=== PATIENT | male | born 1945 | race Caucasian/White ===

== ENCOUNTER → 2017-02-27 | Outpatient (CLI) | payer MEDICARE, OTHER ==
--- NOTE | 2017-02-27 13:35 | MR ---
EXAMINATION TYPE: MR lumbar spine wo con DATE OF EXAM: 02/27/2017 COMPARISON: NONE HISTORY: Sciatica, right side TECHNIQUE: Multiplanar, multisequence images of the lumbar spine were acquired. Multilevel intervertebral disc desiccation is present. Vertebral bodies maintain normal vertebral bod y height and alignment. Bone marrow signal is unremarkable other than T2/T1 hyperintense vertebral pablito dy hemangiomas at L5 and L2 as well as degenerative endplate change and Schmorl's node of the inferio r endplate of L3. Conus medullaris has a normal appearance and terminates at T12-L1. 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 L1-L2: Left eccentric disc bulge is present as well as mild facet arthropathy and ligamentum flavum b uckling. No neural foraminal narrowing or spinal canal stenosis at this level. L2-L3: Annular tear is present within a broad-based and bilobed disc bulge that in combination with f acet arthropathy and ligamentum flavum buckling create mild bilateral neural foraminal narrowing as w ell as mild spinal canal stenosis with buckling of the thecal sac and filum terminale. L3-L4: There is a right lateral disc herniation superimposed on a large broad-based disc bulge. Facet arthropathy and ligamentum flavum buckling contribute to moderate to severe right neural foraminal n arrowing with impression upon the exiting L3 nerve root on the right as well as moderate to severe le ft neural foraminal narrowing also impressing upon the exiting L3 nerve root. There is resultant mode rate spinal canal stenosis with buckling of the thecal sac and filum terminale. L4-L5: Broad-based disc bulge, ligamentum flavum buckling and facet arthropathy creates moderate bila teral neural foraminal narrowing and mild spinal canal stenosis. No discrete herniation. L5-S1: Broad-based disc bulge is seen without neural foraminal narrowing or spinal canal stenosis. Mi ld facet arthropathy. Lumbar segments are intact. No paraspinal masses are identified. Conus medullaris has a normal appe arance. IMPRESSION: 1. Right lateral disc herniation at L3-L4 superimposed on a large broad-based disc bulge creating mod erate to severe bilateral neural foraminal narrowing impressing upon the exiting L3 nerve roots and r esulting in moderate spinal canal stenosis with buckling of the thecal sac and filum terminale. 2. Multilevel degenerative disc disease creating variable degrees of neural foraminal narrowing as de scribed above and mild spinal canal stenosis at L2-L3. Annular tear is also seen at L2-L3. 3. Horseshoe kidneys.
== END | disposition home or self-care (01) ==
LOC: RADMRIMAIN 11:38
PROVIDERS: ATTEND Internal Medicine
DX: M48.06 Spinal stenosis, lumbar region (principal); M99.73 Connective tissue and disc stenosis of intervertebral foramina of lumbar region; M51.16 Intervertebral disc disorders with radiculopathy, lumbar region
CPT/HCPCS: 72148

== ENCOUNTER → 2017-06-28 | Outpatient (CLI) | payer MEDICARE, OTHER ==
[2017-06-28 15:29] LABS: Basophils % (A) 0 %; Eosinophils # (A) 0.2 k/uL (0-0.7); Eosinophils % (A) 2 %; HCT 41.3 % (39.0-53.0); HGB 13.9 gm/dL (13.0-17.5); Lymphocytes # (A) 2.2 k/uL (1.0-4.8); Lymphocytes % (A) 28 %; MCH 30.7 pg (25.0-35.0); MCHC 33.6 g/dL (31.0-37.0); MCV 91.3 fL (80.0-100.0); Mean Platelet Volume 7.8; Monocytes # (A) 0.6 k/uL (0-1.0); Monocytes % (A) 7 %; Neutrophils # (A) 4.7 k/uL (1.3-7.7); Neutrophils % (A) 60 %; Platelet Count 256 k/uL (150-450); RBC 4.52 m/uL (4.30-5.90); RDW 13.6 % (11.5-15.5); WBC 7.9 k/uL (3.8-10.6)
[2017-06-28 15:38] LABS: Appearance,Urine Clear (Clear); Bilirubin,Urine Negative (Negative); Blood,Urine Negative (Negative); Color,Urine Yellow; Glucose,Urine (UA) Negative (Negative); Ketones,Urine Negative (Negative); Leukocyte Esterase,Urine Negative (Negative); Nitrite,Urine Negative (Negative); Partial Thromboplastin Time 22.4 sec (22.0-30.0); Protein,Urine Trace (Negative); Prothrombin Time 9.6 sec (9.0-12.0); Specific Gravity,Urine 1.013 (1.001-1.035); Urobilinogen,Urine <2.0 mg/dL (<2.0)
[2017-06-28 15:42] LABS: Anion Gap 11 mmol/L; Blood Urea Nitrogen 16 mg/dL (9-20); Calcium 10.4 mg/dL (8.4-10.2); Carbon Dioxide 29 mmol/L (22-30); Chloride 102 mmol/L (98-107); Glucose 154 mg/dL (74-99); Potassium 4.9 mmol/L (3.5-5.1); Sodium 142 mmol/L (137-145)
--- NOTE | 2017-06-28 16:12 | XR ---
EXAMINATION TYPE: XR chest 2V DATE OF EXAM: 06/28/2017 COMPARISON: None HISTORY: 71-year-old male presurgical evaluation TECHNIQUE: Frontal and lateral views FINDINGS: The cardiomediastinal silhouette, aorta, and pulmonary vasculature are within normal limits. Some str lisa atelectasis at the peripheral left base. Otherwise, lungs and pleural spaces are clear. IMPRESSION: No acute cardiopulmonary process.
== END | disposition home or self-care (01) ==
LOC: LABPAT 14:54
PROVIDERS: ATTEND Orthopaedic Surgery Orthopaedic Surgery of the Spine
DX: Z01.818 Encounter for other preprocedural examination (principal); G95.9 Disease of spinal cord, unspecified; Z01.812 Encounter for preprocedural laboratory examination
CPT/HCPCS: 36415; 71046; 80048; 81003; 85025; 85610; 85730; 86850; 86900; 86901

== ENCOUNTER 2017-07-07 12:23 | Day surgery (SDC) | payer MEDICARE, OTHER ==
[2017-06-30 09:32] VITALS: BMI 31.3
[~2017-07-07 12:23] MED LIST: BACITRACIN 50,000 UNIT, POLYMYXIN B 500,000 UNIT in SODIUM CHLORIDE 0.9% IRRIGATIO 1,00... IRRIGATION ONE; ceFAZolin IN SWFI 2 GM/20 ML SYRINGE IVP ONE
[2017-07-07] MEDS ORDERED: LIDOCAINE 1% 20 ML VIAL (10MG/ML) FOR IV START INTRADERMA ONE (13:25)
[2017-07-07] MEDS: LACTATED RINGERS 1,000 ML IV SCH (13:25)
[2017-07-07 13:33] LABS: Glucose,Whole Blood 154 mg/dL (75-99)
[2017-07-07 15:33] LABS: Glucose,Whole Blood 130 mg/dL (75-99)
[2017-07-07] MEDS ORDERED: fentaNYL (PF) 50 MCG/ML 2 ML AMP ONE (15:56)
[2017-07-07] MEDS ORDERED: SUCCINYLCHOLINE CHLORIDE 100 MG/5 ML SYR IV ONE (15:56)
[2017-07-07] MEDS ORDERED: MIDAZOLAM 2 MG/2 ML VIAL ONE (15:56)
[2017-07-07] MEDS ORDERED: HYDROmorphone (PF) 1 MG/ML ONE (15:56)
[2017-07-07] MEDS ORDERED: ePHEDrine SULFATE/0.9% NACL/PF 50 MG/5 ML SYRINGE IV ONE (15:56)
[2017-07-07] MEDS ORDERED: KETAMINE 10 MG/ML 20 ML VIAL ONE (15:56)
[2017-07-07] MEDS ORDERED: ONDANSETRON 4 MG/2 ML VIAL ONE (15:56)
[2017-07-07] MEDS ORDERED: ROCURONIUM BROMIDE 10 MG/ML 10 ML VIAL IV ONE (15:56)
[2017-07-07] MEDS ORDERED: NEOSTIGMINE 1 MG/ML 10 ML VIAL ONE (15:56)
[2017-07-07] MEDS ORDERED: PHENYLEPHRINE-0.9% NACL SYG 1 MG/10 ML SYRINGE ONE (15:56)
[2017-07-07] MEDS ORDERED: LIDOCAINE 1% INJ 10MG/ML (20 ML MDV) ONE (15:56)
[2017-07-07] MEDS ORDERED: GLYCOPYRROLATE 0.2 MG/ML 2 ML VIAL ONE (15:56)
[2017-07-07] MEDS ORDERED: PROPOFOL 10 MG/ML 20 ML VIAL IV ONE (15:56)
[2017-07-07] MEDS ORDERED: THROMBIN (BOVINE) 5,000 UNIT VIAL TOPICAL ONE (16:20)
[2017-07-07] MEDS ORDERED: LIDOCAINE 0.5% (PF) 5 MG/ML (50 ML SDV) SQ ONE (16:20)
[2017-07-07] MEDS ORDERED: GELATIN SPONGE,ABSORB (LARGE) 1 EACH SPONGE TOPICAL ONE (16:20)
--- NOTE | 2017-07-07 17:05 | XR ---
PROCEDURE: XR cervical spine 1V DATE AND TIME: 07/07/2017 4:56 PM REFERRING PHYSICIAN: Astrid Rios DO CLINICAL INDICATION: PHH, NEEDLE PLACEMENT TECHNIQUE: Crosstable lateral FINDINGS: Metallic instrument from an anterior approach with tip superimposed over the C3-4 disc inte rspace. C1-C6 are visualized, there is no malalignment or evident acute process. The patient is intub ated. IMPRESSION: Intraoperative crosstable lateral view.
[2017-07-07] MEDS ORDERED: LACTATED RINGERS 1,000 ML IV ONE (17:45)
[2017-07-07] MEDS ORDERED: BENZOCAINE/MENTHOL LOZENG 1 EACH LOZENGE MUCOUS MEM PRN (18:11)
[2017-07-07] MEDS ORDERED: HYDROmorphone 0.5 MG/0.5 ML SYRINGE IVP PRN (18:11)
[2017-07-07] MEDS ORDERED: DIAZEPAM 5 MG TAB PO PRN (18:11)
[2017-07-07] MEDS ORDERED: MAGNESIUM HYDROXIDE 2,400 MG/10 ML CUP PO PRN (18:11)
[2017-07-07] MEDS ORDERED: HYDROcodone/APAP 5-325MG 1 EACH TAB PO PRN (18:12)
[2017-07-07] MEDS ORDERED: ONDANSETRON 4 MG/2 ML VIAL IVP PRN (18:12)
--- NOTE | 2017-07-07 18:25 | P.OP ---
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 Herniated nucleus pulposis C3 4 C4 5 Postoperative Diagnosis: Same Plus presence of autofusion C5 6 Anesthesia: GETA Pathology: none sent Condition: stable Disposition: PACU Description of Procedure: BRIEF OPERATIVE NOTE Preoperative Diagnosis: Cervical myelopathy, cervical myelomalacia, severe cervical stenosis C3 4 C4 5, herniated nucleus pulposis C3 4 C4 5, cervical stenosis C5 6, upper extremity weakness and myeloradiculopathy, gait dysfunction due to myelopathy Postoperative Diagnosis: Same with findings of autofusion at C5 6 Procedure: Anterior cervical decompression with discectomy and fusion at C3 4 and C4 5 Placement of interbody graft C3 4 C4 5 Application of anterior cervical plate at C3 4 5 Exploration of fusion C5 6 with findings of autofusion at C5 6 Surgeon: Dr. Rios Web Services Manager: Niko Coronel is present throughout the entire the case persistence during positioning, dissection, exposure, visualization, and all crucial elements of the case as well as closure. Anesthesia: General anesthesia per Dr. Felix Estimated blood loss: Approximately 50 mL Complications: None apparent Components implanted: K2M [place] anterior cervical plate system with theVikos interbody allograft bone graft and 1 mL of BX bone putty Disposition: To recovery room in good stable condition. OPERATIVE INDICATIONS The patient has had long-standing issues in their neck and upper extremities. His symptoms have severely worsened over the past couple of months to the point where over the past month he has been unable to ambulate and has had severe difficulty with his function and his dexterity at his upper extremities. This is been an acute change for him over the past month. The patient has been through conservative treatment but was having worsening of his symptoms. He was found had numerous changes as a cervical spine but had severe stenosis at C3 4 and C4 5 with large disc herniation and evidence of myelomalacia at his cervical spinal cord behind C3 and 4. He had evidence of some disc protrusion and foraminal stenosis at C5 6. We discussed various treatment options including surgery, and the patient wishes to proceed with surgery We discussed the risk, patient's alternatives and benefits of surgery including but not limited to, risk of bleeding risk of infection, risk of need for further surgery , risk of decreased, loss of motion, muscle function, malunion nonunion, hardware failure, nerve damage, paralysis, heart attack, and . OPERATIVE SUMMARY After discussing all the risks, patient alternatives and benefits at length, the patient elected to proceed with surgical intervention, signed informed consent, and presented for their procedure. The patient was seen and examined in the preoperative holding area and the surgical site was marked. The patient was given antibiotics and brought to the operating room. The patient was positioned on the operating room table in a supine position being careful to pad any bony prominences and pressure points. The patient was sedated and intubated by anesthesia in standard fashion. Once the airway and C- spine were stabilized the patient's arms were padded and tucked at her side, with her shoulders gently taped. The head was placed in a donut pad with the neck in good neutral alignment and position. We were careful to maintain the patient's cervical spine and good neutral alignment and position throughout. The patient was prepped and draped in a normal standard fashion. An appropriate timeout and keystone protocol performed. We were able to proceed with the surgery. The local wound area was infiltrated with local anesthetic. An incision was made transversely approximately 2-1/2 cm over the appropriate levels at C4 5. Dissection was taken down subcutaneously to the level of the platysma which was split in line with its fibers. Dissection was taken with a carotid approach, with the trachea and esophagus medial and the carotid sheath laterally. We dissected down to the anterior surface of the vertebral bodies in 34 C4 5 and C5 6. Intraoperative x-ray was taken which showed a marker at the appropriate level at C3 4. With the appropriate level positively confirmed , we were able to proceed with discectomy at the appropriate levels. At C5 6 there was note of significant bony anterior osteophyte. I explored the area and the osteophyte was indeed bridging and there was no evidence of any motion at C5 6. I evaluated the MRI and imaging closely and correlated with the operative findings which showed evidence of autofusion at C5 6. I was not able to find any motion at C5 6 and then decided to forego the discectomy and fusion at that level. I proceeded with the discectomy and fusion with decompression at C3 4 and C4 5. C3 4 and C4 5 the operative levels were exposed appropriately. The patient had all their twitches back, and there was no evidence of recurrent laryngeal issue. The wound was copiously irrigated and suctioned dry as had been done periodically throughout the case. At the appropriate level/levels, I established an annulotomy with an 11 blade scalpel. A discectomy was performed with a combination of pituitary rongeurs, curettes , a high-speed bur, and Kerrison rongeurs. The posterior longitudinal ligament was taken down as were any posterior osteophytes. At both levels there is found to be very large posterior osteophytes and posterior disc herniation which were removed with the decompression. At C45 there is a very large central hard disc which had herniated and this was removed giving excellent central decompression. I was able to take down the posterior osteophytes as well as the posterior longitudinal ligament and any extruded and herniated fragments. This gave good central and bilateral foraminal decompression. There is no evidence of any dural tear or leak. The endplates were prepared with a high-speed bur. With the endplates in good parallel position, I was able to size for the appropriate size interbody graft. The wound was irrigated and suctioned dry the graft was prepared and malleted into position. It had good alignment and position with the anterior surface flush with the anterior surface of the vertebral bodies. This was done similarly the appropriate levels C3 4 and at C4 5. I felt that the C5 6 level was stable and autofused. With the grafts intact, I was able to measure and contour and appropriate sized plate. The plate was positioned at the midline over the appropriate levels at C3 4 and 5. Screw holes were established with a hand drill and drill guide. Screws were placed in good alignment and position with excellent bony purchase. They were seated under the locking device. The construct was checked and found to be stable. Intraoperative x-ray was taken which showed good alignment and position of the implants at the appropriate levels. There was no evidence of any dural tear or leak. Good hemostasis was maintained. The wound was copiously irrigated and suctioned dry as had been done periodically throughout the case. The platysma was closed with absorbable suture. The subcutaneous tissue was closed. The subcuticular tissue was closed with absorbable suture. The wound was cleaned and dried and dressed appropriately. A soft cervical collar was placed appropriately. The patient was woken up by anesthesia, extubated, transferred back gently to their hospital bed and brought to the recovery room in good stable condition. The patient will be admitted to the hospital for appropriate postoperative care , medical management and monitoring. We will continue to follow them closely about the postoperative course.
[2017-07-07] MEDS: HYDROmorphone 0.5 MG/0.5 ML SYRINGE IVP PRN ×4 (18:41→19:08)
[2017-07-07 18:51] LABS: Glucose,Whole Blood 145 mg/dL (75-99)
--- NOTE | 2017-07-07 19:16 | XR ---
PROCEDURE: XR cervical spine 1V DATE AND TIME: 07/07/2017 6:02 PM REFERRING PHYSICIAN: Astrid Rios DO CLINICAL INDICATION: PHH, hardware placement TECHNIQUE: Crosstable lateral view. COMPARISON: 07/07/2017 crosstable lateral view obtained at 4:53 PM FINDINGS: C1-C6 are visualized. Anterior C3, C4 and C5 fusion hardware has been applied since the prior study, with interbody fusion changes evident. There is no malalignment. No unexpected radiopaque foreign bodies. Patient is intubated. IMPRESSION: Postsurgical crosstable lateral view.
[2017-07-07 20:17] LABS: Glucose,Whole Blood 192 mg/dL (75-99)
[2017-07-07] MEDS: TAMSULOSIN 0.4 MG CAP.ER.24H PO SCH (20:54)
[2017-07-07] MEDS: DULoxetine HCL 60 MG CAPSULE.DR PO SCH (20:54)
[2017-07-07] MEDS: METOPROLOL TARTRATE 50 MG TAB PO SCH (20:57)
[2017-07-07] MEDS ORDERED: LISINOPRIL 20 MG TAB PO SCH (21:00)
[2017-07-07] MEDS ORDERED: ATORVASTATIN 10 MG TAB PO SCH (21:00)
[2017-07-07] MEDS ORDERED: FINASTERIDE 5 MG TAB PO SCH (21:00)
[2017-07-07] MEDS ORDERED: ALLOPURINOL 300 MG TAB PO SCH (21:00)
[2017-07-07] MEDS ORDERED: NON-FORMULARY DRUG (Turmeric Root Extract [Turmeric] 500 MG) PO SCH (21:00)
[2017-07-07 22:08] VITALS: RESP 18
[2017-07-07] MEDS: HYDROmorphone 2 MG/ML 1 ML SYRINGE IVP PRN (22:12)
[2017-07-07] MEDS: INSULIN ASPART 100 UNIT/ML 1 ML 10 ML VIAL SQ SCH (22:12)
[2017-07-07] MEDS: SODIUM CHLORIDE 0.9% 1,000 ML IV SCH (22:35)
[2017-07-08] MEDS: ceFAZolin IN SWFI 2 GM/20 ML SYRINGE IVP SCH ×2 (00:25→08:35)
[2017-07-08] MEDS: LACTATED RINGERS 1,000 ML IV SCH (00:30)
[2017-07-08] MEDS: HYDROcodone/APAP 7.5-325MG 1 EACH TAB PO PRN ×2 (03:22→11:28)
[2017-07-08] MEDS: HYDROmorphone 2 MG/ML 1 ML SYRINGE IVP PRN (05:01)
[2017-07-08] MEDS ORDERED: LEVOTHYROXINE 112 MCG TAB PO SCH (06:30)
[2017-07-08 07:39] LABS: Glucose,Whole Blood 267 mg/dL (75-99)
[2017-07-08] MEDS: DULoxetine HCL 60 MG CAPSULE.DR PO SCH (08:17)
[2017-07-08] MEDS: METOPROLOL TARTRATE 50 MG TAB PO SCH (08:17)
[2017-07-08] MEDS: TAMSULOSIN 0.4 MG CAP.ER.24H PO SCH (08:18)
[2017-07-08] MEDS: INSULIN ASPART 100 UNIT/ML 1 ML 10 ML VIAL SQ SCH ×4 (08:18→12:52)
[2017-07-08] MEDS: SODIUM CHLORIDE 0.9% 1,000 ML IV SCH (08:33)
[2017-07-08 08:36] VITALS: BP 141/69; PULSE 88; TEMP 98.4
--- NOTE | 2017-07-08 08:36 | P.DS ---
Providers Date of admission: 07/07/17 Attending physician: Astrid Rios Primary care physician: [facility] Course: The patient presented on the day of admission as per his operative note. He had severe cervical stenosis at C3 4 and C4 5 with cervical myelopathy and myelomalacia causing a myeloradiculopathy with upper extremity weakness and lower extremity dysfunction was the [place]. He feels his upper extremity had some improvement already with his surgery he feels his right hand is doing much better and his left hand feels somewhat better though he still has weakness particularly at his left upper extremity. He has been out of bed and still feels somewhat unsteady on his feet as he did prior to surgery but he has not had any worsening. He is able to swallow soft foods Physical Exam The incision site is clean dry and intact. There is no erythema no drainage. There is no purulence no evidence of infection. His incision sites clean and dry. There is no skin and swelling. Abdomen soft and nontender. Chest has good excursion with deep inspiration and expiration. The patient has active and passive range of motion intact at the upper and lower extremities. There is no acute worsening in neurologic status. He feels his upper extremity function is improved particularly on the right and had his hands. Hospital Course Postoperative day #1 status post anterior cervical discectomy and fusion C3 4 C4 5 for severe cervical stenosis with disc herniation and cervical myelopathy and myelomalacia. Patient seems to be improving well already but certainly this has a long course of potential healing. The patient has been making good progress postoperatively. His hands are already made some improvement with her function. They have completed the prophylactic antibiotics without any signs or symptoms of infection. The patient has been able to advance their diet, and is tolerating diet adequately. The pain was initially controlled with IV medications and is now controlled appropriately with oral medications. The patient has been able to increase their mobilization. The patient has progressed appropriately. I think they are in good stable condition for discharge today. They will be sent home with appropriate prescriptions. I answered their questions to the best of my ability in a language that they can understand and they are agreeable with the plan. They will follow up as directed in approximately 2 weeks or sooner if he is having any problems. Patient Condition at Discharge: Good Plan - Discharge Summary Discharge Rx Participant: Yes New Discharge Prescriptions: No Action Ascorbic Acid [Vitamin C] 500 mg PO DAILY Tamsulosin HCl [Flomax] 0.4 mg PO BID Cholecalciferol [Vitamin D3] 1,000 unit PO DAILY Metoprolol Tartrate [Lopressor] 50 mg PO BID Lovastatin [Mevacor] 20 mg PO HS Lisinopril [Zestril] 40 mg PO HS Levothyroxine Sodium [Synthroid] 112 mcg PO DAILY Insulin Detemir [Levemir Flextouch] 45 units SQ DAILY Insulin Aspart [NovoLOG Flexpen] 15 units SQ TID-W/MEALS HYDROcodone/APAP 7.5-325MG [[place] 7.5-325] 1 tab PO Q6HR PRN PRN Reason: Pain Finasteride [Proscar] 5 mg PO HS DULoxetine HCL [Cymbalta] 60 mg PO BID Allopurinol [Zyloprim] 300 mg PO HS Turmeric Root Extract [Turmeric] 500 mg PO BID Liraglutide [Victoza 3-Darinel] 1.2 mg SQ DAILY Discharge Medication List Allopurinol [Zyloprim] 300 mg PO HS 05/17/17 [History] Ascorbic Acid [Vitamin C] 500 mg PO DAILY 05/17/17 [History] Cholecalciferol [Vitamin D3] 1,000 unit PO DAILY 05/17/17 [History] DULoxetine HCL [Cymbalta] 60 mg PO BID 05/17/17 [History] Finasteride [Proscar] 5 mg PO HS 05/17/17 [History] HYDROcodone/APAP 7.5-325MG [[place] 7.5-325] 1 tab PO Q6HR PRN 05/17/17 [History] Insulin Aspart [NovoLOG Flexpen] 15 units SQ TID-W/MEALS 05/17/17 [History] Insulin Detemir [Levemir Flextouch] 45 units SQ DAILY 05/17/17 [History] Levothyroxine Sodium [Synthroid] 112 mcg PO DAILY 05/17/17 [History] Lisinopril [Zestril] 40 mg PO HS 05/17/17 [History] Lovastatin [Mevacor] 20 mg PO HS 05/17/17 [History] Metoprolol Tartrate [Lopressor] 50 mg PO BID 05/17/17 [History] Tamsulosin HCl [Flomax] 0.4 mg PO BID 05/17/17 [History] Turmeric Root Extract [Turmeric] 500 mg PO BID 05/17/17 [History] Liraglutide [Victoza 3-Darinel] 1.2 mg SQ DAILY 06/30/17 [History]
[2017-07-08] MEDS ORDERED: INSULIN DETEMIR 100 UNIT/ML 10 ML VIAL SQ SCH (09:00)
[2017-07-08] MEDS ORDERED: Liraglutide [Victoza 3-Pak] 1.2 MG SQ SCH (09:00)
[2017-07-08] MEDS ORDERED: CHOLECALCIFEROL 1,000 UNIT TAB PO SCH (12:00)
[2017-07-08] MEDS ORDERED: ASCORBIC ACID 500 MG TAB PO SCH (12:00)
[2017-07-08 12:06] LABS: Glucose,Whole Blood 151 mg/dL (75-99)
== END 2017-07-08 15:02 | disposition home or self-care (01) ==
LOC: OR 12:23 → 5MS5E 18:56 → OR 07-08 15:02
PROVIDERS: ATTEND Orthopaedic Surgery Orthopaedic Surgery of the Spine
DX: M50.01 Cervical disc disorder with myelopathy, high cervical region (principal); M50.121 Cervical disc disorder at C4-C5 level with radiculopathy; G95.89 Other specified diseases of spinal cord; M25.78 Osteophyte, vertebrae; M48.02 Spinal stenosis, cervical region; E11.40 Type 2 diabetes mellitus with diabetic neuropathy, unspecified; Z79.4 Long term (current) use of insulin; I10 Essential (primary) hypertension; E78.5 Hyperlipidemia, unspecified; E03.9 Hypothyroidism, unspecified; M10.9 Gout, unspecified; G25.81 Restless legs syndrome; Z85.828 Personal history of other malignant neoplasm of skin; Z79.899 Other long term (current) drug therapy; Z87.891 Personal history of nicotine dependence; N40.0 Benign prostatic hyperplasia without lower urinary tract symptoms; Z88.1 Allergy status to other antibiotic agents; Z88.8 Allergy status to other drugs, medicaments and biological substances
CPT/HCPCS: 22551; 22552; 20931; 72020; C1713 ×2; C1762 ×2; S0138; J2250; J1170 ×4; J2710; J2405; J2001 ×2; J3010; J2370; J0330; J2704; J0690 ×2; 86850; 86900; 86901

== ENCOUNTER → 2020-01-15 | Outpatient (CLI) | payer MEDICARE, OTHER ==
--- NOTE | 2020-01-15 14:49 | CT ---
EXAMINATION TYPE: CT sinus wo con DATE OF EXAM: 01/15/2020 COMPARISON: 03/03/2016 HISTORY: Chronic sinusitis. CT DLP: 698.[address] of the paranasal sinuses was performed in the axial and coronal planes. Bone and soft tissue settings are submitted. The paranasal sinuses demonstrate normal aeration and development. There is now near complete opacification of the left maxillary sinus with obstruction of the left ost iomeatal unit. Right maxillary sinus, ethmoid air cells sphenoid sinus and frontal sinuses are all we ll aerated. The nasal septum is midline. No bony destructive changes are seen within the field of view. IMPRESSION: There is now near complete opacification of the left maxillary sinus with obstruction of the left ost iomeatal unit.
== END | disposition home or self-care (01) ==
LOC: RADCTMAIN 14:05
PROVIDERS: ATTEND Otolaryngology
DX: J32.9 Chronic sinusitis, unspecified (principal)
CPT/HCPCS: 70486

== ENCOUNTER 2020-01-21 18:36 | Emergency (ER) | payer MEDICARE, OTHER ==
[2020-01-21] MEDS ORDERED: SODIUM CHLORIDE 0.9% 1,000 ML IV STA (18:54)
--- NOTE | 2020-01-21 18:55 | ED ---
Nausea/Vomiting/Diarrhea HPI - General Chief complaint: Nausea/Vomiting/Diarrhea Stated complaint: diabetic issue, dehydration Time Seen by Provider: 01/21/20 18:47 Source: patient, RN notes reviewed, old records reviewed Mode of arrival: wheelchair Limitations: no limitations - History of Present Illness Initial comments: This is a 74-year-old male DF for evaluation of dizziness, not feeling well history of diabetes high blood pressure and high cholesterol. Multiple medical comorbidities. Patient states his throat the day felt more weak, dehydrated, concern for maybe being overheated secondary to his air-conditioning being broke. No headache chest pain or shortness of breath MD complaint: nausea, other (Myalgias) -: hour(s) Associated Abdominal Pain: No Radiation: none Severity: mild Severity scale (1-10): 3 Quality: cramping Consistency: now resolved Improves with: none Worsens with: none Associated Symptoms: myalgias, weakness - Related Data Home Medications Medication Instructions Recorded Confirmed Ascorbic Acid [Vitamin C] 500 mg PO DAILY 05/17/17 07/07/17 Cholecalciferol [Vitamin D3] 1,000 unit PO DAILY 05/17/17 07/07/17 DULoxetine HCL [Cymbalta] 60 mg PO BID 05/17/17 07/07/17 Finasteride [Proscar] 5 mg PO HS 05/17/17 07/07/17 HYDROcodone/APAP 7.5-325MG [Spencer 1 tab PO Q6HR PRN 05/17/17 07/07/17 7.5-325] Insulin Aspart [NovoLOG Flexpen] 15 units SQ TID-W/MEALS 05/17/17 07/07/17 Insulin Detemir [Levemir Flextouch] 45 units SQ DAILY 05/17/17 07/07/17 Levothyroxine Sodium [Synthroid] 112 mcg PO DAILY 05/17/17 07/07/17 Lovastatin [Mevacor] 20 mg PO HS 05/17/17 07/07/17 Metoprolol Tartrate [Lopressor] 50 mg PO BID 05/17/17 07/07/17 Tamsulosin HCl [Flomax] 0.4 mg PO BID 05/17/17 07/07/17 Turmeric Root Extract [Turmeric] 500 mg PO BID 05/17/17 07/07/17 allopurinoL [Zyloprim] 300 mg PO HS 05/17/17 07/07/17 lisinopriL [Zestril] 40 mg PO HS 05/17/17 07/07/17 Liraglutide [Victoza 3-Darinel] 1.2 mg SQ DAILY 06/30/17 07/07/17 Previous Rx's Medication Instructions Recorded HYDROcodone/APAP 7.5-325MG [Spencer 1 tab PO Q6HR PRN #90 tab 07/08/17 7.5-325] Allergies Allergy/AdvReac Type Severity Reaction Status Date / Time enalaprilat [From Vasotec] Allergy felt weak, Verified 01/21/20 18:47 couldn't talk erythromycin base AdvReac Nausea & Verified 01/21/20 18:47 [From Erythrocin] Vomiting Review of Systems ROS Statement: Those systems with pertinent positive or pertinent negative responses have been documented in the HPI. ROS Other: All systems not noted in ROS Statement are negative. Past Medical History Past Medical History: Cancer, Diabetes Mellitus, Hyperlipidemia, Hypertension, Prostate Disorder, Thyroid Disorder Additional Past Medical History / Comment(s): sciatia, skin cancer, past sinusits, cervical myelopathy History of Any Multi-Drug Resistant Organisms: None Reported Past Surgical History: No Surgical Hx Reported Additional Past Surgical History / Comment(s): sinus sx. cancer removed lt ear. colonoscopy 07-07-17 anterior cervical decompression/discectomy/fusion c3-4, c4-5 Past Psychological History: No Psychological Hx Reported Smoking Status: Never smoker Past Alcohol Use History: None Reported Past Drug Use History: None Reported - Past Family History Father Additional Family Medical History / Comment(s): aoric aneurysm General Exam Limitations: no limitations General appearance: alert, in no apparent distress Head exam: Present: atraumatic, normocephalic, normal inspection Eye exam: Present: normal appearance, PERRL, EOMI. Absent: scleral icterus, conjunctival injection, periorbital swelling ENT exam: Present: normal exam, mucous membranes moist Neck exam: Present: normal inspection. Absent: tenderness, meningismus, lymphadenopathy Respiratory exam: Present: normal lung sounds bilaterally. Absent: respiratory distress, wheezes, rales, rhonchi, stridor Cardiovascular Exam: Present: regular rate, normal rhythm, normal heart sounds. Absent: systolic murmur, diastolic murmur, rubs, gallop, clicks GI/Abdominal exam: Present: soft, normal bowel sounds. Absent: distended, tenderness, guarding, rebound, rigid Extremities exam: Present: normal inspection, full ROM, normal capillary refill. Absent: tenderness, pedal edema, joint swelling, calf tenderness Back exam: Present: normal inspection Neurological exam: Present: alert, oriented X3, CN II-XII intact Psychiatric exam: Present: normal affect, normal mood Skin exam: Present: warm, dry, intact, normal color. Absent: rash Course Vital Signs 01/21/20 01/21/20 01/21/20 18:44 19:33 20:42 Temperature 98.4 F 98.2 F Pulse Rate 61 55 L 66 Respiratory 16 20 16 Rate Blood Pressure 124/70 125/93 143/65 O2 Sat by Pulse 99 98 96 Oximetry - Reevaluation(s) Reevaluation #1: Medical records reviewed Patient is no distress has no complaints here in the ER Spoke with patient and patient's son regarding findings, questions answered Patient feels good for discharge Medical Decision Making - Medical Decision Making 74 male DF for evaluation of not exactly feeling well states he may minute co ndition condition his house no acute cause found here in the ER feeling better with hydration and can be discharged home - Lab Data Result diagrams: 01/21/20 19:20 01/21/20 19:20 Lab Results 01/21/20 01/21/20 01/21/20 Range/Units 18:57 19:20 19:20 WBC 11.8 H (3.8-10.6) k/uL RBC 4.68 (4.30-5.90) m/uL Hgb 13.8 (13.0-17.5) gm/dL Hct 41.9 (39.0-53.0) % MCV 89.4 (80.0-100.0) fL MCH 29.4 (25.0-35.0) pg MCHC 32.9 (31.0-37.0) g/dL RDW 14.1 (11.5-15.5) % Plt Count 216 (150-450) k/uL Neutrophils % 70 % Lymphocytes % 20 % Monocytes % 6 % Eosinophils % 1 % Basophils % 1 % Neutrophils # 8.2 H (1.3-7.7) k/uL Lymphocytes # 2.4 (1.0-4.8) k/uL Monocytes # 0.7 (0-1.0) k/uL Eosinophils # 0.2 (0-0.7) k/uL Basophils # 0.1 (0-0.2) k/uL PT 9.8 (9.0-12.0) sec INR 0.9 (<1.2) APTT 22.9 (22.0-30.0) sec Sodium (137-145) mmol/L Potassium (3.5-5.1) mmol/L Chloride (98-107) mmol/L Carbon Dioxide (22-30) mmol/L Anion Gap mmol/L BUN (9-20) mg/dL Creatinine (0.66-1.25) mg/dL Est GFR (CKD-EPI)AfAm (>60 ml/min/1.73 sqM) Est GFR (CKD-EPI)NonAf (>60 ml/min/1.73 sqM) Glucose (74-99) mg/dL POC Glucose (mg/dL) 134 H (75-99) mg/dL POC Glu Tobacco Packer ID Niya, Vannessa Calcium (8.4-10.2) mg/dL Phosphorus (2.5-4.5) mg/dL Magnesium (1.6-2.3) mg/dL Total Bilirubin (0.2-1.3) mg/dL AST (17-59) U/L ALT (4-49) U/L Alkaline Phosphatase (38-126) U/L Troponin I (0.000-0.034) ng/mL Total Protein (6.3-8.2) g/dL Albumin (3.5-5.0) g/dL Urine Color Urine Appearance (Clear) Urine pH (5.0-8.0) Ur Specific [place] (1.001-1.035) Urine Protein (Negative) Urine Glucose (UA) (Negative) Urine Ketones (Negative) Urine Blood (Negative) Urine Nitrite (Negative) Urine Bilirubin (Negative) Urine Urobilinogen (<2.0) mg/dL Ur Leukocyte Esterase (Negative) Urine RBC (0-5) /hpf Urine WBC (0-5) /hpf Ur Squamous Epith Cells (0-4) /hpf Amorphous Sediment (None) /hpf Urine Bacteria (None) /hpf Hyaline Casts (0-2) /lpf Urine Mucus (None) /hpf Urine Sperm (None) /hpf 01/21/20 01/21/20 01/21/20 Range/Units 19:20 19:20 19:46 WBC (3.8-10.6) k/uL RBC (4.30-5.90) m/uL Hgb (13.0-17.5) gm/dL Hct (39.0-53.0) % MCV (80.0-100.0) fL MCH (25.0-35.0) pg MCHC (31.0-37.0) g/dL RDW (11.5-15.5) % Plt Count (150-450) k/uL Neutrophils % % Lymphocytes % % Monocytes % % Eosinophils % % Basophils % % Neutrophils # (1.3-7.7) k/uL Lymphocytes # (1.0-4.8) k/uL Monocytes # (0-1.0) k/uL Eosinophils # (0-0.7) k/uL Basophils # (0-0.2) k/uL PT (9.0-12.0) sec INR (<1.2) APTT (22.0-30.0) sec Sodium 135 L (137-145) mmol/L Potassium 4.1 (3.5-5.1) mmol/L Chloride 103 (98-107) mmol/L Carbon Dioxide 23 (22-30) mmol/L Anion Gap 9 mmol/L BUN 32 H (9-20) mg/dL Creatinine 1.12 (0.66-1.25) mg/dL Est GFR (CKD-EPI)AfAm 76 (>60 ml/min/1.73 sqM) Est GFR (CKD-EPI)NonAf 66 (>60 ml/min/1.73 sqM) Glucose 120 H (74-99) mg/dL POC Glucose (mg/dL) (75-99) mg/dL POC Glu Tobacco Packer ID Calcium 9.8 (8.4-10.2) mg/dL Phosphorus 2.4 L (2.5-4.5) mg/dL Magnesium 2.0 (1.6-2.3) mg/dL Total Bilirubin 0.7 (0.2-1.3) mg/dL AST 29 (17-59) U/L ALT 24 (4-49) U/L Alkaline Phosphatase 72 (38-126) U/L Troponin I <0.012 (0.000-0.034) ng/mL Total Protein 7.0 (6.3-8.2) g/dL Albumin 4.2 (3.5-5.0) g/dL Urine Color Yellow Urine Appearance Cloudy (Clear) Urine pH 7.0 (5.0-8.0) Ur Specific [place] 1.015 (1.001-1.035) Urine Protein 1+ H (Negative) Urine Glucose (UA) Negative (Negative) Urine Ketones Trace H (Negative) Urine Blood Negative (Negative) Urine Nitrite Negative (Negative) Urine Bilirubin Negative (Negative) Urine Urobilinogen <2.0 (<2.0) mg/dL Ur Leukocyte Esterase Small H (Negative) Urine RBC 5 (0-5) /hpf Urine WBC 10 H (0-5) /hpf Ur Squamous Epith Cells 2 (0-4) /hpf Amorphous Sediment Rare H (None) /hpf Urine Bacteria Many H (None) /hpf Hyaline Casts 3 H (0-2) /lpf Urine Mucus Rare H (None) /hpf Urine Sperm Many H (None) /hpf - EKG Data -: EKG Interpreted by Me (EKG is sinus bradycardia 55. 158 QRS 78 QTc 407) Disposition Clinical Impression: Dehydration, Weakness Disposition: HOME SELF-CARE Condition: Good Instructions (If sedation given, give patient instructions): Acute Nausea and Vomiting (ED), Weakness (ED) Is patient prescribed a controlled substance at d/c from ED?: No Referrals: Ishan Valladares MD [Primary Care Provider] - 1-2 days
[2020-01-21 19:02] LABS: Glucose,Whole Blood 134 mg/dL (75-99)
[2020-01-21 19:28] LABS: Basophils # (A) 0.1 k/uL (0-0.2); Basophils % (A) 1 %; Eosinophils # (A) 0.2 k/uL (0-0.7); Eosinophils % (A) 1 %; HCT 41.9 % (39.0-53.0); HGB 13.8 gm/dL (13.0-17.5); Lymphocytes # (A) 2.4 k/uL (1.0-4.8); Lymphocytes % (A) 20 %; MCH 29.4 pg (25.0-35.0); MCHC 32.9 g/dL (31.0-37.0); MCV 89.4 fL (80.0-100.0); Mean Platelet Volume 8.5; Monocytes # (A) 0.7 k/uL (0-1.0); Monocytes % (A) 6 %; Neutrophils # (A) 8.2 k/uL (1.3-7.7); Neutrophils % (A) 70 %; Platelet Count 216 k/uL (150-450); RBC 4.68 m/uL (4.30-5.90); RDW 14.1 % (11.5-15.5); WBC 11.8 k/uL (3.8-10.6)
[2020-01-21 19:40] LABS: Albumin 4.2 g/dL (3.5-5.0); Calcium 9.8 mg/dL (8.4-10.2); Phosphorus 2.4 mg/dL (2.5-4.5); Potassium 4.1 mmol/L (3.5-5.1); Total Bilirubin 0.7 mg/dL (0.2-1.3)
[2020-01-21 19:44] LABS: INR 0.9 (<1.2); Partial Thromboplastin Time 22.9 sec (22.0-30.0); Prothrombin Time 9.8 sec (9.0-12.0)
[2020-01-21 20:12] LABS: Amorphous Sediment,Urine Rare /hpf; Appearance,Urine Cloudy (Clear); Bacteria,Urine Many /hpf; Bilirubin,Urine Negative (Negative); Blood,Urine Negative (Negative); Color,Urine Yellow; Glucose,Urine (UA) Negative (Negative); Hyaline Casts,Urine 3 /lpf (0-2); Ketones,Urine Trace (Negative); Leukocyte Esterase,Urine Small (Negative); Mucus,Urine Rare /hpf; Nitrite,Urine Negative (Negative); Protein,Urine 1+ (Negative); RBC,Urine 5 /hpf (0-5); Specific Gravity,Urine 1.015 (1.001-1.035); Sperm,Urine Many /hpf; Squamous Epithelial Cell,Urine 2 /hpf (0-4); Urobilinogen,Urine <2.0 mg/dL (<2.0); WBC,Urine 10 /hpf (0-5)
[2020-01-21 20:44] VITALS: BP 143/65; PULSE 66; RESP 16; TEMP 98.2
== END 2020-01-21 20:48 | disposition home or self-care (01) ==
LOC: EC 18:36
DX: E86.0 Dehydration (principal); R53.1 Weakness; I10 Essential (primary) hypertension; E11.9 Type 2 diabetes mellitus without complications; E07.9 Disorder of thyroid, unspecified; E78.5 Hyperlipidemia, unspecified; N42.9 Disorder of prostate, unspecified; Z79.4 Long term (current) use of insulin; Z79.890 Hormone replacement therapy; Z79.899 Other long term (current) drug therapy; Z79.84 Long term (current) use of oral hypoglycemic drugs; Z88.1 Allergy status to other antibiotic agents; Z88.8 Allergy status to other drugs, medicaments and biological substances; Z85.828 Personal history of other malignant neoplasm of skin
CPT/HCPCS: 36415; 80053; 81001; 83735; 84100; 84484; 85025; 85610; 85730; 93005; 96360; 99284

== ENCOUNTER → 2020-03-11 | Outpatient (CLI) | payer MEDICARE, OTHER ==
--- NOTE | 2020-03-11 12:03 | FL ---
EXAMINATION TYPE: FL barium swallow w video DATE OF EXAM: 03/11/2020 MODIFIED SWALLOW / DEGLUTITION STUDY CLINICAL HISTORY: Dysphagia. History of neck surgery 2018. TECHNIQUE: Deglutition study is performed utilizing thin liquid barium, honey and nectar thick liqui d barium, barium thick pudding, and barium coated cracker. Total of 128 seconds fluoroscopic time. Th ere were 0 by images saved to PACS. COMPARISON: None. FINDINGS: The oral and pharyngeal phases show satisfactory initiation and propagation with all modali ties tested. Satisfactory mastication is seen with solid modalities tested. There is no evidence of penetration or aspiration with any modality tested. There is anterior fusion plate C3-C5 level with a rtificial disc material. Prominent posterior cricopharyngeal bar noted at roughly C6 level. Mild resi duals just above this noted. Moderate residuals with more viscous modalities filling the vallecula. IMPRESSION: No penetration or aspiration observed. Please refer to speech therapist notes for furth er details if necessary.
== END | disposition home or self-care (01) ==
LOC: RADFLMAIN 11:23
PROVIDERS: ATTEND Otolaryngology
DX: R13.10 Dysphagia, unspecified (principal)
CPT/HCPCS: 74230

== ENCOUNTER → 2021-02-13 | Outpatient (CLI) | payer MEDICARE, OTHER ==
--- NOTE | 2021-02-14 07:16 | CT ---
EXAMINATION TYPE: CT sinus wo con DATE OF EXAM: 02/13/2021 COMPARISON: Prior sinus CT January 15, 2020 HISTORY: Chronic sinusitis. CT DLP: 674 mGycm. Automated Exposure Control for Dose Reduction was Utilized. TECHNIQUE: CT scan of the sinuses is performed without contrast, axial images are obtained, coronal r eformatted images are also reviewed. FINDINGS: Persistent near complete opacification of the left maxillary sinus. Mild mucosal thickening involving the ethmoid sinuses bilaterally greatest anteriorly is redemonstrated. Remainder paranasa l sinuses remain clear without suspicious opacification or air-fluid levels. Rounded 10 mm density ri ght frontal sinus consistent with a benign osteoma is redemonstrated. The ostiomeatal complex remains patent bilaterally on coronal image 32. Visualized portion of mastoid air cells show no abnormal opacification. The globes are intact bilate rally. Patchy right sided cerumen. Visualized portion of brain parenchyma redemonstrates mild diffus e age-related cerebral atrophy and chronic small vessel ischemic change. IMPRESSION: Persistent or recurrent left acute maxillary sinus disease. No significant change from pr ior.
== END | disposition home or self-care (01) ==
LOC: RADCTMAIN 18:25
PROVIDERS: ATTEND Otolaryngology
DX: J32.0 Chronic maxillary sinusitis (principal)
CPT/HCPCS: 70486

== ENCOUNTER 2021-02-17 04:02 | Inpatient (IN) | payer MEDICARE, OTHER ==
[2021-02-17] MEDS ORDERED: SODIUM CHLORIDE 0.9% 1,000 ML IV STA (04:19)
--- NOTE | 2021-02-17 04:19 | ED ---
Weakness HPI - General Chief complaint: Weakness Stated complaint: Weakness Time Seen by Provider: 02/17/21 04:19 Source: patient, EMS, RN notes reviewed, old records reviewed Mode of arrival: EMS Limitations: no limitations - History of Present Illness MD Complaint: generalized weakness, lack of energy -: days(s) Location: generalized Severity: moderate Severity scale (1-10): 4 Quality: tingling, aching Consistency: intermittent Improves with: none Worsens with: none Context: recent illness, history of similar Associated Symptoms: loss of appetite, nausea/vomiting, myalgias - Related Data Home Medications Medication Instructions Recorded Confirmed Cholecalciferol [Vitamin D3 (25 2,000 unit PO DAILY 05/17/17 02/17/21 Mcg = 1000 Iu)] Finasteride [Proscar] 5 mg PO DAILY 05/17/17 02/17/21 Insulin Detemir [Levemir Flextouch 40 units SQ BID 05/17/17 02/17/21 Pen] Levothyroxine Sodium [Synthroid] 112 mcg PO DAILY 05/17/17 02/17/21 Lovastatin [Mevacor] 20 mg PO HS 05/17/17 02/17/21 Metoprolol Tartrate [Lopressor] 50 mg PO BID 05/17/17 02/17/21 allopurinoL [Zyloprim] 300 mg PO HS 05/17/17 02/17/21 lisinopriL [Zestril] 40 mg PO DAILY 05/17/17 02/17/21 Hydrochlorothiazide 12.5 mg PO Q48H 02/17/21 02/17/21 [hydroCHLOROthiazide] Pramipexole [Mirapex] 1 mg PO BID 02/17/21 02/17/21 Sertraline [Zoloft] 50 mg PO DAILY 02/17/21 02/17/21 Thiamine [Vitamin B-1] 100 mg PO DAILY 02/17/21 02/17/21 Previous Rx's Medication Instructions Recorded Acyclovir [Zovirax] 800 mg PO 5XD 5 Days #5 tab 02/20/21 Gabapentin [Neurontin] 300 mg PO DAILY #2 cap 02/20/21 Gabapentin [Neurontin] 300 mg PO DAILY #2 cap 02/20/21 HYDROcodone/APAP 7.5-325MG [[place] 1 each PO Q6HR PRN 2 Days #8 tab 02/20/21 7.5-325] HYDROcodone/APAP 7.5-325MG [[place] 1 tab PO Q6HR PRN 2 Days #8 tab 02/20/21 7.5-325] amLODIPine [Norvasc] 5 mg PO HS #30 tab 02/20/21 Allergies Allergy/AdvReac Type Severity Reaction Status Date / Time enalaprilat [From Vasotec] Allergy felt weak, Verified 02/17/21 09:01 couldn't talk erythromycin base AdvReac Nausea & Verified 02/17/21 09:01 [From Erythrocin] Vomiting Review of Systems ROS Statement: Those systems with pertinent positive or pertinent negative responses have been documented in the HPI. ROS Other: All systems not noted in ROS Statement are negative. Past Medical History Past Medical History: Cancer, Diabetes Mellitus, Hyperlipidemia, Hypertension, Prostate Disorder, Thyroid Disorder Additional Past Medical History / Comment(s): sciatia, skin cancer, past sinusits, cervical myelopathy History of Any Multi-Drug Resistant Organisms: None Reported Past Surgical History: No Surgical Hx Reported Additional Past Surgical History / Comment(s): sinus sx. cancer removed lt ear. colonoscopy 07-07-17 anterior cervical decompression/discectomy/fusion c3-4, c4-5 Past Psychological History: No Psychological Hx Reported Smoking Status: Never smoker Past Alcohol Use History: None Reported Past Drug Use History: None Reported - Past Family History Father Additional Family Medical History / Comment(s): aoric aneurysm General Exam Limitations: no limitations General appearance: alert, in no apparent distress Head exam: Present: atraumatic, normocephalic, normal inspection Eye exam: Present: normal appearance, PERRL, EOMI. Absent: scleral icterus, conjunctival injection, periorbital swelling ENT exam: Present: normal exam, mucous membranes moist Neck exam: Present: normal inspection. Absent: tenderness, meningismus, lymphadenopathy Respiratory exam: Present: normal lung sounds bilaterally. Absent: respiratory distress, wheezes, rales, rhonchi, stridor Cardiovascular Exam: Present: regular rate, normal rhythm, normal heart sounds. Absent: systolic murmur, diastolic murmur, rubs, gallop, clicks GI/Abdominal exam: Present: soft, normal bowel sounds. Absent: distended, tenderness, guarding, rebound, rigid Extremities exam: Present: normal inspection, full ROM, normal capillary refill. Absent: tenderness, pedal edema, joint swelling, calf tenderness Back exam: Present: normal inspection Neurological exam: Present: alert, oriented X3, CN II-XII intact Psychiatric exam: Present: normal affect, normal mood Skin exam: Present: warm, dry, intact, normal color. Absent: rash Course Vital Signs 02/17/21 02/17/21 02/17/21 04:03 05:21 06:51 Temperature 98.5 F 98.0 F Pulse Rate 68 72 62 Respiratory 16 18 18 Rate Blood Pressure 193/90 170/80 160/68 O2 Sat by Pulse 93 L 95 94 L Oximetry - Reevaluation(s) Reevaluation #1: 02/18/21 Medical record is reviewed Patient symptoms are improved here in the emergency department Patient is informed results and questions answered Patient is in no acute distress EKG Findings - EKG Comments: EKG Findings:: EKG shows sinus rhythm 66 NV 164 QRS 74 QTc 450 Medical Decision Making - Lab Data Result diagrams: 02/20/21 07:32 02/20/21 07:32 Lab Results 02/17/21 02/17/21 02/17/21 Range/Units 04:28 04:28 04:28 WBC 14.3 H (3.8-10.6) k/uL RBC 4.30 (4.30-5.90) m/uL Hgb 13.1 (13.0-17.5) gm/dL Hct 38.7 L (39.0-53.0) % MCV 90.0 (80.0-100.0) fL MCH 30.4 (25.0-35.0) pg MCHC 33.8 (31.0-37.0) g/dL RDW 14.2 (11.5-15.5) % Plt Count 214 (150-450) k/uL MPV 9.5 Immature Gran % (Auto) % Absolute Nucleated RBC (0.00-0.00) X 10*3/uL Neutrophils % 79 % Lymphocytes % 12 % Monocytes % 7 % Eosinophils % 1 % Basophils % 0 % Immature Gran # (0.00-0.04) X 10*3/uL Neutrophils # 11.3 H (1.3-7.7) k/uL Lymphocytes # 1.7 (1.0-4.8) k/uL Monocytes # 0.9 (0-1.0) k/uL Eosinophils # 0.1 (0-0.7) k/uL Basophils # 0.0 (0-0.2) k/uL NRBC/100 WBC Diff (0.0-0.0) /100 WBCS PT 9.9 (9.0-12.0) sec INR 0.9 (<1.2) APTT 19.3 L (22.0-30.0) sec Sodium (137-145) mmol/L Potassium (3.5-5.1) mmol/L Chloride (98-107) mmol/L Carbon Dioxide (22-30) mmol/L Anion Gap mmol/L BUN (9-20) mg/dL Creatinine (0.66-1.25) mg/dL Est GFR (CKD-EPI)AfAm (>60 ml/min/1.73 sqM) Est GFR (CKD-EPI)NonAf (>60 ml/min/1.73 sqM) BUN/Creatinine Ratio (12.00-20.00) Ratio Glucose (74-99) mg/dL POC Glucose (mg/dL) (75-99) mg/dL POC Glu [employer] ID Estimated [address] Glu mg/dL Hemoglobin A1c (4.0-6.0) % Lactic Ac Sepsis Rflx Plasma Lactic Acid Michel (0.7-2.0) mmol/L Calcium (8.4-10.2) mg/dL Phosphorus (2.5-4.5) mg/dL Magnesium (1.6-2.3) mg/dL Total Bilirubin (0.2-1.3) mg/dL AST (17-59) U/L ALT (4-49) U/L Alkaline Phosphatase (38-126) U/L Creatine Kinase (55-170) U/L Troponin I (0.000-0.034) ng/mL Total Protein (6.3-8.2) g/dL Albumin (3.5-5.0) g/dL Globulin (1.6-3.3) g/dL Albumin/Globulin Ratio (1.60-3.17) g/dL TSH (0.350-5.500) uIU/mL Free T4 (0.80-1.80) ng/dL Urine Color Light Yellow Urine Appearance Clear (Clear) Urine pH 7.5 (5.0-8.0) Ur Specific [place] 1.010 (1.001-1.035) Urine Protein 2+ H (Negative) Urine Glucose (UA) 1+ H (Negative) Urine Ketones Negative (Negative) Urine Blood Small H (Negative) Urine Nitrite Negative (Negative) Urine Bilirubin Negative (Negative) Urine Urobilinogen <2.0 (<2.0) mg/dL Ur Leukocyte Esterase Negative (Negative) Urine RBC 13 H (0-5) /hpf Urine WBC 1 (0-5) /hpf Hyaline Casts 3 H (0-2) /lpf Coronavirus (PCR) (Not Detectd) 02/17/21 02/17/21 02/17/21 Range/Units 04:28 04:28 04:28 WBC (3.8-10.6) k/uL RBC (4.30-5.90) m/uL Hgb (13.0-17.5) gm/dL Hct (39.0-53.0) % MCV (80.0-100.0) fL MCH (25.0-35.0) pg MCHC (31.0-37.0) g/dL RDW (11.5-15.5) % Plt Count (150-450) k/uL MPV Immature Gran % (Auto) % Absolute Nucleated RBC (0.00-0.00) X 10*3/uL Neutrophils % % Lymphocytes % % Monocytes % % Eosinophils % % Basophils % % Immature Gran # (0.00-0.04) X 10*3/uL Neutrophils # (1.3-7.7) k/uL Lymphocytes # (1.0-4.8) k/uL Monocytes # (0-1.0) k/uL Eosinophils # (0-0.7) k/uL Basophils # (0-0.2) k/uL NRBC/100 WBC Diff (0.0-0.0) /100 WBCS PT (9.0-12.0) sec INR (<1.2) APTT (22.0-30.0) sec Sodium 133 L (137-145) mmol/L Potassium 5.0 (3.5-5.1) mmol/L Chloride 103 (98-107) mmol/L Carbon Dioxide 21 L (22-30) mmol/L Anion Gap 9 mmol/L BUN 30 H (9-20) mg/dL Creatinine 0.98 (0.66-1.25) mg/dL Est GFR (CKD-EPI)AfAm 89 (>60 ml/min/1.73 sqM) Est GFR (CKD-EPI)NonAf 77 (>60 ml/min/1.73 sqM) BUN/Creatinine Ratio (12.00-20.00) Ratio Glucose 203 H (74-99) mg/dL POC Glucose (mg/dL) (75-99) mg/dL POC Glu [employer] ID Estimated [address] Glu mg/dL Hemoglobin A1c (4.0-6.0) % Lactic Ac Sepsis Rflx Plasma Lactic Acid Michel 2.3 H* (0.7-2.0) mmol/L Calcium 9.0 (8.4-10.2) mg/dL Phosphorus 2.9 (2.5-4.5) mg/dL Magnesium 1.7 (1.6-2.3) mg/dL Total Bilirubin 0.6 (0.2-1.3) mg/dL AST 53 (17-59) U/L ALT 33 (4-49) U/L Alkaline Phosphatase 73 (38-126) U/L Creatine Kinase 177 H (55-170) U/L Troponin I 0.021 (0.000-0.034) ng/mL Total Protein 6.7 (6.3-8.2) g/dL Albumin 3.7 (3.5-5.0) g/dL Globulin (1.6-3.3) g/dL Albumin/Globulin Ratio (1.60-3.17) g/dL TSH (0.350-5.500) uIU/mL Free T4 (0.80-1.80) ng/dL Urine Color Urine Appearance (Clear) Urine pH (5.0-8.0) Ur Specific [place] (1.001-1.035) Urine Protein (Negative) Urine Glucose (UA) (Negative) Urine Ketones (Negative) Urine Blood (Negative) Urine Nitrite (Negative) Urine Bilirubin (Negative) Urine Urobilinogen (<2.0) mg/dL Ur Leukocyte Esterase (Negative) Urine RBC (0-5) /hpf Urine WBC (0-5) /hpf Hyaline Casts (0-2) /lpf Coronavirus (PCR) (Not Detectd) 02/17/21 02/17/21 02/17/21 Range/Units 05:46 07:46 08:27 WBC (3.8-10.6) k/uL RBC (4.30-5.90) m/uL Hgb (13.0-17.5) gm/dL Hct (39.0-53.0) % MCV (80.0-100.0) fL MCH (25.0-35.0) pg MCHC (31.0-37.0) g/dL RDW (11.5-15.5) % Plt Count (150-450) k/uL MPV Immature Gran % (Auto) % Absolute Nucleated RBC (0.00-0.00) X 10*3/uL Neutrophils % % Lymphocytes % % Monocytes % % Eosinophils % % Basophils % % Immature Gran # (0.00-0.04) X 10*3/uL Neutrophils # (1.3-7.7) k/uL Lymphocytes # (1.0-4.8) k/uL Monocytes # (0-1.0) k/uL Eosinophils # (0-0.7) k/uL Basophils # (0-0.2) k/uL NRBC/100 WBC Diff (0.0-0.0) /100 WBCS PT (9.0-12.0) sec INR (<1.2) APTT (22.0-30.0) sec Sodium (137-145) mmol/L Potassium (3.5-5.1) mmol/L Chloride (98-107) mmol/L Carbon Dioxide (22-30) mmol/L Anion Gap mmol/L BUN (9-20) mg/dL Creatinine (0.66-1.25) mg/dL Est GFR (CKD-EPI)AfAm (>60 ml/min/1.73 sqM) Est GFR (CKD-EPI)NonAf (>60 ml/min/1.73 sqM) BUN/Creatinine Ratio (12.00-20.00) Ratio Glucose (74-99) mg/dL POC Glucose (mg/dL) 234 H (75-99) mg/dL POC Glu [employer] ID Emma Crenshaw [address] Glu mg/dL Hemoglobin A1c (4.0-6.0) % Lactic Ac Sepsis Rflx Y Plasma Lactic Acid Michel 0.9 (0.7-2.0) mmol/L Calcium (8.4-10.2) mg/dL Phosphorus (2.5-4.5) mg/dL Magnesium (1.6-2.3) mg/dL Total Bilirubin (0.2-1.3) mg/dL AST (17-59) U/L ALT (4-49) U/L Alkaline Phosphatase (38-126) U/L Creatine Kinase (55-170) U/L Troponin I (0.000-0.034) ng/mL Total Protein (6.3-8.2) g/dL Albumin (3.5-5.0) g/dL Globulin (1.6-3.3) g/dL Albumin/Globulin Ratio (1.60-3.17) g/dL TSH (0.350-5.500) uIU/mL Free T4 (0.80-1.80) ng/dL Urine Color Urine Appearance (Clear) Urine pH (5.0-8.0) Ur Specific [place] (1.001-1.035) Urine Protein (Negative) Urine Glucose (UA) (Negative) Urine Ketones (Negative) Urine Blood (Negative) Urine Nitrite (Negative) Urine Bilirubin (Negative) Urine Urobilinogen (<2.0) mg/dL Ur Leukocyte Esterase (Negative) Urine RBC (0-5) /hpf Urine WBC (0-5) /hpf Hyaline Casts (0-2) /lpf Coronavirus (PCR) (Not Detectd) 02/17/21 02/17/21 02/17/21 Range/Units 12:15 14:27 14:49 WBC (3.8-10.6) k/uL RBC (4.30-5.90) m/uL Hgb (13.0-17.5) gm/dL Hct (39.0-53.0) % MCV (80.0-100.0) fL MCH (25.0-35.0) pg MCHC (31.0-37.0) g/dL RDW (11.5-15.5) % Plt Count (150-450) k/uL MPV Immature Gran % (Auto) % Absolute Nucleated RBC (0.00-0.00) X 10*3/uL Neutrophils % % Lymphocytes % % Monocytes % % Eosinophils % % Basophils % % Immature Gran # (0.00-0.04) X 10*3/uL Neutrophils # (1.3-7.7) k/uL Lymphocytes # (1.0-4.8) k/uL Monocytes # (0-1.0) k/uL Eosinophils # (0-0.7) k/uL Basophils # (0-0.2) k/uL NRBC/100 WBC Diff (0.0-0.0) /100 WBCS PT (9.0-12.0) sec INR (<1.2) APTT (22.0-30.0) sec Sodium (137-145) mmol/L Potassium (3.5-5.1) mmol/L Chloride (98-107) mmol/L Carbon Dioxide (22-30) mmol/L Anion Gap mmol/L BUN (9-20) mg/dL Creatinine (0.66-1.25) mg/dL Est GFR (CKD-EPI)AfAm (>60 ml/min/1.73 sqM) Est GFR (CKD-EPI)NonAf (>60 ml/min/1.73 sqM) BUN/Creatinine Ratio (12.00-20.00) Ratio Glucose (74-99) mg/dL POC Glucose (mg/dL) 436 H 417 H (75-99) mg/dL POC Glu [employer] ID Emma Crenshaw [address]ine [address] Glu mg/dL 217 Hemoglobin A1c 9.2 H (4.0-6.0) % Lactic Ac Sepsis Rflx Plasma Lactic Acid Michel (0.7-2.0) mmol/L Calcium (8.4-10.2) mg/dL Phosphorus (2.5-4.5) mg/dL Magnesium (1.6-2.3) mg/dL Total Bilirubin (0.2-1.3) mg/dL AST (17-59) U/L ALT (4-49) U/L Alkaline Phosphatase (38-126) U/L Creatine Kinase (55-170) U/L Troponin I (0.000-0.034) ng/mL Total Protein (6.3-8.2) g/dL Albumin (3.5-5.0) g/dL Globulin (1.6-3.3) g/dL Albumin/Globulin Ratio (1.60-3.17) g/dL TSH (0.350-5.500) uIU/mL Free T4 (0.80-1.80) ng/dL Urine Color Urine Appearance (Clear) Urine pH (5.0-8.0) Ur Specific [place] (1.001-1.035) Urine Protein (Negative) Urine Glucose (UA) (Negative) Urine Ketones (Negative) Urine Blood (Negative) Urine Nitrite (Negative) Urine Bilirubin (Negative) Urine Urobilinogen (<2.0) mg/dL Ur Leukocyte Esterase (Negative) Urine RBC (0-5) /hpf Urine WBC (0-5) /hpf Hyaline Casts (0-2) /lpf Coronavirus (PCR) (Not Detectd) 02/17/21 02/17/21 02/17/21 Range/Units 14:49 14:49 15:17 WBC (3.8-10.6) k/uL RBC (4.30-5.90) m/uL Hgb (13.0-17.5) gm/dL Hct (39.0-53.0) % MCV (80.0-100.0) fL MCH (25.0-35.0) pg MCHC (31.0-37.0) g/dL RDW (11.5-15.5) % Plt Count (150-450) k/uL MPV Immature Gran % (Auto) % Absolute Nucleated RBC (0.00-0.00) X 10*3/uL Neutrophils % % Lymphocytes % % Monocytes % % Eosinophils % % Basophils % % Immature Gran # (0.00-0.04) X 10*3/uL Neutrophils # (1.3-7.7) k/uL Lymphocytes # (1.0-4.8) k/uL Monocytes # (0-1.0) k/uL Eosinophils # (0-0.7) k/uL Basophils # (0-0.2) k/uL NRBC/100 WBC Diff (0.0-0.0) /100 WBCS PT (9.0-12.0) sec INR (<1.2) APTT (22.0-30.0) sec Sodium (137-145) mmol/L Potassium (3.5-5.1) mmol/L Chloride (98-107) mmol/L Carbon Dioxide (22-30) mmol/L Anion Gap mmol/L BUN (9-20) mg/dL Creatinine (0.66-1.25) mg/dL Est GFR (CKD-EPI)AfAm (>60 ml/min/1.73 sqM) Est GFR (CKD-EPI)NonAf (>60 ml/min/1.73 sqM) BUN/Creatinine Ratio (12.00-20.00) Ratio Glucose (74-99) mg/dL POC Glucose (mg/dL) (75-99) mg/dL POC Glu [employer] ID [address] Glu mg/dL Hemoglobin A1c (4.0-6.0) % Lactic Ac Sepsis Rflx Plasma Lactic Acid Michel (0.7-2.0) mmol/L Calcium (8.4-10.2) mg/dL Phosphorus (2.5-4.5) mg/dL Magnesium (1.6-2.3) mg/dL Total Bilirubin (0.2-1.3) mg/dL AST (17-59) U/L ALT (4-49) U/L Alkaline Phosphatase (38-126) U/L Creatine Kinase (55-170) U/L Troponin I 0.020 (0.000-0.034) ng/mL Total Protein (6.3-8.2) g/dL Albumin (3.5-5.0) g/dL Globulin (1.6-3.3) g/dL Albumin/Globulin Ratio (1.60-3.17) g/dL TSH 12.710 H (0.350-5.500) uIU/mL Free T4 1.00 (0.80-1.80) ng/dL Urine Color Urine Appearance (Clear) Urine pH (5.0-8.0) Ur Specific [place] (1.001-1.035) Urine Protein (Negative) Urine Glucose (UA) (Negative) Urine Ketones (Negative) Urine Blood (Negative) Urine Nitrite (Negative) Urine Bilirubin (Negative) Urine Urobilinogen (<2.0) mg/dL Ur Leukocyte Esterase (Negative) Urine RBC (0-5) /hpf Urine WBC (0-5) /hpf Hyaline Casts (0-2) /lpf Coronavirus (PCR) (Not Detectd) 02/17/21 02/17/21 02/17/21 Range/Units 15:45 17:25 20:58 WBC (3.8-10.6) k/uL RBC (4.30-5.90) m/uL Hgb (13.0-17.5) gm/dL Hct (39.0-53.0) % MCV (80.0-100.0) fL MCH (25.0-35.0) pg MCHC (31.0-37.0) g/dL RDW (11.5-15.5) % Plt Count (150-450) k/uL MPV Immature Gran % (Auto) % Absolute Nucleated RBC (0.00-0.00) X 10*3/uL Neutrophils % % Lymphocytes % % Monocytes % % Eosinophils % % Basophils % % Immature Gran # (0.00-0.04) X 10*3/uL Neutrophils # (1.3-7.7) k/uL Lymphocytes # (1.0-4.8) k/uL Monocytes # (0-1.0) k/uL Eosinophils # (0-0.7) k/uL Basophils # (0-0.2) k/uL NRBC/100 WBC Diff (0.0-0.0) /100 WBCS PT (9.0-12.0) sec INR (<1.2) APTT (22.0-30.0) sec Sodium (137-145) mmol/L Potassium (3.5-5.1) mmol/L Chloride (98-107) mmol/L Carbon Dioxide (22-30) mmol/L Anion Gap mmol/L BUN (9-20) mg/dL Creatinine (0.66-1.25) mg/dL Est GFR (CKD-EPI)AfAm (>60 ml/min/1.73 sqM) Est GFR (CKD-EPI)NonAf (>60 ml/min/1.73 sqM) BUN/Creatinine Ratio (12.00-20.00) Ratio Glucose (74-99) mg/dL POC Glucose (mg/dL) 354 H 403 H (75-99) mg/dL POC Glu [employer] Meera Nava Robert [address] Glu mg/dL Hemoglobin A1c (4.0-6.0) % Lactic Ac Sepsis Rflx Plasma Lactic Acid Michel (0.7-2.0) mmol/L Calcium (8.4-10.2) mg/dL Phosphorus (2.5-4.5) mg/dL Magnesium (1.6-2.3) mg/dL Total Bilirubin (0.2-1.3) mg/dL AST (17-59) U/L ALT (4-49) U/L Alkaline Phosphatase (38-126) U/L Creatine Kinase (55-170) U/L Troponin I (0.000-0.034) ng/mL Total Protein (6.3-8.2) g/dL Albumin (3.5-5.0) g/dL Globulin (1.6-3.3) g/dL Albumin/Globulin Ratio (1.60-3.17) g/dL TSH (0.350-5.500) uIU/mL Free T4 (0.80-1.80) ng/dL Urine Color Urine Appearance (Clear) Urine pH (5.0-8.0) Ur Specific [place] (1.001-1.035) Urine Protein (Negative) Urine Glucose (UA) (Negative) Urine Ketones (Negative) Urine Blood (Negative) Urine Nitrite (Negative) Urine Bilirubin (Negative) Urine Urobilinogen (<2.0) mg/dL Ur Leukocyte Esterase (Negative) Urine RBC (0-5) /hpf Urine WBC (0-5) /hpf Hyaline Casts (0-2) /lpf Coronavirus (PCR) Not Detected (Not Detectd) 02/18/21 02/18/21 02/18/21 Range/Units 00:42 04:56 04:56 WBC 14.91 H (3.8-10.6) k/uL RBC 3.77 L (4.30-5.90) m/uL Hgb 11.1 L (13.0-17.5) gm/dL Hct 33.2 L (39.0-53.0) % MCV 88.1 (80.0-100.0) fL MCH 29.4 (25.0-35.0) pg MCHC 33.4 (31.0-37.0) g/dL RDW 13.8 (11.5-15.5) % Plt Count 169 (150-450) k/uL MPV 12.2 Immature Gran % (Auto) 0.5 % Absolute Nucleated RBC 0 (0.00-0.00) X 10*3/uL Neutrophils % 78.0 % Lymphocytes % 13.1 % Monocytes % 8.1 % Eosinophils % 0.2 % Basophils % 0.1 % Immature Gran # 0.08 H (0.00-0.04) X 10*3/uL Neutrophils # 11.61 H (1.3-7.7) k/uL Lymphocytes # 1.96 (1.0-4.8) k/uL Monocytes # 1.21 H (0-1.0) k/uL Eosinophils # 0.03 L (0-0.7) k/uL Basophils # 0.02 (0-0.2) k/uL NRBC/100 WBC Diff 0 (0.0-0.0) /100 WBCS PT (9.0-12.0) sec INR (<1.2) APTT (22.0-30.0) sec Sodium 139 (137-145) mmol/L Potassium 3.9 (3.5-5.1) mmol/L Chloride 107 (98-107) mmol/L Carbon Dioxide 27.2 (22-30) mmol/L Anion Gap 4.80 mmol/L BUN 29.0 H (9-20) mg/dL Creatinine 1.2 (0.66-1.25) mg/dL Est GFR (CKD-EPI)AfAm 69.1 (>60 ml/min/1.73 sqM) Est GFR (CKD-EPI)NonAf 59.6 L (>60 ml/min/1.73 sqM) BUN/Creatinine Ratio 24.17 H (12.00-20.00) Ratio Glucose 188 H (74-99) mg/dL POC Glucose (mg/dL) 341 H (75-99) mg/dL POC Glu [employer] ID Sonny Freddy [address] Glu mg/dL Hemoglobin A1c (4.0-6.0) % Lactic Ac Sepsis Rflx Plasma Lactic Acid Michel (0.7-2.0) mmol/L Calcium 8.8 (8.4-10.2) mg/dL Phosphorus 3.1 (2.5-4.5) mg/dL Magnesium 1.8 (1.6-2.3) mg/dL Total Bilirubin 0.7 (0.2-1.3) mg/dL AST 36 H (17-59) U/L ALT 34 (4-49) U/L Alkaline Phosphatase 64 (38-126) U/L Creatine Kinase (55-170) U/L Troponin I (0.000-0.034) ng/mL Total Protein 5.6 L (6.3-8.2) g/dL Albumin 3.40 L (3.5-5.0) g/dL Globulin 2.2 (1.6-3.3) g/dL Albumin/Globulin Ratio 1.55 L (1.60-3.17) g/dL TSH (0.350-5.500) uIU/mL Free T4 (0.80-1.80) ng/dL Urine Color Urine Appearance (Clear) Urine pH (5.0-8.0) Ur Specific [place] (1.001-1.035) Urine Protein (Negative) Urine Glucose (UA) (Negative) Urine Ketones (Negative) Urine Blood (Negative) Urine Nitrite (Negative) Urine Bilirubin (Negative) Urine Urobilinogen (<2.0) mg/dL Ur Leukocyte Esterase (Negative) Urine RBC (0-5) /hpf Urine WBC (0-5) /hpf Hyaline Casts (0-2) /lpf Coronavirus (PCR) (Not Detectd) 02/18/21 02/18/21 Range/Units 06:51 12:12 WBC (3.8-10.6) k/uL RBC (4.30-5.90) m/uL Hgb (13.0-17.5) gm/dL Hct (39.0-53.0) % MCV (80.0-100.0) fL MCH (25.0-35.0) pg MCHC (31.0-37.0) g/dL RDW (11.5-15.5) % Plt Count (150-450) k/uL MPV Immature Gran % (Auto) % Absolute Nucleated RBC (0.00-0.00) X 10*3/uL Neutrophils % % Lymphocytes % % Monocytes % % Eosinophils % % Basophils % % Immature Gran # (0.00-0.04) X 10*3/uL Neutrophils # (1.3-7.7) k/uL Lymphocytes # (1.0-4.8) k/uL Monocytes # (0-1.0) k/uL Eosinophils # (0-0.7) k/uL Basophils # (0-0.2) k/uL NRBC/100 WBC Diff (0.0-0.0) /100 WBCS PT (9.0-12.0) sec INR (<1.2) APTT (22.0-30.0) sec Sodium (137-145) mmol/L Potassium (3.5-5.1) mmol/L Chloride (98-107) mmol/L Carbon Dioxide (22-30) mmol/L Anion Gap mmol/L BUN (9-20) mg/dL Creatinine (0.66-1.25) mg/dL Est GFR (CKD-EPI)AfAm (>60 ml/min/1.73 sqM) Est GFR (CKD-EPI)NonAf (>60 ml/min/1.73 sqM) BUN/Creatinine Ratio (12.00-20.00) Ratio Glucose (74-99) mg/dL POC Glucose (mg/dL) 185 H 192 H (75-99) mg/dL POC Glu [employer] ID Rhody, Emma Rhody, Emma Estimated Ave Glu mg/dL Hemoglobin A1c (4.0-6.0) % Lactic Ac Sepsis Rflx Plasma Lactic Acid Michel (0.7-2.0) mmol/L Calcium (8.4-10.2) mg/dL Phosphorus (2.5-4.5) mg/dL Magnesium (1.6-2.3) mg/dL Total Bilirubin (0.2-1.3) mg/dL AST (17-59) U/L ALT (4-49) U/L Alkaline Phosphatase (38-126) U/L Creatine Kinase (55-170) U/L Troponin I (0.000-0.034) ng/mL Total Protein (6.3-8.2) g/dL Albumin (3.5-5.0) g/dL Globulin (1.6-3.3) g/dL Albumin/Globulin Ratio (1.60-3.17) g/dL TSH (0.350-5.500) uIU/mL Free T4 (0.80-1.80) ng/dL Urine Color Urine Appearance (Clear) Urine pH (5.0-8.0) Ur Specific [place] (1.001-1.035) Urine Protein (Negative) Urine Glucose (UA) (Negative) Urine Ketones (Negative) Urine Blood (Negative) Urine Nitrite (Negative) Urine Bilirubin (Negative) Urine Urobilinogen (<2.0) mg/dL Ur Leukocyte Esterase (Negative) Urine RBC (0-5) /hpf Urine WBC (0-5) /hpf Hyaline Casts (0-2) /lpf Coronavirus (PCR) (Not Detectd) Disposition Clinical Impression: Dehydration, Weakness, Tremor Disposition: ADMITTED IP TO THIS HOSP Condition: Fair Is patient prescribed a controlled substance at d/c from ED?: No
[2021-02-17 04:51] LABS: Basophils % (A) 0 %; Eosinophils # (A) 0.1 k/uL (0-0.7); Eosinophils % (A) 1 %; HCT 38.7 % (39.0-53.0); HGB 13.1 gm/dL (13.0-17.5); Lymphocytes # (A) 1.7 k/uL (1.0-4.8); Lymphocytes % (A) 12 %; MCH 30.4 pg (25.0-35.0); MCHC 33.8 g/dL (31.0-37.0); Mean Platelet Volume 9.5; Monocytes # (A) 0.9 k/uL (0-1.0); Monocytes % (A) 7 %; Neutrophils # (A) 11.3 k/uL (1.3-7.7); Neutrophils % (A) 79 %; Platelet Count 214 k/uL (150-450); RDW 14.2 % (11.5-15.5); WBC 14.3 k/uL (3.8-10.6)
[2021-02-17 04:57] LABS: Appearance,Urine Clear (Clear); Bilirubin,Urine Negative (Negative); Blood,Urine Small (Negative); Color,Urine Light Yellow; Glucose,Urine (UA) 1+ (Negative); Hyaline Casts,Urine 3 /lpf (0-2); Ketones,Urine Negative (Negative); Leukocyte Esterase,Urine Negative (Negative); Nitrite,Urine Negative (Negative); PH, Urine 7.5 (5.0-8.0); Protein,Urine 2+ (Negative); RBC,Urine 13 /hpf (0-5); Urobilinogen,Urine <2.0 mg/dL (<2.0); WBC,Urine 1 /hpf (0-5)
[2021-02-17 05:19] LABS: INR 0.9 (<1.2); Prothrombin Time 9.9 sec (9.0-12.0)
[2021-02-17 05:21] LABS: Partial Thromboplastin Time 19.3 sec (22.0-30.0)
[2021-02-17 05:22] LABS: Total Bilirubin 0.6 mg/dL (0.2-1.3)
[2021-02-17 05:40] LABS: Albumin 3.7 g/dL (3.5-5.0); Magnesium 1.7 mg/dL (1.6-2.3); Phosphorus 2.9 mg/dL (2.5-4.5); Total Protein 6.7 g/dL (6.3-8.2)
[2021-02-17] MEDS ORDERED: MORPHINE SULFATE 4 MG/ML SYRINGE IVP STA (05:46)
[2021-02-17] MEDS ORDERED: LORazepam 2 MG/ML INJ IV STA (05:46)
[2021-02-17] MEDS ORDERED: NALOXONE 0.4 MG/ML 1 ML VIAL IV PRN (05:59)
[2021-02-17] MEDS ORDERED: ONDANSETRON 4 MG/2 ML VIAL IVP PRN (05:59)
[2021-02-17] MEDS ORDERED: LORazepam 2 MG/ML INJ IV PRN (05:59)
--- NOTE | 2021-02-17 06:09 | XR ---
EXAMINATION TYPE: XR chest 1V DATE OF EXAM: 02/17/2021 COMPARISON: 06/28/2017 HISTORY: Headache TECHNIQUE: FINDINGS: Heart and mediastinum are normal. Lungs are clear of infiltrate. There is no heart failure. There are no hilar masses. Bony thorax is intact IMPRESSION: No active cardiopulmonary disease. No change.
--- NOTE | 2021-02-17 06:30 | CT ---
EXAMINATION TYPE: CT brain wo con DATE OF EXAM: 02/17/2021 COMPARISON: 05/17/2017 HISTORY: Weakness CT DLP: 1216.40 mGycm Automated exposure control for dose reduction was used. There is cerebral cortical atrophy. There is no mass effect nor midline shift. There is no sign of in tracranial hemorrhage. Calvarium is intact. Skull base is intact. There is opacification left maxilla ry sinus with mild wall thickening. IMPRESSION: Mild atrophy. No acute intracranial abnormality. Left maxillary sinusitis increased compared to old e xam.
[2021-02-17] MEDS ORDERED: DEXAMETHASONE SOD PHOSPHATE 10 MG/ML 1 ML VIAL IV STA (06:38)
[2021-02-17] MEDS: SODIUM CHLORIDE 0.9% 1,000 ML IV SCH ×2 (06:43→14:20)
[2021-02-17 07:47] LABS: Glucose,Whole Blood 234 mg/dL (75-99)
[2021-02-17] MEDS: MORPHINE SULFATE 4 MG/ML SYRINGE IV PRN (11:09)
[2021-02-17 12:16] LABS: Glucose,Whole Blood 436 mg/dL (75-99)
[2021-02-17] MEDS: GABAPENTIN 300 MG CAP PO SCH (12:23)
[2021-02-17] MEDS: SERTRALINE 50 MG TAB PO SCH (12:23)
[2021-02-17] MEDS: METOPROLOL TARTRATE 50 MG TAB PO SCH ×2 (12:23→23:23)
[2021-02-17] MEDS: lisinopriL 20 MG TAB PO SCH (12:23)
[2021-02-17] MEDS: THIAMINE 100 MG TAB PO SCH (12:23)
[2021-02-17] MEDS: LEVOTHYROXINE 112 MCG TAB PO SCH (12:25)
[2021-02-17] MEDS: PRAMIPEXOLE 1 MG TAB PO SCH ×2 (12:25→23:23)
[2021-02-17] MEDS: FINASTERIDE 5 MG TAB PO SCH (12:25)
[2021-02-17] MEDS: INSULIN ASPART (NovoLOG) 100 UNIT/ML VIAL SQ SCH ×4 (13:06→23:24)
[2021-02-17 14:29] LABS: Glucose,Whole Blood 417 mg/dL (75-99)
--- NOTE | 2021-02-17 16:05 | P.HPIM ---
<Neil Way - Last Filed: 02/17/21 15:35> History of Present Illness H&P Date: 02/17/21 History of Presenting Illness: Patient is a very pleasant 75-year-old male with a past medical history of hypertension, hyperlipidemia, insulin-dependent diabetes mellitus, hypothyroidism, gout, depression, BPH, and neuropathy with restless leg syndrome. Patient presenting to the emergency department with a chief complaint of tremors/shakiness and weakness. Patient reports that upon getting out of bed this morning and walking to the bathroom he felt very weak and could not stop shaking. Patient reports his arms and legs were trembling/shaking so much and there was nothing he could do to make them stop. Patient denies falls or having any injuries. Just reports feeling weak and shaky and states that his restless legs are acting up again because he was late taking his medication. He was seen and fully evaluated in the emergency department and was found to have lactic acidosis with a lactic acid of 2.3, hyponatremia with sodium of 133, prerenal azotemia with BUN of 30, elevated CK 177, and hyperglycemia with glucose of 203. Patient admitted under our services for dehydration and lactic acidosis. Upon physical examination patient resting in bed. He denies having any recent infections or illnesses or being exposed to any known ill contact. Patient denies having any headache, lightheadedness, dizziness, changes in his vision or hearing, chest pain or palpitations, shortness of breath, abdominal pain, nausea, vomiting, changes in appetite, changes in or difficulties with bowel function, or experiencing any numbness/tingling in his extremities. Pt has chronic lower extremity edema in which he reports is at baseline. Review of systems: Pertinent positives and negatives as discussed in HPI, a complete review of systems was performed and all other systems are negative. Physical exam: Vital signs reviewed and stable. General: Nontoxic, no distress and appears stated age. Derm: Skin warm and dry, normal coloration for ethnicity. Head: Atraumatic, normocephalic and symmetric. Eyes: EOMs intact, no lid lag, and anicteric sclera Mouth: no lip lesions, mucus membranes moist Cardiovascular: regular rate and rhythm with normal S1S2, no murmur, positive posterior tibial pulses bilaterally, and cap refill < 2 seconds. Lungs: Respirations even, regular, and unlabored on room air. Lungs CTA bilaterally, no rhonchi, no rales, no wheezing, and no accessory muscle usage. Abdominal: Obese abdomen soft, nontender to palpation, no guarding, no appreciable organomegaly Ext: ROM intact. No gross muscle atrophy, 2+ BLE pitting edema, no contractures Neuro: Speech clear, face symmetrical and CN II-XII grossly intact with no noted focal neuro deficits Psych: Alert and oriented to person, place, time, and situation. Appropriate and pleasant affect. Assessment and Plan of Care: Lactic acidosis likelly resulting from dehydration Leukocytosis with Weakness and tremors Hyponatremia Prerenal azotemia -Concerns for medication effects or misuse vs infectious process vs dehydration -Covid 19 PCR -Rehydration with IV fluids. -Telemetry monitoring -Fall precautions -PT/OT consultation -Continue close monitoring with repeat a.m. labs. -Obtain TSH with reflex free T4 -Check hemoglobin A1c with a.m. labs Insulin-dependent diabetes mellitus with hyperglycemia -Continue patient's home Levemir 40 units twice daily in place patient on glycemic protocol with NovoLog sliding scale. -Hemoglobin A1c with a.m. labs Hypothyroidism -Continue daily medication regimen with Synthroid 112 g daily. Hypertension -Hold hydrochlorothiazide and continue daily medication regimen with metoprolol and amlodipine. Hyperlipidemia -Continue daily medication regimen with atorvastatin 10 mg nightly. -Heart healthy and carb consistent diet. CODE STATUS: Full code DVT prophylaxis: Heparin Discussed with: Patient and RN Anticipated discharge date: Clinical course to determine Anticipated discharge place: Home A total of 45 minutes was spent on the care of this complex patient more than 5 0% of the time was spent in counseling and care coordination. Past Medical History Past Medical History: Cancer, Diabetes Mellitus, Hyperlipidemia, Hypertension, Prostate Disorder, Thyroid Disorder Additional Past Medical History / Comment(s): sciatia, skin cancer, past sinusits, cervical myelopathy History of Any Multi-Drug Resistant Organisms: None Reported Past Surgical History: No Surgical Hx Reported Additional Past Surgical History / Comment(s): sinus sx. cancer removed lt ear. colonoscopy 07-07-17 anterior cervical decompression/discectomy/fusion c3-4, c4-5 Past Anesthesia/Blood Transfusion Reactions: No Reported Reaction Smoking Status: Never smoker - Past Family History Father Additional Family Medical History / Comment(s): aoric aneurysm Medications and Allergies Home Medications Medication Instructions Recorded Confirmed Type Cholecalciferol [Vitamin D3] 2,000 unit PO DAILY 05/17/17 02/17/21 History Finasteride [Proscar] 5 mg PO DAILY 05/17/17 02/17/21 History HYDROcodone/APAP 7.5-325MG [[place] 1 tab PO Q6HR PRN 05/17/17 02/17/21 History 7.5-325] Insulin Detemir [Levemir Flextouch] 40 units SQ BID 05/17/17 02/17/21 History Levothyroxine Sodium [Synthroid] 112 mcg PO DAILY 05/17/17 02/17/21 History Lovastatin [Mevacor] 20 mg PO HS 05/17/17 02/17/21 History Metoprolol Tartrate [Lopressor] 50 mg PO BID 05/17/17 02/17/21 History allopurinoL [Zyloprim] 300 mg PO HS 05/17/17 02/17/21 History lisinopriL [Zestril] 40 mg PO DAILY 05/17/17 02/17/21 History Gabapentin [Neurontin] 300 mg PO DAILY 02/17/21 02/17/21 History Hydrochlorothiazide 12.5 mg PO Q48H 02/17/21 02/17/21 History [hydroCHLOROthiazide] Pramipexole [Mirapex] 1 mg PO BID 02/17/21 02/17/21 History Sertraline [Zoloft] 50 mg PO DAILY 02/17/21 02/17/21 History Thiamine [Vitamin B-1] 100 mg PO DAILY 02/17/21 02/17/21 History amLODIPine [Norvasc] 2.5 mg PO HS 02/17/21 02/17/21 History traZODone HCL [Desyrel] 100 mg PO HS 02/17/21 02/17/21 History Allergies Allergy/AdvReac Type Severity Reaction Status Date / Time enalaprilat [From Vasotec] Allergy felt weak, Verified 02/17/21 09:01 couldn't talk erythromycin base AdvReac Nausea & Verified 02/17/21 09:01 [From Erythrocin] Vomiting Physical Exam Vitals: Vital Signs Temp Pulse Pulse Resp BP BP Pulse Ox 02/17/21 07:40 98.2 F 66 20 191/81 95 02/17/21 06:51 98.0 F 62 18 160/68 94 L 09/06/21 05:21 72 18 170/80 95 02/17/21 04:03 98.5 F 68 16 193/90 93 L Intake and Output 02/16/21 02/17/21 02/17/21 22:59 06:59 14:59 Other: Weight 108.862 kg 108.862 kg Results CBC & Chem 7: 02/17/21 04:28 02/17/21 04:28 Labs: Abnormal Lab Results - Last 24 Hours (Table) 02/17/21 02/17/21 02/17/21 Range/Units 04:28 04:28 04:28 WBC 14.3 H (3.8-10.6) k/uL Hct 38.7 L (39.0-53.0) % Neutrophils # 11.3 H (1.3-7.7) k/uL APTT 19.3 L (22.0-30.0) sec Sodium (137-145) mmol/L Carbon Dioxide (22-30) mmol/L BUN (9-20) mg/dL Glucose (74-99) mg/dL POC Glucose (mg/dL) (75-99) mg/dL Plasma Lactic Acid Michel (0.7-2.0) mmol/L Creatine Kinase (55-170) U/L Urine Protein 2+ H (Negative) Urine Glucose (UA) 1+ H (Negative) Urine Blood Small H (Negative) Urine RBC 13 H (0-5) /hpf Hyaline Casts 3 H (0-2) /lpf 02/17/21 02/17/21 02/17/21 Range/Units 04:28 04:28 07:46 WBC (3.8-10.6) k/uL Hct (39.0-53.0) % Neutrophils # (1.3-7.7) k/uL APTT (22.0-30.0) sec Sodium 133 L (137-145) mmol/L Carbon Dioxide 21 L (22-30) mmol/L BUN 30 H (9-20) mg/dL Glucose 203 H (74-99) mg/dL POC Glucose (mg/dL) 234 H (75-99) mg/dL Plasma Lactic Acid Michel 2.3 H* (0.7-2.0) mmol/L Creatine Kinase 177 H (55-170) U/L Urine Protein (Negative) Urine Glucose (UA) (Negative) Urine Blood (Negative) Urine RBC (0-5) /hpf Hyaline Casts (0-2) /lpf Thrombosis Risk Factor Assmnt - Choose All That Apply Each Factor Represents 1 point: Medical pt on bed rest, Obesity (BMI >25), Swollen legs (current) Each Risk Factor Represents 2 Points: Age 61-74 years Other congenital or acquired thrombophilia - If yes, enter type in comment: No Thrombosis Risk Factor Assessment Total Risk Factor Score: 5 Thrombosis Risk Factor Assessment Level: High Risk <Vanessa Zimmer - Last Filed: 02/17/21 18:25> History of Present Illness Patient seen and examined independently. Patient was also seen by Neil Way NP and case was discussed. I am in agreement with subjective, physical exam, assessment and plan as written above and amended below. No chest pain, Feeling very hot and weak. Check COVID, treat hyperglycemia, General: non toxic, no distress, appears at stated age Derm: dry flaking skin in lower abdomen, dressing in place over bilateral lower extremities warm, dry Head: atraumatic, normocephalic, symmetric Eyes: EOMI, no lid lag, anicteric sclera Mouth: no lip lesion, mucus membranes moist Cardiovascular: S1S2 reg, no murmur, positive posterior tibial pulse bilateral, Lungs: CTA bilateral, no rhonchi, no rales , no accessory muscle use Abdominal: soft, nontender to palpation, no guarding, no appreciable organomegaly Ext: no gross muscle atrophy, no edema, no contractures Neuro: CN II-XI grossly intact, no focal neuro deficits Psych: Alert, oriented, appropriate affect Physical Exam Osteopathic Statement: *. No significant issues noted on an osteopathic s tructural exam other than those noted in the History and Physical/Consult. Vitals: Vital Signs Temp Pulse Pulse Resp BP BP Pulse Ox 02/17/21 15:11 98.5 F 66 18 154/72 95 02/17/21 14:00 18 02/17/21 12:21 69 188/82 96 02/17/21 07:40 98.2 F 66 18 191/81 94 L 02/17/21 06:51 98.0 F 62 18 160/68 94 L 02/17/21 05:21 72 18 170/80 95 02/17/21 04:03 98.5 F 68 16 193/90 93 L Intake and Output 02/17/21 02/17/21 02/17/21 06:59 14:59 22:59 Intake Total 290 Output Total 335 Balance -45 Intake: IV 290 Sodium Chloride 0.9% 1, 130 000 ml @ 130 mls/hr IV . Q7H42M [facility] Rx#:[id number] Sodium Chloride 0.9% 1, 160 000 ml @ 50 mls/hr IV . Q20H [facility] Rx#:[id number] Output: Urine 335 Other: Voiding Method Urinal # Voids 2 Weight 108.862 kg 108.862 kg Results CBC & Chem 7: 02/17/21 04:28 02/17/21 04:28 Labs: Abnormal Lab Results - Last 24 Hours (Table) 02/17/21 02/17/21 02/17/21 Range/Units 04:28 04:28 04:28 WBC 14.3 H (3.8-10.6) k/uL Hct 38.7 L (39.0-53.0) % Neutrophils # 11.3 H (1.3-7.7) k/uL APTT 19.3 L (22.0-30.0) sec Sodium (137-145) mmol/L Carbon Dioxide (22-30) mmol/L BUN (9-20) mg/dL Glucose (74-99) mg/dL POC Glucose (mg/dL) (75-99) mg/dL Plasma Lactic Acid Michel (0.7-2.0) mmol/L Creatine Kinase (55-170) U/L Urine Protein 2+ H (Negative) Urine Glucose (UA) 1+ H (Negative) Urine Blood Small H (Negative) Urine RBC 13 H (0-5) /hpf Hyaline Casts 3 H (0-2) /lpf 02/17/21 02/17/21 02/17/21 Range/Units 04:28 04:28 07:46 WBC (3.8-10.6) k/uL Hct (39.0-53.0) % Neutrophils # (1.3-7.7) k/uL APTT (22.0-30.0) sec Sodium 133 L (137-145) mmol/L Carbon Dioxide 21 L (22-30) mmol/L BUN 30 H (9-20) mg/dL Glucose 203 H (74-99) mg/dL POC Glucose (mg/dL) 234 H (75-99) mg/dL Plasma Lactic Acid Michel 2.3 H* (0.7-2.0) mmol/L Creatine Kinase 177 H (55-170) U/L Urine Protein (Negative) Urine Glucose (UA) (Negative) Urine Blood (Negative) Urine RBC (0-5) /hpf Hyaline Casts (0-2) /lpf 02/17/21 02/17/21 02/17/21 Range/Units 12:15 14:27 17:25 WBC (3.8-10.6) k/uL Hct (39.0-53.0) % Neutrophils # (1.3-7.7) k/uL APTT (22.0-30.0) sec Sodium (137-145) mmol/L Carbon Dioxide (22-30) mmol/L BUN (9-20) mg/dL Glucose (74-99) mg/dL POC Glucose (mg/dL) 436 H 417 H 354 H (75-99) mg/dL Plasma Lactic Acid Michel (0.7-2.0) mmol/L Creatine Kinase (55-170) U/L Urine Protein (Negative) Urine Glucose (UA) (Negative) Urine Blood (Negative) Urine RBC (0-5) /hpf Hyaline Casts (0-2) /lpf
[2021-02-17 17:28] LABS: Glucose,Whole Blood 354 mg/dL (75-99)
[2021-02-17 20:59] LABS: Glucose,Whole Blood 403 mg/dL (75-99)
[2021-02-17] MEDS ORDERED: INSULIN DETEMIR (LEVEMIR) 100 UNIT/ML SYR SQ SCH (21:00)
[2021-02-17] MEDS: HEPARIN SODIUM,PORCINE/PF 5,000 UNIT/0.5 ML SYRINGE SQ SCH (23:23)
[2021-02-17] MEDS: ATORVASTATIN 10 MG TAB PO SCH (23:23)
[2021-02-17] MEDS: allopurinoL 300 MG TAB PO SCH (23:23)
[2021-02-17] MEDS: amLODIPine 2.5 MG TAB PO SCH (23:23)
[2021-02-17] MEDS: INSULIN DETEMIR (LEVEMIR) 100 UNIT/ML SYR SQ SCH (23:24)
[2021-02-18 00:44] LABS: Glucose,Whole Blood 341 mg/dL (75-99)
[2021-02-18] MEDS: MORPHINE SULFATE 4 MG/ML SYRINGE IV PRN (04:43)
[2021-02-18] MEDS: LEVOTHYROXINE 112 MCG TAB PO SCH (05:46)
[2021-02-18 06:52] LABS: Glucose,Whole Blood 185 mg/dL (75-99)
[2021-02-18] MEDS: INSULIN DETEMIR (LEVEMIR) 100 UNIT/ML SYR SQ SCH ×2 (08:00→22:24)
[2021-02-18] MEDS: GABAPENTIN 300 MG CAP PO SCH (08:01)
[2021-02-18] MEDS: lisinopriL 20 MG TAB PO SCH (08:01)
[2021-02-18] MEDS: THIAMINE 100 MG TAB PO SCH (08:01)
[2021-02-18] MEDS: INSULIN ASPART (NovoLOG) 100 UNIT/ML VIAL SQ SCH ×4 (08:01→22:23)
[2021-02-18] MEDS: PRAMIPEXOLE 1 MG TAB PO SCH ×2 (08:01→22:23)
[2021-02-18] MEDS: CHOLECALCIFEROL 25 MCG (1000 IU) TABLET PO SCH (08:01)
[2021-02-18] MEDS: HEPARIN SODIUM,PORCINE/PF 5,000 UNIT/0.5 ML SYRINGE SQ SCH ×2 (08:01→22:23)
[2021-02-18] MEDS: SERTRALINE 50 MG TAB PO SCH (08:02)
[2021-02-18] MEDS: FINASTERIDE 5 MG TAB PO SCH (08:02)
[2021-02-18] MEDS: HYDROcodone/APAP 7.5-325MG 1 EACH TAB PO PRN (08:02)
[2021-02-18] MEDS: METOPROLOL TARTRATE 50 MG TAB PO SCH ×2 (08:02→22:23)
[2021-02-18 09:18] LABS: Basophils # (A) 0.02 X 10*3/uL (0.00-0.10); Basophils % (A) 0.1 %; Eosinophils # (A) 0.03 X 10*3/uL (0.04-0.35); Eosinophils % (A) 0.2 %; HCT 33.2 % (39.6-50.0); HGB 11.1 g/dL (13.0-17.0); Lymphocytes # (A) 1.96 X 10*3/uL (0.90-5.00); Lymphocytes % (A) 13.1 %; MCH 29.4 pg (27.0-32.0); MCHC 33.4 g/dL (32.0-37.0); MCV 88.1 fL (80.0-97.0); Mean Platelet Volume 12.2 fL (9.5-12.2); Monocytes # (A) 1.21 X 10*3/uL (0.20-1.00); Monocytes % (A) 8.1 %; Neutrophils # (A) 11.61 X 10*3/uL (1.80-7.70); Platelet Count 169 X 10*3/uL (140-440); RBC 3.77 X 10*6/uL (4.40-5.60); RDW 13.8 % (11.5-14.5); WBC 14.91 X 10*3/uL (4.50-10.00)
[2021-02-18 12:13] LABS: Glucose,Whole Blood 192 mg/dL (75-99)
[2021-02-18 13:27] LABS: African American GFR (CKD) 69.1 (60.0-200.0); Albumin 3.4 g/dL (3.80-4.90); Albumin/Globulin Ratio 1.55 (1.60-3.17); Anion Gap 4.8 mmol/L (4.00-12.00); BUN/Creat Ratio 24.17 Ratio (12.00-20.00); Calcium 8.8 mg/dL (8.7-10.3); Carbon Dioxide 27.2 mmol/L (21.6-31.8); Globulin 2.2 g/dL (1.6-3.3); Magnesium 1.8 mg/dL (1.5-2.4); Non-African American GFR(CKD) 59.6 (60.0-200.0); Phosphorus 3.1 mg/dL (2.4-5.1); Potassium 3.9 mmol/L (3.5-5.5); Total Bilirubin 0.7 mg/dL (0.2-1.2); Total Protein 5.6 g/dL (6.2-8.2)
[2021-02-18] MEDS ORDERED: ALPRAZolam 0.5 MG TAB PO STA (14:03)
--- NOTE | 2021-02-18 14:29 | P.PN ---
Subjective Progress Note Date: 02/18/21 History of Presenting Illness: Patient is a very pleasant 75-year-old male with a past medical history of hypertension, hyperlipidemia, insulin-dependent diabetes mellitus, hypothyroidism, gout, depression, BPH, and neuropathy with restless leg syndrome. Patient presenting to the emergency department with a chief complaint of tremors/shakiness and weakness. Patient reports that upon getting out of bed this morning and walking to the bathroom he felt very weak and could not stop shaking. Patient reports his arms and legs were trembling/shaking so much and there was nothing he could do to make them stop. Patient denies falls or having any injuries. Just reports feeling weak and shaky and states that his restless legs are acting up again because he was late taking his medication. He was seen and fully evaluated in the emergency department and was found to have lactic acidosis with a lactic acid of 2.3, hyponatremia with sodium of 133, prerenal az otemia with BUN of 30, elevated CK 177, and hyperglycemia with glucose of 203. Chest x-ray negative for acute cardiopulmonary process. EKG showing normal at 66 bpm with no noted T-wave or ST abnormalities. Troponin are 0.[address] brain showing mild atrophy and left maxillary sinusitis, negative for acute intercranial process. Urinalysis negative for infection. Patient admitted under our services for dehydration, leukocytosis and lactic acidosis. Physical exam: 02/18/21: Patient was seen and fully evaluated at the bedside this morning. He continues to have leukocytosis with WBC count 14.91 to left shift. Patient also had noted a 2 g drop in hemoglobin from 13.1 down to 11.1 likely secondary to dilution as patient denies having any noted bleeding, bruising, dark-colored stools, or blood in stool or urine. Continues to have BUN elevation 29.0 and decrease in albumin of 3.40. Order placed for fecal occult secondary to pt's persistent reports of weakness. PT/OT and to evaluate patient patient required moderate assistance. Attempting to make arrangements for possible SNF placement upon discharge. Vital signs reveal mild bradycardic rate with heart rate maintaining from 50s to 60s, and mild hypertension with blood pressure 170 systolic. Patient anxious regarding having weakness and tremors. He denies having any chest pain, palpitations, shortness of breath, abdominal pain, nausea, vomiting, or experiencing any numbness/tingling/weakness in his ex tremities. Patient continues to have intermittent episodes of tremors. Vital signs reviewed and stable. General: Nontoxic, no distress and appears stated age. Derm: Skin warm and dry, normal coloration for ethnicity. Head: Atraumatic, normocephalic and symmetric. Eyes: EOMs intact, no lid lag, and anicteric sclera Mouth: no lip lesions, mucus membranes moist Cardiovascular: regular rate and rhythm with normal S1S2, no murmur, positive posterior tibial pulses bilaterally, and cap refill < 2 seconds. Lungs: Respirations even, regular, and unlabored on room air. Lungs CTA bilaterally, no rhonchi, no rales, no wheezing, and no accessory muscle usage. Abdominal: Obese abdomen soft, nontender to palpation, no guarding, no appreciable organomegaly Ext: ROM intact. No gross muscle atrophy, 2+ BLE pitting edema, no contractures Generalized lower extremity weakness equally. Neuro: Speech clear, face symmetrical and CN II-XII grossly intact with no noted focal neuro deficits Psych: Alert and oriented to person, place, time, and situation. Appropriate and pleasant affect. Assessment and Plan of Care: Leukocytosis with bilateral lower extremity weakness and tremors Prerenal azotemia -Concerns for medication effects/misuse vs infectious process vs dehydration -Covid 19 PCR negative, chest x-ray negative. Urinalysis negative -CT head showing mild atrophy, left maxillary sinusitis, negative for acute intercranial process. -Rehydration with IV fluids. -Telemetry monitoring -Fall precautions -PT/OT consultation, recommending SNF placement -Continue close monitoring with repeat a.m. labs. -TSH with reflex free T4 results pending -Hemoglobin A1c results pending Normocytic normochromic anemia -Hemoglobin 11.1, hemoglobin had 2 g drop from 13.1 yesterday, likely diuresis. -BUN also elevated 29.0 and BUN to creatinine ratio is 24.17. -Albumin low at 3.40 -We will obtain a fecal occult and continue to monitor CBC closely to rule out possible upper GI bleed. -GI prophylaxis with Protonix 40 mg IVP daily Lactic acidosis likelly resulting from dehydration, resolved Hyponatremia, resolved Insulin-dependent diabetes mellitus with hyperglycemia -Continue patient's home Levemir 40 units twice daily in place patient on glycemic protocol with NovoLog sliding scale. -Hemoglobin A1c with a.m. labs Hypothyroidism -Continue daily medication regimen with Synthroid 112 g daily. -Awaiting TSH with reflex free T4 results . Hypertension -Hold hydrochlorothiazide and continue daily medication regimen with metoprolol and amlodipine. Hyperlipidemia -Continue daily medication regimen with atorvastatin 10 mg nightly. -Heart healthy and carb consistent diet. CODE STATUS: Full code DVT prophylaxis: Heparin Discussed with: Patient, RN and attempted to call patient's with no answer, left voicemail at 1:55 PM Anticipated discharge date: Clinical course to determine Anticipated discharge place: Home A total of 45 minutes was spent on the care of this complex patient more than 50% of the time was spent in counseling and care coordination. Objective - Vital Signs Vital signs: Vital Signs Temp 98.3 F 02/18/21 00:40 Pulse 55 L 02/18/21 00:40 Resp 18 02/18/21 00:40 BP 179/79 02/18/21 00:40 Pulse Ox 94 L 02/18/21 00:40 Intake & Output 02/17/21 02/18/21 02/18/21 18:59 06:59 18:59 Intake Total 290 Output Total 335 201 Balance -45 -201 Weight 108.862 kg Intake: IV 290 Sodium Chloride 0.9% 1, 130 000 ml @ 130 mls/hr IV . Q7H42M [facility] Rx#:[id number] Sodium Chloride 0.9% 1, 160 000 ml @ 50 mls/hr IV . Q20H [facility] Rx#:[id number] Output: Urine 335 201 Other: Voiding Method Urinal Urinal # Voids 2 0 - Labs CBC & Chem 7: 02/18/21 04:56 02/18/21 04:56 Labs: Abnormal Lab Results - Last 24 Hours (Table) 02/17/21 02/17/21 02/17/21 Range/Units 12:15 14:27 17:25 POC Glucose (mg/dL) 436 H 417 H 354 H (75-99) mg/dL 02/17/21 02/18/21 02/18/21 Range/Units 20:58 00:42 06:51 POC Glucose (mg/dL) 403 H 341 H 185 H (75-99) mg/dL
[2021-02-18 15:21] LABS: Hemoglobin A1C 9.2 % (4.0-6.0)
[2021-02-18] MEDS: SODIUM CHLORIDE 0.9% 1,000 ML IV SCH (15:47)
[2021-02-18] MEDS: PANTOPRAZOLE 40 MG/10 ML VIAL IVP SCH (15:47)
[2021-02-18 17:24] LABS: Glucose,Whole Blood 180 mg/dL (75-99)
[2021-02-18 21:00] LABS: Glucose,Whole Blood 255 mg/dL (75-99)
[2021-02-18] MEDS: allopurinoL 300 MG TAB PO SCH (22:23)
[2021-02-18] MEDS: ATORVASTATIN 10 MG TAB PO SCH (22:23)
[2021-02-18] MEDS: amLODIPine 2.5 MG TAB PO SCH (22:23)
[2021-02-19] MEDS ORDERED: amLODIPine 5 MG TAB PO STA (02:56)
--- NOTE | 2021-02-19 02:58 | P.PN ---
Progress Note - Text Progress Note Date: 02/19/21 poorly controlled hypertension amlodipine dose adjusted from 2.5 to 5 mg QHS one time dose of norvasc 2.5 mg will be given now
[2021-02-19] MEDS: HYDROcodone/APAP 7.5-325MG 1 EACH TAB PO PRN ×4 (03:36→21:59)
[2021-02-19] MEDS: LEVOTHYROXINE 112 MCG TAB PO SCH (06:28)
[2021-02-19 07:36] LABS: Glucose,Whole Blood 90 mg/dL (75-99)
[2021-02-19] MEDS: HEPARIN SODIUM,PORCINE/PF 5,000 UNIT/0.5 ML SYRINGE SQ SCH ×2 (07:53→21:05)
[2021-02-19] MEDS: PANTOPRAZOLE 40 MG/10 ML VIAL IVP SCH (07:53)
[2021-02-19] MEDS: CHOLECALCIFEROL 25 MCG (1000 IU) TABLET PO SCH (07:54)
[2021-02-19] MEDS: GABAPENTIN 300 MG CAP PO SCH (07:54)
[2021-02-19] MEDS: lisinopriL 20 MG TAB PO SCH (07:55)
[2021-02-19] MEDS: METOPROLOL TARTRATE 50 MG TAB PO SCH ×2 (07:55→21:05)
[2021-02-19] MEDS: PRAMIPEXOLE 1 MG TAB PO SCH ×2 (07:55→21:05)
[2021-02-19] MEDS: THIAMINE 100 MG TAB PO SCH (07:55)
[2021-02-19] MEDS: INSULIN ASPART (NovoLOG) 100 UNIT/ML VIAL SQ SCH ×4 (07:56→21:05)
[2021-02-19] MEDS: INSULIN DETEMIR (LEVEMIR) 100 UNIT/ML SYR SQ SCH ×2 (07:56→21:08)
[2021-02-19] MEDS: FINASTERIDE 5 MG TAB PO SCH (07:56)
[2021-02-19] MEDS: SERTRALINE 50 MG TAB PO SCH (07:57)
[2021-02-19] MEDS: MORPHINE SULFATE 4 MG/ML SYRINGE IV PRN (08:15)
[2021-02-19 11:27] LABS: HCT 36.9 % (39.6-50.0); HGB 12.1 g/dL (13.0-17.0); MCH 29.4 pg (27.0-32.0); MCHC 32.8 g/dL (32.0-37.0); MCV 89.6 fL (80.0-97.0); Mean Platelet Volume 12.3 fL (9.5-12.2); Platelet Count 179 X 10*3/uL (140-440); RBC 4.12 X 10*6/uL (4.40-5.60); RDW 13.9 % (11.5-14.5); WBC 12.64 X 10*3/uL (4.50-10.00)
[2021-02-19 11:50] LABS: Glucose,Whole Blood 277 mg/dL (75-99)
[2021-02-19 12:52] LABS: African American GFR (CKD) 69.1 (60.0-200.0); Anion Gap 10.2 mmol/L (4.00-12.00); BUN/Creat Ratio 23.33 Ratio (12.00-20.00); Carbon Dioxide 22.8 mmol/L (21.6-31.8); Magnesium 1.9 mg/dL (1.5-2.4); Non-African American GFR(CKD) 59.6 (60.0-200.0); Potassium 3.7 mmol/L (3.5-5.5)
--- NOTE | 2021-02-19 14:37 | P.PN ---
Subjective Progress Note Date: 02/19/21 History of Presenting Illness: Patient is a very pleasant 75-year-old male with a past medical history of hypertension, hyperlipidemia, insulin-dependent diabetes mellitus, hypothyroidism, gout, depression, BPH, and neuropathy with restless leg syndrome. Patient presenting to the emergency department with a chief complaint of tremors/shakiness and weakness. Patient reports that upon getting out of bed this morning and walking to the bathroom he felt very weak and could not stop shaking. Patient reports his arms and legs were trembling/shaking so much and there was nothing he could do to make them stop. Patient denies falls or having any injuries. Just reports feeling weak and shaky and states that his restless legs are acting up again because he was late taking his medication. He was seen and fully evaluated in the emergency department and was found to have lactic acidosis with a lactic acid of 2.3, hyponatremia with sodium of 133, prerenal azotemia with BUN of 30, elevated CK 177, and hyperglycemia with glucose of 203. Patient admitted under our services for dehydration and lactic acidosis. Upon physical examination patient resting in bed. He denies having any recent infections or illnesses or being exposed to any known ill contact. Patient denies having any headache, lightheadedness, dizziness, changes in his vision or hearing, chest pain or palpitations, shortness of breath, abdominal pain, nausea, vomiting, changes in appetite, changes in or difficulties with bowel function, or experiencing any numbness/tingling in his extremities. Pt has chronic lower extremity edema in which he reports is at baseline. Subjective: Feels okay, no chest pain no abdominal pain no nausea no vomiting. Physically weak. Objective - Vital Signs Vital signs: Vital Signs Temp 98.6 F 02/19/21 07:00 Pulse 55 L 02/19/21 07:00 Resp 18 02/19/21 07:00 BP 176/76 02/19/21 07:00 Pulse Ox 97 02/19/21 07:00 Intake & Output 02/18/21 02/19/21 02/19/21 18:59 06:59 18:59 Intake Total 400 Output Total 340 Balance 60 Intake: IV 400 Sodium Chloride 0.9% 1, 400 000 ml @ 50 mls/hr IV . Q20H [facility] Rx#:[id number] Output: Urine 340 Other: Voiding Method Urinal # Voids 3 - Exam General: Nontoxic, no distress and appears stated age. Derm: Skin warm and dry, normal coloration for ethnicity. Head: Atraumatic, normocephalic and symmetric. Eyes: EOMs intact, no lid lag, and anicteric sclera Mouth: no lip lesions, mucus membranes moist Cardiovascular: regular rate and rhythm with normal S1S2, no murmur Lungs: Decreased breath sounds, no wheezing Abdominal: Obese abdomen soft, nontender to palpation, no guarding, no appreciable organomegaly Ext: ROM intact. No gross muscle atrophy, 1+ BLE pitting edema, no contractures Neuro: Speech clear, face symmetrical and CN II-XII grossly intact with no noted focal neuro deficits Psych: Alert and oriented to person, place, time, and situation. Appropriate and pleasant affect. - Labs CBC & Chem 7: 02/19/21 07:31 02/19/21 07:31 Labs: Abnormal Lab Results - Last 24 Hours (Table) 02/17/21 02/17/21 02/18/21 Range/Units 14:49 14:49 17:23 WBC (4.50-10.00) X 10*3/uL RBC (4.40-5.60) X 10*6/uL Hgb (13.0-17.0) g/dL Hct (39.6-50.0) % MPV (9.5-12.2) fL BUN (9.0-27.0) mg/dL Est GFR (CKD-EPI)NonAf (60.0-200.0) BUN/Creatinine Ratio (12.00-20.00) Ratio POC Glucose (mg/dL) 180 H (75-99) mg/dL Hemoglobin A1c 9.2 H (4.0-6.0) % TSH 12.710 H (0.350-5.500) uIU/mL 02/18/21 02/19/21 02/19/21 Range/Units 20:58 07:31 07:31 WBC 12.64 H (4.50-10.00) X 10*3/uL RBC 4.12 L (4.40-5.60) X 10*6/uL Hgb 12.1 L (13.0-17.0) g/dL Hct 36.9 L (39.6-50.0) % MPV 12.3 H (9.5-12.2) fL BUN 28.0 H (9.0-27.0) mg/dL Est GFR (CKD-EPI)NonAf 59.6 L (60.0-200.0) BUN/Creatinine Ratio 23.33 H (12.00-20.00) Ratio POC Glucose (mg/dL) 255 H (75-99) mg/dL Hemoglobin A1c (4.0-6.0) % TSH (0.350-5.500) uIU/mL 02/19/21 Range/Units 11:49 WBC (4.50-10.00) X 10*3/uL RBC (4.40-5.60) X 10*6/uL Hgb (13.0-17.0) g/dL Hct (39.6-50.0) % MPV (9.5-12.2) fL BUN (9.0-27.0) mg/dL Est GFR (CKD-EPI)NonAf (60.0-200.0) BUN/Creatinine Ratio (12.00-20.00) Ratio POC Glucose (mg/dL) 277 H (75-99) mg/dL Hemoglobin A1c (4.0-6.0) % TSH (0.350-5.500) uIU/mL Assessment and Plan Assessment: Leukocytosis with bilateral lower extremity weakness and tremors Prerenal azotemia -Concerns for medication effects/misuse vs infectious process vs dehydration -Covid 19 PCR negative, chest x-ray negative. Urinalysis negative -CT head showing mild atrophy, left maxillary sinusitis, negative for acute intercranial process. Continue IV fluids -Telemetry monitoring -Fall precautions -PT/OT consultation, recommending SNF placement -TSH with reflex free T4 results pending Normocytic normochromic anemia Stable hemoglobin 12.1 Monitor H&H Lactic acidosis likely resulting from dehydration, resolved Hyponatremia, resolved Insulin-dependent diabetes mellitus with hyperglycemia -Continue patient's home Levemir 40 units twice daily in place patient on glycemic protocol with NovoLog sliding scale. Hypothyroidism -Continue daily medication regimen with Synthroid 112 g daily. . TSH 1.7 Hypertension -Hold hydrochlorothiazide and continue daily medication regimen with metoprolol and amlodipine. Hyperlipidemia Continue statin CODE STATUS: Full code DVT prophylaxis: Heparin Discussed with: Patient, RN and case management Anticipated discharge date: Pending rehab
[2021-02-19 14:39] VITALS: BMI 35.4
[2021-02-19] MEDS: ACYCLOVIR 800 MG TAB PO SCH ×3 (16:40→23:43)
[2021-02-19 16:58] LABS: Glucose,Whole Blood 162 mg/dL (75-99)
[2021-02-19 20:30] LABS: Glucose,Whole Blood 244 mg/dL (75-99)
[2021-02-19] MEDS ORDERED: amLODIPine 5 MG TAB PO SCH (21:00)
[2021-02-19] MEDS: ATORVASTATIN 10 MG TAB PO SCH (21:05)
[2021-02-19] MEDS: allopurinoL 300 MG TAB PO SCH (21:05)
[2021-02-20] MEDS: MORPHINE SULFATE 4 MG/ML SYRINGE IV PRN ×2 (00:54→07:25)
[2021-02-20] MEDS: HYDROcodone/APAP 7.5-325MG 1 EACH TAB PO PRN (04:08)
[2021-02-20] MEDS: ACYCLOVIR 800 MG TAB PO SCH ×2 (05:31→13:29)
[2021-02-20] MEDS: LEVOTHYROXINE 112 MCG TAB PO SCH (05:31)
[2021-02-20] MEDS: SODIUM CHLORIDE 0.9% 1,000 ML IV SCH (05:32)
[2021-02-20 07:18] LABS: Glucose,Whole Blood 87 mg/dL (75-99)
[2021-02-20] MEDS: CHOLECALCIFEROL 25 MCG (1000 IU) TABLET PO SCH (07:29)
[2021-02-20] MEDS: INSULIN DETEMIR (LEVEMIR) 100 UNIT/ML SYR SQ SCH (07:29)
[2021-02-20] MEDS: FINASTERIDE 5 MG TAB PO SCH (07:29)
[2021-02-20] MEDS: PRAMIPEXOLE 1 MG TAB PO SCH (07:29)
[2021-02-20] MEDS: HEPARIN SODIUM,PORCINE/PF 5,000 UNIT/0.5 ML SYRINGE SQ SCH (07:29)
[2021-02-20] MEDS: lisinopriL 20 MG TAB PO SCH (07:30)
[2021-02-20] MEDS: THIAMINE 100 MG TAB PO SCH (07:30)
[2021-02-20] MEDS ORDERED: PANTOPRAZOLE 40 MG TABLET PO SCH (07:30)
[2021-02-20] MEDS: METOPROLOL TARTRATE 50 MG TAB PO SCH (07:30)
[2021-02-20] MEDS: GABAPENTIN 300 MG CAP PO SCH (07:31)
[2021-02-20] MEDS: INSULIN ASPART (NovoLOG) 100 UNIT/ML VIAL SQ SCH ×2 (07:39→13:29)
[2021-02-20] MEDS: SERTRALINE 50 MG TAB PO SCH (08:11)
[2021-02-20 09:43] VITALS: BP 162/81; PULSE 49; RESP 17; TEMP 98.1
[2021-02-20 11:47] LABS: Basophils # (A) 0.04 X 10*3/uL (0.00-0.10); Basophils % (A) 0.4 %; Eosinophils # (A) 0.24 X 10*3/uL (0.04-0.35); Eosinophils % (A) 2.4 %; HCT 35.3 % (39.6-50.0); HGB 11.6 g/dL (13.0-17.0); Lymphocytes # (A) 2.11 X 10*3/uL (0.90-5.00); MCH 29.4 pg (27.0-32.0); MCHC 32.9 g/dL (32.0-37.0); MCV 89.6 fL (80.0-97.0); Mean Platelet Volume 12.1 fL (9.5-12.2); Monocytes # (A) 0.84 X 10*3/uL (0.20-1.00); Monocytes % (A) 8.3 %; Neutrophils # (A) 6.76 X 10*3/uL (1.80-7.70); Neutrophils % (A) 67.2 %; Platelet Count 167 X 10*3/uL (140-440); RBC 3.94 X 10*6/uL (4.40-5.60); WBC 10.06 X 10*3/uL (4.50-10.00)
[2021-02-20 12:11] LABS: African American GFR (CKD) 69.1 (60.0-200.0); Albumin 3.5 g/dL (3.80-4.90); Albumin/Globulin Ratio 1.52 (1.60-3.17); Anion Gap 7.2 mmol/L (4.00-12.00); BUN/Creat Ratio 22.5 Ratio (12.00-20.00); Calcium 8.6 mg/dL (8.7-10.3); Carbon Dioxide 25.8 mmol/L (21.6-31.8); Globulin 2.3 g/dL (1.6-3.3); Non-African American GFR(CKD) 59.6 (60.0-200.0); Total Bilirubin 0.7 mg/dL (0.2-1.2); Total Protein 5.8 g/dL (6.2-8.2)
--- NOTE | 2021-02-20 12:17 | P.DS ---
Providers Date of admission: 02/18/21 15:46 Attending physician: Ion Low MD Primary care physician: Emely Davis MD Hospital Course: History of Presenting Illness: Patient is a very pleasant 75-year-old male with a past medical history of hypertension, hyperlipidemia, insulin-dependent diabetes mellitus, hypothyroidism, gout, depression, BPH, and neuropathy with restless leg syndrome. Patient presenting to the emergency department with a chief complaint of tremors/shakiness and weakness. Patient reports that upon getting out of bed this morning and walking to the bathroom he felt very weak and could not stop shaking. Patient reports his arms and legs were trembling/shaking so much and there was nothing he could do to make them stop. Patient denies falls or having any injuries. Just reports feeling weak and shaky and states that his restless legs are acting up again because he was late taking his medication. He was seen and fully evaluated in the emergency department and was found to have lactic acidosis with a lactic acid of 2.3, hyponatremia with sodium of 133, prerenal azotemia with BUN of 30, elevated CK 177, and hyperglycemia with glucose of 203. Patient admitted under our services for dehydration and lactic acidosis. Upon physical examination patient resting in bed. He denies having any recent infections or illnesses or being exposed to any known ill contact. Patient denies having any headache, lightheadedness, dizziness, changes in his vision or hearing, chest pain or palpitations, shortness of breath, abdominal pain, nausea, vomiting, changes in appetite, changes in or difficulties with bowel function, or experiencing any numbness/tingling in his extremities. Pt has chronic lower extremity edema in which he reports is at baseline. Hospital course and treatment: Patient was admitted to the hospital with tremors and shakiness. He was found to have leukocytosis of unspecified significance which resolved with IV fluid resuscitation. Head CT was negative for acute findings. Lactic Acidosis from Volume Depletion Resolved. He was also found to have hyponatremia which resolved. He had skin lesions on his back likely consistent with shingles and was started on acyclovir. Patient was evaluated by PT OT, rehab was recommended. Patient will be discharged to rehab. Diagnoses upon discharge: Leukocytosis with bilateral lower extremity weakness and tremors Prerenal azotemia Normocytic normochromic anemia Lactic acidosis likely resulting from dehydration, resolved Hyponatremia, resolved Insulin-dependent diabetes mellitus with hyperglycemia Hypothyroidism Hypertension Hyperlipidemia Skin shingles on the back Patient Condition at Discharge: Fair Plan - Discharge Summary New Discharge Prescriptions: New Acyclovir [Zovirax] 800 mg PO 5XD 5 Days #5 tab Gabapentin [Neurontin] 300 mg PO DAILY #2 cap amLODIPine [Norvasc] 5 mg PO HS #30 tab Continue Cholecalciferol [Vitamin D3 (25 Mcg = 1000 Iu)] 2,000 unit PO DAILY Metoprolol Tartrate [Lopressor] 50 mg PO BID Lovastatin [Mevacor] 20 mg PO HS lisinopriL [Zestril] 40 mg PO DAILY Levothyroxine Sodium [Synthroid] 112 mcg PO DAILY Insulin Detemir [Levemir Flextouch Pen] 40 units SQ BID Finasteride [Proscar] 5 mg PO DAILY allopurinoL [Zyloprim] 300 mg PO HS Hydrochlorothiazide [hydroCHLOROthiazide] 12.5 mg PO Q48H Pramipexole [Mirapex] 1 mg PO BID HYDROcodone/APAP 7.5-325MG [[place] 7.5-325] 1 tab PO Q6HR PRN 2 Days #8 tab PRN Reason: Pain Gabapentin [Neurontin] 300 mg PO DAILY Sertraline [Zoloft] 50 mg PO DAILY Thiamine [Vitamin B-1] 100 mg PO DAILY Discontinued amLODIPine [Norvasc] 2.5 mg PO HS traZODone HCL [Desyrel] 100 mg PO HS Discharge Medication List Cholecalciferol [Vitamin D3 (25 Mcg = 1000 Iu)] 2,000 unit PO DAILY 05/17/17 [History] Finasteride [Proscar] 5 mg PO DAILY 05/17/17 [History] Insulin Detemir [Levemir Flextouch Pen] 40 units SQ BID 05/17/17 [History] Levothyroxine Sodium [Synthroid] 112 mcg PO DAILY 05/17/17 [History] Lovastatin [Mevacor] 20 mg PO HS 05/17/17 [History] Metoprolol Tartrate [Lopressor] 50 mg PO BID 05/17/17 [History] allopurinoL [Zyloprim] 300 mg PO HS 05/17/17 [History] lisinopriL [Zestril] 40 mg PO DAILY 05/17/17 [History] Gabapentin [Neurontin] 300 mg PO DAILY 02/17/21 [History] Hydrochlorothiazide [hydroCHLOROthiazide] 12.5 mg PO Q48H 02/17/21 [History] Pramipexole [Mirapex] 1 mg PO BID 02/17/21 [History] Sertraline [Zoloft] 50 mg PO DAILY 02/17/21 [History] Thiamine [Vitamin B-1] 100 mg PO DAILY 02/17/21 [History] Acyclovir [Zovirax] 800 mg PO 5XD 5 Days #5 tab 02/20/21 [Rx] Gabapentin [Neurontin] 300 mg PO DAILY #2 cap 02/20/21 [Rx] HYDROcodone/APAP 7.5-325MG [[place] 7.5-325] 1 tab PO Q6HR PRN 2 Days #8 tab 02/20/21 [Rx] amLODIPine [Norvasc] 5 mg PO HS #30 tab 02/20/21 [Rx] Follow up Appointment(s)/Referral(s): Emely Davis MD [Primary Care Provider] - 1-2 days Discharge Disposition: TRANSFER TO SNF/ECF
[2021-02-20 12:20] LABS: Glucose,Whole Blood 139 mg/dL (75-99)
== END 2021-02-20 13:50 | DRG 641 ==
LOC: EC 04:02 → 6NMEDSUR 05:59 → OBSVTOIN 02-18 15:46
PROVIDERS: ADMIT Internal Medicine; ATTEND Internal Medicine
DX: E87.1 Hypo-osmolality and hyponatremia (principal); E11.40 Type 2 diabetes mellitus with diabetic neuropathy, unspecified; E87.2 Acidosis; B02.9 Zoster without complications; D64.9 Anemia, unspecified; D72.829 Elevated white blood cell count, unspecified; E03.9 Hypothyroidism, unspecified; E11.65 Type 2 diabetes mellitus with hyperglycemia; Z79.4 Long term (current) use of insulin; Z20.822 Contact with and (suspected) exposure to COVID-19; E86.0 Dehydration; I10 Essential (primary) hypertension; E78.5 Hyperlipidemia, unspecified; M10.9 Gout, unspecified; G25.81 Restless legs syndrome; N40.0 Benign prostatic hyperplasia without lower urinary tract symptoms; F32.9 Major depressive disorder, single episode, unspecified; J32.0 Chronic maxillary sinusitis; E66.9 Obesity, unspecified; Z68.35 Body mass index [BMI] 35.0-35.9, adult; Z79.890 Hormone replacement therapy; Z79.899 Other long term (current) drug therapy; Z85.828 Personal history of other malignant neoplasm of skin; Z98.1 Arthrodesis status; Z98.890 Other specified postprocedural states; Z71.3 Dietary counseling and surveillance; Z88.1 Allergy status to other antibiotic agents; Z88.8 Allergy status to other drugs, medicaments and biological substances; Z82.49 Family history of ischemic heart disease and other diseases of the circulatory system
CPT/HCPCS: 36415; 70450; 71045; 80048; 80053; 81001; 82550; 83036; 83605; 83735; 84100; 84439; 84443; 84484; 85025; 85027; 85610; 85730; 87635; 93005; 94760; 96360; 96361; 99285

== ENCOUNTER 2021-04-16 09:11 | Emergency (ER) | payer MEDICARE, OTHER ==
[2021-04-16] MEDS ORDERED: SODIUM CHLORIDE 0.9% 1,000 ML IV STA (09:14)
[2021-04-16 09:21] VITALS: RESP 18; TEMP 97.9
[2021-04-16 10:14] LABS: Albumin 3.4 g/dL (3.5-5.0); Basophils % (A) 0 %; Eosinophils # (A) 0.1 k/uL (0-0.7); Eosinophils % (A) 1 %; HCT 37.1 % (39.0-53.0); HGB 12.8 gm/dL (13.0-17.5); Lymphocytes % (A) 10 %; MCH 30.4 pg (25.0-35.0); MCHC 34.4 g/dL (31.0-37.0); MCV 88.5 fL (80.0-100.0); Mean Platelet Volume 9.6; Monocytes # (A) 0.6 k/uL (0-1.0); Monocytes % (A) 6 %; Neutrophils # (A) 7.6 k/uL (1.3-7.7); Neutrophils % (A) 81 %; Platelet Count 182 k/uL (150-450); RDW 15.5 % (11.5-15.5); Total Protein 6.4 g/dL (6.3-8.2); WBC 9.4 k/uL (3.8-10.6)
--- NOTE | 2021-04-16 10:23 | XR ---
EXAMINATION TYPE: XR chest 2V DATE OF EXAM: 04/16/2021 COMPARISON: 02/17/2021 HISTORY: 75-year-old male nausea, vomiting, muscle aches TECHNIQUE: AP and lateral views FINDINGS: Heart upper limits of normal in size. Aorta within normal limits. Mild interstitial density appears t o have increased from prior. Some mild patchy density at the left base may represent atelectasis. Dis h in the mid to lower thoracic spine. No pleural effusion. IMPRESSION: Increased interstitial density. Atypical pneumonias, bronchitis, or interstitial pneumonitis not excl uded.
[2021-04-16 10:24] LABS: Potassium 4.4 mmol/L (3.5-5.1)
[2021-04-16] MEDS ORDERED: ONDANSETRON 4 MG/2 ML VIAL IVP STA (10:31)
--- NOTE | 2021-04-16 10:31 | ED ---
Nausea/Vomiting/Diarrhea HPI - General Chief complaint: Nausea/Vomiting/Diarrhea Stated complaint: Nausea Time Seen by Provider: 04/16/21 09:13 Source: patient, EMS, RN notes reviewed Mode of arrival: EMS Limitations: no limitations - History of Present Illness Initial comments: Patient is a 75-year-old male brought emergency department via EMS for a 2 day history of nausea vomiting general muscle aches. He notes that he is having some abdominal discomfort. He notes it is more upset stomach feeling them pain. He notes that he is vaccinated for Covid but has not cut his posterior. He notes that he is more concerned for dehydration as she has no appetite has been drinking very much. Patient was otherwise a well-appearing 75-year-old male. He denied any other issues or complaints. He denied chest pain shortness of breath headache vomiting diarrhea constipation fever fatigue chills. - Related Data Home Medications Medication Instructions Recorded Confirmed Cholecalciferol [Vitamin D3 (25 2,000 unit PO DAILY 05/17/17 02/17/21 Mcg = 1000 Iu)] Finasteride [Proscar] 5 mg PO DAILY 05/17/17 02/17/21 Insulin Detemir [Levemir Flextouch 40 units SQ BID 05/17/17 02/17/21 Pen] Levothyroxine Sodium [Synthroid] 112 mcg PO DAILY 05/17/17 02/17/21 Lovastatin [Mevacor] 20 mg PO HS 05/17/17 02/17/21 Metoprolol Tartrate [Lopressor] 50 mg PO BID 05/17/17 02/17/21 allopurinoL [Zyloprim] 300 mg PO HS 05/17/17 02/17/21 lisinopriL [Zestril] 40 mg PO DAILY 05/17/17 02/17/21 Hydrochlorothiazide 12.5 mg PO Q48H 02/17/21 02/17/21 [hydroCHLOROthiazide] Pramipexole [Mirapex] 1 mg PO BID 02/17/21 02/17/21 Sertraline [Zoloft] 50 mg PO DAILY 02/17/21 02/17/21 Thiamine [Vitamin B-1] 100 mg PO DAILY 02/17/21 02/17/21 Previous Rx's Medication Instructions Recorded Acyclovir [Zovirax] 800 mg PO 5XD 5 Days #5 tab 02/20/21 Gabapentin [Neurontin] 300 mg PO DAILY #2 cap 02/20/21 Gabapentin [Neurontin] 300 mg PO DAILY #2 cap 02/20/21 HYDROcodone/APAP 7.5-325MG [[place] 1 each PO Q6HR PRN 2 Days #8 tab 02/20/21 7.5-325] HYDROcodone/APAP 7.5-325MG [[place] 1 tab PO Q6HR PRN 2 Days #8 tab 02/20/21 7.5-325] amLODIPine [Norvasc] 5 mg PO HS #30 tab 02/20/21 Allergies Allergy/AdvReac Type Severity Reaction Status Date / Time enalaprilat [From Vasotec] Allergy felt weak, Verified 04/16/21 09:26 couldn't talk erythromycin base AdvReac Nausea & Verified 04/16/21 09:26 [From Erythrocin] Vomiting Review of Systems ROS Statement: Those systems with pertinent positive or pertinent negative responses have been documented in the HPI. ROS Other: All systems not noted in ROS Statement are negative. Past Medical History Past Medical History: Cancer, Diabetes Mellitus, Hyperlipidemia, Hypertension, Prostate Disorder, Thyroid Disorder Additional Past Medical History / Comment(s): sciatia, skin cancer, past sinusits, cervical myelopathy History of Any Multi-Drug Resistant Organisms: None Reported Past Surgical History: No Surgical Hx Reported Additional Past Surgical History / Comment(s): sinus sx. cancer removed lt ear. colonoscopy 07-07-17 anterior cervical decompression/discectomy/fusion c3-4, c4-5 Past Anesthesia/Blood Transfusion Reactions: No Reported Reaction Past Psychological History: No Psychological Hx Reported Smoking Status: Never smoker Past Alcohol Use History: None Reported Past Drug Use History: None Reported - Past Family History Father Additional Family Medical History / Comment(s): aoric aneurysm General Exam Limitations: no limitations General appearance: alert, in no apparent distress, obese Head exam: Present: atraumatic, normocephalic, normal inspection Eye exam: Present: normal appearance, PERRL, EOMI. Absent: scleral icterus, conjunctival injection, periorbital swelling ENT exam: Present: normal exam, mucous membranes moist Neck exam: Present: normal inspection Respiratory exam: Present: normal lung sounds bilaterally. Absent: respiratory distress, wheezes, rales, rhonchi, stridor Cardiovascular Exam: Present: regular rate, normal rhythm, normal heart sounds. Absent: systolic murmur, diastolic murmur, rubs, gallop, clicks GI/Abdominal exam: Present: soft, normal bowel sounds. Absent: distended, tende rness, guarding, rebound, rigid Extremities exam: Present: normal inspection, full ROM, normal capillary refill. Absent: tenderness, pedal edema, joint swelling, calf tenderness Neurological exam: Present: alert, oriented X3 Psychiatric exam: Present: normal affect, normal mood Skin exam: Present: warm, dry, intact, normal color. Absent: rash Course Vital Signs 04/16/21 09:17 Temperature 97.9 F Pulse Rate 60 Respiratory 18 Rate Blood Pressure 194/79 O2 Sat by Pulse 96 Oximetry Medical Decision Making - Medical Decision Making 75-year-old male with abdominal upset, nausea and muscle fatigue aches 2 days. Labs, chest x-ray, 1 L normal saline ordered. Labs unremarkable, similar to baseline. Chest x-ray shows possible atypical pneumonia, bronchitis or pneumonitis. Patient's vital signs are otherwise stable. He was informed that he most likely has a viral GI bug. Patient is agreeable with discharge home with conservative management. Case discussed with Dr. Olmstead, patient can discharge home. - Lab Data Result diagrams: 04/16/21 09:31 04/16/21 09:31 Lab Results 04/16/21 04/16/21 04/16/21 Range/Units 09:31 09:31 09:31 WBC 9.4 (3.8-10.6) k/uL RBC 4.20 L (4.30-5.90) m/uL Hgb 12.8 L (13.0-17.5) gm/dL Hct 37.1 L (39.0-53.0) % MCV 88.5 (80.0-100.0) fL MCH 30.4 (25.0-35.0) pg MCHC 34.4 (31.0-37.0) g/dL RDW 15.5 (11.5-15.5) % Plt Count 182 (150-450) k/uL MPV 9.6 Neutrophils % 81 % Lymphocytes % 10 % Monocytes % 6 % Eosinophils % 1 % Basophils % 0 % Neutrophils # 7.6 (1.3-7.7) k/uL Lymphocytes # 1.0 (1.0-4.8) k/uL Monocytes # 0.6 (0-1.0) k/uL Eosinophils # 0.1 (0-0.7) k/uL Basophils # 0.0 (0-0.2) k/uL Sodium 134 L (137-145) mmol/L Potassium 4.4 (3.5-5.1) mmol/L Chloride 106 (98-107) mmol/L Carbon Dioxide 21 L (22-30) mmol/L Anion Gap 7 mmol/L BUN 24 H (9-20) mg/dL Creatinine 1.13 (0.66-1.25) mg/dL Est GFR (CKD-EPI)AfAm 75 (>60 ml/min/1.73 sqM) Est GFR (CKD-EPI)NonAf 64 (>60 ml/min/1.73 sqM) Glucose 148 H (74-99) mg/dL Calcium 9.0 (8.4-10.2) mg/dL Total Bilirubin 1.0 (0.2-1.3) mg/dL AST 45 (17-59) U/L ALT 21 (4-49) U/L Alkaline Phosphatase 50 (38-126) U/L Total Protein 6.4 (6.3-8.2) g/dL Albumin 3.4 L (3.5-5.0) g/dL Coronavirus (PCR) Not Detected (Not Detectd) - Radiology Data Radiology results: report reviewed, image reviewed Chest x-ray: Increased interstitial density. Atypical pneumonias bronchitis or interstitial pneumonitis not excluded. Disposition Clinical Impression: Dehydration, Gastroenteritis Disposition: HOME SELF-CARE Condition: Stable Instructions (If sedation given, give patient instructions): Acute Nausea and Vomiting (ED) Additional Instructions: Please return to the Emergency Department if symptoms worsen or any other concerns. Follow-up with primary care 1-2 days. Take Zofran as prescribed. Increase daily oral fluids. Is patient prescribed a controlled substance at d/c from ED?: No Referrals: Emely Davis MD [Primary Care Provider] - 1-2 days Time of Disposition: 10:31
[2021-04-16] MEDS ORDERED: ONDANSETRON 4 MG ODT STARTER PACK 2 TAB BTL PO STA (11:13)
[2021-04-16 11:19] VITALS: BP 161/72; PULSE 75
== END 2021-04-16 11:19 | disposition home or self-care (01) ==
LOC: EC 09:11
DX: E86.0 Dehydration (principal); K52.9 Noninfective gastroenteritis and colitis, unspecified; E11.9 Type 2 diabetes mellitus without complications; I10 Essential (primary) hypertension; E78.5 Hyperlipidemia, unspecified; E66.9 Obesity, unspecified; Z79.4 Long term (current) use of insulin; Z79.899 Other long term (current) drug therapy; Z88.1 Allergy status to other antibiotic agents; Z85.828 Personal history of other malignant neoplasm of skin; Z79.890 Hormone replacement therapy; Z68.32 Body mass index [BMI] 32.0-32.9, adult
CPT/HCPCS: 36415; 80053; 85025; 87635; 71046; 99284; 96374; 96361; J2405; S0119

== ENCOUNTER 2021-04-19 13:03 | Inpatient (IN) | payer MEDICARE, OTHER ==
--- NOTE | 2021-04-19 13:40 | ED ---
General Adult HPI - General Source: patient, RN notes reviewed, old records reviewed Mode of arrival: wheelchair Limitations: no limitations <Juan Manuel Alba - Last Filed: 04/19/21 14:42> <Vikas Wood - Last Filed: 04/19/21 15:51> - General Chief complaint: Recheck/Abnormal Lab/Rx Stated complaint: HBP Time Seen by Provider: 04/19/21 13:10 - History of Present Illness Initial comments: This is a 75-year-old male who presents emergency Department because his blood pressure was elevated home and occupation therapy wanted him to come the scene. Patient states he's a little bit lightheaded but other than that he feels Fine. Patient States He Is Getting over a Bout of Gastroenteritis and Today's Had No Vomiting or Diarrhea. Patient Denies Any Chest Pain or Palpitations. Patient Denies Shortness of Breath or Difficulty Breathing. Patient Denies Any Headache Patient Denies Numbness or Weakness. Patient Denies Any Swelling to the Legs or Calf Tenderness. Patient Denies Any Recent Fever Chills or Cough. (Juan Manuel Alba) - Related Data Home Medications Medication Instructions Recorded Confirmed Cholecalciferol [Vitamin D3 (25 1,000 unit PO HS 05/17/17 04/19/21 Mcg = 1000 Iu)] Finasteride [Proscar] 5 mg PO DAILY 05/17/17 04/19/21 Insulin Detemir [Levemir Flextouch 80 units SQ DAILY 05/17/17 04/19/21 Pen] Levothyroxine Sodium [Synthroid] 112 mcg PO DAILY 05/17/17 04/19/21 Lovastatin [Mevacor] 20 mg PO HS 05/17/17 04/19/21 Metoprolol Tartrate [Lopressor] 50 mg PO BID 05/17/17 04/19/21 allopurinoL [Zyloprim] 300 mg PO HS 05/17/17 04/19/21 lisinopriL [Zestril] 40 mg PO DAILY 05/17/17 04/19/21 Hydrochlorothiazide 12.5 mg PO DAILY 02/17/21 04/19/21 [hydroCHLOROthiazide] Pramipexole [Mirapex] 1 mg PO BID 02/17/21 04/19/21 Sertraline [Zoloft] 100 mg PO HS 02/17/21 04/19/21 Gabapentin [Neurontin] 300 mg PO TID PRN 04/19/21 04/19/21 Ondansetron Odt [Zofran Odt] 4 mg PO Q12HR PRN 04/19/21 04/19/21 Vitamin B Complex 1 cap PO DAILY 04/19/21 04/19/21 amLODIPine [Norvasc] 2.5 mg PO DAILY 04/19/21 04/19/21 traZODone HCL [Desyrel] 100 - 200 mg PO HS PRN 04/19/21 04/19/21 Previous Rx's Medication Instructions Recorded HYDROcodone/APAP 7.5-325MG [[place] 1 tab PO Q6HR PRN 2 Days #8 tab 02/20/21 7.5-325] Allergies Allergy/AdvReac Type Severity Reaction Status Date / Time enalaprilat [From Vasotec] Allergy felt weak, Verified 04/19/21 13:39 couldn't talk erythromycin base AdvReac Nausea & Verified 04/19/21 13:39 [From Erythrocin] Vomiting Review of Systems ROS Other: All systems not noted in ROS Statement are negative. <Juan Manuel Alba - Last Filed: 04/19/21 14:42> ROS Other: All systems not noted in ROS Statement are negative. <Vikas Wood - Last Filed: 04/19/21 15:51> ROS Statement: Those systems with pertinent positive or pertinent negative responses have been documented in the HPI. Past Medical History Past Medical History: Cancer, Diabetes Mellitus, Hyperlipidemia, Hypertension, Prostate Disorder, Thyroid Disorder Additional Past Medical History / Comment(s): sciatia, skin cancer, past sinu sits, cervical myelopathy History of Any Multi-Drug Resistant Organisms: None Reported Past Surgical History: No Surgical Hx Reported Additional Past Surgical History / Comment(s): sinus sx. cancer removed lt ear. colonoscopy 07-07-17 anterior cervical decompression/discectomy/fusion c3-4, c4-5 Past Anesthesia/Blood Transfusion Reactions: No Reported Reaction Past Psychological History: No Psychological Hx Reported Smoking Status: Never smoker Past Alcohol Use History: None Reported Past Drug Use History: None Reported - Past Family History Father Additional Family Medical History / Comment(s): aoric aneurysm <Juan Manuel Alba - Last Filed: 04/19/21 14:42> General Exam Limitations: no limitations <Alba,Juan Manuel - Last Filed: 04/19/21 14:42> - General Exam Comments Initial Comments: GENERAL: Patient is well-developed and well-nourished. Patient is nontoxic and well- hydrated and is in no acute distress. ENT: Neck is soft and supple. No significant lymphadenopathy is noted. Oropharynx is clear. Moist mucous membranes. Neck has full range of motion without eliciting any pain. EYES: The sclera were anicteric and conjunctiva were pink and moist. Extraocular movements were intact and pupils were equal round and reactive to light. Eyelids were unremarkable. PULMONARY: Unlabored respirations. Good breath sounds bilaterally. No audible rales rhonchi or wheezing was noted. CARDIOVASCULAR: Bradycardic at 50 ABDOMEN: Soft and nontender with normal bowel sounds. No palpable organomegaly was noted. There is no palpable pulsatile mass. SKIN: Skin is clear with no lesions or rashes and otherwise unremarkable. NEUROLOGIC: Patient is alert and oriented x3. Cranial nerves II through XII are grossly intact. Motor and sensory are also intact. Normal speech, volume and content. Symmetrical smile. MUSCULOSKELETAL: Normal extremities with adequate strength and full range of motion. No lower extremity swelling or edema. No calf tenderness. LYMPHATICS: No significant lymphadenopathy is noted PSYCHIATRIC: Normal psychiatric evaluation. (Juan Manuel Alba) Course <Vikas Wood - Last Filed: 04/19/21 15:51> Vital Signs 04/19/21 04/19/21 04/19/21 13:07 14:17 14:57 Temperature 98.5 F Pulse Rate 55 L 45 L Pulse Rate [ 48 L Field Control Inspector ] Respiratory 18 18 18 Rate Blood Pressure 174/80 164/72 Blood Pressure 178/85 [Right Arm Sitting] Blood Pressure 167/77 [Right Arm Supine] Blood Pressure 184/85 [Standing] O2 Sat by Pulse 97 94 L 96 Oximetry 04/19/21 15:39 Temperature Pulse Rate Pulse Rate [ 54 L Field Control Inspector ] Respiratory Rate Blood Pressure Blood Pressure [Right Arm Sitting] Blood Pressure [Right Arm Supine] Blood Pressure 167/72 [Standing] O2 Sat by Pulse Oximetry - Reevaluation(s) Reevaluation #1: 04/19/21 15:35 Patient was endorsed to me by Dr. Alba (secondary to shift change) with the patient's labs still pending. Dr. Alba felt that the patient should be admitted to the hospital for symptomatic bradycardia. Patient's labs were reviewed myself and are fairly unremarkable. Patient remains in sinus bradycardia on the potline monitor. Patient denies development of any new symptoms while in the ED. Patient is aware of his test results, and he agrees with hospital admission at this time. 04/19/21 15:47 Case, test results and ED management were discussed with Dr. Zimmer. She accepts hospital admission. She has no further recommendations at this time. (Vikas Wood) Medical Decision Making <Juan Manuel Alba - Last Filed: 04/19/21 14:42> - Lab Data Result diagrams: 04/19/21 14:51 04/19/21 14:51 <Vikas Wood - Last Filed: 04/19/21 15:51> - Medical Decision Making EKG shows bradycardia at 43 bpm MD interval 170 QRS is 84 Q-T intervals 46 QTC is 410. Patient's EKG shows no ST segment elevation or depression. Dr. Wood will be taking over the care of this patient at 3 PM (Juan Manuel Alba) Patient's EKG shows sinus bradycardia. Patient's labs are fairly unremarkable. Patient will be admitted for sinus bradycardia, hypertension and lightheadedness. Dr. Zimmer has accepted hospital admission. (Vikas Wood) - Lab Data Lab Results 04/19/21 04/19/21 04/19/21 Range/Units 14:51 14:51 14:51 WBC 8.9 (3.8-10.6) k/uL RBC 4.34 (4.30-5.90) m/uL Hgb 12.8 L (13.0-17.5) gm/dL Hct 39.3 (39.0-53.0) % MCV 90.7 (80.0-100.0) fL MCH 29.5 (25.0-35.0) pg MCHC 32.5 (31.0-37.0) g/dL RDW 14.6 (11.5-15.5) % Plt Count 182 (150-450) k/uL MPV 8.9 Neutrophils % 71 % Lymphocytes % 18 % Monocytes % 6 % Eosinophils % 3 % Basophils % 0 % Neutrophils # 6.3 (1.3-7.7) k/uL Lymphocytes # 1.6 (1.0-4.8) k/uL Monocytes # 0.6 (0-1.0) k/uL Eosinophils # 0.2 (0-0.7) k/uL Basophils # 0.0 (0-0.2) k/uL Sodium 136 L (137-145) mmol/L Potassium 4.1 (3.5-5.1) mmol/L Chloride 105 (98-107) mmol/L Carbon Dioxide 25 (22-30) mmol/L Anion Gap 6 mmol/L BUN 22 H (9-20) mg/dL Creatinine 1.16 (0.66-1.25) mg/dL Est GFR (CKD-EPI)AfAm 72 (>60 ml/min/1.73 sqM) Est GFR (CKD-EPI)NonAf 63 (>60 ml/min/1.73 sqM) Glucose 117 H (74-99) mg/dL Calcium 9.0 (8.4-10.2) mg/dL Magnesium 2.0 (1.6-2.3) mg/dL Total Bilirubin 0.6 (0.2-1.3) mg/dL AST 36 (17-59) U/L ALT 30 (4-49) U/L Alkaline Phosphatase 61 (38-126) U/L Troponin I <0.012 (0.000-0.034) ng/mL Total Protein 6.4 (6.3-8.2) g/dL Albumin 3.5 (3.5-5.0) g/dL Disposition <Juan Manuel Alba - Last Filed: 04/19/21 14:42> Is patient prescribed a controlled substance at d/c from ED?: No Time of Disposition: 15:50 <Vikas Wood - Last Filed: 04/19/21 15:51> Clinical Impression: Lightheaded, Bradycardia, Hypertension Disposition: ADMITTED IP TO THIS HOSP Condition: Stable Referrals: Emely Davis MD [Primary Care Provider] - 1-2 days
[2021-04-19] MEDS ORDERED: hydrALAZINE HCL 20 MG/ML 1 ML VIAL IVP STA (14:40)
[2021-04-19 15:03] LABS: Basophils % (A) 0 %; Eosinophils # (A) 0.2 k/uL (0-0.7); Eosinophils % (A) 3 %; HCT 39.3 % (39.0-53.0); HGB 12.8 gm/dL (13.0-17.5); Lymphocytes # (A) 1.6 k/uL (1.0-4.8); Lymphocytes % (A) 18 %; MCH 29.5 pg (25.0-35.0); MCHC 32.5 g/dL (31.0-37.0); MCV 90.7 fL (80.0-100.0); Mean Platelet Volume 8.9; Monocytes # (A) 0.6 k/uL (0-1.0); Monocytes % (A) 6 %; Neutrophils # (A) 6.3 k/uL (1.3-7.7); Neutrophils % (A) 71 %; Platelet Count 182 k/uL (150-450); RBC 4.34 m/uL (4.30-5.90); RDW 14.6 % (11.5-15.5); WBC 8.9 k/uL (3.8-10.6)
[2021-04-19 15:14] LABS: Albumin 3.5 g/dL (3.5-5.0); Potassium 4.1 mmol/L (3.5-5.1); Total Bilirubin 0.6 mg/dL (0.2-1.3); Total Protein 6.4 g/dL (6.3-8.2)
[2021-04-19] MEDS ORDERED: GABAPENTIN 300 MG CAP PO PRN (15:52)
[2021-04-19] MEDS ORDERED: ONDANSETRON ODT 4 MG TAB PO PRN (16:56)
[2021-04-19] MEDS ORDERED: traZODone HCL 100 MG TAB PO PRN (16:56)
[2021-04-19] MEDS: HYDROcodone/APAP 7.5-325MG 1 EACH TAB PO PRN ×2 (17:26→23:00)
--- NOTE | 2021-04-19 17:30 | P.HPIM ---
<Neil Way - Last Filed: 04/19/21 17:22> History of Present Illness H&P Date: 04/19/21 History of Presenting Illness: Patient is a very pleasant 75-year-old male with a past medical history of hypertension, hyperlipidemia, insulin-dependent diabetes mellitus, hypothyroidism, BPH, restless leg syndrome, and neuropathy. He presented to the emergency department with a chief complaint of dizziness/lightheadedness. He states he was at home working with physical/occupational therapy when he became lightheaded/dizzy and they recommended him coming to the emergency department for evaluation. In the emergency department, patient was found to have bradycardia with heart rate in 40s. An EKG was completed revealing sinus bradycardia at 43 bpm with no noted T-wave or ST abnormalities. Labs completed. CBC and BMP unremarkable. Troponin normal findings at less than 0.012. Patient was admitted under our services with consultation to cardiology. Upon physical examination and patient resting in bed reports feeling very shaky and lightheaded. Patient reports feeling as though he is dehydrated and states that his stomach is still upset. He reports that he recently had a short course of gastroenteritis in which he had been experiencing nausea, vomiting, and diarrhea which only stopped yesterday. Patient denies having any fevers, chills, diaphoresis, chest pain, palpitations, shortness of breath, dyspnea with exertion, abdominal pain or discomfort, or experiencing any numbness/tingling/weakness in his extremities. Patient states in addition to his dizziness/lightheadedness, nausea, and upset feeling in his stomach He also has chronic pain in bilateral shoulders and legs. Review of systems: Pertinent positives and negatives as discussed in HPI, a complete review of systems was performed and all other systems are negative. Physical exam: Vital signs reviewed and stable. General: Nontoxic, no distress and appears stated age. Derm: Skin warm and dry, normal coloration for ethnicity. Head: Atraumatic, normocephalic and symmetric. Eyes: EOMs intact, no lid lag, and anicteric sclera Mouth: no lip lesions, mucus membranes moist Cardiovascular: Bradycardic rate and rhythm with normal S1S2, no murmur, positive posterior tibial pulses bilaterally, and cap refill < 2 seconds. No lower extremity edema. Lungs: Respirations even, regular, and unlabored on room air. Lungs CTA bilaterally, no rhonchi, no rales, no wheezing, and no accessory muscle usage. Abdominal: soft, nontender to palpation, no guarding, no appreciable organomegaly Ext: ROM intact. No gross muscle atrophy, no edema, no contractures Neuro: Speech clear, face symmetrical and CN II-XII grossly intact with no noted focal neuro deficits Psych: Alert and oriented to person, place, time, and situation. Appropriate and pleasant affect. Assessment and Plan of Care: Symptomatic bradycardia Dizziness/lightheadedness Dehydration -EKG was completed revealing sinus bradycardia at 43 bpm with no noted T-wave or ST abnormalities. -Troponin normal findings at less than 0.012. -Telemetry monitoring -Orthostatic vitals -Fall precautions -Trend troponins -Consult to cardiology -Hold beta zurdo, metoprolol at this time -Echocardiogram -TSH Hypertension -Monitor vital signs. Hold beta zurdo metoprolol secondary to bradycardia. Continue daily medication regimen with amlodipine, hydrochlorothiazide, and lisinopril. Hyperlipidemia -Continue daily medication management with lovastatin. -Heart healthy diet Insulin-dependent diabetes mellitus Continue daily medication regimen with Levemir [address] patient on glycemic protocol with NovoLog sliding scale. Heart healthy carb consistent diet. Hypothyroidism Continue daily medication regimen with levothyroxine. BPH Continue daily medication regimen with finasteride Restless leg syndrome Neuropathy Continue daily medication regimen with Mirapex and Neurontin The patient is admitted with an anticipated less than than 2 midnight stay for evaluation of symptomatic bradycardia Surrogate decision-maker: Patient's CODE STATUS: Full code DVT prophylaxis: Heparin Discussed with: Patient Anticipated discharge date: 1-[address]: Home, back home with home care A total of 50 minutes was spent on the care of this complex patient more than 50% of the time was spent in counseling and care coordination. Past Medical History Past Medical History: Cancer, Diabetes Mellitus, Hyperlipidemia, Hypertension, Prostate Disorder, Thyroid Disorder Additional Past Medical History / Comment(s): sciatia, skin cancer, past sinusits, cervical myelopathy History of Any Multi-Drug Resistant Organisms: None Reported Past Surgical History: No Surgical Hx Reported Additional Past Surgical History / Comment(s): sinus sx. cancer removed lt ear. colonoscopy 07-07-17 anterior cervical decompression/discectomy/fusion c3-4, c4-5 Past Anesthesia/Blood Transfusion Reactions: No Reported Reaction Past Psychological History: No Psychological Hx Reported Smoking Status: Never smoker Past Alcohol Use History: None Reported Past Drug Use History: None Reported - Past Family History Father Additional Family Medical History / Comment(s): aoric aneurysm Medications and Allergies Home Medications Medication Instructions Recorded Confirmed Type Cholecalciferol [Vitamin D3 (25 1,000 unit PO HS 05/17/17 04/19/21 History Mcg = 1000 Iu)] Finasteride [Proscar] 5 mg PO DAILY 05/17/17 04/19/21 History Insulin Detemir [Levemir Flextouch 80 units SQ DAILY 05/17/17 04/19/21 History Pen] Levothyroxine Sodium [Synthroid] 112 mcg PO DAILY 05/17/17 04/19/21 History Lovastatin [Mevacor] 20 mg PO HS 05/17/17 04/19/21 History Metoprolol Tartrate [Lopressor] 50 mg PO BID 05/17/17 04/19/21 History allopurinoL [Zyloprim] 300 mg PO HS 05/17/17 04/19/21 History lisinopriL [Zestril] 40 mg PO DAILY 05/17/17 04/19/21 History Hydrochlorothiazide 12.5 mg PO DAILY 02/17/21 04/19/21 History [hydroCHLOROthiazide] Pramipexole [Mirapex] 1 mg PO BID 02/17/21 04/19/21 History Sertraline [Zoloft] 100 mg PO HS 02/17/21 04/19/21 History HYDROcodone/APAP 7.5-325MG [[place] 1 tab PO Q6HR PRN 2 Days #8 tab 02/20/21 04/19/21 Rx 7.5-325] Gabapentin [Neurontin] 300 mg PO TID PRN 04/19/21 04/19/21 History Ondansetron Odt [Zofran Odt] 4 mg PO Q12HR PRN 04/19/21 04/19/21 History Vitamin B Complex 1 cap PO DAILY 04/19/21 04/19/21 History amLODIPine [Norvasc] 2.5 mg PO DAILY 04/19/21 04/19/21 History traZODone HCL [Desyrel] 100 - 200 mg PO HS PRN 04/19/21 04/19/21 History Allergies Allergy/AdvReac Type Severity Reaction Status Date / Time enalaprilat [From Vasotec] Allergy felt weak, Verified 04/19/21 13:39 couldn't talk erythromycin base AdvReac Nausea & Verified 04/19/21 13:39 [From Erythrocin] Vomiting Physical Exam Vitals: Vital Signs Temp Pulse Pulse Resp BP BP BP 04/19/21 15:39 54 L 04/19/21 14:57 48 L 18 178/85 167/77 04/19/21 14:17 45 L 18 164/72 04/19/21 13:07 98.5 F 55 L 18 174/80 BP Pulse Ox 04/19/21 15:39 167/72 04/19/21 14:57 184/85 96 04/19/21 14:17 94 L 04/19/21 13:07 97 Intake and Output 04/19/21 04/19/21 04/19/21 06:59 14:59 22:59 Other: Weight 102.512 kg Results CBC & Chem 7: 04/19/21 14:51 04/19/21 14:51 Labs: Abnormal Lab Results - Last 24 Hours (Table) 04/19/21 04/19/21 Range/Units 14:51 14:51 Hgb 12.8 L (13.0-17.5) gm/dL Sodium 136 L (137-145) mmol/L BUN 22 H (9-20) mg/dL Glucose 117 H (74-99) mg/dL <Vanessa Zimmer - Last Filed: 04/19/21 18:49> History of Present Illness Patient seen and examined independently. Patient was also seen by Neil Way NP and case was discussed. I am in agreement with subjective, physical exam, assessment and plan as written above and amended below. He complains of upset stomach and nausea that is coming on. He feels worse when he came in. He thinks he is dehydrated as he is feeling shaky. General: Ill appearing, no distress, appears at stated age Derm: warm, dry Head: atraumatic, normocephalic, symmetric Eyes: EOMI, no lid lag, anicteric sclera Mouth: no lip lesion, mucus membranes moist Cardiovascular: S1S2 reg, no murmur, positive posterior tibial pulse bilateral, Lungs: Decreased bs bilateral, no rhonchi, no rales , no accessory muscle use Abdominal: soft, nontender to palpation, no guarding, no appreciable organomegaly Ext: no gross muscle atrophy, no edema, no contractures Neuro: CN II-XI grossly intact, no focal neuro deficits Psych: Alert, oriented, appropriate affect Physical Exam Osteopathic Statement: *. No significant issues noted on an osteopathic structural exam other than those noted in the History and Physical/Consult. Vitals: Vital Signs Temp Pulse Pulse Pulse Resp BP BP 04/19/21 18:00 97.9 F 55 L 18 185/77 04/19/21 17:29 56 L 18 165/84 04/19/21 15:39 54 L 04/19/21 14:57 48 L 18 178/85 04/19/21 14:17 45 L 18 164/72 04/19/21 13:07 98.5 F 55 L 18 174/80 BP BP Pulse Ox 04/19/21 18:00 98 04/19/21 17:29 98 04/19/21 15:39 167/72 04/19/21 14:57 167/77 184/85 96 04/19/21 14:17 94 L 04/19/21 13:07 97 Intake and Output 04/19/21 04/19/21 04/19/21 06:59 14:59 22:59 Other: Weight 102.512 kg Results CBC & Chem 7: 04/19/21 14:51 04/19/21 14:51 Labs: Abnormal Lab Results - Last 24 Hours (Table) 04/19/21 04/19/21 04/19/21 Range/Units 14:51 14:51 17:03 Hgb 12.8 L (13.0-17.5) gm/dL Sodium 136 L (137-145) mmol/L BUN 22 H (9-20) mg/dL Glucose 117 H (74-99) mg/dL POC Glucose (mg/dL) (75-99) mg/dL TSH 48.900 H (0.465-4.680) mIU/L Free T4 0.75 L (0.78-2.19) ng/dL 04/19/21 Range/Units 18:19 Hgb (13.0-17.5) gm/dL Sodium (137-145) mmol/L BUN (9-20) mg/dL Glucose (74-99) mg/dL POC Glucose (mg/dL) 111 H (75-99) mg/dL TSH (0.465-4.680) mIU/L Free T4 (0.78-2.19) ng/dL
[2021-04-19] MEDS ORDERED: ONDANSETRON 4 MG/2 ML VIAL IVP PRN (17:43)
[2021-04-19 18:21] LABS: Glucose,Whole Blood 111 mg/dL (75-99)
[2021-04-19] MEDS: INSULIN ASPART (NovoLOG) 100 UNIT/ML VIAL SQ SCH ×2 (18:24→20:44)
[2021-04-19 18:47] LABS: T4, Free (Free Thyroxine) 0.75 ng/dL (0.78-2.19)
[2021-04-19 20:04] LABS: Glucose,Whole Blood 133 mg/dL (75-99)
[2021-04-19] MEDS: PANTOPRAZOLE 40 MG/10 ML VIAL IVP SCH (20:15)
[2021-04-19] MEDS: allopurinoL 300 MG TAB PO SCH (20:44)
[2021-04-19] MEDS: GABAPENTIN 300 MG CAP PO SCH (20:44)
[2021-04-19] MEDS: ATORVASTATIN 10 MG TAB PO SCH (20:44)
[2021-04-19] MEDS: SODIUM CHLORIDE 0.9% 1,000 ML IV SCH (20:44)
[2021-04-19] MEDS: SERTRALINE 100 MG TAB PO SCH (20:44)
[2021-04-19] MEDS: PRAMIPEXOLE 1 MG TAB PO SCH (20:44)
[2021-04-19] MEDS: HEPARIN SODIUM,PORCINE/PF 5,000 UNIT/0.5 ML SYRINGE SQ SCH (20:45)
[2021-04-20] MEDS ORDERED: hydrALAZINE HCL 25 MG TAB PO STA (02:28)
[2021-04-20 07:02] LABS: Glucose,Whole Blood 132 mg/dL (75-99)
[2021-04-20] MEDS: FINASTERIDE 5 MG TAB PO SCH (07:15)
[2021-04-20] MEDS: HYDROcodone/APAP 7.5-325MG 1 EACH TAB PO PRN ×3 (07:16→22:00)
[2021-04-20] MEDS: PRAMIPEXOLE 1 MG TAB PO SCH ×2 (07:16→18:03)
[2021-04-20] MEDS: lisinopriL 20 MG TAB PO SCH (07:16)
[2021-04-20] MEDS: GABAPENTIN 300 MG CAP PO SCH ×2 (07:16→20:28)
[2021-04-20] MEDS: PANTOPRAZOLE 40 MG/10 ML VIAL IVP SCH ×2 (07:21→20:29)
[2021-04-20] MEDS: INSULIN ASPART (NovoLOG) 100 UNIT/ML VIAL SQ SCH ×4 (07:21→20:29)
[2021-04-20] MEDS ORDERED: LEVOTHYROXINE 112 MCG TAB PO SCH (07:30)
[2021-04-20] MEDS ORDERED: amLODIPine 2.5 MG TAB PO STA (08:40)
[2021-04-20] MEDS ORDERED: amLODIPine 5 MG TAB PO STA (08:40)
[2021-04-20] MEDS ORDERED: hydroCHLOROthiazide 12.5 MG CAP PO SCH (09:00)
[2021-04-20] MEDS ORDERED: amLODIPine 2.5 MG TAB PO SCH (09:00)
[2021-04-20] MEDS: INSULIN DETEMIR (LEVEMIR) 100 UNIT/ML SYR SQ SCH ×2 (09:16→20:29)
[2021-04-20] MEDS: HEPARIN SODIUM,PORCINE/PF 5,000 UNIT/0.5 ML SYRINGE SQ SCH ×2 (09:16→15:45)
[2021-04-20 12:00] LABS: Glucose,Whole Blood 160 mg/dL (75-99)
[2021-04-20 12:10] LABS: ALT 24 U/L (4-49); AST 33 U/L (17-59); African American GFR (CKD) 78 (>60 ml/min/1.73 sqM); Albumin 2.9 g/dL (3.5-5.0); Albumin/Globulin Ratio 1.1; Alkaline Phosphatase 47 U/L (38-126); Anion Gap 6 mmol/L; Blood Urea Nitrogen 18 mg/dL (9-20); Calcium 8.4 mg/dL (8.4-10.2); Carbon Dioxide 23 mmol/L (22-30); Chloride 105 mmol/L (98-107); Globulin 2.7 g/dL; Glucose 161 mg/dL (74-99); Non-African American GFR(CKD) 68 (>60 ml/min/1.73 sqM); Potassium 4.1 mmol/L (3.5-5.1); Sodium 134 mmol/L (137-145); Total Bilirubin 0.7 mg/dL (0.2-1.3); Total Protein 5.6 g/dL (6.3-8.2)
[2021-04-20 12:32] LABS: Basophils % (A) 0 %; Eosinophils # (A) 0.2 k/uL (0-0.7); Eosinophils % (A) 2 %; HCT 34.9 % (39.0-53.0); HGB 12.4 gm/dL (13.0-17.5); Lymphocytes # (A) 1.5 k/uL (1.0-4.8); Lymphocytes % (A) 16 %; MCH 31.9 pg (25.0-35.0); MCHC 35.4 g/dL (31.0-37.0); MCV 90.1 fL (80.0-100.0); Mean Platelet Volume 8.9; Monocytes % (A) 11 %; Neutrophils # (A) 6.6 k/uL (1.3-7.7); Neutrophils % (A) 70 %; Platelet Count 203 k/uL (150-450); RBC 3.88 m/uL (4.30-5.90); RDW 15.2 % (11.5-15.5); WBC 9.5 k/uL (3.8-10.6)
--- NOTE | 2021-04-20 13:47 | P.PN ---
<Neil Way - Last Filed: 04/20/21 13:34> Subjective Progress Note Date: 04/20/21 Hospital course: Patient is a very pleasant 75-year-old male with a past medical history of hyp ertension, hyperlipidemia, insulin-dependent diabetes mellitus, hypothyroidism, BPH, restless leg syndrome, and neuropathy. He presented to the emergency department with a chief complaint of dizziness/lightheadedness. He states he was at home working with physical/occupational therapy when he became lightheaded/dizzy and they recommended him coming to the emergency department for evaluation. In the emergency department, patient was found to have bradycardia with heart rate in 40s, and moderate hypertension. An EKG was completed revealing sinus bradycardia at 43 bpm with no noted T-wave or ST abnormalities. Labs completed. CBC and BMP unremarkable. Troponin normal findings at less than 0.012 2 draws. Patient was admitted under our services for continued medical management. Patient currently continues to report intermittent dizziness/lightheadedness along with abdominal fullness and persistent nausea. He denies any episodes of vomiting and reports 2 episodes of diarrhea since arrival to hospital. Orders placed for C. diff, stool culture, and KUB. At this time we will continue gentle hydration with 0.9% normal saline at 75 mL's per hour, Protonix for GI prophylaxis, and Zofran as needed for nausea and vomiting. Metoprolol to be discontinued secondary to bradycardia, No rvasc increased To 10 mg daily for hypertensive urgency with blood pressures greater than 200 systolic. Morning labs remained unremarkable. Patient denies any further complaints including chest pain, palpitations, shortness of breath, abdominal pain, or experiencing any numbness/tingling/weakness in his extremities. Physical exam: Vital signs reviewed and stable. General: Nontoxic, no distress and appears stated age. Derm: Skin warm and dry, normal coloration for ethnicity. Head: Atraumatic, normocephalic and symmetric. Eyes: EOMs intact, no lid lag, and anicteric sclera Mouth: no lip lesions, mucus membranes moist Cardiovascular: Bradycardic rate and rhythm with normal S1S2, no murmur, positive posterior tibial pulses bilaterally, and cap refill < 2 seconds. No lower extremity edema. Lungs: Respirations even, regular, and unlabored on room air. Lungs CTA bilaterally, no rhonchi, no rales, no wheezing, and no accessory muscle usage. Abdominal: Bowel sounds present in all 4 quadrants, abdomen soft, nontender to palpation, no guarding, no appreciable organomegaly Ext: ROM intact. No gross muscle atrophy, no edema, no contractures Neuro: Speech clear, face symmetrical and CN II-XII grossly intact with no noted focal neuro deficits Psych: Alert and oriented to person, place, time, and situation. Appropriate and pleasant affect. Assessment and Plan of Care: Dizziness/lightheadedness Dehydration Diarrhea Abdominal fullness -Continue gentle hydration with 0.9% normal saline at 75 mL's per hour. -Protonix for GI prophylaxis -Antiemetic with Zofran as needed for nausea and vomiting -KUB -Orthostatic vitals -Fall precautions Hypertensive urgency Asymptomatic bradycardia -EKG was completed revealing sinus bradycardia at 43 bpm with no noted T-wave or ST abnormalities. Patient hypertensive with blood pressures greater than 200 systolic. -Troponins normal findings at less than 0.012 x2 draws. -Telemetry monitoring -Discontinue metoprolol and increase Norvasc to 10 mg daily. -Echocardiogram -TSH -Continued close monitoring of vital signs Hyperlipidemia -Continue daily medication management with lovastatin. -Heart healthy diet Insulin-dependent diabetes mellitus Continue daily medication regimen with Levemir [address] patient on glycemic protocol with NovoLog sliding scale. Heart healthy carb consistent diet. Hypothyroidism Continue daily medication regimen with levothyroxine. BPH Continue daily medication regimen with finasteride Restless leg syndrome Neuropathy Continue daily medication regimen with Mirapex and Neurontin Surrogate decision-maker: Patient's CODE STATUS: Full code DVT prophylaxis: Heparin Discussed with: Patient and RN Anticipated discharge date: possibly tomorrow, pending clinical course and further results Anticipated discharge place: Home, back home with home care A total of 45 minutes was spent on the care of this complex patient more than 50% of the time was spent in counseling and care coordination. Objective - Vital Signs Vital signs: Vital Signs Temp 97.8 F 04/20/21 07:47 Pulse 60 04/20/21 08:25 Resp 18 04/20/21 07:47 BP 217/88 04/20/21 08:25 Pulse Ox 95 04/20/21 07:47 Intake & Output 04/19/21 04/20/21 04/20/21 19:59 06:59 18:59 Weight Other: Voiding Method # Voids - Labs CBC & Chem 7: 04/20/21 11:45 04/20/21 11:45 Labs: Abnormal Lab Results - Last 24 Hours (Table) 04/19/21 04/19/21 04/19/21 Range/Units 14:51 14:51 17:03 Hgb 12.8 L (13.0-17.5) gm/dL Sodium 136 L (137-145) mmol/L BUN 22 H (9-20) mg/dL Glucose 117 H (74-99) mg/dL POC Glucose (mg/dL) (75-99) mg/dL TSH 48.900 H (0.465-4.680) mIU/L Free T4 0.75 L (0.78-2.19) ng/dL 04/19/21 04/19/21 04/20/21 Range/Units 18:19 20:02 07:00 Hgb (13.0-17.5) gm/dL Sodium (137-145) mmol/L BUN (9-20) mg/dL Glucose (74-99) mg/dL POC Glucose (mg/dL) 111 H 133 H 132 H (75-99) mg/dL TSH (0.465-4.680) mIU/L Free T4 (0.78-2.19) ng/dL <Vanessa Zimmer - Last Filed: 04/20/21 21:43> Subjective Neil Way NP rendered care for this patient independently, reviewed the findings and plan as documented in the note above. I did not physically speak with or examine the patient on this date. Increase Norvasc to 10 mg daily, and additional 7.5 mg today Overt hypothyroidism. increase to 150 mcg dialy Objective - Vital Signs Vital signs: Vital Signs Temp 98.1 F 04/20/21 19:13 Pulse 52 L 04/20/21 21:01 Resp 18 04/20/21 19:50 BP 185/84 04/20/21 21:01 Pulse Ox 96 04/20/21 19:13 Intake & Output 04/20/21 04/20/21 04/21/21 06:59 18:59 06:59 Intake Total 118 300 Balance 118 300 Intake: Oral 118 300 Other: Voiding Method Toilet Toilet # Voids 2 1 # Bowel Movements 2 - Labs CBC & Chem 7: 04/20/21 11:45 04/20/21 11:45 Labs: Abnormal Lab Results - Last 24 Hours (Table) 04/20/21 04/20/21 04/20/21 Range/Units 07:00 11:45 11:45 RBC 3.88 L (4.30-5.90) m/uL Hgb 12.4 L (13.0-17.5) gm/dL Hct 34.9 L (39.0-53.0) % Sodium 134 L (137-145) mmol/L Glucose 161 H (74-99) mg/dL POC Glucose (mg/dL) 132 H (75-99) mg/dL Total Protein 5.6 L (6.3-8.2) g/dL Albumin 2.9 L (3.5-5.0) g/dL 04/20/21 04/20/21 04/20/21 Range/Units 11:58 17:11 20:15 RBC (4.30-5.90) m/uL Hgb (13.0-17.5) gm/dL Hct (39.0-53.0) % Sodium (137-145) mmol/L Glucose (74-99) mg/dL POC Glucose (mg/dL) 160 H 139 H 157 H (75-99) mg/dL Total Protein (6.3-8.2) g/dL Albumin (3.5-5.0) g/dL
--- NOTE | 2021-04-20 15:54 | XR ---
EXAMINATION TYPE: XR KUB DATE OF EXAM: 04/20/2021 COMPARISON: NONE HISTORY: Nausea. TECHNIQUE: 2 views supine FINDINGS: There is no sign of intestinal obstruction or pneumoperitoneum. Fecal pattern is normal. Th ere is contrast in the kidneys. Lung bases appear clear. There is no evidence of a mass. IMPRESSION: Nonacute abdomen.
--- NOTE | 2021-04-20 16:10 | CT ---
EXAMINATION TYPE: CT angio abdomen pelvis DATE OF EXAM: 04/20/2021 COMPARISON: None HISTORY: Dark red blood in stool. CT DLP: 2661.1 mGycm Automated exposure control for dose reduction was used. CONTRAST: Performed without and with IV Contrast, patient injected with 100 mL of Isovue 370. Images obtained from the diaphragm to the floor the pelvis without and with IV contrast. There are 3-D post processed images. Lung bases are clear. There is no pleural effusion. Liver spleen stomach pancreas gallbladder appear intact. The bile ducts are nondilated. There is fusion of the lower poles of both kidneys. There is n o hydronephrosis. Bladder distends smoothly. There are multiple small prostate calcifications. There is no inguinal hernia. There is no evidence of a bladder mass. There is no mesenteric edema. There is no ascites or free air. There is no sign of a bowel obstructio n. Appendix appears normal. Abdominal aorta is intact. There is arterial flow in the celiac artery and superior mesenteric artery . There is arterial flow in the inferior mesenteric artery. There is arterial flow in both renal brianna saige. There is arterial flow in the iliac and femoral arteries. There is no evidence of hemodynamic s tenosis. There is mild atheromatous changes. There is some mild retroperitoneal fat stranding in the posterior abdomen along the left and right psoas muscle. I see no evidence of contrast extravasation in the bowel. The lumbar vertebra have normal alignment. There is degenerative disc space narrowing at L3-4 and L4- 5 with spurring. There is no compression fracture. Bony pelvis is intact. The hip joints are intact. IMPRESSION: No evidence of active bleeding. There are some mild sigmoid diverticula without diverticulitis. Horseshoe kidney noted. Mild retroper itoneal fat stranding of uncertain significance. No evidence of hemodynamic stenosis. Mild atheroscle rotic vascular disease.
[2021-04-20 17:13] LABS: Glucose,Whole Blood 139 mg/dL (75-99)
[2021-04-20 20:16] LABS: Glucose,Whole Blood 157 mg/dL (75-99)
[2021-04-20] MEDS: ATORVASTATIN 10 MG TAB PO SCH (20:28)
[2021-04-20] MEDS: allopurinoL 300 MG TAB PO SCH (20:28)
[2021-04-20] MEDS: SERTRALINE 100 MG TAB PO SCH (20:29)
[2021-04-20] MEDS: SODIUM CHLORIDE 0.9% 1,000 ML IV SCH ×2 (20:37→22:01)
[2021-04-21] MEDS: HEPARIN SODIUM,PORCINE/PF 5,000 UNIT/0.5 ML SYRINGE SQ SCH ×4 (00:44→23:20)
[2021-04-21] MEDS ORDERED: hydrALAZINE HCL 25 MG TAB PO STA (02:28)
[2021-04-21 07:19] LABS: Glucose,Whole Blood 65 mg/dL (75-99)
[2021-04-21 07:35] LABS: Glucose,Whole Blood 80 mg/dL (75-99)
[2021-04-21] MEDS: PRAMIPEXOLE 1 MG TAB PO SCH ×2 (08:22→20:34)
[2021-04-21] MEDS: PANTOPRAZOLE 40 MG/10 ML VIAL IVP SCH (08:22)
[2021-04-21] MEDS: LEVOTHYROXINE 75 MCG TAB PO SCH (08:22)
[2021-04-21] MEDS: lisinopriL 20 MG TAB PO SCH (08:23)
[2021-04-21] MEDS: amLODIPine 10 MG TAB PO SCH (08:23)
[2021-04-21] MEDS: GABAPENTIN 300 MG CAP PO SCH ×2 (08:23→20:35)
[2021-04-21] MEDS: INSULIN DETEMIR (LEVEMIR) 100 UNIT/ML SYR SQ SCH ×2 (08:24→20:35)
[2021-04-21] MEDS: FINASTERIDE 5 MG TAB PO SCH (08:24)
[2021-04-21] MEDS: INSULIN ASPART (NovoLOG) 100 UNIT/ML VIAL SQ SCH ×4 (08:26→20:35)
[2021-04-21] MEDS: HYDROcodone/APAP 7.5-325MG 1 EACH TAB PO PRN ×3 (08:34→23:20)
[2021-04-21] MEDS ORDERED: hydrALAZINE HCL 10 MG TAB PO SCH (09:45)
[2021-04-21 09:54] LABS: HCT 38.6 % (39.0-53.0); HGB 12.3 gm/dL (13.0-17.5); MCH 29.4 pg (25.0-35.0); MCHC 31.9 g/dL (31.0-37.0); MCV 92.2 fL (80.0-100.0); Mean Platelet Volume 8.6; Platelet Count 189 k/uL (150-450); RBC 4.18 m/uL (4.30-5.90); RDW 14.6 % (11.5-15.5); WBC 7.8 k/uL (3.8-10.6)
[2021-04-21] MEDS ORDERED: NALOXONE 0.4 MG/ML 1 ML VIAL IV PRN (10:41)
[2021-04-21] MEDS ORDERED: MECLIZINE 25 MG TAB PO PRN (11:10)
--- NOTE | 2021-04-21 11:36 | P.PN ---
<Neil Way - Last Filed: 04/21/21 10:33> Subjective Progress Note Date: 04/21/21 Hospital course: Patient is a very pleasant 75-year-old male with a past medical history of hyp ertension, hyperlipidemia, insulin-dependent diabetes mellitus, hypothyroidism, BPH, restless leg syndrome, and neuropathy. He presented to the emergency department with a chief complaint of dizziness/lightheadedness. He states he was at home working with physical/occupational therapy when he became lightheaded/dizzy and they recommended him coming to the emergency department for evaluation. In the emergency department, patient was found to have bradycardia with heart rate in 40s, and moderate hypertension. An EKG was completed revealing sinus bradycardia at 43 bpm with no noted T-wave or ST abnormalities. Labs completed. CBC and BMP unremarkable. Troponin normal findings at less than 0.012 2 draws. Patient was admitted under our services for continued medical management. Physical exam: Patient seen and fully evaluated at bedside this morning. He reports resolution of abdominal fullness/discomfort, nausea, and diarrhea. CT abdomen and pelvis and KUB were negative for acute process. Patient reports continued dizziness upon rising. He remains bradycardic in 50s. Blood pressure continues to be significantly elevated with hypertensive urgency with systolic BP greater than 200. Additional medication changes were made. Awaiting echocardiogram to be completed. Cardiology consulted. Physical therapy consulted. Patient also started on meclizine. Patient denies having any headache, changes in vision or hearing, tinnitus, chest pain, palpitations, shortness of breath, dyspnea with exertion, abdominal pain, nausea, vomiting, or experiencing any numbness/tingling/weakness in his extremities. RN reported a single episode of diarrhea yesterday in which she reported patient had bright red blood, this was an isolated episode likely secondary to irritation resulting from recurrent episodes of diarrhea as patient reported and history of hemorrhoids, hemoglobin stable at 12.4 yesterday morning and 12.3 this morning. We will continue to monitor with repeat a.m. labs. Vital signs reviewed and stable. General: Nontoxic, no distress and appears stated age. Derm: Skin warm and dry, normal coloration for ethnicity. Head: Atraumatic, normocephalic and symmetric. Eyes: EOMs intact, no lid lag, and anicteric sclera Mouth: no lip lesions, mucus membranes moist Cardiovascular: Bradycardic rate and rhythm with normal S1S2, no murmur, positive posterior tibial pulses bilaterally, and cap refill < 2 seconds. No lower extremity edema. Lungs: Respirations even, regular, and unlabored on room air. Lungs CTA bilaterally, no rhonchi, no rales, no wheezing, and no accessory muscle usage. Abdominal: Bowel sounds present in all 4 quadrants, abdomen soft, nontender to palpation, no guarding, no appreciable organomegaly Ext: ROM intact. No gross muscle atrophy, no edema, no contractures Neuro: Speech clear, face symmetrical and CN II-XII grossly intact with no noted focal neuro deficits Psych: Alert and oriented to person, place, time, and situation. Appropriate and pleasant affect. Assessment and Plan of Care: Hypertensive urgency -BPs continue to be 200 systolic. Hydralazine 25 mg TID started at this time in addition to previous increase of Norvasc to 10 mg daily and continuation of lisinopril 40 mg daily. -Troponins normal findings at less than 0.012 x2 draws. -Telemetry monitoring -Discontinue metoprolol and increase Norvasc to 10 mg daily. -Echocardiogram -Cardiology consulted. Bradycardia, likely multifactorial due to use of beta blockers and significant hypothyroidism with TSH of 48.900 Significant Hypothyroidism -EKG was completed revealing sinus bradycardia at 43 bpm with no noted T-wave or ST abnormalities. -Troponins normal findings at less than 0.012 x2 draws. -Telemetry monitoring -Echocardiogram -TSH elevated at 48.900, f4ree T4 0.75. Synthroid increased to 150 mg daily. Will need close outpatient follow up with repeat TSH levels. -Continued close monitoring of vital signs -Metoprolol was discontinued. -Cardiology consulted. Dizziness/lightheadedness, likely multifactorial -Treatment of significant hypothyroidism by increasing Synthroid. Treatment of bradycardia as mentioned above. Treatment of hypertensive urgency as above Meclizine 25 mg 4 times daily as needed for dizziness/lightheadedness. Dehydration Diarrhea, resolved Abdominal fullness -Patient received hydration with IV fluids, tolerating diet, IV fluids now discontinued at this time. -Protonix for GI prophylaxis -Antiemetic with Zofran as needed for nausea and vomiting -KUB Negative for acute intra-abdominal process. -Orthostatic vitals -Fall precautions -CTA abdomen and pelvis revealing mild sigmoid diverticulosis without diverticulits, Horseshoe kidney and mild retroperitoneal fat stranding in the posterior abdomen along the left and right psoas muscle. Hyperlipidemia -Continue daily medication management with lovastatin. -Heart healthy diet Insulin-dependent diabetes mellitus Continue daily medication regimen with Levemir [address] patient on glycemic protocol with NovoLog sliding scale. Heart healthy carb consistent diet. BPH Continue daily medication regimen with finasteride Restless leg syndrome Neuropathy Continue daily medication regimen with Mirapex and Neurontin Surrogate decision-maker: Patient's CODE STATUS: Full code DVT prophylaxis: Heparin Discussed with: Patient and RN Anticipated discharge date: Likely tomorrow morning Anticipated discharge place: Home, back home with home care A total of 45 minutes was spent on the care of this complex patient more than 50% of the time was spent in counseling and care coordination. Objective - Vital Signs Vital signs: Vital Signs Temp 97.6 F 04/21/21 08:13 Pulse 62 04/21/21 08:13 Resp 17 04/21/21 08:13 BP 175/78 04/21/21 08:13 Pulse Ox 95 04/21/21 08:13 Intake & Output 04/20/21 04/21/21 04/21/21 18:59 06:59 18:59 Intake Total 118 550 118 Balance 118 550 118 Intake: Oral 118 550 118 Other: Voiding Method Toilet Toilet # Voids 2 3 # Bowel Movements 2 - Labs CBC & Chem 7: 04/21/21 09:08 04/20/21 11:45 Labs: Abnormal Lab Results - Last 24 Hours (Table) 04/20/21 04/20/21 04/20/21 Range/Units 11:45 11:45 11:58 RBC 3.88 L (4.30-5.90) m/uL Hgb 12.4 L (13.0-17.5) gm/dL Hct 34.9 L (39.0-53.0) % Sodium 134 L (137-145) mmol/L Glucose 161 H (74-99) mg/dL POC Glucose (mg/dL) 160 H (75-99) mg/dL Total Protein 5.6 L (6.3-8.2) g/dL Albumin 2.9 L (3.5-5.0) g/dL 04/20/21 04/20/21 04/21/21 Range/Units 17:11 20:15 07:18 RBC (4.30-5.90) m/uL Hgb (13.0-17.5) gm/dL Hct (39.0-53.0) % Sodium (137-145) mmol/L Glucose (74-99) mg/dL POC Glucose (mg/dL) 139 H 157 H 65 L (75-99) mg/dL Total Protein (6.3-8.2) g/dL Albumin (3.5-5.0) g/dL <Evangelist Banks - Last Filed: 04/21/21 14:14> Objective - Vital Signs Vital signs: Vital Signs Temp 97.6 F 04/21/21 08:13 Pulse 62 04/21/21 08:13 Resp 17 04/21/21 08:13 BP 175/78 04/21/21 08:13 Pulse Ox 95 04/21/21 08:13 Intake & Output 04/20/21 04/21/21 04/21/21 18:59 06:59 18:59 Intake Total 118 550 118 Balance 118 550 118 Intake: Oral 118 550 118 Other: Voiding Method Toilet Toilet # Voids 2 3 1 # Bowel Movements 2 - Labs CBC & Chem 7: 04/21/21 09:08 04/20/21 11:45 Labs: Abnormal Lab Results - Last 24 Hours (Table) 04/20/21 04/20/21 04/21/21 Range/Units 17:11 20:15 07:18 RBC (4.30-5.90) m/uL Hgb (13.0-17.5) gm/dL Hct (39.0-53.0) % POC Glucose (mg/dL) 139 H 157 H 65 L (75-99) mg/dL 04/21/21 04/21/21 Range/Units 09:08 12:11 RBC 4.18 L (4.30-5.90) m/uL Hgb 12.3 L (13.0-17.5) gm/dL Hct 38.6 L (39.0-53.0) % POC Glucose (mg/dL) 142 H (75-99) mg/dL Microbiology - Last 24 Hours (Table) 04/20/21 16:34 Stool Culture - Preliminary Stool 04/20/21 15:32 Urine Culture - Preliminary Urine,Catheterized Assessment and Plan Plan: Patient seen and examined independently. Patient was also seen by Neil Way NP and case was discussed. I am in agreement with subjective, physical exam, assessment and plan as written above and amended below. General: [non toxic], [no distress], [appears at stated age] Derm: [warm], [dry] Head: [atraumatic], [normocephalic], [symmetric] Eyes: [EOMI], [no lid lag], [anicteric sclera] Mouth: [no lip lesion], [mucus membranes moist] Cardiovascular: [S1S2 reg], [no murmur], [positive posterior tibial pulse bilateral], Lungs: [CTA bilateral], [no rhonchi, no rales] , [no accessory muscle use] Abdominal: [soft], [ nontender to palpation], [no guarding], [no appreciable organomegaly] Ext: [no gross muscle atrophy], [no edema], [no contractures] Neuro: [ CN II-XI grossly intact], [no focal neuro deficits] Psych: [Alert], [oriented], [appropriate affect]
[2021-04-21] MEDS: hydroCHLOROthiazide 25 MG TAB PO SCH (12:06)
[2021-04-21 12:12] LABS: Glucose,Whole Blood 142 mg/dL (75-99)
[2021-04-21] MEDS: SODIUM CHLORIDE 0.9% 1,000 ML IV SCH (12:55)
--- NOTE | 2021-04-21 14:42 | CONS ---
CONSULTATION Mr. Carter is a 75-year-old male who presented through the emergency room with findings of high blood pressure and lightheadedness. He has a longstanding history of hypertension. In the emergency room he was noted to be bradycardic with a rate in the 40s and hypertensive. Cardiology consultation was requested. According to him, he is reasonably active physically, has no symptoms of chest discomfort and no change in his breathing. He had recent gastritis with diarrhea. He denies any clear PND or orthopnea, had a prior history of cellulitis. He has no prior documented history of coronary artery disease or documented history of malignant arrhythmia. He had no significant bradycardia after admission. His beta zurdo has been on hold, but he continues to be hypertensive. He has a history of hypertension and hyperlipidemia. He is diabetic. He is a nonsmoker. MEDICATIONS: His medications include insulin, Desyrel, Zestril 40 mg daily, Mirapex, metoprolol tartrate 50 mg twice a day, lovastatin 20 mg daily, levothyroxine 0.112 mg daily, hydrochlorothiazide 12.5 mg daily, gabapentin, Proscar, Norvasc 2.5 mg daily, allopurinol, and vitamin D. His blood pressure remains elevated since his admission, but he has no significant orthostatic changes. His heart rate is running in the 50s to 70s. REVIEW OF SYSTEMS: RESPIRATORY SYSTEM: He has no wheezing or cough, no significant dyspnea on exertion. GI SYSTEM: He had the evidence of gastritis, but that has resolved. SYSTEM: No dysuria or hematuria. NERVOUS SYSTEM: No history of stroke or seizure. PHYSICAL EXAMINATION: He is a 75-year-old male, alert, oriented, in no apparent distress. Blood pressure running in the 180s over 90s with a heart rate in the 60s to 70s. HEAD: Normocephalic. EYES: Sclerae anicteric. NECK: Good carotid upstroke. No bruit. No jugular venous distention. LUNGS: Clear to auscultation. HEART: Regular rate and rhythm. S1, S2. No S3. With systolic murmur at the base, ejection type. No diastolic murmur. No rub. ABDOMEN: Soft, nontender. Positive bowel sounds. No organomegaly. EXTREMITIES: No edema. Evidence of mild erythema bilaterally. LAB DATA: On presentation his TSH was 48.9 with free T4 of 0.75. His troponin is less than 0.012. BUN and creatinine are 22 and 1.16. Hemoglobin of 12.8. IMPRESSION: 1. Hypertension; remains elevated. Patient off the beta zurdo. 2. Bradycardia, most likely worsened by the hypothyroidism. His dose of Synthroid has been adjusted. 3. History of hyperlipidemia. 4. Diabetes mellitus. 5. Prior history of cellulitis. 6. History of recent gastritis. RECOMMENDATIONS: From the cardiac standpoint, I will restart the hydrochlorothiazide. I will increase the dose of hydralazine. Will continue holding his beta zurdo. His dose of amlodipine has been increased. An echocardiogram with Doppler will be obtained. His activity will be increased and, depending on his response to the higher dose of Synthroid, further adjustment of his antihypertensive regimen will be done. Thank you for this consult. Will follow with you. FATMATA / DOMINIC: [id number] /
[2021-04-21] MEDS ORDERED: hydrALAZINE HCL 25 MG TAB PO SCH (16:00)
[2021-04-21] MEDS: hydrALAZINE HCL 50 MG TAB PO SCH ×2 (16:46→20:35)
[2021-04-21] MEDS: PANTOPRAZOLE 40 MG TABLET PO SCH (16:47)
[2021-04-21 17:21] LABS: Glucose,Whole Blood 188 mg/dL (75-99)
[2021-04-21 20:11] LABS: Glucose,Whole Blood 192 mg/dL (75-99)
[2021-04-21] MEDS: ATORVASTATIN 10 MG TAB PO SCH (20:34)
[2021-04-21] MEDS: SERTRALINE 100 MG TAB PO SCH (20:34)
[2021-04-21] MEDS: allopurinoL 300 MG TAB PO SCH (20:35)
[2021-04-22] MEDS ORDERED: LABETALOL 200 MG TAB PO STA (01:42)
[2021-04-22] MEDS ORDERED: hydrALAZINE HCL 25 MG TAB PO STA (01:43)
[2021-04-22 06:25] LABS: HCT 41.8 % (39.0-53.0); HGB 13.7 gm/dL (13.0-17.5); MCH 30.3 pg (25.0-35.0); MCHC 32.9 g/dL (31.0-37.0); MCV 92.3 fL (80.0-100.0); Mean Platelet Volume 9.7; Platelet Count 189 k/uL (150-450); RBC 4.53 m/uL (4.30-5.90); RDW 14.9 % (11.5-15.5)
[2021-04-22 06:42] LABS: African American GFR (CKD) 82 (>60 ml/min/1.73 sqM); Anion Gap 7 mmol/L; Blood Urea Nitrogen 14 mg/dL (9-20); Calcium 9.2 mg/dL (8.4-10.2); Carbon Dioxide 21 mmol/L (22-30); Chloride 110 mmol/L (98-107); Glucose 67 mg/dL (74-99); Non-African American GFR(CKD) 71 (>60 ml/min/1.73 sqM); Sodium 138 mmol/L (137-145)
[2021-04-22 06:49] LABS: Potassium 5.7 mmol/L (3.5-5.1)
[2021-04-22 06:54] LABS: Glucose,Whole Blood 84 mg/dL (75-99)
[2021-04-22] MEDS: GABAPENTIN 300 MG CAP PO SCH ×2 (07:45→19:35)
[2021-04-22] MEDS: LEVOTHYROXINE 75 MCG TAB PO SCH (07:45)
[2021-04-22] MEDS: hydrALAZINE HCL 50 MG TAB PO SCH ×3 (07:45→19:35)
[2021-04-22] MEDS: PANTOPRAZOLE 40 MG TABLET PO SCH ×2 (07:46→16:39)
[2021-04-22] MEDS: amLODIPine 10 MG TAB PO SCH (07:46)
[2021-04-22] MEDS: PRAMIPEXOLE 1 MG TAB PO SCH ×2 (07:46→19:35)
[2021-04-22] MEDS: FINASTERIDE 5 MG TAB PO SCH (07:46)
[2021-04-22] MEDS: HEPARIN SODIUM,PORCINE/PF 5,000 UNIT/0.5 ML SYRINGE SQ SCH ×2 (07:46→16:38)
[2021-04-22] MEDS: INSULIN DETEMIR (LEVEMIR) 100 UNIT/ML SYR SQ SCH ×2 (07:46→19:34)
[2021-04-22] MEDS: lisinopriL 20 MG TAB PO SCH (07:46)
[2021-04-22] MEDS: HYDROcodone/APAP 7.5-325MG 1 EACH TAB PO PRN ×2 (07:47→16:39)
[2021-04-22] MEDS ORDERED: hydrALAZINE HCL 25 MG TAB PO SCH (09:00)
[2021-04-22] MEDS ORDERED: ISOSORBIDE MONONITRATE ER 30 MG TAB.ER.24H PO SCH (09:00)
[2021-04-22] MEDS: INSULIN ASPART (NovoLOG) 100 UNIT/ML VIAL SQ SCH ×4 (09:07→19:34)
--- NOTE | 2021-04-22 10:30 | ECHOF ---
Referral Reason:Symptomatic bradycardia MEASUREMENTS -------- HEIGHT: 170.2 cm WEIGHT: 103.0 kg BP: RVIDd: 2.3 cm (< 3.3) IVSd: 1.2 cm (0.6 - 1.1) LVIDd: 5.0 cm (3.9 - 5.3) LVPWd: 1.6 cm (0.6 - 1.1) IVSs: 1.7 cm LVIDs: 1.8 cm LVPWs: 1.7 cm LAESV Index (A-L): 20.24 ml/m Ao Diam: 3.4 cm (2.0 - 3.7) AV Cusp: 2.2 cm (1.5 - 2.6) LA Diam: 3.2 cm (2.7 - 3.8) MV EXCURSION: 11.106 mm (> 18.000) MV EF SLOPE: 69 mm/s (70 - 150) EPSS: 0.6 cm MV E Pako: 0.94 m/s MV DecT: 226 ms MV A Pako: 1.12 m/s MV E/A Ratio: 0.84 RAP: 5.00 mmHg RVSP: 35.07 mmHg FINDINGS -------- Sinus rhythm. This was a technically adequate study. The left ventricular size is normal. There is moderate concentric left ventricular hypertrophy. O verall left ventricular systolic function is normal with, an EF between 55 - 60 %. Normal LAP Grad e 1 Diastolic Dysfunction. The right ventricle is normal in size. Normal LA size by volume 22+/-6 ml/m2. The right atrial size is normal. The aortic valve is trileaflet, and appears structurally normal. No aortic stenosis or regurgitation. The mitral valve is normal. Mild mitral regurgitation is present. The tricuspid valve appears structurally normal. Mild tricuspid regurgitation present. Right vent ricular systolic pressure is normal at < 35 mmHg. There is no pulmonic regurgitation present. The aortic root size is normal. IVC Not well visulized. There is no pericardial effusion. CONCLUSIONS -------- 1. There is moderate concentric left ventricular hypertrophy. 2. Overall left ventricular systolic function is normal with, an EF between 55 - 60 %. 3. Normal LAP Grade 1 Diastolic Dysfunction. 4. Normal LA size by volume 22+/-6 ml/m2. 5. The aortic valve is trileaflet, and appears structurally normal. No aortic stenosis or regurgitati on. 6. Mild mitral regurgitation is present. 7. Mild tricuspid regurgitation present. 8. There is no pericardial effusion. WOODYARD CRANE OPERATOR: Delma Dickerson RDCS
--- NOTE | 2021-04-22 11:35 | P.PN ---
Subjective This is a 75-year-old male with a past medical history of type 2 diabetes, hyperlipidemia, hypertension. He does not follow with a designated broker. Patient presents emergency department with findings of high blood pressure and lightheadedness. Cardiology was consulted for bradycardia, patient with HR in 40s in the emergency department and hypertension. Patient seen and examined at bedside this morning, his dizziness/lightheadedness has improved. He continues to be hypertensive, blood pressure 186/91, heart rate 69, afebrile, oxygen saturation is 99% on room air. Telemetry reviewed patient in sinus mechanism heart rate 6080s, occasional overnight heart rates in the high 40s-50s. No signs of significant bradycardia or pauses. Echocardiogram revealed an EF of 5560 percent, mild mitral rotation, mild tricuspid regurgitation. Labs reviewed, CBC unremarkable, sodium 130, potassium 5.7, BUN 14, serum creatinine 1.05, magnesium 2.0 He's currently maintained on amlodipine 10 mg daily, atorvastatin 10 mg nightly, hydralazine 50 mg 3 times a day, hydrochlorothiazide 25 mg daily, lisinopril 40 mg daily. Patient also given 100mg of PO hydralazine overnight/early AM. PHYSICAL EXAM GENERAL: Well-appearing, well-nourished and in no acute distress. NECK: Supple without JVD or thyromegaly. LUNGS: Breath sounds clear to auscultation bilaterally. Respiration equal and unlabored. No wheezes, rales or rhonchi. HEART: Regular rate and rhythm without murmurs, rubs or gallops. S1 and S2 heard. EXTREMITIES: Normal range of motion, no edema. No clubbing or cyanosis. Peripheral pulses intact. ASSESSMENT: Hypertension, remains elevated Bradycardia, most likely worsened by the hypothyroidism, his dose of synthroid has been adjusted. Beta zurdo is held. History of hyperlipidemia Type 2 Diabetes Prior History of cellulitis History of recent gastritis PLAN: -Patient given total of 100mg of PO hydralazine overnight/early AM. His hydr ochlorothyazide has been increased to 25mg daily, Amlodipine increased to 10mg daily, and hydralzaine increased to 50mg TID and also on lisinopril 40mg daily. Patient's blood pressure remained elevated at 186/91, hydralazine was increased to 75mg TID and Imdur 30mg started. Patient's blood pressure improved SBP 150s- 160s, rechecked this afternoon with BP 104/67 prior to bein given the increase dose of hydralazine or Imdur. Will hold off on increasing hydralazine and adding a nitrate at this time. If patient is stable/blood pressure improving/stable, ok to discharge from cardiology perspective, and patient can follow up outpatient with Dr. Wheeler in the office for further BP management as an outpatient. Objective - Vital Signs Vital signs: Vital Signs Temp 97.8 F 04/22/21 07:00 Pulse 79 04/22/21 10:43 Resp 18 04/22/21 07:00 BP 177/75 04/22/21 10:43 Pulse Ox 99 04/22/21 07:00 Intake & Output 04/21/21 04/22/21 04/22/21 18:59 06:59 18:59 Intake Total 340 450 Balance 340 450 Intake: Oral 340 450 Other: Voiding Method Toilet # Voids 1 3 - Labs CBC & Chem 7: 04/22/21 05:52 04/22/21 05:52 Labs: Abnormal Lab Results - Last 24 Hours (Table) 04/21/21 04/21/21 04/21/21 Range/Units 12:11 17:20 20:09 Potassium (3.5-5.1) mmol/L Chloride (98-107) mmol/L Carbon Dioxide (22-30) mmol/L Glucose (74-99) mg/dL POC Glucose (mg/dL) 142 H 188 H 192 H (75-99) mg/dL 04/22/21 Range/Units 05:52 Potassium 5.7 H (3.5-5.1) mmol/L Chloride 110 H (98-107) mmol/L Carbon Dioxide 21 L (22-30) mmol/L Glucose 67 L (74-99) mg/dL POC Glucose (mg/dL) (75-99) mg/dL Microbiology - Last 24 Hours (Table) 04/20/21 16:34 Stool Culture - Preliminary Stool 04/20/21 15:32 Urine Culture - Preliminary Urine,Catheterized
[2021-04-22 12:01] LABS: Glucose,Whole Blood 154 mg/dL (75-99)
[2021-04-22] MEDS: hydroCHLOROthiazide 25 MG TAB PO SCH (13:04)
--- NOTE | 2021-04-22 13:09 | P.PN ---
Subjective Progress Note Date: 04/22/21 Principal diagnosis: Dizziness Still feeling dizzy and wobbly when he stands up and walks. No pain or sob. Objective - Vital Signs Vital signs: Vital Signs Temp 97.8 F 04/22/21 07:00 Pulse 79 04/22/21 10:43 Resp 18 04/22/21 07:00 BP 177/75 04/22/21 10:43 Pulse Ox 99 04/22/21 07:00 Intake & Output 04/21/21 04/22/21 04/22/21 18:59 06:59 18:59 Intake Total 340 450 Balance 340 450 Intake: Oral 340 450 Other: Voiding Method Toilet # Voids 1 3 - Exam Constitutional: No acute distress, conversant, pleasant Eyes:Anicteric sclerae, moist conjunctiva, no lid-lag, PERRLA, ENMT: Oropharynx clear, no erythema, exudates Neck: Supple, FROM, no masses, or JVD, No carotid bruits, No thyromegaly Lungs: Clear to auscultation, Clear to percussion, Normal respiratory effort, no accessory muscle use Cardiovascular: Heart regular in rate and rhythm, No murmurs, gallops, or rubs, No peripheral edema Abdominal: Soft, Nontender, no guarding, rebound or rigidity, Normoactive bowel sounds, No hepatomegaly, No splenomegaly, No palpable mass Skin: Normal temperature, tone, texture, turgor, no induration, No subcutaneous nodules, No rash, lesions, No ulcers Extremities: No digital cyanosis, No clubbing, Pedal pulses intact and symmetrical, Radial pulses intact and symmetrical, No calf tenderness Psychiatric: Alert and oriented to person, place and time, appropriate affect, intact judgement Neuro: Muscles Strength 5/5 in all 4 extremities, Sensation to light touch grossly present throughout, Cranial nerves II-XII grossly intact, no focal sensory deficits - Labs CBC & Chem 7: 04/22/21 05:52 04/22/21 05:52 Labs: Abnormal Lab Results - Last 24 Hours (Table) 04/21/21 04/21/21 04/22/21 Range/Units 17:20 20:09 05:52 Potassium 5.7 H (3.5-5.1) mmol/L Chloride 110 H (98-107) mmol/L Carbon Dioxide 21 L (22-30) mmol/L Glucose 67 L (74-99) mg/dL POC Glucose (mg/dL) 188 H 192 H (75-99) mg/dL 04/22/21 Range/Units 11:59 Potassium (3.5-5.1) mmol/L Chloride (98-107) mmol/L Carbon Dioxide (22-30) mmol/L Glucose (74-99) mg/dL POC Glucose (mg/dL) 154 H (75-99) mg/dL Microbiology - Last 24 Hours (Table) 04/20/21 15:32 Urine Culture - Preliminary Urine,Catheterized Gram Neg Bacilli 04/20/21 16:34 Stool Culture - Preliminary Stool Assessment and Plan Plan: Hypertensive urgency -BPs continue to be 200 systolic. Hydralazine titrated up to 75 mg TID by cardio, new med, Norvasc 10 mg daily and lisinopril 40 mg daily. -Cardiology consulted. Sinus bradycardia, likely multifactorial due to use of beta blockers and significant hypothyroidism with TSH of 48.900 -Echocardiogram showed mild concentric LVH and grade 1 diastolic dysfunction -TSH elevated at 48.900, f4ree T4 0.75. Synthroid increased to 150 mg daily. Will need close outpatient follow up with repeat TSH levels. -Metoprolol was discontinued. -Cardiology consulted. Dizziness/lightheadedness, likely multifactorial -Treatment of above Hyperlipidemia -Continue daily medication management with lovastatin. -Heart healthy diet Insulin-dependent diabetes mellitus Continue daily medication regimen with Levemir [address] patient on glycemic protocol with NovoLog sliding scale. Heart healthy carb consistent diet. BPH Continue daily medication regimen with finasteride Restless leg syndrome Neuropathy Continue daily medication regimen with Mirapex and Neurontin General weakness -PT Anticipated discharge date: Likely tomorrow morning Anticipated discharge place: await PT
[2021-04-22 16:53] LABS: Glucose,Whole Blood 223 mg/dL (75-99)
[2021-04-22 19:19] LABS: Glucose,Whole Blood 193 mg/dL (75-99)
[2021-04-22] MEDS: allopurinoL 300 MG TAB PO SCH (19:35)
[2021-04-22] MEDS: ATORVASTATIN 10 MG TAB PO SCH (19:35)
[2021-04-22] MEDS: SERTRALINE 100 MG TAB PO SCH (19:35)
[2021-04-23] MEDS: HEPARIN SODIUM,PORCINE/PF 5,000 UNIT/0.5 ML SYRINGE SQ SCH ×2 (00:42→09:21)
[2021-04-23 07:00] LABS: Glucose,Whole Blood 92 mg/dL (75-99)
[2021-04-23] MEDS ORDERED: hydrALAZINE HCL 25 MG TAB PO SCH (09:00)
[2021-04-23] MEDS: INSULIN DETEMIR (LEVEMIR) 100 UNIT/ML SYR SQ SCH (09:17)
[2021-04-23] MEDS: INSULIN ASPART (NovoLOG) 100 UNIT/ML VIAL SQ SCH ×2 (09:19→12:31)
[2021-04-23] MEDS: amLODIPine 10 MG TAB PO SCH (09:19)
[2021-04-23] MEDS: LEVOTHYROXINE 75 MCG TAB PO SCH (09:20)
[2021-04-23] MEDS: GABAPENTIN 300 MG CAP PO SCH (09:20)
[2021-04-23] MEDS: PANTOPRAZOLE 40 MG TABLET PO SCH (09:20)
[2021-04-23] MEDS: lisinopriL 20 MG TAB PO SCH (09:20)
[2021-04-23] MEDS: PRAMIPEXOLE 1 MG TAB PO SCH (09:21)
[2021-04-23] MEDS: FINASTERIDE 5 MG TAB PO SCH (09:22)
[2021-04-23] MEDS: hydroCHLOROthiazide 25 MG TAB PO SCH (09:22)
[2021-04-23] MEDS: HYDROcodone/APAP 7.5-325MG 1 EACH TAB PO PRN (09:28)
[2021-04-23 10:07] LABS: Basophils # (A) 0.05 X 10*3/uL (0.00-0.10); Basophils % (A) 0.6 %; Eosinophils # (A) 0.19 X 10*3/uL (0.04-0.35); Eosinophils % (A) 2.3 %; HCT 36.6 % (39.6-50.0); HGB 11.9 g/dL (13.0-17.0); Lymphocytes # (A) 1.47 X 10*3/uL (0.90-5.00); Lymphocytes % (A) 17.6 %; MCH 29.1 pg (27.0-32.0); MCHC 32.5 g/dL (32.0-37.0); MCV 89.5 fL (80.0-97.0); Mean Platelet Volume 11.8 fL (9.5-12.2); Monocytes # (A) 0.82 X 10*3/uL (0.20-1.00); Monocytes % (A) 9.8 %; Neutrophils # (A) 5.78 X 10*3/uL (1.80-7.70); Neutrophils % (A) 69.1 %; Platelet Count 193 X 10*3/uL (140-440); RBC 4.09 X 10*6/uL (4.40-5.60); RDW 15.2 % (11.5-14.5); WBC 8.36 X 10*3/uL (4.50-10.00)
--- NOTE | 2021-04-23 11:02 | P.PN ---
Subjective This is a 75-year-old male with a past medical history of type 2 diabetes, hyperlipidemia, hypertension. 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 Patient presents emergency department with findings of high blood pressure and lightheadedness. Cardiology was consulted for bradycardia, patient with HR in 40s in the emergency department and hypertension. Patient seen and examined at bedside this morning, he denies any chest pain, shortness of breath, lightheadedness, dizziness. His blood pressures have improved. blood pressure 165/83, heart rate 60, afebrile, oxygen saturation is 99% on room air. Telemetry reviewed patient in sinus mechanism heart rate 49-60s. No signs of significant bradycardia or pauses. Echocardiogram revealed an EF of 5560 percent, mild mitral rotation, mild tricuspid regurgitation. Labs reviewed, WBC 8.3, hemoglobin 11.9, platelets 193. He's currently maintained on amlodipine 10 mg daily, atorvastatin 10 mg nightly, hydralazine 75 mg 3 times a day, hydrochlorothiazide 25 mg daily, lisinopril 40 mg daily. PHYSICAL EXAM GENERAL: Well-appearing, well-nourished and in no acute distress. NECK: Supple without JVD or thyromegaly. LUNGS: Breath sounds clear to auscultation bilaterally. Respiration equal and unlabored. No wheezes, rales or rhonchi. HEART: Regular rate and rhythm without murmurs, rubs or gallops. S1 and S2 heard. EXTREMITIES: Normal range of motion, no edema. No clubbing or cyanosis. Pe ripheral pulses intact. ASSESSMENT: Hypertension, improved Bradycardia, most likely worsened by the hypothyroidism, his dose of synthroid has been adjusted. Beta zurdo is held. History of hyperlipidemia Type 2 Diabetes Prior History of cellulitis History of recent gastritis PLAN: -Patient's blood pressures have improved with the current medical regimen. From cardiology perspective patient stable for discharged home. Patient can follow up outpatient with Dr. Wheeler in the office for further BP management as an outpatient. Objective - Vital Signs Vital signs: Vital Signs Temp 97.7 F 04/23/21 07:00 Pulse 75 04/23/21 07:00 Resp 20 04/23/21 07:00 BP 165/83 04/23/21 07:00 Pulse Ox 97 04/23/21 07:00 Intake & Output 04/22/21 04/23/21 04/23/21 18:59 06:59 18:59 Intake Total 118 275 Balance 118 275 Intake: Oral 118 275 Other: Voiding Method Toilet # Voids 7 4 - Labs CBC & Chem 7: 04/23/21 06:24 04/22/21 05:52 Labs: Abnormal Lab Results - Last 24 Hours (Table) 04/22/21 04/22/21 04/22/21 Range/Units 11:59 16:50 19:18 RBC (4.40-5.60) X 10*6/uL Hgb (13.0-17.0) g/dL Hct (39.6-50.0) % RDW (11.5-14.5) % Immature Gran # (0.00-0.04) X 10*3/uL POC Glucose (mg/dL) 154 H 223 H 193 H (75-99) mg/dL 04/23/21 Range/Units 06:24 RBC 4.09 L (4.40-5.60) X 10*6/uL Hgb 11.9 L (13.0-17.0) g/dL Hct 36.6 L (39.6-50.0) % RDW 15.2 H (11.5-14.5) % Immature Gran # 0.05 H (0.00-0.04) X 10*3/uL POC Glucose (mg/dL) (75-99) mg/dL Microbiology - Last 24 Hours (Table) 04/20/21 15:32 Urine Culture - Preliminary Urine,Catheterized Gram Neg Bacilli
[2021-04-23 11:54] LABS: Glucose,Whole Blood 279 mg/dL (75-99)
[2021-04-23 12:49] LABS: African American GFR (CKD) 64.5 (60.0-200.0); Anion Gap 10.7 mmol/L (4.00-12.00); BUN/Creat Ratio 11.42 Ratio (12.00-20.00); Blood Urea Nitrogen 14.5 mg/dL (9.0-27.0); Calcium 8.9 mg/dL (8.7-10.3); Carbon Dioxide 22.3 mmol/L (21.6-31.8); Magnesium 1.9 mg/dL (1.5-2.4); Non-African American GFR(CKD) 55.7 (60.0-200.0); Phosphorus 2.9 mg/dL (2.4-5.1); Potassium 3.8 mmol/L (3.5-5.5)
--- NOTE | 2021-04-23 13:19 | P.DS ---
Providers Date of admission: 04/21/21 10:12 Expected date of discharge: 04/23/21 Attending physician: Vanessa Zimmer DO Consults: 04/21/21 10:29 Consult Physician Routine Consulting Provider: Janusz Ramon Consult Reason/Comments: bradycardia, hypertensive urgency Do you want consulting provider notified?: Yes Primary care physician: Emely Davis MD Hospital Course: 75-year-old male with a past medical history of hypertension, hyperlipidemia, insulin-dependent diabetes mellitus, hypothyroidism, BPH, restless leg syndrome, and neuropathy presented to the emergency department with a chief complaint of dizziness/lightheadedness. He states he was at home working with physical/occupational therapy when he became lightheaded/dizzy and they recommended him coming to the emergency department for evaluation. Prior to admission he was experiencing nausea, vomiting, and diarrhea. No fevers, chills, diaphoresis, chest pain, palpitations, shortness of breath, dyspnea with exertion, abdominal pain or discomfort, or experiencing any numbness/tingling/weakness in his extremities. Patient states in addition to his dizziness/lightheadedness, nausea, and upset feeling in his stomach He also has chronic pain in bilateral shoulders and legs. In the emergency department, patient was found to have bradycardia with heart rate in 40s. An EKG showed sinus bradycardia at 43 bpm with no noted T-wave or ST abnormalities. Labs completed. CBC and BMP unremarkable. Troponin normal findings at less than 0.012. Patient was admitted, with consultation to cardiology. He was found to have hypertensive urgency with BPs in the 200 systolic. He was started on hydralazine which was later titrated up to 75 mg tid. He was on norvasc and that was titrated up to 10 mg daily. Lisinopril and HCTZ were continued. Due to sinus bradycrdia metoprolol was held. TSH was very high at 49 with T4 0.75. Synthroid was increased to 150mcg daily. The dizziness was likely due to bradycardia and HTN. Echocardiogram was done and came back with moderate concentric LVH and grade 1 diastolic dysfunction. Due to abdominal symptoms he was hydrated and had CTA abdomen and pelvis revealing mild sigmoid diverticulosis without diverticulits, Horseshoe kidney and mild retroperitoneal fat stranding in the posterior abdomen along the left and right psoas muscle. He is currently doing very well. Ambulating without difficulties, will be discharged in a stable condition. Follow-up TSH should be done within the next 1-2 months in order to follow-up on the thyroid function. Time for discharge 35 minutes Patient Condition at Discharge: Stable Plan - Discharge Summary Discharge Rx Participant: No New Discharge Prescriptions: New hydroCHLOROthiazide [Hydrodiuril] 25 mg PO DAILY 30 Days #30 tab Atorvastatin [Lipitor] 10 mg PO HS 30 Days #30 tab Levothyroxine Sodium [Synthroid] 150 mcg PO DAILY@0730 30 Days #30 tab hydrALAZINE HCL [Apresoline] 75 mg PO TID 30 Days #90 tab Continue Cholecalciferol [Vitamin D3 (25 Mcg = 1000 Iu)] 1,000 unit PO HS Lovastatin [Mevacor] 20 mg PO HS lisinopriL [Zestril] 40 mg PO DAILY Insulin Detemir [Levemir Flextouch Pen] 40 units SQ BID Finasteride [Proscar] 5 mg PO DAILY allopurinoL [Zyloprim] 300 mg PO HS Pramipexole [Mirapex] 1 mg PO BID HYDROcodone/APAP 7.5-325MG [[place] 7.5-325] 1 tab PO Q6HR PRN 2 Days #8 tab PRN Reason: Pain Ondansetron Odt [Zofran ODT] 4 mg PO Q12HR PRN PRN Reason: Nausea Gabapentin [Neurontin] 300 mg PO TID PRN PRN Reason: NERVE PAIN Sertraline [Zoloft] 100 mg PO HS traZODone HCL [Desyrel] 100 - 200 mg PO HS PRN PRN Reason: SLEEP Vitamin B Complex 1 cap PO DAILY Discontinued Metoprolol Tartrate [Lopressor] 50 mg PO BID Levothyroxine Sodium [Synthroid] 112 mcg PO DAILY Hydrochlorothiazide [hydroCHLOROthiazide] 12.5 mg PO DAILY amLODIPine [Norvasc] 2.5 mg PO DAILY Discharge Medication List Cholecalciferol [Vitamin D3 (25 Mcg = 1000 Iu)] 1,000 unit PO HS 05/17/17 [History] Finasteride [Proscar] 5 mg PO DAILY 05/17/17 [History] Insulin Detemir [Levemir Flextouch Pen] 40 units SQ BID 05/17/17 [History] Lovastatin [Mevacor] 20 mg PO HS 05/17/17 [History] allopurinoL [Zyloprim] 300 mg PO HS 05/17/17 [History] lisinopriL [Zestril] 40 mg PO DAILY 05/17/17 [History] Pramipexole [Mirapex] 1 mg PO BID 02/17/21 [History] Sertraline [Zoloft] 100 mg PO HS 02/17/21 [History] HYDROcodone/APAP 7.5-325MG [[place] 7.5-325] 1 tab PO Q6HR PRN 2 Days #8 tab 02/20/21 [Rx] Gabapentin [Neurontin] 300 mg PO TID PRN 04/19/21 [History] Ondansetron Odt [Zofran ODT] 4 mg PO Q12HR PRN 04/19/21 [History] Vitamin B Complex 1 cap PO DAILY 04/19/21 [History] traZODone HCL [Desyrel] 100 - 200 mg PO HS PRN 04/19/21 [History] Atorvastatin [Lipitor] 10 mg PO HS 30 Days #30 tab 04/23/21 [Rx] Levothyroxine Sodium [Synthroid] 150 mcg PO DAILY@0730 30 Days #30 tab 04/23/21 [Rx] hydrALAZINE HCL [Apresoline] 75 mg PO TID 30 Days #90 tab 04/23/21 [Rx] hydroCHLOROthiazide [Hydrodiuril] 25 mg PO DAILY 30 Days #30 tab 04/23/21 [Rx] Follow up Appointment(s)/Referral(s): [facility], [NON-STAFF] - 1 Week Ry Wheeler MD [STAFF PHYSICIAN] - 05/07/21 3:45 pm Emely Davis MD [Primary Care Provider] - 1-2 days Activity/Diet/Wound Care/Special Instructions: Patient will resume home care services through [facility] upon discharge.
[2021-04-23 15:18] VITALS: PULSE 58
[2021-04-23 16:54] VITALS: BP 138/76; RESP 18; TEMP 98
== END 2021-04-23 16:37 | disposition home or self-care (01) | DRG 305 ==
LOC: EC 13:03 → 6NMEDSUR 15:51 → OBSVTOIN 04-21 10:12
PROVIDERS: ADMIT Internal Medicine; ATTEND Internal Medicine
DX: I16.0 Hypertensive urgency (principal); I10 Essential (primary) hypertension; R00.1 Bradycardia, unspecified; E03.9 Hypothyroidism, unspecified; R53.1 Weakness; Z20.822 Contact with and (suspected) exposure to COVID-19; E78.5 Hyperlipidemia, unspecified; I08.1 Rheumatic disorders of both mitral and tricuspid valves; E11.42 Type 2 diabetes mellitus with diabetic polyneuropathy; T44.7X5A Adverse effect of beta-adrenoreceptor antagonists, initial encounter; K52.9 Noninfective gastroenteritis and colitis, unspecified; G89.29 Other chronic pain; N40.0 Benign prostatic hyperplasia without lower urinary tract symptoms; K57.30 Diverticulosis of large intestine without perforation or abscess without bleeding; K29.70 Gastritis, unspecified, without bleeding; E86.0 Dehydration; G25.81 Restless legs syndrome; Z88.1 Allergy status to other antibiotic agents; Z79.4 Long term (current) use of insulin; Z79.890 Hormone replacement therapy; Z79.899 Other long term (current) drug therapy; Z85.828 Personal history of other malignant neoplasm of skin; Z88.8 Allergy status to other drugs, medicaments and biological substances; X58.XXXA Exposure to other specified factors, initial encounter; Z87.19 Personal history of other diseases of the digestive system
CPT/HCPCS: 36415; 74018; 74174; 80048; 80053; 83735; 84100; 84439; 84443; 84484; 85025; 85027; 87045; 87046; 87077; 87086; 87186; 87324; 87635; 93005; 93306; 96374; 99285

== ENCOUNTER 2021-07-10 06:08 | Day surgery (SDC) | payer MEDICARE, OTHER ==
[2021-07-09 12:56] VITALS: BMI 33.4
[~2021-07-10 06:08] MED LIST changes: +ALPRAZolam 0.25 MG TAB PO PRN; +ALPRAZolam 0.5 MG TAB PO PRN; +ASPIRIN 325 MG TAB PO STA; +ATORVASTATIN 80 MG TAB PO STA; -BACITRACIN 50,000 UNIT, POLYMYXIN B 500,000 UNIT in SODIUM CHLORIDE 0.9% IRRIGATIO 1,00... IRRIGATION ONE; +NITROGLYCERIN SL TABS 0.4 MG TAB SUBLINGUAL PRN; +SODIUM CHLORIDE 0.9% 1,000 ML in EMPTY BAG 1 BAG IV SCH; -ceFAZolin IN SWFI 2 GM/20 ML SYRINGE IVP ONE
[2021-07-10 06:41] LABS: Glucose,Whole Blood 215 mg/dL (75-99)
[2021-07-10] MEDS ORDERED: INSULIN ASPART (NovoLOG) 100 UNIT/ML VIAL SQ ONE (06:43)
[2021-07-10 06:54] LABS: Basophils % (A) 0 %; Eosinophils # (A) 0.1 k/uL (0-0.7); Eosinophils % (A) 2 %; HCT 38.9 % (39.0-53.0); HGB 12.8 gm/dL (13.0-17.5); Lymphocytes # (A) 1.4 k/uL (1.0-4.8); Lymphocytes % (A) 18 %; MCH 30.4 pg (25.0-35.0); MCV 92.2 fL (80.0-100.0); Mean Platelet Volume 8.2; Monocytes # (A) 0.7 k/uL (0-1.0); Monocytes % (A) 8 %; Neutrophils # (A) 5.4 k/uL (1.3-7.7); Neutrophils % (A) 69 %; Platelet Count 226 k/uL (150-450); RBC 4.22 m/uL (4.30-5.90); RDW 15.1 % (11.5-15.5); WBC 7.8 k/uL (3.8-10.6)
[2021-07-10 07:01] VITALS: TEMP 97.2
[2021-07-10 07:07] LABS: Calcium 10.1 mg/dL (8.4-10.2)
[2021-07-10] MEDS ORDERED: VERAPAMIL 2.5 MG/ML 2 ML AMP ONE (07:15)
[2021-07-10] MEDS ORDERED: LIDOCAINE 1% INJ 10MG/ML (20 ML MDV) ONE (07:15)
[2021-07-10] MEDS ORDERED: HEPARIN SODIUM 1,000 UN/ML (10ML VL) ONE (07:15)
[2021-07-10] MEDS ORDERED: fentaNYL (PF) 50 MCG/ML 2 ML AMP ONE (07:16)
[2021-07-10] MEDS ORDERED: fentaNYL (PF) 50 MCG/ML 2 ML AMP IV ONE (07:35)
[2021-07-10] MEDS ORDERED: LIDOCAINE 1% INJ 10MG/ML (20 ML MDV) SQ ONE (07:38)
[2021-07-10] MEDS ORDERED: VERAPAMIL SYRINGE (5 MG/10 ML) INTRAARTER ONE (07:39)
[2021-07-10] MEDS ORDERED: MIDAZOLAM 2 MG/2 ML VIAL IV ONE (07:39)
[2021-07-10] MEDS ORDERED: HEPARIN SODIUM 1,000 UN/ML (10ML VL) IV ONE (07:45)
[2021-07-10] MEDS ORDERED: RX INFO: IV CONTRAST WAS GIVEN 1 EACH MISC MISCELLANE PRN (08:03)
[2021-07-10] MEDS ORDERED: HYDROcodone/APAP 7.5-325MG 1 EACH TAB PO PRN (08:04)
[2021-07-10] MEDS ORDERED: GABAPENTIN 300 MG CAP PO PRN (08:04)
--- NOTE | 2021-07-10 08:13 | P.CARDCATH ---
Date of Procedure: 07/10/21 Description of Procedure: CARDIAC CATHETERIZATION REPORT CLINICAL HISTORY: [The patient is a 75-year-old male with a history of hypertension, hyperlipidemia and diabetes mellitus who recently had a myocardial perfusion imaging that showed evidence of stress-induced ischemia. In view of the findings and recommendations were made regarding cardiac catheterization, the risks and the complications were discussed with the patient was informed standing and agreement.] PROCEDURE: The patient was brought to the cardiac catheterization lab in a fasting, semi-sedated state after receiving Versed and Benadryl. The patient was prepped and draped in the conventional fashion. Using Xylocaine anesthesia, in the Seldinger technique, a 6 [place] sheath was introduced in the right radial artery. Selective right and left coronary angiography performed using 5 [place], 3.5 bend right and left Rina catheter. Multiple views of the coronary artery, including hemiaxial views were obtained. Following that, a 6 [place] tight pigtail catheter was introduced in the left ventricle and pressure of the left ventricle was obtained. At the end of the procedure the catheter and sheath were removed. Hemostasis was obtained with [deployment of a TR band]. The patient received 5000 unit intravenous heparin and intra-arterial verapamil There were no immediate complications. The patient was returned to the room in stable condition. SELECTIVE CORONARY ARTERIOGRAPHY: Fluoroscopy there was calcification involving the RCA LEFT MAIN CORONARY ARTERY: [This is a large size vessel, bifurcating to LAD and left circumflex, left main has no evidence of high-grade stenosis.] LEFT ANTERIOR DESCENDING CORONARY ARTERY: [This is a large size vessel, giving rise to a large diagonal branch, the takeoff of the diagonal branch there is a 30-40% plaque in the LAD, rest of the vessel has no evidence of high-grade s tenosis] LEFT CIRCUMFLEX CORONARY ARTERY: This is a nondominant vessel, the obtuse marginal branch, has mild intimal disease in proximal segment of 20-30% RIGHT CORONARY ARTERY: This is a large dominant vessel, bifurcating into PDA and PLV, the RCA has a 30-40% plaque proximally with mild disease in the midsegment with no evidence of high-grade stenosis LEFT VENTRICULOGRAM: Not performed HEMODYNAMICS: There was no gradient across the aortic valve, LVEDP 10-14 mmHg CONCLUSION: 1. Calcified RCA. 2. Mild to moderate triple-vessel coronary artery disease RECOMMENDATIONS: In view of the activity I have recommended to continue aggressive coronary risks modifications and depending on his progress further recommendations will be made. The findings were discussed with the patient and his family, they are in full understanding and agreement. Duration of sedation 18 minutes.
[2021-07-10] MEDS ORDERED: SODIUM CHLORIDE 0.9% 1,000 ML IV SCH (08:15)
[2021-07-10 09:52] VITALS: BP 142/62; PULSE 54; RESP 16
[2021-07-10] MEDS ORDERED: INSULIN DETEMIR (LEVEMIR) 100 UNIT/ML SYR SQ SCH (11:00)
[2021-07-10] MEDS ORDERED: PRAMIPEXOLE 1 MG TAB PO STA (12:12)
[2021-07-10] MEDS ORDERED: PRAMIPEXOLE 1 MG TAB PO SCH (16:00)
[2021-07-10] MEDS ORDERED: hydrALAZINE HCL 50 MG TAB PO SCH (21:00)
[2021-07-10] MEDS ORDERED: ATORVASTATIN 10 MG TAB PO SCH (21:00)
[2021-07-10] MEDS ORDERED: SERTRALINE 50 MG TAB PO SCH (21:00)
[2021-07-10] MEDS ORDERED: traZODone HCL 100 MG TAB PO SCH (21:00)
[2021-07-11] MEDS ORDERED: LEVOTHYROXINE 75 MCG TAB PO SCH (07:30)
[2021-07-11] MEDS ORDERED: FINASTERIDE 5 MG TAB PO SCH (09:00)
[2021-07-11] MEDS ORDERED: ASPIRIN 81 MG PO SCH (09:00)
[2021-07-11] MEDS ORDERED: amLODIPine 10 MG TAB PO SCH (09:00)
== END 2021-07-10 12:47 | disposition home or self-care (01) ==
LOC: CATHCVL 06:08
PROVIDERS: ATTEND Internal Medicine Interventional Cardiology
DX: I25.10 Atherosclerotic heart disease of native coronary artery without angina pectoris (principal); Z20.822 Contact with and (suspected) exposure to COVID-19
CPT/HCPCS: 93458; 80048; 85025; 87635; C1894; C1769; J2250; J2001; J3010; J1644

== ENCOUNTER 2021-12-07 14:28 | Emergency (ER) | payer MEDICARE, OTHER ==
[2021-12-07 14:47] VITALS: BP 176/74; PULSE 67; RESP 18; TEMP 98.1
[2021-12-07 15:42] LABS: Glucose,Whole Blood 220 mg/dL (70-110)
[2021-12-07] MEDS ORDERED: SODIUM CHLORIDE 0.9% 1,000 ML IV STA (16:19)
[2021-12-07] MEDS ORDERED: CARBAMIDE PEROXIDE 6.5% DROPS 15 ML BTL RIGHT EAR STA (16:20)
--- NOTE | 2021-12-07 16:37 | ED ---
General Adult HPI - General Chief complaint: Fall Stated complaint: Fall 12/07/Dizziness/Headache Time Seen by Provider: 12/07/21 15:22 Source: patient, RN notes reviewed Mode of arrival: ambulatory Limitations: no limitations - History of Present Illness Initial comments: 76-year-old male presents to the emergency department for evaluation of dizziness and left arm pain status post fall yesterday morning. Patient states his left leg gave out on him while he was ambulating and he fell onto his left side. Reports his fall occurred on carpeted surface and EMS was required to assist him to standing. States he did not hit his head and denies loss of c onsciousness. Does complain of left upper arm pain and lateral neck pain. States he slept poorly last night due to his concern of feeling dizzy. Also reports mild headache today. Additionally, patient states he was bit by a tick several weeks ago. His son states it was not a deer tick and denies any associated rash. Denies fever, chills, chest pain, difficulty breathing, abdominal pain, nausea, vomiting, diarrhea, dysuria, back pain, or lower extremity injury. - Related Data Home Medications Medication Instructions Recorded Confirmed Cholecalciferol [Vitamin D3 (25 25 mcg PO HS 05/17/17 07/10/21 Mcg = 1000 Iu)] Finasteride [Proscar] 5 mg PO DAILY 05/17/17 07/10/21 Insulin Detemir [Levemir Flextouch 40 units SQ BID 05/17/17 07/10/21 Pen] allopurinoL [Zyloprim] 300 mg PO HS 05/17/17 07/10/21 Pramipexole [Mirapex] 1 mg PO TID 02/17/21 07/10/21 Sertraline [Zoloft] 50 mg PO HS 02/17/21 07/10/21 Gabapentin [Neurontin] 300 mg PO TID PRN 04/19/21 07/10/21 Vitamin B Complex 1 cap PO DAILY 04/19/21 07/10/21 traZODone HCL [Desyrel] 100 mg PO HS 04/19/21 07/10/21 Aspirin 81 mg PO DAILY 07/09/21 07/10/21 Levothyroxine Sodium [Synthroid] 75 mcg PO DAILY@0730 07/09/21 07/10/21 amLODIPine [Norvasc] 10 mg PO DAILY 07/09/21 07/10/21 hydrALAZINE HCL [Apresoline] 100 mg PO BID 07/09/21 07/10/21 Previous Rx's Medication Instructions Recorded HYDROcodone/APAP 7.5-325MG [[place] 1 tab PO Q6HR PRN 2 Days #8 tab 02/20/21 7.5-325] Atorvastatin [Lipitor] 10 mg PO HS 30 Days #30 tab 04/23/21 hydroCHLOROthiazide [Hydrodiuril] 25 mg PO DAILY 30 Days #30 tab 04/23/21 Allergies Allergy/AdvReac Type Severity Reaction Status Date / Time enalaprilat [From Vasotec] Allergy felt weak, Verified 12/07/21 14:47 couldn't talk erythromycin base AdvReac Nausea & Verified 12/07/21 14:47 [From Erythrocin] Vomiting Review of Systems ROS Statement: Those systems with pertinent positive or pertinent negative responses have been documented in the HPI. ROS Other: All systems not noted in ROS Statement are negative. Past Medical History Past Medical History: Cancer, Diabetes Mellitus, Hyperlipidemia, Hypertension, Osteoarthritis (OA), Prostate Disorder, Thyroid Disorder Additional Past Medical History / Comment(s): skin cancer, neuropathy , restless legs History of Any Multi-Drug Resistant Organisms: None Reported Past Surgical History: Orthopedic Surgery Additional Past Surgical History / Comment(s): sinus sx. cancer removed lt ear. colonoscopy 07-07-17 anterior cervical decompression/discectomy/fusion c3-4, c4-5 Past Anesthesia/Blood Transfusion Reactions: No Reported Reaction Past Psychological History: Anxiety, Depression Smoking Status: Former smoker - Past Family History Father Additional Family Medical History / Comment(s): aortic aneurysm Mother Family Medical History: Cancer Additional Family Medical History / Comment(s): pancreas cancer General Exam Limitations: no limitations General appearance: alert, in no apparent distress (Developed, well-nourished male in no acute distress. Initial temperature 98.1, pulse 67, respirations 18, blood pressure 176/74, pulse ox 98% on room air.) Head exam: Present: atraumatic, normocephalic, normal inspection Expanded Head exam: Absent: laceration, abrasion, contusion, hematoma Eye exam: Present: normal appearance, PERRL, EOMI. Absent: scleral icterus, conjunctival injection, periorbital swelling, periorbital tenderness ENT exam: Present: normal oropharynx, TM's normal bilaterally Expanded Ear exam: Present: normal external inspection TM/Canal exam: Cerumen Impaction: Right TM Neck exam: Present: full ROM, other (small contusion oriented left anterolateral position of neck. ). Absent: normal inspection (.5cm diameter scab distal cervical spine, midline- healing site of tick removal), tenderness, meningismus Respiratory exam: Present: normal lung sounds bilaterally. Absent: respiratory distress, wheezes, rales, rhonchi, stridor, chest wall tenderness Cardiovascular Exam: Present: regular rate, normal rhythm, normal heart sounds. Absent: systolic murmur, diastolic murmur, rubs, gallop, clicks GI/Abdominal exam: Present: soft, normal bowel sounds. Absent: distended, tenderness, guarding, rebound, rigid Right Knee exam: Present: abrasion (small abrasion to right knee; cleansed and dressed prior to arrival) Lower Leg exam: Present: swelling (dependent edema baseline; wearing ETHAN hose) Neurovascular tendon exam: Present: no vascular compromise Left Lower Leg exam: Present: swelling (dependent edema baseline; wearing ETHAN hose) Neurovascular tendon exam: Present: no vascular compromise Back exam: Present: normal inspection, full ROM. Absent: paraspinal tenderness, vertebral tenderness Neurological exam: Present: alert, oriented X3 Expanded Patient oriented to: Present: person, place, time Speech: Present: fluid speech Cranial nerves: EOM's Intact: Normal, Tongue Deviation: Normal Cerebellar function: Finger to Nose: Normal, Romberg: Normal Motor strength exam: RUE: 5, LUE: 5, RLE: 4, LLE: 4 Eye Response: (4) open spontaneously Motor Response: (6) obeys commands Verbal Response: (5) oriented Romney Total: 15 Psychiatric exam: Present: normal affect, normal mood Skin exam: Present: warm, dry, normal color. Absent: rash Course Vital Signs 12/07/21 14:42 Temperature 98.1 F Pulse Rate 67 Respiratory 18 Rate Blood Pressure 176/74 O2 Sat by Pulse 98 Oximetry - Reevaluation(s) Reevaluation #1: 12/07/21 18:45 Upon reassessment, patient is resting comfortably. States he is pain-free. He did have an episode of dizziness when repositioned upright for Xray, but not when laying supine for CT. Patient has not received his IV fluids therefore these were attached and will infuse, then will reassess. 12/07/21 19:30 Orthostatic measurements: Flat 177/84, 62. Sitting 186/85, 70. Standing 184/89, 75 12/07/21 20:00 Patient assisted to bathroom via wheelchair. Able to transfer to commode without difficulty. States dizziness has resolved and expresses readiness for discharge. Procedures - Ear Wax Removal Right Ear Ear Canal Irrigated by: other (DIRECTOR OPERATING ROOM) Ear Canal(s) Curetted: plastic scoops Results: Re-examined: cerumen removed completely TM Visible: TM(s) intact, normal appearance Ear Canal: atraumatic Patient Tolerated Procedure: well Complications: no problems Medical Decision Making - Medical Decision Making This is a 76-year-old male with a past medical history of diabetes, hypertension, flank syndrome, and mobility limitations who presents to the emergency department for evaluation of dizziness and muscle aches status post fall yesterday. Upon exam, patient is well-appearing and in no acute distress. He is able to articulate himself and events of his fall clearly. Patient denies any injury to his head. Dizziness is worsened with position change. Patient is neurologically intact with no focal deficits. CT and x-rays were obtained and are unremarkable. EKG shows normal sinus rhythm with no ectopy. Laboratory studies are baseline for patient. Patient was given a liter of IV fluids with significant improvement. Cerumen impaction in the right ear was removed with a curette; tympanic membrane nonerythematous and nonbulging. Given patient's overall improvement, baseline laboratory studies, and has expressed desire to go home, patient will be discharged to follow up with his PCP on an outpatient basis. He lives at home with his son. Strict return parameters were discussed in detail. Patient verbalizes understanding and agrees with this plan. Attending: Serge. - Lab Data Result diagrams: 12/07/21 16:36 12/07/21 16:36 Lab Results 12/07/21 12/07/21 12/07/21 Range/Units 15:39 16:36 16:36 WBC 7.8 (3.8-10.6) k/uL RBC 3.36 L (4.30-5.90) m/uL Hgb 10.6 L (13.0-17.5) gm/dL Hct 31.4 L (39.0-53.0) % MCV 93.3 (80.0-100.0) fL MCH 31.7 (25.0-35.0) pg MCHC 33.9 (31.0-37.0) g/dL RDW 14.4 (11.5-15.5) % Plt Count 191 (150-450) k/uL MPV 8.9 Neutrophils % 71 % Lymphocytes % 16 % Monocytes % 8 % Eosinophils % 2 % Basophils % 1 % Neutrophils # 5.6 (1.3-7.7) k/uL Lymphocytes # 1.3 (1.0-4.8) k/uL Monocytes # 0.6 (0-1.0) k/uL Eosinophils # 0.2 (0-0.7) k/uL Basophils # 0.1 (0-0.2) k/uL PT 9.6 (9.0-12.0) sec INR 0.9 (<1.2) Sodium (137-145) mmol/L Potassium (3.5-5.1) mmol/L Chloride (98-107) mmol/L Carbon Dioxide (22-30) mmol/L Anion Gap mmol/L BUN (9-20) mg/dL Creatinine (0.66-1.25) mg/dL Est GFR (CKD-EPI)AfAm (>60 ml/min/1.73 sqM) Est GFR (CKD-EPI)NonAf (>60 ml/min/1.73 sqM) Glucose (74-99) mg/dL POC Glucose (mg/dL) 220 H (70-110) mg/dL POC Glu [employer] Custodian ID [facility] Calcium (8.4-10.2) mg/dL Total Bilirubin (0.2-1.3) mg/dL AST (17-59) U/L ALT (4-49) U/L Alkaline Phosphatase (38-126) U/L Troponin I (0.000-0.034) ng/mL Total Protein (6.3-8.2) g/dL Albumin (3.5-5.0) g/dL Urine Color Urine Appearance (Clear) Urine pH (5.0-8.0) Ur Specific [place] (1.001-1.035) Urine Protein (Negative) Urine Glucose (UA) (Negative) Urine Ketones (Negative) Urine Blood (Negative) Urine Nitrite (Negative) Urine Bilirubin (Negative) Urine Urobilinogen (<2.0) mg/dL Ur Leukocyte Esterase (Negative) Urine RBC (0-5) /hpf Urine WBC (0-5) /hpf Ur Squamous Epith Cells (0-4) /hpf Urine Mucus (None) /hpf 12/07/21 12/07/21 12/07/21 Range/Units 16:36 16:36 16:36 WBC (3.8-10.6) k/uL RBC (4.30-5.90) m/uL Hgb (13.0-17.5) gm/dL Hct (39.0-53.0) % MCV (80.0-100.0) fL MCH (25.0-35.0) pg MCHC (31.0-37.0) g/dL RDW (11.5-15.5) % Plt Count (150-450) k/uL MPV Neutrophils % % Lymphocytes % % Monocytes % % Eosinophils % % Basophils % % Neutrophils # (1.3-7.7) k/uL Lymphocytes # (1.0-4.8) k/uL Monocytes # (0-1.0) k/uL Eosinophils # (0-0.7) k/uL Basophils # (0-0.2) k/uL PT (9.0-12.0) sec INR (<1.2) Sodium 135 L (137-145) mmol/L Potassium 5.1 (3.5-5.1) mmol/L Chloride 104 (98-107) mmol/L Carbon Dioxide 25 (22-30) mmol/L Anion Gap 6 mmol/L BUN 40 H (9-20) mg/dL Creatinine 1.47 H (0.66-1.25) mg/dL Est GFR (CKD-EPI)AfAm 54 (>60 ml/min/1.73 sqM) Est GFR (CKD-EPI)NonAf 46 (>60 ml/min/1.73 sqM) Glucose 215 H (74-99) mg/dL POC Glucose (mg/dL) (70-110) mg/dL POC Glu Bank Vault Custodian ID Calcium 8.9 (8.4-10.2) mg/dL Total Bilirubin 0.5 (0.2-1.3) mg/dL AST 39 (17-59) U/L ALT 24 (4-49) U/L Alkaline Phosphatase 50 (38-126) U/L Troponin I <0.012 (0.000-0.034) ng/mL Total Protein 6.4 (6.3-8.2) g/dL Albumin 3.9 (3.5-5.0) g/dL Urine Color Yellow Urine Appearance Clear (Clear) Urine pH 6.5 (5.0-8.0) Ur Specific [place] 1.012 (1.001-1.035) Urine Protein 2+ H (Negative) Urine Glucose (UA) Trace H (Negative) Urine Ketones Negative (Negative) Urine Blood Trace H (Negative) Urine Nitrite Negative (Negative) Urine Bilirubin Negative (Negative) Urine Urobilinogen <2.0 (<2.0) mg/dL Ur Leukocyte Esterase Negative (Negative) Urine RBC 11 H (0-5) /hpf Urine WBC 1 (0-5) /hpf Ur Squamous Epith Cells <1 (0-4) /hpf Urine Mucus Rare H (None) /hpf - EKG Data EKG shows normal: sinus rhythm Rate: normal EKG Comments: EKG obtained at 15:29 shows sinus rhythm with borderline left axis deviation. Ventricular rate 67, ME interval 180, QRS duration 106, QT/QTc 402/418. Interpretation borderline ECG. - Radiology Data Radiology results: report reviewed, image reviewed Two-view chest x-ray was obtained. Report was reviewed in its entirety. Impression per Dr. Yee is no active cardiopulmonary disease. No change. X-ray of the left humerus was obtained. Report was reviewed in its entirety. Impression per Dr. Yee is negative left humerus exam. No change. CT of the brain and C-spine without contrast was obtained. Report was reviewed in its entirety. Impression per Dr. Yee is mild cerebral atrophy. No acute intracranial abnormality. Spinal fusion surgery. No complicating process seen. No cervical spine. Thickening of the soft palate increased compared to old exam. Disposition Clinical Impression: Fall, Dizziness, Left arm pain Disposition: HOME SELF-CARE Condition: Stable Instructions (If sedation given, give patient instructions): Fall Prevention for Older Adults (ED), Dizziness (ED) Additional Instructions: Make your position changes slowly. Drink plenty of water. Continue to use your May apply heat or ice to sore arm. Take your home medications tonight when you arrive home. Follow-up with your PCP for a recheck Wednesday or Wednesday. Return to the emergency department with any new, worsening, or concerning symp toms. Is patient prescribed a controlled substance at d/c from ED?: No Referrals: Emely Davis MD [Primary Care Provider] - 1-2 days Time of Disposition: 20:44
[2021-12-07 16:50] LABS: Basophils # (A) 0.1 k/uL (0-0.2); Basophils % (A) 1 %; Eosinophils # (A) 0.2 k/uL (0-0.7); Eosinophils % (A) 2 %; HCT 31.4 % (39.0-53.0); HGB 10.6 gm/dL (13.0-17.5); Lymphocytes # (A) 1.3 k/uL (1.0-4.8); Lymphocytes % (A) 16 %; MCH 31.7 pg (25.0-35.0); MCHC 33.9 g/dL (31.0-37.0); MCV 93.3 fL (80.0-100.0); Mean Platelet Volume 8.9; Monocytes # (A) 0.6 k/uL (0-1.0); Monocytes % (A) 8 %; Neutrophils # (A) 5.6 k/uL (1.3-7.7); Neutrophils % (A) 71 %; Platelet Count 191 k/uL (150-450); RBC 3.36 m/uL (4.30-5.90); RDW 14.4 % (11.5-15.5); WBC 7.8 k/uL (3.8-10.6)
[2021-12-07 16:57] LABS: Albumin 3.9 g/dL (3.5-5.0); Calcium 8.9 mg/dL (8.4-10.2); Total Bilirubin 0.5 mg/dL (0.2-1.3); Total Protein 6.4 g/dL (6.3-8.2)
[2021-12-07 16:58] LABS: Potassium 5.1 mmol/L (3.5-5.1)
[2021-12-07 17:02] LABS: INR 0.9 (<1.2); Prothrombin Time 9.6 sec (9.0-12.0)
--- NOTE | 2021-12-07 17:55 | CT ---
EXAMINATION TYPE: CT brain shorty gonzalez con DATE OF EXAM: 12/07/2021 COMPARISON: 05/17/2017 HISTORY: dizziness, fall CT DLP: 1603.5 mGycm Automated exposure control for dose reduction was used. Images of the brain and cervical spine obtained with no contrast. There is mild cerebral cortical atrophy. There is no mass effect or midline shift. No sign of intracr anial hemorrhage. Calvarium is intact. No evidence of cerebral edema. The cervical vertebra have normal alignment. There is old anterior fusion surgery from C3 to C5. Ther e is C6-7 and C7-T1 disc space narrowing. Facet joints are intact. No fracture seen. Prevertebral sof t tissues are intact. There is thickening of the posterior soft palate and narrowing of the nasophary ngeal airway. IMPRESSION: Mild cerebral atrophy. No acute intracranial abnormality. Spinal fusion surgery. No complicating proc ess seen. No cervical spine fracture. Thickening of the soft palate increased compared to old exam.
--- NOTE | 2021-12-07 17:56 | XR ---
EXAMINATION TYPE: XR humerus LT DATE OF EXAM: 12/07/2021 COMPARISON: 05/17/2017 HISTORY: Arm pain TECHNIQUE: FINDINGS: Elbow joint and shoulder joint appear intact. I see no fracture nor dislocation. Scapula ap pears intact. IMPRESSION: Negative left humerus exam. No change.
--- NOTE | 2021-12-07 17:57 | XR ---
EXAMINATION TYPE: XR chest 2V DATE OF EXAM: 12/07/2021 COMPARISON: NONE HISTORY: Pain TECHNIQUE: 2 view FINDINGS: Heart and mediastinum are normal. Lungs are clear. Diaphragm is fairly normal. There are no hilar masses. Costophrenic angles are clear. There are chest leads. Bony thorax is intact. No pleura l effusion or pneumothorax. IMPRESSION: No active cardiopulmonary disease. No change.
[2021-12-07 18:01] LABS: Appearance,Urine Clear (Clear); Bilirubin,Urine Negative (Negative); Blood,Urine Trace (Negative); Color,Urine Yellow; Glucose,Urine (UA) Trace (Negative); Ketones,Urine Negative (Negative); Leukocyte Esterase,Urine Negative (Negative); Mucus,Urine Rare /hpf; Nitrite,Urine Negative (Negative); PH, Urine 6.5 (5.0-8.0); Protein,Urine 2+ (Negative); RBC,Urine 11 /hpf (0-5); Specific Gravity,Urine 1.012 (1.001-1.035); Squamous Epithelial Cell,Urine <1 /hpf (0-4); Urobilinogen,Urine <2.0 mg/dL (<2.0); WBC,Urine 1 /hpf (0-5)
== END 2021-12-07 21:45 | disposition home or self-care (01) ==
LOC: EC 14:28
DX: M79.602 Pain in left arm (principal); R42 Dizziness and giddiness; E78.5 Hyperlipidemia, unspecified; I10 Essential (primary) hypertension; E11.9 Type 2 diabetes mellitus without complications; Z87.891 Personal history of nicotine dependence; Z88.1 Allergy status to other antibiotic agents; Z88.8 Allergy status to other drugs, medicaments and biological substances
CPT/HCPCS: 36415; 70450; 71046; 72125; 80053; 81001; 84484; 85025; 85610; 93005; 96360; 99284

== ENCOUNTER 2022-02-02 16:08 | Inpatient (IN) | payer MEDICARE, OTHER ==
[2022-02-02 16:49] LABS: Basophils % (A) 0 %; Eosinophils # (A) 0.2 k/uL (0-0.7); Eosinophils % (A) 2 %; HCT 25.7 % (39.0-53.0); Lymphocytes # (A) 0.7 k/uL (1.0-4.8); Lymphocytes % (A) 8 %; MCH 30.3 pg (25.0-35.0); MCHC 32.4 g/dL (31.0-37.0); MCV 93.6 fL (80.0-100.0); Mean Platelet Volume 9.4; Monocytes # (A) 0.4 k/uL (0-1.0); Monocytes % (A) 5 %; Neutrophils # (A) 6.8 k/uL (1.3-7.7); Neutrophils % (A) 83 %; Platelet Count 201 k/uL (150-450); RBC 2.74 m/uL (4.30-5.90); WBC 8.2 k/uL (3.8-10.6)
[2022-02-02 16:50] LABS: HGB 8.3 gm/dL (13.0-17.5)
[2022-02-02 16:52] LABS: Albumin 3.5 g/dL (3.5-5.0); Calcium 8.8 mg/dL (8.4-10.2); Potassium 5.1 mmol/L (3.5-5.1); Total Bilirubin 0.4 mg/dL (0.2-1.3); Total Protein 6.1 g/dL (6.3-8.2)
[2022-02-02 17:00] LABS: INR 0.9 (<1.2); Partial Thromboplastin Time 26.4 sec (22.0-30.0); Prothrombin Time 9.7 sec (9.0-12.0)
--- NOTE | 2022-02-02 17:03 | XR ---
EXAMINATION TYPE: XR chest 2V DATE OF EXAM: 02/02/2022 4:59 PM COMPARISON: Chest radiographs from 12/07/2021. TECHNIQUE: XR chest 2V Frontal and lateral views of the chest. CLINICAL INDICATION:Male, 76 years old with history of difficulty breathing; FINDINGS: Lungs/Pleura: Multifocal airspace opacities most pronounced in the right lower lobe. No evidence of p neumothorax or pleural effusion. Pulmonary vascularity: Unremarkable. Heart/mediastinum: Cardiomediastinal silhouette is unremarkable. Musculoskeletal: No acute osseous pathology. IMPRESSION: Multifocal airspace opacities concerning for pneumonia.
[2022-02-02] MEDS ORDERED: PNEUMONIA PROTOCOL UTILIZED 1 EACH MISC PO PRN (22:19)
[2022-02-02] MEDS ORDERED: IPRATROPIUM-ALBUTEROL 3 ML NEB INHALATION PRN (22:19)
[2022-02-02 22:22] LABS: Glucose,Whole Blood 122 mg/dL (70-110)
[2022-02-02] MEDS ORDERED: LEVOFLOXACIN 500MG-D5W PMX 500 MG in DEXTROSE/WATER 1 100ML.BAG IVPB STA (22:25)
[2022-02-02] MEDS ORDERED: SODIUM CHLORIDE 0.9% 1,000 ML IV SCH (22:30)
--- NOTE | 2022-02-02 22:30 | ED ---
SOB HPI - General Chief Complaint: Shortness of Breath Stated Complaint: CHF,SOB,Legs swollen Time Seen by Provider: 02/02/22 21:37 Source: patient, RN notes reviewed, old records reviewed Mode of arrival: wheelchair Limitations: no limitations - History of Present Illness Initial Comments: This is a 76-year-old male to the ER for evaluation today. Patient presents today for evaluation regards to weakness fatigue shortness of breath and lower extremity edema. Patient denying any fever no chest pain. She does admit to worsening shortness of breath especially with exertion. No travel history no sick contacts. Patient also missed of feeling increasing weakness MD Complaint: shortness of breath -: days(s) Severity: moderate Severity scale (1-10): 7 Quality: aching Consistency: constant, intermittent Worsens With: nothing Known History Of: congestive heart failure Context: recent URI, recent illness Associated Symptoms: chest pain Treatments Prior to Arrival: none - Related Data Home Medications Medication Instructions Recorded Confirmed Cholecalciferol [Vitamin D3 (25 25 mcg PO HS 05/17/17 07/10/21 Mcg = 1000 Iu)] Finasteride [Proscar] 5 mg PO DAILY 05/17/17 07/10/21 Insulin Detemir [Levemir Flextouch 40 units SQ BID 05/17/17 07/10/21 Pen] allopurinoL [Zyloprim] 300 mg PO HS 05/17/17 07/10/21 Pramipexole [Mirapex] 1 mg PO TID 02/17/21 07/10/21 Sertraline [Zoloft] 50 mg PO HS 02/17/21 07/10/21 Gabapentin [Neurontin] 300 mg PO TID PRN 04/19/21 07/10/21 Vitamin B Complex 1 cap PO DAILY 04/19/21 07/10/21 traZODone HCL [Desyrel] 100 mg PO HS 04/19/21 07/10/21 Aspirin 81 mg PO DAILY 07/09/21 07/10/21 Levothyroxine Sodium [Synthroid] 75 mcg PO DAILY@0730 07/09/21 07/10/21 amLODIPine [Norvasc] 10 mg PO DAILY 07/09/21 07/10/21 hydrALAZINE HCL [Apresoline] 100 mg PO BID 07/09/21 07/10/21 Previous Rx's Medication Instructions Recorded HYDROcodone/APAP 7.5-325MG [[place] 1 tab PO Q6HR PRN 2 Days #8 tab 02/20/21 7.5-325] Atorvastatin [Lipitor] 10 mg PO HS 30 Days #30 tab 04/23/21 hydroCHLOROthiazide [Hydrodiuril] 25 mg PO DAILY 30 Days #30 tab 04/23/21 Allergies Allergy/AdvReac Type Severity Reaction Status Date / Time enalaprilat [From Vasotec] Allergy felt weak, Verified 02/02/22 16:14 couldn't talk erythromycin base AdvReac Nausea & Verified 02/02/22 16:14 [From Erythrocin] Vomiting Review of Systems ROS Statement: Those systems with pertinent positive or pertinent negative responses have been documented in the HPI. ROS Other: All systems not noted in ROS Statement are negative. Past Medical History Past Medical History: Cancer, Diabetes Mellitus, Hyperlipidemia, Hypertension, Osteoarthritis (OA), Prostate Disorder, Thyroid Disorder Additional Past Medical History / Comment(s): skin cancer, neuropathy , restless legs History of Any Multi-Drug Resistant Organisms: None Reported Past Surgical History: Orthopedic Surgery Additional Past Surgical History / Comment(s): sinus sx. cancer removed lt ear. colonoscopy 07-07-17 anterior cervical decompression/discectomy/fusion c3-4, c4-5 Past Anesthesia/Blood Transfusion Reactions: No Reported Reaction Past Psychological History: Anxiety, Depression Smoking Status: Former smoker - Past Family History Father Additional Family Medical History / Comment(s): aortic aneurysm Mother Family Medical History: Cancer Additional Family Medical History / Comment(s): pancreas cancer General Exam General appearance: alert, in no apparent distress Head exam: Present: atraumatic, normocephalic, normal inspection Eye exam: Present: normal appearance, PERRL, EOMI. Absent: scleral icterus, conjunctival injection, periorbital swelling ENT exam: Present: normal exam, mucous membranes moist Neck exam: Present: normal inspection. Absent: tenderness, meningismus, lymphadenopathy Respiratory exam: Present: decreased breath sounds. Absent: respiratory distress, wheezes, rales, rhonchi, stridor Cardiovascular Exam: Present: regular rate, normal rhythm, normal heart sounds. Absent: systolic murmur, diastolic murmur, rubs, gallop, clicks GI/Abdominal exam: Present: soft, normal bowel sounds. Absent: distended, tenderness, guarding, rebound, rigid Extremities exam: Present: normal inspection, full ROM, normal capillary refill. Absent: tenderness, pedal edema, joint swelling, calf tenderness Back exam: Present: normal inspection Neurological exam: Present: alert, oriented X3, CN II-XII intact Psychiatric exam: Present: normal affect, normal mood Skin exam: Present: warm, dry, intact, normal color. Absent: rash Course Vital Signs 02/02/22 16:09 Temperature 98.5 F Pulse Rate 70 Respiratory 18 Rate Blood Pressure 133/59 O2 Sat by Pulse 95 Oximetry - Reevaluation(s) Reevaluation #1: 02/02/22 22:29 Medical record is reviewed Reevaluation #2: 02/02/22 22:29 Patient family at bedside informed of results Reevaluation #3: 02/02/22 22:29 Patient has no improvement here in the emergency department still feeling short of breath - Consultations Consultation #1: Spoke with sound physicians who agree for admission Medical Decision Making - Medical Decision Making 76 male the ER with multiple reasons for shortness of breath anemia blood loss CHF, as well as underlying pneumonia. - Lab Data Result diagrams: 02/02/22 16:34 02/02/22 16:34 Lab Results 02/02/22 02/02/22 02/02/22 Range/Units 16:34 16:34 16:34 WBC 8.2 (3.8-10.6) k/uL RBC 2.74 L (4.30-5.90) m/uL Hgb 8.3 L D (13.0-17.5) gm/dL Hct 25.7 L (39.0-53.0) % MCV 93.6 (80.0-100.0) fL MCH 30.3 (25.0-35.0) pg MCHC 32.4 (31.0-37.0) g/dL RDW 15.0 (11.5-15.5) % Plt Count 201 (150-450) k/uL MPV 9.4 Neutrophils % 83 % Lymphocytes % 8 % Monocytes % 5 % Eosinophils % 2 % Basophils % 0 % Neutrophils # 6.8 (1.3-7.7) k/uL Lymphocytes # 0.7 L (1.0-4.8) k/uL Monocytes # 0.4 (0-1.0) k/uL Eosinophils # 0.2 (0-0.7) k/uL Basophils # 0.0 (0-0.2) k/uL PT 9.7 (9.0-12.0) sec INR 0.9 (<1.2) APTT 26.4 (22.0-30.0) sec Sodium 136 L (137-145) mmol/L Potassium 5.1 (3.5-5.1) mmol/L Chloride 103 (98-107) mmol/L Carbon Dioxide 22 (22-30) mmol/L Anion Gap 11 mmol/L BUN 40 H (9-20) mg/dL Creatinine 1.89 H (0.66-1.25) mg/dL Est GFR (CKD-EPI)AfAm 40 (>60 ml/min/1.73 sqM) Est GFR (CKD-EPI)NonAf 34 (>60 ml/min/1.73 sqM) Glucose 130 H (74-99) mg/dL POC Glucose (mg/dL) (70-110) mg/dL POC Glu Mold Repairer ID Calcium 8.8 (8.4-10.2) mg/dL Total Bilirubin 0.4 (0.2-1.3) mg/dL AST 24 (17-59) U/L ALT 22 (4-49) U/L Alkaline Phosphatase 64 (38-126) U/L Troponin I (0.000-0.034) ng/mL NT-Pro-B Natriuret Pep pg/mL Total Protein 6.1 L (6.3-8.2) g/dL Albumin 3.5 (3.5-5.0) g/dL 02/02/22 02/02/22 02/02/22 Range/Units 16:34 16:34 22:20 WBC (3.8-10.6) k/uL RBC (4.30-5.90) m/uL Hgb (13.0-17.5) gm/dL Hct (39.0-53.0) % MCV (80.0-100.0) fL MCH (25.0-35.0) pg MCHC (31.0-37.0) g/dL RDW (11.5-15.5) % Plt Count (150-450) k/uL MPV Neutrophils % % Lymphocytes % % Monocytes % % Eosinophils % % Basophils % % Neutrophils # (1.3-7.7) k/uL Lymphocytes # (1.0-4.8) k/uL Monocytes # (0-1.0) k/uL Eosinophils # (0-0.7) k/uL Basophils # (0-0.2) k/uL PT (9.0-12.0) sec INR (<1.2) APTT (22.0-30.0) sec Sodium (137-145) mmol/L Potassium (3.5-5.1) mmol/L Chloride (98-107) mmol/L Carbon Dioxide (22-30) mmol/L Anion Gap mmol/L BUN (9-20) mg/dL Creatinine (0.66-1.25) mg/dL Est GFR (CKD-EPI)AfAm (>60 ml/min/1.73 sqM) Est GFR (CKD-EPI)NonAf (>60 ml/min/1.73 sqM) Glucose (74-99) mg/dL POC Glucose (mg/dL) 122 H (70-110) mg/dL POC Glu Mold Repairer ID Carmel Carmnoa Calcium (8.4-10.2) mg/dL Total Bilirubin (0.2-1.3) mg/dL AST (17-59) U/L ALT (4-49) U/L Alkaline Phosphatase (38-126) U/L Troponin I <0.012 (0.000-0.034) ng/mL NT-Pro-B Natriuret Pep 450 pg/mL Total Protein (6.3-8.2) g/dL Albumin (3.5-5.0) g/dL - Radiology Data Radiology results: report reviewed (Chest x-ray showing CHF versus underlying pneumonia), image reviewed Disposition Clinical Impression: Weakness, Congestive heart failure, Anemia, Pneumonia Disposition: ADMITTED IP TO THIS HOSP Condition: Good Is patient prescribed a controlled substance at d/c from ED?: No Referrals: Suresh Ellis, PAC [Primary Care Provider] - 1-2 days
[2022-02-03] MEDS: HYDROcodone/APAP 10-325MG 1 EACH TAB PO PRN ×2 (02:17→12:52)
[2022-02-03] MEDS ORDERED: PRAMIPEXOLE 1 MG TAB PO STA (05:30)
[2022-02-03] MEDS ORDERED: GABAPENTIN 300 MG CAP PO PRN (05:47)
[2022-02-03] MEDS ORDERED: NALOXONE 0.4 MG/ML 1 ML VIAL IV PRN (05:48)
[2022-02-03] MEDS ORDERED: MELATONIN 3 MG TABLET PO PRN (05:48)
[2022-02-03] MEDS ORDERED: ALPRAZolam 0.25 MG TAB PO PRN (05:48)
[2022-02-03] MEDS ORDERED: ACETAMINOPHEN TAB 325 MG TAB PO PRN (05:48)
[2022-02-03] MEDS: LEVOTHYROXINE 100 MCG TAB PO SCH (05:55)
--- NOTE | 2022-02-03 06:03 | P.HPIM ---
History of Present Illness H&P Date: 02/02/22 Chief Complaint: shortness of breath on exertion 76 year old male with RLS, CHF, DM patient comes in for evaluation of progressive exertional shortness of breath, with minimal exertion at this point, with positive orthopnea, he noted gaining 30 lb over 2 weeks. he tries to actively drink a lot of water day and night in order to stay well hydrated. he is known to have CHF , but recalls a normal left heart cath november 2021. he is not sure why he was diagnosed with CHF . he denies any alcohol consumption , illicit drugs or smoking. however, strong family history of CHF his dad of CHF. he denies any coughing , fever, or chest pain , no nausea or vomiting ,or diarr hea , no abd pain , or GI bleeding . however he does report a sore on his bottom that usually bleeds. he denies any recent travel , or history of blood clots. he reports that his breathing is ok if he is resting doing nothing, but since he gained all this weight , and swollen up, he is unable to do much without getting easily winded. in the ED he was found to have acute anemia , BOZENA on possible CKD. otherwise vital signs stable CXR showed possible scattered opacities concerning for pneumonia , however ,he again, denies any cough or fever, Review of Systems Pertinent positives as noted in HPI. All other systems were reviewed and are negative Past Medical History Past Medical History: Cancer, Diabetes Mellitus, Hyperlipidemia, Hypertension, Osteoarthritis (OA), Prostate Disorder, Thyroid Disorder Additional Past Medical History / Comment(s): skin cancer, neuropathy , restless legs History of Any Multi-Drug Resistant Organisms: None Reported Past Surgical History: Orthopedic Surgery Additional Past Surgical History / Comment(s): sinus sx. cancer removed lt ear. colonoscopy 07-07-17 anterior cervical decompression/discectomy/fusion c3-4, c4-5 Past Anesthesia/Blood Transfusion Reactions: No Reported Reaction Past Psychological History: Anxiety, Depression Smoking Status: Former smoker - Past Family History Father Additional Family Medical History / Comment(s): aortic aneurysm Mother Family Medical History: Cancer Additional Family Medical History / Comment(s): pancreas cancer Medications and Allergies Home Medications Medication Instructions Recorded Confirmed Type Finasteride [Proscar] 5 mg PO DAILY 05/17/17 02/02/22 History Insulin Detemir [Levemir Flextouch 40 units SQ HS 05/17/17 02/02/22 History Pen] allopurinoL [Zyloprim] 300 mg PO HS 05/17/17 02/02/22 History Pramipexole [Mirapex] 1 mg PO TID 02/17/21 02/02/22 History Sertraline [Zoloft] 50 mg PO BID 02/17/21 02/02/22 History Gabapentin [Neurontin] 300 mg PO TID PRN 04/19/21 02/02/22 History Vitamin B Complex 1 cap PO DAILY 04/19/21 02/02/22 History traZODone HCL [Desyrel] 100 mg PO HS 04/19/21 02/02/22 History hydroCHLOROthiazide [Hydrodiuril] 25 mg PO DAILY 30 Days #30 tab 04/23/21 02/02/22 Rx Aspirin 81 mg PO DAILY 07/09/21 02/02/22 History Amoxic-Pot Clav 875-125Mg 1 tab PO BID 02/02/22 02/02/22 History [Augmentin 875-125] Cholecalciferol [Vitamin D3 (25 25 mcg PO DAILY 02/02/22 02/02/22 History Mcg = 1000 Iu)] HYDROcodone/APAP 10-325MG [[place] 1 tab PO Q6HR PRN 02/02/22 02/02/22 History 10-325] Levothyroxine Sodium [Synthroid] 100 mcg PO DAILY 02/02/22 02/02/22 History amLODIPine [Norvasc] 5 mg PO BID 02/02/22 02/02/22 History carvediloL [Coreg] 6.25 mg PO BID 02/02/22 02/02/22 History hydrALAZINE HCL [Apresoline] 100 mg PO BID 02/02/22 02/02/22 History lisinopriL 40 mg PO DAILY 02/02/22 02/02/22 History Allergies Allergy/AdvReac Type Severity Reaction Status Date / Time enalaprilat [From Vasotec] Allergy felt weak, Verified 02/02/22 16:14 couldn't talk erythromycin base AdvReac Nausea & Verified 02/02/22 16:14 [From Erythrocin] Vomiting Physical Exam Vitals: Vital Signs Temp Pulse Resp BP Pulse Ox 08/22/22 16:09 98.5 F 70 18 133/59 95 Intake and Output 02/02/22 02/02/22 02/03/22 14:59 22:59 06:59 Other: Weight 123.377 kg ExamConstitutional: No acute distress, conversant, pleasant, anasarca Eyes: Anicteric sclerae, moist conjunctiva, Pupils equal round reactive to light ENMT: NC/AT Oropharynx clear, no erythema, or exudates Neck: Supple, no masses, or JVD No carotid bruits No thyromegaly Lungs: Clear to auscultation Clear to percussion Normal respiratory effort, no accessory muscle use Cardiovascular: Heart regular in rate and rhythm, No murmurs, gallops, or rubs +3 bilateral peripheral edema Abdominal: Soft, edematous panus and flanks Nontender, no guarding, rebound or rigidity Abdomen moving with respiration Normoactive bowel sounds No hepatomegaly, No splenomegaly No palpable mass No abdominal wall hernia noted Skin: Normal temperature, tone, texture, turgor No induration No subcutaneous nodules No rash, lesions No ulcers Extremities: No digital cyanosis No clubbing Pedal pulses intact and symmetrical Radial pulses intact and symmetrical No calf tenderness Psychiatric: Alert and oriented to person, place and time Appropriate affect fair judgement Neuro Muscles Strength 4/5 in all 4 extremities Sensation to light touch grossly present throughout Cranial nerves II-XII grossly intact No focal sensory deficits Lymphatics: no palpable cervical or supraclavicular , or inguinal lymph nodes Results CBC & Chem 7: 02/02/22 16:34 02/02/22 16:34 Labs: Abnormal Lab Results - Last 24 Hours (Table) 02/02/22 02/02/22 02/02/22 Range/Units 16:34 16:34 22:20 RBC 2.74 L (4.30-5.90) m/uL Hgb 8.3 L D (13.0-17.5) gm/dL Hct 25.7 L (39.0-53.0) % Lymphocytes # 0.7 L (1.0-4.8) k/uL Sodium 136 L (137-145) mmol/L BUN 40 H (9-20) mg/dL Creatinine 1.89 H (0.66-1.25) mg/dL Glucose 130 H (74-99) mg/dL POC Glucose (mg/dL) 122 H (70-110) mg/dL Total Protein 6.1 L (6.3-8.2) g/dL Assessment and Plan Assessment: acute on chronic diastolic CHF exacerbation IV lasix bid 40 mg fluid restriction DC IVF fluids resume cardiac meds statin, coreg , norvasc, hydralazin hold aspirin for possible GI bleed manager cardiac cath monitor vital signs check echo fall precautions rule out pneumonia follow up cultures check urine legionella ag s/p levaquin and rocephine in the ED, will hold antibiotics for now CXR showing patchy opacities patient denies coughing, fever, blood work did not show leukocytosis BOZENA on possible CKD (elevated cr since beginning of the year) avoid nephrotoxic meds monitor renal function and urine output IV diuresis due to chf exacerbation with anasarca and fluid retention RLS resume mirapex DM , insulin sliding scale continue levemir acute anemia rule out GI bleeding FOBT PPI hold blood thinners and ASA DVT PPX mechanical full code
--- NOTE | 2022-02-03 06:39 | XR ---
EXAMINATION TYPE: XR chest 2V DATE OF EXAM: 02/03/2022 COMPARISON: Chest x-ray from yesterday and older studies. HISTORY: Pneumonia. TECHNIQUE: Frontal and lateral views of the chest are obtained. FINDINGS: Increased markings bilaterally redemonstrated. There is no pleural effusion or pneumothora x seen bilaterally. The cardiac silhouette size is mildly enlarged. The osseous structures are int act. IMPRESSION: Areas of acute infiltrate bilateral lower lungs and peripheral right mid lung thought pr esent on background chronic changes. No significant change from one day earlier.
[2022-02-03 07:24] LABS: Glucose,Whole Blood 102 mg/dL (70-110)
[2022-02-03] MEDS: INSULIN ASPART (NovoLOG) 100 UNIT/ML VIAL SQ SCH ×4 (07:28→21:04)
[2022-02-03] MEDS: amLODIPine 5 MG TAB PO SCH ×2 (08:17→21:05)
[2022-02-03] MEDS: FINASTERIDE 5 MG TAB PO SCH (08:17)
[2022-02-03] MEDS: hydrALAZINE HCL 50 MG TAB PO SCH ×2 (08:17→21:05)
[2022-02-03] MEDS: FUROSEMIDE 10 MG/ML 4 ML VIAL IV SCH ×2 (08:17→21:05)
[2022-02-03] MEDS: carvediloL 6.25 MG TAB PO SCH ×2 (08:17→21:05)
[2022-02-03] MEDS: SERTRALINE 50 MG TAB PO SCH ×2 (08:17→21:05)
[2022-02-03] MEDS: PANTOPRAZOLE 40 MG TABLET PO SCH ×2 (08:17→17:51)
[2022-02-03] MEDS ORDERED: ASPIRIN 81 MG PO SCH (09:00)
[2022-02-03 10:25] LABS: Basophils # (A) 0.02 X 10*3/uL (0.00-0.10); Basophils % (A) 0.2 %; Eosinophils # (A) 0.18 X 10*3/uL (0.04-0.35); Eosinophils % (A) 2.2 %; HGB 7.7 g/dL (13.0-17.0); Immature Grans, Automated 0.6 %; Lymphocytes # (A) 0.86 X 10*3/uL (0.90-5.00); Lymphocytes % (A) 10.7 %; MCH 29.7 pg (27.0-32.0); MCHC 32.1 g/dL (32.0-37.0); MCV 92.7 fL (80.0-97.0); Mean Platelet Volume 11.7 fL (9.5-12.2); Monocytes # (A) 0.77 X 10*3/uL (0.20-1.00); Monocytes % (A) 9.6 %; NRBC Per 100 WBC 0 /100 WBCS (0.0-0.0); Neutrophils # (A) 6.17 X 10*3/uL (1.80-7.70); Neutrophils % (A) 76.7 %; Platelet Count 190 X 10*3/uL (140-440); RBC 2.59 X 10*6/uL (4.40-5.60); RDW 14.8 % (11.5-14.5); WBC 8.05 X 10*3/uL (4.50-10.00)
--- NOTE | 2022-02-03 10:35 | CA ---
Transthoracic Echo Report Name: Peyman Carter Age: 76 Gender: M : 1945 Exam Date: 02/03/2022 08:25 Exam Location: [facility] Echo Ht (in): 69 Wt (lb): 272 Ordering Physician: Juan Manuel Reich DO Attending/Referring Phys: [id number], Rachana Supervisor [employer] Sita Wilde, JERSON Procedure CPT: Indications: chf Cardiac Hx: Technical Quality: Fair Contrast 1: Total Dose (mL): Contrast 2: Total Dose (mL): MEASUREMENTS (Male / Female) Normal Values 2D ECHO LV Diastolic Diameter PLAX 5.5 cm 4.2 - 5.9 / 3.9 - 5.3 cm LV Systolic Diameter PLAX 2.6 cm IVS Diastolic Thickness 1.4 cm 0.6 - 1.0 / 0.6 - 0.9 cm LVPW Diastolic Thickness 1.5 cm 0.6 - 1.0 / 0.6 - 0.9 cm LV Relative Wall Thickness 0.5 RV Internal Dim ED PLAX 3.3 cm LA Systolic Diameter LX 4.7 cm 3.0 - 4.0 / 2.7 - 3.8 cm LA Volume 74.6 cm??? 18 - 58 / 22 - 52 cm??? M-MODE Aortic Root Diameter MM 3.6 cm MV E Point Septal Separation 0.3 cm AV Cusp Separation MM 2.2 cm DOPPLER AV Peak Velocity 165.5 cm/s AV Peak Gradient 11.0 mmHg MV Area PHT 2.8 cm??? Mitral E Point Velocity 126.4 cm/s Mitral A Point Velocity 113.2 cm/s Mitral E to A Ratio 1.1 MV Deceleration Time 267.8 ms MV E' Velocity 9.3 cm/s Mitral E to MV E' Ratio 13.6 FINDINGS Left Ventricle Left ventricular ejection fraction is estimated at 55-60 %. Left ventricular cavity size normal. Moderate concentric left ventricular hypertrophy. Right Ventricle Mild right ventricular dilatation. No TR unable to estimate the right ventricular systolic pressure. Right Atrium Normal right atrial size. Left Atrium Mildly increased left atrial diameter. Moderately increased left atrial volume. Mildly increased left atrial area. No evidence for an atrial septal defect. Mitral Valve Mitral annular calcification. No mitral stenosis, or prolapse. Mild mitral regurgitation Aortic Valve Trileaflet aortic valve. No aortic valve stenosis or regurgitation. Tricuspid Valve Structurally normal tricuspid valve. Mild tricuspid regurgitation Pulmonic Valve Not well visualized Pericardium Normal pericardium. No pericardial effusion. Aorta Normal size aortic root and proximal ascending aorta. CONCLUSIONS 1. Normal left ventricle size and systolic function 2. Mild mitral and tricuspid regurgitation 3. Technically difficult study Previewed by: Dr. Ry Wheeler MD (Electronically Signed) Final Date: 03 February 2022 10:34
[2022-02-03 11:00] LABS: % Iron Saturation 12.94 (15.00-50.00); Albumin 3.6 g/dL (3.8-4.9); Albumin/Globulin Ratio 1.64 (1.60-3.17); Anion Gap 9.8 mmol/L (10.00-18.00); BUN/Creat Ratio 20.67 Ratio (12.00-20.00); Blood Urea Nitrogen 37.2 mg/dL (9.0-27.0); Calcium 8.8 mg/dL (8.7-10.3); Carbon Dioxide 23.2 mmol/L (20.0-27.5); Globulin 2.2 g/dL (1.6-3.3); Non-African American GFR(CKD) 36.3 (60.0-200.0); Potassium 4.9 mmol/L (3.5-5.5); Total Bilirubin 0.2 mg/dL (0.30-1.20); Total Protein 5.8 g/dL (6.2-8.2)
--- NOTE | 2022-02-03 11:47 | P.CONS ---
History of Present Illness - Reason for Consult Consult date: 02/03/22 GI bleed Requesting physician: Juan Manuel Reich - Chief Complaint Shortness of breath, lower extremity swelling and weakness - History of Present Illness This is a very pleasant 76-year-old white male who presented to the emergency department sent in from his PCP for concerns of increased swelling, shortness of breath and weakness. Patient has a past medical history including skin cancer, diabetes mellitus, hyperlipidemia, hypertension, thyroid disorder, prostate disorder as well as congestive heart failure. Patient states he's had increased swelling, dyspnea with exertion, and approximately 30 pound weight gain over the last 1 month's duration. He recently went to see his PCP who told him to come into the emergency department yesterday. Patient was admitted with acute kidney injury on possible chronic kidney disease, acute on chronic CHF exacerbation, possible pneumonia, and anemia. Patient denies any history of GI bleed, no recent signs or symptoms of GI bleed. States that he has some sores near the rectum that will occasionally bleed but this is not a regular basis. He denies any anticoagulation, he is on low-dose baby aspirin. Denies any blood in his stool or black stool. Denies abdominal pain, history of peptic ulcer disease, or acid reflux. On admission patient was noted to be anemic and gastroenterology was consulted for possible GI bleed. He is unsure of his last colonoscopy, states it's been several years and he believes he would be due. States that his last colonoscopy he remembers that he had one small polyp home with polypectomy, unsure where he had it done or who did the colonoscopy. Admitting hemoglobin 8.3. Today's labs: WBC 8.0 hemoglobin 7.7 platelet count 190,000 and are 0.9 sodium 145 potassium 4.9 BUN 37 creatinine 1.8 iron 38 TIBC 290 saturation 12.9 ferritin 145 Review of Systems REVIEW OF SYSTEMS: CARDIOPULMONARY: No chest pain, shortness of breath and shortness of breath with exertion. Increase wound to abdomen and lower extremities. Patient reports 30 pound weight gain over last one month duration. Gastrointestinal: No abdominal pain. No nausea or vomiting. No hematemesis, coffee-ground emesis. No rectal bleeding, or melena. GENITOURINARY: No dysuria or hematuria. MUSCULOSKELETAL: Reports normal range of motion., Joint pain. SKIN: No rashes. No jaundice. ENDOCRINE: No chills, fevers. He pound weight gain over last 1 month duration.. No polydipsia or polyuria. PSYCHIATRIC: Unremarkable. NEUROLOGY: No change in mental status. Denies dizziness, headache. ENT: Vision unremarkable. CONSTITUTIONAL: No recent weight loss. No fever, chills, night sweats. Weakness, fatigue. Past Medical History Past Medical History: Cancer, Diabetes Mellitus, Hyperlipidemia, Hypertension, Osteoarthritis (OA), Prostate Disorder, Thyroid Disorder Additional Past Medical History / Comment(s): skin cancer, neuropathy , restless legs History of Any Multi-Drug Resistant Organisms: None Reported Past Surgical History: Orthopedic Surgery Additional Past Surgical History / Comment(s): sinus sx. cancer removed lt ear. colonoscopy 07-07-17 anterior cervical decompression/discectomy/fusion c3-4, c4-5 Past Anesthesia/Blood Transfusion Reactions: No Reported Reaction Past Psychological History: Anxiety, Depression Smoking Status: Former smoker - Past Family History Father Additional Family Medical History / Comment(s): aortic aneurysm Mother Family Medical History: Cancer Additional Family Medical History / Comment(s): pancreas cancer Medications and Allergies Home Medications Medication Instructions Recorded Confirmed Type Finasteride [Proscar] 5 mg PO DAILY 05/17/17 02/02/22 History Insulin Detemir [Levemir Flextouch 40 units SQ HS 05/17/17 02/02/22 History Pen] allopurinoL [Zyloprim] 300 mg PO HS 05/17/17 02/02/22 History Pramipexole [Mirapex] 1 mg PO TID 02/17/21 02/02/22 History Sertraline [Zoloft] 50 mg PO BID 02/17/21 02/02/22 History Gabapentin [Neurontin] 300 mg PO TID PRN 04/19/21 02/02/22 History Vitamin B Complex 1 cap PO DAILY 04/19/21 02/02/22 History traZODone HCL [Desyrel] 100 mg PO HS 04/19/21 02/02/22 History hydroCHLOROthiazide [Hydrodiuril] 25 mg PO DAILY 30 Days #30 tab 04/23/21 02/02/22 Rx Aspirin 81 mg PO DAILY 07/09/21 02/02/22 History Amoxic-Pot Clav 875-125Mg 1 tab PO BID 02/02/22 02/02/22 History [Augmentin 875-125] Cholecalciferol [Vitamin D3 (25 25 mcg PO DAILY 02/02/22 02/02/22 History Mcg = 1000 Iu)] HYDROcodone/APAP 10-325MG [[place] 1 tab PO Q6HR PRN 02/02/22 02/02/22 History 10-325] Levothyroxine Sodium [Synthroid] 100 mcg PO DAILY 02/02/22 02/02/22 History amLODIPine [Norvasc] 5 mg PO BID 02/02/22 02/02/22 History carvediloL [Coreg] 6.25 mg PO BID 02/02/22 02/02/22 History hydrALAZINE HCL [Apresoline] 100 mg PO BID 02/02/22 02/02/22 History lisinopriL 40 mg PO DAILY 02/02/22 02/02/22 History Allergies Allergy/AdvReac Type Severity Reaction Status Date / Time enalaprilat [From Vasotec] Allergy felt weak, Verified 02/02/22 16:14 couldn't talk erythromycin base AdvReac Nausea & Verified 02/02/22 16:14 [From Erythrocin] Vomiting Physical Exam Vitals: Vital Signs Temp Pulse Pulse Resp BP BP Pulse Ox 02/03/22 02:21 98.0 F 74 19 135/65 93 L 02/03/22 00:51 76 02/03/22 00:41 97.9 F 76 18 175/72 93 L 02/02/22 23:22 72 16 155/80 95 02/02/22 16:09 98.5 F 70 18 133/59 95 Intake and Output 02/02/22 02/03/22 02/03/22 22:59 06:59 14:59 Intake Total 500 Balance 500 Intake: Oral 500 Other: Voiding Method Bedside Commode Urinal # Voids 4 # Bowel Movements 0 Weight 123.377 kg 123.377 kg General appearance: The patient is alert, oriented, appears in no acute distress. HET: Head is normocephalic and atraumatic. Conjunctiva pink. Sclera anicteric. Neck: Supple without lymphadenopathy. Trachea midline. Heart: S1 S2. Regular rate and rhythm. Lungs: Clear to auscultation. Abdomen: Soft, nontender, anasarca, nondistended with bowel sounds. No guarding or rigidity. Skin: No rashes. No jaundice. Extremities: Normal skin color and turgor. +2 pitting edema lower extremities bilateral. Neurological: No focal deficits. Alert and oriented x3. Results CBC & Chem 7: 02/03/22 07:14 02/03/22 07:28 Labs: Abnormal Lab Results - Last 24 Hours (Table) 02/02/22 02/02/22 02/02/22 Range/Units 16:34 16:34 22:20 RBC 2.74 L (4.30-5.90) m/uL Hgb 8.3 L D (13.0-17.5) gm/dL Hct 25.7 L (39.0-53.0) % Lymphocytes # 0.7 L (1.0-4.8) k/uL Sodium 136 L (137-145) mmol/L BUN 40 H (9-20) mg/dL Creatinine 1.89 H (0.66-1.25) mg/dL Glucose 130 H (74-99) mg/dL POC Glucose (mg/dL) 122 H (70-110) mg/dL Total Protein 6.1 L (6.3-8.2) g/dL Comments: Echocardiogram EF 55-60%. Mild mitral and tricuspid regurgitation. Technically difficult study. Chest x-ray reports areas of acute infiltrate bilateral lower lungs and peripheral right midlung present on background, chronic changes. No significant change from day earlier. Assessment and Plan (1) Normocytic normochromic anemia Narrative/Plan: 76-year-old male with multiple comorbidities presented to the emergency department directed by his PCP for increased swelling, shortness of breath and weight gain of 30 pounds over last 1 month duration. Patient was known to be anemic on presentation to the emergency department gastroenterology was consulted for possible GI bleed. Patient denies any signs or symptoms of GI bleed. Denies any black stool, blood in his stool states he does have some sores near his rectum and Bleed occasionally bite down on a regular basis. Denies previous history of GI bleed not on any anticoagulation denies abdominal pain or peptic ulcer disease. Last colonoscopy many years ago significant for colon polyp with polypectomy. Unclear at this time of etiology of chronic anemia, his iron studies are consistent with an iron deficiency anemia, possible etiology includes anemia of chronic disease in light of patient has no overt signs or symptoms of GI bleed. at this time we'll hold off on endoscopic evaluation well patient being treated for pneumonia and acute exacerbation of congestive heart failure. We'll continue to monitor CBC, transfuse as needed. Patient is due for colonoscopy this certainly can be done in outpatient setting. Current Visit: Yes Status: Acute Code(s): D64.9 - ANEMIA, UNSPECIFIED SNOMED Code(s): 69568137 (2) Edema Current Visit: Yes Status: Acute Code(s): R60.9 - EDEMA, UNSPECIFIED SNOMED Code(s): 288066820 (3) Diabetes mellitus Current Visit: Yes Status: Acute Code(s): E11.9 - TYPE 2 DIABETES MELLITUS WITHOUT COMPLICATIONS SNOMED Code(s): 38998776 (4) Congestive heart failure Current Visit: Yes Status: Acute Code(s): I50.9 - HEART FAILURE, UNSPECIFIED SNOMED Code(s): 46929960 (5) Weakness Current Visit: Yes Status: Acute Code(s): R53.1 - WEAKNESS SNOMED Code(s): 27594581 Plan: 1. Continue symptomatic and supportive care 2. Continue with medical management 3. Daily CBC, transfuse for hemoglobin less than 7 4. Iron studies were ordered 5. No plans at this time for endoscopic evaluation, we'll continue to monitor on a daily basis. This can certainly be done as an outpatient as patient does not have any for signs of GI blood loss. 6. Protonix 40 mg daily for GI prophylaxis 7. IV iron 2 doses Thank you for this consultation, we will continue to follow. Dr. Keagan Clemons I agree with the dictator's note, documented as a scribe by Adilene Tang.
[2022-02-03 12:08] LABS: Glucose,Whole Blood 141 mg/dL (70-110)
[2022-02-03] MEDS: PRAMIPEXOLE 1 MG TAB PO SCH ×3 (12:20→21:05)
--- NOTE | 2022-02-03 14:00 | P.PN ---
Subjective Progress Note Date: 02/03/22 Principal diagnosis: sob Patient feeling about the same compared to when he came in. He is still having shortness of breath especially with ambulation. He had some pleuritic chest pain today with deep breathing. No fevers or chills. No nausea or vomiting. Objective - Vital Signs Vital signs: Vital Signs Temp 98.3 F 02/03/22 08:00 Pulse 77 02/03/22 08:00 Resp 16 02/03/22 08:00 BP 171/68 02/03/22 08:00 Pulse Ox 95 02/03/22 11:37 FiO2 Intake & Output 02/02/22 02/03/22 02/03/22 18:59 06:59 18:59 Intake Total 500 Balance 500 Weight 123.377 kg 123.377 kg Intake: Oral 500 Other: Voiding Method Bedside Commode Urinal # Voids 4 # Bowel Movements 0 - Exam Constitutional: No acute distress, conversant, pleasant Eyes:Anicteric sclerae, moist conjunctiva, no lid-lag, PERRLA, ENMT: Oropharynx clear, no erythema, exudates Neck: Supple, FROM, no masses, or JVD, No carotid bruits, No thyromegaly Lungs: Clear to auscultation, Clear to percussion, Normal respiratory effort, no accessory muscle use Cardiovascular: Heart regular in rate and rhythm, No murmurs, gallops, or rubs, 1+ peripheral edema Abdominal: Soft, Nontender, no guarding, rebound or rigidity, Normoactive bowel sounds, No hepatomegaly, No splenomegaly, No palpable mass Skin: Normal temperature, tone, texture, turgor, no induration, No subcutaneous nodules, No rash, lesions, No ulcers Extremities: No digital cyanosis, No clubbing, Pedal pulses intact and symmetrical, Radial pulses intact and symmetrical, No calf tenderness Psychiatric: Alert and oriented to person, place and time, appropriate affect, intact judgement Neuro: Muscles Strength 5/5 in all 4 extremities, Sensation to light touch grossly present throughout, Cranial nerves II-XII grossly intact, no focal sensory deficits - Labs CBC & Chem 7: 02/03/22 07:14 02/03/22 07:28 Labs: Abnormal Lab Results - Last 24 Hours (Table) 02/02/22 02/02/22 02/02/22 Range/Units 16:34 16:34 22:20 RBC 2.74 L (4.30-5.90) m/uL Hgb 8.3 L D (13.0-17.5) gm/dL Hct 25.7 L (39.0-53.0) % RDW (11.5-14.5) % Immature Gran # (0.00-0.04) X 10*3/uL Lymphocytes # 0.7 L (1.0-4.8) k/uL Sodium 136 L (137-145) mmol/L Chloride (96-109) mmol/L Anion Gap (10.00-18.00) mmol/L BUN 40 H (9-20) mg/dL Creatinine 1.89 H (0.66-1.25) mg/dL Est GFR (CKD-EPI)AfAm (60.0-200.0) Est GFR (CKD-EPI)NonAf (60.0-200.0) BUN/Creatinine Ratio (12.00-20.00) Ratio Glucose 130 H (74-99) mg/dL POC Glucose (mg/dL) 122 H (70-110) mg/dL Iron (65-175) ug/dL % Saturation (15.00-50.00) Total Bilirubin (0.30-1.20) mg/dL Total Protein 6.1 L (6.3-8.2) g/dL Albumin (3.8-4.9) g/dL 02/03/22 02/03/22 02/03/22 Range/Units 07:14 07:28 12:06 RBC 2.59 L (4.30-5.90) m/uL Hgb 7.7 L (13.0-17.5) gm/dL Hct 24.0 L (39.0-53.0) % RDW 14.8 H (11.5-14.5) % Immature Gran # 0.05 H (0.00-0.04) X 10*3/uL Lymphocytes # 0.86 L (1.0-4.8) k/uL Sodium (137-145) mmol/L Chloride 112 H (96-109) mmol/L Anion Gap 9.80 L (10.00-18.00) mmol/L BUN 37.2 H (9-20) mg/dL Creatinine 1.8 H (0.66-1.25) mg/dL Est GFR (CKD-EPI)AfAm 42.0 L (60.0-200.0) Est GFR (CKD-EPI)NonAf 36.3 L (60.0-200.0) BUN/Creatinine Ratio 20.67 H (12.00-20.00) Ratio Glucose (74-99) mg/dL POC Glucose (mg/dL) 141 H (70-110) mg/dL Iron 38 L (65-175) ug/dL % Saturation 12.94 L (15.00-50.00) Total Bilirubin 0.20 L (0.30-1.20) mg/dL Total Protein 5.8 L (6.3-8.2) g/dL Albumin 3.6 L (3.8-4.9) g/dL Assessment and Plan Plan: Acute on chronic diastolic CHF exacerbation IV lasix bid 40 mg fluid restriction resume cardiac meds statin, coreg , norvasc, hydralazin nurse monitoring monitor vital signs Echo showing moderate concentric LVH with normal EF fall precautions rule out pneumonia follow up cultures check urine legionella ag, check procal s/p levaquin and rocephine in the ED, will hold antibiotics for now CXR showing patchy opacities patient denies coughing, fever, blood work did not show leukocytosis BOZENA on possible CKD, likely due to cardiorenal syndrome (elevated cr since beginning of the year) avoid nephrotoxic meds monitor renal function and urine output IV diuresis due to chf exacerbation with anasarca and fluid retention RLS resume mirapex DM 2 , insulin sliding scale continue levemir acute anemia, likely due to iron deficiency, rule out GI bleeding FOBT PPI hold blood thinners and ASA GI consulted no need for inpateint scopes can be outpatient, will need colonoscopy IV iron, then oral. DVT PPX mechanical full code
[2022-02-03] MEDS: SODIUM FERRIC GLUCONAT-SUCROSE 125 MG in SODIUM CHLORIDE 0.9% 100 ML IVPB SCH (14:51)
[2022-02-03] MEDS: NYSTATIN 100,000 UNIT/GM POWD 15 GM TOPICAL SCH ×2 (14:51→21:06)
[2022-02-03 16:53] LABS: Glucose,Whole Blood 163 mg/dL (70-110)
[2022-02-03 20:53] LABS: Glucose,Whole Blood 132 mg/dL (70-110)
[2022-02-03] MEDS: ONDANSETRON 4 MG/2 ML VIAL IVP PRN (21:05)
[2022-02-03] MEDS: traZODone HCL 100 MG TAB PO SCH (21:05)
[2022-02-03] MEDS: INSULIN DETEMIR (LEVEMIR) 100 UNIT/ML SYR SQ SCH (21:06)
[2022-02-03] MEDS ORDERED: LEVOFLOXACIN 500MG-D5W PMX 500 MG in DEXTROSE/WATER 1 100ML.BAG IVPB SCH (23:00)
[2022-02-03] MEDS: LEVOFLOXACIN 250MG-D5W PMX 250 MG in DEXTROSE/WATER 1 50ML.BAG IVPB SCH (23:43)
[2022-02-04] MEDS: HYDROcodone/APAP 10-325MG 1 EACH TAB PO PRN ×3 (04:43→22:24)
[2022-02-04] MEDS: LEVOTHYROXINE 100 MCG TAB PO SCH (04:44)
[2022-02-04 07:34] LABS: Glucose,Whole Blood 104 mg/dL (70-110)
[2022-02-04] MEDS: INSULIN ASPART (NovoLOG) 100 UNIT/ML VIAL SQ SCH ×4 (07:38→22:22)
[2022-02-04] MEDS: PRAMIPEXOLE 1 MG TAB PO SCH ×3 (08:43→22:22)
[2022-02-04] MEDS: hydrALAZINE HCL 50 MG TAB PO SCH ×2 (08:43→22:22)
[2022-02-04] MEDS: SERTRALINE 50 MG TAB PO SCH ×2 (08:44→22:21)
[2022-02-04] MEDS: carvediloL 6.25 MG TAB PO SCH ×2 (08:44→22:22)
[2022-02-04] MEDS: PANTOPRAZOLE 40 MG TABLET PO SCH ×2 (08:44→16:56)
[2022-02-04] MEDS: FINASTERIDE 5 MG TAB PO SCH (08:44)
[2022-02-04] MEDS: amLODIPine 5 MG TAB PO SCH ×2 (08:44→22:22)
[2022-02-04] MEDS: SODIUM FERRIC GLUCONAT-SUCROSE 125 MG in SODIUM CHLORIDE 0.9% 100 ML IVPB SCH (09:18)
[2022-02-04] MEDS: NYSTATIN 100,000 UNIT/GM POWD 15 GM TOPICAL SCH ×2 (09:18→22:23)
[2022-02-04] MEDS: FUROSEMIDE 10 MG/ML 4 ML VIAL IV SCH (10:38)
[2022-02-04 11:40] LABS: Glucose,Whole Blood 160 mg/dL (70-110)
[2022-02-04 12:34] LABS: HCT 26.1 % (39.0-53.0); HGB 8.6 gm/dL (13.0-17.5); MCH 31.1 pg (25.0-35.0); MCHC 32.8 g/dL (31.0-37.0); MCV 94.7 fL (80.0-100.0); Mean Platelet Volume 8.9; Platelet Count 214 k/uL (150-450); RBC 2.76 m/uL (4.30-5.90)
[2022-02-04 12:49] LABS: African American GFR (CKD) 37 (>60 ml/min/1.73 sqM); Anion Gap 12 mmol/L; Blood Urea Nitrogen 35 mg/dL (9-20); Calcium 9.2 mg/dL (8.4-10.2); Carbon Dioxide 26 mmol/L (22-30); Chloride 101 mmol/L (98-107); Glucose 128 mg/dL (74-99); Non-African American GFR(CKD) 32 (>60 ml/min/1.73 sqM); Potassium 4.3 mmol/L (3.5-5.1); Sodium 139 mmol/L (137-145)
--- NOTE | 2022-02-04 14:06 | P.PN ---
Subjective Progress Note Date: 02/04/22 Principal diagnosis: sob He is still feeling the same. [place] a little better when he tried to move. Still with sob and leg swelling. No fevers or chills. No cough. Objective - Vital Signs Vital signs: Vital Signs Temp 98.0 F 02/04/22 08:00 Pulse 64 02/04/22 08:00 Resp 16 02/04/22 08:00 BP 160/56 02/04/22 08:00 Pulse Ox 97 02/04/22 08:00 FiO2 Intake & Output 02/03/22 02/04/22 02/04/22 18:59 06:59 18:59 Intake Total 600 300 Balance 600 300 Intake: Intake, IV Titration 100 Amount Sodium Ferric Gluconat- 100 Sucrose 125 mg In Sodium Chloride 0.9% 100 ml @ 100 mls/hr IVPB DAILY [facility] Rx#:[id number] Oral 500 300 Other: Voiding Method Bedside Commode # Voids 5 20 # Bowel Movements 2 0 - Exam Constitutional: No acute distress, conversant, pleasant Eyes:Anicteric sclerae, moist conjunctiva, no lid-lag, PERRLA, ENMT: Oropharynx clear, no erythema, exudates Neck: Supple, FROM, no masses, or JVD, No carotid bruits, No thyromegaly Lungs: Clear to auscultation, Clear to percussion, Normal respiratory effort, no accessory muscle use Cardiovascular: Heart regular in rate and rhythm, No murmurs, gallops, or rubs, 1+ peripheral edema Abdominal: Soft, Nontender, no guarding, rebound or rigidity, Normoactive bowel sounds, No hepatomegaly, No splenomegaly, No palpable mass Skin: Normal temperature, tone, texture, turgor, no induration, No subcutaneous nodules, No rash, lesions, No ulcers Extremities: No digital cyanosis, No clubbing, Pedal pulses intact and symmetrical, Radial pulses intact and symmetrical, No calf tenderness Psychiatric: Alert and oriented to person, place and time, appropriate affect, intact judgement Neuro: Muscles Strength 5/5 in all 4 extremities, Sensation to light touch grossly present throughout, Cranial nerves II-XII grossly intact, no focal sensory deficits - Labs CBC & Chem 7: 02/04/22 11:31 02/04/22 11:31 Labs: Abnormal Lab Results - Last 24 Hours (Table) 02/03/22 02/03/22 02/04/22 Range/Units 16:51 20:52 11:31 RBC 2.76 L (4.30-5.90) m/uL Hgb 8.6 L (13.0-17.5) gm/dL Hct 26.1 L (39.0-53.0) % BUN (9-20) mg/dL Creatinine (0.66-1.25) mg/dL Glucose (74-99) mg/dL POC Glucose (mg/dL) 163 H 132 H (70-110) mg/dL 02/04/22 02/04/22 Range/Units 11:31 11:38 RBC (4.30-5.90) m/uL Hgb (13.0-17.5) gm/dL Hct (39.0-53.0) % BUN 35 H (9-20) mg/dL Creatinine 2.01 H (0.66-1.25) mg/dL Glucose 128 H (74-99) mg/dL POC Glucose (mg/dL) 160 H (70-110) mg/dL Microbiology - Last 24 Hours (Table) 02/02/22 22:50 Blood Culture - Preliminary Blood No Growth after 24 hours 02/02/22 22:50 Blood Culture - Preliminary Blood No Growth after 24 hours Assessment and Plan Plan: Sob likely sec to acute on chronic diastolic CHF exacerbation and anemia Pneumonia ruled out. 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 RLS resume mirapex DM 2 , insulin sliding scale continue levemir DVT PPX mechanical full code
--- NOTE | 2022-02-04 14:36 | P.PN ---
Subjective Progress Note Date: 02/04/22 Principal diagnosis: Anemia This is a very pleasant 76-year-old white male who presented to the emergency department sent in from his PCP for concerns of increased swelling, shortness of breath and weakness. Patient has a past medical history including skin cancer, diabetes mellitus, hyperlipidemia, hypertension, thyroid disorder, prostate disorder as well as congestive heart failure. Patient states he's had increased swelling, dyspnea with exertion, and approximately 30 pound weight gain over the last 1 month's duration. He recently went to see his PCP who told him to come into the emergency department yesterday. Patient was admitted with acute kidney injury on possible chronic kidney disease, acute on chronic CHF exacerbation, possible pneumonia, and anemia. Patient denies any history of GI bleed, no recent signs or symptoms of GI bleed. States that he has some sores near the rectum that will occasionally bleed but this is not a regular basis. He denies any anticoagulation, he is on low-dose baby aspirin. Denies any blood in his stool or black stool. Denies abdominal pain, history of peptic ulcer disease, or acid reflux. On admission patient was noted to be anemic and gastroenterology was consulted for possible GI bleed. He is unsure of his last colonoscopy, states it's been several years and he believes he would be due. States that his last colonoscopy he remembers that he had one small polyp home with polypectomy, unsure where he had it done or who did the colonoscopy. Admitting hemoglobin 8.3. 02/04/2022: Patient seen and examined today as a follow-up for anemia. Patient continues to deny any overt signs of GI blood loss. Denies any blood in his stool or black stool. Denies abdominal pain, nausea or vomiting. States he is still set having shortness of breath and discomfort in his legs due to swelling. He also had a poor night sleep due to restless leg syndrome. Hemoglobin actually improved and is at 8.6. He is receiving IV iron 2. No acute changes through the night. He remains on 2 L nasal cannula, oxygen saturation 97% Objective - Vital Signs Vital signs: Vital Signs Temp 97.4 F L 02/04/22 02:00 Pulse 89 02/04/22 02:00 Resp 16 02/04/22 02:00 BP 155/61 02/04/22 02:00 Pulse Ox 96 02/04/22 02:00 FiO2 Intake & Output 02/03/22 02/04/22 02/04/22 18:59 06:59 18:59 Intake Total 600 300 Balance 600 300 Intake: Intake, IV Titration 100 Amount Sodium Ferric Gluconat- 100 Sucrose 125 mg In Sodium Chloride 0.9% 100 ml @ 100 mls/hr IVPB DAILY [facility] Rx#:[id number] Oral 500 300 Other: Voiding Method Bedside Commode # Voids 5 20 # Bowel Movements 2 0 - Exam General appearance: The patient is alert, oriented, appears in no acute distress. HET: Head is normocephalic and atraumatic. Conjunctiva pink. Sclera anicteric. Neck: Supple without lymphadenopathy. Abdomen: Soft, obese, nontender, nondistended with bowel sounds. No guarding or rigidity. Extremities: Normal skin color and turgor. Bilateral lower extremity edema. Skin: No rashes, no jaundice Neurological: No focal deficits. Alert and oriented -3. - Labs CBC & Chem 7: 02/04/22 11:31 02/04/22 11:31 Labs: Abnormal Lab Results - Last 24 Hours (Table) 02/03/22 02/03/22 02/03/22 Range/Units 07:14 07:28 12:06 RBC 2.59 L (4.40-5.60) X 10*6/uL Hgb 7.7 L (13.0-17.0) g/dL Hct 24.0 L (39.6-50.0) % RDW 14.8 H (11.5-14.5) % Immature Gran # 0.05 H (0.00-0.04) X 10*3/uL Lymphocytes # 0.86 L (0.90-5.00) X 10*3/uL Chloride 112 H (96-109) mmol/L Anion Gap 9.80 L (10.00-18.00) mmol/L BUN 37.2 H (9.0-27.0) mg/dL Creatinine 1.8 H (0.6-1.5) mg/dL Est GFR (CKD-EPI)AfAm 42.0 L (60.0-200.0) Est GFR (CKD-EPI)NonAf 36.3 L (60.0-200.0) BUN/Creatinine Ratio 20.67 H (12.00-20.00) Ratio POC Glucose (mg/dL) 141 H (70-110) mg/dL Iron 38 L (65-175) ug/dL % Saturation 12.94 L (15.00-50.00) Total Bilirubin 0.20 L (0.30-1.20) mg/dL Total Protein 5.8 L (6.2-8.2) g/dL Albumin 3.6 L (3.8-4.9) g/dL 02/03/22 02/03/22 Range/Units 16:51 20:52 RBC (4.40-5.60) X 10*6/uL Hgb (13.0-17.0) g/dL Hct (39.6-50.0) % RDW (11.5-14.5) % Immature Gran # (0.00-0.04) X 10*3/uL Lymphocytes # (0.90-5.00) X 10*3/uL Chloride (96-109) mmol/L Anion Gap (10.00-18.00) mmol/L BUN (9.0-27.0) mg/dL Creatinine (0.6-1.5) mg/dL Est GFR (CKD-EPI)AfAm (60.0-200.0) Est GFR (CKD-EPI)NonAf (60.0-200.0) BUN/Creatinine Ratio (12.00-20.00) Ratio POC Glucose (mg/dL) 163 H 132 H (70-110) mg/dL Iron (65-175) ug/dL % Saturation (15.00-50.00) Total Bilirubin (0.30-1.20) mg/dL Total Protein (6.2-8.2) g/dL Albumin (3.8-4.9) g/dL Microbiology - Last 24 Hours (Table) 02/02/22 22:50 Blood Culture - Preliminary Blood No Growth after 24 hours 02/02/22 22:50 Blood Culture - Preliminary Blood No Growth after 24 hours Assessment and Plan (1) Normocytic normochromic anemia Narrative/Plan: 76-year-old male with multiple comorbidities presented to the emergency department directed by his PCP for increased swelling, shortness of breath and weight gain of 30 pounds over last 1 month duration. Patient was known to be anemic on presentation to the emergency department gastroenterology was consulted for possible GI bleed. Patient denies any signs or symptoms of GI bleed. Denies any black stool, blood in his stool states he does have some sores near his rectum and Bleed occasionally bite down on a regular basis. Denies previous history of GI bleed not on any anticoagulation denies abdominal pain or peptic ulcer disease. Last colonoscopy many years ago significant for colon polyp with polypectomy. Unclear at this time of etiology of chronic anemia, his iron studies are consistent with an iron deficiency anemia, possible etiology includes anemia of chronic disease in light of patient has no overt signs or symptoms of GI bleed. at this time we'll hold off on endoscopic evaluation well patient being treated for pneumonia and acute exacerbation of congestive heart failure. We'll continue to monitor CBC, transfuse as needed. Patient is due for colonoscopy this certainly can be done in outpatient setting. Continue with IV iron 2 doses. Hemoglobin improving. Continues with no signs or symptoms of GI blood loss. Again likely dealing with anemia of chronic disease however I will continue to recommend outpatient EGD/colonoscopy. Current Visit: Yes Status: Acute Code(s): D64.9 - ANEMIA, UNSPECIFIED SNOMED Code(s): 73429276 (2) Edema Current Visit: Yes Status: Acute Code(s): R60.9 - EDEMA, UNSPECIFIED SNOMED Code(s): 928864093 (3) Diabetes mellitus Current Visit: Yes Status: Acute Code(s): E11.9 - TYPE 2 DIABETES MELLITUS WITHOUT COMPLICATIONS SNOMED Code(s): 88445804 (4) Congestive heart failure Current Visit: Yes Status: Acute Code(s): I50.9 - HEART FAILURE, UNSPECIFIED SNOMED Code(s): 19373719 (5) Weakness Current Visit: Yes Status: Acute Code(s): R53.1 - WEAKNESS SNOMED Code(s): 57207407 Plan: 1. Continue symptomatic and supportive care 2. Continue with medical management 3. Daily CBC, transfuse for hemoglobin less than 7 4. Iron studies were ordered 5. No plans at this time for endoscopic evaluation, we'll continue to monitor on a daily basis. This can certainly be done as an outpatient as patient does not have any for signs of GI blood loss. 6. Protonix 40 mg daily for GI prophylaxis 7. IV iron 2 doses Thank you for this consultation, we will continue to follow. Dr. Keagan Clemons I agree with the dictator's note, documented as a scribe by Adilene Tang.
[2022-02-04 14:43] VITALS: BMI 40.1
[2022-02-04 16:44] LABS: Glucose,Whole Blood 137 mg/dL (70-110)
[2022-02-04 20:30] LABS: Glucose,Whole Blood 194 mg/dL (70-110)
[2022-02-04] MEDS: traZODone HCL 100 MG TAB PO SCH (22:21)
[2022-02-04] MEDS: INSULIN DETEMIR (LEVEMIR) 100 UNIT/ML SYR SQ SCH (22:23)
[2022-02-04] MEDS: LEVOFLOXACIN 250MG-D5W PMX 250 MG in DEXTROSE/WATER 1 50ML.BAG IVPB SCH (22:24)
[2022-02-05] MEDS: LEVOTHYROXINE 100 MCG TAB PO SCH (05:48)
[2022-02-05 07:13] LABS: Glucose,Whole Blood 96 mg/dL (70-110)
[2022-02-05] MEDS: INSULIN ASPART (NovoLOG) 100 UNIT/ML VIAL SQ SCH ×4 (07:26→21:01)
[2022-02-05] MEDS: carvediloL 6.25 MG TAB PO SCH ×2 (08:57→21:07)
[2022-02-05] MEDS: SERTRALINE 50 MG TAB PO SCH ×2 (08:58→21:07)
[2022-02-05] MEDS: PRAMIPEXOLE 1 MG TAB PO SCH ×2 (08:58→21:08)
[2022-02-05] MEDS: PANTOPRAZOLE 40 MG TABLET PO SCH ×2 (08:58→17:06)
[2022-02-05] MEDS: FINASTERIDE 5 MG TAB PO SCH (08:58)
[2022-02-05] MEDS: amLODIPine 5 MG TAB PO SCH ×2 (08:58→21:08)
[2022-02-05] MEDS: hydrALAZINE HCL 50 MG TAB PO SCH ×2 (08:58→21:07)
[2022-02-05] MEDS: NYSTATIN 100,000 UNIT/GM POWD 15 GM TOPICAL SCH ×2 (08:59→21:08)
[2022-02-05] MEDS ORDERED: FUROSEMIDE 10 MG/ML 4 ML VIAL IV SCH (09:00)
[2022-02-05 10:44] LABS: Basophils # (A) 0.02 X 10*3/uL (0.00-0.10); Basophils % (A) 0.3 %; Eosinophils # (A) 0.22 X 10*3/uL (0.04-0.35); Eosinophils % (A) 2.8 %; HCT 22.4 % (39.6-50.0); HGB 7.3 g/dL (13.0-17.0); Immature Grans, Automated 0.6 %; Lymphocytes # (A) 1.07 X 10*3/uL (0.90-5.00); Lymphocytes % (A) 13.6 %; MCH 29.9 pg (27.0-32.0); MCHC 32.6 g/dL (32.0-37.0); MCV 91.8 fL (80.0-97.0); Mean Platelet Volume 11.7 fL (9.5-12.2); Monocytes # (A) 0.93 X 10*3/uL (0.20-1.00); Monocytes % (A) 11.8 %; NRBC Per 100 WBC 0 /100 WBCS (0.0-0.0); Neutrophils # (A) 5.59 X 10*3/uL (1.80-7.70); Neutrophils % (A) 70.9 %; Platelet Count 184 X 10*3/uL (140-440); RBC 2.44 X 10*6/uL (4.40-5.60); RDW 14.6 % (11.5-14.5); WBC 7.88 X 10*3/uL (4.50-10.00)
--- NOTE | 2022-02-05 11:12 | P.NPCON ---
History of Present Illness - Reason for Consult acute renal failure - History of Present Illness Patient is a 76-year-old male with past medical history of type 2 diabetes, hyperlipidemia, hypertension. Patient is admitted to the hospital with complaints of progressive shortness of breath increased weight gain and lower extremity edema. Patient has been diuresed. He states his volume status is much improved. Serum creatinine was 1.89 mg/dL on admission and it is at 2.0 today. Previous creatinine at 1.47 on 12/07/2021 and 1.3 on 04/23/2021 No history of use of NSAIDs on a regular basis No hypotension noted Patient has been voiding Review of Systems As per HPI other systems negative Past Medical History Past Medical History: Cancer, Diabetes Mellitus, Hyperlipidemia, Hypertension, Osteoarthritis (OA), Prostate Disorder, Thyroid Disorder Additional Past Medical History / Comment(s): skin cancer, neuropathy , restless legs History of Any Multi-Drug Resistant Organisms: None Reported Past Surgical History: Orthopedic Surgery Additional Past Surgical History / Comment(s): sinus sx. cancer removed lt ear. colonoscopy 07-07-17 anterior cervical decompression/discectomy/fusion c3-4, c4-5 Past Anesthesia/Blood Transfusion Reactions: No Reported Reaction Past Psychological History: Anxiety, Depression Smoking Status: Former smoker - Past Family History Father Additional Family Medical History / Comment(s): aortic aneurysm Mother Family Medical History: Cancer Additional Family Medical History / Comment(s): pancreas cancer Medications and Allergies Home Medications Medication Instructions Recorded Confirmed Type Finasteride [Proscar] 5 mg PO DAILY 05/17/17 02/02/22 History Insulin Detemir [Levemir Flextouch 40 units SQ HS 05/17/17 02/02/22 History Pen] allopurinoL [Zyloprim] 300 mg PO HS 05/17/17 02/02/22 History Pramipexole [Mirapex] 1 mg PO TID 02/17/21 02/02/22 History Sertraline [Zoloft] 50 mg PO BID 02/17/21 02/02/22 History Gabapentin [Neurontin] 300 mg PO TID PRN 04/19/21 02/02/22 History Vitamin B Complex 1 cap PO DAILY 04/19/21 02/02/22 History traZODone HCL [Desyrel] 100 mg PO HS 04/19/21 02/02/22 History hydroCHLOROthiazide [Hydrodiuril] 25 mg PO DAILY 30 Days #30 tab 04/23/21 02/02/22 Rx Aspirin 81 mg PO DAILY 07/09/21 02/02/22 History Amoxic-Pot Clav 875-125Mg 1 tab PO BID 02/02/22 02/02/22 History [Augmentin 875-125] Cholecalciferol [Vitamin D3 (25 25 mcg PO DAILY 02/02/22 02/02/22 History Mcg = 1000 Iu)] HYDROcodone/APAP 10-325MG [[place] 1 tab PO Q6HR PRN 02/02/22 02/02/22 History 10-325] Levothyroxine Sodium [Synthroid] 100 mcg PO DAILY 02/02/22 02/02/22 History amLODIPine [Norvasc] 5 mg PO BID 02/02/22 02/02/22 History carvediloL [Coreg] 6.25 mg PO BID 02/02/22 02/02/22 History hydrALAZINE HCL [Apresoline] 100 mg PO BID 02/02/22 02/02/22 History lisinopriL 40 mg PO DAILY 02/02/22 02/02/22 History Allergies Allergy/AdvReac Type Severity Reaction Status Date / Time enalaprilat [From Vasotec] Allergy felt weak, Verified 02/02/22 16:14 couldn't talk erythromycin base AdvReac Nausea & Verified 02/02/22 16:14 [From Erythrocin] Vomiting Physical Exam Vitals: Vital Signs Temp Pulse Resp BP Pulse Ox 02/05/22 07:26 98.9 F 75 18 169/72 90 L 02/05/22 01:40 97.9 F 68 16 161/71 92 L 02/04/22 19:16 98.3 F 75 17 175/63 93 L 02/04/22 14:00 98.2 F 70 16 158/71 93 L Intake and Output 02/04/22 02/05/22 02/05/22 22:59 06:59 14:59 Intake Total 2160 Balance 2160 Intake: Oral 2160 Other: Voiding Method Bedside Commode # Voids 3 3 Agent is awake, comfortable, not in any acute distress Examination of the heart S1 and S2 Examination of the lungs bilateral breath sounds are heard Abdomen is soft nontender Examination of the lower extremities shows edema 2+ bilaterally currently improved from admission per patient [employer] exam grossly intact Results - Lab Results Most recent lab results Calcium 9.2 mg/dL (8.4-10.2) 02/04/22 11:31 02/05/22 07:05 02/04/22 11:31 Assessment and Plan Assessment: 1. Acute kidney injury, cardiorenal, rule out urine retention. Currently nonoliguric. Check urine analysis. Check ultrasound of the kidneys 2. Volume overload currently improved since admission 3. Anemia with evidence of iron deficiency with iron saturation at 12% 4. CK D NKF stage IIIB with previous creatinine 1.4 mg/dL in November 2020 etiology likely nephrosclerosis. Previous UA showed evidence of 2+ protein on 12/07/2021 Plan: IV iron supplementation Agree with switching to by mouth Lasix Avoid hypotension Add SGLT to inhibitors once renal function stabilizes
[2022-02-05 11:14] LABS: African American GFR (CKD) 39.4 (60.0-200.0); Anion Gap 10.5 mmol/L (10.00-18.00); BUN/Creat Ratio 18.32 Ratio (12.00-20.00); Blood Urea Nitrogen 34.8 mg/dL (9.0-27.0); Carbon Dioxide 25.5 mmol/L (20.0-27.5); Magnesium 1.9 mg/dL (1.5-2.4); Potassium 4.1 mmol/L (3.5-5.5)
--- NOTE | 2022-02-05 11:14 | P.CRDCN ---
History of Present Illness Consult date: 02/05/22 History of present illness: HISTORY OF PRESENT ILLNESS: This is a 76-year-old male with a past medical history significant for nonobstructive coronary artery disease, hypertension, and neuropathy. Patient follows in the office with Dr. Wheeler. We have been asked to see the patient in consultation for CHF. Patient examined at the bedside. Patient states he presented to the hospital with a chief complaint of shortness of breath and increased lower extremity edema. Patient reports he has been taking hydrochlorothiazide at home and has been compliant with his medications. He reports a weight gain of 31 pounds over a two-week period. Patient was started on IV Lasix. Patient was found to have acute kidney injury with a creatinine of 2.01 today. He was also found to have anemia. Patient's hemoglobin is 7.3 today. Patient denies any blood in his stools or dark tarry stools. * Chest xray multifocal airspace opacities concerning for pneumonia * Laboratory data: WBC 7.88. Hemoglobin 7.3. Platelet count 184. Sodium 139. Potassium 4.3. BUN 35. Creatinine 2.01. ProBNP 450. * Current home cardiac medications include Norvasc 5 mg twice a day, carvedilol 6.25 mg twice a day, hydralazine 100 mg twice a day, hydrochlorothiazide 25 mg daily, aspirin 81 mg daily, lisinopril 40 mg daily * Echocardiogram obtained revealed ejection fraction 55-60%, mild MR, mild TR * Cardiac catheterization history: June 2021 revealing 40% mid LAD, 30% proximal OM1, 40% proximal RCA, right dominant system. REVIEW OF SYSTEMS: At the time of my exam: CONSTITUTIONAL: Denies fever or chills. HEENT: Denies blurred vision, vision changes, or eye pain. Denies hemoptysis CARDIOVASCULAR: Denies chest pain. Denies orthopnea. Denies PND. Denies palpitations RESPIRATORY: Denies shortness of breath. GASTROINTESTINAL: Denies abdominal pain. Denies nausea or vomiting. HEMATOLOGIC: Denies bleeding disorders. GENITOURINARY: Denies any blood in urine. SKIN: Denies pruitis. Denies rash. PHYSICAL EXAM: VITAL SIGNS: Reviewed. GENERAL: Well-developed in no acute distress. HEENT: Head is normocephalic. Pupils are equal, round. Sclerae anicteric. Mucous membranes of the mouth are moist. Neck supple. No JVD or thyromegaly LUNGS: Respirations even and unlabored. Lungs essentially clear to auscultation bilaterally. HEART: Regular rate and rhythm. S1 and S2 heard. Systolic murmur noted. ABDOMEN: Soft. Nondistended. Nontender. EXTREMITIES: Normal range of motion. No clubbing or cyanosis. Peripheral pulses intact. 1-2+ pitting bilateral lower extremity edema with ETHNA hose noted bilaterally NEUROLOGIC: Awake and alert. Oriented x 3. ASSESSMENT: Shortness of breath, multifactorial, secondary to acute anemia, acute heart failure with preserved EF, and acute kidney injury Acute anemia Acute kidney injury Acute heart failure with preserved ejection fraction Nonobstructive coronary artery disease Hypertension Neuropathy PLAN: 2D echo obtained and reviewed Continue lasix for lower extremity edema. Norvasc may be contributing to LE edema. Will continue for now and continue to re-assess. GI on consult for anemia Continue additional cardiac medications Continue to monitor blood pressure Further recommendations pending patient course Nurse practitioner note has been reviewed by physician. Signing provider agrees with the documented findings, assessment, and plan of care. Past Medical History Past Medical History: Cancer, Diabetes Mellitus, Hyperlipidemia, Hypertension, Osteoarthritis (OA), Prostate Disorder, Thyroid Disorder Additional Past Medical History / Comment(s): skin cancer, neuropathy , restless legs History of Any Multi-Drug Resistant Organisms: None Reported Past Surgical History: Orthopedic Surgery Additional Past Surgical History / Comment(s): sinus sx. cancer removed lt ear. colonoscopy 07-07-17 anterior cervical decompression/discectomy/fusion c3-4, c4-5 Past Anesthesia/Blood Transfusion Reactions: No Reported Reaction Past Psychological History: Anxiety, Depression Smoking Status: Former smoker - Past Family History Father Additional Family Medical History / Comment(s): aortic aneurysm Mother Family Medical History: Cancer Additional Family Medical History / Comment(s): pancreas cancer Medications and Allergies Home Medications Medication Instructions Recorded Confirmed Type Finasteride [Proscar] 5 mg PO DAILY 05/17/17 02/02/22 History Insulin Detemir [Levemir Flextouch 40 units SQ HS 05/17/17 02/02/22 History Pen] allopurinoL [Zyloprim] 300 mg PO HS 05/17/17 02/02/22 History Pramipexole [Mirapex] 1 mg PO TID 02/17/21 02/02/22 History Sertraline [Zoloft] 50 mg PO BID 02/17/21 02/02/22 History Gabapentin [Neurontin] 300 mg PO TID PRN 04/19/21 02/02/22 History Vitamin B Complex 1 cap PO DAILY 04/19/21 02/02/22 History traZODone HCL [Desyrel] 100 mg PO HS 04/19/21 02/02/22 History hydroCHLOROthiazide [Hydrodiuril] 25 mg PO DAILY 30 Days #30 tab 04/23/21 02/02/22 Rx Aspirin 81 mg PO DAILY 07/09/21 02/02/22 History Amoxic-Pot Clav 875-125Mg 1 tab PO BID 02/02/22 02/02/22 History [Augmentin 875-125] Cholecalciferol [Vitamin D3 (25 25 mcg PO DAILY 02/02/22 02/02/22 History Mcg = 1000 Iu)] HYDROcodone/APAP 10-325MG [[place] 1 tab PO Q6HR PRN 02/02/22 02/02/22 History 10-325] Levothyroxine Sodium [Synthroid] 100 mcg PO DAILY 02/02/22 02/02/22 History amLODIPine [Norvasc] 5 mg PO BID 02/02/22 02/02/22 History carvediloL [Coreg] 6.25 mg PO BID 02/02/22 02/02/22 History hydrALAZINE HCL [Apresoline] 100 mg PO BID 02/02/22 02/02/22 History lisinopriL 40 mg PO DAILY 02/02/22 02/02/22 History Allergies Allergy/AdvReac Type Severity Reaction Status Date / Time enalaprilat [From Vasotec] Allergy felt weak, Verified 02/02/22 16:14 couldn't talk erythromycin base AdvReac Nausea & Verified 02/02/22 16:14 [From Erythrocin] Vomiting Physical Exam Vitals: Vital Signs Temp Pulse Resp BP Pulse Ox 02/05/22 07:26 98.9 F 75 18 169/72 90 L 02/05/22 01:40 97.9 F 68 16 161/71 92 L 02/04/22 19:16 98.3 F 75 17 175/63 93 L 02/04/22 14:00 98.2 F 70 16 158/71 93 L Intake and Output 02/04/22 02/05/22 02/05/22 22:59 06:59 14:59 Intake Total 2160 Balance 2160 Intake: Oral 2160 Other: Voiding Method Bedside Commode # Voids 3 3 Results 02/05/22 07:05 02/04/22 11:31 CBC 02/04/22 02/05/22 Range/Units 11:31 07:05 WBC 7.0 7.88 (3.8-10.6) k/uL RBC 2.76 L 2.44 L (4.30-5.90) m/uL Hgb 8.6 L 7.3 L (13.0-17.5) gm/dL Hct 26.1 L 22.4 L (39.0-53.0) % Plt Count 214 184 (150-450) k/uL Comprehensive Metabolic Panel 02/04/22 Range/Units 11:31 Sodium 139 (137-145) mmol/L Potassium 4.3 (3.5-5.1) mmol/L Chloride 101 (98-107) mmol/L Carbon Dioxide 26 (22-30) mmol/L BUN 35 H (9-20) mg/dL Creatinine 2.01 H (0.66-1.25) mg/dL Glucose 128 H (74-99) mg/dL Calcium 9.2 (8.4-10.2) mg/dL Current Medications Generic Name Dose Route Start Last Admin Trade Name Freq PRN Reason Stop Dose Admin Acetaminophen 650 mg 02/03/22 05:48 Acetaminophen Tab 325 Mg Tab PO Q6HR PRN Mild Pain or Fever > 100.5 Hydrocodone Bitart/Acetaminophen 1 each 02/03/22 02:13 02/04/22 22:24 Hydrocodone/Apap 10-325mg 1 Each Tab PO 1 each Q6HR PRN Administration Pain Albuterol/Ipratropium 3 ml 02/02/22 22:19 02/03/22 19:30 Ipratropium-Albuterol 3 Ml Neb INHALATION 3 ml RT-Q4H PRN Administration shortness of breath Alprazolam 0.25 mg 02/03/22 05:48 Alprazolam 0.25 Mg Tab PO Q6HR PRN Anxiety Amlodipine Besylate 5 mg 02/03/22 09:00 02/05/22 08:58 Amlodipine 5 Mg Tab PO 5 mg BID FRANKO Administration Carvedilol 6.25 mg 02/03/22 09:00 02/05/22 08:57 Carvedilol 6.25 Mg Tab PO 6.25 mg BID FRANKO Administration Finasteride 5 mg 02/03/22 09:00 02/05/22 08:58 Finasteride 5 Mg Tab PO 5 mg DAILY FRANKO Administration Furosemide 40 mg 02/06/22 09:00 Furosemide 40 Mg Tab PO DAILY FRANKO Gabapentin 300 mg 02/03/22 05:47 Gabapentin 300 Mg Cap PO TID PRN Pain Hydralazine HCl 100 mg 02/03/22 09:00 02/05/22 08:58 Hydralazine Hcl 50 Mg Tab PO 100 mg BID FRANKO Administration Levofloxacin/Dextrose 250 mg/ 50 mls @ 50 mls/hr 02/03/22 23:00 02/04/22 22:24 IV Solution IVPB 50 mls/hr Q24H FRANKO Administration Insulin Aspart 0 unit 02/03/22 07:30 02/05/22 07:26 Insulin Aspart (Novolog) 100 Unit/Ml Vial SQ Not Given ACHS [facility] Protocol Insulin Detemir 40 unit 02/03/22 21:00 02/04/22 22:23 Insulin Detemir (Levemir) 100 Unit/Ml Syr SQ 40 unit HS [facility] Administration Levothyroxine Sodium 100 mcg 02/03/22 06:30 02/05/22 05:48 Levothyroxine 100 Mcg Tab PO 100 mcg DAILY@0630 FRANKO Administration Melatonin 3 mg 02/03/22 05:48 Melatonin 3 Mg Tablet PO HS PRN Insomnia Miscellaneous Information 1 each 02/02/22 22:19 Pneumonia Protocol Utilized 1 Each Misc PO ONCE PRN Per Protocol Naloxone HCl 0.2 mg 02/03/22 05:48 Naloxone 0.4 Mg/Ml 1 Ml Vial IV Q2M PRN Opioid Reversal Nystatin 1 applic 02/03/22 09:00 02/05/22 08:59 Nystatin 100,000 Unit/Gm Powd 15 Gm TOPICAL 1 applic BID FRANKO Administration Protocol Ondansetron HCl 4 mg 02/03/22 05:48 02/03/22 21:05 Ondansetron 4 Mg/2 Ml Vial IVP 4 mg Q8HR PRN Administration Nausea And Vomiting Pantoprazole Sodium 40 mg 02/03/22 07:30 02/05/22 08:58 Pantoprazole 40 Mg Tablet PO 40 mg AC-BID FRANKO Administration Pramipexole Dihydrochloride 1 mg 02/04/22 16:00 02/05/22 08:58 Pramipexole 1 Mg Tab PO 1 mg DAILY FRANKO Administration Pramipexole Dihydrochloride 2 mg 02/04/22 21:00 02/04/22 22:22 Pramipexole 1 Mg Tab PO 2 mg HS FRANKO Administration Sertraline HCl 50 mg 02/03/22 09:00 02/05/22 08:58 Sertraline 50 Mg Tab PO 50 mg BID FRANKO Administration Trazodone HCl 100 mg 02/03/22 21:00 02/04/22 22:21 Trazodone Hcl 100 Mg Tab PO 100 mg HS FRANKO Administration Intake and Output 02/04/22 02/05/22 02/05/22 22:59 06:59 14:59 Intake Total 2160 Balance 2160 Intake: Oral 2160 Other: Voiding Method Bedside Commode # Voids 3 3 02/05/22 07:05 02/04/22 11:31
[2022-02-05 11:26] LABS: Glucose,Whole Blood 125 mg/dL (70-110)
--- NOTE | 2022-02-05 13:13 | P.PN ---
Subjective Progress Note Date: 02/05/22 Principal diagnosis: Anemia This is a very pleasant 76-year-old white male who presented to the emergency department sent in from his PCP for concerns of increased swelling, shortness of breath and weakness. Patient has a past medical history including skin cancer, diabetes mellitus, hyperlipidemia, hypertension, thyroid disorder, prostate disorder as well as congestive heart failure. Patient states he's had increased swelling, dyspnea with exertion, and approximately 30 pound weight gain over the last 1 month's duration. He recently went to see his PCP who told him to come into the emergency department yesterday. Patient was admitted with acute kidney injury on possible chronic kidney disease, acute on chronic CHF exacerbation, possible pneumonia, and anemia. Patient denies any history of GI bleed, no recent signs or symptoms of GI bleed. States that he has some sores near the rectum that will occasionally bleed but this is not a regular basis. He denies any anticoagulation, he is on low-dose baby aspirin. Denies any blood in his stool or black stool. Denies abdominal pain, history of peptic ulcer disease, or acid reflux. On admission patient was noted to be anemic and gastroenterology was consulted for possible GI bleed. He is unsure of his last colonoscopy, states it's been several years and he believes he would be due. States that his last colonoscopy he remembers that he had one small polyp home with polypectomy, unsure where he had it done or who did the colonoscopy. Admitting hemoglobin 8.3. 02/04/2022: Patient seen and examined today as a follow-up for anemia. Patient continues to deny any overt signs of GI blood loss. Denies any blood in his stool or black stool. Denies abdominal pain, nausea or vomiting. States he is still set having shortness of breath and discomfort in his legs due to swelling. He also had a poor night sleep due to restless leg syndrome. Hemoglobin actually improved and is at 8.6. He is receiving IV iron 2. No acute changes through the night. He remains on 2 L nasal cannula, oxygen saturation 97% 02/05/2022: Patient seen and reexamined as a follow-up for anemia. He continues to deny any blood in his stool. Denies abdominal pain, nausea or vomiting. He states overall he is doing better. No plans for endoscopic evaluation. Hemoglobin 7.3. He is status post iron infusion. Objective - Vital Signs Vital signs: Vital Signs Temp 98.9 F 02/05/22 07:26 Pulse 75 02/05/22 07:26 Resp 18 02/05/22 07:26 BP 169/72 02/05/22 07:26 Pulse Ox 90 L 02/05/22 07:26 FiO2 Intake & Output 02/04/22 02/05/22 02/05/22 18:59 06:59 18:59 Intake Total 2160 Balance 2160 Weight 123.377 kg Intake: Oral 2160 Other: Voiding Method Bedside Commode # Voids 9 3 - Exam General appearance: The patient is alert, oriented, appears in no acute distress. HET: Head is normocephalic and atraumatic. Conjunctiva pink. Sclera anicteric. Neck: Supple without lymphadenopathy. Abdomen: Soft, obese, nontender, nondistended with bowel sounds. No guarding or rigidity. Extremities: Normal skin color and turgor. Bilateral lower extremity edema. Skin: No rashes, no jaundice Neurological: No focal deficits. Alert and oriented -3. - Labs CBC & Chem 7: 02/05/22 07:05 02/05/22 07:05 Labs: Abnormal Lab Results - Last 24 Hours (Table) 02/04/22 02/04/22 02/04/22 Range/Units 11:31 11:31 11:38 RBC 2.76 L (4.30-5.90) m/uL Hgb 8.6 L (13.0-17.5) gm/dL Hct 26.1 L (39.0-53.0) % BUN 35 H (9-20) mg/dL Creatinine 2.01 H (0.66-1.25) mg/dL Glucose 128 H (74-99) mg/dL POC Glucose (mg/dL) 160 H (70-110) mg/dL 02/04/22 02/04/22 Range/Units 16:43 20:29 RBC (4.30-5.90) m/uL Hgb (13.0-17.5) gm/dL Hct (39.0-53.0) % BUN (9-20) mg/dL Creatinine (0.66-1.25) mg/dL Glucose (74-99) mg/dL POC Glucose (mg/dL) 137 H 194 H (70-110) mg/dL Microbiology - Last 24 Hours (Table) 02/02/22 22:50 Blood Culture - Preliminary Blood No Growth after 48 hours 02/02/22 22:50 Blood Culture - Preliminary Blood No Growth after 48 hours Assessment and Plan (1) Normocytic normochromic anemia Narrative/Plan: 76-year-old male with multiple comorbidities presented to the emergency department directed by his PCP for increased swelling, shortness of breath and weight gain of 30 pounds over last 1 month duration. Patient was known to be anemic on presentation to the emergency department gastroenterology was consulted for possible GI bleed. Patient denies any signs or symptoms of GI ble ed. Denies any black stool, blood in his stool states he does have some sores near his rectum and Bleed occasionally bite down on a regular basis. Denies previous history of GI bleed not on any anticoagulation denies abdominal pain or peptic ulcer disease. Last colonoscopy many years ago significant for colon polyp with polypectomy. Unclear at this time of etiology of chronic anemia, his iron studies are consistent with an iron deficiency anemia, possible etiology includes anemia of chronic disease in light of patient has no overt signs or symptoms of GI bleed. at this time we'll hold off on endoscopic evaluation well patient being treated for pneumonia and acute exacerbation of congestive heart failure. We'll continue to monitor CBC, transfuse as needed. Patient is due for colonoscopy this certainly can be done in outpatient setting. Continue with IV iron 2 doses. Hemoglobin improving. Continues with no signs or symptoms of GI blood loss. Again likely dealing with anemia of chronic disease however I will continue to recommend outpatient EGD/colonoscopy. Current Visit: Yes Status: Acute Code(s): D64.9 - ANEMIA, UNSPECIFIED SNOMED Code(s): 29222599 (2) Edema Current Visit: Yes Status: Acute Code(s): R60.9 - EDEMA, UNSPECIFIED SNOMED Code(s): 603773658 (3) Diabetes mellitus Current Visit: Yes Status: Acute Code(s): E11.9 - TYPE 2 DIABETES MELLITUS WITHOUT COMPLICATIONS SNOMED Code(s): 23962659 (4) Congestive heart failure Current Visit: Yes Status: Acute Code(s): I50.9 - HEART FAILURE, UNSPECIFIED SNOMED Code(s): 24029303 (5) Weakness Current Visit: Yes Status: Acute Code(s): R53.1 - WEAKNESS SNOMED Code(s): 62441894 Plan: 1. Continue symptomatic and supportive care 2. Continue with medical management 3. Daily CBC, transfuse for hemoglobin less than 7 4. Iron studies were ordered 5. No plans at this time for endoscopic evaluation, we'll continue to monitor on a daily basis. This can certainly be done as an outpatient as patient does not have any for signs of GI blood loss. 6. Protonix 40 mg daily for GI prophylaxis 7. IV iron 2 doses Thank you for this consultation, we will sign off at this time. Dr. Keagan Clemons I agree with the dictator's note, documented as a scribe by Adilene FERRARA.
--- NOTE | 2022-02-05 14:57 | P.PN ---
Subjective Progress Note Date: 02/05/22 Principal diagnosis: sob He is feeling better today. His breathing and leg swelling are both improved. He still feeling weak all over and that's preventing him from ambulating much. No fevers or chills. No cough. Objective - Vital Signs Vital signs: Vital Signs Temp 98.9 F 02/05/22 07:26 Pulse 75 02/05/22 07:26 Resp 18 02/05/22 07:26 BP 169/72 02/05/22 07:26 Pulse Ox 90 L 02/05/22 07:26 FiO2 Intake & Output 02/04/22 02/05/22 02/05/22 18:59 06:59 18:59 Intake Total 2160 Balance 2160 Weight 123.377 kg Intake: Oral 2160 Other: Voiding Method Bedside Commode # Voids 9 3 - Exam Constitutional: No acute distress, conversant, pleasant Eyes:Anicteric sclerae, moist conjunctiva, no lid-lag, PERRLA, ENMT: Oropharynx clear, no erythema, exudates Neck: Supple, FROM, no masses, or JVD, No carotid bruits, No thyromegaly Lungs: Clear to auscultation, Clear to percussion, Normal respiratory effort, no accessory muscle use Cardiovascular: Heart regular in rate and rhythm, No murmurs, gallops, or rubs, 1+ peripheral edema Abdominal: Soft, Nontender, no guarding, rebound or rigidity, Normoactive bowel sounds, No hepatomegaly, No splenomegaly, No palpable mass Skin: Normal temperature, tone, texture, turgor, no induration, No subcutaneous nodules, No rash, lesions, No ulcers Extremities: No digital cyanosis, No clubbing, Pedal pulses intact and symmetrical, Radial pulses intact and symmetrical, No calf tenderness Psychiatric: Alert and oriented to person, place and time, appropriate affect, intact judgement Neuro: Muscles Strength 5/5 in all 4 extremities, Sensation to light touch gr ossly present throughout, Cranial nerves II-XII grossly intact, no focal sensory deficits - Labs CBC & Chem 7: 02/05/22 07:05 02/05/22 07:05 Labs: Abnormal Lab Results - Last 24 Hours (Table) 02/04/22 02/04/22 02/05/22 Range/Units 16:43 20:29 07:05 RBC 2.44 L (4.40-5.60) X 10*6/uL Hgb 7.3 L (13.0-17.0) g/dL Hct 22.4 L (39.6-50.0) % RDW 14.6 H (11.5-14.5) % Immature Gran # 0.05 H (0.00-0.04) X 10*3/uL BUN (9.0-27.0) mg/dL Creatinine (0.6-1.5) mg/dL Est GFR (CKD-EPI)AfAm (60.0-200.0) Est GFR (CKD-EPI)NonAf (60.0-200.0) POC Glucose (mg/dL) 137 H 194 H (70-110) mg/dL 02/05/22 02/05/22 Range/Units 07:05 11:25 RBC (4.40-5.60) X 10*6/uL Hgb (13.0-17.0) g/dL Hct (39.6-50.0) % RDW (11.5-14.5) % Immature Gran # (0.00-0.04) X 10*3/uL BUN 34.8 H (9.0-27.0) mg/dL Creatinine 1.9 H (0.6-1.5) mg/dL Est GFR (CKD-EPI)AfAm 39.4 L (60.0-200.0) Est GFR (CKD-EPI)NonAf 34.0 L (60.0-200.0) POC Glucose (mg/dL) 125 H (70-110) mg/dL Microbiology - Last 24 Hours (Table) 02/02/22 22:50 Blood Culture - Preliminary Blood No Growth after 48 hours 02/02/22 22:50 Blood Culture - Preliminary Blood No Growth after 48 hours Assessment and Plan Plan: Sob likely sec to acute on chronic diastolic CHF exacerbation and anemia Pneumonia ruled out. Negative procal and negative legionella, no fevers, had one dose of levaquin and rocephine in the ED IV lasix--switch to oral today. fluid restriction resume cardiac meds statin, coreg , norvasc, hydralazine 911 telecommunicator monitor vital signs Echo showing moderate concentric LVH with normal EF Cardio following BOZENA on possible CKD, likely due to cardiorenal syndrome (elevated cr since beginning of the year) Scale down on diuresis as cr is worse today monitor renal function and urine output Consult nephrology acute anemia, likely due to iron deficiency, rule out GI bleeding FOBT PPI hold blood thinners and ASA GI consulted no need for inpateint scopes can be outpatient, will need colonoscopy IV iron, then oral. RLS resume mirapex DM 2 , Add SGLT2 inhibitor upon discharge. insulin sliding scale continue levemir DVT PPX mechanical full code
[2022-02-05 16:45] LABS: Glucose,Whole Blood 210 mg/dL (70-110)
[2022-02-05] MEDS: ONDANSETRON 4 MG/2 ML VIAL IVP PRN (19:33)
[2022-02-05 20:54] LABS: Glucose,Whole Blood 138 mg/dL (70-110)
[2022-02-05] MEDS ORDERED: LEVOFLOXACIN 250 MG TAB PO SCH (21:00)
[2022-02-05] MEDS: INSULIN DETEMIR (LEVEMIR) 100 UNIT/ML SYR SQ SCH (21:06)
[2022-02-05] MEDS: traZODone HCL 100 MG TAB PO SCH (21:07)
[2022-02-06] MEDS: LEVOTHYROXINE 100 MCG TAB PO SCH (05:46)
[2022-02-06 06:50] LABS: Glucose,Whole Blood 114 mg/dL (70-110)
[2022-02-06] MEDS ORDERED: FUROSEMIDE 40 MG TAB PO SCH (09:00)
[2022-02-06] MEDS: INSULIN ASPART (NovoLOG) 100 UNIT/ML VIAL SQ SCH ×3 (09:05→16:41)
[2022-02-06] MEDS: PANTOPRAZOLE 40 MG TABLET PO SCH (09:06)
[2022-02-06] MEDS: SERTRALINE 50 MG TAB PO SCH (09:13)
[2022-02-06] MEDS: FINASTERIDE 5 MG TAB PO SCH (09:13)
[2022-02-06] MEDS: amLODIPine 5 MG TAB PO SCH (09:13)
[2022-02-06] MEDS: hydrALAZINE HCL 50 MG TAB PO SCH (09:13)
[2022-02-06] MEDS: carvediloL 6.25 MG TAB PO SCH (09:13)
[2022-02-06] MEDS: NYSTATIN 100,000 UNIT/GM POWD 15 GM TOPICAL SCH (09:14)
[2022-02-06] MEDS: PRAMIPEXOLE 1 MG TAB PO SCH (09:14)
[2022-02-06 09:26] LABS: African American GFR (CKD) 43 (>60 ml/min/1.73 sqM); Anion Gap 10 mmol/L; Blood Urea Nitrogen 32 mg/dL (9-20); Calcium 8.5 mg/dL (8.4-10.2); Carbon Dioxide 26 mmol/L (22-30); Chloride 102 mmol/L (98-107); Glucose 119 mg/dL (74-99); Non-African American GFR(CKD) 37 (>60 ml/min/1.73 sqM); Potassium 3.7 mmol/L (3.5-5.1); Sodium 138 mmol/L (137-145)
--- NOTE | 2022-02-06 09:47 | P.PN ---
Subjective Progress Note Date: 02/06/22 HISTORY OF PRESENT ILLNESS: This is a 76-year-old male with a past medical history significant for nonobstructive coronary artery disease, hypertension, and neuropathy. Patient follows in the office with Dr. Wheeler. We have been asked to see the patient in consultation for CHF. Patient examined at the bedside. Patient states he presented to the hospital with a chief complaint of shortness of breath and increased lower extremity edema. Patient reports he has been taking hydroc hlorothiazide at home and has been compliant with his medications. He reports a weight gain of 31 pounds over a two-week period. Patient was started on IV Lasix. Patient was found to have acute kidney injury with a creatinine of 2.01 today. He was also found to have anemia. Patient's hemoglobin is 7.3 today. Patient denies any blood in his stools or dark tarry stools. * Chest xray multifocal airspace opacities concerning for pneumonia * Laboratory data: WBC 7.88. Hemoglobin 7.3. Platelet count 184. Sodium 139. Potassium 4.3. BUN 35. Creatinine 2.01. ProBNP 450. * Current home cardiac medications include Norvasc 5 mg twice a day, carvedilol 6.25 mg twice a day, hydralazine 100 mg twice a day, hydrochlorothiazide 25 mg daily, aspirin 81 mg daily, lisinopril 40 mg daily * Echocardiogram obtained revealed ejection fraction 55-60%, mild MR, mild TR * Cardiac catheterization history: June 2021 revealing 40% mid LAD, 30% proximal OM1, 40% proximal RCA, right dominant system. 02/06/2022 Patient examined this morning at the bedside. Patient denies chest pain or pressure. He denies shortness of breath. Patient states he has been up and bleeding without difficulty. Vital signs are stable. PHYSICAL EXAM: VITAL SIGNS: Reviewed. GENERAL: Well-developed in no acute distress. HEENT: Head is normocephalic. Pupils are equal, round. Sclerae anicteric. Mucous membranes of the mouth are moist. Neck supple. No JVD or thyromegaly LUNGS: Respirations even and unlabored. Lungs with a few crackles at the bases. HEART: Regular rate and rhythm. S1 and S2 heard. Systolic murmur noted. ABDOMEN: Soft. Nondistended. Nontender. EXTREMITIES: Normal range of motion. No clubbing or cyanosis. Peripheral pulses intact. 1+ pitting bilateral lower extremity edema with ETHAN hose noted bilaterally NEUROLOGIC: Awake and alert. Oriented x 3. ASSESSMENT: Shortness of breath, multifactorial, secondary to acute anemia, acute heart failure with preserved EF, and acute kidney injury Acute anemia Acute kidney injury Acute heart failure with preserved ejection fraction Nonobstructive coronary artery disease Hypertension Neuropathy PLAN: Continue current cardiac medications Patient is currently stable from a cardiac stand point with no further inpatient recommendations from a cardiology perspective We will sign off. Please reconsult if needed. Nurse practitioner note has been reviewed by physician. Signing provider agrees with the documented findings, assessment, and plan of care. Objective - Vital Signs Vital signs: Vital Signs Temp 98.2 F 02/06/22 02:42 Pulse 63 02/06/22 02:42 Resp 17 02/06/22 02:42 BP 128/56 02/06/22 02:42 Pulse Ox 92 L 02/06/22 07:57 FiO2 Intake & Output 02/05/22 02/06/22 02/06/22 18:59 06:59 18:59 Intake Total 480 Balance 480 Intake: Oral 480 Other: Voiding Method Bedside Commode # Voids 15 6 - Labs CBC & Chem 7: 02/05/22 07:05 02/06/22 08:56 Labs: Abnormal Lab Results - Last 24 Hours (Table) 02/05/22 02/05/22 02/05/22 Range/Units 07:05 07:05 11:25 RBC 2.44 L (4.40-5.60) X 10*6/uL Hgb 7.3 L (13.0-17.0) g/dL Hct 22.4 L (39.6-50.0) % RDW 14.6 H (11.5-14.5) % Immature Gran # 0.05 H (0.00-0.04) X 10*3/uL BUN 34.8 H (9.0-27.0) mg/dL Creatinine 1.9 H (0.6-1.5) mg/dL Est GFR (CKD-EPI)AfAm 39.4 L (60.0-200.0) Est GFR (CKD-EPI)NonAf 34.0 L (60.0-200.0) Glucose (74-99) mg/dL POC Glucose (mg/dL) 125 H (70-110) mg/dL 02/05/22 02/05/22 02/06/22 Range/Units 16:34 20:52 06:49 RBC (4.40-5.60) X 10*6/uL Hgb (13.0-17.0) g/dL Hct (39.6-50.0) % RDW (11.5-14.5) % Immature Gran # (0.00-0.04) X 10*3/uL BUN (9.0-27.0) mg/dL Creatinine (0.6-1.5) mg/dL Est GFR (CKD-EPI)AfAm (60.0-200.0) Est GFR (CKD-EPI)NonAf (60.0-200.0) Glucose (74-99) mg/dL POC Glucose (mg/dL) 210 H 138 H 114 H (70-110) mg/dL 02/06/22 Range/Units 08:56 RBC (4.40-5.60) X 10*6/uL Hgb (13.0-17.0) g/dL Hct (39.6-50.0) % RDW (11.5-14.5) % Immature Gran # (0.00-0.04) X 10*3/uL BUN 32 H (9.0-27.0) mg/dL Creatinine 1.76 H (0.6-1.5) mg/dL Est GFR (CKD-EPI)AfAm (60.0-200.0) Est GFR (CKD-EPI)NonAf (60.0-200.0) Glucose 119 H (74-99) mg/dL POC Glucose (mg/dL) (70-110) mg/dL Microbiology - Last 24 Hours (Table) 02/02/22 22:50 Blood Culture - Preliminary Blood No Growth after 72 hours 02/02/22 22:50 Blood Culture - Preliminary Blood No Growth after 72 hours
[2022-02-06 09:59] VITALS: BP 163/54; PULSE 65; RESP 16; TEMP 98.5
--- NOTE | 2022-02-06 11:20 | P.PN ---
Subjective Patient is seen for follow-up for acute kidney injury. He has underlying history of type 2 diabetes and hyperlipidemia and hypertension. Patient was admitted to the hospital with volume overload. He has been diuresed. Serum creatinine had increased to 2.0 from 1.8 on initial admission. Diuretics have been decreased and the creatinine is down to 1.7 today No significant complaints today. Patient wants to go home Objective - Vital Signs Vital signs: Vital Signs Temp 98.5 F 02/06/22 08:00 Pulse 65 02/06/22 08:00 Resp 16 02/06/22 08:00 BP 163/54 02/06/22 08:00 Pulse Ox 95 02/06/22 08:00 FiO2 Intake & Output 02/05/22 02/06/22 02/06/22 18:59 06:59 18:59 Intake Total 480 Balance 480 Intake: Oral 480 Other: Voiding Method Bedside Commode # Voids 15 6 - Exam Awake, comfortable, not in any acute distress Examination of the heart S1 and S2 Examination lungs bilateral breath sounds are heard Abdomen is soft nontender Examination lower extremities shows much decreased edema [employer] exam grossly intact - Labs CBC & Chem 7: 02/05/22 07:05 02/06/22 08:56 Labs: Abnormal Lab Results - Last 24 Hours (Table) 02/05/22 02/05/22 02/05/22 Range/Units 11:25 16:34 20:52 BUN (9-20) mg/dL Creatinine (0.66-1.25) mg/dL Glucose (74-99) mg/dL POC Glucose (mg/dL) 125 H 210 H 138 H (70-110) mg/dL 02/06/22 02/06/22 Range/Units 06:49 08:56 BUN 32 H (9-20) mg/dL Creatinine 1.76 H (0.66-1.25) mg/dL Glucose 119 H (74-99) mg/dL POC Glucose (mg/dL) 114 H (70-110) mg/dL Microbiology - Last 24 Hours (Table) 02/02/22 22:50 Blood Culture - Preliminary Blood No Growth after 72 hours 02/02/22 22:50 Blood Culture - Preliminary Blood No Growth after 72 hours Assessment and Plan Assessment: 1. Acute kidney injury, cardiorenal, no urine retention. Currently nonoliguric. Check urine analysis. Check ultrasound of the kidneys 2. Volume overload currently improved since admission 3. Anemia with evidence of iron deficiency with iron saturation at 12% 4. CK D NKF stage IIIB with previous creatinine 1.4 mg/dL in November 2020 etiology likely nephrosclerosis. Previous UA showed evidence of 2+ protein on 12/07/2021 Plan: IV iron supplementation Agree with switching to by mouth Lasix Avoid hypotension Add SGLT to inhibitors once renal function stabilizes
[2022-02-06 12:07] LABS: Glucose,Whole Blood 149 mg/dL (70-110)
--- NOTE | 2022-02-06 13:03 | P.DS ---
Providers Date of admission: 02/02/22 22:20 Expected date of discharge: 02/06/22 Attending physician: Juve Alston MD Consults: 02/04/22 14:05 Consult Physician Routine Consulting Provider: Kimi Lucero Consult Reason/Comments: renal failure Do you want consulting provider notified?: Yes Primary care physician: [facility] Course: 76 year old male with RLS, CHF, DM 2 presenting to the ER due to progressive exertional shortness of breath, with minimal exertion at this point, with positive orthopnea, he noted gaining 30 lb over 2 weeks. He tries to actively drink a lot of water day and night in order to stay well hydrated. he is known to have CHF , but recalls a normal left heart cath november 2021. No coughing , fever, or chest pain , no nausea or vomiting ,or diarrhea , no abd pain , or GI bleeding . however he does report a sore on his bottom that usually bleeds. In the ED he was found to have acute anemia , BOZENA on possible CKD. Otherwise vital signs stable. CXR showed possible scattered opacities concerning for pneumonia , however ,he again, denies any cough or fever. Patient was admitted. Trocar system was checked and came back negative. He was not treated with antibiotics. He was started on Lasix IV, cardiology was consulted, echocardiogram was done and that showed concentric LVH with normal ejection fraction. Renal function improved with diuresis as well. Bilateral lower extremities edema improved. He was feeling better as well. He was also seen by nephrology in regards to his acute kidney injury on chronic kidney disease. Lisinopril was held initially but on discharge it was resumed at a lower dose. Nephrology recommended starting him on his SGLT 2 inhibitors. Upon discharge I decreased the Lantus dose from 40 units daily to 30 day. I started him on canagliflozin. Currently he is weak but he is able to handle himself at home. Home care was arranged. He will be discharged in a stable condition. He was instructed to follow-up with cardiology as well as nephrology in the offices. Time for discharge 35 min Patient Condition at Discharge: Good Plan - Discharge Summary Discharge Rx Participant: Yes New Discharge Prescriptions: New Canagliflozin [Invokana] 100 mg PO DAILY 30 Days #30 tab Furosemide [Lasix] 40 mg PO DAILY 30 Days #30 tab Insulin Detemir (Levemir) [Levemir] 30 unit SQ HS 30 Days #10 each Continue Finasteride [Proscar] 5 mg PO DAILY allopurinoL [Zyloprim] 300 mg PO HS Pramipexole [Mirapex] 1 mg PO TID Gabapentin [Neurontin] 300 mg PO TID PRN PRN Reason: Pain Aspirin 81 mg PO DAILY amLODIPine [Norvasc] 5 mg PO BID Sertraline [Zoloft] 50 mg PO BID traZODone HCL [Desyrel] 100 mg PO HS Vitamin B Complex 1 cap PO DAILY Levothyroxine Sodium [Synthroid] 100 mcg PO DAILY Cholecalciferol [Vitamin D3 (25 Mcg = 1000 Iu)] 25 mcg PO DAILY hydrALAZINE HCL [Apresoline] 100 mg PO BID HYDROcodone/APAP 10-325MG [Mayflower 10-325] 1 tab PO Q6HR PRN PRN Reason: Pain carvediloL [Coreg] 6.25 mg PO BID Discontinued Insulin Detemir [Levemir Flextouch Pen] 40 units SQ HS hydroCHLOROthiazide [Hydrodiuril] 25 mg PO DAILY 30 Days #30 tab lisinopriL 40 mg PO DAILY Amoxic-Pot Clav 875-125Mg [Augmentin 875-125] 1 tab PO BID Discharge Medication List Finasteride [Proscar] 5 mg PO DAILY 05/17/17 [History] allopurinoL [Zyloprim] 300 mg PO HS 05/17/17 [History] Pramipexole [Mirapex] 1 mg PO TID 02/17/21 [History] Sertraline [Zoloft] 50 mg PO BID 02/17/21 [History] Gabapentin [Neurontin] 300 mg PO TID PRN 04/19/21 [History] Vitamin B Complex 1 cap PO DAILY 04/19/21 [History] traZODone HCL [Desyrel] 100 mg PO HS 04/19/21 [History] Aspirin 81 mg PO DAILY 07/09/21 [History] Cholecalciferol [Vitamin D3 (25 Mcg = 1000 Iu)] 25 mcg PO DAILY 02/02/22 [History] HYDROcodone/APAP 10-325MG [Mayflower 10-325] 1 tab PO Q6HR PRN 02/02/22 [History] Levothyroxine Sodium [Synthroid] 100 mcg PO DAILY 02/02/22 [History] amLODIPine [Norvasc] 5 mg PO BID 02/02/22 [History] carvediloL [Coreg] 6.25 mg PO BID 02/02/22 [History] hydrALAZINE HCL [Apresoline] 100 mg PO BID 02/02/22 [History] Canagliflozin [Invokana] 100 mg PO DAILY 30 Days #30 tab 02/06/22 [Rx] Furosemide [Lasix] 40 mg PO DAILY 30 Days #30 tab 02/06/22 [Rx] Insulin Detemir (Levemir) [Levemir] 30 unit SQ HS 30 Days #10 each 02/06/22 [Rx] Follow up Appointment(s)/Referral(s): Kimi Lucero MD [STAFF PHYSICIAN] - 1 Week [facility], [NON-STAFF] - 1-2 Days ([facility] will call you to schedule your home care visits. ) Ena Clemons MD [STAFF PHYSICIAN] - 2 Weeks (Call to set up EGD/Colonoscopy for anemia) Suresh Ellis PAC [Primary Care Provider] - 1-2 days [facility] [NON-STAFF] - As Needed (Please contact the [place] [facility] to see if they have a shower chair. )
--- NOTE | 2022-02-06 13:36 | US ---
EXAMINATION TYPE: US kidneys/renal and bladder DATE OF EXAM: 02/06/2022 COMPARISON: CT 2020 CLINICAL HISTORY: ximena. Exam done portable EXAM MEASUREMENTS: Right Kidney: 9.5 x 4.5 x 4.6 cm Left Kidney: 10.2 x 5.5 x 4.4 cm Difficult and limited study due to patient body habitus and position of kidneys due to horseshoe ki dneys Right Kidney: No hydronephrosis or masses seen Left Kidney: No hydronephrosis or masses seen Bladder: mildly irregular posterior wall Bilateral Jets seen: no There is very limited evaluation of the right portion of the kidney. 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
== END 2022-02-06 17:18 | disposition home health service (06) | DRG 291 ==
LOC: EC 16:08 → 4SSUR 22:20
PROVIDERS: ADMIT Internal Medicine; ATTEND Internal Medicine
DX: I13.0 Hypertensive heart and chronic kidney disease with heart failure and stage 1 through stage 4 chronic kidney disease, or unspecified chronic kidney disease (principal); I50.33 Acute on chronic diastolic (congestive) heart failure; N17.9 Acute kidney failure, unspecified; D63.1 Anemia in chronic kidney disease; E11.22 Type 2 diabetes mellitus with diabetic chronic kidney disease; E11.40 Type 2 diabetes mellitus with diabetic neuropathy, unspecified; N18.32 Chronic kidney disease, stage 3b; Z79.4 Long term (current) use of insulin; G25.81 Restless legs syndrome; E78.5 Hyperlipidemia, unspecified; F32.A Depression, unspecified; F41.9 Anxiety disorder, unspecified; I25.10 Atherosclerotic heart disease of native coronary artery without angina pectoris; E07.9 Disorder of thyroid, unspecified; N42.9 Disorder of prostate, unspecified; M19.90 Unspecified osteoarthritis, unspecified site; Z79.82 Long term (current) use of aspirin; Z79.890 Hormone replacement therapy; Z79.899 Other long term (current) drug therapy; Z87.891 Personal history of nicotine dependence; Z86.010 Personal history of colon polyps; Z88.1 Allergy status to other antibiotic agents; Z88.8 Allergy status to other drugs, medicaments and biological substances
CPT/HCPCS: 36415; 71046; 76770; 80048; 80053; 82607; 82728; 82746; 83540; 83550; 83735; 83880; 84145; 84484; 85025; 85027; 85610; 85730; 87040; 87449; 93005; 93306; 94640; 94760; 96365; 99285

== ENCOUNTER 2022-03-31 06:05 | Day surgery (SDC) | payer MEDICARE, OTHER ==
[2022-03-30 11:35] VITALS: BMI 35.2
[2022-03-31] MEDS: LACTATED RINGERS 1,000 ML IV SCH ×2 (06:41→07:02)
[2022-03-31 06:45] VITALS: TEMP 96.6
[2022-03-31 06:49] LABS: Glucose,Whole Blood 144 mg/dL (70-110)
[2022-03-31] MEDS ORDERED: PROPOFOL 10 MG/ML 20 ML VIAL IV ONE (07:03)
[2022-03-31] MEDS ORDERED: LIDOCAINE 2% INJ 20 MG/ML (2 ML VIAL) ONE (07:03)
--- NOTE | 2022-03-31 07:35 | P.PCN ---
Date of Procedure: 03/31/22 Procedure(s) Performed: Brief history: Patient is a pleasant 76-year-old white scheduled for an elective upper endoscopy as well as colonoscopy as a part of evaluation of iron deficiency anemia. Patient states that he was recently noted to have a hemoglobin of 8.5 g/dL. He denies any GI symptoms. No rectal bleeding or melena. Procedure performed: Esophagogastroduodenoscopy with biopsy Colonoscopy with snare polypectomy Preoperative diagnosis: Iron deficiency anemia Anesthesia: MAC Procedure: After informed consent was obtained from the patient was brought into the endoscopy unit and IV sedation was administered by anesthesia under continuous monitoring. Initially upper endoscopy was done. The Olympus GF 160 video endoscope was inserted inserted into the mouth and esophagus intubated without any difficulty and was gradually advanced into the stomach and duodenum and carefully examined. The bulb and second part of the duodenum appeared normal. The scope was then withdrawn into the stomach adequately insufflated with air and upon careful examination the antrum and body, cardia and fundus appeared normal. The scope was then withdrawn into the esophagus. The GE junction was located at 40 cm to the incisors. It appeared regular with no erythema erosions or ulcerations. Rest of the esophagus appeared normal. Patient tolerated the procedure well. At this time the patient continued to remain sedation. Initial digital rectal examination was normal. Olympus CF 160 video colonoscope was then inserted into the rectum and gradually advanced to the cecum without any difficulty. Careful examination was performed as the scope was gradually being withdrawn. The prep was excellent. The cecum, ascending colon, appeared normal. In the hepatic flexure there was a 1 cm polyp removed by snare polypectomy. In the transverse colon there was a 5 mm and 1 cm polyp removed by snare polypectomy. In the sigmoid colon there was a 3 cm pancreatic polyp removed by snare polypectomy. Rest of the transverse colon, descending colon, sigmoid colon and rectum appeared normal. Retroflexion was performed in the rectum and no lesions were noted. Patient tolerated the procedure well. Impression: 1. Upper endoscopy revealed mild gastritis in the antrum as well as fundus of the stomach status post biopsies 2. Colonoscopy revealed: a) 1 cm hepatic flexure polyp status post polypectomy b) 5 mm 2 and 1 cm transverse colon polyp status post polypectomy c) 3 cm pedunculated sigmoid colon polyp status post polypectomy Recommendations: Findings of this examination were discussed with the patient as well as a family. He was advised to follow with the biopsy results. He was advised to follow with the biopsy results. If the biopsy results adenoma he can have a repeat colonoscopy in 3 years.
[2022-03-31 07:41] VITALS: RESP 16
[2022-03-31 07:54] VITALS: BP 125/68; PULSE 67
== END 2022-03-31 08:27 | disposition home or self-care (01) ==
LOC: ORWHC2ENDO 06:05
PROVIDERS: ATTEND Internal Medicine Gastroenterology
DX: K29.50 Unspecified chronic gastritis without bleeding (principal); D12.3 Benign neoplasm of transverse colon; D12.5 Benign neoplasm of sigmoid colon; D50.9 Iron deficiency anemia, unspecified; E11.40 Type 2 diabetes mellitus with diabetic neuropathy, unspecified; E78.5 Hyperlipidemia, unspecified; I10 Essential (primary) hypertension; E03.9 Hypothyroidism, unspecified; M19.90 Unspecified osteoarthritis, unspecified site; N40.0 Benign prostatic hyperplasia without lower urinary tract symptoms; G25.81 Restless legs syndrome; F41.9 Anxiety disorder, unspecified; F32.A Depression, unspecified; Z88.1 Allergy status to other antibiotic agents; Z87.19 Personal history of other diseases of the digestive system; Z88.0 Allergy status to penicillin; Z98.1 Arthrodesis status; Z79.899 Other long term (current) drug therapy; Z98.890 Other specified postprocedural states
CPT/HCPCS: 88305; 45385; 43239; J2704; J2001

== ENCOUNTER 2022-04-26 22:07 | Emergency (ER) | payer MEDICARE, OTHER ==
[2022-04-26 22:21] VITALS: TEMP 98.5
[2022-04-26] MEDS ORDERED: SODIUM CHLORIDE 0.9% 500 ML 500 ML IV STA (22:44)
[2022-04-26] MEDS ORDERED: HYDROmorphone 0.5 MG/0.5 ML SYRINGE IVP STA (22:44)
[2022-04-26 23:05] LABS: Basophils % (A) 0 %; Eosinophils # (A) 0.1 k/uL (0-0.7); Eosinophils % (A) 1 %; HCT 30.8 % (39.0-53.0); HGB 10.3 gm/dL (13.0-17.5); Lymphocytes # (A) 1.2 k/uL (1.0-4.8); Lymphocytes % (A) 13 %; MCH 29.4 pg (25.0-35.0); MCHC 33.3 g/dL (31.0-37.0); MCV 88.3 fL (80.0-100.0); Mean Platelet Volume 9.8; Monocytes # (A) 0.5 k/uL (0-1.0); Monocytes % (A) 6 %; Neutrophils # (A) 6.9 k/uL (1.3-7.7); Neutrophils % (A) 78 %; Platelet Count 178 k/uL (150-450); RBC 3.49 m/uL (4.30-5.90); RDW 15.3 % (11.5-15.5); WBC 8.9 k/uL (3.8-10.6)
[2022-04-26 23:15] LABS: Albumin 3.8 g/dL (3.5-5.0); Calcium 9.4 mg/dL (8.4-10.2); INR 0.9 (<1.2); Partial Thromboplastin Time 24.1 sec (22.0-30.0); Prothrombin Time 10.1 sec (9.0-12.0); Total Bilirubin 0.5 mg/dL (0.2-1.3); Total Protein 6.5 g/dL (6.3-8.2)
--- NOTE | 2022-04-26 23:17 | ED ---
General Adult HPI - General Chief complaint: Abdominal Pain Stated complaint: Nausea, Vomiting, Diarrhea Time Seen by Provider: 04/26/22 22:38 Source: patient, RN notes reviewed, old records reviewed Mode of arrival: EMS Limitations: no limitations - History of Present Illness Initial comments: 76-year-old male presenting for evaluation of abdominal pain, nausea. Symptoms have been present for the past 24-48 hours. Patient has had nausea without sig nificant vomiting. He's had a very poor appetite. He had left lower quadrant abdominal pain. He states that he had a bowel movement yesterday. No diarrhea. No fever. He did have an episode of lightheadedness and dizziness. No chest pain. No focal numbness or weakness. Chronic venous stasis in the lower extremities. - Related Data Home Medications Medication Instructions Recorded Confirmed Finasteride [Proscar] 5 mg PO DAILY 05/17/17 03/31/22 allopurinoL [Zyloprim] 300 mg PO HS 05/17/17 03/31/22 Pramipexole [Mirapex] 1 mg PO TID 02/17/21 03/31/22 Sertraline [Zoloft] 50 mg PO BID 02/17/21 03/31/22 Vitamin B Complex 1 cap PO DAILY 04/19/21 03/31/22 Aspirin 81 mg PO DAILY 07/09/21 03/31/22 Cholecalciferol [Vitamin D3 (25 25 mcg PO DAILY 02/02/22 03/31/22 Mcg = 1000 Iu)] HYDROcodone/APAP 10-325MG [[place] 1 tab PO Q6HR PRN 02/02/22 03/31/22 10-325] Levothyroxine Sodium [Synthroid] 100 mcg PO DAILY 02/02/22 03/31/22 amLODIPine [Norvasc] 5 mg PO BID 02/02/22 03/31/22 carvediloL [Coreg] 6.25 mg PO BID 02/02/22 03/31/22 hydrALAZINE HCL [Apresoline] 100 mg PO BID 02/02/22 03/31/22 Insulin Detemir (Levemir) [Levemir] 40 unit SQ HS 03/30/22 03/31/22 Pregabalin [Lyrica] 75 mg PO BID 03/30/22 03/31/22 Previous Rx's Medication Instructions Recorded Canagliflozin [Invokana] 100 mg PO DAILY 30 Days #30 tab 02/06/22 Furosemide [Lasix] 40 mg PO DAILY 30 Days #30 tab 02/06/22 Allergies Allergy/AdvReac Type Severity Reaction Status Date / Time enalaprilat [From Vasotec] Allergy felt weak, Verified 03/31/22 06:30 couldn't talk erythromycin base AdvReac Nausea & Verified 03/31/22 06:30 [From Erythrocin] Vomiting Review of Systems ROS Statement: Those systems with pertinent positive or pertinent negative responses have been documented in the HPI. ROS Other: All systems not noted in ROS Statement are negative. Past Medical History Past Medical History: Cancer, Diabetes Mellitus, Hyperlipidemia, Hypertension, Osteoarthritis (OA), Prostate Disorder, Thyroid Disorder Additional Past Medical History / Comment(s): skin cancer, neuropathy , restless legs History of Any Multi-Drug Resistant Organisms: None Reported Past Surgical History: Orthopedic Surgery Additional Past Surgical History / Comment(s): sinus sx. cancer removed lt ear. colonoscopy , 07-07-17 anterior cervical decompression/discectomy/fusion c3-4, c4-5 Past Anesthesia/Blood Transfusion Reactions: No Reported Reaction Past Psychological History: Anxiety, Depression Smoking Status: Former smoker - Past Family History Father Additional Family Medical History / Comment(s): aortic aneurysm Mother Family Medical History: Cancer Additional Family Medical History / Comment(s): pancreas cancer General Exam Limitations: no limitations General appearance: alert, in no apparent distress Head exam: Present: atraumatic, normocephalic Eye exam: Present: normal appearance, PERRL Neck exam: Present: normal inspection. Absent: tenderness, meningismus Respiratory exam: Present: normal lung sounds bilaterally. Absent: respiratory distress, wheezes Cardiovascular Exam: Present: regular rate, normal rhythm GI/Abdominal exam: Present: soft, distended, tenderness Extremities exam: Present: pedal edema (Erythema) Neurological exam: Present: alert, oriented X3, CN II-XII intact. Absent: motor sensory deficit Psychiatric exam: Present: normal affect, normal mood Skin exam: Present: warm, dry, intact. Absent: cyanosis, diaphoretic Course Vital Signs 04/26/22 04/26/22 22:10 22:31 Temperature 98.5 F 98.5 F Pulse Rate 72 71 Respiratory 16 16 Rate Blood Pressure 166/64 161/66 O2 Sat by Pulse 96 96 Oximetry EKG Findings - EKG Comments: EKG Findings:: EKG: Sinus rhythm rate of 71, MA interval 169, QRS duration 89, QTC [address] segment changes. - EKG Results: EKG: interpreted by [facility] Medical Decision Making - Medical Decision Making 76-year-old male with chief complaint of nausea and left lower quadrant abdominal pain. Pain is quite minimal at the time my evaluation. Patient mildly hypertensive but otherwise stable vitals. No fever. No cough no chest pain. Laboratory testing reveals normal white blood cell count, improved anemia with hemoglobin of 10. Chronic kidney disease which is stable, normal lactic acid. CT performed which shows chronic changes without acute process. Did reevaluate the patient, no vomiting, pain improved. Did offer observation for symptomatic treatment. Patient declines prefers discharge at this time. Strict return parameters were discussed. - Lab Data Result diagrams: 04/26/22 22:52 04/26/22 22:52 Lab Results 04/26/22 04/26/22 04/26/22 Range/Units 22:52 22:52 22:52 WBC 8.9 (3.8-10.6) k/uL RBC 3.49 L (4.30-5.90) m/uL Hgb 10.3 L (13.0-17.5) gm/dL Hct 30.8 L (39.0-53.0) % MCV 88.3 (80.0-100.0) fL MCH 29.4 (25.0-35.0) pg MCHC 33.3 (31.0-37.0) g/dL RDW 15.3 (11.5-15.5) % Plt Count 178 (150-450) k/uL MPV 9.8 Neutrophils % 78 % Lymphocytes % 13 % Monocytes % 6 % Eosinophils % 1 % Basophils % 0 % Neutrophils # 6.9 (1.3-7.7) k/uL Lymphocytes # 1.2 (1.0-4.8) k/uL Monocytes # 0.5 (0-1.0) k/uL Eosinophils # 0.1 (0-0.7) k/uL Basophils # 0.0 (0-0.2) k/uL PT 10.1 (9.0-12.0) sec INR 0.9 (<1.2) APTT 24.1 (22.0-30.0) sec Sodium 140 (137-145) mmol/L Potassium 4.0 (3.5-5.1) mmol/L Chloride 109 H (98-107) mmol/L Carbon Dioxide 24 (22-30) mmol/L Anion Gap 7 mmol/L BUN 25 H (9-20) mg/dL Creatinine 1.54 H (0.66-1.25) mg/dL Est GFR (CKD-EPI)AfAm 51 (>60 ml/min/1.73 sqM) Est GFR (CKD-EPI)NonAf 44 (>60 ml/min/1.73 sqM) Glucose 156 H (74-99) mg/dL Plasma Lactic Acid Michel (0.7-2.0) mmol/L Calcium 9.4 (8.4-10.2) mg/dL Total Bilirubin 0.5 (0.2-1.3) mg/dL AST 33 (17-59) U/L ALT 22 (4-49) U/L Alkaline Phosphatase 70 (38-126) U/L Total Protein 6.5 (6.3-8.2) g/dL Albumin 3.8 (3.5-5.0) g/dL Amylase 117 H (30-110) U/L Lipase 221 (23-300) U/L 04/26/22 Range/Units 22:52 WBC (3.8-10.6) k/uL RBC (4.30-5.90) m/uL Hgb (13.0-17.5) gm/dL Hct (39.0-53.0) % MCV (80.0-100.0) fL MCH (25.0-35.0) pg MCHC (31.0-37.0) g/dL RDW (11.5-15.5) % Plt Count (150-450) k/uL MPV Neutrophils % % Lymphocytes % % Monocytes % % Eosinophils % % Basophils % % Neutrophils # (1.3-7.7) k/uL Lymphocytes # (1.0-4.8) k/uL Monocytes # (0-1.0) k/uL Eosinophils # (0-0.7) k/uL Basophils # (0-0.2) k/uL PT (9.0-12.0) sec INR (<1.2) APTT (22.0-30.0) sec Sodium (137-145) mmol/L Potassium (3.5-5.1) mmol/L Chloride (98-107) mmol/L Carbon Dioxide (22-30) mmol/L Anion Gap mmol/L BUN (9-20) mg/dL Creatinine (0.66-1.25) mg/dL Est GFR (CKD-EPI)AfAm (>60 ml/min/1.73 sqM) Est GFR (CKD-EPI)NonAf (>60 ml/min/1.73 sqM) Glucose (74-99) mg/dL Plasma Lactic Acid Michel 1.3 (0.7-2.0) mmol/L Calcium (8.4-10.2) mg/dL Total Bilirubin (0.2-1.3) mg/dL AST (17-59) U/L ALT (4-49) U/L Alkaline Phosphatase (38-126) U/L Total Protein (6.3-8.2) g/dL Albumin (3.5-5.0) g/dL Amylase (30-110) U/L Lipase (23-300) U/L Disposition Clinical Impression: Abdominal pain, Nausea & vomiting Disposition: HOME SELF-CARE Condition: Fair Instructions (If sedation given, give patient instructions): Abdominal Pain (ED), Acute Nausea and Vomiting (ED) Is patient prescribed a controlled substance at d/c from ED?: No Referrals: None,Stated [Primary Care Provider] - 1-2 days Time of Disposition: 23:47
--- NOTE | 2022-04-26 23:34 | CT ---
EXAMINATION TYPE: CT abdomen pelvis wo con DATE OF EXAM: 04/26/2022 COMPARISON: 04/20/2021 HISTORY: LLQ pain CT DLP: 1203.4 mGycm Automated exposure control for dose reduction was used. Images obtained from the diaphragm to the floor the pelvis with no contrast. There are small calcified granuloma left lower lobe. Lung bases are clear of consolidation. There is minimal subsegmental atelectasis left lung base. Heart size is fairly normal. No pericardial effusion . Liver spleen and stomach pancreas appear intact. The gallbladder is intact. The bile ducts are not di lated. There is increased density in the posterior gallbladder that could be gallstones. There is no adrenal mass. 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 Th ere is a 2 mm calculus in the lower pole of the left kidney. There is a 6 mm calculus lower pole left kidney. No retroperitoneal adenopathy. No hydronephrosis. Bladder distends smoothly. No inguinal her adiel. No free fluid in the pelvis. No pelvic mass. Appendix is posterior and appears normal. There is no mesenteric edema. No ascites or free air. No sign of a bowel obstruction. The lumbar vertebrae have normal alignment. There is degenerative disc space narrowing at L3-4 and L4 -5 with spurring. No compression fracture. The posterior elements are intact. The hip joints are inta ct. Sacroiliac joints are intact. . IMPRESSION: Nonobstructing left renal calculi. Small gallstones. No dilated ducts. No significant change compared to old exam.
[2022-04-26] MEDS ORDERED: ONDANSETRON 4 MG ODT STARTER PACK 2 TAB BTL PO STA (23:51)
[2022-04-27 00:15] VITALS: BP 152/71; PULSE 74; RESP 15
== END 2022-04-27 00:15 | disposition home or self-care (01) ==
LOC: EC 22:07
DX: R10.32 Left lower quadrant pain (principal); R11.2 Nausea with vomiting, unspecified; E11.9 Type 2 diabetes mellitus without complications; I10 Essential (primary) hypertension; E78.5 Hyperlipidemia, unspecified; M19.90 Unspecified osteoarthritis, unspecified site; E07.9 Disorder of thyroid, unspecified; F41.9 Anxiety disorder, unspecified; F32.A Depression, unspecified; Z88.8 Allergy status to other drugs, medicaments and biological substances; Z88.1 Allergy status to other antibiotic agents; Z79.82 Long term (current) use of aspirin; Z79.4 Long term (current) use of insulin; Z79.84 Long term (current) use of oral hypoglycemic drugs; Z79.890 Hormone replacement therapy; Z79.899 Other long term (current) drug therapy
CPT/HCPCS: 36415; 93005; 80053; 82150; 83605; 83690; 85025; 85610; 85730; 87040; 74176; 99284; 96374; J1170

== ENCOUNTER 2023-02-13 09:30 | Inpatient (IN) | payer MEDICARE, OTHER ==
[2023-02-13] MEDS ORDERED: SODIUM CHLORIDE 0.9% 500 ML 500 ML IV STA (10:29)
--- NOTE | 2023-02-13 10:33 | ED ---
General Adult HPI - General Chief complaint: Fall Stated complaint: Fall Time Seen by Provider: 02/13/23 10:15 Source: patient, RN notes reviewed, old records reviewed Mode of arrival: EMS Limitations: no limitations - History of Present Illness Initial comments: This is a 77-year-old male presents emergency department stating he fell twice today once from a standing position once he slid out of his wheelchair. Patient states he did hurt his left upper leg and right hip. Patient states he fell because he was weak not because he tripped he just felt weak in both legs and was unable to keep standing. Patient denies hitting his head or neck. Patient denies any upper extremity pain denies any chest back or abdomen pain. Patient denies any recent fever chills or cough per patient denies any chest pain difficult breathing shortest breath per patient denies abdominal pain patient denies nausea vomiting diarrhea. - Related Data Home Medications Medication Instructions Recorded Confirmed Finasteride [Proscar] 5 mg PO DAILY 05/17/17 03/31/22 allopurinoL [Zyloprim] 300 mg PO HS 05/17/17 03/31/22 Pramipexole [Mirapex] 1 mg PO TID 02/17/21 03/31/22 Sertraline [Zoloft] 50 mg PO BID 02/17/21 03/31/22 Vitamin B Complex 1 cap PO DAILY 04/19/21 03/31/22 Aspirin 81 mg PO DAILY 07/09/21 03/31/22 Cholecalciferol [Vitamin D3 (25 25 mcg PO DAILY 02/02/22 03/31/22 Mcg = 1000 Iu)] HYDROcodone/APAP 10-325MG [[place] 1 tab PO Q6HR PRN 02/02/22 03/31/22 10-325] Levothyroxine Sodium [Synthroid] 100 mcg PO DAILY 02/02/22 03/31/22 amLODIPine [Norvasc] 5 mg PO BID 02/02/22 03/31/22 carvediloL [Coreg] 6.25 mg PO BID 02/02/22 03/31/22 hydrALAZINE HCL [Apresoline] 100 mg PO BID 02/02/22 03/31/22 Insulin Detemir (Levemir) [Levemir] 40 unit SQ HS 10/17/22 10/18/22 Pregabalin [Lyrica] 75 mg PO BID 03/30/22 03/31/22 Previous Rx's Medication Instructions Recorded Canagliflozin [Invokana] 100 mg PO DAILY 30 Days #30 tab 02/06/22 Furosemide [Lasix] 40 mg PO DAILY 30 Days #30 tab 02/06/22 Ondansetron Odt [Zofran Odt] 4 mg PO Q8HR PRN #10 tab 04/26/22 Allergies Allergy/AdvReac Type Severity Reaction Status Date / Time enalaprilat [From Vasotec] Allergy felt weak, Verified 02/13/23 09:38 couldn't talk erythromycin base AdvReac Nausea & Verified 02/13/23 09:38 [From Erythrocin] Vomiting Review of Systems ROS Statement: Those systems with pertinent positive or pertinent negative responses have been documented in the HPI. ROS Other: All systems not noted in ROS Statement are negative. Past Medical History Past Medical History: Cancer, Diabetes Mellitus, Hyperlipidemia, Hypertension, Osteoarthritis (OA), Prostate Disorder, Thyroid Disorder Additional Past Medical History / Comment(s): skin cancer, neuropathy , restless legs History of Any Multi-Drug Resistant Organisms: None Reported Past Surgical History: Orthopedic Surgery Additional Past Surgical History / Comment(s): sinus sx. cancer removed lt ear. colonoscopy , 07-07-17 anterior cervical decompression/discectomy/fusion c3-4, c4-5 Past Anesthesia/Blood Transfusion Reactions: No Reported Reaction Past Psychological History: Anxiety, Depression Smoking Status: Former smoker Past Alcohol Use History: None Reported Past Drug Use History: None Reported - Past Family History Father Additional Family Medical History / Comment(s): aortic aneurysm Mother Family Medical History: Cancer Additional Family Medical History / Comment(s): pancreas cancer General Exam - General Exam Comments Initial Comments: GENERAL: Patient is well-developed and well-nourished. Patient is nontoxic and well- hydrated and is in mild distress. ENT: Neck is soft and supple. No significant lymphadenopathy is noted. Oropharynx is clear. Moist mucous membranes. Neck has full range of motion without eliciting any pain. EYES: The sclera were anicteric and conjunctiva were pink and moist. Extraocular movements were intact and pupils were equal round and reactive to light. Eyelids were unremarkable. PULMONARY: Unlabored respirations. Good breath sounds bilaterally. No audible rales rhonchi or wheezing was noted. CARDIOVASCULAR: There is a regular rate and rhythm without any murmurs gallops or rubs. ABDOMEN: Soft and nontender with normal bowel sounds. SKIN: Skin is clear with no lesions or rashes and otherwise unremarkable. NEUROLOGIC: Patient is alert and oriented x3. Cranial nerves II through XII are grossly intact. Motor and sensory are also intact. Normal speech, volume and content. Symmetrical smile. MUSCULOSKELETAL: Normal extremities with adequate strength and full range of motion. Patient has some pain with external rotation of the right hip. Patient also has pain on the left lateral upper thigh LYMPHATICS: No significant lymphadenopathy is noted PSYCHIATRIC: Normal psychiatric evaluation. Limitations: no limitations Course Vital Signs 02/13/23 02/13/23 02/13/23 09:34 11:00 12:30 Temperature 98.1 F Pulse Rate 71 70 70 Respiratory 16 18 17 Rate Blood Pressure 174/72 169/66 130/67 O2 Sat by Pulse 96 97 Oximetry Medical Decision Making - Medical Decision Making EKG was interpreted by me. EKG shows a sinus rhythm at 70 bpm AK interval 203 QRS is 104 QT interval 386 QTC is 407 per patient's EKG shows no ST segment elevation or depression. Was pt. sent in by a medical professional or institution (, PA, BORDER MEASURER, urgent care, hospital, or penitentiary...) When possible be specific @ -No Did you speak to anyone other than the patient for history (EMS, parent, family, police, friend...)? What history was obtained from this source @ -No Did you review nursing and triage notes (agree or disagree)? Why? @ -I reviewed and agree with nursing and triage notes Were old charts reviewed (outside hosp., previous admission, EMS record, old EKG, old radiological studies, urgent care reports/EKG's, penitentiary records)? Report findings @ -I reviewed prior lab work in prior charts and this patient Differential Diagnosis (chest pain, altered mental status, abdominal pain women, abdominal pain men, vaginal bleeding, weakness, fever, dyspnea, syncope, headache, dizziness, GI bleed, back pain, seizure, CVA, palpatations, mental health, musculoskeletal)? @ -Differential Weakness: Hypoglycemia, shock, sepsis, hyponatremia, anemia, infection, MA, ETOH, adverse medicine reaction, overdose, stroke, this is not meant to be an all-inclusive list. EKG interpreted by me (3pts min.). @ -As above X-rays interpreted by me (1pt min.). @ -Chest x-ray shows no acute abnormality. X-ray of the pelvis shows no acute abnormality. X-ray of bilateral hip shows no acute abnormality. CT interpreted by me (1pt min.). @ -None done U/S interpreted by me (1pt. min.). @ -None done What testing was considered but not performed or refused? (CT, X-rays, U/S, labs)? Why? @ -None What meds were considered but not given or refused? Why? @ -None Did you discuss the management of the patient with other professionals (professionals i.e. , PA, BORDER MEASURER, lab, RT, psych nurse, social worker psychiatric, admiralty lawyer, teacher, fourth officer, rn case manager)? Give summary @ -I spoke with the [facility]ist agreed to admit the patient Was smoking cessation discussed for >3mins.? @ -No Was critical care preformed (if so, how long)? @ -No Were there social determinants of health that impacted care today? How? (Homelessness, low income, unemployed, alcoholism, drug addiction, transportation, low edu. Level, literacy, decrease access to med. care, alf, rehab)? @ -No Was there de-escalation of care discussed even if they declined (Discuss DNR or withdrawal of care, Hospice)? DNR status @ -No What co-morbidities impacted this encounter? (DM, HTN, Smoking, COPD, CAD, Cancer, CVA, ARF, Chemo, Hep., AIDS, mental health diagnosis, sleep apnea, morbid obesity)? @ -None Was patient admitted / discharged? Hospital course, mention meds given and route, prescriptions, significant lab abnormalities, going to OR and other pertinent info. @ -Patient's hemoglobin was 8.5 which was lower than the last in April which was 10.4. Patient still was too weak to get up and ambulate and so I spoke with [facility] agreed to admit the patient to the patient and I repeat hemoglobins every 6 hours. Undiagnosed new problem with uncertain prognosis? @ -No Drug Therapy requiring intensive monitoring for toxicity (Heparin, Nitro, Insulin, Cardizem)? @ -No Were any procedures done? @ -No Diagnosis/symptom? @ -Generalized weakness Acute, or Chronic, or Acute on Chronic? @ -Acute Uncomplicated (without systemic symptoms) or Complicated (systemic symptoms)? @ -Complicated Side effects of treatment? @ -No Exacerbation, Progression, or Severe Exacerbation? @ -No Poses a threat to life or bodily function? How? (Chest pain, [place], MA, pneumonia, PE, COPD, DKA, ARF, appy, cholecystitis, CVA, Diverticulitis, Homicidal, Suicidal, threat to staff... and all critical care pts) @ -No Diagnosis/symptom? @ -Anemia Acute, or Chronic, or Acute on Chronic? @ -Acute Uncomplicated (without systemic symptoms) or Complicated (systemic symptoms)? @ -Complicated Side effects of treatment? @ -none Exacerbation, Progression, or Severe Exacerbation] @ -no Poses a threat to life or bodily function? @ -Yes this can lead to poor perfusion and hypoxia and they can lead to - Lab Data Result diagrams: 02/13/23 10:42 02/13/23 10:42 Lab Results 02/13/23 02/13/23 02/13/23 Range/Units 10:42 10:42 10:42 WBC 9.7 (3.8-10.6) k/uL RBC 2.75 L (4.30-5.90) m/uL Hgb 8.5 L (13.0-17.5) gm/dL Hct 26.0 L (39.0-53.0) % MCV 94.8 (80.0-100.0) fL MCH 31.0 (25.0-35.0) pg MCHC 32.7 (31.0-37.0) g/dL RDW 16.2 H (11.5-15.5) % Plt Count 160 (150-450) k/uL MPV 10.2 Neutrophils % 79 % Lymphocytes % 10 % Monocytes % 6 % Eosinophils % 3 % Basophils % 0 % Neutrophils # 7.6 (1.3-7.7) k/uL Lymphocytes # 1.0 (1.0-4.8) k/uL Monocytes # 0.6 (0-1.0) k/uL Eosinophils # 0.3 (0-0.7) k/uL Basophils # 0.0 (0-0.2) k/uL Hypochromasia Slight Anisocytosis Slight PT 9.4 (9.0-12.0) sec INR 0.9 (<1.2) APTT 26.5 (22.0-30.0) sec Sodium 138 (137-145) mmol/L Potassium 5.6 H (3.5-5.1) mmol/L Chloride 112 H (98-107) mmol/L Carbon Dioxide 17 L (22-30) mmol/L Anion Gap 9 mmol/L BUN 56 H (9-20) mg/dL Creatinine 2.47 H (0.66-1.25) mg/dL Est GFR (CKD-EPI)AfAm 28 (>60 ml/min/1.73 sqM) Est GFR (CKD-EPI)NonAf 25 (>60 ml/min/1.73 sqM) Glucose 208 H (74-99) mg/dL Plasma Lactic Acid Michel (0.7-2.0) mmol/L Calcium 8.7 (8.4-10.2) mg/dL Magnesium 2.1 (1.6-2.3) mg/dL Total Bilirubin 0.3 (0.2-1.3) mg/dL AST 20 (17-59) U/L ALT 18 (4-49) U/L Alkaline Phosphatase 76 (38-126) U/L Troponin I (0.000-0.034) ng/mL Total Protein 5.8 L (6.3-8.2) g/dL Albumin 3.1 L (3.5-5.0) g/dL Urine Color Urine Appearance (Clear) Urine pH (5.0-8.0) Ur Specific [place] (1.001-1.035) Urine Protein (Negative) Urine Glucose (UA) (Negative) Urine Ketones (Negative) Urine Blood (Negative) Urine Nitrite (Negative) Urine Bilirubin (Negative) Urine Urobilinogen (<2.0) mg/dL Ur Leukocyte Esterase (Negative) Urine RBC (0-5) /hpf Urine WBC (0-5) /hpf Urine Mucus (None) /hpf 02/13/23 02/13/23 02/13/23 Range/Units 10:42 11:14 11:34 WBC (3.8-10.6) k/uL RBC (4.30-5.90) m/uL Hgb (13.0-17.5) gm/dL Hct (39.0-53.0) % MCV (80.0-100.0) fL MCH (25.0-35.0) pg MCHC (31.0-37.0) g/dL RDW (11.5-15.5) % Plt Count (150-450) k/uL MPV Neutrophils % % Lymphocytes % % Monocytes % % Eosinophils % % Basophils % % Neutrophils # (1.3-7.7) k/uL Lymphocytes # (1.0-4.8) k/uL Monocytes # (0-1.0) k/uL Eosinophils # (0-0.7) k/uL Basophils # (0-0.2) k/uL Hypochromasia Anisocytosis PT (9.0-12.0) sec INR (<1.2) APTT (22.0-30.0) sec Sodium (137-145) mmol/L Potassium (3.5-5.1) mmol/L Chloride (98-107) mmol/L Carbon Dioxide (22-30) mmol/L Anion Gap mmol/L BUN (9-20) mg/dL Creatinine (0.66-1.25) mg/dL Est GFR (CKD-EPI)AfAm (>60 ml/min/1.73 sqM) Est GFR (CKD-EPI)NonAf (>60 ml/min/1.73 sqM) Glucose (74-99) mg/dL Plasma Lactic Acid Michel 0.9 (0.7-2.0) mmol/L Calcium (8.4-10.2) mg/dL Magnesium (1.6-2.3) mg/dL Total Bilirubin (0.2-1.3) mg/dL AST (17-59) U/L ALT (4-49) U/L Alkaline Phosphatase (38-126) U/L Troponin I <0.012 (0.000-0.034) ng/mL Total Protein (6.3-8.2) g/dL Albumin (3.5-5.0) g/dL Urine Color Colorless Urine Appearance Clear (Clear) Urine pH 5.5 (5.0-8.0) Ur Specific [place] 1.010 (1.001-1.035) Urine Protein 2+ H (Negative) Urine Glucose (UA) 1+ H (Negative) Urine Ketones Negative (Negative) Urine Blood Negative (Negative) Urine Nitrite Negative (Negative) Urine Bilirubin Negative (Negative) Urine Urobilinogen <2.0 (<2.0) mg/dL Ur Leukocyte Esterase Negative (Negative) Urine RBC 3 (0-5) /hpf Urine WBC 1 (0-5) /hpf Urine Mucus Rare H (None) /hpf Disposition Clinical Impression: Generalized weakness, Renal insufficiency, Anemia Disposition: ADMITTED IP TO THIS HOSP Referrals: None,Stated [REFERRING] - 1-2 days Time of Disposition: 13:51
--- NOTE | 2023-02-13 11:06 | XR ---
EXAMINATION TYPE: XR chest 2V DATE OF EXAM: 02/13/2023 10:57 AM COMPARISON: Chest radiographs from 02/03/2022 TECHNIQUE: XR chest 2V Frontal and lateral views of the chest. CLINICAL INDICATION:Male, 77 years old with history of Weakness; FINDINGS: Lungs/Pleura: There is no evidence of pleural effusion, focal consolidation, or pneumothorax. Chronic prominent reticular lung markings bilaterally. Pulmonary vascularity: Unremarkable. Heart/mediastinum: Cardiomediastinal silhouette is enlarged and stable. Atherosclerotic calcificatio ns are seen in the aorta. Musculoskeletal: No acute osseous pathology. Findings compatible with DISH. IMPRESSION: Chronic changes without acute pulmonary process. No significant change from prior.
--- NOTE | 2023-02-13 11:07 | XR ---
EXAMINATION TYPE: XR Hip Bilateral and AP pelvis DATE OF EXAM: 02/13/2023 10:57 AM INDICATION: Patient age:Male; 77 years old; Reason for study: Trauma; [facility]. COMPARISON: CT abdomen pelvis 04/26/2022 TECHNIQUE: Both hips were examined in the frontal and lateral projections and a AP pelvis. FINDINGS: No evidence of any acute osseous pathology, joint dislocation, or soft tissue swelling. Mil d medial joint space narrowing with acetabular sclerosis involving both hips. Degenerative changes of the visualized lumbar spine. Multiple pelvic phleboliths. IMPRESSION: 1. No acute osseous pathology. 2. Mild osteoarthritic changes of both hips.
[2023-02-13 11:26] LABS: Anisocytosis Slight; Basophils % (A) 0 %; Eosinophils # (A) 0.3 k/uL (0-0.7); Eosinophils % (A) 3 %; HGB 8.5 gm/dL (13.0-17.5); Hypochromasia Slight; Lymphocytes % (A) 10 %; MCHC 32.7 g/dL (31.0-37.0); MCV 94.8 fL (80.0-100.0); Mean Platelet Volume 10.2; Monocytes # (A) 0.6 k/uL (0-1.0); Monocytes % (A) 6 %; Neutrophils # (A) 7.6 k/uL (1.3-7.7); Neutrophils % (A) 79 %; Platelet Count 160 k/uL (150-450); RBC 2.75 m/uL (4.30-5.90); RDW 16.2 % (11.5-15.5); WBC 9.7 k/uL (3.8-10.6)
[2023-02-13 11:30] LABS: Appearance,Urine Clear (Clear); Bilirubin,Urine Negative (Negative); Blood,Urine Negative (Negative); Color,Urine Colorless; Glucose,Urine (UA) 1+ (Negative); Ketones,Urine Negative (Negative); Leukocyte Esterase,Urine Negative (Negative); Mucus,Urine Rare /hpf; Nitrite,Urine Negative (Negative); PH, Urine 5.5 (5.0-8.0); Protein,Urine 2+ (Negative); RBC,Urine 3 /hpf (0-5); Urobilinogen,Urine <2.0 mg/dL (<2.0); WBC,Urine 1 /hpf (0-5)
[2023-02-13 11:36] LABS: INR 0.9 (<1.2); Partial Thromboplastin Time 26.5 sec (22.0-30.0); Prothrombin Time 9.4 sec (9.0-12.0)
[2023-02-13 11:42] LABS: ALT 18 U/L (4-49); AST 20 U/L (17-59); African American GFR (CKD) 28 (>60 ml/min/1.73 sqM); Albumin 3.1 g/dL (3.5-5.0); Alkaline Phosphatase 76 U/L (38-126); Anion Gap 9 mmol/L; Blood Urea Nitrogen 56 mg/dL (9-20); Calcium 8.7 mg/dL (8.4-10.2); Carbon Dioxide 17 mmol/L (22-30); Chloride 112 mmol/L (98-107); Glucose 208 mg/dL (74-99); Magnesium 2.1 mg/dL (1.6-2.3); Non-African American GFR(CKD) 25 (>60 ml/min/1.73 sqM); Potassium 5.6 mmol/L (3.5-5.1); Sodium 138 mmol/L (137-145); Total Bilirubin 0.3 mg/dL (0.2-1.3); Total Protein 5.8 g/dL (6.3-8.2)
[2023-02-13] MEDS ORDERED: SODIUM CHLORIDE 0.9% 1,000 ML IV ONE (13:51)
[2023-02-13] MEDS ORDERED: HYDROmorphone 0.5 MG/0.5 ML SYRINGE IVP STA (13:53)
[2023-02-13 15:11] LABS: Anisocytosis Slight; Basophils % (A) 0 %; Eosinophils # (A) 0.3 k/uL (0-0.7); Eosinophils % (A) 3 %; HCT 25.4 % (39.0-53.0); HGB 8.5 gm/dL (13.0-17.5); Hypochromasia Slight; Lymphocytes % (A) 10 %; MCH 31.5 pg (25.0-35.0); MCHC 33.3 g/dL (31.0-37.0); MCV 94.8 fL (80.0-100.0); Mean Platelet Volume 10.9; Monocytes # (A) 0.8 k/uL (0-1.0); Monocytes % (A) 8 %; Neutrophils # (A) 7.5 k/uL (1.3-7.7); Neutrophils % (A) 77 %; Platelet Count 142 k/uL (150-450); RBC 2.68 m/uL (4.30-5.90); RDW 16.6 % (11.5-15.5); WBC 9.7 k/uL (3.8-10.6)
[2023-02-13] MEDS ORDERED: DEXTROSE 50% SYRINGE 50 ML IVP PRN ×2 (15:29)
[2023-02-13 17:02] LABS: Glucose,Whole Blood 162 mg/dL (70-110)
[2023-02-13] MEDS: carvediloL 12.5 MG TAB PO SCH (18:26)
[2023-02-13] MEDS: HYDROcodone/APAP 10-325MG 1 EACH TAB PO PRN (18:26)
[2023-02-13] MEDS: INSULIN ASPART (NovoLOG) 100 UNIT/ML VIAL SQ SCH ×2 (18:27→20:31)
[2023-02-13 20:02] LABS: Glucose,Whole Blood 270 mg/dL (70-110)
[2023-02-13] MEDS: amLODIPine 5 MG TAB PO SCH (20:30)
[2023-02-13] MEDS: PREGABALIN 75 MG CAP PO SCH (20:30)
[2023-02-13] MEDS: SERTRALINE 50 MG TAB PO SCH (20:30)
[2023-02-13] MEDS: hydrALAZINE HCL 50 MG TAB PO SCH (20:30)
[2023-02-13] MEDS: TAMSULOSIN 0.4 MG CAP.ER.24H PO SCH (20:31)
[2023-02-13] MEDS: allopurinoL 300 MG TAB PO SCH (20:31)
[2023-02-13] MEDS: NYSTATIN 100,000 UNIT/GM POWD 15 GM TOPICAL SCH (20:51)
[2023-02-13] MEDS: PRAMIPEXOLE 1 MG TAB PO SCH (20:52)
[2023-02-13 20:59] LABS: African American GFR (CKD) 31 (>60 ml/min/1.73 sqM); Blood Urea Nitrogen 53 mg/dL (9-20); Calcium 8.9 mg/dL (8.4-10.2); Carbon Dioxide 19 mmol/L (22-30); Glucose 255 mg/dL (74-99); Non-African American GFR(CKD) 27 (>60 ml/min/1.73 sqM)
[2023-02-13 21:00] LABS: Anion Gap 7 mmol/L; Chloride 112 mmol/L (98-107); Potassium 5.5 mmol/L (3.5-5.1); Sodium 138 mmol/L (137-145)
[2023-02-13 21:19] LABS: Anisocytosis Slight; Basophils % (A) 0 %; Eosinophils # (A) 0.2 k/uL (0-0.7); Eosinophils % (A) 2 %; HCT 26.7 % (39.0-53.0); HGB 8.7 gm/dL (13.0-17.5); Hypochromasia Slight; Lymphocytes # (A) 0.8 k/uL (1.0-4.8); Lymphocytes % (A) 9 %; MCH 30.9 pg (25.0-35.0); MCHC 32.6 g/dL (31.0-37.0); MCV 94.7 fL (80.0-100.0); Mean Platelet Volume 10.8; Monocytes # (A) 0.6 k/uL (0-1.0); Monocytes % (A) 7 %; Neutrophils # (A) 7.1 k/uL (1.3-7.7); Neutrophils % (A) 81 %; Platelet Count 152 k/uL (150-450); RBC 2.82 m/uL (4.30-5.90); RDW 16.1 % (11.5-15.5); WBC 8.8 k/uL (3.8-10.6)
[2023-02-14] MEDS: HEPARIN SODIUM,PORCINE 5,000 UNIT/ML 1 ML VIAL SQ SCH ×4 (00:03→23:49)
[2023-02-14] MEDS ORDERED: INSULIN REGULAR 100 UNIT/ML VIAL (IV) IV ONE (01:54)
[2023-02-14] MEDS ORDERED: DEXTROSE 50% SYRINGE 50 ML IVP STA (01:55)
--- NOTE | 2023-02-14 01:58 | P.HPIM ---
History of Present Illness H&P Date: 02/13/23 Chief Complaint: Fall Patient is a 77-year-old male with a known history of hypertension, hyperlipidemia, chronic kidney disease stage III, osteoarthritis, BPH, hypothyroidism, anxiety/depression prior history of smoking presents to ER with complaints of fall x2. once from a standing position once he slid out of his wheelchair. Patient states he did hurt his left upper leg and right hip. Patient states that he felt very weak and his legs gave away and unable to keep standing. Denies any hitting his head. No complaints of nausea vomiting or diarrhea. Denies any dysuria or hematuria. Patient is complaining of left upper extremity and back pain and leg pain. Denies any recent illnesses. No fever no chest pain no cough or sputum production. No chest pain or shortness of breath. EKG showed sinus rhythm. Chest x-ray showed chronic changes without acute pulmonary process. No significant change from prior. Hip pelvis x-ray showed no acute osseous pathology. Mild osteoarthritic changes both hips. Laboratory pressure WBC 9.7 hemoglobin 8.5 and platelets 160 RDW 16.2 Sodium 138 potassium 5.6 chloride 112 bicarb is 17 BUN 56 and creatinine 2.47 and blood sugar is 208 lactic acid nine 0.9 troponin x1-11 years and not elevated. Magnesium 2.1 Urinalysis showed 2+ protein and 1+ glucose leukocyte esterase negative. Albumin 3.1. Review of Systems Constitutional: Patient denies any fever or chills . Complains of generalized w eakness. Abdomen: Patient denied any nausea or vomiting or abd. pain Cardiovascular: Patient denies any chest pain or short of breath no palpitations. Respiratory: patient denied any cough . no sputum production. No shortness of breath Neurologic: Patient denied any numbness or tingling headache. Musculoskeletal: Patient denies any complaints of joint swelling or deformity. Left sided pelvis pain and shoulder pain. Skin: Negative Psychiatric: Negative Endocrine: No heat or cold intolerance. No recent weight gain. Genitourinary: No dysuria or hematuria. All other 14 point ROS negative except the above Past Medical History Past Medical History: Cancer, Diabetes Mellitus, Hyperlipidemia, Hypertension, Osteoarthritis (OA), Prostate Disorder, Renal Disease, Thyroid Disorder Additional Past Medical History / Comment(s): Falls at home 02/13/23. skin cancer, neuropathy , restless legs History of Any Multi-Drug Resistant Organisms: None Reported Past Surgical History: Orthopedic Surgery Additional Past Surgical History / Comment(s): sinus sx. cancer removed lt ear. colonoscopy , 07-07-17 anterior cervical decompression/discectomy/fusion c3-4, c4-5 Past Anesthesia/Blood Transfusion Reactions: No Reported Reaction Past Psychological History: Anxiety, Depression Additional Psychological History / Comment(s): pt lives with in single level home marely has a ramp or 3 steps thru back door, pt has a wheeled walker, glucometer, shower chair and a w/c if needed. Smoking Status: Former smoker Past Alcohol Use History: None Reported Additional Past Alcohol Use History / Comment(s): stated smoking at age 14 and quit smoking -age 39 SMOKED 1 PPD Past Drug Use History: None Reported Additional Drug Use History / Comment(s): RARE USE-INSRUCTED TO HOLD 24 HOURS PRIOR TO PROCEDURE - Past Family History Father Additional Family Medical History / Comment(s): aortic aneurysm Mother Family Medical History: Cancer Additional Family Medical History / Comment(s): pancreas cancer Medications and Allergies Home Medications Medication Instructions Recorded Confirmed Type Finasteride [Proscar] 5 mg PO DAILY 05/17/17 02/13/23 History allopurinoL [Zyloprim] 300 mg PO HS 05/17/17 02/13/23 History Pramipexole [Mirapex] 1 mg PO TID 02/17/21 02/13/23 History Sertraline [Zoloft] 50 mg PO BID 02/17/21 02/13/23 History Aspirin 81 mg PO DAILY 07/09/21 02/13/23 History Cholecalciferol [Vitamin D3 (25 25 mcg PO DAILY 02/02/22 02/13/23 History Mcg = 1000 Iu)] HYDROcodone/APAP 10-325MG [[place] 1 tab PO TID PRN 02/02/22 02/13/23 History 10-325] amLODIPine [Norvasc] 5 mg PO BID 02/02/22 02/13/23 History hydrALAZINE HCL [Apresoline] 100 mg PO BID 02/02/22 02/13/23 History Famotidine [Pepcid] 20 mg PO DAILY 02/13/23 02/13/23 History Ferrous Sulfate [Feosol] 325 mg PO DAILY 02/13/23 02/13/23 History Levothyroxine Sodium [Synthroid] 175 mcg PO DAILY 02/13/23 02/13/23 History Pregabalin [Lyrica] 150 mg PO BID 02/13/23 02/13/23 History Spironolactone [Aldactone] 12.5 mg PO DAILY 02/13/23 02/13/23 History Tamsulosin HCl [Flomax] 0.4 mg PO HS 02/13/23 02/13/23 History carvediloL [Coreg] 12.5 mg PO BID 02/13/23 02/13/23 History Allergies Allergy/AdvReac Type Severity Reaction Status Date / Time enalaprilat [From Vasotec] Allergy felt weak, Verified 02/13/23 14:13 couldn't talk erythromycin base AdvReac Nausea & Verified 02/13/23 14:13 [From Erythrocin] Vomiting Physical Exam Vitals: Vital Signs Temp Pulse Pulse Resp BP BP Pulse Ox 02/13/23 15:20 97.7 F 61 18 172/74 98 02/13/23 14:55 62 18 148/70 96 02/13/23 13:59 73 18 181/82 100 02/13/23 12:30 70 17 130/67 02/13/23 11:00 70 18 169/66 97 02/13/23 09:34 98.1 F 71 16 174/72 96 Intake and Output 02/13/23 02/13/23 02/13/23 06:59 14:59 22:59 Output Total 400 Balance -400 Output: Urine 400 Other: Voiding Method Diaper External Catheter Weight 108.862 kg PHYSICAL EXAMINATION: Patient is lying in the bed comfortably, no acute distress, awake alert and or iented.. HEENT: Normocephalic. Neck is supple. Pupils reactive. Nostrils clear. Oral cavity is moist. Neck reveals no JVD, carotid bruits, or thyromegaly. CHEST EXAMINATION: Trachea is central. Symmetrical expansion. Lung jackson clear to auscultation and percussion. CARDIAC: Normal S1, S2 with no gallops. No murmurs ABDOMEN: Soft. Bowel sounds present. Nontender. No organomegaly. No abdominal bruits. Extremities: Bilateral lower extremity trace edema. No clubbing or cyanosis Neurologically awake, alert, oriented x3 with well-coordinated movements. No focal deficits noted Skin: No rash or skin lesions. Psychiatric: Coperative. Nonsuicidal, Musculoskeletal: No joint swelling or deformity. Normal range of motion. Results CBC & Chem 7: 02/14/23 05:34 02/14/23 05:34 Labs: Abnormal Lab Results - Last 24 Hours (Table) 02/13/23 02/13/23 02/13/23 Range/Units 10:42 10:42 11:14 RBC 2.75 L (4.30-5.90) m/uL Hgb 8.5 L (13.0-17.5) gm/dL Hct 26.0 L (39.0-53.0) % RDW 16.2 H (11.5-15.5) % Plt Count (150-450) k/uL Potassium 5.6 H (3.5-5.1) mmol/L Chloride 112 H (98-107) mmol/L Carbon Dioxide 17 L (22-30) mmol/L BUN 56 H (9-20) mg/dL Creatinine 2.47 H (0.66-1.25) mg/dL Glucose 208 H (74-99) mg/dL POC Glucose (mg/dL) (70-110) mg/dL Total Protein 5.8 L (6.3-8.2) g/dL Albumin 3.1 L (3.5-5.0) g/dL Urine Protein 2+ H (Negative) Urine Glucose (UA) 1+ H (Negative) Urine Mucus Rare H (None) /hpf 02/13/23 02/13/23 Range/Units 14:38 17:01 RBC 2.68 L (4.30-5.90) m/uL Hgb 8.5 L (13.0-17.5) gm/dL Hct 25.4 L (39.0-53.0) % RDW 16.6 H (11.5-15.5) % Plt Count 142 L (150-450) k/uL Potassium (3.5-5.1) mmol/L Chloride (98-107) mmol/L Carbon Dioxide (22-30) mmol/L BUN (9-20) mg/dL Creatinine (0.66-1.25) mg/dL Glucose (74-99) mg/dL POC Glucose (mg/dL) 162 H (70-110) mg/dL Total Protein (6.3-8.2) g/dL Albumin (3.5-5.0) g/dL Urine Protein (Negative) Urine Glucose (UA) (Negative) Urine Mucus (None) /hpf Thrombosis Risk Factor Assmnt - DVT/VTE Prophylaxis DVT/VTE Prophylaxis: Pharmacologic Prophylaxis ordered - Choose All That Apply Any of the Below Risk Factors Present?: Yes Each Factor Represents 1 point: Obesity (BMI >25), Swollen legs (current) Each Risk Factor Represents 3 Points: Age 75 years or older Thrombosis Risk Factor Assessment Total Risk Factor Score: 5 Thrombosis Risk Factor Assessment Level: High Risk Assessment and Plan Assessment: Status post fall x2. Patient fell while going to the bathroom and also slipped while sitting on the chair, landed on his left pelvic and shoulder region. Acute on chronic kidney disease status 3B Metabolic acidosis Anemia of chronic disease with history of iron deficiency Hyperkalemia secondary to acute kidney injury and also placement on Aldactone Chronic HFpEF Hypertension Hyperlipidemia Diabetes type 2 [id number] Hypothyroidism GERD/depression Prior history of smoking DVT prophylaxis with heparin subcu Plan: Patient was continued on IV hydration due to acute kidney injury. Patient will be given D50/insulin IV and sodium bicarb for hyperkalemia and follow-up repeat BMP. Continue with home medications and follow-up renal function. Nephrology was consulted. Current pain management. Follow-up closely. Time with Patient: Greater than 30
[2023-02-14] MEDS: HYDROcodone/APAP 10-325MG 1 EACH TAB PO PRN ×3 (03:09→16:58)
[2023-02-14] MEDS: LEVOTHYROXINE 88 MCG TAB PO SCH (05:34)
[2023-02-14 07:21] LABS: Glucose,Whole Blood 114 mg/dL (70-110)
[2023-02-14] MEDS: INSULIN ASPART (NovoLOG) 100 UNIT/ML VIAL SQ SCH ×4 (07:31→20:48)
[2023-02-14] MEDS: carvediloL 12.5 MG TAB PO SCH ×2 (08:15→16:58)
[2023-02-14] MEDS: FAMOTIDINE 20 MG TAB PO SCH (08:15)
[2023-02-14] MEDS: hydrALAZINE HCL 50 MG TAB PO SCH ×2 (08:15→20:47)
[2023-02-14] MEDS: SERTRALINE 50 MG TAB PO SCH ×2 (08:15→20:47)
[2023-02-14] MEDS: ASPIRIN 81 MG PO SCH (08:15)
[2023-02-14] MEDS: FINASTERIDE 5 MG TAB PO SCH (08:15)
[2023-02-14] MEDS: PREGABALIN 75 MG CAP PO SCH ×2 (08:15→20:48)
[2023-02-14] MEDS: amLODIPine 5 MG TAB PO SCH ×2 (08:15→20:47)
[2023-02-14] MEDS: PRAMIPEXOLE 1 MG TAB PO SCH ×3 (08:17→20:47)
[2023-02-14] MEDS: NYSTATIN 100,000 UNIT/GM POWD 15 GM TOPICAL SCH ×2 (08:17→20:48)
[2023-02-14 09:04] LABS: Basophils # (A) 0.04 X 10*3/uL (0.00-0.10); Basophils % (A) 0.5 %; Eosinophils # (A) 0.22 X 10*3/uL (0.04-0.35); HGB 7.8 d/dL (13.0-17.0); Lymphocytes # (A) 1.06 X 10*3/uL (0.90-5.00); Lymphocytes % (A) 14.3 %; MCH 29.9 pg (27.0-32.0); MCHC 31.2 d/dL (32.0-37.0); MCV 95.8 FL (80.0-97.0); Mean Platelet Volume 12.7 FL (9.5-12.2); Monocytes # (A) 0.94 X 10*3/uL (0.20-1.00); Monocytes % (A) 12.7 %; NRBC Per 100 WBC 0 X 10*3/uL (0.00-0.01); Neutrophils # (A) 5.13 X 10*3/uL (1.80-7.70); Platelet Count 165 X 10*3/uL (140-440); RBC 2.61 X 10*6/uL (4.40-5.60); RDW 16.4 % (11.5-14.5); WBC 7.43 X 10*3/uL (4.50-10.00)
[2023-02-14 09:40] LABS: BUN/Creat Ratio 22.41 Ratio (12.00-20.00); Blood Urea Nitrogen 49.3 mg/dL (9.0-27.0); Calcium 8.7 mg/dL (8.7-10.3); Chloride 113 mmol/L (96-109); Glucose 125 mg/dL (70-110); Potassium 5.6 mmol/L (3.5-5.5); Sodium 140 mmol/L (135-145)
[2023-02-14] MEDS ORDERED: FUROSEMIDE 10 MG/ML 4 ML VIAL IV STA (11:40)
[2023-02-14] MEDS ORDERED: SODIUM ZIRCONIUM CYCLOSILICATE 10 GM PACKET PO ONE (11:40)
[2023-02-14] MEDS ORDERED: SODIUM BICARB 8.4% 50 ML SYR (1 MEQ/ML) IV STA (11:41)
--- NOTE | 2023-02-14 11:43 | P.NPCON ---
History of Present Illness - Reason for Consult acute renal failure, chronic renal failure - History of Present Illness Reason for consultation: Acute kidney injury on chronic kidney disease History of present illness: Patient is a 77-year-old male seen in renal consultation for acute kidney injury on chronic kidney disease. Patient has chronic kidney disease stage IIIB with baseline creatinine near 2. Creatinine was 2.3-1 admission and is 2.2 today. Patient came to the hospital due to generalized weakness and fall. Patient states he initially fell at his house and called EMS who helped him up. Patient states he then slid also chair at all EMS again and was subsequently brought to the hospital. Patient denies losing any consciousness. Patient states she simply felt weak and his legs gave out. Patient states he's off diabetes meds now but was diabetic for several years. Denies use of nonsteroidals. Denies vomiting or diarrhea. Denies history of cardiac disease. Potassium level is slightly on the higher side. Patient was on spironolactone outpatient. Patient does have edema in the lower extremity. Orthostatic vitals noted. Standing blood pressure not low. Vital signs are stable. General: No acute distress. HEENT: Head exam is unremarkable. LUNGS: No audible rhonchi or wheezes. HEART: Rate and Rhythm are regular. ABDOMEN: Nontender. EXTREMITITES: 1+ edema. Erythema noted. Past Medical History Past Medical History: Cancer, Diabetes Mellitus, Hyperlipidemia, Hypertension, Osteoarthritis (OA), Prostate Disorder, Renal Disease, Thyroid Disorder Additional Past Medical History / Comment(s): Falls at home 02/13/23. skin cancer, neuropathy , restless legs History of Any Multi-Drug Resistant Organisms: None Reported Past Surgical History: Orthopedic Surgery Additional Past Surgical History / Comment(s): sinus sx. cancer removed lt ear. colonoscopy , 07-07-17 anterior cervical decompression/discectomy/fusion c3-4, c4-5 Past Anesthesia/Blood Transfusion Reactions: No Reported Reaction Past Psychological History: Anxiety, Depression Additional Psychological History / Comment(s): pt lives with in single level home marely has a ramp or 3 steps thru back door, pt has a wheeled walker, glucometer, shower chair and a w/c if needed. Smoking Status: Former smoker Past Alcohol Use History: None Reported Additional Past Alcohol Use History / Comment(s): stated smoking at age 14 and quit smoking -age 39 SMOKED 1 PPD Past Drug Use History: None Reported Additional Drug Use History / Comment(s): RARE USE-INSRUCTED TO HOLD 24 HOURS PRIOR TO PROCEDURE - Past Family History Father Additional Family Medical History / Comment(s): aortic aneurysm Mother Family Medical History: Cancer Additional Family Medical History / Comment(s): pancreas cancer Medications and Allergies Home Medications Medication Instructions Recorded Confirmed Type Finasteride [Proscar] 5 mg PO DAILY 05/17/17 02/13/23 History allopurinoL [Zyloprim] 300 mg PO HS 05/17/17 02/13/23 History Pramipexole [Mirapex] 1 mg PO TID 02/17/21 02/13/23 History Sertraline [Zoloft] 50 mg PO BID 02/17/21 02/13/23 History Aspirin 81 mg PO DAILY 07/09/21 02/13/23 History Cholecalciferol [Vitamin D3 (25 25 mcg PO DAILY 02/02/22 02/13/23 History Mcg = 1000 Iu)] HYDROcodone/APAP 10-325MG [[place] 1 tab PO TID PRN 02/02/22 02/13/23 History 10-325] amLODIPine [Norvasc] 5 mg PO BID 02/02/22 02/13/23 History hydrALAZINE HCL [Apresoline] 100 mg PO BID 02/02/22 02/13/23 History Famotidine [Pepcid] 20 mg PO DAILY 02/13/23 02/13/23 History Ferrous Sulfate [Feosol] 325 mg PO DAILY 02/13/23 02/13/23 History Levothyroxine Sodium [Synthroid] 175 mcg PO DAILY 02/13/23 02/13/23 History Pregabalin [Lyrica] 150 mg PO BID 02/13/23 02/13/23 History Spironolactone [Aldactone] 12.5 mg PO DAILY 02/13/23 02/13/23 History Tamsulosin HCl [Flomax] 0.4 mg PO HS 02/13/23 02/13/23 History carvediloL [Coreg] 12.5 mg PO BID 02/13/23 02/13/23 History Allergies Allergy/AdvReac Type Severity Reaction Status Date / Time enalaprilat [From Vasotec] Allergy felt weak, Verified 02/13/23 14:13 couldn't talk erythromycin base AdvReac Nausea & Verified 02/13/23 14:13 [From Erythrocin] Vomiting Physical Exam Vitals: Vital Signs Temp Pulse Pulse Resp BP BP BP 02/14/23 11:00 129/58 164/56 02/14/23 10:59 98.1 F 60 18 02/14/23 07:18 97.7 F 60 18 02/14/23 00:58 98.1 F 61 16 02/13/23 20:00 18 02/13/23 19:03 97.5 F L 69 18 02/13/23 15:20 97.7 F 61 18 02/13/23 14:55 62 18 148/70 02/13/23 13:59 73 18 181/82 02/13/23 12:30 70 17 130/67 BP Pulse Ox 02/14/23 11:00 147/66 02/14/23 10:59 97 02/14/23 07:18 159/70 96 02/14/23 00:58 159/67 96 02/13/23 20:00 02/13/23 19:03 163/64 96 02/13/23 15:20 172/74 98 02/13/23 14:55 96 02/13/23 13:59 100 02/13/23 12:30 Intake and Output 02/13/23 02/14/23 02/14/23 22:59 06:59 14:59 Output Total 1300 700 Balance -1300 -700 Output: Urine 1300 700 Other: Voiding Method Diaper Diaper External Catheter External Catheter Results - Lab Results Most recent lab results Calcium 8.7 mg/dL (8.7-10.3) 02/14/23 05:34 Magnesium 2.1 mg/dL (1.6-2.3) 02/13/23 10:42 02/14/23 05:34 02/14/23 05:34 Assessment and Plan Plan: Assessment: 1. Mild acute kidney injury mostly prerenal. Creatinine 2.3-1 admission and is stable at 2.2 today. 2. Chronic kidney disease stage III. Baseline creatinine near 2 secondary to diabetic kidney disease. Serologies have been negative in the past. 3. Edema. 4. Status post fall. 5. Hyperkalemia secondary to acute kidney injury, acidosis and Aldactone. 6. Anemia of chronic kidney disease. Rule out iron deficiency. 7. Metabolic acidosis secondary to chronic kidney disease. Plan: Lasix 40 mg IV once today. Encouraged oral intake. Check iron studies. Avoid nephrotoxins. Continue to monitor renal function and urine output. Lokelma 10 g once today. 2 g sodium bicarb IV push now. Add oral bicarb. Hold aldactone. Thank you for the consultation. I will continue to follow this patient with you during his hospital stay.
[2023-02-14 11:46] LABS: Glucose,Whole Blood 161 mg/dL (70-110)
[2023-02-14] MEDS: SODIUM BICARBONATE TAB 650 MG TAB PO SCH ×2 (12:15→20:47)
[2023-02-14 17:07] LABS: Glucose,Whole Blood 206 mg/dL (70-110)
[2023-02-14 17:20] VITALS: BMI 35.4
[2023-02-14 19:11] LABS: % Iron Saturation 16.27 (15.00-50.00)
[2023-02-14 20:20] LABS: Glucose,Whole Blood 223 mg/dL (70-110)
[2023-02-14] MEDS: TAMSULOSIN 0.4 MG CAP.ER.24H PO SCH (20:47)
[2023-02-14] MEDS: allopurinoL 300 MG TAB PO SCH (20:47)
--- NOTE | 2023-02-14 23:37 | P.PN ---
Subjective Progress Note Date: 02/14/23 Patient is a 77-year-old male with a known history of hypertension, hyperlipidemia, chronic kidney disease stage III, osteoarthritis, BPH, hypothyroidism, anxiety/depression prior history of smoking presents to ER with complaints of fall x2. once from a standing position once he slid out of his wheelchair. Patient states he did hurt his left upper leg and right hip. Patient states that he felt very weak and his legs gave away and unable to keep standing. Denies any hitting his head. No complaints of nausea vomiting or diarrhea. Denies any dysuria or hematuria. Patient is complaining of left up per extremity and back pain and leg pain. Denies any recent illnesses. No fever no chest pain no cough or sputum production. No chest pain or shortness of breath. EKG showed sinus rhythm. Chest x-ray showed chronic changes without acute pulmonary process. No significant change from prior. Hip pelvis x-ray showed no acute osseous pathology. Mild osteoarthritic changes both hips. Laboratory pressure WBC 9.7 hemoglobin 8.5 and platelets 160 RDW 16.2 Sodium 138 potassium 5.6 chloride 112 bicarb is 17 BUN 56 and creatinine 2.47 and blood sugar is 208 lactic acid nine 0.9 troponin x1-11 years and not elevated. Magnesium 2.1 Urinalysis showed 2+ protein and 1+ glucose leukocyte esterase negative. Albumin 3.1. 02/14/2023 Patient is currently sitting in the chair. Awake alert and oriented x3. Still complains of left sided pelvic pain and requesting pain medications. No complaints of chest pain or shortness of breath. Patient was given IV hydration. Renal function did come back to baseline around 2.2. Otherwise hemoglobin is 7.8. Potassium level is still elevated at 5.6. Patient was seen by nephrology. Was given a dose of sodium bicarbonate and Lokelma. No complaints of nausea or vomiting. Tolerating oral diet. No cough or sputum production. Current medications reviewed. Objective - Vital Signs Vital signs: Vital Signs Temp 97.3 F L 02/14/23 19:11 Pulse 57 L 02/14/23 19:11 Resp 17 02/14/23 19:11 BP 116/56 02/14/23 19:11 Pulse Ox 94 L 02/14/23 19:11 FiO2 Intake & Output 02/14/23 02/14/23 02/15/23 06:59 18:59 06:59 Output Total 1300 1900 Balance -1300 -1900 Weight 108.862 kg Output: Urine 1300 1900 Other: Voiding Method Diaper Diaper External Catheter External Catheter - Exam PHYSICAL EXAMINATION: Patient is lying in the bed comfortably, no acute distress, awake alert and oriented.. HEENT: Normocephalic. Neck is supple. Pupils reactive. Nostrils clear. Oral cavity is moist. Neck reveals no JVD, carotid bruits, or thyromegaly. CHEST EXAMINATION: Trachea is central. Symmetrical expansion. Lung jackson clear to auscultation and percussion. CARDIAC: Normal S1, S2 with no gallops. No murmurs ABDOMEN: Soft. Bowel sounds present. Nontender. No organomegaly. No abdominal bruits. Extremities: Bilateral lower extremity trace edema. No clubbing or cyanosis Neurologically awake, alert, oriented x3 with well-coordinated movements. No focal deficits noted Skin: No rash or skin lesions. Psychiatric: Coperative. Nonsuicidal, Musculoskeletal: No joint swelling or deformity. Normal range of motion. - Labs CBC & Chem 7: 02/14/23 05:34 02/14/23 05:34 Labs: Abnormal Lab Results - Last 24 Hours (Table) 02/13/23 02/13/23 02/13/23 Range/Units 19:59 20:23 20:23 RBC 2.82 L (4.30-5.90) m/uL Hgb 8.7 L (13.0-17.5) gm/dL Hct 26.7 L (39.0-53.0) % MCHC (32.0-37.0) d/dL RDW 16.1 H (11.5-15.5) % MPV (9.5-12.2) FL Lymphocytes # 0.8 L (1.0-4.8) k/uL Potassium 5.5 H (3.5-5.1) mmol/L Chloride 112 H (98-107) mmol/L Carbon Dioxide 19 L (22-30) mmol/L BUN 53 H (9-20) mg/dL Creatinine 2.32 H (0.66-1.25) mg/dL Est GFR (CKD-EPI) (>=60) BUN/Creatinine Ratio (12.00-20.00) Ratio Glucose 255 H (74-99) mg/dL POC Glucose (mg/dL) 270 H (70-110) mg/dL Hemoglobin A1c (<=6.0) % Iron (65-175) UG/DL Transferrin (204.0-354.0) mg/dL Ferritin (22.0-322.0) ng/mL 02/14/23 02/14/23 02/14/23 Range/Units 05:34 05:34 05:34 RBC 2.61 L (4.30-5.90) m/uL Hgb 7.8 L (13.0-17.5) gm/dL Hct 25.0 L (39.0-53.0) % MCHC 31.2 L (32.0-37.0) d/dL RDW 16.4 H (11.5-15.5) % MPV 12.7 H (9.5-12.2) FL Lymphocytes # (1.0-4.8) k/uL Potassium 5.6 H (3.5-5.1) mmol/L Chloride 113 H (98-107) mmol/L Carbon Dioxide 19.0 L (22-30) mmol/L BUN 49.3 H (9-20) mg/dL Creatinine 2.2 H (0.66-1.25) mg/dL Est GFR (CKD-EPI) 30 L (>=60) BUN/Creatinine Ratio 22.41 H (12.00-20.00) Ratio Glucose 125 H (74-99) mg/dL POC Glucose (mg/dL) (70-110) mg/dL Hemoglobin A1c 7.0 H (<=6.0) % Iron (65-175) UG/DL Transferrin (204.0-354.0) mg/dL Ferritin (22.0-322.0) ng/mL 02/14/23 02/14/23 02/14/23 Range/Units 05:34 07:20 11:45 RBC (4.30-5.90) m/uL Hgb (13.0-17.5) gm/dL Hct (39.0-53.0) % MCHC (32.0-37.0) d/dL RDW (11.5-15.5) % MPV (9.5-12.2) FL Lymphocytes # (1.0-4.8) k/uL Potassium (3.5-5.1) mmol/L Chloride (98-107) mmol/L Carbon Dioxide (22-30) mmol/L BUN (9-20) mg/dL Creatinine (0.66-1.25) mg/dL Est GFR (CKD-EPI) (>=60) BUN/Creatinine Ratio (12.00-20.00) Ratio Glucose (74-99) mg/dL POC Glucose (mg/dL) 114 H 161 H (70-110) mg/dL Hemoglobin A1c (<=6.0) % Iron 41 L (65-175) UG/DL Transferrin 180.0 L (204.0-354.0) mg/dL Ferritin 370.0 H (22.0-322.0) ng/mL 02/14/23 Range/Units 17:06 RBC (4.30-5.90) m/uL Hgb (13.0-17.5) gm/dL Hct (39.0-53.0) % MCHC (32.0-37.0) d/dL RDW (11.5-15.5) % MPV (9.5-12.2) FL Lymphocytes # (1.0-4.8) k/uL Potassium (3.5-5.1) mmol/L Chloride (98-107) mmol/L Carbon Dioxide (22-30) mmol/L BUN (9-20) mg/dL Creatinine (0.66-1.25) mg/dL Est GFR (CKD-EPI) (>=60) BUN/Creatinine Ratio (12.00-20.00) Ratio Glucose (74-99) mg/dL POC Glucose (mg/dL) 206 H (70-110) mg/dL Hemoglobin A1c (<=6.0) % Iron (65-175) UG/DL Transferrin (204.0-354.0) mg/dL Ferritin (22.0-322.0) ng/mL Assessment and Plan Assessment: Status post fall x2. Patient fell while going to the bathroom and also slipped while sitting on the chair, landed on his left pelvic and shoulder region. Acute on chronic kidney disease status 3B Metabolic acidosis Anemia of chronic disease with history of iron deficiency Hyperkalemia secondary to acute kidney injury and also placement on Aldactone Chronic HFpEF Hypertension Hyperlipidemia Diabetes type 2 [id number] Hypothyroidism GERD/depression Prior history of smoking DVT prophylaxis with heparin subcu Plan: Patient was continued on IV hydration due to acute kidney injury. Patient will be given D50/insulin IV and sodium bicarb for hyperkalemia and Potassium level is still elevated at 5.6. Patient was seen by nephrology. Was given a dose of sodium bicarbonate and Lokelma. Continue with home medications and follow-up renal function. Nephrology was consulted. continued pain management. Follow-up closely. Time with Patient: Greater than 30
[2023-02-15] MEDS: HYDROcodone/APAP 10-325MG 1 EACH TAB PO PRN ×3 (03:59→21:11)
[2023-02-15] MEDS: LEVOTHYROXINE 88 MCG TAB PO SCH (05:47)
[2023-02-15 07:46] LABS: Glucose,Whole Blood 136 mg/dL (70-110)
[2023-02-15] MEDS: INSULIN ASPART (NovoLOG) 100 UNIT/ML VIAL SQ SCH ×4 (07:59→21:11)
[2023-02-15] MEDS: PREGABALIN 75 MG CAP PO SCH ×2 (08:08→20:14)
[2023-02-15] MEDS: SODIUM BICARBONATE TAB 650 MG TAB PO SCH ×2 (08:08→20:14)
[2023-02-15] MEDS: PRAMIPEXOLE 1 MG TAB PO SCH ×3 (08:08→21:10)
[2023-02-15] MEDS: hydrALAZINE HCL 50 MG TAB PO SCH ×3 (08:08→21:11)
[2023-02-15] MEDS: ASPIRIN 81 MG PO SCH (08:08)
[2023-02-15] MEDS: amLODIPine 5 MG TAB PO SCH ×2 (08:08→20:14)
[2023-02-15] MEDS: SERTRALINE 50 MG TAB PO SCH ×2 (08:08→20:14)
[2023-02-15] MEDS: carvediloL 12.5 MG TAB PO SCH ×2 (08:08→17:21)
[2023-02-15] MEDS: HEPARIN SODIUM,PORCINE 5,000 UNIT/ML 1 ML VIAL SQ SCH ×3 (08:08→23:26)
[2023-02-15] MEDS: FINASTERIDE 5 MG TAB PO SCH (08:08)
[2023-02-15] MEDS: FAMOTIDINE 20 MG TAB PO SCH (08:08)
[2023-02-15] MEDS: NYSTATIN 100,000 UNIT/GM POWD 15 GM TOPICAL SCH ×2 (08:09→20:14)
[2023-02-15 09:44] LABS: African American GFR (CKD) 29 (>60 ml/min/1.73 sqM); Anion Gap 9 mmol/L; Blood Urea Nitrogen 49 mg/dL (9-20); Calcium 8.6 mg/dL (8.4-10.2); Carbon Dioxide 19 mmol/L (22-30); Chloride 109 mmol/L (98-107); Glucose 120 mg/dL (74-99); Magnesium 1.8 mg/dL (1.6-2.3); Non-African American GFR(CKD) 25 (>60 ml/min/1.73 sqM); Sodium 137 mmol/L (137-145)
--- NOTE | 2023-02-15 11:18 | P.PN ---
Subjective Patient is seen in follow-up for acute kidney injury on chronic kidney disease. Renal function slightly worse from diuresis. Edema improved from IV Lasix. No active complaints. Vital signs are stable. General: No acute distress. HEENT: Head exam is unremarkable. LUNGS: No audible rhonchi or wheezes. HEART: Rate and Rhythm are regular. ABDOMEN: Nontender. EXTREMITITES: Trace edema. Objective - Vital Signs Vital signs: Vital Signs Temp 98.5 F 02/15/23 07:42 Pulse 69 02/15/23 07:42 Resp 17 02/15/23 07:42 BP 153/61 02/15/23 09:29 Pulse Ox 94 L 02/15/23 07:42 FiO2 Intake & Output 02/14/23 02/15/23 02/15/23 18:59 06:59 18:59 Output Total 1900 2350 Balance -1900 -2350 Weight 108.862 kg Output: Urine 1900 2350 Other: Voiding Method Diaper Diaper Diaper External Catheter External Catheter External Catheter - Labs CBC & Chem 7: 02/14/23 05:34 02/15/23 07:19 Labs: Abnormal Lab Results - Last 24 Hours (Table) 02/14/23 02/14/23 02/14/23 Range/Units 05:34 11:45 17:06 Chloride (98-107) mmol/L Carbon Dioxide (22-30) mmol/L BUN (9-20) mg/dL Creatinine (0.66-1.25) mg/dL Glucose (74-99) mg/dL POC Glucose (mg/dL) 161 H 206 H (70-110) mg/dL Iron 41 L (65-175) UG/DL Transferrin 180.0 L (204.0-354.0) mg/dL Ferritin 370.0 H (22.0-322.0) ng/mL 02/14/23 02/15/23 02/15/23 Range/Units 20:18 07:19 07:44 Chloride 109 H (98-107) mmol/L Carbon Dioxide 19 L (22-30) mmol/L BUN 49 H (9-20) mg/dL Creatinine 2.44 H (0.66-1.25) mg/dL Glucose 120 H (74-99) mg/dL POC Glucose (mg/dL) 223 H 136 H (70-110) mg/dL Iron (65-175) UG/DL Transferrin (204.0-354.0) mg/dL Ferritin (22.0-322.0) ng/mL Assessment and Plan Plan: Assessment: 1. Mild acute kidney injury mostly prerenal. Creatinine 2.47 admission and is 2.44 today. 2. Chronic kidney disease stage III. Baseline creatinine near 2 secondary to diabetic kidney disease. Serologies have been negative in the past. 3. Edema. Improved with diuresis. 4. Status post fall. 5. Hyperkalemia secondary to acute kidney injury, acidosis and Aldactone. Better. 6. Anemia of chronic kidney disease. Iron deficiency noted. 7. Metabolic acidosis secondary to chronic kidney disease. On oral bicarb. Plan: Added oral Lasix 20 mg once daily. Encouraged oral intake. Add IV iron. Avoid nephrotoxins. Continue to monitor renal function and urine output. Increase hydralazine frequency to 3 times a day. Hold for systolic blood pressure less than 125.
[2023-02-15 12:00] LABS: Glucose,Whole Blood 163 mg/dL (70-110)
[2023-02-15] MEDS: SODIUM FERRIC GLUCONAT-SUCROSE 125 MG in SODIUM CHLORIDE 0.9% 100 ML IVPB SCH (12:09)
[2023-02-15 17:41] LABS: Glucose,Whole Blood 205 mg/dL (70-110)
[2023-02-15] MEDS: allopurinoL 300 MG TAB PO SCH (20:14)
[2023-02-15] MEDS: TAMSULOSIN 0.4 MG CAP.ER.24H PO SCH (20:14)
[2023-02-15 20:34] LABS: Glucose,Whole Blood 234 mg/dL (70-110)
--- NOTE | 2023-02-16 00:02 | P.PN ---
Subjective Progress Note Date: 02/15/23 Patient is a 77-year-old male with a known history of hypertension, hyperlipidemia, chronic kidney disease stage III, osteoarthritis, BPH, hypothyroidism, anxiety/depression prior history of smoking presents to ER with complaints of fall x2. once from a standing position once he slid out of his wheelchair. Patient states he did hurt his left upper leg and right hip. Patient states that he felt very weak and his legs gave away and unable to keep standing. Denies any hitting his head. No complaints of nausea vomiting or diarrhea. Denies any dysuria or hematuria. Patient is complaining of left up per extremity and back pain and leg pain. Denies any recent illnesses. No fever no chest pain no cough or sputum production. No chest pain or shortness of breath. EKG showed sinus rhythm. Chest x-ray showed chronic changes without acute pulmonary process. No significant change from prior. Hip pelvis x-ray showed no acute osseous pathology. Mild osteoarthritic changes both hips. Laboratory pressure WBC 9.7 hemoglobin 8.5 and platelets 160 RDW 16.2 Sodium 138 potassium 5.6 chloride 112 bicarb is 17 BUN 56 and creatinine 2.47 and blood sugar is 208 lactic acid nine 0.9 troponin x1-11 years and not elevated. Magnesium 2.1 Urinalysis showed 2+ protein and 1+ glucose leukocyte esterase negative. Albumin 3.1. 02/14/2023 Patient is currently sitting in the chair. Awake alert and oriented x3. Still complains of left sided pelvic pain and requesting pain medications. No complaints of chest pain or shortness of breath. Patient was given IV hydration. Renal function did come back to baseline around 2.2. Otherwise hemoglobin is 7.8. Potassium level is still elevated at 5.6. Patient was seen by nephrology. Was given a dose of sodium bicarbonate and Lokelma. No complaints of nausea or vomiting. Tolerating oral diet. No cough or sputum production. 02/15/2023 Patient is currently lying in the bed. Awake alert and oriented x3. Still having left-sided pain from fall. Patient is requiring assistance with walking. PT OT to be seen tomorrow. Patient was started on Lasix 20 mg daily. Other laboratory data showed BUN 49 creatinine 2.44 and bicarb is 19. Magnesium 1.8. Nephrology is on board. Current medications reviewed. Objective - Vital Signs Vital signs: Vital Signs Temp 98.3 F 02/15/23 11:51 Pulse 60 02/15/23 11:51 Resp 18 02/15/23 11:51 BP 145/68 02/15/23 11:51 Pulse Ox 95 02/15/23 11:51 FiO2 Intake & Output 02/14/23 02/15/23 02/15/23 18:59 06:59 18:59 Intake Total 100 Output Total 190 2350 Balance -1899 -2349 100 Weight 108.862 kg Intake: Intake, IV Titration 100 Amount Sodium Ferric Gluconat- 100 Sucrose 125 mg In Sodium Chloride 0.9% 100 ml @ 100 mls/hr IVPB DAILY [facility] Rx#:[id number] Output: Urine 18990 Other: Voiding Method Diaper Diaper Diaper External Catheter External Catheter External Catheter - Exam PHYSICAL EXAMINATION: Patient is lying in the bed comfortably, no acute distress, awake alert and oriented.. HEENT: Normocephalic. Neck is supple. Pupils reactive. Nostrils clear. Oral cavity is moist. Neck reveals no JVD, carotid bruits, or thyromegaly. CHEST EXAMINATION: Trachea is central. Symmetrical expansion. Lung jackson clear to auscultation and percussion. CARDIAC: Normal S1, S2 with no gallops. No murmurs ABDOMEN: Soft. Bowel sounds present. Nontender. No organomegaly. No abdominal bruits. Extremities: Bilateral lower extremity trace edema. No clubbing or cyanosis Neurologically awake, alert, oriented x3 with well-coordinated movements. No focal deficits noted Skin: No rash or skin lesions. Psychiatric: Coperative. Nonsuicidal, Musculoskeletal: No joint swelling or deformity. Normal range of motion. - Labs CBC & Chem 7: 02/21/23 07:17 02/21/23 07:17 Labs: Abnormal Lab Results - Last 24 Hours (Table) 02/14/23 02/14/23 02/15/23 Range/Units 05:34 20:18 07:19 Chloride 109 H (98-107) mmol/L Carbon Dioxide 19 L (22-30) mmol/L BUN 49 H (9-20) mg/dL Creatinine 2.44 H (0.66-1.25) mg/dL Glucose 120 H (74-99) mg/dL POC Glucose (mg/dL) 223 H (70-110) mg/dL Iron 41 L (65-175) UG/DL Transferrin 180.0 L (204.0-354.0) mg/dL Ferritin 370.0 H (22.0-322.0) ng/mL 02/15/23 02/15/23 02/15/23 Range/Units 07:44 11:59 17:39 Chloride (98-107) mmol/L Carbon Dioxide (22-30) mmol/L BUN (9-20) mg/dL Creatinine (0.66-1.25) mg/dL Glucose (74-99) mg/dL POC Glucose (mg/dL) 136 H 163 H 205 H (70-110) mg/dL Iron (65-175) UG/DL Transferrin (204.0-354.0) mg/dL Ferritin (22.0-322.0) ng/mL Assessment and Plan Assessment: Status post fall x2. Patient fell while going to the bathroom and also slipped while sitting on the chair, landed on his left pelvic and shoulder region. Acute on chronic kidney disease status 3B Metabolic acidosis Anemia of chronic disease with history of iron deficiency Hyperkalemia secondary to acute kidney injury and also placement on Aldactone Chronic HFpEF Hypertension Hyperlipidemia Diabetes type 2 oww-serizxr-brftsmvvd Hypothyroidism GERD/depression Prior history of smoking DVT prophylaxis with heparin subcu Plan: Patient was given a dose of sodium bicarbonate and Lokelma.Potassium levels normalized. Patient was also started on Lasix 20 mg daily. Increase water intake. Continue with home medications and follow-up renal function. Nephrology is on boars. continued pain management. PT OT consult and assess for rehab. Follow-up closely. Time with Patient: Greater than 30
[2023-02-16] MEDS: HYDROcodone/APAP 10-325MG 1 EACH TAB PO PRN ×4 (04:08→23:15)
[2023-02-16] MEDS: LEVOTHYROXINE 88 MCG TAB PO SCH (06:14)
[2023-02-16 07:20] LABS: Glucose,Whole Blood 104 mg/dL (70-110)
[2023-02-16] MEDS: INSULIN ASPART (NovoLOG) 100 UNIT/ML VIAL SQ SCH ×4 (07:34→20:49)
[2023-02-16 08:50] LABS: BUN/Creat Ratio 19.71 Ratio (12.00-20.00); Blood Urea Nitrogen 47.3 mg/dL (9.0-27.0); Calcium 8.8 mg/dL (8.7-10.3); Carbon Dioxide 21.8 mmol/L (21.6-31.8); Chloride 107 mmol/L (96-109); Glucose 95 mg/dL (70-110); Potassium 4.8 mmol/L (3.5-5.5); Sodium 140 mmol/L (135-145)
[2023-02-16] MEDS: FINASTERIDE 5 MG TAB PO SCH (09:03)
[2023-02-16] MEDS: SERTRALINE 50 MG TAB PO SCH ×2 (09:03→20:40)
[2023-02-16] MEDS: PREGABALIN 75 MG CAP PO SCH ×2 (09:03→20:41)
[2023-02-16] MEDS: FUROSEMIDE 20 MG TAB PO SCH (09:03)
[2023-02-16] MEDS: carvediloL 12.5 MG TAB PO SCH ×2 (09:03→16:59)
[2023-02-16] MEDS: amLODIPine 5 MG TAB PO SCH ×2 (09:04→20:40)
[2023-02-16] MEDS: ASPIRIN 81 MG PO SCH (09:04)
[2023-02-16] MEDS: HEPARIN SODIUM,PORCINE 5,000 UNIT/ML 1 ML VIAL SQ SCH ×3 (09:04→23:15)
[2023-02-16] MEDS: SODIUM BICARBONATE TAB 650 MG TAB PO SCH ×2 (09:04→20:40)
[2023-02-16] MEDS: SODIUM FERRIC GLUCONAT-SUCROSE 125 MG in SODIUM CHLORIDE 0.9% 100 ML IVPB SCH (09:04)
[2023-02-16] MEDS: FAMOTIDINE 20 MG TAB PO SCH (09:04)
[2023-02-16] MEDS: hydrALAZINE HCL 50 MG TAB PO SCH ×3 (09:04→20:40)
[2023-02-16] MEDS: PRAMIPEXOLE 1 MG TAB PO SCH ×3 (09:06→20:40)
[2023-02-16] MEDS: NYSTATIN 100,000 UNIT/GM POWD 15 GM TOPICAL SCH ×2 (09:06→20:41)
--- NOTE | 2023-02-16 10:09 | P.PN ---
Subjective Patient is seen in follow-up for acute kidney injury on chronic kidney disease. Renal function stable. Working with PT. Edema improved. No active complaints. Vital signs are stable. General: No acute distress. HEENT: Head exam is unremarkable. LUNGS: No audible rhonchi or wheezes. HEART: Rate and Rhythm are regular. ABDOMEN: Nontender. EXTREMITITES: Trace edema. Objective - Vital Signs Vital signs: Vital Signs Temp 97.6 F 02/16/23 02:10 Pulse 61 02/16/23 02:10 Resp 19 02/16/23 02:10 BP 149/62 02/16/23 02:10 Pulse Ox 93 L 02/16/23 02:10 FiO2 Intake & Output 02/15/23 02/16/23 02/16/23 18:59 06:59 18:59 Intake Total 100 1000 Output Total 1700 Balance 100 -700 Intake: Intake, IV Titration 100 Amount Sodium Ferric Gluconat- 100 Sucrose 125 mg In Sodium Chloride 0.9% 100 ml @ 100 mls/hr IVPB DAILY [facility] Rx#:[id number] Oral 1000 Output: Urine 1700 Other: Voiding Method Diaper Diaper External Catheter External Catheter - Labs CBC & Chem 7: 02/14/23 05:34 02/16/23 06:11 Labs: Abnormal Lab Results - Last 24 Hours (Table) 02/15/23 02/15/23 02/15/23 Range/Units 11:59 17:39 20:31 BUN (9.0-27.0) mg/dL Creatinine (0.6-1.5) mg/dL Est GFR (CKD-EPI) (>=60) POC Glucose (mg/dL) 163 H 205 H 234 H (70-110) mg/dL 02/16/23 Range/Units 06:11 BUN 47.3 H (9.0-27.0) mg/dL Creatinine 2.4 H (0.6-1.5) mg/dL Est GFR (CKD-EPI) 27 L (>=60) POC Glucose (mg/dL) (70-110) mg/dL Assessment and Plan Plan: Assessment: 1. Mild acute kidney injury mostly prerenal. Creatinine 2.47 admission and is stable at 2.4 today. 2. Chronic kidney disease stage III. Baseline creatinine near 2 secondary to diabetic kidney disease. Serologies have been negative in the past. 3. Edema. Improved with diuresis. 4. Status post fall. 5. Hyperkalemia secondary to acute kidney injury, acidosis and Aldactone. Better. 6. Anemia of chronic kidney disease. Iron deficiency noted. 7. Metabolic acidosis secondary to chronic kidney disease. On oral bicarb. Better. Plan: Maintain oral Lasix 20 mg once daily. Encouraged oral intake. Maintain IV iron. Avoid nephrotoxins. Continue to monitor renal function and urine output.
[2023-02-16 11:01] LABS: Basophils # (A) 0.04 X 10*3/uL (0.00-0.10); Basophils % (A) 0.6 %; Eosinophils # (A) 0.33 X 10*3/uL (0.04-0.35); Eosinophils % (A) 4.8 %; HCT 25.5 % (39.6-50.0); HGB 8.1 d/dL (13.0-17.0); Lymphocytes # (A) 1.08 X 10*3/uL (0.90-5.00); Lymphocytes % (A) 15.8 %; MCH 30.1 pg (27.0-32.0); MCHC 31.8 d/dL (32.0-37.0); MCV 94.8 FL (80.0-97.0); Mean Platelet Volume 13.6 FL (9.5-12.2); Monocytes # (A) 0.95 X 10*3/uL (0.20-1.00); Monocytes % (A) 13.9 %; NRBC Per 100 WBC 0 X 10*3/uL (0.00-0.01); Neutrophils # (A) 4.38 X 10*3/uL (1.80-7.70); Neutrophils % (A) 64.3 %; Platelet Count 169 X 10*3/uL (140-440); RBC 2.69 X 10*6/uL (4.40-5.60); RDW 16.1 % (11.5-14.5); WBC 6.82 X 10*3/uL (4.50-10.00)
[2023-02-16 12:20] LABS: Glucose,Whole Blood 172 mg/dL (70-110)
[2023-02-16 17:16] LABS: Glucose,Whole Blood 245 mg/dL (70-110)
[2023-02-16 20:36] LABS: Glucose,Whole Blood 177 mg/dL (70-110)
[2023-02-16] MEDS: allopurinoL 300 MG TAB PO SCH (20:40)
[2023-02-16] MEDS: TAMSULOSIN 0.4 MG CAP.ER.24H PO SCH (20:41)
--- NOTE | 2023-02-16 21:19 | PN ---
PROGRESS NOTE DATE OF SERVICE: 02/16/2023 SUBJECTIVE: This is a 77-year-old gentleman, who was admitted with fall and shoulder pain and significant weakness. Also, the patient has renal failure. Also, the patient has significant cellulitis of the left bhatia. The patient is closely monitored. Infectious Disease evaluation has been sought. Cultures have been obtained. Empiric antibiotics initiated. PAST MEDICAL HISTORY: Reviewed. REVIEW OF SYSTEMS: Fourteen-point review is negative except as mentioned earlier. CURRENT MEDICATIONS: Reviewed include cefazolin. Rest of the medications and rest of the chart are also reviewed. PHYSICAL EXAMINATION: VITAL SIGNS: Pulse 62, blood pressure 160/65, respirations 17. HEENT: Conjunctivae are normal. CARDIOVASCULAR: S1 and S2. RESPIRATORY: Breath sounds diminished at the bases. ABDOMEN: Soft and nontender. LEGS: No edema. No swelling. Otherwise, left bhatia infection. Some glistening skin and excoriation also present. NERVOUS SYSTEM: Diffusely weak. LABORATORY DATA: Creatinine 2.4. Hemoglobin 8.1. ASSESSMENT: 1. Status post fall and gait dysfunction. 2. Left bhatia cellulitis with failure of outpatient treatment. 3. Zpxeh-wt-ewmvnfu kidney disease, stage 3. 4. Metabolic acidosis. 5. Hyperkalemia. 6. History of heart failure with preserved ejection fraction. 7. Hypertension. 8. Hyperlipidemia. 9. Multiple medical issues. RECOMMENDATIONS: Recommend to continue current medications. Continue symptomatic treatment. Otherwise, repeat labs. Closely monitor. Guarded prognosis. Further recommendations to follow. MMODL / IJN: [id number] /
--- NOTE | 2023-02-16 22:28 | P.CONS ---
History of Present Illness - Reason for Consult Consult date: 02/16/23 Bilateral lower extremity wound Requesting physician: Danyelle Regan - Chief Complaint Weakness and fall x few days - History of Present Illness Patient is a 77-year-old male with a past medical history Significant for hypertension hyperlipidemia renal insufficiency diabetes mellitus skin cancer presenting to the hospital 3 days ago after apparently patient did fell twice once from standing position once he was slid out of his chair patient complaining of feeling weak and no energy patient also have developed a laceration to the left anterior leg area from 1 of those falls patient did have mild leg pain 1-2 out of 10 no radiation did have associated swelling redness but no foul-smelling drainage from his left lower extremity wound on presentation to the hospital the patient was afebrile and no fever have been ordered subsequently patient did have a normal white count clinical has been elevated urine has been negative patient did have a chest x-ray that was reported negative for acute cardiopulmonary disease infectious he was consulted today for management of his left lower extremity wound and need for local treatment as well as antibiotics Review of Systems Positive point and negatives has been mentioned in the HPI, complete review of systems was performed and all other systems are negative Past Medical History Past Medical History: Cancer, Diabetes Mellitus, Hyperlipidemia, Hypertension, Osteoarthritis (OA), Prostate Disorder, Renal Disease, Thyroid Disorder Additional Past Medical History / Comment(s): Falls at home 02/13/23. skin cancer, neuropathy , restless legs History of Any Multi-Drug Resistant Organisms: None Reported Past Surgical History: Orthopedic Surgery Additional Past Surgical History / Comment(s): sinus sx. cancer removed lt ear. colonoscopy , 07-07-17 anterior cervical decompression/discectomy/fusion c3-4, c4-5 Past Anesthesia/Blood Transfusion Reactions: No Reported Reaction Past Psychological History: Anxiety, Depression Additional Psychological History / Comment(s): pt lives with in single level home marely has a ramp or 3 steps thru back door, pt has a wheeled walker, glucometer, shower chair and a w/c if needed. Smoking Status: Former smoker Past Alcohol Use History: None Reported Additional Past Alcohol Use History / Comment(s): stated smoking at age 14 and quit smoking -age 39 SMOKED 1 PPD Past Drug Use History: None Reported Additional Drug Use History / Comment(s): RARE USE-INSRUCTED TO HOLD 24 HOURS PRIOR TO PROCEDURE - Past Family History Father Additional Family Medical History / Comment(s): aortic aneurysm Mother Family Medical History: Cancer Additional Family Medical History / Comment(s): pancreas cancer Medications and Allergies Home Medications Medication Instructions Recorded Confirmed Type Finasteride [Proscar] 5 mg PO DAILY 05/17/17 02/13/23 History allopurinoL [Zyloprim] 300 mg PO HS 05/17/17 02/13/23 History Pramipexole [Mirapex] 1 mg PO TID 02/17/21 02/13/23 History Sertraline [Zoloft] 50 mg PO BID 02/17/21 02/13/23 History Aspirin 81 mg PO DAILY 07/09/21 02/13/23 History Cholecalciferol [Vitamin D3 (25 25 mcg PO DAILY 02/02/22 02/13/23 History Mcg = 1000 Iu)] amLODIPine [Norvasc] 5 mg PO BID 02/02/22 02/13/23 History hydrALAZINE HCL [Apresoline] 100 mg PO BID 02/02/22 02/13/23 History Famotidine [Pepcid] 20 mg PO DAILY 02/13/23 02/13/23 History Ferrous Sulfate [Iron (65 MG 325 mg PO DAILY 02/13/23 02/13/23 History Elemental)] Levothyroxine Sodium [Synthroid] 175 mcg PO DAILY 02/13/23 02/13/23 History Tamsulosin HCl [Flomax] 0.4 mg PO HS 02/13/23 02/13/23 History carvediloL [Coreg] 12.5 mg PO BID 02/13/23 02/13/23 History DAPTOmycin [Cubicin] 350 mg IVPB Q48H 14 Days #7 each 02/22/23 Rx Darbepoetin Amrit [Aranesp] 40 mcg SQ Q7D each 02/22/23 Rx HYDROcodone/APAP 10-325MG [[place] 1 tab PO TID PRN #6 tab 02/22/23 Rx 10-325] Heparin Sodium,Porcine (1 ml) 5,000 unit SQ Q8HR each 02/22/23 Rx [Heparin Sodium] INSULIN ASPART (NovoLOG) [NovoLOG 0 unit SQ ACHS each 02/22/23 Rx (formulary)] Nystatin 100,000 Unit/gm Powd 1 applic TOPICAL BID each 02/22/23 Rx [Mycostatin Powder] Pregabalin [Lyrica] 150 mg PO BID #6 cap 02/22/23 Rx Sodium Bicarbonate Tab 650 mg PO BID tab 02/22/23 Rx Allergies Allergy/AdvReac Type Severity Reaction Status Date / Time enalaprilat [From Vasotec] Allergy felt weak, Verified 02/13/23 14:13 couldn't talk erythromycin base AdvReac Nausea & Verified 02/13/23 14:13 [From Erythrocin] Vomiting Physical Exam Vitals: Vital Signs Temp Pulse Resp BP BP Pulse Ox 02/16/23 07:18 97.9 F 61 17 141/56 94 L 02/16/23 02:10 97.6 F 61 19 149/62 93 L 02/15/23 20:10 17 02/15/23 19:11 97.6 F 60 17 143/62 94 L Intake and Output 02/15/23 02/16/23 02/16/23 22:59 06:59 14:59 Intake Total 100 1000 Output Total 1700 Balance 100 -700 Intake: Intake, IV Titration 100 Amount Sodium Ferric Gluconat- 100 Sucrose 125 mg In Sodium Chloride 0.9% 100 ml @ 100 mls/hr IVPB DAILY [facility] Rx#:[id number] Oral 1000 Output: Urine 1700 Other: Voiding Method Diaper Diaper External Catheter External Catheter GENERAL DESCRIPTION: Elderly male lying in bed, no distress. No tachypnea or accessory muscle of respiration use. HEENT: Shows Pallor , no scleral icterus. Oral mucous membrane is dry. No pharyngeal erythema or thrush NECK: Trachea central, no thyromegaly. LUNGS: Unlabored breathing. Decreased breath sound at the bases HEART: S1, S2, regular rate and rhythm. No loud murmur ABDOMEN: Soft, no tenderness , EXTREMITIES: Diffuse swelling to bilateral lower extremity with superficial/ulceration to the left leg no slough tissue or redness SKIN: No rash, no masses palpable. NEUROLOGICAL: The patient is awake, alert, oriented x3, mood and affect normal. Results CBC & Chem 7: 02/22/23 05:52 02/22/23 05:52 Labs: Abnormal Lab Results - Last 24 Hours (Table) 02/15/23 02/15/23 02/16/23 Range/Units 17:39 20:31 06:11 RBC (4.40-5.60) X 10*6/uL Hgb (13.0-17.0) d/dL Hct (39.6-50.0) % MCHC (32.0-37.0) d/dL RDW (11.5-14.5) % MPV (9.5-12.2) FL BUN 47.3 H (9.0-27.0) mg/dL Creatinine 2.4 H (0.6-1.5) mg/dL Est GFR (CKD-EPI) 27 L (>=60) POC Glucose (mg/dL) 205 H 234 H (70-110) mg/dL 02/16/23 02/16/23 Range/Units 06:11 12:18 RBC 2.69 L (4.40-5.60) X 10*6/uL Hgb 8.1 L (13.0-17.0) d/dL Hct 25.5 L (39.6-50.0) % MCHC 31.8 L (32.0-37.0) d/dL RDW 16.1 H (11.5-14.5) % MPV 13.6 H (9.5-12.2) FL BUN (9.0-27.0) mg/dL Creatinine (0.6-1.5) mg/dL Est GFR (CKD-EPI) (>=60) POC Glucose (mg/dL) 172 H (70-110) mg/dL Assessment and Plan (1) Leg wound, left Status: Acute Code(s): S81.802A - UNSPECIFIED OPEN WOUND, LEFT LOWER LEG, INITIAL ENCOUNTER SNOMED Code(s): 480666031 Plan: 1patient with a left lower extremity wound with some swelling associated but no significant redness or foul-smelling drainage clinic suspicion for secondary bacterial infection we will recommend local wound care only 2-we will apply Aquacel silver dressing followed by Diallo wrap to both lower extremity to keep the swelling down and dressing to be changed to 48-hour No need for systemic antibiotic therapy We will follow on clinical condition and cultures to further adjust medication if needed Thank you for this consultation we will follow the patient along with you Dictation was produced using [employer] dictation software. please excuse any grammatical, word or spelling errors. Time with Patient: Greater than 30
[2023-02-17] MEDS: LEVOTHYROXINE 88 MCG TAB PO SCH (05:53)
[2023-02-17 06:50] LABS: Anisocytosis Slight; Basophils % (A) 0 %; Eosinophils # (A) 0.4 k/uL (0-0.7); Eosinophils % (A) 5 %; HCT 25.9 % (39.0-53.0); HGB 8.4 gm/dL (13.0-17.5); Lymphocytes # (A) 1.2 k/uL (1.0-4.8); Lymphocytes % (A) 16 %; MCH 30.5 pg (25.0-35.0); MCHC 32.6 g/dL (31.0-37.0); MCV 93.5 fL (80.0-100.0); Mean Platelet Volume 10.9; Monocytes # (A) 0.7 k/uL (0-1.0); Monocytes % (A) 10 %; Neutrophils # (A) 5.1 k/uL (1.3-7.7); Neutrophils % (A) 67 %; Platelet Count 159 k/uL (150-450); RBC 2.77 m/uL (4.30-5.90); RDW 16.1 % (11.5-15.5); WBC 7.6 k/uL (3.8-10.6)
[2023-02-17 07:49] LABS: Glucose,Whole Blood 154 mg/dL (70-110)
[2023-02-17] MEDS: PRAMIPEXOLE 1 MG TAB PO SCH ×3 (08:27→20:07)
[2023-02-17] MEDS: hydrALAZINE HCL 50 MG TAB PO SCH ×3 (08:27→20:07)
[2023-02-17] MEDS: FUROSEMIDE 20 MG TAB PO SCH (08:27)
[2023-02-17] MEDS: PREGABALIN 75 MG CAP PO SCH ×2 (08:27→20:06)
[2023-02-17] MEDS: INSULIN ASPART (NovoLOG) 100 UNIT/ML VIAL SQ SCH ×4 (08:27→20:18)
[2023-02-17] MEDS: ASPIRIN 81 MG PO SCH (08:28)
[2023-02-17] MEDS: SERTRALINE 50 MG TAB PO SCH ×2 (08:28→20:07)
[2023-02-17] MEDS: amLODIPine 5 MG TAB PO SCH ×2 (08:28→20:06)
[2023-02-17] MEDS: SODIUM BICARBONATE TAB 650 MG TAB PO SCH ×2 (08:28→20:07)
[2023-02-17] MEDS: HEPARIN SODIUM,PORCINE 5,000 UNIT/ML 1 ML VIAL SQ SCH ×2 (08:28→19:10)
[2023-02-17] MEDS: FINASTERIDE 5 MG TAB PO SCH (08:28)
[2023-02-17] MEDS: FAMOTIDINE 20 MG TAB PO SCH (08:28)
[2023-02-17] MEDS: carvediloL 12.5 MG TAB PO SCH ×2 (08:28→19:10)
[2023-02-17] MEDS: HYDROcodone/APAP 10-325MG 1 EACH TAB PO PRN ×2 (08:29→20:19)
[2023-02-17] MEDS: NYSTATIN 100,000 UNIT/GM POWD 15 GM TOPICAL SCH ×2 (08:29→20:06)
[2023-02-17] MEDS: SODIUM FERRIC GLUCONAT-SUCROSE 125 MG in SODIUM CHLORIDE 0.9% 100 ML IVPB SCH (09:06)
[2023-02-17 11:37] LABS: BUN/Creat Ratio 16.38 Ratio (12.00-20.00); Blood Urea Nitrogen 47.5 mg/dL (9.0-27.0); Carbon Dioxide 22.3 mmol/L (21.6-31.8); Chloride 105 mmol/L (96-109); Glucose 147 mg/dL (70-110); Potassium 5.2 mmol/L (3.5-5.5); Sodium 138 mmol/L (135-145)
--- NOTE | 2023-02-17 12:15 | P.PN ---
Subjective Patient is seen in follow-up for acute kidney injury on chronic kidney disease. Renal function worse. Creatinine 2.9. Working with PT. Edema improved. Nonoliguric. Vital signs are stable. General: No acute distress. HEENT: Head exam is unremarkable. LUNGS: No audible rhonchi or wheezes. HEART: Rate and Rhythm are regular. ABDOMEN: Nontender. EXTREMITITES: Trace edema. Objective - Vital Signs Vital signs: Vital Signs Temp 98.7 F 02/17/23 07:43 Pulse 60 02/17/23 07:43 Resp 18 02/17/23 07:43 BP 159/66 02/17/23 07:43 Pulse Ox 94 L 02/17/23 07:43 FiO2 Intake & Output 02/16/23 02/17/23 02/17/23 18:59 06:59 18:59 Output Total 900 2175 Balance -900 -2175 Output: Urine 900 2175 Other: Voiding Method Diaper Diaper Diaper External Catheter External Catheter External Catheter - Labs CBC & Chem 7: 02/17/23 06:17 02/17/23 06:17 Labs: Abnormal Lab Results - Last 24 Hours (Table) 02/16/23 02/16/23 02/16/23 Range/Units 12:18 17:15 20:34 RBC (4.30-5.90) m/uL Hgb (13.0-17.5) gm/dL Hct (39.0-53.0) % RDW (11.5-15.5) % BUN (9.0-27.0) mg/dL Creatinine (0.6-1.5) mg/dL Est GFR (CKD-EPI) (>=60) Glucose (70-110) mg/dL POC Glucose (mg/dL) 172 H 245 H 177 H (70-110) mg/dL 02/17/23 02/17/23 02/17/23 Range/Units 06:17 06:17 07:47 RBC 2.77 L (4.30-5.90) m/uL Hgb 8.4 L (13.0-17.5) gm/dL Hct 25.9 L (39.0-53.0) % RDW 16.1 H (11.5-15.5) % BUN 47.5 H (9.0-27.0) mg/dL Creatinine 2.9 H (0.6-1.5) mg/dL Est GFR (CKD-EPI) 22 L (>=60) Glucose 147 H (70-110) mg/dL POC Glucose (mg/dL) 154 H (70-110) mg/dL Assessment and Plan Plan: Assessment: 1. Mild acute kidney injury mostly prerenal. Creatinine 2.47 admission and is up to 2.9 today. Worsening with diuresis. 2. Chronic kidney disease stage III. Baseline creatinine near 2 secondary to diabetic kidney disease. Serologies have been negative in the past. 3. Edema. Improved with diuresis. 4. Status post fall. 5. Hyperkalemia secondary to acute kidney injury, acidosis and Aldactone. Better. 6. Anemia of chronic kidney disease. Iron deficiency noted. 7. Metabolic acidosis secondary to chronic kidney disease. On oral bicarb. Better. Plan: Stop Lasix. Encouraged oral intake. Maintain IV iron. Avoid nephrotoxins. Continue to monitor renal function and urine output. Renal diet. Blood sugar control.
[2023-02-17 12:23] LABS: Glucose,Whole Blood 147 mg/dL (70-110)
--- NOTE | 2023-02-17 12:23 | P.PN ---
Subjective Progress Note Date: 02/17/23 Principal diagnosis: Left lower extremity wound Patient is a 77-year-old male with a past medical history Significant for hypertension hyperlipidemia renal insufficiency diabetes mellitus skin cancer presenting to the hospital for recurrent falls patient also have a lac eration to the left lower extremity prompted this infection this consultation. On today's evaluation that is 02/17/2023, the patient denies having any fever or any chills, the patient is breathing comfortably no chest shortness of cough no abdominal pain or pain to the left lower extremity Patient did have a white count of 7.6 and creatinine is 2.9 Objective - Vital Signs Vital signs: Vital Signs Temp 98.7 F 02/17/23 07:43 Pulse 60 02/17/23 07:43 Resp 18 02/17/23 07:43 BP 159/66 02/17/23 07:43 Pulse Ox 94 L 02/17/23 07:43 FiO2 Intake & Output 02/16/23 02/17/23 02/17/23 18:59 06:59 18:59 Output Total 900 2175 Balance -900 -2175 Output: Urine 900 2175 Other: Voiding Method Diaper Diaper Diaper External Catheter External Catheter External Catheter - Exam GENERAL DESCRIPTION: An elderly male lying in bed in no distress RESPIRATORY SYSTEM: Unlabored breathing , decreased breath sounds at bases HEART: S1 S2 regular rate and rhythm , ABDOMEN: Soft , no tenderness EXTREMITIES: Bilaterally lower extremities are currently wrapped in Diallo wrap - Labs CBC & Chem 7: 02/17/23 06:17 02/17/23 06:17 Labs: Abnormal Lab Results - Last 24 Hours (Table) 02/16/23 02/16/23 02/17/23 Range/Units 17:15 20:34 06:17 RBC 2.77 L (4.30-5.90) m/uL Hgb 8.4 L (13.0-17.5) gm/dL Hct 25.9 L (39.0-53.0) % RDW 16.1 H (11.5-15.5) % BUN (9.0-27.0) mg/dL Creatinine (0.6-1.5) mg/dL Est GFR (CKD-EPI) (>=60) Glucose (70-110) mg/dL POC Glucose (mg/dL) 245 H 177 H (70-110) mg/dL 02/17/23 02/17/23 Range/Units 06:17 07:47 RBC (4.30-5.90) m/uL Hgb (13.0-17.5) gm/dL Hct (39.0-53.0) % RDW (11.5-15.5) % BUN 47.5 H (9.0-27.0) mg/dL Creatinine 2.9 H (0.6-1.5) mg/dL Est GFR (CKD-EPI) 22 L (>=60) Glucose 147 H (70-110) mg/dL POC Glucose (mg/dL) 154 H (70-110) mg/dL Assessment and Plan (1) Leg wound, left Current Visit: Yes Status: Acute Code(s): S81.802A - UNSPECIFIED OPEN WOUND, LEFT LOWER LEG, INITIAL ENCOUNTER SNOMED Code(s): 966227453 Plan: 1patient with a left lower extremity wound with some swelling associated but no significant redness or foul-smelling drainage clinic suspicion for secondary bacterial infection we will recommend local wound care only 2-continue local wound care with Aquacel silver dressing followed by Diallo wrap to both lower extremity to keep the swelling down and dressing to be changed to 48- hour Will monitor closely off antibiotics Dictation was produced using [employer] dictation software. please excuse any grammatical, word or spelling errors. Time with Patient: Less than 30
--- NOTE | 2023-02-17 18:04 | PN ---
PROGRESS NOTE DATE OF SERVICE: 02/17/2023 HISTORY OF PRESENT ILLNESS: This is a 77-year-old gentleman, who was admitted with fall and gait dysfunction. He had a left bhatia ulcer. The patient is on antibiotics. No chest pain. No palpitation. OBJECTIVE: VITAL SIGNS: Pulse 57, blood pressure 140/69, respirations 18. CHEST: Clear to auscultation. CARDIOVASCULAR: S1 and S2. ABDOMEN: Soft. LEGS: Infection present. LABORATORY DATA: Creatinine 2.9. Rest of the labs are noted. ASSESSMENT: 1. Status post fall and gait dysfunction. 2. Left bhatia cellulitis with failure of outpatient treatment. 3. Xhhsd-vb-[id number] kidney disease, stage 3. 4. Metabolic acidosis. 5. Hyperkalemia. 6. History of heart failure with preserved ejection fraction. 7. Hypertension. 8. Multiple medical issues. RECOMMENDATIONS: Recommend to continue current medications. Continue symptomatic treatment. Continue with antibiotics. Continue with PT and OT evaluation. Possible ECF rehab. Guarded prognosis. Further recommendations to follow. MMODL / IJN: [id number] /
[2023-02-17 20:06] LABS: Glucose,Whole Blood 244 mg/dL (70-110)
[2023-02-17] MEDS: allopurinoL 300 MG TAB PO SCH (20:06)
[2023-02-17] MEDS: TAMSULOSIN 0.4 MG CAP.ER.24H PO SCH (20:07)
[2023-02-18] MEDS: HEPARIN SODIUM,PORCINE 5,000 UNIT/ML 1 ML VIAL SQ SCH ×3 (00:37→17:03)
[2023-02-18] MEDS: HYDROcodone/APAP 10-325MG 1 EACH TAB PO PRN ×3 (05:39→22:10)
[2023-02-18] MEDS: LEVOTHYROXINE 88 MCG TAB PO SCH (05:49)
[2023-02-18 07:18] LABS: Glucose,Whole Blood 141 mg/dL (70-110)
[2023-02-18] MEDS: INSULIN ASPART (NovoLOG) 100 UNIT/ML VIAL SQ SCH ×4 (07:45→22:10)
[2023-02-18] MEDS: PRAMIPEXOLE 1 MG TAB PO SCH ×3 (08:38→20:24)
[2023-02-18] MEDS: PREGABALIN 75 MG CAP PO SCH ×2 (08:38→20:24)
[2023-02-18] MEDS: hydrALAZINE HCL 50 MG TAB PO SCH ×3 (08:38→20:24)
[2023-02-18] MEDS: SODIUM BICARBONATE TAB 650 MG TAB PO SCH ×2 (08:38→20:24)
[2023-02-18] MEDS: carvediloL 12.5 MG TAB PO SCH ×2 (08:38→17:02)
[2023-02-18] MEDS: amLODIPine 5 MG TAB PO SCH ×2 (08:38→20:24)
[2023-02-18] MEDS: ASPIRIN 81 MG PO SCH (08:38)
[2023-02-18] MEDS: FINASTERIDE 5 MG TAB PO SCH (08:39)
[2023-02-18] MEDS: SERTRALINE 50 MG TAB PO SCH ×2 (08:39→20:24)
[2023-02-18] MEDS: FAMOTIDINE 20 MG TAB PO SCH (08:39)
[2023-02-18] MEDS: NYSTATIN 100,000 UNIT/GM POWD 15 GM TOPICAL SCH ×2 (08:39→20:25)
[2023-02-18] MEDS: SODIUM FERRIC GLUCONAT-SUCROSE 125 MG in SODIUM CHLORIDE 0.9% 100 ML IVPB SCH (11:27)
--- NOTE | 2023-02-18 11:30 | P.PN ---
Subjective Patient is seen in follow-up for acute kidney injury on chronic kidney disease. Renal function worse with creatinine 2.9 yesterday. Lasix discontinued. Working with PT. Edema improved. Nonoliguric. Vital signs are stable. General: No acute distress. HEENT: Head exam is unremarkable. LUNGS: No audible rhonchi or wheezes. HEART: Rate and Rhythm are regular. ABDOMEN: Nontender. EXTREMITITES: Trace edema. Objective - Vital Signs Vital signs: Vital Signs Temp 98.7 F 02/18/23 08:00 Pulse 63 02/18/23 08:00 Resp 16 02/18/23 08:00 BP 150/67 02/18/23 08:00 Pulse Ox 95 02/18/23 08:08 FiO2 21 02/18/23 08:08 Intake & Output 02/17/23 02/18/23 02/18/23 18:59 06:59 18:59 Output Total 1450 2375 Balance -1450 -2375 Output: Urine 1450 2375 Other: Voiding Method Diaper Diaper Diaper External Catheter External Catheter External Catheter - Labs CBC & Chem 7: 02/17/23 06:17 02/17/23 06:17 Labs: Abnormal Lab Results - Last 24 Hours (Table) 02/17/23 02/17/23 02/17/23 Range/Units 06:17 12:22 20:04 BUN 47.5 H (9.0-27.0) mg/dL Creatinine 2.9 H (0.6-1.5) mg/dL Est GFR (CKD-EPI) 22 L (>=60) Glucose 147 H (70-110) mg/dL POC Glucose (mg/dL) 147 H 244 H (70-110) mg/dL 02/18/23 Range/Units 07:16 BUN (9.0-27.0) mg/dL Creatinine (0.6-1.5) mg/dL Est GFR (CKD-EPI) (>=60) Glucose (70-110) mg/dL POC Glucose (mg/dL) 141 H (70-110) mg/dL Assessment and Plan Plan: Assessment: 1. Mild acute kidney injury mostly prerenal. Creatinine 2.47 admission and up to 2.9 yesterday. Worsening with diuresis - Lasix stopped 02/17/2023. 2. Chronic kidney disease stage IIIb with baseline creatinine near 2 secondary to diabetic kidney disease. Serologies have been negative in the past. 3. Edema. Improved with diuresis. 4. Status post fall. 5. Hyperkalemia secondary to acute kidney injury, acidosis and Aldactone. Better. 6. Anemia of chronic kidney disease. Iron deficiency noted. 7. Metabolic acidosis secondary to chronic kidney disease. On oral bicarb. Better. Plan: Continue to hold diuretics. Encouraged oral intake. Maintain IV iron. Avoid nephrotoxins. Continue to monitor renal function and urine output. Renal diet. Blood sugar control. Morning labs pending.
[2023-02-18 11:31] LABS: Basophils # (A) 0.04 X 10*3/uL (0.00-0.10); Basophils % (A) 0.4 %; Eosinophils % (A) 2.8 %; HCT 26.4 % (39.6-50.0); HGB 8.6 d/dL (13.0-17.0); Lymphocytes # (A) 0.82 X 10*3/uL (0.90-5.00); Lymphocytes % (A) 7.6 %; MCH 30.5 pg (27.0-32.0); MCHC 32.6 d/dL (32.0-37.0); MCV 93.6 FL (80.0-97.0); Mean Platelet Volume 13.2 FL (9.5-12.2); Monocytes % (A) 12.1 %; NRBC Per 100 WBC 0 X 10*3/uL (0.00-0.01); Neutrophils # (A) 8.19 X 10*3/uL (1.80-7.70); Neutrophils % (A) 76.1 %; Platelet Count 169 X 10*3/uL (140-440); RBC 2.82 X 10*6/uL (4.40-5.60); RDW 15.6 % (11.5-14.5); WBC 10.76 X 10*3/uL (4.50-10.00)
[2023-02-18 11:49] LABS: Glucose,Whole Blood 260 mg/dL (70-110)
--- NOTE | 2023-02-18 15:15 | CDI ---
Documentation Clarification Form Date: 02/18/2023 02:44:36 PM From: Elzbieta Stanford RN, CCDS Admit Date: 02/16/2023 09:21:00 AM Patient Name: Peyman Carter Visit Number: [id number] Discharge Date: ATTENTION: The Clinical Documentation Specialists (CDI) and [facility] Coding Staff appreciate your assistance in clarifying documentation. Please respond to the clarification below the line at the bottom and electronically sign. The CDI & [facility] Coding staff will review the response and follow-up if needed. Please note: Queries are made part of the Legal Health Record. If you have any questions, please contact the author of this message via ITS. Dr. Nellie Patiño Bilateral: left buttock pressure ulcer stage I, buttock, stage II left buttock is documented by Nursing Wound Care assessment starting on 02/13/2023. Based on this information and the findings below, is there an additional diagnosis that is clinically appropriate for this patient? History/Risk Factors: Cancer, Diabetes Mellitus, Hyperlipidemia, Hypertension, Osteoarthritis (OA), Prostate Disorder, Thyroid Disorder Clinical Indicators: 77-year-old male present with fall x2. Patient states that he felt very weak, and his legs gave away and unable to keep standing. He is incontinent. Voiding method: Diaper/Brief External catheter Location: Left buttock. Groin Dermatitis from incontinence issues. Wound description: Red Erythema Small open/raised area left buttock. Treatment: Cream applied to bilateral buttocks. Turn and Positioning Mycostatin Powder Topical BID Is there an additional diagnosis that is clinically appropriate for this patient? [ ] Pressure Ulcer left Buttock Stage I, Pressure ulcer Left buttock stage II present on admission [ ] Other condition, please specify [ x ] Unable to determine Clinical Definitions: Stage 1 Pressure Ulcer: intact skin, non-blanching redness of local area Stage 2 Pressure Ulcer: Partial thickness, loss of dermis, pink wound bed Stage 3 Pressure Ulcer: Full thickness tissue loss Stage 4 Pressure Ulcer: Full thickness tissue loss with exposed bone, tendon, or muscle. Unstageable pressure ulcer: Full thickness tissue loss in which the base of the ulcer is covered by slough (yellow, schmid, coburn, green or brown) and/or eschar (schmid, brown or black) in the wound bed. (Template Last Revised: August 2020) MTDD
--- NOTE | 2023-02-18 15:19 | P.PN ---
Subjective Progress Note Date: 02/18/23 This is a 77-year-old male who was recently admitted with falls and gait dysfunction with generalized weakness being closely monitored. Patient does have a pre-existing left bhatia ulcer maintained on antibiotics with infectious disease following. Patient continue local wound care and will likely transition to oral antibiotics. Patient is afebrile with no reported chest pain or shortness of breath. Patient is reporting some chronic pain and adjustments to medications are being made. Patient required 3 night hospitalization according to Medicare guidelines before patient was able to be transferred to [facility] for continued strength and mobility. Patient has been accepted at [facility] and will discuss discharge planning in 24 hours. Review of systems: Constitutional: No reports of fatigue, fever, or chills Cardiovascular: No reports of chest pain or palpitations Respiratory: No reports of shortness of breath or cough GI: No reports of nausea, no reports of vomiting, no diarrhea : No reports of dysuria or retention Neurovascular: reports of generalized weakness, and chronic back pain All medications have been reviewed PHYSICAL EXAMINATION: GENERAL: The patient is alert and oriented x4, Well developed, well nourished. Obese HEENT: Pupils are round and equally reacting to light. EOMI. no scleral icterus. No conjunctival pallor. Normocephalic, atraumatic. No pharyngeal erythema. No thyromegaly. CARDIOVASCULAR: S1 and S2 muffled PULMONARY: diminished breath sounds bilaterally with no wheezing or rhonchi noted. ABDOMEN: soft. Nontender on exam. obese. non-distended, normoactive bowel sounds. No palpable organomegaly. MUSCULOSKELETAL: No joint swelling or deformity. EXTREMITIES: No cyanosis, clubbing, or pedal edema. Bilateral lower extremity with Diallo wraps noted and swelling improved. NEUROLOGICAL: Gross neurological examination did not reveal any focal deficits. Diffuse weakness SKIN: No rashes. Assessment: Status post fall and gait dysfunction Left bhatia cellulitis with failure of outpatient treatment Acute on chronic kidney disease, stage III Anemia of chronic kidney disease, Iron deficiency anemia Metabolic acidosis Hyperkalemia History of heart failure with preserved EF, not an exacerbation Hypertension history Obesity with a BMI of 35.4 GI prophylaxis DVT prophylaxis Full code Plan: Patient was evaluated by PT/OT therapy recommending rehab and patient is agreeable. Patient has been accepted at [facility] and awaiting 3 night hospitalization according to Medicare guidelines and patient will be able to go in 24 hours Continue local wound care and Diallo wraps to lower extremities and elevating while at rest. Infectious disease following an patient is maintained on cefazolin and we'll transition to oral Keflex on discharge. Patient has received IV iron supplements for iron deficiency anemia Nephrology following as well for worsening kidney functions and diuretics are on hold, a.m. labs remain on hold for BMP and will follow-up to monitor kidney functions Will discuss further with consultations about discharge planning in the next 24 hours. Due to multiple complex medical issues, prognosis is guarded. The impression and plan of care has been dictated by Danyelle Regan, nurse practitioner as directed. Dr. Pete MD I have performed a history and examination and MDM of this patient, discussed the same with the dictator, and agree with the dictator's assessment and plan as written ,documented as a scribe. Based on total visit time, I have performed more than 50% of the visit. Any additional findings or plans will be noted. Objective - Vital Signs Vital signs: Vital Signs Temp 98.2 F 02/18/23 12:34 Pulse 56 L 02/18/23 12:34 Resp 20 02/18/23 12:34 BP 120/67 02/18/23 12:34 Pulse Ox 96 02/18/23 12:34 FiO2 21 02/18/23 08:08 Intake & Output 02/17/23 02/18/23 02/18/23 18:59 06:59 18:59 Output Total 1450 2375 Balance -1450 -2375 Output: Urine 1450 2375 Other: Voiding Method Diaper Diaper Diaper External Catheter External Catheter External Catheter - Labs CBC & Chem 7: 02/18/23 06:37 02/17/23 06:17 Labs: Abnormal Lab Results - Last 24 Hours (Table) 02/17/23 02/18/23 02/18/23 Range/Units 20:04 06:37 07:16 WBC 10.76 H (4.50-10.00) X 10*3/uL RBC 2.82 L (4.40-5.60) X 10*6/uL Hgb 8.6 L (13.0-17.0) d/dL Hct 26.4 L (39.6-50.0) % RDW 15.6 H (11.5-14.5) % MPV 13.2 H (9.5-12.2) FL Neutrophils # 8.19 H (1.80-7.70) X 10*3/uL Lymphocytes # 0.82 L (0.90-5.00) X 10*3/uL Monocytes # 1.30 H (0.20-1.00) X 10*3/uL POC Glucose (mg/dL) 244 H 141 H (70-110) mg/dL 02/18/23 Range/Units 11:48 WBC (4.50-10.00) X 10*3/uL RBC (4.40-5.60) X 10*6/uL Hgb (13.0-17.0) d/dL Hct (39.6-50.0) % RDW (11.5-14.5) % MPV (9.5-12.2) FL Neutrophils # (1.80-7.70) X 10*3/uL Lymphocytes # (0.90-5.00) X 10*3/uL Monocytes # (0.20-1.00) X 10*3/uL POC Glucose (mg/dL) 260 H (70-110) mg/dL
[2023-02-18 16:53] LABS: Glucose,Whole Blood 235 mg/dL (70-110)
[2023-02-18 17:47] LABS: Hepatitis B Surface Antigen Nonreactive; Hepatitis C IgG Antibody Nonreactive
[2023-02-18 18:00] LABS: BUN/Creat Ratio 18.11 Ratio (12.00-20.00); Blood Urea Nitrogen 48.9 mg/dL (9.0-27.0); Calcium 8.9 mg/dL (8.7-10.3); Carbon Dioxide 19.7 mmol/L (21.6-31.8); Chloride 104 mmol/L (96-109); Glucose 109 mg/dL (70-110); Potassium 4.8 mmol/L (3.5-5.5); Sodium 139 mmol/L (135-145)
[2023-02-18] MEDS: TAMSULOSIN 0.4 MG CAP.ER.24H PO SCH (20:24)
[2023-02-18] MEDS: allopurinoL 300 MG TAB PO SCH (20:24)
[2023-02-18 20:43] LABS: Glucose,Whole Blood 279 mg/dL (70-110)
[2023-02-19] MEDS: HEPARIN SODIUM,PORCINE 5,000 UNIT/ML 1 ML VIAL SQ SCH ×4 (00:25→23:58)
[2023-02-19] MEDS: HYDROcodone/APAP 10-325MG 1 EACH TAB PO PRN ×2 (06:41→19:48)
[2023-02-19 07:01] LABS: Glucose,Whole Blood 132 mg/dL (70-110)
[2023-02-19] MEDS: INSULIN ASPART (NovoLOG) 100 UNIT/ML VIAL SQ SCH ×4 (07:43→21:29)
[2023-02-19] MEDS: PREGABALIN 75 MG CAP PO SCH ×2 (08:28→21:29)
[2023-02-19] MEDS: LEVOTHYROXINE 88 MCG TAB PO SCH (08:29)
[2023-02-19] MEDS: FAMOTIDINE 20 MG TAB PO SCH (08:30)
[2023-02-19] MEDS: SERTRALINE 50 MG TAB PO SCH ×2 (08:30→21:29)
[2023-02-19] MEDS: ASPIRIN 81 MG PO SCH (08:30)
[2023-02-19] MEDS: hydrALAZINE HCL 50 MG TAB PO SCH ×3 (08:31→21:28)
[2023-02-19] MEDS: amLODIPine 5 MG TAB PO SCH ×2 (08:32→21:29)
[2023-02-19] MEDS: SODIUM BICARBONATE TAB 650 MG TAB PO SCH ×2 (08:32→21:29)
[2023-02-19] MEDS: carvediloL 12.5 MG TAB PO SCH ×2 (08:32→16:46)
[2023-02-19] MEDS: FINASTERIDE 5 MG TAB PO SCH (08:32)
[2023-02-19] MEDS: NYSTATIN 100,000 UNIT/GM POWD 15 GM TOPICAL SCH ×2 (08:42→21:29)
[2023-02-19] MEDS: PRAMIPEXOLE 1 MG TAB PO SCH ×3 (10:36→21:56)
[2023-02-19 11:04] LABS: BUN/Creat Ratio 18.89 Ratio (12.00-20.00); Blood Urea Nitrogen 52.9 mg/dL (9.0-27.0); Calcium 9.1 mg/dL (8.7-10.3); Carbon Dioxide 19.9 mmol/L (21.6-31.8); Chloride 104 mmol/L (96-109); Glucose 123 mg/dL (70-110); Magnesium 2.2 mg/dL (1.5-2.4); Potassium 4.6 mmol/L (3.5-5.5); Sodium 137 mmol/L (135-145)
[2023-02-19] MEDS ORDERED: DARBEPOETIN ALFA 40 MCG/0.4 ML SYRINGE SQ SCH (11:15)
--- NOTE | 2023-02-19 11:16 | P.PN ---
Subjective Patient is seen in follow-up for acute kidney injury on chronic kidney disease. Renal function stable. Diuretics held. Working with PT. Edema improved. Nonoliguric. Vital signs are stable. General: No acute distress. HEENT: Head exam is unremarkable. LUNGS: No audible rhonchi or wheezes. HEART: Rate and Rhythm are regular. ABDOMEN: Nontender. EXTREMITITES: Trace edema. Objective - Vital Signs Vital signs: Vital Signs Temp 98.0 F 02/19/23 07:56 Pulse 64 02/19/23 07:56 Resp 17 02/19/23 07:56 BP 134/54 02/19/23 07:56 Pulse Ox 96 02/19/23 07:56 FiO2 21 02/18/23 08:08 Intake & Output 02/18/23 02/19/23 02/19/23 18:59 06:59 18:59 Output Total 1000 1000 Balance -1000 -1000 Weight 108.862 kg Output: Urine 1000 1000 Other: Voiding Method Diaper Diaper Diaper External Catheter External Catheter External Catheter - Labs CBC & Chem 7: 02/18/23 06:37 02/19/23 06:51 Labs: Abnormal Lab Results - Last 24 Hours (Table) 02/18/23 02/18/23 02/18/23 Range/Units 06:37 06:37 11:48 WBC 10.76 H (4.50-10.00) X 10*3/uL RBC 2.82 L (4.40-5.60) X 10*6/uL Hgb 8.6 L (13.0-17.0) d/dL Hct 26.4 L (39.6-50.0) % RDW 15.6 H (11.5-14.5) % MPV 13.2 H (9.5-12.2) FL Neutrophils # 8.19 H (1.80-7.70) X 10*3/uL Lymphocytes # 0.82 L (0.90-5.00) X 10*3/uL Monocytes # 1.30 H (0.20-1.00) X 10*3/uL Carbon Dioxide 19.7 L (21.6-31.8) mmol/L Anion Gap 15.30 H (4.00-12.00) mmol/L BUN 48.9 H (9.0-27.0) mg/dL Creatinine 2.7 H (0.6-1.5) mg/dL Est GFR (CKD-EPI) 24 L (>=60) Glucose (70-110) mg/dL POC Glucose (mg/dL) 260 H (70-110) mg/dL 02/18/23 02/18/23 02/19/23 Range/Units 16:50 20:41 06:51 WBC (4.50-10.00) X 10*3/uL RBC (4.40-5.60) X 10*6/uL Hgb (13.0-17.0) d/dL Hct (39.6-50.0) % RDW (11.5-14.5) % MPV (9.5-12.2) FL Neutrophils # (1.80-7.70) X 10*3/uL Lymphocytes # (0.90-5.00) X 10*3/uL Monocytes # (0.20-1.00) X 10*3/uL Carbon Dioxide 19.9 L (21.6-31.8) mmol/L Anion Gap 13.10 H (4.00-12.00) mmol/L BUN 52.9 H (9.0-27.0) mg/dL Creatinine 2.8 H (0.6-1.5) mg/dL Est GFR (CKD-EPI) 23 L (>=60) Glucose 123 H (70-110) mg/dL POC Glucose (mg/dL) 235 H 279 H (70-110) mg/dL 02/19/23 Range/Units 07:00 WBC (4.50-10.00) X 10*3/uL RBC (4.40-5.60) X 10*6/uL Hgb (13.0-17.0) d/dL Hct (39.6-50.0) % RDW (11.5-14.5) % MPV (9.5-12.2) FL Neutrophils # (1.80-7.70) X 10*3/uL Lymphocytes # (0.90-5.00) X 10*3/uL Monocytes # (0.20-1.00) X 10*3/uL Carbon Dioxide (21.6-31.8) mmol/L Anion Gap (4.00-12.00) mmol/L BUN (9.0-27.0) mg/dL Creatinine (0.6-1.5) mg/dL Est GFR (CKD-EPI) (>=60) Glucose (70-110) mg/dL POC Glucose (mg/dL) 132 H (70-110) mg/dL Assessment and Plan Plan: Assessment: 1. Mild acute kidney injury mostly prerenal. Creatinine 2.47 admission and up to 2.9 dated 02/17/2023 - 2.8 today. Renal function worsened with diuresis - Lasix stopped 02/17/2023. Remains nonoliguric. 2. Chronic kidney disease stage IIIb with baseline creatinine near 2 secondary to diabetic kidney disease. Serologies have been negative in the past. 3. Edema. Improved with diuresis. 4. Status post fall. 5. Hyperkalemia secondary to acute kidney injury, acidosis and Aldactone. Better. 6. Anemia of chronic kidney disease. Iron deficiency noted. Status post IV iron and completed 02/18/2023. 7. Metabolic acidosis secondary to chronic kidney disease. On oral bicarb. Plan: Continue to hold diuretics. Encouraged oral intake. Avoid nephrotoxins. Continue to monitor renal function and urine output. Renal diet. Blood sugar control. Add Aranesp
[2023-02-19 11:29] LABS: Glucose,Whole Blood 224 mg/dL (70-110)
--- NOTE | 2023-02-19 13:03 | US ---
EXAMINATION TYPE: US venous doppler duplex UE RT DATE OF EXAM: 02/19/2023 COMPARISON: NONE CLINICAL INDICATION: Male, 77 years old with history of right arm pain and swelling at the right AC s ite; Right arm pain, edema, redness right antecubital fossa. Recent IV right arm SIDE PERFORMED: right Right Arm: technical limitations, patient scanned sitting upright in reclining chair. No evidence of DVT as visualized. Superficial thrombus right cephalic vein IMPRESSION: 1. No evidence of DVT as visualized. 2. Superficial thrombus right cephalic vein
[2023-02-19 17:02] LABS: Glucose,Whole Blood 252 mg/dL (70-110)
[2023-02-19 20:27] LABS: Glucose,Whole Blood 268 mg/dL (70-110)
[2023-02-19] MEDS: allopurinoL 300 MG TAB PO SCH (21:28)
[2023-02-19] MEDS: TAMSULOSIN 0.4 MG CAP.ER.24H PO SCH (21:28)
[2023-02-20] MEDS: HYDROcodone/APAP 10-325MG 1 EACH TAB PO PRN ×3 (01:12→20:13)
--- NOTE | 2023-02-20 05:28 | P.PN ---
Subjective Progress Note Date: 02/19/23 This is a 77-year-old male who was recently admitted with falls and gait dysfunction with generalized weakness being closely monitored. Patient does have a pre-existing left bhatia ulcer maintained on antibiotics with infectious disease following. Patient continue local wound care and will likely transition to oral antibiotics. Patient is afebrile with no reported chest pain or shortness of breath. Patient is reporting some chronic pain and adjustments to medications are being made. Patient required 3 night hospitalization according to Medicare guidelines before patient was able to be transferred to [facility] for continued strength and mobility. Patient has been accepted at [facility] and will discuss discharge planning in 24 hours. 02/19/2023 Patient is seen and evaluated today reporting some pain in the right upper extremity were previous IV site was. There is some redness with swelling noted will obtain Doppler to rule out SVT or DVT. Patient is maintained on Keflex with infectious disease following and will continue. We'll also obtain a blood culture. Patient with continued weakness was scheduled to go to [facility] today although will await Doppler and improvement on the site. Recommend warm compresses 3 times a day to the area. Area has been marked to monitor for any worsening redness or swelling. Patient is afebrile with no reported chest pain or shortness of breath noted. Patient is tolerating diet with no reported nausea or vomiting. Review of systems: Constitutional: No reports of fatigue, fever, or chills Cardiovascular: No reports of chest pain or palpitations Respiratory: No reports of shortness of breath or cough GI: No reports of nausea, no reports of vomiting, no diarrhea : No reports of dysuria or retention Neurovascular: reports of generalized weakness, and chronic back pain All medications have been reviewed PHYSICAL EXAMINATION: GENERAL: The patient is alert and oriented x4, Well developed, well nourished. Obese HEENT: Pupils are round and equally reacting to light. EOMI. no scleral icterus. No conjunctival pallor. Normocephalic, atraumatic. No pharyngeal erythema. No thyromegaly. CARDIOVASCULAR: S1 and S2 muffled PULMONARY: diminished breath sounds bilaterally with no wheezing or rhonchi noted. ABDOMEN: soft. Nontender on exam. obese. non-distended, normoactive bowel sounds. No palpable organomegaly. MUSCULOSKELETAL: No joint swelling or deformity. EXTREMITIES: No cyanosis, clubbing, or pedal edema. Bilateral lower extremity with Diallo wraps noted and swelling improved. Right antecubital area with surrounding redness and swelling from previous IV noted NEUROLOGICAL: Gross neurological examination did not reveal any focal deficits. Diffuse weakness SKIN: No rashes. Assessment: Status post fall and gait dysfunction Left bhatia cellulitis with failure of outpatient treatment Superficial thrombus of the right cephalic vein from previous IV site Acute on chronic kidney disease, stage III Anemia of chronic kidney disease, Iron deficiency anemia Metabolic acidosis Hyperkalemia History of heart failure with preserved EF, not an exacerbation Hypertension history Obesity with a BMI of 35.4 GI prophylaxis DVT prophylaxis Full code Plan: Patient was evaluated by PT/OT therapy recommending rehab and patient is ag reeable. Patient has been accepted at [facility] and awaiting 3 night hospitalization according to Medicare guidelines Continue local wound care and Diallo wraps to lower extremities and elevating while at rest. Infectious disease following an patient is maintained on cefazolin and we'll transition to oral Keflex on discharge. Patient had a previous IV site on the right antecubital site and now noted to have some increased erythema and swelling noted in the area has been marked and Doppler was obtained showing a superficial thrombus in the right cephalic vein. Will continue with warm compresses 3 times a day and continue on Keflex. Repeat blood culture was obtained. Patient has received IV iron supplements for iron deficiency anemia Nephrology following as well for worsening kidney functions and diuretics are on hold, a.m. labs remain on hold for BMP and will follow-up to monitor kidney functions Patient scheduled to go to [facility] and will plan for discharge planning early Wednesday. Due to multiple complex medical issues, prognosis is guarded. The impression and plan of care has been dictated by Danyelle Regan, nurse practitioner as directed. Dr. Pete MD I have performed a history and examination and MDM of this patient, discussed the same with the dictator, and agree with the dictator's assessment and plan as written ,documented as a scribe. Based on total visit time, I have performed more than 50% of the visit. Any additional findings or plans will be noted. Objective - Vital Signs Vital signs: Vital Signs Temp 98.0 F 02/19/23 07:56 Pulse 64 02/19/23 07:56 Resp 17 02/19/23 07:56 BP 134/54 02/19/23 07:56 Pulse Ox 96 02/19/23 07:56 FiO2 21 02/18/23 08:08 Intake & Output 02/18/23 02/19/23 02/19/23 18:59 06:59 18:59 Output Total 1000 1000 Balance -1000 -1000 Weight 108.862 kg Output: Urine 1000 1000 Other: Voiding Method Diaper Diaper Diaper External Catheter External Catheter External Catheter - Labs CBC & Chem 7: 02/18/23 06:37 02/19/23 06:51 Labs: Abnormal Lab Results - Last 24 Hours (Table) 02/18/23 02/18/23 02/18/23 Range/Units 06:37 06:37 11:48 WBC 10.76 H (4.50-10.00) X 10*3/uL RBC 2.82 L (4.40-5.60) X 10*6/uL Hgb 8.6 L (13.0-17.0) d/dL Hct 26.4 L (39.6-50.0) % RDW 15.6 H (11.5-14.5) % MPV 13.2 H (9.5-12.2) FL Neutrophils # 8.19 H (1.80-7.70) X 10*3/uL Lymphocytes # 0.82 L (0.90-5.00) X 10*3/uL Monocytes # 1.30 H (0.20-1.00) X 10*3/uL Carbon Dioxide 19.7 L (21.6-31.8) mmol/L Anion Gap 15.30 H (4.00-12.00) mmol/L BUN 48.9 H (9.0-27.0) mg/dL Creatinine 2.7 H (0.6-1.5) mg/dL Est GFR (CKD-EPI) 24 L (>=60) Glucose (70-110) mg/dL POC Glucose (mg/dL) 260 H (70-110) mg/dL 02/18/23 02/18/23 02/19/23 Range/Units 16:50 20:41 06:51 WBC (4.50-10.00) X 10*3/uL RBC (4.40-5.60) X 10*6/uL Hgb (13.0-17.0) d/dL Hct (39.6-50.0) % RDW (11.5-14.5) % MPV (9.5-12.2) FL Neutrophils # (1.80-7.70) X 10*3/uL Lymphocytes # (0.90-5.00) X 10*3/uL Monocytes # (0.20-1.00) X 10*3/uL Carbon Dioxide 19.9 L (21.6-31.8) mmol/L Anion Gap 13.10 H (4.00-12.00) mmol/L BUN 52.9 H (9.0-27.0) mg/dL Creatinine 2.8 H (0.6-1.5) mg/dL Est GFR (CKD-EPI) 23 L (>=60) Glucose 123 H (70-110) mg/dL POC Glucose (mg/dL) 235 H 279 H (70-110) mg/dL 02/19/23 Range/Units 07:00 WBC (4.50-10.00) X 10*3/uL RBC (4.40-5.60) X 10*6/uL Hgb (13.0-17.0) d/dL Hct (39.6-50.0) % RDW (11.5-14.5) % MPV (9.5-12.2) FL Neutrophils # (1.80-7.70) X 10*3/uL Lymphocytes # (0.90-5.00) X 10*3/uL Monocytes # (0.20-1.00) X 10*3/uL Carbon Dioxide (21.6-31.8) mmol/L Anion Gap (4.00-12.00) mmol/L BUN (9.0-27.0) mg/dL Creatinine (0.6-1.5) mg/dL Est GFR (CKD-EPI) (>=60) Glucose (70-110) mg/dL POC Glucose (mg/dL) 132 H (70-110) mg/dL
[2023-02-20] MEDS: LEVOTHYROXINE 88 MCG TAB PO SCH (06:05)
[2023-02-20 08:08] LABS: African American GFR (CKD) 25 (>60 ml/min/1.73 sqM); Anion Gap 9 mmol/L; Blood Urea Nitrogen 62 mg/dL (9-20); Calcium 8.5 mg/dL (8.4-10.2); Carbon Dioxide 20 mmol/L (22-30); Chloride 105 mmol/L (98-107); Glucose 110 mg/dL (74-99); Non-African American GFR(CKD) 22 (>60 ml/min/1.73 sqM); Potassium 4.7 mmol/L (3.5-5.1); Sodium 134 mmol/L (137-145)
[2023-02-20 08:18] LABS: Glucose,Whole Blood 135 mg/dL (70-110)
[2023-02-20 08:28] LABS: Basophils % (A) 0 %; Eosinophils # (A) 0.4 k/uL (0-0.7); Eosinophils % (A) 4 %; HCT 24.2 % (39.0-53.0); HGB 7.9 gm/dL (13.0-17.5); Lymphocytes # (A) 1.2 k/uL (1.0-4.8); Lymphocytes % (A) 14 %; MCH 31.1 pg (25.0-35.0); MCHC 32.7 g/dL (31.0-37.0); MCV 95.1 fL (80.0-100.0); Mean Platelet Volume 11.5; Monocytes % (A) 11 %; Neutrophils # (A) 6.4 k/uL (1.3-7.7); Neutrophils % (A) 70 %; Platelet Count 154 k/uL (150-450); RBC 2.55 m/uL (4.30-5.90); RDW 15.7 % (11.5-15.5); WBC 9.2 k/uL (3.8-10.6)
[2023-02-20] MEDS: INSULIN ASPART (NovoLOG) 100 UNIT/ML VIAL SQ SCH ×4 (08:44→22:05)
[2023-02-20] MEDS: FINASTERIDE 5 MG TAB PO SCH (08:47)
[2023-02-20] MEDS: SERTRALINE 50 MG TAB PO SCH ×2 (08:47→20:15)
[2023-02-20] MEDS: carvediloL 12.5 MG TAB PO SCH ×2 (08:47→17:39)
[2023-02-20] MEDS: hydrALAZINE HCL 50 MG TAB PO SCH ×3 (08:47→21:57)
[2023-02-20] MEDS: HEPARIN SODIUM,PORCINE 5,000 UNIT/ML 1 ML VIAL SQ SCH ×2 (08:47→15:21)
[2023-02-20] MEDS: FAMOTIDINE 20 MG TAB PO SCH (08:48)
[2023-02-20] MEDS: PRAMIPEXOLE 1 MG TAB PO SCH ×3 (08:48→21:58)
[2023-02-20] MEDS: SODIUM BICARBONATE TAB 650 MG TAB PO SCH ×2 (08:48→20:16)
[2023-02-20] MEDS: amLODIPine 5 MG TAB PO SCH ×2 (08:48→20:16)
[2023-02-20] MEDS: NYSTATIN 100,000 UNIT/GM POWD 15 GM TOPICAL SCH ×2 (08:48→21:58)
[2023-02-20] MEDS: PREGABALIN 75 MG CAP PO SCH ×2 (08:48→21:57)
[2023-02-20] MEDS: ASPIRIN 81 MG PO SCH (08:48)
--- NOTE | 2023-02-20 10:40 | P.PN ---
Subjective Progress Note Date: 02/18/23 Principal diagnosis: Left lower extremity wound Patient is a 77-year-old male with a past medical history Significant for hypertension hyperlipidemia renal insufficiency diabetes mellitus skin cancer presenting to the hospital for recurrent falls patient also have a lac eration to the left lower extremity prompted this infection this consultation. On today's evaluation that is 02/18/2023, the patient is afebrile, the patient is breathing comfortably, the pt denies chest shortness of cough no abdominal pain or pain to the left lower extremity Patient did have a white count of 10.76 and creatinine is 2.7 Objective - Vital Signs Vital signs: Vital Signs Temp 98.2 F 02/18/23 12:34 Pulse 56 L 02/18/23 12:34 Resp 20 02/18/23 12:34 BP 120/67 02/18/23 12:34 Pulse Ox 96 02/18/23 12:34 FiO2 21 02/18/23 08:08 Intake & Output 02/17/23 02/18/23 02/18/23 18:59 06:59 18:59 Output Total 1450 2375 Balance -1450 -2375 Output: Urine 1450 2375 Other: Voiding Method Diaper Diaper Diaper External Catheter External Catheter External Catheter - Exam GENERAL DESCRIPTION: An elderly male lying in bed in no distress RESPIRATORY SYSTEM: Unlabored breathing , decreased breath sounds at bases HEART: S1 S2 regular rate and rhythm , ABDOMEN: Soft , no tenderness EXTREMITIES: Bilaterally lower extremities are currently wrapped in Diallo wrap - Labs CBC & Chem 7: 02/20/23 07:03 02/20/23 07:03 Labs: Abnormal Lab Results - Last 24 Hours (Table) 02/17/23 02/18/23 02/18/23 Range/Units 20:04 06:37 07:16 WBC 10.76 H (4.50-10.00) X 10*3/uL RBC 2.82 L (4.40-5.60) X 10*6/uL Hgb 8.6 L (13.0-17.0) d/dL Hct 26.4 L (39.6-50.0) % RDW 15.6 H (11.5-14.5) % MPV 13.2 H (9.5-12.2) FL Neutrophils # 8.19 H (1.80-7.70) X 10*3/uL Lymphocytes # 0.82 L (0.90-5.00) X 10*3/uL Monocytes # 1.30 H (0.20-1.00) X 10*3/uL POC Glucose (mg/dL) 244 H 141 H (70-110) mg/dL 02/18/23 Range/Units 11:48 WBC (4.50-10.00) X 10*3/uL RBC (4.40-5.60) X 10*6/uL Hgb (13.0-17.0) d/dL Hct (39.6-50.0) % RDW (11.5-14.5) % MPV (9.5-12.2) FL Neutrophils # (1.80-7.70) X 10*3/uL Lymphocytes # (0.90-5.00) X 10*3/uL Monocytes # (0.20-1.00) X 10*3/uL POC Glucose (mg/dL) 260 H (70-110) mg/dL Assessment and Plan (1) Leg wound, left Current Visit: Yes Status: Acute Code(s): S81.802A - UNSPECIFIED OPEN WOUND, LEFT LOWER LEG, INITIAL ENCOUNTER SNOMED Code(s): 772383659 Plan: 1patient with a left lower extremity wound with some swelling associated but no significant redness or foul-smelling drainage clinic suspicion for secondary bacterial infection we will recommend local wound care only 2-continue local wound care with Aquacel silver dressing followed by Dilalo wrap to both lower extremity to keep the swelling down and dressing to be changed to 48- hour no need for antibiotics at this point Dictation was produced using [employer] dictation software. please excuse any grammatical, word or spelling errors.
--- NOTE | 2023-02-20 10:43 | P.PN ---
Subjective Progress Note Date: 02/19/23 Principal diagnosis: Left lower extremity wound Patient is a 77-year-old male with a past medical history Significant for hypertension hyperlipidemia renal insufficiency diabetes mellitus skin cancer presenting to the hospital for recurrent falls patient also have a lac eration to the left lower extremity prompted this infection this consultation. On today's evaluation that is 02/19/2023, the patient denies having any fever or any chills, the patient is breathing comfortably, the patient denies having any chest pain shortness of breath or cough, patient has developed painful swelling to the right antecubital fossa at the site of the previous IV which has been discontinued. Patient did have a white count of 10.76 and creatinine is 2.7 as of yesterday Objective - Vital Signs Vital signs: Vital Signs Temp 97.9 F 02/19/23 12:45 Pulse 59 L 02/19/23 12:45 Resp 18 02/19/23 12:45 BP 144/64 02/19/23 12:45 Pulse Ox 97 02/19/23 12:45 FiO2 21 02/18/23 08:08 Intake & Output 02/18/23 02/19/23 02/19/23 18:59 06:59 18:59 Output Total 1000 1000 Balance -1000 -1000 Weight 108.862 kg Output: Urine 1000 1000 Other: Voiding Method Diaper Diaper Diaper External Catheter External Catheter External Catheter - Exam GENERAL DESCRIPTION: An elderly male lying in bed in no distress RESPIRATORY SYSTEM: Unlabored breathing , decreased breath sounds at bases HEART: S1 S2 regular rate and rhythm , ABDOMEN: Soft , no tenderness EXTREMITIES: Right antecubital fossa area did have a area of swelling redness and tenderness no drainage - Labs CBC & Chem 7: 02/20/23 07:03 02/20/23 07:03 Labs: Abnormal Lab Results - Last 24 Hours (Table) 02/18/23 02/18/23 02/18/23 Range/Units 06:37 16:50 20:41 Carbon Dioxide 19.7 L (21.6-31.8) mmol/L Anion Gap 15.30 H (4.00-12.00) mmol/L BUN 48.9 H (9.0-27.0) mg/dL Creatinine 2.7 H (0.6-1.5) mg/dL Est GFR (CKD-EPI) 24 L (>=60) Glucose (70-110) mg/dL POC Glucose (mg/dL) 235 H 279 H (70-110) mg/dL 02/19/23 02/19/23 02/19/23 Range/Units 06:51 07:00 11:26 Carbon Dioxide 19.9 L (21.6-31.8) mmol/L Anion Gap 13.10 H (4.00-12.00) mmol/L BUN 52.9 H (9.0-27.0) mg/dL Creatinine 2.8 H (0.6-1.5) mg/dL Est GFR (CKD-EPI) 23 L (>=60) Glucose 123 H (70-110) mg/dL POC Glucose (mg/dL) 132 H 224 H (70-110) mg/dL Assessment and Plan (1) Leg wound, left Current Visit: Yes Status: Acute Code(s): S81.802A - UNSPECIFIED OPEN WOUND, LEFT LOWER LEG, INITIAL ENCOUNTER SNOMED Code(s): 847544662 Plan: 1patient with a left lower extremity wound with some swelling associated but no significant redness or foul-smelling drainage clinic suspicion for secondary bacterial infection we will recommend local wound care only 2-continue local wound care with Aquacel silver dressing followed by Diallo wrap to both lower extremity to keep the swelling down and dressing to be changed to 48- hour 3patient has developed inflammation at the right antecubital fossa site of previous IV which has been discontinued blood cultures will be obtained check an ultrasound patient has been empirically started on cefazolin to continue, discussed with the admitting team Dictation was produced using [employer] dictation software. please excuse any grammatical, word or spelling errors. Time with Patient: Less than 30
[2023-02-20 12:50] LABS: Glucose,Whole Blood 205 mg/dL (70-110)
[2023-02-20 13:07] LABS: RBC Morphology Normal
--- NOTE | 2023-02-20 13:23 | P.PN ---
Subjective Progress Note Date: 02/20/23 Follow-up for acute kidney injury. Renal output of 2 L in the last 24 hours Objective - Vital Signs Vital signs: Vital Signs Temp 98.1 F 02/20/23 08:02 Pulse 63 02/20/23 08:02 Resp 18 02/20/23 08:02 BP 138/62 02/20/23 08:02 Pulse Ox 96 02/20/23 08:02 FiO2 21 02/18/23 08:08 Intake & Output 02/19/23 02/20/23 02/20/23 18:59 06:59 18:59 Output Total 1200 1300 Balance -1200 -1300 Output: Urine 1200 1300 Other: Voiding Method Diaper Diaper Diaper External Catheter External Catheter External Catheter - Exam No acute distress S1-S2 heard Lungs clear Edema - Labs CBC & Chem 7: 02/20/23 07:03 02/20/23 07:03 Labs: Abnormal Lab Results - Last 24 Hours (Table) 02/19/23 02/19/23 02/20/23 Range/Units 17:01 20:25 07:03 RBC 2.55 L (4.30-5.90) m/uL Hgb 7.9 L (13.0-17.5) gm/dL Hct 24.2 L (39.0-53.0) % RDW 15.7 H (11.5-15.5) % Sodium (137-145) mmol/L Carbon Dioxide (22-30) mmol/L BUN (9-20) mg/dL Creatinine (0.66-1.25) mg/dL Glucose (74-99) mg/dL POC Glucose (mg/dL) 252 H 268 H (70-110) mg/dL 02/20/23 02/20/23 02/20/23 Range/Units 07:03 08:07 12:49 RBC (4.30-5.90) m/uL Hgb (13.0-17.5) gm/dL Hct (39.0-53.0) % RDW (11.5-15.5) % Sodium 134 L (137-145) mmol/L Carbon Dioxide 20 L (22-30) mmol/L BUN 62 H (9-20) mg/dL Creatinine 2.76 H (0.66-1.25) mg/dL Glucose 110 H (74-99) mg/dL POC Glucose (mg/dL) 135 H 205 H (70-110) mg/dL Assessment and Plan Assessment: #1 acute kidney injury secondary to CRS. -Baseline creatinine 2.2 MG per DL. -Peak creatinine of 2.9 MG per DL. #2 chronic kidney disease stage IIIB secondary to diabetic kidney disease #3 volume overload with edema #4 hyponatremia suspect hypovolemic/hyperglycemia #5 anemia with chronic kidney disease Plan: #1 renal function stable, continue to monitor off diuretics. #2 avoid nephrotoxic agents and hypotensive episodes #3 daily labs
[2023-02-20 17:16] LABS: Glucose,Whole Blood 188 mg/dL (70-110)
--- NOTE | 2023-02-20 18:09 | P.PN ---
Subjective Progress Note Date: 02/20/23 Principal diagnosis: Left lower extremity wound Patient is a 77-year-old male with a past medical history Significant for hypertension hyperlipidemia renal insufficiency diabetes mellitus skin cancer presenting to the hospital for recurrent falls patient also have a lac eration to the left lower extremity prompted this infection this consultation. On today's evaluation that is 02/20/2023, the patient remains to be afebrile, the patient is breathing comfortably, the patient denies chest pain shortness of breath or cough, no nausea no vomiting no abdominal pain and no diarrhea has been reported. Patient is complaining of pain into the right upper arm area and also some discomfort in the left lower extremity wound Patient did have a white count of 9.2 and creatinine is 2.76, blood cultures pending Objective - Vital Signs Vital signs: Vital Signs Temp 98.5 F 02/20/23 13:58 Pulse 56 L 02/20/23 13:58 Resp 18 02/20/23 13:58 BP 125/54 02/20/23 13:58 Pulse Ox 95 02/20/23 13:58 FiO2 21 02/18/23 08:08 Intake & Output 02/19/23 02/20/23 02/20/23 18:59 06:59 18:59 Output Total 1200 1300 Balance -1200 -1300 Output: Urine 1200 1300 Other: Voiding Method Diaper Diaper Diaper External Catheter External Catheter External Catheter - Exam GENERAL DESCRIPTION: An elderly male lying in bed in no distress RESPIRATORY SYSTEM: Unlabored breathing , decreased breath sounds at bases HEART: S1 S2 regular rate and rhythm , ABDOMEN: Soft , no tenderness EXTREMITIES: Right antecubital fossa area did have a area of swelling redness however slightly less than yesterday, left lower extremity wound looks clean with no surrounding redness or any foul-smelling drainage - Labs CBC & Chem 7: 02/20/23 07:03 02/20/23 07:03 Labs: Abnormal Lab Results - Last 24 Hours (Table) 02/19/23 02/20/23 02/20/23 Range/Units 20:25 07:03 07:03 RBC 2.55 L (4.30-5.90) m/uL Hgb 7.9 L (13.0-17.5) gm/dL Hct 24.2 L (39.0-53.0) % RDW 15.7 H (11.5-15.5) % Sodium 134 L (137-145) mmol/L Carbon Dioxide 20 L (22-30) mmol/L BUN 62 H (9-20) mg/dL Creatinine 2.76 H (0.66-1.25) mg/dL Glucose 110 H (74-99) mg/dL POC Glucose (mg/dL) 268 H (70-110) mg/dL 02/20/23 02/20/23 02/20/23 Range/Units 08:07 12:49 17:15 RBC (4.30-5.90) m/uL Hgb (13.0-17.5) gm/dL Hct (39.0-53.0) % RDW (11.5-15.5) % Sodium (137-145) mmol/L Carbon Dioxide (22-30) mmol/L BUN (9-20) mg/dL Creatinine (0.66-1.25) mg/dL Glucose (74-99) mg/dL POC Glucose (mg/dL) 135 H 205 H 188 H (70-110) mg/dL Assessment and Plan (1) Leg wound, left Current Visit: Yes Status: Acute Code(s): S81.802A - UNSPECIFIED OPEN WOUND, LEFT LOWER LEG, INITIAL ENCOUNTER SNOMED Code(s): 692163417 Plan: 1patient with a left lower extremity wound with some swelling associated but no significant redness or foul-smelling drainage clinic suspicion for secondary bacterial infection we will recommend local wound care only 2-continue local wound care with Aquacel silver dressing followed by Diallo wrap to both lower extremity to keep the swelling down and dressing to be changed to 48- hour 3patient has developed inflammation at the right antecubital fossa site of previous IV which has been discontinued blood cultures has been obtained, and currently pending, patient did have ultrasound that was suggestive of SVT of the right cephalic vein no DVT 4- patient to continue with cefazolin and monitor clinical course closely Family the bedside and multiple questions concerned were answered Dictation was produced using [employer] software. please excuse any grammatical, word or spelling errors. Time with Patient: Less than 30
--- NOTE | 2023-02-20 20:03 | PN ---
PROGRESS NOTE DATE OF SERVICE: 02/20/2023 SUBJECTIVE: This is a 77-year-old gentleman, who was admitted with fall and gait dysfunction, also had left bhatia cellulitis. No chest pain. No palpitation. OBJECTIVE: VITAL SIGNS: Pulse is 63, blood pressure 130/64, respirations 18. CHEST: Clear to auscultation. CARDIOVASCULAR: S1, S2. ABDOMEN: Soft. LEGS: Left bhatia cellulitis. LABORATORY DATA: Creatinine is 2.76, hemoglobin noted. ASSESSMENT: 1. Status post fall and gait dysfunction. 2. Left bhatia cellulitis. 3. Superficial thrombus of the right cephalic vein from the previous IV site. 4. Acute on chronic kidney disease, stage III. 5. Multiple medical issues. RECOMMENDATIONS: Recommend to continue current management and symptomatic treatment. Continue the antibiotics. Repeat labs. Prognosis guarded. Further recommendations to follow. MMODL / IJN: [id number] /
[2023-02-20] MEDS: TAMSULOSIN 0.4 MG CAP.ER.24H PO SCH (20:15)
[2023-02-20 21:08] LABS: Glucose,Whole Blood 221 mg/dL (70-110)
[2023-02-20] MEDS: allopurinoL 300 MG TAB PO SCH (21:57)
[2023-02-21] MEDS: HEPARIN SODIUM,PORCINE 5,000 UNIT/ML 1 ML VIAL SQ SCH ×3 (00:53→17:04)
[2023-02-21] MEDS: HYDROcodone/APAP 10-325MG 1 EACH TAB PO PRN ×2 (03:21→18:58)
[2023-02-21] MEDS: LEVOTHYROXINE 88 MCG TAB PO SCH (06:37)
[2023-02-21 07:47] LABS: Glucose,Whole Blood 128 mg/dL (70-110)
[2023-02-21] MEDS: INSULIN ASPART (NovoLOG) 100 UNIT/ML VIAL SQ SCH ×4 (08:33→20:48)
[2023-02-21] MEDS: hydrALAZINE HCL 50 MG TAB PO SCH ×3 (08:37→20:48)
[2023-02-21] MEDS: FINASTERIDE 5 MG TAB PO SCH (08:37)
[2023-02-21] MEDS: carvediloL 12.5 MG TAB PO SCH ×2 (08:37→17:05)
[2023-02-21] MEDS: FAMOTIDINE 20 MG TAB PO SCH (08:37)
[2023-02-21] MEDS: SERTRALINE 50 MG TAB PO SCH ×2 (08:37→20:48)
[2023-02-21] MEDS: ASPIRIN 81 MG PO SCH (08:37)
[2023-02-21] MEDS: amLODIPine 5 MG TAB PO SCH ×2 (08:37→20:48)
[2023-02-21] MEDS: PREGABALIN 75 MG CAP PO SCH ×2 (08:37→20:47)
[2023-02-21] MEDS: SODIUM BICARBONATE TAB 650 MG TAB PO SCH ×2 (08:37→20:48)
[2023-02-21] MEDS: NYSTATIN 100,000 UNIT/GM POWD 15 GM TOPICAL SCH ×2 (08:38→20:48)
[2023-02-21] MEDS: PRAMIPEXOLE 1 MG TAB PO SCH ×3 (08:41→20:48)
[2023-02-21 09:02] LABS: African American GFR (CKD) 24 (>60 ml/min/1.73 sqM); Anion Gap 9 mmol/L; Blood Urea Nitrogen 67 mg/dL (9-20); Calcium 8.5 mg/dL (8.4-10.2); Carbon Dioxide 20 mmol/L (22-30); Chloride 105 mmol/L (98-107); Glucose 92 mg/dL (74-99); Non-African American GFR(CKD) 21 (>60 ml/min/1.73 sqM); Potassium 5.1 mmol/L (3.5-5.1); Sodium 134 mmol/L (137-145)
[2023-02-21 09:21] LABS: HCT 23.8 % (39.0-53.0); HGB 7.7 gm/dL (13.0-17.5); MCH 30.7 pg (25.0-35.0); MCHC 32.3 g/dL (31.0-37.0); MCV 95.2 fL (80.0-100.0); Mean Platelet Volume 11.8; Platelet Count 153 k/uL (150-450); RDW 15.5 % (11.5-15.5); WBC 9.3 k/uL (3.8-10.6)
[2023-02-21 10:44] LABS: Eosinophils # (M) 0.47 k/uL (0-0.7); Monocytes # (M) 0.93 k/uL (0-1.0); Neutrophils # (M) 6.51 k/uL (1.3-7.7); Neutrophils % (M) 70 %; Nucleated Red Blood Cells 0 /100 WBC (0-0); Total Cells Counted 100
[2023-02-21 10:45] LABS: Large Platelets Present; RBC Morphology Normal
[2023-02-21 12:37] LABS: Glucose,Whole Blood 177 mg/dL (70-110)
--- NOTE | 2023-02-21 14:08 | P.PN ---
Subjective Progress Note Date: 02/21/23 Follow-up for acute kidney injury. Renal output of 2.5 L in the last 24 hours Objective - Vital Signs Vital signs: Vital Signs Temp 98.2 F 02/21/23 07:47 Pulse 55 L 02/21/23 07:47 Resp 17 02/21/23 08:00 BP 146/70 02/21/23 07:47 Pulse Ox 94 L 02/21/23 07:47 FiO2 21 02/18/23 08:08 Intake & Output 02/20/23 02/21/23 02/21/23 18:59 06:59 18:59 Intake Total 1450 540 Output Total 1200 1300 Balance 250 -760 Intake: Oral 1450 540 Output: Urine 1200 1300 Other: Voiding Method Diaper Diaper Diaper External Catheter External Catheter External Catheter - Exam No acute distress S1-S2 heard Lungs clear No Edema - Labs CBC & Chem 7: 02/21/23 07:17 02/21/23 07:17 Labs: Abnormal Lab Results - Last 24 Hours (Table) 02/20/23 02/20/23 02/21/23 Range/Units 17:15 21:06 07:17 RBC 2.50 L (4.30-5.90) m/uL Hgb 7.7 L (13.0-17.5) gm/dL Hct 23.8 L (39.0-53.0) % Sodium (137-145) mmol/L Carbon Dioxide (22-30) mmol/L BUN (9-20) mg/dL Creatinine (0.66-1.25) mg/dL POC Glucose (mg/dL) 188 H 221 H (70-110) mg/dL 02/21/23 02/21/23 02/21/23 Range/Units 07:17 07:46 12:36 RBC (4.30-5.90) m/uL Hgb (13.0-17.5) gm/dL Hct (39.0-53.0) % Sodium 134 L (137-145) mmol/L Carbon Dioxide 20 L (22-30) mmol/L BUN 67 H (9-20) mg/dL Creatinine 2.84 H (0.66-1.25) mg/dL POC Glucose (mg/dL) 128 H 177 H (70-110) mg/dL Microbiology - Last 24 Hours (Table) 02/19/23 15:27 Blood Culture - Preliminary Blood Assessment and Plan Assessment: #1 acute kidney injury secondary to CRS. -Baseline creatinine 2.2 MG per DL. -Peak creatinine of 2.9 MG per DL. #2 chronic kidney disease stage IIIB secondary to diabetic kidney disease #3 volume overload with edema #4 hyponatremia suspect hypovolemic/hyperglycemia #5 anemia with chronic kidney disease Plan: #1 renal function stable, continue to monitor off diuretics. #2 avoid nephrotoxic agents and hypotensive episodes #3 daily labs
[2023-02-21] MEDS ORDERED: DAPTOmycin 350 MG in SODIUM CHLORIDE 0.9% 50 ML IVPB SCH (17:00)
[2023-02-21 17:08] LABS: Glucose,Whole Blood 229 mg/dL (70-110)
--- NOTE | 2023-02-21 18:23 | P.PN ---
Subjective Progress Note Date: 02/21/23 Principal diagnosis: Left lower extremity wound Patient is a 77-year-old male with a past medical history Significant for hypertension hyperlipidemia renal insufficiency diabetes mellitus skin cancer presenting to the hospital for recurrent falls patient also have a lac eration to the left lower extremity prompted this infection this consultation. On today's evaluation that is 02/21/2023, the patient continues to be afebrile, the patient is breathing comfortably and denies any shortness of breath no chest pain or cough, the patient denies having any nausea and vomiting no abdominal pain and no diarrhea, Patient still have significant erythema to the right antecubital fossa with no wound or drainage Patient did have a white count of 9.3 and creatinine is 2.84, blood cultures pending Objective - Vital Signs Vital signs: Vital Signs Temp 98.0 F 02/21/23 15:10 Pulse 56 L 02/21/23 15:10 Resp 18 02/21/23 15:10 BP 125/44 02/21/23 15:10 Pulse Ox 94 L 02/21/23 15:10 FiO2 21 02/18/23 08:08 Intake & Output 02/20/23 02/21/23 02/21/23 18:59 06:59 18:59 Intake Total 1450 540 Output Total 1200 1300 Balance 250 -760 Intake: Oral 1450 540 Output: Urine 1200 1300 Other: Voiding Method Diaper Diaper Diaper External Catheter External Catheter External Catheter - Exam GENERAL DESCRIPTION: An elderly male lying in bed in no distress RESPIRATORY SYSTEM: Unlabored breathing , decreased breath sounds at bases HEART: S1 S2 regular rate and rhythm , ABDOMEN: Soft , no tenderness EXTREMITIES: Right antecubital fossa area still has significant erythema and no significant improvement - Labs CBC & Chem 7: 02/21/23 07:17 02/21/23 07:17 Labs: Abnormal Lab Results - Last 24 Hours (Table) 02/20/23 02/20/23 02/21/23 Range/Units 17:15 21:06 07:17 RBC 2.50 L (4.30-5.90) m/uL Hgb 7.7 L (13.0-17.5) gm/dL Hct 23.8 L (39.0-53.0) % Sodium (137-145) mmol/L Carbon Dioxide (22-30) mmol/L BUN (9-20) mg/dL Creatinine (0.66-1.25) mg/dL POC Glucose (mg/dL) 188 H 221 H (70-110) mg/dL 02/21/23 02/21/23 02/21/23 Range/Units 07:17 07:46 12:36 RBC (4.30-5.90) m/uL Hgb (13.0-17.5) gm/dL Hct (39.0-53.0) % Sodium 134 L (137-145) mmol/L Carbon Dioxide 20 L (22-30) mmol/L BUN 67 H (9-20) mg/dL Creatinine 2.84 H (0.66-1.25) mg/dL POC Glucose (mg/dL) 128 H 177 H (70-110) mg/dL Microbiology - Last 24 Hours (Table) 02/19/23 15:27 Blood Culture - Preliminary Blood Assessment and Plan (1) Leg wound, left Current Visit: Yes Status: Acute Code(s): S81.802A - UNSPECIFIED OPEN WOUND, LEFT LOWER LEG, INITIAL ENCOUNTER SNOMED Code(s): 240141409 Plan: 1patient with a left lower extremity wound with some swelling associated but no significant redness or foul-smelling drainage clinic suspicion for secondary bacterial infection we will recommend local wound care only 2-continue local wound care with Aquacel silver dressing followed by Diallo wrap to both lower extremity to keep the swelling down and dressing to be changed to 48- hour 3patient has developed inflammation at the right antecubital fossa site of pr evious IV which has been discontinued blood cultures has been obtained, and currently pending, patient did have ultrasound that was suggestive of SVT of the right cephalic vein no DVT 4- patient did have a significant erythema to the right antecubital fossa did not have improvement with the cefazolin and we will discontinue cefazolin and start the patient on daptomycin and see clinical response Dictation was produced using [employer] dictation software. please excuse any grammatical, word or spelling errors. Time with Patient: Less than 30
[2023-02-21 20:06] LABS: Glucose,Whole Blood 205 mg/dL (70-110)
[2023-02-21] MEDS: TAMSULOSIN 0.4 MG CAP.ER.24H PO SCH (20:47)
[2023-02-21] MEDS: allopurinoL 300 MG TAB PO SCH (20:48)
[2023-02-22] MEDS: HEPARIN SODIUM,PORCINE 5,000 UNIT/ML 1 ML VIAL SQ SCH ×3 (00:13→16:11)
--- NOTE | 2023-02-22 03:58 | PN ---
PROGRESS NOTE DATE OF SERVICE: 02/21/2023 SUBJECTIVE: This is a 77-year-old gentleman, sent after gait dysfunction, also significant infection of the bhatia, which is improving. No chest pain. No palpitation. OBJECTIVE: VITAL SIGNS: Pulse 55, blood pressure 140/70, respirations 18. CHEST: Clear to auscultation. CARDIOVASCULAR: S1, S2. ABDOMEN: Soft. LEGS: Left bhatia infection present. LABORATORY DATA: Reviewed. ASSESSMENT: 1. Status post fall and gait dysfunction. 2. Left bhatia cellulitis. 3. Superficial thrombus of the right cephalic vein from previous IV site. 4. Acute on chronic kidney disease, stage 3. 5. Multiple medical issues. RECOMMENDATIONS AND DISCUSSION: Recommend to continue current management and continue symptomatic treatment. Monitor renal functions closely. Continue the antibiotics. Prognosis guarded. Possible ECF rehab. Further recommendations to follow. FATMATA / DOMINIC: [id number] /
[2023-02-22] MEDS: LEVOTHYROXINE 88 MCG TAB PO SCH (05:46)
[2023-02-22 07:06] LABS: Glucose,Whole Blood 158 mg/dL (70-110)
[2023-02-22] MEDS: PRAMIPEXOLE 1 MG TAB PO SCH ×2 (08:14→16:11)
[2023-02-22] MEDS: carvediloL 12.5 MG TAB PO SCH (08:14)
[2023-02-22] MEDS: INSULIN ASPART (NovoLOG) 100 UNIT/ML VIAL SQ SCH ×2 (08:14→13:04)
[2023-02-22] MEDS: FINASTERIDE 5 MG TAB PO SCH (08:14)
[2023-02-22] MEDS: ASPIRIN 81 MG PO SCH (08:14)
[2023-02-22] MEDS: amLODIPine 5 MG TAB PO SCH (08:14)
[2023-02-22] MEDS: FAMOTIDINE 20 MG TAB PO SCH (08:14)
[2023-02-22] MEDS: hydrALAZINE HCL 50 MG TAB PO SCH ×2 (08:14→15:22)
[2023-02-22] MEDS: PREGABALIN 75 MG CAP PO SCH (08:14)
[2023-02-22] MEDS: NYSTATIN 100,000 UNIT/GM POWD 15 GM TOPICAL SCH (08:15)
[2023-02-22] MEDS: SODIUM BICARBONATE TAB 650 MG TAB PO SCH (08:15)
[2023-02-22] MEDS: SERTRALINE 50 MG TAB PO SCH (08:16)
[2023-02-22 08:42] LABS: Basophils # (A) 0.04 X 10*3/uL (0.00-0.10); Basophils % (A) 0.4 %; Eosinophils # (A) 0.39 X 10*3/uL (0.04-0.35); Eosinophils % (A) 4.2 %; HCT 23.8 % (39.6-50.0); HGB 7.7 d/dL (13.0-17.0); Lymphocytes # (A) 0.94 X 10*3/uL (0.90-5.00); Lymphocytes % (A) 10.1 %; MCH 30.4 pg (27.0-32.0); MCHC 32.4 d/dL (32.0-37.0); MCV 94.1 FL (80.0-97.0); Monocytes # (A) 1.17 X 10*3/uL (0.20-1.00); Monocytes % (A) 12.5 %; NRBC Per 100 WBC 0 X 10*3/uL (0.00-0.01); Neutrophils # (A) 6.68 X 10*3/uL (1.80-7.70); Neutrophils % (A) 71.4 %; Platelet Count 149 X 10*3/uL (140-440); RBC 2.53 X 10*6/uL (4.40-5.60); RDW 15.2 % (11.5-14.5); WBC 9.35 X 10*3/uL (4.50-10.00)
[2023-02-22] MEDS: HYDROcodone/APAP 10-325MG 1 EACH TAB PO PRN ×2 (08:59→16:11)
[2023-02-22 11:10] LABS: BUN/Creat Ratio 21.33 Ratio (12.00-20.00); Calcium 8.7 mg/dL (8.7-10.3); Carbon Dioxide 20.3 mmol/L (21.6-31.8); Chloride 104 mmol/L (96-109); Glucose 132 mg/dL (70-110); Potassium 5.1 mmol/L (3.5-5.5); Sodium 136 mmol/L (135-145)
[2023-02-22 11:51] LABS: Glucose,Whole Blood 285 mg/dL (70-110)
[2023-02-22 12:50] VITALS: BP 115/54; PULSE 54; RESP 16; TEMP 97.9
--- NOTE | 2023-02-22 14:37 | P.DS ---
Providers Date of admission: 02/16/23 09:21 Expected date of discharge: 02/22/23 Attending physician: Khanh Freeman Consults: 02/14/23 01:55 Consult Physician Routine Consulting Provider: David Blanco Consult Reason/Comments: BOZENA Do you want consulting provider notified?: Yes, Notify in am 02/16/23 11:54 Consult Physician Routine Consulting Provider: Nellie Patiño Consult Reason/Comments: b/l lower ext wounds, left leg wound Do you want consulting provider notified?: Yes Primary care physician: Anthony Montano Hospital Course: Final diagnosis Status post fall and gait dysfunction Left bhatia cellulitis with failure of outpatient treatment Superficial thrombus of the right cephalic vein from previous IV site Acute on chronic kidney disease, stage III Anemia of chronic kidney disease, Iron deficiency anemia Metabolic acidosis Hyperkalemia History of heart failure with preserved EF, not an exacerbation Hypertension history Obesity with a BMI of 35.4 GI prophylaxis DVT prophylaxis Full code Discharge disposition Patient is being discharged in a stable condition with guarded prognosis to [facility]. Patient will follow-up with Dr. Montano in the outpatient setting upon discharge. Patient is to continue with IV daptomycin every 48 hours for 7 doses for a total of 14 days and close outpatient follow-up with nephrology and infectious disease as scheduled. Total time taken is greater than 35 minutes. Hospital course This is a 77-year-old male who was recently admitted with falls and gait dysfunction and generalized weakness being closely monitored. Multiple medical consultations following including infectious disease and patient was maintained on antibiotics initially for lower extremity concerns for cellulitis as well as patient developed a right antecubital fossa superficial thrombophlebitis from recent IV site. Patient is continued on IV daptomycin every 48 hours and will continue to receive 7 doses for a period of 14 days. Patient continue with local wound care of the lower extremities and also outpatient follow-up with nephrology on discharge. Please refer to other consultation notes for further HPI. Patient is a diabetic on recommend continuing monitoring Accu-Cheks before meals and at bedtime. Patient to continue with renal diet as well with low potassium and low sodium diet as well as diabetic diet. Patient continue with sliding scale. Currently no reports of chest pain, shortness of breath, or palpitations. Patient is afebrile. No reports of nausea or vomiting and patient is tolerating diet. Patient will be going to [facility] today. Physical exam: Gen: This is a 77-year-old male who is awake, alert and oriented 3, well- developed, well-nourished, obese HEENT: Head is atraumatic, normocephalic. Pupils equal, round. Sclerae is anicteric. NECK: Supple. No JVD. No lymphadenopathy. No thyromegaly. LUNGS: Clear to auscultation. No wheezes or rhonchi. No intercostal retractions. HEART: Regular rate and rhythm. No murmur. ABDOMEN: Soft. Obese Bowel sounds are present. No masses. No tenderness. EXTREMITIES: No pedal edema. No calf tenderness. Swelling significantly improved NEUROLOGICAL: Patient is awake, alert and oriented x3. Cranial nerves 2 through 12 are grossly intact. Diffusely weak Please refer to medication reconciliation sheet for a list of medications. The impression and plan of care has been dictated by Danyelle Regan, Nurse Practitioner as directed. Dr. Reynaldo MD I have performed a history and examination and MDM of this patient, discussed the same with the dictator, and agree with the dictator's assessment and plan as written ,documented as a scribe. Based on total visit time, I have performed more than 50% of the visit. Patient Condition at Discharge: Fair Plan - Discharge Summary Discharge Rx Participant: Yes New Discharge Prescriptions: New DAPTOmycin [Cubicin] 350 mg IVPB Q48H 14 Days #7 each Heparin Sodium,Porcine (1 ml) [Heparin Sodium] 5,000 unit SQ Q8HR each INSULIN ASPART (NovoLOG) [NovoLOG (formulary)] 0 unit SQ ACHS each Sodium Bicarbonate Tab 650 mg PO BID tab Darbepoetin Amrit [Aranesp] 40 mcg SQ Q7D each Nystatin 100,000 Unit/gm Powd [Mycostatin Powder] 1 applic TOPICAL BID each Continue Finasteride [Proscar] 5 mg PO DAILY allopurinoL [Zyloprim] 300 mg PO HS Pramipexole [Mirapex] 1 mg PO TID Aspirin 81 mg PO DAILY amLODIPine [Norvasc] 5 mg PO BID Ferrous Sulfate [Iron (65 MG Elemental)] 325 mg PO DAILY HYDROcodone/APAP 10-325MG [Arley 10-325] 1 tab PO TID PRN #6 tab PRN Reason: Pain Sertraline [Zoloft] 50 mg PO BID Cholecalciferol [Vitamin D3 (25 Mcg = 1000 Iu)] 25 mcg PO DAILY hydrALAZINE HCL [Apresoline] 100 mg PO BID Tamsulosin HCl [Flomax] 0.4 mg PO HS carvediloL [Coreg] 12.5 mg PO BID Famotidine [Pepcid] 20 mg PO DAILY Levothyroxine Sodium [Synthroid] 175 mcg PO DAILY Pregabalin [Lyrica] 150 mg PO BID #6 cap Discontinued Spironolactone [Aldactone] 12.5 mg PO DAILY Discharge Medication List Finasteride [Proscar] 5 mg PO DAILY 05/17/17 [History] allopurinoL [Zyloprim] 300 mg PO HS 05/17/17 [History] Pramipexole [Mirapex] 1 mg PO TID 02/17/21 [History] Sertraline [Zoloft] 50 mg PO BID 02/17/21 [History] Aspirin 81 mg PO DAILY 07/09/21 [History] Cholecalciferol [Vitamin D3 (25 Mcg = 1000 Iu)] 25 mcg PO DAILY 02/02/22 [History] amLODIPine [Norvasc] 5 mg PO BID 02/02/22 [History] hydrALAZINE HCL [Apresoline] 100 mg PO BID 02/02/22 [History] Famotidine [Pepcid] 20 mg PO DAILY 02/13/23 [History] Ferrous Sulfate [Iron (65 MG Elemental)] 325 mg PO DAILY 02/13/23 [History] Levothyroxine Sodium [Synthroid] 175 mcg PO DAILY 02/13/23 [History] Tamsulosin HCl [Flomax] 0.4 mg PO HS 02/13/23 [History] carvediloL [Coreg] 12.5 mg PO BID 02/13/23 [History] DAPTOmycin [Cubicin] 350 mg IVPB Q48H 14 Days #7 each 02/22/23 [Rx] Darbepoetin Amrit [Aranesp] 40 mcg SQ Q7D each 02/22/23 [Rx] HYDROcodone/APAP 10-325MG [Arley 10-325] 1 tab PO TID PRN #6 tab 02/22/23 [Rx] Heparin Sodium,Porcine (1 ml) [Heparin Sodium] 5,000 unit SQ Q8HR each 02/22/23 [Rx] INSULIN ASPART (NovoLOG) [NovoLOG (formulary)] 0 unit SQ ACHS each 02/22/23 [Rx] Nystatin 100,000 Unit/gm Powd [Mycostatin Powder] 1 applic TOPICAL BID each 02/22/23 [Rx] Pregabalin [Lyrica] 150 mg PO BID #6 cap 02/22/23 [Rx] Sodium Bicarbonate Tab 650 mg PO BID tab 02/22/23 [Rx] Follow up Appointment(s)/Referral(s): None,Stated [REFERRING] - 1-2 days Kimi Lucero MD [STAFF PHYSICIAN] - 1 Week Patient Instructions/Handouts: Potassium Content of Foods List (DC), Chronic Kidney Disease Diet (DC) Discharge Disposition: TRANSFER TO SNF/ECF
--- NOTE | 2023-02-22 19:40 | P.PN ---
Subjective Patient is seen for f/u for BOZENA on CKD. Cr staying at 2.8-3.0 mg/dL No significant complaints. Maintained on Aranesp for anemia. No active bleeding noted. Objective - Vital Signs Vital signs: Vital Signs Temp 97.9 F 02/22/23 12:28 Pulse 54 L 02/22/23 12:28 Resp 16 02/22/23 12:28 BP 115/54 02/22/23 12:28 Pulse Ox 96 02/22/23 12:28 FiO2 21 02/18/23 08:08 Intake & Output 02/22/23 02/22/23 02/23/23 06:59 18:59 06:59 Intake Total 400 Output Total 1400 1150 Balance -1000 -1150 Intake: Oral 400 Output: Urine 1400 1150 Other: Voiding Method Diaper Diaper External Catheter # Bowel Movements 1 - Exam Awake, comfortable. No acute distress. Lungs are clear CVS S1 and S2 Abdomen is soft, nontender Extremities show no edema. - Labs CBC & Chem 7: 02/22/23 05:52 02/22/23 05:52 Labs: Abnormal Lab Results - Last 24 Hours (Table) 02/21/23 02/22/23 02/22/23 Range/Units 20:03 05:52 05:52 RBC 2.53 L (4.40-5.60) X 10*6/uL Hgb 7.7 L (13.0-17.0) d/dL Hct 23.8 L (39.6-50.0) % RDW 15.2 H (11.5-14.5) % MPV 13.0 H (9.5-12.2) FL Monocytes # 1.17 H (0.20-1.00) X 10*3/uL Eosinophils # 0.39 H (0.04-0.35) X 10*3/uL Carbon Dioxide 20.3 L (21.6-31.8) mmol/L BUN 64.0 H (9.0-27.0) mg/dL Creatinine 3.0 H (0.6-1.5) mg/dL Est GFR (CKD-EPI) 21 L (>=60) BUN/Creatinine Ratio 21.33 H (12.00-20.00) Ratio Glucose 132 H (70-110) mg/dL POC Glucose (mg/dL) 205 H (70-110) mg/dL 02/22/23 02/22/23 Range/Units 07:04 11:49 RBC (4.40-5.60) X 10*6/uL Hgb (13.0-17.0) d/dL Hct (39.6-50.0) % RDW (11.5-14.5) % MPV (9.5-12.2) FL Monocytes # (0.20-1.00) X 10*3/uL Eosinophils # (0.04-0.35) X 10*3/uL Carbon Dioxide (21.6-31.8) mmol/L BUN (9.0-27.0) mg/dL Creatinine (0.6-1.5) mg/dL Est GFR (CKD-EPI) (>=60) BUN/Creatinine Ratio (12.00-20.00) Ratio Glucose (70-110) mg/dL POC Glucose (mg/dL) 158 H 285 H (70-110) mg/dL Microbiology - Last 24 Hours (Table) 02/19/23 15:27 Blood Culture - Preliminary Blood Assessment and Plan Assessment: #1 acute kidney injury secondary to CRS. -Baseline creatinine 2.2 MG per DL. -Peak creatinine of 2.9 MG per DL. #2 chronic kidney disease stage IIIB secondary to diabetic kidney disease #3 volume overload with edema #4 hyponatremia suspect hypovolemic/hyperglycemia #5 anemia with chronic kidney disease Plan: F/u as out patient for CKD Continue with Aranesp
[2023-02-23] MEDS ORDERED: DAPTOmycin 350 MG in SODIUM CHLORIDE 0.9% 50 ML IVPB SCH (17:00)
--- NOTE | 2023-02-25 10:57 | CDI ---
Documentation Clarification Form Date: 02/18/2023 02:44:00 PM From: Elzbieta Stanford RN, CCDS Admit Date: 02/16/2023 09:21:00 AM Patient Name: Peyman Carter Visit Number: [id number] Discharge Date: 02/22/2023 04:43:00 PM ATTENTION: The Clinical Documentation Specialists (CDI) and [facility] Coding Staff appreciate your assistance in clarifying documentation. Please respond to the clarification below the line at the bottom and electronically sign. The CDI & [facility] Coding staff will review the response and follow-up if needed. Please note: Queries are made part of the Legal Health Record. If you have any questions, please contact the author of this message via ITS. Dr. Khanh Freeman Bilateral: left buttock pressure ulcer stage I, buttock, stage II left buttock is documented by Nursing Wound Care assessment starting on 02/13/2023. Based on this information and the findings below, is there an additional diagnosis that is clinically appropriate for this patient? History/Risk Factors: Cancer, Diabetes Mellitus, Hyperlipidemia, Hypertension, Osteoarthritis (OA), Prostate Disorder, Thyroid Disorder Clinical Indicators: 77-year-old male present with fall x2. Patient states that he felt very weak, and his legs gave away and unable to keep standing. He is incontinent. Voiding method: Diaper/Brief External catheter Location: Left buttock. Groin Dermatitis from incontinence issues. Wound description: Red Erythema Small open/raised area left buttock. Treatment: Cream applied to bilateral buttocks. Turn and Positioning Mycostatin Powder Topical BID Is there an additional diagnosis that is clinically appropriate for this patient? [ x] Pressure Ulcer left Buttock Stage I, Pressure ulcer Left buttock stage II present on admission [ ] Other condition, please specify [ ] Unable to determine Clinical Definitions: Stage 1 Pressure Ulcer: intact skin, non-blanching redness of local area Stage 2 Pressure Ulcer: Partial thickness, loss of dermis, pink wound bed Stage 3 Pressure Ulcer: Full thickness tissue loss Stage 4 Pressure Ulcer: Full thickness tissue loss with exposed bone, tendon, or muscle. Unstageable pressure ulcer: Full thickness tissue loss in which the base of the ulcer is covered by slough (yellow, schmid, coburn, green or brown) and/or eschar (schmid, brown or black) in the wound bed. (Template Last Revised: August 2020) MTDD
--- NOTE | 2023-02-28 12:06 | P.PN ---
Subjective Progress Note Date: 02/22/23 Principal diagnosis: Left lower extremity wound Patient is a 77-year-old male with a past medical history Significant for hypertension hyperlipidemia renal insufficiency diabetes mellitus skin cancer presenting to the hospital for recurrent falls patient also have a lac eration to the left lower extremity prompted this infection this consultation. On today's evaluation that is 02/22/2023, the patient remains to be afebrile, the patient is breathing comfortably , the patient denies chest pain or cough , the patient denies nausea or vomiting , patient denies abdominal pain and no diarrhea has been reported,, the patient erythema to the right antecubital fossa has decreased in intensity and is no drainage Patient did have a white count of 9.35 and creatinine is 3.0, blood cultures so far negative Objective - Vital Signs Vital signs: Vital Signs Temp 98.4 F 02/22/23 07:06 Pulse 60 02/22/23 07:06 Resp 18 02/22/23 07:06 BP 143/61 02/22/23 07:06 Pulse Ox 94 L 02/22/23 07:06 FiO2 21 02/18/23 08:08 Intake & Output 02/21/23 02/22/23 02/22/23 18:59 06:59 18:59 Intake Total 200 400 Output Total 1700 1400 550 Balance -1500 -1000 -550 Intake: Oral 200 400 Output: Urine 1700 1400 550 Other: Voiding Method Diaper Diaper Diaper External Catheter External Catheter - Exam GENERAL DESCRIPTION: An elderly male lying in bed in no distress RESPIRATORY SYSTEM: Unlabored breathing , decreased breath sounds at bases HEART: S1 S2 regular rate and rhythm , ABDOMEN: Soft , no tenderness EXTREMITIES: Right antecubital fossa area still has significant erythema and no significant improvement - Labs CBC & Chem 7: 02/22/23 05:52 02/22/23 05:52 Labs: Abnormal Lab Results - Last 24 Hours (Table) 02/21/23 02/21/23 02/21/23 Range/Units 12:36 17:06 20:03 RBC (4.40-5.60) X 10*6/uL Hgb (13.0-17.0) d/dL Hct (39.6-50.0) % RDW (11.5-14.5) % MPV (9.5-12.2) FL Monocytes # (0.20-1.00) X 10*3/uL Eosinophils # (0.04-0.35) X 10*3/uL Carbon Dioxide (21.6-31.8) mmol/L BUN (9.0-27.0) mg/dL Creatinine (0.6-1.5) mg/dL Est GFR (CKD-EPI) (>=60) BUN/Creatinine Ratio (12.00-20.00) Ratio Glucose (70-110) mg/dL POC Glucose (mg/dL) 177 H 229 H 205 H (70-110) mg/dL 02/22/23 02/22/23 02/22/23 Range/Units 05:52 05:52 07:04 RBC 2.53 L (4.40-5.60) X 10*6/uL Hgb 7.7 L (13.0-17.0) d/dL Hct 23.8 L (39.6-50.0) % RDW 15.2 H (11.5-14.5) % MPV 13.0 H (9.5-12.2) FL Monocytes # 1.17 H (0.20-1.00) X 10*3/uL Eosinophils # 0.39 H (0.04-0.35) X 10*3/uL Carbon Dioxide 20.3 L (21.6-31.8) mmol/L BUN 64.0 H (9.0-27.0) mg/dL Creatinine 3.0 H (0.6-1.5) mg/dL Est GFR (CKD-EPI) 21 L (>=60) BUN/Creatinine Ratio 21.33 H (12.00-20.00) Ratio Glucose 132 H (70-110) mg/dL POC Glucose (mg/dL) 158 H (70-110) mg/dL 02/22/23 Range/Units 11:49 RBC (4.40-5.60) X 10*6/uL Hgb (13.0-17.0) d/dL Hct (39.6-50.0) % RDW (11.5-14.5) % MPV (9.5-12.2) FL Monocytes # (0.20-1.00) X 10*3/uL Eosinophils # (0.04-0.35) X 10*3/uL Carbon Dioxide (21.6-31.8) mmol/L BUN (9.0-27.0) mg/dL Creatinine (0.6-1.5) mg/dL Est GFR (CKD-EPI) (>=60) BUN/Creatinine Ratio (12.00-20.00) Ratio Glucose (70-110) mg/dL POC Glucose (mg/dL) 285 H (70-110) mg/dL Microbiology - Last 24 Hours (Table) 02/19/23 15:27 Blood Culture - Preliminary Blood Assessment and Plan (1) Leg wound, left Status: Acute Code(s): S81.802A - UNSPECIFIED OPEN WOUND, LEFT LOWER LEG, INITIAL ENCOUNTER SNOMED Code(s): 022202463 Plan: 1patient with a left lower extremity wound with some swelling associated but no significant redness or foul-smelling drainage clinic suspicion for secondary bacterial infection we will recommend local wound care only 2-continue local wound care with Aquacel silver dressing followed by Diallo wrap to both lower extremity to keep the swelling down and dressing to be changed to 48- hour 3patient has developed inflammation at the right antecubital fossa site of previous IV which has been discontinued blood cultures has been obtained, and currently pending, patient did have ultrasound that was suggestive of SVT of the right cephalic vein no DVT 4- patient erythema to the right antecubital fossa has improved with addition of daptomycin, which will be continued for 10 days on discharge and close outpatient follow-up discussed with AMMONIA STILL OPERATOR for admitting team working on discharge Dictation was produced using [email or web address] dictation software. please excuse any grammatical, word or spelling errors.
== END 2023-02-22 16:43 | DRG 683 ==
LOC: EC 09:30 → 5NMEDONC 13:52 → OBSVTOIN 02-16 09:21 → 5NMEDONC 02-18 21:01
PROVIDERS: ADMIT Hospitalist; ATTEND Hospitalist
DX: N17.9 Acute kidney failure, unspecified (principal); E87.1 Hypo-osmolality and hyponatremia; I13.0 Hypertensive heart and chronic kidney disease with heart failure and stage 1 through stage 4 chronic kidney disease, or unspecified chronic kidney disease; L97.829 Non-pressure chronic ulcer of other part of left lower leg with unspecified severity; I50.32 Chronic diastolic (congestive) heart failure; I82.611 Acute embolism and thrombosis of superficial veins of right upper extremity; L03.116 Cellulitis of left lower limb; L89.322 Pressure ulcer of left buttock, stage 2; E11.22 Type 2 diabetes mellitus with diabetic chronic kidney disease; E11.65 Type 2 diabetes mellitus with hyperglycemia; N18.32 Chronic kidney disease, stage 3b; Z79.4 Long term (current) use of insulin; L89.321 Pressure ulcer of left buttock, stage 1; S81.812A Laceration without foreign body, left lower leg, initial encounter; D63.1 Anemia in chronic kidney disease; G25.81 Restless legs syndrome; F32.A Depression, unspecified; E03.9 Hypothyroidism, unspecified; D50.9 Iron deficiency anemia, unspecified; E66.9 Obesity, unspecified; Z68.35 Body mass index [BMI] 35.0-35.9, adult; N40.0 Benign prostatic hyperplasia without lower urinary tract symptoms; R29.6 Repeated falls; W01.0XXA Fall on same level from slipping, tripping and stumbling without subsequent striking against object, initial encounter; M19.90 Unspecified osteoarthritis, unspecified site; K21.9 Gastro-esophageal reflux disease without esophagitis; G89.29 Other chronic pain; F41.9 Anxiety disorder, unspecified; E87.5 Hyperkalemia; E78.5 Hyperlipidemia, unspecified; Y92.009 Unspecified place in unspecified non-institutional (private) residence as the place of occurrence of the external cause; Z79.82 Long term (current) use of aspirin; Z79.84 Long term (current) use of oral hypoglycemic drugs; Z79.890 Hormone replacement therapy; Z79.899 Other long term (current) drug therapy; Z80.0 Family history of malignant neoplasm of digestive organs; Z85.828 Personal history of other malignant neoplasm of skin; Z86.72 Personal history of thrombophlebitis; Z88.8 Allergy status to other drugs, medicaments and biological substances; Z87.891 Personal history of nicotine dependence
CPT/HCPCS: 36410; 36415; 71046; 73521; 76937; 80048; 80053; 81001; 82728; 83036; 83540; 83550; 83605; 83735; 84484; 85025; 85610; 85730; 86701; 86704; 86803; 87040; 87340; 93005; 94760; 96361; 96374; 99285

== ENCOUNTER 2023-03-07 20:30 | Inpatient (IN) | payer MEDICARE, OTHER ==
[2023-03-07] MEDS ORDERED: SODIUM CHLORIDE 0.9% 500 ML 500 ML IV STA (20:33)
--- NOTE | 2023-03-07 21:00 | ED ---
Weakness HPI - General Chief complaint: Shortness of Breath Stated complaint: Declining Time Seen by Provider: 03/07/23 20:33 Source: EMS, RN notes reviewed, old records reviewed Mode of arrival: EMS Limitations: altered mental status, physical limitation - History of Present Illness Initial comments: This is a 77-year-old male presents today for evaluation of severe shortness of breath weakness altered mental status and not feeling well. Patient comes from extended-care facility with supplemental O2 and severe shortness of breath with hypoxia. Patient himself is Tylenol able to provide history history obtained from chart patient's transfer records as well as EMS MD Complaint: generalized weakness (Severe shortness of breath and work of breathing) -: unknown Location: generalized Severity: severe Severity scale (1-10): 10 Quality: constant Consistency: constant Improves with: none Worsens with: none Context: recent illness, history of similar Associated Symptoms: shortness of breath - Related Data Home Medications Medication Instructions Recorded Confirmed Finasteride [Proscar] 5 mg PO DAILY@0800 05/17/17 03/08/23 allopurinoL [Zyloprim] 300 mg PO HS 05/17/17 03/08/23 Pramipexole [Mirapex] 1 mg PO Q8HR@0600,1400,2200 02/17/21 03/08/23 Sertraline [Zoloft] 50 mg PO BID@0800,2100 02/17/21 03/08/23 Aspirin 81 mg PO DAILY@1200 07/09/21 03/08/23 Cholecalciferol [Vitamin D3 (25 25 mcg PO DAILY@1200 02/02/22 03/08/23 Mcg = 1000 Iu)] amLODIPine [Norvasc] 5 mg PO BID@0800,1700 02/02/22 03/08/23 hydrALAZINE HCL [Apresoline] 100 mg PO BID@0800,1700 02/02/22 03/08/23 Famotidine [Pepcid] 20 mg PO DAILY@0600 02/13/23 03/08/23 Ferrous Sulfate [Iron (65 MG 325 mg PO DAILY@1200 02/13/23 03/08/23 Elemental)] Levothyroxine Sodium [Synthroid] 175 mcg PO DAILY@0600 02/13/23 03/08/23 Tamsulosin HCl [Flomax] 0.4 mg PO HS 02/13/23 03/08/23 carvediloL [Coreg] 12.5 mg PO BID@0800,1700 02/13/23 03/08/23 Acetaminophen [Tylenol] 650 mg PO Q4H PRN 03/08/23 03/08/23 Darbepoetin Amrit [Aranesp] 40 mcg SQ FR@1200 03/08/23 03/08/23 Heparin Sodium,Porcine (1 ml) 5,000 unit SQ Q8HR@0600,1400,2200 03/08/23 03/08/23 [Heparin Sodium] INSULIN ASPART (NovoLOG) [NovoLOG See Protocol SQ ACHS 03/08/23 03/08/23 (formulary)] Ipratropium-Albuterol Nebulize 3 ml INHALATION RT-Q6H PRN 03/08/23 03/08/23 [Duoneb 0.5 mg-3 mg/3 ml Soln] Magnesium Hydroxide [Milk of 7,200 mg PO Q2D PRN 03/08/23 03/08/23 Magnesia Concentrate] Na Phos,M-B/Na Phos,Di-Ba [Fleet 133 ml RECTAL DAILY PRN 03/08/23 03/08/23 Adult] Nystatin 100,000 Unit/gm Powd 1 applic TOPICAL BID 03/08/23 03/08/23 [Mycostatin Powder] Pregabalin [Lyrica] 150 mg PO Q12HR@0800,2100 03/08/23 03/08/23 SILVER sulfADIAZINE Cream 1 applic TOPICAL DAILY 03/08/23 03/08/23 [Silvadene 1% Cream] Sennosides [Senokot] 8.6 mg PO DAILY@0800 03/08/23 03/08/23 Sodium Bicarbonate Tab 650 mg PO BID@0800,1700 03/08/23 03/08/23 bisacodyL [Dulcolax] 10 mg RECTAL DAILY PRN 03/08/23 03/08/23 Previous Rx's Medication Instructions Recorded DAPTOmycin [Cubicin] 350 mg IVPB Q48H 14 Days #7 each 02/22/23 HYDROcodone/APAP 10-325MG [[place] 1 tab PO TID PRN #6 tab 02/22/23 10-325] Allergies Allergy/AdvReac Type Severity Reaction Status Date / Time enalaprilat [From Vasotec] AdvReac felt weak, Verified 03/08/23 08:05 couldn't talk erythromycin base AdvReac Nausea & Verified 03/08/23 08:05 [From Erythrocin] Vomiting Review of Systems ROS Statement: Those systems with pertinent positive or pertinent negative responses have been documented in the HPI. ROS Other: All systems not noted in ROS Statement are negative. Past Medical History Past Medical History: Cancer, Diabetes Mellitus, Hyperlipidemia, Hypertension, Osteoarthritis (OA), Prostate Disorder, Renal Disease, Thyroid Disorder Additional Past Medical History / Comment(s): Falls at home 02/13/23. skin cancer, neuropathy , restless legs History of Any Multi-Drug Resistant Organisms: None Reported Past Surgical History: Orthopedic Surgery Additional Past Surgical History / Comment(s): sinus sx. cancer removed lt ear. colonoscopy , 07-07-17 anterior cervical decompression/discectomy/fusion c3-4, c4-5 Past Anesthesia/Blood Transfusion Reactions: No Reported Reaction Past Psychological History: Anxiety, Depression Smoking Status: Former smoker Past Alcohol Use History: None Reported Past Drug Use History: None Reported - Past Family History Father Additional Family Medical History / Comment(s): aortic aneurysm Mother Family Medical History: Cancer Additional Family Medical History / Comment(s): pancreas cancer General Exam Limitations: physical limitation General appearance: alert, anxious, in distress, cachectic Head exam: Present: atraumatic, normocephalic, normal inspection Eye exam: Present: normal appearance, PERRL, EOMI. Absent: scleral icterus, conjunctival injection, periorbital swelling ENT exam: Present: normal exam, mucous membranes moist Neck exam: Present: normal inspection. Absent: tenderness, meningismus, lymphadenopathy Respiratory exam: Present: respiratory distress, wheezes, accessory muscle use, decreased breath sounds, prolonged expiratory. Absent: rales, rhonchi, stridor Cardiovascular Exam: Present: regular rate, normal rhythm, normal heart sounds. Absent: systolic murmur, diastolic murmur, rubs, gallop, clicks GI/Abdominal exam: Present: soft, normal bowel sounds. Absent: distended, tenderness, guarding, rebound, rigid Extremities exam: Present: normal inspection, full ROM, normal capillary refill. Absent: tenderness, pedal edema, joint swelling, calf tenderness Back exam: Present: normal inspection Neurological exam: Present: alert, oriented X3, CN II-XII intact Psychiatric exam: Present: normal affect, normal mood Skin exam: Present: warm, dry, intact, normal color. Absent: rash Course Vital Signs 03/07/23 03/07/23 03/07/23 20:36 22:06 22:47 Temperature 98.1 F Pulse Rate 66 66 Pulse Rate [ Pulse Oximetery ] Respiratory 22 Rate Blood Pressure 139/59 O2 Sat by Pulse 90 L Oximetry Fraction of 60 Inspired Oxygen (FIO2) 03/07/23 03/08/23 03/08/23 23:04 00:19 00:27 Temperature 101.0 F H Pulse Rate 68 70 Pulse Rate [ 78 Pulse Oximetery ] Respiratory 28 H Rate Blood Pressure O2 Sat by Pulse 97 Oximetry Fraction of 60 50 Inspired Oxygen (FIO2) 03/08/23 03/08/23 03/08/23 00:35 01:43 03:52 Temperature Pulse Rate 77 64 Pulse Rate [ Pulse Oximetery ] Respiratory 25 H Rate Blood Pressure 131/62 O2 Sat by Pulse 93 L Oximetry Fraction of 60 Inspired Oxygen (FIO2) 03/08/23 03/08/23 03/08/23 05:00 05:30 06:00 Temperature Pulse Rate 66 66 71 Pulse Rate [ Pulse Oximetery ] Respiratory 20 22 22 Rate Blood Pressure 130/58 132/57 137/58 O2 Sat by Pulse 96 95 95 Oximetry Fraction of Inspired Oxygen (FIO2) 03/08/23 03/08/23 03/08/23 06:30 07:00 07:30 Temperature Pulse Rate 69 67 77 Pulse Rate [ Pulse Oximetery ] Respiratory 20 20 20 Rate Blood Pressure 142/60 143/70 136/58 O2 Sat by Pulse 93 L 95 95 Oximetry Fraction of Inspired Oxygen (FIO2) 03/08/23 03/08/23 03/08/23 08:00 08:30 08:35 Temperature Pulse Rate 73 73 76 Pulse Rate [ Pulse Oximetery ] Respiratory 20 22 Rate Blood Pressure 151/94 147/70 O2 Sat by Pulse 95 94 L Oximetry Fraction of 60 Inspired Oxygen (FIO2) 03/08/23 03/08/23 03/08/23 08:46 08:48 09:00 Temperature Pulse Rate 74 76 71 Pulse Rate [ Pulse Oximetery ] Respiratory 18 20 Rate Blood Pressure 134/57 134/57 O2 Sat by Pulse 97 95 Oximetry Fraction of Inspired Oxygen (FIO2) 03/08/23 03/08/23 03/08/23 09:30 10:00 10:30 Temperature Pulse Rate 77 77 81 Pulse Rate [ Pulse Oximetery ] Respiratory 22 20 20 Rate Blood Pressure 141/58 O2 Sat by Pulse 94 L 91 L 93 L Oximetry Fraction of Inspired Oxygen (FIO2) 03/08/23 03/08/23 03/08/23 11:00 12:06 12:17 Temperature Pulse Rate 81 82 88 Pulse Rate [ Pulse Oximetery ] Respiratory 20 Rate Blood Pressure 148/86 O2 Sat by Pulse 92 L Oximetry Fraction of 60 Inspired Oxygen (FIO2) 03/08/23 03/08/23 12:39 14:32 Temperature 102.2 F H 101.6 F H Pulse Rate 87 81 Pulse Rate [ Pulse Oximetery ] Respiratory 36 H 28 H Rate Blood Pressure 152/62 146/80 O2 Sat by Pulse 95 96 Oximetry Fraction of Inspired Oxygen (FIO2) - Reevaluation(s) Reevaluation #1: 03/07/23 23:46 Medical records reviewed Reevaluation #2: 03/07/23 23:46 Patient's symptoms improving after being placed on BiPAP Reevaluation #3: 03/07/23 23:46 Patient informed of results and questions answered Reevaluation #4: 03/07/23 23:47 Was pt. sent in by a medical professional or institution (Dr. PA, FURNITURE SERVICER, urgent care, hospital, or jail...) When possible be specific @ -no Did you speak to anyone other than the patient for history (EMS, parent, family, police, friend...)? What history was obtained from this source @ -no Did you review nursing and triage notes (agree or disagree)? Why? @ -agree Are old charts reviewed (outside hosp., previous admission, EMS record, old EKG, old radiological studies, urgent care reports/EKG's, jail records)? Report findings @ -yes Differential Diagnosis (chest pain, altered mental status, abdominal pain women, abdominal pain men, vaginal bleeding, weakness, fever, dyspnea, syncope, headache, dizziness, GI bleed, back pain, seizure, CVA, palpatations, mental hea lth, musculoskeletal)? @ -prior EKG interpreted by me (3pts min.). @ -yes X-rays interpreted by me (1pt min.). @ -yes CT interpreted by me (1pt min.). @ -no U/S interpreted by me (1pt. min.). @ -no What testing was considered but not performed or refused? (CT, X-rays, U/S, labs)? Why? @ -none What meds were considered but not given or refused? Why? @ -none Did you discuss the management of the patient with other professionals (professionals i.e. , PA, FURNITURE SERVICER, lab, RT, psych nurse, social and human services assistant, electrician radio, teacher, chief accounting officer, case management manager)? Give summary @ -no Was smoking cessation discussed for >3mins.? @ -no Was critical care preformed (if so, how long)? @ -yes31 Were there social determinants of health that impacted care today? How? (Homelessness, low income, unemployed, alcoholism, drug addiction, transportation, low edu. Level, literacy, decrease access to med. care, correction, rehab)? @ -none Was there de-escalation of care discussed even if they declined (Discuss DNR or withdrawal of care, Hospice)? DNR status @ -no What co-morbidities impacted this encounter? (DM, HTN, Smoking, COPD, CAD, Cancer, CVA, ARF, Chemo, Hep., AIDS, mental health diagnosis, sleep apnea, mor bid obesity)? @ -none Was patient admitted / discharged? Hospital course, mention meds given and ro lb, prescriptions, significant lab abnormalities, going to OR and other pertinent info. @ - 77 male to the emergency department for evaluation. Patient presents today for evaluation of shortness of breath. Cough congestion weakness. Respiratory failure with hypoxia pneumonia and CHF. Admitted Undiagnosed new problem with uncertain prognosis? @ -no Drug Therapy requiring intensive monitoring for toxicity (Heparin, Nitro, Insulin, Cardizem)? @ -no Were any procedures done? @ -no Diagnosis/symptom? @ -Respiratory failure with hypoxia, pneumonia, CHF Acute, or Chronic, or Acute on Chronic? @ -Acute Uncomplicated (without systemic symptoms) or Complicated (systemic symptoms)? @ -Complicated Side effects of treatment? @ -no Exacerbation, Progression, or Severe Exacerbation? @ -exacerbation Poses a threat to life or bodily function? How? (Chest pain, [place], [place], pneumonia, PE, COPD, DKA, ARF, appy, cholecystitis, CVA, Diverticulitis, Homicidal, Suicidal, threat to staff... and all critical care pts) @ -yes with respiratory infection hypoxia Reevaluation #5: 03/07/23 23:47 Differential Dyspnea: Coronary syndrome, arrhythmia, tamponade, asthma, COPD, pulmonary embolism, pneumonia, pneumothorax, pulmonary effusion, anaphylaxis, diabetic ketoacidosis, flailed chest, pulmonary contusion, diaphragmatic rupture, anemia, neuromuscular, this is not meant to be an all-inclusive list. - Consultations Consultation #1: Spoke with [facility] who agrees to admit this patient EKG Findings - EKG Comments: EKG Findings:: EKG is sinus 66 W[place] 175 QRS 90 QTC 438 - EKG Results: EKG: interpreted by [facility] Medical Decision Making - Medical Decision Making 77 male to the emergency department for evaluation. Patient presents today for evaluation of shortness of breath. Cough congestion weakness. Respiratory failure with hypoxia pneumonia and CHF. - Lab Data Result diagrams: 03/15/23 05:45 03/15/23 21:00 Lab Results 03/07/23 03/07/23 03/07/23 Range/Units 20:46 20:46 20:46 WBC 15.1 H (3.8-10.6) k/uL RBC 2.60 L (4.30-5.90) m/uL Hgb 8.0 L (13.0-17.5) gm/dL Hct 25.1 L (39.0-53.0) % MCV 96.5 (80.0-100.0) fL MCH 31.0 (25.0-35.0) pg MCHC 32.1 (31.0-37.0) g/dL RDW 15.4 (11.5-15.5) % Plt Count 194 (150-450) k/uL MPV 10.7 Neutrophils % 88 % Lymphocytes % 4 % Monocytes % 6 % Eosinophils % 1 % Basophils % 0 % Neutrophils # 13.3 H (1.3-7.7) k/uL Lymphocytes # 0.6 L (1.0-4.8) k/uL Monocytes # 0.9 (0-1.0) k/uL Eosinophils # 0.2 (0-0.7) k/uL Basophils # 0.0 (0-0.2) k/uL Hypochromasia Slight PT 10.3 (9.0-12.0) sec INR 1.0 (<1.2) APTT 30.0 (22.0-30.0) sec Sodium 138 (137-145) mmol/L Potassium 4.5 (3.5-5.1) mmol/L Chloride 105 (98-107) mmol/L Carbon Dioxide 20 L (22-30) mmol/L Anion Gap 13 mmol/L BUN 66 H (9-20) mg/dL Creatinine 2.91 H (0.66-1.25) mg/dL Est GFR (CKD-EPI)AfAm 23 (>60 ml/min/1.73 sqM) Est GFR (CKD-EPI)NonAf 20 (>60 ml/min/1.73 sqM) Glucose 160 H (74-99) mg/dL Plasma Lactic Acid Michel (0.7-2.0) mmol/L Calcium 8.8 (8.4-10.2) mg/dL Phosphorus 4.9 H (2.5-4.5) mg/dL Magnesium 2.2 (1.6-2.3) mg/dL Total Bilirubin 0.7 (0.2-1.3) mg/dL AST 25 (17-59) U/L ALT 17 (4-49) U/L Alkaline Phosphatase 95 (38-126) U/L Troponin I (0.000-0.034) ng/mL NT-Pro-B Natriuret Pep pg/mL Total Protein 6.3 (6.3-8.2) g/dL Albumin 3.3 L (3.5-5.0) g/dL TSH 0.090 L (0.465-4.680) mIU/L 03/07/23 03/07/23 03/07/23 Range/Units 20:46 20:46 21:03 WBC (3.8-10.6) k/uL RBC (4.30-5.90) m/uL Hgb (13.0-17.5) gm/dL Hct (39.0-53.0) % MCV (80.0-100.0) fL MCH (25.0-35.0) pg MCHC (31.0-37.0) g/dL RDW (11.5-15.5) % Plt Count (150-450) k/uL MPV Neutrophils % % Lymphocytes % % Monocytes % % Eosinophils % % Basophils % % Neutrophils # (1.3-7.7) k/uL Lymphocytes # (1.0-4.8) k/uL Monocytes # (0-1.0) k/uL Eosinophils # (0-0.7) k/uL Basophils # (0-0.2) k/uL Hypochromasia PT (9.0-12.0) sec INR (<1.2) APTT (22.0-30.0) sec Sodium (137-145) mmol/L Potassium (3.5-5.1) mmol/L Chloride (98-107) mmol/L Carbon Dioxide (22-30) mmol/L Anion Gap mmol/L BUN (9-20) mg/dL Creatinine (0.66-1.25) mg/dL Est GFR (CKD-EPI)AfAm (>60 ml/min/1.73 sqM) Est GFR (CKD-EPI)NonAf (>60 ml/min/1.73 sqM) Glucose (74-99) mg/dL Plasma Lactic Acid Michel 1.1 (0.7-2.0) mmol/L Calcium (8.4-10.2) mg/dL Phosphorus (2.5-4.5) mg/dL Magnesium (1.6-2.3) mg/dL Total Bilirubin (0.2-1.3) mg/dL AST (17-59) U/L ALT (4-49) U/L Alkaline Phosphatase (38-126) U/L Troponin I 0.149 H* (0.000-0.034) ng/mL NT-Pro-B Natriuret Pep 4460 pg/mL Total Protein (6.3-8.2) g/dL Albumin (3.5-5.0) g/dL TSH (0.465-4.680) mIU/L - EKG Data -: EKG Interpreted by Me - Radiology Data Radiology results: report reviewed (Chest x-ray positive for CHF and multifocal), image reviewed Critical Care Time Critical Care Time: Yes Total Critical Care Time: 31 Disposition Clinical Impression: Systolic congestive heart failure, Acute respiratory distress syndrome in adult, Acute exacerbation of chronic obstructive pulmonary disease, Congestive heart failure, Weakness, Renal insufficiency, Acute respiratory failure, Hypoxia, Acute pulmonary edema Disposition: ADMITTED IP TO THIS HOSP Condition: Serious Is patient prescribed a controlled substance at d/c from ED?: No Time of Disposition: 23:50
[2023-03-07 21:07] LABS: Basophils % (A) 0 %; Eosinophils # (A) 0.2 k/uL (0-0.7); Eosinophils % (A) 1 %; HCT 25.1 % (39.0-53.0); Hypochromasia Slight; Lymphocytes # (A) 0.6 k/uL (1.0-4.8); Lymphocytes % (A) 4 %; MCHC 32.1 g/dL (31.0-37.0); MCV 96.5 fL (80.0-100.0); Mean Platelet Volume 10.7; Monocytes # (A) 0.9 k/uL (0-1.0); Monocytes % (A) 6 %; Neutrophils # (A) 13.3 k/uL (1.3-7.7); Neutrophils % (A) 88 %; Platelet Count 194 k/uL (150-450); RDW 15.4 % (11.5-15.5); WBC 15.1 k/uL (3.8-10.6)
[2023-03-07 21:15] LABS: Prothrombin Time 10.3 sec (9.0-12.0)
[2023-03-07 21:21] LABS: ALT 17 U/L (4-49); AST 25 U/L (17-59); African American GFR (CKD) 23 (>60 ml/min/1.73 sqM); Albumin 3.3 g/dL (3.5-5.0); Alkaline Phosphatase 95 U/L (38-126); Anion Gap 13 mmol/L; Blood Urea Nitrogen 66 mg/dL (9-20); Calcium 8.8 mg/dL (8.4-10.2); Carbon Dioxide 20 mmol/L (22-30); Chloride 105 mmol/L (98-107); Glucose 160 mg/dL (74-99); Magnesium 2.2 mg/dL (1.6-2.3); Non-African American GFR(CKD) 20 (>60 ml/min/1.73 sqM); Phosphorus 4.9 mg/dL (2.5-4.5); Potassium 4.5 mmol/L (3.5-5.1); Sodium 138 mmol/L (137-145); Total Bilirubin 0.7 mg/dL (0.2-1.3); Total Protein 6.3 g/dL (6.3-8.2)
--- NOTE | 2023-03-07 21:35 | XR ---
EXAMINATION TYPE: XR chest 1V portable DATE OF EXAM: 03/07/2023 9:32 PM CLINICAL INDICATION:Male, 77 years old with history of cough; [facility] COMPARISON: 02/13/2023 TECHNIQUE: XR chest 1V portable Frontal view of the chest. FINDINGS: Lungs/Pleura: Multifocal airspace opacities. No evidence of pneumothorax or pleural effusion. Pulmonary vascularity: Unremarkable. Heart/mediastinum: Cardiomediastinal silhouette is unremarkable. Musculoskeletal: No acute osseous pathology. Other findings: None IMPRESSION: Multifocal airspace opacities concerning for pneumonia.
[2023-03-07] MEDS ORDERED: IPRATROPIUM-ALBUTEROL 3 ML NEB INHALATION STA ×2 (21:52→23:36)
[2023-03-07] MEDS ORDERED: FUROSEMIDE 10 MG/ML 10 ML VIAL IV STA (21:53)
[2023-03-07] MEDS ORDERED: ONDANSETRON 4 MG/2 ML VIAL IVP PRN (23:36)
[2023-03-07] MEDS ORDERED: AZITHROMYCIN 500 MG in SODIUM CHLORIDE 0.9% 250 ML IVPB STA (23:36)
[2023-03-07] MEDS ORDERED: PNEUMONIA PROTOCOL UTILIZED 1 EACH MISC PO PRN (23:36)
[2023-03-07] MEDS ORDERED: NALOXONE 0.4 MG/ML 1 ML VIAL IV PRN (23:36)
[2023-03-07] MEDS ORDERED: DEXTROSE 50% SYRINGE 50 ML IVP PRN ×2 (23:40)
[2023-03-07] MEDS ORDERED: ACETAMINOPHEN TAB 325 MG TAB PO PRN (23:41)
[2023-03-08 01:15] LABS: Glucose,Whole Blood 141 mg/dL (70-110)
[2023-03-08] MEDS: INSULIN ASPART (NovoLOG) 100 UNIT/ML VIAL SQ SCH ×7 (01:21→23:49)
[2023-03-08] MEDS ORDERED: LORazepam 2 MG/ML INJ IV STA (03:03)
[2023-03-08 03:34] LABS: Appearance,Urine Clear (Clear); Bilirubin,Urine Negative (Negative); Blood,Urine Negative (Negative); Color,Urine Colorless; Glucose,Urine (UA) Negative (Negative); Hyaline Casts,Urine 1 /lpf (0-2); Ketones,Urine Negative (Negative); Leukocyte Esterase,Urine Negative (Negative); Nitrite,Urine Negative (Negative); PH, Urine 5.5 (5.0-8.0); Protein,Urine 1+ (Negative); RBC,Urine 1 /hpf (0-5); Squamous Epithelial Cell,Urine <1 /hpf (0-4); Urobilinogen,Urine <2.0 mg/dL (<2.0); WBC,Urine <1 /hpf (0-5)
[2023-03-08 03:54] LABS: Glucose,Whole Blood 142 mg/dL (70-110)
--- NOTE | 2023-03-08 04:51 | P.CNPUL ---
History of Present Illness Consult date: 03/08/23 Requesting physician: Juan Manuel Reich Reason for consult: pneumonia Chief complaint: Shortness of breath and nonproductive cough History of present illness: I am seeing this patient in new consultation today 03/08/2023 in the emergency room after he presented late last night from his rehab facility with complaints of shortness of breath and nonproductive cough. Patient is a 77-year-old white male with past medical history significant for hypertension, hyperlipidemia, diabetes mellitus type 2, chronic kidney disease, obesity, hypothyroidism, and prior back surgeries. Denies any history of pulmonary disease including COPD or asthma. Ex-smoker of over 30 years ago. Patient did have a recent hospital admission from February 13 through February 22 for falls and lower extremity cellulitis. He was discharged to [facility], and was receiving IV Daptomycin through a right upper extremity PICC. Patient did return to the emergency room late last night via EMS for complaints of progressively worsening shortness of breath and nonproductive cough that started since his recent hospital discharge. He denies any fevers, chills, myalgias, chest pain. He does admit lower extremity swelling. His lower extremities are erythemic, but states that they're improved since initiating his IV antibiotics. Patient is currently sitting up in bed, on BiPAP with settings 12/6 and FiO2 of 60%. He appears fairly comfortable, and not in any acute respiratory distress. Respiratory rate is in the mid 20s and he is achieving tidal volumes around 600- 700. Chest x-ray on admission shows multifocal airspace opacities concerning for pneumonia. Patient has been started on empiric antibiotics. Currently afebrile. CBC shows leukocytosis with a WBC count of 15.1, hemoglobin 8, hematocrit 25.1, platelets 194. BMP from admission shows a sodium 138, potassium 4.5, chloride 105, serum bicarb 20, BUN 66, creatinine 2.91, glucose 160. Lactic acid level was 1.1. Troponins are 0.149 and 0.155 respectively. NT proBNP 4460. Patient was given a one-time dose of Lasix 80 mg in the ER. He appears hemodynamically stable at this time. Patient will be monitored on the cardiac stepdown unit. Review of Systems REVIEW OF SYSTEMS: CONSTITUTIONAL: Denies any recent significant weight loss or weight gain, but does not weigh himself EYES: Denies change in vision. EARS, NOSE, MOUTH, THROAT: Denies headaches, denies sore throat. CARDIOVASCULAR: Denies chest pain, palpitations or syncopal episodes. admits lower extremity swelling RESPIRATORY: Admits shortness of breath at rest and persistent nonproductive cough GASTROINTESTINAL: Denies change in appetite, abdominal pain, nausea and vomiting, or diarrhea GENITOURINARY: Denies hematuria, denies infections. MUSKULOSKELETAL: Denies pain, denies swelling. INTEGUMENTARY: admits lower extremity redness, not particularly painful or warm NEUROLOGICAL: Denies recent memory loss, no recent seizure activity. PSYCHIATRIC: Denies anxiety, denies depression. HEMATOLOGIC/LYMPHATIC: Admits chronic anemia, denies enlarged lymph node Past Medical History Past Medical History: Cancer, Diabetes Mellitus, Hyperlipidemia, Hypertension, Osteoarthritis (OA), Prostate Disorder, Renal Disease, Thyroid Disorder Additional Past Medical History / Comment(s): Falls at home 02/13/23. skin cancer, neuropathy , restless legs History of Any Multi-Drug Resistant Organisms: None Reported Past Surgical History: Orthopedic Surgery Additional Past Surgical History / Comment(s): sinus sx. cancer removed lt ear. colonoscopy , 07-07-17 anterior cervical decompression/discectomy/fusion c3-4, c4-5 Past Anesthesia/Blood Transfusion Reactions: No Reported Reaction Past Psychological History: Anxiety, Depression Smoking Status: Former smoker Past Alcohol Use History: None Reported Past Drug Use History: None Reported - Past Family History Father Additional Family Medical History / Comment(s): aortic aneurysm Mother Family Medical History: Cancer Additional Family Medical History / Comment(s): pancreas cancer Medications and Allergies Home Medications Medication Instructions Recorded Confirmed Type Finasteride [Proscar] 5 mg PO DAILY 05/17/17 02/13/23 History allopurinoL [Zyloprim] 300 mg PO HS 05/17/17 02/13/23 History Pramipexole [Mirapex] 1 mg PO TID 02/17/21 02/13/23 History Sertraline [Zoloft] 50 mg PO BID 02/17/21 02/13/23 History Aspirin 81 mg PO DAILY 07/09/21 02/13/23 History Cholecalciferol [Vitamin D3 (25 25 mcg PO DAILY 02/02/22 02/13/23 History Mcg = 1000 Iu)] amLODIPine [Norvasc] 5 mg PO BID 02/02/22 02/13/23 History hydrALAZINE HCL [Apresoline] 100 mg PO BID 02/02/22 02/13/23 History Famotidine [Pepcid] 20 mg PO DAILY 02/13/23 02/13/23 History Ferrous Sulfate [Iron (65 MG 325 mg PO DAILY 02/13/23 02/13/23 History Elemental)] Levothyroxine Sodium [Synthroid] 175 mcg PO DAILY 02/13/23 02/13/23 History Tamsulosin HCl [Flomax] 0.4 mg PO HS 02/13/23 02/13/23 History carvediloL [Coreg] 12.5 mg PO BID 02/13/23 02/13/23 History DAPTOmycin [Cubicin] 350 mg IVPB Q48H 14 Days #7 each 02/22/23 Rx Darbepoetin Amrit [Aranesp] 40 mcg SQ Q7D each 02/22/23 Rx HYDROcodone/APAP 10-325MG [[place] 1 tab PO TID PRN #6 tab 02/22/23 Rx 10-325] Heparin Sodium,Porcine (1 ml) 5,000 unit SQ Q8HR each 02/22/23 Rx [Heparin Sodium] INSULIN ASPART (NovoLOG) [NovoLOG 0 unit SQ ACHS each 02/22/23 Rx (formulary)] Nystatin 100,000 Unit/gm Powd 1 applic TOPICAL BID each 02/22/23 Rx [Mycostatin Powder] Pregabalin [Lyrica] 150 mg PO BID #6 cap 02/22/23 Rx Sodium Bicarbonate Tab 650 mg PO BID tab 02/22/23 Rx Allergies Allergy/AdvReac Type Severity Reaction Status Date / Time enalaprilat [From Vasotec] Allergy felt weak, Verified 03/07/23 20:44 couldn't talk erythromycin base AdvReac Nausea & Verified 03/07/23 20:44 [From Erythrocin] Vomiting Physical Exam Vitals: Vital Signs Temp Pulse Resp BP Pulse Ox FiO2 03/08/23 03:52 60 03/08/23 01:43 64 25 H 131/62 93 L 03/08/23 00:35 77 03/08/23 00:27 70 50 03/07/23 23:04 68 03/07/23 22:47 66 03/07/23 22:06 60 03/07/23 20:36 98.1 F 66 22 139/59 90 L Intake and Output 03/07/23 03/07/23 03/08/23 14:59 22:59 06:59 Other: Weight 122.47 kg GENERAL EXAM: Alert, 77-year-old obese white male, fairly comfortable in no apparent distress. HEAD: Normocephalic and atraumatic EYES: Normal reaction of pupils, equal size. NOSE: Clear with pink turbinates. THROAT: No erythema or exudates. NECK: No masses, no JVD. CHEST: No chest wall deformity. LUNGS: Equal air entry with bilateral inspiratory crackles. On BiPAP. No conversational dyspnea or accessory muscle use.. CVS: S1 and S2 normal with no audible murmur, regular rhythm. No extra heart sounds ABDOMEN: Obese abdomen, large abdominal hernia, no hepatosplenomegaly, active bowel sounds, no guarding or rigidity. SPINE: No scoliosis or deformity SKIN: Bilateral lower extremities are mildly erythemic, not particularly warm, non-painful CENTRAL NERVOUS SYSTEM: No focal deficits, tone is normal in all 4 extremities. EXTREMITIES: There is 3+ bilateral lower extremity pitting edema, with mild erythema. No clubbing, or cyanosis. Peripheral pulses are intact. Results - Laboratory Findings CBC and BMP: 03/07/23 20:46 03/07/23 20:46 PT/INR, D-dimer PT 10.3 sec (9.0-12.0) 03/07/23 20:46 INR 1.0 (<1.2) 03/07/23 20:46 Abnormal lab findings: Abnormal Labs 03/07/23 03/07/23 03/07/23 20:46 20:46 20:46 WBC 15.1 H RBC 2.60 L Hgb 8.0 L Hct 25.1 L Neutrophils # 13.3 H Lymphocytes # 0.6 L Carbon Dioxide 20 L BUN 66 H Creatinine 2.91 H Glucose 160 H POC Glucose (mg/dL) Phosphorus 4.9 H Troponin I 0.149 H* Albumin 3.3 L TSH 0.090 L Urine Protein 03/08/23 03/08/23 03/08/23 01:08 01:13 01:15 WBC RBC Hgb Hct Neutrophils # Lymphocytes # Carbon Dioxide BUN Creatinine Glucose POC Glucose (mg/dL) 141 H Phosphorus Troponin I 0.155 H* Albumin TSH Urine Protein 1+ H 03/08/23 03:43 WBC RBC Hgb Hct Neutrophils # Lymphocytes # Carbon Dioxide BUN Creatinine Glucose POC Glucose (mg/dL) 142 H Phosphorus Troponin I Albumin TSH Urine Protein - Diagnostic Findings Chest x-ray: image reviewed Assessment and Plan Assessment: Acute hypoxemic respiratory failure, on BiPAP, secondary to suspected healthcare associated pneumonia. Chest x-ray on arrival shows multi-focal airspace opacities concerning for pneumonia versus asymmetric pulmonary edema. Leukocytosis, secondary to above Bilateral lower extremity edema and recent treatment for cellulitis Elevated troponins, rule out Non-STEMI Anemia of chronic disease Chronic kidney disease stage III Diabetes mellitus type 2 Benign essential hypertension Hyperlipidemia Hypothyroidism Benign prostatic hyperplasia Obesity, with a BMI of 39.9 kg/m Plan: Patient medications, labs, chest x-ray reviewed Continue BiPAP with current settings Continue empiric antibiotics Check procalcitonin Continue Lasix for lower extremity edema repeat chest x-ray in the AM Cardiology has been consulted for elevated troponins We will continue to follow, and further recommendations are forthcoming I have personally seen and examined the patient, performed the documentation and the assessment and plan as written. Number of minutes spent on the visit:20 Time with Patient: Greater than 30
[2023-03-08 05:36] LABS: HCT 23.4 % (39.0-53.0); HGB 7.5 gm/dL (13.0-17.5); Hypochromasia Moderate; MCH 31.2 pg (25.0-35.0); MCV 97.4 fL (80.0-100.0); Mean Platelet Volume 12.7; Platelet Count 197 k/uL (150-450); RDW 15.2 % (11.5-15.5)
[2023-03-08 05:59] LABS: Monocytes # (M) 1.12 k/uL (0-1.0); Neutrophils # (M) 12.18 k/uL (1.3-7.7); Neutrophils % (M) 87 %; Nucleated Red Blood Cells 0 /100 WBC (0-0); Total Cells Counted 100
--- NOTE | 2023-03-08 07:54 | XR ---
EXAMINATION TYPE: XR chest 1V portable DATE OF EXAM: 03/08/2023 6:29 AM CLINICAL INDICATION:Male, 77 years old with history of pneumonia; [facility] COMPARISON: Chest radiographs from 03/07/2023 TECHNIQUE: XR chest 1V portable Frontal view of the chest. FINDINGS: Lungs/Pleura: Similar multifocal airspace opacities. No evidence of pneumothorax or pleural effusion. Pulmonary vascularity: Unremarkable. Heart/mediastinum: Cardiomediastinal silhouette is unremarkable. Musculoskeletal: No acute osseous pathology. IMPRESSION: Similar multifocal airspace opacities given the degree of inspiration.
[2023-03-08] MEDS: ALBUTEROL NEBULIZED 2.5 MG/3 ML INHALATION SCH ×4 (08:33→20:30)
[2023-03-08 08:36] LABS: Glucose,Whole Blood 150 mg/dL (70-110)
[2023-03-08 08:38] LABS: ALT 16 U/L (4-49); AST 25 U/L (17-59); African American GFR (CKD) 24 (>60 ml/min/1.73 sqM); Alkaline Phosphatase 75 U/L (38-126); Anion Gap 13 mmol/L; Blood Urea Nitrogen 67 mg/dL (9-20); Calcium 8.8 mg/dL (8.4-10.2); Carbon Dioxide 19 mmol/L (22-30); Chloride 108 mmol/L (98-107); Glucose 134 mg/dL (74-99); Magnesium 2.1 mg/dL (1.6-2.3); Non-African American GFR(CKD) 21 (>60 ml/min/1.73 sqM); Phosphorus 5.8 mg/dL (2.5-4.5); Potassium 4.6 mmol/L (3.5-5.1); Sodium 140 mmol/L (137-145); Total Bilirubin 0.6 mg/dL (0.2-1.3); Total Protein 5.8 g/dL (6.3-8.2)
[2023-03-08] MEDS: FUROSEMIDE 10 MG/ML 4 ML VIAL IV SCH ×2 (08:47→20:50)
[2023-03-08] MEDS ORDERED: FUROSEMIDE 10 MG/ML 2 ML VIAL IV SCH (09:00)
[2023-03-08] MEDS ORDERED: bisacodyL 10 MG SUPP RECTAL PRN (09:03)
[2023-03-08] MEDS ORDERED: NA PHOS,M-B/NA PHOS,DI-BA 133 ML ENEMA RECTAL PRN (09:12)
--- NOTE | 2023-03-08 09:25 | P.HPIM ---
History of Present Illness this is a pleasant 77 years old male with past medical history of Diabetes Mellitus, Hyperlipidemia, Hypertension, Osteoarthritis, cervical spine decompression and fusion surgery. PCP is Dr. Blount patient was sent from our with for shortness of breathwith hypoxia and saturating 81. 82% on 4 L oxygen via nasal cannula. Right upper extremity PICC line patient last time he was discharged on daptomycin every 48 hours 14 days.pat ient finished treatment and his lower extremity cellulitis is improving patient currently on BiPAP, with oxygen saturation 97%. Afebrile. Labs showed leukocytosis of 14,000, hemoglobin 7.5 creatinine is elevated at 2.8 which is at baseline of 2.2-3.0 Troponin is elevated at 0.15, 0.13.proBNP 4460. TSH is low at 0.09 Urine analysis is not suspicious for infection. chest x-ray: confluent bilateral Multifocal airspace opacities patient is a started on ceftriaxone, Zithromax IV Lasix Review of Systems Review of systems CONSTITUTIONAL: No fever, no malaise, no fatigue. HEENT: No recent visual problems or hearing problems. Denied any sore throat. CARDIOVASCULAR: No orthopnea, PND, no palpitations, no syncope. PULMONARY: No shortness of breath, no cough, no hemoptysis. GASTROINTESTINAL: No diarrhea, no nausea, no vomiting, no abdominal pain. N ormoactive bowel sounds. NEUROLOGICAL: No headaches, no weakness, no numbness. HEMATOLOGICAL: Denies any bleeding or petechiae. GENITOURINARY: Denies any burning micturition, frequency, or urgency. MUSCULOSKELETAL/RHEUMATOLOGICAL: Denies any joint pain, swelling, or any muscle pain. ENDOCRINE: Denies any polyuria or polydipsia. Past Medical History Past Medical History: Cancer, Diabetes Mellitus, Hyperlipidemia, Hypertension, Osteoarthritis (OA), Prostate Disorder, Renal Disease, Thyroid Disorder Additional Past Medical History / Comment(s): Falls at home 02/13/23. skin cancer, neuropathy , restless legs History of Any Multi-Drug Resistant Organisms: None Reported Past Surgical History: Orthopedic Surgery Additional Past Surgical History / Comment(s): sinus sx. cancer removed lt ear. colonoscopy , 07-07-17 anterior cervical decompression/discectomy/fusion c3-4, c4-5 Past Anesthesia/Blood Transfusion Reactions: No Reported Reaction Past Psychological History: Anxiety, Depression Smoking Status: Former smoker Past Alcohol Use History: None Reported Past Drug Use History: None Reported - Past Family History Father Additional Family Medical History / Comment(s): aortic aneurysm Mother Family Medical History: Cancer Additional Family Medical History / Comment(s): pancreas cancer Medications and Allergies Home Medications Medication Instructions Recorded Confirmed Type Finasteride [Proscar] 5 mg PO DAILY@0800 05/17/17 03/08/23 History allopurinoL [Zyloprim] 300 mg PO HS 05/17/17 03/08/23 History Pramipexole [Mirapex] 1 mg PO Q8HR@0600,1400,2200 02/17/21 03/08/23 History Sertraline [Zoloft] 50 mg PO BID@0800,2100 02/17/21 03/08/23 History Aspirin 81 mg PO DAILY@1200 07/09/21 03/08/23 History Cholecalciferol [Vitamin D3 (25 25 mcg PO DAILY@1200 02/02/22 03/08/23 History Mcg = 1000 Iu)] amLODIPine [Norvasc] 5 mg PO BID@0800,1700 02/02/22 03/08/23 History hydrALAZINE HCL [Apresoline] 100 mg PO BID@0800,1700 02/02/22 03/08/23 History Famotidine [Pepcid] 20 mg PO DAILY@0600 02/13/23 03/08/23 History Ferrous Sulfate [Iron (65 MG 325 mg PO DAILY@1200 02/13/23 03/08/23 History Elemental)] Levothyroxine Sodium [Synthroid] 175 mcg PO DAILY@0600 02/13/23 03/08/23 History Tamsulosin HCl [Flomax] 0.4 mg PO HS 02/13/23 03/08/23 History carvediloL [Coreg] 12.5 mg PO BID@0800,1700 02/13/23 03/08/23 History DAPTOmycin [Cubicin] 350 mg IVPB Q48H 14 Days #7 each 02/22/23 03/08/23 Rx HYDROcodone/APAP 10-325MG [[place] 1 tab PO TID PRN #6 tab 02/22/23 03/08/23 Rx 10-325] Acetaminophen [Tylenol] 650 mg PO Q4H PRN 03/08/23 03/08/23 History Darbepoetin Amrit [Aranesp] 40 mcg SQ FR@1200 03/08/23 03/08/23 History Heparin Sodium,Porcine (1 ml) 5,000 unit SQ Q8HR@0600,1400,2200 03/08/23 History [Heparin Sodium] INSULIN ASPART (NovoLOG) [NovoLOG See Protocol SQ ACHS 03/08/23 03/08/23 History (formulary)] Ipratropium-Albuterol Nebulize 3 ml INHALATION RT-Q6H PRN 03/08/23 03/08/23 History [Duoneb 0.5 mg-3 mg/3 ml Soln] Magnesium Hydroxide [Milk of 7,200 mg PO Q2D PRN 03/08/23 03/08/23 History Magnesia Concentrate] Na Phos,M-B/Na Phos,Di-Ba [Fleet 133 ml RECTAL DAILY PRN 03/08/23 03/08/23 History Adult] Nystatin 100,000 Unit/gm Powd 1 applic TOPICAL BID 03/08/23 03/08/23 History [Mycostatin Powder] Pregabalin [Lyrica] 150 mg PO Q12HR@0800,2100 03/08/23 03/08/23 History SILVER sulfADIAZINE Cream 1 applic TOPICAL DAILY 03/08/23 03/08/23 History [Silvadene 1% Cream] Sennosides [Senokot] 8.6 mg PO DAILY@0800 03/08/23 03/08/23 History Sodium Bicarbonate Tab 650 mg PO BID@0800,1700 03/08/23 03/08/23 History bisacodyL [Dulcolax] 10 mg RECTAL DAILY PRN 03/08/23 03/08/23 History Allergies Allergy/AdvReac Type Severity Reaction Status Date / Time enalaprilat [From Vasotec] AdvReac felt weak, Verified 03/08/23 08:05 couldn't talk erythromycin base AdvReac Nausea & Verified 03/08/23 08:05 [From Erythrocin] Vomiting Physical Exam Vitals: Vital Signs Temp Pulse Resp BP Pulse Ox FiO2 03/08/23 08:48 76 18 134/57 97 03/08/23 08:46 74 03/08/23 08:35 76 60 03/08/23 03:52 60 03/08/23 01:43 64 25 H 131/62 93 L 03/08/23 00:35 77 03/08/23 00:27 70 50 03/07/23 23:04 68 03/07/23 22:47 66 03/07/23 22:06 60 03/07/23 20:36 98.1 F 66 22 139/59 90 L Intake and Output 03/07/23 03/08/23 03/08/23 22:59 06:59 14:59 Other: Weight 122.47 kg -GENERAL: The patient is alert and oriented x3, not in any acute distress. obese HEENT: Pupils are round and equally reacting to light. EOMI. No scleral icterus. No conjunctival pallor. Normocephalic, atraumatic. No pharyngeal erythema. No thyromegaly. CARDIOVASCULAR: S1 and S2 present. No murmurs, rubs, or gallops. -PULMONARY: Chest is clear to auscultation, no wheezing . degrees Estephanie on both sides with crepitation. Patient is currently on BiPAP ABDOMEN: Soft, nontender, nondistended, normoactive bowel sounds. No palpable organomegaly. MUSCULOSKELETAL: No joint swelling or deformity. -EXTREMITIES: No cyanosis, clubbing,, bilateral pitting leg edema. there is a small wound in the left lower extremity. Bilateral discoloration and erythema of both lower extremity most likely secondary to status dermatitis NEUROLOGICAL: Gross neurological examination did not reveal any focal deficits. SKIN: No rashes. no petechiae. Results CBC & Chem 7: 03/08/23 04:42 03/08/23 01:15 Labs: Abnormal Lab Results - Last 24 Hours (Table) 03/07/23 03/07/23 03/07/23 Range/Units 20:46 20:46 20:46 WBC 15.1 H (3.8-10.6) k/uL RBC 2.60 L (4.30-5.90) m/uL Hgb 8.0 L (13.0-17.5) gm/dL Hct 25.1 L (39.0-53.0) % Neutrophils # 13.3 H (1.3-7.7) k/uL Neutrophils # (Manual) (1.3-7.7) k/uL Lymphocytes # 0.6 L (1.0-4.8) k/uL Lymphocytes # (Manual) (1.0-4.8) k/uL Monocytes # (Manual) (0-1.0) k/uL Chloride (98-107) mmol/L Carbon Dioxide 20 L (22-30) mmol/L BUN 66 H (9-20) mg/dL Creatinine 2.91 H (0.66-1.25) mg/dL Glucose 160 H (74-99) mg/dL POC Glucose (mg/dL) (70-110) mg/dL Phosphorus 4.9 H (2.5-4.5) mg/dL Troponin I 0.149 H* (0.000-0.034) ng/mL Total Protein (6.3-8.2) g/dL Albumin 3.3 L (3.5-5.0) g/dL TSH 0.090 L (0.465-4.680) mIU/L Urine Protein (Negative) 03/08/23 03/08/23 03/08/23 Range/Units 01:08 01:13 01:15 WBC (3.8-10.6) k/uL RBC (4.30-5.90) m/uL Hgb (13.0-17.5) gm/dL Hct (39.0-53.0) % Neutrophils # (1.3-7.7) k/uL Neutrophils # (Manual) (1.3-7.7) k/uL Lymphocytes # (1.0-4.8) k/uL Lymphocytes # (Manual) (1.0-4.8) k/uL Monocytes # (Manual) (0-1.0) k/uL Chloride (98-107) mmol/L Carbon Dioxide (22-30) mmol/L BUN (9-20) mg/dL Creatinine (0.66-1.25) mg/dL Glucose (74-99) mg/dL POC Glucose (mg/dL) 141 H (70-110) mg/dL Phosphorus (2.5-4.5) mg/dL Troponin I 0.155 H* (0.000-0.034) ng/mL Total Protein (6.3-8.2) g/dL Albumin (3.5-5.0) g/dL TSH (0.465-4.680) mIU/L Urine Protein 1+ H (Negative) 03/08/23 03/08/23 03/08/23 Range/Units 01:15 03:43 04:42 WBC 14.0 H (3.8-10.6) k/uL RBC 2.40 L (4.30-5.90) m/uL Hgb 7.5 L (13.0-17.5) gm/dL Hct 23.4 L (39.0-53.0) % Neutrophils # (1.3-7.7) k/uL Neutrophils # (Manual) 12.18 H (1.3-7.7) k/uL Lymphocytes # (1.0-4.8) k/uL Lymphocytes # (Manual) 0.70 L (1.0-4.8) k/uL Monocytes # (Manual) 1.12 H (0-1.0) k/uL Chloride 108 H (98-107) mmol/L Carbon Dioxide 19 L (22-30) mmol/L BUN 67 H (9-20) mg/dL Creatinine 2.81 H (0.66-1.25) mg/dL Glucose 134 H (74-99) mg/dL POC Glucose (mg/dL) 142 H (70-110) mg/dL Phosphorus 5.8 H (2.5-4.5) mg/dL Troponin I (0.000-0.034) ng/mL Total Protein 5.8 L (6.3-8.2) g/dL Albumin 3.0 L (3.5-5.0) g/dL TSH (0.465-4.680) mIU/L Urine Protein (Negative) 03/08/23 03/08/23 Range/Units 04:42 08:33 WBC (3.8-10.6) k/uL RBC (4.30-5.90) m/uL Hgb (13.0-17.5) gm/dL Hct (39.0-53.0) % Neutrophils # (1.3-7.7) k/uL Neutrophils # (Manual) (1.3-7.7) k/uL Lymphocytes # (1.0-4.8) k/uL Lymphocytes # (Manual) (1.0-4.8) k/uL Monocytes # (Manual) (0-1.0) k/uL Chloride (98-107) mmol/L Carbon Dioxide (22-30) mmol/L BUN (9-20) mg/dL Creatinine (0.66-1.25) mg/dL Glucose (74-99) mg/dL POC Glucose (mg/dL) 150 H (70-110) mg/dL Phosphorus (2.5-4.5) mg/dL Troponin I 0.139 H* (0.000-0.034) ng/mL Total Protein (6.3-8.2) g/dL Albumin (3.5-5.0) g/dL TSH (0.465-4.680) mIU/L Urine Protein (Negative) Assessment and Plan Assessment: bilateral airspace opacities suspicious for bilateral pneumonia, Versus pulmonary edema bilateral leg edema with stasis dermatitis multifactorial also due to heart failure normochromic, normocytic anemia chronic kidney disease stage III Diabetes mellitus Hypertension Hyperlipidemia History of osteoarthritis Hypothyroidism with very low TSH upper extremity tremor on mirapex restless leg syndrom Plan: continue with antibiotic ceftriaxone and Zithromax continue with IV Lasix Culture results Oxygen as needed Bronchodilator and pulmonary consult cardiology consult check Pro-calcitonin patient on levothyroxine at 175 g. In view of low TSH hold levothyroxine today and to start 150 g tomorrow and recheck thyroid function test in 1-2 months Labs and medication were reviewed.. Continue same treatment. Continue with symptomatic treatment. Resume home medication. Monitor lytes and vitals. DVT and GI prophylaxis. Further recommendations depends on the clinical course of the patient DVT prophylaxis: Subcutaneous heparin GI Prophylaxis: Pepcid Prognosis is guarded
[2023-03-08 09:26] LABS: ABG PCO2 32 mmHg (35-45); ABG PH 7.44 (7.35-7.45); ABG PO2 79 mmHg (83-108); Allen Test Performed? Yes
[2023-03-08 09:27] LABS: ABG HCO3 22 mmol/L (21-25); ABG TCO2 23 mmol/L (19-24)
--- NOTE | 2023-03-08 11:59 | P.CRDCN ---
History of Present Illness Consult date: 03/08/23 History of present illness: History of present illness: This is a 77 year old male patient of Dr. Wheeler with past medical history of mild to moderate triple-vessel coronary artery disease on cardiac catheterization, hypertension, hyperlipidemia, chronic kidney disease stage III, hypothyroidism, diabetes mellitus type 2, family history of premature coronary artery disease. We have been asked to evaluate the patient for elevated troponins. Patient states that he came in the hospital due to shortness of breath and he feels a little bit better today at the time of this evaluation. He denies having any chest pain. Patient also has reported cough. Patient is seen today in the emergency center waiting for a bed on the cardiac stepdown unit. He is currently on BiPAP. Patient had a recent hospitalization for falls and cellulitis of lower extremities was discharged to [facility] and on IV antibiotics. Patient was sent in from the [facility] for further evaluation of shortness of breath. EKG sinus rhythm with no acute ST changes. Chest x-ray: #1 multifocal airspace opacities concerning for pneumonia. #2 Similar multifocal airspace opacities WBC 14, hemoglobin 7.5, platelet count 197. Sodium 140, potassium 4.6, chloride 108, CO2 19, BUN 67 creatinine 2.81. Troponin 0.149, 0.155 and 0.139. Liver function tests are normal. Urinalysis on plus protein otherwise no infection. Covid 19 not detected. Home cardiac medications: Amlodipine 5 mg twice daily, aspirin 81 mg daily, Coreg 12.5 mg twice daily, finasteride 5 mg daily, hydralazine 100 mg twice daily, levothyroxine 175 g daily. Echocardiogram 01/2022 revealed normal left ventricular size and systolic function. Mild mitral and tricuspid regurgitation. Cardiac catheterization in June 2021 revealed 40% stenosis of the mid LAD, 30% of the proximal OM1, 40% of the proximal RCA, right dominant. Lexiscan stress test June 2021 revealed normal EF, anterior apical ischemia. Review Of Systems: At the time of my evaluation: Constitutional: No fever, no chills. No weakness, fatigue or lethargy. EENT: No headache. No dizziness. Lungs: + shortness of breath, cough, no sputum production. No wheezing. Cardiovascular: No chest pain, + chronic lower extremity edema. No palpitations. No paroxysmal nocturnal dyspnea. No orthopnea. No lightheadedness or dizziness. No syncopal episodes. Abdominal: No abdominal pain. No nausea, vomiting. No diarrhea. No constipation. No bloody or tarry stools. Genitourinary: No dysuria.. No urinary retention. Musculoskeletal: No myalgias. No muscle weakness, no frequent falls. No back pain. No neck pain. Integumentary: No wounds. No rash. No unusual bruising. Neurologic: No aphasia. No facial droop. No change in mentation. No head injury. No headache. Physical examination: Gen: This is a 77-year-old male. He is resting in the care structure with BiPAP, he is lying flat. VS: reviewed blood pressure 148/86, heart rate in the 70s and 80s, pulse ox 92%, afebrile HEENT: Head is atraumatic, normocephalic. Pupils equal, round. Sclerae is anicteric. NECK: Supple. No JVD. LUNGS: Clear to auscultation. No wheezes or rhonchi. No intercostal retractions. HEART: Regular rate and rhythm. No murmur. ABDOMEN: Soft No tenderness. EXTREMITIES: + bilateral pedal edema. No calf tenderness. NEUROLOGICAL: Patient is awake, alert and oriented x3. Assessment: Flat troponins, acute coronary syndrome ruled out, elevated troponin secondary to demand mismatch and poor clearance by kidneys Acute hypoxic respiratory failure on BiPAP Pneumonia Chronic heart failure with preserved ejection fraction Acute kidney injury Lower extremity cellulitis Triple-vessel coronary artery disease, nonobstructive Hypertension Hyperlipidemia Diabetes mellitus type 2 Chronic kidney disease stage III Hypothyroidism Plan: Resume patient's home cardiac medications Patient is not on a statin presently because he is on daptomycin Patient is on Lasix 40 mg IV every 12 hours Monitor I&O, daily weights and electrolytes and renal function Obtain 2-D echocardiogram and Doppler study to assess cardiac structure and function Further recommendations to follow based upon clinical course Thank you kindly for this consultation. Nurse practitioner note has been reviewed, I agree with documented findings and plan of care. Patient was seen and examined. Past Medical History Past Medical History: Cancer, Diabetes Mellitus, Hyperlipidemia, Hypertension, Osteoarthritis (OA), Prostate Disorder, Renal Disease, Thyroid Disorder Additional Past Medical History / Comment(s): Falls at home 02/13/23. skin cancer, neuropathy , restless legs History of Any Multi-Drug Resistant Organisms: None Reported Past Surgical History: Orthopedic Surgery Additional Past Surgical History / Comment(s): sinus sx. cancer removed lt ear. colonoscopy , 07-07-17 anterior cervical decompression/discectomy/fusion c3-4, c4-5 Past Anesthesia/Blood Transfusion Reactions: No Reported Reaction Past Psychological History: Anxiety, Depression Smoking Status: Former smoker Past Alcohol Use History: None Reported Past Drug Use History: None Reported - Past Family History Father Additional Family Medical History / Comment(s): aortic aneurysm Mother Family Medical History: Cancer Additional Family Medical History / Comment(s): pancreas cancer Medications and Allergies Home Medications Medication Instructions Recorded Confirmed Type Finasteride [Proscar] 5 mg PO DAILY@0800 05/17/17 03/08/23 History allopurinoL [Zyloprim] 300 mg PO HS 05/17/17 03/08/23 History Pramipexole [Mirapex] 1 mg PO Q8HR@0600,1400,2200 02/17/21 03/08/23 History Sertraline [Zoloft] 50 mg PO BID@0800,2100 02/17/21 03/08/23 History Aspirin 81 mg PO DAILY@1200 07/09/21 03/08/23 History Cholecalciferol [Vitamin D3 (25 25 mcg PO DAILY@1200 02/02/22 03/08/23 History Mcg = 1000 Iu)] amLODIPine [Norvasc] 5 mg PO BID@0800,1700 02/02/22 03/08/23 History hydrALAZINE HCL [Apresoline] 100 mg PO BID@0800,1700 02/02/22 03/08/23 History Famotidine [Pepcid] 20 mg PO DAILY@0600 02/13/23 03/08/23 History Ferrous Sulfate [Iron (65 MG 325 mg PO DAILY@1200 02/13/23 03/08/23 History Elemental)] Levothyroxine Sodium [Synthroid] 175 mcg PO DAILY@0600 02/13/23 03/08/23 History Tamsulosin HCl [Flomax] 0.4 mg PO HS 02/13/23 03/08/23 History carvediloL [Coreg] 12.5 mg PO BID@0800,1700 02/13/23 03/08/23 History DAPTOmycin [Cubicin] 350 mg IVPB Q48H 14 Days #7 each 02/22/23 03/08/23 Rx HYDROcodone/APAP 10-325MG [[place] 1 tab PO TID PRN #6 tab 02/22/23 03/08/23 Rx 10-325] Acetaminophen [Tylenol] 650 mg PO Q4H PRN 03/08/23 03/08/23 History Darbepoetin Amrit [Aranesp] 40 mcg SQ FR@1200 03/08/23 03/08/23 History Heparin Sodium,Porcine (1 ml) 5,000 unit SQ Q8HR@0600,1400,2200 03/08/23 03/08/23 History [Heparin Sodium] INSULIN ASPART (NovoLOG) [NovoLOG See Protocol SQ ACHS 03/08/23 03/08/23 History (formulary)] Ipratropium-Albuterol Nebulize 3 ml INHALATION RT-Q6H PRN 03/08/23 03/08/23 History [Duoneb 0.5 mg-3 mg/3 ml Soln] Magnesium Hydroxide [Milk of 7,200 mg PO Q2D PRN 03/08/23 03/08/23 History Magnesia Concentrate] Na Phos,M-B/Na Phos,Di-Ba [Fleet 133 ml RECTAL DAILY PRN 03/08/23 03/08/23 History Adult] Nystatin 100,000 Unit/gm Powd 1 applic TOPICAL BID 03/08/23 03/08/23 History [Mycostatin Powder] Pregabalin [Lyrica] 150 mg PO Q12HR@0800,2100 03/08/23 03/08/23 History SILVER sulfADIAZINE Cream 1 applic TOPICAL DAILY 03/08/23 03/08/23 History [Silvadene 1% Cream] Sennosides [Senokot] 8.6 mg PO DAILY@0800 03/08/23 03/08/23 History Sodium Bicarbonate Tab 650 mg PO BID@0800,1700 03/08/23 03/08/23 History bisacodyL [Dulcolax] 10 mg RECTAL DAILY PRN 03/08/23 03/08/23 History Allergies Allergy/AdvReac Type Severity Reaction Status Date / Time enalaprilat [From Vasotec] AdvReac felt weak, Verified 03/08/23 08:05 couldn't talk erythromycin base AdvReac Nausea & Verified 03/08/23 08:05 [From Erythrocin] Vomiting Physical Exam Vitals: Vital Signs Temp Pulse Resp BP Pulse Ox FiO2 03/08/23 08:48 76 18 134/57 97 03/08/23 08:46 74 03/08/23 08:35 76 60 03/08/23 03:52 60 03/08/23 01:43 64 25 H 131/62 93 L 03/08/23 00:35 77 03/08/23 00:27 70 50 03/07/23 23:04 68 03/07/23 22:47 66 03/07/23 22:06 60 03/07/23 20:36 98.1 F 66 22 139/59 90 L Intake and Output 03/07/23 03/08/23 03/08/23 22:59 06:59 14:59 Other: Weight 122.47 kg Results 03/08/23 04:42 03/08/23 01:15 Cardiac Enzymes 03/07/23 03/07/23 03/08/23 Range/Units 20:46 20:46 01:08 AST 25 (17-59) U/L Troponin I 0.149 H* 0.155 H* (0.000-0.034) ng/mL 03/08/23 03/08/23 Range/Units 01:15 04:42 AST 25 (17-59) U/L Troponin I 0.139 H* (0.000-0.034) ng/mL Coagulation 03/07/23 Range/Units 20:46 PT 10.3 (9.0-12.0) sec APTT 30.0 (22.0-30.0) sec CBC 03/07/23 03/08/23 Range/Units 20:46 04:42 WBC 15.1 H 14.0 H (3.8-10.6) k/uL RBC 2.60 L 2.40 L (4.30-5.90) m/uL Hgb 8.0 L 7.5 L (13.0-17.5) gm/dL Hct 25.1 L 23.4 L (39.0-53.0) % Plt Count 194 197 (150-450) k/uL Comprehensive Metabolic Panel 09/24/23 09/25/23 Range/Units 20:46 01:15 Sodium 138 140 (137-145) mmol/L Potassium 4.5 4.6 (3.5-5.1) mmol/L Chloride 105 108 H (98-107) mmol/L Carbon Dioxide 20 L 19 L (22-30) mmol/L BUN 66 H 67 H (9-20) mg/dL Creatinine 2.91 H 2.81 H (0.66-1.25) mg/dL Glucose 160 H 134 H (74-99) mg/dL Calcium 8.8 8.8 (8.4-10.2) mg/dL AST 25 25 (17-59) U/L ALT 17 16 (4-49) U/L Alkaline Phosphatase 95 75 (38-126) U/L Total Protein 6.3 5.8 L (6.3-8.2) g/dL Albumin 3.3 L 3.0 L (3.5-5.0) g/dL Current Medications Generic Name Dose Route Start Last Admin Trade Name Freq PRN Reason Stop Dose Admin Acetaminophen 650 mg 03/08/23 09:03 Acetaminophen Tab 325 Mg Tab PO Q4H PRN Fever and/ or Pain Hydrocodone Bitart/Acetaminophen 1 each 03/08/23 09:03 Hydrocodone/Apap 10-325mg 1 Each Tab PO TID PRN Pain Albuterol Sulfate 2.5 mg 03/08/23 08:00 03/08/23 08:33 Albuterol Nebulized 2.5 Mg/3 Ml INHALATION 2.5 mg RT-QID [facility] Administration Albuterol/Ipratropium 3 ml 03/08/23 09:03 Ipratropium-Albuterol 3 Ml Neb INHALATION RT-Q6H PRN Shortness Of Breath Allopurinol 300 mg 03/08/23 21:00 Allopurinol 300 Mg Tab PO HS [facility] Amlodipine Besylate 5 mg 03/08/23 17:00 Amlodipine 5 Mg Tab PO BID@0800,1700 [facility] Azithromycin 500 mg 03/08/23 13:00 Azithromycin 500 Mg Tab PO 03/09/23 09:01 DAILY [facility] Protocol Bisacodyl 10 mg 03/08/23 09:03 Bisacodyl 10 Mg Supp RECTAL DAILY PRN Constipation Carvedilol 12.5 mg 03/08/23 17:00 Carvedilol 12.5 Mg Tab PO BID@0800,1700 [facility] Dextrose/Water 25 ml 03/07/23 23:40 Dextrose 50% Syringe 50 Ml IVP PER PROTOCOL PRN Hypoglycemia Protocol Dextrose/Water 50 ml 03/07/23 23:40 Dextrose 50% Syringe 50 Ml IVP PER PROTOCOL PRN Hypoglycemia Protocol Famotidine 20 mg 03/09/23 06:00 Famotidine 20 Mg Tab PO DAILY@0600 [facility] Ferrous Sulfate 325 mg 03/08/23 12:00 Ferrous Sulfate 325 Mg Tab PO DAILY@1200 [facility] Finasteride 5 mg 03/09/23 08:00 Finasteride 5 Mg Tab PO DAILY@0800 [facility] Furosemide 40 mg 03/08/23 06:37 03/08/23 08:47 Furosemide 10 Mg/Ml 4 Ml Vial IV 40 mg Q12HR [facility] Administration Heparin Sodium (Porcine) 5,000 unit 03/08/23 14:00 Heparin Sodium,Porcine 5,000 Unit/Ml 1 Ml Vial SQ Q8HR@0600,1400,2200 [facility] Hydralazine HCl 100 mg 03/08/23 17:00 Hydralazine Hcl 50 Mg Tab PO BID@0800,1700 [facility] Hydromorphone HCl 1 mg 03/07/23 23:36 Hydromorphone 1 Mg/Ml 1 Ml Syringe IVP Q3HR PRN Severe Pain (Scale 7 to 10) Ceftriaxone Sodium 2 gm/ 50 mls @ 100 mls/hr 03/09/23 01:00 Sodium Chloride IVPB 03/12/23 01:29 Q24H [facility] Protocol Insulin Aspart 0 unit 03/07/23 23:45 03/08/23 08:39 Insulin Aspart (Novolog) 100 Unit/Ml Vial SQ Not Given Q4H [facility] Protocol Levothyroxine Sodium 150 mcg 03/09/23 06:00 Levothyroxine 75 Mcg Tab PO DAILY@0600 [facility] Miscellaneous Information 1 each 03/07/23 23:36 Pneumonia Protocol Utilized 1 Each Misc PO ONCE PRN Per Protocol Naloxone HCl 0.2 mg 03/07/23 23:36 Naloxone 0.4 Mg/Ml 1 Ml Vial IV Q2M PRN Opioid Reversal Ondansetron HCl 4 mg 03/07/23 23:36 Ondansetron 4 Mg/2 Ml Vial IVP Q8HR PRN Nausea And Vomiting Pramipexole Dihydrochloride 1 mg 03/08/23 14:00 Pramipexole 1 Mg Tab PO Q8HR@0600,1400,2200 [facility] Senna 8.6 mg 03/09/23 08:00 Sennosides 8.6 Mg Tab PO DAILY@0800 [facility] Sertraline HCl 50 mg 03/08/23 21:00 Sertraline 50 Mg Tab PO BID@0800,2100 [facility] Sodium Bicarbonate 650 mg 03/08/23 17:00 Sodium Bicarbonate Tab 650 Mg Tab PO BID@0800,1700 [facility] Sodium Biphosphate/Sodium Phosphate 133 ml 03/08/23 09:12 Na Phos,M-B/Na Phos,Di-Ba 133 Ml Enema RECTAL DAILY PRN Constipation Tamsulosin HCl 0.4 mg 03/08/23 21:00 Tamsulosin 0.4 Mg Cap.Er.24h PO [facility] Intake and Output 03/07/23 03/08/23 03/08/23 22:59 06:59 14:59 Other: Weight 122.47 kg 03/08/23 04:42 03/08/23 01:15
[2023-03-08 12:47] LABS: Glucose,Whole Blood 150 mg/dL (70-110)
[2023-03-08] MEDS: ACETAMINOPHEN TAB 325 MG TAB PO PRN ×2 (12:55→23:49)
[2023-03-08] MEDS: FERROUS SULFATE 325 MG TAB PO SCH (12:56)
[2023-03-08] MEDS: ASPIRIN 81 MG PO SCH (12:57)
[2023-03-08] MEDS: AZITHROMYCIN 500 MG TAB PO SCH (14:29)
[2023-03-08] MEDS: PRAMIPEXOLE 1 MG TAB PO SCH ×2 (14:30→20:50)
[2023-03-08] MEDS: HEPARIN SODIUM,PORCINE 5,000 UNIT/ML 1 ML VIAL SQ SCH ×2 (14:36→20:51)
[2023-03-08 16:38] LABS: Glucose,Whole Blood 148 mg/dL (70-110)
[2023-03-08] MEDS: amLODIPine 5 MG TAB PO SCH (17:44)
[2023-03-08] MEDS: SODIUM BICARBONATE TAB 650 MG TAB PO SCH (17:44)
[2023-03-08] MEDS: hydrALAZINE HCL 50 MG TAB PO SCH (17:44)
[2023-03-08] MEDS: carvediloL 12.5 MG TAB PO SCH (17:44)
[2023-03-08] MEDS: HYDROcodone/APAP 10-325MG 1 EACH TAB PO PRN (18:59)
[2023-03-08 20:11] LABS: Glucose,Whole Blood 150 mg/dL (70-110)
[2023-03-08] MEDS: SERTRALINE 50 MG TAB PO SCH (20:50)
[2023-03-08] MEDS: TAMSULOSIN 0.4 MG CAP.ER.24H PO SCH (20:50)
[2023-03-08] MEDS: allopurinoL 300 MG TAB PO SCH (20:50)
[2023-03-08 23:44] LABS: Glucose,Whole Blood 151 mg/dL (70-110)
[2023-03-09] MEDS ORDERED: METOPROLOL TARTRATE 25 MG TAB PO STA (01:29)
[2023-03-09] MEDS ORDERED: HEPARIN SODIUM 1,000 UN/ML (10ML VL) IV ONE (02:49)
[2023-03-09] MEDS ORDERED: HEPARIN SODIUM 1,000 UN/ML (10ML VL) IV PRN (02:49)
[2023-03-09] MEDS ORDERED: HEPARIN SOD,PORK IN 0.45% NACL 25,000 UNIT in 0.45% NACL 1 250ML.BAG IV SCH (03:00)
[2023-03-09] MEDS: HYDROmorphone 1 MG/ML 1 ML SYRINGE IVP PRN ×2 (03:12→20:38)
[2023-03-09 03:47] LABS: Basophils % (A) 0 %; Eosinophils # (A) 0.1 k/uL (0-0.7); Eosinophils % (A) 1 %; HCT 22.2 % (39.0-53.0); Hypochromasia Slight; Lymphocytes # (A) 0.6 k/uL (1.0-4.8); Lymphocytes % (A) 3 %; MCH 30.4 pg (25.0-35.0); MCHC 31.5 g/dL (31.0-37.0); MCV 96.6 fL (80.0-100.0); Mean Platelet Volume 11.1; Monocytes # (A) 0.8 k/uL (0-1.0); Monocytes % (A) 5 %; Neutrophils # (A) 15.6 k/uL (1.3-7.7); Neutrophils % (A) 91 %; Platelet Count 172 k/uL (150-450); RDW 14.7 % (11.5-15.5); WBC 17.2 k/uL (3.8-10.6)
[2023-03-09 03:57] LABS: INR 1.2 (<1.2); Partial Thromboplastin Time 94.3 sec (22.0-30.0); Prothrombin Time 11.9 sec (9.0-12.0)
[2023-03-09 04:05] LABS: Glucose,Whole Blood 145 mg/dL (70-110)
[2023-03-09] MEDS: INSULIN ASPART (NovoLOG) 100 UNIT/ML VIAL SQ SCH ×4 (04:05→18:16)
[2023-03-09] MEDS ORDERED: LEVOTHYROXINE 88 MCG TAB PO SCH (06:00)
[2023-03-09] MEDS: LEVOTHYROXINE 75 MCG TAB PO SCH (06:31)
[2023-03-09] MEDS: PRAMIPEXOLE 1 MG TAB PO SCH ×3 (06:31→20:42)
[2023-03-09] MEDS: FAMOTIDINE 20 MG TAB PO SCH (06:31)
[2023-03-09] MEDS: ALBUTEROL NEBULIZED 2.5 MG/3 ML INHALATION SCH ×4 (07:53→20:21)
[2023-03-09 08:01] LABS: Glucose,Whole Blood 152 mg/dL (70-110)
[2023-03-09] MEDS: amLODIPine 5 MG TAB PO SCH ×2 (08:49→16:40)
[2023-03-09] MEDS: carvediloL 12.5 MG TAB PO SCH ×2 (08:49→16:40)
[2023-03-09] MEDS: FINASTERIDE 5 MG TAB PO SCH (08:49)
[2023-03-09] MEDS: SENNOSIDES 8.6 MG TAB PO SCH (08:49)
[2023-03-09] MEDS: AZITHROMYCIN 500 MG TAB PO SCH (08:49)
[2023-03-09] MEDS: hydrALAZINE HCL 50 MG TAB PO SCH ×2 (08:49→16:40)
[2023-03-09] MEDS: SERTRALINE 50 MG TAB PO SCH ×2 (08:49→20:40)
[2023-03-09] MEDS: SODIUM BICARBONATE TAB 650 MG TAB PO SCH ×2 (08:49→16:48)
[2023-03-09] MEDS: FUROSEMIDE 10 MG/ML 4 ML VIAL IV SCH (08:53)
[2023-03-09 09:16] LABS: Basophils % (A) 0 %; Eosinophils # (A) 0.2 k/uL (0-0.7); Eosinophils % (A) 1 %; HCT 22.3 % (39.0-53.0); HGB 7.2 gm/dL (13.0-17.5); Hypochromasia Moderate; Lymphocytes # (A) 0.4 k/uL (1.0-4.8); Lymphocytes % (A) 2 %; MCH 31.6 pg (25.0-35.0); MCHC 32.4 g/dL (31.0-37.0); MCV 97.6 fL (80.0-100.0); Mean Platelet Volume 11.2; Monocytes # (A) 0.8 k/uL (0-1.0); Monocytes % (A) 4 %; Neutrophils # (A) 16.6 k/uL (1.3-7.7); Neutrophils % (A) 91 %; Platelet Count 164 k/uL (150-450); RBC 2.28 m/uL (4.30-5.90); Reticulocyte % 2.5 % (0.5-2.0); WBC 18.3 k/uL (3.8-10.6)
[2023-03-09 09:31] LABS: African American GFR (CKD) 25 (>60 ml/min/1.73 sqM); Anion Gap 10 mmol/L; Blood Urea Nitrogen 70 mg/dL (9-20); Calcium 8.4 mg/dL (8.4-10.2); Carbon Dioxide 21 mmol/L (22-30); Chloride 108 mmol/L (98-107); Glucose 139 mg/dL (74-99); Non-African American GFR(CKD) 22 (>60 ml/min/1.73 sqM); Potassium 4.3 mmol/L (3.5-5.1); Sodium 139 mmol/L (137-145)
[2023-03-09 11:58] LABS: Glucose,Whole Blood 161 mg/dL (70-110)
[2023-03-09] MEDS: ASPIRIN 81 MG PO SCH (12:19)
[2023-03-09] MEDS: ACETAMINOPHEN TAB 325 MG TAB PO PRN (12:19)
[2023-03-09] MEDS: FERROUS SULFATE 325 MG TAB PO SCH (12:19)
--- NOTE | 2023-03-09 13:02 | P.PN ---
Subjective this is a pleasant 77 years old male with past medical history of Diabetes Mellitus, Hyperlipidemia, Hypertension, Osteoarthritis, cervical spine de compression and fusion surgery. PCP is Dr. Blount patient was sent from our with for shortness of breathwith hypoxia and saturating 81. 82% on 4 L oxygen via nasal cannula. Right upper extremity PICC line patient last time he was discharged on daptomycin every 48 hours 14 days.patient finished treatment and his lower extremity cellulitis is improving patient currently on BiPAP, with oxygen saturation 97%. Afebrile. Labs showed leukocytosis of 14,000, hemoglobin 7.5 creatinine is elevated at 2.8 which is at baseline of 2.2-3.0 Troponin is elevated at 0.15, 0.13.proBNP 4460. TSH is low at 0.09 Urine analysis is not suspicious for infection. chest x-ray: confluent bilateral Multifocal airspace opacities patient is a started on ceftriaxone, Zithromax IV Lasix 03/09/2023 Patient is kind of BiPAP dependent. He is fully awake and oriented. He is still on FiO2 of 80%. Also his coughing and sometimes with phlegm but no chest pain. His blood eating well because of his BiPAP. His sugar is monitored closely. No much like edema and he has coarse precipitation on both sides of the lung Patient favors coming down 100.2. Patient tachypneic 40 Breaths Per Minute Compared to 33 Yesterday. Leukocytosis around the Same 18.3, Creatinine Is Slightly Lower at 2.7, Hemoglobin Is Stable 7.2. Patient Remains on Ceftriaxone, Zithromax, IV Lasix Lower 40 Mg Once Daily. Heparin Drip Was Discontinued by Cardiology Team and Place Him on Subcutaneous Heparin. Priorcalcitonin is mildly elevated at 0.53 Review of systems CONSTITUTIONAL: No fever, no malaise, no fatigue. HEENT: No recent visual problems or hearing problems. Denied any sore throat. GASTROINTESTINAL: No diarrhea, no nausea, no vomiting, no abdominal pain. Normoactive bowel sounds. NEUROLOGICAL: No headaches, no weakness, no numbness. HEMATOLOGICAL: Denies any bleeding or petechiae. GENITOURINARY: Denies any burning micturition, frequency, or urgency. MUSCULOSKELETAL/RHEUMATOLOGICAL: Denies any joint pain, swelling, or any muscle pain. ENDOCRINE: Denies any polyuria or polydipsia. Active Medications Generic Name Dose Route Start Last Admin Trade Name [place] PRN Reason Stop Dose Admin Acetaminophen 650 mg 03/08/23 09:03 03/09/23 12:19 Acetaminophen Tab 325 Mg Tab PO 650 mg Q4H PRN Administration Fever and/ or Pain Hydrocodone Bitart/Acetaminophen 1 each 03/08/23 09:03 03/08/23 18:59 Hydrocodone/Apap 10-325mg 1 Each Tab PO 1 each TID PRN Administration Pain Albuterol Sulfate 2.5 mg 03/08/23 08:00 03/09/23 11:03 Albuterol Nebulized 2.5 Mg/3 Ml INHALATION 2.5 mg RT-QID [facility] Administration Albuterol/Ipratropium 3 ml 03/08/23 09:03 Ipratropium-Albuterol 3 Ml Neb INHALATION RT-Q6H PRN Shortness Of Breath Allopurinol 300 mg 03/08/23 21:00 03/08/23 20:50 Allopurinol 300 Mg Tab PO 300 mg HS [facility] Administration Amlodipine Besylate 5 mg 03/08/23 17:00 03/09/23 08:49 Amlodipine 5 Mg Tab PO 5 mg BID@0800,1700 [facility] Administration Aspirin 81 mg 03/08/23 12:00 03/09/23 12:19 Aspirin 81 Mg PO 81 mg DAILY@1200 [facility] Administration Azithromycin 500 mg 03/08/23 13:00 03/09/23 08:49 Azithromycin 500 Mg Tab PO 03/11/23 09:01 500 mg DAILY [facility] Administration Protocol Bisacodyl 10 mg 03/08/23 09:03 Bisacodyl 10 Mg Supp RECTAL DAILY PRN Constipation Carvedilol 12.5 mg 03/08/23 17:00 03/09/23 08:49 Carvedilol 12.5 Mg Tab PO 12.5 mg BID@0800,1700 [facility] Administration Dextrose/Water 25 ml 03/07/23 23:40 Dextrose 50% Syringe 50 Ml IVP PER PROTOCOL PRN Hypoglycemia Protocol Dextrose/Water 50 ml 03/07/23 23:40 Dextrose 50% Syringe 50 Ml IVP PER PROTOCOL PRN Hypoglycemia Protocol Famotidine 20 mg 03/09/23 06:00 03/09/23 06:31 Famotidine 20 Mg Tab PO 20 mg DAILY@0600 [facility] Administration Ferrous Sulfate 325 mg 03/08/23 12:00 03/09/23 12:19 Ferrous Sulfate 325 Mg Tab PO 325 mg DAILY@1200 [facility] Administration Finasteride 5 mg 03/09/23 08:00 03/09/23 08:49 Finasteride 5 Mg Tab PO 5 mg DAILY@0800 [facility] Administration Furosemide 40 mg 03/10/23 09:00 Furosemide 10 Mg/Ml 4 Ml Vial IV DAILY [facility] Heparin Sodium (Porcine) 5,000 unit 03/09/23 21:00 Heparin Sodium,Porcine 5,000 Unit/Ml 1 Ml Vial SQ Q12HR [facility] Hydralazine HCl 100 mg 03/08/23 17:00 03/09/23 08:49 Hydralazine Hcl 50 Mg Tab PO 100 mg BID@0800,1700 [facility] Administration Hydromorphone HCl 1 mg 03/07/23 23:36 03/09/23 03:12 Hydromorphone 1 Mg/Ml 1 Ml Syringe IVP 1 mg Q3HR PRN Administration Severe Pain (Scale 7 to 10) Ceftriaxone Sodium 2 gm/ 50 mls @ 100 mls/hr 03/09/23 01:00 03/08/23 23:50 Sodium Chloride IVPB 03/12/23 01:29 100 mls/hr Q24H [facility] Administration Protocol Insulin Aspart 0 unit 03/09/23 12:00 03/09/23 12:20 Insulin Aspart (Novolog) 100 Unit/Ml Vial SQ 1 unit Q6HR [facility] Administration Protocol Levothyroxine Sodium 150 mcg 03/09/23 06:00 03/09/23 06:31 Levothyroxine 75 Mcg Tab PO 150 mcg DAILY@0600 [facility] Administration Miscellaneous Information 1 each 03/07/23 23:36 Pneumonia Protocol Utilized 1 Each Misc PO ONCE PRN Per Protocol Naloxone HCl 0.2 mg 03/07/23 23:36 Naloxone 0.4 Mg/Ml 1 Ml Vial IV Q2M PRN Opioid Reversal Ondansetron HCl 4 mg 03/07/23 23:36 Ondansetron 4 Mg/2 Ml Vial IVP Q8HR PRN Nausea And Vomiting Pramipexole Dihydrochloride 1 mg 03/08/23 14:00 03/09/23 06:31 Pramipexole 1 Mg Tab PO 1 mg Q8HR@0600,1400,2200 [facility] Administration Senna 8.6 mg 03/09/23 08:00 03/09/23 08:49 Sennosides 8.6 Mg Tab PO 8.6 mg DAILY@0800 [facility] Administration Sertraline HCl 50 mg 03/08/23 21:00 03/09/23 08:49 Sertraline 50 Mg Tab PO 50 mg BID@0800,2100 [facility] Administration Sodium Bicarbonate 650 mg 03/08/23 17:00 03/09/23 08:49 Sodium Bicarbonate Tab 650 Mg Tab PO 650 mg BID@0800,1700 [facility] Administration Sodium Biphosphate/Sodium Phosphate 133 ml 03/08/23 09:12 Na Phos,M-B/Na Phos,Di-Ba 133 Ml Enema RECTAL DAILY PRN Constipation Tamsulosin HCl 0.4 mg 03/08/23 21:00 03/08/23 20:50 Tamsulosin 0.4 Mg Cap.Er.24h PO 0.4 mg HS [facility] Administration Protocol stone and elevated 0.53 Objective - Vital Signs Vital signs: Vital Signs Temp 99.5 F 03/09/23 08:00 Pulse 88 03/09/23 08:03 Resp 30 H 03/09/23 08:00 BP 134/63 03/09/23 08:00 Pulse Ox 91 L 03/09/23 04:00 FiO2 80 03/09/23 07:55 Intake & Output 03/08/23 03/09/23 03/09/23 18:59 06:59 18:59 Intake Total 9.373 Output Total 750 1050 700 Balance -750 -1040.627 -700 Weight 117 kg Intake: Intake, IV Titration 9.373 Amount Heparin Sod,Pork in 0.45% 9.373 NaCl 25,000 unit In 0.45 % NaCl 1 250ml.bag @ 8.2 UNITS/KG/HR 10.043 mls/hr IV .Q24H [facility] Rx#: [id number] Output: Urine 750 1050 700 Other: Voiding Method External Catheter - Exam -GENERAL: The patient is alert and oriented x3, in mild respiratory distress, on BiPAP machine HEENT: Pupils are round and equally reacting to light. EOMI. No scleral icterus. No conjunctival pallor. Normocephalic, atraumatic. No pharyngeal erythema. No thyromegaly. CARDIOVASCULAR: S1 and S2 present. No murmurs, rubs, or gallops. -PULMONARY: Chest is clear to auscultation, no wheezing , decreased air entry in both sides with scattered crackles ABDOMEN: Soft, nontender, nondistended, normoactive bowel sounds. No palpable organomegaly. MUSCULOSKELETAL: No joint swelling or deformity. EXTREMITIES: No cyanosis, clubbing, or pedal edema. NEUROLOGICAL: Gross neurological examination did not reveal any focal deficits. SKIN: No rashes. no petechiae. - Labs CBC & Chem 7: 03/09/23 08:48 03/09/23 08:48 Labs: Abnormal Lab Results - Last 24 Hours (Table) 03/08/23 03/08/23 03/08/23 Range/Units 01:15 12:36 16:33 WBC (3.8-10.6) k/uL RBC (4.30-5.90) m/uL Hgb (13.0-17.5) gm/dL Hct (39.0-53.0) % Neutrophils # (1.3-7.7) k/uL Lymphocytes # (1.0-4.8) k/uL Retic Count (0.5-2.0) % INR (<1.2) APTT (22.0-30.0) sec Chloride (98-107) mmol/L Carbon Dioxide (22-30) mmol/L BUN (9-20) mg/dL Creatinine (0.66-1.25) mg/dL Glucose (74-99) mg/dL POC Glucose (mg/dL) 150 H 148 H (70-110) mg/dL Procalcitonin 0.54 H (0.02-0.09) ng/mL 03/08/23 03/08/23 03/09/23 Range/Units 20:07 23:40 03:22 WBC 17.2 H (3.8-10.6) k/uL RBC 2.30 L (4.30-5.90) m/uL Hgb 7.0 L (13.0-17.5) gm/dL Hct 22.2 L (39.0-53.0) % Neutrophils # 15.6 H (1.3-7.7) k/uL Lymphocytes # 0.6 L (1.0-4.8) k/uL Retic Count (0.5-2.0) % INR (<1.2) APTT (22.0-30.0) sec Chloride (98-107) mmol/L Carbon Dioxide (22-30) mmol/L BUN (9-20) mg/dL Creatinine (0.66-1.25) mg/dL Glucose (74-99) mg/dL POC Glucose (mg/dL) 150 H 151 H (70-110) mg/dL Procalcitonin (0.02-0.09) ng/mL 03/09/23 03/09/23 03/09/23 Range/Units 03:22 04:03 08:00 WBC (3.8-10.6) k/uL RBC (4.30-5.90) m/uL Hgb (13.0-17.5) gm/dL Hct (39.0-53.0) % Neutrophils # (1.3-7.7) k/uL Lymphocytes # (1.0-4.8) k/uL Retic Count (0.5-2.0) % INR 1.2 H (<1.2) APTT 94.3 H (22.0-30.0) sec Chloride (98-107) mmol/L Carbon Dioxide (22-30) mmol/L BUN (9-20) mg/dL Creatinine (0.66-1.25) mg/dL Glucose (74-99) mg/dL POC Glucose (mg/dL) 145 H 152 H (70-110) mg/dL Procalcitonin (0.02-0.09) ng/mL 03/09/23 03/09/23 03/09/23 Range/Units 08:48 08:48 08:48 WBC 18.3 H (3.8-10.6) k/uL RBC 2.28 L (4.30-5.90) m/uL Hgb 7.2 L (13.0-17.5) gm/dL Hct 22.3 L (39.0-53.0) % Neutrophils # 16.6 H (1.3-7.7) k/uL Lymphocytes # 0.4 L (1.0-4.8) k/uL Retic Count 2.5 H (0.5-2.0) % INR (<1.2) APTT 35.5 H (22.0-30.0) sec Chloride 108 H (98-107) mmol/L Carbon Dioxide 21 L (22-30) mmol/L BUN 70 H (9-20) mg/dL Creatinine 2.76 H (0.66-1.25) mg/dL Glucose 139 H (74-99) mg/dL POC Glucose (mg/dL) (70-110) mg/dL Procalcitonin (0.02-0.09) ng/mL Assessment and Plan Assessment: bilateral airspace opacities suspicious for bilateral pneumonia, Versus pulmonary edema bilateral leg edema with stasis dermatitis multifactorial also due to heart fa ilure normochromic, normocytic anemia chronic kidney disease stage III Diabetes mellitus Hypertension Hyperlipidemia History of osteoarthritis Hypothyroidism with very low TSH upper extremity tremor on mirapex restless leg syndrom Plan: continue with antibiotic ceftriaxone and Zithromax continue with IV Lasix Follow-up Culture results Bronchodilator and pulmonary consult cardiology consult check Pro-calcitonin patient on levothyroxine at 175 g. In view of low TSH hold levothyroxine today and to start 150 g tomorrow and recheck thyroid function test in 1-2 months Labs and medication were reviewed.. Continue same treatment. Continue with symptomatic treatment. Resume home medication. Monitor lytes and vitals. DVT and GI prophylaxis. Further recommendations depends on the clinical course of the patient DVT prophylaxis: Subcutaneous heparin GI Prophylaxis: Pepcid Prognosis is guarded
--- NOTE | 2023-03-09 14:22 | P.PN ---
Subjective Progress Note Date: 03/09/23 Principal diagnosis: Hypoxemic respiratory failure. I am seeing this patient in new consultation today 03/08/2023 in the emergency room after he presented late last night from his rehab facility with complaints of shortness of breath and nonproductive cough. Patient is a 77-year-old white male with past medical history significant for hypertension, hyperlipidemia, diabetes mellitus type 2, chronic kidney disease, obesity, hypothyroidism, and prior back surgeries. Denies any history of pulmonary disease including COPD or asthma. Ex-smoker of over 30 years ago. Patient did have a recent hospital admission from February 13 through February 22 for falls and lower ext remity cellulitis. He was discharged to [facility], and was receiving IV Daptomycin through a right upper extremity PICC. Patient did return to the emergency room late last night via EMS for complaints of progressively worsening shortness of breath and nonproductive cough that started since his recent hospital discharge. He denies any fevers, chills, myalgias, chest pain. He does admit lower extremity swelling. His lower extremities are erythemic, but states that they're improved since initiating his IV antibiotics. Patient is currently sitting up in bed, on BiPAP with settings 12/6 and FiO2 of 60%. He appears fairly comfortable, and not in any acute respiratory distress. Respiratory rate is in the mid 20s and he is achieving tidal volumes around 600- 700. Chest x-ray on admission shows multifocal airspace opacities concerning for pneumonia. Patient has been started on empiric antibiotics. Currently afebrile. CBC shows leukocytosis with a WBC count of 15.1, hemoglobin 8, h ematocrit 25.1, platelets 194. BMP from admission shows a sodium 138, potassium 4.5, chloride 105, serum bicarb 20, BUN 66, creatinine 2.91, glucose 160. Lactic acid level was 1.1. Troponins are 0.149 and 0.155 respectively. NT proBNP 4460. Patient was given a one-time dose of Lasix 80 mg in the ER. He appears hemodynamically stable at this time. Patient will be monitored on the cardiac stepdown unit. Progress note dated 03/09/2023. 77-year-old male, who was seen in the emergency department yesterday. The patient was admitted with a diagnosis of hypoxemic respiratory failure. The adam gabriel has a history of hypertension, hyperlipidemia, type 2 diabetes, chronic kidney disease, obesity, and hypothyroidism. The patient N-terminal proBNP was 4460. The patient was placed on BiPAP, and continues on BiPAP. The settings include 12/6, and 80%. He's not receiving any IV fluids the patient will have a follow-up chest x-ray in the morning. The patient's BMP was elevated as was his pro-calcitonin level. The patient remains on Zithromax and Rocephin. White count is 18.3, hemoglobin 7.2, hematocrit 22.3, with a normal platelet count. Sodium 139, potassium 4.3, chlorides 108, CO2 21, BUN 70, and creatinine 2.76. Objective - Vital Signs Vital signs: Vital Signs Temp 100.2 F H 03/09/23 12:00 Pulse 74 03/09/23 12:00 Resp 40 H 03/09/23 12:00 BP 151/58 03/09/23 12:00 Pulse Ox 91 L 03/09/23 04:00 FiO2 70 03/09/23 11:04 Intake & Output 03/08/23 03/09/23 03/09/23 18:59 06:59 18:59 Intake Total 9.373 360 Output Total 750 1050 700 Balance -750 -1040.627 -340 Weight 117 kg Intake: Intake, IV Titration 9.373 Amount Heparin Sod,Pork in 0.45% 9.373 NaCl 25,000 unit In 0.45 % NaCl 1 250ml.bag @ 8.2 UNITS/KG/HR 10.043 mls/hr IV .Q24H [facility] Rx#: [id number] Oral 360 Output: Urine 750 1050 700 Other: Voiding Method External Catheter - Exam Oriented 3. BiPAP mask in place. Mild to moderate respiratory difficulty. HEENT examination is grossly unremarkable. Neck supple. Full range of motion. No adenopathy thyromegaly or neck vein distention. Cardiovascular examination reveals regular rhythm rate. S1-S2 normal. No S3 or S4. No discernible murmur noted. Heart rate 74 bpm. Heart sounds are distant. Lungs reveal scattered rhonchi and crackles. Breath sounds equal. Saturations are 96%. Breath sounds are equal bilaterally. No distinct wheezes noted. Abdomen soft bowel sounds are heard. No masses or tenderness. Extremities are intact. No cyanosis clubbing or edema. Skin is without rash or lesion. Neurologic examination is brief but nonfocal. - Labs CBC & Chem 7: 03/09/23 08:48 03/09/23 08:48 Labs: Abnormal Lab Results - Last 24 Hours (Table) 03/08/23 03/08/23 03/08/23 Range/Units 16:33 20:07 23:40 WBC (3.8-10.6) k/uL RBC (4.30-5.90) m/uL Hgb (13.0-17.5) gm/dL Hct (39.0-53.0) % Neutrophils # (1.3-7.7) k/uL Lymphocytes # (1.0-4.8) k/uL Retic Count (0.5-2.0) % INR (<1.2) APTT (22.0-30.0) sec Chloride (98-107) mmol/L Carbon Dioxide (22-30) mmol/L BUN (9-20) mg/dL Creatinine (0.66-1.25) mg/dL Glucose (74-99) mg/dL POC Glucose (mg/dL) 148 H 150 H 151 H (70-110) mg/dL 03/09/23 03/09/23 03/09/23 Range/Units 03:22 03:22 04:03 WBC 17.2 H (3.8-10.6) k/uL RBC 2.30 L (4.30-5.90) m/uL Hgb 7.0 L (13.0-17.5) gm/dL Hct 22.2 L (39.0-53.0) % Neutrophils # 15.6 H (1.3-7.7) k/uL Lymphocytes # 0.6 L (1.0-4.8) k/uL Retic Count (0.5-2.0) % INR 1.2 H (<1.2) APTT 94.3 H (22.0-30.0) sec Chloride (98-107) mmol/L Carbon Dioxide (22-30) mmol/L BUN (9-20) mg/dL Creatinine (0.66-1.25) mg/dL Glucose (74-99) mg/dL POC Glucose (mg/dL) 145 H (70-110) mg/dL 03/09/23 03/09/23 03/09/23 Range/Units 08:00 08:48 08:48 WBC 18.3 H (3.8-10.6) k/uL RBC 2.28 L (4.30-5.90) m/uL Hgb 7.2 L (13.0-17.5) gm/dL Hct 22.3 L (39.0-53.0) % Neutrophils # 16.6 H (1.3-7.7) k/uL Lymphocytes # 0.4 L (1.0-4.8) k/uL Retic Count 2.5 H (0.5-2.0) % INR (<1.2) APTT (22.0-30.0) sec Chloride 108 H (98-107) mmol/L Carbon Dioxide 21 L (22-30) mmol/L BUN 70 H (9-20) mg/dL Creatinine 2.76 H (0.66-1.25) mg/dL Glucose 139 H (74-99) mg/dL POC Glucose (mg/dL) 152 H (70-110) mg/dL 03/09/23 03/09/23 Range/Units 08:48 11:57 WBC (3.8-10.6) k/uL RBC (4.30-5.90) m/uL Hgb (13.0-17.5) gm/dL Hct (39.0-53.0) % Neutrophils # (1.3-7.7) k/uL Lymphocytes # (1.0-4.8) k/uL Retic Count (0.5-2.0) % INR (<1.2) APTT 35.5 H (22.0-30.0) sec Chloride (98-107) mmol/L Carbon Dioxide (22-30) mmol/L BUN (9-20) mg/dL Creatinine (0.66-1.25) mg/dL Glucose (74-99) mg/dL POC Glucose (mg/dL) 161 H (70-110) mg/dL Assessment and Plan Assessment: Acute hypoxemic respiratory failure, secondary to possible healthcare associated pneumonia. Rule out acute pulmonary edema. Bilateral lower extremity edema, and cellulitis. Elevated troponins, rule out non-ST segment elevation myocardial infarction. Anemia of chronic disease. Stage III chronic kidney disease. Type 2 diabetes mellitus. Benign essential hypertension. Dyslipidemia. Hypothyroidism. Benign prostatic hypertrophy. Obesity. Plan: Plan dated 03/09/2023. Currently, the patient's on BiPAP, with settings of 12/6, and 80%. Remains on Zithromax and Rocephin for possible pneumonia. Both the patient's BNP, and pro- calcitonin level were elevated. The patient is not receiving any IV fluids. Chest x-rays were ordered for the morning. Labs, x-rays, and medications are all reviewed. Prognosis is guarded. We will continue to follow the patient, and make recommendations along the way. Time with Patient: Less than 30
--- NOTE | 2023-03-09 15:10 | P.PN ---
Subjective Progress Note Date: 03/09/23 History of present illness: This is a 77 year old male patient of Dr. Wheeler with past medical history of mild to moderate triple-vessel coronary artery disease on cardiac catheterization, hypertension, hyperlipidemia, chronic kidney disease stage III, hypothyroidism, diabetes mellitus type 2, family history of premature coronary artery disease. We have been asked to evaluate the patient for elevated t roponins. Patient states that he came in the hospital due to shortness of breath and he feels a little bit better today at the time of this evaluation. He denies having any chest pain. Patient also has reported cough. Patient is seen today in the emergency center waiting for a bed on the cardiac stepdown unit. He is currently on BiPAP. Patient had a recent hospitalization for falls and cellulitis of lower extremities was discharged to [facility] and on IV antibiotics. Patient was sent in from the care home for further evaluation of shortness of breath. EKG sinus rhythm with no acute ST changes. Chest x-ray: #1 multifocal airspace opacities concerning for pneumonia. #2 Similar multifocal airspace opacities WBC 14, hemoglobin 7.5, platelet count 197. Sodium 140, potassium 4.6, chloride 108, CO2 19, BUN 67 creatinine 2.81. Troponin 0.149, 0.155 and 0.139. Liver function tests are normal. Urinalysis on plus protein otherwise no infection. Covid 19 not detected. Home cardiac medications: Amlodipine 5 mg twice daily, aspirin 81 mg daily, Coreg 12.5 mg twice daily, finasteride 5 mg daily, hydralazine 100 mg twice daily, levothyroxine 175 g daily. Echocardiogram 01/2022 revealed normal left ventricular size and systolic function. Mild mitral and tricuspid regurgitation. Cardiac catheterization in June 2021 revealed 40% stenosis of the mid LAD, 30% of the proximal OM1, 40% of the proximal RCA, right dominant. Lexiscan stress test June 2021 revealed normal EF, anterior apical ischemia. 03/09 Patient is seen today on the cardiac stepdown unit. He has been on IV Lasix 40 mg every 12 hours. Negative fluid balance of 0. Heparin has been discontinued. Levothyroxine has been decreased to 150 g by attending. Repeat blood work reveals WBC 18.3, hemoglobin 7.2. INR 1.2. BUN 70 creatinine 2.76. TSH 0.09. Physical examination: Gen: This is a 77-year-old male. He is resting in the care structure with BiPAP, he is lying flat. VS: reviewed blood pressure 148/86, heart rate in the 70s and 80s, pulse ox 92%, afebrile HEENT: Head is atraumatic, normocephalic. Pupils equal, round. Sclerae is anicteric. NECK: Supple. No JVD. LUNGS: Clear to auscultation. No wheezes or rhonchi. No intercostal retractions. HEART: Regular rate and rhythm. No murmur. ABDOMEN: Soft No tenderness. EXTREMITIES: + bilateral pedal edema. No calf tenderness. NEUROLOGICAL: Patient is awake, alert and oriented x3. Assessment: Flat troponins, acute coronary syndrome ruled out, elevated troponin secondary to demand mismatch and poor clearance by kidneys Acute hypoxic respiratory failure requiring BiPAP Pneumonia Chronic heart failure with preserved ejection fraction Acute kidney injury Lower extremity cellulitis Triple-vessel coronary artery disease, nonobstructive Hypertension Hyperlipidemia Diabetes mellitus type 2 Chronic kidney disease stage III Hypothyroidism Lower lower extremity wound/cellulitis Plan: Start patient on statin Decrease frequency of IV Lasix 40 mg to daily Monitor I&O, daily weights and electrolytes and renal function Continue current cardiac medications Further recommendations to follow based upon clinical course Nurse practitioner note has been reviewed, I agree with documented findings and plan of care. Patient was seen and examined. Objective - Vital Signs Vital signs: Vital Signs Temp 99.5 F 03/09/23 08:00 Pulse 88 03/09/23 08:03 Resp 30 H 03/09/23 08:00 BP 134/63 03/09/23 08:00 Pulse Ox 91 L 03/09/23 04:00 FiO2 80 03/09/23 07:55 Intake & Output 03/08/23 03/09/23 03/09/23 18:59 06:59 18:59 Intake Total 9.373 Output Total 750 1050 700 Balance -750 -1040.627 -700 Weight 117 kg Intake: Intake, IV Titration 9.373 Amount Heparin Sod,Pork in 0.45% 9.373 NaCl 25,000 unit In 0.45 % NaCl 1 250ml.bag @ 8.2 UNITS/KG/HR 10.043 mls/hr IV .Q24H [facility] Rx#: [id number] Output: Urine 750 1050 700 Other: Voiding Method External Catheter - Labs CBC & Chem 7: 03/09/23 08:48 03/09/23 08:48 Labs: Abnormal Lab Results - Last 24 Hours (Table) 03/08/23 03/08/23 03/08/23 Range/Units 01:15 12:36 16:33 WBC (3.8-10.6) k/uL RBC (4.30-5.90) m/uL Hgb (13.0-17.5) gm/dL Hct (39.0-53.0) % Neutrophils # (1.3-7.7) k/uL Lymphocytes # (1.0-4.8) k/uL Retic Count (0.5-2.0) % INR (<1.2) APTT (22.0-30.0) sec Chloride (98-107) mmol/L Carbon Dioxide (22-30) mmol/L BUN (9-20) mg/dL Creatinine (0.66-1.25) mg/dL Glucose (74-99) mg/dL POC Glucose (mg/dL) 150 H 148 H (70-110) mg/dL Procalcitonin 0.54 H (0.02-0.09) ng/mL 03/08/23 03/08/23 03/09/23 Range/Units 20:07 23:40 03:22 WBC 17.2 H (3.8-10.6) k/uL RBC 2.30 L (4.30-5.90) m/uL Hgb 7.0 L (13.0-17.5) gm/dL Hct 22.2 L (39.0-53.0) % Neutrophils # 15.6 H (1.3-7.7) k/uL Lymphocytes # 0.6 L (1.0-4.8) k/uL Retic Count (0.5-2.0) % INR (<1.2) APTT (22.0-30.0) sec Chloride (98-107) mmol/L Carbon Dioxide (22-30) mmol/L BUN (9-20) mg/dL Creatinine (0.66-1.25) mg/dL Glucose (74-99) mg/dL POC Glucose (mg/dL) 150 H 151 H (70-110) mg/dL Procalcitonin (0.02-0.09) ng/mL 03/09/23 03/09/23 03/09/23 Range/Units 03:22 04:03 08:00 WBC (3.8-10.6) k/uL RBC (4.30-5.90) m/uL Hgb (13.0-17.5) gm/dL Hct (39.0-53.0) % Neutrophils # (1.3-7.7) k/uL Lymphocytes # (1.0-4.8) k/uL Retic Count (0.5-2.0) % INR 1.2 H (<1.2) APTT 94.3 H (22.0-30.0) sec Chloride (98-107) mmol/L Carbon Dioxide (22-30) mmol/L BUN (9-20) mg/dL Creatinine (0.66-1.25) mg/dL Glucose (74-99) mg/dL POC Glucose (mg/dL) 145 H 152 H (70-110) mg/dL Procalcitonin (0.02-0.09) ng/mL 03/09/23 03/09/23 03/09/23 Range/Units 08:48 08:48 08:48 WBC 18.3 H (3.8-10.6) k/uL RBC 2.28 L (4.30-5.90) m/uL Hgb 7.2 L (13.0-17.5) gm/dL Hct 22.3 L (39.0-53.0) % Neutrophils # 16.6 H (1.3-7.7) k/uL Lymphocytes # 0.4 L (1.0-4.8) k/uL Retic Count 2.5 H (0.5-2.0) % INR (<1.2) APTT 35.5 H (22.0-30.0) sec Chloride 108 H (98-107) mmol/L Carbon Dioxide 21 L (22-30) mmol/L BUN 70 H (9-20) mg/dL Creatinine 2.76 H (0.66-1.25) mg/dL Glucose 139 H (74-99) mg/dL POC Glucose (mg/dL) (70-110) mg/dL Procalcitonin (0.02-0.09) ng/mL
[2023-03-09] MEDS: HYDROcodone/APAP 10-325MG 1 EACH TAB PO PRN (16:40)
[2023-03-09 18:02] LABS: Glucose,Whole Blood 158 mg/dL (70-110)
[2023-03-09] MEDS: HEPARIN SODIUM,PORCINE 5,000 UNIT/ML 1 ML VIAL SQ SCH (20:40)
[2023-03-09] MEDS: TAMSULOSIN 0.4 MG CAP.ER.24H PO SCH (20:40)
[2023-03-09] MEDS: allopurinoL 300 MG TAB PO SCH (20:41)
[2023-03-09 21:23] LABS: % Iron Saturation 4.84 (15.00-50.00); Iron 9 UG/DL (65-175); Total Iron Binding Capacity 186 UG/DL (228-460)
[2023-03-10 00:01] LABS: Glucose,Whole Blood 145 mg/dL (70-110)
[2023-03-10] MEDS: HYDROmorphone 1 MG/ML 1 ML SYRINGE IVP PRN ×2 (03:01→21:54)
[2023-03-10] MEDS: INSULIN ASPART (NovoLOG) 100 UNIT/ML VIAL SQ SCH ×4 (05:58→18:03)
[2023-03-10 05:59] LABS: Glucose,Whole Blood 150 mg/dL (70-110)
[2023-03-10] MEDS: FAMOTIDINE 20 MG TAB PO SCH (06:01)
[2023-03-10] MEDS: LEVOTHYROXINE 75 MCG TAB PO SCH (06:01)
[2023-03-10] MEDS: PRAMIPEXOLE 1 MG TAB PO SCH (06:02)
[2023-03-10] MEDS: ALBUTEROL NEBULIZED 2.5 MG/3 ML INHALATION SCH ×4 (08:41→20:56)
[2023-03-10] MEDS ORDERED: FUROSEMIDE 10 MG/ML 4 ML VIAL IV SCH (09:00)
[2023-03-10] MEDS: FINASTERIDE 5 MG TAB PO SCH (09:44)
[2023-03-10] MEDS: hydrALAZINE HCL 50 MG TAB PO SCH ×2 (09:44→19:46)
[2023-03-10] MEDS: SENNOSIDES 8.6 MG TAB PO SCH (09:44)
[2023-03-10] MEDS: ATORVASTATIN 40 MG TAB PO SCH (09:45)
[2023-03-10] MEDS: FERROUS SULFATE 325 MG TAB PO SCH (09:45)
[2023-03-10] MEDS: ASPIRIN 81 MG PO SCH (09:45)
[2023-03-10] MEDS: SODIUM BICARBONATE TAB 650 MG TAB PO SCH (09:45)
[2023-03-10] MEDS: amLODIPine 5 MG TAB PO SCH (09:46)
[2023-03-10] MEDS: SERTRALINE 50 MG TAB PO SCH (09:46)
[2023-03-10] MEDS: AZITHROMYCIN 500 MG TAB PO SCH (09:46)
[2023-03-10] MEDS: carvediloL 12.5 MG TAB PO SCH (09:46)
[2023-03-10] MEDS: HEPARIN SODIUM,PORCINE 5,000 UNIT/ML 1 ML VIAL SQ SCH (09:46)
[2023-03-10] MEDS ORDERED: PROMETHAZINE SUPPOSITORY 12.5 MG SUPP RECTAL PRN (11:18)
--- NOTE | 2023-03-10 11:33 | P.PN ---
Subjective this is a pleasant 77 years old male with past medical history of Diabetes Mellitus, Hyperlipidemia, Hypertension, Osteoarthritis, cervical spine de compression and fusion surgery. PCP is Dr. Blount patient was sent from our with for shortness of breathwith hypoxia and saturating 81. 82% on 4 L oxygen via nasal cannula. Right upper extremity PICC line patient last time he was discharged on daptomycin every 48 hours 14 days.patient finished treatment and his lower extremity cellulitis is improving patient currently on BiPAP, with oxygen saturation 97%. Afebrile. Labs showed leukocytosis of 14,000, hemoglobin 7.5 creatinine is elevated at 2.8 which is at baseline of 2.2-3.0 Troponin is elevated at 0.15, 0.13.proBNP 4460. TSH is low at 0.09 Urine analysis is not suspicious for infection. chest x-ray: confluent bilateral Multifocal airspace opacities patient is a started on ceftriaxone, Zithromax IV Lasix 03/09/2023 Patient is kind of BiPAP dependent. He is fully awake and oriented. He is still on FiO2 of 80%. Also his coughing and sometimes with phlegm but no chest pain. His blood eating well because of his BiPAP. His sugar is monitored closely. No much like edema and he has coarse precipitation on both sides of the lung Patient favors coming down 100.2. Patient tachypneic 40 Breaths Per Minute Compared to 33 Yesterday. Leukocytosis around the Same 18.3, Creatinine Is Slightly Lower at 2.7, Hemoglobin Is Stable 7.2. Patient Remains on Ceftriaxone, Zithromax, IV Lasix Lower 40 Mg Once Daily. Heparin Drip Was Discontinued by Cardiology Team and Place Him on Subcutaneous Heparin. Priorcalcitonin is mildly elevated at 0.53 03/10/2023 pt is alert and awake , still BiBAP dependant most of the day and that he desat urates quickly pt denies and chest pain ,no abd pain, he feels thirsty Once he was taking of BiPAP he got desaturate and he cannot take his oral medication therefore was switched off his medication into intravenous doses. We'll keep with the patient closely I talked to the nurse to take her PICC line off from her right arm as it is been there for almost 2 weeks Active Medications Generic Name Dose Route Start Last Admin Trade Name Freq PRN Reason Stop Dose Admin Hydrocodone Bitart/Acetaminophen 1 each 03/08/23 09:03 03/09/23 16:40 Hydrocodone/Apap 10-325mg 1 Each Tab PO 1 each TID PRN Administration Pain Albuterol Sulfate 2.5 mg 03/08/23 08:00 03/10/23 08:41 Albuterol Nebulized 2.5 Mg/3 Ml INHALATION 2.5 mg RT-QID FRANKO Administration Albuterol/Ipratropium 3 ml 03/08/23 09:03 Ipratropium-Albuterol 3 Ml Neb INHALATION RT-Q6H PRN Shortness Of Breath Aspirin 81 mg 03/08/23 12:00 03/10/23 09:45 Aspirin 81 Mg PO 81 mg DAILY@1200 FRANKO Administration Aspirin 300 mg 03/11/23 09:00 Aspirin 300 Mg Supp RECTAL DAILY FRANKO Atorvastatin Calcium 40 mg 03/10/23 09:00 03/10/23 09:45 Atorvastatin 40 Mg Tab PO 40 mg DAILY FRANKO Administration Bisacodyl 10 mg 03/08/23 09:03 Bisacodyl 10 Mg Supp RECTAL DAILY PRN Constipation Bisacodyl 10 mg 03/11/23 09:00 Bisacodyl 10 Mg Supp RECTAL DAILY [facility] Dextrose/Water 25 ml 03/07/23 23:40 Dextrose 50% Syringe 50 Ml IVP PER PROTOCOL PRN Hypoglycemia Protocol Dextrose/Water 50 ml 03/07/23 23:40 Dextrose 50% Syringe 50 Ml IVP PER PROTOCOL PRN Hypoglycemia Protocol Famotidine 20 mg 03/10/23 21:00 Famotidine 20 Mg/2 Ml Vial IV 04/09/23 21:01 Q12HR [facility] Furosemide 40 mg 03/11/23 09:00 Furosemide 10 Mg/Ml 4 Ml Vial IV DAILY [facility] Hydralazine HCl 100 mg 03/08/23 17:00 03/10/23 09:44 Hydralazine Hcl 50 Mg Tab PO 100 mg BID@0800,1700 FRANKO Administration Hydralazine HCl 10 mg 03/10/23 11:23 Hydralazine Hcl 20 Mg/Ml 1 Ml Vial IVP Q8HR PRN Blood Pressure - High Hydromorphone HCl 1 mg 03/07/23 23:36 03/10/23 03:01 Hydromorphone 1 Mg/Ml 1 Ml Syringe IVP 1 mg Q3HR PRN Administration Severe Pain (Scale 7 to 10) Ceftriaxone Sodium 2 gm/ 50 mls @ 100 mls/hr 03/09/23 01:00 03/10/23 00:09 Sodium Chloride IVPB 03/12/23 01:29 100 mls/hr Q24H [facility] Administration Protocol Azithromycin 500 mg/ Sodium 250 mls @ 250 mls/hr 03/10/23 12:00 Chloride IVPB 03/12/23 12:59 DAILY@1200 [facility] Protocol Insulin Aspart 0 unit 03/09/23 12:00 03/10/23 05:58 Insulin Aspart (Novolog) 100 Unit/Ml Vial SQ Not Given Q6HR [facility] Protocol Levothyroxine Sodium 100 mcg 03/10/23 11:30 Levothyroxine Ivp 100 Mcg/5 Ml Vial IV DAILY [facility] Metoprolol Tartrate 2.5 mg 03/10/23 16:00 Metoprolol Tartrate 5 Mg/5 Ml Vial IVP Q8HR [facility] Miscellaneous Information 1 each 03/07/23 23:36 Pneumonia Protocol Utilized 1 Each Misc PO ONCE PRN Per Protocol Naloxone HCl 0.2 mg 03/07/23 23:36 Naloxone 0.4 Mg/Ml 1 Ml Vial IV Q2M PRN Opioid Reversal Promethazine HCl 12.5 mg 03/10/23 11:18 Promethazine Suppository 12.5 Mg Supp RECTAL QID PRN Nausea And Vomiting Sodium Biphosphate/Sodium Phosphate 133 ml 03/08/23 09:12 Na Phos,M-B/Na Phos,Di-Ba 133 Ml Enema RECTAL DAILY PRN Constipation Objective - Vital Signs Vital signs: Vital Signs Temp 97.6 F 03/10/23 04:10 Pulse 71 03/10/23 04:10 Resp 28 H 03/10/23 04:10 BP 140/59 03/10/23 04:10 Pulse Ox 91 L 03/10/23 04:10 FiO2 80 03/10/23 04:10 Intake & Output 03/09/23 03/10/23 03/10/23 18:59 06:59 18:59 Intake Total 660 270 Output Total 700 1500 Balance -40 -1230 Weight 117 kg Intake: Oral 660 270 Output: Urine 700 1500 Other: Voiding Method External Catheter External Catheter - Exam -GENERAL: The patient is alert and oriented x3, in mild respiratory distress, on BiPAP machine HEENT: Pupils are round and equally reacting to light. EOMI. No scleral icterus. No conjunctival pallor. Normocephalic, atraumatic. No pharyngeal erythema. No thyromegaly. CARDIOVASCULAR: S1 and S2 present. No murmurs, rubs, or gallops. -PULMONARY: Chest is clear to auscultation, no wheezing , decreased air entry in both sides with scattered crackles ABDOMEN: Soft, nontender, nondistended, normoactive bowel sounds. No palpable organomegaly. MUSCULOSKELETAL: No joint swelling or deformity. EXTREMITIES: No cyanosis, clubbing, or pedal edema. NEUROLOGICAL: Gross neurological examination did not reveal any focal deficits. SKIN: No rashes. no petechiae. - Labs CBC & Chem 7: 03/09/23 08:48 03/09/23 08:48 Labs: Abnormal Lab Results - Last 24 Hours (Table) 03/09/23 03/09/23 03/09/23 Range/Units 08:48 08:48 08:48 WBC 18.3 H (3.8-10.6) k/uL RBC 2.28 L (4.30-5.90) m/uL Hgb 7.2 L (13.0-17.5) gm/dL Hct 22.3 L (39.0-53.0) % Neutrophils # 16.6 H (1.3-7.7) k/uL Lymphocytes # 0.4 L (1.0-4.8) k/uL Retic Count 2.5 H (0.5-2.0) % APTT 35.5 H (22.0-30.0) sec Chloride 108 H (98-107) mmol/L Carbon Dioxide 21 L (22-30) mmol/L BUN 70 H (9-20) mg/dL Creatinine 2.76 H (0.66-1.25) mg/dL Glucose 139 H (74-99) mg/dL POC Glucose (mg/dL) (70-110) mg/dL Iron 9 L (65-175) UG/DL TIBC 186 L (228-460) UG/DL % Saturation 4.84 L (15.00-50.00) Transferrin 133.0 L (204.0-354.0) mg/dL Ferritin 1017.0 H (22.0-322.0) ng/mL 03/09/23 03/09/2323 Range/Units 11:57 18:01 23:59 WBC (3.8-10.6) k/uL RBC (4.30-5.90) m/uL Hgb (13.0-17.5) gm/dL Hct (39.0-53.0) % Neutrophils # (1.3-7.7) k/uL Lymphocytes # (1.0-4.8) k/uL Retic Count (0.5-2.0) % APTT (22.0-30.0) sec Chloride (98-107) mmol/L Carbon Dioxide (22-30) mmol/L BUN (9-20) mg/dL Creatinine (0.66-1.25) mg/dL Glucose (74-99) mg/dL POC Glucose (mg/dL) 161 H 158 H 145 H (70-110) mg/dL Iron (65-175) UG/DL TIBC (228-460) UG/DL % Saturation (15.00-50.00) Transferrin (204.0-354.0) mg/dL Ferritin (22.0-322.0) ng/mL 03/10/23 Range/Units 05:57 WBC (3.8-10.6) k/uL RBC (4.30-5.90) m/uL Hgb (13.0-17.5) gm/dL Hct (39.0-53.0) % Neutrophils # (1.3-7.7) k/uL Lymphocytes # (1.0-4.8) k/uL Retic Count (0.5-2.0) % APTT (22.0-30.0) sec Chloride (98-107) mmol/L Carbon Dioxide (22-30) mmol/L BUN (9-20) mg/dL Creatinine (0.66-1.25) mg/dL Glucose (74-99) mg/dL POC Glucose (mg/dL) 150 H (70-110) mg/dL Iron (65-175) UG/DL TIBC (228-460) UG/DL % Saturation (15.00-50.00) Transferrin (204.0-354.0) mg/dL Ferritin (22.0-322.0) ng/mL Assessment and Plan Assessment: bilateral airspace opacities suspicious for bilateral pneumonia, Versus pulmonary edema bilateral leg edema with stasis dermatitis multifactorial also due to heart failure normochromic, normocytic anemia chronic kidney disease stage III Diabetes mellitus Hypertension Hyperlipidemia History of osteoarthritis Hypothyroidism with very low TSH upper extremity tremor on mirapex restless leg syndrom Plan: continue with antibiotic ceftriaxone and Zithromax continue with IV Lasix Change his oral medication to IV Follow-up Culture results Bronchodilator and pulmonary consult cardiology consult patient on levothyroxine at 175 g. In view of low TSH hold levothyroxine today and to start 150 g tomorrow and recheck thyroid function test in 1-2 months Labs and medication were reviewed.. Continue same treatment. Continue with symptomatic treatment. Resume home medication. Monitor lytes and vitals. DVT and GI prophylaxis. Further recommendations depends on the clinical course of the patient DVT prophylaxis: Subcutaneous heparin GI Prophylaxis: Pepcid Prognosis is guarded
--- NOTE | 2023-03-10 11:54 | P.CONS ---
History of Present Illness - Reason for Consult Consult date: 03/10/23 wound care - History of Present Illness This is a 77-year-old patient being seen by the wound care center on [address]. Patient is currently sitting up in bed with a CPAP machine in place unable to answer questions due to respiratory distress. Patient has a stage II pressure ulcer to the coccyx with multiple small open areas and excoriation noted. Patient also has a nonhealing ulceration Limited to skin breakdown to the left anterior lower extremity. Patient is unsure how long the ulcerations have been there. His past medical history significant for skin cancer, diabetes, hyperlipidemia, hypertension, BPH, renal disease, neuropathy, restless legs patient is a former smoker. Review Of Systems: Constitutional: No fever, no chills, no night sweats. No weight change. No weakness, fatigue or lethargy. No daytime sleepiness. Integumentary:reports wounds, no lesions. No rash or pruritus. No unusual bruising. No change in hair or nails. Physical exam: General Appearance: Alert, cooperative, no distress, appears stated age. Skin: See HPI all other Skin color, texture, tugor normal, no rashes or lesions. Neurologic: Alert oriented x3 Assessment: 1. Stage II pressure ulcer coccyx 2. Nonhealing ulceration Limited to skin breakdown left lower extremity 3. Diabetes with skin ulceration Plan: 1. Coccyx: Apply triad daily may apply a sacral border foam if needed May reapply triad as needed. Continue to turn patient every 2 hours. Utilize air- filled cushion when sitting. Review the surface algorithm for the appropriate surface. Left lower extremity ulceration apply triad and Diallo wrap. Change daily. Thank you for the consultation any questions contact the wound care center DNP note has been reviewed and discussed with Dr. Campos and the impression and plan of care has been directed as dictated. Past Medical History Past Medical History: Cancer, Diabetes Mellitus, Hyperlipidemia, Hypertension, Osteoarthritis (OA), Prostate Disorder, Renal Disease, Thyroid Disorder Additional Past Medical History / Comment(s): Falls at home 02/13/23. skin cancer, neuropathy , restless legs History of Any Multi-Drug Resistant Organisms: None Reported Past Surgical History: Orthopedic Surgery Additional Past Surgical History / Comment(s): sinus sx. cancer removed lt ear. colonoscopy , 07-07-17 anterior cervical decompression/discectomy/fusion c3-4, c4-5 Past Anesthesia/Blood Transfusion Reactions: No Reported Reaction Past Psychological History: Anxiety, Depression Smoking Status: Former smoker Past Alcohol Use History: None Reported Past Drug Use History: None Reported - Past Family History Father Additional Family Medical History / Comment(s): aortic aneurysm Mother Family Medical History: Cancer Additional Family Medical History / Comment(s): pancreas cancer Medications and Allergies Home Medications Medication Instructions Recorded Confirmed Type Finasteride [Proscar] 5 mg PO DAILY@0800 05/17/17 03/08/23 History allopurinoL [Zyloprim] 300 mg PO HS 05/17/17 03/08/23 History Pramipexole [Mirapex] 1 mg PO Q8HR@0600,1400,2200 02/17/21 03/08/23 History Sertraline [Zoloft] 50 mg PO BID@0800,2100 02/17/21 03/08/23 History Aspirin 81 mg PO DAILY@1200 07/09/21 03/08/23 History Cholecalciferol [Vitamin D3 (25 25 mcg PO DAILY@1200 02/02/22 03/08/23 History Mcg = 1000 Iu)] amLODIPine [Norvasc] 5 mg PO BID@0800,1700 02/02/22 03/08/23 History hydrALAZINE HCL [Apresoline] 100 mg PO BID@0800,1700 02/02/22 03/08/23 History Famotidine [Pepcid] 20 mg PO DAILY@0600 02/13/23 03/08/23 History Ferrous Sulfate [Iron (65 MG 325 mg PO DAILY@1200 02/13/23 03/08/23 History Elemental)] Levothyroxine Sodium [Synthroid] 175 mcg PO DAILY@0600 02/13/23 03/08/23 History Tamsulosin HCl [Flomax] 0.4 mg PO HS 02/13/23 03/08/23 History carvediloL [Coreg] 12.5 mg PO BID@0800,1700 02/13/23 03/08/23 History DAPTOmycin [Cubicin] 350 mg IVPB Q48H 14 Days #7 each 02/22/23 03/08/23 Rx HYDROcodone/APAP 10-325MG [[place] 1 tab PO TID PRN #6 tab 02/22/23 03/08/23 Rx 10-325] Acetaminophen [Tylenol] 650 mg PO Q4H PRN 03/08/23 03/08/23 History Darbepoetin Amrit [Aranesp] 40 mcg SQ FR@1200 03/08/23 03/08/23 History Heparin Sodium,Porcine (1 ml) 5,000 unit SQ Q8HR@0600,1400,2200 03/08/23 03/08/23 History [Heparin Sodium] INSULIN ASPART (NovoLOG) [NovoLOG See Protocol SQ ACHS 03/08/23 03/08/23 History (formulary)] Ipratropium-Albuterol Nebulize 3 ml INHALATION RT-Q6H PRN 03/08/23 03/08/23 History [Duoneb 0.5 mg-3 mg/3 ml Soln] Magnesium Hydroxide [Milk of 7,200 mg PO Q2D PRN 03/08/23 03/08/23 History Magnesia Concentrate] Na Phos,M-B/Na Phos,Di-Ba [Fleet 133 ml RECTAL DAILY PRN 03/08/23 03/08/23 History Adult] Nystatin 100,000 Unit/gm Powd 1 applic TOPICAL BID 03/08/23 03/08/23 History [Mycostatin Powder] Pregabalin [Lyrica] 150 mg PO Q12HR@0800,2100 03/08/23 03/08/23 History SILVER sulfADIAZINE Cream 1 applic TOPICAL DAILY 03/08/23 03/08/23 History [Silvadene 1% Cream] Sennosides [Senokot] 8.6 mg PO DAILY@0800 03/08/23 03/08/23 History Sodium Bicarbonate Tab 650 mg PO BID@0800,1700 03/08/23 03/08/23 History bisacodyL [Dulcolax] 10 mg RECTAL DAILY PRN 03/08/23 03/08/23 History Allergies Allergy/AdvReac Type Severity Reaction Status Date / Time enalaprilat [From Vasotec] AdvReac felt weak, Verified 03/08/23 08:05 couldn't talk erythromycin base AdvReac Nausea & Verified 03/08/23 08:05 [From Erythrocin] Vomiting Physical Exam Vitals: Vital Signs Temp Pulse Pulse Pulse Resp BP Pulse Ox 03/10/23 09:40 99.7 F H 74 28 H 143/58 94 L 03/10/23 08:56 72 03/10/23 08:44 75 03/10/23 08:41 03/10/23 04:10 97.6 F 71 28 H 140/59 91 L 03/10/23 03:17 03/10/23 02:00 67 28 H 03/10/23 00:04 98.7 F 67 28 H 147/58 94 L 03/09/23 23:40 03/09/23 21:02 03/09/23 20:33 67 03/09/23 20:30 99.7 F H 67 32 H 142/61 99 03/09/23 20:22 69 03/09/23 20:00 67 32 H 03/09/23 16:00 99.6 F 68 28 H 139/56 03/09/23 15:44 80 03/09/23 14:00 74 40 H 03/09/23 12:00 100.2 F H 74 40 H 151/58 FiO2 03/10/23 09:40 94 03/10/23 08:56 03/10/23 08:44 03/10/23 08:41 80 03/10/23 04:10 80 03/10/23 03:17 80 03/10/23 02:00 03/10/23 00:04 80 03/09/23 23:40 80 03/09/23 21:02 80 03/09/23 20:33 03/09/23 20:30 60 03/09/23 20:22 60 03/09/23 20:00 03/09/23 16:00 03/09/23 15:44 60 03/09/23 14:00 03/09/23 12:00 Intake and Output 03/09/23 03/10/23 03/10/23 22:59 06:59 14:59 Intake Total 570 Output Total 600 900 Balance - Intake: Oral 570 Output: Urine 600 900 Other: Voiding Method External Catheter External Catheter External Catheter Weight 117 kg Results CBC & Chem 7: 03/09/23 08:48 03/09/23 08:48 Labs: Abnormal Lab Results - Last 24 Hours (Table) 03/09/23 03/09/23 03/09/23 Range/Units 08:48 11:57 18:01 POC Glucose (mg/dL) 161 H 158 H (70-110) mg/dL Iron 9 L (65-175) UG/DL TIBC 186 L (228-460) UG/DL % Saturation 4.84 L (15.00-50.00) Transferrin 133.0 L (204.0-354.0) mg/dL Ferritin 1017.0 H (22.0-322.0) ng/mL 03/09/23 03/10/23 Range/Units 23:59 05:57 POC Glucose (mg/dL) 145 H 150 H (70-110) mg/dL Iron (65-175) UG/DL TIBC (228-460) UG/DL % Saturation (15.00-50.00) Transferrin (204.0-354.0) mg/dL Ferritin (22.0-322.0) ng/mL Assessment and Plan (1) Stage II pressure ulcer of sacral region Current Visit: Yes Status: Acute Code(s): L89.152 - PRESSURE ULCER OF SACRAL REGION, STAGE 2 SNOMED Code(s): 68288806984030 (2) Non-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
[2023-03-10] MEDS ORDERED: AZITHROMYCIN 500 MG in SODIUM CHLORIDE 0.9% 250 ML IVPB SCH (12:00)
[2023-03-10 12:07] LABS: Glucose,Whole Blood 160 mg/dL (70-110)
[2023-03-10] MEDS: HYDROPHILIC CREAM 180 GM TUBE TOPICAL SCH (14:07)
--- NOTE | 2023-03-10 15:33 | P.PN ---
Subjective Progress Note Date: 03/10/23 Principal diagnosis: Hypoxemic respiratory failure. I am seeing this patient in new consultation today 03/08/2023 in the emergency room after he presented late last night from his rehab facility with complaints of shortness of breath and nonproductive cough. Patient is a 77-year-old white male with past medical history significant for hypertension, hyperlipidemia, diabetes mellitus type 2, chronic kidney disease, obesity, hypothyroidism, and prior back surgeries. Denies any history of pulmonary disease including COPD or asthma. Ex-smoker of over 30 years ago. Patient did have a recent hospital admission from February 13 through February 22 for falls and lower ext remity cellulitis. He was discharged to [facility], and was receiving IV Daptomycin through a right upper extremity PICC. Patient did return to the emergency room late last night via EMS for complaints of progressively worsening shortness of breath and nonproductive cough that started since his recent hospital discharge. He denies any fevers, chills, myalgias, chest pain. He does admit lower extremity swelling. His lower extremities are erythemic, but states that they're improved since initiating his IV antibiotics. Patient is currently sitting up in bed, on BiPAP with settings 12/6 and FiO2 of 60%. He appears fairly comfortable, and not in any acute respiratory distress. Respiratory rate is in the mid 20s and he is achieving tidal volumes around 600- 700. Chest x-ray on admission shows multifocal airspace opacities concerning for pneumonia. Patient has been started on empiric antibiotics. Currently afebrile. CBC shows leukocytosis with a WBC count of 15.1, hemoglobin 8, h ematocrit 25.1, platelets 194. BMP from admission shows a sodium 138, potassium 4.5, chloride 105, serum bicarb 20, BUN 66, creatinine 2.91, glucose 160. Lactic acid level was 1.1. Troponins are 0.149 and 0.155 respectively. NT proBNP 4460. Patient was given a one-time dose of Lasix 80 mg in the ER. He appears hemodynamically stable at this time. Patient will be monitored on the cardiac stepdown unit. Progress note dated 03/09/2023. 77-year-old male, who was seen in the emergency department yesterday. The patient was admitted with a diagnosis of hypoxemic respiratory failure. The adam gabriel has a history of hypertension, hyperlipidemia, type 2 diabetes, chronic kidney disease, obesity, and hypothyroidism. The patient N-terminal proBNP was 4460. The patient was placed on BiPAP, and continues on BiPAP. The settings include 12/6, and 80%. He's not receiving any IV fluids the patient will have a follow-up chest x-ray in the morning. The patient's BMP was elevated as was his pro-calcitonin level. The patient remains on Zithromax and Rocephin. White count is 18.3, hemoglobin 7.2, hematocrit 22.3, with a normal platelet count. Sodium 139, potassium 4.3, chlorides 108, CO2 21, BUN 70, and creatinine 2.76. Progress note dated 03/10/2023. This is a 77-year-old male, seen in consultation 2 days ago. He was diagnosed with hypoxemic respiratory failure, secondary to fluid overload. The patient N- terminal proBNP was 4460. The patient has a history of hypertension, hype rlipidemia, type 2 diabetes, chronic kidney disease, recently, and hypothyroidism. The patient remains on BiPAP, with settings of 12/6 and 80%. Clinically he feels much better. A chest x-ray was ordered for tomorrow. The patient continues on azithromycin and Rocephin as well. No new labs today other than a glucose of 160. Objective - Vital Signs Vital signs: Vital Signs Temp 99.7 F H 03/10/23 09:40 Pulse 67 03/10/23 12:40 Resp 28 H 03/10/23 09:40 BP 143/58 03/10/23 09:40 Pulse Ox 94 L 03/10/23 09:40 FiO2 70 03/10/23 12:25 Intake & Output 03/09/23 03/10/23 03/10/23 18:59 06:59 18:59 Intake Total 660 270 Output Total 700 1500 Balance -40 -1230 Weight 117 kg Intake: Oral 660 270 Output: Urine 700 1500 Other: Voiding Method External Catheter External Catheter External Catheter - Exam Oriented 3. BiPAP mask in place. Improve respiratory status. No conversational dyspnea HEENT examination is grossly unremarkable. Neck supple. Full range of motion. No adenopathy thyromegaly or neck vein distention. Cardiovascular examination reveals regular rhythm rate. S1-S2 normal. No S3 or S4. No discernible murmur noted. Heart rate 67 bpm. Heart sounds are distant. Lungs reveal scattered rhonchi and crackles. Breath sounds equal. Saturations are 96%. Breath sounds are equal bilaterally. No distinct wheezes noted. Abdomen soft bowel sounds are heard. No masses or tenderness. Extremities are intact. No cyanosis clubbing or edema. Skin is without rash or lesion. Neurologic examination is brief but nonfocal. - Labs CBC & Chem 7: 03/09/23 08:48 03/09/23 08:48 Labs: Abnormal Lab Results - Last 24 Hours (Table) 03/09/23 03/09/23 03/09/23 Range/Units 08:48 18:01 23:59 POC Glucose (mg/dL) 158 H 145 H (70-110) mg/dL Iron 9 L (65-175) UG/DL TIBC 186 L (228-460) UG/DL % Saturation 4.84 L (15.00-50.00) Transferrin 133.0 L (204.0-354.0) mg/dL Ferritin 1017.0 H (22.0-322.0) ng/mL 03/10/23 03/10/23 Range/Units 05:57 12:06 POC Glucose (mg/dL) 150 H 160 H (70-110) mg/dL Iron (65-175) UG/DL TIBC (228-460) UG/DL % Saturation (15.00-50.00) Transferrin (204.0-354.0) mg/dL Ferritin (22.0-322.0) ng/mL Assessment and Plan Assessment: Acute hypoxemic respiratory failure, secondary to possible healthcare associated pneumonia, versus acute pulmonary edema. Bilateral lower extremity edema, and cellulitis. Elevated troponins, rule out non-ST segment elevation myocardial infarction. Anemia of chronic disease. Stage III chronic kidney disease. Type 2 diabetes mellitus. Benign essential hypertension. Dyslipidemia. Hypothyroidism. Benign prostatic hypertrophy. Obesity. Plan: Plan dated 03/09/2023. Currently, the patient's on BiPAP, with settings of 12/6, and 80%. Remains on Zithromax and Rocephin for possible pneumonia. Both the patient's BNP, and pro- calcitonin level were elevated. The patient is not receiving any IV fluids. Chest x-rays were ordered for the morning. Labs, x-rays, and medications are all reviewed. Prognosis is guarded. We will continue to follow the patient, and make recommendations along the way. Plan dated 03/10/2023. The patient clinically looks much improved. He appears much less short of breath. He continues on BiPAP. In addition, the patient continues on antibiotics for possible pneumonia. The patient's BMP was elevated as was the pro-calcitonin level. The patient is not receiving any IV fluids. The chest x- ray from today is reviewed. Labs, x-rays, and medications are reviewed. Prognosis is guarded. We will continue to follow the patient, and make recomm endations along the way. Time with Patient: Less than 30
[2023-03-10 17:51] LABS: Glucose,Whole Blood 144 mg/dL (70-110)
[2023-03-10] MEDS: METOPROLOL TARTRATE 5 MG/5 ML VIAL IVP SCH (18:02)
--- NOTE | 2023-03-10 18:27 | CDI ---
Documentation Clarification Form Date: 03/10/2023 05:59:28 PM From: Elzbieta Stanford RN, CCDS Admit Date: 03/07/2023 11:36:00 PM Patient Name: Peyman Carter Visit Number: [id number] Discharge Date: ATTENTION: The Clinical Documentation Specialists (CDI) and [facility] Coding Staff appreciate your assistance in clarifying documentation. Please respond to the clarification below the line at the bottom and electronically sign. The CDI & [facility] Coding staff will review the response and follow-up if needed. Please note: Queries are made part of the Legal Health Record. If you have any questions, please contact the author of this message via ITS. Dr. Corrales E Sheet The patients principal diagnosis the diagnosis that was chiefly responsible for the admission - has not been clearly identified and clarification is requested. The patient presented with shortness of breath, weakness altered mental status and not feeling well. Patient comes from extended-care facility with supplemental O2 and severe shortness of breath with hypoxia. History/Risk factors: Cancer, Diabetes Mellitus, Hyperlipidemia, Hypertension, Osteoarthritis, Prostate Disorder, Renal Disease, Thyroid Disorder Clinical Indicators:77-year-old male with respiratory distress, wheezes, accessory muscle use, decreased breath sounds, prolonged expiratory per ED assessment. 03/07 VS: 139/59 66 22 98.1 90% 8/L NC 03/07 Lab findings: WBC 15.1 HGB 8.0 HCT 25.1 BUN 66 CR 2.91 GFR 20, Lactic acid 1.1, Phosphorus 4.9 Troponin 0.149, BNP 4460 CXT: Multifocal airspace opacities concerning for pneumonia. 03/08 Pulmonary consult: Acute hypoxemic respiratory failure, on BiPAP secondary to suspected healthcare associated pneumonia. 03/08 Cardiology consult: Flat troponins, acute coronary syndrome ruled out, elevated troponin secondary to demand mismatch and poor clearance by kidneys. Acute hypoxic respiratory failure on BiPAP. Pneumonia. Chronic heart failure with preserved ejection fraction (Patient is on Lasix 40 MG IV Daily) Acute kidney injury Treatment: Cardiac/Telemetry monitoring Lasix 40 MG IV Daily 03/10-03/11 Lasix 20 MG IV Q12 03/08 In your professional opinion, can you please clarify which diagnosis, after study, was the reason chiefly responsible for the admission? [ ] Bilateral Pneumonia [ ] Acute on chronic heart failure with preserved ejection fraction [ ] Acute hypoxemic respiratory failure [ ] Other, please specify [ ] Unable to determine (Template Last Revised: August 2020) Acute hypoxic respiratory failure MTDD
[2023-03-10] MEDS ORDERED: FAMOTIDINE 20 MG/2 ML VIAL IV SCH (21:00)
[2023-03-11 00:03] LABS: Glucose,Whole Blood 180 mg/dL (70-110)
[2023-03-11] MEDS: METOPROLOL TARTRATE 5 MG/5 ML VIAL IVP SCH ×4 (00:25→23:57)
[2023-03-11] MEDS: INSULIN ASPART (NovoLOG) 100 UNIT/ML VIAL SQ SCH ×5 (00:26→23:58)
[2023-03-11] MEDS: HYDROmorphone 1 MG/ML 1 ML SYRINGE IVP PRN ×5 (01:07→21:05)
[2023-03-11 05:55] LABS: Glucose,Whole Blood 178 mg/dL (70-110)
[2023-03-11] MEDS: ALBUTEROL NEBULIZED 2.5 MG/3 ML INHALATION SCH ×4 (07:46→20:18)
--- NOTE | 2023-03-11 08:11 | XR ---
EXAMINATION TYPE: XR chest 1V portable DATE OF EXAM: 03/11/2023 Comparison: 03/08/2023 Clinical History: 77-year-old male pneumonia Findings: Heart mildly enlarged. Diffuse bilateral airspace disease persists. There may be minimal improvement in the interval. Impression: Mild cardiomegaly with continued diffuse bilateral airspace disease. The consolidation may be minimal ly improved in the interval.
[2023-03-11] MEDS ORDERED: FUROSEMIDE 40 MG TAB PO SCH (09:00)
[2023-03-11] MEDS: LEVOTHYROXINE IVP 100 MCG/5 ML VIAL IV SCH (09:05)
[2023-03-11] MEDS: FUROSEMIDE 10 MG/ML 4 ML VIAL IV SCH (09:05)
[2023-03-11] MEDS: hydrALAZINE HCL 50 MG TAB PO SCH ×2 (09:05→16:39)
[2023-03-11] MEDS: ATORVASTATIN 40 MG TAB PO SCH (09:06)
[2023-03-11] MEDS: AZITHROMYCIN 500 MG in SODIUM CHLORIDE 0.9% 250 ML IVPB SCH (09:06)
[2023-03-11] MEDS: FAMOTIDINE 20 MG/2 ML VIAL IV SCH (09:06)
[2023-03-11] MEDS: HYDROPHILIC CREAM 180 GM TUBE TOPICAL SCH (09:06)
[2023-03-11] MEDS: ASPIRIN 300 MG SUPP RECTAL SCH (09:08)
[2023-03-11] MEDS: bisacodyL 10 MG SUPP RECTAL SCH (09:08)
[2023-03-11 11:59] LABS: Glucose,Whole Blood 158 mg/dL (70-110)
--- NOTE | 2023-03-11 13:44 | P.PN ---
Subjective Progress Note Date: 03/11/23 Principal diagnosis: Hypoxemic respiratory failure. I am seeing this patient in new consultation today 03/08/2023 in the emergency room after he presented late last night from his rehab facility with complaints of shortness of breath and nonproductive cough. Patient is a 77-year-old white male with past medical history significant for hypertension, hyperlipidemia, diabetes mellitus type 2, chronic kidney disease, obesity, hypothyroidism, and prior back surgeries. Denies any history of pulmonary disease including COPD or asthma. Ex-smoker of over 30 years ago. Patient did have a recent hospital admission from February 13 through February 22 for falls and lower ext remity cellulitis. He was discharged to [facility], and was receiving IV Daptomycin through a right upper extremity PICC. Patient did return to the emergency room late last night via EMS for complaints of progressively worsening shortness of breath and nonproductive cough that started since his recent hospital discharge. He denies any fevers, chills, myalgias, chest pain. He does admit lower extremity swelling. His lower extremities are erythemic, but states that they're improved since initiating his IV antibiotics. Patient is currently sitting up in bed, on BiPAP with settings 12/6 and FiO2 of 60%. He appears fairly comfortable, and not in any acute respiratory distress. Respiratory rate is in the mid 20s and he is achieving tidal volumes around 600- 700. Chest x-ray on admission shows multifocal airspace opacities concerning for pneumonia. Patient has been started on empiric antibiotics. Currently afebrile. CBC shows leukocytosis with a WBC count of 15.1, hemoglobin 8, h ematocrit 25.1, platelets 194. BMP from admission shows a sodium 138, potassium 4.5, chloride 105, serum bicarb 20, BUN 66, creatinine 2.91, glucose 160. Lactic acid level was 1.1. Troponins are 0.149 and 0.155 respectively. NT proBNP 4460. Patient was given a one-time dose of Lasix 80 mg in the ER. He appears hemodynamically stable at this time. Patient will be monitored on the cardiac stepdown unit. Progress note dated 03/09/2023. 77-year-old male, who was seen in the emergency department yesterday. The patient was admitted with a diagnosis of hypoxemic respiratory failure. The adam gabriel has a history of hypertension, hyperlipidemia, type 2 diabetes, chronic kidney disease, obesity, and hypothyroidism. The patient N-terminal proBNP was 4460. The patient was placed on BiPAP, and continues on BiPAP. The settings include 12/6, and 80%. He's not receiving any IV fluids the patient will have a follow-up chest x-ray in the morning. The patient's BMP was elevated as was his pro-calcitonin level. The patient remains on Zithromax and Rocephin. White count is 18.3, hemoglobin 7.2, hematocrit 22.3, with a normal platelet count. Sodium 139, potassium 4.3, chlorides 108, CO2 21, BUN 70, and creatinine 2.76. Progress note dated 03/10/2023. This is a 77-year-old male, seen in consultation 2 days ago. He was diagnosed with hypoxemic respiratory failure, secondary to fluid overload. The patient N- terminal proBNP was 4460. The patient has a history of hypertension, hype rlipidemia, type 2 diabetes, chronic kidney disease, recently, and hypothyroidism. The patient remains on BiPAP, with settings of 12/6 and 80%. Clinically he feels much better. A chest x-ray was ordered for tomorrow. The patient continues on azithromycin and Rocephin as well. No new labs today other than a glucose of 160. Progress note dated 03/11/2023. 77-year-old male seen in consultation a few days ago. He came in with hypoxemic respiratory failure secondary to fluid overload. He had an elevated N-terminal proBNP. The patient is seen again in room 372. He remains on BiPAP, with s ettings of 12/6, at 70%. The patient's chest x-ray, dated March 11, is improved. Clinically, the patient feels much improved. Labs are reviewed. Glucose 158. Objective - Vital Signs Vital signs: Vital Signs Temp 98.3 F 03/11/23 12:00 Pulse 70 03/11/23 12:00 Resp 24 03/11/23 12:00 BP 131/91 03/11/23 12:00 Pulse Ox 88 L 03/11/23 12:00 FiO2 70 03/11/23 12:00 Intake & Output 03/10/23 03/11/23 03/11/23 18:59 06:59 18:59 Intake Total 100 250 Output Total 900 400 Balance -800 -400 250 Weight 109.5 kg 109.5 kg Intake: Intake, IV Titration 250 Amount Azithromycin 500 mg In 250 Sodium Chloride 0.9% 250 ml @ 250 mls/hr IVPB DAILY [facility] Rx#:[id number] Oral 100 Output: Urine 900 400 Other: Voiding Method External Catheter External Catheter - Exam Oriented 3. BiPAP mask in place. Improve respiratory status. No conversational dyspnea HEENT examination is grossly unremarkable. Neck supple. Full range of motion. No adenopathy thyromegaly or neck vein distention. Cardiovascular examination reveals regular rhythm rate. S1-S2 normal. No S3 or S4. No discernible murmur noted. Heart rate 72 bpm. Heart sounds are distant. Lungs reveal scattered rhonchi and crackles. Breath sounds equal. Saturations are 92 %. Breath sounds are equal bilaterally. No distinct wheezes noted. Abdomen soft bowel sounds are heard. No masses or tenderness. Extremities are intact. No cyanosis clubbing or edema. Skin is without rash or lesion. Neurologic examination is brief but nonfocal. - Labs CBC & Chem 7: 03/09/23 08:48 03/09/23 08:48 Labs: Abnormal Lab Results - Last 24 Hours (Table) 03/10/23 03/11/23 03/11/23 Range/Units 17:49 00:02 05:53 POC Glucose (mg/dL) 144 H 180 H 178 H (70-110) mg/dL 03/11/23 Range/Units 11:46 POC Glucose (mg/dL) 158 H (70-110) mg/dL Assessment and Plan Assessment: Acute hypoxemic respiratory failure, secondary to possible healthcare associated pneumonia, versus acute pulmonary edema. Bilateral lower extremity edema, and cellulitis. Elevated troponins, rule out non-ST segment elevation myocardial infarction. Anemia of chronic disease. Stage III chronic kidney disease. Type 2 diabetes mellitus. Benign essential hypertension. Dyslipidemia. Hypothyroidism. Benign prostatic hypertrophy. Obesity. Plan: Plan dated 03/09/2023. Currently, the patient's on BiPAP, with settings of 12/6, and 80%. Remains on Zithromax and Rocephin for possible pneumonia. Both the patient's BNP, and pro- calcitonin level were elevated. The patient is not receiving any IV fluids. Chest x-rays were ordered for the morning. Labs, x-rays, and medications are all reviewed. Prognosis is guarded. We will continue to follow the patient, and make recommendations along the way. Plan dated 03/10/2023. The patient clinically looks much improved. He appears much less short of breath. He continues on BiPAP. In addition, the patient continues on antibiotics for possible pneumonia. The patient's BMP was elevated as was the pro-calcitonin level. The patient is not receiving any IV fluids. The chest x- ray from today is reviewed. Labs, x-rays, and medications are reviewed. Prognosis is guarded. We will continue to follow the patient, and make recommendations along the way. Plan dated 03/11/2023. Clinically, the patient appears to be doing better. Also, radiographically, the patient is better. He feels much less short of breath. The patient's labs, x- rays, and medications are reviewed. We will continue to follow the patient make recommendations along the way. Initially, the BNP, and the pro-calcitonin level were elevated. The patient's prognosis remains guarded. We will continue to see the patient, and make recommendations where appropriate. Time with Patient: Less than 30
--- NOTE | 2023-03-11 13:57 | P.PN ---
Subjective this is a pleasant 77 years old male with past medical history of Diabetes Mellitus, Hyperlipidemia, Hypertension, Osteoarthritis, cervical spine de compression and fusion surgery. PCP is Dr. Blount patient was sent from our with for shortness of breathwith hypoxia and saturating 81. 82% on 4 L oxygen via nasal cannula. Right upper extremity PICC line patient last time he was discharged on daptomycin every 48 hours 14 days.patient finished treatment and his lower extremity cellulitis is improving patient currently on BiPAP, with oxygen saturation 97%. Afebrile. Labs showed leukocytosis of 14,000, hemoglobin 7.5 creatinine is elevated at 2.8 which is at baseline of 2.2-3.0 Troponin is elevated at 0.15, 0.13.proBNP 4460. TSH is low at 0.09 Urine analysis is not suspicious for infection. chest x-ray: confluent bilateral Multifocal airspace opacities patient is a started on ceftriaxone, Zithromax IV Lasix 03/09/2023 Patient is kind of BiPAP dependent. He is fully awake and oriented. He is still on FiO2 of 80%. Also his coughing and sometimes with phlegm but no chest pain. His blood eating well because of his BiPAP. His sugar is monitored closely. No much like edema and he has coarse precipitation on both sides of the lung Patient favors coming down 100.2. Patient tachypneic 40 Breaths Per Minute Compared to 33 Yesterday. Leukocytosis around the Same 18.3, Creatinine Is Slightly Lower at 2.7, Hemoglobin Is Stable 7.2. Patient Remains on Ceftriaxone, Zithromax, IV Lasix Lower 40 Mg Once Daily. Heparin Drip Was Discontinued by Cardiology Team and Place Him on Subcutaneous Heparin. Priorcalcitonin is mildly elevated at 0.53 03/10/2023 pt is alert and awake , still BiBAP dependant most of the day and that he desat urates quickly pt denies and chest pain ,no abd pain, he feels thirsty Once he was taking of BiPAP he got desaturate and he cannot take his oral medication therefore was switched off his medication into intravenous doses. We'll keep with the patient closely I talked to the nurse to take her PICC line off from her right arm as it is been there for almost 2 weeks 03/11/2023 Patient is still BiPAP dependent. He is awake alert, he has occasional cough. No chest pain. Patient thinks his breathing is a little worse ALTHOUGH clinically looks the same over the last 2 days. His getting his enteral medications rectally He had low-grade fever today of 100.2. Leukocytosis of 18,000 However chest x-ray showing improvement which is obvious when I reviewed the images myself. Patient remains on Rocephin and Zithromax, IV Lasix 40 mg daily. Objective - Vital Signs Vital signs: Vital Signs Temp 99.0 F 03/11/23 03:40 Pulse 76 03/11/23 08:05 Resp 34 H 03/11/23 03:40 BP 150/63 03/11/23 03:40 Pulse Ox 88 L 03/11/23 03:40 FiO2 70 03/11/23 07:46 Intake & Output 03/10/23 03/11/23 03/11/23 18:59 06:59 18:59 Intake Total 100 Output Total 900 400 Balance -800 -400 Weight 109.5 kg Intake: Oral 100 Output: Urine 900 400 Other: Voiding Method External Catheter External Catheter - Exam -GENERAL: The patient is alert and oriented x3, in mild respiratory distress, on BiPAP machine HEENT: Pupils are round and equally reacting to light. EOMI. No scleral icterus. No conjunctival pallor. Normocephalic, atraumatic. No pharyngeal erythema. No thyromegaly. CARDIOVASCULAR: S1 and S2 present. No murmurs, rubs, or gallops. -PULMONARY: Chest is clear to auscultation, no wheezing , decreased air entry in both sides with scattered crackles ABDOMEN: Soft, nontender, nondistended, normoactive bowel sounds. No palpable organomegaly. MUSCULOSKELETAL: No joint swelling or deformity. EXTREMITIES: No cyanosis, clubbing, or pedal edema. NEUROLOGICAL: Gross neurological examination did not reveal any focal deficits. SKIN: No rashes. no petechiae. - Labs CBC & Chem 7: 03/09/23 08:48 03/09/23 08:48 Labs: Abnormal Lab Results - Last 24 Hours (Table) 03/10/23 03/10/23 03/11/23 Range/Units 12:06 17:49 00:02 POC Glucose (mg/dL) 160 H 144 H 180 H (70-110) mg/dL 03/11/23 Range/Units 05:53 POC Glucose (mg/dL) 178 H (70-110) mg/dL Assessment and Plan Assessment: bilateral airspace opacities suspicious for bilateral pneumonia, Versus pulmonary edema bilateral leg edema with stasis dermatitis multifactorial also due to heart failure normochromic, normocytic anemia chronic kidney disease stage III Diabetes mellitus Hypertension Hyperlipidemia History of osteoarthritis Hypothyroidism with very low TSH upper extremity tremor on mirapex restless leg syndrom Plan: continue with antibiotic ceftriaxone and Zithromax continue with IV Lasix Change his oral medication to IV Follow-up Culture results Bronchodilator and pulmonary consult cardiology consult patient on levothyroxine at 175 g. In view of low TSH hold levothyroxine today and to start 150 g tomorrow and recheck thyroid function test in 1-2 months Labs and medication were reviewed.. Continue same treatment. Continue with symptomatic treatment. Resume home medication. Monitor lytes and vitals. DVT and GI prophylaxis. Further recommendations depends on the clinical course of the patient DVT prophylaxis: Subcutaneous heparin GI Prophylaxis: Pepcid Prognosis is guarded
[2023-03-11 17:05] LABS: Glucose,Whole Blood 152 mg/dL (70-110)
[2023-03-11 23:56] LABS: Glucose,Whole Blood 168 mg/dL (70-110)
[2023-03-12] MEDS: HYDROmorphone 1 MG/ML 1 ML SYRINGE IVP PRN ×3 (01:33→21:07)
[2023-03-12 06:07] LABS: Glucose,Whole Blood 168 mg/dL (70-110)
[2023-03-12] MEDS: INSULIN ASPART (NovoLOG) 100 UNIT/ML VIAL SQ SCH ×3 (06:09→17:08)
[2023-03-12] MEDS: ALBUTEROL NEBULIZED 2.5 MG/3 ML INHALATION SCH ×4 (07:58→21:32)
--- NOTE | 2023-03-12 09:09 | XR ---
EXAMINATION TYPE: XR chest 1V portable DATE OF EXAM: 03/12/2023 Comparison: 03/11/2023 Clinical History: 77-year-old male shortness of breath, dyspnea Findings: Heart borderline to mildly enlarged. Diffuse bilateral airspace opacities are present. No pleural eff usion. Impression: Ongoing diffuse bilateral airspace disease.
[2023-03-12] MEDS ORDERED: MORPHINE SULFATE 4 MG/ML SYRINGE IVP PRN (09:12)
[2023-03-12] MEDS: LEVOTHYROXINE IVP 100 MCG/5 ML VIAL IV SCH (09:23)
[2023-03-12] MEDS: AZITHROMYCIN 500 MG in SODIUM CHLORIDE 0.9% 250 ML IVPB SCH (09:26)
[2023-03-12] MEDS: FAMOTIDINE 20 MG/2 ML VIAL IV SCH (09:28)
[2023-03-12] MEDS: METOPROLOL TARTRATE 5 MG/5 ML VIAL IVP SCH ×2 (09:28→17:08)
[2023-03-12] MEDS: FUROSEMIDE 10 MG/ML 4 ML VIAL IV SCH (09:28)
[2023-03-12] MEDS: MORPHINE SULFATE 4 MG/ML SYRINGE IVP PRN ×2 (09:29→15:31)
[2023-03-12 09:59] LABS: Basophils % (A) 0 %; Eosinophils # (A) 0.2 k/uL (0-0.7); Eosinophils % (A) 1 %; HCT 24.1 % (39.0-53.0); HGB 7.4 gm/dL (13.0-17.5); Hypochromasia Marked; Lymphocytes # (A) 0.6 k/uL (1.0-4.8); Lymphocytes % (A) 4 %; MCH 30.2 pg (25.0-35.0); MCHC 30.6 g/dL (31.0-37.0); MCV 98.9 fL (80.0-100.0); Macrocytosis Slight; Mean Platelet Volume 12.8; Monocytes # (A) 0.6 k/uL (0-1.0); Monocytes % (A) 3 %; Neutrophils # (A) 14.9 k/uL (1.3-7.7); Neutrophils % (A) 91 %; Platelet Count 165 k/uL (150-450); RBC 2.43 m/uL (4.30-5.90); RDW 15.2 % (11.5-15.5); WBC 16.3 k/uL (3.8-10.6)
[2023-03-12] MEDS ORDERED: FUROSEMIDE 10 MG/ML 4 ML VIAL IV STA (10:14)
[2023-03-12 10:20] LABS: African American GFR (CKD) 21 (>60 ml/min/1.73 sqM); Anion Gap 15 mmol/L; Blood Urea Nitrogen 93 mg/dL (9-20); Calcium 9.2 mg/dL (8.4-10.2); Carbon Dioxide 25 mmol/L (22-30); Chloride 113 mmol/L (98-107); Glucose 143 mg/dL (74-99); Non-African American GFR(CKD) 18 (>60 ml/min/1.73 sqM); Potassium 3.4 mmol/L (3.5-5.1); Sodium 153 mmol/L (137-145)
[2023-03-12] MEDS: methylPREDNISolone SOD SUCCI 125 MG/2 ML VIAL IV SCH ×2 (10:25→17:20)
[2023-03-12 10:26] LABS: Target Cells Present
[2023-03-12] MEDS ORDERED: HEPARIN SODIUM 1,000 UN/ML (10ML VL) IV ONE (11:17)
[2023-03-12] MEDS ORDERED: HEPARIN SODIUM 1,000 UN/ML (10ML VL) IV PRN (11:17)
[2023-03-12] MEDS: ATORVASTATIN 40 MG TAB PO SCH (11:25)
[2023-03-12] MEDS: hydrALAZINE HCL 50 MG TAB PO SCH ×2 (11:25→16:32)
[2023-03-12] MEDS: HEPARIN SOD,PORK IN 0.45% NACL 25,000 UNIT in 0.45% NACL 1 250ML.BAG IV SCH (11:44)
[2023-03-12] MEDS: bisacodyL 10 MG SUPP RECTAL SCH (11:52)
[2023-03-12] MEDS: HYDROPHILIC CREAM 180 GM TUBE TOPICAL SCH (11:52)
[2023-03-12] MEDS: DEXTROSE 5%-0.45% NACL 1,000 ML IV SCH (11:53)
[2023-03-12] MEDS ORDERED: methylPREDNISolone SOD SUCCI 125 MG/2 ML VIAL IV SCH (12:00)
[2023-03-12 12:22] LABS: Glucose,Whole Blood 177 mg/dL (70-110)
--- NOTE | 2023-03-12 13:21 | P.PN ---
Subjective Progress Note Date: 03/12/23 Principal diagnosis: Hypoxemic respiratory failure. I am seeing this patient in new consultation today 03/08/2023 in the emergency room after he presented late last night from his rehab facility with complaints of shortness of breath and nonproductive cough. Patient is a 77-year-old white male with past medical history significant for hypertension, hyperlipidemia, diabetes mellitus type 2, chronic kidney disease, obesity, hypothyroidism, and prior back surgeries. Denies any history of pulmonary disease including COPD or asthma. Ex-smoker of over 30 years ago. Patient did have a recent hospital admission from February 13 through February 22 for falls and lower ext remity cellulitis. He was discharged to [facility], and was receiving IV Daptomycin through a right upper extremity PICC. Patient did return to the emergency room late last night via EMS for complaints of progressively worsening shortness of breath and nonproductive cough that started since his recent hospital discharge. He denies any fevers, chills, myalgias, chest pain. He does admit lower extremity swelling. His lower extremities are erythemic, but states that they're improved since initiating his IV antibiotics. Patient is currently sitting up in bed, on BiPAP with settings 12/6 and FiO2 of 60%. He appears fairly comfortable, and not in any acute respiratory distress. Respiratory rate is in the mid 20s and he is achieving tidal volumes around 600- 700. Chest x-ray on admission shows multifocal airspace opacities concerning for pneumonia. Patient has been started on empiric antibiotics. Currently afebrile. CBC shows leukocytosis with a WBC count of 15.1, hemoglobin 8, h ematocrit 25.1, platelets 194. BMP from admission shows a sodium 138, potassium 4.5, chloride 105, serum bicarb 20, BUN 66, creatinine 2.91, glucose 160. Lactic acid level was 1.1. Troponins are 0.149 and 0.155 respectively. NT proBNP 4460. Patient was given a one-time dose of Lasix 80 mg in the ER. He appears hemodynamically stable at this time. Patient will be monitored on the cardiac stepdown unit. Progress note dated 03/09/2023. 77-year-old male, who was seen in the emergency department yesterday. The patient was admitted with a diagnosis of hypoxemic respiratory failure. The adam gabriel has a history of hypertension, hyperlipidemia, type 2 diabetes, chronic kidney disease, obesity, and hypothyroidism. The patient N-terminal proBNP was 4460. The patient was placed on BiPAP, and continues on BiPAP. The settings include 12/6, and 80%. He's not receiving any IV fluids the patient will have a follow-up chest x-ray in the morning. The patient's BMP was elevated as was his pro-calcitonin level. The patient remains on Zithromax and Rocephin. White count is 18.3, hemoglobin 7.2, hematocrit 22.3, with a normal platelet count. Sodium 139, potassium 4.3, chlorides 108, CO2 21, BUN 70, and creatinine 2.76. Progress note dated 03/10/2023. This is a 77-year-old male, seen in consultation 2 days ago. He was diagnosed with hypoxemic respiratory failure, secondary to fluid overload. The patient N- terminal proBNP was 4460. The patient has a history of hypertension, hype rlipidemia, type 2 diabetes, chronic kidney disease, recently, and hypothyroidism. The patient remains on BiPAP, with settings of 12/6 and 80%. Clinically he feels much better. A chest x-ray was ordered for tomorrow. The patient continues on azithromycin and Rocephin as well. No new labs today other than a glucose of 160. Progress note dated 03/11/2023. 77-year-old male seen in consultation a few days ago. He came in with hypoxemic respiratory failure secondary to fluid overload. He had an elevated N-terminal proBNP. The patient is seen again in room 372. He remains on BiPAP, with s ettings of 12/6, at 70%. The patient's chest x-ray, dated March 11, is improved. Clinically, the patient feels much improved. Labs are reviewed. Glucose 158. Progress note dated 03/12/2023. 77-year-old male who was seen again in room 372. Yesterday, the patient was doing better, but today, he apparently feels much more short of breath. Currently, he is on BiPAP, with settings of 12/6, and 90%. Yesterday he was down to 60-70%. He will get Solu-Medrol 60 mg every 6 hours, and Lasix 40 mg IV push. In addition, we had some budesonide, and formoterol breathing treatments, twice a day. White count 16.3, hemoglobin 7.4, hematocrit 24.1, and platelet count was normal. Sodium 153, potassium 3.4, chlorides 113, CO2 25, BUN 93, and creatinine 3.16. Today's chest x-ray shows diffuse bilateral airspace disease, which may be on the basis of fluid overload, and/or pneumonia. Objective - Vital Signs Vital signs: Vital Signs Temp 98.0 F 03/12/23 07:57 Pulse 80 03/12/23 08:13 Resp 28 H 03/12/23 07:57 BP 169/72 03/12/23 07:57 Pulse Ox 93 L 03/12/23 07:57 FiO2 90 03/12/23 12:26 Intake & Output 03/11/23 03/12/23 03/12/23 18:59 06:59 18:59 Intake Total 250 Output Total 1100 501 Balance -850 -501 Weight 109.5 kg 109.5 kg 109.5 kg Intake: Intake, IV Titration 250 Amount Azithromycin 500 mg In 250 Sodium Chloride 0.9% 250 ml @ 250 mls/hr IVPB DAILY [facility] Rx#:[id number] Output: Urine 1100 500 Urine/Stool Mix 1 Other: Voiding Method External Catheter # Bowel Movements 1 - Exam Oriented 3. BiPAP mask in place. Improve respiratory status. No conversational dyspnea HEENT examination is grossly unremarkable. Neck supple. Full range of motion. No adenopathy thyromegaly or neck vein distention. Cardiovascular examination reveals regular rhythm rate. S1-S2 normal. No S3 or S4. No discernible murmur noted. Heart rate 80 bpm. Heart sounds are distant. Lungs reveal scattered rhonchi and crackles. Breath sounds equal. Saturations are 90 %. Breath sounds are equal bilaterally. No distinct wheezes noted. Abdomen soft bowel sounds are heard. No masses or tenderness. Extremities are intact. No cyanosis clubbing or edema. Skin is without rash or lesion. Neurologic examination is brief but nonfocal. - Labs CBC & Chem 7: 03/12/23 07:41 03/12/23 07:41 Labs: Abnormal Lab Results - Last 24 Hours (Table) 03/11/23 03/11/23 03/12/23 Range/Units 17:03 23:55 06:05 WBC (3.8-10.6) k/uL RBC (4.30-5.90) m/uL Hgb (13.0-17.5) gm/dL Hct (39.0-53.0) % MCHC (31.0-37.0) g/dL Neutrophils # (1.3-7.7) k/uL Lymphocytes # (1.0-4.8) k/uL D-Dimer (<0.60) mg/L FEU Sodium (137-145) mmol/L Potassium (3.5-5.1) mmol/L Chloride (98-107) mmol/L BUN (9-20) mg/dL Creatinine (0.66-1.25) mg/dL Glucose (74-99) mg/dL POC Glucose (mg/dL) 152 H 168 H 168 H (70-110) mg/dL 03/12/23 03/12/23 03/12/23 Range/Units 07:41 07:41 09:49 WBC 16.3 H (3.8-10.6) k/uL RBC 2.43 L (4.30-5.90) m/uL Hgb 7.4 L (13.0-17.5) gm/dL Hct 24.1 L (39.0-53.0) % MCHC 30.6 L (31.0-37.0) g/dL Neutrophils # 14.9 H (1.3-7.7) k/uL Lymphocytes # 0.6 L (1.0-4.8) k/uL D-Dimer >34.00 H (<0.60) mg/L FEU Sodium 153 H (137-145) mmol/L Potassium 3.4 L (3.5-5.1) mmol/L Chloride 113 H (98-107) mmol/L BUN 93 H (9-20) mg/dL Creatinine 3.16 H (0.66-1.25) mg/dL Glucose 143 H (74-99) mg/dL POC Glucose (mg/dL) (70-110) mg/dL 03/12/23 Range/Units 12:08 WBC (3.8-10.6) k/uL RBC (4.30-5.90) m/uL Hgb (13.0-17.5) gm/dL Hct (39.0-53.0) % MCHC (31.0-37.0) g/dL Neutrophils # (1.3-7.7) k/uL Lymphocytes # (1.0-4.8) k/uL D-Dimer (<0.60) mg/L FEU Sodium (137-145) mmol/L Potassium (3.5-5.1) mmol/L Chloride (98-107) mmol/L BUN (9-20) mg/dL Creatinine (0.66-1.25) mg/dL Glucose (74-99) mg/dL POC Glucose (mg/dL) 177 H (70-110) mg/dL Assessment and Plan Assessment: Acute hypoxemic respiratory failure, secondary to possible healthcare associated pneumonia, versus acute pulmonary edema. Bilateral lower extremity edema, and cellulitis. Elevated troponins, rule out non-ST segment elevation myocardial infarction. Anemia of chronic disease. Stage III chronic kidney disease. Type 2 diabetes mellitus. Benign essential hypertension. Dyslipidemia. Hypothyroidism. Benign prostatic hypertrophy. Obesity. Plan: Plan dated 03/09/2023. Currently, the patient's on BiPAP, with settings of 12/6, and 80%. Remains on Zithromax and Rocephin for possible pneumonia. Both the patient's BNP, and pro- calcitonin level were elevated. The patient is not receiving any IV fluids. Chest x-rays were ordered for the morning. Labs, x-rays, and medications are all reviewed. Prognosis is guarded. We will continue to follow the patient, and make recommendations along the way. Plan dated 03/10/2023. The patient clinically looks much improved. He appears much less short of breath. He continues on BiPAP. In addition, the patient continues on antibiotics for possible pneumonia. The patient's BMP was elevated as was the pro-calcitonin level. The patient is not receiving any IV fluids. The chest x- ray from today is reviewed. Labs, x-rays, and medications are reviewed. Prognosis is guarded. We will continue to follow the patient, and make recommendations along the way. Plan dated 03/11/2023. Clinically, the patient appears to be doing better. Also, radiographically, the patient is better. He feels much less short of breath. The patient's labs, x- rays, and medications are reviewed. We will continue to follow the patient make recommendations along the way. Initially, the BNP, and the pro-calcitonin level were elevated. The patient's prognosis remains guarded. We will continue to see the patient, and make recommendations where appropriate. Plan dated 03/12/2023. The patient is seen today in room 372. The patient's currently on BiPAP, with settings of 12/6, and 90%. The patient will get a dose of Lasix, 40 mg IV push. In addition, we place him on Solu-Medrol, 60 mg IV, every 6 hours. So, we had budesonide, and formoterol, twice a day. Labs, x-rays, and medications are reviewed. Because of the elevated d-dimer, and his renal dysfunction, CT angiogram could not be done. Instead, we'll start the patient on IV heparin, and do some Dopplers of the lower extremities. Additional recommendations and suggestions are forthcoming. Prognosis is guarded. Time with Patient: Less than 30
[2023-03-12 13:30] LABS: Basophils % (A) 0 %; Eosinophils # (A) 0.1 k/uL (0-0.7); Eosinophils % (A) 1 %; HCT 24.9 % (39.0-53.0); HGB 7.6 gm/dL (13.0-17.5); Hypochromasia Marked; Lymphocytes # (A) 0.4 k/uL (1.0-4.8); Lymphocytes % (A) 2 %; MCH 29.8 pg (25.0-35.0); MCHC 30.5 g/dL (31.0-37.0); MCV 97.7 fL (80.0-100.0); Monocytes # (A) 0.5 k/uL (0-1.0); Monocytes % (A) 3 %; Neutrophils # (A) 17.9 k/uL (1.3-7.7); Neutrophils % (A) 95 %; Platelet Count 180 k/uL (150-450); RBC 2.55 m/uL (4.30-5.90); RDW 15.2 % (11.5-15.5)
[2023-03-12 13:51] LABS: Target Cells Present
--- NOTE | 2023-03-12 13:52 | US ---
EXAMINATION TYPE: US venous doppler duplex LE BI DATE OF EXAM: 03/12/2023 1:22 PM COMPARISON: 02/19/2023 CLINICAL INDICATION: Male, 77 years old with history of elevated d-dimer; Elevated D-Dimer SIDE PERFORMED: Bilateral TECHNIQUE: The lower extremity deep venous system is examined utilizing real time linear array sonog delilah with graded compression, doppler sonography and color-flow sonography. VESSELS IMAGED: Common Femoral Vein Deep Femoral Vein Greater Saphenous Vein * Femoral Vein Popliteal Vein Small Saphenous Vein * Proximal Calf Veins (* superficial vessels) *Technical limitations, large amount of soft tissue edema and patient's limited mobility Right Leg: no evidence of DVT as visualized Left Leg: no evidence of DVT as visualized IMPRESSION: Grayscale, color doppler, spectral doppler imaging performed of the deep veins of the lo wer extremities. There is normal flow, compressibility, vascular waveforms. There is a large amount of subcutaneous\soft tissue edema.
[2023-03-12] MEDS ORDERED: LORazepam 2 MG/ML INJ IV PRN ×2 (14:13→15:19)
[2023-03-12 14:44] LABS: INR 1.2 (<1.2); Prothrombin Time 12.7 sec (9.0-12.0)
--- NOTE | 2023-03-12 15:29 | P.PN ---
Subjective Progress Note Date: 03/12/23 77 years old male with past medical history of Diabetes Mellitus, Hyperlipidemia, Hypertension, Osteoarthritis, cervical spine decompression and fusion surgery. PCP is Dr. Blount patient was sent from our with for shortness of breathwith hypoxia and saturating 81. 82% on 4 L oxygen via nasal cannula. Right upper extremity PICC line patient last time he was discharged on daptomycin every 48 hours 14 days.patient finished treatment and his lower extremity cellulitis is improving patient currently on BiPAP, with oxygen saturation 97%. Afebrile. Labs showed leukocytosis of 14,000, hemoglobin 7.5 creatinine is elevated at 2.8 which is at baseline of 2.2-3.0 Troponin is elevated at 0.15, 0.13.proBNP 4460. TSH is low at 0.09 Urine analysis is not suspicious for infection. chest x-ray: confluent bilateral Multifocal airspace opacities patient is a started on ceftriaxone, Zithromax IV Lasix Objective - Vital Signs Vital signs: Vital Signs Temp 98.0 F 03/12/23 07:57 Pulse 80 03/12/23 08:13 Resp 28 H 03/12/23 07:57 BP 169/72 03/12/23 07:57 Pulse Ox 93 L 03/12/23 07:57 FiO2 90 03/12/23 07:58 Intake & Output 03/11/23 03/12/23 03/12/23 18:59 06:59 18:59 Intake Total 250 Output Total 1100 501 Balance -850 -501 Weight 109.5 kg 109.5 kg Intake: Intake, IV Titration 250 Amount Azithromycin 500 mg In 250 Sodium Chloride 0.9% 250 ml @ 250 mls/hr IVPB DAILY [facility] Rx#:[id number] Output: Urine 1100 500 Urine/Stool Mix 1 Other: Voiding Method External Catheter # Bowel Movements 1 - Exam -GENERAL: The patient is alert and oriented x3, in mild respiratory distress, on BiPAP machine HEENT: Pupils are round and equally reacting to light. EOMI. No scleral icterus. No conjunctival pallor. Normocephalic, atraumatic. No pharyngeal erythema. No thyromegaly. CARDIOVASCULAR: S1 and S2 present. No murmurs, rubs, or gallops. -PULMONARY: Chest is clear to auscultation, no wheezing , decreased air entry in both sides with scattered crackles ABDOMEN: Soft, nontender, nondistended, normoactive bowel sounds. No palpable organomegaly. MUSCULOSKELETAL: No joint swelling or deformity. EXTREMITIES: No cyanosis, clubbing, or pedal edema. NEUROLOGICAL: Gross neurological examination did not reveal any focal deficits. SKIN: No rashes. no petechiae. - Labs CBC & Chem 7: 03/12/23 12:53 03/12/23 07:41 Labs: Abnormal Lab Results - Last 24 Hours (Table) 03/11/23 03/11/23 03/11/23 Range/Units 11:46 17:03 23:55 WBC (3.8-10.6) k/uL RBC (4.30-5.90) m/uL Hgb (13.0-17.5) gm/dL Hct (39.0-53.0) % MCHC (31.0-37.0) g/dL Sodium (137-145) mmol/L Potassium (3.5-5.1) mmol/L Chloride (98-107) mmol/L BUN (9-20) mg/dL Creatinine (0.66-1.25) mg/dL Glucose (74-99) mg/dL POC Glucose (mg/dL) 158 H 152 H 168 H (70-110) mg/dL 03/12/23 03/12/23 03/12/23 Range/Units 06:05 07:41 07:41 WBC 16.3 H (3.8-10.6) k/uL RBC 2.43 L (4.30-5.90) m/uL Hgb 7.4 L (13.0-17.5) gm/dL Hct 24.1 L (39.0-53.0) % MCHC 30.6 L (31.0-37.0) g/dL Sodium 153 H (137-145) mmol/L Potassium 3.4 L (3.5-5.1) mmol/L Chloride 113 H (98-107) mmol/L BUN 93 H (9-20) mg/dL Creatinine 3.16 H (0.66-1.25) mg/dL Glucose 143 H (74-99) mg/dL POC Glucose (mg/dL) 168 H (70-110) mg/dL Assessment and Plan Assessment: bilateral airspace opacities suspicious for bilateral pneumonia, Versus pulmonary edema bilateral leg edema with stasis dermatitis multifactorial also due to heart failure normochromic, normocytic anemia chronic kidney disease stage III Diabetes mellitus Hypertension Hyperlipidemia History of osteoarthritis Hypothyroidism with very low TSH upper extremity tremor on mirapex restless leg syndrom Plan: continue with antibiotic ceftriaxone and Zithromax continue with IV Lasix Change his oral medication to IV Follow-up Culture results Bronchodilator and pulmonary consult cardiology consult patient on levothyroxine at 175 g. In view of low TSH hold levothyroxine today and to start 150 g tomorrow and recheck thyroid function test in 1-2 months Labs and medication were reviewed.. Continue same treatment. Continue with symptomatic treatment. Resume home medication. Monitor lytes and vitals. DVT and GI prophylaxis. Further recommendations depends on the clinical course of the patient DVT prophylaxis: Subcutaneous heparin GI Prophylaxis: Pepcid Prognosis is guarded
[2023-03-12 15:51] LABS: Glucose,Whole Blood 213 mg/dL (70-110)
[2023-03-12] MEDS: ASPIRIN 300 MG SUPP RECTAL SCH (16:31)
[2023-03-12 17:09] LABS: Glucose,Whole Blood 217 mg/dL (70-110)
[2023-03-12] MEDS: LORazepam 2 MG/ML INJ IV PRN (18:34)
[2023-03-12] MEDS: FORMOTEROL FUMARATE 20 MCG/2 ML NEBU INHALATION SCH (21:31)
[2023-03-12] MEDS: BUDESONIDE 1 MG/2 ML NEBU INHALATION SCH (21:31)
[2023-03-13] MEDS: DEXTROSE 5%-0.45% NACL 1,000 ML IV SCH ×2 (00:22→13:59)
[2023-03-13] MEDS: methylPREDNISolone SOD SUCCI 125 MG/2 ML VIAL IV SCH ×5 (00:22→23:49)
[2023-03-13 00:27] LABS: Glucose,Whole Blood 221 mg/dL (70-110)
[2023-03-13] MEDS: METOPROLOL TARTRATE 5 MG/5 ML VIAL IVP SCH ×4 (00:29→23:49)
[2023-03-13] MEDS: HYDROmorphone 1 MG/ML 1 ML SYRINGE IVP PRN ×5 (00:33→18:47)
[2023-03-13] MEDS: INSULIN ASPART (NovoLOG) 100 UNIT/ML VIAL SQ SCH ×5 (00:33→23:50)
[2023-03-13] MEDS: MORPHINE SULFATE 4 MG/ML SYRINGE IVP PRN ×2 (02:20→20:48)
[2023-03-13] MEDS: HEPARIN SOD,PORK IN 0.45% NACL 25,000 UNIT in 0.45% NACL 1 250ML.BAG IV SCH ×2 (02:20→14:09)
[2023-03-13 06:05] LABS: Glucose,Whole Blood 248 mg/dL (70-110)
[2023-03-13 06:55] LABS: ABG HCO3 23 mmol/L (21-25); ABG Oxygen Saturation 97.9 % (94-97); ABG PCO2 41 mmHg (35-45); ABG PH 7.36 (7.35-7.45); ABG PO2 103 mmHg (83-108); ABG TCO2 25 mmol/L (19-24); Allen Test Performed? Yes
[2023-03-13 07:14] LABS: Basophils % (A) 0 %; Eosinophils # (A) 0.1 k/uL (0-0.7); Eosinophils % (A) 0 %; HCT 22.5 % (39.0-53.0); Hypochromasia Marked; Lymphocytes # (A) 0.5 k/uL (1.0-4.8); Lymphocytes % (A) 3 %; MCH 30.6 pg (25.0-35.0); MCHC 31.2 g/dL (31.0-37.0); MCV 98.4 fL (80.0-100.0); Macrocytosis Slight; Mean Platelet Volume 12.3; Monocytes # (A) 0.5 k/uL (0-1.0); Monocytes % (A) 3 %; Neutrophils # (A) 15.7 k/uL (1.3-7.7); Neutrophils % (A) 93 %; Platelet Count 182 k/uL (150-450); RBC 2.28 m/uL (4.30-5.90); RDW 15.5 % (11.5-15.5); WBC 16.8 k/uL (3.8-10.6)
[2023-03-13] MEDS: BUDESONIDE 1 MG/2 ML NEBU INHALATION SCH ×2 (08:24→21:45)
[2023-03-13] MEDS: IPRATROPIUM-ALBUTEROL 3 ML NEB INHALATION PRN ×3 (08:24→21:45)
[2023-03-13] MEDS: FORMOTEROL FUMARATE 20 MCG/2 ML NEBU INHALATION SCH ×2 (08:24→21:45)
[2023-03-13] MEDS: ALBUTEROL NEBULIZED 2.5 MG/3 ML INHALATION SCH ×2 (08:25→11:18)
[2023-03-13] MEDS: LEVOTHYROXINE IVP 100 MCG/5 ML VIAL IV SCH (08:58)
[2023-03-13] MEDS: hydrALAZINE HCL 50 MG TAB PO SCH ×2 (08:58→16:35)
[2023-03-13] MEDS: ATORVASTATIN 40 MG TAB PO SCH (08:58)
[2023-03-13] MEDS: FAMOTIDINE 20 MG/2 ML VIAL IV SCH (09:07)
[2023-03-13] MEDS: FUROSEMIDE 10 MG/ML 4 ML VIAL IV SCH ×2 (09:11→19:38)
[2023-03-13] MEDS: AZITHROMYCIN 500 MG in SODIUM CHLORIDE 0.9% 250 ML IVPB SCH (09:17)
[2023-03-13] MEDS: HYDROPHILIC CREAM 180 GM TUBE TOPICAL SCH (09:21)
[2023-03-13 10:48] LABS: Glucose,Whole Blood 278 mg/dL (70-110)
--- NOTE | 2023-03-13 11:16 | XR ---
EXAMINATION TYPE: XR chest 1V portable DATE OF EXAM: 03/13/2023 COMPARISON: 03/12/2023 HISTORY: Shortness of breath TECHNIQUE: Single frontal view of the chest is obtained. FINDINGS: There are diffuse fluffy small airspace opacity throughout both lungs consistent with diffuse pneumon ia or edema. It is essentially unchanged compared to the prior study. The osseous structures are intact. The cardiac silhouette is normal for the technique. IMPRESSION: Marked acute cardiopulmonary disease as described above with no significant interval victor manuel nge.
[2023-03-13 12:03] LABS: Glucose,Whole Blood 306 mg/dL (70-110)
[2023-03-13] MEDS: ASPIRIN 300 MG SUPP RECTAL SCH (12:40)
[2023-03-13 12:50] LABS: African American GFR (CKD) 21 (>60 ml/min/1.73 sqM); Anion Gap 15 mmol/L; Calcium 9.1 mg/dL (8.4-10.2); Carbon Dioxide 23 mmol/L (22-30); Chloride 116 mmol/L (98-107); Glucose 240 mg/dL (74-99); Non-African American GFR(CKD) 18 (>60 ml/min/1.73 sqM); Potassium 3.1 mmol/L (3.5-5.1); Sodium 154 mmol/L (137-145)
--- NOTE | 2023-03-13 13:11 | P.PN ---
Subjective Progress Note Date: 03/13/23 The patient is a 77-year-old male who is currently admitted to the hospital with pneumonia and acute hypoxic respiratory failure. Cardiology was consulted for heart failure with preserved ejection fraction and history of coronary artery disease. He follows in the office with Dr. Wheeler. At the time of my examination an A-team was notified for the patient being unresponsive. The patient had a bradycardic episode down into the 30s, followed by A. fib with RVR. Telemetry strips were reviewed with no evidence of heart block. Sinus bradycardia at 37 bpm followed by A. fib with heart rates in the 140s. GENERAL: Ill-appearing, well-nourished and in mild respiratory distress. NECK: Supple without JVD or thyromegaly. LUNGS: Breath sounds are coarse to auscultation bilaterally. Respiration equal and unlabored. Rhonchi throughout. HEART: Irregular rate and rhythm without murmurs, rubs or gallops. S1 and S2 heard. Notably tachycardic EXTREMITIES: Normal range of motion, +1 edema. Hyperpigmentation and discoloration due to venous insufficiency. No clubbing or cyanosis. Peripheral pulses intact and strong. TELEMETRY: A. fib with heart rates in the 120s IMPRESSION: Vagaly mediated A. fib with RVR Paroxysmal atrial fibrillation Acute hypoxic respiratory failure. Pneumonia Chronic heart failure with preserved ejection fraction Chronic kidney disease Coronary artery disease Lower extremity cellulitis PLAN: Continue IV anticoagulation and metoprolol IV push until parental access is achieved Aggressive pulmonary hygiene Further recommendations to be based on clinical course I am dictating on behalf of Dr Herbie Melchor's history/physical and assessment/plan. Objective - Vital Signs Vital signs: Vital Signs Temp 97.2 F L 03/13/23 12:00 Pulse 118 H 03/13/23 12:00 Resp 36 H 03/13/23 12:00 BP 135/73 03/13/23 12:00 Pulse Ox 93 L 03/13/23 12:00 FiO2 100 03/13/23 11:18 Intake & Output 03/12/23 03/13/23 03/13/23 18:59 06:59 18:59 Intake Total 281.626 Output Total 9123 941 5492 Balance -1200 -618.374 -1100 Weight 109.5 kg 105.5 kg Intake: IV 10 Invasive Line 3 10 Intake, IV Titration 271.626 Amount Heparin Sod,Pork in 0.45% 271.626 NaCl 25,000 unit In 0.45 % NaCl 1 250ml.bag @ 18 UNITS/KG/HR 19.71 mls/hr IV .[id number] [facility] Rx#: [id number] Output: Urine 5048 [id number] [id number] Other: Voiding Method External Catheter External Catheter External Catheter - Labs CBC & Chem 7: 03/13/23 06:33 03/12/23 07:41 Labs: Abnormal Lab Results - Last 24 Hours (Table) 03/12/23 03/12/23 03/12/23 Range/Units 12:53 12:53 12:53 WBC 19.0 H (3.8-10.6) k/uL RBC 2.55 L (4.30-5.90) m/uL Hgb 7.6 L (13.0-17.5) gm/dL Hct 24.9 L (39.0-53.0) % MCHC 30.5 L (31.0-37.0) g/dL Neutrophils # 17.9 H (1.3-7.7) k/uL Lymphocytes # 0.4 L (1.0-4.8) k/uL PT 12.7 H (9.0-12.0) sec INR 1.2 H (<1.2) APTT >200.0 H* (22.0-30.0) sec ABG Total CO2 (19-24) mmol/L ABG O2 Saturation (94-97) % POC Glucose (mg/dL) (70-110) mg/dL TSH 0.123 L (0.465-4.680) mIU/L 03/12/23 03/12/23 03/12/23 Range/Units 15:49 17:01 18:34 WBC (3.8-10.6) k/uL RBC (4.30-5.90) m/uL Hgb (13.0-17.5) gm/dL Hct (39.0-53.0) % MCHC (31.0-37.0) g/dL Neutrophils # (1.3-7.7) k/uL Lymphocytes # (1.0-4.8) k/uL PT (9.0-12.0) sec INR (<1.2) APTT 118.2 H* (22.0-30.0) sec ABG Total CO2 (19-24) mmol/L ABG O2 Saturation (94-97) % POC Glucose (mg/dL) 213 H 217 H (70-110) mg/dL TSH (0.465-4.680) mIU/L 03/13/23 03/13/23 03/13/23 Range/Units 00:25 06:02 06:33 WBC 16.8 H (3.8-10.6) k/uL RBC 2.28 L (4.30-5.90) m/uL Hgb 7.0 L (13.0-17.5) gm/dL Hct 22.5 L (39.0-53.0) % MCHC (31.0-37.0) g/dL Neutrophils # 15.7 H (1.3-7.7) k/uL Lymphocytes # 0.5 L (1.0-4.8) k/uL PT (9.0-12.0) sec INR (<1.2) APTT (22.0-30.0) sec ABG Total CO2 (19-24) mmol/L ABG O2 Saturation (94-97) % POC Glucose (mg/dL) 221 H 248 H (70-110) mg/dL TSH (0.465-4.680) mIU/L 03/13/23 03/13/23 03/13/23 Range/Units 06:33 06:53 10:44 WBC (3.8-10.6) k/uL RBC (4.30-5.90) m/uL Hgb (13.0-17.5) gm/dL Hct (39.0-53.0) % MCHC (31.0-37.0) g/dL Neutrophils # (1.3-7.7) k/uL Lymphocytes # (1.0-4.8) k/uL PT (9.0-12.0) sec INR (<1.2) APTT 51.7 H (22.0-30.0) sec ABG Total CO2 25 H (19-24) mmol/L ABG O2 Saturation 97.9 H (94-97) % POC Glucose (mg/dL) 278 H (70-110) mg/dL TSH (0.465-4.680) mIU/L 03/13/23 Range/Units 12:01 WBC (3.8-10.6) k/uL RBC (4.30-5.90) m/uL Hgb (13.0-17.5) gm/dL Hct (39.0-53.0) % MCHC (31.0-37.0) g/dL Neutrophils # (1.3-7.7) k/uL Lymphocytes # (1.0-4.8) k/uL PT (9.0-12.0) sec INR (<1.2) APTT (22.0-30.0) sec ABG Total CO2 (19-24) mmol/L ABG O2 Saturation (94-97) % POC Glucose (mg/dL) 306 H (70-110) mg/dL TSH (0.465-4.680) mIU/L
[2023-03-13 13:12] LABS: Blood Urea Nitrogen 104 mg/dL (9-20)
--- NOTE | 2023-03-13 13:47 | P.PN ---
Subjective Progress Note Date: 03/13/23 Principal diagnosis: Hypoxemic respiratory failure. I am seeing this patient in new consultation today 03/08/2023 in the emergency room after he presented late last night from his rehab facility with complaints of shortness of breath and nonproductive cough. Patient is a 77-year-old white male with past medical history significant for hypertension, hyperlipidemia, diabetes mellitus type 2, chronic kidney disease, obesity, hypothyroidism, and prior back surgeries. Denies any history of pulmonary disease including COPD or asthma. Ex-smoker of over 30 years ago. Patient did have a recent hospital admission from February 13 through February 22 for falls and lower ext remity cellulitis. He was discharged to [facility], and was receiving IV Daptomycin through a right upper extremity PICC. Patient did return to the emergency room late last night via EMS for complaints of progressively worsening shortness of breath and nonproductive cough that started since his recent hospital discharge. He denies any fevers, chills, myalgias, chest pain. He does admit lower extremity swelling. His lower extremities are erythemic, but states that they're improved since initiating his IV antibiotics. Patient is currently sitting up in bed, on BiPAP with settings 12/6 and FiO2 of 60%. He appears fairly comfortable, and not in any acute respiratory distress. Respiratory rate is in the mid 20s and he is achieving tidal volumes around 600- 700. Chest x-ray on admission shows multifocal airspace opacities concerning for pneumonia. Patient has been started on empiric antibiotics. Currently afebrile. CBC shows leukocytosis with a WBC count of 15.1, hemoglobin 8, h ematocrit 25.1, platelets 194. BMP from admission shows a sodium 138, potassium 4.5, chloride 105, serum bicarb 20, BUN 66, creatinine 2.91, glucose 160. Lactic acid level was 1.1. Troponins are 0.149 and 0.155 respectively. NT proBNP 4460. Patient was given a one-time dose of Lasix 80 mg in the ER. He appears hemodynamically stable at this time. Patient will be monitored on the cardiac stepdown unit. Progress note dated 03/09/2023. 77-year-old male, who was seen in the emergency department yesterday. The patient was admitted with a diagnosis of hypoxemic respiratory failure. The adam gabriel has a history of hypertension, hyperlipidemia, type 2 diabetes, chronic kidney disease, obesity, and hypothyroidism. The patient N-terminal proBNP was 4460. The patient was placed on BiPAP, and continues on BiPAP. The settings include 12/6, and 80%. He's not receiving any IV fluids the patient will have a follow-up chest x-ray in the morning. The patient's BMP was elevated as was his pro-calcitonin level. The patient remains on Zithromax and Rocephin. White count is 18.3, hemoglobin 7.2, hematocrit 22.3, with a normal platelet count. Sodium 139, potassium 4.3, chlorides 108, CO2 21, BUN 70, and creatinine 2.76. Progress note dated 03/10/2023. This is a 77-year-old male, seen in consultation 2 days ago. He was diagnosed with hypoxemic respiratory failure, secondary to fluid overload. The patient N- terminal proBNP was 4460. The patient has a history of hypertension, hype rlipidemia, type 2 diabetes, chronic kidney disease, recently, and hypothyroidism. The patient remains on BiPAP, with settings of 12/6 and 80%. Clinically he feels much better. A chest x-ray was ordered for tomorrow. The patient continues on azithromycin and Rocephin as well. No new labs today other than a glucose of 160. Progress note dated 03/11/2023. 77-year-old male seen in consultation a few days ago. He came in with hypoxemic respiratory failure secondary to fluid overload. He had an elevated N-terminal proBNP. The patient is seen again in room 372. He remains on BiPAP, with s ettings of 12/6, at 70%. The patient's chest x-ray, dated March 11, is improved. Clinically, the patient feels much improved. Labs are reviewed. Glucose 158. Progress note dated 03/12/2023. 77-year-old male who was seen again in room 372. Yesterday, the patient was doing better, but today, he apparently feels much more short of breath. Currently, he is on BiPAP, with settings of 12/6, and 90%. Yesterday he was down to 60-70%. He will get Solu-Medrol 60 mg every 6 hours, and Lasix 40 mg IV push. In addition, we had some budesonide, and formoterol breathing treatments, twice a day. White count 16.3, hemoglobin 7.4, hematocrit 24.1, and platelet count was normal. Sodium 153, potassium 3.4, chlorides 113, CO2 25, BUN 93, and creatinine 3.16. Today's chest x-ray shows diffuse bilateral airspace disease, which may be on the basis of fluid overload, and/or pneumonia. Progress note dated 03/13/2023. 77-year-old male, seen today in room 372. Overnight, the patient had worsening respiratory status, and, a blood gas was done. The PaO2 was 103, the pCO2 was 41, and the pH was 7.36. This was on BiPAP, 100%, with an IPAP of 16, EPAP of 8. The patient continues on D5.45 is 75 mL an hour. Heparin was started empirically, for possible pulmonary embolism. A rapid response was called on the patient this morning. He apparently had received some narcotic, and was very sleepy and lethargic. Currently labs are good a white count 16.8, hemoglobin 7, hematocrit 22.5, and a platelet count of 182,000. Sodium was 154, potassium 3.1, chlorides 116, CO2 23, BUN 104, and creatinine 3.15. Glucose was 240. Calcium 9.1. Chest x-ray shows diffuse bilateral infiltrates, which could relate interstitial edema, or diffuse pneumonia, or acute respiratory distress syndrome. Bilateral lower extremity venous Dopplers were negative. Objective - Vital Signs Vital signs: Vital Signs Temp 97.2 F L 03/13/23 12:00 Pulse 118 H 03/13/23 12:00 Resp 36 H 03/13/23 12:00 BP 135/73 03/13/23 12:00 Pulse Ox 93 L 03/13/23 12:00 FiO2 100 03/13/23 11:18 Intake & Output 03/12/23 03/13/23 03/13/23 18:59 06:59 18:59 Intake Total 281.626 Output Total 3009 883 7581 Balance -1200 -618.374 -1100 Weight 109.5 kg 105.5 kg Intake: IV 10 Invasive Line 3 10 Intake, IV Titration 271.626 Amount Heparin Sod,Pork in 0.45% 271.626 NaCl 25,000 unit In 0.45 % NaCl 1 250ml.bag @ 18 UNITS/KG/HR 19.71 mls/hr IV .[id number] [facility] Rx#: [id number] Output: Urine [id number] Other: Voiding Method External Catheter External Catheter External Catheter - Exam BiPAP mask in place. Lethargic, but does arouse. HEENT examination is grossly unremarkable. Neck supple. Full range of motion. No adenopathy thyromegaly or neck vein distention. Cardiovascular examination reveals regular rhythm rate. S1-S2 normal. No S3 or S4. No discernible murmur noted. Heart rate 122 bpm. Heart sounds are distant. Lungs reveal scattered rhonchi and crackles. Breath sounds equal. Saturations are 93 %. Breath sounds are equal bilaterally. No distinct wheezes noted. Abdomen soft bowel sounds are heard. No masses or tenderness. Extremities are intact. No cyanosis clubbing or edema. Skin is without rash or lesion. Neurologic examination is brief but nonfocal. - Labs CBC & Chem 7: 03/13/23 06:33 03/13/23 06:33 Labs: Abnormal Lab Results - Last 24 Hours (Table) 03/12/23 03/12/23 03/12/23 Range/Units 12:53 12:53 12:53 WBC (3.8-10.6) k/uL RBC (4.30-5.90) m/uL Hgb (13.0-17.5) gm/dL Hct (39.0-53.0) % Neutrophils # 17.9 H (1.3-7.7) k/uL Lymphocytes # 0.4 L (1.0-4.8) k/uL PT 12.7 H (9.0-12.0) sec INR 1.2 H (<1.2) APTT >200.0 H* (22.0-30.0) sec ABG Total CO2 (19-24) mmol/L ABG O2 Saturation (94-97) % Sodium (137-145) mmol/L Potassium (3.5-5.1) mmol/L Chloride (98-107) mmol/L BUN (9-20) mg/dL Creatinine (0.66-1.25) mg/dL Glucose (74-99) mg/dL POC Glucose (mg/dL) (70-110) mg/dL TSH 0.123 L (0.465-4.680) mIU/L 03/12/23 03/12/23 03/12/23 Range/Units 15:49 17:01 18:34 WBC (3.8-10.6) k/uL RBC (4.30-5.90) m/uL Hgb (13.0-17.5) gm/dL Hct (39.0-53.0) % Neutrophils # (1.3-7.7) k/uL Lymphocytes # (1.0-4.8) k/uL PT (9.0-12.0) sec INR (<1.2) APTT 118.2 H* (22.0-30.0) sec ABG Total CO2 (19-24) mmol/L ABG O2 Saturation (94-97) % Sodium (137-145) mmol/L Potassium (3.5-5.1) mmol/L Chloride (98-107) mmol/L BUN (9-20) mg/dL Creatinine (0.66-1.25) mg/dL Glucose (74-99) mg/dL POC Glucose (mg/dL) 213 H 217 H (70-110) mg/dL TSH (0.465-4.680) mIU/L 03/13/23 03/13/23 03/13/23 Range/Units 00:25 06:02 06:33 WBC 16.8 H (3.8-10.6) k/uL RBC 2.28 L (4.30-5.90) m/uL Hgb 7.0 L (13.0-17.5) gm/dL Hct 22.5 L (39.0-53.0) % Neutrophils # 15.7 H (1.3-7.7) k/uL Lymphocytes # 0.5 L (1.0-4.8) k/uL PT (9.0-12.0) sec INR (<1.2) APTT (22.0-30.0) sec ABG Total CO2 (19-24) mmol/L ABG O2 Saturation (94-97) % Sodium (137-145) mmol/L Potassium (3.5-5.1) mmol/L Chloride (98-107) mmol/L BUN (9-20) mg/dL Creatinine (0.66-1.25) mg/dL Glucose (74-99) mg/dL POC Glucose (mg/dL) 221 H 248 H (70-110) mg/dL TSH (0.465-4.680) mIU/L 03/13/23 03/13/23 03/13/23 Range/Units 06:33 06:33 06:53 WBC (3.8-10.6) k/uL RBC (4.30-5.90) m/uL Hgb (13.0-17.5) gm/dL Hct (39.0-53.0) % Neutrophils # (1.3-7.7) k/uL Lymphocytes # (1.0-4.8) k/uL PT (9.0-12.0) sec INR (<1.2) APTT 51.7 H (22.0-30.0) sec ABG Total CO2 25 H (19-24) mmol/L ABG O2 Saturation 97.9 H (94-97) % Sodium 154 H (137-145) mmol/L Potassium 3.1 L (3.5-5.1) mmol/L Chloride 116 H (98-107) mmol/L BUN 104 H* (9-20) mg/dL Creatinine 3.15 H (0.66-1.25) mg/dL Glucose 240 H (74-99) mg/dL POC Glucose (mg/dL) (70-110) mg/dL TSH (0.465-4.680) mIU/L 03/13/23 03/13/23 Range/Units 10:44 12:01 WBC (3.8-10.6) k/uL RBC (4.30-5.90) m/uL Hgb (13.0-17.5) gm/dL Hct (39.0-53.0) % Neutrophils # (1.3-7.7) k/uL Lymphocytes # (1.0-4.8) k/uL PT (9.0-12.0) sec INR (<1.2) APTT (22.0-30.0) sec ABG Total CO2 (19-24) mmol/L ABG O2 Saturation (94-97) % Sodium (137-145) mmol/L Potassium (3.5-5.1) mmol/L Chloride (98-107) mmol/L BUN (9-20) mg/dL Creatinine (0.66-1.25) mg/dL Glucose (74-99) mg/dL POC Glucose (mg/dL) 278 H 306 H (70-110) mg/dL TSH (0.465-4.680) mIU/L Assessment and Plan Assessment: Acute hypoxemic respiratory failure, secondary to possible healthcare associated pneumonia, versus acute pulmonary edema, versus acute respiratory distress syndrome. Bilateral lower extremity edema, and cellulitis. Elevated troponins, rule out non-ST segment elevation myocardial infarction. Anemia of chronic disease. Stage III chronic kidney disease. Type 2 diabetes mellitus. Benign essential hypertension. Dyslipidemia. Hypothyroidism. Benign prostatic hypertrophy. Obesity. Plan: Plan dated 03/09/2023. Currently, the patient's on BiPAP, with settings of 12/6, and 80%. Remains on Z ithromax and Rocephin for possible pneumonia. Both the patient's BNP, and pro- calcitonin level were elevated. The patient is not receiving any IV fluids. Chest x-rays were ordered for the morning. Labs, x-rays, and medications are all reviewed. Prognosis is guarded. We will continue to follow the patient, and make recommendations along the way. Plan dated 03/10/2023. The patient clinically looks much improved. He appears much less short of breath. He continues on BiPAP. In addition, the patient continues on antibiotics for possible pneumonia. The patient's BMP was elevated as was the pro-calcitonin level. The patient is not receiving any IV fluids. The chest x- ray from today is reviewed. Labs, x-rays, and medications are reviewed. Prognosis is guarded. We will continue to follow the patient, and make recommendations along the way. Plan dated 03/11/2023. Clinically, the patient appears to be doing better. Also, radiographically, the patient is better. He feels much less short of breath. The patient's labs, x- rays, and medications are reviewed. We will continue to follow the patient make recommendations along the way. Initially, the BNP, and the pro-calcitonin level were elevated. The patient's prognosis remains guarded. We will continue to see the patient, and make recommendations where appropriate. Plan dated 03/12/2023. The patient is seen today in room 372. The patient's currently on BiPAP, with settings of 12/6, and 90%. The patient will get a dose of Lasix, 40 mg IV push. In addition, we place him on Solu-Medrol, 60 mg IV, every 6 hours. So, we had budesonide, and formoterol, twice a day. Labs, x-rays, and medications are reviewed. Because of the elevated d-dimer, and his renal dysfunction, CT angiogram could not be done. Instead, we'll start the patient on IV heparin, and do some Dopplers of the lower extremities. Additional recommendations and suggestions are forthcoming. Prognosis is guarded. Plan dated 03/13/2023. The patient was seen in room 372. Actually, a rapid response was called on this patient. A blood gas was done, and is reasonably stable. The patient has become quite hypernatremic, and his fluids will need to be adjusted accordingly. We'll also make sure that Lasix is discontinued. His chest x-rays reviewed. Dopplers of the lower extremities were negative. He was placed on IV heparin and apparently. Additional recommendations and suggestions are forthcoming. Prognosis is guarded. He may end up in the intensive care unit, and may even end up on the mechanical ventilator. Time with Patient: Less than 30
[2023-03-13] MEDS ORDERED: DEXTROSE 5% IN WATER 1,000 ML IV ONE ×2 (13:48→16:22)
[2023-03-13] MEDS ORDERED: POTASSIUM CHLORIDE 20 MEQ in WATER FOR INJECTION 1 100ML.BAG IVPB STA (13:51)
--- NOTE | 2023-03-13 16:24 | P.NPCON ---
History of Present Illness - Reason for Consult Consult date: 03/13/23 acute renal failure - Chief Complaint Shortness of breath - History of Present Illness Admitted to the hospital with the above complaints. Recently discharged from the hospital, history of chronic kidney disease stage IV with a baseline creatinine around 2.0-2.5 MG per DL. On admission serum creatinine was 2.9 MG per DL, 3.16 MG per DL today. 4 volume overload he was treated with Lasix, which was stopped yesterday. Urine output of 2.1 L. No documented hypotensive episodes. Currently on BiPAP. Chest x-ray concerning for pneumonia. Review of Systems Constitutional: Reports as per HPI Past Medical History Past Medical History: Cancer, Diabetes Mellitus, Hyperlipidemia, Hypertension, Osteoarthritis (OA), Prostate Disorder, Renal Disease, Thyroid Disorder Additional Past Medical History / Comment(s): Falls at home 02/13/23. skin cancer, neuropathy , restless legs History of Any Multi-Drug Resistant Organisms: None Reported Past Surgical History: Orthopedic Surgery Additional Past Surgical History / Comment(s): sinus sx. cancer removed lt ear. colonoscopy , 07-07-17 anterior cervical decompression/discectomy/fusion c3-4, c4-5 Past Anesthesia/Blood Transfusion Reactions: No Reported Reaction Past Psychological History: Anxiety, Depression Smoking Status: Former smoker Past Alcohol Use History: None Reported Past Drug Use History: None Reported - Past Family History Father Additional Family Medical History / Comment(s): aortic aneurysm Mother Family Medical History: Cancer Additional Family Medical History / Comment(s): pancreas cancer Medications and Allergies Home Medications Medication Instructions Recorded Confirmed Type Finasteride [Proscar] 5 mg PO DAILY@0800 05/17/17 03/08/23 History allopurinoL [Zyloprim] 300 mg PO HS 05/17/17 03/08/23 History Pramipexole [Mirapex] 1 mg PO Q8HR@0600,1400,2200 02/17/21 03/08/23 History Sertraline [Zoloft] 50 mg PO BID@0800,2100 02/17/21 03/08/23 History Aspirin 81 mg PO DAILY@1200 07/09/21 03/08/23 History Cholecalciferol [Vitamin D3 (25 25 mcg PO DAILY@1200 02/02/22 03/08/23 History Mcg = 1000 Iu)] amLODIPine [Norvasc] 5 mg PO BID@0800,1700 02/02/22 03/08/23 History hydrALAZINE HCL [Apresoline] 100 mg PO BID@0800,1700 02/02/22 03/08/23 History Famotidine [Pepcid] 20 mg PO DAILY@0600 02/13/23 03/08/23 History Ferrous Sulfate [Iron (65 MG 325 mg PO DAILY@1200 02/13/23 03/08/23 History Elemental)] Levothyroxine Sodium [Synthroid] 175 mcg PO DAILY@0600 02/13/23 03/08/23 History Tamsulosin HCl [Flomax] 0.4 mg PO HS 02/13/23 03/08/23 History carvediloL [Coreg] 12.5 mg PO BID@0800,1700 02/13/23 03/08/23 History DAPTOmycin [Cubicin] 350 mg IVPB Q48H 14 Days #7 each 02/22/23 03/08/23 Rx HYDROcodone/APAP 10-325MG [[place] 1 tab PO TID PRN #6 tab 02/22/23 03/08/23 Rx 10-325] Acetaminophen [Tylenol] 650 mg PO Q4H PRN 03/08/23 03/08/23 History Darbepoetin Amrit [Aranesp] 40 mcg SQ FR@1200 03/08/23 03/08/23 History Heparin Sodium,Porcine (1 ml) 5,000 unit SQ Q8HR@0600,1400,2200 03/08/23 03/08/23 History [Heparin Sodium] INSULIN ASPART (NovoLOG) [NovoLOG See Protocol SQ ACHS 03/08/23 03/08/23 History (formulary)] Ipratropium-Albuterol Nebulize 3 ml INHALATION RT-Q6H PRN 03/08/23 03/08/23 History [Duoneb 0.5 mg-3 mg/3 ml Soln] Magnesium Hydroxide [Milk of 7,200 mg PO Q2D PRN 03/08/23 03/08/23 History Magnesia Concentrate] Na Phos,M-B/Na Phos,Di-Ba [Fleet 133 ml RECTAL DAILY PRN 03/08/23 03/08/23 History Adult] Nystatin 100,000 Unit/gm Powd 1 applic TOPICAL BID 03/08/23 03/08/23 History [Mycostatin Powder] Pregabalin [Lyrica] 150 mg PO Q12HR@0800,2100 03/08/23 03/08/23 History SILVER sulfADIAZINE Cream 1 applic TOPICAL DAILY 03/08/23 03/08/23 History [Silvadene 1% Cream] Sennosides [Senokot] 8.6 mg PO DAILY@0800 03/08/23 03/08/23 History Sodium Bicarbonate Tab 650 mg PO BID@0800,1700 03/08/23 03/08/23 History bisacodyL [Dulcolax] 10 mg RECTAL DAILY PRN 03/08/23 03/08/23 History Allergies Allergy/AdvReac Type Severity Reaction Status Date / Time enalaprilat [From Vasotec] AdvReac felt weak, Verified 03/08/23 08:05 couldn't talk erythromycin base AdvReac Nausea & Verified 03/08/23 08:05 [From Erythrocin] Vomiting Physical Exam Vitals: Vital Signs Temp Pulse Pulse Pulse Resp BP Pulse Ox 03/13/23 15:33 104 H 03/13/23 15:20 92 03/13/23 12:00 97.2 F L 118 H 36 H 135/73 93 L 03/13/23 11:30 122 H 03/13/23 11:18 133 H 03/13/23 10:51 03/13/23 09:00 97.9 F 77 24 174/72 95 03/13/23 08:45 88 03/13/23 08:35 88 03/13/23 08:25 84 03/13/23 06:48 21 100 03/13/23 06:18 03/13/23 06:00 29 H 87 L 03/13/23 04:50 03/13/23 03:44 97.9 F 78 26 H 146/61 90 L 03/13/23 00:46 03/13/23 00:00 98.9 F 83 27 H 180/76 94 L 03/12/23 21:55 92 03/12/23 21:33 120 H 03/12/23 20:00 99.2 F 118 H 34 H 156/79 93 L 03/12/23 17:10 92 03/12/23 17:00 80 FiO2 03/13/23 15:33 03/13/23 15:20 100 03/13/23 12:00 03/13/23 11:30 03/13/23 11:18 100 03/13/23 10:51 80 03/13/23 09:00 100 03/13/23 08:45 03/13/23 08:35 03/13/23 08:25 100 03/13/23 06:48 100 03/13/23 06:18 100 03/13/23 06:00 90 03/13/23 04:50 90 03/13/23 03:44 90 03/13/23 00:46 90 03/13/23 00:00 90 03/12/23 21:55 03/12/23 21:33 90 03/12/23 20:00 90 03/12/23 17:10 03/12/23 17:00 90 Intake and Output 03/13/23 03/13/23 03/13/23 06:59 14:59 22:59 Intake Total 271.626 218.453 Output Total 900 1100 Balance -628.374 -121.547 Intake: Intake, IV Titration 271.626 218.453 Amount Heparin Sod,Pork in 0.45% 271.626 218.453 NaCl 25,000 unit In 0.45 % NaCl 1 250ml.bag @ 18 UNITS/KG/HR 19.71 mls/hr IV .[id number] [facility] Rx#: [id number] Output: Urine 900 1100 Other: Voiding Method External Catheter External Catheter External Catheter Weight 105.5 kg 105.5 kg No acute distress S1-S2 heard Decreased breath sounds Abdomen distended Edema Results - Lab Results Most recent lab results ABG pH 7.36 (7.35-7.45) 03/13/23 06:53 ABG pCO2 41 mmHg (35-45) 03/13/23 06:53 ABG pO2 103 mmHg (83-108) 03/13/23 06:53 ABG HCO3 23 mmol/L (21-25) 03/13/23 06:53 ABG O2 Saturation 97.9 % (94-97) H 03/13/23 06:53 Calcium 9.1 mg/dL (8.4-10.2) 03/13/23 06:33 Phosphorus 5.8 mg/dL (2.5-4.5) H 03/08/23 01:15 Magnesium 2.1 mg/dL (1.6-2.3) 03/08/23 01:15 03/13/23 06:33 03/13/23 06:33 Assessment and Plan Assessment: #1 acute kidney injury multifactorial ATN. -Baseline creatinine 2.0-2.5 MG per DL. -Admission creatinine of 2.8 MG per DL. #2 CK D stage IV suspect nephrosclerosis. #3 hypoxic respiratory failure on oxygen #4 volume overload with edema #5 hyponatremia secondary to decreased oral intake. #6 anemia multifactorial Plan: #1 agree with D5 water at 80 ML's an hour. #2 also add Lasix 40 mg IV twice a day. #3 labs in the morning. #4 avoid nephrotoxic agents and hypotensive episodes.
[2023-03-13] MEDS: bisacodyL 10 MG SUPP RECTAL SCH (16:46)
[2023-03-13 17:47] LABS: Glucose,Whole Blood 257 mg/dL (70-110)
--- NOTE | 2023-03-13 20:32 | P.PN ---
Subjective Progress Note Date: 03/13/23 77 years old male with past medical history of Diabetes Mellitus, Hyperlipidemia, Hypertension, Osteoarthritis, cervical spine decompression and fusion surgery. PCP is Dr. Blount patient was sent from our with for shortness of breathwith hypoxia and saturating 81. 82% on 4 L oxygen via nasal cannula. Right upper extremity PICC line patient last time he was discharged on daptomycin every 48 hours 14 days.patient finished treatment and his lower extremity cellulitis is improving patient currently on BiPAP, with oxygen saturation 97%. Afebrile. Labs showed leukocytosis of 14,000, hemoglobin 7.5 creatinine is elevated at 2.8 which is at baseline of 2.2-3.0 Troponin is elevated at 0.15, 0.13.proBNP 4460. TSH is low at 0.09 Urine analysis is not suspicious for infection. chest x-ray: confluent bilateral Multifocal airspace opacities patient is a started on ceftriaxone, Zithromax IV Lasix 03/13/2023 Patient is seen and evaluated in room at bedside; remains on BiPAP; patient went into respiratory distress during the night; stat ABGs were completed which revealed a pO2 of 103 and pCO2 of 41 - Patient is currently on BiPAP with FiO2 of 100% -- Vital signs are reviewed and remained stable Blood work reveals a WBC of 16.8, hemoglobin of 7, hematocrit 22.5 and platelet count of 182, sodium 154 cultures and 2.1, BUN/creatinine of 104/3.15 and blood glucose of 240 --Chest x-ray reveals diffuse bilateral infiltrates possibly diffuse pneumonia versus interstitial edema or acute respiratory distress syndrome - Patient remains on IV heparin for possible PE; V/Q scan cannot be completed due to unstable respiratory status -- Patient has been placed on IV fluids in form of D5 water for hypernatremia; we will monitor sodium levels closely Prognosis remains guarded Objective - Vital Signs Vital signs: Vital Signs Temp 97.9 F 03/13/23 09:00 Pulse 77 03/13/23 09:00 Resp 24 03/13/23 09:00 BP 174/72 03/13/23 09:00 Pulse Ox 95 03/13/23 09:00 FiO2 80 03/13/23 10:51 Intake & Output 03/12/23 03/13/23 03/13/23 18:59 06:59 18:59 Intake Total 281.626 Output Total 1200 900 500 Balance -1200 -618.374 -500 Weight 109.5 kg 105.5 kg Intake: IV 10 Invasive Line 3 10 Intake, IV Titration 271.626 Amount Heparin Sod,Pork in 0.45% 271.626 NaCl 25,000 unit In 0.45 % NaCl 1 250ml.bag @ 18 UNITS/KG/HR 19.71 mls/hr IV .[id number] [facility] Rx#: [id number] Output: Urine 1200 900 500 Other: Voiding Method External Catheter External Catheter External Catheter - Exam -GENERAL: The patient is alert and oriented x3, in mild respiratory distress, on BiPAP machine HEENT: Pupils are round and equally reacting to light. EOMI. No scleral icterus. No conjunctival pallor. Normocephalic, atraumatic. No pharyngeal erythema. No thyromegaly. CARDIOVASCULAR: S1 and S2 present. No murmurs, rubs, or gallops. -PULMONARY: Chest is clear to auscultation, no wheezing , decreased air entry in both sides with scattered crackles ABDOMEN: Soft, nontender, nondistended, normoactive bowel sounds. No palpable organomegaly. MUSCULOSKELETAL: No joint swelling or deformity. EXTREMITIES: No cyanosis, clubbing, or pedal edema. NEUROLOGICAL: Gross neurological examination did not reveal any focal deficits. SKIN: No rashes. no petechiae. - Labs CBC & Chem 7: 03/13/23 06:33 03/13/23 06:33 Labs: Abnormal Lab Results - Last 24 Hours (Table) 03/12/23 03/12/23 03/12/23 Range/Units 09:49 12:08 12:53 WBC 19.0 H (3.8-10.6) k/uL RBC 2.55 L (4.30-5.90) m/uL Hgb 7.6 L (13.0-17.5) gm/dL Hct 24.9 L (39.0-53.0) % MCHC 30.5 L (31.0-37.0) g/dL Neutrophils # 17.9 H (1.3-7.7) k/uL Lymphocytes # 0.4 L (1.0-4.8) k/uL PT (9.0-12.0) sec INR (<1.2) APTT (22.0-30.0) sec D-Dimer >34.00 H (<0.60) mg/L FEU ABG Total CO2 (19-24) mmol/L ABG O2 Saturation (94-97) % POC Glucose (mg/dL) 177 H (70-110) mg/dL TSH (0.465-4.680) mIU/L 03/12/23 03/12/23 03/12/23 Range/Units 12:53 12:53 15:49 WBC (3.8-10.6) k/uL RBC (4.30-5.90) m/uL Hgb (13.0-17.5) gm/dL Hct (39.0-53.0) % MCHC (31.0-37.0) g/dL Neutrophils # (1.3-7.7) k/uL Lymphocytes # (1.0-4.8) k/uL PT 12.7 H (9.0-12.0) sec INR 1.2 H (<1.2) APTT >200.0 H* (22.0-30.0) sec D-Dimer (<0.60) mg/L FEU ABG Total CO2 (19-24) mmol/L ABG O2 Saturation (94-97) % POC Glucose (mg/dL) 213 H (70-110) mg/dL TSH 0.123 L (0.465-4.680) mIU/L 03/12/23 03/12/23 03/13/23 Range/Units 17:01 18:34 00:25 WBC (3.8-10.6) k/uL RBC (4.30-5.90) m/uL Hgb (13.0-17.5) gm/dL Hct (39.0-53.0) % MCHC (31.0-37.0) g/dL Neutrophils # (1.3-7.7) k/uL Lymphocytes # (1.0-4.8) k/uL PT (9.0-12.0) sec INR (<1.2) APTT 118.2 H* (22.0-30.0) sec D-Dimer (<0.60) mg/L FEU ABG Total CO2 (19-24) mmol/L ABG O2 Saturation (94-97) % POC Glucose (mg/dL) 217 H 221 H (70-110) mg/dL TSH (0.465-4.680) mIU/L 03/13/23 03/13/23 03/13/23 Range/Units 06:02 06:33 06:33 WBC 16.8 H (3.8-10.6) k/uL RBC 2.28 L (4.30-5.90) m/uL Hgb 7.0 L (13.0-17.5) gm/dL Hct 22.5 L (39.0-53.0) % MCHC (31.0-37.0) g/dL Neutrophils # 15.7 H (1.3-7.7) k/uL Lymphocytes # 0.5 L (1.0-4.8) k/uL PT (9.0-12.0) sec INR (<1.2) APTT 51.7 H (22.0-30.0) sec D-Dimer (<0.60) mg/L FEU ABG Total CO2 (19-24) mmol/L ABG O2 Saturation (94-97) % POC Glucose (mg/dL) 248 H (70-110) mg/dL TSH (0.465-4.680) mIU/L 03/13/23 03/13/23 Range/Units 06:53 10:44 WBC (3.8-10.6) k/uL RBC (4.30-5.90) m/uL Hgb (13.0-17.5) gm/dL Hct (39.0-53.0) % MCHC (31.0-37.0) g/dL Neutrophils # (1.3-7.7) k/uL Lymphocytes # (1.0-4.8) k/uL PT (9.0-12.0) sec INR (<1.2) APTT (22.0-30.0) sec D-Dimer (<0.60) mg/L FEU ABG Total CO2 25 H (19-24) mmol/L ABG O2 Saturation 97.9 H (94-97) % POC Glucose (mg/dL) 278 H (70-110) mg/dL TSH (0.465-4.680) mIU/L Assessment and Plan Assessment: bilateral airspace opacities suspicious for bilateral pneumonia, Versus pulmonary edema bilateral leg edema with stasis dermatitis multifactorial also due to heart failure normochromic, normocytic anemia chronic kidney disease stage III Diabetes mellitus Hypertension Hyperlipidemia History of osteoarthritis Hypothyroidism with very low TSH upper extremity tremor on mirapex restless leg syndrom Plan: continue with antibiotic ceftriaxone and Zithromax continue with IV Lasix Change his oral medication to IV Follow-up Culture results Bronchodilator and pulmonary consult cardiology consult patient on levothyroxine at 175 g. In view of low TSH hold levothyroxine today and to start 150 g tomorrow and recheck thyroid function test in 1-2 months Labs and medication were reviewed.. Continue same treatment. Continue with symptomatic treatment. Resume home medication. Monitor lytes and vitals. DVT and GI prophylaxis. Further recommendations depends on the clinical course of the patient DVT prophylaxis: Subcutaneous heparin GI Prophylaxis: Pepcid Prognosis is guarded
[2023-03-13] MEDS ORDERED: HALOPERIDOL LACTATE 5 MG/ML 1 ML VIAL IM STA (21:10)
[2023-03-13 23:44] LABS: Glucose,Whole Blood 262 mg/dL (70-110)
[2023-03-14] MEDS: HYDROmorphone 1 MG/ML 1 ML SYRINGE IVP PRN (01:36)
[2023-03-14] MEDS: HEPARIN SOD,PORK IN 0.45% NACL 25,000 UNIT in 0.45% NACL 1 250ML.BAG IV SCH ×2 (01:40→13:21)
[2023-03-14 02:09] LABS: Glucose,Whole Blood 293 mg/dL (70-110)
[2023-03-14 03:08] LABS: Glucose,Whole Blood 297 mg/dL (70-110)
[2023-03-14] MEDS: LORazepam 2 MG/ML INJ IV PRN ×4 (03:42→23:11)
[2023-03-14] MEDS: INSULIN ASPART (NovoLOG) 100 UNIT/ML VIAL SQ SCH ×5 (03:53→23:47)
[2023-03-14 03:58] LABS: African American GFR (CKD) 23 (>60 ml/min/1.73 sqM); Anion Gap 15 mmol/L; Calcium 9.4 mg/dL (8.4-10.2); Carbon Dioxide 23 mmol/L (22-30); Chloride 117 mmol/L (98-107); Glucose 285 mg/dL (74-99); Non-African American GFR(CKD) 20 (>60 ml/min/1.73 sqM); Potassium 3.2 mmol/L (3.5-5.1); Sodium 155 mmol/L (137-145)
[2023-03-14 04:00] LABS: Blood Urea Nitrogen 107 mg/dL (9-20)
[2023-03-14 04:56] LABS: Basophils % (A) 0 %; Eosinophils # (A) 0.1 k/uL (0-0.7); Eosinophils % (A) 0 %; HCT 24.5 % (39.0-53.0); HGB 7.4 gm/dL (13.0-17.5); Hypochromasia Marked; Lymphocytes # (A) 0.4 k/uL (1.0-4.8); Lymphocytes % (A) 2 %; MCH 29.7 pg (25.0-35.0); MCHC 30.1 g/dL (31.0-37.0); MCV 98.6 fL (80.0-100.0); Macrocytosis Slight; Mean Platelet Volume 13.2; Monocytes # (A) 0.6 k/uL (0-1.0); Monocytes % (A) 3 %; Neutrophils # (A) 21.2 k/uL (1.3-7.7); Neutrophils % (A) 95 %; Platelet Count 209 k/uL (150-450); RBC 2.48 m/uL (4.30-5.90); RDW 15.8 % (11.5-15.5); WBC 22.4 k/uL (3.8-10.6)
[2023-03-14] MEDS: POTASSIUM CHLORIDE 10 MEQ in WATER FOR INJECTION 1 100ML.BAG IVPB SCH ×12 (05:07→23:23)
[2023-03-14 06:08] LABS: Glucose,Whole Blood 276 mg/dL (70-110)
[2023-03-14] MEDS: methylPREDNISolone SOD SUCCI 125 MG/2 ML VIAL IV SCH ×4 (06:12→23:10)
[2023-03-14 06:59] LABS: Large Platelets Present; Poikilocytosis (M) Present
[2023-03-14] MEDS: FAMOTIDINE 20 MG/2 ML VIAL IV SCH (08:28)
[2023-03-14] MEDS: FUROSEMIDE 10 MG/ML 4 ML VIAL IV SCH ×2 (08:28→21:51)
[2023-03-14] MEDS: METOPROLOL TARTRATE 5 MG/5 ML VIAL IVP SCH (08:28)
[2023-03-14] MEDS: bisacodyL 10 MG SUPP RECTAL SCH (08:29)
--- NOTE | 2023-03-14 08:35 | XR ---
EXAMINATION TYPE: XR chest 1V portable DATE OF EXAM: 03/14/2023 COMPARISON: 03/13/2023 HISTORY: BiPAP TECHNIQUE: Single frontal view of the chest is obtained. FINDINGS: The diffuse fluffy infiltrates are unchanged compared to previous. There is no large pleural effusion or pneumothorax. Cardiac silhouette is mildly prominent. The osseous structures are intact. IMPRESSION: Marked acute cardiopulmonary disease with no significant interval change.
[2023-03-14] MEDS: FORMOTEROL FUMARATE 20 MCG/2 ML NEBU INHALATION SCH ×2 (08:36→20:49)
[2023-03-14] MEDS: BUDESONIDE 1 MG/2 ML NEBU INHALATION SCH ×2 (08:36→20:49)
[2023-03-14] MEDS: IPRATROPIUM-ALBUTEROL 3 ML NEB INHALATION PRN ×3 (08:36→20:49)
[2023-03-14] MEDS: LEVOTHYROXINE IVP 100 MCG/5 ML VIAL IV SCH (08:41)
[2023-03-14] MEDS: PIPERACILLIN-TAZOBACTAM 3.375 GM in SODIUM CHLORIDE 0.9% 100 ML IVPB SCH ×3 (09:28→23:10)
[2023-03-14] MEDS: DEXMEDETOMIDINE/0.9% NACL(PMX) 400 MCG in EMPTY BAG 1 BAG IV SCH ×3 (09:34→16:39)
[2023-03-14] MEDS: HYDROPHILIC CREAM 180 GM TUBE TOPICAL SCH (09:39)
[2023-03-14] MEDS: ASPIRIN 300 MG SUPP RECTAL SCH (09:51)
[2023-03-14 10:16] LABS: African American GFR (CKD) 25 (>60 ml/min/1.73 sqM); Anion Gap 12 mmol/L; Calcium 9.2 mg/dL (8.4-10.2); Carbon Dioxide 26 mmol/L (22-30); Chloride 119 mmol/L (98-107); Glucose 221 mg/dL (74-99); Non-African American GFR(CKD) 22 (>60 ml/min/1.73 sqM); Potassium 2.8 mmol/L (3.5-5.1); Sodium 157 mmol/L (137-145)
[2023-03-14 10:19] LABS: Blood Urea Nitrogen 109 mg/dL (9-20)
[2023-03-14] MEDS ORDERED: POTASSIUM CHLORIDE 20 MEQ in WATER FOR INJECTION 1 100ML.BAG IVPB SCH (11:45)
[2023-03-14] MEDS: hydrALAZINE HCL 50 MG TAB PO SCH ×2 (11:46→16:15)
[2023-03-14] MEDS: ATORVASTATIN 40 MG TAB PO SCH (11:46)
[2023-03-14] MEDS ORDERED: Potassium Replacement Protocol 1 EACH MISC MISCELLANE PRN ×2 (11:49→18:31)
--- NOTE | 2023-03-14 12:14 | P.PN ---
Subjective Progress Note Date: 03/14/23 Principal diagnosis: Hypoxemic respiratory failure. I am seeing this patient in new consultation today 03/08/2023 in the emergency room after he presented late last night from his rehab facility with complaints of shortness of breath and nonproductive cough. Patient is a 77-year-old white male with past medical history significant for hypertension, hyperlipidemia, diabetes mellitus type 2, chronic kidney disease, obesity, hypothyroidism, and prior back surgeries. Denies any history of pulmonary disease including COPD or asthma. Ex-smoker of over 30 years ago. Patient did have a recent hospital admission from February 13 through February 22 for falls and lower ext remity cellulitis. He was discharged to [facility], and was receiving IV Daptomycin through a right upper extremity PICC. Patient did return to the emergency room late last night via EMS for complaints of progressively worsening shortness of breath and nonproductive cough that started since his recent hospital discharge. He denies any fevers, chills, myalgias, chest pain. He does admit lower extremity swelling. His lower extremities are erythemic, but states that they're improved since initiating his IV antibiotics. Patient is currently sitting up in bed, on BiPAP with settings 12/6 and FiO2 of 60%. He appears fairly comfortable, and not in any acute respiratory distress. Respiratory rate is in the mid 20s and he is achieving tidal volumes around 600- 700. Chest x-ray on admission shows multifocal airspace opacities concerning for pneumonia. Patient has been started on empiric antibiotics. Currently afebrile. CBC shows leukocytosis with a WBC count of 15.1, hemoglobin 8, h ematocrit 25.1, platelets 194. BMP from admission shows a sodium 138, potassium 4.5, chloride 105, serum bicarb 20, BUN 66, creatinine 2.91, glucose 160. Lactic acid level was 1.1. Troponins are 0.149 and 0.155 respectively. NT proBNP 4460. Patient was given a one-time dose of Lasix 80 mg in the ER. He appears hemodynamically stable at this time. Patient will be monitored on the cardiac stepdown unit. Progress note dated 03/09/2023. 77-year-old male, who was seen in the emergency department yesterday. The patient was admitted with a diagnosis of hypoxemic respiratory failure. The adam gabriel has a history of hypertension, hyperlipidemia, type 2 diabetes, chronic kidney disease, obesity, and hypothyroidism. The patient N-terminal proBNP was 4460. The patient was placed on BiPAP, and continues on BiPAP. The settings include 12/6, and 80%. He's not receiving any IV fluids the patient will have a follow-up chest x-ray in the morning. The patient's BMP was elevated as was his pro-calcitonin level. The patient remains on Zithromax and Rocephin. White count is 18.3, hemoglobin 7.2, hematocrit 22.3, with a normal platelet count. Sodium 139, potassium 4.3, chlorides 108, CO2 21, BUN 70, and creatinine 2.76. Progress note dated 03/10/2023. This is a 77-year-old male, seen in consultation 2 days ago. He was diagnosed with hypoxemic respiratory failure, secondary to fluid overload. The patient N- terminal proBNP was 4460. The patient has a history of hypertension, hype rlipidemia, type 2 diabetes, chronic kidney disease, recently, and hypothyroidism. The patient remains on BiPAP, with settings of 12/6 and 80%. Clinically he feels much better. A chest x-ray was ordered for tomorrow. The patient continues on azithromycin and Rocephin as well. No new labs today other than a glucose of 160. Progress note dated 03/11/2023. 77-year-old male seen in consultation a few days ago. He came in with hypoxemic respiratory failure secondary to fluid overload. He had an elevated N-terminal proBNP. The patient is seen again in room 372. He remains on BiPAP, with s ettings of 12/6, at 70%. The patient's chest x-ray, dated March 11, is improved. Clinically, the patient feels much improved. Labs are reviewed. Glucose 158. Progress note dated 03/12/2023. 77-year-old male who was seen again in room 372. Yesterday, the patient was doing better, but today, he apparently feels much more short of breath. Currently, he is on BiPAP, with settings of 12/6, and 90%. Yesterday he was down to 60-70%. He will get Solu-Medrol 60 mg every 6 hours, and Lasix 40 mg IV push. In addition, we had some budesonide, and formoterol breathing treatments, twice a day. White count 16.3, hemoglobin 7.4, hematocrit 24.1, and platelet count was normal. Sodium 153, potassium 3.4, chlorides 113, CO2 25, BUN 93, and creatinine 3.16. Today's chest x-ray shows diffuse bilateral airspace disease, which may be on the basis of fluid overload, and/or pneumonia. Progress note dated 03/13/2023. 77-year-old male, seen today in room 372. Overnight, the patient had worsening respiratory status, and, a blood gas was done. The PaO2 was 103, the pCO2 was 41, and the pH was 7.36. This was on BiPAP, 100%, with an IPAP of 16, EPAP of 8. The patient continues on D5.45 is 75 mL an hour. Heparin was started empirically, for possible pulmonary embolism. A rapid response was called on the patient this morning. He apparently had received some narcotic, and was very sleepy and lethargic. Currently labs are good a white count 16.8, hemoglobin 7, hematocrit 22.5, and a platelet count of 182,000. Sodium was 154, potassium 3.1, chlorides 116, CO2 23, BUN 104, and creatinine 3.15. Glucose was 240. Calcium 9.1. Chest x-ray shows diffuse bilateral infiltrates, which could relate interstitial edema, or diffuse pneumonia, or acute respiratory distress syndrome. Bilateral lower extremity venous Dopplers were negative. Progress note dated 03/14/2023. 77-year-old male who was seen on the floor yesterday. Today, he is seen in the intensive care unit. The patient had an episode of worsening respiratory status. The patient was placed on BiPAP, with settings of 16/8, and 80%. The patient is receiving IV heparin empirically. The patient was brought down for agitation, and placed on Precedex. The patient is currently on Zosyn. A pro- calcitonin level is being rechecked. White count is 22.4, hemoglobin 7.4, hematocrit 24.5, with a normal platelet count. Sodium 157, potassium 2.8, chlorides 119, CO2 26, BUN 109, and creatinine 2.73. Chest x-ray continues to show bilateral airspace disease, which may be on the basis of fluid, pneumonia, or acute respiratory distress syndrome. Objective - Vital Signs Vital signs: Vital Signs Temp 98.4 F 03/14/23 08:00 Pulse 59 L 03/14/23 11:00 Resp 17 03/14/23 11:00 BP 164/68 03/14/23 11:00 Pulse Ox 97 03/14/23 11:00 FiO2 80 03/14/23 11:21 Intake & Output 03/13/23 03/14/23 03/14/23 18:59 06:59 18:59 Intake Total 1584.053 249.604 120 Output Total 1100 600 700 Balance 484.053 -350.396 -580 Weight 105.5 kg 110.5 kg Intake: IV 249.6 10 120 Heparin Sod,Pork in 0.45% 249.6 NaCl 25,000 unit In 0.45 % NaCl 1 250ml.bag @ 18 UNITS/KG/HR 19.71 mls/hr IV .[id number] [facility] Rx#: [id number] Invasive Line 3 10 NS TKO 20 Piperacillin-Tazobactam 3 100 .375 gm In Sodium Chloride 0.9% 100 ml @ 25 mls/hr IVPB Q8HR [facility] Rx# :[id number] Intake, IV Titration 1334.453 239.604 Amount Azithromycin 500 mg In 250 Sodium Chloride 0.9% 250 ml @ 250 mls/hr IVPB DAILY [facility] Rx#:[id number] Dextrose 5% in Water 1, 166 000 ml @ 83 mls/hr IV . Q12H3M [facility] Rx#:[id number] Dextrose 5%-0.45% NaCl 1, 600 000 ml @ 75 mls/hr IV . [id number] [facility] Rx#:[id number] Heparin Sod,Pork in 0.45% 218.453 239.604 NaCl 25,000 unit In 0.45 % NaCl 1 250ml.bag @ 18 UNITS/KG/HR 19.71 mls/hr IV .[id number] [facility] Rx#: [id number] Potassium Chloride 20 meq 100 In Water For Injection 1 100ml.bag @ 50 mls/hr IVPB ONCE [facility] Rx#: [id number] Output: Urine 1100 600 700 Other: Voiding Method External Catheter External Catheter # Voids 1 1 - Exam BiPAP mask in place. Lethargic, but does arouse. HEENT examination is grossly unremarkable. Neck supple. Full range of motion. No adenopathy thyromegaly or neck vein distention. Cardiovascular examination reveals regular rhythm rate. S1-S2 normal. No S3 or S4. No discernible murmur noted. Heart rate 76 bpm. Heart sounds are distant. Lungs reveal scattered rhonchi and crackles. Breath sounds equal. Saturations are 97 %. Breath sounds are equal bilaterally. No distinct wheezes noted. Abdomen soft bowel sounds are heard. No masses or tenderness. Extremities are intact. No cyanosis clubbing or edema. Skin is without rash or lesion. Neurologic examination is brief but nonfocal. - Labs CBC & Chem 7: 03/14/23 03:33 03/14/23 09:28 Labs: Abnormal Lab Results - Last 24 Hours (Table) 03/12/23 03/13/23 03/13/23 Range/Units 18:34 06:33 17:45 WBC (3.8-10.6) k/uL RBC (4.30-5.90) m/uL Hgb (13.0-17.5) gm/dL Hct (39.0-53.0) % MCHC (31.0-37.0) g/dL RDW (11.5-15.5) % Neutrophils # (1.3-7.7) k/uL Lymphocytes # (1.0-4.8) k/uL APTT 118.2 H* (22.0-30.0) sec Sodium 154 H (137-145) mmol/L Potassium 3.1 L (3.5-5.1) mmol/L Chloride 116 H (98-107) mmol/L BUN 104 H* (9-20) mg/dL Creatinine 3.15 H (0.66-1.25) mg/dL Glucose 240 H (74-99) mg/dL POC Glucose (mg/dL) 257 H (70-110) mg/dL 03/13/23 03/14/23 03/14/23 Range/Units 23:43 02:08 03:07 WBC (3.8-10.6) k/uL RBC (4.30-5.90) m/uL Hgb (13.0-17.5) gm/dL Hct (39.0-53.0) % MCHC (31.0-37.0) g/dL RDW (11.5-15.5) % Neutrophils # (1.3-7.7) k/uL Lymphocytes # (1.0-4.8) k/uL APTT (22.0-30.0) sec Sodium (137-145) mmol/L Potassium (3.5-5.1) mmol/L Chloride (98-107) mmol/L BUN (9-20) mg/dL Creatinine (0.66-1.25) mg/dL Glucose (74-99) mg/dL POC Glucose (mg/dL) 262 H 293 H 297 H (70-110) mg/dL 03/14/23 03/14/23 03/14/23 Range/Units 03:33 03:33 03:33 WBC 22.4 H (3.8-10.6) k/uL RBC 2.48 L (4.30-5.90) m/uL Hgb 7.4 L (13.0-17.5) gm/dL Hct 24.5 L (39.0-53.0) % MCHC 30.1 L (31.0-37.0) g/dL RDW 15.8 H (11.5-15.5) % Neutrophils # 21.2 H (1.3-7.7) k/uL Lymphocytes # 0.4 L (1.0-4.8) k/uL APTT 57.2 H (22.0-30.0) sec Sodium 155 H (137-145) mmol/L Potassium 3.2 L (3.5-5.1) mmol/L Chloride 117 H (98-107) mmol/L BUN 107 H* (9-20) mg/dL Creatinine 2.92 H (0.66-1.25) mg/dL Glucose 285 H (74-99) mg/dL POC Glucose (mg/dL) (70-110) mg/dL 03/14/23 03/14/23 Range/Units 06:06 09:28 WBC (3.8-10.6) k/uL RBC (4.30-5.90) m/uL Hgb (13.0-17.5) gm/dL Hct (39.0-53.0) % MCHC (31.0-37.0) g/dL RDW (11.5-15.5) % Neutrophils # (1.3-7.7) k/uL Lymphocytes # (1.0-4.8) k/uL APTT (22.0-30.0) sec Sodium 157 H (137-145) mmol/L Potassium 2.8 L (3.5-5.1) mmol/L Chloride 119 H (98-107) mmol/L BUN 109 H* (9-20) mg/dL Creatinine 2.73 H (0.66-1.25) mg/dL Glucose 221 H (74-99) mg/dL POC Glucose (mg/dL) 276 H (70-110) mg/dL Assessment and Plan Assessment: Acute hypoxemic respiratory failure, secondary to possible healthcare associated pneumonia, versus acute pulmonary edema, versus acute respiratory distress syndrome. Bilateral lower extremity edema, and cellulitis. Elevated troponins, rule out non-ST segment elevation myocardial infarction. Anemia of chronic disease. Stage III chronic kidney disease. Type 2 diabetes mellitus. Benign essential hypertension. Dyslipidemia. Hypothyroidism. Benign prostatic hypertrophy. Obesity. Plan: Plan dated 03/09/2023. Currently, the patient's on BiPAP, with settings of 12/6, and 80%. Remains on Zithromax and Rocephin for possible pneumonia. Both the patient's BNP, and pro- calcitonin level were elevated. The patient is not receiving any IV fluids. Chest x-rays were ordered for the morning. Labs, x-rays, and medications are all reviewed. Prognosis is guarded. We will continue to follow the patient, and make recommendations along the way. Plan dated 03/10/2023. The patient clinically looks much improved. He appears much less short of b reath. He continues on BiPAP. In addition, the patient continues on antibiotics for possible pneumonia. The patient's BMP was elevated as was the pro-calcitonin level. The patient is not receiving any IV fluids. The chest x- ray from today is reviewed. Labs, x-rays, and medications are reviewed. Prognosis is guarded. We will continue to follow the patient, and make recommendations along the way. Plan dated 03/11/2023. Clinically, the patient appears to be doing better. Also, radiographically, the patient is better. He feels much less short of breath. The patient's labs, x- rays, and medications are reviewed. We will continue to follow the patient make recommendations along the way. Initially, the BNP, and the pro-calcitonin level were elevated. The patient's prognosis remains guarded. We will continue to see the patient, and make recommendations where appropriate. Plan dated 03/12/2023. The patient is seen today in room 372. The patient's currently on BiPAP, with settings of 12/6, and 90%. The patient will get a dose of Lasix, 40 mg IV push. In addition, we place him on Solu-Medrol, 60 mg IV, every 6 hours. So, we had budesonide, and formoterol, twice a day. Labs, x-rays, and medications are reviewed. Because of the elevated d-dimer, and his renal dysfunction, CT angiogram could not be done. Instead, we'll start the patient on IV heparin, and do some Dopplers of the lower extremities. Additional recommendations and suggestions are forthcoming. Prognosis is guarded. Plan dated 03/13/2023. The patient was seen in room 372. Actually, a rapid response was called on this patient. A blood gas was done, and is reasonably stable. The patient has bec ome quite hypernatremic, and his fluids will need to be adjusted accordingly. We'll also make sure that Lasix is discontinued. His chest x-rays reviewed. Dopplers of the lower extremities were negative. He was placed on IV heparin and apparently. Additional recommendations and suggestions are forthcoming. Prognosis is guarded. He may end up in the intensive care unit, and may even end up on the mechanical ventilator. Plan dated 03/14/2023. The patient is seen in room 258. The patient was brought down to the intensive care unit for worsening respiratory status, and agitation. The patient was placed on dexmedetomidine. In addition, he was seen by nephrology. Labs, x- rays, and medications are all reviewed. The patient's currently on IV heparin empirically. The patient's also receiving Zosyn. We will recheck a pro- calcitonin level. Additional recommendations and suggestions are forthcoming. The patient is becoming more and more hypernatremic, and should be given D5W, without any saline and it. In addition, Lasix should be held. Prognosis is guarded. We'll continue to follow make recommendations along the way. Time with Patient: Greater than 30
[2023-03-14 12:15] LABS: Amorphous Sediment,Urine Few /hpf; Appearance,Urine Cloudy (Clear); Bacteria,Urine Rare /hpf; Bilirubin,Urine Negative (Negative); Blood,Urine Large (Negative); Color,Urine Colorless; Glucose,Urine (UA) Trace (Negative); Hyaline Casts,Urine 6 /lpf (0-2); Ketones,Urine Negative (Negative); Leukocyte Esterase,Urine Negative (Negative); Mucus,Urine Rare /hpf; Nitrite,Urine Negative (Negative); Protein,Urine 1+ (Negative); RBC,Urine 3 /hpf (0-5); Specific Gravity,Urine 1.009 (1.001-1.035); Squamous Epithelial Cell,Urine 1 /hpf (0-4); Urobilinogen,Urine <2.0 mg/dL (<2.0); WBC,Urine 4 /hpf (0-5)
[2023-03-14 12:15] LABS: Glucose,Whole Blood 258 mg/dL (70-110)
[2023-03-14] MEDS ORDERED: DILTIAZEM 125 MG in SODIUM CHLORIDE 0.9% 100 ML IV SCH (12:45)
--- NOTE | 2023-03-14 13:49 | P.PN ---
Subjective Progress Note Date: 03/14/23 This is Leonel Martinez NP, I'm dictating on behalf of Dr. Melchor's H&P and A&P. Patient was interviewed and examined. Patient is a 77-year-old male who is currently admitted to hospital with pneumonia and acute hypoxic respiratory failure. Cardiology was consulted for heart failure with preserved ejection fraction and history of coronary artery disease, he normally follows in the office with Dr. Wheeler. Patient had an episode yesterday where he was found to be unresponsive as well as bradycardic with his heart rate down into the 30s, with subsequent A. fib with RVR. Patient had no evidence of heart block. Subsequent to that, the patient was transferred to the intensive care unit for further evaluation and treatment. This morning the patient is demonstrating normal sinus rhythm on telemetry. He is currently on BiPAP, but generally feeling okay. After rounds are contacted by nursing staff to let us know that the patient had gone back into A. fib with RVR. We recommended a Cardizem drip starting at 5, and increasing to 10 if necessary to keep his heart rates under 100. We will reevaluate the patient tomorrow. GENERAL: Ill-appearing, well-nourished and in no acute distress. NECK: Supple without JVD or thyromegaly. LUNGS: Breath sounds clear to auscultation bilaterally. Respiration equal and unlabored. No wheezes, rales or rhonchi. HEART: Regular rate and rhythm without murmurs, rubs or gallops. S1 and S2 heard. EXTREMITIES: Normal range of motion, no edema. No clubbing or cyanosis. Peripheral pulses intact and strong. VITALS: Temp 98.4, pulse 61, respirations 15, blood pressure 139/72, O2 saturation 94% on BiPAP TELEMETRY: Normal sinus rhythm LABS: White count 22.4, hemoglobin 7.4, platelets 209, sodium 157, potassium 2.8, chloride 119, B1 109, creatinine 2.73, magnesium 2.5 IMPRESSION: 1. Vaguely mediated A. fib with RVR 2. Paroxysmal atrial fibrillation 3. Acute hypoxic respiratory failure 4. Pneumonia 5. Chronic heart failure with preserved ejection fraction 6. Chronic kidney disease 7. Coronary artery disease 8. Lower extremity cellulitis PLAN: Discontinue metoprolol. This was done as the patient was in normal sinus rhythm. After receiving the call from the floor the patient to come back into atrial fibrillation with rapid response, start diltiazem IV 5 mg per hour, increased to 10 if heart rates remain above 100. We'll reevaluate the patient in the morning. Further recreations based on patient's clinical course. Objective - Vital Signs Vital signs: Vital Signs Temp 96.6 F L 03/14/23 12:00 Pulse 102 H 03/14/23 13:00 Resp 22 03/14/23 13:00 BP 109/73 03/14/23 13:00 Pulse Ox 98 03/14/23 13:00 FiO2 80 03/14/23 11:21 Intake & Output 03/13/23 03/14/23 03/14/23 18:59 06:59 18:59 Intake Total 1584.053 249.604 448.159 Output Total 8067 640 7018 Balance 484.053 -350.396 -751.841 Weight 105.5 kg 110.5 kg Intake: IV 249.6 10 120 Heparin Sod,Pork in 0.45% 249.6 NaCl 25,000 unit In 0.45 % NaCl 1 250ml.bag @ 18 UNITS/KG/HR 19.71 mls/hr IV .[id number] [facility] Rx#: [id number] Invasive Line 3 10 NS TKO 20 Piperacillin-Tazobactam 3 100 .375 gm In Sodium Chloride 0.9% 100 ml @ 25 mls/hr IVPB Q8HR [facility] Rx# :[id number] Intake, IV Titration 1334.453 239.604 328.159 Amount Azithromycin 500 mg In 250 Sodium Chloride 0.9% 250 ml @ 250 mls/hr IVPB DAILY [facility] Rx#:[id number] Dexmedetomidine/0.9% NaCl 85.087 (Pmx) 400 mcg In Empty Bag 1 bag @ 0.2 MCG/KG/HR 5.525 mls/hr IV .[id number] [facility] Rx#:[id number] Dextrose 5% in Water 1, 166 000 ml @ 83 mls/hr IV . Q12H3M [facility] Rx#:[id number] Dextrose 5%-0.45% NaCl 1, 600 000 ml @ 75 mls/hr IV . [id number] [facility] Rx#:[id number] Heparin Sod,Pork in 0.45% 218.453 239.604 243.072 NaCl 25,000 unit In 0.45 % NaCl 1 250ml.bag @ 18 UNITS/KG/HR 19.71 mls/hr IV .[id number] [facility] Rx#: [id number] Potassium Chloride 20 meq 100 In Water For Injection 1 100ml.bag @ 50 mls/hr IVPB [facility] Rx#: [id number] Output: Urine 3499 859 5223 Other: Voiding Method External Catheter External Catheter # Voids 1 1 - Labs CBC & Chem 7: 03/14/23 03:33 03/14/23 09:28 Labs: Abnormal Lab Results - Last 24 Hours (Table) 03/12/23 03/13/23 03/13/23 Range/Units 18:34 17:45 23:43 WBC (3.8-10.6) k/uL RBC (4.30-5.90) m/uL Hgb (13.0-17.5) gm/dL Hct (39.0-53.0) % MCHC (31.0-37.0) g/dL RDW (11.5-15.5) % Neutrophils # (1.3-7.7) k/uL Lymphocytes # (1.0-4.8) k/uL APTT 118.2 H* (22.0-30.0) sec Sodium (137-145) mmol/L Potassium (3.5-5.1) mmol/L Chloride (98-107) mmol/L BUN (9-20) mg/dL Creatinine (0.66-1.25) mg/dL Glucose (74-99) mg/dL POC Glucose (mg/dL) 257 H 262 H (70-110) mg/dL Magnesium (1.6-2.3) mg/dL Urine Protein (Negative) Urine Glucose (UA) (Negative) Urine Blood (Negative) Amorphous Sediment (None) /hpf Urine Bacteria (None) /hpf Hyaline Casts (0-2) /lpf Urine Mucus (None) /hpf 03/14/23 03/14/23 03/14/23 Range/Units 02:08 03:07 03:33 WBC 22.4 H (3.8-10.6) k/uL RBC 2.48 L (4.30-5.90) m/uL Hgb 7.4 L (13.0-17.5) gm/dL Hct 24.5 L (39.0-53.0) % MCHC 30.1 L (31.0-37.0) g/dL RDW 15.8 H (11.5-15.5) % Neutrophils # 21.2 H (1.3-7.7) k/uL Lymphocytes # 0.4 L (1.0-4.8) k/uL APTT (22.0-30.0) sec Sodium (137-145) mmol/L Potassium (3.5-5.1) mmol/L Chloride (98-107) mmol/L BUN (9-20) mg/dL Creatinine (0.66-1.25) mg/dL Glucose (74-99) mg/dL POC Glucose (mg/dL) 293 H 297 H (70-110) mg/dL Magnesium (1.6-2.3) mg/dL Urine Protein (Negative) Urine Glucose (UA) (Negative) Urine Blood (Negative) Amorphous Sediment (None) /hpf Urine Bacteria (None) /hpf Hyaline Casts (0-2) /lpf Urine Mucus (None) /hpf 03/14/23 03/14/23 03/14/23 Range/Units 03:33 03:33 06:06 WBC (3.8-10.6) k/uL RBC (4.30-5.90) m/uL Hgb (13.0-17.5) gm/dL Hct (39.0-53.0) % MCHC (31.0-37.0) g/dL RDW (11.5-15.5) % Neutrophils # (1.3-7.7) k/uL Lymphocytes # (1.0-4.8) k/uL APTT 57.2 H (22.0-30.0) sec Sodium 155 H (137-145) mmol/L Potassium 3.2 L (3.5-5.1) mmol/L Chloride 117 H (98-107) mmol/L BUN 107 H* (9-20) mg/dL Creatinine 2.92 H (0.66-1.25) mg/dL Glucose 285 H (74-99) mg/dL POC Glucose (mg/dL) 276 H (70-110) mg/dL Magnesium (1.6-2.3) mg/dL Urine Protein (Negative) Urine Glucose (UA) (Negative) Urine Blood (Negative) Amorphous Sediment (None) /hpf Urine Bacteria (None) /hpf Hyaline Casts (0-2) /lpf Urine Mucus (None) /hpf 03/14/23 03/14/23 03/14/23 Range/Units 09:28 09:28 11:38 WBC (3.8-10.6) k/uL RBC (4.30-5.90) m/uL Hgb (13.0-17.5) gm/dL Hct (39.0-53.0) % MCHC (31.0-37.0) g/dL RDW (11.5-15.5) % Neutrophils # (1.3-7.7) k/uL Lymphocytes # (1.0-4.8) k/uL APTT (22.0-30.0) sec Sodium 157 H (137-145) mmol/L Potassium 2.8 L (3.5-5.1) mmol/L Chloride 119 H (98-107) mmol/L BUN 109 H* (9-20) mg/dL Creatinine 2.73 H (0.66-1.25) mg/dL Glucose 221 H (74-99) mg/dL POC Glucose (mg/dL) (70-110) mg/dL Magnesium 2.5 H (1.6-2.3) mg/dL Urine Protein 1+ H (Negative) Urine Glucose (UA) Trace H (Negative) Urine Blood Large H (Negative) Amorphous Sediment Few H (None) /hpf Urine Bacteria Rare H (None) /hpf Hyaline Casts 6 H (0-2) /lpf Urine Mucus Rare H (None) /hpf 03/14/23 Range/Units 12:14 WBC (3.8-10.6) k/uL RBC (4.30-5.90) m/uL Hgb (13.0-17.5) gm/dL Hct (39.0-53.0) % MCHC (31.0-37.0) g/dL RDW (11.5-15.5) % Neutrophils # (1.3-7.7) k/uL Lymphocytes # (1.0-4.8) k/uL APTT (22.0-30.0) sec Sodium (137-145) mmol/L Potassium (3.5-5.1) mmol/L Chloride (98-107) mmol/L BUN (9-20) mg/dL Creatinine (0.66-1.25) mg/dL Glucose (74-99) mg/dL POC Glucose (mg/dL) 258 H (70-110) mg/dL Magnesium (1.6-2.3) mg/dL Urine Protein (Negative) Urine Glucose (UA) (Negative) Urine Blood (Negative) Amorphous Sediment (None) /hpf Urine Bacteria (None) /hpf Hyaline Casts (0-2) /lpf Urine Mucus (None) /hpf
--- NOTE | 2023-03-14 14:34 | P.PN ---
Subjective Progress Note Date: 03/14/23 Follow-up for acute kidney injury, transferred to ICU for hypoxia. Currently on BiPAP. Urine output of 1.7 L in the last 24 hours. Objective - Vital Signs Vital signs: Vital Signs Temp 96.6 F L 03/14/23 12:00 Pulse 61 03/14/23 14:00 Resp 16 03/14/23 14:00 BP 131/70 03/14/23 14:00 Pulse Ox 94 L 03/14/23 14:00 FiO2 80 03/14/23 11:21 Intake & Output 03/13/23 03/14/23 03/14/23 18:59 06:59 18:59 Intake Total 1584.053 249.604 448.159 Output Total 9468 686 6887 Balance 484.053 -350.396 -851.841 Weight 105.5 kg 110.5 kg Intake: IV 249.6 10 120 Heparin Sod,Pork in 0.45% 249.6 NaCl 25,000 unit In 0.45 % NaCl 1 250ml.bag @ 18 UNITS/KG/HR 19.71 mls/hr IV .[id number] [facility] Rx#: [id number] Invasive Line 3 10 NS TKO 20 Piperacillin-Tazobactam 3 100 .375 gm In Sodium Chloride 0.9% 100 ml @ 25 mls/hr IVPB Q8HR [facility] Rx# :[id number] Intake, IV Titration 1334.453 239.604 328.159 Amount Azithromycin 500 mg In 250 Sodium Chloride 0.9% 250 ml @ 250 mls/hr IVPB DAILY [facility] Rx#:[id number] Dexmedetomidine/0.9% NaCl 85.087 (Pmx) 400 mcg In Empty Bag 1 bag @ 0.2 MCG/KG/HR 5.525 mls/hr IV .Q18H6M [facility] Rx#:[id number] Dextrose 5% in Water 1, 166 000 ml @ 83 mls/hr IV . Q12H3M [facility] Rx#:[id number] Dextrose 5%-0.45% NaCl 1, 600 000 ml @ 75 mls/hr IV . [id number] [facility] Rx#:[id number] Heparin Sod,Pork in 0.45% 218.453 239.604 243.072 NaCl 25,000 unit In 0.45 % NaCl 1 250ml.bag @ 18 UNITS/KG/HR 19.71 mls/hr IV .[id number] [facility] Rx#: [id number] Potassium Chloride 20 meq 100 In Water For Injection 1 100ml.bag @ 50 mls/hr IVPB ONCE [facility] Rx#: [id number] Output: Urine 1356 187 0102 Other: Voiding Method External Catheter External Catheter # Voids 1 1 - Exam No acute distress S1-S2 heard Decreased breath sounds Abdomen soft No edema - Labs CBC & Chem 7: 03/14/23 03:33 03/14/23 09:28 Labs: Abnormal Lab Results - Last 24 Hours (Table) 03/12/23 03/13/23 03/13/23 Range/Units 18:34 17:45 23:43 WBC (3.8-10.6) k/uL RBC (4.30-5.90) m/uL Hgb (13.0-17.5) gm/dL Hct (39.0-53.0) % MCHC (31.0-37.0) g/dL RDW (11.5-15.5) % Neutrophils # (1.3-7.7) k/uL Lymphocytes # (1.0-4.8) k/uL APTT 118.2 H* (22.0-30.0) sec Sodium (137-145) mmol/L Potassium (3.5-5.1) mmol/L Chloride (98-107) mmol/L BUN (9-20) mg/dL Creatinine (0.66-1.25) mg/dL Glucose (74-99) mg/dL POC Glucose (mg/dL) 257 H 262 H (70-110) mg/dL Magnesium (1.6-2.3) mg/dL Urine Protein (Negative) Urine Glucose (UA) (Negative) Urine Blood (Negative) Amorphous Sediment (None) /hpf Urine Bacteria (None) /hpf Hyaline Casts (0-2) /lpf Urine Mucus (None) /hpf 03/14/23 03/14/23 03/14/23 Range/Units 02:08 03:07 03:33 WBC 22.4 H (3.8-10.6) k/uL RBC 2.48 L (4.30-5.90) m/uL Hgb 7.4 L (13.0-17.5) gm/dL Hct 24.5 L (39.0-53.0) % MCHC 30.1 L (31.0-37.0) g/dL RDW 15.8 H (11.5-15.5) % Neutrophils # 21.2 H (1.3-7.7) k/uL Lymphocytes # 0.4 L (1.0-4.8) k/uL APTT (22.0-30.0) sec Sodium (137-145) mmol/L Potassium (3.5-5.1) mmol/L Chloride (98-107) mmol/L BUN (9-20) mg/dL Creatinine (0.66-1.25) mg/dL Glucose (74-99) mg/dL POC Glucose (mg/dL) 293 H 297 H (70-110) mg/dL Magnesium (1.6-2.3) mg/dL Urine Protein (Negative) Urine Glucose (UA) (Negative) Urine Blood (Negative) Amorphous Sediment (None) /hpf Urine Bacteria (None) /hpf Hyaline Casts (0-2) /lpf Urine Mucus (None) /hpf 03/14/23 03/14/23 03/14/23 Range/Units 03:33 03:33 06:06 WBC (3.8-10.6) k/uL RBC (4.30-5.90) m/uL Hgb (13.0-17.5) gm/dL Hct (39.0-53.0) % MCHC (31.0-37.0) g/dL RDW (11.5-15.5) % Neutrophils # (1.3-7.7) k/uL Lymphocytes # (1.0-4.8) k/uL APTT 57.2 H (22.0-30.0) sec Sodium 155 H (137-145) mmol/L Potassium 3.2 L (3.5-5.1) mmol/L Chloride 117 H (98-107) mmol/L BUN 107 H* (9-20) mg/dL Creatinine 2.92 H (0.66-1.25) mg/dL Glucose 285 H (74-99) mg/dL POC Glucose (mg/dL) 276 H (70-110) mg/dL Magnesium (1.6-2.3) mg/dL Urine Protein (Negative) Urine Glucose (UA) (Negative) Urine Blood (Negative) Amorphous Sediment (None) /hpf Urine Bacteria (None) /hpf Hyaline Casts (0-2) /lpf Urine Mucus (None) /hpf 03/14/23 03/14/23 03/14/23 Range/Units 09:28 09:28 11:38 WBC (3.8-10.6) k/uL RBC (4.30-5.90) m/uL Hgb (13.0-17.5) gm/dL Hct (39.0-53.0) % MCHC (31.0-37.0) g/dL RDW (11.5-15.5) % Neutrophils # (1.3-7.7) k/uL Lymphocytes # (1.0-4.8) k/uL APTT (22.0-30.0) sec Sodium 157 H (137-145) mmol/L Potassium 2.8 L (3.5-5.1) mmol/L Chloride 119 H (98-107) mmol/L BUN 109 H* (9-20) mg/dL Creatinine 2.73 H (0.66-1.25) mg/dL Glucose 221 H (74-99) mg/dL POC Glucose (mg/dL) (70-110) mg/dL Magnesium 2.5 H (1.6-2.3) mg/dL Urine Protein 1+ H (Negative) Urine Glucose (UA) Trace H (Negative) Urine Blood Large H (Negative) Amorphous Sediment Few H (None) /hpf Urine Bacteria Rare H (None) /hpf Hyaline Casts 6 H (0-2) /lpf Urine Mucus Rare H (None) /hpf 03/14/23 Range/Units 12:14 WBC (3.8-10.6) k/uL RBC (4.30-5.90) m/uL Hgb (13.0-17.5) gm/dL Hct (39.0-53.0) % MCHC (31.0-37.0) g/dL RDW (11.5-15.5) % Neutrophils # (1.3-7.7) k/uL Lymphocytes # (1.0-4.8) k/uL APTT (22.0-30.0) sec Sodium (137-145) mmol/L Potassium (3.5-5.1) mmol/L Chloride (98-107) mmol/L BUN (9-20) mg/dL Creatinine (0.66-1.25) mg/dL Glucose (74-99) mg/dL POC Glucose (mg/dL) 258 H (70-110) mg/dL Magnesium (1.6-2.3) mg/dL Urine Protein (Negative) Urine Glucose (UA) (Negative) Urine Blood (Negative) Amorphous Sediment (None) /hpf Urine Bacteria (None) /hpf Hyaline Casts (0-2) /lpf Urine Mucus (None) /hpf Assessment and Plan Assessment: #1 acute kidney injury multifactorial ATN. -Baseline creatinine 2.0-2.5 MG per DL. -Admission creatinine of 2.8 MG per DL. #2 CK D stage IV suspect nephrosclerosis. #3 hypoxic respiratory failure on oxygen #4 volume overload with edema #5 hyponatremia secondary to decreased oral intake. #6 anemia multifactorial Plan: #1 continue with Lasix 40 mg IV twice a day. #2 D5 water stopped by ICU. Monitor sodium.. #3 labs in the morning. #4 avoid nephrotoxic agents and hypotensive episodes. #5 ICU care
[2023-03-14 17:37] LABS: Glucose,Whole Blood 278 mg/dL (70-110)
--- NOTE | 2023-03-14 17:55 | P.PN ---
Subjective Progress Note Date: 03/14/23 77 years old male with past medical history of Diabetes Mellitus, Hyperlipidemia, Hypertension, Osteoarthritis, cervical spine decompression and fusion surgery. PCP is Dr. Blount patient was sent from our with for shortness of breathwith hypoxia and saturating 81. 82% on 4 L oxygen via nasal cannula. Right upper extremity PICC line patient last time he was discharged on daptomycin every 48 hours 14 days.patient finished treatment and his lower extremity cellulitis is improving patient currently on BiPAP, with oxygen saturation 97%. Afebrile. Labs showed leukocytosis of 14,000, hemoglobin 7.5 creatinine is elevated at 2.8 which is at baseline of 2.2-3.0 Troponin is elevated at 0.15, 0.13.proBNP 4460. TSH is low at 0.09 Urine analysis is not suspicious for infection. chest x-ray: confluent bilateral Multifocal airspace opacities patient is a started on ceftriaxone, Zithromax IV Lasix 03/13/2023 Patient is seen and evaluated in room at bedside; remains on BiPAP; patient went into respiratory distress during the night; stat ABGs were completed which revealed a pO2 of 103 and pCO2 of 41 - Patient is currently on BiPAP with FiO2 of 100% -- Vital signs are reviewed and remained stable Blood work reveals a WBC of 16.8, hemoglobin of 7, hematocrit 22.5 and platelet count of 182, sodium 154 cultures and 2.1, BUN/creatinine of 104/3.15 and blood glucose of 240 --Chest x-ray reveals diffuse bilateral infiltrates possibly diffuse pneumonia versus interstitial edema or acute respiratory distress syndrome - Patient remains on IV heparin for possible PE; V/Q scan cannot be completed due to unstable respiratory status -- Patient has been placed on IV fluids in form of D5 water for hypernatremia; we will monitor sodium levels closely Prognosis remains guarded 03/14/2023 Patient is seen and evaluated in room at bedside; transferred to ICU; patient had been agitated and restless and noncompliant with BiPAP resulting in worsening respiratory status -- Patient has been placed on Precedex and remains on BiPAP with settings of 16/8 and 80% Vital signs are reviewed with temperature of 98.4, pulse 59, respirations 17 and blood pressure of 164/68 White count is 22.4, hemoglobin 7.4, hematocrit 24.5, with a normal platelet count. Sodium 157, potassium 2.8, chlorides 119, CO2 26, BUN 109, and creatinine 2.73. Chest x-ray continues to show bilateral airspace disease, which may be on the basis of fluid, pneumonia, or acute respiratory distress syndrome. The patient's currently on IV heparin empirically. The patient's also receiving Zosyn. Heparin can be discontinued once PE is ruled out Objective - Vital Signs Vital signs: Vital Signs Temp 98.4 F 03/14/23 08:00 Pulse 62 03/14/23 08:36 Resp 15 03/14/23 08:00 BP 139/72 03/14/23 08:00 Pulse Ox 94 L 03/14/23 08:00 FiO2 60 03/14/23 07:55 Intake & Output 03/13/23 03/14/23 03/14/23 18:59 06:59 18:59 Intake Total 1584.053 249.604 Output Total 1100 600 Balance 484.053 -350.396 Weight 105.5 kg 110.5 kg Intake: IV 249.6 10 Heparin Sod,Pork in 0.45% 249.6 NaCl 25,000 unit In 0.45 % NaCl 1 250ml.bag @ 18 UNITS/KG/HR 19.71 mls/hr IV .[id number] [facility] Rx#: [id number] Invasive Line 3 10 Intake, IV Titration 1334.453 239.604 Amount Azithromycin 500 mg In 250 Sodium Chloride 0.9% 250 ml @ 250 mls/hr IVPB DAILY [facility] Rx#:[id number] Dextrose 5% in Water 1, 166 000 ml @ 83 mls/hr IV . Q12H3M [facility] Rx#:[id number] Dextrose 5%-0.45% NaCl 1, 600 000 ml @ 75 mls/hr IV . [id number] [facility] Rx#:[id number] Heparin Sod,Pork in 0.45% 218.453 239.604 NaCl 25,000 unit In 0.45 % NaCl 1 250ml.bag @ 18 UNITS/KG/HR 19.71 mls/hr IV .[id number] [facility] Rx#: [id number] Potassium Chloride 20 meq 100 In Water For Injection 1 100ml.bag @ 50 mls/hr IVPB ONCE [facility] Rx#: [id number] Output: Urine 1100 600 Other: Voiding Method External Catheter External Catheter # Voids 1 - Exam -GENERAL: The patient is alert and oriented x3, in mild respiratory distress, on BiPAP machine HEENT: Pupils are round and equally reacting to light. EOMI. No scleral icterus. No conjunctival pallor. Normocephalic, atraumatic. No pharyngeal erythema. No thyromegaly. CARDIOVASCULAR: S1 and S2 present. No murmurs, rubs, or gallops. -PULMONARY: Chest is clear to auscultation, no wheezing , decreased air entry in both sides with scattered crackles ABDOMEN: Soft, nontender, nondistended, normoactive bowel sounds. No palpable organomegaly. MUSCULOSKELETAL: No joint swelling or deformity. EXTREMITIES: No cyanosis, clubbing, or pedal edema. NEUROLOGICAL: Gross neurological examination did not reveal any focal deficits. SKIN: No rashes. no petechiae. - Labs CBC & Chem 7: 03/14/23 03:33 03/14/23 09:28 Labs: Abnormal Lab Results - Last 24 Hours (Table) 03/12/23 03/13/23 03/13/23 Range/Units 18:34 06:33 10:44 WBC (3.8-10.6) k/uL RBC (4.30-5.90) m/uL Hgb (13.0-17.5) gm/dL Hct (39.0-53.0) % MCHC (31.0-37.0) g/dL RDW (11.5-15.5) % Neutrophils # (1.3-7.7) k/uL Lymphocytes # (1.0-4.8) k/uL APTT 118.2 H* (22.0-30.0) sec Sodium 154 H (137-145) mmol/L Potassium 3.1 L (3.5-5.1) mmol/L Chloride 116 H (98-107) mmol/L BUN 104 H* (9-20) mg/dL Creatinine 3.15 H (0.66-1.25) mg/dL Glucose 240 H (74-99) mg/dL POC Glucose (mg/dL) 278 H (70-110) mg/dL 03/13/23 03/13/23 03/13/23 Range/Units 12:01 17:45 23:43 WBC (3.8-10.6) k/uL RBC (4.30-5.90) m/uL Hgb (13.0-17.5) gm/dL Hct (39.0-53.0) % MCHC (31.0-37.0) g/dL RDW (11.5-15.5) % Neutrophils # (1.3-7.7) k/uL Lymphocytes # (1.0-4.8) k/uL APTT (22.0-30.0) sec Sodium (137-145) mmol/L Potassium (3.5-5.1) mmol/L Chloride (98-107) mmol/L BUN (9-20) mg/dL Creatinine (0.66-1.25) mg/dL Glucose (74-99) mg/dL POC Glucose (mg/dL) 306 H 257 H 262 H (70-110) mg/dL 03/14/23 03/14/23 03/14/23 Range/Units 02:08 03:07 03:33 WBC 22.4 H (3.8-10.6) k/uL RBC 2.48 L (4.30-5.90) m/uL Hgb 7.4 L (13.0-17.5) gm/dL Hct 24.5 L (39.0-53.0) % MCHC 30.1 L (31.0-37.0) g/dL RDW 15.8 H (11.5-15.5) % Neutrophils # 21.2 H (1.3-7.7) k/uL Lymphocytes # 0.4 L (1.0-4.8) k/uL APTT (22.0-30.0) sec Sodium (137-145) mmol/L Potassium (3.5-5.1) mmol/L Chloride (98-107) mmol/L BUN (9-20) mg/dL Creatinine (0.66-1.25) mg/dL Glucose (74-99) mg/dL POC Glucose (mg/dL) 293 H 297 H (70-110) mg/dL 03/14/23 03/14/23 03/14/23 Range/Units 03:33 03:33 06:06 WBC (3.8-10.6) k/uL RBC (4.30-5.90) m/uL Hgb (13.0-17.5) gm/dL Hct (39.0-53.0) % MCHC (31.0-37.0) g/dL RDW (11.5-15.5) % Neutrophils # (1.3-7.7) k/uL Lymphocytes # (1.0-4.8) k/uL APTT 57.2 H (22.0-30.0) sec Sodium 155 H (137-145) mmol/L Potassium 3.2 L (3.5-5.1) mmol/L Chloride 117 H (98-107) mmol/L BUN 107 H* (9-20) mg/dL Creatinine 2.92 H (0.66-1.25) mg/dL Glucose 285 H (74-99) mg/dL POC Glucose (mg/dL) 276 H (70-110) mg/dL Assessment and Plan Assessment: bilateral airspace opacities suspicious for bilateral pneumonia, Versus pulmonary edema bilateral leg edema with stasis dermatitis multifactorial also due to heart failure normochromic, normocytic anemia chronic kidney disease stage III Diabetes mellitus Hypertension Hyperlipidemia History of osteoarthritis Hypothyroidism with very low TSH upper extremity tremor on mirapex restless leg syndrom Plan: continue with antibiotic ceftriaxone and Zithromax continue with IV Lasix Change his oral medication to IV Follow-up Culture results Bronchodilator and pulmonary consult cardiology consult patient on levothyroxine at 175 g. In view of low TSH hold levothyroxine today and to start 150 g tomorrow and recheck thyroid function test in 1-2 months Labs and medication were reviewed.. Continue same treatment. Continue with symptomatic treatment. Resume home medication. Monitor lytes and vitals. DVT and GI prophylaxis. Further recommendations depends on the clinical course of the patient DVT prophylaxis: Subcutaneous heparin GI Prophylaxis: Pepcid Prognosis is guarded
[2023-03-14 23:46] LABS: Glucose,Whole Blood 276 mg/dL (70-110)
[2023-03-15] MEDS ORDERED: IPRATROPIUM-ALBUTEROL 3 ML NEB INHALATION PRN ×2 (01:02→07:50)
[2023-03-15] MEDS ORDERED: FUROSEMIDE 10 MG/ML 10 ML VIAL IV STA (01:41)
[2023-03-15 02:11] LABS: ABG Base Excess 0.5 mmol/L; ABG HCO3 26 mmol/L (21-25); ABG Oxygen Saturation 99.5 % (94-97); ABG PCO2 44 mmHg (35-45); ABG PH 7.37 (7.35-7.45); ABG PO2 364 mmHg (83-108); ABG TCO2 27 mmol/L (19-24); Allen Test Performed? Yes
[2023-03-15] MEDS: HEPARIN SOD,PORK IN 0.45% NACL 25,000 UNIT in 0.45% NACL 1 250ML.BAG IV SCH (02:26)
--- NOTE | 2023-03-15 02:48 | P.PCN ---
Date of Procedure: 03/15/23 Preoperative Diagnosis: Acute hypoxemic respiratory failure requiring intubation Postoperative Diagnosis: Acute hypoxemic respiratory failure requiring intubation Procedure(s) Performed: Insertion of a right wrist radial arterial line Indications for Procedure: Continuous blood pressure monitoring and frequent blood draws Description of Procedure: Informed consent was obtained, and a procedural timeout was performed . The patient was placed in supine position. The right radial region was prepared in a sterile fashion, and a sterile drape was applied. The right radial artery was palpated, easily cannulated, and a guidewire was placed. A Cook catheter was inserted over the guidewire, and the guidewire was removed. There was good arterial blood flow, good arterial waveform, and no complications. The line was secured with using a 3-0 silk suture.
--- NOTE | 2023-03-15 04:24 | XR ---
EXAM: XR Chest, 1 View CLINICAL HISTORY: ITS.REASON XR Reason: Tube placement TECHNIQUE: Frontal view of the chest. COMPARISON: 03/14/2023 IMPRESSION: Feeding tube side port is near the GE junction. Recommend advancing 5 cm. ET tube terminates 7 cm from the sierra Worsened bilateral lung opacities.
[2023-03-15 06:13] LABS: Anisocytosis Slight; Basophils % (A) 0 %; Eosinophils % (A) 0 %; HCT 22.6 % (39.0-53.0); HGB 7.2 gm/dL (13.0-17.5); Hypochromasia Marked; Lymphocytes # (A) 0.4 k/uL (1.0-4.8); Lymphocytes % (A) 2 %; MCH 30.7 pg (25.0-35.0); MCHC 31.6 g/dL (31.0-37.0); MCV 97.1 fL (80.0-100.0); Mean Platelet Volume 13.4; Monocytes # (A) 0.5 k/uL (0-1.0); Monocytes % (A) 3 %; Neutrophils # (A) 17.9 k/uL (1.3-7.7); Neutrophils % (A) 95 %; Platelet Count 179 k/uL (150-450); RBC 2.33 m/uL (4.30-5.90); RDW 16.2 % (11.5-15.5); WBC 18.9 k/uL (3.8-10.6)
[2023-03-15 06:14] LABS: ABG Base Excess -0.2 mmol/L; ABG HCO3 25 mmol/L (21-25); ABG Oxygen Saturation 98.5 % (94-97); ABG PCO2 43 mmHg (35-45); ABG PH 7.38 (7.35-7.45); ABG PO2 140 mmHg (83-108); ABG TCO2 26 mmol/L (19-24); Allen Test Performed? Yes
[2023-03-15 06:29] LABS: African American GFR (CKD) 24 (>60 ml/min/1.73 sqM); Anion Gap 13 mmol/L; Blood Urea Nitrogen 97 mg/dL (9-20); Calcium 8.8 mg/dL (8.4-10.2); Carbon Dioxide 24 mmol/L (22-30); Chloride 119 mmol/L (98-107); Glucose 317 mg/dL (74-99); Non-African American GFR(CKD) 21 (>60 ml/min/1.73 sqM); Potassium 2.9 mmol/L (3.5-5.1); Sodium 156 mmol/L (137-145)
[2023-03-15 06:47] LABS: Glucose,Whole Blood 350 mg/dL (70-110)
--- NOTE | 2023-03-15 07:19 | P.PN ---
Subjective Progress Note Date: 03/15/23 Principal diagnosis: Paroxysmal atrial fibrillation This is a 77-year-old gentleman with coronary artery disease and congestive heart failure as well as chronic kidney disease and multiple comorbid conditions was admitted to the hospital with change in mental status and he was diagnosed with pneumonia. We consulted to see the patient because of bradycardia and also because of atrial fibrillation. Last night the patient went into respiratory failure and he was intubated. 03/15/2023 The patient was seen and evaluated this morning. He is currently intubated and he is on mechanical ventilation. Hemodynamically he is a stable as a matter of fact he is hypertensive. He is bradycardic with heart rate in the 40s and he is in sinus bradycardia. At the same time work from this morning showed hypokalemia and he continues to be in renal failure with creatinine of 2.8. He is on heparin IV for oral anticoagulation with a chest x-ray showed bilateral infiltrate definitely concerning for pneumonia. Assessment Change in mental status Pneumonia Paroxysmal atrial fibrillation. Currently the patient is in sinus rhythm Sinus bradycardia Severe electrolytes abnormalities Acute on chronic renal failure Multiple comorbid conditions Plan Correct electrolytes abnormalities Consider adding amlodipine to the current medical regimen for lowering the pressure and to trigger tachycardia Consider placing temporary pacemaker if we need to Obtain an echocardiogram was Doppler Continue heparin IV Follow-up with the patient Objective - Vital Signs Vital signs: Vital Signs Temp 98.9 F 03/15/23 04:00 Pulse 48 L 03/15/23 06:00 Resp 28 H 03/15/23 06:00 BP 122/54 03/15/23 03:00 Pulse Ox 97 03/15/23 06:00 FiO2 60 03/15/23 06:00 Intake & Output 03/14/23 03/15/23 03/15/23 18:59 06:59 18:59 Intake Total 2706.864 9304.498 Output Total 2440 1500 Balance -1250.218 -499.502 Weight 105.3 kg Intake: IV 720 460 NS TKO 20 60 Piperacillin-Tazobactam 3 300 100 .375 gm In Sodium Chloride 0.9% 100 ml @ 25 mls/hr IVPB Q8HR [facility] Rx# :[id number] Potassium Chloride 10 meq 400 300 In Water For Injection 1 100ml.bag @ 100 mls/hr IVPB Q1HR [facility] Rx#: [id number] Intake, IV Titration 469.782 540.498 Amount Dexmedetomidine/0.9% NaCl 226.710 57.280 (Pmx) 400 mcg In Empty Bag 1 bag @ 0.2 MCG/KG/HR 5.525 mls/hr IV .Q18H6M [facility] Rx#:[id number] Diltiazem 125 mg In 32.333 Sodium Chloride 0.9% 100 ml @ Per Protocol IV .Q0M [facility] Rx#:[id number] Heparin Sod,Pork in 0.45% 243.072 342.929 NaCl 25,000 unit In 0.45 % NaCl 1 250ml.bag @ 18 UNITS/KG/HR 19.71 mls/hr IV .[id number] [facility] Rx#: [id number] propofoL 1,000 mg In 107.956 Empty Bag 1 bag @ 15 MCG/ KG/MIN 9.945 mls/hr IV . Q10H4M [facility] Rx#:[id number] Output: Urine 2440 1500 Other: Voiding Method Indwelling Catheter Indwelling Catheter # Voids 1 ABP, PAP, CO, CI - Last Documented Arterial Blood Pressure 163/50 - Labs CBC & Chem 7: 03/15/23 05:45 03/15/23 05:45 Labs: Abnormal Lab Results - Last 24 Hours (Table) 03/14/23 03/14/23 03/14/23 Range/Units 09:28 09:28 09:28 WBC (3.8-10.6) k/uL RBC (4.30-5.90) m/uL Hgb (13.0-17.5) gm/dL Hct (39.0-53.0) % RDW (11.5-15.5) % APTT (22.0-30.0) sec ABG pO2 (83-108) mmHg ABG HCO3 (21-25) mmol/L ABG Total CO2 (19-24) mmol/L ABG O2 Saturation (94-97) % Sodium 157 H (137-145) mmol/L Potassium 2.8 L (3.5-5.1) mmol/L Chloride 119 H (98-107) mmol/L BUN 109 H* (9-20) mg/dL Creatinine 2.73 H (0.66-1.25) mg/dL Glucose 221 H (74-99) mg/dL POC Glucose (mg/dL) (70-110) mg/dL Magnesium 2.5 H (1.6-2.3) mg/dL Procalcitonin 2.84 H (0.02-0.09) ng/mL Urine Protein (Negative) Urine Glucose (UA) (Negative) Urine Blood (Negative) Amorphous Sediment (None) /hpf Urine Bacteria (None) /hpf Hyaline Casts (0-2) /lpf Urine Mucus (None) /hpf 03/14/23 03/14/23 03/14/23 Range/Units 11:38 12:14 17:30 WBC (3.8-10.6) k/uL RBC (4.30-5.90) m/uL Hgb (13.0-17.5) gm/dL Hct (39.0-53.0) % RDW (11.5-15.5) % APTT (22.0-30.0) sec ABG pO2 (83-108) mmHg ABG HCO3 (21-25) mmol/L ABG Total CO2 (19-24) mmol/L ABG O2 Saturation (94-97) % Sodium (137-145) mmol/L Potassium 3.0 L (3.5-5.1) mmol/L Chloride (98-107) mmol/L BUN (9-20) mg/dL Creatinine (0.66-1.25) mg/dL Glucose (74-99) mg/dL POC Glucose (mg/dL) 258 H (70-110) mg/dL Magnesium (1.6-2.3) mg/dL Procalcitonin (0.02-0.09) ng/mL Urine Protein 1+ H (Negative) Urine Glucose (UA) Trace H (Negative) Urine Blood Large H (Negative) Amorphous Sediment Few H (None) /hpf Urine Bacteria Rare H (None) /hpf Hyaline Casts 6 H (0-2) /lpf Urine Mucus Rare H (None) /hpf 03/14/23 03/14/23 03/15/23 Range/Units 17:36 23:44 02:10 WBC (3.8-10.6) k/uL RBC (4.30-5.90) m/uL Hgb (13.0-17.5) gm/dL Hct (39.0-53.0) % RDW (11.5-15.5) % APTT (22.0-30.0) sec ABG pO2 364 H (83-108) mmHg ABG HCO3 26 H (21-25) mmol/L ABG Total CO2 27 H (19-24) mmol/L ABG O2 Saturation 99.5 H (94-97) % Sodium (137-145) mmol/L Potassium (3.5-5.1) mmol/L Chloride (98-107) mmol/L BUN (9-20) mg/dL Creatinine (0.66-1.25) mg/dL Glucose (74-99) mg/dL POC Glucose (mg/dL) 278 H 276 H (70-110) mg/dL Magnesium (1.6-2.3) mg/dL Procalcitonin (0.02-0.09) ng/mL Urine Protein (Negative) Urine Glucose (UA) (Negative) Urine Blood (Negative) Amorphous Sediment (None) /hpf Urine Bacteria (None) /hpf Hyaline Casts (0-2) /lpf Urine Mucus (None) /hpf 03/15/23 03/15/23 03/15/23 Range/Units 05:45 05:45 05:45 WBC 18.9 H (3.8-10.6) k/uL RBC 2.33 L (4.30-5.90) m/uL Hgb 7.2 L (13.0-17.5) gm/dL Hct 22.6 L (39.0-53.0) % RDW 16.2 H (11.5-15.5) % APTT 135.2 H* (22.0-30.0) sec ABG pO2 (83-108) mmHg ABG HCO3 (21-25) mmol/L ABG Total CO2 (19-24) mmol/L ABG O2 Saturation (94-97) % Sodium 156 H (137-145) mmol/L Potassium 2.9 L (3.5-5.1) mmol/L Chloride 119 H (98-107) mmol/L BUN 97 H (9-20) mg/dL Creatinine 2.86 H (0.66-1.25) mg/dL Glucose 317 H (74-99) mg/dL POC Glucose (mg/dL) (70-110) mg/dL Magnesium (1.6-2.3) mg/dL Procalcitonin (0.02-0.09) ng/mL Urine Protein (Negative) Urine Glucose (UA) (Negative) Urine Blood (Negative) Amorphous Sediment (None) /hpf Urine Bacteria (None) /hpf Hyaline Casts (0-2) /lpf Urine Mucus (None) /hpf 03/15/23 03/15/23 Range/Units 06:20 06:46 WBC (3.8-10.6) k/uL RBC (4.30-5.90) m/uL Hgb (13.0-17.5) gm/dL Hct (39.0-53.0) % RDW (11.5-15.5) % APTT (22.0-30.0) sec ABG pO2 140 H (83-108) mmHg ABG HCO3 (21-25) mmol/L ABG Total CO2 26 H (19-24) mmol/L ABG O2 Saturation 98.5 H (94-97) % Sodium (137-145) mmol/L Potassium (3.5-5.1) mmol/L Chloride (98-107) mmol/L BUN (9-20) mg/dL Creatinine (0.66-1.25) mg/dL Glucose (74-99) mg/dL POC Glucose (mg/dL) 350 H (70-110) mg/dL Magnesium (1.6-2.3) mg/dL Procalcitonin (0.02-0.09) ng/mL Urine Protein (Negative) Urine Glucose (UA) (Negative) Urine Blood (Negative) Amorphous Sediment (None) /hpf Urine Bacteria (None) /hpf Hyaline Casts (0-2) /lpf Urine Mucus (None) /hpf
--- NOTE | 2023-03-15 07:19 | XR ---
EXAMINATION TYPE: XR chest 1V portable DATE OF EXAM: 03/15/2023 5:35 AM CLINICAL INDICATION:Male, 77 years old with history of Tube placement; [facility] COMPARISON: Chest radiographs from 03/14/2023 TECHNIQUE: XR chest 1V portable Frontal view of the chest. FINDINGS: Lungs/Pleura: Multifocal airspace opacities with improved aeration of the left lung.. No evidence of pneumothorax or pleural effusion. Pulmonary vascularity: Unremarkable. Heart/mediastinum: Cardiomediastinal silhouette is unremarkable. Musculoskeletal: No acute osseous pathology. Other findings: None Lines/Tubes: Endotracheal tube with distal tip 3.1 cm above the sierra. Nasogastric tube with side-port projecting over the distal esophagus. IMPRESSION: 1. Gastric tube with the distal esophagus advance 6.0 cm for optimal placement. 2. Persistent multifocal airspace opacities. Improved aeration of the left lung.
[2023-03-15] MEDS: INSULIN ASPART (NovoLOG) 100 UNIT/ML VIAL SQ SCH ×3 (07:28→16:59)
[2023-03-15] MEDS: methylPREDNISolone SOD SUCCI 125 MG/2 ML VIAL IV SCH ×3 (07:28→17:28)
[2023-03-15] MEDS: FORMOTEROL FUMARATE 20 MCG/2 ML NEBU INHALATION SCH ×2 (07:50→19:54)
[2023-03-15] MEDS: BUDESONIDE 1 MG/2 ML NEBU INHALATION SCH ×2 (07:50→19:54)
[2023-03-15] MEDS: IPRATROPIUM-ALBUTEROL 3 ML NEB INHALATION SCH ×4 (07:54→19:54)
[2023-03-15] MEDS: POTASSIUM CHLORIDE 10 MEQ in WATER FOR INJECTION 1 100ML.BAG IVPB SCH ×3 (08:13→11:27)
[2023-03-15] MEDS: CHLORHEXIDINE GLUCONATE 15 ML CUP MUCOUS MEM SCH ×2 (08:13→20:35)
[2023-03-15] MEDS: FAMOTIDINE 20 MG/2 ML VIAL IV SCH (08:13)
[2023-03-15] MEDS: LEVOTHYROXINE IVP 100 MCG/5 ML VIAL IV SCH (08:13)
[2023-03-15] MEDS: amLODIPine 2.5 MG TAB PO SCH (08:13)
[2023-03-15] MEDS: hydrALAZINE HCL 50 MG TAB PO SCH ×2 (08:13→16:31)
[2023-03-15] MEDS: HYDROPHILIC CREAM 180 GM TUBE TOPICAL SCH (08:14)
[2023-03-15] MEDS: PIPERACILLIN-TAZOBACTAM 3.375 GM in SODIUM CHLORIDE 0.9% 100 ML IVPB SCH ×2 (08:14→15:27)
[2023-03-15] MEDS: HYDROmorphone 1 MG/ML 1 ML SYRINGE IVP PRN ×2 (09:03→13:15)
--- NOTE | 2023-03-15 09:28 | P.PN ---
Subjective Progress Note Date: 03/15/23 On today's evaluation of 03/23/2023, I'm seeing the patient in the intensive care unit. At this point in time, the patient is intubated on a mechanical ventilator. Overnight, the patient became acutely hypoxic and more short of breath and he developed diffuse but the pulmonary infiltrates consistent with pneumonia and based on that the patient was intubated and placed on a mechanical ventilator. Note that this patient is 77 years of age. He has diabetes mellitus type 2, chronic kidney disease, hypothyroidism, COPD, hyperlipidemia and hypertension. He was also recently treated for cellulitis of lower extremity, discharged to [facility] for IV antibiotics through a PICC line in his right upper extremity and he received and completed the course of daptomycin. Discharged home to be readmitted for shortness of breath to our hospital on 03/08/2023. Note that the patient was being supported with BiPAP as various pressures. His proBNP level was elevated. His echocardiograms was recent showed a preserved LV function without any significant abnormalities. He was given bronchodilators. He was given IV Solu-Medrol. He was given IV Lasix. Another dose of Lasix was given to him by the nurse practitioner at 2:30 AM this morning. He has a Meneses catheter in place. Urine output is in order of 100 mL an hour. At this point in time, the patient remains on mechanical ventilator. He was quite a successful the mechanical ventilator and he was having frequent episodes of desaturation. He is on propofol running at 55 mcg/kg/m. I switched this patient's blood pressure control mode of mechanical ventilation and currently is on a pressure control of 12, rate of 26, PEEP of 12 with a FiO2 of 60%. His current pulse ox is 95%. He is on IV heparin and this was I believe initiated due to concerns of pulmonary embolism, on an empiric basis. The echoes at 18.9, hemoglobin is at 7.2, platelet count of 179, most recent blood gas showed a pH of 7.38 with a pCO2 of 43 and pO2 of 140. BUN is at 97 with a creatinine of 2.8, sodium level is at 156 and a potassium level is at 2.9. IV fluids are at KVO, 0.9. Objective - Vital Signs Vital signs: Vital Signs Temp 98.9 F 03/15/23 04:00 Pulse 52 L 03/15/23 08:15 Resp 23 03/15/23 07:00 BP 122/54 03/15/23 03:00 Pulse Ox 97 03/15/23 07:00 FiO2 60 03/15/23 07:47 Intake & Output 03/14/23 03/15/23 03/15/23 18:59 06:59 18:59 Intake Total 3334.846 4214.498 112.044 Output Total 2440 1500 35 Balance -1250.218 -499.502 77.044 Weight 105.3 kg Intake: IV 720 460 20 NS TKO 20 60 20 Piperacillin-Tazobactam 3 300 100 .375 gm In Sodium Chloride 0.9% 100 ml @ 25 mls/hr IVPB Q8HR [facility] Rx# :[id number] Potassium Chloride 10 meq 400 300 In Water For Injection 1 100ml.bag @ 100 mls/hr IVPB Q1HR [facility] Rx#: [id number] Intake, IV Titration 469.782 540.498 92.044 Amount Dexmedetomidine/0.9% NaCl 226.710 57.280 (Pmx) 400 mcg In Empty Bag 1 bag @ 0.2 MCG/KG/HR 5.525 mls/hr IV .Q18H6M [facility] Rx#:[id number] Diltiazem 125 mg In 32.333 Sodium Chloride 0.9% 100 ml @ Per Protocol IV .Q0M [facility] Rx#:[id number] Heparin Sod,Pork in 0.45% 243.072 342.929 0 NaCl 25,000 unit In 0.45 % NaCl 1 250ml.bag @ 18 UNITS/KG/HR 19.71 mls/hr IV .[id number] [facility] Rx#: [id number] propofoL 1,000 mg In 107.956 92.044 Empty Bag 1 bag @ 15 MCG/ KG/MIN 9.945 mls/hr IV . Q10H4M [facility] Rx#:[id number] Output: Urine 2440 1500 35 Other: Voiding Method Indwelling Catheter Indwelling Catheter # Voids 1 ABP, PAP, CO, CI - Last Documented Arterial Blood Pressure 164/51 - Exam Patient is currently intubated on a mechanical ventilator. Orogastric and o rotracheal tube are both in place. The patient is sedated with propofol. HEENT examination is grossly unremarkable. Neck supple. Full range of motion. No adenopathy thyromegaly or neck vein dis tention. Cardiovascular examination reveals regular rhythm rate. S1-S2 normal. No S3 or S4. No discernible murmur noted. Lungs reveal scattered rhonchi and crackles. Breath sounds equal. Breath sounds are equal bilaterally. No distinct wheezes noted. Abdomen soft bowel sounds are heard. No masses or tenderness. Extremities are intact. No cyanosis clubbing or edema. Skin is without rash or lesion. Neurologic examination is brief but nonfocal. - Labs CBC & Chem 7: 03/15/23 05:45 03/15/23 05:45 Labs: Abnormal Lab Results - Last 24 Hours (Table) 03/14/23 03/14/23 03/14/23 Range/Units 09:28 09:28 09:28 WBC (3.8-10.6) k/uL RBC (4.30-5.90) m/uL Hgb (13.0-17.5) gm/dL Hct (39.0-53.0) % RDW (11.5-15.5) % APTT (22.0-30.0) sec ABG pO2 (83-108) mmHg ABG HCO3 (21-25) mmol/L ABG Total CO2 (19-24) mmol/L ABG O2 Saturation (94-97) % Sodium 157 H (137-145) mmol/L Potassium 2.8 L (3.5-5.1) mmol/L Chloride 119 H (98-107) mmol/L BUN 109 H* (9-20) mg/dL Creatinine 2.73 H (0.66-1.25) mg/dL Glucose 221 H (74-99) mg/dL POC Glucose (mg/dL) (70-110) mg/dL Magnesium 2.5 H (1.6-2.3) mg/dL Procalcitonin 2.84 H (0.02-0.09) ng/mL Urine Protein (Negative) Urine Glucose (UA) (Negative) Urine Blood (Negative) Amorphous Sediment (None) /hpf Urine Bacteria (None) /hpf Hyaline Casts (0-2) /lpf Urine Mucus (None) /hpf 03/14/23 03/14/23 03/14/23 Range/Units 11:38 12:14 17:30 WBC (3.8-10.6) k/uL RBC (4.30-5.90) m/uL Hgb (13.0-17.5) gm/dL Hct (39.0-53.0) % RDW (11.5-15.5) % APTT (22.0-30.0) sec ABG pO2 (83-108) mmHg ABG HCO3 (21-25) mmol/L ABG Total CO2 (19-24) mmol/L ABG O2 Saturation (94-97) % Sodium (137-145) mmol/L Potassium 3.0 L (3.5-5.1) mmol/L Chloride (98-107) mmol/L BUN (9-20) mg/dL Creatinine (0.66-1.25) mg/dL Glucose (74-99) mg/dL POC Glucose (mg/dL) 258 H (70-110) mg/dL Magnesium (1.6-2.3) mg/dL Procalcitonin (0.02-0.09) ng/mL Urine Protein 1+ H (Negative) Urine Glucose (UA) Trace H (Negative) Urine Blood Large H (Negative) Amorphous Sediment Few H (None) /hpf Urine Bacteria Rare H (None) /hpf Hyaline Casts 6 H (0-2) /lpf Urine Mucus Rare H (None) /hpf 03/14/23 03/14/23 03/15/23 Range/Units 17:36 23:44 02:10 WBC (3.8-10.6) k/uL RBC (4.30-5.90) m/uL Hgb (13.0-17.5) gm/dL Hct (39.0-53.0) % RDW (11.5-15.5) % APTT (22.0-30.0) sec ABG pO2 364 H (83-108) mmHg ABG HCO3 26 H (21-25) mmol/L ABG Total CO2 27 H (19-24) mmol/L ABG O2 Saturation 99.5 H (94-97) % Sodium (137-145) mmol/L Potassium (3.5-5.1) mmol/L Chloride (98-107) mmol/L BUN (9-20) mg/dL Creatinine (0.66-1.25) mg/dL Glucose (74-99) mg/dL POC Glucose (mg/dL) 278 H 276 H (70-110) mg/dL Magnesium (1.6-2.3) mg/dL Procalcitonin (0.02-0.09) ng/mL Urine Protein (Negative) Urine Glucose (UA) (Negative) Urine Blood (Negative) Amorphous Sediment (None) /hpf Urine Bacteria (None) /hpf Hyaline Casts (0-2) /lpf Urine Mucus (None) /hpf 03/15/23 03/15/23 03/15/23 Range/Units 05:45 05:45 05:45 WBC 18.9 H (3.8-10.6) k/uL RBC 2.33 L (4.30-5.90) m/uL Hgb 7.2 L (13.0-17.5) gm/dL Hct 22.6 L (39.0-53.0) % RDW 16.2 H (11.5-15.5) % APTT 135.2 H* (22.0-30.0) sec ABG pO2 (83-108) mmHg ABG HCO3 (21-25) mmol/L ABG Total CO2 (19-24) mmol/L ABG O2 Saturation (94-97) % Sodium 156 H (137-145) mmol/L Potassium 2.9 L (3.5-5.1) mmol/L Chloride 119 H (98-107) mmol/L BUN 97 H (9-20) mg/dL Creatinine 2.86 H (0.66-1.25) mg/dL Glucose 317 H (74-99) mg/dL POC Glucose (mg/dL) (70-110) mg/dL Magnesium (1.6-2.3) mg/dL Procalcitonin (0.02-0.09) ng/mL Urine Protein (Negative) Urine Glucose (UA) (Negative) Urine Blood (Negative) Amorphous Sediment (None) /hpf Urine Bacteria (None) /hpf Hyaline Casts (0-2) /lpf Urine Mucus (None) /hpf 03/15/23 03/15/23 Range/Units 06:20 06:46 WBC (3.8-10.6) k/uL RBC (4.30-5.90) m/uL Hgb (13.0-17.5) gm/dL Hct (39.0-53.0) % RDW (11.5-15.5) % APTT (22.0-30.0) sec ABG pO2 140 H (83-108) mmHg ABG HCO3 (21-25) mmol/L ABG Total CO2 26 H (19-24) mmol/L ABG O2 Saturation 98.5 H (94-97) % Sodium (137-145) mmol/L Potassium (3.5-5.1) mmol/L Chloride (98-107) mmol/L BUN (9-20) mg/dL Creatinine (0.66-1.25) mg/dL Glucose (74-99) mg/dL POC Glucose (mg/dL) 350 H (70-110) mg/dL Magnesium (1.6-2.3) mg/dL Procalcitonin (0.02-0.09) ng/mL Urine Protein (Negative) Urine Glucose (UA) (Negative) Urine Blood (Negative) Amorphous Sediment (None) /hpf Urine Bacteria (None) /hpf Hyaline Casts (0-2) /lpf Urine Mucus (None) /hpf Assessment and Plan Plan: Acute hypoxemic respiratory failure, secondary to possible healthcare associated pneumonia, versus acute pulmonary edema, versus acute respiratory distress syndrome. Patient has developed diffuse bilateral pulmonary infiltrates. This could be cardiogenic versus noncardiac pulmonary edema. Patient failed BiPAP therapy and the patient is currently intubated on a mechanical ventilator. Astrid abdi this morning, he continued to have episodes of oxygen saturation and based on that, switch this patient had a pressure control mode of mechanical ventilation. Occupation accordingly has improved. Acute on chronic kidney disease, the acute component slightly improved Acute hypernatremia and his sodium level is currently at 156 Acute leukocytosis Bilateral lower extremity edema, and cellulitis, treated and recovered Elevated troponins, rule out non-ST segment elevation myocardial infarction. Anemia of chronic disease. Stage III chronic kidney disease. Type 2 diabetes mellitus. Benign essential hypertension. Dyslipidemia. Hypothyroidism. Benign prostatic hypertrophy. Obesity Plan Necessary ventilator changes were done and the patient will be kept on a pressure control mode of mechanical ventilation. The patient will need a bronchoscopy and a bronchial lavage regarding diffuse but support infiltrates, consider pneumonia Continue IV Zosyn IV Lasix to be started at 40 mg every 12 hours Start the patient on D5 water at the rate of 100 mL an hour No need for pressors at this point in time Initiate enteral feeding for nutritional support Echocardiogram was ordered for today and will completed Monitor the white cell count Monitor renal function Monitor urine output Condition is critically ill continue to follow and make further recommendations based on his progress. There is a critical care evaluation that was done in more than 30 minutes. Time with Patient: Greater than 30
[2023-03-15] MEDS ORDERED: DEXTROSE 5% IN WATER 1,000 ML IV ONE (09:29)
[2023-03-15] MEDS ORDERED: POTASSIUM BICARBONATE/CIT AC 20 MEQ TABLET.EFF PO ONE ×2 (10:15→17:24)
[2023-03-15] MEDS: FUROSEMIDE 10 MG/ML 4 ML VIAL IV SCH ×2 (10:24→20:35)
--- NOTE | 2023-03-15 10:24 | P.PN ---
Subjective Patient is seen in follow-up for acute kidney injury on chronic kidney disease. Renal function fairly stable. Intubated. Started on D5 W and IV Lasix this morning. Potassium being replaced. Not on vasopressors. Vital signs are stable. General: Resting in bed. HEENT: Intubated. LUNGS: Scattered rhonchi. HEART: Rate and Rhythm are regular. ABDOMEN: No distention. EXTREMITITES: 1+ edema. Objective - Vital Signs Vital signs: Vital Signs Temp 98.9 F 03/15/23 04:00 Pulse 52 L 03/15/23 08:15 Resp 23 03/15/23 07:00 BP 122/54 03/15/23 03:00 Pulse Ox 97 03/15/23 07:00 FiO2 60 03/15/23 07:47 Intake & Output 03/14/23 03/15/23 03/15/23 18:59 06:59 18:59 Intake Total 4859.512 7623.498 135.112 Output Total 2440 1500 35 Balance -1250.218 -499.502 100.112 Weight 105.3 kg Intake: IV 720 460 20 NS TKO 20 60 20 Piperacillin-Tazobactam 3 300 100 .375 gm In Sodium Chloride 0.9% 100 ml @ 25 mls/hr IVPB Q8HR [facility] Rx# :[id number] Potassium Chloride 10 meq 400 300 In Water For Injection 1 100ml.bag @ 100 mls/hr IVPB Q1HR [facility] Rx#: [id number] Intake, IV Titration 469.782 540.498 115.112 Amount Dexmedetomidine/0.9% NaCl 226.710 57.280 (Pmx) 400 mcg In Empty Bag 1 bag @ 0.2 MCG/KG/HR 5.525 mls/hr IV .Q18H6M [facility] Rx#:[id number] Diltiazem 125 mg In 32.333 Sodium Chloride 0.9% 100 ml @ Per Protocol IV .Q0M [facility] Rx#:[id number] Heparin Sod,Pork in 0.45% 243.072 342.929 23.068 NaCl 25,000 unit In 0.45 % NaCl 1 250ml.bag @ 18 UNITS/KG/HR 19.71 mls/hr IV .[id number] [facility] Rx#: [id number] propofoL 1,000 mg In 107.956 92.044 Empty Bag 1 bag @ 15 MCG/ KG/MIN 9.945 mls/hr IV . Q10H4M [facility] Rx#:[id number] Output: Urine 2440 1500 35 Other: Voiding Method Indwelling Catheter Indwelling Catheter # Voids 1 ABP, PAP, CO, CI - Last Documented Arterial Blood Pressure 164/51 - Labs CBC & Chem 7: 03/15/23 05:45 03/15/23 05:45 Labs: Abnormal Lab Results - Last 24 Hours (Table) 03/14/23 03/14/23 03/14/23 Range/Units 09:28 09:28 09:28 WBC (3.8-10.6) k/uL RBC (4.30-5.90) m/uL Hgb (13.0-17.5) gm/dL Hct (39.0-53.0) % RDW (11.5-15.5) % Neutrophils # (1.3-7.7) k/uL Lymphocytes # (1.0-4.8) k/uL APTT (22.0-30.0) sec ABG pO2 (83-108) mmHg ABG HCO3 (21-25) mmol/L ABG Total CO2 (19-24) mmol/L ABG O2 Saturation (94-97) % Sodium 157 H (137-145) mmol/L Potassium 2.8 L (3.5-5.1) mmol/L Chloride 119 H (98-107) mmol/L BUN 109 H* (9-20) mg/dL Creatinine 2.73 H (0.66-1.25) mg/dL Glucose 221 H (74-99) mg/dL POC Glucose (mg/dL) (70-110) mg/dL Magnesium 2.5 H (1.6-2.3) mg/dL Procalcitonin 2.84 H (0.02-0.09) ng/mL Urine Protein (Negative) Urine Glucose (UA) (Negative) Urine Blood (Negative) Amorphous Sediment (None) /hpf Urine Bacteria (None) /hpf Hyaline Casts (0-2) /lpf Urine Mucus (None) /hpf Ur Random Potassium (25.0-125.0) mmol/L 03/14/23 03/14/23 03/14/23 Range/Units 11:38 11:38 12:14 WBC (3.8-10.6) k/uL RBC (4.30-5.90) m/uL Hgb (13.0-17.5) gm/dL Hct (39.0-53.0) % RDW (11.5-15.5) % Neutrophils # (1.3-7.7) k/uL Lymphocytes # (1.0-4.8) k/uL APTT (22.0-30.0) sec ABG pO2 (83-108) mmHg ABG HCO3 (21-25) mmol/L ABG Total CO2 (19-24) mmol/L ABG O2 Saturation (94-97) % Sodium (137-145) mmol/L Potassium (3.5-5.1) mmol/L Chloride (98-107) mmol/L BUN (9-20) mg/dL Creatinine (0.66-1.25) mg/dL Glucose (74-99) mg/dL POC Glucose (mg/dL) 258 H (70-110) mg/dL Magnesium (1.6-2.3) mg/dL Procalcitonin (0.02-0.09) ng/mL Urine Protein 1+ H (Negative) Urine Glucose (UA) Trace H (Negative) Urine Blood Large H (Negative) Amorphous Sediment Few H (None) /hpf Urine Bacteria Rare H (None) /hpf Hyaline Casts 6 H (0-2) /lpf Urine Mucus Rare H (None) /hpf Ur Random Potassium 22.3 L (25.0-125.0) mmol/L 03/14/23 03/14/23 03/14/23 Range/Units 17:30 17:36 23:44 WBC (3.8-10.6) k/uL RBC (4.30-5.90) m/uL Hgb (13.0-17.5) gm/dL Hct (39.0-53.0) % RDW (11.5-15.5) % Neutrophils # (1.3-7.7) k/uL Lymphocytes # (1.0-4.8) k/uL APTT (22.0-30.0) sec ABG pO2 (83-108) mmHg ABG HCO3 (21-25) mmol/L ABG Total CO2 (19-24) mmol/L ABG O2 Saturation (94-97) % Sodium (137-145) mmol/L Potassium 3.0 L (3.5-5.1) mmol/L Chloride (98-107) mmol/L BUN (9-20) mg/dL Creatinine (0.66-1.25) mg/dL Glucose (74-99) mg/dL POC Glucose (mg/dL) 278 H 276 H (70-110) mg/dL Magnesium (1.6-2.3) mg/dL Procalcitonin (0.02-0.09) ng/mL Urine Protein (Negative) Urine Glucose (UA) (Negative) Urine Blood (Negative) Amorphous Sediment (None) /hpf Urine Bacteria (None) /hpf Hyaline Casts (0-2) /lpf Urine Mucus (None) /hpf Ur Random Potassium (25.0-125.0) mmol/L 03/15/23 03/15/23 03/15/23 Range/Units 02:10 05:45 05:45 WBC 18.9 H (3.8-10.6) k/uL RBC 2.33 L (4.30-5.90) m/uL Hgb 7.2 L (13.0-17.5) gm/dL Hct 22.6 L (39.0-53.0) % RDW 16.2 H (11.5-15.5) % Neutrophils # 17.9 H (1.3-7.7) k/uL Lymphocytes # 0.4 L (1.0-4.8) k/uL APTT 135.2 H* (22.0-30.0) sec ABG pO2 364 H (83-108) mmHg ABG HCO3 26 H (21-25) mmol/L ABG Total CO2 27 H (19-24) mmol/L ABG O2 Saturation 99.5 H (94-97) % Sodium (137-145) mmol/L Potassium (3.5-5.1) mmol/L Chloride (98-107) mmol/L BUN (9-20) mg/dL Creatinine (0.66-1.25) mg/dL Glucose (74-99) mg/dL POC Glucose (mg/dL) (70-110) mg/dL Magnesium (1.6-2.3) mg/dL Procalcitonin (0.02-0.09) ng/mL Urine Protein (Negative) Urine Glucose (UA) (Negative) Urine Blood (Negative) Amorphous Sediment (None) /hpf Urine Bacteria (None) /hpf Hyaline Casts (0-2) /lpf Urine Mucus (None) /hpf Ur Random Potassium (25.0-125.0) mmol/L 03/15/23 03/15/23 03/15/23 Range/Units 05:45 06:20 06:46 WBC (3.8-10.6) k/uL RBC (4.30-5.90) m/uL Hgb (13.0-17.5) gm/dL Hct (39.0-53.0) % RDW (11.5-15.5) % Neutrophils # (1.3-7.7) k/uL Lymphocytes # (1.0-4.8) k/uL APTT (22.0-30.0) sec ABG pO2 140 H (83-108) mmHg ABG HCO3 (21-25) mmol/L ABG Total CO2 26 H (19-24) mmol/L ABG O2 Saturation 98.5 H (94-97) % Sodium 156 H (137-145) mmol/L Potassium 2.9 L (3.5-5.1) mmol/L Chloride 119 H (98-107) mmol/L BUN 97 H (9-20) mg/dL Creatinine 2.86 H (0.66-1.25) mg/dL Glucose 317 H (74-99) mg/dL POC Glucose (mg/dL) 350 H (70-110) mg/dL Magnesium (1.6-2.3) mg/dL Procalcitonin (0.02-0.09) ng/mL Urine Protein (Negative) Urine Glucose (UA) (Negative) Urine Blood (Negative) Amorphous Sediment (None) /hpf Urine Bacteria (None) /hpf Hyaline Casts (0-2) /lpf Urine Mucus (None) /hpf Ur Random Potassium (25.0-125.0) mmol/L Assessment and Plan Plan: Assessment: 1. Acute kidney injury secondary to ATN Secondary to hemodynamic instability and infection. Creatinine stable at 2.86 today. Nonoliguric. 2. Chronic kidney disease stage IV with baseline creatinine 2-2.5. 3. Hypernatremia from free water diuresis and lack of oral water intake. 4. Hypokalemia from diuresis. 5. Acute hypoxic respiratory failure secondary to pneumonia and volume overload. 6. Pneumonia on antibiotics. Plan: D5W at 100 mL an hour started this morning. Maintain IV Lasix. Potassium being replaced. Recheck BMP this evening. Avoid nephrotoxins. D/c fleet enema. Wean FiO2. Continue to monitor renal function and urine output.
[2023-03-15 12:04] LABS: Glucose,Whole Blood 418 mg/dL (70-110)
[2023-03-15] MEDS: POTASSIUM BICARBONATE/CIT AC 20 MEQ TABLET.EFF NG-TUBE SCH ×2 (13:01→14:15)
--- NOTE | 2023-03-15 13:27 | P.PN ---
Subjective Progress Note Date: 03/15/23 77 years old male with past medical history of Diabetes Mellitus, Hyperlipidemia, Hypertension, Osteoarthritis, cervical spine decompression and fusion surgery. PCP is Dr. Blount patient was sent from our with for shortness of breathwith hypoxia and saturating 81. 82% on 4 L oxygen via nasal cannula. Right upper extremity PICC line patient last time he was discharged on daptomycin every 48 hours 14 da ys.patient finished treatment and his lower extremity cellulitis is improving patient currently on BiPAP, with oxygen saturation 97%. Afebrile. Labs showed leukocytosis of 14,000, hemoglobin 7.5 creatinine is elevated at 2.8 which is at baseline of 2.2-3.0 Troponin is elevated at 0.15, 0.13.proBNP 4460. TSH is low at 0.09 Urine analysis is not suspicious for infection. chest x-ray: confluent bilateral Multifocal airspace opacities patient is a started on ceftriaxone, Zithromax IV Lasix 03/13/2023 Patient is seen and evaluated in room at bedside; remains on BiPAP; patient went into respiratory distress during the night; stat ABGs were completed which revealed a pO2 of 103 and pCO2 of 41 - Patient is currently on BiPAP with FiO2 of 100% -- Vital signs are reviewed and remained stable Blood work reveals a WBC of 16.8, hemoglobin of 7, hematocrit 22.5 and platelet count of 182, sodium 154 cultures and 2.1, BUN/creatinine of 104/3.15 and blood glucose of 240 --Chest x-ray reveals diffuse bilateral infiltrates possibly diffuse pneumonia versus interstitial edema or acute respiratory distress syndrome - Patient remains on IV heparin for possible PE; V/Q scan cannot be completed due to unstable respiratory status -- Patient has been placed on IV fluids in form of D5 water for hypernatremia; we will monitor sodium levels closely Prognosis remains guarded 03/14/2023 Patient is seen and evaluated in room at bedside; transferred to ICU; patient had been agitated and restless and noncompliant with BiPAP resulting in worsening respiratory status -- Patient has been placed on Precedex and remains on BiPAP with settings of 16/8 and 80% Vital signs are reviewed with temperature of 98.4, pulse 59, respirations 17 and blood pressure of 164/68 White count is 22.4, hemoglobin 7.4, hematocrit 24.5, with a normal platelet count. Sodium 157, potassium 2.8, chlorides 119, CO2 26, BUN 109, and creatinine 2.73. Chest x-ray continues to show bilateral airspace disease, which may be on the basis of fluid, pneumonia, or acute respiratory distress syndrome. The patient's currently on IV heparin empirically. The patient's also receiving Zosyn. Heparin can be discontinued once PE is ruled out 03/15. Patient seen and examined. Labs done this morning showed WBC 18.9, hemoglobin 7.2, platelet count 179, sodium 156, potassium 2.9, BUN 97, creatinine 2.86. Patient was intubated overnight, currently on mechanical ventilation. Currently on propofol. REVIEW OF SYSTEMS: Cannot be obtained as patient is intubated PHYSICAL EXAMINATION: GENERAL: The patient is intubated HEENT: Pupils are round and equally reacting to light. EOMI. No scleral icterus. No conjunctival pallor. Normocephalic, atraumatic. No pharyngeal erythema. No thyromegaly. CARDIOVASCULAR: S1 and S2 present. No murmurs, rubs, or gallops. PULMONARY: Coarse Breath sounds bilaterally no wheeze ABDOMEN: Soft, nontender, nondistended, normoactive bowel sounds. No palpable organomegaly. MUSCULOSKELETAL: No joint swelling or deformity. EXTREMITIES: No cyanosis, clubbing, or pedal edema. NEUROLOGICAL: Gross neurological examination did not reveal any focal deficits. SKIN: No rashes. Assessment and plan Bacterial pneumonia Acute hypoxic respiratory failure Pulmonary edema ARDS Elevated troponin normochromic, normocytic anemia chronic kidney disease stage III Diabetes mellitus Hypertension Hyperlipidemia History of osteoarthritis Hypothyroidism with very low TSH upper extremity tremor on mirapex restless leg syndrom Plan: Monitor vital signs Monitor CBC Continue vent management per ICU Strict I's and O's, daily weights continue IV fluids in the form of D5 W continue IV Zosyn Monitor blood sugar levels, added Levemir 5 units twice a day and sliding scale insulin Cardiology following Nephrology following Critical care following Labs and medication were reviewed.. Continue same treatment. Continue with symptomatic treatment. Resume home medication. Monitor labs and vitals. DVT and GI prophylaxis. Further recommendations as per clinical course of the patient Dictation was produced using [employer] dictation software. please excuse any grammatical, word or spelling errors. Objective - Vital Signs Vital signs: Vital Signs Temp 98.9 F 03/15/23 04:00 Pulse 52 L 03/15/23 08:15 Resp 23 03/15/23 07:00 BP 122/54 03/15/23 03:00 Pulse Ox 97 03/15/23 07:00 FiO2 60 03/15/23 07:47 Intake & Output 03/14/23 03/15/23 03/15/23 18:59 06:59 18:59 Intake Total 3970.299 9345.498 112.044 Output Total 2440 1500 35 Balance -1250.218 -499.502 77.044 Weight 105.3 kg Intake: IV 720 460 20 NS TKO 20 60 20 Piperacillin-Tazobactam 3 300 100 .375 gm In Sodium Chloride 0.9% 100 ml @ 25 mls/hr IVPB Q8HR [facility] Rx# :[id number] Potassium Chloride 10 meq 400 300 In Water For Injection 1 100ml.bag @ 100 mls/hr IVPB Q1HR [facility] Rx#: [id number] Intake, IV Titration 469.782 540.498 92.044 Amount Dexmedetomidine/0.9% NaCl 226.710 57.280 (Pmx) 400 mcg In Empty Bag 1 bag @ 0.2 MCG/KG/HR 5.525 mls/hr IV .Q18H6M [facility] Rx#:[id number] Diltiazem 125 mg In 32.333 Sodium Chloride 0.9% 100 ml @ Per Protocol IV .Q0M [facility] Rx#:[id number] Heparin Sod,Pork in 0.45% 243.072 342.929 0 NaCl 25,000 unit In 0.45 % NaCl 1 250ml.bag @ 18 UNITS/KG/HR 19.71 mls/hr IV .[id number] [facility] Rx#: [id number] propofoL 1,000 mg In 107.956 92.044 Empty Bag 1 bag @ 15 MCG/ KG/MIN 9.945 mls/hr IV . Q10H4M [facility] Rx#:[id number] Output: Urine 2440 1500 35 Other: Voiding Method Indwelling Catheter Indwelling Catheter # Voids 1 ABP, PAP, CO, CI - Last Documented Arterial Blood Pressure 164/51 - Labs CBC & Chem 7: 03/15/23 05:45 03/15/23 12:00 Labs: Abnormal Lab Results - Last 24 Hours (Table) 10/07/0603/14/23 03/14/23 Range/Units 09:28 09:28 09:28 WBC (3.8-10.6) k/uL RBC (4.30-5.90) m/uL Hgb (13.0-17.5) gm/dL Hct (39.0-53.0) % RDW (11.5-15.5) % Neutrophils # (1.3-7.7) k/uL Lymphocytes # (1.0-4.8) k/uL APTT (22.0-30.0) sec ABG pO2 (83-108) mmHg ABG HCO3 (21-25) mmol/L ABG Total CO2 (19-24) mmol/L ABG O2 Saturation (94-97) % Sodium 157 H (137-145) mmol/L Potassium 2.8 L (3.5-5.1) mmol/L Chloride 119 H (98-107) mmol/L BUN 109 H* (9-20) mg/dL Creatinine 2.73 H (0.66-1.25) mg/dL Glucose 221 H (74-99) mg/dL POC Glucose (mg/dL) (70-110) mg/dL Magnesium 2.5 H (1.6-2.3) mg/dL Procalcitonin 2.84 H (0.02-0.09) ng/mL Urine Protein (Negative) Urine Glucose (UA) (Negative) Urine Blood (Negative) Amorphous Sediment (None) /hpf Urine Bacteria (None) /hpf Hyaline Casts (0-2) /lpf Urine Mucus (None) /hpf Ur Random Potassium (25.0-125.0) mmol/L 03/14/23 03/14/23 03/14/23 Range/Units 11:38 11:38 12:14 WBC (3.8-10.6) k/uL RBC (4.30-5.90) m/uL Hgb (13.0-17.5) gm/dL Hct (39.0-53.0) % RDW (11.5-15.5) % Neutrophils # (1.3-7.7) k/uL Lymphocytes # (1.0-4.8) k/uL APTT (22.0-30.0) sec ABG pO2 (83-108) mmHg ABG HCO3 (21-25) mmol/L ABG Total CO2 (19-24) mmol/L ABG O2 Saturation (94-97) % Sodium (137-145) mmol/L Potassium (3.5-5.1) mmol/L Chloride (98-107) mmol/L BUN (9-20) mg/dL Creatinine (0.66-1.25) mg/dL Glucose (74-99) mg/dL POC Glucose (mg/dL) 258 H (70-110) mg/dL Magnesium (1.6-2.3) mg/dL Procalcitonin (0.02-0.09) ng/mL Urine Protein 1+ H (Negative) Urine Glucose (UA) Trace H (Negative) Urine Blood Large H (Negative) Amorphous Sediment Few H (None) /hpf Urine Bacteria Rare H (None) /hpf Hyaline Casts 6 H (0-2) /lpf Urine Mucus Rare H (None) /hpf Ur Random Potassium 22.3 L (25.0-125.0) mmol/L 03/14/23 03/14/23 03/14/23 Range/Units 17:30 17:36 23:44 WBC (3.8-10.6) k/uL RBC (4.30-5.90) m/uL Hgb (13.0-17.5) gm/dL Hct (39.0-53.0) % RDW (11.5-15.5) % Neutrophils # (1.3-7.7) k/uL Lymphocytes # (1.0-4.8) k/uL APTT (22.0-30.0) sec ABG pO2 (83-108) mmHg ABG HCO3 (21-25) mmol/L ABG Total CO2 (19-24) mmol/L ABG O2 Saturation (94-97) % Sodium (137-145) mmol/L Potassium 3.0 L (3.5-5.1) mmol/L Chloride (98-107) mmol/L BUN (9-20) mg/dL Creatinine (0.66-1.25) mg/dL Glucose (74-99) mg/dL POC Glucose (mg/dL) 278 H 276 H (70-110) mg/dL Magnesium (1.6-2.3) mg/dL Procalcitonin (0.02-0.09) ng/mL Urine Protein (Negative) Urine Glucose (UA) (Negative) Urine Blood (Negative) Amorphous Sediment (None) /hpf Urine Bacteria (None) /hpf Hyaline Casts (0-2) /lpf Urine Mucus (None) /hpf Ur Random Potassium (25.0-125.0) mmol/L 03/15/23 03/15/23 03/15/23 Range/Units 02:10 05:45 05:45 WBC 18.9 H (3.8-10.6) k/uL RBC 2.33 L (4.30-5.90) m/uL Hgb 7.2 L (13.0-17.5) gm/dL Hct 22.6 L (39.0-53.0) % RDW 16.2 H (11.5-15.5) % Neutrophils # 17.9 H (1.3-7.7) k/uL Lymphocytes # 0.4 L (1.0-4.8) k/uL APTT 135.2 H* (22.0-30.0) sec ABG pO2 364 H (83-108) mmHg ABG HCO3 26 H (21-25) mmol/L ABG Total CO2 27 H (19-24) mmol/L ABG O2 Saturation 99.5 H (94-97) % Sodium (137-145) mmol/L Potassium (3.5-5.1) mmol/L Chloride (98-107) mmol/L BUN (9-20) mg/dL Creatinine (0.66-1.25) mg/dL Glucose (74-99) mg/dL POC Glucose (mg/dL) (70-110) mg/dL Magnesium (1.6-2.3) mg/dL Procalcitonin (0.02-0.09) ng/mL Urine Protein (Negative) Urine Glucose (UA) (Negative) Urine Blood (Negative) Amorphous Sediment (None) /hpf Urine Bacteria (None) /hpf Hyaline Casts (0-2) /lpf Urine Mucus (None) /hpf Ur Random Potassium (25.0-125.0) mmol/L 03/15/23 03/15/23 03/15/23 Range/Units 05:45 06:20 06:46 WBC (3.8-10.6) k/uL RBC (4.30-5.90) m/uL Hgb (13.0-17.5) gm/dL Hct (39.0-53.0) % RDW (11.5-15.5) % Neutrophils # (1.3-7.7) k/uL Lymphocytes # (1.0-4.8) k/uL APTT (22.0-30.0) sec ABG pO2 140 H (83-108) mmHg ABG HCO3 (21-25) mmol/L ABG Total CO2 26 H (19-24) mmol/L ABG O2 Saturation 98.5 H (94-97) % Sodium 156 H (137-145) mmol/L Potassium 2.9 L (3.5-5.1) mmol/L Chloride 119 H (98-107) mmol/L BUN 97 H (9-20) mg/dL Creatinine 2.86 H (0.66-1.25) mg/dL Glucose 317 H (74-99) mg/dL POC Glucose (mg/dL) 350 H (70-110) mg/dL Magnesium (1.6-2.3) mg/dL Procalcitonin (0.02-0.09) ng/mL Urine Protein (Negative) Urine Glucose (UA) (Negative) Urine Blood (Negative) Amorphous Sediment (None) /hpf Urine Bacteria (None) /hpf Hyaline Casts (0-2) /lpf Urine Mucus (None) /hpf Ur Random Potassium (25.0-125.0) mmol/L
[2023-03-15] MEDS ORDERED: CISATRACURIUM 2 MG/ML 5 ML VIAL IV ONE ×2 (15:42→16:02)
--- NOTE | 2023-03-15 16:08 | P.PCN ---
Date of Procedure: 03/15/23 Operative Findings: Preoperative Diagnosis: Bilateral pneumonia/airspace disease/consolidation Postoperative Diagnosis: Same Procedure(s) Performed: Flexible bronchoscopy, bronchial ALVEOLAR lavage of the right middle lobe, Anesthesia: MAC Surgeon: Doc Wallace Estimated Blood Loss (ml): 0 Pathology: other Condition: critical Disposition: ICU Operative Findings: This procedure was done in the intensive care unit. The patient was already intubated on a mechanical ventilator. The patient was placed on 100% FiO2 and the flexible bronchoscope was completed. Indication for the procedure is diffuse bilateral pulmonary infiltrates. Consider bilateral pneumonia versus cardiogenic pulmonary edema This procedure was done in the intensive care unit. A adapter was attached and orotracheal tube and following that a flexible bronchoscope was easily passed through the orotracheal tube and was advanced into the lower trachea. The tip of the orotracheal tube was seen about 2 cm above the sierra. Airway inspection was completed. The visualized airways included the distal trachea, bilateral mainstem bronchi, right upper lobe bronchus, bronchus intermedius, right middle lobe bronchus, right lower lobe bronchus, left mainstem bronchus, left upper lobe bronchus and left lobe bronchus. The various 10 segments on the right were inspected, the various 8 segments on the left were also inspected. The bronchoscope was wedged into the right middle lobe and the bronchial alveolar lavage was done. A total of 60 mL of saline was infused in approximately 30 mL was suctioned back without any major difficulties. Noted the rest or secretions were scant and there was no significant endobronchial abnormalities. No tumors. No lesions. The bronchoalveolar lavage was nonbloody. Therapeutic airway suctioning was done. qqqqThe rest or secretions were all suctioned out without any major difficulties. The flexible bronchoscope was removed and the patient was kept on a mechanical ventilator on sedatives. complications, no oxygen desaturation. the bronchial lavage will be sent for microbial cultures and analysis.
[2023-03-15 16:51] LABS: Glucose,Whole Blood 426 mg/dL (70-110)
[2023-03-15 17:14] LABS: African American GFR (CKD) 24 (>60 ml/min/1.73 sqM); Anion Gap 11 mmol/L; Blood Urea Nitrogen 100 mg/dL (9-20); Calcium 8.4 mg/dL (8.4-10.2); Carbon Dioxide 27 mmol/L (22-30); Chloride 117 mmol/L (98-107); Glucose 415 mg/dL (74-99); Non-African American GFR(CKD) 21 (>60 ml/min/1.73 sqM); Potassium 3.5 mmol/L (3.5-5.1); Sodium 155 mmol/L (137-145)
--- NOTE | 2023-03-15 18:00 | CA ---
Transthoracic Echo Report Name: Peyman Carter Age: 77 Gender: M : 1945 Exam Date: 03/15/2023 08:38 Exam Location: [facility] Ht (in): 69 Wt (lb): 232 Ordering Physician: Herbie Melchor MD ([id number]) Attending/Referring Phys: Rheumatology Specialist Sita Wilde RDCS Procedure CPT: Indications: DO order Cardiac Hx: Technical Quality: Contrast 1: Total Dose (mL): Contrast 2: Total Dose (mL): MEASUREMENTS (Male / Female) Normal Values 2D ECHO LV Diastolic Diameter PLAX 5.5 cm 4.2 - 5.9 / 3.9 - 5.3 cm LV Systolic Diameter PLAX 3.4 cm IVS Diastolic Thickness 1.2 cm 0.6 - 1.0 / 0.6 - 0.9 cm LVPW Diastolic Thickness 1.3 cm 0.6 - 1.0 / 0.6 - 0.9 cm LV Relative Wall Thickness 0.5 RV Internal Dim ED PLAX 3.1 cm LA Systolic Diameter LX 3.7 cm 3.0 - 4.0 / 2.7 - 3.8 cm LV Diastolic Volume MOD 4C 139.4 cm??? LV Systolic Volume MOD 4C 64.9 cm??? LV Ejection Fraction MOD 4C 53.4 % LV Cardiac Index MOD 4C 2169.5 cm???/min???m??? LV Diastolic Length 4C 10.4 cm LV Systolic Length 4C 8.4 cm LV Diastolic Volume MOD 2C 121.3 cm??? LV Systolic Volume MOD 2C 63.1 cm??? LV Ejection Fraction MOD 2C 48.0 % LV Cardiac Index MOD 2C 1694.4 cm???/min???m??? LV Diastolic Length 2C 9.1 cm LV Systolic Length 2C 7.8 cm LA Volume 53.6 cm??? 18 - 58 / 22 - 52 cm??? LA Volume Index 23.3 cm???/m??? 16 - 28 cm???/m??? M-MODE Aortic Root Diameter MM 3.4 cm MV E Point Septal Separation 0.3 cm AV Cusp Separation MM 2.0 cm DOPPLER MV Area PHT 2.2 cm??? Mitral E Point Velocity 119.8 cm/s Mitral A Point Velocity 110.2 cm/s Mitral E to A Ratio 1.1 MV Deceleration Time 348.5 ms MV E' Velocity 6.8 cm/s Mitral E to MV E' Ratio 17.6 TR Peak Velocity 320.3 cm/s TR Peak Gradient 41.0 mmHg Right Ventricular Systolic Press 55.5 mmHg FINDINGS Left Ventricle Left ventricular ejection fraction is estimated at 60-65 %. Left ventricular cavity size normal. Mildly increased septal wall thickness. Right Ventricle Normal right ventricular size. Severe pulmonary hypertension. Right ventricular systolic pressure estimated at 56 mm hg. Right Atrium Normal right atrial size. Left Atrium Normal left atrial size. Mitral Valve Structurally normal mitral valve. No evidence for mitral valve prolapse. Aortic Valve Aortic valve not well visualized. No aortic valve stenosis or regurgitation. Tricuspid Valve Tricuspid valve not well visualized. Mild tricuspid regurgitation. Pulmonic Valve Structurally normal pulmonic valve. No pulmonic regurgitation. Pericardium No pericardial effusion. Aorta Normal size aortic root and proximal ascending aorta. CONCLUSIONS Previewed by: Dr. Eduard Clemons MD (Electronically Signed) Final Date: 15 March 2023 17:59
[2023-03-15] MEDS: DEXTROSE 5% IN WATER 1,000 ML IV SCH (18:18)
[2023-03-15] MEDS ORDERED: INSULIN DETEMIR (LEVEMIR) 100 UNIT/ML SYR SQ SCH (21:00)
[2023-03-15 21:25] LABS: African American GFR (CKD) 24 (>60 ml/min/1.73 sqM); Anion Gap 10 mmol/L; Calcium 8.2 mg/dL (8.4-10.2); Carbon Dioxide 26 mmol/L (22-30); Chloride 115 mmol/L (98-107); Glucose 433 mg/dL (74-99); Non-African American GFR(CKD) 21 (>60 ml/min/1.73 sqM); Potassium 4.1 mmol/L (3.5-5.1); Sodium 151 mmol/L (137-145)
[2023-03-15 21:26] LABS: Blood Urea Nitrogen 102 mg/dL (9-20)
[2023-03-15 23:09] LABS: Glucose,Whole Blood 493 mg/dL (70-110)
[2023-03-15] MEDS ORDERED: DEXTROSE 50% SYRINGE 50 ML IVP PRN ×2 (23:28)
[2023-03-15 23:54] LABS: Glucose,Whole Blood 484 mg/dL (70-110)
[2023-03-15] MEDS: INSULIN REGULAR 100 UNIT in SODIUM CHLORIDE 0.9% 100 ML IV SCH (23:54)
[2023-03-16] MEDS: methylPREDNISolone SOD SUCCI 125 MG/2 ML VIAL IV SCH ×2 (00:02→06:07)
[2023-03-16] MEDS: PIPERACILLIN-TAZOBACTAM 3.375 GM in SODIUM CHLORIDE 0.9% 100 ML IVPB SCH ×4 (00:03→23:24)
[2023-03-16] MEDS: IPRATROPIUM-ALBUTEROL 3 ML NEB INHALATION SCH ×6 (00:07→20:31)
[2023-03-16] MEDS: bisacodyL 10 MG SUPP RECTAL PRN (00:21)
[2023-03-16 01:02] LABS: Glucose,Whole Blood 497 mg/dL (70-110)
[2023-03-16 01:23] LABS: Appearance,BF Clumped (Clear); RBC, Body Fluid 3150 /UL (0-2000)
[2023-03-16 02:08] LABS: Glucose,Whole Blood 490 mg/dL (70-110)
[2023-03-16] MEDS: DEXTROSE 5% IN WATER 1,000 ML IV SCH ×2 (02:09→12:13)
[2023-03-16 02:59] LABS: Glucose,Whole Blood 482 mg/dL (70-110)
[2023-03-16 04:13] LABS: Glucose,Whole Blood 468 mg/dL (70-110)
[2023-03-16 04:27] LABS: Anion Gap 14 mmol/L; Carbon Dioxide 23 mmol/L (22-30); Chloride 111 mmol/L (98-107); Glucose 443 mg/dL (74-99); Potassium 3.7 mmol/L (3.5-5.1); Sodium 148 mmol/L (137-145)
[2023-03-16 04:28] LABS: ALT 18 U/L (4-49); AST 11 U/L (17-59); African American GFR (CKD) 22 (>60 ml/min/1.73 sqM); Albumin 2.3 g/dL (3.5-5.0); Alkaline Phosphatase 142 U/L (38-126); Calcium 8.1 mg/dL (8.4-10.2); Non-African American GFR(CKD) 19 (>60 ml/min/1.73 sqM); Total Bilirubin 0.4 mg/dL (0.2-1.3); Total Protein 4.9 g/dL (6.3-8.2)
[2023-03-16 04:31] LABS: Blood Urea Nitrogen 105 mg/dL (9-20)
[2023-03-16 05:04] LABS: Anisocytosis Slight; Basophils % (A) 0 %; Eosinophils % (A) 0 %; HCT 22.4 % (39.0-53.0); Hypochromasia Marked; Lymphocytes # (A) 0.5 k/uL (1.0-4.8); Lymphocytes % (A) 3 %; MCH 30.3 pg (25.0-35.0); MCHC 30.2 g/dL (31.0-37.0); MCV 100.4 fL (80.0-100.0); Macrocytosis Slight; Mean Platelet Volume 13.9; Monocytes # (A) 0.3 k/uL (0-1.0); Monocytes % (A) 2 %; Neutrophils # (A) 14.1 k/uL (1.3-7.7); Neutrophils % (A) 94 %; Platelet Count 144 k/uL (150-450); RBC 2.23 m/uL (4.30-5.90); RDW 16.6 % (11.5-15.5)
[2023-03-16 05:09] LABS: HGB 6.8 gm/dL (13.0-17.5)
[2023-03-16 05:21] LABS: Glucose,Whole Blood 448 mg/dL (70-110)
[2023-03-16 05:44] LABS: ABG Base Excess -1.2 mmol/L; ABG HCO3 25 mmol/L (21-25); ABG Oxygen Saturation 99.2 % (94-97); ABG PCO2 51 mmHg (35-45); ABG PO2 207 mmHg (83-108); ABG TCO2 27 mmol/L (19-24); Allen Test Performed? Yes
[2023-03-16] MEDS: INSULIN REGULAR 100 UNIT in SODIUM CHLORIDE 0.9% 100 ML IV SCH ×4 (05:51→15:11)
[2023-03-16] MEDS ORDERED: POTASSIUM BICARBONATE/CIT AC 20 MEQ TABLET.EFF PO ONE (05:56)
[2023-03-16 06:18] LABS: Glucose,Whole Blood 428 mg/dL (70-110)
[2023-03-16] MEDS ORDERED: INSULIN DETEMIR (LEVEMIR) 100 UNIT/ML SYR SQ SCH (07:00)
[2023-03-16 07:06] LABS: Glucose,Whole Blood 400 mg/dL (70-110)
--- NOTE | 2023-03-16 07:20 | P.PN ---
Subjective Progress Note Date: 03/16/23 Principal diagnosis: Paroxysmal atrial fibrillation This is a 77-year-old gentleman with coronary artery disease and congestive heart failure as well as chronic kidney disease and multiple comorbid conditions was admitted to the hospital with change in mental status and he was diagnosed with pneumonia. We consulted to see the patient because of bradycardia and also because of atrial fibrillation. Last night the patient went into respiratory failure and he was intubated. 03/15/2023 The patient was seen and evaluated this morning. He is currently intubated and he is on mechanical ventilation. Hemodynamically he is a stable as a matter of fact he is hypertensive. He is bradycardic with heart rate in the 40s and he is in sinus bradycardia. At the same time work from this morning showed hypokalemia and he continues to be in renal failure with creatinine of 2.8. He is on heparin IV for oral anticoagulation with a chest x-ray showed bilateral infiltrate definitely concerning for pneumonia. March 162022 The patient was seen and evaluated this morning. He continues to be intubated on mechanical ventilation. Hemodynamically he is a stable beside bradycardia with heart rate in the 50s. His hemoglobin drop to below 7 and currently is in process of receiving blood. For that reason heparin was stopped. He is on Lasix per nephrology service. Creatinine is 3 this morning. Examination is remarkable for regular rhythm with diminished breathing sounds b ilaterally and bilateral lower extremity Assessment Change in mental status Pneumonia Paroxysmal atrial fibrillation. Currently the patient is in sinus rhythm Sinus bradycardia Severe electrolytes abnormalities Acute on chronic renal failure Multiple comorbid conditions Anemia Plan Agree about stop the heparin at this point Continue monitor the hemoglobin Hold any oral anticoagulation Monitor the kidney function and electrolytes Follow-up with the patient Objective - Vital Signs Vital signs: Vital Signs Temp 97.4 F L 03/16/23 04:00 Pulse 52 L 03/16/23 07:00 Resp 19 03/16/23 07:00 BP 111/52 03/16/23 07:00 Pulse Ox 98 03/16/23 07:00 FiO2 50 03/16/23 05:48 Intake & Output 03/15/23 03/16/23 03/16/23 18:59 06:59 18:59 Intake Total 2806.333 2361.957 146.52 Output Total 1075 195 20 Balance 5654.101 1312.957 126.52 Weight 105.3 kg 112.4 kg Intake: IV 1620 1650 100 Dextrose 5% in Water 1, 700 100 000 ml @ 100 mls/hr IV . Q10H [facility] Rx#:[id number] Dextrose 5% in Water 1, 1100 750 000 ml @ 150 mls/hr IV . Q6H40M [facility] Rx#:[id number] NS TKO 120 100 Piperacillin-Tazobactam 3 200 100 .375 gm In Sodium Chloride 0.9% 100 ml @ 25 mls/hr IVPB Q8HR [facility] Rx# :[id number] Potassium Chloride 10 meq 200 In Water For Injection 1 100ml.bag @ 100 mls/hr IVPB Q1HR [facility] Rx#: [id number] Intake, IV Titration 436.333 468.957 23.52 Amount Heparin Sod,Pork in 0.45% 23.068 NaCl 25,000 unit In 0.45 % NaCl 1 250ml.bag @ 18 UNITS/KG/HR 19.71 mls/hr IV .P10G72A [facility] Rx#: [id number] Insulin Regular 100 unit 94.533 23.52 In Sodium Chloride 0.9% 100 ml @ Titrate IV .Q0M [facility] Rx#:[id number] propofoL 1,000 mg In 413.265 374.424 Empty Bag 1 bag @ 15 MCG/ KG/MIN 9.945 mls/hr IV . Q10H4M [facility] Rx#:[id number] Tube Feeding 80 183 23 Other 670 60 Output: Urine 1075 195 20 Other: Voiding Method Indwelling Catheter Indwelling Catheter ABP, PAP, CO, CI - Last Documented Arterial Blood Pressure 147/44 - Labs CBC & Chem 7: 03/16/23 04:05 03/16/23 04:05 Labs: Abnormal Lab Results - Last 24 Hours (Table) 03/12/23 03/14/23 03/15/23 Range/Units 12:53 11:38 05:45 WBC (3.8-10.6) k/uL RBC (4.30-5.90) m/uL Hgb (13.0-17.5) gm/dL Hct (39.0-53.0) % MCV (80.0-100.0) fL MCHC (31.0-37.0) g/dL RDW (11.5-15.5) % Plt Count (150-450) k/uL Neutrophils # 17.9 H (1.3-7.7) k/uL Lymphocytes # 0.4 L (1.0-4.8) k/uL ABG pH (7.35-7.45) ABG pCO2 (35-45) mmHg ABG pO2 (83-108) mmHg ABG Total CO2 (19-24) mmol/L ABG O2 Saturation (94-97) % Sodium (137-145) mmol/L Chloride (98-107) mmol/L BUN (9-20) mg/dL Creatinine (0.66-1.25) mg/dL Glucose (74-99) mg/dL POC Glucose (mg/dL) (70-110) mg/dL Calcium (8.4-10.2) mg/dL AST (17-59) U/L Alkaline Phosphatase (38-126) U/L Total Protein (6.3-8.2) g/dL Albumin (3.5-5.0) g/dL Total T4 3.9 L (4.5 - 10.9) ug/dL Ur Random Potassium 22.3 L (25.0-125.0) mmol/L Fluid Appearance (Clear) Crossmatch 03/15/23 03/15/23 03/15/23 Range/Units 12:02 16:00 16:50 WBC (3.8-10.6) k/uL RBC (4.30-5.90) m/uL Hgb (13.0-17.5) gm/dL Hct (39.0-53.0) % MCV (80.0-100.0) fL MCHC (31.0-37.0) g/dL RDW (11.5-15.5) % Plt Count (150-450) k/uL Neutrophils # (1.3-7.7) k/uL Lymphocytes # (1.0-4.8) k/uL ABG pH (7.35-7.45) ABG pCO2 (35-45) mmHg ABG pO2 (83-108) mmHg ABG Total CO2 (19-24) mmol/L ABG O2 Saturation (94-97) % Sodium (137-145) mmol/L Chloride (98-107) mmol/L BUN (9-20) mg/dL Creatinine (0.66-1.25) mg/dL Glucose (74-99) mg/dL POC Glucose (mg/dL) 418 H 426 H (70-110) mg/dL Calcium (8.4-10.2) mg/dL AST (17-59) U/L Alkaline Phosphatase (38-126) U/L Total Protein (6.3-8.2) g/dL Albumin (3.5-5.0) g/dL Total T4 (4.5 - 10.9) ug/dL Ur Random Potassium (25.0-125.0) mmol/L Fluid Appearance Clumped A (Clear) Crossmatch 03/15/23 03/15/23 03/15/23 Range/Units 16:51 21:00 23:08 WBC (3.8-10.6) k/uL RBC (4.30-5.90) m/uL Hgb (13.0-17.5) gm/dL Hct (39.0-53.0) % MCV (80.0-100.0) fL MCHC (31.0-37.0) g/dL RDW (11.5-15.5) % Plt Count (150-450) k/uL Neutrophils # (1.3-7.7) k/uL Lymphocytes # (1.0-4.8) k/uL ABG pH (7.35-7.45) ABG pCO2 (35-45) mmHg ABG pO2 (83-108) mmHg ABG Total CO2 (19-24) mmol/L ABG O2 Saturation (94-97) % Sodium 155 H 151 H (137-145) mmol/L Chloride 117 H 115 H (98-107) mmol/L BUN 100 H 102 H* (9-20) mg/dL Creatinine 2.81 H 2.87 H (0.66-1.25) mg/dL Glucose 415 H 433 H (74-99) mg/dL POC Glucose (mg/dL) 493 H (70-110) mg/dL Calcium 8.2 L (8.4-10.2) mg/dL AST (17-59) U/L Alkaline Phosphatase (38-126) U/L Total Protein (6.3-8.2) g/dL Albumin (3.5-5.0) g/dL Total T4 (4.5 - 10.9) ug/dL Ur Random Potassium (25.0-125.0) mmol/L Fluid Appearance (Clear) Crossmatch 03/15/23 03/16/23 03/16/23 Range/Units 23:52 01:00 02:06 WBC (3.8-10.6) k/uL RBC (4.30-5.90) m/uL Hgb (13.0-17.5) gm/dL Hct (39.0-53.0) % MCV (80.0-100.0) fL MCHC (31.0-37.0) g/dL RDW (11.5-15.5) % Plt Count (150-450) k/uL Neutrophils # (1.3-7.7) k/uL Lymphocytes # (1.0-4.8) k/uL ABG pH (7.35-7.45) ABG pCO2 (35-45) mmHg ABG pO2 (83-108) mmHg ABG Total CO2 (19-24) mmol/L ABG O2 Saturation (94-97) % Sodium (137-145) mmol/L Chloride (98-107) mmol/L BUN (9-20) mg/dL Creatinine (0.66-1.25) mg/dL Glucose (74-99) mg/dL POC Glucose (mg/dL) 484 H 497 H 490 H (70-110) mg/dL Calcium (8.4-10.2) mg/dL AST (17-59) U/L Alkaline Phosphatase (38-126) U/L Total Protein (6.3-8.2) g/dL Albumin (3.5-5.0) g/dL Total T4 (4.5 - 10.9) ug/dL Ur Random Potassium (25.0-125.0) mmol/L Fluid Appearance (Clear) Crossmatch 03/16/23 03/16/23 03/16/23 Range/Units 02:58 04:05 04:05 WBC 15.0 H (3.8-10.6) k/uL RBC 2.23 L (4.30-5.90) m/uL Hgb 6.8 L* (13.0-17.5) gm/dL Hct 22.4 L (39.0-53.0) % MCV 100.4 H (80.0-100.0) fL MCHC 30.2 L (31.0-37.0) g/dL RDW 16.6 H (11.5-15.5) % Plt Count 144 L (150-450) k/uL Neutrophils # 14.1 H (1.3-7.7) k/uL Lymphocytes # 0.5 L (1.0-4.8) k/uL ABG pH (7.35-7.45) ABG pCO2 (35-45) mmHg ABG pO2 (83-108) mmHg ABG Total CO2 (19-24) mmol/L ABG O2 Saturation (94-97) % Sodium 148 H (137-145) mmol/L Chloride 111 H (98-107) mmol/L BUN 105 H* (9-20) mg/dL Creatinine 3.00 H (0.66-1.25) mg/dL Glucose 443 H (74-99) mg/dL POC Glucose (mg/dL) 482 H (70-110) mg/dL Calcium 8.1 L (8.4-10.2) mg/dL AST 11 L (17-59) U/L Alkaline Phosphatase 142 H (38-126) U/L Total Protein 4.9 L (6.3-8.2) g/dL Albumin 2.3 L (3.5-5.0) g/dL Total T4 (4.5 - 10.9) ug/dL Ur Random Potassium (25.0-125.0) mmol/L Fluid Appearance (Clear) Crossmatch 03/16/23 03/16/23 03/16/23 Range/Units 04:12 05:17 05:18 WBC (3.8-10.6) k/uL RBC (4.30-5.90) m/uL Hgb (13.0-17.5) gm/dL Hct (39.0-53.0) % MCV (80.0-100.0) fL MCHC (31.0-37.0) g/dL RDW (11.5-15.5) % Plt Count (150-450) k/uL Neutrophils # (1.3-7.7) k/uL Lymphocytes # (1.0-4.8) k/uL ABG pH (7.35-7.45) ABG pCO2 (35-45) mmHg ABG pO2 (83-108) mmHg ABG Total CO2 (19-24) mmol/L ABG O2 Saturation (94-97) % Sodium (137-145) mmol/L Chloride (98-107) mmol/L BUN (9-20) mg/dL Creatinine (0.66-1.25) mg/dL Glucose (74-99) mg/dL POC Glucose (mg/dL) 468 H 448 H (70-110) mg/dL Calcium (8.4-10.2) mg/dL AST (17-59) U/L Alkaline Phosphatase (38-126) U/L Total Protein (6.3-8.2) g/dL Albumin (3.5-5.0) g/dL Total T4 (4.5 - 10.9) ug/dL Ur Random Potassium (25.0-125.0) mmol/L Fluid Appearance (Clear) Crossmatch See Detail 03/16/23 03/16/23 03/16/23 Range/Units 05:40 06:16 07:04 WBC (3.8-10.6) k/uL RBC (4.30-5.90) m/uL Hgb (13.0-17.5) gm/dL Hct (39.0-53.0) % MCV (80.0-100.0) fL MCHC (31.0-37.0) g/dL RDW (11.5-15.5) % Plt Count (150-450) k/uL Neutrophils # (1.3-7.7) k/uL Lymphocytes # (1.0-4.8) k/uL ABG pH 7.30 L (7.35-7.45) ABG pCO2 51 H (35-45) mmHg ABG pO2 207 H (83-108) mmHg ABG Total CO2 27 H (19-24) mmol/L ABG O2 Saturation 99.2 H (94-97) % Sodium (137-145) mmol/L Chloride (98-107) mmol/L BUN (9-20) mg/dL Creatinine (0.66-1.25) mg/dL Glucose (74-99) mg/dL POC Glucose (mg/dL) 428 H 400 H (70-110) mg/dL Calcium (8.4-10.2) mg/dL AST (17-59) U/L Alkaline Phosphatase (38-126) U/L Total Protein (6.3-8.2) g/dL Albumin (3.5-5.0) g/dL Total T4 (4.5 - 10.9) ug/dL Ur Random Potassium (25.0-125.0) mmol/L Fluid Appearance (Clear) Crossmatch Microbiology - Last 24 Hours (Table) 03/15/23 01:20 Gram Stain - Preliminary Sputum
--- NOTE | 2023-03-16 08:19 | P.CONS ---
History of Present Illness - Reason for Consult Consult date: 03/15/23 Pneumonia, sepsis Requesting physician: Octavio Alex - Chief Complaint Increasing shortness of breath x 2 days - History of Present Illness Patient is a 77-year-old male with a past medical his significant for diabetes mellitus hypertension hyperlipidemia prostate disorder presenting to the hospital 8 days ago on 03/07/2023 for evaluation of increasing shortness of breath weakness and mental status changes patient on presentation to the hospital did have a fever of 101 degrees Fahrenheit and the patient was febrile for the next 2 days subsequently fever has resolved patient did have a elevated vital of 15,000 which went up to 22,000 as of yesterday no cultures has been done during this hospital stay patient did have a chest x-ray cardiomegaly with diffuse bilateral airspace disease consolidation may be minimally improved in the interval patient care transferred to the ICU yesterday as the patient become agitated and restless and noncompliant with the BiPAP with worsening respiratory status and subsequently patient got intubated overnight chest x-ray head shows bilateral airspace disease patient was started on Zosyn infectious disease was consulted this morning for sepsis and pneumonia patient is currently hemodynamically stable not requiring any pressor support most information has been obtained from review the chart talking nursing staff the patient debated on the vent and unable to provide any history Review of Systems Positive points has been mentioned in HPI complete review could not be obtained because the patient is intubated on the vent Past Medical History Past Medical History: Cancer, Diabetes Mellitus, Hyperlipidemia, Hypertension, Osteoarthritis (OA), Prostate Disorder, Renal Disease, Thyroid Disorder Additional Past Medical History / Comment(s): Falls at home 02/13/23. skin cancer, neuropathy , restless legs History of Any Multi-Drug Resistant Organisms: None Reported Past Surgical History: Orthopedic Surgery Additional Past Surgical History / Comment(s): sinus sx. cancer removed lt ear. colonoscopy , 07-07-17 anterior cervical decompression/discectomy/fusion c3-4, c4-5 Past Anesthesia/Blood Transfusion Reactions: No Reported Reaction Past Psychological History: Anxiety, Depression Smoking Status: Former smoker Past Alcohol Use History: None Reported Past Drug Use History: None Reported - Past Family History Father Additional Family Medical History / Comment(s): aortic aneurysm Mother Family Medical History: Cancer Additional Family Medical History / Comment(s): pancreas cancer Medications and Allergies Home Medications Medication Instructions Recorded Confirmed Type Finasteride [Proscar] 5 mg PO DAILY@0800 05/17/17 03/08/23 History allopurinoL [Zyloprim] 300 mg PO HS 05/17/17 03/08/23 History Pramipexole [Mirapex] 1 mg PO Q8HR@0600,1400,2200 02/17/21 03/08/23 History Sertraline [Zoloft] 50 mg PO BID@0800,2100 02/17/21 03/08/23 History Aspirin 81 mg PO DAILY@1200 07/09/21 03/08/23 History Cholecalciferol [Vitamin D3 (25 25 mcg PO DAILY@1200 02/02/22 03/08/23 History Mcg = 1000 Iu)] amLODIPine [Norvasc] 5 mg PO BID@0800,1700 02/02/22 03/08/23 History hydrALAZINE HCL [Apresoline] 100 mg PO BID@0800,1700 02/02/22 03/08/23 History Famotidine [Pepcid] 20 mg PO DAILY@0600 02/13/23 03/08/23 History Ferrous Sulfate [Iron (65 MG 325 mg PO DAILY@1200 02/13/23 03/08/23 History Elemental)] Levothyroxine Sodium [Synthroid] 175 mcg PO DAILY@0600 02/13/23 03/08/23 History Tamsulosin HCl [Flomax] 0.4 mg PO HS 02/13/23 03/08/23 History carvediloL [Coreg] 12.5 mg PO BID@0800,1700 02/13/23 03/08/23 History DAPTOmycin [Cubicin] 350 mg IVPB Q48H 14 Days #7 each 02/22/23 03/08/23 Rx HYDROcodone/APAP 10-325MG [[place] 1 tab PO TID PRN #6 tab 02/22/23 03/08/23 Rx 10-325] Acetaminophen [Tylenol] 650 mg PO Q4H PRN 03/08/23 03/08/23 History Darbepoetin Amrit [Aranesp] 40 mcg SQ FR@1200 03/08/23 03/08/23 History Heparin Sodium,Porcine (1 ml) 5,000 unit SQ Q8HR@0600,1400,2200 03/08/23 03/08/23 History [Heparin Sodium] INSULIN ASPART (NovoLOG) [NovoLOG See Protocol SQ ACHS 03/08/23 03/08/23 History (formulary)] Ipratropium-Albuterol Nebulize 3 ml INHALATION RT-Q6H PRN 03/08/23 03/08/23 Hist ory [Duoneb 0.5 mg-3 mg/3 ml Soln] Magnesium Hydroxide [Milk of 7,200 mg PO Q2D PRN 03/08/23 03/08/23 History Magnesia Concentrate] Na Phos,M-B/Na Phos,Di-Ba [Fleet 133 ml RECTAL DAILY PRN 03/08/23 03/08/23 History Adult] Nystatin 100,000 Unit/gm Powd 1 applic TOPICAL BID 03/08/23 03/08/23 History [Mycostatin Powder] Pregabalin [Lyrica] 150 mg PO Q12HR@0800,2100 03/08/23 03/08/23 History SILVER sulfADIAZINE Cream 1 applic TOPICAL DAILY 03/08/23 03/08/23 History [Silvadene 1% Cream] Sennosides [Senokot] 8.6 mg PO DAILY@0800 03/08/23 03/08/23 History Sodium Bicarbonate Tab 650 mg PO BID@0800,1700 03/08/23 03/08/23 History bisacodyL [Dulcolax] 10 mg RECTAL DAILY PRN 03/08/23 03/08/23 History Allergies Allergy/AdvReac Type Severity Reaction Status Date / Time enalaprilat [From Vasotec] AdvReac felt weak, Verified 03/08/23 08:05 couldn't talk erythromycin base AdvReac Nausea & Verified 03/08/23 08:05 [From Erythrocin] Vomiting Physical Exam Vitals: Vital Signs Temp Pulse Resp BP Pulse Ox FiO2 03/15/23 10:57 47 L 03/15/23 10:51 60 03/15/23 10:30 44 L 10 L 123/57 97 03/15/23 10:00 46 L 12 130/109 97 03/15/23 09:30 58 L 16 130/109 95 03/15/23 09:00 63 28 H 126/81 92 L 03/15/23 08:30 58 L 18 126/81 96 03/15/23 08:15 52 L 03/15/23 08:06 50 L 03/15/23 08:05 50 L 03/15/23 08:00 96.9 F L 49 L 22 130/58 95 60 03/15/23 07:53 50 L 03/15/23 07:47 60 03/15/23 07:00 46 L 23 97 03/15/23 06:00 48 L 28 H 97 60 03/15/23 05:00 46 L 18 97 03/15/23 04:00 98.9 F 45 L 30 H 97 60 03/15/23 03:00 45 L 13 122/54 97 03/15/23 02:13 60 03/15/23 02:00 42 L 19 100/75 98 03/15/23 01:10 100 03/15/23 01:05 1.0 03/15/23 01:00 70 49 H 161/70 94 L 100 03/15/23 00:00 48 L 25 H 136/77 94 L 60 03/14/23 23:19 52 L 27 H 136/77 92 L 03/14/23 23:00 50 L 26 H 137/62 94 L 03/14/23 22:00 52 L 24 138/65 93 L 03/14/23 21:17 51 L 03/14/23 21:00 53 L 25 H 146/67 96 03/14/23 20:59 51 L 03/14/23 20:49 48 L 60 03/14/23 20:00 98.9 F 50 L 21 141/64 95 60 03/14/23 19:00 51 L 19 147/64 95 03/14/23 18:00 52 L 19 143/67 96 03/14/23 17:00 56 L 15 140/64 96 03/14/23 16:00 96.9 F L 60 14 149/65 96 03/14/23 15:27 70 03/14/23 15:16 68 03/14/23 15:15 60 03/14/23 15:00 60 13 144/61 95 03/14/23 14:00 61 16 131/70 94 L 03/14/23 13:00 102 H 22 109/73 98 03/14/23 12:00 96.6 F L 140 H 20 153/74 99 03/14/23 11:21 80 Intake and Output 03/14/23 03/15/23 03/15/23 22:59 06:59 14:59 Intake Total 926.124 615.997 775.112 Output Total 1290 1150 510 Balance -363.876 -534.003 265.112 Intake: IV 700 160 540 Dextrose 5% in Water 1, 200 000 ml @ 100 mls/hr IV . Q10H [facility] Rx#:[id number] NS TKO 60 40 Piperacillin-Tazobactam 3 200 100 100 .375 gm In Sodium Chloride 0.9% 100 ml @ 25 mls/hr IVPB Q8HR [facility] Rx# :[id number] Potassium Chloride 10 meq 500 200 In Water For Injection 1 100ml.bag @ 100 mls/hr IVPB Q1HR [facility] Rx#: [id number] Intake, IV Titration 226.124 455.997 115.112 Amount Dexmedetomidine/0.9% NaCl 193.791 5.112 (Pmx) 400 mcg In Empty Bag 1 bag @ 0.2 MCG/KG/HR 5.525 mls/hr IV .Q18H6M [facility] Rx#:[id number] Diltiazem 125 mg In 32.333 Sodium Chloride 0.9% 100 ml @ Per Protocol IV .Q0M [facility] Rx#:[id number] Heparin Sod,Pork in 0.45% 342.929 23.068 NaCl 25,000 unit In 0.45 % NaCl 1 250ml.bag @ 18 UNITS/KG/HR 19.71 mls/hr IV .G05H80L [facility] Rx#: [id number] propofoL 1,000 mg In 107.956 92.044 Empty Bag 1 bag @ 15 MCG/ KG/MIN 9.945 mls/hr IV . Q10H4M [facility] Rx#:[id number] Oral 120 Output: Urine 1290 1150 510 Other: Voiding Method Indwelling Catheter Indwelling Catheter Weight 105.3 kg ABP, PAP, CO, CI - Last 8 Hours Arterial Blood Pressure 155/48 Arterial Blood Pressure 157/48 Arterial Blood Pressure 162/49 Arterial Blood Pressure 167/49 Arterial Blood Pressure 170/53 Arterial Blood Pressure 159/49 Arterial Blood Pressure 164/51 Arterial Blood Pressure 163/50 Arterial Blood Pressure 161/49 Arterial Blood Pressure 160/50 GENERAL DESCRIPTION: Elderly male intubated on the [facility]: Shows Pallor , no scleral icterus. Oral mucous membrane is dry. NECK: Trachea central, no thyromegaly. LUNGS: Unlabored breathing. Decreased breath sounds at the base HEART: S1, S2, regular rate and rhythm. No loud murmur ABDOMEN: Soft, no tenderness , guarding or rigidity, no organomegaly EXTREMITIES: No edema of feet. SKIN: No rash, no masses palpable. NEUROLOGICAL: The patient is sedated on the vent Results CBC & Chem 7: 03/19/23 05:00 03/19/23 05:00 Labs: Abnormal Lab Results - Last 24 Hours (Table) 03/12/23 03/14/23 03/14/23 Range/Units 12:53 09:28 09:28 WBC (3.8-10.6) k/uL RBC (4.30-5.90) m/uL Hgb (13.0-17.5) gm/dL Hct (39.0-53.0) % RDW (11.5-15.5) % Neutrophils # (1.3-7.7) k/uL Lymphocytes # (1.0-4.8) k/uL APTT (22.0-30.0) sec ABG pO2 (83-108) mmHg ABG HCO3 (21-25) mmol/L ABG Total CO2 (19-24) mmol/L ABG O2 Saturation (94-97) % Sodium (137-145) mmol/L Potassium (3.5-5.1) mmol/L Chloride (98-107) mmol/L BUN (9-20) mg/dL Creatinine (0.66-1.25) mg/dL Glucose (74-99) mg/dL POC Glucose (mg/dL) (70-110) mg/dL Magnesium 2.5 H (1.6-2.3) mg/dL Procalcitonin 2.84 H (0.02-0.09) ng/mL Total T4 3.9 L (4.5 - 10.9) ug/dL Urine Protein (Negative) Urine Glucose (UA) (Negative) Urine Blood (Negative) Amorphous Sediment (None) /hpf Urine Bacteria (None) /hpf Hyaline Casts (0-2) /lpf Urine Mucus (None) /hpf Ur Random Potassium (25.0-125.0) mmol/L 10/01/23 10/01/23 10/01/23 Range/Units 11:38 11:38 12:14 WBC (3.8-10.6) k/uL RBC (4.30-5.90) m/uL Hgb (13.0-17.5) gm/dL Hct (39.0-53.0) % RDW (11.5-15.5) % Neutrophils # (1.3-7.7) k/uL Lymphocytes # (1.0-4.8) k/uL APTT (22.0-30.0) sec ABG pO2 (83-108) mmHg ABG HCO3 (21-25) mmol/L ABG Total CO2 (19-24) mmol/L ABG O2 Saturation (94-97) % Sodium (137-145) mmol/L Potassium (3.5-5.1) mmol/L Chloride (98-107) mmol/L BUN (9-20) mg/dL Creatinine (0.66-1.25) mg/dL Glucose (74-99) mg/dL POC Glucose (mg/dL) 258 H (70-110) mg/dL Magnesium (1.6-2.3) mg/dL Procalcitonin (0.02-0.09) ng/mL Total T4 (4.5 - 10.9) ug/dL Urine Protein 1+ H (Negative) Urine Glucose (UA) Trace H (Negative) Urine Blood Large H (Negative) Amorphous Sediment Few H (None) /hpf Urine Bacteria Rare H (None) /hpf Hyaline Casts 6 H (0-2) /lpf Urine Mucus Rare H (None) /hpf Ur Random Potassium 22.3 L (25.0-125.0) mmol/L 03/14/23 03/14/23 03/14/23 Range/Units 17:30 17:36 23:44 WBC (3.8-10.6) k/uL RBC (4.30-5.90) m/uL Hgb (13.0-17.5) gm/dL Hct (39.0-53.0) % RDW (11.5-15.5) % Neutrophils # (1.3-7.7) k/uL Lymphocytes # (1.0-4.8) k/uL APTT (22.0-30.0) sec ABG pO2 (83-108) mmHg ABG HCO3 (21-25) mmol/L ABG Total CO2 (19-24) mmol/L ABG O2 Saturation (94-97) % Sodium (137-145) mmol/L Potassium 3.0 L (3.5-5.1) mmol/L Chloride (98-107) mmol/L BUN (9-20) mg/dL Creatinine (0.66-1.25) mg/dL Glucose (74-99) mg/dL POC Glucose (mg/dL) 278 H 276 H (70-110) mg/dL Magnesium (1.6-2.3) mg/dL Procalcitonin (0.02-0.09) ng/mL Total T4 (4.5 - 10.9) ug/dL Urine Protein (Negative) Urine Glucose (UA) (Negative) Urine Blood (Negative) Amorphous Sediment (None) /hpf Urine Bacteria (None) /hpf Hyaline Casts (0-2) /lpf Urine Mucus (None) /hpf Ur Random Potassium (25.0-125.0) mmol/L 03/15/23 03/15/23 03/15/23 Range/Units 02:10 05:45 05:45 WBC 18.9 H (3.8-10.6) k/uL RBC 2.33 L (4.30-5.90) m/uL Hgb 7.2 L (13.0-17.5) gm/dL Hct 22.6 L (39.0-53.0) % RDW 16.2 H (11.5-15.5) % Neutrophils # 17.9 H (1.3-7.7) k/uL Lymphocytes # 0.4 L (1.0-4.8) k/uL APTT 135.2 H* (22.0-30.0) sec ABG pO2 364 H (83-108) mmHg ABG HCO3 26 H (21-25) mmol/L ABG Total CO2 27 H (19-24) mmol/L ABG O2 Saturation 99.5 H (94-97) % Sodium (137-145) mmol/L Potassium (3.5-5.1) mmol/L Chloride (98-107) mmol/L BUN (9-20) mg/dL Creatinine (0.66-1.25) mg/dL Glucose (74-99) mg/dL POC Glucose (mg/dL) (70-110) mg/dL Magnesium (1.6-2.3) mg/dL Procalcitonin (0.02-0.09) ng/mL Total T4 (4.5 - 10.9) ug/dL Urine Protein (Negative) Urine Glucose (UA) (Negative) Urine Blood (Negative) Amorphous Sediment (None) /hpf Urine Bacteria (None) /hpf Hyaline Casts (0-2) /lpf Urine Mucus (None) /hpf Ur Random Potassium (25.0-125.0) mmol/L 03/15/23 03/15/23 03/15/23 Range/Units 05:45 06:20 06:46 WBC (3.8-10.6) k/uL RBC (4.30-5.90) m/uL Hgb (13.0-17.5) gm/dL Hct (39.0-53.0) % RDW (11.5-15.5) % Neutrophils # (1.3-7.7) k/uL Lymphocytes # (1.0-4.8) k/uL APTT (22.0-30.0) sec ABG pO2 140 H (83-108) mmHg ABG HCO3 (21-25) mmol/L ABG Total CO2 26 H (19-24) mmol/L ABG O2 Saturation 98.5 H (94-97) % Sodium 156 H (137-145) mmol/L Potassium 2.9 L (3.5-5.1) mmol/L Chloride 119 H (98-107) mmol/L BUN 97 H (9-20) mg/dL Creatinine 2.86 H (0.66-1.25) mg/dL Glucose 317 H (74-99) mg/dL POC Glucose (mg/dL) 350 H (70-110) mg/dL Magnesium (1.6-2.3) mg/dL Procalcitonin (0.02-0.09) ng/mL Total T4 (4.5 - 10.9) ug/dL Urine Protein (Negative) Urine Glucose (UA) (Negative) Urine Blood (Negative) Amorphous Sediment (None) /hpf Urine Bacteria (None) /hpf Hyaline Casts (0-2) /lpf Urine Mucus (None) /hpf Ur Random Potassium (25.0-125.0) mmol/L Assessment and Plan (1) Pneumonia Current Visit: No Status: Acute Code(s): J18.9 - PNEUMONIA, UNSPECIFIED ORGANISM SNOMED Code(s): 423789201 Plan: 1patient with acute respiratory failure which is multifactorial in this patient has been in the hospital for almost 8 to 9 days with initial presentation of sepsis possible pneumonia however no cultures were done during this hospital stay patient did not get intubated because of worsening respiratory status and culture has been obtained and possible plan for bronchoscopy this afternoon, we will need to cover for the gram-negative to be the likely pathogen 2-we will check a CRP and a procalcitonin level and follow-up on the sputum culture check a blood culture as well 3-Zosyn 3.375 g every 8 hours while waiting for the culture to finalize We will follow on clinical condition and cultures to further adjust medication if needed Thank you for this consultation we will follow the patient along with you Dictation was produced using [employer] dictation software. please excuse any grammatical, word or spelling errors. Time with Patient: Greater than 30
--- NOTE | 2023-03-16 08:21 | XR ---
EXAMINATION TYPE: XR chest 1V portable DATE OF EXAM: 03/16/2023 Comparison: 03/15/2023 Clinical History: 77 year-old male tube placement Findings: ET tube tip not well seen but probably in the vicinity of the aortic arch level. NG tube courses belo w the diaphragm. Heart borderline enlarged. Diffuse bilateral interstitial and airspace opacity shows slight interval improvement. No pleural effusion. Impression: Ongoing diffuse interstitial and bilateral airspace opacities but showing slight interval improvement .
[2023-03-16 08:23] LABS: Glucose,Whole Blood 348 mg/dL (70-110)
[2023-03-16] MEDS ORDERED: FUROSEMIDE 10 MG/ML 10 ML VIAL IV STA (08:29)
[2023-03-16 08:49] LABS: Nucleated Cells, Body Fluid 300 /UL
[2023-03-16] MEDS: FORMOTEROL FUMARATE 20 MCG/2 ML NEBU INHALATION SCH ×2 (09:05→20:30)
[2023-03-16] MEDS: BUDESONIDE 1 MG/2 ML NEBU INHALATION SCH ×2 (09:05→20:30)
--- NOTE | 2023-03-16 09:15 | P.PN ---
Subjective Patient is seen in follow-up for acute kidney injury on chronic kidney disease. Urine output 120 mL an hour. Intubated. Receiving D5W as well as IV Lasix. Sodium level 148 with blood glucose over 400. Potassium replaced. Not on vasopressors. Hemoglobin 6.8 today. Vital signs are stable. General: Resting in bed. HEENT: Intubated. LUNGS: Scattered rhonchi. HEART: Rate and Rhythm are regular. ABDOMEN: No distention. EXTREMITITES: Trace edema. Objective - Vital Signs Vital signs: Vital Signs Temp 97.6 F 03/16/23 08:00 Pulse 51 L 03/16/23 08:30 Resp 26 H 03/16/23 08:30 BP 150/45 03/16/23 07:50 Pulse Ox 98 03/16/23 08:30 FiO2 50 03/16/23 08:00 Intake & Output 03/15/23 03/16/23 03/16/23 18:59 06:59 18:59 Intake Total 2806.333 2361.957 293.69 Output Total 1075 195 20 Balance 9125.707 0191.957 273.69 Weight 105.3 kg 112.4 kg Intake: IV 1620 1650 100 Dextrose 5% in Water 1, 700 100 000 ml @ 100 mls/hr IV . Q10H [facility] Rx#:[id number] Dextrose 5% in Water 1, 1100 750 000 ml @ 150 mls/hr IV . Q6H40M [facility] Rx#:[id number] NS TKO 120 100 Piperacillin-Tazobactam 3 200 100 .375 gm In Sodium Chloride 0.9% 100 ml @ 25 mls/hr IVPB Q8HR [facility] Rx# :[id number] Potassium Chloride 10 meq 200 In Water For Injection 1 100ml.bag @ 100 mls/hr IVPB Q1HR [facility] Rx#: [id number] Intake, IV Titration 436.333 468.957 170.69 Amount Heparin Sod,Pork in 0.45% 23.068 NaCl 25,000 unit In 0.45 % NaCl 1 250ml.bag @ 18 UNITS/KG/HR 19.71 mls/hr IV .[id number] [facility] Rx#: [id number] Insulin Regular 100 unit 94.533 70.69 In Sodium Chloride 0.9% 100 ml @ Titrate IV .Q0M [facility] Rx#:[id number] propofoL 1,000 mg In 413.265 374.424 100 Empty Bag 1 bag @ 15 MCG/ KG/MIN 9.945 mls/hr IV . Q10H4M [facility] Rx#:[id number] Tube Feeding 80 183 23 Blood Product 0 Rc As-1 Unit 0 [id number] Other 670 60 Output: Urine 1075 195 20 Other: Voiding Method Indwelling Catheter Indwelling Catheter ABP, PAP, CO, CI - Last Documented Arterial Blood Pressure 153/47 - Labs CBC & Chem 7: 03/16/23 04:05 03/16/23 04:05 Labs: Abnormal Lab Results - Last 24 Hours (Table) 03/12/23 03/14/23 03/15/23 Range/Units 12:53 11:38 05:45 WBC (3.8-10.6) k/uL RBC (4.30-5.90) m/uL Hgb (13.0-17.5) gm/dL Hct (39.0-53.0) % MCV (80.0-100.0) fL MCHC (31.0-37.0) g/dL RDW (11.5-15.5) % Plt Count (150-450) k/uL Neutrophils # 17.9 H (1.3-7.7) k/uL Lymphocytes # 0.4 L (1.0-4.8) k/uL ABG pH (7.35-7.45) ABG pCO2 (35-45) mmHg ABG pO2 (83-108) mmHg ABG Total CO2 (19-24) mmol/L ABG O2 Saturation (94-97) % Sodium (137-145) mmol/L Chloride (98-107) mmol/L BUN (9-20) mg/dL Creatinine (0.66-1.25) mg/dL Glucose (74-99) mg/dL POC Glucose (mg/dL) (70-110) mg/dL Calcium (8.4-10.2) mg/dL AST (17-59) U/L Alkaline Phosphatase (38-126) U/L Total Protein (6.3-8.2) g/dL Albumin (3.5-5.0) g/dL Total T4 3.9 L (4.5 - 10.9) ug/dL Ur Random Potassium 22.3 L (25.0-125.0) mmol/L Fluid Appearance (Clear) Fluid RBC (0-2000) /uL Crossmatch 03/15/23 03/15/23 03/15/23 Range/Units 12:02 16:00 16:50 WBC (3.8-10.6) k/uL RBC (4.30-5.90) m/uL Hgb (13.0-17.5) gm/dL Hct (39.0-53.0) % MCV (80.0-100.0) fL MCHC (31.0-37.0) g/dL RDW (11.5-15.5) % Plt Count (150-450) k/uL Neutrophils # (1.3-7.7) k/uL Lymphocytes # (1.0-4.8) k/uL ABG pH (7.35-7.45) ABG pCO2 (35-45) mmHg ABG pO2 (83-108) mmHg ABG Total CO2 (19-24) mmol/L ABG O2 Saturation (94-97) % Sodium (137-145) mmol/L Chloride (98-107) mmol/L BUN (9-20) mg/dL Creatinine (0.66-1.25) mg/dL Glucose (74-99) mg/dL POC Glucose (mg/dL) 418 H 426 H (70-110) mg/dL Calcium (8.4-10.2) mg/dL AST (17-59) U/L Alkaline Phosphatase (38-126) U/L Total Protein (6.3-8.2) g/dL Albumin (3.5-5.0) g/dL Total T4 (4.5 - 10.9) ug/dL Ur Random Potassium (25.0-125.0) mmol/L Fluid Appearance Clumped A (Clear) Fluid RBC 3150 H (0-2000) /uL Crossmatch 03/15/23 03/15/23 03/15/23 Range/Units 16:51 21:00 23:08 WBC (3.8-10.6) k/uL RBC (4.30-5.90) m/uL Hgb (13.0-17.5) gm/dL Hct (39.0-53.0) % MCV (80.0-100.0) fL MCHC (31.0-37.0) g/dL RDW (11.5-15.5) % Plt Count (150-450) k/uL Neutrophils # (1.3-7.7) k/uL Lymphocytes # (1.0-4.8) k/uL ABG pH (7.35-7.45) ABG pCO2 (35-45) mmHg ABG pO2 (83-108) mmHg ABG Total CO2 (19-24) mmol/L ABG O2 Saturation (94-97) % Sodium 155 H 151 H (137-145) mmol/L Chloride 117 H 115 H (98-107) mmol/L BUN 100 H 102 H* (9-20) mg/dL Creatinine 2.81 H 2.87 H (0.66-1.25) mg/dL Glucose 415 H 433 H (74-99) mg/dL POC Glucose (mg/dL) 493 H (70-110) mg/dL Calcium 8.2 L (8.4-10.2) mg/dL AST (17-59) U/L Alkaline Phosphatase (38-126) U/L Total Protein (6.3-8.2) g/dL Albumin (3.5-5.0) g/dL Total T4 (4.5 - 10.9) ug/dL Ur Random Potassium (25.0-125.0) mmol/L Fluid Appearance (Clear) Fluid RBC (0-2000) /uL Crossmatch 03/15/23 03/16/23 03/16/23 Range/Units 23:52 01:00 02:06 WBC (3.8-10.6) k/uL RBC (4.30-5.90) m/uL Hgb (13.0-17.5) gm/dL Hct (39.0-53.0) % MCV (80.0-100.0) fL MCHC (31.0-37.0) g/dL RDW (11.5-15.5) % Plt Count (150-450) k/uL Neutrophils # (1.3-7.7) k/uL Lymphocytes # (1.0-4.8) k/uL ABG pH (7.35-7.45) ABG pCO2 (35-45) mmHg ABG pO2 (83-108) mmHg ABG Total CO2 (19-24) mmol/L ABG O2 Saturation (94-97) % Sodium (137-145) mmol/L Chloride (98-107) mmol/L BUN (9-20) mg/dL Creatinine (0.66-1.25) mg/dL Glucose (74-99) mg/dL POC Glucose (mg/dL) 484 H 497 H 490 H (70-110) mg/dL Calcium (8.4-10.2) mg/dL AST (17-59) U/L Alkaline Phosphatase (38-126) U/L Total Protein (6.3-8.2) g/dL Albumin (3.5-5.0) g/dL Total T4 (4.5 - 10.9) ug/dL Ur Random Potassium (25.0-125.0) mmol/L Fluid Appearance (Clear) Fluid RBC (0-2000) /uL Crossmatch 03/16/23 03/16/23 03/16/23 Range/Units 02:58 04:05 04:05 WBC 15.0 H (3.8-10.6) k/uL RBC 2.23 L (4.30-5.90) m/uL Hgb 6.8 L* (13.0-17.5) gm/dL Hct 22.4 L (39.0-53.0) % MCV 100.4 H (80.0-100.0) fL MCHC 30.2 L (31.0-37.0) g/dL RDW 16.6 H (11.5-15.5) % Plt Count 144 L (150-450) k/uL Neutrophils # 14.1 H (1.3-7.7) k/uL Lymphocytes # 0.5 L (1.0-4.8) k/uL ABG pH (7.35-7.45) ABG pCO2 (35-45) mmHg ABG pO2 (83-108) mmHg ABG Total CO2 (19-24) mmol/L ABG O2 Saturation (94-97) % Sodium 148 H (137-145) mmol/L Chloride 111 H (98-107) mmol/L BUN 105 H* (9-20) mg/dL Creatinine 3.00 H (0.66-1.25) mg/dL Glucose 443 H (74-99) mg/dL POC Glucose (mg/dL) 482 H (70-110) mg/dL Calcium 8.1 L (8.4-10.2) mg/dL AST 11 L (17-59) U/L Alkaline Phosphatase 142 H (38-126) U/L Total Protein 4.9 L (6.3-8.2) g/dL Albumin 2.3 L (3.5-5.0) g/dL Total T4 (4.5 - 10.9) ug/dL Ur Random Potassium (25.0-125.0) mmol/L Fluid Appearance (Clear) Fluid RBC (0-2000) /uL Crossmatch 03/16/23 03/16/23 03/16/23 Range/Units 04:12 05:17 05:18 WBC (3.8-10.6) k/uL RBC (4.30-5.90) m/uL Hgb (13.0-17.5) gm/dL Hct (39.0-53.0) % MCV (80.0-100.0) fL MCHC (31.0-37.0) g/dL RDW (11.5-15.5) % Plt Count (150-450) k/uL Neutrophils # (1.3-7.7) k/uL Lymphocytes # (1.0-4.8) k/uL ABG pH (7.35-7.45) ABG pCO2 (35-45) mmHg ABG pO2 (83-108) mmHg ABG Total CO2 (19-24) mmol/L ABG O2 Saturation (94-97) % Sodium (137-145) mmol/L Chloride (98-107) mmol/L BUN (9-20) mg/dL Creatinine (0.66-1.25) mg/dL Glucose (74-99) mg/dL POC Glucose (mg/dL) 468 H 448 H (70-110) mg/dL Calcium (8.4-10.2) mg/dL AST (17-59) U/L Alkaline Phosphatase (38-126) U/L Total Protein (6.3-8.2) g/dL Albumin (3.5-5.0) g/dL Total T4 (4.5 - 10.9) ug/dL Ur Random Potassium (25.0-125.0) mmol/L Fluid Appearance (Clear) Fluid RBC (0-2000) /uL Crossmatch See Detail 03/16/23 03/16/23 03/16/23 Range/Units 05:40 06:16 07:04 WBC (3.8-10.6) k/uL RBC (4.30-5.90) m/uL Hgb (13.0-17.5) gm/dL Hct (39.0-53.0) % MCV (80.0-100.0) fL MCHC (31.0-37.0) g/dL RDW (11.5-15.5) % Plt Count (150-450) k/uL Neutrophils # (1.3-7.7) k/uL Lymphocytes # (1.0-4.8) k/uL ABG pH 7.30 L (7.35-7.45) ABG pCO2 51 H (35-45) mmHg ABG pO2 207 H (83-108) mmHg ABG Total CO2 27 H (19-24) mmol/L ABG O2 Saturation 99.2 H (94-97) % Sodium (137-145) mmol/L Chloride (98-107) mmol/L BUN (9-20) mg/dL Creatinine (0.66-1.25) mg/dL Glucose (74-99) mg/dL POC Glucose (mg/dL) 428 H 400 H (70-110) mg/dL Calcium (8.4-10.2) mg/dL AST (17-59) U/L Alkaline Phosphatase (38-126) U/L Total Protein (6.3-8.2) g/dL Albumin (3.5-5.0) g/dL Total T4 (4.5 - 10.9) ug/dL Ur Random Potassium (25.0-125.0) mmol/L Fluid Appearance (Clear) Fluid RBC (0-2000) /uL Crossmatch 03/16/23 Range/Units 08:21 WBC (3.8-10.6) k/uL RBC (4.30-5.90) m/uL Hgb (13.0-17.5) gm/dL Hct (39.0-53.0) % MCV (80.0-100.0) fL MCHC (31.0-37.0) g/dL RDW (11.5-15.5) % Plt Count (150-450) k/uL Neutrophils # (1.3-7.7) k/uL Lymphocytes # (1.0-4.8) k/uL ABG pH (7.35-7.45) ABG pCO2 (35-45) mmHg ABG pO2 (83-108) mmHg ABG Total CO2 (19-24) mmol/L ABG O2 Saturation (94-97) % Sodium (137-145) mmol/L Chloride (98-107) mmol/L BUN (9-20) mg/dL Creatinine (0.66-1.25) mg/dL Glucose (74-99) mg/dL POC Glucose (mg/dL) 348 H (70-110) mg/dL Calcium (8.4-10.2) mg/dL AST (17-59) U/L Alkaline Phosphatase (38-126) U/L Total Protein (6.3-8.2) g/dL Albumin (3.5-5.0) g/dL Total T4 (4.5 - 10.9) ug/dL Ur Random Potassium (25.0-125.0) mmol/L Fluid Appearance (Clear) Fluid RBC (0-2000) /uL Crossmatch Microbiology - Last 24 Hours (Table) 03/15/23 01:20 Gram Stain - Preliminary Sputum Assessment and Plan Plan: Assessment: 1. Acute kidney injury secondary to ATN secondary to hemodynamic instability and infection. Creatinine 3.0 today. Urine output 10-20 mL an hour. 2. Chronic kidney disease stage IV with baseline creatinine 2-2.5. 3. Hypernatremia from free water diuresis and lack of oral water intake. 4. Hypokalemia from diuresis. Being replaced. 5. Acute hypoxic respiratory failure secondary to pneumonia and volume overload. Status post bronchoscopy 03/15/2023. 6. Pneumonia on antibiotics. 7. Acute blood loss anemia. Hemoglobin 6.8 today. Heparin drip stopped. Plan: Increase rate of D5W 150 mL an hour. Lasix 80 mg IV once after blood transfusion. IV DDAVP 1 dose today. Potassium being replaced. Recheck BMP this evening. Avoid nephrotoxins. Wean FiO2. Continue to monitor renal function and urine output. Blood glucose control. Check renal ultrasound. If no improvement in renal function and urine output, will initiate renal replacement therapy tomorrow.
[2023-03-16] MEDS ORDERED: DESMOPRESSIN ACETATE 32 MCG in SODIUM CHLORIDE 0.9% 50 ML IVPB ONE (09:30)
--- NOTE | 2023-03-16 09:34 | P.PN ---
Subjective Progress Note Date: 03/16/23 On today's evaluation of 03/23/2023, I'm seeing the patient in the intensive care unit. At this point in time, the patient is intubated on a mechanical ventilator. Overnight, the patient became acutely hypoxic and more short of breath and he developed diffuse but the pulmonary infiltrates consistent with pneumonia and based on that the patient was intubated and placed on a mechanical ventilator. Note that this patient is 77 years of age. He has diabetes mellitus type 2, chronic kidney disease, hypothyroidism, COPD, hyperlipidemia and hypertension. He was also recently treated for cellulitis of lower extremity, [facility] through a PICC line in his right upper extremity and he received and completed the course of daptomycin. Discharged home to be readmitted for shortness of breath to our hospital on 03/08/2023. Note that the patient was being supported with BiPAP as various pressures. His proBNP level was elevated. His echocardiograms was recent showed a preserved LV function without any significant abnormalities. He was given bronchodilators. He was given IV Solu-Medrol. He was given IV Lasix. Another dose of Lasix was given to him by the nurse practitioner at 2:30 AM this morning. He has a Meneses catheter in place. Urine output is in order of 100 mL an hour. At this point in time, the patient remains on mechanical ventilator. He was quite a successful the mechanical ventilator and he was having frequent episodes of desaturation. He is on propofol running at 55 mcg/kg/m. I switched this patient's blood pressure control mode of mechanical ventilation and currently is on a pressure control of 12, rate of 26, PEEP of 12 with a FiO2 of 60%. His current pulse ox is 95%. He is on IV heparin and this was I believe initiated due to concerns of pulmonary embolism, on an empiric basis. The echoes at 18.9, hemoglobin is at 7.2, platelet count of 179, most recent blood gas showed a pH of 7.38 with a pCO2 of 43 and pO2 of 140. BUN is at 97 with a creatinine of 2.8, sodium level is at 156 and a potassium level is at 2.9. IV fluids are at KVO, 0.9. On today's evaluation of 03/16/2023, the patient is being seen for a follow-up. Remains intubated on mechanical ventilator. He was quite asynchronous with a mechanical ventilator yesterday. Based on that, I put the patient on pressure control mode of mechanical ventilation. This morning he is on a pressure control of 12, PEEP of 12, FiO2 of 50% with a rate of 26. He is on sedative medication the patient is currently on propofol running at 55 mcg/kg/m. He is quite sentences with a mechanical ventilator. A bronchoscopy was done and a bronchial lavage of the right middle lobe was done. The results are still pending for now. Meanwhile, a follow-up chest x-ray from today shows marked improvement and there is interval improvement of the diffuse bilateral pulmonary infiltrates along with some residual interstitial changes present. Nevertheless, the x-rays improved. In same time, Dr. patient is also improved and the patient has a pH of 7.3 with a pCO2 of 51 and pO2 of 207. The patient is afebrile. The patient is hemodynamically stable at this point and he is on no pressors. He remains on bronchodilators. He remains on steroids. He remains on a an empiric antibiotic coverage with IV Zosyn. Also, there is a drop in the hemoglobin down to 6.8 and the patient was given units of packed RBC. No signs of any bleeding. We have not witnessed any melanotic stools or hematemesis on this patient. He remains on enteral feeding for nutritional support and he is receiving vital high-protein at the rate of 23 mL an hour. The patient's sodium level is also improving. His free water deficit is being replaced. He is on D5 water running at 150 mL an hour. Sodium level is down to 148. The patient is also on insulin drip running at 34.8 units an hour. Most recent blood sugar is still elevated at 340. BUN is at 105, creatinine is at 3.0, serum bicarbs at 23, white cell count of 15.0. Objective - Vital Signs Vital signs: Vital Signs Temp 97.6 F 03/16/23 08:00 Pulse 48 L 03/16/23 09:16 Resp 26 H 03/16/23 08:30 BP 150/45 03/16/23 07:50 Pulse Ox 98 03/16/23 08:30 FiO2 50 03/16/23 09:11 Intake & Output 03/15/23 03/16/23 03/16/23 18:59 06:59 18:59 Intake Total 2806.333 2361.957 293.69 Output Total 1075 195 20 Balance 6024.418 8624.957 273.69 Weight 105.3 kg 112.4 kg Intake: IV 1620 1650 100 Dextrose 5% in Water 1, 700 100 000 ml @ 100 mls/hr IV . Q10H [facility] Rx#:[id number] Dextrose 5% in Water 1, 1100 750 000 ml @ 150 mls/hr IV . Q6H40M [facility] Rx#:[id number] NS TKO 120 100 Piperacillin-Tazobactam 3 200 100 .375 gm In Sodium Chloride 0.9% 100 ml @ 25 mls/hr IVPB Q8HR [facility] Rx# :[id number] Potassium Chloride 10 meq 200 In Water For Injection 1 100ml.bag @ 100 mls/hr IVPB Q1HR [facility] Rx#: [id number] Intake, IV Titration 436.333 468.957 170.69 Amount Heparin Sod,Pork in 0.45% 23.068 NaCl 25,000 unit In 0.45 % NaCl 1 250ml.bag @ 18 UNITS/KG/HR 19.71 mls/hr IV .[id number] [facility] Rx#: [id number] Insulin Regular 100 unit 94.533 70.69 In Sodium Chloride 0.9% 100 ml @ Titrate IV .Q0M [facility] Rx#:[id number] propofoL 1,000 mg In 413.265 374.424 100 Empty Bag 1 bag @ 15 MCG/ KG/MIN 9.945 mls/hr IV . Q10H4M [facility] Rx#:[id number] Tube Feeding 80 183 23 Blood Product 0 Rc As-1 Unit 0 [id number] Other 670 60 Output: Urine 1075 195 20 Other: Voiding Method Indwelling Catheter Indwelling Catheter ABP, PAP, CO, CI - Last Documented Arterial Blood Pressure 153/47 - Exam Patient is currently intubated on a mechanical ventilator. Orogastric and orotracheal tube are both in place. The patient is sedated with propofol. HEENT examination is grossly unremarkable. Neck supple. Full range of motion. No adenopathy thyromegaly or neck vein distention. Cardiovascular examination reveals regular rhythm rate. S1-S2 normal. No S3 or S4. No discernible murmur noted. Lungs reveal scattered rhonchi and crackles. Breath sounds equal. Breath sounds are equal bilaterally. No distinct wheezes noted. Abdomen soft bowel sounds are heard. No masses or tenderness. Extremities are intact. No cyanosis clubbing or edema. Skin is without rash or lesion. Neurologic examination is brief but nonfocal. - Labs CBC & Chem 7: 03/16/23 04:05 03/16/23 04:05 Labs: Abnormal Lab Results - Last 24 Hours (Table) 03/12/23 03/15/23 03/15/23 Range/Units 12:53 05:45 12:02 WBC (3.8-10.6) k/uL RBC (4.30-5.90) m/uL Hgb (13.0-17.5) gm/dL Hct (39.0-53.0) % MCV (80.0-100.0) fL MCHC (31.0-37.0) g/dL RDW (11.5-15.5) % Plt Count (150-450) k/uL Neutrophils # (1.3-7.7) k/uL Lymphocytes # (1.0-4.8) k/uL ABG pH (7.35-7.45) ABG pCO2 (35-45) mmHg ABG pO2 (83-108) mmHg ABG Total CO2 (19-24) mmol/L ABG O2 Saturation (94-97) % Sodium (137-145) mmol/L Chloride (98-107) mmol/L BUN (9-20) mg/dL Creatinine (0.66-1.25) mg/dL Glucose (74-99) mg/dL POC Glucose (mg/dL) 418 H (70-110) mg/dL Hemoglobin A1c 6.6 H (<=6.0) % Calcium (8.4-10.2) mg/dL AST (17-59) U/L Alkaline Phosphatase (38-126) U/L Total Protein (6.3-8.2) g/dL Albumin (3.5-5.0) g/dL Total T4 3.9 L (4.5 - 10.9) ug/dL Fluid Appearance (Clear) Fluid RBC (0-2000) /uL Crossmatch 03/15/23 03/15/23 03/15/23 Range/Units 16:00 16:50 16:51 WBC (3.8-10.6) k/uL RBC (4.30-5.90) m/uL Hgb (13.0-17.5) gm/dL Hct (39.0-53.0) % MCV (80.0-100.0) fL MCHC (31.0-37.0) g/dL RDW (11.5-15.5) % Plt Count (150-450) k/uL Neutrophils # (1.3-7.7) k/uL Lymphocytes # (1.0-4.8) k/uL ABG pH (7.35-7.45) ABG pCO2 (35-45) mmHg ABG pO2 (83-108) mmHg ABG Total CO2 (19-24) mmol/L ABG O2 Saturation (94-97) % Sodium 155 H (137-145) mmol/L Chloride 117 H (98-107) mmol/L BUN 100 H (9-20) mg/dL Creatinine 2.81 H (0.66-1.25) mg/dL Glucose 415 H (74-99) mg/dL POC Glucose (mg/dL) 426 H (70-110) mg/dL Hemoglobin A1c (<=6.0) % Calcium (8.4-10.2) mg/dL AST (17-59) U/L Alkaline Phosphatase (38-126) U/L Total Protein (6.3-8.2) g/dL Albumin (3.5-5.0) g/dL Total T4 (4.5 - 10.9) ug/dL Fluid Appearance Clumped A (Clear) Fluid RBC 3150 H (0-2000) /uL Crossmatch 03/15/23 03/15/23 03/15/23 Range/Units 21:00 23:08 23:52 WBC (3.8-10.6) k/uL RBC (4.30-5.90) m/uL Hgb (13.0-17.5) gm/dL Hct (39.0-53.0) % MCV (80.0-100.0) fL MCHC (31.0-37.0) g/dL RDW (11.5-15.5) % Plt Count (150-450) k/uL Neutrophils # (1.3-7.7) k/uL Lymphocytes # (1.0-4.8) k/uL ABG pH (7.35-7.45) ABG pCO2 (35-45) mmHg ABG pO2 (83-108) mmHg ABG Total CO2 (19-24) mmol/L ABG O2 Saturation (94-97) % Sodium 151 H (137-145) mmol/L Chloride 115 H (98-107) mmol/L BUN 102 H* (9-20) mg/dL Creatinine 2.87 H (0.66-1.25) mg/dL Glucose 433 H (74-99) mg/dL POC Glucose (mg/dL) 493 H 484 H (70-110) mg/dL Hemoglobin A1c (<=6.0) % Calcium 8.2 L (8.4-10.2) mg/dL AST (17-59) U/L Alkaline Phosphatase (38-126) U/L Total Protein (6.3-8.2) g/dL Albumin (3.5-5.0) g/dL Total T4 (4.5 - 10.9) ug/dL Fluid Appearance (Clear) Fluid RBC (0-2000) /uL Crossmatch 03/16/23 03/16/23 03/16/23 Range/Units 01:00 02:06 02:58 WBC (3.8-10.6) k/uL RBC (4.30-5.90) m/uL Hgb (13.0-17.5) gm/dL Hct (39.0-53.0) % MCV (80.0-100.0) fL MCHC (31.0-37.0) g/dL RDW (11.5-15.5) % Plt Count (150-450) k/uL Neutrophils # (1.3-7.7) k/uL Lymphocytes # (1.0-4.8) k/uL ABG pH (7.35-7.45) ABG pCO2 (35-45) mmHg ABG pO2 (83-108) mmHg ABG Total CO2 (19-24) mmol/L ABG O2 Saturation (94-97) % Sodium (137-145) mmol/L Chloride (98-107) mmol/L BUN (9-20) mg/dL Creatinine (0.66-1.25) mg/dL Glucose (74-99) mg/dL POC Glucose (mg/dL) 497 H 490 H 482 H (70-110) mg/dL Hemoglobin A1c (<=6.0) % Calcium (8.4-10.2) mg/dL AST (17-59) U/L Alkaline Phosphatase (38-126) U/L Total Protein (6.3-8.2) g/dL Albumin (3.5-5.0) g/dL Total T4 (4.5 - 10.9) ug/dL Fluid Appearance (Clear) Fluid RBC (0-2000) /uL Crossmatch 03/16/23 03/16/23 03/16/23 Range/Units 04:05 04:05 04:12 WBC 15.0 H (3.8-10.6) k/uL RBC 2.23 L (4.30-5.90) m/uL Hgb 6.8 L* (13.0-17.5) gm/dL Hct 22.4 L (39.0-53.0) % MCV 100.4 H (80.0-100.0) fL MCHC 30.2 L (31.0-37.0) g/dL RDW 16.6 H (11.5-15.5) % Plt Count 144 L (150-450) k/uL Neutrophils # 14.1 H (1.3-7.7) k/uL Lymphocytes # 0.5 L (1.0-4.8) k/uL ABG pH (7.35-7.45) ABG pCO2 (35-45) mmHg ABG pO2 (83-108) mmHg ABG Total CO2 (19-24) mmol/L ABG O2 Saturation (94-97) % Sodium 148 H (137-145) mmol/L Chloride 111 H (98-107) mmol/L BUN 105 H* (9-20) mg/dL Creatinine 3.00 H (0.66-1.25) mg/dL Glucose 443 H (74-99) mg/dL POC Glucose (mg/dL) 468 H (70-110) mg/dL Hemoglobin A1c (<=6.0) % Calcium 8.1 L (8.4-10.2) mg/dL AST 11 L (17-59) U/L Alkaline Phosphatase 142 H (38-126) U/L Total Protein 4.9 L (6.3-8.2) g/dL Albumin 2.3 L (3.5-5.0) g/dL Total T4 (4.5 - 10.9) ug/dL Fluid Appearance (Clear) Fluid RBC (0-2000) /uL Crossmatch 03/16/23 03/16/23 03/16/23 Range/Units 05:17 05:18 05:40 WBC (3.8-10.6) k/uL RBC (4.30-5.90) m/uL Hgb (13.0-17.5) gm/dL Hct (39.0-53.0) % MCV (80.0-100.0) fL MCHC (31.0-37.0) g/dL RDW (11.5-15.5) % Plt Count (150-450) k/uL Neutrophils # (1.3-7.7) k/uL Lymphocytes # (1.0-4.8) k/uL ABG pH 7.30 L (7.35-7.45) ABG pCO2 51 H (35-45) mmHg ABG pO2 207 H (83-108) mmHg ABG Total CO2 27 H (19-24) mmol/L ABG O2 Saturation 99.2 H (94-97) % Sodium (137-145) mmol/L Chloride (98-107) mmol/L BUN (9-20) mg/dL Creatinine (0.66-1.25) mg/dL Glucose (74-99) mg/dL POC Glucose (mg/dL) 448 H (70-110) mg/dL Hemoglobin A1c (<=6.0) % Calcium (8.4-10.2) mg/dL AST (17-59) U/L Alkaline Phosphatase (38-126) U/L Total Protein (6.3-8.2) g/dL Albumin (3.5-5.0) g/dL Total T4 (4.5 - 10.9) ug/dL Fluid Appearance (Clear) Fluid RBC (0-2000) /uL Crossmatch See Detail 03/16/23 03/16/23 03/16/23 Range/Units 06:16 07:04 08:21 WBC (3.8-10.6) k/uL RBC (4.30-5.90) m/uL Hgb (13.0-17.5) gm/dL Hct (39.0-53.0) % MCV (80.0-100.0) fL MCHC (31.0-37.0) g/dL RDW (11.5-15.5) % Plt Count (150-450) k/uL Neutrophils # (1.3-7.7) k/uL Lymphocytes # (1.0-4.8) k/uL ABG pH (7.35-7.45) ABG pCO2 (35-45) mmHg ABG pO2 (83-108) mmHg ABG Total CO2 (19-24) mmol/L ABG O2 Saturation (94-97) % Sodium (137-145) mmol/L Chloride (98-107) mmol/L BUN (9-20) mg/dL Creatinine (0.66-1.25) mg/dL Glucose (74-99) mg/dL POC Glucose (mg/dL) 428 H 400 H 348 H (70-110) mg/dL Hemoglobin A1c (<=6.0) % Calcium (8.4-10.2) mg/dL AST (17-59) U/L Alkaline Phosphatase (38-126) U/L Total Protein (6.3-8.2) g/dL Albumin (3.5-5.0) g/dL Total T4 (4.5 - 10.9) ug/dL Fluid Appearance (Clear) Fluid RBC (0-2000) /uL Crossmatch Microbiology - Last 24 Hours (Table) 03/15/23 01:20 Gram Stain - Preliminary Sputum Assessment and Plan Plan: Acute hypoxemic respiratory failure, secondary to possible healthcare associated pneumonia, versus acute pulmonary edema, versus acute respiratory distress syndrome. Patient has developed diffuse bilateral pulmonary infiltrates. This could be cardiogenic versus noncardiac pulmonary edema. Patient failed BiPAP therapy and the patient is currently intubated on a mechanical ventilator. Earlier this morning, he continued to have episodes of oxygen saturation and based on that, switch this patient had a pressure control mode of mechanical ventilation. On today's evaluation of 04/12/2023, the patient remains on broad- spectrum antibiotics. The chest x-ray findings are improved. Oxygen is also improved, please refer to the chest x-ray in the blood gas. Acute on chronic kidney disease, urine output is in order of 10-20 mL an hour. Creatinine is stable at 3.0. Acute hypernatremia and his sodium level is currently at 148 Acute leukocytosis my improving and the white cell count of 15 Bilateral lower extremity edema, and cellulitis, treated and recovered Elevated troponins, rule out non-ST segment elevation myocardial infarction. Anemia of chronic disease. There is a interval drop in hemoglobin down to 6.8. The patient is chronically anemic and the patient is receiving a unit of packed RBC. Stage III chronic kidney disease. Type 2 diabetes mellitus. Benign essential hypertension. Dyslipidemia. Hypothyroidism. Benign prostatic hypertrophy. Obesity Sinus bradycardia Plan Necessary ventilator changes were done yesterday and the patient will stay on pressure control mode of mechanical ventilation. With optic PEEP down to 8 and if the oxygenation stayed stable, will drop FiO2 down to 40% Continue IV Zosyn The patient's oxygenation the chest x-ray findings are improving Drop in the D5 water at the rate of 75 mL an hour, as the patient is having significant hyperglycemia and his insulin requirements are quite high Hold all form of diuretics at this point in time Discontinue the Solu-Medrol Titrate the insulin drip based on his blood sugar needs. I think the blood sugars are quite elevated and the patient is receiving D5 water and systemic steroids and it should improve Transfuse 1 units of packed RBC No need for pressors at this point in time Continue enteral feeding for nutritional support Echocardiogram was ordered for today and will completed and the findings of essentially showing a preserved LV function with severe pulmonary hypertension with a EF around 65% and the pulmonary artery pressure of around 56 mmHg, no significant valvular abnormalities Monitor the white cell count, improving Monitor renal function, stable Monitor urine output Condition is critically ill continue to follow and make further recommendations based on his progress. There is a critical care evaluation that was done in more than 30 minutes. Time with Patient: Greater than 30
[2023-03-16 10:39] LABS: Glucose,Whole Blood 294 mg/dL (70-110)
[2023-03-16] MEDS: CHLORHEXIDINE GLUCONATE 15 ML CUP MUCOUS MEM SCH ×2 (10:52→19:59)
[2023-03-16] MEDS: hydrALAZINE HCL 50 MG TAB PO SCH ×2 (10:53→16:56)
[2023-03-16] MEDS: FAMOTIDINE 20 MG/2 ML VIAL IV SCH (10:54)
[2023-03-16] MEDS: LEVOTHYROXINE IVP 100 MCG/5 ML VIAL IV SCH (10:56)
[2023-03-16] MEDS: amLODIPine 2.5 MG TAB PO SCH (10:57)
[2023-03-16] MEDS: HYDROPHILIC CREAM 180 GM TUBE TOPICAL SCH (10:59)
[2023-03-16 11:36] LABS: Glucose,Whole Blood 227 mg/dL (70-110)
--- NOTE | 2023-03-16 12:48 | P.PN ---
Subjective Progress Note Date: 03/16/23 77 years old male with past medical history of Diabetes Mellitus, Hyperlipidemia, Hypertension, Osteoarthritis, cervical spine decompression and fusion surgery. PCP is Dr. Blount patient was sent from our with for shortness of breathwith hypoxia and saturating 81. 82% on 4 L oxygen via nasal cannula. Right upper extremity PICC line patient last time he was discharged on daptomycin every 48 hours 14 da ys.patient finished treatment and his lower extremity cellulitis is improving patient currently on BiPAP, with oxygen saturation 97%. Afebrile. Labs showed leukocytosis of 14,000, hemoglobin 7.5 creatinine is elevated at 2.8 which is at baseline of 2.2-3.0 Troponin is elevated at 0.15, 0.13.proBNP 4460. TSH is low at 0.09 Urine analysis is not suspicious for infection. chest x-ray: confluent bilateral Multifocal airspace opacities patient is a started on ceftriaxone, Zithromax IV Lasix 03/13/2023 Patient is seen and evaluated in room at bedside; remains on BiPAP; patient went into respiratory distress during the night; stat ABGs were completed which revealed a pO2 of 103 and pCO2 of 41 - Patient is currently on BiPAP with FiO2 of 100% -- Vital signs are reviewed and remained stable Blood work reveals a WBC of 16.8, hemoglobin of 7, hematocrit 22.5 and platelet count of 182, sodium 154 cultures and 2.1, BUN/creatinine of 104/3.15 and blood glucose of 240 --Chest x-ray reveals diffuse bilateral infiltrates possibly diffuse pneumonia versus interstitial edema or acute respiratory distress syndrome - Patient remains on IV heparin for possible PE; V/Q scan cannot be completed due to unstable respiratory status -- Patient has been placed on IV fluids in form of D5 water for hypernatremia; we will monitor sodium levels closely Prognosis remains guarded 03/14/2023 Patient is seen and evaluated in room at bedside; transferred to ICU; patient had been agitated and restless and noncompliant with BiPAP resulting in worsening respiratory status -- Patient has been placed on Precedex and remains on BiPAP with settings of 16/8 and 80% Vital signs are reviewed with temperature of 98.4, pulse 59, respirations 17 and blood pressure of 164/68 White count is 22.4, hemoglobin 7.4, hematocrit 24.5, with a normal platelet count. Sodium 157, potassium 2.8, chlorides 119, CO2 26, BUN 109, and creatinine 2.73. Chest x-ray continues to show bilateral airspace disease, which may be on the basis of fluid, pneumonia, or acute respiratory distress syndrome. The patient's currently on IV heparin empirically. The patient's also receiving Zosyn. Heparin can be discontinued once PE is ruled out 03/15. Patient seen and examined. Labs done this morning showed WBC 18.9, hemoglobin 7.2, platelet count 179, sodium 156, potassium 2.9, BUN 97, creatinine 2.86. Patient was intubated overnight, currently on mechanical ventilation. Currently on propofol. 03/16. Patient seen and examined. Patient continues to be intubated. Hemoglobi n this morning is 6.8. Patient getting 1 unit of packed red blood cell. Blood sugars were elevated, currently on insulin drip REVIEW OF SYSTEMS: Cannot be obtained as patient is intubated PHYSICAL EXAMINATION: GENERAL: The patient is intubated HEENT: Pupils are round and equally reacting to light. EOMI. No scleral icterus. No conjunctival pallor. Normocephalic, atraumatic. No pharyngeal erythema. No thyromegaly. CARDIOVASCULAR: S1 and S2 present. No murmurs, rubs, or gallops. PULMONARY: Coarse Breath sounds bilaterally no wheeze ABDOMEN: Soft, nontender, nondistended, normoactive bowel sounds. No palpable organomegaly. MUSCULOSKELETAL: No joint swelling or deformity. EXTREMITIES: No cyanosis, clubbing, or pedal edema. NEUROLOGICAL: Gross neurological examination did not reveal any focal deficits. SKIN: No rashes. Assessment and plan Bacterial pneumonia Acute hypoxic respiratory failure Pulmonary edema ARDS Elevated troponin normochromic, normocytic anemia chronic kidney disease stage III Diabetes mellitus Hypertension Hyperlipidemia History of osteoarthritis Hypothyroidism with very low TSH upper extremity tremor on mirapex restless leg syndrom Plan: Monitor vital signs Monitor CBC Continue vent management per ICU Strict I's and O's, daily weights continue IV fluids in the form of D5 W continue IV Zosyn Monitor blood sugar levels, continue insulin drip Anticoagulation on hold secondary to drop in hemoglobin Cardiology following Nephrology following Critical care following Labs and medication were reviewed.. Continue same treatment. Continue with symptomatic treatment. Resume home medication. Monitor labs and vitals. DVT and GI prophylaxis. Further recommendations as per clinical course of the patient Dictation was produced using [employer] dictation software. please excuse any grammatical, word or spelling errors. Objective - Vital Signs Vital signs: Vital Signs Temp 97.5 F L 03/16/23 12:00 Pulse 54 L 03/16/23 12:36 Resp 27 H 03/16/23 12:00 BP 167/51 03/16/23 10:24 Pulse Ox 98 03/16/23 12:00 FiO2 50 03/16/23 12:00 Intake & Output 03/15/23 03/16/23 03/16/23 18:59 06:59 18:59 Intake Total 2806.333 2361.957 1598.574 Output Total 1075 195 140 Balance 7782.464 7729.957 1458.574 Weight 105.3 kg 112.4 kg Intake: IV 1620 1650 725 Desmopressin Acetate 32 50 mcg In Sodium Chloride 0. 9% 50 ml @ 200 mls/hr IVPB ONCE ONE Rx#: [id number] Dextrose 5% in Water 1, 1100 750 000 ml @ 150 mls/hr IV . Q6H40M ONE Rx#:[id number] Dextrose 5% in Water 1, 700 575 000 ml @ 75 mls/hr IV . [id number] [facility] Rx#:[id number] NS TKO 120 100 Piperacillin-Tazobactam 3 200 100 100 .375 gm In Sodium Chloride 0.9% 100 ml @ 25 mls/hr IVPB Q8HR [facility] Rx# :[id number] Potassium Chloride 10 meq 200 In Water For Injection 1 100ml.bag @ 100 mls/hr IVPB Q1HR [facility] Rx#: [id number] Intake, IV Titration 436.333 468.957 285.574 Amount Heparin Sod,Pork in 0.45% 23.068 NaCl 25,000 unit In 0.45 % NaCl 1 250ml.bag @ 18 UNITS/KG/HR 19.71 mls/hr IV .[id number] [facility] Rx#: [id number] Insulin Regular 100 unit 94.533 185.574 In Sodium Chloride 0.9% 100 ml @ Titrate IV .Q0M [facility] Rx#:[id number] propofoL 1,000 mg In 413.265 374.424 100 Empty Bag 1 bag @ 15 MCG/ KG/MIN 9.945 mls/hr IV . Q10H4M [facility] Rx#:[id number] Tube Feeding 80 183 138 Blood Product 310 Rc As-1 Unit 310 [id number] Other 670 60 140 Rc As-1 Unit 50 [id number] Output: Urine 1075 195 140 Other: Voiding Method Indwelling Catheter Indwelling Catheter ABP, PAP, CO, CI - Last Documented Arterial Blood Pressure 160/46 - Labs CBC & Chem 7: 03/16/23 04:05 03/16/23 04:05 Labs: Abnormal Lab Results - Last 24 Hours (Table) 03/15/23 03/15/23 03/15/23 Range/Units 05:45 16:00 16:50 WBC (3.8-10.6) k/uL RBC (4.30-5.90) m/uL Hgb (13.0-17.5) gm/dL Hct (39.0-53.0) % MCV (80.0-100.0) fL MCHC (31.0-37.0) g/dL RDW (11.5-15.5) % Plt Count (150-450) k/uL Neutrophils # (1.3-7.7) k/uL Lymphocytes # (1.0-4.8) k/uL ABG pH (7.35-7.45) ABG pCO2 (35-45) mmHg ABG pO2 (83-108) mmHg ABG Total CO2 (19-24) mmol/L ABG O2 Saturation (94-97) % Sodium (137-145) mmol/L Chloride (98-107) mmol/L BUN (9-20) mg/dL Creatinine (0.66-1.25) mg/dL Glucose (74-99) mg/dL POC Glucose (mg/dL) 426 H (70-110) mg/dL Hemoglobin A1c 6.6 H (<=6.0) % Calcium (8.4-10.2) mg/dL AST (17-59) U/L Alkaline Phosphatase (38-126) U/L Total Protein (6.3-8.2) g/dL Albumin (3.5-5.0) g/dL Fluid Appearance Clumped A (Clear) Fluid RBC 3150 H (0-2000) /uL Crossmatch 03/15/23 03/15/23 03/15/23 Range/Units 16:51 21:00 23:08 WBC (3.8-10.6) k/uL RBC (4.30-5.90) m/uL Hgb (13.0-17.5) gm/dL Hct (39.0-53.0) % MCV (80.0-100.0) fL MCHC (31.0-37.0) g/dL RDW (11.5-15.5) % Plt Count (150-450) k/uL Neutrophils # (1.3-7.7) k/uL Lymphocytes # (1.0-4.8) k/uL ABG pH (7.35-7.45) ABG pCO2 (35-45) mmHg ABG pO2 (83-108) mmHg ABG Total CO2 (19-24) mmol/L ABG O2 Saturation (94-97) % Sodium 155 H 151 H (137-145) mmol/L Chloride 117 H 115 H (98-107) mmol/L BUN 100 H 102 H* (9-20) mg/dL Creatinine 2.81 H 2.87 H (0.66-1.25) mg/dL Glucose 415 H 433 H (74-99) mg/dL POC Glucose (mg/dL) 493 H (70-110) mg/dL Hemoglobin A1c (<=6.0) % Calcium 8.2 L (8.4-10.2) mg/dL AST (17-59) U/L Alkaline Phosphatase (38-126) U/L Total Protein (6.3-8.2) g/dL Albumin (3.5-5.0) g/dL Fluid Appearance (Clear) Fluid RBC (0-2000) /uL Crossmatch 03/15/23 03/16/23 03/16/23 Range/Units 23:52 01:00 02:06 WBC (3.8-10.6) k/uL RBC (4.30-5.90) m/uL Hgb (13.0-17.5) gm/dL Hct (39.0-53.0) % MCV (80.0-100.0) fL MCHC (31.0-37.0) g/dL RDW (11.5-15.5) % Plt Count (150-450) k/uL Neutrophils # (1.3-7.7) k/uL Lymphocytes # (1.0-4.8) k/uL ABG pH (7.35-7.45) ABG pCO2 (35-45) mmHg ABG pO2 (83-108) mmHg ABG Total CO2 (19-24) mmol/L ABG O2 Saturation (94-97) % Sodium (137-145) mmol/L Chloride (98-107) mmol/L BUN (9-20) mg/dL Creatinine (0.66-1.25) mg/dL Glucose (74-99) mg/dL POC Glucose (mg/dL) 484 H 497 H 490 H (70-110) mg/dL Hemoglobin A1c (<=6.0) % Calcium (8.4-10.2) mg/dL AST (17-59) U/L Alkaline Phosphatase (38-126) U/L Total Protein (6.3-8.2) g/dL Albumin (3.5-5.0) g/dL Fluid Appearance (Clear) Fluid RBC (0-2000) /uL Crossmatch 03/16/23 03/16/23 03/16/23 Range/Units 02:58 04:05 04:05 WBC 15.0 H (3.8-10.6) k/uL RBC 2.23 L (4.30-5.90) m/uL Hgb 6.8 L* (13.0-17.5) gm/dL Hct 22.4 L (39.0-53.0) % MCV 100.4 H (80.0-100.0) fL MCHC 30.2 L (31.0-37.0) g/dL RDW 16.6 H (11.5-15.5) % Plt Count 144 L (150-450) k/uL Neutrophils # 14.1 H (1.3-7.7) k/uL Lymphocytes # 0.5 L (1.0-4.8) k/uL ABG pH (7.35-7.45) ABG pCO2 (35-45) mmHg ABG pO2 (83-108) mmHg ABG Total CO2 (19-24) mmol/L ABG O2 Saturation (94-97) % Sodium 148 H (137-145) mmol/L Chloride 111 H (98-107) mmol/L BUN 105 H* (9-20) mg/dL Creatinine 3.00 H (0.66-1.25) mg/dL Glucose 443 H (74-99) mg/dL POC Glucose (mg/dL) 482 H (70-110) mg/dL Hemoglobin A1c (<=6.0) % Calcium 8.1 L (8.4-10.2) mg/dL AST 11 L (17-59) U/L Alkaline Phosphatase 142 H (38-126) U/L Total Protein 4.9 L (6.3-8.2) g/dL Albumin 2.3 L (3.5-5.0) g/dL Fluid Appearance (Clear) Fluid RBC (0-2000) /uL Crossmatch 03/16/23 03/16/23 03/16/23 Range/Units 04:12 05:17 05:18 WBC (3.8-10.6) k/uL RBC (4.30-5.90) m/uL Hgb (13.0-17.5) gm/dL Hct (39.0-53.0) % MCV (80.0-100.0) fL MCHC (31.0-37.0) g/dL RDW (11.5-15.5) % Plt Count (150-450) k/uL Neutrophils # (1.3-7.7) k/uL Lymphocytes # (1.0-4.8) k/uL ABG pH (7.35-7.45) ABG pCO2 (35-45) mmHg ABG pO2 (83-108) mmHg ABG Total CO2 (19-24) mmol/L ABG O2 Saturation (94-97) % Sodium (137-145) mmol/L Chloride (98-107) mmol/L BUN (9-20) mg/dL Creatinine (0.66-1.25) mg/dL Glucose (74-99) mg/dL POC Glucose (mg/dL) 468 H 448 H (70-110) mg/dL Hemoglobin A1c (<=6.0) % Calcium (8.4-10.2) mg/dL AST (17-59) U/L Alkaline Phosphatase (38-126) U/L Total Protein (6.3-8.2) g/dL Albumin (3.5-5.0) g/dL Fluid Appearance (Clear) Fluid RBC (0-2000) /uL Crossmatch See Detail 03/16/23 03/16/23 03/16/23 Range/Units 05:40 06:16 07:04 WBC (3.8-10.6) k/uL RBC (4.30-5.90) m/uL Hgb (13.0-17.5) gm/dL Hct (39.0-53.0) % MCV (80.0-100.0) fL MCHC (31.0-37.0) g/dL RDW (11.5-15.5) % Plt Count (150-450) k/uL Neutrophils # (1.3-7.7) k/uL Lymphocytes # (1.0-4.8) k/uL ABG pH 7.30 L (7.35-7.45) ABG pCO2 51 H (35-45) mmHg ABG pO2 207 H (83-108) mmHg ABG Total CO2 27 H (19-24) mmol/L ABG O2 Saturation 99.2 H (94-97) % Sodium (137-145) mmol/L Chloride (98-107) mmol/L BUN (9-20) mg/dL Creatinine (0.66-1.25) mg/dL Glucose (74-99) mg/dL POC Glucose (mg/dL) 428 H 400 H (70-110) mg/dL Hemoglobin A1c (<=6.0) % Calcium (8.4-10.2) mg/dL AST (17-59) U/L Alkaline Phosphatase (38-126) U/L Total Protein (6.3-8.2) g/dL Albumin (3.5-5.0) g/dL Fluid Appearance (Clear) Fluid RBC (0-2000) /uL Crossmatch 03/16/23 03/16/23 03/16/23 Range/Units 08:21 10:31 11:34 WBC (3.8-10.6) k/uL RBC (4.30-5.90) m/uL Hgb (13.0-17.5) gm/dL Hct (39.0-53.0) % MCV (80.0-100.0) fL MCHC (31.0-37.0) g/dL RDW (11.5-15.5) % Plt Count (150-450) k/uL Neutrophils # (1.3-7.7) k/uL Lymphocytes # (1.0-4.8) k/uL ABG pH (7.35-7.45) ABG pCO2 (35-45) mmHg ABG pO2 (83-108) mmHg ABG Total CO2 (19-24) mmol/L ABG O2 Saturation (94-97) % Sodium (137-145) mmol/L Chloride (98-107) mmol/L BUN (9-20) mg/dL Creatinine (0.66-1.25) mg/dL Glucose (74-99) mg/dL POC Glucose (mg/dL) 348 H 294 H 227 H (70-110) mg/dL Hemoglobin A1c (<=6.0) % Calcium (8.4-10.2) mg/dL AST (17-59) U/L Alkaline Phosphatase (38-126) U/L Total Protein (6.3-8.2) g/dL Albumin (3.5-5.0) g/dL Fluid Appearance (Clear) Fluid RBC (0-2000) /uL Crossmatch Microbiology - Last 24 Hours (Table) 03/15/23 16:00 Gram Stain - Preliminary Bronchial Washings - Random Bronchial Washings Culture - Preliminary 03/15/23 01:20 Gram Stain - Preliminary Sputum
[2023-03-16 13:27] LABS: Glucose,Whole Blood 198 mg/dL (70-110)
[2023-03-16 14:15] LABS: Glucose,Whole Blood 167 mg/dL (70-110)
[2023-03-16 15:10] LABS: Glucose,Whole Blood 143 mg/dL (70-110)
--- NOTE | 2023-03-16 15:37 | P.PN ---
Subjective Progress Note Date: 03/16/23 Principal diagnosis: Sepsis/pneumonia Patient is a 77-year-old male with a past medical his significant for diabetes mellitus hypertension hyperlipidemia prostate disorder presenting to the hospital on 03/07/2023 for evaluation of increasing shortness of breath weakness and mental status changes, subsequently did have worsening of his respiratory status requiring transfer the ICU ended up getting intubated, the patient is status post bronchoscopy completed on 03/15/2023 On today's evaluation that is03/16/2023, the patient remains to be afebrile, the patient is currently on 40% FiO2, the patient is hemodynamically stable not requiring any pressor support and no significant purulent secretions through the ET or diarrhea reported by the nursing staff Patient white count is down to 15,000, creatinine is 3.0 ,BAL pending Objective - Vital Signs Vital signs: Vital Signs Temp 97.5 F L 03/16/23 12:00 Pulse 49 L 03/16/23 14:00 Resp 26 H 03/16/23 14:00 BP 167/51 03/16/23 10:24 Pulse Ox 95 03/16/23 14:00 FiO2 40 03/16/23 12:37 Intake & Output 03/15/23 03/16/23 03/16/23 18:59 06:59 18:59 Intake Total 2806.333 2361.957 1794.574 Output Total 1075 195 180 Balance 4368.477 1642.957 1614.574 Weight 105.3 kg 112.4 kg Intake: IV 1620 1650 875 Desmopressin Acetate 32 50 mcg In Sodium Chloride 0. 9% 50 ml @ 200 mls/hr IVPB ONCE ONE Rx#: [id number] Dextrose 5% in Water 1, 1100 750 000 ml @ 150 mls/hr IV . Q6H40M ONE Rx#:[id number] Dextrose 5% in Water 1, 700 725 000 ml @ 75 mls/hr IV . [id number] [facility] Rx#:[id number] NS TKO 120 100 Piperacillin-Tazobactam 3 200 100 100 .375 gm In Sodium Chloride 0.9% 100 ml @ 25 mls/hr IVPB Q8HR [facility] Rx# :[id number] Potassium Chloride 10 meq 200 In Water For Injection 1 100ml.bag @ 100 mls/hr IVPB Q1HR [facility] Rx#: [id number] Intake, IV Titration 436.333 468.957 285.574 Amount Heparin Sod,Pork in 0.45% 23.068 NaCl 25,000 unit In 0.45 % NaCl 1 250ml.bag @ 18 UNITS/KG/HR 19.71 mls/hr IV .[id number] [facility] Rx#: [id number] Insulin Regular 100 unit 94.533 185.574 In Sodium Chloride 0.9% 100 ml @ Titrate IV .Q0M [facility] Rx#:[id number] propofoL 1,000 mg In 413.265 374.424 100 Empty Bag 1 bag @ 15 MCG/ KG/MIN 9.945 mls/hr IV . Q10H4M [facility] Rx#:[id number] Tube Feeding 80 183 184 Blood Product 310 Rc As-1 Unit 310 [id number] Other 670 60 140 Rc As-1 Unit 50 [id number] Output: Urine 1075 195 180 Other: Voiding Method Indwelling Catheter Indwelling Catheter ABP, PAP, CO, CI - Last Documented Arterial Blood Pressure 151/44 - Exam GENERAL DESCRIPTION: An elderly male intubated on the vent in no distress RESPIRATORY SYSTEM: Unlabored breathing , decreased breath sounds at bases HEART: S1 S2 regular rate and rhythm , ABDOMEN: Soft , no tenderness EXTREMITIES: No edema feet - Labs CBC & Chem 7: 03/16/23 04:05 03/16/23 04:05 Labs: Abnormal Lab Results - Last 24 Hours (Table) 03/15/23 03/15/23 03/15/23 Range/Units 05:45 16:00 16:50 WBC (3.8-10.6) k/uL RBC (4.30-5.90) m/uL Hgb (13.0-17.5) gm/dL Hct (39.0-53.0) % MCV (80.0-100.0) fL MCHC (31.0-37.0) g/dL RDW (11.5-15.5) % Plt Count (150-450) k/uL Neutrophils # (1.3-7.7) k/uL Lymphocytes # (1.0-4.8) k/uL ABG pH (7.35-7.45) ABG pCO2 (35-45) mmHg ABG pO2 (83-108) mmHg ABG Total CO2 (19-24) mmol/L ABG O2 Saturation (94-97) % Sodium (137-145) mmol/L Chloride (98-107) mmol/L BUN (9-20) mg/dL Creatinine (0.66-1.25) mg/dL Glucose (74-99) mg/dL POC Glucose (mg/dL) 426 H (70-110) mg/dL Hemoglobin A1c 6.6 H (<=6.0) % Calcium (8.4-10.2) mg/dL AST (17-59) U/L Alkaline Phosphatase (38-126) U/L Total Protein (6.3-8.2) g/dL Albumin (3.5-5.0) g/dL Fluid Appearance Clumped A (Clear) Fluid RBC 3150 H (0-2000) /uL Crossmatch 03/15/23 03/15/23 03/15/23 Range/Units 16:51 21:00 23:08 WBC (3.8-10.6) k/uL RBC (4.30-5.90) m/uL Hgb (13.0-17.5) gm/dL Hct (39.0-53.0) % MCV (80.0-100.0) fL MCHC (31.0-37.0) g/dL RDW (11.5-15.5) % Plt Count (150-450) k/uL Neutrophils # (1.3-7.7) k/uL Lymphocytes # (1.0-4.8) k/uL ABG pH (7.35-7.45) ABG pCO2 (35-45) mmHg ABG pO2 (83-108) mmHg ABG Total CO2 (19-24) mmol/L ABG O2 Saturation (94-97) % Sodium 155 H 151 H (137-145) mmol/L Chloride 117 H 115 H (98-107) mmol/L BUN 100 H 102 H* (9-20) mg/dL Creatinine 2.81 H 2.87 H (0.66-1.25) mg/dL Glucose 415 H 433 H (74-99) mg/dL POC Glucose (mg/dL) 493 H (70-110) mg/dL Hemoglobin A1c (<=6.0) % Calcium 8.2 L (8.4-10.2) mg/dL AST (17-59) U/L Alkaline Phosphatase (38-126) U/L Total Protein (6.3-8.2) g/dL Albumin (3.5-5.0) g/dL Fluid Appearance (Clear) Fluid RBC (0-2000) /uL Crossmatch 03/15/23 03/16/23 03/16/23 Range/Units 23:52 01:00 02:06 WBC (3.8-10.6) k/uL RBC (4.30-5.90) m/uL Hgb (13.0-17.5) gm/dL Hct (39.0-53.0) % MCV (80.0-100.0) fL MCHC (31.0-37.0) g/dL RDW (11.5-15.5) % Plt Count (150-450) k/uL Neutrophils # (1.3-7.7) k/uL Lymphocytes # (1.0-4.8) k/uL ABG pH (7.35-7.45) ABG pCO2 (35-45) mmHg ABG pO2 (83-108) mmHg ABG Total CO2 (19-24) mmol/L ABG O2 Saturation (94-97) % Sodium (137-145) mmol/L Chloride (98-107) mmol/L BUN (9-20) mg/dL Creatinine (0.66-1.25) mg/dL Glucose (74-99) mg/dL POC Glucose (mg/dL) 484 H 497 H 490 H (70-110) mg/dL Hemoglobin A1c (<=6.0) % Calcium (8.4-10.2) mg/dL AST (17-59) U/L Alkaline Phosphatase (38-126) U/L Total Protein (6.3-8.2) g/dL Albumin (3.5-5.0) g/dL Fluid Appearance (Clear) Fluid RBC (0-2000) /uL Crossmatch 03/16/23 03/16/23 03/16/23 Range/Units 02:58 04:05 04:05 WBC 15.0 H (3.8-10.6) k/uL RBC 2.23 L (4.30-5.90) m/uL Hgb 6.8 L* (13.0-17.5) gm/dL Hct 22.4 L (39.0-53.0) % MCV 100.4 H (80.0-100.0) fL MCHC 30.2 L (31.0-37.0) g/dL RDW 16.6 H (11.5-15.5) % Plt Count 144 L (150-450) k/uL Neutrophils # 14.1 H (1.3-7.7) k/uL Lymphocytes # 0.5 L (1.0-4.8) k/uL ABG pH (7.35-7.45) ABG pCO2 (35-45) mmHg ABG pO2 (83-108) mmHg ABG Total CO2 (19-24) mmol/L ABG O2 Saturation (94-97) % Sodium 148 H (137-145) mmol/L Chloride 111 H (98-107) mmol/L BUN 105 H* (9-20) mg/dL Creatinine 3.00 H (0.66-1.25) mg/dL Glucose 443 H (74-99) mg/dL POC Glucose (mg/dL) 482 H (70-110) mg/dL Hemoglobin A1c (<=6.0) % Calcium 8.1 L (8.4-10.2) mg/dL AST 11 L (17-59) U/L Alkaline Phosphatase 142 H (38-126) U/L Total Protein 4.9 L (6.3-8.2) g/dL Albumin 2.3 L (3.5-5.0) g/dL Fluid Appearance (Clear) Fluid RBC (0-2000) /uL Crossmatch 03/16/23 03/16/23 03/16/23 Range/Units 04:12 05:17 05:18 WBC (3.8-10.6) k/uL RBC (4.30-5.90) m/uL Hgb (13.0-17.5) gm/dL Hct (39.0-53.0) % MCV (80.0-100.0) fL MCHC (31.0-37.0) g/dL RDW (11.5-15.5) % Plt Count (150-450) k/uL Neutrophils # (1.3-7.7) k/uL Lymphocytes # (1.0-4.8) k/uL ABG pH (7.35-7.45) ABG pCO2 (35-45) mmHg ABG pO2 (83-108) mmHg ABG Total CO2 (19-24) mmol/L ABG O2 Saturation (94-97) % Sodium (137-145) mmol/L Chloride (98-107) mmol/L BUN (9-20) mg/dL Creatinine (0.66-1.25) mg/dL Glucose (74-99) mg/dL POC Glucose (mg/dL) 468 H 448 H (70-110) mg/dL Hemoglobin A1c (<=6.0) % Calcium (8.4-10.2) mg/dL AST (17-59) U/L Alkaline Phosphatase (38-126) U/L Total Protein (6.3-8.2) g/dL Albumin (3.5-5.0) g/dL Fluid Appearance (Clear) Fluid RBC (0-2000) /uL Crossmatch See Detail 03/16/23 03/16/23 03/16/23 Range/Units 05:40 06:16 07:04 WBC (3.8-10.6) k/uL RBC (4.30-5.90) m/uL Hgb (13.0-17.5) gm/dL Hct (39.0-53.0) % MCV (80.0-100.0) fL MCHC (31.0-37.0) g/dL RDW (11.5-15.5) % Plt Count (150-450) k/uL Neutrophils # (1.3-7.7) k/uL Lymphocytes # (1.0-4.8) k/uL ABG pH 7.30 L (7.35-7.45) ABG pCO2 51 H (35-45) mmHg ABG pO2 207 H (83-108) mmHg ABG Total CO2 27 H (19-24) mmol/L ABG O2 Saturation 99.2 H (94-97) % Sodium (137-145) mmol/L Chloride (98-107) mmol/L BUN (9-20) mg/dL Creatinine (0.66-1.25) mg/dL Glucose (74-99) mg/dL POC Glucose (mg/dL) 428 H 400 H (70-110) mg/dL Hemoglobin A1c (<=6.0) % Calcium (8.4-10.2) mg/dL AST (17-59) U/L Alkaline Phosphatase (38-126) U/L Total Protein (6.3-8.2) g/dL Albumin (3.5-5.0) g/dL Fluid Appearance (Clear) Fluid RBC (0-2000) /uL Crossmatch 03/16/23 03/16/23 03/16/23 Range/Units 08:21 10:31 11:34 WBC (3.8-10.6) k/uL RBC (4.30-5.90) m/uL Hgb (13.0-17.5) gm/dL Hct (39.0-53.0) % MCV (80.0-100.0) fL MCHC (31.0-37.0) g/dL RDW (11.5-15.5) % Plt Count (150-450) k/uL Neutrophils # (1.3-7.7) k/uL Lymphocytes # (1.0-4.8) k/uL ABG pH (7.35-7.45) ABG pCO2 (35-45) mmHg ABG pO2 (83-108) mmHg ABG Total CO2 (19-24) mmol/L ABG O2 Saturation (94-97) % Sodium (137-145) mmol/L Chloride (98-107) mmol/L BUN (9-20) mg/dL Creatinine (0.66-1.25) mg/dL Glucose (74-99) mg/dL POC Glucose (mg/dL) 348 H 294 H 227 H (70-110) mg/dL Hemoglobin A1c (<=6.0) % Calcium (8.4-10.2) mg/dL AST (17-59) U/L Alkaline Phosphatase (38-126) U/L Total Protein (6.3-8.2) g/dL Albumin (3.5-5.0) g/dL Fluid Appearance (Clear) Fluid RBC (0-2000) /uL Crossmatch 03/16/23 03/16/23 Range/Units 13:25 14:14 WBC (3.8-10.6) k/uL RBC (4.30-5.90) m/uL Hgb (13.0-17.5) gm/dL Hct (39.0-53.0) % MCV (80.0-100.0) fL MCHC (31.0-37.0) g/dL RDW (11.5-15.5) % Plt Count (150-450) k/uL Neutrophils # (1.3-7.7) k/uL Lymphocytes # (1.0-4.8) k/uL ABG pH (7.35-7.45) ABG pCO2 (35-45) mmHg ABG pO2 (83-108) mmHg ABG Total CO2 (19-24) mmol/L ABG O2 Saturation (94-97) % Sodium (137-145) mmol/L Chloride (98-107) mmol/L BUN (9-20) mg/dL Creatinine (0.66-1.25) mg/dL Glucose (74-99) mg/dL POC Glucose (mg/dL) 198 H 167 H (70-110) mg/dL Hemoglobin A1c (<=6.0) % Calcium (8.4-10.2) mg/dL AST (17-59) U/L Alkaline Phosphatase (38-126) U/L Total Protein (6.3-8.2) g/dL Albumin (3.5-5.0) g/dL Fluid Appearance (Clear) Fluid RBC (0-2000) /uL Crossmatch Microbiology - Last 24 Hours (Table) 03/15/23 16:00 Gram Stain - Preliminary Bronchial Washings - Random Bronchial Washings Culture - Preliminary 03/15/23 01:20 Gram Stain - Preliminary Sputum Assessment and Plan (1) Pneumonia Current Visit: No Status: Acute Code(s): J18.9 - PNEUMONIA, UNSPECIFIED ORGANISM SNOMED Code(s): 319915590 Plan: 1patient with acute respiratory failure which is multifactorial in this patient has been in the hospital for almost 8 to 9 days with initial presentation of sepsis possible pneumonia however no cultures were done during this hospital stay patient did not get intubated because of worsening respiratory status and culture has been obtained and possible plan for bronchoscopy on 03/15/2023, we will need to cover for the gram-negative to be the likely pathogen 2-cultures are currently pending, patient did have a procalcitonin 2.84 3-patient to continue with Zosyn 3.375 g every 8 hours while waiting for the culture to finalize Dictation was produced using [employer] dictation software. please excuse any grammatical, word or spelling errors. Time with Patient: Less than 30
--- NOTE | 2023-03-16 15:50 | US ---
EXAMINATION TYPE: US kidneys/renal and bladder DATE OF EXAM: 03/16/2023 COMPARISON: 02/06/22 CLINICAL INDICATION: Male, 77 years old with history of BOZENA. EXAM MEASUREMENTS: Right Kidney: obscured by overlying bowel and shadowing from gallbladder Left Kidney: 8.7x4.9x5.5 cm Right Kidney: Obscured by overlying bowel gas Left Kidney: wnl Bladder: Unable to adequately assess due to catheter Bilateral Jets seen: No Cost Recovery Technician notes: Right kidney not visualized due to bowel, body habitus, and shadowing from the gallbladder. Incidenta l imaging performed of the GB showing sludge and echogenic shadowing areas. CBD markedly dilated exhi biting the "shotgun sign" Left kidney difficult to visualize due to bowel, body habitus, and vented patient. Also, inability to change positions. 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 IMPRESSION: 1. Inadequate imaging of the right kidney due to above mentioned exam limitations. 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 2. No evidence hydronephrosis on the left. 3. Extensive sludge and calculi within the gallbladder. The bile duct is dilated up to 1.2 cm. Correl ate with alkaline phosphatase and bili levels to exclude obstruction. 4. Bladder could not be assessed due to indwelling Meneses catheter.
[2023-03-16 17:05] LABS: Glucose,Whole Blood 126 mg/dL (70-110)
[2023-03-16] MEDS: HYDROmorphone 1 MG/ML 1 ML SYRINGE IVP PRN ×2 (17:42→23:51)
[2023-03-16 18:22] LABS: Glucose,Whole Blood 110 mg/dL (70-110)
[2023-03-16 18:52] LABS: African American GFR (CKD) 23 (>60 ml/min/1.73 sqM); Anion Gap 11 mmol/L; Carbon Dioxide 24 mmol/L (22-30); Chloride 111 mmol/L (98-107); Glucose 100 mg/dL (74-99); Non-African American GFR(CKD) 20 (>60 ml/min/1.73 sqM); Potassium 3.7 mmol/L (3.5-5.1); Sodium 146 mmol/L (137-145)
[2023-03-16 19:08] LABS: Glucose,Whole Blood 92 mg/dL (70-110)
[2023-03-16 19:20] LABS: Blood Urea Nitrogen 107 mg/dL (9-20)
[2023-03-16 19:55] LABS: Glucose,Whole Blood 99 mg/dL (70-110)
[2023-03-16] MEDS ORDERED: POTASSIUM BICARBONATE/CIT AC 20 MEQ TABLET.EFF NG-TUBE SCH (20:00)
[2023-03-16 20:56] LABS: Glucose,Whole Blood 117 mg/dL (70-110)
[2023-03-16 22:13] LABS: Glucose,Whole Blood 154 mg/dL (70-110)
[2023-03-16 23:08] LABS: Glucose,Whole Blood 207 mg/dL (70-110)
[2023-03-16 23:41] LABS: Glucose,Whole Blood 219 mg/dL (70-110)
[2023-03-16 23:58] LABS: Glucose,Whole Blood 217 mg/dL (70-110)
[2023-03-17] MEDS: IPRATROPIUM-ALBUTEROL 3 ML NEB INHALATION SCH ×7 (00:06→23:49)
[2023-03-17 01:03] LABS: Glucose,Whole Blood 205 mg/dL (70-110)
[2023-03-17] MEDS: INSULIN REGULAR 100 UNIT in SODIUM CHLORIDE 0.9% 100 ML IV SCH ×3 (01:11→12:41)
[2023-03-17] MEDS: DEXTROSE 5% IN WATER 1,000 ML IV SCH (01:22)
[2023-03-17 02:14] LABS: Glucose,Whole Blood 178 mg/dL (70-110)
[2023-03-17 02:45] LABS: Glucose,Whole Blood 170 mg/dL (70-110)
[2023-03-17 03:27] LABS: Glucose,Whole Blood 156 mg/dL (70-110)
[2023-03-17 04:26] LABS: Glucose,Whole Blood 144 mg/dL (70-110)
[2023-03-17 05:22] LABS: Glucose,Whole Blood 137 mg/dL (70-110)
[2023-03-17 05:22] LABS: ABG HCO3 25 mmol/L (21-25); ABG PCO2 43 mmHg (35-45); ABG PH 7.38 (7.35-7.45); ABG PO2 69 mmHg (83-108); ABG TCO2 27 mmol/L (19-24)
[2023-03-17 05:48] LABS: ALT 15 U/L (4-49); AST 13 U/L (17-59); African American GFR (CKD) 20 (>60 ml/min/1.73 sqM); Albumin 2.3 g/dL (3.5-5.0); Alkaline Phosphatase 108 U/L (38-126); Anion Gap 11 mmol/L; Calcium 7.7 mg/dL (8.4-10.2); Carbon Dioxide 23 mmol/L (22-30); Chloride 109 mmol/L (98-107); Glucose 120 mg/dL (74-99); Non-African American GFR(CKD) 18 (>60 ml/min/1.73 sqM); Potassium 4.2 mmol/L (3.5-5.1); Sodium 143 mmol/L (137-145); Total Bilirubin 0.4 mg/dL (0.2-1.3); Total Protein 4.6 g/dL (6.3-8.2)
[2023-03-17 05:51] LABS: Anisocytosis Slight; HCT 22.9 % (39.0-53.0); Hypochromasia Moderate; MCH 30.7 pg (25.0-35.0); MCHC 32.9 g/dL (31.0-37.0); MCV 93.2 fL (80.0-100.0); Platelet Count 138 k/uL (150-450); RBC 2.45 m/uL (4.30-5.90); RDW 17.3 % (11.5-15.5); WBC 17.7 k/uL (3.8-10.6)
[2023-03-17 05:57] LABS: HGB 7.5 gm/dL (13.0-17.5)
[2023-03-17 06:26] LABS: Glucose,Whole Blood 153 mg/dL (70-110)
[2023-03-17 06:35] LABS: Blood Urea Nitrogen 111 mg/dL (9-20)
--- NOTE | 2023-03-17 07:12 | XR ---
EXAMINATION TYPE: XR chest 1V portable DATE OF EXAM: 03/17/2023 4:37 AM COMPARISON: Chest radiographs from TECHNIQUE: XR chest 1V portable Portable AP radiograph of the chest. CLINICAL INDICATION:Male, 77 years old with history of Tube placement; FINDINGS: Lungs/Pleura: No pleural effusion or pneumothorax. Bibasilar patchy airspace opacities redemonstrated . Pulmonary vascularity: Unremarkable. Heart/mediastinum: Cardiomediastinal silhouette is stable. Atherosclerotic calcifications are seen i n the aorta. Musculoskeletal: No acute osseous pathology. Other findings: None Lines/Tubes: Endotracheal tube and enteric tube are in stable position. IMPRESSION: 1. Similar multifocal bibasilar patchy airspace opacities concerning for pneumonia. 2. Stable support tubes.
[2023-03-17 07:15] LABS: Glucose,Whole Blood 186 mg/dL (70-110)
--- NOTE | 2023-03-17 07:19 | P.PN ---
Subjective Progress Note Date: 03/17/23 Principal diagnosis: Paroxysmal atrial fibrillation This is a 77-year-old gentleman with coronary artery disease and congestive heart failure as well as chronic kidney disease and multiple comorbid conditions was admitted to the hospital with change in mental status and he was diagnosed with pneumonia. We consulted to see the patient because of bradycardia and also because of atrial fibrillation. Last night the patient went into respiratory failure and he was intubated. 03/15/2023 The patient was seen and evaluated this morning. He is currently intubated and he is on mechanical ventilation. Hemodynamically he is a stable as a matter of fact he is hypertensive. He is bradycardic with heart rate in the 40s and he is in sinus bradycardia. At the same time work from this morning showed hypokalemia and he continues to be in renal failure with creatinine of 2.8. He is on heparin IV for oral anticoagulation with a chest x-ray showed bilateral infiltrate definitely concerning for pneumonia. March 162022 The patient was seen and evaluated this morning. He continues to be intubated on mechanical ventilation. Hemodynamically he is a stable beside bradycardia with heart rate in the 50s. His hemoglobin drop to below 7 and currently is in process of receiving blood. For that reason heparin was stopped. He is on Lasix per nephrology service. Creatinine is 3 this morning. Examination is remarkable for regular rhythm with diminished breathing sounds b ilaterally and bilateral lower extremity 03/17/2023 The patient was seen and evaluated this morning. He continues to be intubated and on mechanical ventilation. Hemodynamically he is stable and currently he is not on any vasopressors. As a matter of fact the bradycardia has improved. He is bradycardic only intermittently. He is not on any AV ayan blockers at this point. Hemoglobin has been stable at 7.1 this morning. He receives 1 unit of packed RBC yesterday. He is not bleeding. He is not on any anticoagulation at this point which I would agree on to rule out any gastrointestinal bleeding etiology. The kidney function is worse today. He was on Lasix and that has a systolic. Examination is remarkable for diminished breathing sounds bilaterally and mild bilateral lower extremity edema Assessment Change in mental status Pneumonia Paroxysmal atrial fibrillation. Currently the patient is in sinus rhythm Sinus bradycardia Severe electrolytes abnormalities Acute on chronic renal failure Multiple comorbid conditions Anemia Plan Continue the current medical regimen Avoid any AV ayan zurdo agents at this point Avoid oral anticoagulation to rule out gastrointestinal bleeding etiology Follow-up with the patient Objective - Vital Signs Vital signs: Vital Signs Temp 98.7 F 03/17/23 04:00 Pulse 60 03/17/23 06:00 Resp 30 H 03/17/23 06:00 BP 129/52 03/17/23 04:00 Pulse Ox 91 L 03/17/23 06:00 FiO2 40 03/17/23 06:00 Intake & Output 03/16/23 03/17/23 03/17/23 18:59 06:59 18:59 Intake Total 2491.544 1860.377 Output Total 275 360 Balance 2216.544 1500.377 Weight 116.9 kg Intake: IV 1175 1110 Desmopressin Acetate 32 50 mcg In Sodium Chloride 0. 9% 50 ml @ 200 mls/hr IVPB ONCE ONE Rx#: [id number] Dextrose 5% in Water 1, 1025 900 000 ml @ 75 mls/hr IV . [id number] FRANKO Rx#:[id number] NS TKO 110 Piperacillin-Tazobactam 3 100 100 .375 gm In Sodium Chloride 0.9% 100 ml @ 25 mls/hr IVPB Q8HR FRANKO Rx# :[id number] Intake, IV Titration 560.544 384.377 Amount Insulin Regular 100 unit 360.544 84.377 In Sodium Chloride 0.9% 100 ml @ Titrate IV .Q0M FRANKO Rx#:[id number] propofoL 1,000 mg In 200 300 Empty Bag 1 bag @ 15 MCG/ KG/MIN 9.945 mls/hr IV . Q10H4M FRANKO Rx#:[id number] Tube Feeding 276 276 Blood Product 310 Rc As-1 Unit 310 [id number] Other 170 90 Rc As-1 Unit 50 [id number] Output: Urine 275 360 Other: Voiding Method Indwelling Catheter Indwelling Catheter ABP, PAP, CO, CI - Last Documented Arterial Blood Pressure 146/48 - Labs CBC & Chem 7: 03/17/23 05:21 03/17/23 05:21 Labs: Abnormal Lab Results - Last 24 Hours (Table) 03/15/23 03/15/23 03/16/23 Range/Units 05:45 16:00 05:17 WBC (3.8-10.6) k/uL RBC (4.30-5.90) m/uL Hgb (13.0-17.5) gm/dL Hct (39.0-53.0) % RDW (11.5-15.5) % Plt Count (150-450) k/uL ABG pO2 (83-108) mmHg ABG Total CO2 (19-24) mmol/L Sodium (137-145) mmol/L Chloride (98-107) mmol/L BUN (9-20) mg/dL Creatinine (0.66-1.25) mg/dL Glucose (74-99) mg/dL POC Glucose (mg/dL) (70-110) mg/dL Hemoglobin A1c 6.6 H (<=6.0) % Calcium (8.4-10.2) mg/dL AST (17-59) U/L Total Protein (6.3-8.2) g/dL Albumin (3.5-5.0) g/dL Fluid RBC 3150 H (0-2000) /uL Crossmatch See Detail 03/16/23 03/16/23 03/16/23 Range/Units 08:21 10:31 11:34 WBC (3.8-10.6) k/uL RBC (4.30-5.90) m/uL Hgb (13.0-17.5) gm/dL Hct (39.0-53.0) % RDW (11.5-15.5) % Plt Count (150-450) k/uL ABG pO2 (83-108) mmHg ABG Total CO2 (19-24) mmol/L Sodium (137-145) mmol/L Chloride (98-107) mmol/L BUN (9-20) mg/dL Creatinine (0.66-1.25) mg/dL Glucose (74-99) mg/dL POC Glucose (mg/dL) 348 H 294 H 227 H (70-110) mg/dL Hemoglobin A1c (<=6.0) % Calcium (8.4-10.2) mg/dL AST (17-59) U/L Total Protein (6.3-8.2) g/dL Albumin (3.5-5.0) g/dL Fluid RBC (0-2000) /uL Crossmatch 03/16/23 03/16/23 03/16/23 Range/Units 13:25 14:14 15:08 WBC (3.8-10.6) k/uL RBC (4.30-5.90) m/uL Hgb (13.0-17.5) gm/dL Hct (39.0-53.0) % RDW (11.5-15.5) % Plt Count (150-450) k/uL ABG pO2 (83-108) mmHg ABG Total CO2 (19-24) mmol/L Sodium (137-145) mmol/L Chloride (98-107) mmol/L BUN (9-20) mg/dL Creatinine (0.66-1.25) mg/dL Glucose (74-99) mg/dL POC Glucose (mg/dL) 198 H 167 H 143 H (70-110) mg/dL Hemoglobin A1c (<=6.0) % Calcium (8.4-10.2) mg/dL AST (17-59) U/L Total Protein (6.3-8.2) g/dL Albumin (3.5-5.0) g/dL Fluid RBC (0-2000) /uL Crossmatch 03/16/23 03/16/23 03/16/23 Range/Units 17:04 18:17 20:55 WBC (3.8-10.6) k/uL RBC (4.30-5.90) m/uL Hgb (13.0-17.5) gm/dL Hct (39.0-53.0) % RDW (11.5-15.5) % Plt Count (150-450) k/uL ABG pO2 (83-108) mmHg ABG Total CO2 (19-24) mmol/L Sodium 146 H (137-145) mmol/L Chloride 111 H (98-107) mmol/L BUN 107 H* (9-20) mg/dL Creatinine 2.96 H (0.66-1.25) mg/dL Glucose 100 H (74-99) mg/dL POC Glucose (mg/dL) 126 H 117 H (70-110) mg/dL Hemoglobin A1c (<=6.0) % Calcium 8.0 L (8.4-10.2) mg/dL AST (17-59) U/L Total Protein (6.3-8.2) g/dL Albumin (3.5-5.0) g/dL Fluid RBC (0-2000) /uL Crossmatch 03/16/23 03/16/23 03/16/23 Range/Units 22:11 23:07 23:40 WBC (3.8-10.6) k/uL RBC (4.30-5.90) m/uL Hgb (13.0-17.5) gm/dL Hct (39.0-53.0) % RDW (11.5-15.5) % Plt Count (150-450) k/uL ABG pO2 (83-108) mmHg ABG Total CO2 (19-24) mmol/L Sodium (137-145) mmol/L Chloride (98-107) mmol/L BUN (9-20) mg/dL Creatinine (0.66-1.25) mg/dL Glucose (74-99) mg/dL POC Glucose (mg/dL) 154 H 207 H 219 H (70-110) mg/dL Hemoglobin A1c (<=6.0) % Calcium (8.4-10.2) mg/dL AST (17-59) U/L Total Protein (6.3-8.2) g/dL Albumin (3.5-5.0) g/dL Fluid RBC (0-2000) /uL Crossmatch 03/16/23 03/17/23 03/17/23 Range/Units 23:57 01:01 02:13 WBC (3.8-10.6) k/uL RBC (4.30-5.90) m/uL Hgb (13.0-17.5) gm/dL Hct (39.0-53.0) % RDW (11.5-15.5) % Plt Count (150-450) k/uL ABG pO2 (83-108) mmHg ABG Total CO2 (19-24) mmol/L Sodium (137-145) mmol/L Chloride (98-107) mmol/L BUN (9-20) mg/dL Creatinine (0.66-1.25) mg/dL Glucose (74-99) mg/dL POC Glucose (mg/dL) 217 H 205 H 178 H (70-110) mg/dL Hemoglobin A1c (<=6.0) % Calcium (8.4-10.2) mg/dL AST (17-59) U/L Total Protein (6.3-8.2) g/dL Albumin (3.5-5.0) g/dL Fluid RBC (0-2000) /uL Crossmatch 03/17/23 03/17/23 03/17/23 Range/Units 02:43 03:25 04:13 WBC (3.8-10.6) k/uL RBC (4.30-5.90) m/uL Hgb (13.0-17.5) gm/dL Hct (39.0-53.0) % RDW (11.5-15.5) % Plt Count (150-450) k/uL ABG pO2 69 L (83-108) mmHg ABG Total CO2 27 H (19-24) mmol/L Sodium (137-145) mmol/L Chloride (98-107) mmol/L BUN (9-20) mg/dL Creatinine (0.66-1.25) mg/dL Glucose (74-99) mg/dL POC Glucose (mg/dL) 170 H 156 H (70-110) mg/dL Hemoglobin A1c (<=6.0) % Calcium (8.4-10.2) mg/dL AST (17-59) U/L Total Protein (6.3-8.2) g/dL Albumin (3.5-5.0) g/dL Fluid RBC (0-2000) /uL Crossmatch 03/17/23 03/17/23 03/17/23 Range/Units 04:24 05:19 05:21 WBC 17.7 H (3.8-10.6) k/uL RBC 2.45 L (4.30-5.90) m/uL Hgb 7.5 L (13.0-17.5) gm/dL Hct 22.9 L (39.0-53.0) % RDW 17.3 H (11.5-15.5) % Plt Count 138 L (150-450) k/uL ABG pO2 (83-108) mmHg ABG Total CO2 (19-24) mmol/L Sodium (137-145) mmol/L Chloride (98-107) mmol/L BUN (9-20) mg/dL Creatinine (0.66-1.25) mg/dL Glucose (74-99) mg/dL POC Glucose (mg/dL) 144 H 137 H (70-110) mg/dL Hemoglobin A1c (<=6.0) % Calcium (8.4-10.2) mg/dL AST (17-59) U/L Total Protein (6.3-8.2) g/dL Albumin (3.5-5.0) g/dL Fluid RBC (0-2000) /uL Crossmatch 03/17/23 03/17/23 03/17/23 Range/Units 05:21 06:24 07:14 WBC (3.8-10.6) k/uL RBC (4.30-5.90) m/uL Hgb (13.0-17.5) gm/dL Hct (39.0-53.0) % RDW (11.5-15.5) % Plt Count (150-450) k/uL ABG pO2 (83-108) mmHg ABG Total CO2 (19-24) mmol/L Sodium (137-145) mmol/L Chloride 109 H (98-107) mmol/L BUN 111 H* (9-20) mg/dL Creatinine 3.26 H (0.66-1.25) mg/dL Glucose 120 H (74-99) mg/dL POC Glucose (mg/dL) 153 H 186 H (70-110) mg/dL Hemoglobin A1c (<=6.0) % Calcium 7.7 L (8.4-10.2) mg/dL AST 13 L (17-59) U/L Total Protein 4.6 L (6.3-8.2) g/dL Albumin 2.3 L (3.5-5.0) g/dL Fluid RBC (0-2000) /uL Crossmatch Microbiology - Last 24 Hours (Table) 03/15/23 16:00 Acid Fast Bacilli Smear - Preliminary Bronchial Washings - Random 03/15/23 16:00 Gram Stain - Preliminary Bronchial Washings - Random Bronchial Washings Culture - Preliminary
[2023-03-17 08:18] LABS: Glucose,Whole Blood 222 mg/dL (70-110)
[2023-03-17] MEDS: FORMOTEROL FUMARATE 20 MCG/2 ML NEBU INHALATION SCH ×2 (08:38→20:16)
[2023-03-17] MEDS: BUDESONIDE 1 MG/2 ML NEBU INHALATION SCH ×2 (08:38→20:16)
[2023-03-17] MEDS: hydrALAZINE HCL 50 MG TAB PO SCH ×2 (08:53→16:47)
[2023-03-17] MEDS: LEVOTHYROXINE IVP 100 MCG/5 ML VIAL IV SCH (08:53)
[2023-03-17] MEDS: CHLORHEXIDINE GLUCONATE 15 ML CUP MUCOUS MEM SCH ×2 (08:53→20:39)
[2023-03-17] MEDS: PIPERACILLIN-TAZOBACTAM 3.375 GM in SODIUM CHLORIDE 0.9% 100 ML IVPB SCH ×2 (08:53→15:58)
[2023-03-17] MEDS: amLODIPine 2.5 MG TAB PO SCH (08:53)
[2023-03-17] MEDS: FAMOTIDINE 20 MG/2 ML VIAL IV SCH (08:54)
[2023-03-17] MEDS: HYDROPHILIC CREAM 180 GM TUBE TOPICAL SCH (08:54)
[2023-03-17 09:12] LABS: Glucose,Whole Blood 212 mg/dL (70-110)
--- NOTE | 2023-03-17 09:48 | P.PN ---
Subjective Progress Note Date: 03/17/23 On today's evaluation of 03/23/2023, I'm seeing the patient in the intensive care unit. At this point in time, the patient is intubated on a mechanical ventilator. Overnight, the patient became acutely hypoxic and more short of breath and he developed diffuse but the pulmonary infiltrates consistent with pneumonia and based on that the patient was intubated and placed on a mechanical ventilator. Note that this patient is 77 years of age. He has diabetes mellitus type 2, chronic kidney disease, hypothyroidism, COPD, hyperlipidemia and hypertension. He was also recently treated for cellulitis of lower extremity, discharged to [facility] for IV antibiotics through a PICC line in his right upper extremity and he received and completed the course of daptomycin. Discharged home to be readmitted for shortness of breath to our hospital on 03/08/2023. Note that the patient was being supported with BiPAP as various pressures. His proBNP level was elevated. His echocardiograms was recent showed a preserved LV function without any significant abnormalities. He was given bronchodilators. He was given IV Solu-Medrol. He was given IV Lasix. Another dose of Lasix was given to him by the nurse practitioner at 2:30 AM this morning. He has a Meneses catheter in place. Urine output is in order of 100 mL an hour. At this point in time, the patient remains on mechanical ventilator. He was quite a successful the mechanical ventilator and he was having frequent episodes of desaturation. He is on propofol running at 55 mcg/kg/m. I switched this patient's blood pressure control mode of mechanical ventilation and currently is on a pressure control of 12, rate of 26, PEEP of 12 with a FiO2 of 60%. His current pulse ox is 95%. He is on IV heparin and this was I believe initiated due to concerns of pulmonary embolism, on an empiric basis. The echoes at 18.9, hemoglobin is at 7.2, platelet count of 179, most recent blood gas showed a pH of 7.38 with a pCO2 of 43 and pO2 of 140. BUN is at 97 with a creatinine of 2.8, sodium level is at 156 and a potassium level is at 2.9. IV fluids are at KVO, 0.9. On today's evaluation of 03/16/2023, the patient is being seen for a follow-up. Remains intubated on mechanical ventilator. He was quite asynchronous with a mechanical ventilator yesterday. Based on that, I put the patient on pressure control mode of mechanical ventilation. This morning he is on a pressure control of 12, PEEP of 12, FiO2 of 50% with a rate of 26. He is on sedative medication the patient is currently on propofol running at 55 mcg/kg/m. He is quite sentences with a mechanical ventilator. A bronchoscopy was done and a bronchial lavage of the right middle lobe was done. The results are still pending for now. Meanwhile, a follow-up chest x-ray from today shows marked improvement and there is interval improvement of the diffuse bilateral pulmonary infiltrates along with some residual interstitial changes present. Nevertheless, the x-rays improved. In same time, Dr. patient is also improved and the patient has a pH of 7.3 with a pCO2 of 51 and pO2 of 207. The patient is afebrile. The patient is hemodynamically stable at this point and he is on no pressors. He remains on bronchodilators. He remains on steroids. He remains on a an empiric antibiotic coverage with IV Zosyn. Also, there is a drop in the hemoglobin down to 6.8 and the patient was given units of packed RBC. No signs of any bleeding. We have not witnessed any melanotic stools or hematemesis on this patient. He remains on enteral feeding for nutritional support and he is receiving vital high-protein at the rate of 23 mL an hour. The patient's sodium level is also improving. His free water deficit is being replaced. He is on D5 water running at 150 mL an hour. Sodium level is down to 148. The patient is also on insulin drip running at 34.8 units an hour. Most recent blood sugar is still elevated at 340. BUN is at 105, creatinine is at 3.0, serum bicarbs at 23, white cell count of 15.0. On today's evaluation of 03/17/2023, the patient remains intubated on a mechanical ventilator. He remains on propofol which is running at 55 mcg/kg/m. He remains on pressure control mode of mechanical ventilation with a pressure control 12, FiO2 at 40%, PEEP of 8 and the rate of 26. His chest x-ray still showing lower lobe bilateral palmar consolidation and infiltrates. Bronchoscopy and the bronchial lavage has yielded no microbial growth and the patient remains on IV Zosyn. No significant oral tracheal secretions. He is afebrile. He is hemodynamically stable. At the same time, the patient's free water deficit from corrected. Sodium level is down to 143. Continues to have chronic kidney disease with a creatinine of 3.26 and a BUN of 111. His blood sugars under better control the patient remains on IV insulin drip which is running at 7 units an hour. His current cardiac rhythm is sinus. No significant tachycardia. He is receiving enteral feeding for nutritional support and the patient is currently on vital high-protein at the rate of 20 mL an hour. Fluid balance is impossible the patient was receiving D5 water to supplement is free w ater deficit. Echocardiogram was showing moderate degree of pulmonary hypertension, preserved LV function,. Objective - Vital Signs Vital signs: Vital Signs Temp 99.3 F 03/17/23 08:00 Pulse 68 03/17/23 09:01 Resp 27 H 03/17/23 09:00 BP 130/57 03/17/23 09:00 Pulse Ox 90 L 03/17/23 09:00 FiO2 40 03/17/23 08:45 Intake & Output 03/16/23 03/17/23 03/17/23 18:59 06:59 18:59 Intake Total 2491.544 1960.377 118.987 Output Total 275 360 35 Balance 2216.544 1600.377 83.987 Weight 116.9 kg Intake: IV 1175 1110 85 Desmopressin Acetate 32 50 mcg In Sodium Chloride 0. 9% 50 ml @ 200 mls/hr IVPB ONCE ONE Rx#: [id number] Dextrose 5% in Water 1, 1025 900 75 000 ml @ 75 mls/hr IV . [id number] [facility] Rx#:[id number] NS TKO 110 10 Piperacillin-Tazobactam 3 100 100 .375 gm In Sodium Chloride 0.9% 100 ml @ 25 mls/hr IVPB Q8HR [facility] Rx# :[id number] Intake, IV Titration 560.544 484.377 10.987 Amount Insulin Regular 100 unit 360.544 84.377 10.987 In Sodium Chloride 0.9% 100 ml @ Titrate IV .Q0M [facility] Rx#:[id number] propofoL 1,000 mg In 200 400 Empty Bag 1 bag @ 15 MCG/ KG/MIN 9.945 mls/hr IV . Q10H4M [facility] Rx#:[id number] Tube Feeding 276 276 23 Blood Product 310 Rc As-1 Unit 310 [id number] Other 170 90 Rc As-1 Unit 50 [id number] Output: Urine 275 360 35 Other: Voiding Method Indwelling Catheter Indwelling Catheter ABP, PAP, CO, CI - Last Documented Arterial Blood Pressure 161/53 - Exam Patient is currently intubated on a mechanical ventilator. Orogastric and orotracheal tube are both in place. The patient is sedated with propofol. HEENT examination is grossly unremarkable. Neck supple. Full range of motion. No adenopathy thyromegaly or neck vein distention. Cardiovascular examination reveals regular rhythm rate. S1-S2 normal. No S3 or S4. No discernible murmur noted. Lungs reveal scattered rhonchi and crackles. Breath sounds equal. Breath sounds are equal bilaterally. No distinct wheezes noted. Abdomen soft bowel sounds are heard. No masses or tenderness. Extremities are intact. No cyanosis clubbing or edema. Skin is without rash or lesion. Neurologic examination is brief but nonfocal. - Labs CBC & Chem 7: 03/17/23 05:21 03/17/23 05:21 Labs: Abnormal Lab Results - Last 24 Hours (Table) 03/16/23 03/16/23 03/16/23 Range/Units 05:17 10:31 11:34 WBC (3.8-10.6) k/uL RBC (4.30-5.90) m/uL Hgb (13.0-17.5) gm/dL Hct (39.0-53.0) % RDW (11.5-15.5) % Plt Count (150-450) k/uL ABG pO2 (83-108) mmHg ABG Total CO2 (19-24) mmol/L Sodium (137-145) mmol/L Chloride (98-107) mmol/L BUN (9-20) mg/dL Creatinine (0.66-1.25) mg/dL Glucose (74-99) mg/dL POC Glucose (mg/dL) 294 H 227 H (70-110) mg/dL Calcium (8.4-10.2) mg/dL AST (17-59) U/L Total Protein (6.3-8.2) g/dL Albumin (3.5-5.0) g/dL Crossmatch See Detail 03/16/23 03/16/23 03/16/23 Range/Units 13:25 14:14 15:08 WBC (3.8-10.6) k/uL RBC (4.30-5.90) m/uL Hgb (13.0-17.5) gm/dL Hct (39.0-53.0) % RDW (11.5-15.5) % Plt Count (150-450) k/uL ABG pO2 (83-108) mmHg ABG Total CO2 (19-24) mmol/L Sodium (137-145) mmol/L Chloride (98-107) mmol/L BUN (9-20) mg/dL Creatinine (0.66-1.25) mg/dL Glucose (74-99) mg/dL POC Glucose (mg/dL) 198 H 167 H 143 H (70-110) mg/dL Calcium (8.4-10.2) mg/dL AST (17-59) U/L Total Protein (6.3-8.2) g/dL Albumin (3.5-5.0) g/dL Crossmatch 03/16/23 03/16/23 03/16/23 Range/Units 17:04 18:17 20:55 WBC (3.8-10.6) k/uL RBC (4.30-5.90) m/uL Hgb (13.0-17.5) gm/dL Hct (39.0-53.0) % RDW (11.5-15.5) % Plt Count (150-450) k/uL ABG pO2 (83-108) mmHg ABG Total CO2 (19-24) mmol/L Sodium 146 H (137-145) mmol/L Chloride 111 H (98-107) mmol/L BUN 107 H* (9-20) mg/dL Creatinine 2.96 H (0.66-1.25) mg/dL Glucose 100 H (74-99) mg/dL POC Glucose (mg/dL) 126 H 117 H (70-110) mg/dL Calcium 8.0 L (8.4-10.2) mg/dL AST (17-59) U/L Total Protein (6.3-8.2) g/dL Albumin (3.5-5.0) g/dL Crossmatch 03/16/23 03/16/23 03/16/23 Range/Units 22:11 23:07 23:40 WBC (3.8-10.6) k/uL RBC (4.30-5.90) m/uL Hgb (13.0-17.5) gm/dL Hct (39.0-53.0) % RDW (11.5-15.5) % Plt Count (150-450) k/uL ABG pO2 (83-108) mmHg ABG Total CO2 (19-24) mmol/L Sodium (137-145) mmol/L Chloride (98-107) mmol/L BUN (9-20) mg/dL Creatinine (0.66-1.25) mg/dL Glucose (74-99) mg/dL POC Glucose (mg/dL) 154 H 207 H 219 H (70-110) mg/dL Calcium (8.4-10.2) mg/dL AST (17-59) U/L Total Protein (6.3-8.2) g/dL Albumin (3.5-5.0) g/dL Crossmatch 03/16/23 03/17/23 03/17/23 Range/Units 23:57 01:01 02:13 WBC (3.8-10.6) k/uL RBC (4.30-5.90) m/uL Hgb (13.0-17.5) gm/dL Hct (39.0-53.0) % RDW (11.5-15.5) % Plt Count (150-450) k/uL ABG pO2 (83-108) mmHg ABG Total CO2 (19-24) mmol/L Sodium (137-145) mmol/L Chloride (98-107) mmol/L BUN (9-20) mg/dL Creatinine (0.66-1.25) mg/dL Glucose (74-99) mg/dL POC Glucose (mg/dL) 217 H 205 H 178 H (70-110) mg/dL Calcium (8.4-10.2) mg/dL AST (17-59) U/L Total Protein (6.3-8.2) g/dL Albumin (3.5-5.0) g/dL Crossmatch 03/17/23 03/17/23 03/17/23 Range/Units 02:43 03:25 04:13 WBC (3.8-10.6) k/uL RBC (4.30-5.90) m/uL Hgb (13.0-17.5) gm/dL Hct (39.0-53.0) % RDW (11.5-15.5) % Plt Count (150-450) k/uL ABG pO2 69 L (83-108) mmHg ABG Total CO2 27 H (19-24) mmol/L Sodium (137-145) mmol/L Chloride (98-107) mmol/L BUN (9-20) mg/dL Creatinine (0.66-1.25) mg/dL Glucose (74-99) mg/dL POC Glucose (mg/dL) 170 H 156 H (70-110) mg/dL Calcium (8.4-10.2) mg/dL AST (17-59) U/L Total Protein (6.3-8.2) g/dL Albumin (3.5-5.0) g/dL Crossmatch 03/17/23 03/17/23 03/17/23 Range/Units 04:24 05:19 05:21 WBC 17.7 H (3.8-10.6) k/uL RBC 2.45 L (4.30-5.90) m/uL Hgb 7.5 L (13.0-17.5) gm/dL Hct 22.9 L (39.0-53.0) % RDW 17.3 H (11.5-15.5) % Plt Count 138 L (150-450) k/uL ABG pO2 (83-108) mmHg ABG Total CO2 (19-24) mmol/L Sodium (137-145) mmol/L Chloride (98-107) mmol/L BUN (9-20) mg/dL Creatinine (0.66-1.25) mg/dL Glucose (74-99) mg/dL POC Glucose (mg/dL) 144 H 137 H (70-110) mg/dL Calcium (8.4-10.2) mg/dL AST (17-59) U/L Total Protein (6.3-8.2) g/dL Albumin (3.5-5.0) g/dL Crossmatch 03/17/23 03/17/23 03/17/23 Range/Units 05:21 06:24 07:14 WBC (3.8-10.6) k/uL RBC (4.30-5.90) m/uL Hgb (13.0-17.5) gm/dL Hct (39.0-53.0) % RDW (11.5-15.5) % Plt Count (150-450) k/uL ABG pO2 (83-108) mmHg ABG Total CO2 (19-24) mmol/L Sodium (137-145) mmol/L Chloride 109 H (98-107) mmol/L BUN 111 H* (9-20) mg/dL Creatinine 3.26 H (0.66-1.25) mg/dL Glucose 120 H (74-99) mg/dL POC Glucose (mg/dL) 153 H 186 H (70-110) mg/dL Calcium 7.7 L (8.4-10.2) mg/dL AST 13 L (17-59) U/L Total Protein 4.6 L (6.3-8.2) g/dL Albumin 2.3 L (3.5-5.0) g/dL Crossmatch 03/17/23 03/17/23 Range/Units 08:17 09:11 WBC (3.8-10.6) k/uL RBC (4.30-5.90) m/uL Hgb (13.0-17.5) gm/dL Hct (39.0-53.0) % RDW (11.5-15.5) % Plt Count (150-450) k/uL ABG pO2 (83-108) mmHg ABG Total CO2 (19-24) mmol/L Sodium (137-145) mmol/L Chloride (98-107) mmol/L BUN (9-20) mg/dL Creatinine (0.66-1.25) mg/dL Glucose (74-99) mg/dL POC Glucose (mg/dL) 222 H 212 H (70-110) mg/dL Calcium (8.4-10.2) mg/dL AST (17-59) U/L Total Protein (6.3-8.2) g/dL Albumin (3.5-5.0) g/dL Crossmatch Microbiology - Last 24 Hours (Table) 03/15/23 16:00 Acid Fast Bacilli Smear - Preliminary Bronchial Washings - Random 03/15/23 16:00 Gram Stain - Preliminary Bronchial Washings - Random Bronchial Washings Culture - Preliminary Assessment and Plan Plan: Acute hypoxemic respiratory failure, secondary to possible healthcare associated pneumonia, versus acute pulmonary edema, versus acute respiratory distress syndrome. Patient has developed diffuse bilateral pulmonary infiltrates. This could be cardiogenic versus noncardiac pulmonary edema. Patient failed BiPAP therapy and the patient is currently intubated on a mechanical ventilator. The patient is post bronchoscopy and the bronchial lavage regarding the bilateral pulmonary infiltrates. The cultures are negative and the patient remains on IV Zosyn. He remains on pressure control mode of mechanical ventilation. Not ready for further weaning. Oxygen patient is still borderline on 8 of PEEP and FiO2 of 40%. LV function is preserved with a recent echocardiogram Acute on chronic kidney disease, urine output is in order of 10-20 mL an hour. Creatinine is stable at 3.6 Acute hypernatremia and his sodium level is currently at 143 Acute leukocytosis my improving and the white cell count of 17 Bilateral lower extremity edema, and cellulitis, treated and recovered Elevated troponins, rule out non-ST segment elevation myocardial infarction. Anemia of chronic disease. There is a interval drop in hemoglobin down to 6.8. The patient is chronically anemic and the patient is receiving a unit of packed RBC. Hemoglobin today is at 7.5 Stage III chronic kidney disease. Type 2 diabetes mellitus. The patient is currently on insulin drip running at 7 units an hour Benign essential hypertension. Dyslipidemia. Hypothyroidism. Benign prostatic hypertrophy. Obesity Sinus bradycardia Plan No ventilator changes for today Chest x-ray is still showing bilateral lower lobe consolidations Continue IV Zosyn Discontinue the D5 water Continue the insulin drip Hold all form of diuretics at this point in time Repeat pro-calcitonin level No need for pressors at this point in time Continue enteral feeding for nutritional support Echocardiogram was ordered for today and will completed and the findings of essentially showing a preserved LV function with severe pulmonary hypertension with a EF around 65% and the pulmonary artery pressure of around 56 mmHg, no significant valvular abnormalities Monitor the white cell count, improving Monitor renal function, stable Monitor urine output Condition is critically ill continue to follow and make further recommendations based on his progress. There is a critical care evaluation that was done in more than 30 minutes. Not ready for further weaning at this point in time. We'll continue to follow. Time with Patient: Greater than 30
[2023-03-17 10:09] LABS: Glucose,Whole Blood 218 mg/dL (70-110)
--- NOTE | 2023-03-17 10:35 | P.PN ---
Subjective Patient is seen in follow-up for acute kidney injury on chronic kidney disease. Urine output 20-30 mL an hour. Intubated. D5W stopped this morning. Sodium level 143. Hemoglobin improved post blood transfusion. Intubated. Vital signs are stable. General: Resting in bed. HEENT: Intubated. LUNGS: Scattered rhonchi. HEART: Rate and Rhythm are regular. ABDOMEN: No distention. EXTREMITITES: Trace edema. Objective - Vital Signs Vital signs: Vital Signs Temp 99.3 F 03/17/23 08:00 Pulse 68 03/17/23 09:01 Resp 27 H 03/17/23 09:00 BP 130/57 03/17/23 09:00 Pulse Ox 90 L 03/17/23 09:00 FiO2 40 03/17/23 08:45 Intake & Output 03/16/23 03/17/23 03/17/23 18:59 06:59 18:59 Intake Total 2491.544 1960.377 118.987 Output Total 275 360 35 Balance 2216.544 1600.377 83.987 Weight 116.9 kg Intake: IV 1175 1110 85 Desmopressin Acetate 32 50 mcg In Sodium Chloride 0. 9% 50 ml @ 200 mls/hr IVPB ONCE ONE Rx#: [id number] Dextrose 5% in Water 1, 1025 900 75 000 ml @ 75 mls/hr IV . [id number] [facility] Rx#:[id number] NS TKO 110 10 Piperacillin-Tazobactam 3 100 100 .375 gm In Sodium Chloride 0.9% 100 ml @ 25 mls/hr IVPB Q8HR [facility] Rx# :[id number] Intake, IV Titration 560.544 484.377 10.987 Amount Insulin Regular 100 unit 360.544 84.377 10.987 In Sodium Chloride 0.9% 100 ml @ Titrate IV .Q0M [facility] Rx#:[id number] propofoL 1,000 mg In 200 400 Empty Bag 1 bag @ 15 MCG/ KG/MIN 9.945 mls/hr IV . Q10H4M [facility] Rx#:[id number] Tube Feeding 276 276 23 Blood Product 310 Rc As-1 Unit 310 [id number] Other 170 90 Rc As-1 Unit 50 [id number] Output: Urine 275 360 35 Other: Voiding Method Indwelling Catheter Indwelling Catheter ABP, PAP, CO, CI - Last Documented Arterial Blood Pressure 161/53 - Labs CBC & Chem 7: 03/17/23 05:21 03/17/23 05:21 Labs: Abnormal Lab Results - Last 24 Hours (Table) 03/16/23 03/16/23 03/16/23 Range/Units 10:31 11:34 13:25 WBC (3.8-10.6) k/uL RBC (4.30-5.90) m/uL Hgb (13.0-17.5) gm/dL Hct (39.0-53.0) % RDW (11.5-15.5) % Plt Count (150-450) k/uL ABG pO2 (83-108) mmHg ABG Total CO2 (19-24) mmol/L Sodium (137-145) mmol/L Chloride (98-107) mmol/L BUN (9-20) mg/dL Creatinine (0.66-1.25) mg/dL Glucose (74-99) mg/dL POC Glucose (mg/dL) 294 H 227 H 198 H (70-110) mg/dL Calcium (8.4-10.2) mg/dL AST (17-59) U/L Total Protein (6.3-8.2) g/dL Albumin (3.5-5.0) g/dL 03/16/23 03/16/23 03/16/23 Range/Units 14:14 15:08 17:04 WBC (3.8-10.6) k/uL RBC (4.30-5.90) m/uL Hgb (13.0-17.5) gm/dL Hct (39.0-53.0) % RDW (11.5-15.5) % Plt Count (150-450) k/uL ABG pO2 (83-108) mmHg ABG Total CO2 (19-24) mmol/L Sodium (137-145) mmol/L Chloride (98-107) mmol/L BUN (9-20) mg/dL Creatinine (0.66-1.25) mg/dL Glucose (74-99) mg/dL POC Glucose (mg/dL) 167 H 143 H 126 H (70-110) mg/dL Calcium (8.4-10.2) mg/dL AST (17-59) U/L Total Protein (6.3-8.2) g/dL Albumin (3.5-5.0) g/dL 03/16/23 03/16/23 03/16/23 Range/Units 18:17 20:55 22:11 WBC (3.8-10.6) k/uL RBC (4.30-5.90) m/uL Hgb (13.0-17.5) gm/dL Hct (39.0-53.0) % RDW (11.5-15.5) % Plt Count (150-450) k/uL ABG pO2 (83-108) mmHg ABG Total CO2 (19-24) mmol/L Sodium 146 H (137-145) mmol/L Chloride 111 H (98-107) mmol/L BUN 107 H* (9-20) mg/dL Creatinine 2.96 H (0.66-1.25) mg/dL Glucose 100 H (74-99) mg/dL POC Glucose (mg/dL) 117 H 154 H (70-110) mg/dL Calcium 8.0 L (8.4-10.2) mg/dL AST (17-59) U/L Total Protein (6.3-8.2) g/dL Albumin (3.5-5.0) g/dL 03/16/23 03/16/23 03/16/23 Range/Units 23:07 23:40 23:57 WBC (3.8-10.6) k/uL RBC (4.30-5.90) m/uL Hgb (13.0-17.5) gm/dL Hct (39.0-53.0) % RDW (11.5-15.5) % Plt Count (150-450) k/uL ABG pO2 (83-108) mmHg ABG Total CO2 (19-24) mmol/L Sodium (137-145) mmol/L Chloride (98-107) mmol/L BUN (9-20) mg/dL Creatinine (0.66-1.25) mg/dL Glucose (74-99) mg/dL POC Glucose (mg/dL) 207 H 219 H 217 H (70-110) mg/dL Calcium (8.4-10.2) mg/dL AST (17-59) U/L Total Protein (6.3-8.2) g/dL Albumin (3.5-5.0) g/dL 03/17/23 03/17/23 03/17/23 Range/Units 01:01 02:13 02:43 WBC (3.8-10.6) k/uL RBC (4.30-5.90) m/uL Hgb (13.0-17.5) gm/dL Hct (39.0-53.0) % RDW (11.5-15.5) % Plt Count (150-450) k/uL ABG pO2 (83-108) mmHg ABG Total CO2 (19-24) mmol/L Sodium (137-145) mmol/L Chloride (98-107) mmol/L BUN (9-20) mg/dL Creatinine (0.66-1.25) mg/dL Glucose (74-99) mg/dL POC Glucose (mg/dL) 205 H 178 H 170 H (70-110) mg/dL Calcium (8.4-10.2) mg/dL AST (17-59) U/L Total Protein (6.3-8.2) g/dL Albumin (3.5-5.0) g/dL 03/17/23 03/17/23 03/17/23 Range/Units 03:25 04:13 04:24 WBC (3.8-10.6) k/uL RBC (4.30-5.90) m/uL Hgb (13.0-17.5) gm/dL Hct (39.0-53.0) % RDW (11.5-15.5) % Plt Count (150-450) k/uL ABG pO2 69 L (83-108) mmHg ABG Total CO2 27 H (19-24) mmol/L Sodium (137-145) mmol/L Chloride (98-107) mmol/L BUN (9-20) mg/dL Creatinine (0.66-1.25) mg/dL Glucose (74-99) mg/dL POC Glucose (mg/dL) 156 H 144 H (70-110) mg/dL Calcium (8.4-10.2) mg/dL AST (17-59) U/L Total Protein (6.3-8.2) g/dL Albumin (3.5-5.0) g/dL 03/17/23 03/17/23 03/17/23 Range/Units 05:19 05:21 05:21 WBC 17.7 H (3.8-10.6) k/uL RBC 2.45 L (4.30-5.90) m/uL Hgb 7.5 L (13.0-17.5) gm/dL Hct 22.9 L (39.0-53.0) % RDW 17.3 H (11.5-15.5) % Plt Count 138 L (150-450) k/uL ABG pO2 (83-108) mmHg ABG Total CO2 (19-24) mmol/L Sodium (137-145) mmol/L Chloride 109 H (98-107) mmol/L BUN 111 H* (9-20) mg/dL Creatinine 3.26 H (0.66-1.25) mg/dL Glucose 120 H (74-99) mg/dL POC Glucose (mg/dL) 137 H (70-110) mg/dL Calcium 7.7 L (8.4-10.2) mg/dL AST 13 L (17-59) U/L Total Protein 4.6 L (6.3-8.2) g/dL Albumin 2.3 L (3.5-5.0) g/dL 03/17/23 03/17/23 03/17/23 Range/Units 06:24 07:14 08:17 WBC (3.8-10.6) k/uL RBC (4.30-5.90) m/uL Hgb (13.0-17.5) gm/dL Hct (39.0-53.0) % RDW (11.5-15.5) % Plt Count (150-450) k/uL ABG pO2 (83-108) mmHg ABG Total CO2 (19-24) mmol/L Sodium (137-145) mmol/L Chloride (98-107) mmol/L BUN (9-20) mg/dL Creatinine (0.66-1.25) mg/dL Glucose (74-99) mg/dL POC Glucose (mg/dL) 153 H 186 H 222 H (70-110) mg/dL Calcium (8.4-10.2) mg/dL AST (17-59) U/L Total Protein (6.3-8.2) g/dL Albumin (3.5-5.0) g/dL 03/17/23 03/17/23 Range/Units 09:11 10:07 WBC (3.8-10.6) k/uL RBC (4.30-5.90) m/uL Hgb (13.0-17.5) gm/dL Hct (39.0-53.0) % RDW (11.5-15.5) % Plt Count (150-450) k/uL ABG pO2 (83-108) mmHg ABG Total CO2 (19-24) mmol/L Sodium (137-145) mmol/L Chloride (98-107) mmol/L BUN (9-20) mg/dL Creatinine (0.66-1.25) mg/dL Glucose (74-99) mg/dL POC Glucose (mg/dL) 212 H 218 H (70-110) mg/dL Calcium (8.4-10.2) mg/dL AST (17-59) U/L Total Protein (6.3-8.2) g/dL Albumin (3.5-5.0) g/dL Microbiology - Last 24 Hours (Table) 03/15/23 16:00 Acid Fast Bacilli Smear - Preliminary Bronchial Washings - Random 03/15/23 16:00 Gram Stain - Preliminary Bronchial Washings - Random Bronchial Washings Culture - Preliminary Assessment and Plan Plan: Assessment: 1. Acute kidney injury secondary to ATN secondary to hemodynamic instability and infection. Creatinine 3.26 today. Urine output 20-30 mL an hour. No hydronephrosis noted on kidney ultrasound. Right kidney wasn't properly visualized. Left kidney is atrophic. 2. Chronic kidney disease stage IV with baseline creatinine 2-2.5. 3. Hypernatremia from free water diuresis and lack of oral water intake. 4. Hypokalemia from diuresis. Replaced. Better. 5. Acute hypoxic respiratory failure secondary to pneumonia and volume overload. Status post bronchoscopy 03/15/2023. 6. Pneumonia on antibiotics. 7. Acute blood loss anemia. Status post blood transfusion this admission. Also received IV DDAVP. Heparin drip stopped. Plan: Change IV fluids to half-normal saline at 75 mL an hour. Maintain tube feeds. Repeat IV Lasix if urine output drops to less than 10-15 mL an hour for more than 3 hours. Add Aranesp. Avoid nephrotoxins. Wean FiO2. Continue to monitor renal function and urine output. Blood glucose control. Continue to assess daily for need for renal replacement therapy.
[2023-03-17] MEDS: SODIUM CHLORIDE 0.45% 1,000 ML IV SCH ×2 (10:45→23:32)
[2023-03-17 11:07] LABS: Glucose,Whole Blood 196 mg/dL (70-110)
[2023-03-17 12:08] LABS: Glucose,Whole Blood 165 mg/dL (70-110)
[2023-03-17] MEDS: bisacodyL 10 MG SUPP RECTAL PRN (12:10)
[2023-03-17] MEDS: DARBEPOETIN ALFA 40 MCG/0.4 ML SYRINGE SQ SCH (12:37)
[2023-03-17 13:02] LABS: Glucose,Whole Blood 143 mg/dL (70-110)
[2023-03-17 14:14] LABS: Glucose,Whole Blood 141 mg/dL (70-110)
[2023-03-17 15:08] LABS: Glucose,Whole Blood 133 mg/dL (70-110)
[2023-03-17 16:03] LABS: Glucose,Whole Blood 129 mg/dL (70-110)
--- NOTE | 2023-03-17 16:51 | P.PN ---
Subjective Progress Note Date: 03/17/23 Principal diagnosis: Sepsis/pneumonia Patient is a 77-year-old male with a past medical his significant for diabetes mellitus hypertension hyperlipidemia prostate disorder presenting to the hospital on 03/07/2023 for evaluation of increasing shortness of breath weakness and mental status changes, subsequently did have worsening of his respiratory status requiring transfer the ICU ended up getting intubated, the patient is status post bronchoscopy completed on 03/15/2023 On today's evaluation that is03/17/2023, the patient continues to be afebrile, the patient is hemodynamically stable and the patient FiO2 is stable at 40%, no significant purulent secretions through the ET or diarrhea reported by the nursing staff Patient white cou slightly up to 17.7 today, creatinine is 3.26 Objective - Vital Signs Vital signs: Vital Signs Temp 99.3 F 03/17/23 08:00 Pulse 65 03/17/23 11:00 Resp 29 H 03/17/23 11:00 BP 131/54 03/17/23 11:00 Pulse Ox 91 L 03/17/23 11:00 FiO2 40 03/17/23 08:45 Intake & Output 03/16/23 03/17/23 03/17/23 18:59 06:59 18:59 Intake Total 2491.544 1960.377 612.979 Output Total 275 360 150 Balance 2216.544 1600.377 462.979 Weight 116.9 kg Intake: IV 1175 1110 415 Desmopressin Acetate 32 50 mcg In Sodium Chloride 0. 9% 50 ml @ 200 mls/hr IVPB ONCE ONE Rx#: [id number] Dextrose 5% in Water 1, 1025 900 225 000 ml @ 75 mls/hr IV . [id number] [facility] Rx#:[id number] NS TKO 110 90 Piperacillin-Tazobactam 3 100 100 100 .375 gm In Sodium Chloride 0.9% 100 ml @ 25 mls/hr IVPB Q8HR [facility] Rx# :[id number] Intake, IV Titration 560.544 484.377 174.979 Amount Insulin Regular 100 unit 360.544 84.377 24.979 In Sodium Chloride 0.9% 100 ml @ Titrate IV .Q0M [facility] Rx#:[id number] Sodium Chloride 0.45% 1, 150 000 ml @ 75 mls/hr IV . [id number] [facility] Rx#:[id number] propofoL 1,000 mg In 200 400 Empty Bag 1 bag @ 15 MCG/ KG/MIN 9.945 mls/hr IV . Q10H4M [facility] Rx#:[id number] Tube Feeding 276 276 23 Blood Product 310 Rc As-1 Unit 310 [id number] Other 170 90 Rc As-1 Unit 50 [id number] Output: Urine 275 360 150 Other: Voiding Method Indwelling Catheter Indwelling Catheter ABP, PAP, CO, CI - Last Documented Arterial Blood Pressure 157/49 - Exam GENERAL DESCRIPTION: An elderly male intubated on the vent in no distress RESPIRATORY SYSTEM: Unlabored breathing , decreased breath sounds at bases HEART: S1 S2 regular rate and rhythm , ABDOMEN: Soft , no tenderness EXTREMITIES: No edema feet - Labs CBC & Chem 7: 03/17/23 05:21 03/17/23 05:21 Labs: Abnormal Lab Results - Last 24 Hours (Table) 03/16/23 03/16/23 03/16/23 Range/Units 13:25 14:14 15:08 WBC (3.8-10.6) k/uL RBC (4.30-5.90) m/uL Hgb (13.0-17.5) gm/dL Hct (39.0-53.0) % RDW (11.5-15.5) % Plt Count (150-450) k/uL ABG pO2 (83-108) mmHg ABG Total CO2 (19-24) mmol/L Sodium (137-145) mmol/L Chloride (98-107) mmol/L BUN (9-20) mg/dL Creatinine (0.66-1.25) mg/dL Glucose (74-99) mg/dL POC Glucose (mg/dL) 198 H 167 H 143 H (70-110) mg/dL Calcium (8.4-10.2) mg/dL Phosphorus (2.5-4.5) mg/dL AST (17-59) U/L Total Protein (6.3-8.2) g/dL Albumin (3.5-5.0) g/dL 03/16/23 03/16/23 03/16/23 Range/Units 17:04 18:17 20:55 WBC (3.8-10.6) k/uL RBC (4.30-5.90) m/uL Hgb (13.0-17.5) gm/dL Hct (39.0-53.0) % RDW (11.5-15.5) % Plt Count (150-450) k/uL ABG pO2 (83-108) mmHg ABG Total CO2 (19-24) mmol/L Sodium 146 H (137-145) mmol/L Chloride 111 H (98-107) mmol/L BUN 107 H* (9-20) mg/dL Creatinine 2.96 H (0.66-1.25) mg/dL Glucose 100 H (74-99) mg/dL POC Glucose (mg/dL) 126 H 117 H (70-110) mg/dL Calcium 8.0 L (8.4-10.2) mg/dL Phosphorus (2.5-4.5) mg/dL AST (17-59) U/L Total Protein (6.3-8.2) g/dL Albumin (3.5-5.0) g/dL 03/16/23 03/16/23 03/16/23 Range/Units 22:11 23:07 23:40 WBC (3.8-10.6) k/uL RBC (4.30-5.90) m/uL Hgb (13.0-17.5) gm/dL Hct (39.0-53.0) % RDW (11.5-15.5) % Plt Count (150-450) k/uL ABG pO2 (83-108) mmHg ABG Total CO2 (19-24) mmol/L Sodium (137-145) mmol/L Chloride (98-107) mmol/L BUN (9-20) mg/dL Creatinine (0.66-1.25) mg/dL Glucose (74-99) mg/dL POC Glucose (mg/dL) 154 H 207 H 219 H (70-110) mg/dL Calcium (8.4-10.2) mg/dL Phosphorus (2.5-4.5) mg/dL AST (17-59) U/L Total Protein (6.3-8.2) g/dL Albumin (3.5-5.0) g/dL 03/16/23 03/17/23 03/17/23 Range/Units 23:57 01:01 02:13 WBC (3.8-10.6) k/uL RBC (4.30-5.90) m/uL Hgb (13.0-17.5) gm/dL Hct (39.0-53.0) % RDW (11.5-15.5) % Plt Count (150-450) k/uL ABG pO2 (83-108) mmHg ABG Total CO2 (19-24) mmol/L Sodium (137-145) mmol/L Chloride (98-107) mmol/L BUN (9-20) mg/dL Creatinine (0.66-1.25) mg/dL Glucose (74-99) mg/dL POC Glucose (mg/dL) 217 H 205 H 178 H (70-110) mg/dL Calcium (8.4-10.2) mg/dL Phosphorus (2.5-4.5) mg/dL AST (17-59) U/L Total Protein (6.3-8.2) g/dL Albumin (3.5-5.0) g/dL 03/17/23 03/17/23 03/17/23 Range/Units 02:43 03:25 04:13 WBC (3.8-10.6) k/uL RBC (4.30-5.90) m/uL Hgb (13.0-17.5) gm/dL Hct (39.0-53.0) % RDW (11.5-15.5) % Plt Count (150-450) k/uL ABG pO2 69 L (83-108) mmHg ABG Total CO2 27 H (19-24) mmol/L Sodium (137-145) mmol/L Chloride (98-107) mmol/L BUN (9-20) mg/dL Creatinine (0.66-1.25) mg/dL Glucose (74-99) mg/dL POC Glucose (mg/dL) 170 H 156 H (70-110) mg/dL Calcium (8.4-10.2) mg/dL Phosphorus (2.5-4.5) mg/dL AST (17-59) U/L Total Protein (6.3-8.2) g/dL Albumin (3.5-5.0) g/dL 1003/17/23 03/17/23 Range/Units 04:24 05:19 05:21 WBC 17.7 H (3.8-10.6) k/uL RBC 2.45 L (4.30-5.90) m/uL Hgb 7.5 L (13.0-17.5) gm/dL Hct 22.9 L (39.0-53.0) % RDW 17.3 H (11.5-15.5) % Plt Count 138 L (150-450) k/uL ABG pO2 (83-108) mmHg ABG Total CO2 (19-24) mmol/L Sodium (137-145) mmol/L Chloride (98-107) mmol/L BUN (9-20) mg/dL Creatinine (0.66-1.25) mg/dL Glucose (74-99) mg/dL POC Glucose (mg/dL) 144 H 137 H (70-110) mg/dL Calcium (8.4-10.2) mg/dL Phosphorus (2.5-4.5) mg/dL AST (17-59) U/L Total Protein (6.3-8.2) g/dL Albumin (3.5-5.0) g/dL 03/17/23 03/17/23 03/17/23 Range/Units 05:21 06:24 07:14 WBC (3.8-10.6) k/uL RBC (4.30-5.90) m/uL Hgb (13.0-17.5) gm/dL Hct (39.0-53.0) % RDW (11.5-15.5) % Plt Count (150-450) k/uL ABG pO2 (83-108) mmHg ABG Total CO2 (19-24) mmol/L Sodium (137-145) mmol/L Chloride 109 H (98-107) mmol/L BUN 111 H* (9-20) mg/dL Creatinine 3.26 H (0.66-1.25) mg/dL Glucose 120 H (74-99) mg/dL POC Glucose (mg/dL) 153 H 186 H (70-110) mg/dL Calcium 7.7 L (8.4-10.2) mg/dL Phosphorus (2.5-4.5) mg/dL AST 13 L (17-59) U/L Total Protein 4.6 L (6.3-8.2) g/dL Albumin 2.3 L (3.5-5.0) g/dL 03/17/23 03/17/23 03/17/23 Range/Units 08:17 09:11 10:00 WBC (3.8-10.6) k/uL RBC (4.30-5.90) m/uL Hgb (13.0-17.5) gm/dL Hct (39.0-53.0) % RDW (11.5-15.5) % Plt Count (150-450) k/uL ABG pO2 (83-108) mmHg ABG Total CO2 (19-24) mmol/L Sodium (137-145) mmol/L Chloride (98-107) mmol/L BUN (9-20) mg/dL Creatinine (0.66-1.25) mg/dL Glucose (74-99) mg/dL POC Glucose (mg/dL) 222 H 212 H (70-110) mg/dL Calcium (8.4-10.2) mg/dL Phosphorus 4.8 H (2.5-4.5) mg/dL AST (17-59) U/L Total Protein (6.3-8.2) g/dL Albumin (3.5-5.0) g/dL 03/17/23 03/17/23 Range/Units 10:07 11:06 WBC (3.8-10.6) k/uL RBC (4.30-5.90) m/uL Hgb (13.0-17.5) gm/dL Hct (39.0-53.0) % RDW (11.5-15.5) % Plt Count (150-450) k/uL ABG pO2 (83-108) mmHg ABG Total CO2 (19-24) mmol/L Sodium (137-145) mmol/L Chloride (98-107) mmol/L BUN (9-20) mg/dL Creatinine (0.66-1.25) mg/dL Glucose (74-99) mg/dL POC Glucose (mg/dL) 218 H 196 H (70-110) mg/dL Calcium (8.4-10.2) mg/dL Phosphorus (2.5-4.5) mg/dL AST (17-59) U/L Total Protein (6.3-8.2) g/dL Albumin (3.5-5.0) g/dL Microbiology - Last 24 Hours (Table) 03/15/23 16:00 Acid Fast Bacilli Smear - Preliminary Bronchial Washings - Random 03/15/23 16:00 Gram Stain - Preliminary Bronchial Washings - Random Bronchial Washings Culture - Preliminary Assessment and Plan (1) Pneumonia Current Visit: No Status: Acute Code(s): J18.9 - PNEUMONIA, UNSPECIFIED ORGANISM SNOMED Code(s): 725340875 Plan: 1patient with acute respiratory failure which is multifactorial in this patient has been in the hospital for almost 8 to 9 days with initial presentation of se psis possible pneumonia however no cultures were done during this hospital stay patient did not get intubated because of worsening respiratory status and culture has been obtained and possible plan for bronchoscopy on 03/15/2023, we will need to cover for the gram-negative to be the likely pathogen 2-cultures are currently pending, patient did have a procalcitonin 2.84 3-patient is afebrile, white count is slightly up will be monitored closed, patient to continue with Zosyn 3.375 g every 8 hours while waiting for the culture to finalize and adjust antibiotics if needed Dictation was produced using [employer] dictation software. please excuse any grammatical, word or spelling errors. Time with Patient: Less than 30
[2023-03-17 16:55] LABS: Glucose,Whole Blood 166 mg/dL (70-110)
[2023-03-17] MEDS: HYDROmorphone 1 MG/ML 1 ML SYRINGE IVP PRN ×2 (17:51→22:21)
[2023-03-17 17:56] LABS: Glucose,Whole Blood 211 mg/dL (70-110)
[2023-03-17 18:58] LABS: Glucose,Whole Blood 223 mg/dL (70-110)
[2023-03-17 20:16] LABS: Glucose,Whole Blood 270 mg/dL (70-110)
[2023-03-17 21:19] LABS: Glucose,Whole Blood 271 mg/dL (70-110)
[2023-03-17 21:53] LABS: ABG Base Excess -3.6 mmol/L; ABG HCO3 22 mmol/L (21-25); ABG Oxygen Saturation 91.6 % (94-97); ABG PCO2 36 mmHg (35-45); ABG PH 7.39 (7.35-7.45); ABG TCO2 23 mmol/L (19-24)
[2023-03-17 21:56] LABS: ABG PO2 58 mmHg (83-108)
[2023-03-17 22:11] LABS: Glucose,Whole Blood 268 mg/dL (70-110)
[2023-03-17 23:23] LABS: Glucose,Whole Blood 249 mg/dL (70-110)
[2023-03-18 00:14] LABS: Glucose,Whole Blood 236 mg/dL (70-110)
[2023-03-18] MEDS: PIPERACILLIN-TAZOBACTAM 3.375 GM in SODIUM CHLORIDE 0.9% 100 ML IVPB SCH ×3 (00:37→20:22)
[2023-03-18 01:10] LABS: Glucose,Whole Blood 221 mg/dL (70-110)
[2023-03-18 01:56] LABS: Glucose,Whole Blood 193 mg/dL (70-110)
[2023-03-18 03:00] LABS: Glucose,Whole Blood 179 mg/dL (70-110)
[2023-03-18 04:03] LABS: Glucose,Whole Blood 170 mg/dL (70-110)
[2023-03-18] MEDS: IPRATROPIUM-ALBUTEROL 3 ML NEB INHALATION SCH ×6 (04:33→23:13)
[2023-03-18 05:13] LABS: Glucose,Whole Blood 150 mg/dL (70-110)
[2023-03-18 06:04] LABS: ABG HCO3 22 mmol/L (21-25); ABG Oxygen Saturation 98.2 % (94-97); ABG PCO2 41 mmHg (35-45); ABG PH 7.34 (7.35-7.45); ABG PO2 112 mmHg (83-108); ABG TCO2 23 mmol/L (19-24)
[2023-03-18 06:04] LABS: ALT 13 U/L (4-49); AST 15 U/L (17-59); African American GFR (CKD) 19 (>60 ml/min/1.73 sqM); Albumin 2.2 g/dL (3.5-5.0); Alkaline Phosphatase 106 U/L (38-126); Anion Gap 12 mmol/L; Calcium 7.2 mg/dL (8.4-10.2); Carbon Dioxide 20 mmol/L (22-30); Chloride 107 mmol/L (98-107); Glucose 129 mg/dL (74-99); Non-African American GFR(CKD) 16 (>60 ml/min/1.73 sqM); Sodium 139 mmol/L (137-145); Total Bilirubin 0.4 mg/dL (0.2-1.3); Total Protein 4.5 g/dL (6.3-8.2)
[2023-03-18 06:08] LABS: Anisocytosis Slight; Basophils # (A) 0.1 k/uL (0-0.2); Basophils % (A) 0 %; Eosinophils # (A) 0.3 k/uL (0-0.7); Eosinophils % (A) 2 %; HCT 21.3 % (39.0-53.0); HGB 7.5 gm/dL (13.0-17.5); Hypochromasia Moderate; Lymphocytes # (A) 0.6 k/uL (1.0-4.8); Lymphocytes % (A) 4 %; MCH 32.9 pg (25.0-35.0); MCHC 35.3 g/dL (31.0-37.0); Mean Platelet Volume 15.3; Monocytes # (A) 0.2 k/uL (0-1.0); Monocytes % (A) 1 %; Neutrophils # (A) 15.6 k/uL (1.3-7.7); Neutrophils % (A) 93 %; Platelet Count 112 k/uL (150-450); RBC 2.29 m/uL (4.30-5.90); RDW 17.2 % (11.5-15.5); WBC 16.8 k/uL (3.8-10.6)
[2023-03-18 06:16] LABS: Glucose,Whole Blood 141 mg/dL (70-110)
[2023-03-18 06:16] LABS: Blood Urea Nitrogen 119 mg/dL (9-20)
[2023-03-18] MEDS ORDERED: SODIUM BICARB 8.4% 50 ML SYR (1 MEQ/ML) IV STA (06:48)
[2023-03-18 06:51] LABS: Anisocytosis (M) Present; Hypochromasia (M) Present; Polychromasia Present
--- NOTE | 2023-03-18 07:09 | P.PN ---
Subjective Progress Note Date: 03/18/23 Principal diagnosis: Paroxysmal atrial fibrillation This is a 77-year-old gentleman with coronary artery disease and congestive heart failure as well as chronic kidney disease and multiple comorbid conditions was admitted to the hospital with change in mental status and he was diagnosed with pneumonia. We consulted to see the patient because of bradycardia and also because of atrial fibrillation. Last night the patient went into respiratory failure and he was intubated. 03/15/2023 The patient was seen and evaluated this morning. He is currently intubated and he is on mechanical ventilation. Hemodynamically he is a stable as a matter of fact he is hypertensive. He is bradycardic with heart rate in the 40s and he is in sinus bradycardia. At the same time work from this morning showed hypokalemia and he continues to be in renal failure with creatinine of 2.8. He is on heparin IV for oral anticoagulation with a chest x-ray showed bilateral infiltrate definitely concerning for pneumonia. March 162022 The patient was seen and evaluated this morning. He continues to be intubated on mechanical ventilation. Hemodynamically he is a stable beside bradycardia with heart rate in the 50s. His hemoglobin drop to below 7 and currently is in process of receiving blood. For that reason heparin was stopped. He is on Lasix per nephrology service. Creatinine is 3 this morning. Examination is remarkable for regular rhythm with diminished breathing sounds b ilaterally and bilateral lower extremity 03/17/2023 The patient was seen and evaluated this morning. He continues to be intubated and on mechanical ventilation. Hemodynamically he is stable and currently he is not on any vasopressors. As a matter of fact the bradycardia has improved. He is bradycardic only intermittently. He is not on any AV ayan blockers at this point. Hemoglobin has been stable at 7.1 this morning. He receives 1 unit of packed RBC yesterday. He is not bleeding. He is not on any anticoagulation at this point which I would agree on to rule out any gastrointestinal bleeding etiology. The kidney function is worse today. He was on Lasix and that has a systolic. Examination is remarkable for diminished breathing sounds bilaterally and mild bilateral lower extremity edema March 182022 The patient was seen and evaluated this morning. He continues to be sedated and intubated on mechanical ventilation. Hemodynamically he continues to be stable and not on any vasopressors. He has been maintaining normal sinus mechanism was sinus bradycardia. Currently he is not on any beta zurdo agents. Hemoglobin this morning is 7.5. Currently he is not on any oral anticoagulation. No issues with the bleeding. We would continue holding any anticoagulation at this point the hemoglobin is more stable and to rule out any gastrointestinal bleeding related issues. Assessment Change in mental status Pneumonia Paroxysmal atrial fibrillation. Currently the patient is in sinus rhythm Sinus bradycardia Severe electrolytes abnormalities Acute on chronic renal failure Multiple comorbid conditions Anemia Plan Continue the current medical regimen Avoid any AV ayan zurdo agents at this point Avoid oral anticoagulation to rule out gastrointestinal bleeding etiology Follow-up with the patient Objective - Vital Signs Vital signs: Vital Signs Temp 98.5 F 03/18/23 04:00 Pulse 65 03/18/23 06:00 Resp 26 H 03/18/23 06:00 BP 137/55 03/18/23 06:00 Pulse Ox 98 03/18/23 06:00 FiO2 50 03/18/23 06:00 Intake & Output 03/17/23 03/18/23 03/18/23 18:59 06:59 18:59 Intake Total 2085.280 1717.372 Output Total 515 630 Balance 4442.099 2746.372 Weight 116.9 kg 114.5 kg Intake: IV 655 970 Dextrose 5% in Water 1, 225 000 ml @ 75 mls/hr IV . [id number] [facility] Rx#:[id number] NS TKO 230 120 Piperacillin-Tazobactam 3 200 100 .375 gm In Sodium Chloride 0.9% 100 ml @ 25 mls/hr IVPB Q8HR [facility] Rx# :[id number] Sodium Chloride 0.45% 1, 750 000 ml @ 75 mls/hr IV . [id number] [facility] Rx#:[id number] Intake, IV Titration 967.280 404.372 Amount Insulin Regular 100 unit 82.195 26.909 In Sodium Chloride 0.9% 100 ml @ Titrate IV .Q0M [facility] Rx#:[id number] Sodium Chloride 0.45% 1, 600 000 ml @ 75 mls/hr IV . [id number] [facility] Rx#:[id number] propofoL 1,000 mg In 285.085 377.463 Empty Bag 1 bag @ 15 MCG/ KG/MIN 9.945 mls/hr IV . Q10H4M [facility] Rx#:[id number] Tube Feeding 253 253 Other 210 90 Output: Urine 515 630 Other: Voiding Method Indwelling Catheter Indwelling Catheter ABP, PAP, CO, CI - Last Documented Arterial Blood Pressure 152/47 - Labs CBC & Chem 7: 03/18/23 05:18 03/18/23 05:18 Labs: Abnormal Lab Results - Last 24 Hours (Table) 03/16/23 03/17/23 03/17/23 Range/Units 05:17 07:14 08:17 WBC (3.8-10.6) k/uL RBC (4.30-5.90) m/uL Hgb (13.0-17.5) gm/dL Hct (39.0-53.0) % RDW (11.5-15.5) % Plt Count (150-450) k/uL Neutrophils # (1.3-7.7) k/uL Lymphocytes # (1.0-4.8) k/uL ABG pH (7.35-7.45) ABG pO2 (83-108) mmHg ABG O2 Saturation (94-97) % Carbon Dioxide (22-30) mmol/L BUN (9-20) mg/dL Creatinine (0.66-1.25) mg/dL Glucose (74-99) mg/dL POC Glucose (mg/dL) 186 H 222 H (70-110) mg/dL Calcium (8.4-10.2) mg/dL Phosphorus (2.5-4.5) mg/dL AST (17-59) U/L Total Protein (6.3-8.2) g/dL Albumin (3.5-5.0) g/dL Procalcitonin (0.02-0.09) ng/mL Crossmatch See Detail 03/17/23 03/17/23 03/17/23 Range/Units 09:11 10:00 10:00 WBC (3.8-10.6) k/uL RBC (4.30-5.90) m/uL Hgb (13.0-17.5) gm/dL Hct (39.0-53.0) % RDW (11.5-15.5) % Plt Count (150-450) k/uL Neutrophils # (1.3-7.7) k/uL Lymphocytes # (1.0-4.8) k/uL ABG pH (7.35-7.45) ABG pO2 (83-108) mmHg ABG O2 Saturation (94-97) % Carbon Dioxide (22-30) mmol/L BUN (9-20) mg/dL Creatinine (0.66-1.25) mg/dL Glucose (74-99) mg/dL POC Glucose (mg/dL) 212 H (70-110) mg/dL Calcium (8.4-10.2) mg/dL Phosphorus 4.8 H (2.5-4.5) mg/dL AST (17-59) U/L Total Protein (6.3-8.2) g/dL Albumin (3.5-5.0) g/dL Procalcitonin 1.05 H (0.02-0.09) ng/mL Crossmatch 03/17/23 03/17/23 03/17/23 Range/Units 10:07 11:06 12:06 WBC (3.8-10.6) k/uL RBC (4.30-5.90) m/uL Hgb (13.0-17.5) gm/dL Hct (39.0-53.0) % RDW (11.5-15.5) % Plt Count (150-450) k/uL Neutrophils # (1.3-7.7) k/uL Lymphocytes # (1.0-4.8) k/uL ABG pH (7.35-7.45) ABG pO2 (83-108) mmHg ABG O2 Saturation (94-97) % Carbon Dioxide (22-30) mmol/L BUN (9-20) mg/dL Creatinine (0.66-1.25) mg/dL Glucose (74-99) mg/dL POC Glucose (mg/dL) 218 H 196 H 165 H (70-110) mg/dL Calcium (8.4-10.2) mg/dL Phosphorus (2.5-4.5) mg/dL AST (17-59) U/L Total Protein (6.3-8.2) g/dL Albumin (3.5-5.0) g/dL Procalcitonin (0.02-0.09) ng/mL Crossmatch 03/17/23 03/17/23 03/17/23 Range/Units 13:00 14:12 15:07 WBC (3.8-10.6) k/uL RBC (4.30-5.90) m/uL Hgb (13.0-17.5) gm/dL Hct (39.0-53.0) % RDW (11.5-15.5) % Plt Count (150-450) k/uL Neutrophils # (1.3-7.7) k/uL Lymphocytes # (1.0-4.8) k/uL ABG pH (7.35-7.45) ABG pO2 (83-108) mmHg ABG O2 Saturation (94-97) % Carbon Dioxide (22-30) mmol/L BUN (9-20) mg/dL Creatinine (0.66-1.25) mg/dL Glucose (74-99) mg/dL POC Glucose (mg/dL) 143 H 141 H 133 H (70-110) mg/dL Calcium (8.4-10.2) mg/dL Phosphorus (2.5-4.5) mg/dL AST (17-59) U/L Total Protein (6.3-8.2) g/dL Albumin (3.5-5.0) g/dL Procalcitonin (0.02-0.09) ng/mL Crossmatch 03/17/23 03/17/23 03/17/23 Range/Units 16:01 16:54 17:56 WBC (3.8-10.6) k/uL RBC (4.30-5.90) m/uL Hgb (13.0-17.5) gm/dL Hct (39.0-53.0) % RDW (11.5-15.5) % Plt Count (150-450) k/uL Neutrophils # (1.3-7.7) k/uL Lymphocytes # (1.0-4.8) k/uL ABG pH (7.35-7.45) ABG pO2 (83-108) mmHg ABG O2 Saturation (94-97) % Carbon Dioxide (22-30) mmol/L BUN (9-20) mg/dL Creatinine (0.66-1.25) mg/dL Glucose (74-99) mg/dL POC Glucose (mg/dL) 129 H 166 H 211 H (70-110) mg/dL Calcium (8.4-10.2) mg/dL Phosphorus (2.5-4.5) mg/dL AST (17-59) U/L Total Protein (6.3-8.2) g/dL Albumin (3.5-5.0) g/dL Procalcitonin (0.02-0.09) ng/mL Crossmatch 03/17/23 03/17/23 03/17/23 Range/Units 18:55 20:16 21:18 WBC (3.8-10.6) k/uL RBC (4.30-5.90) m/uL Hgb (13.0-17.5) gm/dL Hct (39.0-53.0) % RDW (11.5-15.5) % Plt Count (150-450) k/uL Neutrophils # (1.3-7.7) k/uL Lymphocytes # (1.0-4.8) k/uL ABG pH (7.35-7.45) ABG pO2 (83-108) mmHg ABG O2 Saturation (94-97) % Carbon Dioxide (22-30) mmol/L BUN (9-20) mg/dL Creatinine (0.66-1.25) mg/dL Glucose (74-99) mg/dL POC Glucose (mg/dL) 223 H 270 H 271 H (70-110) mg/dL Calcium (8.4-10.2) mg/dL Phosphorus (2.5-4.5) mg/dL AST (17-59) U/L Total Protein (6.3-8.2) g/dL Albumin (3.5-5.0) g/dL Procalcitonin (0.02-0.09) ng/mL Crossmatch 03/17/23 03/17/23 03/17/23 Range/Units 21:50 22:10 23:21 WBC (3.8-10.6) k/uL RBC (4.30-5.90) m/uL Hgb (13.0-17.5) gm/dL Hct (39.0-53.0) % RDW (11.5-15.5) % Plt Count (150-450) k/uL Neutrophils # (1.3-7.7) k/uL Lymphocytes # (1.0-4.8) k/uL ABG pH (7.35-7.45) ABG pO2 58 L* (83-108) mmHg ABG O2 Saturation 91.6 L (94-97) % Carbon Dioxide (22-30) mmol/L BUN (9-20) mg/dL Creatinine (0.66-1.25) mg/dL Glucose (74-99) mg/dL POC Glucose (mg/dL) 268 H 249 H (70-110) mg/dL Calcium (8.4-10.2) mg/dL Phosphorus (2.5-4.5) mg/dL AST (17-59) U/L Total Protein (6.3-8.2) g/dL Albumin (3.5-5.0) g/dL Procalcitonin (0.02-0.09) ng/mL Crossmatch 03/18/23 03/18/23 03/18/23 Range/Units 00:13 01:09 01:55 WBC (3.8-10.6) k/uL RBC (4.30-5.90) m/uL Hgb (13.0-17.5) gm/dL Hct (39.0-53.0) % RDW (11.5-15.5) % Plt Count (150-450) k/uL Neutrophils # (1.3-7.7) k/uL Lymphocytes # (1.0-4.8) k/uL ABG pH (7.35-7.45) ABG pO2 (83-108) mmHg ABG O2 Saturation (94-97) % Carbon Dioxide (22-30) mmol/L BUN (9-20) mg/dL Creatinine (0.66-1.25) mg/dL Glucose (74-99) mg/dL POC Glucose (mg/dL) 236 H 221 H 193 H (70-110) mg/dL Calcium (8.4-10.2) mg/dL Phosphorus (2.5-4.5) mg/dL AST (17-59) U/L Total Protein (6.3-8.2) g/dL Albumin (3.5-5.0) g/dL Procalcitonin (0.02-0.09) ng/mL Crossmatch 03/18/23 03/18/23 03/18/23 Range/Units 02:59 04:01 05:12 WBC (3.8-10.6) k/uL RBC (4.30-5.90) m/uL Hgb (13.0-17.5) gm/dL Hct (39.0-53.0) % RDW (11.5-15.5) % Plt Count (150-450) k/uL Neutrophils # (1.3-7.7) k/uL Lymphocytes # (1.0-4.8) k/uL ABG pH (7.35-7.45) ABG pO2 (83-108) mmHg ABG O2 Saturation (94-97) % Carbon Dioxide (22-30) mmol/L BUN (9-20) mg/dL Creatinine (0.66-1.25) mg/dL Glucose (74-99) mg/dL POC Glucose (mg/dL) 179 H 170 H 150 H (70-110) mg/dL Calcium (8.4-10.2) mg/dL Phosphorus (2.5-4.5) mg/dL AST (17-59) U/L Total Protein (6.3-8.2) g/dL Albumin (3.5-5.0) g/dL Procalcitonin (0.02-0.09) ng/mL Crossmatch 03/18/23 03/18/23 03/18/23 Range/Units 05:18 05:18 06:02 WBC 16.8 H (3.8-10.6) k/uL RBC 2.29 L (4.30-5.90) m/uL Hgb 7.5 L (13.0-17.5) gm/dL Hct 21.3 L (39.0-53.0) % RDW 17.2 H (11.5-15.5) % Plt Count 112 L (150-450) k/uL Neutrophils # 15.6 H (1.3-7.7) k/uL Lymphocytes # 0.6 L (1.0-4.8) k/uL ABG pH 7.34 L (7.35-7.45) ABG pO2 112 H (83-108) mmHg ABG O2 Saturation 98.2 H (94-97) % Carbon Dioxide 20 L (22-30) mmol/L BUN 119 H* (9-20) mg/dL Creatinine 3.50 H (0.66-1.25) mg/dL Glucose 129 H (74-99) mg/dL POC Glucose (mg/dL) (70-110) mg/dL Calcium 7.2 L (8.4-10.2) mg/dL Phosphorus (2.5-4.5) mg/dL AST 15 L (17-59) U/L Total Protein 4.5 L (6.3-8.2) g/dL Albumin 2.2 L (3.5-5.0) g/dL Procalcitonin (0.02-0.09) ng/mL Crossmatch 03/18/23 Range/Units 06:14 WBC (3.8-10.6) k/uL RBC (4.30-5.90) m/uL Hgb (13.0-17.5) gm/dL Hct (39.0-53.0) % RDW (11.5-15.5) % Plt Count (150-450) k/uL Neutrophils # (1.3-7.7) k/uL Lymphocytes # (1.0-4.8) k/uL ABG pH (7.35-7.45) ABG pO2 (83-108) mmHg ABG O2 Saturation (94-97) % Carbon Dioxide (22-30) mmol/L BUN (9-20) mg/dL Creatinine (0.66-1.25) mg/dL Glucose (74-99) mg/dL POC Glucose (mg/dL) 141 H (70-110) mg/dL Calcium (8.4-10.2) mg/dL Phosphorus (2.5-4.5) mg/dL AST (17-59) U/L Total Protein (6.3-8.2) g/dL Albumin (3.5-5.0) g/dL Procalcitonin (0.02-0.09) ng/mL Crossmatch Microbiology - Last 24 Hours (Table) 03/16/23 04:05 Blood Culture - Preliminary Blood 03/15/23 16:00 Gram Stain - Final Bronchial Washings - Random Bronchial Washings Culture - Final 03/15/23 01:20 Gram Stain - Final Sputum Sputum Culture - Final
[2023-03-18 07:16] LABS: Glucose,Whole Blood 130 mg/dL (70-110)
[2023-03-18] MEDS: HYDROmorphone 1 MG/ML 1 ML SYRINGE IVP PRN ×5 (07:50→22:28)
[2023-03-18 08:01] LABS: Glucose,Whole Blood 151 mg/dL (70-110)
[2023-03-18] MEDS: BUDESONIDE 1 MG/2 ML NEBU INHALATION SCH ×2 (08:01→19:15)
[2023-03-18] MEDS: FORMOTEROL FUMARATE 20 MCG/2 ML NEBU INHALATION SCH ×2 (08:01→19:15)
[2023-03-18] MEDS: SODIUM CHLORIDE 0.9% 1,000 ML IV SCH (08:11)
[2023-03-18] MEDS: hydrALAZINE HCL 50 MG TAB PO SCH ×2 (08:11→18:07)
--- NOTE | 2023-03-18 08:32 | XR ---
EXAMINATION TYPE: XR chest 1V portable DATE OF EXAM: 03/18/2023 Comparison: 03/17/2023 Clinical History: 77-year-old male Tube placement Findings: ET tube tip 3.3 cm from the sierra. NG tube courses below the diaphragm. Heart were aligned in size. Bilateral airspace opacities persist, greatest in the lower lungs. No significant change from recent prior. Impression: Similar bilateral airspace disease with a lower lung predominance.
--- NOTE | 2023-03-18 09:01 | P.PN ---
Subjective Progress Note Date: 03/18/23 On today's evaluation of 03/23/2023, I'm seeing the patient in the intensive care unit. At this point in time, the patient is intubated on a mechanical ventilator. Overnight, the patient became acutely hypoxic and more short of breath and he developed diffuse but the pulmonary infiltrates consistent with pneumonia and based on that the patient was intubated and placed on a mechanical ventilator. Note that this patient is 77 years of age. He has diabetes mellitus type 2, chronic kidney disease, hypothyroidism, COPD, hyperlipidemia and hypertension. He was also recently treated for cellulitis of lower extremity, discharged to [facility] for IV antibiotics through a PICC line in his right upper extremity and he received and completed the course of daptomycin. Discharged home to be readmitted for shortness of breath to our hospital on 03/08/2023. Note that the patient was being supported with BiPAP as various pressures. His proBNP level was elevated. His echocardiograms was recent showed a preserved LV function without any significant abnormalities. He was given bronchodilators. He was given IV Solu-Medrol. He was given IV Lasix. Another dose of Lasix was given to him by the nurse practitioner at 2:30 AM this morning. He has a Meneses catheter in place. Urine output is in order of 100 mL an hour. At this point in time, the patient remains on mechanical ventilator. He was quite a successful the mechanical ventilator and he was having frequent episodes of desaturation. He is on propofol running at 55 mcg/kg/m. I switched this patient's blood pressure control mode of mechanical ventilation and currently is on a pressure control of 12, rate of 26, PEEP of 12 with a FiO2 of 60%. His current pulse ox is 95%. He is on IV heparin and this was I believe initiated due to concerns of pulmonary embolism, on an empiric basis. The echoes at 18.9, hemoglobin is at 7.2, platelet count of 179, most recent blood gas showed a pH of 7.38 with a pCO2 of 43 and pO2 of 140. BUN is at 97 with a creatinine of 2.8, sodium level is at 156 and a potassium level is at 2.9. IV fluids are at KVO, 0.9. On today's evaluation of 03/16/2023, the patient is being seen for a follow-up. Remains intubated on mechanical ventilator. He was quite asynchronous with a mechanical ventilator yesterday. Based on that, I put the patient on pressure control mode of mechanical ventilation. This morning he is on a pressure control of 12, PEEP of 12, FiO2 of 50% with a rate of 26. He is on sedative medication the patient is currently on propofol running at 55 mcg/kg/m. He is quite sentences with a mechanical ventilator. A bronchoscopy was done and a bronchial lavage of the right middle lobe was done. The results are still pending for now. Meanwhile, a follow-up chest x-ray from today shows marked improvement and there is interval improvement of the diffuse bilateral pulmonary infiltrates along with some residual interstitial changes present. Nevertheless, the x-rays improved. In same time, Dr. patient is also improved and the patient has a pH of 7.3 with a pCO2 of 51 and pO2 of 207. The patient is afebrile. The patient is hemodynamically stable at this point and he is on no pressors. He remains on bronchodilators. He remains on steroids. He remains on a an empiric antibiotic coverage with IV Zosyn. Also, there is a drop in the hemoglobin down to 6.8 and the patient was given units of packed RBC. No signs of any bleeding. We have not witnessed any melanotic stools or hematemesis on this patient. He remains on enteral feeding for nutritional support and he is receiving vital high-protein at the rate of 23 mL an hour. The patient's sodium level is also improving. His free water deficit is being replaced. He is on D5 water running at 150 mL an hour. Sodium level is down to 148. The patient is also on insulin drip running at 34.8 units an hour. Most recent blood sugar is still elevated at 340. BUN is at 105, creatinine is at 3.0, serum bicarbs at 23, white cell count of 15.0. On today's evaluation of 03/17/2023, the patient remains intubated on a mechanical ventilator. He remains on propofol which is running at 55 mcg/kg/m. He remains on pressure control mode of mechanical ventilation with a pressure control 12, FiO2 at 40%, PEEP of 8 and the rate of 26. His chest x-ray still showing lower lobe bilateral palmar consolidation and infiltrates. Bronchoscopy and the bronchial lavage has yielded no microbial growth and the patient remains on IV Zosyn. No significant oral tracheal secretions. He is afebrile. He is hemodynamically stable. At the same time, the patient's free water deficit from corrected. Sodium level is down to 143. Continues to have chronic kidney disease with a creatinine of 3.26 and a BUN of 111. His blood sugars under better control the patient remains on IV insulin drip which is running at 7 units an hour. His current cardiac rhythm is sinus. No significant tachycardia. He is receiving enteral feeding for nutritional support and the patient is currently on vital high-protein at the rate of 20 mL an hour. Fluid balance is impossible the patient was receiving D5 water to supplement is free w ater deficit. Echocardiogram was showing moderate degree of pulmonary hypertension, preserved LV function,. 03/18/2023, the patient remains intubated on mechanical ventilator. Oxygenation remains borderline. Overnight, the patient desaturated and the pO2 was down to 58 based on the follow-up blood gas. Based on that, I increase the PEEP up to 12 and A similar FiO2 of 50%. He currently is on a pressure control mode at the rate of 26 and a pressure control of 12 cm of water. His current pulse ox is 97%. Chest x-ray still showing stable lower lobe pulmonary infiltrates/consolidations. Blood gas shows a pH of 7.34 with a pCO2 of 41 and pO2 of 112. As mentioned earlier, the exact nature of his pulmonary infiltrates are not clear. The patient had a bronchoscopy and bronchial lavage and the cultures are negative. The patient remains on IV Zosyn. Echocardiogram showed preserved LV function. Previous attempts to diurese this patient has failed and the patient became hypernatremic. The water deficit has been corrected and the patient's sodium level is down to 139. Echocardiogram showed a preserved LV function with an EF of around 60-65%. He does have severe pulmonary hyperte nsion with a PA pressure of 56. Rest of the valvular structures are all within normal limits. At the same time, the patient's echoes at 16.8, hemoglobin was at 7.5, platelet count is being gradually downtrending 212. BUN is 119 with a creatinine of 3.5. The patient suffers from chronic kidney disease and there is an acute kidney injury on top of his chronic kidney failure. Sodium is at 1 39, potassium is at 4. Repeat pro-calcitonin shows downtrending from 2.8 down to 1.05. No active cellulitis in lower extremities. Ultrasound abdomen showed some biliary sludge and the common bile duct was measuring around 1.2 cm. Kidneys were not adequately visualized. Overall fluid balance over the past 24 hours is +2.7 L. The patient is still receiving enteral feeding for nutritional support and the patient is currently on vital high-protein at the rate of 23 mL an hour. His IV fluids are currently at 0.9 at the rate of 75 mL an hour. Objective - Vital Signs Vital signs: Vital Signs Temp 98.5 F 03/18/23 04:00 Pulse 66 03/18/23 08:25 Resp 26 H 03/18/23 07:00 BP 137/55 03/18/23 07:00 Pulse Ox 98 03/18/23 07:00 FiO2 50 03/18/23 08:02 Intake & Output 03/17/23 03/18/23 03/18/23 18:59 06:59 18:59 Intake Total 2085.280 1825.372 159.878 Output Total 515 670 85 Balance 0097.104 0775.372 74.878 Weight 116.9 kg 114.5 kg Intake: IV 655 1055 85 Dextrose 5% in Water 1, 225 000 ml @ 75 mls/hr IV . [id number] FRANKO Rx#:[id number] NS TKO 230 130 10 Piperacillin-Tazobactam 3 200 100 .375 gm In Sodium Chloride 0.9% 100 ml @ 25 mls/hr IVPB Q8HR FRANKO Rx# :[id number] Sodium Chloride 0.45% 1, 825 75 000 ml @ 75 mls/hr IV . [id number] FRANKO Rx#:[id number] Intake, IV Titration 967.280 404.372 28.878 Amount Insulin Regular 100 unit 82.195 26.909 28.878 In Sodium Chloride 0.9% 100 ml @ Titrate IV .Q0M FRANKO Rx#:[id number] Sodium Chloride 0.45% 1, 600 000 ml @ 75 mls/hr IV . [id number] [facility]ANKO Rx#:[id number] propofoL 1,000 mg In 285.085 377.463 Empty Bag 1 bag @ 15 MCG/ KG/MIN 9.945 mls/hr IV . [id number] FRANKO Rx#:[id number] Tube Feeding 253 276 46 Other 210 90 Output: Urine 515 670 85 Other: Voiding Method Indwelling Catheter Indwelling Catheter ABP, PAP, CO, CI - Last Documented Arterial Blood Pressure 153/48 - Exam Patient is currently intubated on a mechanical ventilator. Orogastric and orotracheal tube are both in place. The patient is sedated with propofol. HEENT examination is grossly unremarkable. Neck supple. Full range of motion. No adenopathy thyromegaly or neck vein distention. Cardiovascular examination reveals regular rhythm rate. S1-S2 normal. No S3 or S4. No discernible murmur noted. Lungs reveal scattered rhonchi and crackles. Breath sounds equal. Breath sounds are equal bilaterally. No distinct wheezes noted. Abdomen soft bowel sounds are heard. No masses or tenderness. Extremities are intact. No cyanosis clubbing or edema. Skin is without rash or lesion. Neurologic examination is brief but nonfocal. - Labs CBC & Chem 7: 03/18/23 05:18 03/18/23 05:18 Labs: Abnormal Lab Results - Last 24 Hours (Table) 03/16/23 03/17/23 03/17/23 Range/Units 05:17 09:11 10:00 WBC (3.8-10.6) k/uL RBC (4.30-5.90) m/uL Hgb (13.0-17.5) gm/dL Hct (39.0-53.0) % RDW (11.5-15.5) % Plt Count (150-450) k/uL Neutrophils # (1.3-7.7) k/uL Lymphocytes # (1.0-4.8) k/uL ABG pH (7.35-7.45) ABG pO2 (83-108) mmHg ABG O2 Saturation (94-97) % Carbon Dioxide (22-30) mmol/L BUN (9-20) mg/dL Creatinine (0.66-1.25) mg/dL Glucose (74-99) mg/dL POC Glucose (mg/dL) 212 H (70-110) mg/dL Calcium (8.4-10.2) mg/dL Phosphorus (2.5-4.5) mg/dL AST (17-59) U/L Total Protein (6.3-8.2) g/dL Albumin (3.5-5.0) g/dL Procalcitonin 1.05 H (0.02-0.09) ng/mL Crossmatch See Detail 03/17/23 03/17/23 03/17/23 Range/Units 10:00 10:07 11:06 WBC (3.8-10.6) k/uL RBC (4.30-5.90) m/uL Hgb (13.0-17.5) gm/dL Hct (39.0-53.0) % RDW (11.5-15.5) % Plt Count (150-450) k/uL Neutrophils # (1.3-7.7) k/uL Lymphocytes # (1.0-4.8) k/uL ABG pH (7.35-7.45) ABG pO2 (83-108) mmHg ABG O2 Saturation (94-97) % Carbon Dioxide (22-30) mmol/L BUN (9-20) mg/dL Creatinine (0.66-1.25) mg/dL Glucose (74-99) mg/dL POC Glucose (mg/dL) 218 H 196 H (70-110) mg/dL Calcium (8.4-10.2) mg/dL Phosphorus 4.8 H (2.5-4.5) mg/dL AST (17-59) U/L Total Protein (6.3-8.2) g/dL Albumin (3.5-5.0) g/dL Procalcitonin (0.02-0.09) ng/mL Crossmatch 03/17/23 03/17/23 03/17/23 Range/Units 12:06 13:00 14:12 WBC (3.8-10.6) k/uL RBC (4.30-5.90) m/uL Hgb (13.0-17.5) gm/dL Hct (39.0-53.0) % RDW (11.5-15.5) % Plt Count (150-450) k/uL Neutrophils # (1.3-7.7) k/uL Lymphocytes # (1.0-4.8) k/uL ABG pH (7.35-7.45) ABG pO2 (83-108) mmHg ABG O2 Saturation (94-97) % Carbon Dioxide (22-30) mmol/L BUN (9-20) mg/dL Creatinine (0.66-1.25) mg/dL Glucose (74-99) mg/dL POC Glucose (mg/dL) 165 H 143 H 141 H (70-110) mg/dL Calcium (8.4-10.2) mg/dL Phosphorus (2.5-4.5) mg/dL AST (17-59) U/L Total Protein (6.3-8.2) g/dL Albumin (3.5-5.0) g/dL Procalcitonin (0.02-0.09) ng/mL Crossmatch 03/17/23 03/17/23 03/17/23 Range/Units 15:07 16:01 16:54 WBC (3.8-10.6) k/uL RBC (4.30-5.90) m/uL Hgb (13.0-17.5) gm/dL Hct (39.0-53.0) % RDW (11.5-15.5) % Plt Count (150-450) k/uL Neutrophils # (1.3-7.7) k/uL Lymphocytes # (1.0-4.8) k/uL ABG pH (7.35-7.45) ABG pO2 (83-108) mmHg ABG O2 Saturation (94-97) % Carbon Dioxide (22-30) mmol/L BUN (9-20) mg/dL Creatinine (0.66-1.25) mg/dL Glucose (74-99) mg/dL POC Glucose (mg/dL) 133 H 129 H 166 H (70-110) mg/dL Calcium (8.4-10.2) mg/dL Phosphorus (2.5-4.5) mg/dL AST (17-59) U/L Total Protein (6.3-8.2) g/dL Albumin (3.5-5.0) g/dL Procalcitonin (0.02-0.09) ng/mL Crossmatch 03/17/23 03/17/23 03/17/23 Range/Units 17:56 18:55 20:16 WBC (3.8-10.6) k/uL RBC (4.30-5.90) m/uL Hgb (13.0-17.5) gm/dL Hct (39.0-53.0) % RDW (11.5-15.5) % Plt Count (150-450) k/uL Neutrophils # (1.3-7.7) k/uL Lymphocytes # (1.0-4.8) k/uL ABG pH (7.35-7.45) ABG pO2 (83-108) mmHg ABG O2 Saturation (94-97) % Carbon Dioxide (22-30) mmol/L BUN (9-20) mg/dL Creatinine (0.66-1.25) mg/dL Glucose (74-99) mg/dL POC Glucose (mg/dL) 211 H 223 H 270 H (70-110) mg/dL Calcium (8.4-10.2) mg/dL Phosphorus (2.5-4.5) mg/dL AST (17-59) U/L Total Protein (6.3-8.2) g/dL Albumin (3.5-5.0) g/dL Procalcitonin (0.02-0.09) ng/mL Crossmatch 03/17/23 03/17/23 03/17/23 Range/Units 21:18 21:50 22:10 WBC (3.8-10.6) k/uL RBC (4.30-5.90) m/uL Hgb (13.0-17.5) gm/dL Hct (39.0-53.0) % RDW (11.5-15.5) % Plt Count (150-450) k/uL Neutrophils # (1.3-7.7) k/uL Lymphocytes # (1.0-4.8) k/uL ABG pH (7.35-7.45) ABG pO2 58 L* (83-108) mmHg ABG O2 Saturation 91.6 L (94-97) % Carbon Dioxide (22-30) mmol/L BUN (9-20) mg/dL Creatinine (0.66-1.25) mg/dL Glucose (74-99) mg/dL POC Glucose (mg/dL) 271 H 268 H (70-110) mg/dL Calcium (8.4-10.2) mg/dL Phosphorus (2.5-4.5) mg/dL AST (17-59) U/L Total Protein (6.3-8.2) g/dL Albumin (3.5-5.0) g/dL Procalcitonin (0.02-0.09) ng/mL Crossmatch 03/17/23 03/18/23 03/18/23 Range/Units 23:21 00:13 01:09 WBC (3.8-10.6) k/uL RBC (4.30-5.90) m/uL Hgb (13.0-17.5) gm/dL Hct (39.0-53.0) % RDW (11.5-15.5) % Plt Count (150-450) k/uL Neutrophils # (1.3-7.7) k/uL Lymphocytes # (1.0-4.8) k/uL ABG pH (7.35-7.45) ABG pO2 (83-108) mmHg ABG O2 Saturation (94-97) % Carbon Dioxide (22-30) mmol/L BUN (9-20) mg/dL Creatinine (0.66-1.25) mg/dL Glucose (74-99) mg/dL POC Glucose (mg/dL) 249 H 236 H 221 H (70-110) mg/dL Calcium (8.4-10.2) mg/dL Phosphorus (2.5-4.5) mg/dL AST (17-59) U/L Total Protein (6.3-8.2) g/dL Albumin (3.5-5.0) g/dL Procalcitonin (0.02-0.09) ng/mL Crossmatch 03/18/23 03/18/23 03/18/23 Range/Units 01:55 02:59 04:01 WBC (3.8-10.6) k/uL RBC (4.30-5.90) m/uL Hgb (13.0-17.5) gm/dL Hct (39.0-53.0) % RDW (11.5-15.5) % Plt Count (150-450) k/uL Neutrophils # (1.3-7.7) k/uL Lymphocytes # (1.0-4.8) k/uL ABG pH (7.35-7.45) ABG pO2 (83-108) mmHg ABG O2 Saturation (94-97) % Carbon Dioxide (22-30) mmol/L BUN (9-20) mg/dL Creatinine (0.66-1.25) mg/dL Glucose (74-99) mg/dL POC Glucose (mg/dL) 193 H 179 H 170 H (70-110) mg/dL Calcium (8.4-10.2) mg/dL Phosphorus (2.5-4.5) mg/dL AST (17-59) U/L Total Protein (6.3-8.2) g/dL Albumin (3.5-5.0) g/dL Procalcitonin (0.02-0.09) ng/mL Crossmatch 03/18/23 03/18/23 03/18/23 Range/Units 05:12 05:18 05:18 WBC 16.8 H (3.8-10.6) k/uL RBC 2.29 L (4.30-5.90) m/uL Hgb 7.5 L (13.0-17.5) gm/dL Hct 21.3 L (39.0-53.0) % RDW 17.2 H (11.5-15.5) % Plt Count 112 L (150-450) k/uL Neutrophils # 15.6 H (1.3-7.7) k/uL Lymphocytes # 0.6 L (1.0-4.8) k/uL ABG pH (7.35-7.45) ABG pO2 (83-108) mmHg ABG O2 Saturation (94-97) % Carbon Dioxide 20 L (22-30) mmol/L BUN 119 H* (9-20) mg/dL Creatinine 3.50 H (0.66-1.25) mg/dL Glucose 129 H (74-99) mg/dL POC Glucose (mg/dL) 150 H (70-110) mg/dL Calcium 7.2 L (8.4-10.2) mg/dL Phosphorus (2.5-4.5) mg/dL AST 15 L (17-59) U/L Total Protein 4.5 L (6.3-8.2) g/dL Albumin 2.2 L (3.5-5.0) g/dL Procalcitonin (0.02-0.09) ng/mL Crossmatch 03/18/23 03/18/23 03/18/23 Range/Units 06:02 06:14 07:14 WBC (3.8-10.6) k/uL RBC (4.30-5.90) m/uL Hgb (13.0-17.5) gm/dL Hct (39.0-53.0) % RDW (11.5-15.5) % Plt Count (150-450) k/uL Neutrophils # (1.3-7.7) k/uL Lymphocytes # (1.0-4.8) k/uL ABG pH 7.34 L (7.35-7.45) ABG pO2 112 H (83-108) mmHg ABG O2 Saturation 98.2 H (94-97) % Carbon Dioxide (22-30) mmol/L BUN (9-20) mg/dL Creatinine (0.66-1.25) mg/dL Glucose (74-99) mg/dL POC Glucose (mg/dL) 141 H 130 H (70-110) mg/dL Calcium (8.4-10.2) mg/dL Phosphorus (2.5-4.5) mg/dL AST (17-59) U/L Total Protein (6.3-8.2) g/dL Albumin (3.5-5.0) g/dL Procalcitonin (0.02-0.09) ng/mL Crossmatch 03/18/23 Range/Units 07:59 WBC (3.8-10.6) k/uL RBC (4.30-5.90) m/uL Hgb (13.0-17.5) gm/dL Hct (39.0-53.0) % RDW (11.5-15.5) % Plt Count (150-450) k/uL Neutrophils # (1.3-7.7) k/uL Lymphocytes # (1.0-4.8) k/uL ABG pH (7.35-7.45) ABG pO2 (83-108) mmHg ABG O2 Saturation (94-97) % Carbon Dioxide (22-30) mmol/L BUN (9-20) mg/dL Creatinine (0.66-1.25) mg/dL Glucose (74-99) mg/dL POC Glucose (mg/dL) 151 H (70-110) mg/dL Calcium (8.4-10.2) mg/dL Phosphorus (2.5-4.5) mg/dL AST (17-59) U/L Total Protein (6.3-8.2) g/dL Albumin (3.5-5.0) g/dL Procalcitonin (0.02-0.09) ng/mL Crossmatch Microbiology - Last 24 Hours (Table) 03/16/23 04:05 Blood Culture - Preliminary Blood 03/15/23 16:00 Gram Stain - Final Bronchial Washings - Random Bronchial Washings Culture - Final 03/15/23 01:20 Gram Stain - Final Sputum Sputum Culture - Final Assessment and Plan Plan: Acute hypoxemic respiratory failure, secondary to possible healthcare associated pneumonia, versus acute pulmonary edema, versus acute respiratory distress syndrome. Patient has developed diffuse bilateral pulmonary infiltrates. This could be cardiogenic versus noncardiac pulmonary edema. Patient failed BiPAP therapy and the patient is currently intubated on a mechanical ventilator. The patient is post bronchoscopy and the bronchial lavage regarding the bilateral pulmonary infiltrates. The cultures are negative and the patient remains on IV Zosyn. He remains on pressure control mode of mechanical ventilation. Not ready for further weaning. Oxygen patient is still borderline on 12 of PEEP and FiO2 of 50%. LV function is preserved with a recent echocardiogram and he has severe pulmonary hypertension. Chest x-ray from 03/18/2023 shows stable lower lobe consolidation. Acute on chronic kidney disease, urine output is in order of 40 mL an hour. Creatinine is stable at 3.5 Acute hypernatremia and his sodium level is currently at 139 Acute leukocytosis my improving and the white cell count of 16 Bilateral lower extremity edema, and cellulitis, treated and recovered Elevated troponins, rule out non-ST segment elevation myocardial infarction. Anemia of chronic disease. There is a interval drop in hemoglobin down to 6.8. The patient is chronically anemic and the patient is receiving a unit of packed RBC. Hemoglobin today is at 7.5 Stage III chronic kidney disease. Type 2 diabetes mellitus. The patient is currently on insulin drip is on hold Benign essential hypertension. Dyslipidemia. Hypothyroidism. Benign prostatic hypertrophy. Obesity Sinus bradycardia Plan The PEEP down to 10 Obtain a CAT scan of the brain obtain a CAT scan of the chest noncontrast Chest x-ray is still showing bilateral lower lobe consolidations Continue IV Zosyn IV fluids to KVO Stop the insulin drip and put the patient's eye scale insulin coverage keep diuretics on hold Repeat pro-calcitonin level is showing improvement No need for pressors at this point in time Continue enteral feeding for nutritional support Echocardiogram was ordered for today and will completed and the findings of essentially showing a preserved LV function with severe pulmonary hypertension with a EF around 65% and the pulmonary artery pressure of around 56 mmHg, no significant valvular abnormalities Monitor the white cell count Monitor renal function, stable Monitor urine output Condition is critically ill continue to follow and make further recommendations based on his progress. There is a critical care evaluation that was done in more than 30 minutes. Not ready for further weaning at this point in time. We'll continue to follow.
[2023-03-18] MEDS: CHLORHEXIDINE GLUCONATE 15 ML CUP MUCOUS MEM SCH ×2 (09:44→20:23)
[2023-03-18] MEDS: amLODIPine 2.5 MG TAB PO SCH (09:44)
[2023-03-18] MEDS: FAMOTIDINE 20 MG/2 ML VIAL IV SCH (09:45)
[2023-03-18] MEDS: LEVOTHYROXINE IVP 100 MCG/5 ML VIAL IV SCH (09:47)
--- NOTE | 2023-03-18 11:36 | P.PN ---
Subjective Patient is seen in follow-up for acute kidney injury on chronic kidney disease. Urine output 40-50 mL an hour. Intubated. Currently off IV fluids. Receiving tube feeds. Vital signs are stable. General: Resting in bed. HEENT: Intubated. LUNGS: Scattered rhonchi. HEART: Rate and Rhythm are regular. ABDOMEN: No distention. EXTREMITITES: Trace edema. Objective - Vital Signs Vital signs: Vital Signs Temp 98.1 F 03/18/23 08:00 Pulse 69 03/18/23 11:00 Resp 27 H 03/18/23 11:00 BP 143/53 03/18/23 11:00 Pulse Ox 96 03/18/23 11:00 FiO2 50 03/18/23 10:45 Intake & Output 03/17/23 03/18/23 03/18/23 18:59 06:59 18:59 Intake Total 2085.280 1825.372 698.878 Output Total 515 670 215 Balance 2926.672 6477.372 483.878 Weight 116.9 kg 114.5 kg Intake: IV 655 1055 245 Dextrose 5% in Water 1, 225 000 ml @ 75 mls/hr IV . [id number] [facility] Rx#:[id number] NS TKO 230 130 70 Piperacillin-Tazobactam 3 200 100 100 .375 gm In Sodium Chloride 0.9% 100 ml @ 25 mls/hr IVPB Q8HR [facility] Rx# :[id number] Sodium Chloride 0.45% 1, 825 75 000 ml @ 75 mls/hr IV . [id number] [facility] Rx#:[id number] Intake, IV Titration 967.280 404.372 128.878 Amount Insulin Regular 100 unit 82.195 26.909 28.878 In Sodium Chloride 0.9% 100 ml @ Titrate IV .Q0M [facility] Rx#:[id number] Sodium Chloride 0.45% 1, 600 000 ml @ 75 mls/hr IV . [id number] [facility] Rx#:[id number] propofoL 1,000 mg In 285.085 377.463 100 Empty Bag 1 bag @ 15 MCG/ KG/MIN 9.945 mls/hr IV . Q10H4M [facility] Rx#:[id number] Tube Feeding 253 276 325 Other 210 90 Output: Urine 515 670 215 Other: Voiding Method Indwelling Catheter Indwelling Catheter Indwelling Catheter ABP, PAP, CO, CI - Last Documented Arterial Blood Pressure 166/45 - Labs CBC & Chem 7: 03/18/23 05:18 03/18/23 05:18 Labs: Abnormal Lab Results - Last 24 Hours (Table) 03/16/23 03/17/23 03/17/23 Range/Units 05:17 10:00 12:06 WBC (3.8-10.6) k/uL RBC (4.30-5.90) m/uL Hgb (13.0-17.5) gm/dL Hct (39.0-53.0) % RDW (11.5-15.5) % Plt Count (150-450) k/uL Neutrophils # (1.3-7.7) k/uL Lymphocytes # (1.0-4.8) k/uL ABG pH (7.35-7.45) ABG pO2 (83-108) mmHg ABG O2 Saturation (94-97) % Carbon Dioxide (22-30) mmol/L BUN (9-20) mg/dL Creatinine (0.66-1.25) mg/dL Glucose (74-99) mg/dL POC Glucose (mg/dL) 165 H (70-110) mg/dL Calcium (8.4-10.2) mg/dL AST (17-59) U/L Total Protein (6.3-8.2) g/dL Albumin (3.5-5.0) g/dL Procalcitonin 1.05 H (0.02-0.09) ng/mL Crossmatch See Detail 03/17/23 03/17/23 03/17/23 Range/Units 13:00 14:12 15:07 WBC (3.8-10.6) k/uL RBC (4.30-5.90) m/uL Hgb (13.0-17.5) gm/dL Hct (39.0-53.0) % RDW (11.5-15.5) % Plt Count (150-450) k/uL Neutrophils # (1.3-7.7) k/uL Lymphocytes # (1.0-4.8) k/uL ABG pH (7.35-7.45) ABG pO2 (83-108) mmHg ABG O2 Saturation (94-97) % Carbon Dioxide (22-30) mmol/L BUN (9-20) mg/dL Creatinine (0.66-1.25) mg/dL Glucose (74-99) mg/dL POC Glucose (mg/dL) 143 H 141 H 133 H (70-110) mg/dL Calcium (8.4-10.2) mg/dL AST (17-59) U/L Total Protein (6.3-8.2) g/dL Albumin (3.5-5.0) g/dL Procalcitonin (0.02-0.09) ng/mL Crossmatch 03/17/23 03/17/23 03/17/23 Range/Units 16:01 16:54 17:56 WBC (3.8-10.6) k/uL RBC (4.30-5.90) m/uL Hgb (13.0-17.5) gm/dL Hct (39.0-53.0) % RDW (11.5-15.5) % Plt Count (150-450) k/uL Neutrophils # (1.3-7.7) k/uL Lymphocytes # (1.0-4.8) k/uL ABG pH (7.35-7.45) ABG pO2 (83-108) mmHg ABG O2 Saturation (94-97) % Carbon Dioxide (22-30) mmol/L BUN (9-20) mg/dL Creatinine (0.66-1.25) mg/dL Glucose (74-99) mg/dL POC Glucose (mg/dL) 129 H 166 H 211 H (70-110) mg/dL Calcium (8.4-10.2) mg/dL AST (17-59) U/L Total Protein (6.3-8.2) g/dL Albumin (3.5-5.0) g/dL Procalcitonin (0.02-0.09) ng/mL Crossmatch 03/17/23 03/17/23 03/17/23 Range/Units 18:55 20:16 21:18 WBC (3.8-10.6) k/uL RBC (4.30-5.90) m/uL Hgb (13.0-17.5) gm/dL Hct (39.0-53.0) % RDW (11.5-15.5) % Plt Count (150-450) k/uL Neutrophils # (1.3-7.7) k/uL Lymphocytes # (1.0-4.8) k/uL ABG pH (7.35-7.45) ABG pO2 (83-108) mmHg ABG O2 Saturation (94-97) % Carbon Dioxide (22-30) mmol/L BUN (9-20) mg/dL Creatinine (0.66-1.25) mg/dL Glucose (74-99) mg/dL POC Glucose (mg/dL) 223 H 270 H 271 H (70-110) mg/dL Calcium (8.4-10.2) mg/dL AST (17-59) U/L Total Protein (6.3-8.2) g/dL Albumin (3.5-5.0) g/dL Procalcitonin (0.02-0.09) ng/mL Crossmatch 03/17/23 03/17/23 03/17/23 Range/Units 21:50 22:10 23:21 WBC (3.8-10.6) k/uL RBC (4.30-5.90) m/uL Hgb (13.0-17.5) gm/dL Hct (39.0-53.0) % RDW (11.5-15.5) % Plt Count (150-450) k/uL Neutrophils # (1.3-7.7) k/uL Lymphocytes # (1.0-4.8) k/uL ABG pH (7.35-7.45) ABG pO2 58 L* (83-108) mmHg ABG O2 Saturation 91.6 L (94-97) % Carbon Dioxide (22-30) mmol/L BUN (9-20) mg/dL Creatinine (0.66-1.25) mg/dL Glucose (74-99) mg/dL POC Glucose (mg/dL) 268 H 249 H (70-110) mg/dL Calcium (8.4-10.2) mg/dL AST (17-59) U/L Total Protein (6.3-8.2) g/dL Albumin (3.5-5.0) g/dL Procalcitonin (0.02-0.09) ng/mL Crossmatch 03/18/23 03/18/23 03/18/23 Range/Units 00:13 01:09 01:55 WBC (3.8-10.6) k/uL RBC (4.30-5.90) m/uL Hgb (13.0-17.5) gm/dL Hct (39.0-53.0) % RDW (11.5-15.5) % Plt Count (150-450) k/uL Neutrophils # (1.3-7.7) k/uL Lymphocytes # (1.0-4.8) k/uL ABG pH (7.35-7.45) ABG pO2 (83-108) mmHg ABG O2 Saturation (94-97) % Carbon Dioxide (22-30) mmol/L BUN (9-20) mg/dL Creatinine (0.66-1.25) mg/dL Glucose (74-99) mg/dL POC Glucose (mg/dL) 236 H 221 H 193 H (70-110) mg/dL Calcium (8.4-10.2) mg/dL AST (17-59) U/L Total Protein (6.3-8.2) g/dL Albumin (3.5-5.0) g/dL Procalcitonin (0.02-0.09) ng/mL Crossmatch 03/18/23 03/18/23 03/18/23 Range/Units 02:59 04:01 05:12 WBC (3.8-10.6) k/uL RBC (4.30-5.90) m/uL Hgb (13.0-17.5) gm/dL Hct (39.0-53.0) % RDW (11.5-15.5) % Plt Count (150-450) k/uL Neutrophils # (1.3-7.7) k/uL Lymphocytes # (1.0-4.8) k/uL ABG pH (7.35-7.45) ABG pO2 (83-108) mmHg ABG O2 Saturation (94-97) % Carbon Dioxide (22-30) mmol/L BUN (9-20) mg/dL Creatinine (0.66-1.25) mg/dL Glucose (74-99) mg/dL POC Glucose (mg/dL) 179 H 170 H 150 H (70-110) mg/dL Calcium (8.4-10.2) mg/dL AST (17-59) U/L Total Protein (6.3-8.2) g/dL Albumin (3.5-5.0) g/dL Procalcitonin (0.02-0.09) ng/mL Crossmatch 03/18/23 03/18/23 03/18/23 Range/Units 05:18 05:18 06:02 WBC 16.8 H (3.8-10.6) k/uL RBC 2.29 L (4.30-5.90) m/uL Hgb 7.5 L (13.0-17.5) gm/dL Hct 21.3 L (39.0-53.0) % RDW 17.2 H (11.5-15.5) % Plt Count 112 L (150-450) k/uL Neutrophils # 15.6 H (1.3-7.7) k/uL Lymphocytes # 0.6 L (1.0-4.8) k/uL ABG pH 7.34 L (7.35-7.45) ABG pO2 112 H (83-108) mmHg ABG O2 Saturation 98.2 H (94-97) % Carbon Dioxide 20 L (22-30) mmol/L BUN 119 H* (9-20) mg/dL Creatinine 3.50 H (0.66-1.25) mg/dL Glucose 129 H (74-99) mg/dL POC Glucose (mg/dL) (70-110) mg/dL Calcium 7.2 L (8.4-10.2) mg/dL AST 15 L (17-59) U/L Total Protein 4.5 L (6.3-8.2) g/dL Albumin 2.2 L (3.5-5.0) g/dL Procalcitonin (0.02-0.09) ng/mL Crossmatch 03/18/23 03/18/23 03/18/23 Range/Units 06:14 07:14 07:59 WBC (3.8-10.6) k/uL RBC (4.30-5.90) m/uL Hgb (13.0-17.5) gm/dL Hct (39.0-53.0) % RDW (11.5-15.5) % Plt Count (150-450) k/uL Neutrophils # (1.3-7.7) k/uL Lymphocytes # (1.0-4.8) k/uL ABG pH (7.35-7.45) ABG pO2 (83-108) mmHg ABG O2 Saturation (94-97) % Carbon Dioxide (22-30) mmol/L BUN (9-20) mg/dL Creatinine (0.66-1.25) mg/dL Glucose (74-99) mg/dL POC Glucose (mg/dL) 141 H 130 H 151 H (70-110) mg/dL Calcium (8.4-10.2) mg/dL AST (17-59) U/L Total Protein (6.3-8.2) g/dL Albumin (3.5-5.0) g/dL Procalcitonin (0.02-0.09) ng/mL Crossmatch Microbiology - Last 24 Hours (Table) 03/16/23 04:05 Blood Culture - Preliminary Blood 03/15/23 16:00 Gram Stain - Final Bronchial Washings - Random Bronchial Washings Culture - Final 03/15/23 01:20 Gram Stain - Final Sputum Sputum Culture - Final Assessment and Plan Plan: Assessment: 1. Acute kidney injury secondary to ATN secondary to hemodynamic instability and infection. Creatinine 3.5 today. Urine output 40-50 mL an hour. No hydronephrosis noted on kidney ultrasound. Right kidney wasn't properly visualized. Left kidney is atrophic. 2. Chronic kidney disease stage IV with baseline creatinine 2-2.5. 3. Hypernatremia from free water diuresis and lack of oral water intake. Status post D5W. Improved. 4. Hypokalemia from diuresis. Replaced. Better. 5. Acute hypoxic respiratory failure secondary to pneumonia and volume overload. Status post bronchoscopy 03/15/2023. 6. Pneumonia on antibiotics. 7. Acute blood loss anemia. Status post blood transfusion this admission. Also received IV DDAVP. Heparin drip stopped. On Aranesp. Plan: Maintain tube feeds. IV Lasix if urine output drops to less than 20 mL an hour for more than 3 hours. Avoid nephrotoxins. Wean FiO2. Continue to monitor renal function and urine output. Blood glucose control. Continue to assess daily for need for renal replacement therapy. No urgency at this time.
[2023-03-18] MEDS: INSULIN ASPART (NovoLOG) 100 UNIT/ML VIAL SQ SCH ×4 (11:53→23:53)
[2023-03-18 12:00] LABS: Glucose,Whole Blood 245 mg/dL (70-110)
--- NOTE | 2023-03-18 14:40 | P.PN ---
Subjective Progress Note Date: 03/18/23 Principal diagnosis: Sepsis/pneumonia Patient is a 77-year-old male with a past medical his significant for diabetes mellitus hypertension hyperlipidemia prostate disorder presenting to the hospital on 03/07/2023 for evaluation of increasing shortness of breath weakness and mental status changes, subsequently did have worsening of his respiratory status requiring transfer the ICU ended up getting intubated, the patient is status post bronchoscopy completed on 03/15/2023 On today's evaluation that is 03/18/2023, the patient remains to be afebrile, the patient is hemodynamically stable and the patient FiO2 is slightly up to 50% today, no significant purulent secretions through the ET or diarrhea reported by the nursing staff Patient white count is slightly down to 16.8, creatinine is 3.50 Objective - Vital Signs Vital signs: Vital Signs Temp 98.1 F 03/18/23 12:00 Pulse 70 03/18/23 12:00 Resp 26 H 03/18/23 12:00 BP 143/53 03/18/23 12:00 Pulse Ox 95 03/18/23 12:00 FiO2 50 03/18/23 12:00 Intake & Output 03/17/23 03/18/23 03/18/23 18:59 06:59 18:59 Intake Total 2085.280 1825.372 631.878 Output Total 515 670 265 Balance 6862.491 1528.372 366.878 Weight 116.9 kg 114.5 kg Intake: IV 655 1055 265 Dextrose 5% in Water 1, 225 000 ml @ 75 mls/hr IV . [id number] [facility] Rx#:[id number] NS TKO 230 130 90 Piperacillin-Tazobactam 3 200 100 100 .375 gm In Sodium Chloride 0.9% 100 ml @ 25 mls/hr IVPB Q8HR [facility] Rx# :[id number] Sodium Chloride 0.45% 1, 825 75 000 ml @ 75 mls/hr IV . [id number] [facility] Rx#:[id number] Intake, IV Titration 967.280 404.372 228.878 Amount Insulin Regular 100 unit 82.195 26.909 28.878 In Sodium Chloride 0.9% 100 ml @ Titrate IV .Q0M [facility] Rx#:[id number] Sodium Chloride 0.45% 1, 600 000 ml @ 75 mls/hr IV . [id number] [facility] Rx#:[id number] propofoL 1,000 mg In 285.085 377.463 200 Empty Bag 1 bag @ 15 MCG/ KG/MIN 9.945 mls/hr IV . Q10H4M [facility] Rx#:[id number] Tube Feeding 253 276 138 Other 210 90 Output: Urine 515 670 265 Other: Voiding Method Indwelling Catheter Indwelling Catheter Indwelling Catheter ABP, PAP, CO, CI - Last Documented Arterial Blood Pressure 167/46 - Exam GENERAL DESCRIPTION: An elderly male intubated on the vent in no distress RESPIRATORY SYSTEM: Unlabored breathing , decreased breath sounds at bases HEART: S1 S2 regular rate and rhythm , ABDOMEN: Soft , no tenderness EXTREMITIES: No edema feet - Labs CBC & Chem 7: 03/18/23 05:18 03/18/23 05:18 Labs: Abnormal Lab Results - Last 24 Hours (Table) 03/17/23 03/17/23 03/17/23 Range/Units 10:00 14:12 15:07 WBC (3.8-10.6) k/uL RBC (4.30-5.90) m/uL Hgb (13.0-17.5) gm/dL Hct (39.0-53.0) % RDW (11.5-15.5) % Plt Count (150-450) k/uL Neutrophils # (1.3-7.7) k/uL Lymphocytes # (1.0-4.8) k/uL ABG pH (7.35-7.45) ABG pO2 (83-108) mmHg ABG O2 Saturation (94-97) % Carbon Dioxide (22-30) mmol/L BUN (9-20) mg/dL Creatinine (0.66-1.25) mg/dL Glucose (74-99) mg/dL POC Glucose (mg/dL) 141 H 133 H (70-110) mg/dL Calcium (8.4-10.2) mg/dL AST (17-59) U/L Total Protein (6.3-8.2) g/dL Albumin (3.5-5.0) g/dL Procalcitonin 1.05 H (0.02-0.09) ng/mL 03/17/23 03/17/23 03/17/23 Range/Units 16:01 16:54 17:56 WBC (3.8-10.6) k/uL RBC (4.30-5.90) m/uL Hgb (13.0-17.5) gm/dL Hct (39.0-53.0) % RDW (11.5-15.5) % Plt Count (150-450) k/uL Neutrophils # (1.3-7.7) k/uL Lymphocytes # (1.0-4.8) k/uL ABG pH (7.35-7.45) ABG pO2 (83-108) mmHg ABG O2 Saturation (94-97) % Carbon Dioxide (22-30) mmol/L BUN (9-20) mg/dL Creatinine (0.66-1.25) mg/dL Glucose (74-99) mg/dL POC Glucose (mg/dL) 129 H 166 H 211 H (70-110) mg/dL Calcium (8.4-10.2) mg/dL AST (17-59) U/L Total Protein (6.3-8.2) g/dL Albumin (3.5-5.0) g/dL Procalcitonin (0.02-0.09) ng/mL 03/17/23 03/17/23 03/17/23 Range/Units 18:55 20:16 21:18 WBC (3.8-10.6) k/uL RBC (4.30-5.90) m/uL Hgb (13.0-17.5) gm/dL Hct (39.0-53.0) % RDW (11.5-15.5) % Plt Count (150-450) k/uL Neutrophils # (1.3-7.7) k/uL Lymphocytes # (1.0-4.8) k/uL ABG pH (7.35-7.45) ABG pO2 (83-108) mmHg ABG O2 Saturation (94-97) % Carbon Dioxide (22-30) mmol/L BUN (9-20) mg/dL Creatinine (0.66-1.25) mg/dL Glucose (74-99) mg/dL POC Glucose (mg/dL) 223 H 270 H 271 H (70-110) mg/dL Calcium (8.4-10.2) mg/dL AST (17-59) U/L Total Protein (6.3-8.2) g/dL Albumin (3.5-5.0) g/dL Procalcitonin (0.02-0.09) ng/mL 03/17/23 03/17/23 03/17/23 Range/Units 21:50 22:10 23:21 WBC (3.8-10.6) k/uL RBC (4.30-5.90) m/uL Hgb (13.0-17.5) gm/dL Hct (39.0-53.0) % RDW (11.5-15.5) % Plt Count (150-450) k/uL Neutrophils # (1.3-7.7) k/uL Lymphocytes # (1.0-4.8) k/uL ABG pH (7.35-7.45) ABG pO2 58 L* (83-108) mmHg ABG O2 Saturation 91.6 L (94-97) % Carbon Dioxide (22-30) mmol/L BUN (9-20) mg/dL Creatinine (0.66-1.25) mg/dL Glucose (74-99) mg/dL POC Glucose (mg/dL) 268 H 249 H (70-110) mg/dL Calcium (8.4-10.2) mg/dL AST (17-59) U/L Total Protein (6.3-8.2) g/dL Albumin (3.5-5.0) g/dL Procalcitonin (0.02-0.09) ng/mL 03/18/23 03/18/23 03/18/23 Range/Units 00:13 01:09 01:55 WBC (3.8-10.6) k/uL RBC (4.30-5.90) m/uL Hgb (13.0-17.5) gm/dL Hct (39.0-53.0) % RDW (11.5-15.5) % Plt Count (150-450) k/uL Neutrophils # (1.3-7.7) k/uL Lymphocytes # (1.0-4.8) k/uL ABG pH (7.35-7.45) ABG pO2 (83-108) mmHg ABG O2 Saturation (94-97) % Carbon Dioxide (22-30) mmol/L BUN (9-20) mg/dL Creatinine (0.66-1.25) mg/dL Glucose (74-99) mg/dL POC Glucose (mg/dL) 236 H 221 H 193 H (70-110) mg/dL Calcium (8.4-10.2) mg/dL AST (17-59) U/L Total Protein (6.3-8.2) g/dL Albumin (3.5-5.0) g/dL Procalcitonin (0.02-0.09) ng/mL 03/18/23 03/18/23 03/18/23 Range/Units 02:59 04:01 05:12 WBC (3.8-10.6) k/uL RBC (4.30-5.90) m/uL Hgb (13.0-17.5) gm/dL Hct (39.0-53.0) % RDW (11.5-15.5) % Plt Count (150-450) k/uL Neutrophils # (1.3-7.7) k/uL Lymphocytes # (1.0-4.8) k/uL ABG pH (7.35-7.45) ABG pO2 (83-108) mmHg ABG O2 Saturation (94-97) % Carbon Dioxide (22-30) mmol/L BUN (9-20) mg/dL Creatinine (0.66-1.25) mg/dL Glucose (74-99) mg/dL POC Glucose (mg/dL) 179 H 170 H 150 H (70-110) mg/dL Calcium (8.4-10.2) mg/dL AST (17-59) U/L Total Protein (6.3-8.2) g/dL Albumin (3.5-5.0) g/dL Procalcitonin (0.02-0.09) ng/mL 03/18/23 03/18/23 03/18/23 Range/Units 05:18 05:18 06:02 WBC 16.8 H (3.8-10.6) k/uL RBC 2.29 L (4.30-5.90) m/uL Hgb 7.5 L (13.0-17.5) gm/dL Hct 21.3 L (39.0-53.0) % RDW 17.2 H (11.5-15.5) % Plt Count 112 L (150-450) k/uL Neutrophils # 15.6 H (1.3-7.7) k/uL Lymphocytes # 0.6 L (1.0-4.8) k/uL ABG pH 7.34 L (7.35-7.45) ABG pO2 112 H (83-108) mmHg ABG O2 Saturation 98.2 H (94-97) % Carbon Dioxide 20 L (22-30) mmol/L BUN 119 H* (9-20) mg/dL Creatinine 3.50 H (0.66-1.25) mg/dL Glucose 129 H (74-99) mg/dL POC Glucose (mg/dL) (70-110) mg/dL Calcium 7.2 L (8.4-10.2) mg/dL AST 15 L (17-59) U/L Total Protein 4.5 L (6.3-8.2) g/dL Albumin 2.2 L (3.5-5.0) g/dL Procalcitonin (0.02-0.09) ng/mL 03/18/23 03/18/23 03/18/23 Range/Units 06:14 07:14 07:59 WBC (3.8-10.6) k/uL RBC (4.30-5.90) m/uL Hgb (13.0-17.5) gm/dL Hct (39.0-53.0) % RDW (11.5-15.5) % Plt Count (150-450) k/uL Neutrophils # (1.3-7.7) k/uL Lymphocytes # (1.0-4.8) k/uL ABG pH (7.35-7.45) ABG pO2 (83-108) mmHg ABG O2 Saturation (94-97) % Carbon Dioxide (22-30) mmol/L BUN (9-20) mg/dL Creatinine (0.66-1.25) mg/dL Glucose (74-99) mg/dL POC Glucose (mg/dL) 141 H 130 H 151 H (70-110) mg/dL Calcium (8.4-10.2) mg/dL AST (17-59) U/L Total Protein (6.3-8.2) g/dL Albumin (3.5-5.0) g/dL Procalcitonin (0.02-0.09) ng/mL 03/18/23 Range/Units 11:58 WBC (3.8-10.6) k/uL RBC (4.30-5.90) m/uL Hgb (13.0-17.5) gm/dL Hct (39.0-53.0) % RDW (11.5-15.5) % Plt Count (150-450) k/uL Neutrophils # (1.3-7.7) k/uL Lymphocytes # (1.0-4.8) k/uL ABG pH (7.35-7.45) ABG pO2 (83-108) mmHg ABG O2 Saturation (94-97) % Carbon Dioxide (22-30) mmol/L BUN (9-20) mg/dL Creatinine (0.66-1.25) mg/dL Glucose (74-99) mg/dL POC Glucose (mg/dL) 245 H (70-110) mg/dL Calcium (8.4-10.2) mg/dL AST (17-59) U/L Total Protein (6.3-8.2) g/dL Albumin (3.5-5.0) g/dL Procalcitonin (0.02-0.09) ng/mL Microbiology - Last 24 Hours (Table) 03/16/23 04:05 Blood Culture - Preliminary Blood 03/15/23 16:00 Gram Stain - Final Bronchial Washings - Random Bronchial Washings Culture - Final 03/15/23 01:20 Gram Stain - Final Sputum Sputum Culture - Final Assessment and Plan (1) Pneumonia Current Visit: No Status: Acute Code(s): J18.9 - PNEUMONIA, UNSPECIFIED ORG ANISM SNOMED Code(s): 526342114 Plan: 1patient with acute respiratory failure which is multifactorial in this patient has been in the hospital for almost 8 to 9 days with initial presentation of sepsis possible pneumonia however no cultures were done during this hospital stay patient did not get intubated because of worsening respiratory status and culture has been obtained and possible plan for bronchoscopy on 03/15/2023, we will need to cover for the gram-negative to be the likely pathogen 2-BAL cultures are currently pending, patient did have a procalcitonin 2.84 3-patient is afebrile, white count is slightly down today, patient to continue with Zosyn 3.375 g every 8 hours and monitor clinical course closely Dictation was produced using [employer] dictation software. please excuse any grammatical, word or spelling errors. Time with Patient: Less than 30
--- NOTE | 2023-03-18 15:28 | CT ---
EXAMINATION TYPE: CT brain wo con DATE OF EXAM: 03/18/2023 COMPARISON: 12/07/2021 HISTORY: Altered mental status. CT DLP: [address] of the brain was performed. The ventricles, basal cisterns and sulci overlying the cerebral convexities demonstrate mild enlargem ent. There is no evidence for intracranial hemorrhage or sulcal effacement. There is decreased attenuation about the periventricular white matter and deep white matter of both c erebral hemispheres, compatible with chronic small vessel ischemia. Differential diagnosis does inclu de demyelination. No mass effects are seen.No midline shift. Osseous calvarium is intact. If symptoms persist consider MRI. IMPRESSION: 1. Age related atrophic and chronic small vessel ischemic change without acute intracranial process s een at this time.
--- NOTE | 2023-03-18 15:34 | CT ---
EXAMINATION TYPE: CT chest wo con DATE OF EXAM: 03/18/2023 COMPARISON: None HISTORY: Respiratory failure. CT DLP: 656.9. mGycm Unenhanced CT of the chest was performed with lung and mediastinal window settings submitted. The la ck of contrast limits evaluation of the vascular, mediastinal and parenchymal structures including th e upper abdomen. LUNGS: Diffuse airspace consolidation is noted throughout both lung jackson greatest within the mid an d lower lobes with air bronchograms seen. There is additional multifocal infiltrate within the upper lobes with associated groundglass opacity seen throughout. There are small bilateral pleural effusion s. No evidence of pneumothorax. MEDIASTINUM/PEACE: Thoracic aorta is of normal caliber with limited evaluation given lack of contrast . There is evidence of cardiomegaly. NG tube seen coursing into the stomach. No evidence for mediasti nal mass. No lymph nodes greater than 1cm. UPPER ABDOMEN: Small gallstones noted. OTHER: No significant other abnormality. IMPRESSION: 1. Diffuse airspace disease as discussed suspicious for pneumonia, ARDS or acute pulmonary edema.
[2023-03-18 17:23] LABS: Glucose,Whole Blood 269 mg/dL (70-110)
[2023-03-18] MEDS: HYDROPHILIC CREAM 180 GM TUBE TOPICAL SCH (18:33)
[2023-03-18] MEDS: methylPREDNISolone SOD SUCCI 40 MG/ML 1 ML VIAL IV SCH (20:23)
[2023-03-18 20:41] LABS: Glucose,Whole Blood 240 mg/dL (70-110)
[2023-03-18 22:07] LABS: Glucose,Whole Blood 241 mg/dL (70-110)
[2023-03-18] MEDS: hydrALAZINE HCL 20 MG/ML 1 ML VIAL IVP PRN (22:37)
[2023-03-18 23:32] LABS: Glucose,Whole Blood 255 mg/dL (70-110)
--- NOTE | 2023-03-18 23:38 | P.PN ---
Subjective Progress Note Date: 03/17/23 77 years old male with past medical history of Diabetes Mellitus, Hyperlipidemia, Hypertension, Osteoarthritis, cervical spine decompression and fusion surgery. PCP is Dr. Blount patient was sent from our with for shortness of breathwith hypoxia and saturating 81. 82% on 4 L oxygen via nasal cannula. Right upper extremity PICC line patient last time he was discharged on daptomycin every 48 hours 14 d ays.patient finished treatment and his lower extremity cellulitis is improving patient currently on BiPAP, with oxygen saturation 97%. Afebrile. Labs showed leukocytosis of 14,000, hemoglobin 7.5 creatinine is elevated at 2.8 which is at baseline of 2.2-3.0 Troponin is elevated at 0.15, 0.13.proBNP 4460. TSH is low at 0.09 Urine analysis is not suspicious for infection. chest x-ray: confluent bilateral Multifocal airspace opacities patient is a started on ceftriaxone, Zithromax IV Lasix 03/13/2023 Patient is seen and evaluated in room at bedside; remains on BiPAP; patient went into respiratory distress during the night; stat ABGs were completed which revealed a pO2 of 103 and pCO2 of 41 - Patient is currently on BiPAP with FiO2 of 100% -- Vital signs are reviewed and remained stable Blood work reveals a WBC of 16.8, hemoglobin of 7, hematocrit 22.5 and platelet count of 182, sodium 154 cultures and 2.1, BUN/creatinine of 104/3.15 and blood glucose of 240 --Chest x-ray reveals diffuse bilateral infiltrates possibly diffuse pneumonia versus interstitial edema or acute respiratory distress syndrome - Patient remains on IV heparin for possible PE; V/Q scan cannot be completed due to unstable respiratory status -- Patient has been placed on IV fluids in form of D5 water for hypernatremia; we will monitor sodium levels closely Prognosis remains guarded 03/14/2023 Patient is seen and evaluated in room at bedside; transferred to ICU; patient had been agitated and restless and noncompliant with BiPAP resulting in worsening respiratory status -- Patient has been placed on Precedex and remains on BiPAP with settings of 16/8 and 80% Vital signs are reviewed with temperature of 98.4, pulse 59, respirations 17 and blood pressure of 164/68 White count is 22.4, hemoglobin 7.4, hematocrit 24.5, with a normal platelet count. Sodium 157, potassium 2.8, chlorides 119, CO2 26, BUN 109, and creatinine 2.73. Chest x-ray continues to show bilateral airspace disease, which may be on the basis of fluid, pneumonia, or acute respiratory distress syndrome. The patient's currently on IV heparin empirically. The patient's also receiving Zosyn. Heparin can be discontinued once PE is ruled out 03/15. Patient seen and examined. Labs done this morning showed WBC 18.9, hemoglobin 7.2, platelet count 179, sodium 156, potassium 2.9, BUN 97, creatinine 2.86. Patient was intubated overnight, currently on mechanical ventilation. Currently on propofol. 03/16. Patient seen and examined. Patient continues to be intubated. Hemoglob in this morning is 6.8. Patient getting 1 unit of packed red blood cell. Blood sugars were elevated, currently on insulin drip 03/17/2023 Patient is currently intubated and on mechanical ventilator, assist control. Patient is also sedated with propofol. Chest x-ray today showed similar bilateral airspace disease with lower lung predominance. Patient had bronchoscopy done on 03/15/2023 showed no growth so far. Patient is being continued on Zosyn. Patient is on IV hydration. Patient is also on insulin drip for better blood sugar control. Laboratory data showed sodium 143 potassium 4.2 chloride 109 bicarb is 23 BUN 111 and creatinine 3.26 blood sugar 120, WBC 17.7 hemoglobin 7.5 and platelets 138. Current Meds reviewed. REVIEW OF SYSTEMS: Cannot be obtained as patient is intubated PHYSICAL EXAMINATION: GENERAL: The patient is intubated HEENT: Pupils are round and equally reacting to light. EOMI. No scleral icterus. No conjunctival pallor. Normocephalic, atraumatic. No pharyngeal erythema. No thyromegaly. CARDIOVASCULAR: S1 and S2 present. No murmurs, rubs, or gallops. PULMONARY: Coarse Breath sounds bilaterally no wheeze ABDOMEN: Soft, nontender, nondistended, normoactive bowel sounds. No palpable organomegaly. MUSCULOSKELETAL: No joint swelling or deformity. EXTREMITIES: No cyanosis, clubbing, or pedal edema. NEUROLOGICAL: Gross neurological examination did not reveal any focal deficits. SKIN: No rashes. Assessment and plan Bacterial pneumonialikely HCAP Acute hypoxic respiratory failure due to Pneumonia vs Pulmonary edema and ARDS Elevated troponin normochromic, normocytic anemia chronic kidney disease stage III Diabetes mellitus Hypertension Hyperlipidemia History of osteoarthritis Hypothyroidism with very low TSH upper extremity tremor on mirapex restless leg syndrom Plan: Monitor vital signs Monitor CBC Continue vent management per ICU Strict I's and O's, daily weights DCed D5 W continue IV Zosyn Monitor blood sugar levels, continue insulin drip Anticoagulation on hold secondary to drop in hemoglobin Cardiology following Nephrology following Critical care following Labs and medication were reviewed.. Continue same treatment. Continue with symptomatic treatment. Resume home medication. Monitor labs and vitals. DVT and GI prophylaxis. Further recommendations as per clinical course of the patient Objective - Vital Signs Vital signs: Vital Signs Temp 99.3 F 03/17/23 08:00 Pulse 68 03/17/23 09:01 Resp 27 H 03/17/23 09:00 BP 130/57 03/17/23 09:00 Pulse Ox 90 L 03/17/23 09:00 FiO2 40 03/17/23 08:45 Intake & Output 03/16/23 03/17/23 03/17/23 18:59 06:59 18:59 Intake Total 2491.544 1960.377 118.987 Output Total 275 360 35 Balance 2216.544 1600.377 83.987 Weight 116.9 kg Intake: IV 1175 1110 85 Desmopressin Acetate 32 50 mcg In Sodium Chloride 0. 9% 50 ml @ 200 mls/hr IVPB ONCE ONE Rx#: [id number] Dextrose 5% in Water 1, 1025 900 75 000 ml @ 75 mls/hr IV . [id number] [facility]ANKO Rx#:[id number] NS TKO 110 10 Piperacillin-Tazobactam 3 100 100 .375 gm In Sodium Chloride 0.9% 100 ml @ 25 mls/hr IVPB Q8HR [facility]KO Rx# :[id number] Intake, IV Titration 560.544 484.377 10.987 Amount Insulin Regular 100 unit 360.544 84.377 10.987 In Sodium Chloride 0.9% 100 ml @ Titrate IV .Q0M [facility]KO Rx#:[id number] propofoL 1,000 mg In 200 400 Empty Bag 1 bag @ 15 MCG/ KG/MIN 9.945 mls/hr IV . Q10H4M [facility]ANKO Rx#:[id number] Tube Feeding 276 276 23 Blood Product 310 Rc As-1 Unit 310 [id number] Other 170 90 Rc As-1 Unit 50 [id number] Output: Urine 275 360 35 Other: Voiding Method Indwelling Catheter Indwelling Catheter ABP, PAP, CO, CI - Last Documented Arterial Blood Pressure 161/53 - Labs CBC & Chem 7: 03/18/23 05:18 03/18/23 05:18 Labs: Abnormal Lab Results - Last 24 Hours (Table) 03/16/23 03/16/23 03/16/23 Range/Units 05:17 10:31 11:34 WBC (3.8-10.6) k/uL RBC (4.30-5.90) m/uL Hgb (13.0-17.5) gm/dL Hct (39.0-53.0) % RDW (11.5-15.5) % Plt Count (150-450) k/uL ABG pO2 (83-108) mmHg ABG Total CO2 (19-24) mmol/L Sodium (137-145) mmol/L Chloride (98-107) mmol/L BUN (9-20) mg/dL Creatinine (0.66-1.25) mg/dL Glucose (74-99) mg/dL POC Glucose (mg/dL) 294 H 227 H (70-110) mg/dL Calcium (8.4-10.2) mg/dL AST (17-59) U/L Total Protein (6.3-8.2) g/dL Albumin (3.5-5.0) g/dL Crossmatch See Detail 03/16/23 03/16/23 03/16/23 Range/Units 13:25 14:14 15:08 WBC (3.8-10.6) k/uL RBC (4.30-5.90) m/uL Hgb (13.0-17.5) gm/dL Hct (39.0-53.0) % RDW (11.5-15.5) % Plt Count (150-450) k/uL ABG pO2 (83-108) mmHg ABG Total CO2 (19-24) mmol/L Sodium (137-145) mmol/L Chloride (98-107) mmol/L BUN (9-20) mg/dL Creatinine (0.66-1.25) mg/dL Glucose (74-99) mg/dL POC Glucose (mg/dL) 198 H 167 H 143 H (70-110) mg/dL Calcium (8.4-10.2) mg/dL AST (17-59) U/L Total Protein (6.3-8.2) g/dL Albumin (3.5-5.0) g/dL Crossmatch 03/16/23 03/16/23 03/16/23 Range/Units 17:04 18:17 20:55 WBC (3.8-10.6) k/uL RBC (4.30-5.90) m/uL Hgb (13.0-17.5) gm/dL Hct (39.0-53.0) % RDW (11.5-15.5) % Plt Count (150-450) k/uL ABG pO2 (83-108) mmHg ABG Total CO2 (19-24) mmol/L Sodium 146 H (137-145) mmol/L Chloride 111 H (98-107) mmol/L BUN 107 H* (9-20) mg/dL Creatinine 2.96 H (0.66-1.25) mg/dL Glucose 100 H (74-99) mg/dL POC Glucose (mg/dL) 126 H 117 H (70-110) mg/dL Calcium 8.0 L (8.4-10.2) mg/dL AST (17-59) U/L Total Protein (6.3-8.2) g/dL Albumin (3.5-5.0) g/dL Crossmatch 03/16/23 03/16/23 03/16/23 Range/Units 22:11 23:07 23:40 WBC (3.8-10.6) k/uL RBC (4.30-5.90) m/uL Hgb (13.0-17.5) gm/dL Hct (39.0-53.0) % RDW (11.5-15.5) % Plt Count (150-450) k/uL ABG pO2 (83-108) mmHg ABG Total CO2 (19-24) mmol/L Sodium (137-145) mmol/L Chloride (98-107) mmol/L BUN (9-20) mg/dL Creatinine (0.66-1.25) mg/dL Glucose (74-99) mg/dL POC Glucose (mg/dL) 154 H 207 H 219 H (70-110) mg/dL Calcium (8.4-10.2) mg/dL AST (17-59) U/L Total Protein (6.3-8.2) g/dL Albumin (3.5-5.0) g/dL Crossmatch 03/16/23 03/17/23 03/17/23 Range/Units 23:57 01:01 02:13 WBC (3.8-10.6) k/uL RBC (4.30-5.90) m/uL Hgb (13.0-17.5) gm/dL Hct (39.0-53.0) % RDW (11.5-15.5) % Plt Count (150-450) k/uL ABG pO2 (83-108) mmHg ABG Total CO2 (19-24) mmol/L Sodium (137-145) mmol/L Chloride (98-107) mmol/L BUN (9-20) mg/dL Creatinine (0.66-1.25) mg/dL Glucose (74-99) mg/dL POC Glucose (mg/dL) 217 H 205 H 178 H (70-110) mg/dL Calcium (8.4-10.2) mg/dL AST (17-59) U/L Total Protein (6.3-8.2) g/dL Albumin (3.5-5.0) g/dL Crossmatch 03/17/23 03/17/23 03/17/23 Range/Units 02:43 03:25 04:13 WBC (3.8-10.6) k/uL RBC (4.30-5.90) m/uL Hgb (13.0-17.5) gm/dL Hct (39.0-53.0) % RDW (11.5-15.5) % Plt Count (150-450) k/uL ABG pO2 69 L (83-108) mmHg ABG Total CO2 27 H (19-24) mmol/L Sodium (137-145) mmol/L Chloride (98-107) mmol/L BUN (9-20) mg/dL Creatinine (0.66-1.25) mg/dL Glucose (74-99) mg/dL POC Glucose (mg/dL) 170 H 156 H (70-110) mg/dL Calcium (8.4-10.2) mg/dL AST (17-59) U/L Total Protein (6.3-8.2) g/dL Albumin (3.5-5.0) g/dL Crossmatch 03/17/23 03/17/23 03/17/23 Range/Units 04:24 05:19 05:21 WBC 17.7 H (3.8-10.6) k/uL RBC 2.45 L (4.30-5.90) m/uL Hgb 7.5 L (13.0-17.5) gm/dL Hct 22.9 L (39.0-53.0) % RDW 17.3 H (11.5-15.5) % Plt Count 138 L (150-450) k/uL ABG pO2 (83-108) mmHg ABG Total CO2 (19-24) mmol/L Sodium (137-145) mmol/L Chloride (98-107) mmol/L BUN (9-20) mg/dL Creatinine (0.66-1.25) mg/dL Glucose (74-99) mg/dL POC Glucose (mg/dL) 144 H 137 H (70-110) mg/dL Calcium (8.4-10.2) mg/dL AST (17-59) U/L Total Protein (6.3-8.2) g/dL Albumin (3.5-5.0) g/dL Crossmatch 03/17/23 03/17/23 03/17/23 Range/Units 05:21 06:24 07:14 WBC (3.8-10.6) k/uL RBC (4.30-5.90) m/uL Hgb (13.0-17.5) gm/dL Hct (39.0-53.0) % RDW (11.5-15.5) % Plt Count (150-450) k/uL ABG pO2 (83-108) mmHg ABG Total CO2 (19-24) mmol/L Sodium (137-145) mmol/L Chloride 109 H (98-107) mmol/L BUN 111 H* (9-20) mg/dL Creatinine 3.26 H (0.66-1.25) mg/dL Glucose 120 H (74-99) mg/dL POC Glucose (mg/dL) 153 H 186 H (70-110) mg/dL Calcium 7.7 L (8.4-10.2) mg/dL AST 13 L (17-59) U/L Total Protein 4.6 L (6.3-8.2) g/dL Albumin 2.3 L (3.5-5.0) g/dL Crossmatch 03/17/23 03/17/23 Range/Units 08:17 09:11 WBC (3.8-10.6) k/uL RBC (4.30-5.90) m/uL Hgb (13.0-17.5) gm/dL Hct (39.0-53.0) % RDW (11.5-15.5) % Plt Count (150-450) k/uL ABG pO2 (83-108) mmHg ABG Total CO2 (19-24) mmol/L Sodium (137-145) mmol/L Chloride (98-107) mmol/L BUN (9-20) mg/dL Creatinine (0.66-1.25) mg/dL Glucose (74-99) mg/dL POC Glucose (mg/dL) 222 H 212 H (70-110) mg/dL Calcium (8.4-10.2) mg/dL AST (17-59) U/L Total Protein (6.3-8.2) g/dL Albumin (3.5-5.0) g/dL Crossmatch Microbiology - Last 24 Hours (Table) 03/15/23 16:00 Acid Fast Bacilli Smear - Preliminary Bronchial Washings - Random 03/15/23 16:00 Gram Stain - Preliminary Bronchial Washings - Random Bronchial Washings Culture - Preliminary
--- NOTE | 2023-03-18 23:47 | P.PN ---
Subjective Progress Note Date: 03/18/23 77 years old male with past medical history of Diabetes Mellitus, Hyperlipidemia, Hypertension, Osteoarthritis, cervical spine decompression and fusion surgery. PCP is Dr. Blount patient was sent from our with for shortness of breathwith hypoxia and saturating 81. 82% on 4 L oxygen via nasal cannula. Right upper extremity PICC line patient last time he was discharged on daptomycin every 48 hours 14 d ays.patient finished treatment and his lower extremity cellulitis is improving patient currently on BiPAP, with oxygen saturation 97%. Afebrile. Labs showed leukocytosis of 14,000, hemoglobin 7.5 creatinine is elevated at 2.8 which is at baseline of 2.2-3.0 Troponin is elevated at 0.15, 0.13.proBNP 4460. TSH is low at 0.09 Urine analysis is not suspicious for infection. chest x-ray: confluent bilateral Multifocal airspace opacities patient is a started on ceftriaxone, Zithromax IV Lasix 03/13/2023 Patient is seen and evaluated in room at bedside; remains on BiPAP; patient went into respiratory distress during the night; stat ABGs were completed which revealed a pO2 of 103 and pCO2 of 41 - Patient is currently on BiPAP with FiO2 of 100% -- Vital signs are reviewed and remained stable Blood work reveals a WBC of 16.8, hemoglobin of 7, hematocrit 22.5 and platelet count of 182, sodium 154 cultures and 2.1, BUN/creatinine of 104/3.15 and blood glucose of 240 --Chest x-ray reveals diffuse bilateral infiltrates possibly diffuse pneumonia versus interstitial edema or acute respiratory distress syndrome - Patient remains on IV heparin for possible PE; V/Q scan cannot be completed due to unstable respiratory status -- Patient has been placed on IV fluids in form of D5 water for hypernatremia; we will monitor sodium levels closely Prognosis remains guarded 03/14/2023 Patient is seen and evaluated in room at bedside; transferred to ICU; patient had been agitated and restless and noncompliant with BiPAP resulting in worsening respiratory status -- Patient has been placed on Precedex and remains on BiPAP with settings of 16/8 and 80% Vital signs are reviewed with temperature of 98.4, pulse 59, respirations 17 and blood pressure of 164/68 White count is 22.4, hemoglobin 7.4, hematocrit 24.5, with a normal platelet count. Sodium 157, potassium 2.8, chlorides 119, CO2 26, BUN 109, and creatinine 2.73. Chest x-ray continues to show bilateral airspace disease, which may be on the basis of fluid, pneumonia, or acute respiratory distress syndrome. The patient's currently on IV heparin empirically. The patient's also receiving Zosyn. Heparin can be discontinued once PE is ruled out 03/15. Patient seen and examined. Labs done this morning showed WBC 18.9, hemoglobin 7.2, platelet count 179, sodium 156, potassium 2.9, BUN 97, creatinine 2.86. Patient was intubated overnight, currently on mechanical ventilation. Currently on propofol. 03/16. Patient seen and examined. Patient continues to be intubated. Hemoglobin this morning is 6.8. Patient getting 1 unit of packed red blood cell. Blood sugars were elevated, currently on insulin drip 03/17/2023 Patient is currently intubated and on mechanical ventilator, assist control. Patient is also sedated with propofol. Chest x-ray today showed similar bilateral airspace disease with lower lung predominance. Patient had bronchoscopy done on 03/15/2023 showed no growth so far. Patient is being continued on Zosyn. Patient is on IV hydration. Patient is also on insulin drip for better blood sugar control. Laboratory data showed sodium 143 potassium 4.2 chloride 109 bicarb is 23 BUN 111 and creatinine 3.26 blood sugar 120, WBC 17.7 hemoglobin 7.5 and platelets 138. 03/18/2023 Patient remained on mechanical ventilator. Assist-control and PEEP increased to 12 with FiO2 50%. Chest x-ray showed stable lower lobe pulmonary infiltrates. ABG showed pH of 7.34, PCO2 41 and PO2 112. BAL cultures have been negative. Patient is being current Zosyn. Laboratory data showed WBC 16.8 hemoglobin 7.5 and platelets 112 BUN 119 and creatinine 3.5 bicarb is 20 blood sugar is 129. Calcium 7.2. IV fluids down to KVO. Pulmonary, nephrology is on board. Current Meds reviewed. REVIEW OF SYSTEMS: Cannot be obtained as patient is intubated PHYSICAL EXAMINATION: GENERAL: The patient is intubated HEENT: Pupils are round and equally reacting to light. EOMI. No scleral icterus. No conjunctival pallor. Normocephalic, atraumatic. No pharyngeal erythema. No thyromegaly. CARDIOVASCULAR: S1 and S2 present. No murmurs, rubs, or gallops. PULMONARY: Coarse Breath sounds bilaterally no wheeze ABDOMEN: Soft, nontender, nondistended, normoactive bowel sounds. No palpable organomegaly. MUSCULOSKELETAL: No joint swelling or deformity. EXTREMITIES: No cyanosis, clubbing, or pedal edema. NEUROLOGICAL: Gross neurological examination did not reveal any focal deficits. SKIN: No rashes. Assessment and plan Bacterial pneumonialikely HCAP Acute hypoxic respiratory failure due to Pneumonia vs Pulmonary edema and ARDS Elevated troponin normochromic, normocytic anemia chronic kidney disease stage III Diabetes mellitus Hypertension Hyperlipidemia History of osteoarthritis Hypothyroidism with very low TSH upper extremity tremor on mirapex restless leg syndrom Plan: Monitor vital signs Monitor CBC Continue vent management per ICU Strict I's and O's, daily weights DCed D5 W continue IV Zosyn Monitor blood sugar levels, continue insulin drip Anticoagulation on hold secondary to drop in hemoglobin Cardiology, nephrology is on board. Patient is critically ill. Labs and medication were reviewed.. Continue same treatment. Continue with symptomatic treatment. Resume home medication. Monitor labs and vitals. DVT and GI prophylaxis. Further recommendations as per clinical course of the patient Objective - Vital Signs Vital signs: Vital Signs Temp 98.3 F 03/18/23 16:00 Pulse 69 03/18/23 18:00 Resp 30 H 03/18/23 18:00 BP 138/71 03/18/23 18:00 Pulse Ox 92 L 03/18/23 18:00 FiO2 50 03/18/23 16:00 Intake & Output 03/17/23 03/18/23 03/18/23 18:59 06:59 18:59 Intake Total 2085.280 1825.372 948.557 Output Total 515 670 565 Balance 2551.393 6238.372 383.557 Weight 116.9 kg 114.5 kg Intake: IV 655 1055 265 Dextrose 5% in Water 1, 225 000 ml @ 75 mls/hr IV . [id number] FRANKO Rx#:[id number] NS TKO 230 130 90 Piperacillin-Tazobactam 3 200 100 100 .375 gm In Sodium Chloride 0.9% 100 ml @ 25 mls/hr IVPB Q8HR [facility]KO Rx# :[id number] Sodium Chloride 0.45% 1, 825 75 000 ml @ 75 mls/hr IV . [id number] FRANKO Rx#:[id number] Intake, IV Titration 967.280 404.372 407.557 Amount Insulin Regular 100 unit 82.195 26.909 28.878 In Sodium Chloride 0.9% 100 ml @ Titrate IV .Q0M FRANKO Rx#:[id number] Sodium Chloride 0.45% 1, 600 000 ml @ 75 mls/hr IV . [id number] FRANKO Rx#:[id number] propofoL 1,000 mg In 285.085 377.463 378.679 Empty Bag 1 bag @ 15 MCG/ KG/MIN 9.945 mls/hr IV . Q10H4M FRANKO Rx#:[id number] Tube Feeding 253 276 276 Other 210 90 Output: Urine 515 670 565 Other: Voiding Method Indwelling Catheter Indwelling Catheter Indwelling Catheter ABP, PAP, CO, CI - Last Documented Arterial Blood Pressure 151/44 - Labs CBC & Chem 7: 03/18/23 05:18 03/18/23 05:18 Labs: Abnormal Lab Results - Last 24 Hours (Table) 03/17/23 03/17/23 03/17/23 Range/Units 18:55 20:16 21:18 WBC (3.8-10.6) k/uL RBC (4.30-5.90) m/uL Hgb (13.0-17.5) gm/dL Hct (39.0-53.0) % RDW (11.5-15.5) % Plt Count (150-450) k/uL Neutrophils # (1.3-7.7) k/uL Lymphocytes # (1.0-4.8) k/uL ABG pH (7.35-7.45) ABG pO2 (83-108) mmHg ABG O2 Saturation (94-97) % Carbon Dioxide (22-30) mmol/L BUN (9-20) mg/dL Creatinine (0.66-1.25) mg/dL Glucose (74-99) mg/dL POC Glucose (mg/dL) 223 H 270 H 271 H (70-110) mg/dL Calcium (8.4-10.2) mg/dL AST (17-59) U/L Total Protein (6.3-8.2) g/dL Albumin (3.5-5.0) g/dL 03/17/23 03/17/23 03/17/23 Range/Units 21:50 22:10 23:21 WBC (3.8-10.6) k/uL RBC (4.30-5.90) m/uL Hgb (13.0-17.5) gm/dL Hct (39.0-53.0) % RDW (11.5-15.5) % Plt Count (150-450) k/uL Neutrophils # (1.3-7.7) k/uL Lymphocytes # (1.0-4.8) k/uL ABG pH (7.35-7.45) ABG pO2 58 L* (83-108) mmHg ABG O2 Saturation 91.6 L (94-97) % Carbon Dioxide (22-30) mmol/L BUN (9-20) mg/dL Creatinine (0.66-1.25) mg/dL Glucose (74-99) mg/dL POC Glucose (mg/dL) 268 H 249 H (70-110) mg/dL Calcium (8.4-10.2) mg/dL AST (17-59) U/L Total Protein (6.3-8.2) g/dL Albumin (3.5-5.0) g/dL 03/18/23 03/18/23 03/18/23 Range/Units 00:13 01:09 01:55 WBC (3.8-10.6) k/uL RBC (4.30-5.90) m/uL Hgb (13.0-17.5) gm/dL Hct (39.0-53.0) % RDW (11.5-15.5) % Plt Count (150-450) k/uL Neutrophils # (1.3-7.7) k/uL Lymphocytes # (1.0-4.8) k/uL ABG pH (7.35-7.45) ABG pO2 (83-108) mmHg ABG O2 Saturation (94-97) % Carbon Dioxide (22-30) mmol/L BUN (9-20) mg/dL Creatinine (0.66-1.25) mg/dL Glucose (74-99) mg/dL POC Glucose (mg/dL) 236 H 221 H 193 H (70-110) mg/dL Calcium (8.4-10.2) mg/dL AST (17-59) U/L Total Protein (6.3-8.2) g/dL Albumin (3.5-5.0) g/dL 03/18/23 03/18/23 03/18/23 Range/Units 02:59 04:01 05:12 WBC (3.8-10.6) k/uL RBC (4.30-5.90) m/uL Hgb (13.0-17.5) gm/dL Hct (39.0-53.0) % RDW (11.5-15.5) % Plt Count (150-450) k/uL Neutrophils # (1.3-7.7) k/uL Lymphocytes # (1.0-4.8) k/uL ABG pH (7.35-7.45) ABG pO2 (83-108) mmHg ABG O2 Saturation (94-97) % Carbon Dioxide (22-30) mmol/L BUN (9-20) mg/dL Creatinine (0.66-1.25) mg/dL Glucose (74-99) mg/dL POC Glucose (mg/dL) 179 H 170 H 150 H (70-110) mg/dL Calcium (8.4-10.2) mg/dL AST (17-59) U/L Total Protein (6.3-8.2) g/dL Albumin (3.5-5.0) g/dL 03/18/23 03/18/23 03/18/23 Range/Units 05:18 05:18 06:02 WBC 16.8 H (3.8-10.6) k/uL RBC 2.29 L (4.30-5.90) m/uL Hgb 7.5 L (13.0-17.5) gm/dL Hct 21.3 L (39.0-53.0) % RDW 17.2 H (11.5-15.5) % Plt Count 112 L (150-450) k/uL Neutrophils # 15.6 H (1.3-7.7) k/uL Lymphocytes # 0.6 L (1.0-4.8) k/uL ABG pH 7.34 L (7.35-7.45) ABG pO2 112 H (83-108) mmHg ABG O2 Saturation 98.2 H (94-97) % Carbon Dioxide 20 L (22-30) mmol/L BUN 119 H* (9-20) mg/dL Creatinine 3.50 H (0.66-1.25) mg/dL Glucose 129 H (74-99) mg/dL POC Glucose (mg/dL) (70-110) mg/dL Calcium 7.2 L (8.4-10.2) mg/dL AST 15 L (17-59) U/L Total Protein 4.5 L (6.3-8.2) g/dL Albumin 2.2 L (3.5-5.0) g/dL 03/18/23 03/18/23 03/18/23 Range/Units 06:14 07:14 07:59 WBC (3.8-10.6) k/uL RBC (4.30-5.90) m/uL Hgb (13.0-17.5) gm/dL Hct (39.0-53.0) % RDW (11.5-15.5) % Plt Count (150-450) k/uL Neutrophils # (1.3-7.7) k/uL Lymphocytes # (1.0-4.8) k/uL ABG pH (7.35-7.45) ABG pO2 (83-108) mmHg ABG O2 Saturation (94-97) % Carbon Dioxide (22-30) mmol/L BUN (9-20) mg/dL Creatinine (0.66-1.25) mg/dL Glucose (74-99) mg/dL POC Glucose (mg/dL) 141 H 130 H 151 H (70-110) mg/dL Calcium (8.4-10.2) mg/dL AST (17-59) U/L Total Protein (6.3-8.2) g/dL Albumin (3.5-5.0) g/dL 03/18/23 03/18/23 Range/Units 11:58 17:22 WBC (3.8-10.6) k/uL RBC (4.30-5.90) m/uL Hgb (13.0-17.5) gm/dL Hct (39.0-53.0) % RDW (11.5-15.5) % Plt Count (150-450) k/uL Neutrophils # (1.3-7.7) k/uL Lymphocytes # (1.0-4.8) k/uL ABG pH (7.35-7.45) ABG pO2 (83-108) mmHg ABG O2 Saturation (94-97) % Carbon Dioxide (22-30) mmol/L BUN (9-20) mg/dL Creatinine (0.66-1.25) mg/dL Glucose (74-99) mg/dL POC Glucose (mg/dL) 245 H 269 H (70-110) mg/dL Calcium (8.4-10.2) mg/dL AST (17-59) U/L Total Protein (6.3-8.2) g/dL Albumin (3.5-5.0) g/dL Microbiology - Last 24 Hours (Table) 03/16/23 04:05 Blood Culture - Preliminary Blood
[2023-03-19] MEDS: INSULIN DETEMIR (LEVEMIR) 100 UNIT/ML SYR SQ SCH ×2 (00:05→20:03)
[2023-03-19] MEDS: LORazepam 2 MG/ML INJ IV PRN ×3 (00:29→23:28)
[2023-03-19] MEDS: HYDROmorphone 1 MG/ML 1 ML SYRINGE IVP PRN ×6 (01:39→21:12)
[2023-03-19] MEDS: IPRATROPIUM-ALBUTEROL 3 ML NEB INHALATION SCH ×6 (03:02→23:15)
[2023-03-19 04:06] LABS: Glucose,Whole Blood 277 mg/dL (70-110)
[2023-03-19 05:08] LABS: ABG Base Excess -5.3 mmol/L; ABG HCO3 22 mmol/L (21-25); ABG Oxygen Saturation 97.2 % (94-97); ABG PCO2 51 mmHg (35-45); ABG PH 7.25 (7.35-7.45); ABG PO2 104 mmHg (83-108); ABG TCO2 24 mmol/L (19-24)
[2023-03-19 05:10] LABS: Allen Test Performed? no
[2023-03-19] MEDS: INSULIN ASPART (NovoLOG) 100 UNIT/ML VIAL SQ SCH ×4 (06:06→23:49)
[2023-03-19 06:07] LABS: Glucose,Whole Blood 280 mg/dL (70-110)
[2023-03-19 06:30] LABS: African American GFR (CKD) 19 (>60 ml/min/1.73 sqM); Anion Gap 12 mmol/L; Calcium 7.1 mg/dL (8.4-10.2); Carbon Dioxide 22 mmol/L (22-30); Chloride 106 mmol/L (98-107); Glucose 248 mg/dL (74-99); Non-African American GFR(CKD) 16 (>60 ml/min/1.73 sqM); Potassium 4.5 mmol/L (3.5-5.1); Sodium 140 mmol/L (137-145)
[2023-03-19 06:52] LABS: Anisocytosis Slight; HCT 21.9 % (39.0-53.0); Hypochromasia Moderate; MCH 29.7 pg (25.0-35.0); MCHC 31.7 g/dL (31.0-37.0); MCV 93.7 fL (80.0-100.0); Mean Platelet Volume 16.4; Platelet Count 101 k/uL (150-450); RBC 2.33 m/uL (4.30-5.90); RDW 17.3 % (11.5-15.5); WBC 18.1 k/uL (3.8-10.6)
[2023-03-19 06:55] LABS: HGB 6.9 gm/dL (13.0-17.5)
[2023-03-19 06:56] LABS: Blood Urea Nitrogen 130 mg/dL (9-20)
--- NOTE | 2023-03-19 07:04 | P.PN ---
Subjective Progress Note Date: 03/19/23 Principal diagnosis: Paroxysmal atrial fibrillation This is a 77-year-old gentleman with coronary artery disease and congestive heart failure as well as chronic kidney disease and multiple comorbid conditions was admitted to the hospital with change in mental status and he was diagnosed with pneumonia. We consulted to see the patient because of bradycardia and also because of atrial fibrillation. Last night the patient went into respiratory failure and he was intubated. 03/15/2023 The patient was seen and evaluated this morning. He is currently intubated and he is on mechanical ventilation. Hemodynamically he is a stable as a matter of fact he is hypertensive. He is bradycardic with heart rate in the 40s and he is in sinus bradycardia. At the same time work from this morning showed hypokalemia and he continues to be in renal failure with creatinine of 2.8. He is on heparin IV for oral anticoagulation with a chest x-ray showed bilateral infiltrate definitely concerning for pneumonia. March 162022 The patient was seen and evaluated this morning. He continues to be intubated on mechanical ventilation. Hemodynamically he is a stable beside bradycardia with heart rate in the 50s. His hemoglobin drop to below 7 and currently is in process of receiving blood. For that reason heparin was stopped. He is on Lasix per nephrology service. Creatinine is 3 this morning. Examination is remarkable for regular rhythm with diminished breathing sounds b ilaterally and bilateral lower extremity 03/17/2023 The patient was seen and evaluated this morning. He continues to be intubated and on mechanical ventilation. Hemodynamically he is stable and currently he is not on any vasopressors. As a matter of fact the bradycardia has improved. He is bradycardic only intermittently. He is not on any AV ayan blockers at this point. Hemoglobin has been stable at 7.1 this morning. He receives 1 unit of packed RBC yesterday. He is not bleeding. He is not on any anticoagulation at this point which I would agree on to rule out any gastrointestinal bleeding etiology. The kidney function is worse today. He was on Lasix and that has a systolic. Examination is remarkable for diminished breathing sounds bilaterally and mild bilateral lower extremity edema March 182022 The patient was seen and evaluated this morning. He continues to be sedated and intubated on mechanical ventilation. Hemodynamically he continues to be stable and not on any vasopressors. He has been maintaining normal sinus mechanism was sinus bradycardia. Currently he is not on any beta zurdo agents. Hemoglobin this morning is 7.5. Currently he is not on any oral anticoagulation. No issues with the bleeding. We would continue holding any anticoagulation at this point the hemoglobin is more stable and to rule out any gastrointestinal bleeding related issues. 03/19/2023 The patient was seen and evaluated this morning. He continues to be intubated and he is currently on mechanical ventilation. Nothing changed from that standpoint overview. Unfortunately the hemoglobin dropped again and today is 6.9. He is in process of receiving some blood. For that reason we should continue holding on any oral anticoagulation at this point. Kidney function r emains elevated. Nephrology service is on the case. He is maintaining normal sinus mechanism was sinus bradycardia. The examination is remarkable for bilateral lower extremities edema and bilateral upper extremities edema Assessment Change in mental status Pneumonia Paroxysmal atrial fibrillation. Currently the patient is in sinus rhythm Sinus bradycardia Severe electrolytes abnormalities Acute on chronic renal failure Multiple comorbid conditions Anemia Plan Continue the current medical regimen Avoid any AV ayan zurdo agents at this point Avoid oral anticoagulation to rule out gastrointestinal bleeding etiology Follow-up with the patient Continue monitor the hemoglobin Objective - Vital Signs Vital signs: Vital Signs Temp 98.4 F 03/19/23 04:00 Pulse 64 03/19/23 06:00 Resp 26 H 03/19/23 06:00 BP 125/53 03/19/23 06:00 Pulse Ox 96 03/19/23 06:00 FiO2 60 03/19/23 04:00 Intake & Output 03/18/23 03/19/23 03/19/23 18:59 06:59 18:59 Intake Total 8214.364 5234.241 Output Total 565 695 Balance 503.557 456.241 Weight 115.5 kg Intake: IV 385 360 NS TKO 210 260 Piperacillin-Tazobactam 3 100 100 .375 gm In Sodium Chloride 0.9% 100 ml @ 25 mls/hr IVPB Q8HR [facility] Rx# :[id number] Sodium Chloride 0.45% 1, 75 000 ml @ 75 mls/hr IV . [id number] [facility] Rx#:[id number] Intake, IV Titration 407.557 448.241 Amount Insulin Regular 100 unit 28.878 In Sodium Chloride 0.9% 100 ml @ Titrate IV .Q0M [facility] Rx#:[id number] propofoL 1,000 mg In 378.679 448.241 Empty Bag 1 bag @ 15 MCG/ KG/MIN 9.945 mls/hr IV . Q10H4M [facility] Rx#:[id number] Tube Feeding 276 253 Other 90 Output: Urine 565 695 Other: Voiding Method Indwelling Catheter Indwelling Catheter ABP, PAP, CO, CI - Last Documented Arterial Blood Pressure 139/44 - Labs CBC & Chem 7: 03/19/23 05:00 03/19/23 05:00 Labs: Abnormal Lab Results - Last 24 Hours (Table) 03/18/23 03/18/23 03/18/23 Range/Units 07:14 07:59 11:58 WBC (3.8-10.6) k/uL RBC (4.30-5.90) m/uL Hgb (13.0-17.5) gm/dL Hct (39.0-53.0) % RDW (11.5-15.5) % Plt Count (150-450) k/uL ABG pH (7.35-7.45) ABG pCO2 (35-45) mmHg ABG O2 Saturation (94-97) % BUN (9-20) mg/dL Creatinine (0.66-1.25) mg/dL Glucose (74-99) mg/dL POC Glucose (mg/dL) 130 H 151 H 245 H (70-110) mg/dL Calcium (8.4-10.2) mg/dL 03/18/23 03/18/23 03/18/23 Range/Units 17:22 20:39 22:06 WBC (3.8-10.6) k/uL RBC (4.30-5.90) m/uL Hgb (13.0-17.5) gm/dL Hct (39.0-53.0) % RDW (11.5-15.5) % Plt Count (150-450) k/uL ABG pH (7.35-7.45) ABG pCO2 (35-45) mmHg ABG O2 Saturation (94-97) % BUN (9-20) mg/dL Creatinine (0.66-1.25) mg/dL Glucose (74-99) mg/dL POC Glucose (mg/dL) 269 H 240 H 241 H (70-110) mg/dL Calcium (8.4-10.2) mg/dL 03/18/23 03/19/23 03/19/23 Range/Units 23:30 04:05 05:00 WBC 18.1 H (3.8-10.6) k/uL RBC 2.33 L (4.30-5.90) m/uL Hgb 6.9 L* (13.0-17.5) gm/dL Hct 21.9 L (39.0-53.0) % RDW 17.3 H (11.5-15.5) % Plt Count 101 L (150-450) k/uL ABG pH (7.35-7.45) ABG pCO2 (35-45) mmHg ABG O2 Saturation (94-97) % BUN (9-20) mg/dL Creatinine (0.66-1.25) mg/dL Glucose (74-99) mg/dL POC Glucose (mg/dL) 255 H 277 H (70-110) mg/dL Calcium (8.4-10.2) mg/dL 03/19/23 03/19/23 03/19/23 Range/Units 05:00 05:07 06:05 WBC (3.8-10.6) k/uL RBC (4.30-5.90) m/uL Hgb (13.0-17.5) gm/dL Hct (39.0-53.0) % RDW (11.5-15.5) % Plt Count (150-450) k/uL ABG pH 7.25 L (7.35-7.45) ABG pCO2 51 H (35-45) mmHg ABG O2 Saturation 97.2 H (94-97) % BUN 130 H* (9-20) mg/dL Creatinine 3.48 H (0.66-1.25) mg/dL Glucose 248 H (74-99) mg/dL POC Glucose (mg/dL) 280 H (70-110) mg/dL Calcium 7.1 L (8.4-10.2) mg/dL Microbiology - Last 24 Hours (Table) 03/16/23 04:05 Blood Culture - Preliminary Blood
--- NOTE | 2023-03-19 07:45 | XR ---
EXAMINATION TYPE: XR chest 1V portable DATE OF EXAM: 03/19/2023 COMPARISON: 03/18/2023 HISTORY: SOB, Follow Up FINDINGS: Indwelling tubes and catheters are unchanged. Scattered airspace infiltrates throughout both lung jackson greatest at the lung bases persists unchan ged. Stable appearance of the cardio-mediastinal structures at this time. Pleural effusion unchanged. IMPRESSION: 1. Scattered airspace infiltrates throughout both lung jackson greatest at the lung bases persists un changed.
[2023-03-19] MEDS: SODIUM CHLORIDE 0.9% 1,000 ML IV SCH (07:55)
[2023-03-19] MEDS: BUDESONIDE 1 MG/2 ML NEBU INHALATION SCH ×2 (07:55→19:27)
[2023-03-19] MEDS: FORMOTEROL FUMARATE 20 MCG/2 ML NEBU INHALATION SCH ×2 (07:56→19:27)
[2023-03-19] MEDS: PIPERACILLIN-TAZOBACTAM 3.375 GM in SODIUM CHLORIDE 0.9% 100 ML IVPB SCH ×2 (08:17→20:02)
[2023-03-19] MEDS: amLODIPine 2.5 MG TAB PO SCH (08:32)
[2023-03-19] MEDS: hydrALAZINE HCL 50 MG TAB PO SCH ×2 (08:32→16:42)
[2023-03-19] MEDS: FAMOTIDINE 20 MG/2 ML VIAL IV SCH (08:33)
[2023-03-19] MEDS: methylPREDNISolone SOD SUCCI 40 MG/ML 1 ML VIAL IV SCH ×2 (08:33→20:02)
[2023-03-19] MEDS: LEVOTHYROXINE IVP 100 MCG/5 ML VIAL IV SCH (08:33)
[2023-03-19] MEDS: CHLORHEXIDINE GLUCONATE 15 ML CUP MUCOUS MEM SCH ×2 (08:33→20:03)
[2023-03-19] MEDS: HYDROPHILIC CREAM 180 GM TUBE TOPICAL SCH (08:33)
--- NOTE | 2023-03-19 09:20 | P.PN ---
Subjective Progress Note Date: 03/19/23 On today's evaluation of 03/23/2023, I'm seeing the patient in the intensive care unit. At this point in time, the patient is intubated on a mechanical ventilator. Overnight, the patient became acutely hypoxic and more short of breath and he developed diffuse but the pulmonary infiltrates consistent with pneumonia and based on that the patient was intubated and placed on a mechanical ventilator. Note that this patient is 77 years of age. He has diabetes mellitus type 2, chronic kidney disease, hypothyroidism, COPD, hyperlipidemia and hypertension. He was also recently treated for cellulitis of lower extremity, discharged to [facility] for IV antibiotics through a PICC line in his right upper extremity and he received and completed the course of daptomycin. Discharged home to be readmitted for shortness of breath to our hospital on 03/08/2023. Note that the patient was being supported with BiPAP as various pressures. His proBNP level was elevated. His echocardiograms was recent showed a preserved LV function without any significant abnormalities. He was given bronchodilators. He was given IV Solu-Medrol. He was given IV Lasix. Another dose of Lasix was given to him by the nurse practitioner at 2:30 AM this morning. He has a Meneses catheter in place. Urine output is in order of 100 mL an hour. At this point in time, the patient remains on mechanical ventilator. He was quite a successful the mechanical ventilator and he was having frequent episodes of desaturation. He is on propofol running at 55 mcg/kg/m. I switched this patient's blood pressure control mode of mechanical ventilation and currently is on a pressure control of 12, rate of 26, PEEP of 12 with a FiO2 of 60%. His current pulse ox is 95%. He is on IV heparin and this was I believe initiated due to concerns of pulmonary embolism, on an empiric basis. The echoes at 18.9, hemoglobin is at 7.2, platelet count of 179, most recent blood gas showed a pH of 7.38 with a pCO2 of 43 and pO2 of 140. BUN is at 97 with a creatinine of 2.8, sodium level is at 156 and a potassium level is at 2.9. IV fluids are at KVO, 0.9. On today's evaluation of 03/16/2023, the patient is being seen for a follow-up. Remains intubated on mechanical ventilator. He was quite asynchronous with a mechanical ventilator yesterday. Based on that, I put the patient on pressure control mode of mechanical ventilation. This morning he is on a pressure control of 12, PEEP of 12, FiO2 of 50% with a rate of 26. He is on sedative medication the patient is currently on propofol running at 55 mcg/kg/m. He is quite sentences with a mechanical ventilator. A bronchoscopy was done and a bronchial lavage of the right middle lobe was done. The results are still pending for now. Meanwhile, a follow-up chest x-ray from today shows marked improvement and there is interval improvement of the diffuse bilateral pulmonary infiltrates along with some residual interstitial changes present. Nevertheless, the x-rays improved. In same time, Dr. patient is also improved and the patient has a pH of 7.3 with a pCO2 of 51 and pO2 of 207. The patient is afebrile. The patient is hemodynamically stable at this point and he is on no pressors. He remains on bronchodilators. He remains on steroids. He remains on a an empiric antibiotic coverage with IV Zosyn. Also, there is a drop in the hemoglobin down to 6.8 and the patient was given units of packed RBC. No signs of any bleeding. We have not witnessed any melanotic stools or hematemesis on this patient. He remains on enteral feeding for nutritional support and he is receiving vital high-protein at the rate of 23 mL an hour. The patient's sodium level is also improving. His free water deficit is being replaced. He is on D5 water running at 150 mL an hour. Sodium level is down to 148. The patient is also on insulin drip running at 34.8 units an hour. Most recent blood sugar is still elevated at 340. BUN is at 105, creatinine is at 3.0, serum bicarbs at 23, white cell count of 15.0. On today's evaluation of 03/17/2023, the patient remains intubated on a mechanical ventilator. He remains on propofol which is running at 55 mcg/kg/m. He remains on pressure control mode of mechanical ventilation with a pressure control 12, FiO2 at 40%, PEEP of 8 and the rate of 26. His chest x-ray still showing lower lobe bilateral palmar consolidation and infiltrates. Bronchoscopy and the bronchial lavage has yielded no microbial growth and the patient remains on IV Zosyn. No significant oral tracheal secretions. He is afebrile. He is hemodynamically stable. At the same time, the patient's free water deficit from corrected. Sodium level is down to 143. Continues to have chronic kidney disease with a creatinine of 3.26 and a BUN of 111. His blood sugars under better control the patient remains on IV insulin drip which is running at 7 units an hour. His current cardiac rhythm is sinus. No significant tachycardia. He is receiving enteral feeding for nutritional support and the patient is currently on vital high-protein at the rate of 20 mL an hour. Fluid balance is impossible the patient was receiving D5 water to supplement is free w ater deficit. Echocardiogram was showing moderate degree of pulmonary hypertension, preserved LV function,. 03/18/2023, the patient remains intubated on mechanical ventilator. Oxygenation remains borderline. Overnight, the patient desaturated and the pO2 was down to 58 based on the follow-up blood gas. Based on that, I increase the PEEP up to 12 and A similar FiO2 of 50%. He currently is on a pressure control mode at the rate of 26 and a pressure control of 12 cm of water. His current pulse ox is 97%. Chest x-ray still showing stable lower lobe pulmonary infiltrates/consolidations. Blood gas shows a pH of 7.34 with a pCO2 of 41 and pO2 of 112. As mentioned earlier, the exact nature of his pulmonary infiltrates are not clear. The patient had a bronchoscopy and bronchial lavage and the cultures are negative. The patient remains on IV Zosyn. Echocardiogram showed preserved LV function. Previous attempts to diurese this patient has failed and the patient became hypernatremic. The water deficit has been corrected and the patient's sodium level is down to 139. Echocardiogram showed a preserved LV function with an EF of around 60-65%. He does have severe pulmonary hyperte nsion with a PA pressure of 56. Rest of the valvular structures are all within normal limits. At the same time, the patient's echoes at 16.8, hemoglobin was at 7.5, platelet count is being gradually downtrending 212. BUN is 119 with a creatinine of 3.5. The patient suffers from chronic kidney disease and there is an acute kidney injury on top of his chronic kidney failure. Sodium is at 1 39, potassium is at 4. Repeat pro-calcitonin shows downtrending from 2.8 down to 1.05. No active cellulitis in lower extremities. Ultrasound abdomen showed some biliary sludge and the common bile duct was measuring around 1.2 cm. Kidneys were not adequately visualized. Overall fluid balance over the past 24 hours is +2.7 L. The patient is still receiving enteral feeding for nutritional support and the patient is currently on vital high-protein at the rate of 23 mL an hour. His IV fluids are currently at 0.9 at the rate of 75 mL an hour. On today's evaluation of 03/19/2023, overall condition is the same. The patient continues to be hypoxic. CAT scan of the chest was noted from yesterday and the patient diffuse bilateral pulmonary infiltrates and consolidation of the lung bases bilaterally. Bronchoscopy was done and the bronchial lavage was negative for metastases overdose. The patient continues to be on IV Zosyn. ARDS was consulted and the patient was started on steroids. On today's evaluation, the patient remains sedated with propofol which is running at 55 mcg/kg/m. He remains on a pressure control mode of mechanical ventilation, essentially on the same setting with a pressure control of 12, rate of 26, PEEP of 12 and FiO2 of 60%. The blood. From today shows a pH of 7.25 with a pCO2 of 51 and pO2 of 104. Chest x-ray findings of essentially unchanged and the patient continues to have dense lower lobe pulmonary infiltrates. Echocardiogram showed a preserved LV function with severe pulmonary hypertension. The patient remains in renal dysfunction. The patient has sustained an acute kidney injury on top of chronic renal failure. The BUN is at 1:30 with a creatinine of 3.4. Sodium is at 140 with a potassium level of 4.5. Serum bicarbs of 22. Urine output is in order of 30 mL an hour. Overall fluid balance is positive and the patient has been in a possible showed bibasilar the past 3 days and his weight is up 215 kg. There is also a concern of an upper GI bleed. The patient is having some coffee- ground gastric WAS. Hemoglobin is up to 6.9 and the patient is going to the CV unit packed RBC. He is afebrile. He remains on IV Zosyn. No active cellulitis of the lower extremities. Family has been updated on his condition. Note that his white cell count of 18.1 with a hemoglobin of 6.9 and a platelet count of 101. He remains on IV Protonix. He is normotensive. No significant hemodynamic changes. Remains on Levemir insulin 15 units and a sliding scale coverage. Objective - Vital Signs Vital signs: Vital Signs Temp 98.4 F 03/19/23 04:00 Pulse 69 03/19/23 08:14 Resp 29 H 03/19/23 08:14 BP 126/51 03/19/23 07:00 Pulse Ox 96 03/19/23 07:00 FiO2 60 03/19/23 08:06 Intake & Output 03/18/23 03/19/23 03/19/23 18:59 06:59 18:59 Intake Total 2660.057 0315.241 66.245 Output Total 565 695 Balance 503.557 456.241 66.245 Weight 115.5 kg Intake: IV 385 360 NS TKO 210 260 Piperacillin-Tazobactam 3 100 100 .375 gm In Sodium Chloride 0.9% 100 ml @ 25 mls/hr IVPB Q8HR FRANKO Rx# :[id number] Sodium Chloride 0.45% 1, 75 000 ml @ 75 mls/hr IV . [id number] FRANKO Rx#:[id number] Intake, IV Titration 407.557 448.241 66.245 Amount Insulin Regular 100 unit 28.878 In Sodium Chloride 0.9% 100 ml @ Titrate IV .Q0M FRANKO Rx#:[id number] propofoL 1,000 mg In 378.679 448.241 66.245 Empty Bag 1 bag @ 15 MCG/ KG/MIN 9.945 mls/hr IV . Q10H4M FRANKO Rx#:[id number] Tube Feeding 276 253 Other 90 Output: Urine 565 695 Other: Voiding Method Indwelling Catheter Indwelling Catheter ABP, PAP, CO, CI - Last Documented Arterial Blood Pressure 139/44 - Exam Patient is currently intubated on a mechanical ventilator. Orogastric and regina tracheal tube are both in place. The patient is sedated with propofol. The patient is, comfortable and successful mechanical ventilator Head exam was generally normal. There was no scleral icterus or corneal arcus. Mucous membranes were moist. Neck was supple and without jugular venous distension, thyromegaly, or carotid bruits. Carotids were easily palpable bilaterally. There was no adenopathy. Orogastric and orotracheal tube are both in place Cardiovascular examination reveals regular rhythm rate. S1-S2 normal. No S3 or S4. No discernible murmur noted. Lungs reveal scattered rhonchi and crackles. Breath sounds equal. Breath sounds are equal bilaterally. No distinct wheezes noted. Abdomen soft bowel sounds are heard. No masses or tenderness. Extremities are intact. No cyanosis clubbing or edema. Skin is without rash or lesion. Neurologic examination is brief but nonfocal. - Labs CBC & Chem 7: 03/19/23 05:00 03/19/23 05:00 Labs: Abnormal Lab Results - Last 24 Hours (Table) 03/18/23 03/18/23 03/18/23 Range/Units 11:58 17:22 20:39 WBC (3.8-10.6) k/uL RBC (4.30-5.90) m/uL Hgb (13.0-17.5) gm/dL Hct (39.0-53.0) % RDW (11.5-15.5) % Plt Count (150-450) k/uL ABG pH (7.35-7.45) ABG pCO2 (35-45) mmHg ABG O2 Saturation (94-97) % BUN (9-20) mg/dL Creatinine (0.66-1.25) mg/dL Glucose (74-99) mg/dL POC Glucose (mg/dL) 245 H 269 H 240 H (70-110) mg/dL Calcium (8.4-10.2) mg/dL 03/18/23 03/18/23 03/19/23 Range/Units 22:06 23:30 04:05 WBC (3.8-10.6) k/uL RBC (4.30-5.90) m/uL Hgb (13.0-17.5) gm/dL Hct (39.0-53.0) % RDW (11.5-15.5) % Plt Count (150-450) k/uL ABG pH (7.35-7.45) ABG pCO2 (35-45) mmHg ABG O2 Saturation (94-97) % BUN (9-20) mg/dL Creatinine (0.66-1.25) mg/dL Glucose (74-99) mg/dL POC Glucose (mg/dL) 241 H 255 H 277 H (70-110) mg/dL Calcium (8.4-10.2) mg/dL 03/19/23 03/19/23 03/19/23 Range/Units 05:00 05:00 05:07 WBC 18.1 H (3.8-10.6) k/uL RBC 2.33 L (4.30-5.90) m/uL Hgb 6.9 L* (13.0-17.5) gm/dL Hct 21.9 L (39.0-53.0) % RDW 17.3 H (11.5-15.5) % Plt Count 101 L (150-450) k/uL ABG pH 7.25 L (7.35-7.45) ABG pCO2 51 H (35-45) mmHg ABG O2 Saturation 97.2 H (94-97) % BUN 130 H* (9-20) mg/dL Creatinine 3.48 H (0.66-1.25) mg/dL Glucose 248 H (74-99) mg/dL POC Glucose (mg/dL) (70-110) mg/dL Calcium 7.1 L (8.4-10.2) mg/dL 03/19/23 Range/Units 06:05 WBC (3.8-10.6) k/uL RBC (4.30-5.90) m/uL Hgb (13.0-17.5) gm/dL Hct (39.0-53.0) % RDW (11.5-15.5) % Plt Count (150-450) k/uL ABG pH (7.35-7.45) ABG pCO2 (35-45) mmHg ABG O2 Saturation (94-97) % BUN (9-20) mg/dL Creatinine (0.66-1.25) mg/dL Glucose (74-99) mg/dL POC Glucose (mg/dL) 280 H (70-110) mg/dL Calcium (8.4-10.2) mg/dL Microbiology - Last 24 Hours (Table) 03/16/23 04:05 Blood Culture - Preliminary Blood Assessment and Plan Plan: Acute hypoxemic respiratory failure, secondary to possible healthcare associated pneumonia, versus acute pulmonary edema, versus acute respiratory distress syndrome. Patient has developed diffuse bilateral pulmonary infiltrates. This could be cardiogenic versus noncardiac pulmonary edema. Patient failed BiPAP therapy and the patient is currently intubated on a mechanical ventilator. The patient is post bronchoscopy and the bronchial lavage regarding the bilateral pulmonary infiltrates. The cultures are negative and the patient remains on IV Zosyn. He remains on pressure control mode of mechanical ventilation. Not ready for further weaning. Oxygen patient is still borderline on 12 of PEEP and FiO2 of 50%. LV function is preserved with a recent echocardiogram and he has severe pulmonary hypertension. Chest x-ray from 03/18/2023 shows stable lower lobe consolidation. CAT scan of the chest was noted and the patient has dense consolidations and diffuse but the pulmonary infiltrates. Exact nature of this point infiltrates are not clear to me. Bronchoscopy and the bronchial lavage was negative. Could be related to ARDS. Interstitial edema/volume overload cannot be ruled out. Noted the patient has significant pulmonary hypertension and right-sided heart failure. LV function is stable. Acute on chronic kidney disease, urine output is in order of 30 mL an hour. Creatinine is stable at 3.4 Acute hypernatremia and his sodium level is currently at 140 Acute leukocytosis my improving and the white cell count of 18 Bilateral lower extremity edema, and cellulitis, treated and recovered, the patient continues to have some residual edema lower extremities Elevated troponins, rule out non-ST segment elevation myocardial infarction. Anemia of chronic disease. There is a interval drop in hemoglobin down to 6.9, consider possibility of an upper GI bleed Stage III chronic kidney disease. Type 2 diabetes mellitus. The patient is currently on Levemir insulin at 15 units Benign essential hypertension. Dyslipidemia. Hypothyroidism. Benign prostatic hypertrophy. Obesity Sinus bradycardia Plan Keep the same ventilator setting Obtain a CAT scan of the brain, negative obtain a CAT scan of the chest noncontrast, performed on 03/18/2023 consistent with diffuse pulmonary infiltrates and consolidations Chest x-ray is still showing bilateral lower lobe consolidations, unchanged Continue IV Zosyn IV fluids to KVO We'll give another child with diuretics. We'll start the patient 60 mg of IV Lasix every 8 hours in combination with Zaroxolyn 2.5 mg twice a day Monitor urine output Monitor chest x-ray findings and oxygenation I'm not absolutely convinced that this is an infectious process. Could be noncardiogenic pulmonary edema/ARDS versus fluid overload Repeat pro-calcitonin level is showing improvement No need for pressors at this point in time Watch for the hemoglobin and transfuse with 2 units of packed RBC Keep the tube feeds on hold for the next 24 hours Echocardiogram was ordered for today and will completed and the findings of essentially showing a preserved LV function with severe pulmonary hypertension with a EF around 65% and the pulmonary artery pressure of around 56 mmHg, no significant valvular abnormalities Monitor the white cell count Monitor renal function, stable Monitor urine output Condition is critically ill continue to follow and make further recommendations based on his progress. There is a critical care evaluation that was done in more than 30 minutes. Not ready for further weaning at this point in time. We'll continue to follow. I had a lengthy discussion with the family including the daughter and the and the family has been updated.
--- NOTE | 2023-03-19 09:56 | P.PN ---
Subjective Progress Note Date: 03/19/23 Principal diagnosis: Sepsis/pneumonia Patient is a 77-year-old male with a past medical his significant for diabetes mellitus hypertension hyperlipidemia prostate disorder presenting to the hospital on 03/07/2023 for evaluation of increasing shortness of breath weakness and mental status changes, subsequently did have worsening of his respiratory status requiring transfer the ICU ended up getting intubated, the patient is status post bronchoscopy completed on 03/15/2023 On today's evaluation that is 03/19/2023, the patient did have a low-grade fever 100.2 around midnight the patient is afebrile and, the patient is hemodynamically stable and the patient FiO2 is slightly up to 60% today, no significant purulent secretions through the ET or diarrhea reported by the nursing staff Patient white count is slightly slightly up to 18.1, creatinine is 3.48 Objective - Vital Signs Vital signs: Vital Signs Temp 98.4 F 03/19/23 04:00 Pulse 69 03/19/23 08:14 Resp 29 H 03/19/23 08:14 BP 126/51 03/19/23 07:00 Pulse Ox 96 03/19/23 07:00 FiO2 60 03/19/23 08:06 Intake & Output 03/18/23 03/19/23 03/19/23 18:59 06:59 18:59 Intake Total 1209.166 5810.241 66.245 Output Total 565 695 Balance 503.557 456.241 66.245 Weight 115.5 kg Intake: IV 385 360 NS TKO 210 260 Piperacillin-Tazobactam 3 100 100 .375 gm In Sodium Chloride 0.9% 100 ml @ 25 mls/hr IVPB Q8HR [facility] Rx# :[id number] Sodium Chloride 0.45% 1, 75 000 ml @ 75 mls/hr IV . [id number] [facility]KO Rx#:[id number] Intake, IV Titration 407.557 448.241 66.245 Amount Insulin Regular 100 unit 28.878 In Sodium Chloride 0.9% 100 ml @ Titrate IV .Q0M [facility]KO Rx#:[id number] propofoL 1,000 mg In 378.679 448.241 66.245 Empty Bag 1 bag @ 15 MCG/ KG/MIN 9.945 mls/hr IV . Q10H4M [facility]ANKO Rx#:[id number] Tube Feeding 276 253 Other 90 Output: Urine 565 695 Other: Voiding Method Indwelling Catheter Indwelling Catheter ABP, PAP, CO, CI - Last Documented Arterial Blood Pressure 139/44 - Exam GENERAL DESCRIPTION: An elderly male intubated on the vent in no distress RESPIRATORY SYSTEM: Unlabored breathing , decreased breath sounds at bases HEART: S1 S2 regular rate and rhythm , ABDOMEN: Soft , no tenderness EXTREMITIES: No edema feet - Labs CBC & Chem 7: 03/19/23 05:00 03/19/23 05:00 Labs: Abnormal Lab Results - Last 24 Hours (Table) 03/16/23 03/18/23 03/18/23 Range/Units 05:17 11:58 17:22 WBC (3.8-10.6) k/uL RBC (4.30-5.90) m/uL Hgb (13.0-17.5) gm/dL Hct (39.0-53.0) % RDW (11.5-15.5) % Plt Count (150-450) k/uL ABG pH (7.35-7.45) ABG pCO2 (35-45) mmHg ABG O2 Saturation (94-97) % BUN (9-20) mg/dL Creatinine (0.66-1.25) mg/dL Glucose (74-99) mg/dL POC Glucose (mg/dL) 245 H 269 H (70-110) mg/dL Calcium (8.4-10.2) mg/dL Crossmatch See Detail 03/18/23 03/18/23 03/18/23 Range/Units 20:39 22:06 23:30 WBC (3.8-10.6) k/uL RBC (4.30-5.90) m/uL Hgb (13.0-17.5) gm/dL Hct (39.0-53.0) % RDW (11.5-15.5) % Plt Count (150-450) k/uL ABG pH (7.35-7.45) ABG pCO2 (35-45) mmHg ABG O2 Saturation (94-97) % BUN (9-20) mg/dL Creatinine (0.66-1.25) mg/dL Glucose (74-99) mg/dL POC Glucose (mg/dL) 240 H 241 H 255 H (70-110) mg/dL Calcium (8.4-10.2) mg/dL Crossmatch 03/19/23 03/19/23 03/19/23 Range/Units 04:05 05:00 05:00 WBC 18.1 H (3.8-10.6) k/uL RBC 2.33 L (4.30-5.90) m/uL Hgb 6.9 L* (13.0-17.5) gm/dL Hct 21.9 L (39.0-53.0) % RDW 17.3 H (11.5-15.5) % Plt Count 101 L (150-450) k/uL ABG pH (7.35-7.45) ABG pCO2 (35-45) mmHg ABG O2 Saturation (94-97) % BUN 130 H* (9-20) mg/dL Creatinine 3.48 H (0.66-1.25) mg/dL Glucose 248 H (74-99) mg/dL POC Glucose (mg/dL) 277 H (70-110) mg/dL Calcium 7.1 L (8.4-10.2) mg/dL Crossmatch 03/19/23 03/19/23 Range/Units 05:07 06:05 WBC (3.8-10.6) k/uL RBC (4.30-5.90) m/uL Hgb (13.0-17.5) gm/dL Hct (39.0-53.0) % RDW (11.5-15.5) % Plt Count (150-450) k/uL ABG pH 7.25 L (7.35-7.45) ABG pCO2 51 H (35-45) mmHg ABG O2 Saturation 97.2 H (94-97) % BUN (9-20) mg/dL Creatinine (0.66-1.25) mg/dL Glucose (74-99) mg/dL POC Glucose (mg/dL) 280 H (70-110) mg/dL Calcium (8.4-10.2) mg/dL Crossmatch Microbiology - Last 24 Hours (Table) 03/16/23 04:05 Blood Culture - Preliminary Blood Assessment and Plan (1) Pneumonia Current Visit: No Status: Acute Code(s): J18.9 - PNEUMONIA, UNSPECIFIED ORGANISM SNOMED Code(s): 903689472 Plan: 1patient with acute respiratory failure which is multifactorial in this patient has been in the hospital for almost 8 to 9 days with initial presentation of sep sis possible pneumonia however no cultures were done during this hospital stay patient did not get intubated because of worsening respiratory status and culture has been obtained and possible plan for bronchoscopy on 03/15/2023, we will need to cover for the gram-negative to be the likely pathogen 2-BAL cultures are currently pending, patient did have a procalcitonin 2.84 3-patient is afebrile, white count is slightly up today questionably steroid effect and will be monitored closely 4- patient to continue with Zosyn 3.375 g every 8 hours and continue supportive care Dictation was produced using [employer] dictation software. please excuse any grammatical, word or spelling errors. Time with Patient: Less than 30
[2023-03-19] MEDS: FUROSEMIDE 10 MG/ML 10 ML VIAL IV SCH ×3 (10:02→23:47)
[2023-03-19] MEDS: metOLazone 2.5 MG TAB PO SCH (10:08)
--- NOTE | 2023-03-19 11:23 | P.PN ---
Subjective Patient is seen in follow-up for acute kidney injury on chronic kidney disease. Urine output 30-40 mL an hour. Intubated. IV Lasix started this morning. Tube feeds held due to high residual. Vital signs are stable. General: Resting in bed. HEENT: Intubated. LUNGS: Scattered rhonchi. HEART: Rate and Rhythm are regular. ABDOMEN: No distention. EXTREMITITES: 1+ edema. Objective - Vital Signs Vital signs: Vital Signs Temp 97.0 F L 03/19/23 11:01 Pulse 61 03/19/23 11:01 Resp 26 H 03/19/23 11:01 BP 122/54 03/19/23 11:01 Pulse Ox 97 03/19/23 11:00 FiO2 60 03/19/23 08:06 Intake & Output 03/18/23 03/19/23 03/19/23 18:59 06:59 18:59 Intake Total 5670.304 0929.241 358.245 Output Total 565 695 310 Balance 503.557 456.241 48.245 Weight 115.5 kg Intake: IV 385 360 192 NS TKO 210 260 80 Piperacillin-Tazobactam 3 100 100 100 .375 gm In Sodium Chloride 0.9% 100 ml @ 25 mls/hr IVPB Q8HR [facility] Rx# :[id number] Pressure bag 12 Sodium Chloride 0.45% 1, 75 000 ml @ 75 mls/hr IV . [id number] [facility] Rx#:[id number] Intake, IV Titration 407.557 448.241 166.245 Amount Insulin Regular 100 unit 28.878 In Sodium Chloride 0.9% 100 ml @ Titrate IV .Q0M [facility] Rx#:[id number] propofoL 1,000 mg In 378.679 448.241 166.245 Empty Bag 1 bag @ 15 MCG/ KG/MIN 9.945 mls/hr IV . Q10H4M [facility] Rx#:[id number] Tube Feeding 276 253 Blood Product 0 Rc As-1 Unit 0 [id number] Other 90 Output: Gastric Drainage 200 Urine 565 695 110 Other: Voiding Method Indwelling Catheter Indwelling Catheter Indwelling Catheter ABP, PAP, CO, CI - Last Documented Arterial Blood Pressure 142/42 - Labs CBC & Chem 7: 03/19/23 05:00 03/19/23 05:00 Labs: Abnormal Lab Results - Last 24 Hours (Table) 03/16/23 03/18/23 03/18/23 Range/Units 05:17 11:58 17:22 WBC (3.8-10.6) k/uL RBC (4.30-5.90) m/uL Hgb (13.0-17.5) gm/dL Hct (39.0-53.0) % RDW (11.5-15.5) % Plt Count (150-450) k/uL ABG pH (7.35-7.45) ABG pCO2 (35-45) mmHg ABG O2 Saturation (94-97) % BUN (9-20) mg/dL Creatinine (0.66-1.25) mg/dL Glucose (74-99) mg/dL POC Glucose (mg/dL) 245 H 269 H (70-110) mg/dL Calcium (8.4-10.2) mg/dL Crossmatch See Detail 03/18/23 03/18/23 03/18/23 Range/Units 20:39 22:06 23:30 WBC (3.8-10.6) k/uL RBC (4.30-5.90) m/uL Hgb (13.0-17.5) gm/dL Hct (39.0-53.0) % RDW (11.5-15.5) % Plt Count (150-450) k/uL ABG pH (7.35-7.45) ABG pCO2 (35-45) mmHg ABG O2 Saturation (94-97) % BUN (9-20) mg/dL Creatinine (0.66-1.25) mg/dL Glucose (74-99) mg/dL POC Glucose (mg/dL) 240 H 241 H 255 H (70-110) mg/dL Calcium (8.4-10.2) mg/dL Crossmatch 03/19/23 03/19/23 03/19/23 Range/Units 04:05 05:00 05:00 WBC 18.1 H (3.8-10.6) k/uL RBC 2.33 L (4.30-5.90) m/uL Hgb 6.9 L* (13.0-17.5) gm/dL Hct 21.9 L (39.0-53.0) % RDW 17.3 H (11.5-15.5) % Plt Count 101 L (150-450) k/uL ABG pH (7.35-7.45) ABG pCO2 (35-45) mmHg ABG O2 Saturation (94-97) % BUN 130 H* (9-20) mg/dL Creatinine 3.48 H (0.66-1.25) mg/dL Glucose 248 H (74-99) mg/dL POC Glucose (mg/dL) 277 H (70-110) mg/dL Calcium 7.1 L (8.4-10.2) mg/dL Crossmatch 03/19/23 03/19/23 Range/Units 05:07 06:05 WBC (3.8-10.6) k/uL RBC (4.30-5.90) m/uL Hgb (13.0-17.5) gm/dL Hct (39.0-53.0) % RDW (11.5-15.5) % Plt Count (150-450) k/uL ABG pH 7.25 L (7.35-7.45) ABG pCO2 51 H (35-45) mmHg ABG O2 Saturation 97.2 H (94-97) % BUN (9-20) mg/dL Creatinine (0.66-1.25) mg/dL Glucose (74-99) mg/dL POC Glucose (mg/dL) 280 H (70-110) mg/dL Calcium (8.4-10.2) mg/dL Crossmatch Microbiology - Last 24 Hours (Table) 03/16/23 04:05 Blood Culture - Preliminary Blood Assessment and Plan Plan: Assessment: 1. Acute kidney injury secondary to ATN secondary to hemodynamic instability and infection. Creatinine stable at 3.48 today. Urine output 30-40 mL an hour. No hydronephrosis noted on kidney ultrasound. Right kidney wasn't properly visualized. Left kidney is atrophic. Disproportionately elevated BUN secondary to anemia as well as steroids. 2. Chronic kidney disease stage IV with baseline creatinine 2-2.5. 3. Hypernatremia from free water diuresis and lack of oral water intake. Status post D5W. Improved. 4. Hypokalemia from diuresis. Replaced. Better. 5. Acute hypoxic respiratory failure secondary to pneumonia and volume overload. Status post bronchoscopy 03/15/2023. 6. Pneumonia on antibiotics. 7. Acute blood loss anemia. Status post blood transfusion this admission. Also received IV DDAVP. Heparin drip stopped. On Aranesp. Hemoglobin 6.9 this morning. Plan: Maintain IV Lasix. Scheduled to receive a unit of blood today. Repeat IV DDAVP today. Avoid nephrotoxins. Wean FiO2. Continue to monitor renal function and urine output. Blood glucose control. Continue to assess daily for need for renal replacement therapy. No urgency at this time but will start in the next 24-48 hours if no significant improvement in urine output with IV Lasix.
[2023-03-19 11:56] LABS: Glucose,Whole Blood 235 mg/dL (70-110)
[2023-03-19] MEDS ORDERED: DESMOPRESSIN ACETATE 28 MCG in SODIUM CHLORIDE 0.9% 50 ML IVPB ONE (12:00)
--- NOTE | 2023-03-19 12:26 | P.PN ---
Subjective Progress Note Date: 03/19/23 77 years old male with past medical history of Diabetes Mellitus, Hyperlipidemia, Hypertension, Osteoarthritis, cervical spine decompression and fusion surgery. PCP is Dr. Blount patient was sent from our with for shortness of breathwith hypoxia and saturating 81. 82% on 4 L oxygen via nasal cannula. Right upper extremity PICC line patient last time he was discharged on daptomycin every 48 hours 14 d ays.patient finished treatment and his lower extremity cellulitis is improving patient currently on BiPAP, with oxygen saturation 97%. Afebrile. Labs showed leukocytosis of 14,000, hemoglobin 7.5 creatinine is elevated at 2.8 which is at baseline of 2.2-3.0 Troponin is elevated at 0.15, 0.13.proBNP 4460. TSH is low at 0.09 Urine analysis is not suspicious for infection. chest x-ray: confluent bilateral Multifocal airspace opacities patient is a started on ceftriaxone, Zithromax IV Lasix 03/13/2023 Patient is seen and evaluated in room at bedside; remains on BiPAP; patient went into respiratory distress during the night; stat ABGs were completed which revealed a pO2 of 103 and pCO2 of 41 - Patient is currently on BiPAP with FiO2 of 100% -- Vital signs are reviewed and remained stable Blood work reveals a WBC of 16.8, hemoglobin of 7, hematocrit 22.5 and platelet count of 182, sodium 154 cultures and 2.1, BUN/creatinine of 104/3.15 and blood glucose of 240 --Chest x-ray reveals diffuse bilateral infiltrates possibly diffuse pneumonia versus interstitial edema or acute respiratory distress syndrome - Patient remains on IV heparin for possible PE; V/Q scan cannot be completed due to unstable respiratory status -- Patient has been placed on IV fluids in form of D5 water for hypernatremia; we will monitor sodium levels closely Prognosis remains guarded 03/14/2023 Patient is seen and evaluated in room at bedside; transferred to ICU; patient had been agitated and restless and noncompliant with BiPAP resulting in worsening respiratory status -- Patient has been placed on Precedex and remains on BiPAP with settings of 16/8 and 80% Vital signs are reviewed with temperature of 98.4, pulse 59, respirations 17 and blood pressure of 164/68 White count is 22.4, hemoglobin 7.4, hematocrit 24.5, with a normal platelet count. Sodium 157, potassium 2.8, chlorides 119, CO2 26, BUN 109, and creatinine 2.73. Chest x-ray continues to show bilateral airspace disease, which may be on the basis of fluid, pneumonia, or acute respiratory distress syndrome. The patient's currently on IV heparin empirically. The patient's also receiving Zosyn. Heparin can be discontinued once PE is ruled out 03/15. Patient seen and examined. Labs done this morning showed WBC 18.9, hemoglobin 7.2, platelet count 179, sodium 156, potassium 2.9, BUN 97, creatinine 2.86. Patient was intubated overnight, currently on mechanical ventilation. Currently on propofol. 03/16. Patient seen and examined. Patient continues to be intubated. Hemoglobin this morning is 6.8. Patient getting 1 unit of packed red blood cell. Blood sugars were elevated, currently on insulin drip 03/17/2023 Patient is currently intubated and on mechanical ventilator, assist control. Patient is also sedated with propofol. Chest x-ray today showed similar bilateral airspace disease with lower lung predominance. Patient had bronchoscopy done on 03/15/2023 showed no growth so far. Patient is being continued on Zosyn. Patient is on IV hydration. Patient is also on insulin drip for better blood sugar control. Laboratory data showed sodium 143 potassium 4.2 chloride 109 bicarb is 23 BUN 111 and creatinine 3.26 blood sugar 120, WBC 17.7 hemoglobin 7.5 and platelets 138. 03/18/2023 Patient remained on mechanical ventilator. Assist-control and PEEP increased to 12 with FiO2 50%. Chest x-ray showed stable lower lobe pulmonary infiltrates. ABG showed pH of 7.34, PCO2 41 and PO2 112. BAL cultures have been negative. Patient is being current Zosyn. Laboratory data showed WBC 16.8 hemoglobin 7.5 and platelets 112 BUN 119 and creatinine 3.5 bicarb is 20 blood sugar is 129. Calcium 7.2. IV fluids down to KVO. Pulmonary, nephrology is on board. 03/19/23: Patient seen and evaluated and bedside patient remains intubated, sedated. On mechanical ventilator. Blood work reviewed, noted to have anemia, 1 unit of packed RBC given Objective - Vital Signs Vital signs: Vital Signs Temp 97.0 F L 03/19/23 11:01 Pulse 60 03/19/23 11:40 Resp 26 H 10/06/23 11:40 BP 122/54 03/19/23 11:01 Pulse Ox 97 03/19/23 11:00 FiO2 60 03/19/23 11:24 Intake & Output 03/18/23 03/19/23 03/19/23 18:59 06:59 18:59 Intake Total 2131.386 1827.241 358.245 Output Total 565 695 310 Balance 503.557 456.241 48.245 Weight 115.5 kg Intake: IV 385 360 192 NS TKO 210 260 80 Piperacillin-Tazobactam 3 100 100 100 .375 gm In Sodium Chloride 0.9% 100 ml @ 25 mls/hr IVPB Q8HR [facility] Rx# :[id number] Pressure bag 12 Sodium Chloride 0.45% 1, 75 000 ml @ 75 mls/hr IV . [id number] [facility] Rx#:[id number] Intake, IV Titration 407.557 448.241 166.245 Amount Insulin Regular 100 unit 28.878 In Sodium Chloride 0.9% 100 ml @ Titrate IV .Q0M [facility] Rx#:[id number] propofoL 1,000 mg In 378.679 448.241 166.245 Empty Bag 1 bag @ 15 MCG/ KG/MIN 9.945 mls/hr IV . Q10H4M [facility] Rx#:[id number] Tube Feeding 276 253 Blood Product 0 Rc As-1 Unit 0 [id number] Other 90 Output: Gastric Drainage 200 Urine 565 695 110 Other: Voiding Method Indwelling Catheter Indwelling Catheter Indwelling Catheter ABP, PAP, CO, CI - Last Documented Arterial Blood Pressure 142/42 - Exam PHYSICAL EXAMINATION: GENERAL: The patient is intubated, old G2, Meneses cath in place HEENT: Pupils are round and equally reacting to light. CARDIOVASCULAR: S1 and S2 present PULMONARY: She is breath sounds bilaterally, no wheezing audible ABDOMEN: Soft, nontender, nondistended, normoactive bowel sounds. No palpable organomegaly. MUSCULOSKELETAL: No joint swelling or deformity. NEUROLOGICAL: Intubated and sedated neurological exam limited - Labs CBC & Chem 7: 03/19/23 05:00 03/19/23 05:00 Labs: Abnormal Lab Results - Last 24 Hours (Table) 03/16/23 03/18/23 03/18/23 Range/Units 05:17 17:22 20:39 WBC (3.8-10.6) k/uL RBC (4.30-5.90) m/uL Hgb (13.0-17.5) gm/dL Hct (39.0-53.0) % RDW (11.5-15.5) % Plt Count (150-450) k/uL ABG pH (7.35-7.45) ABG pCO2 (35-45) mmHg ABG O2 Saturation (94-97) % BUN (9-20) mg/dL Creatinine (0.66-1.25) mg/dL Glucose (74-99) mg/dL POC Glucose (mg/dL) 269 H 240 H (70-110) mg/dL Calcium (8.4-10.2) mg/dL Crossmatch See Detail 03/18/23 03/18/23 03/19/23 Range/Units 22:06 23:30 04:05 WBC (3.8-10.6) k/uL RBC (4.30-5.90) m/uL Hgb (13.0-17.5) gm/dL Hct (39.0-53.0) % RDW (11.5-15.5) % Plt Count (150-450) k/uL ABG pH (7.35-7.45) ABG pCO2 (35-45) mmHg ABG O2 Saturation (94-97) % BUN (9-20) mg/dL Creatinine (0.66-1.25) mg/dL Glucose (74-99) mg/dL POC Glucose (mg/dL) 241 H 255 H 277 H (70-110) mg/dL Calcium (8.4-10.2) mg/dL Crossmatch 03/19/23 03/19/23 03/19/23 Range/Units 05:00 05:00 05:07 WBC 18.1 H (3.8-10.6) k/uL RBC 2.33 L (4.30-5.90) m/uL Hgb 6.9 L* (13.0-17.5) gm/dL Hct 21.9 L (39.0-53.0) % RDW 17.3 H (11.5-15.5) % Plt Count 101 L (150-450) k/uL ABG pH 7.25 L (7.35-7.45) ABG pCO2 51 H (35-45) mmHg ABG O2 Saturation 97.2 H (94-97) % BUN 130 H* (9-20) mg/dL Creatinine 3.48 H (0.66-1.25) mg/dL Glucose 248 H (74-99) mg/dL POC Glucose (mg/dL) (70-110) mg/dL Calcium 7.1 L (8.4-10.2) mg/dL Crossmatch 03/19/23 03/19/23 Range/Units 06:05 11:53 WBC (3.8-10.6) k/uL RBC (4.30-5.90) m/uL Hgb (13.0-17.5) gm/dL Hct (39.0-53.0) % RDW (11.5-15.5) % Plt Count (150-450) k/uL ABG pH (7.35-7.45) ABG pCO2 (35-45) mmHg ABG O2 Saturation (94-97) % BUN (9-20) mg/dL Creatinine (0.66-1.25) mg/dL Glucose (74-99) mg/dL POC Glucose (mg/dL) 280 H 235 H (70-110) mg/dL Calcium (8.4-10.2) mg/dL Crossmatch Microbiology - Last 24 Hours (Table) 03/16/23 04:05 Blood Culture - Preliminary Blood Assessment and Plan Assessment: Assessment and plan * Multifocal pneumonia * Acute hypoxic respiratory failure due to Pneumonia * Acute blood loss anemia * Elevated troponin * chronic kidney disease stage III * Diabetes mellitus * Hypertension * Hyperlipidemia * History of osteoarthritis * Hypothyroidism with very low TSH * restless leg syndrome * In Regards to respiratory failure, patient intubated, continue propofol. Managed by ICU team * In regards to acute anemia patient has OG tube in place with dark brown residue. Continue patient on Protonix, continue IV pressors. * In regards to elevated troponin seen by cardiology, continue medical management antiplatelet/anticoagulation on hold due to anemia * In regards to multifocal pneumonia continue Zosyn
[2023-03-19 16:24] LABS: Anisocytosis Slight; HGB 8.2 gm/dL (13.0-17.5); Hypochromasia Marked; MCH 29.5 pg (25.0-35.0); MCHC 31.5 g/dL (31.0-37.0); MCV 93.8 fL (80.0-100.0); Mean Platelet Volume 14.5; RBC 2.77 m/uL (4.30-5.90); RDW 17.2 % (11.5-15.5); WBC 21.3 k/uL (3.8-10.6)
[2023-03-19 17:06] LABS: Glucose,Whole Blood 248 mg/dL (70-110)
[2023-03-19 17:37] LABS: Platelet Count 94 k/uL (150-450)
[2023-03-19 18:02] LABS: Glucose,Whole Blood 269 mg/dL (70-110)
[2023-03-19] MEDS: PANTOPRAZOLE 40 MG/10 ML VIAL IVP SCH (20:02)
[2023-03-19 23:50] LABS: Glucose,Whole Blood 297 mg/dL (70-110)
[2023-03-20] MEDS: HYDROmorphone 1 MG/ML 1 ML SYRINGE IVP PRN ×3 (02:03→16:48)
[2023-03-20] MEDS: IPRATROPIUM-ALBUTEROL 3 ML NEB INHALATION SCH ×5 (02:47→19:50)
[2023-03-20 05:02] LABS: African American GFR (CKD) 17 (>60 ml/min/1.73 sqM); Anion Gap 15 mmol/L; Calcium 7.1 mg/dL (8.4-10.2); Carbon Dioxide 21 mmol/L (22-30); Chloride 104 mmol/L (98-107); Glucose 249 mg/dL (74-99); Non-African American GFR(CKD) 15 (>60 ml/min/1.73 sqM); Potassium 5.5 mmol/L (3.5-5.1); Sodium 140 mmol/L (137-145)
[2023-03-20 05:18] LABS: Blood Urea Nitrogen 139 mg/dL (9-20)
[2023-03-20 05:24] LABS: Anisocytosis Slight; HCT 26.5 % (39.0-53.0); HGB 8.5 gm/dL (13.0-17.5); Hypochromasia Marked; MCH 30.3 pg (25.0-35.0); MCHC 32.1 g/dL (31.0-37.0); MCV 94.4 fL (80.0-100.0); Mean Platelet Volume 15.7; Platelet Count 100 k/uL (150-450); Poikilocytosis Slight; RBC 2.81 m/uL (4.30-5.90); RDW 17.8 % (11.5-15.5); WBC 17.7 k/uL (3.8-10.6)
[2023-03-20 05:37] LABS: ABG Base Excess -8.6 mmol/L; ABG HCO3 20 mmol/L (21-25); ABG Oxygen Saturation 98.1 % (94-97); ABG PCO2 52 mmHg (35-45); ABG PO2 113 mmHg (83-108); ABG TCO2 21 mmol/L (19-24)
[2023-03-20 05:41] LABS: ABG PH 7.19 (7.35-7.45); Allen Test Performed? No
[2023-03-20 06:02] LABS: Glucose,Whole Blood 284 mg/dL (70-110)
[2023-03-20] MEDS: INSULIN ASPART (NovoLOG) 100 UNIT/ML VIAL SQ SCH ×4 (06:04→23:22)
[2023-03-20] MEDS: BUDESONIDE 1 MG/2 ML NEBU INHALATION SCH ×2 (08:34→19:50)
[2023-03-20] MEDS: FORMOTEROL FUMARATE 20 MCG/2 ML NEBU INHALATION SCH ×2 (08:34→19:50)
[2023-03-20] MEDS: LEVOTHYROXINE IVP 100 MCG/5 ML VIAL IV SCH (08:48)
[2023-03-20] MEDS: PANTOPRAZOLE 40 MG/10 ML VIAL IVP SCH ×2 (08:49→20:21)
[2023-03-20] MEDS: methylPREDNISolone SOD SUCCI 40 MG/ML 1 ML VIAL IV SCH ×2 (08:49→20:21)
[2023-03-20] MEDS: PIPERACILLIN-TAZOBACTAM 3.375 GM in SODIUM CHLORIDE 0.9% 100 ML IVPB SCH ×2 (08:49→20:26)
[2023-03-20] MEDS: FUROSEMIDE 10 MG/ML 10 ML VIAL IV SCH ×3 (08:49→20:21)
[2023-03-20] MEDS: FAMOTIDINE 20 MG/2 ML VIAL IV SCH (08:49)
[2023-03-20] MEDS: CHLORHEXIDINE GLUCONATE 15 ML CUP MUCOUS MEM SCH ×2 (08:49→20:21)
[2023-03-20] MEDS: hydrALAZINE HCL 50 MG TAB PO SCH ×3 (08:50→17:28)
[2023-03-20] MEDS: amLODIPine 2.5 MG TAB PO SCH (08:50)
[2023-03-20] MEDS: SODIUM CHLORIDE 0.9% 1,000 ML IV SCH (08:50)
[2023-03-20] MEDS: metOLazone 2.5 MG TAB PO SCH (08:50)
[2023-03-20] MEDS: HYDROPHILIC CREAM 180 GM TUBE TOPICAL SCH (08:50)
--- NOTE | 2023-03-20 09:38 | P.PN ---
Subjective Progress Note Date: 03/20/23 On today's evaluation of 03/23/2023, I'm seeing the patient in the intensive care unit. At this point in time, the patient is intubated on a mechanical ventilator. Overnight, the patient became acutely hypoxic and more short of breath and he developed diffuse but the pulmonary infiltrates consistent with pneumonia and based on that the patient was intubated and placed on a mechanical ventilator. Note that this patient is 77 years of age. He has diabetes mellitus type 2, chronic kidney disease, hypothyroidism, COPD, hyperlipidemia and hypertension. He was also recently treated for cellulitis of lower extremity, discharged to [facility] for IV antibiotics through a PICC line in his right upper extremity and he received and completed the course of daptomycin. Discharged home to be readmitted for shortness of breath to our hospital on 03/08/2023. Note that the patient was being supported with BiPAP as various pressures. His proBNP level was elevated. His echocardiograms was recent showed a preserved LV function without any significant abnormalities. He was given bronchodilators. He was given IV Solu-Medrol. He was given IV Lasix. Another dose of Lasix was given to him by the nurse practitioner at 2:30 AM this morning. He has a Meneses catheter in place. Urine output is in order of 100 mL an hour. At this point in time, the patient remains on mechanical ventilator. He was quite a successful the mechanical ventilator and he was having frequent episodes of desaturation. He is on propofol running at 55 mcg/kg/m. I switched this patient's blood pressure control mode of mechanical ventilation and currently is on a pressure control of 12, rate of 26, PEEP of 12 with a FiO2 of 60%. His current pulse ox is 95%. He is on IV heparin and this was I believe initiated due to concerns of pulmonary embolism, on an empiric basis. The echoes at 18.9, hemoglobin is at 7.2, platelet count of 179, most recent blood gas showed a pH of 7.38 with a pCO2 of 43 and pO2 of 140. BUN is at 97 with a creatinine of 2.8, sodium level is at 156 and a potassium level is at 2.9. IV fluids are at KVO, 0.9. On today's evaluation of 03/16/2023, the patient is being seen for a follow-up. Remains intubated on mechanical ventilator. He was quite asynchronous with a mechanical ventilator yesterday. Based on that, I put the patient on pressure control mode of mechanical ventilation. This morning he is on a pressure control of 12, PEEP of 12, FiO2 of 50% with a rate of 26. He is on sedative medication the patient is currently on propofol running at 55 mcg/kg/m. He is quite sentences with a mechanical ventilator. A bronchoscopy was done and a bronchial lavage of the right middle lobe was done. The results are still pending for now. Meanwhile, a follow-up chest x-ray from today shows marked improvement and there is interval improvement of the diffuse bilateral pulmonary infiltrates along with some residual interstitial changes present. Nevertheless, the x-rays improved. In same time, Dr. patient is also improved and the patient has a pH of 7.3 with a pCO2 of 51 and pO2 of 207. The patient is afebrile. The patient is hemodynamically stable at this point and he is on no pressors. He remains on bronchodilators. He remains on steroids. He remains on a an empiric antibiotic coverage with IV Zosyn. Also, there is a drop in the hemoglobin down to 6.8 and the patient was given units of packed RBC. No signs of any bleeding. We have not witnessed any melanotic stools or hematemesis on this patient. He remains on enteral feeding for nutritional support and he is receiving vital high-protein at the rate of 23 mL an hour. The patient's sodium level is also improving. His free water deficit is being replaced. He is on D5 water running at 150 mL an hour. Sodium level is down to 148. The patient is also on insulin drip running at 34.8 units an hour. Most recent blood sugar is still elevated at 340. BUN is at 105, creatinine is at 3.0, serum bicarbs at 23, white cell count of 15.0. On today's evaluation of 03/17/2023, the patient remains intubated on a mechanical ventilator. He remains on propofol which is running at 55 mcg/kg/m. He remains on pressure control mode of mechanical ventilation with a pressure control 12, FiO2 at 40%, PEEP of 8 and the rate of 26. His chest x-ray still showing lower lobe bilateral palmar consolidation and infiltrates. Bronchoscopy and the bronchial lavage has yielded no microbial growth and the patient remains on IV Zosyn. No significant oral tracheal secretions. He is afebrile. He is hemodynamically stable. At the same time, the patient's free water deficit from corrected. Sodium level is down to 143. Continues to have chronic kidney disease with a creatinine of 3.26 and a BUN of 111. His blood sugars under better control the patient remains on IV insulin drip which is running at 7 units an hour. His current cardiac rhythm is sinus. No significant tachycardia. He is receiving enteral feeding for nutritional support and the patient is currently on vital high-protein at the rate of 20 mL an hour. Fluid balance is impossible the patient was receiving D5 water to supplement is free w ater deficit. Echocardiogram was showing moderate degree of pulmonary hypertension, preserved LV function,. 03/18/2023, the patient remains intubated on mechanical ventilator. Oxygenation remains borderline. Overnight, the patient desaturated and the pO2 was down to 58 based on the follow-up blood gas. Based on that, I increase the PEEP up to 12 and A similar FiO2 of 50%. He currently is on a pressure control mode at the rate of 26 and a pressure control of 12 cm of water. His current pulse ox is 97%. Chest x-ray still showing stable lower lobe pulmonary infiltrates/consolidations. Blood gas shows a pH of 7.34 with a pCO2 of 41 and pO2 of 112. As mentioned earlier, the exact nature of his pulmonary infiltrates are not clear. The patient had a bronchoscopy and bronchial lavage and the cultures are negative. The patient remains on IV Zosyn. Echocardiogram showed preserved LV function. Previous attempts to diurese this patient has failed and the patient became hypernatremic. The water deficit has been corrected and the patient's sodium level is down to 139. Echocardiogram showed a preserved LV function with an EF of around 60-65%. He does have severe pulmonary hyperte nsion with a PA pressure of 56. Rest of the valvular structures are all within normal limits. At the same time, the patient's echoes at 16.8, hemoglobin was at 7.5, platelet count is being gradually downtrending 212. BUN is 119 with a creatinine of 3.5. The patient suffers from chronic kidney disease and there is an acute kidney injury on top of his chronic kidney failure. Sodium is at 1 39, potassium is at 4. Repeat pro-calcitonin shows downtrending from 2.8 down to 1.05. No active cellulitis in lower extremities. Ultrasound abdomen showed some biliary sludge and the common bile duct was measuring around 1.2 cm. Kidneys were not adequately visualized. Overall fluid balance over the past 24 hours is +2.7 L. The patient is still receiving enteral feeding for nutritional support and the patient is currently on vital high-protein at the rate of 23 mL an hour. His IV fluids are currently at 0.9 at the rate of 75 mL an hour. On today's evaluation of 03/19/2023, overall condition is the same. The patient continues to be hypoxic. CAT scan of the chest was noted from yesterday and the patient diffuse bilateral pulmonary infiltrates and consolidation of the lung bases bilaterally. Bronchoscopy was done and the bronchial lavage was negative for metastases overdose. The patient continues to be on IV Zosyn. ARDS was consulted and the patient was started on steroids. On today's evaluation, the patient remains sedated with propofol which is running at 55 mcg/kg/m. He remains on a pressure control mode of mechanical ventilation, essentially on the same setting with a pressure control of 12, rate of 26, PEEP of 12 and FiO2 of 60%. The blood. From today shows a pH of 7.25 with a pCO2 of 51 and pO2 of 104. Chest x-ray findings of essentially unchanged and the patient continues to have dense lower lobe pulmonary infiltrates. Echocardiogram showed a preserved LV function with severe pulmonary hypertension. The patient remains in renal dysfunction. The patient has sustained an acute kidney injury on top of chronic renal failure. The BUN is at 1:30 with a creatinine of 3.4. Sodium is at 140 with a potassium level of 4.5. Serum bicarbs of 22. Urine output is in order of 30 mL an hour. Overall fluid balance is positive and the patient has been in a possible showed bibasilar the past 3 days and his weight is up 215 kg. There is also a concern of an upper GI bleed. The patient is having some coffee- ground gastric WAS. Hemoglobin is up to 6.9 and the patient is going to the CV unit packed RBC. He is afebrile. He remains on IV Zosyn. No active cellulitis of the lower extremities. Family has been updated on his condition. Note that his white cell count of 18.1 with a hemoglobin of 6.9 and a platelet count of 101. He remains on IV Protonix. He is normotensive. No significant hemodynamic changes. Remains on Levemir insulin 15 units and a sliding scale coverage. On 03/20/2023, I'm seeing the patient for a follow-up. Unfortunately, not a whole lot of progress since yesterday. He was started on diuretics yesterday and urine output remained insufficient and the patient remains in a positive fluid balance. At the same time, the patient continues to have dense consolidations of the lung bases bilaterally. The patient remains on a mechanical ventilator. The patient remains sedated on propofol which is running at 50 mcg/kg/m. He is on a pressure control mode of mechanical ventilation with a pressure control of 12, rate of 26, FiO2 of 60% with a PEEP of 12. Blood gas shows respiratory acidosis with a pH of 7.19 with a pCO2 of 52 and pO2 of 113. The patient's BUN is at 139, creatinine is higher compared to yesterday at 3.7. Sodium is at 140. The white cell count is currently at 17.7 which is improved compared to yesterday with a hemoglobin of 8.5 and a platelet count of 100 with is essentially stable. The patient remains on IV Zosyn. He is afebrile. The patient is currently nothing by mouth. He was having episodic drop in hemoglobin and he has received packed RBC transfusion and the last transfusion was yesterday. Hemoglobin currently stable. The output from the OG is 150 cc, coffee-ground/dark possibly indicating an upper GI bleed. He remains nothing by mouth. He remains on IV Protonix. No melanotic stools. Blood sugar control is adequate and the patient is currently on Levemir insulin. Objective - Vital Signs Vital signs: Vital Signs Temp 98.2 F 03/20/23 04:00 Pulse 68 03/20/23 08:34 Resp 29 H 03/20/23 08:34 BP 124/49 03/20/23 07:00 Pulse Ox 96 03/20/23 07:00 FiO2 60 03/20/23 08:24 Intake & Output 03/19/23 03/20/23 03/20/23 18:59 06:59 18:59 Intake Total 1362.730 705.470 100 Output Total 725 535 Balance 637.730 170.470 100 Weight 115.5 kg 120.7 kg Intake: IV 403 269 Desmopressin Acetate 28 50 mcg In Sodium Chloride 0. 9% 50 ml @ 200 mls/hr IVPB ONCE ONE Rx#: [id number] NS TKO 220 230 Piperacillin-Tazobactam 3 100 .375 gm In Sodium Chloride 0.9% 100 ml @ 25 mls/hr IVPB Q8HR [facility] Rx# :[id number] Pressure bag 33 39 Intake, IV Titration 339.730 436.470 100 Amount propofoL 1,000 mg In 339.730 436.470 100 Empty Bag 1 bag @ 15 MCG/ KG/MIN 9.945 mls/hr IV . Q10H4M [facility] Rx#:[id number] Blood Product 620 Rc As-1 Unit 310 [id number] Output: Gastric Drainage 400 160 Urine 325 375 Other: Voiding Method Indwelling Catheter Indwelling Catheter # Bowel Movements 1 ABP, PAP, CO, CI - Last Documented Arterial Blood Pressure 124/64 - Exam Patient is currently intubated on a mechanical ventilator. Orogastric and orotracheal tube are both in place. The patient is sedated with propofol. The patient is, comfortable and successful mechanical ventilator Head exam was generally normal. There was no scleral icterus or corneal arcus. Mucous membranes were moist. Neck was supple and without jugular venous distension, thyromegaly, or carotid bruits. Carotids were easily palpable bilaterally. There was no adenopathy. Orogastric and orotracheal tube are both in place Cardiovascular examination reveals regular rhythm rate. S1-S2 normal. No S3 or S4. No discernible murmur noted. Lungs reveal scattered rhonchi and crackles. Breath sounds equal. Breath sounds are equal bilaterally. No distinct wheezes noted. Abdomen soft bowel sounds are heard. No masses or tenderness. Extremities are intact. No cyanosis clubbing or edema. Skin is without rash or lesion. Neurologic examination is brief but nonfocal. - Labs CBC & Chem 7: 03/20/23 04:40 03/20/23 04:40 Labs: Abnormal Lab Results - Last 24 Hours (Table) 03/16/23 03/19/23 03/19/23 Range/Units 05:17 11:53 16:00 WBC 21.3 H (3.8-10.6) k/uL RBC 2.77 L (4.30-5.90) m/uL Hgb 8.2 L (13.0-17.5) gm/dL Hct 26.0 L (39.0-53.0) % RDW 17.2 H (11.5-15.5) % Plt Count 94 L (150-450) k/uL ABG pH (7.35-7.45) ABG pCO2 (35-45) mmHg ABG pO2 (83-108) mmHg ABG HCO3 (21-25) mmol/L ABG O2 Saturation (94-97) % Potassium (3.5-5.1) mmol/L Carbon Dioxide (22-30) mmol/L BUN (9-20) mg/dL Creatinine (0.66-1.25) mg/dL Glucose (74-99) mg/dL POC Glucose (mg/dL) 235 H (70-110) mg/dL Calcium (8.4-10.2) mg/dL Crossmatch See Detail 03/19/23 03/19/23 03/19/23 Range/Units 17:05 18:01 23:48 WBC (3.8-10.6) k/uL RBC (4.30-5.90) m/uL Hgb (13.0-17.5) gm/dL Hct (39.0-53.0) % RDW (11.5-15.5) % Plt Count (150-450) k/uL ABG pH (7.35-7.45) ABG pCO2 (35-45) mmHg ABG pO2 (83-108) mmHg ABG HCO3 (21-25) mmol/L ABG O2 Saturation (94-97) % Potassium (3.5-5.1) mmol/L Carbon Dioxide (22-30) mmol/L BUN (9-20) mg/dL Creatinine (0.66-1.25) mg/dL Glucose (74-99) mg/dL POC Glucose (mg/dL) 248 H 269 H 297 H (70-110) mg/dL Calcium (8.4-10.2) mg/dL Crossmatch 03/20/23 03/20/23 03/20/23 Range/Units 04:40 04:40 05:35 WBC 17.7 H (3.8-10.6) k/uL RBC 2.81 L (4.30-5.90) m/uL Hgb 8.5 L (13.0-17.5) gm/dL Hct 26.5 L (39.0-53.0) % RDW 17.8 H (11.5-15.5) % Plt Count 100 L (150-450) k/uL ABG pH 7.19 L* (7.35-7.45) ABG pCO2 52 H (35-45) mmHg ABG pO2 113 H (83-108) mmHg ABG HCO3 20 L (21-25) mmol/L ABG O2 Saturation 98.1 H (94-97) % Potassium 5.5 H (3.5-5.1) mmol/L Carbon Dioxide 21 L (22-30) mmol/L BUN 139 H* (9-20) mg/dL Creatinine 3.76 H (0.66-1.25) mg/dL Glucose 249 H (74-99) mg/dL POC Glucose (mg/dL) (70-110) mg/dL Calcium 7.1 L (8.4-10.2) mg/dL Crossmatch 03/20/23 Range/Units 06:01 WBC (3.8-10.6) k/uL RBC (4.30-5.90) m/uL Hgb (13.0-17.5) gm/dL Hct (39.0-53.0) % RDW (11.5-15.5) % Plt Count (150-450) k/uL ABG pH (7.35-7.45) ABG pCO2 (35-45) mmHg ABG pO2 (83-108) mmHg ABG HCO3 (21-25) mmol/L ABG O2 Saturation (94-97) % Potassium (3.5-5.1) mmol/L Carbon Dioxide (22-30) mmol/L BUN (9-20) mg/dL Creatinine (0.66-1.25) mg/dL Glucose (74-99) mg/dL POC Glucose (mg/dL) 284 H (70-110) mg/dL Calcium (8.4-10.2) mg/dL Crossmatch Microbiology - Last 24 Hours (Table) 03/16/23 04:05 Blood Culture - Preliminary Blood Assessment and Plan Plan: Acute hypoxemic respiratory failure, secondary to possible healthcare associated pneumonia, versus acute pulmonary edema, versus acute respiratory distress s yndrome. Patient has developed diffuse bilateral pulmonary infiltrates. This could be cardiogenic versus noncardiac pulmonary edema. Patient failed BiPAP therapy and the patient is currently intubated on a mechanical ventilator. The patient is post bronchoscopy and the bronchial lavage regarding the bilateral pulmonary infiltrates. The cultures are negative and the patient remains on IV Zosyn. He remains on pressure control mode of mechanical ventilation. Not ready for further weaning. Oxygen patient is still borderline on 12 of PEEP and FiO2 of 50%. LV function is preserved with a recent echocardiogram and he has severe pulmonary hypertension. Chest x-ray from 03/18/2023 shows stable lower lobe consolidation. CAT scan of the chest was noted and the patient has dense consolidations and diffuse but the pulmonary infiltrates. Exact nature of this point infiltrates are not clear to me. Bronchoscopy and the bronchial lavage was negative. Could be related to ARDS. Interstitial edema/volume overload cannot be ruled out. Noted the patient has significant pulmonary hypertension and right-sided heart failure. LV function is stable. Based on all this, the patient was started on diuretics. Unfortunately, urine output has been low. The patient remains in a positive fluid balance and there is interval worsening in renal function. Acute on chronic kidney disease, urine output is in order of 30 mL an hour. Creatinine is on the rise and the patient's potassium today is at 5.5 Upper GI bleeding with episodic drop in hemoglobin. Overall, the patient has received a total of 2 units of packed RBC during this current ICU stay Acute leukocytosis my improving and the white cell count of 17 Bilateral lower extremity edema, and cellulitis, treated and recovered, the adam gabriel continues to have some residual edema lower extremities Elevated troponins, rule out non-ST segment elevation myocardial infarction. Anemia of chronic disease. There is a interval drop in hemoglobin down to 6.9, consider possibility of an upper GI bleed, the patient is currently nothing by mouth, currently on IV Protonix and hemoglobin is stable posttransfusion Stage III chronic kidney disease. Type 2 diabetes mellitus. The patient is currently on Levemir insulin at 15 units Benign essential hypertension. Dyslipidemia. Hypothyroidism. Benign prostatic hypertrophy. Obesity Sinus bradycardia Plan Continue ventilator support and the patient will be brought up to a rate of 30 and the pressure control be increased up to 16. Keep the PEEP at 12 Repeat the blood gas at noontime Consult general surgery/GI regarding the upper GI bleed Monitor hemoglobin and keep the patient nothing by mouth for now We'll discuss with nephrology the possibility of hemodialysis. If agreeable, we'll proceed with a insertion of a dialysis access and dialysis today.. Chest x-ray is still showing bilateral lower lobe consolidations, unchanged Continue IV Zosyn IV fluids to KVO Continue diuretics with 60 mg of IV Lasix every 8 hours in combination with Zaroxolyn 2.5 mg twice a day Monitor urine output Monitor chest x-ray findings and oxygenation I'm not absolutely convinced that this is an infectious process. Could be noncardiogenic pulmonary edema/ARDS versus fluid overload Watch for the hemoglobin and transfuse with 2 units of packed RBC Keep the tube feeds on hold for the next 24 hours Echocardiogram was ordered for today and will completed and the findings of essentially showing a preserved LV function with severe pulmonary hypertension with a EF around 65% and the pulmonary artery pressure of around 56 mmHg, no significant valvular abnormalities Monitor the white cell count Monitor renal function, stable Monitor urine output Condition is critically ill continue to follow and make further recommendations based on his progress. There is a critical care evaluation that was done in more than 30 minutes. Time with Patient: Greater than 30
--- NOTE | 2023-03-20 10:33 | P.PN ---
Subjective Patient is seen in follow-up for acute kidney injury on chronic kidney disease. No improvement in urine output with IV Lasix. Urine output 25-30 mL an hour. Intubated. Vital signs are stable. General: Resting in bed. HEENT: Intubated. LUNGS: Scattered rhonchi. HEART: Rate and Rhythm are regular. ABDOMEN: No distention. EXTREMITITES: 1+ edema. Objective - Vital Signs Vital signs: Vital Signs Temp 98.2 F 03/20/23 04:00 Pulse 68 03/20/23 08:34 Resp 29 H 03/20/23 08:34 BP 124/49 03/20/23 07:00 Pulse Ox 96 03/20/23 07:00 FiO2 60 03/20/23 08:24 Intake & Output 03/19/23 03/20/23 03/20/23 18:59 06:59 18:59 Intake Total 1362.730 705.470 139 Output Total 725 535 235 Balance 637.730 170.470 -96 Weight 115.5 kg 120.7 kg Intake: IV 403 269 39 Desmopressin Acetate 28 50 mcg In Sodium Chloride 0. 9% 50 ml @ 200 mls/hr IVPB ONCE ONE Rx#: [id number] NS TKO 220 230 30 Piperacillin-Tazobactam 3 100 .375 gm In Sodium Chloride 0.9% 100 ml @ 25 mls/hr IVPB Q8HR [facility] Rx# :[id number] Pressure bag 33 39 9 Intake, IV Titration 339.730 436.470 100 Amount propofoL 1,000 mg In 339.730 436.470 100 Empty Bag 1 bag @ 15 MCG/ KG/MIN 9.945 mls/hr IV . Q10H4M [facility] Rx#:[id number] Blood Product 620 Rc As-1 Unit 310 [id number] Output: Gastric Drainage 400 160 150 Urine 325 375 85 Other: Voiding Method Indwelling Catheter Indwelling Catheter # Bowel Movements 1 ABP, PAP, CO, CI - Last Documented Arterial Blood Pressure 124/64 - Labs CBC & Chem 7: 03/20/23 04:40 03/20/23 04:40 Labs: Abnormal Lab Results - Last 24 Hours (Table) 03/16/23 03/19/23 03/19/23 Range/Units 05:17 11:53 16:00 WBC 21.3 H (3.8-10.6) k/uL RBC 2.77 L (4.30-5.90) m/uL Hgb 8.2 L (13.0-17.5) gm/dL Hct 26.0 L (39.0-53.0) % RDW 17.2 H (11.5-15.5) % Plt Count 94 L (150-450) k/uL ABG pH (7.35-7.45) ABG pCO2 (35-45) mmHg ABG pO2 (83-108) mmHg ABG HCO3 (21-25) mmol/L ABG O2 Saturation (94-97) % Potassium (3.5-5.1) mmol/L Carbon Dioxide (22-30) mmol/L BUN (9-20) mg/dL Creatinine (0.66-1.25) mg/dL Glucose (74-99) mg/dL POC Glucose (mg/dL) 235 H (70-110) mg/dL Calcium (8.4-10.2) mg/dL Crossmatch See Detail 03/19/23 03/19/23 03/19/23 Range/Units 17:05 18:01 23:48 WBC (3.8-10.6) k/uL RBC (4.30-5.90) m/uL Hgb (13.0-17.5) gm/dL Hct (39.0-53.0) % RDW (11.5-15.5) % Plt Count (150-450) k/uL ABG pH (7.35-7.45) ABG pCO2 (35-45) mmHg ABG pO2 (83-108) mmHg ABG HCO3 (21-25) mmol/L ABG O2 Saturation (94-97) % Potassium (3.5-5.1) mmol/L Carbon Dioxide (22-30) mmol/L BUN (9-20) mg/dL Creatinine (0.66-1.25) mg/dL Glucose (74-99) mg/dL POC Glucose (mg/dL) 248 H 269 H 297 H (70-110) mg/dL Calcium (8.4-10.2) mg/dL Crossmatch 03/20/23 03/20/23 03/20/23 Range/Units 04:40 04:40 05:35 WBC 17.7 H (3.8-10.6) k/uL RBC 2.81 L (4.30-5.90) m/uL Hgb 8.5 L (13.0-17.5) gm/dL Hct 26.5 L (39.0-53.0) % RDW 17.8 H (11.5-15.5) % Plt Count 100 L (150-450) k/uL ABG pH 7.19 L* (7.35-7.45) ABG pCO2 52 H (35-45) mmHg ABG pO2 113 H (83-108) mmHg ABG HCO3 20 L (21-25) mmol/L ABG O2 Saturation 98.1 H (94-97) % Potassium 5.5 H (3.5-5.1) mmol/L Carbon Dioxide 21 L (22-30) mmol/L BUN 139 H* (9-20) mg/dL Creatinine 3.76 H (0.66-1.25) mg/dL Glucose 249 H (74-99) mg/dL POC Glucose (mg/dL) (70-110) mg/dL Calcium 7.1 L (8.4-10.2) mg/dL Crossmatch 03/20/23 Range/Units 06:01 WBC (3.8-10.6) k/uL RBC (4.30-5.90) m/uL Hgb (13.0-17.5) gm/dL Hct (39.0-53.0) % RDW (11.5-15.5) % Plt Count (150-450) k/uL ABG pH (7.35-7.45) ABG pCO2 (35-45) mmHg ABG pO2 (83-108) mmHg ABG HCO3 (21-25) mmol/L ABG O2 Saturation (94-97) % Potassium (3.5-5.1) mmol/L Carbon Dioxide (22-30) mmol/L BUN (9-20) mg/dL Creatinine (0.66-1.25) mg/dL Glucose (74-99) mg/dL POC Glucose (mg/dL) 284 H (70-110) mg/dL Calcium (8.4-10.2) mg/dL Crossmatch Microbiology - Last 24 Hours (Table) 03/16/23 04:05 Blood Culture - Preliminary Blood Assessment and Plan Plan: Assessment: 1. Acute kidney injury secondary to ATN secondary to hemodynamic instability and infection. Creatinine 3.76 today. Urine output 25-30 mL an hour. No hydronephrosis noted on kidney ultrasound. Right kidney wasn't properly visualized. Left kidney is atrophic. Disproportionately elevated BUN secondary to anemia as well as steroids. 2. Chronic kidney disease stage IV with baseline creatinine 2-2.5. 3. Hypernatremia from free water diuresis and lack of oral water intake. Status post D5W. Improved. 4. Hypokalemia from diuresis. No hyperkalemic. 5. Acute hypoxic respiratory failure secondary to pneumonia and volume overload. Status post bronchoscopy 03/15/2023. 6. Pneumonia on antibiotics. 7. Acute blood loss anemia. Status post blood transfusion this admission. Also received IV DDAVP. Heparin drip stopped. On Aranesp. Hemoglobin 8.5 this morning. Plan: Maintain IV Lasix. Avoid nephrotoxins. Wean FiO2. Continue to monitor renal function and urine output. With worsening renal function, low urine output, hypervolemia and hyperkalemia, initiate renal replacement therapy. Plan for first treatment of hemodialysis today and second treatment tomorrow. Case discussed with catheter finisher and inspector.
--- NOTE | 2023-03-20 10:44 | P.PN ---
Subjective Progress Note Date: 03/20/23 Principal diagnosis: Sepsis/pneumonia Patient is a 77-year-old male with a past medical his significant for diabetes mellitus hypertension hyperlipidemia prostate disorder presenting to the hospital on 03/07/2023 for evaluation of increasing shortness of breath weakness and mental status changes, subsequently did have worsening of his respiratory status requiring transfer the ICU ended up getting intubated, the patient is status post bronchoscopy completed on 03/15/2023 On today's evaluation that is 03/20/2023, the patient is afebrile today, the patient is hemodynamically stable and the patient FiO2 is stable at 60% today, no significant purulent secretions through the ET or diarrhea or any other changes reported by the nursing staff Patient white count is slightly down to 17.7, creatinine is 3.76 Objective - Vital Signs Vital signs: Vital Signs Temp 98.2 F 03/20/23 04:00 Pulse 68 03/20/23 08:34 Resp 29 H 03/20/23 08:34 BP 124/49 03/20/23 07:00 Pulse Ox 96 03/20/23 07:00 FiO2 60 03/20/23 08:24 Intake & Output 03/19/23 03/20/23 03/20/23 18:59 06:59 18:59 Intake Total 1362.730 705.470 139 Output Total 725 535 235 Balance 637.730 170.470 -96 Weight 115.5 kg 120.7 kg Intake: IV 403 269 39 Desmopressin Acetate 28 50 mcg In Sodium Chloride 0. 9% 50 ml @ 200 mls/hr IVPB ONCE ONE Rx#: [id number] NS TKO 220 230 30 Piperacillin-Tazobactam 3 100 .375 gm In Sodium Chloride 0.9% 100 ml @ 25 mls/hr IVPB Q8HR [facility] Rx# :[id number] Pressure bag 33 39 9 Intake, IV Titration 339.730 436.470 100 Amount propofoL 1,000 mg In 339.730 436.470 100 Empty Bag 1 bag @ 15 MCG/ KG/MIN 9.945 mls/hr IV . Q10H4M [facility] Rx#:[id number] Blood Product 620 Rc As-1 Unit 310 [id number] Output: Gastric Drainage 400 160 150 Urine 325 375 85 Other: Voiding Method Indwelling Catheter Indwelling Catheter # Bowel Movements 1 ABP, PAP, CO, CI - Last Documented Arterial Blood Pressure 124/64 - Exam GENERAL DESCRIPTION: An elderly male intubated on the vent in no distress RESPIRATORY SYSTEM: Unlabored breathing , decreased breath sounds at bases HEART: S1 S2 regular rate and rhythm , ABDOMEN: Soft , no tenderness EXTREMITIES: No edema feet - Labs CBC & Chem 7: 03/20/23 04:40 03/20/23 04:40 Labs: Abnormal Lab Results - Last 24 Hours (Table) 03/16/23 03/19/23 03/19/23 Range/Units 05:17 11:53 16:00 WBC 21.3 H (3.8-10.6) k/uL RBC 2.77 L (4.30-5.90) m/uL Hgb 8.2 L (13.0-17.5) gm/dL Hct 26.0 L (39.0-53.0) % RDW 17.2 H (11.5-15.5) % Plt Count 94 L (150-450) k/uL ABG pH (7.35-7.45) ABG pCO2 (35-45) mmHg ABG pO2 (83-108) mmHg ABG HCO3 (21-25) mmol/L ABG O2 Saturation (94-97) % Potassium (3.5-5.1) mmol/L Carbon Dioxide (22-30) mmol/L BUN (9-20) mg/dL Creatinine (0.66-1.25) mg/dL Glucose (74-99) mg/dL POC Glucose (mg/dL) 235 H (70-110) mg/dL Calcium (8.4-10.2) mg/dL Crossmatch See Detail 03/19/23 03/19/23 03/19/23 Range/Units 17:05 18:01 23:48 WBC (3.8-10.6) k/uL RBC (4.30-5.90) m/uL Hgb (13.0-17.5) gm/dL Hct (39.0-53.0) % RDW (11.5-15.5) % Plt Count (150-450) k/uL ABG pH (7.35-7.45) ABG pCO2 (35-45) mmHg ABG pO2 (83-108) mmHg ABG HCO3 (21-25) mmol/L ABG O2 Saturation (94-97) % Potassium (3.5-5.1) mmol/L Carbon Dioxide (22-30) mmol/L BUN (9-20) mg/dL Creatinine (0.66-1.25) mg/dL Glucose (74-99) mg/dL POC Glucose (mg/dL) 248 H 269 H 297 H (70-110) mg/dL Calcium (8.4-10.2) mg/dL Crossmatch 03/20/23 03/20/23 03/20/23 Range/Units 04:40 04:40 05:35 WBC 17.7 H (3.8-10.6) k/uL RBC 2.81 L (4.30-5.90) m/uL Hgb 8.5 L (13.0-17.5) gm/dL Hct 26.5 L (39.0-53.0) % RDW 17.8 H (11.5-15.5) % Plt Count 100 L (150-450) k/uL ABG pH 7.19 L* (7.35-7.45) ABG pCO2 52 H (35-45) mmHg ABG pO2 113 H (83-108) mmHg ABG HCO3 20 L (21-25) mmol/L ABG O2 Saturation 98.1 H (94-97) % Potassium 5.5 H (3.5-5.1) mmol/L Carbon Dioxide 21 L (22-30) mmol/L BUN 139 H* (9-20) mg/dL Creatinine 3.76 H (0.66-1.25) mg/dL Glucose 249 H (74-99) mg/dL POC Glucose (mg/dL) (70-110) mg/dL Calcium 7.1 L (8.4-10.2) mg/dL Crossmatch 03/20/23 Range/Units 06:01 WBC (3.8-10.6) k/uL RBC (4.30-5.90) m/uL Hgb (13.0-17.5) gm/dL Hct (39.0-53.0) % RDW (11.5-15.5) % Plt Count (150-450) k/uL ABG pH (7.35-7.45) ABG pCO2 (35-45) mmHg ABG pO2 (83-108) mmHg ABG HCO3 (21-25) mmol/L ABG O2 Saturation (94-97) % Potassium (3.5-5.1) mmol/L Carbon Dioxide (22-30) mmol/L BUN (9-20) mg/dL Creatinine (0.66-1.25) mg/dL Glucose (74-99) mg/dL POC Glucose (mg/dL) 284 H (70-110) mg/dL Calcium (8.4-10.2) mg/dL Crossmatch Microbiology - Last 24 Hours (Table) 03/16/23 04:05 Blood Culture - Preliminary Blood Assessment and Plan (1) Pneumonia Current Visit: No Status: Acute Code(s): J18.9 - PNEUMONIA, UNSPECIFIED ORGANISM SNOMED Code(s): 577697987 Plan: 1patient with acute respiratory failure which is multifactorial in this patient with initial presentation of sepsis possible pneumonia and also a component of fluid overload in this patient with evidence of renal failure 2-Zosyn and patient to continue with and possible consideration for dialysis at this point as per discussion with the patient nurse Dictation was produced using [employer] dictation software. please excuse any grammatical, word or spelling errors. Time with Patient: Less than 30
[2023-03-20] MEDS ORDERED: HEPARIN SODIUM 1,000 UN/ML (10ML VL) IVP ONE (11:00)
--- NOTE | 2023-03-20 11:06 | P.PN ---
Subjective HISTORY OF PRESENT ILLNESS: This is a 77-year-old gentleman with coronary artery disease and congestive heart failure as well as chronic kidney disease and multiple comorbid conditions was admitted to the hospital with change in mental status and he was diagnosed with pneumonia. We consulted to see the patient because of bradycardia and also because of atrial fibrillation. Last night the patient went into respiratory failure and he was intubated. 03/15/2023 The patient was seen and evaluated this morning. He is currently intubated and he is on mechanical ventilation. Hemodynamically he is a stable as a matter of fact he is hypertensive. He is bradycardic with heart rate in the 40s and he is in sinus bradycardia. At the same time work from this morning showed hypokalemia and he continues to be in renal failure with creatinine of 2.8. He is on heparin IV for oral anticoagulation with a chest x-ray showed bilateral infiltrate definitely concerning for pneumonia. March 162022 The patient was seen and evaluated this morning. He continues to be intubated on mechanical ventilation. Hemodynamically he is a stable beside bradycardia with heart rate in the 50s. His hemoglobin drop to below 7 and currently is in process of receiving blood. For that reason heparin was stopped. He is on Lasix per nephrology service. Creatinine is 3 this morning. Examination is remarkable for regular rhythm with diminished breathing sounds bilaterally and bilateral lower extremity 03/17/2023 The patient was seen and evaluated this morning. He continues to be intubated and on mechanical ventilation. Hemodynamically he is stable and currently he is not on any vasopressors. As a matter of fact the bradycardia has improved. He is bradycardic only intermittently. He is not on any AV ayan blockers at this point. Hemoglobin has been stable at 7.1 this morning. He receives 1 unit of packed RBC yesterday. He is not bleeding. He is not on any anticoagulation at this point which I would agree on to rule out any gastrointestinal bleeding etiology. The kidney function is worse today. He was on Lasix and that has a systolic. Examination is remarkable for diminished breathing sounds bilaterally and mild bilateral lower extremity edema March 182022 The patient was seen and evaluated this morning. He continues to be sedated and intubated on mechanical ventilation. Hemodynamically he continues to be stable and not on any vasopressors. He has been maintaining normal sinus mechanism was sinus bradycardia. Currently he is not on any beta zurdo agents. Hemoglobin this morning is 7.5. Currently he is not on any oral anticoagulation. No issues with the bleeding. We would continue holding any anticoagulation at this point the hemoglobin is more stable and to rule out any gastrointestinal bleeding related issues. 03/19/2023 The patient was seen and evaluated this morning. He continues to be intubated and he is currently on mechanical ventilation. Nothing changed from that standpoint overview. Unfortunately the hemoglobin dropped again and today is 6.9. He is in process of receiving some blood. For that reason we should continue holding on any oral anticoagulation at this point. Kidney function remains elevated. Nephrology service is on the case. He is maintaining normal sinus mechanism was sinus bradycardia. 03/20/2023 Patient examined this morning in the intensive care unit. Patient remains sedated on mechanical ventilation. He is not requiring vasopressor support. Telemetry reveals sinus mechanism. Blood pressure is in the 140s. He is prescribed IV hydralazine as needed. Patient is being treated for possible GI bleed and is unable to take medications through OG tube. PHYSICAL EXAM: VITAL SIGNS: Reviewed. GENERAL: Well-developed in no acute distress. Remains on mechanical ventilation. NECK: Supple. No JVD or thyromegaly LUNGS: Respirations even and unlabored. Lungs with bilateral rhonchi noted. HEART: Regular rate and rhythm. S1 and S2 heard. EXTREMITIES: Normal range of motion. No clubbing or cyanosis. Peripheral pulses intact. Bilateral lower extremity edema ASSESSMENT: Acute hypoxic respiratory failure requiring mechanical ventilation Pneumonia Acute GI bleed Anemia Sinus bradycardia Paroxysmal atrial fibrillation, currently maintaining sinus mechanism Acute on chronic kidney disease Hypertension Hyperlipidemia Diabetes PLAN: Continue telemetry monitoring Avoid any AV ayan blocking agents as patient previously had bradycardia Continue to hold on oral anticoagulation secondary to acute GI bleeding Patient prescribed hydralazine PRN for hypertension as he is unable to take medications through OG tube Further recommendations pending patient course Nurse practitioner note has been reviewed by physician. Signing provider agrees with the documented findings, assessment, and plan of care. Objective - Vital Signs Vital signs: Vital Signs Temp 98.6 F 03/20/23 08:00 Pulse 73 03/20/23 10:00 Resp 16 03/20/23 10:00 BP 151/57 03/20/23 10:00 Pulse Ox 96 03/20/23 10:00 FiO2 60 03/20/23 08:24 Intake & Output 03/19/23 03/20/23 03/20/23 18:59 06:59 18:59 Intake Total 1362.730 705.470 200.328 Output Total 725 535 235 Balance 637.730 170.470 -34.672 Weight 115.5 kg 120.7 kg Intake: IV 403 269 39 Desmopressin Acetate 28 50 mcg In Sodium Chloride 0. 9% 50 ml @ 200 mls/hr IVPB ONCE ONE Rx#: [id number] NS TKO 220 230 30 Piperacillin-Tazobactam 3 100 .375 gm In Sodium Chloride 0.9% 100 ml @ 25 mls/hr IVPB Q8HR [facility] Rx# :[id number] Pressure bag 33 39 9 Intake, IV Titration 339.730 436.470 161.328 Amount propofoL 1,000 mg In 339.730 436.470 161.328 Empty Bag 1 bag @ 15 MCG/ KG/MIN 9.945 mls/hr IV . Q10H4M [facility] Rx#:[id number] Blood Product 620 Rc As-1 Unit 310 [id number] Output: Gastric Drainage 400 160 150 Urine 325 375 85 Other: Voiding Method Indwelling Catheter Indwelling Catheter Indwelling Catheter # Bowel Movements 1 ABP, PAP, CO, CI - Last Documented Arterial Blood Pressure 160/70 - Labs CBC & Chem 7: 03/20/23 04:40 03/20/23 04:40 Labs: Abnormal Lab Results - Last 24 Hours (Table) 03/16/23 03/19/23 03/19/23 Range/Units 05:17 11:53 16:00 WBC 21.3 H (3.8-10.6) k/uL RBC 2.77 L (4.30-5.90) m/uL Hgb 8.2 L (13.0-17.5) gm/dL Hct 26.0 L (39.0-53.0) % RDW 17.2 H (11.5-15.5) % Plt Count 94 L (150-450) k/uL ABG pH (7.35-7.45) ABG pCO2 (35-45) mmHg ABG pO2 (83-108) mmHg ABG HCO3 (21-25) mmol/L ABG O2 Saturation (94-97) % Potassium (3.5-5.1) mmol/L Carbon Dioxide (22-30) mmol/L BUN (9-20) mg/dL Creatinine (0.66-1.25) mg/dL Glucose (74-99) mg/dL POC Glucose (mg/dL) 235 H (70-110) mg/dL Calcium (8.4-10.2) mg/dL Crossmatch See Detail 03/19/23 03/19/23 03/19/23 Range/Units 17:05 18:01 23:48 WBC (3.8-10.6) k/uL RBC (4.30-5.90) m/uL Hgb (13.0-17.5) gm/dL Hct (39.0-53.0) % RDW (11.5-15.5) % Plt Count (150-450) k/uL ABG pH (7.35-7.45) ABG pCO2 (35-45) mmHg ABG pO2 (83-108) mmHg ABG HCO3 (21-25) mmol/L ABG O2 Saturation (94-97) % Potassium (3.5-5.1) mmol/L Carbon Dioxide (22-30) mmol/L BUN (9-20) mg/dL Creatinine (0.66-1.25) mg/dL Glucose (74-99) mg/dL POC Glucose (mg/dL) 248 H 269 H 297 H (70-110) mg/dL Calcium (8.4-10.2) mg/dL Crossmatch 03/20/23 03/20/23 03/20/23 Range/Units 04:40 04:40 05:35 WBC 17.7 H (3.8-10.6) k/uL RBC 2.81 L (4.30-5.90) m/uL Hgb 8.5 L (13.0-17.5) gm/dL Hct 26.5 L (39.0-53.0) % RDW 17.8 H (11.5-15.5) % Plt Count 100 L (150-450) k/uL ABG pH 7.19 L* (7.35-7.45) ABG pCO2 52 H (35-45) mmHg ABG pO2 113 H (83-108) mmHg ABG HCO3 20 L (21-25) mmol/L ABG O2 Saturation 98.1 H (94-97) % Potassium 5.5 H (3.5-5.1) mmol/L Carbon Dioxide 21 L (22-30) mmol/L BUN 139 H* (9-20) mg/dL Creatinine 3.76 H (0.66-1.25) mg/dL Glucose 249 H (74-99) mg/dL POC Glucose (mg/dL) (70-110) mg/dL Calcium 7.1 L (8.4-10.2) mg/dL Crossmatch 03/20/23 Range/Units 06:01 WBC (3.8-10.6) k/uL RBC (4.30-5.90) m/uL Hgb (13.0-17.5) gm/dL Hct (39.0-53.0) % RDW (11.5-15.5) % Plt Count (150-450) k/uL ABG pH (7.35-7.45) ABG pCO2 (35-45) mmHg ABG pO2 (83-108) mmHg ABG HCO3 (21-25) mmol/L ABG O2 Saturation (94-97) % Potassium (3.5-5.1) mmol/L Carbon Dioxide (22-30) mmol/L BUN (9-20) mg/dL Creatinine (0.66-1.25) mg/dL Glucose (74-99) mg/dL POC Glucose (mg/dL) 284 H (70-110) mg/dL Calcium (8.4-10.2) mg/dL Crossmatch Microbiology - Last 24 Hours (Table) 03/16/23 04:05 Blood Culture - Preliminary Blood
--- NOTE | 2023-03-20 11:41 | XR ---
EXAM: XR chest 1V portable CLINICAL INDICATION:Male, 77 years old with history of PNA, ARDs; PHH COMPARISON: 03/19/2023 and before TECHNIQUE: Chest single view. FINDINGS: Lines/tubes/devices: ET tube tip 4 cm above the sierra. NG/OG tube traverses below the diaphragm, ext ending into the left abdomen with the tip beyond the field of view. EKG leads and other extrinsic str uctures overlie the chest. Cardiomediastinum: Cardiac silhouette appears stable. Mildly enlarged heart with scattered atherosclerotic calcification of the aorta. Unremarkable mediastinal silhouette. Vasculature: Stable central congestion. Similar increased interstitial markings can be related to co ngestion or infiltrates. Lungs/pleura: Patchy airspace opacities in the mid to lower lungs, greatest at the bases, persist unchanged. No sig nificant pleural effusion or pneumothorax demonstrated. Bones/soft tissues: Bony thorax appears grossly unchanged as seen. Regional soft tissues appear unremarkable. IMPRESSION: 1. Lines and tubes in place, as above. 2. Cardiomegaly with stable central congestion. Similar increased interstitial markings can be relat ed to congestion or infiltrates. 3. Patchy airspace opacities in the mid to lower lungs, greatest at the bases, persist unchanged. Co nsiderations include multifocal pneumonia, edema, ARDS.
[2023-03-20 11:48] LABS: Glucose,Whole Blood 224 mg/dL (70-110)
[2023-03-20 11:50] LABS: ABG Base Excess -8.5 mmol/L; ABG HCO3 20 mmol/L (21-25); ABG Oxygen Saturation 97.9 % (94-97); ABG PCO2 52 mmHg (35-45); ABG PO2 110 mmHg (83-108); ABG TCO2 21 mmol/L (19-24)
[2023-03-20 11:53] LABS: ABG PH 7.19 (7.35-7.45)
--- NOTE | 2023-03-20 12:13 | P.GSCN ---
History of Present Illness History of present illness: 77-year-old gentleman patient has a history of 4 renal failure consulted for placement of a dense catheter. Patient also has history of diabetes hypertension patient was seen in the into care unit patient has been intubated and neck is supple no bruit appreciated Chest is patient is a few crackles the lung bases first and second sound present Abdomen soft nontender Femorals are 1+ bilateral patient has a marked swelling of the both lower extremity Plan is placement of a dialysis catheter Past Medical History Past Medical History: Cancer, Diabetes Mellitus, Hyperlipidemia, Hypertension, Osteoarthritis (OA), Prostate Disorder, Renal Disease, Thyroid Disorder Additional Past Medical History / Comment(s): Falls at home 02/13/23. skin cancer, neuropathy , restless legs History of Any Multi-Drug Resistant Organisms: None Reported Past Surgical History: Orthopedic Surgery Additional Past Surgical History / Comment(s): sinus sx. cancer removed lt ear. colonoscopy , 07-07-17 anterior cervical decompression/discectomy/fusion c3-4, c4-5 Past Anesthesia/Blood Transfusion Reactions: No Reported Reaction Past Psychological History: Anxiety, Depression Smoking Status: Former smoker Past Alcohol Use History: None Reported Past Drug Use History: None Reported - Past Family History Father Additional Family Medical History / Comment(s): aortic aneurysm Mother Family Medical History: Cancer Additional Family Medical History / Comment(s): pancreas cancer Medications and Allergies Home Medications Medication Instructions Recorded Confirmed Type Finasteride [Proscar] 5 mg PO DAILY@0800 05/17/17 03/08/23 History allopurinoL [Zyloprim] 300 mg PO HS 05/17/17 03/08/23 History Pramipexole [Mirapex] 1 mg PO Q8HR@0600,1400,2200 02/17/21 03/08/23 History Sertraline [Zoloft] 50 mg PO BID@0800,2100 02/17/21 03/08/23 History Aspirin 81 mg PO DAILY@1200 07/09/21 03/08/23 History Cholecalciferol [Vitamin D3 (25 25 mcg PO DAILY@1200 02/02/22 03/08/23 History Mcg = 1000 Iu)] amLODIPine [Norvasc] 5 mg PO BID@0800,1700 02/02/22 03/08/23 History hydrALAZINE HCL [Apresoline] 100 mg PO BID@0800,1700 02/02/22 03/08/23 History Famotidine [Pepcid] 20 mg PO DAILY@0600 02/13/23 03/08/23 History Ferrous Sulfate [Iron (65 MG 325 mg PO DAILY@1200 02/13/23 03/08/23 History Elemental)] Levothyroxine Sodium [Synthroid] 175 mcg PO DAILY@0600 02/13/23 03/08/23 History Tamsulosin HCl [Flomax] 0.4 mg PO HS 02/13/23 03/08/23 History carvediloL [Coreg] 12.5 mg PO BID@0800,1700 02/13/23 03/08/23 History DAPTOmycin [Cubicin] 350 mg IVPB Q48H 14 Days #7 each 02/22/23 03/08/23 Rx HYDROcodone/APAP 10-325MG [[place] 1 tab PO TID PRN #6 tab 02/22/23 03/08/23 Rx 10-325] Acetaminophen [Tylenol] 650 mg PO Q4H PRN 03/08/23 03/08/23 History Darbepoetin Amrit [Aranesp] 40 mcg SQ FR@1200 03/08/23 03/08/23 History Heparin Sodium,Porcine (1 ml) 5,000 unit SQ Q8HR@0600,1400,2200 03/08/23 03/08/23 History [Heparin Sodium] INSULIN ASPART (NovoLOG) [NovoLOG See Protocol SQ ACHS 03/08/23 03/08/23 History (formulary)] Ipratropium-Albuterol Nebulize 3 ml INHALATION RT-Q6H PRN 03/08/23 03/08/23 History [Duoneb 0.5 mg-3 mg/3 ml Soln] Magnesium Hydroxide [Milk of 7,200 mg PO Q2D PRN 03/08/23 03/08/23 History Magnesia Concentrate] Na Phos,M-B/Na Phos,Di-Ba [Fleet 133 ml RECTAL DAILY PRN 03/08/23 03/08/23 Hi story Adult] Nystatin 100,000 Unit/gm Powd 1 applic TOPICAL BID 03/08/23 03/08/23 History [Mycostatin Powder] Pregabalin [Lyrica] 150 mg PO Q12HR@0800,2100 03/08/23 03/08/23 History SILVER sulfADIAZINE Cream 1 applic TOPICAL DAILY 03/08/23 03/08/23 History [Silvadene 1% Cream] Sennosides [Senokot] 8.6 mg PO DAILY@0800 03/08/23 03/08/23 History Sodium Bicarbonate Tab 650 mg PO BID@0800,1700 03/08/23 03/08/23 History bisacodyL [Dulcolax] 10 mg RECTAL DAILY PRN 03/08/23 03/08/23 History Allergies Allergy/AdvReac Type Severity Reaction Status Date / Time enalaprilat [From Vasotec] AdvReac felt weak, Verified 03/08/23 08:05 couldn't talk erythromycin base AdvReac Nausea & Verified 03/08/23 08:05 [From Erythrocin] Vomiting Surgical - Exam Vital Signs Temp Pulse Resp BP Pulse Ox 98.1 F 66 22 139/59 90 L 03/07/23 20:36 03/07/23 20:36 03/07/23 20:36 03/07/23 20:36 03/07/23 20:36 Results - Labs 03/20/23 04:40 03/20/23 04:40 Abnormal Lab Results - Last 24 Hours (Table) 03/16/23 03/19/23 03/19/23 Range/Units 05:17 16:00 17:05 WBC 21.3 H (3.8-10.6) k/uL RBC 2.77 L (4.30-5.90) m/uL Hgb 8.2 L (13.0-17.5) gm/dL Hct 26.0 L (39.0-53.0) % RDW 17.2 H (11.5-15.5) % Plt Count 94 L (150-450) k/uL ABG pH (7.35-7.45) ABG pCO2 (35-45) mmHg ABG pO2 (83-108) mmHg ABG HCO3 (21-25) mmol/L ABG O2 Saturation (94-97) % Potassium (3.5-5.1) mmol/L Carbon Dioxide (22-30) mmol/L BUN (9-20) mg/dL Creatinine (0.66-1.25) mg/dL Glucose (74-99) mg/dL POC Glucose (mg/dL) 248 H (70-110) mg/dL Calcium (8.4-10.2) mg/dL Crossmatch See Detail 03/19/23 03/19/23 03/20/23 Range/Units 18:01 23:48 04:40 WBC 17.7 H (3.8-10.6) k/uL RBC 2.81 L (4.30-5.90) m/uL Hgb 8.5 L (13.0-17.5) gm/dL Hct 26.5 L (39.0-53.0) % RDW 17.8 H (11.5-15.5) % Plt Count 100 L (150-450) k/uL ABG pH (7.35-7.45) ABG pCO2 (35-45) mmHg ABG pO2 (83-108) mmHg ABG HCO3 (21-25) mmol/L ABG O2 Saturation (94-97) % Potassium (3.5-5.1) mmol/L Carbon Dioxide (22-30) mmol/L BUN (9-20) mg/dL Creatinine (0.66-1.25) mg/dL Glucose (74-99) mg/dL POC Glucose (mg/dL) 269 H 297 H (70-110) mg/dL Calcium (8.4-10.2) mg/dL Crossmatch 03/20/23 03/20/23 03/20/23 Range/Units 04:40 05:35 06:01 WBC (3.8-10.6) k/uL RBC (4.30-5.90) m/uL Hgb (13.0-17.5) gm/dL Hct (39.0-53.0) % RDW (11.5-15.5) % Plt Count (150-450) k/uL ABG pH 7.19 L* (7.35-7.45) ABG pCO2 52 H (35-45) mmHg ABG pO2 113 H (83-108) mmHg ABG HCO3 20 L (21-25) mmol/L ABG O2 Saturation 98.1 H (94-97) % Potassium 5.5 H (3.5-5.1) mmol/L Carbon Dioxide 21 L (22-30) mmol/L BUN 139 H* (9-20) mg/dL Creatinine 3.76 H (0.66-1.25) mg/dL Glucose 249 H (74-99) mg/dL POC Glucose (mg/dL) 284 H (70-110) mg/dL Calcium 7.1 L (8.4-10.2) mg/dL Crossmatch 03/20/23 03/20/23 Range/Units 11:47 11:47 WBC (3.8-10.6) k/uL RBC (4.30-5.90) m/uL Hgb (13.0-17.5) gm/dL Hct (39.0-53.0) % RDW (11.5-15.5) % Plt Count (150-450) k/uL ABG pH 7.19 L* (7.35-7.45) ABG pCO2 52 H (35-45) mmHg ABG pO2 110 H (83-108) mmHg ABG HCO3 20 L (21-25) mmol/L ABG O2 Saturation 97.9 H (94-97) % Potassium (3.5-5.1) mmol/L Carbon Dioxide (22-30) mmol/L BUN (9-20) mg/dL Creatinine (0.66-1.25) mg/dL Glucose (74-99) mg/dL POC Glucose (mg/dL) 224 H (70-110) mg/dL Calcium (8.4-10.2) mg/dL Crossmatch Microbiology - Last 24 Hours (Table) 03/16/23 04:05 Blood Culture - Preliminary Blood Diabetes panel 03/20/23 Range/Units 04:40 Sodium 140 (137-145) mmol/L Potassium 5.5 H (3.5-5.1) mmol/L Chloride 104 (98-107) mmol/L Carbon Dioxide 21 L (22-30) mmol/L BUN 139 H* (9-20) mg/dL Creatinine 3.76 H (0.66-1.25) mg/dL Glucose 249 H (74-99) mg/dL Calcium 7.1 L (8.4-10.2) mg/dL Calcium panel 03/20/23 Range/Units 04:40 Calcium 7.1 L (8.4-10.2) mg/dL Pituitary panel 03/20/23 Range/Units 04:40 Sodium 140 (137-145) mmol/L Potassium 5.5 H (3.5-5.1) mmol/L Chloride 104 (98-107) mmol/L Carbon Dioxide 21 L (22-30) mmol/L BUN 139 H* (9-20) mg/dL Creatinine 3.76 H (0.66-1.25) mg/dL Glucose 249 H (74-99) mg/dL Calcium 7.1 L (8.4-10.2) mg/dL Adrenal panel 03/20/23 Range/Units 04:40 Sodium 140 (137-145) mmol/L Potassium 5.5 H (3.5-5.1) mmol/L Chloride 104 (98-107) mmol/L Carbon Dioxide 21 L (22-30) mmol/L BUN 139 H* (9-20) mg/dL Creatinine 3.76 H (0.66-1.25) mg/dL Glucose 249 H (74-99) mg/dL Calcium 7.1 L (8.4-10.2) mg/dL
--- NOTE | 2023-03-20 12:15 | P.PCN ---
Description of Procedure: Preoperative diagnoses is acute chronic renal failure Posterior same Procedure patient was seen in the disc care unit right groin were prepped and draped applied sterile manner 1% lidocaine were infiltrated right groin area. Ultrasound-guided micropuncture and the right femoral vein micropuncture guidewire was passed and 4-Grenadian dilator advanced top the guidewire. Then we passed a regular guidewire without any resistance then attention was top the guidewire then we placed 20 same callus catheter top of the guidewire guidewire was removed flushed with heparin sent Hep-Lock secured with 3-0 nylon patient for the procedure well
--- NOTE | 2023-03-20 12:18 | P.PN ---
Progress Note - Text 77-year-old white female patient has history of obesity, patient has a wound on the left lower extremity and right lower extremity. Patient came to the ER with discomfort and pain and difficulty ambulating patient has a large wound on the left lower extremity we took the deep culture yesterday patient is an IV antibiotic under care of infectious disease we've been using Santyl cream on daily basis
--- NOTE | 2023-03-20 12:48 | P.PN ---
Subjective Progress Note Date: 03/20/23 77 years old male with past medical history of Diabetes Mellitus, Hyperlipidemia, Hypertension, Osteoarthritis, cervical spine decompression and fusion surgery. PCP is Dr. Blount patient was sent from our with for shortness of breathwith hypoxia and saturating 81. 82% on 4 L oxygen via nasal cannula. Right upper extremity PICC line patient last time he was discharged on daptomycin every 48 hours 14 d ays.patient finished treatment and his lower extremity cellulitis is improving patient currently on BiPAP, with oxygen saturation 97%. Afebrile. Labs showed leukocytosis of 14,000, hemoglobin 7.5 creatinine is elevated at 2.8 which is at baseline of 2.2-3.0 Troponin is elevated at 0.15, 0.13.proBNP 4460. TSH is low at 0.09 Urine analysis is not suspicious for infection. chest x-ray: confluent bilateral Multifocal airspace opacities patient is a started on ceftriaxone, Zithromax IV Lasix 03/13/2023 Patient is seen and evaluated in room at bedside; remains on BiPAP; patient went into respiratory distress during the night; stat ABGs were completed which revealed a pO2 of 103 and pCO2 of 41 - Patient is currently on BiPAP with FiO2 of 100% -- Vital signs are reviewed and remained stable Blood work reveals a WBC of 16.8, hemoglobin of 7, hematocrit 22.5 and platelet count of 182, sodium 154 cultures and 2.1, BUN/creatinine of 104/3.15 and blood glucose of 240 --Chest x-ray reveals diffuse bilateral infiltrates possibly diffuse pneumonia versus interstitial edema or acute respiratory distress syndrome - Patient remains on IV heparin for possible PE; V/Q scan cannot be completed due to unstable respiratory status -- Patient has been placed on IV fluids in form of D5 water for hypernatremia; we will monitor sodium levels closely Prognosis remains guarded 03/14/2023 Patient is seen and evaluated in room at bedside; transferred to ICU; patient had been agitated and restless and noncompliant with BiPAP resulting in worsening respiratory status -- Patient has been placed on Precedex and remains on BiPAP with settings of 16/8 and 80% Vital signs are reviewed with temperature of 98.4, pulse 59, respirations 17 and blood pressure of 164/68 White count is 22.4, hemoglobin 7.4, hematocrit 24.5, with a normal platelet count. Sodium 157, potassium 2.8, chlorides 119, CO2 26, BUN 109, and creatinine 2.73. Chest x-ray continues to show bilateral airspace disease, which may be on the basis of fluid, pneumonia, or acute respiratory distress syndrome. The patient's currently on IV heparin empirically. The patient's also receiving Zosyn. Heparin can be discontinued once PE is ruled out 03/15. Patient seen and examined. Labs done this morning showed WBC 18.9, hemoglobin 7.2, platelet count 179, sodium 156, potassium 2.9, BUN 97, creatinine 2.86. Patient was intubated overnight, currently on mechanical ventilation. Currently on propofol. 03/16. Patient seen and examined. Patient continues to be intubated. Hemoglobin this morning is 6.8. Patient getting 1 unit of packed red blood cell. Blood sugars were elevated, currently on insulin drip 03/17/2023 Patient is currently intubated and on mechanical ventilator, assist control. Patient is also sedated with propofol. Chest x-ray today showed similar bilateral airspace disease with lower lung predominance. Patient had bronchoscopy done on 03/15/2023 showed no growth so far. Patient is being continued on Zosyn. Patient is on IV hydration. Patient is also on insulin drip for better blood sugar control. Laboratory data showed sodium 143 potassium 4.2 chloride 109 bicarb is 23 BUN 111 and creatinine 3.26 blood sugar 120, WBC 17.7 hemoglobin 7.5 and platelets 138. 03/18/2023 Patient remained on mechanical ventilator. Assist-control and PEEP increased to 12 with FiO2 50%. Chest x-ray showed stable lower lobe pulmonary infiltrates. ABG showed pH of 7.34, PCO2 41 and PO2 112. BAL cultures have been negative. Patient is being current Zosyn. Laboratory data showed WBC 16.8 hemoglobin 7.5 and platelets 112 BUN 119 and creatinine 3.5 bicarb is 20 blood sugar is 129. Calcium 7.2. IV fluids down to KVO. Pulmonary, nephrology is on board. 03/19/23: Patient seen and evaluated and bedside patient remains intubated, sedated. On mechanical ventilator. Blood work reviewed, noted to have anemia, 1 unit of packed RBC given 03/20/2023: Patient seen and evaluated, and remains intubated, on mechanical ventilator, on propofol. Blood work reviewed hemoglobin remained stable, potassium of 25.5, nephrology following plan for hemodialysis today axis already in place Objective - Vital Signs Vital signs: Vital Signs Temp 98.2 F 03/20/23 12:00 Pulse 66 03/20/23 12:03 Resp 33 H 03/20/23 12:03 BP 131/53 03/20/23 12:00 Pulse Ox 96 03/20/23 12:00 FiO2 60 03/20/23 12:00 Intake & Output 03/19/23 03/20/23 03/20/23 18:59 06:59 18:59 Intake Total 1362.730 705.470 226.328 Output Total 725 535 415 Balance 637.730 170.470 -188.672 Weight 115.5 kg 120.7 kg Intake: IV 403 269 65 Desmopressin Acetate 28 50 mcg In Sodium Chloride 0. 9% 50 ml @ 200 mls/hr IVPB ONCE ONE Rx#: [id number] NS TKO 220 230 50 Piperacillin-Tazobactam 3 100 .375 gm In Sodium Chloride 0.9% 100 ml @ 25 mls/hr IVPB Q8HR [facility] Rx# :[id number] Pressure bag 33 39 15 Intake, IV Titration 339.730 436.470 161.328 Amount propofoL 1,000 mg In 339.730 436.470 161.328 Empty Bag 1 bag @ 15 MCG/ KG/MIN 9.945 mls/hr IV . Q10H4M [facility] Rx#:[id number] Blood Product 620 Rc As-1 Unit 310 [id number] Output: Gastric Drainage 400 160 150 Urine 325 375 265 Other: Voiding Method Indwelling Catheter Indwelling Catheter Indwelling Catheter # Bowel Movements 1 ABP, PAP, CO, CI - Last Documented Arterial Blood Pressure 153/49 - Exam PHYSICAL EXAMINATION: GENERAL: The patient is intubated, orogastric tube in place, Meneses cath in place HEENT: Pupils are round and equally reacting to light. CARDIOVASCULAR: S1 and S2 present PULMONARY: She is breath sounds bilaterally, no wheezing audible ABDOMEN: Soft, nontender, nondistended, normoactive bowel sounds. No palpable organomegaly. NEUROLOGICAL: Intubated and sedated neurological exam limited - Labs CBC & Chem 7: 03/20/23 04:40 03/20/23 04:40 Labs: Abnormal Lab Results - Last 24 Hours (Table) 03/16/23 03/19/23 03/19/23 Range/Units 05:17 16:00 17:05 WBC 21.3 H (3.8-10.6) k/uL RBC 2.77 L (4.30-5.90) m/uL Hgb 8.2 L (13.0-17.5) gm/dL Hct 26.0 L (39.0-53.0) % RDW 17.2 H (11.5-15.5) % Plt Count 94 L (150-450) k/uL ABG pH (7.35-7.45) ABG pCO2 (35-45) mmHg ABG pO2 (83-108) mmHg ABG HCO3 (21-25) mmol/L ABG O2 Saturation (94-97) % Potassium (3.5-5.1) mmol/L Carbon Dioxide (22-30) mmol/L BUN (9-20) mg/dL Creatinine (0.66-1.25) mg/dL Glucose (74-99) mg/dL POC Glucose (mg/dL) 248 H (70-110) mg/dL Calcium (8.4-10.2) mg/dL Crossmatch See Detail 03/19/23 03/19/23 03/20/23 Range/Units 18:01 23:48 04:40 WBC 17.7 H (3.8-10.6) k/uL RBC 2.81 L (4.30-5.90) m/uL Hgb 8.5 L (13.0-17.5) gm/dL Hct 26.5 L (39.0-53.0) % RDW 17.8 H (11.5-15.5) % Plt Count 100 L (150-450) k/uL ABG pH (7.35-7.45) ABG pCO2 (35-45) mmHg ABG pO2 (83-108) mmHg ABG HCO3 (21-25) mmol/L ABG O2 Saturation (94-97) % Potassium (3.5-5.1) mmol/L Carbon Dioxide (22-30) mmol/L BUN (9-20) mg/dL Creatinine (0.66-1.25) mg/dL Glucose (74-99) mg/dL POC Glucose (mg/dL) 269 H 297 H (70-110) mg/dL Calcium (8.4-10.2) mg/dL Crossmatch 03/20/23 03/20/23 03/20/23 Range/Units 04:40 05:35 06:01 WBC (3.8-10.6) k/uL RBC (4.30-5.90) m/uL Hgb (13.0-17.5) gm/dL Hct (39.0-53.0) % RDW (11.5-15.5) % Plt Count (150-450) k/uL ABG pH 7.19 L* (7.35-7.45) ABG pCO2 52 H (35-45) mmHg ABG pO2 113 H (83-108) mmHg ABG HCO3 20 L (21-25) mmol/L ABG O2 Saturation 98.1 H (94-97) % Potassium 5.5 H (3.5-5.1) mmol/L Carbon Dioxide 21 L (22-30) mmol/L BUN 139 H* (9-20) mg/dL Creatinine 3.76 H (0.66-1.25) mg/dL Glucose 249 H (74-99) mg/dL POC Glucose (mg/dL) 284 H (70-110) mg/dL Calcium 7.1 L (8.4-10.2) mg/dL Crossmatch 03/20/23 03/20/23 Range/Units 11:47 11:47 WBC (3.8-10.6) k/uL RBC (4.30-5.90) m/uL Hgb (13.0-17.5) gm/dL Hct (39.0-53.0) % RDW (11.5-15.5) % Plt Count (150-450) k/uL ABG pH 7.19 L* (7.35-7.45) ABG pCO2 52 H (35-45) mmHg ABG pO2 110 H (83-108) mmHg ABG HCO3 20 L (21-25) mmol/L ABG O2 Saturation 97.9 H (94-97) % Potassium (3.5-5.1) mmol/L Carbon Dioxide (22-30) mmol/L BUN (9-20) mg/dL Creatinine (0.66-1.25) mg/dL Glucose (74-99) mg/dL POC Glucose (mg/dL) 224 H (70-110) mg/dL Calcium (8.4-10.2) mg/dL Crossmatch Microbiology - Last 24 Hours (Table) 03/16/23 04:05 Blood Culture - Preliminary Blood Assessment and Plan Assessment: Assessment and plan * Multifocal pneumonia * Acute hypoxic respiratory failure due to Pneumonia * Acute blood loss anemia suspect upper GI bleed and it for EGD * Elevated troponin * 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 Managed by ICU team * In regards to acute anemia patient has OG tube in place with dark brown residue. Continue patient on Protonix, general surgery consulted * In regards to elevated troponin seen by cardiology, continue medical management antiplatelet/anticoagulation on hold due to anemia * In regards to multifocal pneumonia continue Zosyn * In regards to worsening renal failure, nephrology following plan to start tahmina lysis in the ICU * Prognosis remains poor
[2023-03-20 12:51] LABS: Anisocytosis Slight; Basophils % (A) 0 %; Eosinophils % (A) 0 %; HCT 23.4 % (39.0-53.0); HGB 7.7 gm/dL (13.0-17.5); Hypochromasia Marked; Lymphocytes # (A) 0.3 k/uL (1.0-4.8); Lymphocytes % (A) 2 %; MCH 30.7 pg (25.0-35.0); MCHC 32.7 g/dL (31.0-37.0); MCV 93.9 fL (80.0-100.0); Mean Platelet Volume 15.8; Monocytes # (A) 0.3 k/uL (0-1.0); Monocytes % (A) 2 %; Neutrophils # (A) 16.7 k/uL (1.3-7.7); Neutrophils % (A) 96 %; Platelet Count 100 k/uL (150-450); Poikilocytosis Slight; RDW 17.8 % (11.5-15.5); WBC 17.4 k/uL (3.8-10.6)
[2023-03-20 13:26] LABS: Large Platelets Present
[2023-03-20] MEDS: hydrALAZINE HCL 20 MG/ML 1 ML VIAL IVP PRN (17:07)
[2023-03-20 17:14] LABS: Glucose,Whole Blood 200 mg/dL (70-110)
--- NOTE | 2023-03-20 17:40 | P.CON ---
Consult Note - . Consult date: 03/20/23 Assessment/Plan:: 77 year old male surgery was consult for GI bleed. Patient is having melena and some hematochezia. VSS are stable. Hemoglobin is currently stable. Review of Systems CONSTITUTIONAL: No fever, no malaise, no fatigue. HEENT: No recent visual problems or hearing problems. Denied any sore throat. CARDIOVASCULAR: No orthopnea, PND, no palpitations, no syncope. PULMONARY: No shortness of breath, no cough, no hemoptysis. GASTROINTESTINAL: No diarrhea, no nausea, no vomiting, no abdominal pain. Normoactive bowel sounds. NEUROLOGICAL: No headaches, no weakness, no numbness. HEMATOLOGICAL: Denies any bleeding or petechiae. GENITOURINARY: Denies any burning micturition, frequency, or urgency. MUSCULOSKELETAL/RHEUMATOLOGICAL: Denies any joint pain, swelling, or any muscle pain. ENDOCRINE: Denies any polyuria or polydipsia. -GENERAL: The patient is alert and oriented x3, not in any acute distress. obese HEENT: Pupils are round and equally reacting to light. EOMI. No scleral icterus. No conjunctival pallor. Normocephalic, atraumatic. No pharyngeal erythema. No thyromegaly. CARDIOVASCULAR: S1 and S2 present. No murmurs, rubs, or gallops. -PULMONARY: Chest is clear to auscultation, no wheezing . degrees [place] on both sides with crepitation. Patient is currently on BiPAP ABDOMEN: Soft, nontender, nondistended, normoactive bowel sounds. No palpable organomegaly. MUSCULOSKELETAL: No joint swelling or deformity. -EXTREMITIES: No cyanosis, clubbing,, bilateral pitting leg edema. there is a small wound in the left lower extremity. Bilateral discoloration and erythema of both lower extremity most likely secondary to status dermatitis NEUROLOGICAL: Gross neurological examination did not reveal any focal deficits. SKIN: No rashes. no petechiae. 77 year old male with GI bleed -Hgb is currently stable -IV protonix - q 6 hour H/H -Transfuse PRBCs prn -No acute surgical intervention
[2023-03-20 17:59] LABS: Anisocytosis Slight; Basophils % (A) 0 %; Eosinophils % (A) 0 %; HCT 25.3 % (39.0-53.0); HGB 8.2 gm/dL (13.0-17.5); Hypochromasia Moderate; Lymphocytes # (A) 0.4 k/uL (1.0-4.8); Lymphocytes % (A) 2 %; MCHC 32.6 g/dL (31.0-37.0); MCV 92.2 fL (80.0-100.0); Monocytes # (A) 0.4 k/uL (0-1.0); Monocytes % (A) 2 %; Neutrophils # (A) 16.9 k/uL (1.3-7.7); Neutrophils % (A) 95 %; Platelet Count 107 k/uL (150-450); Poikilocytosis Slight; RBC 2.74 m/uL (4.30-5.90); RDW 17.6 % (11.5-15.5); WBC 17.9 k/uL (3.8-10.6)
[2023-03-20] MEDS: LORazepam 2 MG/ML INJ IV PRN (18:03)
[2023-03-20 18:26] LABS: ABG Base Excess -6.7 mmol/L; ABG HCO3 20 mmol/L (21-25); ABG Oxygen Saturation 98.7 % (94-97); ABG PCO2 44 mmHg (35-45); ABG PH 7.27 (7.35-7.45); ABG PO2 153 mmHg (83-108); ABG TCO2 22 mmol/L (19-24)
[2023-03-20 18:37] LABS: Large Platelets Present
[2023-03-20] MEDS: CLEVIDIPINE BUTYRATE 25 MG in EMPTY BAG 1 BAG IV SCH (18:51)
[2023-03-20 19:13] LABS: ALT 13 U/L (4-49); AST 25 U/L (17-59); African American GFR (CKD) 20 (>60 ml/min/1.73 sqM); Albumin 2.6 g/dL (3.5-5.0); Alkaline Phosphatase 90 U/L (38-126); Anion Gap 18 mmol/L; Blood Urea Nitrogen 107 mg/dL (9-20); Carbon Dioxide 18 mmol/L (22-30); Chloride 104 mmol/L (98-107); Glucose 191 mg/dL (74-99); Magnesium 2.3 mg/dL (1.6-2.3); Non-African American GFR(CKD) 18 (>60 ml/min/1.73 sqM); Potassium 4.7 mmol/L (3.5-5.1); Sodium 140 mmol/L (137-145); Total Bilirubin 0.4 mg/dL (0.2-1.3); Total Protein 5.1 g/dL (6.3-8.2)
[2023-03-20 19:15] LABS: Phosphorus 10.4 mg/dL (2.5-4.5)
[2023-03-20 20:40] LABS: Glucose,Whole Blood 200 mg/dL (70-110)
[2023-03-20] MEDS: INSULIN DETEMIR (LEVEMIR) 100 UNIT/ML SYR SQ SCH (20:47)
[2023-03-20 23:20] LABS: Glucose,Whole Blood 240 mg/dL (70-110)
[2023-03-20 23:54] LABS: Glucose,Whole Blood 226 mg/dL (70-110)
[2023-03-21] MEDS: IPRATROPIUM-ALBUTEROL 3 ML NEB INHALATION SCH ×6 (00:09→20:15)
[2023-03-21 01:24] LABS: Anisocytosis Slight; Basophils % (A) 0 %; Eosinophils % (A) 0 %; HCT 23.4 % (39.0-53.0); HGB 8.1 gm/dL (13.0-17.5); Hypochromasia Moderate; Lymphocytes # (A) 0.4 k/uL (1.0-4.8); Lymphocytes % (A) 2 %; MCH 31.8 pg (25.0-35.0); MCHC 34.5 g/dL (31.0-37.0); Monocytes # (A) 0.3 k/uL (0-1.0); Monocytes % (A) 2 %; Neutrophils # (A) 15.2 k/uL (1.3-7.7); Neutrophils % (A) 95 %; Platelet Count 105 k/uL (150-450); Poikilocytosis Slight; RBC 2.54 m/uL (4.30-5.90); RDW 17.7 % (11.5-15.5); WBC 15.9 k/uL (3.8-10.6)
[2023-03-21] MEDS: HYDROmorphone 1 MG/ML 1 ML SYRINGE IVP PRN ×4 (04:56→20:24)
[2023-03-21 05:30] LABS: Glucose,Whole Blood 269 mg/dL (70-110)
[2023-03-21] MEDS: INSULIN ASPART (NovoLOG) 100 UNIT/ML VIAL SQ SCH ×3 (05:46→18:07)
[2023-03-21] MEDS: SODIUM CHLORIDE 0.9% 1,000 ML IV SCH (05:46)
[2023-03-21 05:50] LABS: African American GFR (CKD) 21 (>60 ml/min/1.73 sqM); Anion Gap 17 mmol/L; Calcium 6.6 mg/dL (8.4-10.2); Carbon Dioxide 16 mmol/L (22-30); Chloride 105 mmol/L (98-107); Glucose 234 mg/dL (74-99); Non-African American GFR(CKD) 18 (>60 ml/min/1.73 sqM); Potassium 4.9 mmol/L (3.5-5.1); Sodium 138 mmol/L (137-145)
[2023-03-21 05:52] LABS: Blood Urea Nitrogen 116 mg/dL (9-20)
[2023-03-21 06:03] LABS: Anisocytosis Slight; Basophils % (A) 0 %; Eosinophils % (A) 0 %; HCT 22.7 % (39.0-53.0); HGB 7.7 gm/dL (13.0-17.5); Hypochromasia Moderate; Lymphocytes # (A) 0.4 k/uL (1.0-4.8); Lymphocytes % (A) 3 %; MCH 31.2 pg (25.0-35.0); MCHC 33.8 g/dL (31.0-37.0); MCV 92.5 fL (80.0-100.0); Mean Platelet Volume 15.6; Monocytes # (A) 0.3 k/uL (0-1.0); Monocytes % (A) 2 %; Neutrophils # (A) 13.2 k/uL (1.3-7.7); Neutrophils % (A) 95 %; Platelet Count 106 k/uL (150-450); Poikilocytosis Slight; RBC 2.45 m/uL (4.30-5.90); RDW 17.7 % (11.5-15.5)
[2023-03-21 06:36] LABS: ABG Base Excess -8.1 mmol/L; ABG HCO3 19 mmol/L (21-25); ABG Oxygen Saturation 98.7 % (94-97); ABG PCO2 43 mmHg (35-45); ABG PH 7.25 (7.35-7.45); ABG PO2 125 mmHg (83-108); ABG TCO2 20 mmol/L (19-24)
[2023-03-21 06:38] LABS: Allen Test Performed? No
[2023-03-21 07:06] LABS: Hepatitis B Surface AB- Quant 3.5 mIU/mL; Hepatitis B Surface Antigen Nonreactive
--- NOTE | 2023-03-21 07:44 | XR ---
EXAM: XR chest 1V portable CLINICAL INDICATION:Male, 77 years old with history of PNA, ARDs; PHH COMPARISON: 03/20/2023 and before TECHNIQUE: Chest single view. FINDINGS: Lines/tubes/devices: ET tube tip 3.7 cm above the sierra. NG/OG tube traverses below the diaphragm, s idehole and distal tip over the proximal stomach. EKG leads and other extrinsic structures overlie th e chest. Cardiomediastinum: Cardiac silhouette appears stable. Mildly enlarged heart with scattered atherosclerotic calcification of the aorta. Stable mediastinal silhouette. Vasculature: Stable central vascular congestion and increased interstitial markings, which can be re lated to congestion or infiltrates. Lungs/pleura: Patchy airspace opacities in the mid to lower lungs, greatest at the bases, with slight interval wors ening. No significant pleural effusion or pneumothorax demonstrated. Bones/soft tissues: Bony thorax appears grossly unchanged as seen with degenerative changes noted. Regional soft tissues appear unremarkable. IMPRESSION: 1. Lines and tubes in place, as above. Consider a few centimeters of advancement of the NG tube. 2. Stable central vascular congestion and increased interstitial markings, which can be related to c ongestion or infiltrates. 3. Patchy airspace opacities in the mid to lower lungs, greatest at the bases, with slight interval worsening.
[2023-03-21] MEDS: methylPREDNISolone SOD SUCCI 40 MG/ML 1 ML VIAL IV SCH ×2 (08:28→20:13)
[2023-03-21] MEDS: CHLORHEXIDINE GLUCONATE 15 ML CUP MUCOUS MEM SCH ×2 (08:28→20:13)
[2023-03-21] MEDS: PANTOPRAZOLE 40 MG/10 ML VIAL IVP SCH ×2 (08:28→20:13)
[2023-03-21] MEDS: FUROSEMIDE 10 MG/ML 10 ML VIAL IV SCH ×2 (08:29→20:14)
[2023-03-21] MEDS: FORMOTEROL FUMARATE 20 MCG/2 ML NEBU INHALATION SCH ×2 (08:29→20:15)
[2023-03-21] MEDS: metOLazone 2.5 MG TAB PO SCH (08:29)
[2023-03-21] MEDS: amLODIPine 2.5 MG TAB PO SCH (08:29)
[2023-03-21] MEDS: BUDESONIDE 1 MG/2 ML NEBU INHALATION SCH ×2 (08:29→20:15)
[2023-03-21] MEDS: LEVOTHYROXINE IVP 100 MCG/5 ML VIAL IV SCH (08:29)
[2023-03-21] MEDS: HYDROPHILIC CREAM 180 GM TUBE TOPICAL SCH (08:30)
[2023-03-21] MEDS: PIPERACILLIN-TAZOBACTAM 3.375 GM in SODIUM CHLORIDE 0.9% 100 ML IVPB SCH ×2 (09:00→20:13)
--- NOTE | 2023-03-21 09:03 | P.PN ---
Subjective Progress Note Date: 03/21/23 On today's evaluation of 03/23/2023, I'm seeing the patient in the intensive care unit. At this point in time, the patient is intubated on a mechanical ventilator. Overnight, the patient became acutely hypoxic and more short of breath and he developed diffuse but the pulmonary infiltrates consistent with pneumonia and based on that the patient was intubated and placed on a mechanical ventilator. Note that this patient is 77 years of age. He has diabetes mellitus type 2, chronic kidney disease, hypothyroidism, COPD, hyperlipidemia and hypertension. He was also recently treated for cellulitis of lower extremity, discharged to [facility] for IV antibiotics through a PICC line in his right upper extremity and he received and completed the course of daptomycin. Discharged home to be readmitted for shortness of breath to our hospital on 03/08/2023. Note that the patient was being supported with BiPAP as various pressures. His proBNP level was elevated. His echocardiograms was recent showed a preserved LV function without any significant abnormalities. He was given bronchodilators. He was given IV Solu-Medrol. He was given IV Lasix. Another dose of Lasix was given to him by the nurse practitioner at 2:30 AM this morning. He has a Meneses catheter in place. Urine output is in order of 100 mL an hour. At this point in time, the patient remains on mechanical ventilator. He was quite a successful the mechanical ventilator and he was having frequent episodes of desaturation. He is on propofol running at 55 mcg/kg/m. I switched this patient's blood pressure control mode of mechanical ventilation and currently is on a pressure control of 12, rate of 26, PEEP of 12 with a FiO2 of 60%. His current pulse ox is 95%. He is on IV heparin and this was I believe initiated due to concerns of pulmonary embolism, on an empiric basis. The echoes at 18.9, hemoglobin is at 7.2, platelet count of 179, most recent blood gas showed a pH of 7.38 with a pCO2 of 43 and pO2 of 140. BUN is at 97 with a creatinine of 2.8, sodium level is at 156 and a potassium level is at 2.9. IV fluids are at KVO, 0.9. On today's evaluation of 03/16/2023, the patient is being seen for a follow-up. Remains intubated on mechanical ventilator. He was quite asynchronous with a mechanical ventilator yesterday. Based on that, I put the patient on pressure control mode of mechanical ventilation. This morning he is on a pressure control of 12, PEEP of 12, FiO2 of 50% with a rate of 26. He is on sedative medication the patient is currently on propofol running at 55 mcg/kg/m. He is quite sentences with a mechanical ventilator. A bronchoscopy was done and a bronchial lavage of the right middle lobe was done. The results are still pending for now. Meanwhile, a follow-up chest x-ray from today shows marked improvement and there is interval improvement of the diffuse bilateral pulmonary infiltrates along with some residual interstitial changes present. Nevertheless, the x-rays improved. In same time, Dr. patient is also improved and the patient has a pH of 7.3 with a pCO2 of 51 and pO2 of 207. The patient is afebrile. The patient is hemodynamically stable at this point and he is on no pressors. He remains on bronchodilators. He remains on steroids. He remains on a an empiric antibiotic coverage with IV Zosyn. Also, there is a drop in the hemoglobin down to 6.8 and the patient was given units of packed RBC. No signs of any bleeding. We have not witnessed any melanotic stools or hematemesis on this patient. He remains on enteral feeding for nutritional support and he is receiving vital high-protein at the rate of 23 mL an hour. The patient's sodium level is also improving. His free water deficit is being replaced. He is on D5 water running at 150 mL an hour. Sodium level is down to 148. The patient is also on insulin drip running at 34.8 units an hour. Most recent blood sugar is still elevated at 340. BUN is at 105, creatinine is at 3.0, serum bicarbs at 23, white cell count of 15.0. On today's evaluation of 03/17/2023, the patient remains intubated on a mechanical ventilator. He remains on propofol which is running at 55 mcg/kg/m. He remains on pressure control mode of mechanical ventilation with a pressure control 12, FiO2 at 40%, PEEP of 8 and the rate of 26. His chest x-ray still showing lower lobe bilateral palmar consolidation and infiltrates. Bronchoscopy and the bronchial lavage has yielded no microbial growth and the patient remains on IV Zosyn. No significant oral tracheal secretions. He is afebrile. He is hemodynamically stable. At the same time, the patient's free water deficit from corrected. Sodium level is down to 143. Continues to have chronic kidney disease with a creatinine of 3.26 and a BUN of 111. His blood sugars under better control the patient remains on IV insulin drip which is running at 7 units an hour. His current cardiac rhythm is sinus. No significant tachycardia. He is receiving enteral feeding for nutritional support and the patient is currently on vital high-protein at the rate of 20 mL an hour. Fluid balance is impossible the patient was receiving D5 water to supplement is free w ater deficit. Echocardiogram was showing moderate degree of pulmonary hypertension, preserved LV function,. 03/18/2023, the patient remains intubated on mechanical ventilator. Oxygenation remains borderline. Overnight, the patient desaturated and the pO2 was down to 58 based on the follow-up blood gas. Based on that, I increase the PEEP up to 12 and A similar FiO2 of 50%. He currently is on a pressure control mode at the rate of 26 and a pressure control of 12 cm of water. His current pulse ox is 97%. Chest x-ray still showing stable lower lobe pulmonary infiltrates/consolidations. Blood gas shows a pH of 7.34 with a pCO2 of 41 and pO2 of 112. As mentioned earlier, the exact nature of his pulmonary infiltrates are not clear. The patient had a bronchoscopy and bronchial lavage and the cultures are negative. The patient remains on IV Zosyn. Echocardiogram showed preserved LV function. Previous attempts to diurese this patient has failed and the patient became hypernatremic. The water deficit has been corrected and the patient's sodium level is down to 139. Echocardiogram showed a preserved LV function with an EF of around 60-65%. He does have severe pulmonary hyperte nsion with a PA pressure of 56. Rest of the valvular structures are all within normal limits. At the same time, the patient's echoes at 16.8, hemoglobin was at 7.5, platelet count is being gradually downtrending 212. BUN is 119 with a creatinine of 3.5. The patient suffers from chronic kidney disease and there is an acute kidney injury on top of his chronic kidney failure. Sodium is at 1 39, potassium is at 4. Repeat pro-calcitonin shows downtrending from 2.8 down to 1.05. No active cellulitis in lower extremities. Ultrasound abdomen showed some biliary sludge and the common bile duct was measuring around 1.2 cm. Kidneys were not adequately visualized. Overall fluid balance over the past 24 hours is +2.7 L. The patient is still receiving enteral feeding for nutritional support and the patient is currently on vital high-protein at the rate of 23 mL an hour. His IV fluids are currently at 0.9 at the rate of 75 mL an hour. On today's evaluation of 03/19/2023, overall condition is the same. The patient continues to be hypoxic. CAT scan of the chest was noted from yesterday and the patient diffuse bilateral pulmonary infiltrates and consolidation of the lung bases bilaterally. Bronchoscopy was done and the bronchial lavage was negative for metastases overdose. The patient continues to be on IV Zosyn. ARDS was consulted and the patient was started on steroids. On today's evaluation, the patient remains sedated with propofol which is running at 55 mcg/kg/m. He remains on a pressure control mode of mechanical ventilation, essentially on the same setting with a pressure control of 12, rate of 26, PEEP of 12 and FiO2 of 60%. The blood. From today shows a pH of 7.25 with a pCO2 of 51 and pO2 of 104. Chest x-ray findings of essentially unchanged and the patient continues to have dense lower lobe pulmonary infiltrates. Echocardiogram showed a preserved LV function with severe pulmonary hypertension. The patient remains in renal dysfunction. The patient has sustained an acute kidney injury on top of chronic renal failure. The BUN is at 1:30 with a creatinine of 3.4. Sodium is at 140 with a potassium level of 4.5. Serum bicarbs of 22. Urine output is in order of 30 mL an hour. Overall fluid balance is positive and the patient has been in a possible showed bibasilar the past 3 days and his weight is up 215 kg. There is also a concern of an upper GI bleed. The patient is having some coffee- ground gastric WAS. Hemoglobin is up to 6.9 and the patient is going to the CV unit packed RBC. He is afebrile. He remains on IV Zosyn. No active cellulitis of the lower extremities. Family has been updated on his condition. Note that his white cell count of 18.1 with a hemoglobin of 6.9 and a platelet count of 101. He remains on IV Protonix. He is normotensive. No significant hemodynamic changes. Remains on Levemir insulin 15 units and a sliding scale coverage. On 03/20/2023, I'm seeing the patient for a follow-up. Unfortunately, not a whole lot of progress since yesterday. He was started on diuretics yesterday and urine output remained insufficient and the patient remains in a positive fluid balance. At the same time, the patient continues to have dense consolidations of the lung bases bilaterally. The patient remains on a mechanical ventilator. The patient remains sedated on propofol which is running at 50 mcg/kg/m. He is on a pressure control mode of mechanical ventilation with a pressure control of 12, rate of 26, FiO2 of 60% with a PEEP of 12. Blood gas shows respiratory acidosis with a pH of 7.19 with a pCO2 of 52 and pO2 of 113. The patient's BUN is at 139, creatinine is higher compared to yesterday at 3.7. Sodium is at 140. The white cell count is currently at 17.7 which is improved compared to yesterday with a hemoglobin of 8.5 and a platelet count of 100 with is essentially stable. The patient remains on IV Zosyn. He is afebrile. The patient is currently nothing by mouth. He was having episodic drop in hemoglobin and he has received packed RBC transfusion and the last transfusion was yesterday. Hemoglobin currently stable. The output from the OG is 150 cc, coffee-ground/dark possibly indicating an upper GI bleed. He remains nothing by mouth. He remains on IV Protonix. No melanotic stools. Blood sugar control is adequate and the patient is currently on Levemir insulin. On 03/21/2023, the patient is essentially the same intubated on a mechanical ventilator. He was started hemodialysis yesterday. He received the first session of hemodialysis with 2 L of fluid removal and is going to have another session today. He has a right femoral triple-lumen catheter in place. He remains sedated on propofol which is currently running at 45 mcg/kg/m. His blood pressure was noted to be elevated and the patient was started on Cleviprex strep which was subsequently discontinued. His calm and comfortable and symptoms of the mechanical ventilator. Is on a pressure control mode at a rate of 30, pressure of 16 cm of water and FiO2 of 60% with a PEEP of 12. Blood gas shows some improvement in his oxygenation. PH is at 7.25 with a pCO2 of 43 and pO2 125. Chest x-ray findings are essentially unchanged with dense consolidations bilaterally. Orotracheal tube is in a good location. He also has a orogastric tube in place and output from the stomach is quite minimal yet bloody and there is obvious coffee-ground material. No bright blood per rectum. No melanotic stools. His hemoglobin is dropped slightly is currently at 7.7. He is on no pressors for now. He remains nothing by mouth. Cardiac rhythm is sinus. Objective - Vital Signs Vital signs: Vital Signs Temp 97.6 F 03/21/23 04:00 Pulse 62 03/21/23 08:29 Resp 30 H 03/21/23 08:29 BP 129/61 03/21/23 02:30 Pulse Ox 96 03/21/23 07:00 FiO2 60 03/21/23 08:23 Intake & Output 03/20/23 03/21/23 03/21/23 18:59 06:59 18:59 Intake Total 493.220 596.694 68.745 Output Total 790 585 50 Balance -296.780 11.694 18.745 Weight 116.2 kg Intake: IV 156 43 3 NS TKO 120 10 Pressure bag 36 33 3 Intake, IV Titration 337.220 553.694 65.745 Amount Clevidipine Butyrate 25 0.200 16.533 mg In Empty Bag 1 bag @ 1 MG/HR 2 mls/hr IV .Q24H FRANKO Rx#:[id number] Piperacillin-Tazobactam 3 125 .375 gm In Sodium Chloride 0.9% 100 ml @ 25 mls/hr IVPB Q12HR FRANKO Rx #:[id number] propofoL 1,000 mg In 337.020 412.161 65.745 Empty Bag 1 bag @ 15 MCG/ KG/MIN 9.945 mls/hr IV . Q10H4M FRANKO Rx#:[id number] Output: Gastric Drainage 150 Urine 640 585 50 Other: Voiding Method Indwelling Catheter Indwelling Catheter ABP, PAP, CO, CI - Last Documented Arterial Blood Pressure 153/44 - Exam Patient is currently intubated on a mechanical ventilator. Orogastric and orotracheal tube are both in place. The patient is sedated with propofol. The patient is, comfortable on the mechanical ventilator. Output from that which is minimal at this point in time, it may be bloody. It is dark and some limited coffee grounds Head exam was generally normal. There was no scleral icterus or corneal arcus. Mucous membranes were moist. Neck was supple and without jugular venous distension, thyromegaly, or carotid bruits. Carotids were easily palpable bilaterally. There was no adenopathy. Orogastric and orotracheal tube are both in place Cardiovascular examination reveals regular rhythm rate. S1-S2 normal. No S3 or S4. No discernible murmur noted. Lungs reveal scattered rhonchi and crackles. Breath sounds equal. Breath sounds are equal bilaterally. No distinct wheezes noted. Abdomen soft bowel sounds are heard. No masses or tenderness. The patient has a temporary hemodialysis catheter in his right femoral vein. Extremities are intact. No cyanosis clubbing increased edema in all 4 extremit ies Skin is without rash or lesion. No open wounds or sores Neurologic examination is brief but nonfocal. The patient is currently sedated on propofol. - Labs CBC & Chem 7: 03/21/23 05:30 03/21/23 05:30 Labs: Abnormal Lab Results - Last 24 Hours (Table) 03/20/23 03/20/23 03/20/23 Range/Units 11:47 11:47 11:50 WBC 17.4 H (3.8-10.6) k/uL RBC 2.50 L (4.30-5.90) m/uL Hgb 7.7 L (13.0-17.5) gm/dL Hct 23.4 L (39.0-53.0) % RDW 17.8 H (11.5-15.5) % Plt Count 100 L (150-450) k/uL Neutrophils # 16.7 H (1.3-7.7) k/uL Lymphocytes # 0.3 L (1.0-4.8) k/uL ABG pH 7.19 L* (7.35-7.45) ABG pCO2 52 H (35-45) mmHg ABG pO2 110 H (83-108) mmHg ABG HCO3 20 L (21-25) mmol/L ABG O2 Saturation 97.9 H (94-97) % Potassium (3.5-5.1) mmol/L Carbon Dioxide (22-30) mmol/L BUN (9-20) mg/dL Creatinine (0.66-1.25) mg/dL Glucose (74-99) mg/dL POC Glucose (mg/dL) 224 H (70-110) mg/dL Calcium (8.4-10.2) mg/dL Phosphorus (2.5-4.5) mg/dL Total Protein (6.3-8.2) g/dL Albumin (3.5-5.0) g/dL 03/20/23 03/20/23 03/20/23 Range/Units 12:05 17:12 17:40 WBC 17.9 H (3.8-10.6) k/uL RBC 2.74 L (4.30-5.90) m/uL Hgb 8.2 L (13.0-17.5) gm/dL Hct 25.3 L (39.0-53.0) % RDW 17.6 H (11.5-15.5) % Plt Count 107 L (150-450) k/uL Neutrophils # 16.9 H (1.3-7.7) k/uL Lymphocytes # 0.4 L (1.0-4.8) k/uL ABG pH (7.35-7.45) ABG pCO2 (35-45) mmHg ABG pO2 (83-108) mmHg ABG HCO3 (21-25) mmol/L ABG O2 Saturation (94-97) % Potassium 5.3 H (3.5-5.1) mmol/L Carbon Dioxide (22-30) mmol/L BUN (9-20) mg/dL Creatinine (0.66-1.25) mg/dL Glucose (74-99) mg/dL POC Glucose (mg/dL) 200 H (70-110) mg/dL Calcium (8.4-10.2) mg/dL Phosphorus (2.5-4.5) mg/dL Total Protein (6.3-8.2) g/dL Albumin (3.5-5.0) g/dL 03/20/23 03/20/23 03/20/23 Range/Units 18:23 18:24 20:28 WBC (3.8-10.6) k/uL RBC (4.30-5.90) m/uL Hgb (13.0-17.5) gm/dL Hct (39.0-53.0) % RDW (11.5-15.5) % Plt Count (150-450) k/uL Neutrophils # (1.3-7.7) k/uL Lymphocytes # (1.0-4.8) k/uL ABG pH 7.27 L (7.35-7.45) ABG pCO2 (35-45) mmHg ABG pO2 153 H (83-108) mmHg ABG HCO3 20 L (21-25) mmol/L ABG O2 Saturation 98.7 H (94-97) % Potassium (3.5-5.1) mmol/L Carbon Dioxide 18 L (22-30) mmol/L BUN 107 H* (9-20) mg/dL Creatinine 3.24 H (0.66-1.25) mg/dL Glucose 191 H (74-99) mg/dL POC Glucose (mg/dL) 200 H (70-110) mg/dL Calcium 7.0 L (8.4-10.2) mg/dL Phosphorus 10.4 H* (2.5-4.5) mg/dL Total Protein 5.1 L (6.3-8.2) g/dL Albumin 2.6 L (3.5-5.0) g/dL 03/20/23 03/20/23 03/21/23 Range/Units 23:19 23:53 00:40 WBC 15.9 H (3.8-10.6) k/uL RBC 2.54 L (4.30-5.90) m/uL Hgb 8.1 L (13.0-17.5) gm/dL Hct 23.4 L (39.0-53.0) % RDW 17.7 H (11.5-15.5) % Plt Count 105 L (150-450) k/uL Neutrophils # 15.2 H (1.3-7.7) k/uL Lymphocytes # 0.4 L (1.0-4.8) k/uL ABG pH (7.35-7.45) ABG pCO2 (35-45) mmHg ABG pO2 (83-108) mmHg ABG HCO3 (21-25) mmol/L ABG O2 Saturation (94-97) % Potassium (3.5-5.1) mmol/L Carbon Dioxide (22-30) mmol/L BUN (9-20) mg/dL Creatinine (0.66-1.25) mg/dL Glucose (74-99) mg/dL POC Glucose (mg/dL) 240 H 226 H (70-110) mg/dL Calcium (8.4-10.2) mg/dL Phosphorus (2.5-4.5) mg/dL Total Protein (6.3-8.2) g/dL Albumin (3.5-5.0) g/dL 03/21/23 03/21/23 03/21/23 Range/Units 05:28 05:30 05:30 WBC 14.0 H (3.8-10.6) k/uL RBC 2.45 L (4.30-5.90) m/uL Hgb 7.7 L (13.0-17.5) gm/dL Hct 22.7 L (39.0-53.0) % RDW 17.7 H (11.5-15.5) % Plt Count 106 L (150-450) k/uL Neutrophils # 13.2 H (1.3-7.7) k/uL Lymphocytes # 0.4 L (1.0-4.8) k/uL ABG pH (7.35-7.45) ABG pCO2 (35-45) mmHg ABG pO2 (83-108) mmHg ABG HCO3 (21-25) mmol/L ABG O2 Saturation (94-97) % Potassium (3.5-5.1) mmol/L Carbon Dioxide 16 L (22-30) mmol/L BUN 116 H* (9-20) mg/dL Creatinine 3.21 H (0.66-1.25) mg/dL Glucose 234 H (74-99) mg/dL POC Glucose (mg/dL) 269 H (70-110) mg/dL Calcium 6.6 L (8.4-10.2) mg/dL Phosphorus (2.5-4.5) mg/dL Total Protein (6.3-8.2) g/dL Albumin (3.5-5.0) g/dL 03/21/23 Range/Units 06:30 WBC (3.8-10.6) k/uL RBC (4.30-5.90) m/uL Hgb (13.0-17.5) gm/dL Hct (39.0-53.0) % RDW (11.5-15.5) % Plt Count (150-450) k/uL Neutrophils # (1.3-7.7) k/uL Lymphocytes # (1.0-4.8) k/uL ABG pH 7.25 L (7.35-7.45) ABG pCO2 (35-45) mmHg ABG pO2 125 H (83-108) mmHg ABG HCO3 19 L (21-25) mmol/L ABG O2 Saturation 98.7 H (94-97) % Potassium (3.5-5.1) mmol/L Carbon Dioxide (22-30) mmol/L BUN (9-20) mg/dL Creatinine (0.66-1.25) mg/dL Glucose (74-99) mg/dL POC Glucose (mg/dL) (70-110) mg/dL Calcium (8.4-10.2) mg/dL Phosphorus (2.5-4.5) mg/dL Total Protein (6.3-8.2) g/dL Albumin (3.5-5.0) g/dL Assessment and Plan Plan: Acute hypoxemic respiratory failure, secondary to possible healthcare associated pneumonia, versus acute pulmonary edema, versus acute respiratory distress syndrome. Patient has developed diffuse bilateral pulmonary infiltrates. This could be cardiogenic versus noncardiac pulmonary edema. Patient failed BiPAP therapy and the patient is currently intubated on a mechanical ventilator. The patient is post bronchoscopy and the bronchial lavage regarding the bilateral pulmonary infiltrates. The cultures are negative and the patient remains on IV Zosyn. He remains on pressure control mode of mechanical ventilation. Not ready for further weaning. Oxygen patient is still borderline on 12 of PEEP and FiO2 of 50%. LV function is preserved with a recent echocardiogram and he has severe pulmonary hypertension. Chest x-ray from 03/18/2023 shows stable lower lobe consolidation. CAT scan of the chest was noted and the patient has dense consolidations and diffuse but the pulmonary infiltrates. Exact nature of this point infiltrates are not clear to me. Bronchoscopy and the bronchial lavage was negative. Could be related to ARDS. Interstitial edema/volume overload cannot be ruled out. Noted the patient has significant pulmonary hypertension and right-sided heart failure. LV function is stable. Based on all this, the patient was started on diuretics. Unfortunately, urine output has been low. The patient was started on hemodialysis yesterday. He is receiving his second session. No major improvement in his chest x-ray findings. Nevertheless, the oxygenation is improved and will continue to follow. Acute on chronic kidney disease, urine output is in order of 60 mL an hour. The patient remains on Lasix 60 mg every 12 hours, currently off Zaroxolyn. Upper GI bleeding with episodic drop in hemoglobin. Overall, the patient has received a total of 2 units of packed RBC during this current ICU stay, current hemoglobin is stable at 7.7. Suspect an upper GI bleed. The patient is currently nothing by mouth. Acute leukocytosis my improving and the white cell count of 14 Bilateral lower extremity edema, and cellulitis, treated and recovered, the patient continues to have some residual edema lower extremities Elevated troponins, rule out non-ST segment elevation myocardial infarction. Anemia of chronic disease. Hemoglobin stable at 7.7. Watch for any signs of GI bleeding Stage III chronic kidney disease. Type 2 diabetes mellitus. The patient is currently on Levemir insulin at 15 units Benign essential hypertension. Dyslipidemia. Hypothyroidism. Benign prostatic hypertrophy. Obesity Sinus bradycardia, currently inactive and stable Plan Continue ventilator support Repeat a blood gas following the hemodialysis and decided the patient is weaned off terms of his FiO2 Consult general surgery/GI regarding the upper GI bleed, keep NPO Monitor hemoglobin and keep the patient nothing by mouth for now We'll continue hemodialysis Chest x-ray is still showing bilateral lower lobe consolidations, unchanged Continue IV Zosyn IV fluids to KVO Continue diuretics with 60 mg of IV Lasix every 12hr Monitor urine output Monitor chest x-ray findings and oxygenation I'm not absolutely convinced that this is an infectious process. Watch for the hemoglobin and was transfused with 2 units of packed RBC Keep the tube feeds on hold for the next 24 hours Echocardiogram was ordered for today and will completed and the findings of essentially showing a preserved LV function with severe pulmonary hypertension with a EF around 65% and the pulmonary artery pressure of around 56 mmHg, no significant valvular abnormalities Monitor the white cell count Monitor renal function, stable Monitor urine output Condition is critically ill continue to follow and make further recommendations based on his progress. There is a critical care evaluation that was done in more than 30 minutes. Time with Patient: Greater than 30
--- NOTE | 2023-03-21 09:12 | P.PN ---
Subjective Progress Note Date: 03/21/23 Principal diagnosis: Paroxysmal atrial fibrillation This is a 77-year-old gentleman with coronary artery disease and congestive heart failure as well as chronic kidney disease and multiple comorbid conditions was admitted to the hospital with change in mental status and he was diagnosed with pneumonia. We consulted to see the patient because of bradycardia and also because of atrial fibrillation. Last night the patient went into respiratory failure and he was intubated. 03/15/2023 The patient was seen and evaluated this morning. He is currently intubated and he is on mechanical ventilation. Hemodynamically he is a stable as a matter of fact he is hypertensive. He is bradycardic with heart rate in the 40s and he is in sinus bradycardia. At the same time work from this morning showed hypokalemia and he continues to be in renal failure with creatinine of 2.8. He is on heparin IV for oral anticoagulation with a chest x-ray showed bilateral infiltrate definitely concerning for pneumonia. March 162022 The patient was seen and evaluated this morning. He continues to be intubated on mechanical ventilation. Hemodynamically he is a stable beside bradycardia with heart rate in the 50s. His hemoglobin drop to below 7 and currently is in process of receiving blood. For that reason heparin was stopped. He is on Lasix per nephrology service. Creatinine is 3 this morning. Examination is remarkable for regular rhythm with diminished breathing sounds b ilaterally and bilateral lower extremity 03/17/2023 The patient was seen and evaluated this morning. He continues to be intubated and on mechanical ventilation. Hemodynamically he is stable and currently he is not on any vasopressors. As a matter of fact the bradycardia has improved. He is bradycardic only intermittently. He is not on any AV ayan blockers at this point. Hemoglobin has been stable at 7.1 this morning. He receives 1 unit of packed RBC yesterday. He is not bleeding. He is not on any anticoagulation at this point which I would agree on to rule out any gastrointestinal bleeding etiology. The kidney function is worse today. He was on Lasix and that has a systolic. Examination is remarkable for diminished breathing sounds bilaterally and mild bilateral lower extremity edema March 182022 The patient was seen and evaluated this morning. He continues to be sedated and intubated on mechanical ventilation. Hemodynamically he continues to be stable and not on any vasopressors. He has been maintaining normal sinus mechanism was sinus bradycardia. Currently he is not on any beta zurdo agents. Hemoglobin this morning is 7.5. Currently he is not on any oral anticoagulation. No issues with the bleeding. We would continue holding any anticoagulation at this point the hemoglobin is more stable and to rule out any gastrointestinal bleeding related issues. 03/19/2023 The patient was seen and evaluated this morning. He continues to be intubated and he is currently on mechanical ventilation. Nothing changed from that standpoint overview. Unfortunately the hemoglobin dropped again and today is 6.9. He is in process of receiving some blood. For that reason we should continue holding on any oral anticoagulation at this point. Kidney function r emains elevated. Nephrology service is on the case. He is maintaining normal sinus mechanism was sinus bradycardia. The examination is remarkable for bilateral lower extremities edema and bilateral upper extremities edema March [id number] The patient was seen and evaluated this morning. He is on dialysis at this point. Hemodynamically he seems to be stable. The hemoglobin is a stable as we ll. He has been maintaining normal sinus mechanism. Anticoagulation is on hold at this point. The examination is remarkable for bilateral lower extremities edema and diminished breathing sounds bilaterally Assessment Change in mental status Pneumonia Paroxysmal atrial fibrillation. Currently the patient is in sinus rhythm Sinus bradycardia Severe electrolytes abnormalities Acute on chronic renal failure Multiple comorbid conditions Anemia Plan Continue the current medical regimen Avoid any AV ayan zurdo agents at this point Avoid oral anticoagulation to rule out gastrointestinal bleeding etiology Follow-up with the patient Continue monitor the hemoglobin Objective - Vital Signs Vital signs: Vital Signs Temp 97.6 F 03/21/23 04:00 Pulse 62 03/21/23 08:29 Resp 30 H 03/21/23 08:29 BP 129/61 03/21/23 02:30 Pulse Ox 96 03/21/23 07:00 FiO2 60 03/21/23 08:23 Intake & Output 03/20/23 03/21/23 03/21/23 18:59 06:59 18:59 Intake Total 493.220 596.694 68.745 Output Total 790 585 50 Balance -296.780 11.694 18.745 Weight 116.2 kg Intake: IV 156 43 3 NS TKO 120 10 Pressure bag 36 33 3 Intake, IV Titration 337.220 553.694 65.745 Amount Clevidipine Butyrate 25 0.200 16.533 mg In Empty Bag 1 bag @ 1 MG/HR 2 mls/hr IV .Q24H [facility] Rx#:[id number] Piperacillin-Tazobactam 3 125 .375 gm In Sodium Chloride 0.9% 100 ml @ 25 mls/hr IVPB Q12HR [facility] Rx #:[id number] propofoL 1,000 mg In 337.020 412.161 65.745 Empty Bag 1 bag @ 15 MCG/ KG/MIN 9.945 mls/hr IV . Q10H4M [facility] Rx#:[id number] Output: Gastric Drainage 150 Urine 640 585 50 Other: Voiding Method Indwelling Catheter Indwelling Catheter ABP, PAP, CO, CI - Last Documented Arterial Blood Pressure 153/44 - Labs CBC & Chem 7: 03/21/23 05:30 03/21/23 05:30 Labs: Abnormal Lab Results - Last 24 Hours (Table) 03/20/23 03/20/23 03/20/23 Range/Units 11:47 11:47 11:50 WBC 17.4 H (3.8-10.6) k/uL RBC 2.50 L (4.30-5.90) m/uL Hgb 7.7 L (13.0-17.5) gm/dL Hct 23.4 L (39.0-53.0) % RDW 17.8 H (11.5-15.5) % Plt Count 100 L (150-450) k/uL Neutrophils # 16.7 H (1.3-7.7) k/uL Lymphocytes # 0.3 L (1.0-4.8) k/uL ABG pH 7.19 L* (7.35-7.45) ABG pCO2 52 H (35-45) mmHg ABG pO2 110 H (83-108) mmHg ABG HCO3 20 L (21-25) mmol/L ABG O2 Saturation 97.9 H (94-97) % Potassium (3.5-5.1) mmol/L Carbon Dioxide (22-30) mmol/L BUN (9-20) mg/dL Creatinine (0.66-1.25) mg/dL Glucose (74-99) mg/dL POC Glucose (mg/dL) 224 H (70-110) mg/dL Calcium (8.4-10.2) mg/dL Phosphorus (2.5-4.5) mg/dL Total Protein (6.3-8.2) g/dL Albumin (3.5-5.0) g/dL 03/20/23 03/20/23 03/20/23 Range/Units 12:05 17:12 17:40 WBC 17.9 H (3.8-10.6) k/uL RBC 2.74 L (4.30-5.90) m/uL Hgb 8.2 L (13.0-17.5) gm/dL Hct 25.3 L (39.0-53.0) % RDW 17.6 H (11.5-15.5) % Plt Count 107 L (150-450) k/uL Neutrophils # 16.9 H (1.3-7.7) k/uL Lymphocytes # 0.4 L (1.0-4.8) k/uL ABG pH (7.35-7.45) ABG pCO2 (35-45) mmHg ABG pO2 (83-108) mmHg ABG HCO3 (21-25) mmol/L ABG O2 Saturation (94-97) % Potassium 5.3 H (3.5-5.1) mmol/L Carbon Dioxide (22-30) mmol/L BUN (9-20) mg/dL Creatinine (0.66-1.25) mg/dL Glucose (74-99) mg/dL POC Glucose (mg/dL) 200 H (70-110) mg/dL Calcium (8.4-10.2) mg/dL Phosphorus (2.5-4.5) mg/dL Total Protein (6.3-8.2) g/dL Albumin (3.5-5.0) g/dL 03/20/23 03/20/23 03/20/23 Range/Units 18:23 18:24 20:28 WBC (3.8-10.6) k/uL RBC (4.30-5.90) m/uL Hgb (13.0-17.5) gm/dL Hct (39.0-53.0) % RDW (11.5-15.5) % Plt Count (150-450) k/uL Neutrophils # (1.3-7.7) k/uL Lymphocytes # (1.0-4.8) k/uL ABG pH 7.27 L (7.35-7.45) ABG pCO2 (35-45) mmHg ABG pO2 153 H (83-108) mmHg ABG HCO3 20 L (21-25) mmol/L ABG O2 Saturation 98.7 H (94-97) % Potassium (3.5-5.1) mmol/L Carbon Dioxide 18 L (22-30) mmol/L BUN 107 H* (9-20) mg/dL Creatinine 3.24 H (0.66-1.25) mg/dL Glucose 191 H (74-99) mg/dL POC Glucose (mg/dL) 200 H (70-110) mg/dL Calcium 7.0 L (8.4-10.2) mg/dL Phosphorus 10.4 H* (2.5-4.5) mg/dL Total Protein 5.1 L (6.3-8.2) g/dL Albumin 2.6 L (3.5-5.0) g/dL 03/20/23 03/20/23 03/21/23 Range/Units 23:19 23:53 00:40 WBC 15.9 H (3.8-10.6) k/uL RBC 2.54 L (4.30-5.90) m/uL Hgb 8.1 L (13.0-17.5) gm/dL Hct 23.4 L (39.0-53.0) % RDW 17.7 H (11.5-15.5) % Plt Count 105 L (150-450) k/uL Neutrophils # 15.2 H (1.3-7.7) k/uL Lymphocytes # 0.4 L (1.0-4.8) k/uL ABG pH (7.35-7.45) ABG pCO2 (35-45) mmHg ABG pO2 (83-108) mmHg ABG HCO3 (21-25) mmol/L ABG O2 Saturation (94-97) % Potassium (3.5-5.1) mmol/L Carbon Dioxide (22-30) mmol/L BUN (9-20) mg/dL Creatinine (0.66-1.25) mg/dL Glucose (74-99) mg/dL POC Glucose (mg/dL) 240 H 226 H (70-110) mg/dL Calcium (8.4-10.2) mg/dL Phosphorus (2.5-4.5) mg/dL Total Protein (6.3-8.2) g/dL Albumin (3.5-5.0) g/dL 03/21/23 03/21/23 03/21/23 Range/Units 05:28 05:30 05:30 WBC 14.0 H (3.8-10.6) k/uL RBC 2.45 L (4.30-5.90) m/uL Hgb 7.7 L (13.0-17.5) gm/dL Hct 22.7 L (39.0-53.0) % RDW 17.7 H (11.5-15.5) % Plt Count 106 L (150-450) k/uL Neutrophils # 13.2 H (1.3-7.7) k/uL Lymphocytes # 0.4 L (1.0-4.8) k/uL ABG pH (7.35-7.45) ABG pCO2 (35-45) mmHg ABG pO2 (83-108) mmHg ABG HCO3 (21-25) mmol/L ABG O2 Saturation (94-97) % Potassium (3.5-5.1) mmol/L Carbon Dioxide 16 L (22-30) mmol/L BUN 116 H* (9-20) mg/dL Creatinine 3.21 H (0.66-1.25) mg/dL Glucose 234 H (74-99) mg/dL POC Glucose (mg/dL) 269 H (70-110) mg/dL Calcium 6.6 L (8.4-10.2) mg/dL Phosphorus (2.5-4.5) mg/dL Total Protein (6.3-8.2) g/dL Albumin (3.5-5.0) g/dL 03/21/23 Range/Units 06:30 WBC (3.8-10.6) k/uL RBC (4.30-5.90) m/uL Hgb (13.0-17.5) gm/dL Hct (39.0-53.0) % RDW (11.5-15.5) % Plt Count (150-450) k/uL Neutrophils # (1.3-7.7) k/uL Lymphocytes # (1.0-4.8) k/uL ABG pH 7.25 L (7.35-7.45) ABG pCO2 (35-45) mmHg ABG pO2 125 H (83-108) mmHg ABG HCO3 19 L (21-25) mmol/L ABG O2 Saturation 98.7 H (94-97) % Potassium (3.5-5.1) mmol/L Carbon Dioxide (22-30) mmol/L BUN (9-20) mg/dL Creatinine (0.66-1.25) mg/dL Glucose (74-99) mg/dL POC Glucose (mg/dL) (70-110) mg/dL Calcium (8.4-10.2) mg/dL Phosphorus (2.5-4.5) mg/dL Total Protein (6.3-8.2) g/dL Albumin (3.5-5.0) g/dL
--- NOTE | 2023-03-21 10:00 | P.PN ---
Subjective Patient is seen in follow-up for acute kidney injury on chronic kidney disease. Started on hemodialysis 03/20/2023. Tolerated 2 L ultrafiltration yesterday. On IV Lasix. Urine output about 40-70 mL an hour. Intubated. Vital signs are stable. General: Resting in bed. HEENT: Intubated. LUNGS: Scattered rhonchi. HEART: Rate and Rhythm are regular. ABDOMEN: No distention. EXTREMITITES: 1+ edema. Objective - Vital Signs Vital signs: Vital Signs Temp 98 F 03/21/23 08:00 Pulse 60 03/21/23 09:00 Resp 20 03/21/23 09:00 BP 129/61 03/21/23 02:30 Pulse Ox 96 03/21/23 09:00 FiO2 60 03/21/23 08:23 Intake & Output 03/20/23 03/21/23 03/21/23 18:59 06:59 18:59 Intake Total 493.220 596.694 94.745 Output Total 790 585 165 Balance -296.780 11.694 -70.255 Weight 116.2 kg Intake: IV 156 43 29 NS TKO 120 10 20 Pressure bag 36 33 9 Intake, IV Titration 337.220 553.694 65.745 Amount Clevidipine Butyrate 25 0.200 16.533 mg In Empty Bag 1 bag @ 1 MG/HR 2 mls/hr IV .Q24H [facility] Rx#:[id number] Piperacillin-Tazobactam 3 125 .375 gm In Sodium Chloride 0.9% 100 ml @ 25 mls/hr IVPB Q12HR [facility] Rx #:[id number] propofoL 1,000 mg In 337.020 412.161 65.745 Empty Bag 1 bag @ 15 MCG/ KG/MIN 9.945 mls/hr IV . Q10H4M [facility] Rx#:[id number] Output: Gastric Drainage 150 Urine 640 585 165 Other: Voiding Method Indwelling Catheter Indwelling Catheter Indwelling Catheter ABP, PAP, CO, CI - Last Documented Arterial Blood Pressure 151/46 - Labs CBC & Chem 7: 03/21/23 05:30 03/21/23 05:30 Labs: Abnormal Lab Results - Last 24 Hours (Table) 03/20/23 03/20/23 03/20/23 Range/Units 11:47 11:47 11:50 WBC 17.4 H (3.8-10.6) k/uL RBC 2.50 L (4.30-5.90) m/uL Hgb 7.7 L (13.0-17.5) gm/dL Hct 23.4 L (39.0-53.0) % RDW 17.8 H (11.5-15.5) % Plt Count 100 L (150-450) k/uL Neutrophils # 16.7 H (1.3-7.7) k/uL Lymphocytes # 0.3 L (1.0-4.8) k/uL ABG pH 7.19 L* (7.35-7.45) ABG pCO2 52 H (35-45) mmHg ABG pO2 110 H (83-108) mmHg ABG HCO3 20 L (21-25) mmol/L ABG O2 Saturation 97.9 H (94-97) % Potassium (3.5-5.1) mmol/L Carbon Dioxide (22-30) mmol/L BUN (9-20) mg/dL Creatinine (0.66-1.25) mg/dL Glucose (74-99) mg/dL POC Glucose (mg/dL) 224 H (70-110) mg/dL Calcium (8.4-10.2) mg/dL Phosphorus (2.5-4.5) mg/dL Total Protein (6.3-8.2) g/dL Albumin (3.5-5.0) g/dL 03/20/23 03/20/23 03/20/23 Range/Units 12:05 17:12 17:40 WBC 17.9 H (3.8-10.6) k/uL RBC 2.74 L (4.30-5.90) m/uL Hgb 8.2 L (13.0-17.5) gm/dL Hct 25.3 L (39.0-53.0) % RDW 17.6 H (11.5-15.5) % Plt Count 107 L (150-450) k/uL Neutrophils # 16.9 H (1.3-7.7) k/uL Lymphocytes # 0.4 L (1.0-4.8) k/uL ABG pH (7.35-7.45) ABG pCO2 (35-45) mmHg ABG pO2 (83-108) mmHg ABG HCO3 (21-25) mmol/L ABG O2 Saturation (94-97) % Potassium 5.3 H (3.5-5.1) mmol/L Carbon Dioxide (22-30) mmol/L BUN (9-20) mg/dL Creatinine (0.66-1.25) mg/dL Glucose (74-99) mg/dL POC Glucose (mg/dL) 200 H (70-110) mg/dL Calcium (8.4-10.2) mg/dL Phosphorus (2.5-4.5) mg/dL Total Protein (6.3-8.2) g/dL Albumin (3.5-5.0) g/dL 03/20/23 03/20/23 03/20/23 Range/Units 18:23 18:24 20:28 WBC (3.8-10.6) k/uL RBC (4.30-5.90) m/uL Hgb (13.0-17.5) gm/dL Hct (39.0-53.0) % RDW (11.5-15.5) % Plt Count (150-450) k/uL Neutrophils # (1.3-7.7) k/uL Lymphocytes # (1.0-4.8) k/uL ABG pH 7.27 L (7.35-7.45) ABG pCO2 (35-45) mmHg ABG pO2 153 H (83-108) mmHg ABG HCO3 20 L (21-25) mmol/L ABG O2 Saturation 98.7 H (94-97) % Potassium (3.5-5.1) mmol/L Carbon Dioxide 18 L (22-30) mmol/L BUN 107 H* (9-20) mg/dL Creatinine 3.24 H (0.66-1.25) mg/dL Glucose 191 H (74-99) mg/dL POC Glucose (mg/dL) 200 H (70-110) mg/dL Calcium 7.0 L (8.4-10.2) mg/dL Phosphorus 10.4 H* (2.5-4.5) mg/dL Total Protein 5.1 L (6.3-8.2) g/dL Albumin 2.6 L (3.5-5.0) g/dL 03/20/23 03/20/23 03/21/23 Range/Units 23:19 23:53 00:40 WBC 15.9 H (3.8-10.6) k/uL RBC 2.54 L (4.30-5.90) m/uL Hgb 8.1 L (13.0-17.5) gm/dL Hct 23.4 L (39.0-53.0) % RDW 17.7 H (11.5-15.5) % Plt Count 105 L (150-450) k/uL Neutrophils # 15.2 H (1.3-7.7) k/uL Lymphocytes # 0.4 L (1.0-4.8) k/uL ABG pH (7.35-7.45) ABG pCO2 (35-45) mmHg ABG pO2 (83-108) mmHg ABG HCO3 (21-25) mmol/L ABG O2 Saturation (94-97) % Potassium (3.5-5.1) mmol/L Carbon Dioxide (22-30) mmol/L BUN (9-20) mg/dL Creatinine (0.66-1.25) mg/dL Glucose (74-99) mg/dL POC Glucose (mg/dL) 240 H 226 H (70-110) mg/dL Calcium (8.4-10.2) mg/dL Phosphorus (2.5-4.5) mg/dL Total Protein (6.3-8.2) g/dL Albumin (3.5-5.0) g/dL 03/21/23 03/21/23 03/21/23 Range/Units 05:28 05:30 05:30 WBC 14.0 H (3.8-10.6) k/uL RBC 2.45 L (4.30-5.90) m/uL Hgb 7.7 L (13.0-17.5) gm/dL Hct 22.7 L (39.0-53.0) % RDW 17.7 H (11.5-15.5) % Plt Count 106 L (150-450) k/uL Neutrophils # 13.2 H (1.3-7.7) k/uL Lymphocytes # 0.4 L (1.0-4.8) k/uL ABG pH (7.35-7.45) ABG pCO2 (35-45) mmHg ABG pO2 (83-108) mmHg ABG HCO3 (21-25) mmol/L ABG O2 Saturation (94-97) % Potassium (3.5-5.1) mmol/L Carbon Dioxide 16 L (22-30) mmol/L BUN 116 H* (9-20) mg/dL Creatinine 3.21 H (0.66-1.25) mg/dL Glucose 234 H (74-99) mg/dL POC Glucose (mg/dL) 269 H (70-110) mg/dL Calcium 6.6 L (8.4-10.2) mg/dL Phosphorus (2.5-4.5) mg/dL Total Protein (6.3-8.2) g/dL Albumin (3.5-5.0) g/dL 03/21/23 Range/Units 06:30 WBC (3.8-10.6) k/uL RBC (4.30-5.90) m/uL Hgb (13.0-17.5) gm/dL Hct (39.0-53.0) % RDW (11.5-15.5) % Plt Count (150-450) k/uL Neutrophils # (1.3-7.7) k/uL Lymphocytes # (1.0-4.8) k/uL ABG pH 7.25 L (7.35-7.45) ABG pCO2 (35-45) mmHg ABG pO2 125 H (83-108) mmHg ABG HCO3 19 L (21-25) mmol/L ABG O2 Saturation 98.7 H (94-97) % Potassium (3.5-5.1) mmol/L Carbon Dioxide (22-30) mmol/L BUN (9-20) mg/dL Creatinine (0.66-1.25) mg/dL Glucose (74-99) mg/dL POC Glucose (mg/dL) (70-110) mg/dL Calcium (8.4-10.2) mg/dL Phosphorus (2.5-4.5) mg/dL Total Protein (6.3-8.2) g/dL Albumin (3.5-5.0) g/dL Assessment and Plan Plan: Assessment: 1. Acute kidney injury secondary to ATN secondary to hemodynamic instability and infection. Nonoliguric. No hydronephrosis noted on kidney ultrasound. Right kidney wasn't properly visualized. Left kidney is atrophic. Disproportionately elevated BUN secondary to anemia as well as steroids. Started on hemodialysis 03/20/2023. 2. Chronic kidney disease stage IV with baseline creatinine 2-2.5. 3. Hypernatremia from free water diuresis and lack of oral water intake. Status post D5W. Improved. 4. Hypokalemia from diuresis. No hyperkalemic. 5. Acute hypoxic respiratory failure secondary to pneumonia and volume overload. Status post bronchoscopy 03/15/2023. 6. Pneumonia on antibiotics. 7. Acute blood loss anemia. Status post blood transfusion this admission. Also received IV DDAVP. Heparin drip stopped. On Aranesp. Hemoglobin 7.7 this morning. 8. Hyperphosphatemia secondary to acute kidney injury. Plan: Second treatment of hemodialysis today and third treatment tomorrow. Maintain IV Lasix. Add PhosLo. Avoid nephrotoxins. Wean FiO2. Continue to monitor renal function and urine output. Case discussed with washer cutter.
[2023-03-21 12:09] LABS: ABG Base Excess 0.1 mmol/L; ABG HCO3 25 mmol/L (21-25); ABG Oxygen Saturation 98.1 % (94-97); ABG PCO2 42 mmHg (35-45); ABG PH 7.38 (7.35-7.45); ABG PO2 107 mmHg (83-108); ABG TCO2 27 mmol/L (19-24)
[2023-03-21 12:12] LABS: Glucose,Whole Blood 165 mg/dL (70-110)
[2023-03-21] MEDS: hydrALAZINE HCL 50 MG TAB PO SCH (12:14)
[2023-03-21] MEDS: hydrALAZINE HCL 20 MG/ML 1 ML VIAL IVP PRN (12:14)
[2023-03-21] MEDS: CALCIUM ACETATE 667 MG TAB PO SCH ×2 (12:17→15:47)
--- NOTE | 2023-03-21 12:26 | P.PN ---
Subjective Progress Note Date: 03/21/23 77 years old male with past medical history of Diabetes Mellitus, Hyperlipidemia, Hypertension, Osteoarthritis, cervical spine decompression and fusion surgery. PCP is Dr. Blount patient was sent from our with for shortness of breathwith hypoxia and saturating 81. 82% on 4 L oxygen via nasal cannula. Right upper extremity PICC line patient last time he was discharged on daptomycin every 48 hours 14 d ays.patient finished treatment and his lower extremity cellulitis is improving patient currently on BiPAP, with oxygen saturation 97%. Afebrile. Labs showed leukocytosis of 14,000, hemoglobin 7.5 creatinine is elevated at 2.8 which is at baseline of 2.2-3.0 Troponin is elevated at 0.15, 0.13.proBNP 4460. TSH is low at 0.09 Urine analysis is not suspicious for infection. chest x-ray: confluent bilateral Multifocal airspace opacities patient is a started on ceftriaxone, Zithromax IV Lasix 03/13/2023 Patient is seen and evaluated in room at bedside; remains on BiPAP; patient went into respiratory distress during the night; stat ABGs were completed which revealed a pO2 of 103 and pCO2 of 41 - Patient is currently on BiPAP with FiO2 of 100% -- Vital signs are reviewed and remained stable Blood work reveals a WBC of 16.8, hemoglobin of 7, hematocrit 22.5 and platelet count of 182, sodium 154 cultures and 2.1, BUN/creatinine of 104/3.15 and blood glucose of 240 --Chest x-ray reveals diffuse bilateral infiltrates possibly diffuse pneumonia versus interstitial edema or acute respiratory distress syndrome - Patient remains on IV heparin for possible PE; V/Q scan cannot be completed due to unstable respiratory status -- Patient has been placed on IV fluids in form of D5 water for hypernatremia; we will monitor sodium levels closely Prognosis remains guarded 03/14/2023 Patient is seen and evaluated in room at bedside; transferred to ICU; patient had been agitated and restless and noncompliant with BiPAP resulting in worsening respiratory status -- Patient has been placed on Precedex and remains on BiPAP with settings of 16/8 and 80% Vital signs are reviewed with temperature of 98.4, pulse 59, respirations 17 and blood pressure of 164/68 White count is 22.4, hemoglobin 7.4, hematocrit 24.5, with a normal platelet count. Sodium 157, potassium 2.8, chlorides 119, CO2 26, BUN 109, and creatinine 2.73. Chest x-ray continues to show bilateral airspace disease, which may be on the basis of fluid, pneumonia, or acute respiratory distress syndrome. The patient's currently on IV heparin empirically. The patient's also receiving Zosyn. Heparin can be discontinued once PE is ruled out 03/15. Patient seen and examined. Labs done this morning showed WBC 18.9, hemoglobin 7.2, platelet count 179, sodium 156, potassium 2.9, BUN 97, creatinine 2.86. Patient was intubated overnight, currently on mechanical ventilation. Currently on propofol. 03/16. Patient seen and examined. Patient continues to be intubated. Hemoglobin this morning is 6.8. Patient getting 1 unit of packed red blood cell. Blood sugars were elevated, currently on insulin drip 03/17/2023 Patient is currently intubated and on mechanical ventilator, assist control. Patient is also sedated with propofol. Chest x-ray today showed similar bilateral airspace disease with lower lung predominance. Patient had bronchoscopy done on 03/15/2023 showed no growth so far. Patient is being continued on Zosyn. Patient is on IV hydration. Patient is also on insulin drip for better blood sugar control. Laboratory data showed sodium 143 potassium 4.2 chloride 109 bicarb is 23 BUN 111 and creatinine 3.26 blood sugar 120, WBC 17.7 hemoglobin 7.5 and platelets 138. 03/18/2023 Patient remained on mechanical ventilator. Assist-control and PEEP increased to 12 with FiO2 50%. Chest x-ray showed stable lower lobe pulmonary infiltrates. ABG showed pH of 7.34, PCO2 41 and PO2 112. BAL cultures have been negative. Patient is being current Zosyn. Laboratory data showed WBC 16.8 hemoglobin 7.5 and platelets 112 BUN 119 and creatinine 3.5 bicarb is 20 blood sugar is 129. Calcium 7.2. IV fluids down to KVO. Pulmonary, nephrology is on board. 03/19/23: Patient seen and evaluated and bedside patient remains intubated, sedated. On mechanical ventilator. Blood work reviewed, noted to have anemia, 1 unit of packed RBC given 03/20/2023: Patient seen and evaluated, and remains intubated, on mechanical ventilator, on propofol. Blood work reviewed hemoglobin remained stable, potassium of 25.5, nephrology following plan for hemodialysis today axis already in place 03/21/23: Patient remains intubated, sedated with propofol. Hemodialysis access in groin. Second session of hemodialysis today plan to remove 2 L, first session of hemodialysis was 03/20 and 2 L were removed. Patient followed by [facility], critical care, cardiology. Continue IV antibiotic with Zosyn. Continue to monitor H&H Objective - Vital Signs Vital signs: Vital Signs Temp 97.6 F 03/21/23 12:03 Pulse 71 03/21/23 12:03 Resp 28 H 03/21/23 12:03 BP 179/50 03/21/23 12:03 Pulse Ox 97 03/21/23 12:03 FiO2 60 03/21/23 12:03 Intake & Output 03/20/23 03/21/23 03/21/23 18:59 06:59 18:59 Intake Total 493.220 596.694 520.745 Output Total 963 369 0027 Balance -296.780 11.694 -2104.255 Weight 116.2 kg Intake: IV 156 43 55 NS TKO 120 10 40 Pressure bag 36 33 15 Intake, IV Titration 337.220 553.694 65.745 Amount Clevidipine Butyrate 25 0.200 16.533 mg In Empty Bag 1 bag @ 1 MG/HR 2 mls/hr IV .Q24H [facility] Rx#:[id number] Piperacillin-Tazobactam 3 125 .375 gm In Sodium Chloride 0.9% 100 ml @ 25 mls/hr IVPB Q12HR [facility] Rx #:[id number] propofoL 1,000 mg In 337.020 412.161 65.745 Empty Bag 1 bag @ 15 MCG/ KG/MIN 9.945 mls/hr IV . Q10H4M [facility] Rx#:[id number] Hemodialysis 400 Output: Gastric Drainage 150 Urine 640 585 225 Hemodialysis 2400 Other: Voiding Method Indwelling Catheter Indwelling Catheter Indwelling Catheter ABP, PAP, CO, CI - Last Documented Arterial Blood Pressure 154/48 - Exam PHYSICAL EXAMINATION: GENERAL: The patient is intubated, orogastric tube in place, Meneses cath in place, groin hemodialysis access in place HEENT: Normal cuff leg, endotracheal tube and orogastric tube in place CARDIOVASCULAR: S1 and S2 present PULMONARY: Decreased breath sounds bilaterally, intubated on ventilator ABDOMEN: Soft, nontender, nondistended, normoactive bowel sounds. No palpable organomegaly. NEUROLOGICAL: Intubated and sedated neurological exam limited - Labs CBC & Chem 7: 03/21/23 05:30 03/21/23 05:30 Labs: Abnormal Lab Results - Last 24 Hours (Table) 03/20/23 03/20/23 03/20/23 Range/Units 11:50 12:05 17:12 WBC 17.4 H (3.8-10.6) k/uL RBC 2.50 L (4.30-5.90) m/uL Hgb 7.7 L (13.0-17.5) gm/dL Hct 23.4 L (39.0-53.0) % RDW 17.8 H (11.5-15.5) % Plt Count 100 L (150-450) k/uL Neutrophils # 16.7 H (1.3-7.7) k/uL Lymphocytes # 0.3 L (1.0-4.8) k/uL ABG pH (7.35-7.45) ABG pO2 (83-108) mmHg ABG HCO3 (21-25) mmol/L ABG Total CO2 (19-24) mmol/L ABG O2 Saturation (94-97) % Potassium 5.3 H (3.5-5.1) mmol/L Carbon Dioxide (22-30) mmol/L BUN (9-20) mg/dL Creatinine (0.66-1.25) mg/dL Glucose (74-99) mg/dL POC Glucose (mg/dL) 200 H (70-110) mg/dL Calcium (8.4-10.2) mg/dL Phosphorus (2.5-4.5) mg/dL Total Protein (6.3-8.2) g/dL Albumin (3.5-5.0) g/dL 03/20/23 03/20/23 03/20/23 Range/Units 17:40 18:23 18:24 WBC 17.9 H (3.8-10.6) k/uL RBC 2.74 L (4.30-5.90) m/uL Hgb 8.2 L (13.0-17.5) gm/dL Hct 25.3 L (39.0-53.0) % RDW 17.6 H (11.5-15.5) % Plt Count 107 L (150-450) k/uL Neutrophils # 16.9 H (1.3-7.7) k/uL Lymphocytes # 0.4 L (1.0-4.8) k/uL ABG pH 7.27 L (7.35-7.45) ABG pO2 153 H (83-108) mmHg ABG HCO3 20 L (21-25) mmol/L ABG Total CO2 (19-24) mmol/L ABG O2 Saturation 98.7 H (94-97) % Potassium (3.5-5.1) mmol/L Carbon Dioxide 18 L (22-30) mmol/L BUN 107 H* (9-20) mg/dL Creatinine 3.24 H (0.66-1.25) mg/dL Glucose 191 H (74-99) mg/dL POC Glucose (mg/dL) (70-110) mg/dL Calcium 7.0 L (8.4-10.2) mg/dL Phosphorus 10.4 H* (2.5-4.5) mg/dL Total Protein 5.1 L (6.3-8.2) g/dL Albumin 2.6 L (3.5-5.0) g/dL 03/20/23 03/20/23 03/20/23 Range/Units 20:28 23:19 23:53 WBC (3.8-10.6) k/uL RBC (4.30-5.90) m/uL Hgb (13.0-17.5) gm/dL Hct (39.0-53.0) % RDW (11.5-15.5) % Plt Count (150-450) k/uL Neutrophils # (1.3-7.7) k/uL Lymphocytes # (1.0-4.8) k/uL ABG pH (7.35-7.45) ABG pO2 (83-108) mmHg ABG HCO3 (21-25) mmol/L ABG Total CO2 (19-24) mmol/L ABG O2 Saturation (94-97) % Potassium (3.5-5.1) mmol/L Carbon Dioxide (22-30) mmol/L BUN (9-20) mg/dL Creatinine (0.66-1.25) mg/dL Glucose (74-99) mg/dL POC Glucose (mg/dL) 200 H 240 H 226 H (70-110) mg/dL Calcium (8.4-10.2) mg/dL Phosphorus (2.5-4.5) mg/dL Total Protein (6.3-8.2) g/dL Albumin (3.5-5.0) g/dL 03/21/23 03/21/23 03/21/23 Range/Units 00:40 05:28 05:30 WBC 15.9 H (3.8-10.6) k/uL RBC 2.54 L (4.30-5.90) m/uL Hgb 8.1 L (13.0-17.5) gm/dL Hct 23.4 L (39.0-53.0) % RDW 17.7 H (11.5-15.5) % Plt Count 105 L (150-450) k/uL Neutrophils # 15.2 H (1.3-7.7) k/uL Lymphocytes # 0.4 L (1.0-4.8) k/uL ABG pH (7.35-7.45) ABG pO2 (83-108) mmHg ABG HCO3 (21-25) mmol/L ABG Total CO2 (19-24) mmol/L ABG O2 Saturation (94-97) % Potassium (3.5-5.1) mmol/L Carbon Dioxide 16 L (22-30) mmol/L BUN 116 H* (9-20) mg/dL Creatinine 3.21 H (0.66-1.25) mg/dL Glucose 234 H (74-99) mg/dL POC Glucose (mg/dL) 269 H (70-110) mg/dL Calcium 6.6 L (8.4-10.2) mg/dL Phosphorus (2.5-4.5) mg/dL Total Protein (6.3-8.2) g/dL Albumin (3.5-5.0) g/dL 03/21/23 03/21/23 03/21/23 Range/Units 05:30 06:30 12:05 WBC 14.0 H (3.8-10.6) k/uL RBC 2.45 L (4.30-5.90) m/uL Hgb 7.7 L (13.0-17.5) gm/dL Hct 22.7 L (39.0-53.0) % RDW 17.7 H (11.5-15.5) % Plt Count 106 L (150-450) k/uL Neutrophils # 13.2 H (1.3-7.7) k/uL Lymphocytes # 0.4 L (1.0-4.8) k/uL ABG pH 7.25 L (7.35-7.45) ABG pO2 125 H (83-108) mmHg ABG HCO3 19 L (21-25) mmol/L ABG Total CO2 27 H (19-24) mmol/L ABG O2 Saturation 98.7 H 98.1 H (94-97) % Potassium (3.5-5.1) mmol/L Carbon Dioxide (22-30) mmol/L BUN (9-20) mg/dL Creatinine (0.66-1.25) mg/dL Glucose (74-99) mg/dL POC Glucose (mg/dL) (70-110) mg/dL Calcium (8.4-10.2) mg/dL Phosphorus (2.5-4.5) mg/dL Total Protein (6.3-8.2) g/dL Albumin (3.5-5.0) g/dL 03/21/23 Range/Units 12:10 WBC (3.8-10.6) k/uL RBC (4.30-5.90) m/uL Hgb (13.0-17.5) gm/dL Hct (39.0-53.0) % RDW (11.5-15.5) % Plt Count (150-450) k/uL Neutrophils # (1.3-7.7) k/uL Lymphocytes # (1.0-4.8) k/uL ABG pH (7.35-7.45) ABG pO2 (83-108) mmHg ABG HCO3 (21-25) mmol/L ABG Total CO2 (19-24) mmol/L ABG O2 Saturation (94-97) % Potassium (3.5-5.1) mmol/L Carbon Dioxide (22-30) mmol/L BUN (9-20) mg/dL Creatinine (0.66-1.25) mg/dL Glucose (74-99) mg/dL POC Glucose (mg/dL) 165 H (70-110) mg/dL Calcium (8.4-10.2) mg/dL Phosphorus (2.5-4.5) mg/dL Total Protein (6.3-8.2) g/dL Albumin (3.5-5.0) g/dL Assessment and Plan Assessment: Assessment and plan * Multifocal pneumonia * Acute hypoxic respiratory failure due to Pneumonia * Acute blood loss anemia suspect upper GI bleed and it for EGD * Elevated troponin * 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 Managed by ICU team * In regards to acute anemia patient has OG tube in place with dark brown residue. Continue patient on Protonix, general surgery consulted * In regards to elevated troponin seen by cardiology, continue medical management antiplatelet/anticoagulation on hold due to anemia * In regards to multifocal pneumonia continue Zosyn * In regards to worsening renal failure, nephrology following , continue hemodialysis second session today plan to remove 2 L * Prognosis remains poor
[2023-03-21] MEDS: DILTIAZEM 125 MG in SODIUM CHLORIDE 0.9% 100 ML IV SCH (13:20)
--- NOTE | 2023-03-21 14:10 | P.PN ---
Subjective Progress Note Date: 03/21/23 Principal diagnosis: Sepsis/pneumonia Patient is a 77-year-old male with a past medical his significant for diabetes mellitus hypertension hyperlipidemia prostate disorder presenting to the hospital on 03/07/2023 for evaluation of increasing shortness of breath weakness and mental status changes, subsequently did have worsening of his respiratory status requiring transfer the ICU ended up getting intubated, the patient is status post bronchoscopy completed on 03/15/2023, patient did got dialysis catheter on 03/20/2023 through and got dialyzed On today's evaluation that is 03/21/2023, the patient remains to be afebrile, the patient is hemodynamically stable and the patient FiO2 is stable at 60% , no significant purulent secretions through the ET or diarrhea or any other changes reported by the nursing staff Patient white count is down to 14.0, creatinine is 3.21 Objective - Vital Signs Vital signs: Vital Signs Temp 98 F 03/21/23 08:00 Pulse 62 03/21/23 10:00 Resp 30 H 03/21/23 10:00 BP 120/48 03/21/23 10:00 Pulse Ox 94 L 03/21/23 10:00 FiO2 60 03/21/23 08:23 Intake & Output 03/20/23 03/21/23 03/21/23 18:59 06:59 18:59 Intake Total 493.220 596.694 107.745 Output Total 790 585 215 Balance -296.780 11.694 -107.255 Weight 116.2 kg Intake: IV 156 43 42 NS TKO 120 10 30 Pressure bag 36 33 12 Intake, IV Titration 337.220 553.694 65.745 Amount Clevidipine Butyrate 25 0.200 16.533 mg In Empty Bag 1 bag @ 1 MG/HR 2 mls/hr IV .Q24H [facility] Rx#:[id number] Piperacillin-Tazobactam 3 125 .375 gm In Sodium Chloride 0.9% 100 ml @ 25 mls/hr IVPB Q12HR [facility] Rx #:[id number] propofoL 1,000 mg In 337.020 412.161 65.745 Empty Bag 1 bag @ 15 MCG/ KG/MIN 9.945 mls/hr IV . Q10H4M [facility] Rx#:[id number] Output: Gastric Drainage 150 Urine 640 585 215 Other: Voiding Method Indwelling Catheter Indwelling Catheter Indwelling Catheter ABP, PAP, CO, CI - Last Documented Arterial Blood Pressure 159/49 - Exam GENERAL DESCRIPTION: An elderly male intubated on the vent in no distress RESPIRATORY SYSTEM: Unlabored breathing , decreased breath sounds at bases HEART: S1 S2 regular rate and rhythm , ABDOMEN: Soft , no tenderness EXTREMITIES: No edema feet - Labs CBC & Chem 7: 03/21/23 05:30 03/21/23 05:30 Labs: Abnormal Lab Results - Last 24 Hours (Table) 03/20/23 03/20/23 03/20/23 Range/Units 11:47 11:47 11:50 WBC 17.4 H (3.8-10.6) k/uL RBC 2.50 L (4.30-5.90) m/uL Hgb 7.7 L (13.0-17.5) gm/dL Hct 23.4 L (39.0-53.0) % RDW 17.8 H (11.5-15.5) % Plt Count 100 L (150-450) k/uL Neutrophils # 16.7 H (1.3-7.7) k/uL Lymphocytes # 0.3 L (1.0-4.8) k/uL ABG pH 7.19 L* (7.35-7.45) ABG pCO2 52 H (35-45) mmHg ABG pO2 110 H (83-108) mmHg ABG HCO3 20 L (21-25) mmol/L ABG O2 Saturation 97.9 H (94-97) % Potassium (3.5-5.1) mmol/L Carbon Dioxide (22-30) mmol/L BUN (9-20) mg/dL Creatinine (0.66-1.25) mg/dL Glucose (74-99) mg/dL POC Glucose (mg/dL) 224 H (70-110) mg/dL Calcium (8.4-10.2) mg/dL Phosphorus (2.5-4.5) mg/dL Total Protein (6.3-8.2) g/dL Albumin (3.5-5.0) g/dL 03/20/23 03/20/23 03/20/23 Range/Units 12:05 17:12 17:40 WBC 17.9 H (3.8-10.6) k/uL RBC 2.74 L (4.30-5.90) m/uL Hgb 8.2 L (13.0-17.5) gm/dL Hct 25.3 L (39.0-53.0) % RDW 17.6 H (11.5-15.5) % Plt Count 107 L (150-450) k/uL Neutrophils # 16.9 H (1.3-7.7) k/uL Lymphocytes # 0.4 L (1.0-4.8) k/uL ABG pH (7.35-7.45) ABG pCO2 (35-45) mmHg ABG pO2 (83-108) mmHg ABG HCO3 (21-25) mmol/L ABG O2 Saturation (94-97) % Potassium 5.3 H (3.5-5.1) mmol/L Carbon Dioxide (22-30) mmol/L BUN (9-20) mg/dL Creatinine (0.66-1.25) mg/dL Glucose (74-99) mg/dL POC Glucose (mg/dL) 200 H (70-110) mg/dL Calcium (8.4-10.2) mg/dL Phosphorus (2.5-4.5) mg/dL Total Protein (6.3-8.2) g/dL Albumin (3.5-5.0) g/dL 03/20/23 03/20/23 03/20/23 Range/Units 18:23 18:24 20:28 WBC (3.8-10.6) k/uL RBC (4.30-5.90) m/uL Hgb (13.0-17.5) gm/dL Hct (39.0-53.0) % RDW (11.5-15.5) % Plt Count (150-450) k/uL Neutrophils # (1.3-7.7) k/uL Lymphocytes # (1.0-4.8) k/uL ABG pH 7.27 L (7.35-7.45) ABG pCO2 (35-45) mmHg ABG pO2 153 H (83-108) mmHg ABG HCO3 20 L (21-25) mmol/L ABG O2 Saturation 98.7 H (94-97) % Potassium (3.5-5.1) mmol/L Carbon Dioxide 18 L (22-30) mmol/L BUN 107 H* (9-20) mg/dL Creatinine 3.24 H (0.66-1.25) mg/dL Glucose 191 H (74-99) mg/dL POC Glucose (mg/dL) 200 H (70-110) mg/dL Calcium 7.0 L (8.4-10.2) mg/dL Phosphorus 10.4 H* (2.5-4.5) mg/dL Total Protein 5.1 L (6.3-8.2) g/dL Albumin 2.6 L (3.5-5.0) g/dL 03/20/23 03/20/23 03/21/23 Range/Units 23:19 23:53 00:40 WBC 15.9 H (3.8-10.6) k/uL RBC 2.54 L (4.30-5.90) m/uL Hgb 8.1 L (13.0-17.5) gm/dL Hct 23.4 L (39.0-53.0) % RDW 17.7 H (11.5-15.5) % Plt Count 105 L (150-450) k/uL Neutrophils # 15.2 H (1.3-7.7) k/uL Lymphocytes # 0.4 L (1.0-4.8) k/uL ABG pH (7.35-7.45) ABG pCO2 (35-45) mmHg ABG pO2 (83-108) mmHg ABG HCO3 (21-25) mmol/L ABG O2 Saturation (94-97) % Potassium (3.5-5.1) mmol/L Carbon Dioxide (22-30) mmol/L BUN (9-20) mg/dL Creatinine (0.66-1.25) mg/dL Glucose (74-99) mg/dL POC Glucose (mg/dL) 240 H 226 H (70-110) mg/dL Calcium (8.4-10.2) mg/dL Phosphorus (2.5-4.5) mg/dL Total Protein (6.3-8.2) g/dL Albumin (3.5-5.0) g/dL 03/21/23 03/21/23 03/21/23 Range/Units 05:28 05:30 05:30 WBC 14.0 H (3.8-10.6) k/uL RBC 2.45 L (4.30-5.90) m/uL Hgb 7.7 L (13.0-17.5) gm/dL Hct 22.7 L (39.0-53.0) % RDW 17.7 H (11.5-15.5) % Plt Count 106 L (150-450) k/uL Neutrophils # 13.2 H (1.3-7.7) k/uL Lymphocytes # 0.4 L (1.0-4.8) k/uL ABG pH (7.35-7.45) ABG pCO2 (35-45) mmHg ABG pO2 (83-108) mmHg ABG HCO3 (21-25) mmol/L ABG O2 Saturation (94-97) % Potassium (3.5-5.1) mmol/L Carbon Dioxide 16 L (22-30) mmol/L BUN 116 H* (9-20) mg/dL Creatinine 3.21 H (0.66-1.25) mg/dL Glucose 234 H (74-99) mg/dL POC Glucose (mg/dL) 269 H (70-110) mg/dL Calcium 6.6 L (8.4-10.2) mg/dL Phosphorus (2.5-4.5) mg/dL Total Protein (6.3-8.2) g/dL Albumin (3.5-5.0) g/dL 03/21/23 Range/Units 06:30 WBC (3.8-10.6) k/uL RBC (4.30-5.90) m/uL Hgb (13.0-17.5) gm/dL Hct (39.0-53.0) % RDW (11.5-15.5) % Plt Count (150-450) k/uL Neutrophils # (1.3-7.7) k/uL Lymphocytes # (1.0-4.8) k/uL ABG pH 7.25 L (7.35-7.45) ABG pCO2 (35-45) mmHg ABG pO2 125 H (83-108) mmHg ABG HCO3 19 L (21-25) mmol/L ABG O2 Saturation 98.7 H (94-97) % Potassium (3.5-5.1) mmol/L Carbon Dioxide (22-30) mmol/L BUN (9-20) mg/dL Creatinine (0.66-1.25) mg/dL Glucose (74-99) mg/dL POC Glucose (mg/dL) (70-110) mg/dL Calcium (8.4-10.2) mg/dL Phosphorus (2.5-4.5) mg/dL Total Protein (6.3-8.2) g/dL Albumin (3.5-5.0) g/dL Assessment and Plan (1) Pneumonia Current Visit: No Status: Acute Code(s): J18.9 - PNEUMONIA, UNSPECIFIED ORGANISM SNOMED Code(s): 443573895 Plan: 1patient with acute respiratory failure which is multifactorial in this patient with initial presentation of sepsis possible pneumonia and also a component of fluid overload in this patient with evidence of renal failure 2-patient to continue with Zosyn and monitor his clinical course closely Dictation was produced using [employer] dictation software. please excuse any gr ammatical, word or spelling errors. Time with Patient: Less than 30
[2023-03-21 17:44] LABS: Glucose,Whole Blood 194 mg/dL (70-110)
[2023-03-21] MEDS: CLEVIDIPINE BUTYRATE 25 MG in EMPTY BAG 1 BAG IV SCH (18:46)
[2023-03-21] MEDS: INSULIN DETEMIR (LEVEMIR) 100 UNIT/ML SYR SQ SCH (20:14)
[2023-03-21 20:18] LABS: Glucose,Whole Blood 181 mg/dL (70-110)
[2023-03-22] MEDS: IPRATROPIUM-ALBUTEROL 3 ML NEB INHALATION SCH ×6 (00:06→19:55)
[2023-03-22 00:17] LABS: Glucose,Whole Blood 209 mg/dL (70-110)
[2023-03-22] MEDS: INSULIN ASPART (NovoLOG) 100 UNIT/ML VIAL SQ SCH ×4 (00:20→17:56)
[2023-03-22] MEDS: HYDROmorphone 1 MG/ML 1 ML SYRINGE IVP PRN ×5 (00:21→22:49)
[2023-03-22 04:28] LABS: Anisocytosis Slight; Basophils % (A) 0 %; Eosinophils % (A) 0 %; HCT 22.1 % (39.0-53.0); HGB 7.2 gm/dL (13.0-17.5); Hypochromasia Slight; Lymphocytes # (A) 0.4 k/uL (1.0-4.8); Lymphocytes % (A) 3 %; MCH 30.1 pg (25.0-35.0); MCHC 32.8 g/dL (31.0-37.0); MCV 91.8 fL (80.0-100.0); Mean Platelet Volume 15.3; Monocytes # (A) 0.3 k/uL (0-1.0); Monocytes % (A) 2 %; Neutrophils # (A) 12.7 k/uL (1.3-7.7); Neutrophils % (A) 94 %; Platelet Count 101 k/uL (150-450); RBC 2.41 m/uL (4.30-5.90); RDW 17.5 % (11.5-15.5); WBC 13.5 k/uL (3.8-10.6)
[2023-03-22 04:44] LABS: African American GFR (CKD) 27 (>60 ml/min/1.73 sqM); Anion Gap 15 mmol/L; Blood Urea Nitrogen 85 mg/dL (9-20); Calcium 6.5 mg/dL (8.4-10.2); Carbon Dioxide 19 mmol/L (22-30); Chloride 102 mmol/L (98-107); Glucose 186 mg/dL (74-99); Non-African American GFR(CKD) 23 (>60 ml/min/1.73 sqM); Potassium 4.3 mmol/L (3.5-5.1); Sodium 136 mmol/L (137-145)
[2023-03-22 06:07] LABS: Glucose,Whole Blood 213 mg/dL (70-110)
[2023-03-22 06:10] LABS: ABG Base Excess -3.1 mmol/L; ABG HCO3 23 mmol/L (21-25); ABG Oxygen Saturation 98.5 % (94-97); ABG PCO2 43 mmHg (35-45); ABG PH 7.33 (7.35-7.45); ABG PO2 111 mmHg (83-108); ABG TCO2 24 mmol/L (19-24); Allen Test Performed? Yes
[2023-03-22] MEDS: DILTIAZEM 125 MG in SODIUM CHLORIDE 0.9% 100 ML IV SCH (06:12)
[2023-03-22] MEDS: SODIUM CHLORIDE 0.9% 1,000 ML IV SCH (07:03)
[2023-03-22] MEDS: CALCIUM ACETATE 667 MG TAB PO SCH ×3 (07:05→17:46)
--- NOTE | 2023-03-22 07:23 | XR ---
EXAMINATION TYPE: XR chest 1V portable DATE OF EXAM: 03/22/2023 5:19 AM CLINICAL INDICATION:Male, 77 years old with history of Tube placement; COMPARISON: Chest radiographs from 03/21/2023. TECHNIQUE: XR chest 1V portable Frontal view of the chest. FINDINGS: Lungs/Pleura: Multifocal airspace opacities. No evidence of pneumothorax or pleural effusion. Pulmonary vascularity: Unremarkable. Heart/mediastinum: Cardiomediastinal silhouette is prominent in size. Musculoskeletal: No acute osseous pathology. Other findings: None Lines/Tubes: Endotracheal tube with distal tip 5.4 cm above the sierra. Nasogastric tube with its distal tip and side-port projecting under the diaphragm. IMPRESSION: Multifocal airspace opacities correlate for pneumonia versus pulmonary vascular congestion.
[2023-03-22] MEDS: PIPERACILLIN-TAZOBACTAM 3.375 GM in SODIUM CHLORIDE 0.9% 100 ML IVPB SCH ×2 (08:47→21:06)
[2023-03-22] MEDS: LEVOTHYROXINE IVP 100 MCG/5 ML VIAL IV SCH (08:49)
[2023-03-22] MEDS: PANTOPRAZOLE 40 MG/10 ML VIAL IVP SCH ×2 (08:50→21:06)
[2023-03-22] MEDS: CHLORHEXIDINE GLUCONATE 15 ML CUP MUCOUS MEM SCH ×2 (08:50→21:06)
[2023-03-22] MEDS: methylPREDNISolone SOD SUCCI 40 MG/ML 1 ML VIAL IV SCH ×2 (08:50→21:06)
[2023-03-22] MEDS: hydrALAZINE HCL 50 MG TAB PO SCH ×2 (08:50→17:46)
[2023-03-22] MEDS: amLODIPine 2.5 MG TAB PO SCH (08:50)
[2023-03-22] MEDS: FUROSEMIDE 10 MG/ML 10 ML VIAL IV SCH ×2 (08:50→21:06)
[2023-03-22] MEDS: metOLazone 2.5 MG TAB PO SCH (08:50)
[2023-03-22] MEDS: HYDROPHILIC CREAM 180 GM TUBE TOPICAL SCH (08:51)
[2023-03-22] MEDS: BUDESONIDE 1 MG/2 ML NEBU INHALATION SCH ×2 (09:01→19:55)
[2023-03-22] MEDS: FORMOTEROL FUMARATE 20 MCG/2 ML NEBU INHALATION SCH ×2 (09:01→19:55)
--- NOTE | 2023-03-22 11:19 | P.PN ---
Subjective Progress Note Date: 03/22/23 77 years old male with past medical history of Diabetes Mellitus, Hyperlipidemia, Hypertension, Osteoarthritis, cervical spine decompression and fusion surgery. PCP is Dr. Blount patient was sent from our with for shortness of breathwith hypoxia and saturating 81. 82% on 4 L oxygen via nasal cannula. Right upper extremity PICC line patient last time he was discharged on daptomycin every 48 hours 14 d ays.patient finished treatment and his lower extremity cellulitis is improving patient currently on BiPAP, with oxygen saturation 97%. Afebrile. Labs showed leukocytosis of 14,000, hemoglobin 7.5 creatinine is elevated at 2.8 which is at baseline of 2.2-3.0 Troponin is elevated at 0.15, 0.13.proBNP 4460. TSH is low at 0.09 Urine analysis is not suspicious for infection. chest x-ray: confluent bilateral Multifocal airspace opacities patient is a started on ceftriaxone, Zithromax IV Lasix 03/13/2023 Patient is seen and evaluated in room at bedside; remains on BiPAP; patient went into respiratory distress during the night; stat ABGs were completed which revealed a pO2 of 103 and pCO2 of 41 - Patient is currently on BiPAP with FiO2 of 100% -- Vital signs are reviewed and remained stable Blood work reveals a WBC of 16.8, hemoglobin of 7, hematocrit 22.5 and platelet count of 182, sodium 154 cultures and 2.1, BUN/creatinine of 104/3.15 and blood glucose of 240 --Chest x-ray reveals diffuse bilateral infiltrates possibly diffuse pneumonia versus interstitial edema or acute respiratory distress syndrome - Patient remains on IV heparin for possible PE; V/Q scan cannot be completed due to unstable respiratory status -- Patient has been placed on IV fluids in form of D5 water for hypernatremia; we will monitor sodium levels closely Prognosis remains guarded 03/14/2023 Patient is seen and evaluated in room at bedside; transferred to ICU; patient had been agitated and restless and noncompliant with BiPAP resulting in worsening respiratory status -- Patient has been placed on Precedex and remains on BiPAP with settings of 16/8 and 80% Vital signs are reviewed with temperature of 98.4, pulse 59, respirations 17 and blood pressure of 164/68 White count is 22.4, hemoglobin 7.4, hematocrit 24.5, with a normal platelet count. Sodium 157, potassium 2.8, chlorides 119, CO2 26, BUN 109, and creatinine 2.73. Chest x-ray continues to show bilateral airspace disease, which may be on the basis of fluid, pneumonia, or acute respiratory distress syndrome. The patient's currently on IV heparin empirically. The patient's also receiving Zosyn. Heparin can be discontinued once PE is ruled out 03/15. Patient seen and examined. Labs done this morning showed WBC 18.9, hemoglobin 7.2, platelet count 179, sodium 156, potassium 2.9, BUN 97, creatinine 2.86. Patient was intubated overnight, currently on mechanical ventilation. Currently on propofol. 03/16. Patient seen and examined. Patient continues to be intubated. Hemoglobin this morning is 6.8. Patient getting 1 unit of packed red blood cell. Blood sugars were elevated, currently on insulin drip 03/17/2023 Patient is currently intubated and on mechanical ventilator, assist control. Patient is also sedated with propofol. Chest x-ray today showed similar bilateral airspace disease with lower lung predominance. Patient had bronchoscopy done on 03/15/2023 showed no growth so far. Patient is being continued on Zosyn. Patient is on IV hydration. Patient is also on insulin drip for better blood sugar control. Laboratory data showed sodium 143 potassium 4.2 chloride 109 bicarb is 23 BUN 111 and creatinine 3.26 blood sugar 120, WBC 17.7 hemoglobin 7.5 and platelets 138. 03/18/2023 Patient remained on mechanical ventilator. Assist-control and PEEP increased to 12 with FiO2 50%. Chest x-ray showed stable lower lobe pulmonary infiltrates. ABG showed pH of 7.34, PCO2 41 and PO2 112. BAL cultures have been negative. Patient is being current Zosyn. Laboratory data showed WBC 16.8 hemoglobin 7.5 and platelets 112 BUN 119 and creatinine 3.5 bicarb is 20 blood sugar is 129. Calcium 7.2. IV fluids down to KVO. Pulmonary, nephrology is on board. Dr Cruz Assumed care 03/19/23: Patient seen and evaluated and bedside patient remains intubated, sedated. On mechanical ventilator. Blood work reviewed, noted to have anemia, 1 unit of packed RBC given 03/20/2023: Patient seen and evaluated, and remains intubated, on mechanical ventilator, on propofol. Blood work reviewed hemoglobin remained stable, potassium of 25.5, nephrology following plan for hemodialysis today axis already in place 03/21/23: Patient remains intubated, sedated with propofol. Hemodialysis access in groin. Second session of hemodialysis today plan to remove 2 L, first session of hemodialysis was 03/20 and 2 L were removed. Patient followed by nephrology, critical care, cardiology. Continue IV antibiotic with Zosyn. Cont inue to monitor H&H 03/22/23: Patient seen and evaluated bedside, patient intubated, sedated with pro pofol. Patient on IV Cardizem for paroxysmal tachycardia. Underwent hemodialysis third session today. Output from oral gastric tube is decreased Objective - Vital Signs Vital signs: Vital Signs Temp 97.8 F 03/22/23 08:00 Pulse 111 H 03/22/23 11:00 Resp 25 H 03/22/23 11:00 BP 142/60 03/22/23 10:00 Pulse Ox 91 L 03/22/23 11:00 FiO2 55 03/22/23 11:00 Intake & Output 03/21/23 03/22/23 03/22/23 18:59 06:59 18:59 Intake Total 785.338 654.868 243.4 Output Total 2835 585 240 Balance -2049.662 69.868 3.4 Weight 115.3 kg Intake: IV 146 46 55 NS TKO 110 10 40 Pressure bag 36 36 15 Intake, IV Titration 239.338 608.868 188.4 Amount Diltiazem 125 mg In 124.333 Sodium Chloride 0.9% 100 ml @ 5 MG/HR 5 mls/hr IV .Q24H [facility] Rx#:[id number] Piperacillin-Tazobactam 3 100 100 .375 gm In Sodium Chloride 0.9% 100 ml @ 25 mls/hr IVPB Q12HR [facility] Rx #:[id number] propofoL 1,000 mg In 239.338 384.535 88.4 Empty Bag 1 bag @ 15 MCG/ KG/MIN 9.945 mls/hr IV . Q10H4M [facility] Rx#:[id number] Tube Feeding 0 Hemodialysis 400 Output: Urine 435 585 240 Hemodialysis 2400 Other: Voiding Method Indwelling Catheter Indwelling Catheter Indwelling Catheter ABP, PAP, CO, CI - Last Documented Arterial Blood Pressure 117/54 - Exam PHYSICAL EXAMINATION: GENERAL: The patient is intubated, orogastric tube in place, Meneses cath in place, groin hemodialysis access in place HEENT: Normal cuff leg, endotracheal tube and orogastric tube in place CARDIOVASCULAR: S1 and S2 present PULMONARY: Decreased breath sounds bilaterally, intubated on ventilator ABDOMEN: Soft, nontender, nondistended, normoactive bowel sounds. No palpable organomegaly. NEUROLOGICAL: Intubated and sedated neurological exam limited - Labs CBC & Chem 7: 03/22/23 04:10 03/22/23 04:10 Labs: Abnormal Lab Results - Last 24 Hours (Table) 03/21/23 03/21/23 03/21/23 Range/Units 12:05 12:10 17:42 WBC (3.8-10.6) k/uL RBC (4.30-5.90) m/uL Hgb (13.0-17.5) gm/dL Hct (39.0-53.0) % RDW (11.5-15.5) % Plt Count (150-450) k/uL Neutrophils # (1.3-7.7) k/uL Lymphocytes # (1.0-4.8) k/uL ABG pH (7.35-7.45) ABG pO2 (83-108) mmHg ABG Total CO2 27 H (19-24) mmol/L ABG O2 Saturation 98.1 H (94-97) % Sodium (137-145) mmol/L Carbon Dioxide (22-30) mmol/L BUN (9-20) mg/dL Creatinine (0.66-1.25) mg/dL Glucose (74-99) mg/dL POC Glucose (mg/dL) 165 H 194 H (70-110) mg/dL Calcium (8.4-10.2) mg/dL 03/21/23 03/22/23 03/22/23 Range/Units 20:15 00:15 04:10 WBC 13.5 H (3.8-10.6) k/uL RBC 2.41 L (4.30-5.90) m/uL Hgb 7.2 L (13.0-17.5) gm/dL Hct 22.1 L (39.0-53.0) % RDW 17.5 H (11.5-15.5) % Plt Count 101 L (150-450) k/uL Neutrophils # 12.7 H (1.3-7.7) k/uL Lymphocytes # 0.4 L (1.0-4.8) k/uL ABG pH (7.35-7.45) ABG pO2 (83-108) mmHg ABG Total CO2 (19-24) mmol/L ABG O2 Saturation (94-97) % Sodium (137-145) mmol/L Carbon Dioxide (22-30) mmol/L BUN (9-20) mg/dL Creatinine (0.66-1.25) mg/dL Glucose (74-99) mg/dL POC Glucose (mg/dL) 181 H 209 H (70-110) mg/dL Calcium (8.4-10.2) mg/dL 03/22/23 03/22/23 03/22/23 Range/Units 04:10 06:06 06:10 WBC (3.8-10.6) k/uL RBC (4.30-5.90) m/uL Hgb (13.0-17.5) gm/dL Hct (39.0-53.0) % RDW (11.5-15.5) % Plt Count (150-450) k/uL Neutrophils # (1.3-7.7) k/uL Lymphocytes # (1.0-4.8) k/uL ABG pH 7.33 L (7.35-7.45) ABG pO2 111 H (83-108) mmHg ABG Total CO2 (19-24) mmol/L ABG O2 Saturation 98.5 H (94-97) % Sodium 136 L (137-145) mmol/L Carbon Dioxide 19 L (22-30) mmol/L BUN 85 H (9-20) mg/dL Creatinine 2.59 H (0.66-1.25) mg/dL Glucose 186 H (74-99) mg/dL POC Glucose (mg/dL) 213 H (70-110) mg/dL Calcium 6.5 L (8.4-10.2) mg/dL Microbiology - Last 24 Hours (Table) 03/16/23 04:05 Blood Culture - Final Blood Assessment and Plan Assessment: Assessment and plan * Multifocal pneumonia * Acute hypoxic respiratory failure due to Pneumonia * Acute blood loss anemia suspect upper GI bleed and it for EGD * Elevated troponin * 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 Managed by ICU team * In regards to acute anemia patient has OG tube in place with dark brown residue. Continue patient on Protonix, general surgery consulted * In regards to elevated troponin seen by cardiology, continue medical management antiplatelet/anticoagulation on hold due to anemia * In regards to multifocal pneumonia continue Zosyn * In regards to worsening renal failure, nephrology following , continue hemodialysis third session 2.2 L plannned to be removed * Prognosis remains poor
[2023-03-22 11:21] LABS: Glucose,Whole Blood 137 mg/dL (70-110)
--- NOTE | 2023-03-22 11:21 | P.PN ---
Subjective Patient is seen for follow-up for acute kidney injury and top of chronic kidney disease. Started hemodialysis on 03/20/2023 for ATN and volume overload. Urine output at 45-60 mL per hour Currently seen on hemodialysis Patient remains on the vent Maintained on Cardizem drip at 5 mg per hour. Patient developed A. fib with heart rate about 98 -100/m during dialysis. Goal UF at about 2.5 L. Objective - Vital Signs Vital signs: Vital Signs Temp 97.8 F 03/22/23 08:00 Pulse 111 H 03/22/23 11:00 Resp 25 H 03/22/23 11:00 BP 142/60 03/22/23 10:00 Pulse Ox 91 L 03/22/23 11:00 FiO2 55 03/22/23 11:00 Intake & Output 03/21/23 03/22/23 03/22/23 18:59 06:59 18:59 Intake Total 785.338 654.868 243.4 Output Total 2835 585 240 Balance -2049.662 69.868 3.4 Weight 115.3 kg Intake: IV 146 46 55 NS TKO 110 10 40 Pressure bag 36 36 15 Intake, IV Titration 239.338 608.868 188.4 Amount Diltiazem 125 mg In 124.333 Sodium Chloride 0.9% 100 ml @ 5 MG/HR 5 mls/hr IV .Q24H [facility] Rx#:[id number] Piperacillin-Tazobactam 3 100 100 .375 gm In Sodium Chloride 0.9% 100 ml @ 25 mls/hr IVPB Q12HR [facility] Rx #:[id number] propofoL 1,000 mg In 239.338 384.535 88.4 Empty Bag 1 bag @ 15 MCG/ KG/MIN 9.945 mls/hr IV . Q10H4M [facility] Rx#:[id number] Tube Feeding 0 Hemodialysis 400 Output: Urine 435 585 240 Hemodialysis 2400 Other: Voiding Method Indwelling Catheter Indwelling Catheter Indwelling Catheter ABP, PAP, CO, CI - Last Documented Arterial Blood Pressure 117/54 - Exam Patient is sedated and on the vent Examination of the heart shows tachycardia, A. fib Examination of the lungs bilateral breath sounds are heard Abdomen is soft Examination lower extremity shows edema 2+ bilaterally - Labs CBC & Chem 7: 03/22/23 04:10 03/22/23 04:10 Labs: Abnormal Lab Results - Last 24 Hours (Table) 03/21/23 03/21/23 03/21/23 Range/Units 12:05 12:10 17:42 WBC (3.8-10.6) k/uL RBC (4.30-5.90) m/uL Hgb (13.0-17.5) gm/dL Hct (39.0-53.0) % RDW (11.5-15.5) % Plt Count (150-450) k/uL Neutrophils # (1.3-7.7) k/uL Lymphocytes # (1.0-4.8) k/uL ABG pH (7.35-7.45) ABG pO2 (83-108) mmHg ABG Total CO2 27 H (19-24) mmol/L ABG O2 Saturation 98.1 H (94-97) % Sodium (137-145) mmol/L Carbon Dioxide (22-30) mmol/L BUN (9-20) mg/dL Creatinine (0.66-1.25) mg/dL Glucose (74-99) mg/dL POC Glucose (mg/dL) 165 H 194 H (70-110) mg/dL Calcium (8.4-10.2) mg/dL 03/21/23 03/22/23 03/22/23 Range/Units 20:15 00:15 04:10 WBC 13.5 H (3.8-10.6) k/uL RBC 2.41 L (4.30-5.90) m/uL Hgb 7.2 L (13.0-17.5) gm/dL Hct 22.1 L (39.0-53.0) % RDW 17.5 H (11.5-15.5) % Plt Count 101 L (150-450) k/uL Neutrophils # 12.7 H (1.3-7.7) k/uL Lymphocytes # 0.4 L (1.0-4.8) k/uL ABG pH (7.35-7.45) ABG pO2 (83-108) mmHg ABG Total CO2 (19-24) mmol/L ABG O2 Saturation (94-97) % Sodium (137-145) mmol/L Carbon Dioxide (22-30) mmol/L BUN (9-20) mg/dL Creatinine (0.66-1.25) mg/dL Glucose (74-99) mg/dL POC Glucose (mg/dL) 181 H 209 H (70-110) mg/dL Calcium (8.4-10.2) mg/dL 03/22/23 03/22/23 03/22/23 Range/Units 04:10 06:06 06:10 WBC (3.8-10.6) k/uL RBC (4.30-5.90) m/uL Hgb (13.0-17.5) gm/dL Hct (39.0-53.0) % RDW (11.5-15.5) % Plt Count (150-450) k/uL Neutrophils # (1.3-7.7) k/uL Lymphocytes # (1.0-4.8) k/uL ABG pH 7.33 L (7.35-7.45) ABG pO2 111 H (83-108) mmHg ABG Total CO2 (19-24) mmol/L ABG O2 Saturation 98.5 H (94-97) % Sodium 136 L (137-145) mmol/L Carbon Dioxide 19 L (22-30) mmol/L BUN 85 H (9-20) mg/dL Creatinine 2.59 H (0.66-1.25) mg/dL Glucose 186 H (74-99) mg/dL POC Glucose (mg/dL) 213 H (70-110) mg/dL Calcium 6.5 L (8.4-10.2) mg/dL Microbiology - Last 24 Hours (Table) 03/16/23 04:05 Blood Culture - Final Blood Assessment and Plan Assessment: 1. Acute kidney injury secondary to ATN secondary to hemodynamic instability and infection. Nonoliguric. No hydronephrosis noted on kidney ultrasound. Right kidney wasn't properly visualized. Left kidney is atrophic. Disproportionately elevated BUN secondary to anemia as well as steroids. Started on hemodialysis 03/20/2023. 2. Chronic kidney disease stage IV with baseline creatinine 2-2.5. 3. Hypernatremia from free water diuresis and lack of oral water intake. Status post D5W. Improved. 4. Hypokalemia from diuresis. No hyperkalemic. 5. Acute hypoxic respiratory failure secondary to pneumonia and volume overload. Status post bronchoscopy 03/15/2023. 6. Pneumonia on antibiotics. 7. Acute blood loss anemia. Status post blood transfusion this admission. Also received IV DDAVP. Heparin drip stopped. On Aranesp. Hemoglobin 7.7 this morning. 8. Hyperphosphatemia secondary to acute kidney injury. Plan: Hemodialysis today with goal UF of about 2-2.5 L. Decrease UF is A. fib worsens with heart rate about 130.
--- NOTE | 2023-03-22 14:21 | P.PN ---
Subjective Progress Note Date: 03/22/23 Principal diagnosis: Acute hypoxic respiratory failure, suspect healthcare acquired pneumonia and ARDS. On today's evaluation of 03/23/2023, I'm seeing the patient in the intensive care unit. At this point in time, the patient is intubated on a mechanical ventilator. Overnight, the patient became acutely hypoxic and more short of breath and he developed diffuse but the pulmonary infiltrates consistent with pneumonia and based on that the patient was intubated and placed on a mechanical ventilator. Note that this patient is 77 years of age. He has diabetes mellitus type 2, chronic kidney disease, hypothyroidism, COPD, hyperlipidemia and hypertension. He was also recently treated for cellulitis of lower extremity, discharged to [facility] for IV antibiotics through a PICC line in his right upper extremity and he received and completed the course of daptomycin. Discharged home to be readmitted for shortness of breath to our hospital on 03/08/2023. Note that the patient was being supported with BiPAP as various pressures. His proBNP level was elevated. His echocardiograms was recent showed a preserved LV function without any significant abnormalities. He was gi fransisco bronchodilators. He was given IV Solu-Medrol. He was given IV Lasix. Another dose of Lasix was given to him by the nurse practitioner at 2:30 AM this morning. He has a Meneses catheter in place. Urine output is in order of 100 mL an hour. At this point in time, the patient remains on mechanical ventilator. He was quite a successful the mechanical ventilator and he was having frequent episodes of desaturation. He is on propofol running at 55 mcg/kg/m. I switched this patient's blood pressure control mode of mechanical ventilation and currently is on a pressure control of 12, rate of 26, PEEP of 12 with a FiO2 of 60%. His current pulse ox is 95%. He is on IV heparin and this was I believe initiated due to concerns of pulmonary embolism, on an empiric basis. The echoes at 18.9, hemoglobin is at 7.2, platelet count of 179, most recent blood gas showed a pH of 7.38 with a pCO2 of 43 and pO2 of 140. BUN is at 97 with a creatinine of 2.8, sodium level is at 156 and a potassium level is at 2.9. IV fluids are at KVO, 0.9. On 03/20/2023, I'm seeing the patient for a follow-up. Unfortunately, not a whole lot of progress since yesterday. He was started on diuretics yesterday and urine output remained insufficient and the patient remains in a positive fluid balance. At the same time, the patient continues to have dense consolidations of the lung bases bilaterally. The patient remains on a mechanical ventilator. The patient remains sedated on propofol which is running at 50 mcg/kg/m. He is on a pressure control mode of mechanical ventilation with a pressure control of 12, rate of 26, FiO2 of 60% with a PEEP of 12. Blood gas shows respiratory acidosis with a pH of 7.19 with a pCO2 of 52 and pO2 of 113. The patient's BUN is at 139, creatinine is higher compared to yesterday at 3.7. Sodium is at 140. The white cell count is currently at 17.7 which is improved compared to yesterday with a hemoglobin of 8.5 and a platelet count of 100 with is essentially stable. The patient remains on IV Zosyn. He is afebrile. The patient is currently nothing by mouth. He was having episodic drop in hemoglobin and he has received packed RBC transfusion and the last transfusion was yesterday. Hemoglobin currently stable. The output from the OG is 150 cc, coffee-ground/dark possibly indicating an upper GI bleed. He remains nothing by mouth. He remains on IV Protonix. No melanotic stools. Blood sugar control is adequate and the patient is currently on Levemir insulin. On 03/21/2023, the patient is essentially the same intubated on a mechanical ventilator. He was started hemodialysis yesterday. He received the first session of hemodialysis with 2 L of fluid removal and is going to have another session today. He has a right femoral triple-lumen catheter in place. He remains sedated on propofol which is currently running at 45 mcg/kg/m. His b lood pressure was noted to be elevated and the patient was started on Cleviprex strep which was subsequently discontinued. His calm and comfortable and symptoms of the mechanical ventilator. Is on a pressure control mode at a rate of 30, pressure of 16 cm of water and FiO2 of 60% with a PEEP of 12. Blood gas shows some improvement in his oxygenation. PH is at 7.25 with a pCO2 of 43 and pO2 125. Chest x-ray findings are essentially unchanged with dense consolidations bilaterally. Orotracheal tube is in a good location. He also has a orogastric tube in place and output from the stomach is quite minimal yet bloody and there is obvious coffee-ground material. No bright blood per rectum. No melanotic stools. His hemoglobin is dropped slightly is currently at 7.7. He is on no pressors for now. He remains nothing by mouth. Cardiac rhythm is sinus. Patient was reevaluated , remains intubated and mechanically ventilated, remains in the ICU, patient is on pressure control mode of mechanical ventilation, rate is set at 30 inspiratory time is 0.951, down to 0.80 FiO2 60% I cut it down to 55% PEEP remains high at 12 ABG showed a pO2 of 111 pCO2 43 pH of 7.33 patient remains on Cardizem for atrial fibrillation with RVR is also on propofol at 50 mcg/kg/m received hemodialysis on 03/20 and L were removed. Received 2 units of packed RBCs for hemoglobin of 7.2 continues to have some coffee-ground material and nasogastric tube, but we'll restart tube feeding. Chest x-ray continues to show bilateral diffuse interstitial infiltrates consistent with ARDS, underlying pneumonia or underlying pulmonary edema is not entirely ruled out, but I believe this is mostly noncardiogenic pulmonary edema is not improving much even with hemodialysis. WBC count of 15.5 hemoglobin 7.2 basic metabolic profile is relatively normal except for bicarb of 19 BUN of 85 creatinine 2.59 blood cultures sputum cultures and bronchial cultures are all negative. Objective - Vital Signs Vital signs: Vital Signs Temp 97.5 F L 03/22/23 12:00 Pulse 124 H 03/22/23 13:00 Resp 15 03/22/23 13:00 BP 142/60 03/22/23 12:00 Pulse Ox 92 L 03/22/23 13:00 FiO2 55 03/22/23 13:00 Intake & Output 03/21/23 03/22/23 03/22/23 18:59 06:59 18:59 Intake Total 785.338 654.868 369.4 Output Total 2835 585 350 Balance -2049.662 69.868 19.4 Weight 115.3 kg 115.3 kg Intake: IV 146 46 81 NS TKO 110 10 60 Pressure bag 36 36 21 Intake, IV Titration 239.338 608.868 288.4 Amount Diltiazem 125 mg In 124.333 Sodium Chloride 0.9% 100 ml @ 5 MG/HR 5 mls/hr IV .Q24H [facility]KO Rx#:[id number] Piperacillin-Tazobactam 3 100 100 .375 gm In Sodium Chloride 0.9% 100 ml @ 25 mls/hr IVPB Q12HR [facility] Rx #:[id number] propofoL 1,000 mg In 239.338 384.535 188.4 Empty Bag 1 bag @ 15 MCG/ KG/MIN 9.945 mls/hr IV . Q10H4M [facility]KO Rx#:[id number] Tube Feeding 0 Hemodialysis 400 Output: Urine 435 585 350 Hemodialysis 2400 Other: Voiding Method Indwelling Catheter Indwelling Catheter Indwelling Catheter ABP, PAP, CO, CI - Last Documented Arterial Blood Pressure 168/65 - Exam Physical Exam: Revealed 77-year-old male intubated and mechanically ventilated sedated on propofol in no distress Head: Atraumatic, normocephalic. Nasogastric tube is noted with dark black fluid noted in the nasogastric tube. Orogastric tube and endotracheal tube are intact. HEENT:[Neck is supple.] [No neck masses.] [No thyromegaly.] [No JVD.] Chest: [Scattered crackles and rhonchi noted bilaterally.] Cardiac Exam: [Normal S1 and S2, no S3 gallop, no murmur.] Abdomen: [Soft, nontender, no megaly, no rebound, no guarding, normal bowel sounds.] Extremities: [No clubbing, bipedal edema noted 2+. Neurological Exam: Not assess fully sedated on propofol Psychiatric: Could not be assessed fully sedated - Labs CBC & Chem 7: 03/22/23 04:10 03/22/23 04:10 Labs: Abnormal Lab Results - Last 24 Hours (Table) 03/21/23 03/21/23 03/22/23 Range/Units 17:42 20:15 00:15 WBC (3.8-10.6) k/uL RBC (4.30-5.90) m/uL Hgb (13.0-17.5) gm/dL Hct (39.0-53.0) % RDW (11.5-15.5) % Plt Count (150-450) k/uL Neutrophils # (1.3-7.7) k/uL Lymphocytes # (1.0-4.8) k/uL ABG pH (7.35-7.45) ABG pO2 (83-108) mmHg ABG O2 Saturation (94-97) % Sodium (137-145) mmol/L Carbon Dioxide (22-30) mmol/L BUN (9-20) mg/dL Creatinine (0.66-1.25) mg/dL Glucose (74-99) mg/dL POC Glucose (mg/dL) 194 H 181 H 209 H (70-110) mg/dL Calcium (8.4-10.2) mg/dL Phosphorus (2.5-4.5) mg/dL 03/22/23 03/22/23 03/22/23 Range/Units 04:10 04:10 06:06 WBC 13.5 H (3.8-10.6) k/uL RBC 2.41 L (4.30-5.90) m/uL Hgb 7.2 L (13.0-17.5) gm/dL Hct 22.1 L (39.0-53.0) % RDW 17.5 H (11.5-15.5) % Plt Count 101 L (150-450) k/uL Neutrophils # 12.7 H (1.3-7.7) k/uL Lymphocytes # 0.4 L (1.0-4.8) k/uL ABG pH (7.35-7.45) ABG pO2 (83-108) mmHg ABG O2 Saturation (94-97) % Sodium 136 L (137-145) mmol/L Carbon Dioxide 19 L (22-30) mmol/L BUN 85 H (9-20) mg/dL Creatinine 2.59 H (0.66-1.25) mg/dL Glucose 186 H (74-99) mg/dL POC Glucose (mg/dL) 213 H (70-110) mg/dL Calcium 6.5 L (8.4-10.2) mg/dL Phosphorus (2.5-4.5) mg/dL 03/22/23 03/22/23 03/22/23 Range/Units 06:10 10:49 11:20 WBC (3.8-10.6) k/uL RBC (4.30-5.90) m/uL Hgb (13.0-17.5) gm/dL Hct (39.0-53.0) % RDW (11.5-15.5) % Plt Count (150-450) k/uL Neutrophils # (1.3-7.7) k/uL Lymphocytes # (1.0-4.8) k/uL ABG pH 7.33 L (7.35-7.45) ABG pO2 111 H (83-108) mmHg ABG O2 Saturation 98.5 H (94-97) % Sodium (137-145) mmol/L Carbon Dioxide (22-30) mmol/L BUN (9-20) mg/dL Creatinine (0.66-1.25) mg/dL Glucose (74-99) mg/dL POC Glucose (mg/dL) 137 H (70-110) mg/dL Calcium (8.4-10.2) mg/dL Phosphorus 5.6 H (2.5-4.5) mg/dL Microbiology - Last 24 Hours (Table) 03/16/23 04:05 Blood Culture - Final Blood Assessment and Plan Assessment: Impression: Acute hypoxic respiratory failure, suspect healthcare acquired pneumonia, noncardiogenic pulmonary edema, ARDS. Acute on chronic kidney disease, patient is on hemodialysis, chest x-ray is not improving much in spite of hemodialysis Upper GI bleeding with episodic drop in hemoglobin will require blood transfusion Bilateral lower extremity edema and cellulitis Acute non-ST elevation myocardial infarction Anemia of chronic disease and possible some component of new onset GI bleeding History of stage III chronic kidney disease Type 2 diabetes with diabetic nephropathy Benign essential hypertension Hypothyroidism History of BPH Recommendation: Continue ventilatory support Continue pressure control mode of mechanical ventilation. Continue hemodialysis Continue antibiotics empirically Continue Cardizem for now patient had A. fib RVR, rate seems to be fairly well controlled with low dose of Cardizem Transfused as needed for hemoglobin below 7 Cultures are all nondiagnostic hence will continue empiric antibiotics r resume enteral feeding and nutritional support Continue to monitor urine output Continue to monitor renal functioning Will continue to follow. Patient remains critically ill, no work ready for any weaning or extubation. Critical care time is over 30 minutes Time with Patient: Greater than 30
--- NOTE | 2023-03-22 16:27 | P.PN ---
Subjective Progress Note Date: 03/22/23 CHIEF COMPLAINT: Respiratory failure, pneumonia HISTORY OF PRESENT ILLNESS: Patient remains intubated and mechanical ventilation in the ICU. Patient had maroon output O G-tube. This has improved. Did have a brown bowel movement today. Hemoglobin did drop from 7.7-7.2. Patient has required 2 units of blood during this admission. Lowest hemoglobin was 6.8. He does have history of chronic anemia. He is getting hemodialysis today. Afebrile. Mildly tachycardic PHYSICAL EXAM: VITAL SIGNS: Reviewed. GENERAL: no acute distress. ABDOMEN: Soft. Nondistended. Nontender. NEUROLOGIC: Intubated on mechanical ventilation ASSESSMENT: 1. Acute GI bleed likely upper GI bleed PLAN: -Patient scheduled for EGD and colonoscopy on , 03/25/[address] Moreno -Currently off blood thinners -He is receiving tube feeds for nutrition support -Continue IV Protonix -Continue to monitor for any signs or symptoms of bleeding -Continue to monitor hemoglobin Physician Eyewear Consultant note has been reviewed by physician. Signing provider agrees with the documented findings, assessment, and plan of care. Objective - Vital Signs Vital signs: Vital Signs Temp 97.5 F L 03/22/23 12:00 Pulse 124 H 03/22/23 13:00 Resp 15 03/22/23 13:00 BP 142/60 03/22/23 12:00 Pulse Ox 92 L 03/22/23 13:00 FiO2 55 03/22/23 13:00 Intake & Output 03/21/23 03/22/23 03/22/23 18:59 06:59 18:59 Intake Total 785.338 654.868 369.4 Output Total 2835 585 350 Balance -2049.662 69.868 19.4 Weight 115.3 kg 115.3 kg Intake: IV 146 46 81 NS TKO 110 10 60 Pressure bag 36 36 21 Intake, IV Titration 239.338 608.868 288.4 Amount Diltiazem 125 mg In 124.333 Sodium Chloride 0.9% 100 ml @ 5 MG/HR 5 mls/hr IV .Q24H [facility]KO Rx#:[id number] Piperacillin-Tazobactam 3 100 100 .375 gm In Sodium Chloride 0.9% 100 ml @ 25 mls/hr IVPB Q12HR [facility] Rx #:[id number] propofoL 1,000 mg In 239.338 384.535 188.4 Empty Bag 1 bag @ 15 MCG/ KG/MIN 9.945 mls/hr IV . Q10H4M [facility]KO Rx#:[id number] Tube Feeding 0 Hemodialysis 400 Output: Urine 435 585 350 Hemodialysis 2400 Other: Voiding Method Indwelling Catheter Indwelling Catheter Indwelling Catheter ABP, PAP, CO, CI - Last Documented Arterial Blood Pressure 168/65 - Labs CBC & Chem 7: 03/22/23 04:10 03/22/23 04:10 Labs: Abnormal Lab Results - Last 24 Hours (Table) 03/21/23 03/21/23 03/22/23 Range/Units 17:42 20:15 00:15 WBC (3.8-10.6) k/uL RBC (4.30-5.90) m/uL Hgb (13.0-17.5) gm/dL Hct (39.0-53.0) % RDW (11.5-15.5) % Plt Count (150-450) k/uL Neutrophils # (1.3-7.7) k/uL Lymphocytes # (1.0-4.8) k/uL ABG pH (7.35-7.45) ABG pO2 (83-108) mmHg ABG O2 Saturation (94-97) % Sodium (137-145) mmol/L Carbon Dioxide (22-30) mmol/L BUN (9-20) mg/dL Creatinine (0.66-1.25) mg/dL Glucose (74-99) mg/dL POC Glucose (mg/dL) 194 H 181 H 209 H (70-110) mg/dL Calcium (8.4-10.2) mg/dL Phosphorus (2.5-4.5) mg/dL 03/22/23 03/22/23 03/22/23 Range/Units 04:10 04:10 06:06 WBC 13.5 H (3.8-10.6) k/uL RBC 2.41 L (4.30-5.90) m/uL Hgb 7.2 L (13.0-17.5) gm/dL Hct 22.1 L (39.0-53.0) % RDW 17.5 H (11.5-15.5) % Plt Count 101 L (150-450) k/uL Neutrophils # 12.7 H (1.3-7.7) k/uL Lymphocytes # 0.4 L (1.0-4.8) k/uL ABG pH (7.35-7.45) ABG pO2 (83-108) mmHg ABG O2 Saturation (94-97) % Sodium 136 L (137-145) mmol/L Carbon Dioxide 19 L (22-30) mmol/L BUN 85 H (9-20) mg/dL Creatinine 2.59 H (0.66-1.25) mg/dL Glucose 186 H (74-99) mg/dL POC Glucose (mg/dL) 213 H (70-110) mg/dL Calcium 6.5 L (8.4-10.2) mg/dL Phosphorus (2.5-4.5) mg/dL 03/22/23 03/22/23 03/22/23 Range/Units 06:10 10:49 11:20 WBC (3.8-10.6) k/uL RBC (4.30-5.90) m/uL Hgb (13.0-17.5) gm/dL Hct (39.0-53.0) % RDW (11.5-15.5) % Plt Count (150-450) k/uL Neutrophils # (1.3-7.7) k/uL Lymphocytes # (1.0-4.8) k/uL ABG pH 7.33 L (7.35-7.45) ABG pO2 111 H (83-108) mmHg ABG O2 Saturation 98.5 H (94-97) % Sodium (137-145) mmol/L Carbon Dioxide (22-30) mmol/L BUN (9-20) mg/dL Creatinine (0.66-1.25) mg/dL Glucose (74-99) mg/dL POC Glucose (mg/dL) 137 H (70-110) mg/dL Calcium (8.4-10.2) mg/dL Phosphorus 5.6 H (2.5-4.5) mg/dL Microbiology - Last 24 Hours (Table) 03/16/23 04:05 Blood Culture - Final Blood
--- NOTE | 2023-03-22 17:30 | P.PN ---
Subjective Paroxysmal atrial fibrillation This is a 77-year-old gentleman with coronary artery disease and congestive heart failure as well as chronic kidney disease and multiple comorbid conditions was admitted to the hospital with change in mental status and he was diagnosed with pneumonia. We consulted to see the patient because of bradycardia and also because of atrial fibrillation. Last night the patient went into respiratory failure and he was intubated. 03/15/2023 The patient was seen and evaluated this morning. He is currently intubated and he is on mechanical ventilation. Hemodynamically he is a stable as a matter of fact he is hypertensive. He is bradycardic with heart rate in the 40s and he is in sinus bradycardia. At the same time work from this morning showed hypokalemia and he continues to be in renal failure with creatinine of 2.8. He is on heparin IV for oral anticoagulation with a chest x-ray showed bilateral infiltrate definitely concerning for pneumonia. March 162022 The patient was seen and evaluated this morning. He continues to be intubated on mechanical ventilation. Hemodynamically he is a stable beside bradycardia with heart rate in the 50s. His hemoglobin drop to below 7 and currently is in process of receiving blood. For that reason heparin was stopped. He is on Lasix per nephrology service. Creatinine is 3 this morning. Examination is remarkable for regular rhythm with diminished breathing sounds bilaterally and bilateral lower extremity 03/17/2023 The patient was seen and evaluated this morning. He continues to be intubated and on mechanical ventilation. Hemodynamically he is stable and currently he is not on any vasopressors. As a matter of fact the bradycardia has improved. He is bradycardic only intermittently. He is not on any AV ayan blockers at this point. Hemoglobin has been stable at 7.1 this morning. He receives 1 unit of packed RBC yesterday. He is not bleeding. He is not on any anticoagulation at this point which I would agree on to rule out any gastrointestinal bleeding etiology. The kidney function is worse today. He was on Lasix and that has a systolic. Examination is remarkable for diminished breathing sounds bilaterally and mild bilateral lower extremity edema March 182022 The patient was seen and evaluated this morning. He continues to be sedated and intubated on mechanical ventilation. Hemodynamically he continues to be stable and not on any vasopressors. He has been maintaining normal sinus mechanism was sinus bradycardia. Currently he is not on any beta zurdo agents. Hemoglobin this morning is 7.5. Currently he is not on any oral anticoagulation. No issues with the bleeding. We would continue holding any anticoagulation at this point the hemoglobin is more stable and to rule out any gastrointestinal bleeding related issues. 03/19/2023 The patient was seen and evaluated this morning. He continues to be intubated and he is currently on mechanical ventilation. Nothing changed from that standpoint overview. Unfortunately the hemoglobin dropped again and today is 6.9. He is in process of receiving some blood. For that reason we should continue holding on any oral anticoagulation at this point. Kidney function remains elevated. Nephrology service is on the case. He is maintaining normal sinus mechanism was sinus bradycardia. The examination is remarkable for bilateral lower extremities edema and bilateral upper extremities edema March [id number] The patient was seen and evaluated this morning. He is on dialysis at this point. Hemodynamically he seems to be stable. The hemoglobin is a stable as well. He has been maintaining normal sinus mechanism. Anticoagulation is on hold at this point. 03/22 Patient seen and examined. He received dialysis today with approximately 2 L output. Still making some urine with IV Lasix 60 mg twice a day. Blood pressure on the higher end and somewhat labile however more consistently in the 160s 180s. He has been in and out of atrial fibrillation and initially was restarted on Cardizem drip however did have some bradycardia and some pauses. O n review of this appears mostly sinus rhythm with PVCs and occasional blocked PACs. No obvious second-degree type II block. Therefore discussed restarting AV ayan blocking agents. We will switch him to carvedilol. He is started on tube feeds today. Able to be weaned somewhat on the oxygen down from 60% to 55%. Still has significant lower extremity and upper extremity edema. He has not been on anticoagulation secondary to anemia with patient receiving 2 blood transfusions and scheduled for a scope in approximately 2 days. No hematochezia or melena. The examination is remarkable for bilateral lower extremities edema and diminished breathing sounds bilaterally Assessment Change in mental status Pneumonia Paroxysmal atrial fibrillation. Currently the patient is in sinus rhythm Sinus bradycardia Severe electrolytes abnormalities Acute on chronic renal failure Multiple comorbid conditions Anemia Acute kidney injury Plan Patient without any evidence of high degree AV block however has been having bigeminy and PVCs. Patient may have underlying tachybradycardia syndrome however currently tachycardic with A. fib with mild RVR heart rates 120s to 130s and therefore we will start carvedilol given additional hypertension. Monitor response. If higher degree AV block happens a pacemaker would likely be indicated. May consider rhythm approach however does not appear to symptomatic from the A. fib. Continue with dialysis with fluid removal per nephrology. Still appears volume overloaded. No anticoagulation at this point secondary to anemia and concern of possible GI bleed. If scopes are normal may consider reinitiation. Objective - Vital Signs Vital signs: Vital Signs Temp 99.3 F 03/22/23 16:00 Pulse 113 H 03/22/23 16:03 Resp 32 H 03/22/23 16:03 BP 156/51 03/22/23 14:11 Pulse Ox 95 03/22/23 16:00 FiO2 55 03/22/23 16:00 Intake & Output 03/21/23 03/22/23 03/22/23 18:59 06:59 18:59 Intake Total 785.338 654.868 802.9 Output Total 2835 585 3275 Balance -2049.662 69.868 -2472.1 Weight 115.3 kg 115.3 kg Intake: IV 146 46 120 NS TKO 110 10 90 Pressure bag 36 36 30 Intake, IV Titration 239.338 608.868 332.9 Amount Diltiazem 125 mg In 124.333 44.5 Sodium Chloride 0.9% 100 ml @ 5 MG/HR 5 mls/hr IV .Q24H [facility] Rx#:[id number] Piperacillin-Tazobactam 3 100 100 .375 gm In Sodium Chloride 0.9% 100 ml @ 25 mls/hr IVPB Q12HR [facility] Rx #:[id number] propofoL 1,000 mg In 239.338 384.535 188.4 Empty Bag 1 bag @ 15 MCG/ KG/MIN 9.945 mls/hr IV . Q10H4M [facility] Rx#:[id number] Tube Feeding 20 Hemodialysis 400 300 Other 30 Output: Urine 435 585 475 Hemodialysis 2400 2800 Other: Voiding Method Indwelling Catheter Indwelling Catheter Indwelling Catheter ABP, PAP, CO, CI - Last Documented Arterial Blood Pressure 168/71 - Labs CBC & Chem 7: 03/22/23 04:10 03/22/23 04:10 Labs: Abnormal Lab Results - Last 24 Hours (Table) 03/21/23 03/21/23 03/22/23 Range/Units 17:42 20:15 00:15 WBC (3.8-10.6) k/uL RBC (4.30-5.90) m/uL Hgb (13.0-17.5) gm/dL Hct (39.0-53.0) % RDW (11.5-15.5) % Plt Count (150-450) k/uL Neutrophils # (1.3-7.7) k/uL Lymphocytes # (1.0-4.8) k/uL ABG pH (7.35-7.45) ABG pO2 (83-108) mmHg ABG O2 Saturation (94-97) % Sodium (137-145) mmol/L Carbon Dioxide (22-30) mmol/L BUN (9-20) mg/dL Creatinine (0.66-1.25) mg/dL Glucose (74-99) mg/dL POC Glucose (mg/dL) 194 H 181 H 209 H (70-110) mg/dL Calcium (8.4-10.2) mg/dL Phosphorus (2.5-4.5) mg/dL 03/22/23 03/22/23 03/22/23 Range/Units 04:10 04:10 06:06 WBC 13.5 H (3.8-10.6) k/uL RBC 2.41 L (4.30-5.90) m/uL Hgb 7.2 L (13.0-17.5) gm/dL Hct 22.1 L (39.0-53.0) % RDW 17.5 H (11.5-15.5) % Plt Count 101 L (150-450) k/uL Neutrophils # 12.7 H (1.3-7.7) k/uL Lymphocytes # 0.4 L (1.0-4.8) k/uL ABG pH (7.35-7.45) ABG pO2 (83-108) mmHg ABG O2 Saturation (94-97) % Sodium 136 L (137-145) mmol/L Carbon Dioxide 19 L (22-30) mmol/L BUN 85 H (9-20) mg/dL Creatinine 2.59 H (0.66-1.25) mg/dL Glucose 186 H (74-99) mg/dL POC Glucose (mg/dL) 213 H (70-110) mg/dL Calcium 6.5 L (8.4-10.2) mg/dL Phosphorus (2.5-4.5) mg/dL 03/22/23 03/22/23 03/22/23 Range/Units 06:10 10:49 11:20 WBC (3.8-10.6) k/uL RBC (4.30-5.90) m/uL Hgb (13.0-17.5) gm/dL Hct (39.0-53.0) % RDW (11.5-15.5) % Plt Count (150-450) k/uL Neutrophils # (1.3-7.7) k/uL Lymphocytes # (1.0-4.8) k/uL ABG pH 7.33 L (7.35-7.45) ABG pO2 111 H (83-108) mmHg ABG O2 Saturation 98.5 H (94-97) % Sodium (137-145) mmol/L Carbon Dioxide (22-30) mmol/L BUN (9-20) mg/dL Creatinine (0.66-1.25) mg/dL Glucose (74-99) mg/dL POC Glucose (mg/dL) 137 H (70-110) mg/dL Calcium (8.4-10.2) mg/dL Phosphorus 5.6 H (2.5-4.5) mg/dL
[2023-03-22] MEDS: carvediloL 6.25 MG TAB PO SCH (17:46)
[2023-03-22 17:57] LABS: Glucose,Whole Blood 184 mg/dL (70-110)
[2023-03-22] MEDS: CLEVIDIPINE BUTYRATE 25 MG in EMPTY BAG 1 BAG IV SCH (18:28)
[2023-03-22] MEDS: INSULIN DETEMIR (LEVEMIR) 100 UNIT/ML SYR SQ SCH (21:07)
[2023-03-23 00:03] LABS: Glucose,Whole Blood 200 mg/dL (70-110)
[2023-03-23] MEDS: INSULIN ASPART (NovoLOG) 100 UNIT/ML VIAL SQ SCH ×5 (00:10→23:51)
[2023-03-23] MEDS: IPRATROPIUM-ALBUTEROL 3 ML NEB INHALATION SCH ×6 (00:18→21:10)
[2023-03-23] MEDS: HYDROmorphone 1 MG/ML 1 ML SYRINGE IVP PRN ×6 (02:10→22:27)
[2023-03-23 05:14] LABS: African American GFR (CKD) 34 (>60 ml/min/1.73 sqM); Anion Gap 13 mmol/L; Blood Urea Nitrogen 61 mg/dL (9-20); Calcium 6.8 mg/dL (8.4-10.2); Carbon Dioxide 26 mmol/L (22-30); Chloride 95 mmol/L (98-107); Glucose 195 mg/dL (74-99); Non-African American GFR(CKD) 30 (>60 ml/min/1.73 sqM); Potassium 3.6 mmol/L (3.5-5.1); Sodium 134 mmol/L (137-145)
[2023-03-23 05:15] LABS: Anisocytosis Slight; HCT 22.7 % (39.0-53.0); HGB 7.5 gm/dL (13.0-17.5); Hypochromasia Slight; MCH 29.6 pg (25.0-35.0); MCHC 32.9 g/dL (31.0-37.0); MCV 90.1 fL (80.0-100.0); Mean Platelet Volume 15.1; Platelet Count 112 k/uL (150-450); RBC 2.52 m/uL (4.30-5.90); RDW 17.4 % (11.5-15.5); WBC 12.3 k/uL (3.8-10.6)
[2023-03-23 05:31] LABS: ABG Base Excess 0.2 mmol/L; ABG HCO3 25 mmol/L (21-25); ABG Oxygen Saturation 95.9 % (94-97); ABG PCO2 41 mmHg (35-45); ABG PH 7.39 (7.35-7.45); ABG PO2 75 mmHg (83-108); ABG TCO2 26 mmol/L (19-24); Allen Test Performed? Yes
[2023-03-23] MEDS ORDERED: Potassium Replacement Protocol 1 EACH MISC MISCELLANE PRN (05:41)
[2023-03-23 05:48] LABS: Glucose,Whole Blood 225 mg/dL (70-110)
[2023-03-23] MEDS ORDERED: POTASSIUM BICARBONATE/CIT AC 20 MEQ TABLET.EFF NG-TUBE SCH (06:00)
[2023-03-23] MEDS: carvediloL 6.25 MG TAB PO SCH (06:33)
[2023-03-23] MEDS: CALCIUM ACETATE 667 MG TAB PO SCH ×3 (06:33→16:55)
--- NOTE | 2023-03-23 07:02 | XR ---
EXAMINATION TYPE: XR chest 1V portable DATE OF EXAM: 03/23/2023 6:51 AM COMPARISON: Chest radiographs from 03/22/2023 TECHNIQUE: XR chest 1V portable Portable AP radiograph of the chest. CLINICAL INDICATION:Male, 77 years old with history of mechanical ventilation; FINDINGS: Lungs/Pleura: No pleural effusion pneumothorax. Similar multifocal patchy airspace opacities througho ut the lungs. Pulmonary vascularity: Unremarkable. Heart/mediastinum: Cardiomediastinal silhouette is prominent in size. Atherosclerotic calcifications are seen in the aorta. Musculoskeletal: No acute osseous pathology. Degenerative changes of the thoracic spine. Other findings: None Lines/Tubes: Stable endotracheal and enteric tubes. IMPRESSION: 1. Similar multifocal airspace opacities throughout the lungs concerning for pneumonia. 2. Stable support tubes.
[2023-03-23] MEDS: FORMOTEROL FUMARATE 20 MCG/2 ML NEBU INHALATION SCH ×2 (07:55→21:10)
[2023-03-23] MEDS: BUDESONIDE 1 MG/2 ML NEBU INHALATION SCH ×2 (07:55→21:09)
[2023-03-23] MEDS: SODIUM CHLORIDE 0.9% 1,000 ML IV SCH (07:58)
[2023-03-23] MEDS: PIPERACILLIN-TAZOBACTAM 3.375 GM in SODIUM CHLORIDE 0.9% 100 ML IVPB SCH ×2 (08:14→20:36)
[2023-03-23] MEDS: hydrALAZINE HCL 50 MG TAB PO SCH ×2 (08:14→16:55)
[2023-03-23] MEDS: metOLazone 2.5 MG TAB PO SCH (08:15)
[2023-03-23] MEDS: amLODIPine 2.5 MG TAB PO SCH (08:15)
[2023-03-23] MEDS: CHLORHEXIDINE GLUCONATE 15 ML CUP MUCOUS MEM SCH ×2 (09:38→20:37)
[2023-03-23] MEDS: PANTOPRAZOLE 40 MG/10 ML VIAL IVP SCH ×2 (09:39→20:36)
[2023-03-23] MEDS: LEVOTHYROXINE IVP 100 MCG/5 ML VIAL IV SCH (09:39)
[2023-03-23] MEDS: HYDROPHILIC CREAM 180 GM TUBE TOPICAL SCH (09:39)
[2023-03-23] MEDS: FUROSEMIDE 10 MG/ML 10 ML VIAL IV SCH ×2 (09:39→20:36)
[2023-03-23] MEDS: methylPREDNISolone SOD SUCCI 40 MG/ML 1 ML VIAL IV SCH ×2 (09:39→20:35)
[2023-03-23] MEDS ORDERED: LIDOCAINE 1% INJ 10MG/ML (30 ML VIAL-PF) SQ ONE (10:43)
--- NOTE | 2023-03-23 11:14 | XR ---
EXAMINATION TYPE: XR chest 1V confirm line [facility] DATE OF EXAM: 03/23/2023 11:05 AM COMPARISON: Chest radiographs from 03/23/2023 TECHNIQUE: XR chest 1V confirm line [facility] Portable AP radiograph of the chest. CLINICAL INDICATION:Male, 77 years old with history of PICC LINE; FINDINGS: Lungs/Pleura: No pleural effusion pneumothorax. Similar multifocal patchy airspace opacities througho ut the lungs. Pulmonary vascularity: Unremarkable. Heart/mediastinum: Cardiomediastinal silhouette is prominent in size. Atherosclerotic calcifications are seen in the aorta. Musculoskeletal: No acute osseous pathology. Degenerative changes of the thoracic spine. Partial visu alization of cervical fusion hardware. Other findings: None Lines/Tubes: Stable endotracheal and enteric tubes. Interval placement of left PICC line with distal tip terminati ng in the left brachiocephalic vein. IMPRESSION: 1. Interval placement of left PICC line with distal tip terminating in the left brachiocephalic vein . No pneumothorax. 2. Similar multifocal airspace opacities throughout the lungs concerning for pneumonia. 3. Stable support tubes.
[2023-03-23 11:36] LABS: Glucose,Whole Blood 245 mg/dL (70-110)
--- NOTE | 2023-03-23 11:59 | IR ---
PICC LINE PLACEMENT: HISTORY: Infection requiring long-term antibiotic therapy PROCEDURE: Ultrasound guidance of PICC line placement. CRIMP SETTER: COMPLICATIONS: None ANESTHESIA: 1. 1% Lidocaine locally. FINDINGS/TECHNIQUE: The procedure was explained to the patient. The risks, complications, benefits and alternatives were discussed and any questions were answered. Informed consent was obtained. The patient was placed supine on the fluoroscopic table and prepped and draped in the usual sterile fash ion. Utilizing a 21 gauge needle and sonographic guidance, access in the left basilic vein was achi eved and there is placement of a 0.018 guidewire. The vein is patent. A 5-F. sheath was placed over the guidewire. The guidewire and dilator were removed and a 5-F. Double lumen PICC line was placed through the sheath with the chest x-ray confirming the tip at the level of the SVC. The sheath was r emoved, the catheter was flushed and sutured into position. The patient was stable throughout the pr ocedure and remained stable upon discharge from the Department of Radiology. The vein puncture was patent under ultrasound. A coburn scale image was obtained to document patency of the vein punctured. All elements of the maximal barrier technique were utilized. IMPRESSION: 1. Successful PICC line placement under ultrasound performed bedside within the ICU.
[2023-03-23] MEDS ORDERED: POTASSIUM CHLORIDE ER 20 MEQ TAB.ER PO SCH (12:00)
--- NOTE | 2023-03-23 12:17 | P.PN ---
Subjective Patient is seen for follow-up for acute kidney injury and top of chronic kidney disease. Started hemodialysis on 03/20/2023 for ATN and volume overload. Urine output at 60-150 mL per hour Off of Cardizem drip Patient remains on the vent Objective - Vital Signs Vital signs: Vital Signs Temp 98.4 F 03/23/23 08:00 Pulse 117 H 03/23/23 11:43 Resp 16 03/23/23 11:00 BP 142/60 03/23/23 05:00 Pulse Ox 91 L 03/23/23 11:00 FiO2 55 03/23/23 11:18 Intake & Output 03/22/23 03/23/23 03/23/23 18:59 06:59 18:59 Intake Total 948.9 673.4 365.085 Output Total 3445 1045 395 Balance -2496.1 -371.6 -29.915 Weight 115.3 kg 115.8 kg Intake: IV 146 143 165 NS TKO 110 110 50 Piperacillin-Tazobactam 3 100 .375 gm In Sodium Chloride 0.9% 100 ml @ 25 mls/hr IVPB Q8HR [facility] Rx# :[id number] Pressure bag 36 33 15 Intake, IV Titration 432.9 288.4 85.085 Amount Diltiazem 125 mg In 44.5 Sodium Chloride 0.9% 100 ml @ 5 MG/HR 5 mls/hr IV .Q24H [facility] Rx#:[id number] Piperacillin-Tazobactam 3 100 .375 gm In Sodium Chloride 0.9% 100 ml @ 25 mls/hr IVPB Q12HR [facility] Rx #:[id number] propofoL 1,000 mg In 288.4 288.4 85.085 Empty Bag 1 bag @ 15 MCG/ KG/MIN 9.945 mls/hr IV . Q10H4M [facility] Rx#:[id number] Tube Feeding 40 182 85 Hemodialysis 300 Other 30 60 30 Output: Urine 645 1045 395 Hemodialysis 2800 Other: Voiding Method Indwelling Catheter Indwelling Catheter ABP, PAP, CO, CI - Last Documented Arterial Blood Pressure 166/59 - Exam Patient is sedated and on the vent Examination of the heart shows tachycardia, A. fib Examination of the lungs bilateral breath sounds are heard Abdomen is soft Examination lower extremity shows edema 2+ bilaterally - Labs CBC & Chem 7: 03/23/23 04:48 03/23/23 04:48 Labs: Abnormal Lab Results - Last 24 Hours (Table) 03/22/23 03/23/23 03/23/23 Range/Units 17:56 00:02 04:48 WBC 12.3 H (3.8-10.6) k/uL RBC 2.52 L (4.30-5.90) m/uL Hgb 7.5 L (13.0-17.5) gm/dL Hct 22.7 L (39.0-53.0) % RDW 17.4 H (11.5-15.5) % Plt Count 112 L (150-450) k/uL ABG pO2 (83-108) mmHg ABG Total CO2 (19-24) mmol/L Sodium (137-145) mmol/L Chloride (98-107) mmol/L BUN (9-20) mg/dL Creatinine (0.66-1.25) mg/dL Glucose (74-99) mg/dL POC Glucose (mg/dL) 184 H 200 H (70-110) mg/dL Calcium (8.4-10.2) mg/dL 03/23/23 03/23/23 03/23/23 Range/Units 04:48 05:30 05:47 WBC (3.8-10.6) k/uL RBC (4.30-5.90) m/uL Hgb (13.0-17.5) gm/dL Hct (39.0-53.0) % RDW (11.5-15.5) % Plt Count (150-450) k/uL ABG pO2 75 L (83-108) mmHg ABG Total CO2 26 H (19-24) mmol/L Sodium 134 L (137-145) mmol/L Chloride 95 L (98-107) mmol/L BUN 61 H (9-20) mg/dL Creatinine 2.12 H (0.66-1.25) mg/dL Glucose 195 H (74-99) mg/dL POC Glucose (mg/dL) 225 H (70-110) mg/dL Calcium 6.8 L (8.4-10.2) mg/dL 03/23/23 Range/Units 11:34 WBC (3.8-10.6) k/uL RBC (4.30-5.90) m/uL Hgb (13.0-17.5) gm/dL Hct (39.0-53.0) % RDW (11.5-15.5) % Plt Count (150-450) k/uL ABG pO2 (83-108) mmHg ABG Total CO2 (19-24) mmol/L Sodium (137-145) mmol/L Chloride (98-107) mmol/L BUN (9-20) mg/dL Creatinine (0.66-1.25) mg/dL Glucose (74-99) mg/dL POC Glucose (mg/dL) 245 H (70-110) mg/dL Calcium (8.4-10.2) mg/dL Assessment and Plan Assessment: 1. Acute kidney injury secondary to ATN secondary to hemodynamic instability and infection. Nonoliguric. No hydronephrosis noted on kidney ultrasound. Right kidney wasn't properly visualized. Left kidney is atrophic. Disproportionately elevated BUN secondary to anemia as well as steroids. Started on hemodialysis 03/20/2023. 2. Chronic kidney disease stage IV with baseline creatinine 2-2.5. 3. Hypernatremia from free water diuresis and lack of oral water intake. Status post D5W. Improved. 4. Hypokalemia from diuresis. No hyperkalemic. 5. Acute hypoxic respiratory failure secondary to pneumonia and volume overload. Status post bronchoscopy 03/15/2023. 6. Pneumonia on antibiotics. 7. Acute blood loss anemia. Status post blood transfusion this admission. Also received IV DDAVP. Heparin drip stopped. On Aranesp. Hemoglobin 7.7 this morning. 8. Hyperphosphatemia secondary to acute kidney injury. Plan: Hemodialysis in a.m. Continue with IV Lasix Replace potassium cautiously Continue with Aranesp
--- NOTE | 2023-03-23 12:37 | P.PN ---
Subjective Progress Note Date: 03/23/23 77 years old male with past medical history of Diabetes Mellitus, Hyperlipidemia, Hypertension, Osteoarthritis, cervical spine decompression and fusion surgery. PCP is Dr. Blount patient was sent from our with for shortness of breathwith hypoxia and saturating 81. 82% on 4 L oxygen via nasal cannula. Right upper extremity PICC line patient last time he was discharged on daptomycin every 48 hours 14 d ays.patient finished treatment and his lower extremity cellulitis is improving patient currently on BiPAP, with oxygen saturation 97%. Afebrile. Labs showed leukocytosis of 14,000, hemoglobin 7.5 creatinine is elevated at 2.8 which is at baseline of 2.2-3.0 Troponin is elevated at 0.15, 0.13.proBNP 4460. TSH is low at 0.09 Urine analysis is not suspicious for infection. chest x-ray: confluent bilateral Multifocal airspace opacities patient is a started on ceftriaxone, Zithromax IV Lasix 03/13/2023 Patient is seen and evaluated in room at bedside; remains on BiPAP; patient went into respiratory distress during the night; stat ABGs were completed which revealed a pO2 of 103 and pCO2 of 41 - Patient is currently on BiPAP with FiO2 of 100% -- Vital signs are reviewed and remained stable Blood work reveals a WBC of 16.8, hemoglobin of 7, hematocrit 22.5 and platelet count of 182, sodium 154 cultures and 2.1, BUN/creatinine of 104/3.15 and blood glucose of 240 --Chest x-ray reveals diffuse bilateral infiltrates possibly diffuse pneumonia versus interstitial edema or acute respiratory distress syndrome - Patient remains on IV heparin for possible PE; V/Q scan cannot be completed due to unstable respiratory status -- Patient has been placed on IV fluids in form of D5 water for hypernatremia; we will monitor sodium levels closely Prognosis remains guarded 03/14/2023 Patient is seen and evaluated in room at bedside; transferred to ICU; patient had been agitated and restless and noncompliant with BiPAP resulting in worsening respiratory status -- Patient has been placed on Precedex and remains on BiPAP with settings of 16/8 and 80% Vital signs are reviewed with temperature of 98.4, pulse 59, respirations 17 and blood pressure of 164/68 White count is 22.4, hemoglobin 7.4, hematocrit 24.5, with a normal platelet count. Sodium 157, potassium 2.8, chlorides 119, CO2 26, BUN 109, and creatinine 2.73. Chest x-ray continues to show bilateral airspace disease, which may be on the basis of fluid, pneumonia, or acute respiratory distress syndrome. The patient's currently on IV heparin empirically. The patient's also receiving Zosyn. Heparin can be discontinued once PE is ruled out 03/15. Patient seen and examined. Labs done this morning showed WBC 18.9, hemoglobin 7.2, platelet count 179, sodium 156, potassium 2.9, BUN 97, creatinine 2.86. Patient was intubated overnight, currently on mechanical ventilation. Currently on propofol. 03/16. Patient seen and examined. Patient continues to be intubated. Hemoglobin this morning is 6.8. Patient getting 1 unit of packed red blood cell. Blood sugars were elevated, currently on insulin drip 03/17/2023 Patient is currently intubated and on mechanical ventilator, assist control. Patient is also sedated with propofol. Chest x-ray today showed similar bilateral airspace disease with lower lung predominance. Patient had bronchoscopy done on 03/15/2023 showed no growth so far. Patient is being continued on Zosyn. Patient is on IV hydration. Patient is also on insulin drip for better blood sugar control. Laboratory data showed sodium 143 potassium 4.2 chloride 109 bicarb is 23 BUN 111 and creatinine 3.26 blood sugar 120, WBC 17.7 hemoglobin 7.5 and platelets 138. 03/18/2023 Patient remained on mechanical ventilator. Assist-control and PEEP increased to 12 with FiO2 50%. Chest x-ray showed stable lower lobe pulmonary infiltrates. ABG showed pH of 7.34, PCO2 41 and PO2 112. BAL cultures have been negative. Patient is being current Zosyn. Laboratory data showed WBC 16.8 hemoglobin 7.5 and platelets 112 BUN 119 and creatinine 3.5 bicarb is 20 blood sugar is 129. Calcium 7.2. IV fluids down to KVO. Pulmonary, nephrology is on board. Dr Cruz Assumed care 03/19/23: Patient seen and evaluated and bedside patient remains intubated, sedated. On mechanical ventilator. Blood work reviewed, noted to have anemia, 1 unit of packed RBC given 03/20/2023: Patient seen and evaluated, and remains intubated, on mechanical ventilator, on propofol. Blood work reviewed hemoglobin remained stable, potassium of 25.5, nephrology following plan for hemodialysis today axis already in place 03/21/23: Patient remains intubated, sedated with propofol. Hemodialysis access in groin. Second session of hemodialysis today plan to remove 2 L, first session of hemodialysis was 03/20 and 2 L were removed. Patient followed by nephrology, critical care, cardiology. Continue IV antibiotic with Zosyn. Cont inue to monitor H&H 03/22/23: Patient seen and evaluated bedside, patient intubated, sedated with pro pofol. Patient on IV Cardizem for paroxysmal tachycardia. Underwent hemodialysis third session today. Output from oral gastric tube is decreased 03/23/23: Patient seen and evaluated bedside, patient continued to remain intubated and sedated with propofol. Order to have paroxysmal tachycardia. S jorge chemistry pending Objective - Vital Signs Vital signs: Vital Signs Temp 98.3 F 03/23/23 12:00 Pulse 133 H 03/23/23 12:00 Resp 18 03/23/23 12:00 BP 142/60 03/23/23 05:00 Pulse Ox 91 L 03/23/23 12:00 FiO2 55 03/23/23 12:00 Intake & Output 03/22/23 03/23/23 03/23/23 18:59 06:59 18:59 Intake Total 948.9 673.4 425.085 Output Total 3445 1045 455 Balance -2496.1 -371.6 -29.915 Weight 115.3 kg 115.8 kg Intake: IV 146 143 178 NS TKO 110 110 60 Piperacillin-Tazobactam 3 100 .375 gm In Sodium Chloride 0.9% 100 ml @ 25 mls/hr IVPB Q8HR [facility] Rx# :[id number] Pressure bag 36 33 18 Intake, IV Titration 432.9 288.4 85.085 Amount Diltiazem 125 mg In 44.5 Sodium Chloride 0.9% 100 ml @ 5 MG/HR 5 mls/hr IV .Q24H [facility] Rx#:[id number] Piperacillin-Tazobactam 3 100 .375 gm In Sodium Chloride 0.9% 100 ml @ 25 mls/hr IVPB Q12HR [facility] Rx #:[id number] propofoL 1,000 mg In 288.4 288.4 85.085 Empty Bag 1 bag @ 15 MCG/ KG/MIN 9.945 mls/hr IV . Q10H4M [facility] Rx#:[id number] Tube Feeding 40 182 102 Hemodialysis 300 Other 30 60 60 Output: Urine 645 1045 455 Hemodialysis 2800 Other: Voiding Method Indwelling Catheter Indwelling Catheter ABP, PAP, CO, CI - Last Documented Arterial Blood Pressure 165/65 - Exam PHYSICAL EXAMINATION: GENERAL: The patient is intubated, orogastric tube in place, Meneses cath in place, groin hemodialysis access in place, diffuse anasarca HEENT: endotracheal tube and orogastric tube in place CARDIOVASCULAR: S1 and S2 present PULMONARY: Decreased breath sounds bilaterally, intubated on ventilator ABDOMEN: Soft, nontender, nondistended, normoactive bowel sounds. NEUROLOGICAL: Intubated and sedated neurological exam limited - Labs CBC & Chem 7: 03/23/23 04:48 03/23/23 04:48 Labs: Abnormal Lab Results - Last 24 Hours (Table) 03/22/23 03/23/23 03/23/23 Range/Units 17:56 00:02 04:48 WBC 12.3 H (3.8-10.6) k/uL RBC 2.52 L (4.30-5.90) m/uL Hgb 7.5 L (13.0-17.5) gm/dL Hct 22.7 L (39.0-53.0) % RDW 17.4 H (11.5-15.5) % Plt Count 112 L (150-450) k/uL ABG pO2 (83-108) mmHg ABG Total CO2 (19-24) mmol/L Sodium (137-145) mmol/L Chloride (98-107) mmol/L BUN (9-20) mg/dL Creatinine (0.66-1.25) mg/dL Glucose (74-99) mg/dL POC Glucose (mg/dL) 184 H 200 H (70-110) mg/dL Calcium (8.4-10.2) mg/dL 03/23/23 03/23/23 03/23/23 Range/Units 04:48 05:30 05:47 WBC (3.8-10.6) k/uL RBC (4.30-5.90) m/uL Hgb (13.0-17.5) gm/dL Hct (39.0-53.0) % RDW (11.5-15.5) % Plt Count (150-450) k/uL ABG pO2 75 L (83-108) mmHg ABG Total CO2 26 H (19-24) mmol/L Sodium 134 L (137-145) mmol/L Chloride 95 L (98-107) mmol/L BUN 61 H (9-20) mg/dL Creatinine 2.12 H (0.66-1.25) mg/dL Glucose 195 H (74-99) mg/dL POC Glucose (mg/dL) 225 H (70-110) mg/dL Calcium 6.8 L (8.4-10.2) mg/dL 03/23/23 Range/Units 11:34 WBC (3.8-10.6) k/uL RBC (4.30-5.90) m/uL Hgb (13.0-17.5) gm/dL Hct (39.0-53.0) % RDW (11.5-15.5) % Plt Count (150-450) k/uL ABG pO2 (83-108) mmHg ABG Total CO2 (19-24) mmol/L Sodium (137-145) mmol/L Chloride (98-107) mmol/L BUN (9-20) mg/dL Creatinine (0.66-1.25) mg/dL Glucose (74-99) mg/dL POC Glucose (mg/dL) 245 H (70-110) mg/dL Calcium (8.4-10.2) mg/dL Assessment and Plan Assessment: Assessment and plan * Multifocal pneumonia * Acute hypoxic respiratory failure due to Pneumonia * Acute blood loss anemia suspect upper GI bleed and it for EGD * Elevated troponin * 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 Managed by ICU team * In regards to acute anemia patient has OG tube in place with dark brown residue. Continue patient on Protonix, general surgery consulted * In regards to elevated troponin seen by cardiology, continue medical management antiplatelet/anticoagulation on hold due to anemia * In regards to history of atrial fibrillation with rapid monitor response, continue Coreg. Can initiate Cardizem drip for sustained a cardiac needed * In regards to multifocal pneumonia continue Zosyn * In regards to worsening renal failure, nephrology following , continue hemodialysis last session 03/22 * Prognosis remains poor
--- NOTE | 2023-03-23 12:56 | P.PN ---
Subjective Progress Note Date: 03/23/23 Principal diagnosis: Acute hypoxic respiratory failure, suspect healthcare acquired pneumonia and ARDS. On today's evaluation of 03/23/2023, I'm seeing the patient in the intensive care unit. At this point in time, the patient is intubated on a mechanical ventilator. Overnight, the patient became acutely hypoxic and more short of breath and he developed diffuse but the pulmonary infiltrates consistent with pneumonia and based on that the patient was intubated and placed on a mechanical ventilator. Note that this patient is 77 years of age. He has diabetes mellitus type 2, chronic kidney disease, hypothyroidism, COPD, hyperlipidemia and hypertension. He was also recently treated for cellulitis of lower extremity, discharged to [facility] for IV antibiotics through a PICC line in his right upper extremity and he received and completed the course of daptomycin. Discharged home to be readmitted for shortness of breath to our hospital on 03/08/2023. Note that the patient was being supported with BiPAP as various pressures. His proBNP level was elevated. His echocardiograms was recent showed a preserved LV function without any significant abnormalities. He was gi fransisco bronchodilators. He was given IV Solu-Medrol. He was given IV Lasix. Another dose of Lasix was given to him by the nurse practitioner at 2:30 AM this morning. He has a Meneses catheter in place. Urine output is in order of 100 mL an hour. At this point in time, the patient remains on mechanical ventilator. He was quite a successful the mechanical ventilator and he was having frequent episodes of desaturation. He is on propofol running at 55 mcg/kg/m. I switched this patient's blood pressure control mode of mechanical ventilation and currently is on a pressure control of 12, rate of 26, PEEP of 12 with a FiO2 of 60%. His current pulse ox is 95%. He is on IV heparin and this was I believe initiated due to concerns of pulmonary embolism, on an empiric basis. The echoes at 18.9, hemoglobin is at 7.2, platelet count of 179, most recent blood gas showed a pH of 7.38 with a pCO2 of 43 and pO2 of 140. BUN is at 97 with a creatinine of 2.8, sodium level is at 156 and a potassium level is at 2.9. IV fluids are at KVO, 0.9. On 03/20/2023, I'm seeing the patient for a follow-up. Unfortunately, not a whole lot of progress since yesterday. He was started on diuretics yesterday and urine output remained insufficient and the patient remains in a positive fluid balance. At the same time, the patient continues to have dense consolidations of the lung bases bilaterally. The patient remains on a mechanical ventilator. The patient remains sedated on propofol which is running at 50 mcg/kg/m. He is on a pressure control mode of mechanical ventilation with a pressure control of 12, rate of 26, FiO2 of 60% with a PEEP of 12. Blood gas shows respiratory acidosis with a pH of 7.19 with a pCO2 of 52 and pO2 of 113. The patient's BUN is at 139, creatinine is higher compared to yesterday at 3.7. Sodium is at 140. The white cell count is currently at 17.7 which is improved compared to yesterday with a hemoglobin of 8.5 and a platelet count of 100 with is essentially stable. The patient remains on IV Zosyn. He is afebrile. The patient is currently nothing by mouth. He was having episodic drop in hemoglobin and he has received packed RBC transfusion and the last transfusion was yesterday. Hemoglobin currently stable. The output from the OG is 150 cc, coffee-ground/dark possibly indicating an upper GI bleed. He remains nothing by mouth. He remains on IV Protonix. No melanotic stools. Blood sugar control is adequate and the patient is currently on Levemir insulin. On 03/21/2023, the patient is essentially the same intubated on a mechanical ventilator. He was started hemodialysis yesterday. He received the first session of hemodialysis with 2 L of fluid removal and is going to have another session today. He has a right femoral triple-lumen catheter in place. He remains sedated on propofol which is currently running at 45 mcg/kg/m. His b lood pressure was noted to be elevated and the patient was started on Cleviprex strep which was subsequently discontinued. His calm and comfortable and symptoms of the mechanical ventilator. Is on a pressure control mode at a rate of 30, pressure of 16 cm of water and FiO2 of 60% with a PEEP of 12. Blood gas shows some improvement in his oxygenation. PH is at 7.25 with a pCO2 of 43 and pO2 125. Chest x-ray findings are essentially unchanged with dense consolidations bilaterally. Orotracheal tube is in a good location. He also has a orogastric tube in place and output from the stomach is quite minimal yet bloody and there is obvious coffee-ground material. No bright blood per rectum. No melanotic stools. His hemoglobin is dropped slightly is currently at 7.7. He is on no pressors for now. He remains nothing by mouth. Cardiac rhythm is sinus. Patient was reevaluated , remains intubated and mechanically ventilated, remains in the ICU, patient is on pressure control mode of mechanical ventilation, rate is set at 30 inspiratory time is 0.951, down to 0.80 FiO2 60% I cut it down to 55% PEEP remains high at 12 ABG showed a pO2 of 111 pCO2 43 pH of 7.33 patient remains on Cardizem for atrial fibrillation with RVR is also on propofol at 50 mcg/kg/m received hemodialysis on 03/20 and L were removed. Received 2 units of packed RBCs for hemoglobin of 7.2 continues to have some coffee-ground material and nasogastric tube, but we'll restart tube feeding. Chest x-ray continues to show bilateral diffuse interstitial infiltrates consistent with ARDS, underlying pneumonia or underlying pulmonary edema is not entirely ruled out, but I believe this is mostly noncardiogenic pulmonary edema is not improving much even with hemodialysis. WBC count of 15.5 hemoglobin 7.2 basic metabolic profile is relatively normal except for bicarb of 19 BUN of 85 creatinine 2.59 blood cultures sputum cultures and bronchial cultures are all negative. Reevaluated today on 03/23/2023, patient remains in the ICU, intubated and mechanically ventilated. Patient is on assist control rate of 30, pressure control mode 16, inspiratory time is 0.8 FiO2 55% PEEP of 12 ABG showed a pO2 of 75 pCO2 41 pH of 7.39 patient remains sedated, on propofol at 50 mcg/kg/m receiving Nepro at 17 mL per hour. Patient is on hemodialysis, last dialysis was yesterday and 2 L were removed. Remains on Zosyn, and I'm arranging for the patient to have a PICC line today. Patient was actually intubated initially on 03/15, and family may have to be approached sometime by the end of the week r egarding tracheostomy and PEG tube placement unless the patient makes a dramatic improvement and he could be weaned and extubated. I'm not seeing that happening in the near future. Chest x-ray continues to show evidence of bilateral interstitial edema/infiltrates, consistent with ARDS. Patient continues to have atrial fibrillation with RVR. And that is being addressed by cardiology. WBC count today is 12.3 hemoglobin is 7.5 electrolytes are normal BUN is 61 creatinine 2.12 ABG as noted earlier. Objective - Vital Signs Vital signs: Vital Signs Temp 98.3 F 03/23/23 12:00 Pulse 133 H 03/23/23 12:00 Resp 18 03/23/23 12:00 BP 142/60 03/23/23 05:00 Pulse Ox 91 L 03/23/23 12:00 FiO2 55 03/23/23 12:00 Intake & Output 03/22/23 03/23/23 03/23/23 18:59 06:59 18:59 Intake Total 948.9 673.4 425.085 Output Total 3445 1045 455 Balance -2496.1 -371.6 -29.915 Weight 115.3 kg 115.8 kg Intake: IV 146 143 178 NS TKO 110 110 60 Piperacillin-Tazobactam 3 100 .375 gm In Sodium Chloride 0.9% 100 ml @ 25 mls/hr IVPB Q8HR [facility] Rx# :[id number] Pressure bag 36 33 18 Intake, IV Titration 432.9 288.4 85.085 Amount Diltiazem 125 mg In 44.5 Sodium Chloride 0.9% 100 ml @ 5 MG/HR 5 mls/hr IV .Q24H [facility] Rx#:[id number] Piperacillin-Tazobactam 3 100 .375 gm In Sodium Chloride 0.9% 100 ml @ 25 mls/hr IVPB Q12HR [facility] Rx #:[id number] propofoL 1,000 mg In 288.4 288.4 85.085 Empty Bag 1 bag @ 15 MCG/ KG/MIN 9.945 mls/hr IV . Q10H4M [facility] Rx#:[id number] Tube Feeding 40 182 102 Hemodialysis 300 Other 30 60 60 Output: Urine 645 1045 455 Hemodialysis 2800 Other: Voiding Method Indwelling Catheter Indwelling Catheter ABP, PAP, CO, CI - Last Documented Arterial Blood Pressure 165/65 - Exam Physical Exam: Revealed 77-year-old male intubated and mechanically ventilated sedated on propofol in no distress Head: Atraumatic, normocephalic. Nasogastric tube is noted with dark black f luid noted in the nasogastric tube. Orogastric tube and endotracheal tube are intact. HEENT:[Neck is supple.] [No neck masses.] [No thyromegaly.] [No JVD.] Chest: [Scattered crackles and rhonchi noted bilaterally.] Cardiac Exam: [Normal S1 and S2, no S3 gallop, no murmur.] Abdomen: [Soft, nontender, no megaly, no rebound, no guarding, normal bowel sounds.] Extremities: [No clubbing, bipedal edema noted 2+. Neurological Exam: Not assess fully sedated on propofol Psychiatric: Could not be assessed fully sedated - Labs CBC & Chem 7: 03/23/23 04:48 03/23/23 04:48 Labs: Abnormal Lab Results - Last 24 Hours (Table) 03/22/23 03/23/23 03/23/23 Range/Units 17:56 00:02 04:48 WBC 12.3 H (3.8-10.6) k/uL RBC 2.52 L (4.30-5.90) m/uL Hgb 7.5 L (13.0-17.5) gm/dL Hct 22.7 L (39.0-53.0) % RDW 17.4 H (11.5-15.5) % Plt Count 112 L (150-450) k/uL ABG pO2 (83-108) mmHg ABG Total CO2 (19-24) mmol/L Sodium (137-145) mmol/L Chloride (98-107) mmol/L BUN (9-20) mg/dL Creatinine (0.66-1.25) mg/dL Glucose (74-99) mg/dL POC Glucose (mg/dL) 184 H 200 H (70-110) mg/dL Calcium (8.4-10.2) mg/dL 03/23/23 03/23/23 03/23/23 Range/Units 04:48 05:30 05:47 WBC (3.8-10.6) k/uL RBC (4.30-5.90) m/uL Hgb (13.0-17.5) gm/dL Hct (39.0-53.0) % RDW (11.5-15.5) % Plt Count (150-450) k/uL ABG pO2 75 L (83-108) mmHg ABG Total CO2 26 H (19-24) mmol/L Sodium 134 L (137-145) mmol/L Chloride 95 L (98-107) mmol/L BUN 61 H (9-20) mg/dL Creatinine 2.12 H (0.66-1.25) mg/dL Glucose 195 H (74-99) mg/dL POC Glucose (mg/dL) 225 H (70-110) mg/dL Calcium 6.8 L (8.4-10.2) mg/dL 03/23/23 Range/Units 11:34 WBC (3.8-10.6) k/uL RBC (4.30-5.90) m/uL Hgb (13.0-17.5) gm/dL Hct (39.0-53.0) % RDW (11.5-15.5) % Plt Count (150-450) k/uL ABG pO2 (83-108) mmHg ABG Total CO2 (19-24) mmol/L Sodium (137-145) mmol/L Chloride (98-107) mmol/L BUN (9-20) mg/dL Creatinine (0.66-1.25) mg/dL Glucose (74-99) mg/dL POC Glucose (mg/dL) 245 H (70-110) mg/dL Calcium (8.4-10.2) mg/dL Assessment and Plan Assessment: Impression: Acute hypoxic respiratory failure, suspect healthcare acquired pneumonia, noncardiogenic pulmonary edema, ARDS. Acute on chronic kidney disease, patient is on hemodialysis, chest x-ray is not improving much in spite of hemodialysis Upper GI bleeding with episodic drop in hemoglobin will require blood t ransfusion Bilateral lower extremity edema and cellulitis Acute non-ST elevation myocardial infarction Anemia of chronic disease and possible some component of new onset GI bleeding History of stage III chronic kidney disease Type 2 diabetes with diabetic nephropathy Benign essential hypertension Hypothyroidism History of BPH Recommendation: Continue ventilatory support Continue pressure control mode of mechanical ventilation. No changes made in the ventilator settings today Continue hemodialysis Continue antibiotics empirically Continue Cardizem Continue empiric antibiotics Continue enteral feeding/ nutritional support Continue to monitor urine output, input and output Continue to monitor renal functioning Patient remains critically ill, no work ready for any weaning CODE STATUS was changed yesterday to DO NOT RESUSCITATE CODE STATUS May have to address possibly comfort care measures with the family if no significant improvement noted in the next few days Critical care time is over 30 minutes Time with Patient: Greater than 30
[2023-03-23] MEDS ORDERED: POTASSIUM BICARBONATE/CIT AC 20 MEQ TABLET.EFF PO SCH (13:00)
--- NOTE | 2023-03-23 13:07 | P.PN ---
Subjective Progress Note Date: 03/23/23 CHIEF COMPLAINT: Respiratory failure, pneumonia HISTORY OF PRESENT ILLNESS: Patient remains intubated and on mechanical ventilation in the ICU. currently in the ICU with hypoxic respiratory failure, pneumonia , pulmonary edema and ARDS. Patient has had no further blood noted in OG tube. No bowel movement today. No bloody BMs reported during the night. Afebrile. HGb stable at 7.5 PHYSICAL EXAM: VITAL SIGNS: Reviewed. GENERAL: no acute distress. ABDOMEN: Soft. Nondistended. Nontender. NEUROLOGIC: Intubated on mechanical ventilation ASSESSMENT: 1. Acute GI bleed likely upper GI bleed PLAN: -Patient scheduled for EGD and colonoscopy on , 03/25/[address] Moreno -Continue IV Protonix -Continue to monitor for any signs or symptoms of bleeding -Continue to monitor hemoglobin Physician Mcat Tutor note has been reviewed by physician. Signing provider agrees with the documented findings, assessment, and plan of care. Objective - Vital Signs Vital signs: Vital Signs Temp 98.4 F 03/23/23 08:00 Pulse 117 H 03/23/23 11:43 Resp 16 03/23/23 11:00 BP 142/60 03/23/23 05:00 Pulse Ox 91 L 03/23/23 11:00 FiO2 55 03/23/23 11:18 Intake & Output 03/22/23 03/23/23 03/23/23 18:59 06:59 18:59 Intake Total 948.9 673.4 365.085 Output Total 3445 1045 395 Balance -2496.1 -371.6 -29.915 Weight 115.3 kg 115.8 kg Intake: IV 146 143 165 NS TKO 110 110 50 Piperacillin-Tazobactam 3 100 .375 gm In Sodium Chloride 0.9% 100 ml @ 25 mls/hr IVPB Q8HR [facility] Rx# :[id number] Pressure bag 36 33 15 Intake, IV Titration 432.9 288.4 85.085 Amount Diltiazem 125 mg In 44.5 Sodium Chloride 0.9% 100 ml @ 5 MG/HR 5 mls/hr IV .Q24H [facility] Rx#:[id number] Piperacillin-Tazobactam 3 100 .375 gm In Sodium Chloride 0.9% 100 ml @ 25 mls/hr IVPB Q12HR [facility] Rx #:[id number] propofoL 1,000 mg In 288.4 288.4 85.085 Empty Bag 1 bag @ 15 MCG/ KG/MIN 9.945 mls/hr IV . Q10H4M [facility] Rx#:[id number] Tube Feeding 40 182 85 Hemodialysis 300 Other 30 60 30 Output: Urine 645 1045 395 Hemodialysis 2800 Other: Voiding Method Indwelling Catheter Indwelling Catheter ABP, PAP, CO, CI - Last Documented Arterial Blood Pressure 166/59 - Labs CBC & Chem 7: 03/23/23 04:48 03/23/23 04:48 Labs: Abnormal Lab Results - Last 24 Hours (Table) 03/22/23 03/22/23 03/23/23 Range/Units 10:49 17:56 00:02 WBC (3.8-10.6) k/uL RBC (4.30-5.90) m/uL Hgb (13.0-17.5) gm/dL Hct (39.0-53.0) % RDW (11.5-15.5) % Plt Count (150-450) k/uL ABG pO2 (83-108) mmHg ABG Total CO2 (19-24) mmol/L Sodium (137-145) mmol/L Chloride (98-107) mmol/L BUN (9-20) mg/dL Creatinine (0.66-1.25) mg/dL Glucose (74-99) mg/dL POC Glucose (mg/dL) 184 H 200 H (70-110) mg/dL Calcium (8.4-10.2) mg/dL Phosphorus 5.6 H (2.5-4.5) mg/dL 03/23/23 03/23/23 03/23/23 Range/Units 04:48 04:48 05:30 WBC 12.3 H (3.8-10.6) k/uL RBC 2.52 L (4.30-5.90) m/uL Hgb 7.5 L (13.0-17.5) gm/dL Hct 22.7 L (39.0-53.0) % RDW 17.4 H (11.5-15.5) % Plt Count 112 L (150-450) k/uL ABG pO2 75 L (83-108) mmHg ABG Total CO2 26 H (19-24) mmol/L Sodium 134 L (137-145) mmol/L Chloride 95 L (98-107) mmol/L BUN 61 H (9-20) mg/dL Creatinine 2.12 H (0.66-1.25) mg/dL Glucose 195 H (74-99) mg/dL POC Glucose (mg/dL) (70-110) mg/dL Calcium 6.8 L (8.4-10.2) mg/dL Phosphorus (2.5-4.5) mg/dL 03/23/23 03/23/23 Range/Units 05:47 11:34 WBC (3.8-10.6) k/uL RBC (4.30-5.90) m/uL Hgb (13.0-17.5) gm/dL Hct (39.0-53.0) % RDW (11.5-15.5) % Plt Count (150-450) k/uL ABG pO2 (83-108) mmHg ABG Total CO2 (19-24) mmol/L Sodium (137-145) mmol/L Chloride (98-107) mmol/L BUN (9-20) mg/dL Creatinine (0.66-1.25) mg/dL Glucose (74-99) mg/dL POC Glucose (mg/dL) 225 H 245 H (70-110) mg/dL Calcium (8.4-10.2) mg/dL Phosphorus (2.5-4.5) mg/dL
[2023-03-23] MEDS: DILTIAZEM 125 MG in SODIUM CHLORIDE 0.9% 100 ML IV SCH (13:44)
--- NOTE | 2023-03-23 15:02 | P.PN ---
Subjective Paroxysmal atrial fibrillation This is a 77-year-old gentleman with coronary artery disease and congestive heart failure as well as chronic kidney disease and multiple comorbid conditions was admitted to the hospital with change in mental status and he was diagnosed with pneumonia. We consulted to see the patient because of bradycardia and also because of atrial fibrillation. Last night the patient went into respiratory failure and he was intubated. 03/15/2023 The patient was seen and evaluated this morning. He is currently intubated and he is on mechanical ventilation. Hemodynamically he is a stable as a matter of fact he is hypertensive. He is bradycardic with heart rate in the 40s and he is in sinus bradycardia. At the same time work from this morning showed hypokalemia and he continues to be in renal failure with creatinine of 2.8. He is on heparin IV for oral anticoagulation with a chest x-ray showed bilateral infiltrate definitely concerning for pneumonia. March 162022 The patient was seen and evaluated this morning. He continues to be intubated on mechanical ventilation. Hemodynamically he is a stable beside bradycardia with heart rate in the 50s. His hemoglobin drop to below 7 and currently is in process of receiving blood. For that reason heparin was stopped. He is on Lasix per nephrology service. Creatinine is 3 this morning. Examination is remarkable for regular rhythm with diminished breathing sounds bilaterally and bilateral lower extremity 03/17/2023 The patient was seen and evaluated this morning. He continues to be intubated and on mechanical ventilation. Hemodynamically he is stable and currently he is not on any vasopressors. As a matter of fact the bradycardia has improved. He is bradycardic only intermittently. He is not on any AV ayan blockers at this point. Hemoglobin has been stable at 7.1 this morning. He receives 1 unit of packed RBC yesterday. He is not bleeding. He is not on any anticoagulation at this point which I would agree on to rule out any gastrointestinal bleeding etiology. The kidney function is worse today. He was on Lasix and that has a systolic. Examination is remarkable for diminished breathing sounds bilaterally and mild bilateral lower extremity edema March 182022 The patient was seen and evaluated this morning. He continues to be sedated and intubated on mechanical ventilation. Hemodynamically he continues to be stable and not on any vasopressors. He has been maintaining normal sinus mechanism was sinus bradycardia. Currently he is not on any beta zurdo agents. Hemoglobin this morning is 7.5. Currently he is not on any oral anticoagulation. No issues with the bleeding. We would continue holding any anticoagulation at this point the hemoglobin is more stable and to rule out any gastrointestinal bleeding related issues. 03/19/2023 The patient was seen and evaluated this morning. He continues to be intubated and he is currently on mechanical ventilation. Nothing changed from that standpoint overview. Unfortunately the hemoglobin dropped again and today is 6.9. He is in process of receiving some blood. For that reason we should continue holding on any oral anticoagulation at this point. Kidney function remains elevated. Nephrology service is on the case. He is maintaining normal sinus mechanism was sinus bradycardia. The examination is remarkable for bilateral lower extremities edema and bilateral upper extremities edema March [id number] The patient was seen and evaluated this morning. He is on dialysis at this point. Hemodynamically he seems to be stable. The hemoglobin is a stable as well. He has been maintaining normal sinus mechanism. Anticoagulation is on hold at this point. 03/22 Patient seen and examined. He received dialysis today with approximately 2 L output. Still making some urine with IV Lasix 60 mg twice a day. Blood pressure on the higher end and somewhat labile however more consistently in the 160s 180s. He has been in and out of atrial fibrillation and initially was restarted on Cardizem drip however did have some bradycardia and some pauses. O n review of this appears mostly sinus rhythm with PVCs and occasional blocked PACs. No obvious second-degree type II block. Therefore discussed restarting AV ayan blocking agents. We will switch him to carvedilol. He is started on tube feeds today. Able to be weaned somewhat on the oxygen down from 60% to 55%. Still has significant lower extremity and upper extremity edema. He has not been on anticoagulation secondary to anemia with patient receiving 2 blood transfusions and scheduled for a scope in approximately 2 days. No hematochezia or melena. 03/23 Patient seen and examined. Patient remains on ventilator and intubated and sedated. Creatinine mildly improving to 2.1, hemoglobin 7.5. Remains in A. fib with heart rates 120s to 130s. Carvedilol was initiated yesterday. There was some concern regarding heart degree AV block however no significant block and appeared to be PACs/PVCs yesterday. The examination is remarkable for bilateral lower extremities edema and diminis hed breathing sounds bilaterally and altered mental status Assessment Change in mental status Pneumonia Paroxysmal atrial fibrillation. Currently the patient is in sinus rhythm Sinus bradycardia Severe electrolytes abnormalities Acute on chronic renal failure Multiple comorbid conditions Anemia Acute kidney injury Plan No evidence of high degree AV block Increase carvedilol from 6.25 up to 12.5 twice a day and add Cardizem 30 mg every 6 hours for better rate control as well as blood pressure control Monitor blood pressure Monitor neurologic recovery Continue supportive care, prognosis guarded Holding anticoagulation until hemoglobin stable Objective - Vital Signs Vital signs: Vital Signs Temp 98.3 F 03/23/23 12:00 Pulse 121 H 03/23/23 14:00 Resp 13 03/23/23 14:00 BP 154/68 03/23/23 14:00 Pulse Ox 92 L 03/23/23 14:00 FiO2 55 03/23/23 12:00 Intake & Output 03/22/23 03/23/23 03/23/23 18:59 06:59 18:59 Intake Total 948.9 673.4 585.085 Output Total 3445 1045 680 Balance -2496.1 -371.6 -94.915 Weight 115.3 kg 115.8 kg Intake: IV 146 143 204 NS TKO 110 110 80 Piperacillin-Tazobactam 3 100 .375 gm In Sodium Chloride 0.9% 100 ml @ 25 mls/hr IVPB Q8HR [facility] Rx# :[id number] Pressure bag 36 33 24 Intake, IV Titration 432.9 288.4 185.085 Amount Diltiazem 125 mg In 44.5 Sodium Chloride 0.9% 100 ml @ 5 MG/HR 5 mls/hr IV .Q24H [facility] Rx#:[id number] Piperacillin-Tazobactam 3 100 .375 gm In Sodium Chloride 0.9% 100 ml @ 25 mls/hr IVPB Q12HR [facility] Rx #:[id number] propofoL 1,000 mg In 288.4 288.4 185.085 Empty Bag 1 bag @ 15 MCG/ KG/MIN 9.945 mls/hr IV . Q10H4M [facility] Rx#:[id number] Tube Feeding 40 182 136 Hemodialysis 300 Other 30 60 60 Output: Urine 645 1045 680 Hemodialysis 2800 Other: Voiding Method Indwelling Catheter Indwelling Catheter Indwelling Catheter ABP, PAP, CO, CI - Last Documented Arterial Blood Pressure 155/60 - Labs CBC & Chem 7: 03/23/23 04:48 03/23/23 04:48 Labs: Abnormal Lab Results - Last 24 Hours (Table) 03/22/23 03/23/23 03/23/23 Range/Units 17:56 00:02 04:48 WBC 12.3 H (3.8-10.6) k/uL RBC 2.52 L (4.30-5.90) m/uL Hgb 7.5 L (13.0-17.5) gm/dL Hct 22.7 L (39.0-53.0) % RDW 17.4 H (11.5-15.5) % Plt Count 112 L (150-450) k/uL ABG pO2 (83-108) mmHg ABG Total CO2 (19-24) mmol/L Sodium (137-145) mmol/L Chloride (98-107) mmol/L BUN (9-20) mg/dL Creatinine (0.66-1.25) mg/dL Glucose (74-99) mg/dL POC Glucose (mg/dL) 184 H 200 H (70-110) mg/dL Calcium (8.4-10.2) mg/dL 03/23/23 03/23/23 03/23/23 Range/Units 04:48 05:30 05:47 WBC (3.8-10.6) k/uL RBC (4.30-5.90) m/uL Hgb (13.0-17.5) gm/dL Hct (39.0-53.0) % RDW (11.5-15.5) % Plt Count (150-450) k/uL ABG pO2 75 L (83-108) mmHg ABG Total CO2 26 H (19-24) mmol/L Sodium 134 L (137-145) mmol/L Chloride 95 L (98-107) mmol/L BUN 61 H (9-20) mg/dL Creatinine 2.12 H (0.66-1.25) mg/dL Glucose 195 H (74-99) mg/dL POC Glucose (mg/dL) 225 H (70-110) mg/dL Calcium 6.8 L (8.4-10.2) mg/dL 10/10/23 Range/Units 11:34 WBC (3.8-10.6) k/uL RBC (4.30-5.90) m/uL Hgb (13.0-17.5) gm/dL Hct (39.0-53.0) % RDW (11.5-15.5) % Plt Count (150-450) k/uL ABG pO2 (83-108) mmHg ABG Total CO2 (19-24) mmol/L Sodium (137-145) mmol/L Chloride (98-107) mmol/L BUN (9-20) mg/dL Creatinine (0.66-1.25) mg/dL Glucose (74-99) mg/dL POC Glucose (mg/dL) 245 H (70-110) mg/dL Calcium (8.4-10.2) mg/dL
--- NOTE | 2023-03-23 15:19 | CDI ---
Documentation Clarification Form Date: 03/23/2023 02:52:58 PM From: Elzbieta Stanford RN, CCDS Admit Date: 03/07/2023 11:36:00 PM Patient Name: Peyman Carter Visit Number: [id number] Discharge Date: ATTENTION: The Clinical Documentation Specialists (CDI) and [facility] Coding Staff appreciate your assistance in clarifying documentation. Please respond to the clarification below the line at the bottom and electronically sign. The CDI & [facility] Coding staff will review the response and follow-up if needed. Please note: Queries are made part of the Legal Health Record. If you have any questions, please contact the author of this message via ITS. Dr. Rafal Cruz The patient has Sepsis documented in the ID consult and ongoing progress notes starting on 03/15/23. Based on this information and the findings below, is there an additional diagnosis that is clinically appropriate for this patient? 03/15 ID Consult: patient with acute respiratory failure which is multifactorial in this patient has been in the hospital for almost 8 to 9 days with initial presentation of sepsis possible pneumonia however no cultures were done during this hospital stay. History/Risk Factors: Cancer, Diabetes Mellitus, Hyperlipidemia, Hypertension, Osteoarthritis (OA), Prostate Disorder, Renal Disease, Thyroid Disorder, Former smoker Clinical Indicators: 77-year-old male present with increasing shortness of breath weakness and mental status changes patient on presentation. 03/07 VS: 139/59 66 22 90% 8/LNC 03/08 VS: Pulse 78 RR 28 T 101.0 97 BIPAP FIO2 60 12/6 03/07 Labs: WBC 15.1 HGB 8.0, 25.1 Neutrophils 13.3, BUN 66, CR 2.91 Troponin I 0.149 BNP 4460 03/07 Lactic acid: 1.1 03/08 WBC 14.0 HGB 7.5 HCT 23.4, Neutrophils 12.18 BUN 67, CR 2.81 Troponin 0.155 03/16 Blood cultures: No growth after 5 days Treatment: Zosyn 3.375 GM IVPB Q8 HRS 03/14-03/18 then IVPB Q 12 HRS Azithromycin 500 MG IVPB Once then 500 MG PO Daily 03/07-03/08 Is there an additional diagnosis that is clinically appropriate for this patient? [ y] Sepsis, present on admission [ ] Sepsis, developed during stay, not present on admission [ ] Sepsis ruled out [ ] Severe Sepsis with organ failure [ ] Other, please specify [ ] Unable to determine SIRS Criteria: 2 or more of the following may indicate SIRS Temperature < 96.8F (36C) or > 101.0F (38.3C) Heart Rate > 90 bpm Respiratory Rate > 20 breaths/min or PaCO2 < 32 mmHg White Blood Cell Count > 12,000 or < 4,000 cells/mm3 or > 10% bands (Template Last Reviewed: June 2022) MTDD
--- NOTE | 2023-03-23 15:41 | P.PN ---
Subjective Progress Note Date: 03/22/23 Principal diagnosis: Sepsis/pneumonia Patient is a 77-year-old male with a past medical his significant for diabetes mellitus hypertension hyperlipidemia prostate disorder presenting to the hospital on 03/07/2023 for evaluation of increasing shortness of breath weakness and mental status changes, subsequently did have worsening of his respiratory status requiring transfer the ICU ended up getting intubated, the patient is status post bronchoscopy completed on 03/15/2023, patient did got dialysis catheter on 03/20/2023 through and got dialyzed On today's evaluation that is 03/22/2023, the patient continues to be afebrile, the patient is hemodynamically stable and the patient FiO2 is down to 55% , no significant purulent secretions through the ET or diarrhea or any other changes reported by the nursing staff Patient white count is down to 13.5, creatinine is 2.59 Objective - Vital Signs Vital signs: Vital Signs Temp 97.8 F 03/22/23 08:00 Pulse 111 H 03/22/23 11:00 Resp 25 H 03/22/23 11:00 BP 142/60 03/22/23 10:00 Pulse Ox 91 L 03/22/23 11:00 FiO2 55 03/22/23 11:00 Intake & Output 03/21/23 03/22/23 03/22/23 18:59 06:59 18:59 Intake Total 785.338 654.868 243.4 Output Total 2835 585 240 Balance -2049.662 69.868 3.4 Weight 115.3 kg Intake: IV 146 46 55 NS TKO 110 10 40 Pressure bag 36 36 15 Intake, IV Titration 239.338 608.868 188.4 Amount Diltiazem 125 mg In 124.333 Sodium Chloride 0.9% 100 ml @ 5 MG/HR 5 mls/hr IV .Q24H [facility] Rx#:[id number] Piperacillin-Tazobactam 3 100 100 .375 gm In Sodium Chloride 0.9% 100 ml @ 25 mls/hr IVPB Q12HR [facility] Rx #:[id number] propofoL 1,000 mg In 239.338 384.535 88.4 Empty Bag 1 bag @ 15 MCG/ KG/MIN 9.945 mls/hr IV . Q10H4M [facility] Rx#:[id number] Tube Feeding 0 Hemodialysis 400 Output: Urine 435 585 240 Hemodialysis 2400 Other: Voiding Method Indwelling Catheter Indwelling Catheter Indwelling Catheter ABP, PAP, CO, CI - Last Documented Arterial Blood Pressure 117/54 - Exam GENERAL DESCRIPTION: An elderly male intubated on the vent in no distress RESPIRATORY SYSTEM: Unlabored breathing , decreased breath sounds at bases HEART: S1 S2 regular rate and rhythm , ABDOMEN: Soft , no tenderness EXTREMITIES: No edema feet - Labs CBC & Chem 7: 03/23/23 04:48 03/23/23 04:48 Labs: Abnormal Lab Results - Last 24 Hours (Table) 03/21/23 03/21/23 03/21/23 Range/Units 12:05 12:10 17:42 WBC (3.8-10.6) k/uL RBC (4.30-5.90) m/uL Hgb (13.0-17.5) gm/dL Hct (39.0-53.0) % RDW (11.5-15.5) % Plt Count (150-450) k/uL Neutrophils # (1.3-7.7) k/uL Lymphocytes # (1.0-4.8) k/uL ABG pH (7.35-7.45) ABG pO2 (83-108) mmHg ABG Total CO2 27 H (19-24) mmol/L ABG O2 Saturation 98.1 H (94-97) % Sodium (137-145) mmol/L Carbon Dioxide (22-30) mmol/L BUN (9-20) mg/dL Creatinine (0.66-1.25) mg/dL Glucose (74-99) mg/dL POC Glucose (mg/dL) 165 H 194 H (70-110) mg/dL Calcium (8.4-10.2) mg/dL 03/21/23 03/22/23 03/22/23 Range/Units 20:15 00:15 04:10 WBC 13.5 H (3.8-10.6) k/uL RBC 2.41 L (4.30-5.90) m/uL Hgb 7.2 L (13.0-17.5) gm/dL Hct 22.1 L (39.0-53.0) % RDW 17.5 H (11.5-15.5) % Plt Count 101 L (150-450) k/uL Neutrophils # 12.7 H (1.3-7.7) k/uL Lymphocytes # 0.4 L (1.0-4.8) k/uL ABG pH (7.35-7.45) ABG pO2 (83-108) mmHg ABG Total CO2 (19-24) mmol/L ABG O2 Saturation (94-97) % Sodium (137-145) mmol/L Carbon Dioxide (22-30) mmol/L BUN (9-20) mg/dL Creatinine (0.66-1.25) mg/dL Glucose (74-99) mg/dL POC Glucose (mg/dL) 181 H 209 H (70-110) mg/dL Calcium (8.4-10.2) mg/dL 03/22/23 03/22/23 03/22/23 Range/Units 04:10 06:06 06:10 WBC (3.8-10.6) k/uL RBC (4.30-5.90) m/uL Hgb (13.0-17.5) gm/dL Hct (39.0-53.0) % RDW (11.5-15.5) % Plt Count (150-450) k/uL Neutrophils # (1.3-7.7) k/uL Lymphocytes # (1.0-4.8) k/uL ABG pH 7.33 L (7.35-7.45) ABG pO2 111 H (83-108) mmHg ABG Total CO2 (19-24) mmol/L ABG O2 Saturation 98.5 H (94-97) % Sodium 136 L (137-145) mmol/L Carbon Dioxide 19 L (22-30) mmol/L BUN 85 H (9-20) mg/dL Creatinine 2.59 H (0.66-1.25) mg/dL Glucose 186 H (74-99) mg/dL POC Glucose (mg/dL) 213 H (70-110) mg/dL Calcium 6.5 L (8.4-10.2) mg/dL Microbiology - Last 24 Hours (Table) 03/16/23 04:05 Blood Culture - Final Blood Assessment and Plan (1) Pneumonia Current Visit: No Status: Acute Code(s): J18.9 - PNEUMONIA, UNSPECIFIED ORGANISM SNOMED Code(s): 728052734 Plan: 1patient with acute respiratory failure which is multifactorial in this patient with initial presentation of sepsis possible pneumonia and also a component of fluid overload in this patient with evidence of renal failure 2-patient remains to be febrile and the patient white count is trending down, to continue with Zosyn and monitor his clinical course closely Dictation was produced using [employer] dictation software. please excuse any grammatical, word or spelling errors. Time with Patient: Less than 30
--- NOTE | 2023-03-23 15:42 | P.PN ---
Subjective Progress Note Date: 03/23/23 Principal diagnosis: Sepsis/pneumonia Patient is a 77-year-old male with a past medical his significant for diabetes mellitus hypertension hyperlipidemia prostate disorder presenting to the hospital on 03/07/2023 for evaluation of increasing shortness of breath weakness and mental status changes, subsequently did have worsening of his respiratory status requiring transfer the ICU ended up getting intubated, the patient is status post bronchoscopy completed on 03/15/2023, patient did got dialysis catheter on 03/20/2023 through and got dialyzed On today's evaluation that is 03/23/2023, the patient remains to be afebrile, the patient is remains to be intubated on the vent and FiO2 is stable at 55% , patient is hemodynamically stable not requiring any pressor support, no significant purulent secretions through the ET or diarrhea or any other changes reported by the nursing staff Patient white count is down to 12.3, creatinine is 2.12 Objective - Vital Signs Vital signs: Vital Signs Temp 98.3 F 03/23/23 12:00 Pulse 133 H 03/23/23 12:00 Resp 18 03/23/23 12:00 BP 142/60 03/23/23 05:00 Pulse Ox 91 L 03/23/23 12:00 FiO2 55 03/23/23 12:00 Intake & Output 03/22/23 03/23/23 03/23/23 18:59 06:59 18:59 Intake Total 948.9 673.4 425.085 Output Total 3445 1045 455 Balance -2496.1 -371.6 -29.915 Weight 115.3 kg 115.8 kg Intake: IV 146 143 178 NS TKO 110 110 60 Piperacillin-Tazobactam 3 100 .375 gm In Sodium Chloride 0.9% 100 ml @ 25 mls/hr IVPB Q8HR [facility] Rx# :[id number] Pressure bag 36 33 18 Intake, IV Titration 432.9 288.4 85.085 Amount Diltiazem 125 mg In 44.5 Sodium Chloride 0.9% 100 ml @ 5 MG/HR 5 mls/hr IV .Q24H [facility] Rx#:[id number] Piperacillin-Tazobactam 3 100 .375 gm In Sodium Chloride 0.9% 100 ml @ 25 mls/hr IVPB Q12HR [facility] Rx #:[id number] propofoL 1,000 mg In 288.4 288.4 85.085 Empty Bag 1 bag @ 15 MCG/ KG/MIN 9.945 mls/hr IV . Q10H4M [facility] Rx#:[id number] Tube Feeding 40 182 102 Hemodialysis 300 Other 30 60 60 Output: Urine 645 1045 455 Hemodialysis 2800 Other: Voiding Method Indwelling Catheter Indwelling Catheter ABP, PAP, CO, CI - Last Documented Arterial Blood Pressure 165/65 - Exam GENERAL DESCRIPTION: An elderly male intubated on the vent in no distress RESPIRATORY SYSTEM: Unlabored breathing , decreased breath sounds at bases HEART: S1 S2 regular rate and rhythm , ABDOMEN: Soft , no tenderness EXTREMITIES: No edema feet - Labs CBC & Chem 7: 03/23/23 04:48 03/23/23 04:48 Labs: Abnormal Lab Results - Last 24 Hours (Table) 03/22/23 03/23/23 03/23/23 Range/Units 17:56 00:02 04:48 WBC 12.3 H (3.8-10.6) k/uL RBC 2.52 L (4.30-5.90) m/uL Hgb 7.5 L (13.0-17.5) gm/dL Hct 22.7 L (39.0-53.0) % RDW 17.4 H (11.5-15.5) % Plt Count 112 L (150-450) k/uL ABG pO2 (83-108) mmHg ABG Total CO2 (19-24) mmol/L Sodium (137-145) mmol/L Chloride (98-107) mmol/L BUN (9-20) mg/dL Creatinine (0.66-1.25) mg/dL Glucose (74-99) mg/dL POC Glucose (mg/dL) 184 H 200 H (70-110) mg/dL Calcium (8.4-10.2) mg/dL 03/23/23 03/23/23 03/23/23 Range/Units 04:48 05:30 05:47 WBC (3.8-10.6) k/uL RBC (4.30-5.90) m/uL Hgb (13.0-17.5) gm/dL Hct (39.0-53.0) % RDW (11.5-15.5) % Plt Count (150-450) k/uL ABG pO2 75 L (83-108) mmHg ABG Total CO2 26 H (19-24) mmol/L Sodium 134 L (137-145) mmol/L Chloride 95 L (98-107) mmol/L BUN 61 H (9-20) mg/dL Creatinine 2.12 H (0.66-1.25) mg/dL Glucose 195 H (74-99) mg/dL POC Glucose (mg/dL) 225 H (70-110) mg/dL Calcium 6.8 L (8.4-10.2) mg/dL 03/23/23 Range/Units 11:34 WBC (3.8-10.6) k/uL RBC (4.30-5.90) m/uL Hgb (13.0-17.5) gm/dL Hct (39.0-53.0) % RDW (11.5-15.5) % Plt Count (150-450) k/uL ABG pO2 (83-108) mmHg ABG Total CO2 (19-24) mmol/L Sodium (137-145) mmol/L Chloride (98-107) mmol/L BUN (9-20) mg/dL Creatinine (0.66-1.25) mg/dL Glucose (74-99) mg/dL POC Glucose (mg/dL) 245 H (70-110) mg/dL Calcium (8.4-10.2) mg/dL Assessment and Plan (1) Pneumonia Current Visit: No Status: Acute Code(s): J18.9 - PNEUMONIA, UNSPECIFIED ORGANISM SNOMED Code(s): 401310657 Plan: 1patient with acute respiratory failure which is multifactorial in this patient with initial presentation of sepsis possible pneumonia and also a component of fluid overload in this patient with evidence of renal failure 2-patient remains to be febrile and the patient white count is trending down 3-patient to continue with Zosyn and continue supportive care Dictation was produced using [employer] dictation software. please excuse any grammatical, word or spelling errors. Time with Patient: Less than 30
[2023-03-23] MEDS: CLEVIDIPINE BUTYRATE 25 MG in EMPTY BAG 1 BAG IV SCH (15:58)
[2023-03-23] MEDS: carvediloL 12.5 MG TAB PO SCH (16:55)
[2023-03-23 18:02] LABS: Glucose,Whole Blood 256 mg/dL (70-110)
[2023-03-23] MEDS: DILTIAZEM ORAL 30 MG TAB PO SCH ×2 (18:06→23:51)
[2023-03-23] MEDS: INSULIN DETEMIR (LEVEMIR) 100 UNIT/ML SYR SQ SCH (20:36)
[2023-03-23 23:34] LABS: Glucose,Whole Blood 254 mg/dL (70-110)
[2023-03-24] MEDS: IPRATROPIUM-ALBUTEROL 3 ML NEB INHALATION SCH ×6 (00:54→20:12)
[2023-03-24] MEDS: HYDROmorphone 1 MG/ML 1 ML SYRINGE IVP PRN ×4 (04:17→18:33)
[2023-03-24 04:42] LABS: Anisocytosis Slight; HCT 22.3 % (39.0-53.0); HGB 7.5 gm/dL (13.0-17.5); MCH 29.7 pg (25.0-35.0); MCHC 33.7 g/dL (31.0-37.0); MCV 88.2 fL (80.0-100.0); Mean Platelet Volume 14.9; Platelet Count 111 k/uL (150-450); RBC 2.53 m/uL (4.30-5.90); RDW 17.2 % (11.5-15.5); WBC 15.4 k/uL (3.8-10.6)
[2023-03-24 04:53] LABS: African American GFR (CKD) 29 (>60 ml/min/1.73 sqM); Anion Gap 10 mmol/L; Blood Urea Nitrogen 72 mg/dL (9-20); Carbon Dioxide 27 mmol/L (22-30); Chloride 94 mmol/L (98-107); Glucose 215 mg/dL (74-99); Non-African American GFR(CKD) 25 (>60 ml/min/1.73 sqM); Potassium 3.5 mmol/L (3.5-5.1); Sodium 131 mmol/L (137-145)
[2023-03-24] MEDS: POTASSIUM BICARBONATE/CIT AC 20 MEQ TABLET.EFF NG-TUBE SCH ×2 (05:06→05:58)
[2023-03-24] MEDS: DILTIAZEM ORAL 30 MG TAB PO SCH ×3 (05:58→15:44)
[2023-03-24 05:59] LABS: ABG Base Excess 2.1 mmol/L; ABG HCO3 27 mmol/L (21-25); ABG Oxygen Saturation 95.5 % (94-97); ABG PCO2 43 mmHg (35-45); ABG PH 7.41 (7.35-7.45); ABG PO2 74 mmHg (83-108); ABG TCO2 28 mmol/L (19-24); Allen Test Performed? Yes
[2023-03-24 06:14] LABS: Glucose,Whole Blood 253 mg/dL (70-110)
[2023-03-24 06:26] LABS: Glucose,Whole Blood 241 mg/dL (70-110)
[2023-03-24] MEDS: INSULIN ASPART (NovoLOG) 100 UNIT/ML VIAL SQ SCH ×4 (06:38→23:43)
[2023-03-24] MEDS: carvediloL 12.5 MG TAB PO SCH ×2 (06:39→15:44)
[2023-03-24] MEDS: CALCIUM ACETATE 667 MG TAB PO SCH ×3 (06:39→15:44)
--- NOTE | 2023-03-24 07:28 | XR ---
EXAMINATION TYPE: XR chest 1V portable DATE OF EXAM: 03/24/2023 HISTORY: Shortness of breath. COMPARISON: 03/23/2023 TECHNIQUE: Single view of the chest is submitted. FINDINGS: Demonstrated are scattered senescent parenchymal change. Extensive interstitial and alveolar infiltrates throughout both lung jackson appears essentially uncha nged. Endotracheal and NG tubes are in stable position. The heart is stable. Hilar and mediastinal structures are within normal limits. Degenerative changes are seen of the dorsal spine. IMPRESSION: 1. Extensive interstitial and alveolar infiltrates throughout both lung jackson appears essentially u nchanged.
[2023-03-24] MEDS: FORMOTEROL FUMARATE 20 MCG/2 ML NEBU INHALATION SCH ×2 (07:56→20:12)
[2023-03-24] MEDS: BUDESONIDE 1 MG/2 ML NEBU INHALATION SCH ×2 (08:16→20:12)
[2023-03-24] MEDS: PANTOPRAZOLE 40 MG/10 ML VIAL IVP SCH ×2 (08:25→20:33)
[2023-03-24] MEDS: LEVOTHYROXINE IVP 100 MCG/5 ML VIAL IV SCH (08:25)
[2023-03-24] MEDS: methylPREDNISolone SOD SUCCI 40 MG/ML 1 ML VIAL IV SCH ×2 (08:25→20:34)
[2023-03-24] MEDS: amLODIPine 2.5 MG TAB PO SCH (08:25)
[2023-03-24] MEDS: metOLazone 2.5 MG TAB PO SCH (08:25)
[2023-03-24] MEDS: PIPERACILLIN-TAZOBACTAM 3.375 GM in SODIUM CHLORIDE 0.9% 100 ML IVPB SCH ×2 (08:26→20:34)
[2023-03-24] MEDS: hydrALAZINE HCL 50 MG TAB PO SCH ×2 (08:26→15:43)
[2023-03-24] MEDS: CHLORHEXIDINE GLUCONATE 15 ML CUP MUCOUS MEM SCH ×2 (08:26→20:34)
[2023-03-24] MEDS: FUROSEMIDE 10 MG/ML 10 ML VIAL IV SCH ×3 (08:26→23:39)
[2023-03-24] MEDS: SODIUM CHLORIDE 0.9% 1,000 ML IV SCH (08:27)
[2023-03-24] MEDS: HYDROPHILIC CREAM 180 GM TUBE TOPICAL SCH (08:27)
[2023-03-24 11:21] LABS: Glucose,Whole Blood 126 mg/dL (70-110)
[2023-03-24] MEDS: DARBEPOETIN ALFA 40 MCG/0.4 ML SYRINGE SQ SCH (11:48)
--- NOTE | 2023-03-24 12:09 | P.PN ---
Subjective Patient is seen for follow-up for acute kidney injury and top of chronic kidney disease. Started hemodialysis on 03/20/2023 for ATN and volume overload. Urine output at 60-150 mL per hour Off of Cardizem drip Patient remains on the vent Currently seen on hemodialysis. Tolerating treatment well. Family considering possible comfort care measures Objective - Vital Signs Vital signs: Vital Signs Temp 99.0 F 03/24/23 11:41 Pulse 105 H 03/24/23 11:41 Resp 17 03/24/23 11:41 BP 146/60 03/24/23 11:41 Pulse Ox 90 L 03/24/23 11:00 FiO2 55 03/24/23 10:43 Intake & Output 03/23/23 03/24/23 03/24/23 18:59 06:59 18:59 Intake Total 826.248 875.423 733.19 Output Total 980 1350 2670 Balance -153.752 -474.577 -1936.81 Weight 111.7 kg Intake: IV 256 156 62 NS TKO 120 120 50 Piperacillin-Tazobactam 3 100 .375 gm In Sodium Chloride 0.9% 100 ml @ 25 mls/hr IVPB Q8HR [facility] Rx# :[id number] Pressure bag 36 36 12 Intake, IV Titration 276.248 425.423 286.19 Amount Piperacillin-Tazobactam 3 100 .375 gm In Sodium Chloride 0.9% 100 ml @ 25 mls/hr IVPB Q12HR [facility] Rx #:[id number] propofoL 1,000 mg In 276.248 425.423 186.19 Empty Bag 1 bag @ 15 MCG/ KG/MIN 9.945 mls/hr IV . Q10H4M [facility] Rx#:[id number] Tube Feeding 204 204 85 Hemodialysis 300 Other 90 90 Output: Urine 980 1350 370 Hemodialysis 2300 Other: Voiding Method Indwelling Catheter Indwelling Catheter Indwelling Catheter ABP, PAP, CO, CI - Last Documented Arterial Blood Pressure 112/56 - Exam Patient is sedated and on the vent Examination of the heart shows tachycardia, A. fib Examination of the lungs bilateral breath sounds are heard Abdomen is soft Examination lower extremity shows edema 2+ bilaterally - Labs CBC & Chem 7: 03/24/23 04:26 03/24/23 04:26 Labs: Abnormal Lab Results - Last 24 Hours (Table) 03/23/23 03/23/23 03/24/23 Range/Units 18:00 23:33 04:26 WBC 15.4 H (3.8-10.6) k/uL RBC 2.53 L (4.30-5.90) m/uL Hgb 7.5 L (13.0-17.5) gm/dL Hct 22.3 L (39.0-53.0) % RDW 17.2 H (11.5-15.5) % Plt Count 111 L (150-450) k/uL ABG pO2 (83-108) mmHg ABG HCO3 (21-25) mmol/L ABG Total CO2 (19-24) mmol/L Sodium (137-145) mmol/L Chloride (98-107) mmol/L BUN (9-20) mg/dL Creatinine (0.66-1.25) mg/dL Glucose (74-99) mg/dL POC Glucose (mg/dL) 256 H 254 H (70-110) mg/dL Calcium (8.4-10.2) mg/dL 03/24/23 03/24/23 03/24/23 Range/Units 04:26 05:54 06:13 WBC (3.8-10.6) k/uL RBC (4.30-5.90) m/uL Hgb (13.0-17.5) gm/dL Hct (39.0-53.0) % RDW (11.5-15.5) % Plt Count (150-450) k/uL ABG pO2 74 L (83-108) mmHg ABG HCO3 27 H (21-25) mmol/L ABG Total CO2 28 H (19-24) mmol/L Sodium 131 L (137-145) mmol/L Chloride 94 L (98-107) mmol/L BUN 72 H (9-20) mg/dL Creatinine 2.41 H (0.66-1.25) mg/dL Glucose 215 H (74-99) mg/dL POC Glucose (mg/dL) 253 H (70-110) mg/dL Calcium 7.0 L (8.4-10.2) mg/dL 03/24/23 03/24/23 Range/Units 06:25 11:20 WBC (3.8-10.6) k/uL RBC (4.30-5.90) m/uL Hgb (13.0-17.5) gm/dL Hct (39.0-53.0) % RDW (11.5-15.5) % Plt Count (150-450) k/uL ABG pO2 (83-108) mmHg ABG HCO3 (21-25) mmol/L ABG Total CO2 (19-24) mmol/L Sodium (137-145) mmol/L Chloride (98-107) mmol/L BUN (9-20) mg/dL Creatinine (0.66-1.25) mg/dL Glucose (74-99) mg/dL POC Glucose (mg/dL) 241 H 126 H (70-110) mg/dL Calcium (8.4-10.2) mg/dL Assessment and Plan Assessment: 1. Acute kidney injury secondary to ATN secondary to hemodynamic instability and infection. Nonoliguric. No hydronephrosis noted on kidney ultrasound. Right kidney wasn't properly visualized. Left kidney is atrophic. Disproportionately elevated BUN secondary to anemia as well as steroids. Started on hemodialysis 03/20/2023. 2. Chronic kidney disease stage IV with baseline creatinine 2-2.5. 3. Hypernatremia from free water diuresis and lack of oral water intake. Status post D5W. Improved. 4. Hypokalemia from diuresis. No hyperkalemic. 5. Acute hypoxic respiratory failure secondary to pneumonia and volume overload. Status post bronchoscopy 03/15/2023. 6. Pneumonia on antibiotics. 7. Acute blood loss anemia. Status post blood transfusion this admission. Also received IV DDAVP. Heparin drip stopped. On Aranesp. Hemoglobin 7.7 this morning. 8. Hyperphosphatemia secondary to acute kidney injury. Plan: Increase Lasix
--- NOTE | 2023-03-24 12:09 | P.PN ---
Subjective Progress Note Date: 03/24/23 Principal diagnosis: Acute hypoxic respiratory failure, suspect healthcare acquired pneumonia and ARDS. On today's evaluation of 03/23/2023, I'm seeing the patient in the intensive care unit. At this point in time, the patient is intubated on a mechanical ventilator. Overnight, the patient became acutely hypoxic and more short of breath and he developed diffuse but the pulmonary infiltrates consistent with pneumonia and based on that the patient was intubated and placed on a mechanical ventilator. Note that this patient is 77 years of age. He has diabetes mellitus type 2, chronic kidney disease, hypothyroidism, COPD, hyperlipidemia and hypertension. He was also recently treated for cellulitis of lower extremity, discharged to [facility] for IV antibiotics through a PICC line in his right upper extremity and he received and completed the course of daptomycin. Discharged home to be readmitted for shortness of breath to our hospital on 03/08/2023. Note that the patient was being supported with BiPAP as various pressures. His proBNP level was elevated. His echocardiograms was recent showed a preserved LV function without any significant abnormalities. He was gi fransisco bronchodilators. He was given IV Solu-Medrol. He was given IV Lasix. Another dose of Lasix was given to him by the nurse practitioner at 2:30 AM this morning. He has a Meneses catheter in place. Urine output is in order of 100 mL an hour. At this point in time, the patient remains on mechanical ventilator. He was quite a successful the mechanical ventilator and he was having frequent episodes of desaturation. He is on propofol running at 55 mcg/kg/m. I switched this patient's blood pressure control mode of mechanical ventilation and currently is on a pressure control of 12, rate of 26, PEEP of 12 with a FiO2 of 60%. His current pulse ox is 95%. He is on IV heparin and this was I believe initiated due to concerns of pulmonary embolism, on an empiric basis. The echoes at 18.9, hemoglobin is at 7.2, platelet count of 179, most recent blood gas showed a pH of 7.38 with a pCO2 of 43 and pO2 of 140. BUN is at 97 with a creatinine of 2.8, sodium level is at 156 and a potassium level is at 2.9. IV fluids are at KVO, 0.9. On 03/20/2023, I'm seeing the patient for a follow-up. Unfortunately, not a whole lot of progress since yesterday. He was started on diuretics yesterday and urine output remained insufficient and the patient remains in a positive fluid balance. At the same time, the patient continues to have dense consolidations of the lung bases bilaterally. The patient remains on a mechanical ventilator. The patient remains sedated on propofol which is running at 50 mcg/kg/m. He is on a pressure control mode of mechanical ventilation with a pressure control of 12, rate of 26, FiO2 of 60% with a PEEP of 12. Blood gas shows respiratory acidosis with a pH of 7.19 with a pCO2 of 52 and pO2 of 113. The patient's BUN is at 139, creatinine is higher compared to yesterday at 3.7. Sodium is at 140. The white cell count is currently at 17.7 which is improved compared to yesterday with a hemoglobin of 8.5 and a platelet count of 100 with is essentially stable. The patient remains on IV Zosyn. He is afebrile. The patient is currently nothing by mouth. He was having episodic drop in hemoglobin and he has received packed RBC transfusion and the last transfusion was yesterday. Hemoglobin currently stable. The output from the OG is 150 cc, coffee-ground/dark possibly indicating an upper GI bleed. He remains nothing by mouth. He remains on IV Protonix. No melanotic stools. Blood sugar control is adequate and the patient is currently on Levemir insulin. On 03/21/2023, the patient is essentially the same intubated on a mechanical ventilator. He was started hemodialysis yesterday. He received the first session of hemodialysis with 2 L of fluid removal and is going to have another session today. He has a right femoral triple-lumen catheter in place. He remains sedated on propofol which is currently running at 45 mcg/kg/m. His b lood pressure was noted to be elevated and the patient was started on Cleviprex strep which was subsequently discontinued. His calm and comfortable and symptoms of the mechanical ventilator. Is on a pressure control mode at a rate of 30, pressure of 16 cm of water and FiO2 of 60% with a PEEP of 12. Blood gas shows some improvement in his oxygenation. PH is at 7.25 with a pCO2 of 43 and pO2 125. Chest x-ray findings are essentially unchanged with dense consolidations bilaterally. Orotracheal tube is in a good location. He also has a orogastric tube in place and output from the stomach is quite minimal yet bloody and there is obvious coffee-ground material. No bright blood per rectum. No melanotic stools. His hemoglobin is dropped slightly is currently at 7.7. He is on no pressors for now. He remains nothing by mouth. Cardiac rhythm is sinus. Patient was reevaluated , remains intubated and mechanically ventilated, remains in the ICU, patient is on pressure control mode of mechanical ventilation, rate is set at 30 inspiratory time is 0.951, down to 0.80 FiO2 60% I cut it down to 55% PEEP remains high at 12 ABG showed a pO2 of 111 pCO2 43 pH of 7.33 patient remains on Cardizem for atrial fibrillation with RVR is also on propofol at 50 mcg/kg/m received hemodialysis on 03/20 and L were removed. Received 2 units of packed RBCs for hemoglobin of 7.2 continues to have some coffee-ground material and nasogastric tube, but we'll restart tube feeding. Chest x-ray continues to show bilateral diffuse interstitial infiltrates consistent with ARDS, underlying pneumonia or underlying pulmonary edema is not entirely ruled out, but I believe this is mostly noncardiogenic pulmonary edema is not improving much even with hemodialysis. WBC count of 15.5 hemoglobin 7.2 basic metabolic profile is relatively normal except for bicarb of 19 BUN of 85 creatinine 2.59 blood cultures sputum cultures and bronchial cultures are all negative. Reevaluated today on 03/23/2023, patient remains in the ICU, intubated and mechanically ventilated. Patient is on assist control rate of 30, pressure control mode 16, inspiratory time is 0.8 FiO2 55% PEEP of 12 ABG showed a pO2 of 75 pCO2 41 pH of 7.39 patient remains sedated, on propofol at 50 mcg/kg/m receiving Nepro at 17 mL per hour. Patient is on hemodialysis, last dialysis was yesterday and 2 L were removed. Remains on Zosyn, and I'm arranging for the patient to have a PICC line today. Patient was actually intubated initially on 03/15, and family may have to be approached sometime by the end of the week r egarding tracheostomy and PEG tube placement unless the patient makes a dramatic improvement and he could be weaned and extubated. I'm not seeing that happening in the near future. Chest x-ray continues to show evidence of bilateral interstitial edema/infiltrates, consistent with ARDS. Patient continues to have atrial fibrillation with RVR. And that is being addressed by cardiology. WBC count today is 12.3 hemoglobin is 7.5 electrolytes are normal BUN is 61 creatinine 2.12 ABG as noted earlier. Reevaluated today on 03/24/2023, patient remains in the ICU intubated and mechanically ventilated, sedated, patient is on assist control rate of 30 pressure-controlled 16 inspiratory time 0.8 FiO2 55% and PEEP of 12 ABG is not showing any change pO2 of 74 pCO2 43 pH of 7.41, not much different from the ABG yesterday. Patient did not have hemodialysis yesterday but he is having hemodialysis today, and the goal is to remove 2.5 L at least. Continues to have urine output of 50-75 mL per hour with Lasix 60 mg IV push twice a day remains on Zosyn remains on enteral feeding/Nepro is also on propofol at 50 mcg/kg/m. Hemodynamically not requiring any pressors. WBC count is 15.4 hemoglobin is 7.5 sodium 131 potassium 3.5 BUN is 72 creatinine 2.41 chest x-ray continues to show bilateral interstitial infiltrates/edema. Not much of a change in the last few days Objective - Vital Signs Vital signs: Vital Signs Temp 99.0 F 03/24/23 11:41 Pulse 105 H 03/24/23 11:41 Resp 17 03/24/23 11:41 BP 146/60 03/24/23 11:41 Pulse Ox 90 L 03/24/23 11:00 FiO2 55 03/24/23 10:43 Intake & Output 03/23/23 03/24/23 03/24/23 18:59 06:59 18:59 Intake Total 826.248 875.423 733.19 Output Total 980 1350 2670 Balance -153.752 -474.577 -1936.81 Weight 111.7 kg Intake: IV 256 156 62 NS TKO 120 120 50 Piperacillin-Tazobactam 3 100 .375 gm In Sodium Chloride 0.9% 100 ml @ 25 mls/hr IVPB Q8HR [facility] Rx# :[id number] Pressure bag 36 36 12 Intake, IV Titration 276.248 425.423 286.19 Amount Piperacillin-Tazobactam 3 100 .375 gm In Sodium Chloride 0.9% 100 ml @ 25 mls/hr IVPB Q12HR [facility] Rx #:[id number] propofoL 1,000 mg In 276.248 425.423 186.19 Empty Bag 1 bag @ 15 MCG/ KG/MIN 9.945 mls/hr IV . Q10H4M [facility] Rx#:[id number] Tube Feeding 204 204 85 Hemodialysis 300 Other 90 90 Output: Urine 980 1350 370 Hemodialysis 2300 Other: Voiding Method Indwelling Catheter Indwelling Catheter Indwelling Catheter ABP, PAP, CO, CI - Last Documented Arterial Blood Pressure 112/56 - Exam Physical Exam: Revealed 77-year-old male intubated and mechanically ventilated sedated on propofol in no distress Head: Atraumatic, normocephalic. Orogastric tube is intact, endotracheal tube is HEENT:[Neck is supple.] [No neck masses.] [No thyromegaly.] [No JVD.] Chest: [Scattered crackles and rhonchi noted bilaterally.] Cardiac Exam: [Normal S1 and S2, no S3 gallop, no murmur.] Abdomen: [Soft, nontender, no megaly, no rebound, no guarding, normal bowel sounds.] Extremities: [No clubbing, 2+ bipedal edema diminished distal pulses Neurological Exam: Not assess fully sedated on propofol Psychiatric: Could not be assessed fully sedated - Labs CBC & Chem 7: 03/24/23 04:26 03/24/23 04:26 Labs: Abnormal Lab Results - Last 24 Hours (Table) 03/23/23 03/23/23 03/24/23 Range/Units 18:00 23:33 04:26 WBC 15.4 H (3.8-10.6) k/uL RBC 2.53 L (4.30-5.90) m/uL Hgb 7.5 L (13.0-17.5) gm/dL Hct 22.3 L (39.0-53.0) % RDW 17.2 H (11.5-15.5) % Plt Count 111 L (150-450) k/uL ABG pO2 (83-108) mmHg ABG HCO3 (21-25) mmol/L ABG Total CO2 (19-24) mmol/L Sodium (137-145) mmol/L Chloride (98-107) mmol/L BUN (9-20) mg/dL Creatinine (0.66-1.25) mg/dL Glucose (74-99) mg/dL POC Glucose (mg/dL) 256 H 254 H (70-110) mg/dL Calcium (8.4-10.2) mg/dL 03/24/23 03/24/23 03/24/23 Range/Units 04:26 05:54 06:13 WBC (3.8-10.6) k/uL RBC (4.30-5.90) m/uL Hgb (13.0-17.5) gm/dL Hct (39.0-53.0) % RDW (11.5-15.5) % Plt Count (150-450) k/uL ABG pO2 74 L (83-108) mmHg ABG HCO3 27 H (21-25) mmol/L ABG Total CO2 28 H (19-24) mmol/L Sodium 131 L (137-145) mmol/L Chloride 94 L (98-107) mmol/L BUN 72 H (9-20) mg/dL Creatinine 2.41 H (0.66-1.25) mg/dL Glucose 215 H (74-99) mg/dL POC Glucose (mg/dL) 253 H (70-110) mg/dL Calcium 7.0 L (8.4-10.2) mg/dL 03/24/23 03/24/23 Range/Units 06:25 11:20 WBC (3.8-10.6) k/uL RBC (4.30-5.90) m/uL Hgb (13.0-17.5) gm/dL Hct (39.0-53.0) % RDW (11.5-15.5) % Plt Count (150-450) k/uL ABG pO2 (83-108) mmHg ABG HCO3 (21-25) mmol/L ABG Total CO2 (19-24) mmol/L Sodium (137-145) mmol/L Chloride (98-107) mmol/L BUN (9-20) mg/dL Creatinine (0.66-1.25) mg/dL Glucose (74-99) mg/dL POC Glucose (mg/dL) 241 H 126 H (70-110) mg/dL Calcium (8.4-10.2) mg/dL Assessment and Plan Assessment: Impression: Acute hypoxic respiratory failure, suspect healthcare acquired pneumonia, noncardiogenic pulmonary edema, ARDS. Acute on chronic kidney disease, patient is on hemodialysis, chest x-ray is not improving much in spite of hemodialysis Upper GI bleeding with episodic drop in hemoglobin, requiring at times blood- tinged transfusion Bilateral lower extremity edema Acute non-ST elevation myocardial infarction Anemia of chronic disease and possible some component of new onset GI bleeding History of stage III chronic kidney disease Type 2 diabetes with diabetic nephropathy Benign essential hypertension Hypothyroidism History of BPH Recommendation: Continue ventilatory support Continue pressure control mode of mechanical ventilation. No changes made in the ventilator settings today Continue hemodialysis Continue antibiotics empirically Continue empiric antibiotics Continue enteral feeding/ nutritional support Continue to monitor urine output, input and output are patient is making about 50-75 mL of urine per hour but his son receiving Lasix 60 mg twice a day Continue to monitor renal functioning Patient remains critically ill, no work ready for any weaning , I updated his yesterday on his condition clearly the is against IDF considering tracheostomy and PEG tube placement she may actually consider terminal weaning. But that is yet to be decided upon CODE STATUS was changed yesterday to DO NOT RESUSCITATE CODE STATUS Remains critically ill Critical care time is over 30 minutes Time with Patient: Greater than 30
[2023-03-24 13:42] VITALS: BP 143/87
--- NOTE | 2023-03-24 14:16 | P.PN ---
Subjective Progress Note Date: 03/24/23 Paroxysmal atrial fibrillation This is a 77-year-old gentleman with coronary artery disease and congestive heart failure as well as chronic kidney disease and multiple comorbid conditions was admitted to the hospital with change in mental status and he was diagnosed with pneumonia. We consulted to see the patient because of bradycardia and also because of atrial fibrillation. On presentation to the hospital he was in respiratory distress and was intubated 03/15/2023 The patient was seen and evaluated this morning. He is currently intubated and he is on mechanical ventilation. Hemodynamically he is a stable as a matter of fact he is hypertensive. He is bradycardic with heart rate in the 40s and he is in sinus bradycardia. At the same time work from this morning showed hypokalemia and he continues to be in renal failure with creatinine of 2.8. He is on heparin IV for oral anticoagulation with a chest x-ray showed bilateral infiltrate definitely concerning for pneumonia. March 162022 The patient was seen and evaluated this morning. He continues to be intubated on mechanical ventilation. Hemodynamically he is a stable beside bradycardia with heart rate in the 50s. His hemoglobin drop to below 7 and currently is in process of receiving blood. For that reason heparin was stopped. He is on Lasix per nephrology service. Creatinine is 3 this morning. Examination is remarkable for regular rhythm with diminished breathing sounds bilaterally and bilateral lower extremity 03/17/2023 The patient was seen and evaluated this morning. He continues to be intubated and on mechanical ventilation. Hemodynamically he is stable and currently he is not on any vasopressors. As a matter of fact the bradycardia has improved. He is bradycardic only intermittently. He is not on any AV ayan blockers at this point. Hemoglobin has been stable at 7.1 this morning. He receives 1 unit of packed RBC yesterday. He is not bleeding. He is not on any anticoagulation at this point which I would agree on to rule out any gastrointestinal bleeding etiology. The kidney function is worse today. He was on Lasix and that has a systolic. Examination is remarkable for diminished breathing sounds bilaterally and mild bilateral lower extremity edema March 182022 The patient was seen and evaluated this morning. He continues to be sedated and intubated on mechanical ventilation. Hemodynamically he continues to be stable and not on any vasopressors. He has been maintaining normal sinus mechanism was sinus bradycardia. Currently he is not on any beta zurdo agents. Hemoglobin this morning is 7.5. Currently he is not on any oral anticoagulation. No issues with the bleeding. We would continue holding any anticoagulation at this point the hemoglobin is more stable and to rule out any gastrointestinal bleeding related issues. 03/19/2023 The patient was seen and evaluated this morning. He continues to be intubated and he is currently on mechanical ventilation. Nothing changed from that standpoint overview. Unfortunately the hemoglobin dropped again and today is 6.9. He is in process of receiving some blood. For that reason we should continue holding on any oral anticoagulation at this point. Kidney function remains elevated. Nephrology service is on the case. He is maintaining normal sinus mechanism was sinus bradycardia. The examination is remarkable for bilateral lower extremities edema and bilateral upper extremities edema March [id number] The patient was seen and evaluated this morning. He is on dialysis at this point. Hemodynamically he seems to be stable. The hemoglobin is a stable as well. He has been maintaining normal sinus mechanism. Anticoagulation is on hold at this point. 03/22 Patient seen and examined. He received dialysis today with approximately 2 L output. Still making some urine with IV Lasix 60 mg twice a day. Blood pressure on the higher end and somewhat labile however more consistently in the 160s 180s. He has been in and out of atrial fibrillation and initially was restarted on Cardizem drip however did have some bradycardia and some pauses. On review of this appears mostly sinus rhythm with PVCs and occasional blocked PACs. No obvious second-degree type II block. Therefore discussed restarting AV ayan blocking agents. We will switch him to carvedilol. He is started on tube feeds today. Able to be weaned somewhat on the oxygen down from 60% to 55%. Still has significant lower extremity and upper extremity edema. He has not been on anticoagulation secondary to anemia with patient receiving 2 blood transfusions and scheduled for a scope in approximately 2 days. No hematochezia or melena. 03/23 Patient seen and examined. Patient remains on ventilator and intubated and sedated. Creatinine mildly improving to 2.1, hemoglobin 7.5. Remains in A. fib with heart rates 120s to 130s. Carvedilol was initiated yesterday. There was some concern regarding heart degree AV block however no significant block and appeared to be PACs/PVCs yesterday. The examination is remarkable for bilateral lower extremities edema and diminished breathing sounds bilaterally and altered mental status 03/24 Blood pressure 160/74, heart rate 110 220 beats a minute continues to be in atrial flutter with rapid ventricular response. Hemoglobin 7.5, creatinine 2.1 hemoglobin is stable at 7.5. Carvedilol was initiated on 03/22. We have been increasing his dose over last 2 days which is tolerating well without concerns of any AV blocks. Assessment Change in mental status Pneumonia Paroxysmal atrial fibrillation. Currently the patient is in sinus rhythm Sinus bradycardia Severe electrolytes abnormalities Acute on chronic renal failure Multiple comorbid conditions Anemia Acute kidney injury Plan No evidence of high degree AV block Increase carvedilol from 12.5 up to 25 twice a day. Continue Cardizem 30 mg every 6 hours for better rate control as well as blood pressure control Monitor blood pressure Monitor neurologic recovery Continue supportive care, prognosis guarded Holding anticoagulation until hemoglobin stable Objective - Vital Signs Vital signs: Vital Signs Temp 98.7 F 03/24/23 12:00 Pulse 114 H 03/24/23 13:00 Resp 17 03/24/23 13:00 BP 146/60 03/24/23 11:41 Pulse Ox 91 L 03/24/23 13:00 FiO2 55 03/24/23 12:00 Intake & Output 03/23/23 03/24/23 03/24/23 18:59 06:59 18:59 Intake Total 826.248 875.423 900.54 Output Total 980 1350 2785 Balance -153.752 -474.577 -1884.46 Weight 111.7 kg Intake: IV 256 156 88 NS TKO 120 120 70 Piperacillin-Tazobactam 3 100 .375 gm In Sodium Chloride 0.9% 100 ml @ 25 mls/hr IVPB Q8HR [facility] Rx# :[id number] Pressure bag 36 36 18 Intake, IV Titration 276.248 425.423 363.54 Amount Piperacillin-Tazobactam 3 100 .375 gm In Sodium Chloride 0.9% 100 ml @ 25 mls/hr IVPB Q12HR [facility] Rx #:[id number] propofoL 1,000 mg In 276.248 425.423 263.54 Empty Bag 1 bag @ 15 MCG/ KG/MIN 9.945 mls/hr IV . Q10H4M [facility] Rx#:[id number] Oral 30 Tube Feeding 204 204 119 Hemodialysis 300 Other 90 90 Output: Urine 980 1350 485 Hemodialysis 2300 Other: Voiding Method Indwelling Catheter Indwelling Catheter Indwelling Catheter ABP, PAP, CO, CI - Last Documented Arterial Blood Pressure 168/67 - Labs CBC & Chem 7: 03/24/23 04:26 03/24/23 04:26 Labs: Abnormal Lab Results - Last 24 Hours (Table) 03/23/23 03/23/23 03/24/23 Range/Units 18:00 23:33 04:26 WBC 15.4 H (3.8-10.6) k/uL RBC 2.53 L (4.30-5.90) m/uL Hgb 7.5 L (13.0-17.5) gm/dL Hct 22.3 L (39.0-53.0) % RDW 17.2 H (11.5-15.5) % Plt Count 111 L (150-450) k/uL ABG pO2 (83-108) mmHg ABG HCO3 (21-25) mmol/L ABG Total CO2 (19-24) mmol/L Sodium (137-145) mmol/L Chloride (98-107) mmol/L BUN (9-20) mg/dL Creatinine (0.66-1.25) mg/dL Glucose (74-99) mg/dL POC Glucose (mg/dL) 256 H 254 H (70-110) mg/dL Calcium (8.4-10.2) mg/dL 03/24/23 03/24/23 03/24/23 Range/Units 04:26 05:54 06:13 WBC (3.8-10.6) k/uL RBC (4.30-5.90) m/uL Hgb (13.0-17.5) gm/dL Hct (39.0-53.0) % RDW (11.5-15.5) % Plt Count (150-450) k/uL ABG pO2 74 L (83-108) mmHg ABG HCO3 27 H (21-25) mmol/L ABG Total CO2 28 H (19-24) mmol/L Sodium 131 L (137-145) mmol/L Chloride 94 L (98-107) mmol/L BUN 72 H (9-20) mg/dL Creatinine 2.41 H (0.66-1.25) mg/dL Glucose 215 H (74-99) mg/dL POC Glucose (mg/dL) 253 H (70-110) mg/dL Calcium 7.0 L (8.4-10.2) mg/dL 03/24/23 03/24/23 Range/Units 06:25 11:20 WBC (3.8-10.6) k/uL RBC (4.30-5.90) m/uL Hgb (13.0-17.5) gm/dL Hct (39.0-53.0) % RDW (11.5-15.5) % Plt Count (150-450) k/uL ABG pO2 (83-108) mmHg ABG HCO3 (21-25) mmol/L ABG Total CO2 (19-24) mmol/L Sodium (137-145) mmol/L Chloride (98-107) mmol/L BUN (9-20) mg/dL Creatinine (0.66-1.25) mg/dL Glucose (74-99) mg/dL POC Glucose (mg/dL) 241 H 126 H (70-110) mg/dL Calcium (8.4-10.2) mg/dL
--- NOTE | 2023-03-24 14:22 | P.PN ---
Subjective Progress Note Date: 03/24/23 77 years old male with past medical history of Diabetes Mellitus, Hyperlipidemia, Hypertension, Osteoarthritis, cervical spine decompression and fusion surgery. PCP is Dr. Blount patient was sent from our with for shortness of breathwith hypoxia and saturating 81. 82% on 4 L oxygen via nasal cannula. Right upper extremity PICC line patient last time he was discharged on daptomycin every 48 hours 14 da ys.patient finished treatment and his lower extremity cellulitis is improving patient currently on BiPAP, with oxygen saturation 97%. Afebrile. Labs showed leukocytosis of 14,000, hemoglobin 7.5 creatinine is elevated at 2.8 which is at baseline of 2.2-3.0 Troponin is elevated at 0.15, 0.13.proBNP 4460. TSH is low at 0.09 Urine analysis is not suspicious for infection. chest x-ray: confluent bilateral Multifocal airspace opacities patient is a started on ceftriaxone, Zithromax IV Lasix 03/13/2023 Patient is seen and evaluated in room at bedside; remains on BiPAP; patient went into respiratory distress during the night; stat ABGs were completed which revealed a pO2 of 103 and pCO2 of 41 - Patient is currently on BiPAP with FiO2 of 100% -- Vital signs are reviewed and remained stable Blood work reveals a WBC of 16.8, hemoglobin of 7, hematocrit 22.5 and platelet count of 182, sodium 154 cultures and 2.1, BUN/creatinine of 104/3.15 and blood glucose of 240 --Chest x-ray reveals diffuse bilateral infiltrates possibly diffuse pneumonia versus interstitial edema or acute respiratory distress syndrome - Patient remains on IV heparin for possible PE; V/Q scan cannot be completed due to unstable respiratory status -- Patient has been placed on IV fluids in form of D5 water for hypernatremia; we will monitor sodium levels closely Prognosis remains guarded 03/14/2023 Patient is seen and evaluated in room at bedside; transferred to ICU; patient had been agitated and restless and noncompliant with BiPAP resulting in worsening respiratory status -- Patient has been placed on Precedex and remains on BiPAP with settings of 16/8 and 80% Vital signs are reviewed with temperature of 98.4, pulse 59, respirations 17 and blood pressure of 164/68 White count is 22.4, hemoglobin 7.4, hematocrit 24.5, with a normal platelet count. Sodium 157, potassium 2.8, chlorides 119, CO2 26, BUN 109, and creatinine 2.73. Chest x-ray continues to show bilateral airspace disease, which may be on the basis of fluid, pneumonia, or acute respiratory distress syndrome. The patient's currently on IV heparin empirically. The patient's also receiving Zosyn. Heparin can be discontinued once PE is ruled out 03/15. Patient seen and examined. Labs done this morning showed WBC 18.9, hemoglobin 7.2, platelet count 179, sodium 156, potassium 2.9, BUN 97, creatinine 2.86. Patient was intubated overnight, currently on mechanical ventilation. Currently on propofol. 03/16. Patient seen and examined. Patient continues to be intubated. Hemoglobin this morning is 6.8. Patient getting 1 unit of packed red blood cell. Blood sugars were elevated, currently on insulin drip 03/17/2023 Patient is currently intubated and on mechanical ventilator, assist control. Patient is also sedated with propofol. Chest x-ray today showed similar bilateral airspace disease with lower lung predominance. Patient had bronchoscopy done on 03/15/2023 showed no growth so far. Patient is being continued on Zosyn. Patient is on IV hydration. Patient is also on insulin drip for better blood sugar control. Laboratory data showed sodium 143 potassium 4.2 chloride 109 bicarb is 23 BUN 111 and creatinine 3.26 blood sugar 120, WBC 17.7 hemoglobin 7.5 and platelets 138. 03/18/2023 Patient remained on mechanical ventilator. Assist-control and PEEP increased to 12 with FiO2 50%. Chest x-ray showed stable lower lobe pulmonary infiltrates. ABG showed pH of 7.34, PCO2 41 and PO2 112. BAL cultures have been negative. Patient is being current Zosyn. Laboratory data showed WBC 16.8 hemoglobin 7.5 and platelets 112 BUN 119 and creatinine 3.5 bicarb is 20 blood sugar is 129. Calcium 7.2. IV fluids down to KVO. Pulmonary, nephrology is on board. Dr Cruz Assumed care 03/19/23: Patient seen and evaluated and bedside patient remains intubated, sedated. On mechanical ventilator. Blood work reviewed, noted to have anemia, 1 unit of packed RBC given 03/20/2023: Patient seen and evaluated, and remains intubated, on mechanical ventilator, on propofol. Blood work reviewed hemoglobin remained stable, p otassium of 25.5, nephrology following plan for hemodialysis today axis already in place 03/21/23: Patient remains intubated, sedated with propofol. Hemodialysis access in groin. Second session of hemodialysis today plan to remove 2 L, first session of hemodialysis was 03/20 and 2 L were removed. Patient followed by nephrology, critical care, cardiology. Continue IV antibiotic with Zosyn. Continue to monitor H&H 03/22/23: Patient seen and evaluated bedside, patient intubated, sedated with propofol. Patient on IV Cardizem for paroxysmal tachycardia. Underwent hemodialysis third session today. Output from oral gastric tube is decreased 03/23/23: Patient seen and evaluated bedside, patient continued to remain intubated and sedated with propofol. Order to have paroxysmal tachycardia. Se rum chemistry pending 03/24. Patient seen and examined. Continues to be intubated. Currently maritza eduled for dialysis today REVIEW OF SYSTEMS: Cannot be obtained as patient is intubated PHYSICAL EXAMINATION: GENERAL: The patient is intubated Well developed, well nourished. HEENT: Pupils are round and equally reacting to light. EOMI. No scleral icterus. No conjunctival pallor. Normocephalic, atraumatic. No pharyngeal erythema. No thyromegaly. CARDIOVASCULAR: S1 and S2 present. No murmurs, rubs, or gallops. PULMONARY: Coarse breath sounds bilaterally, crackles audible ABDOMEN: Soft, nontender, nondistended, normoactive bowel sounds. No palpable organomegaly. MUSCULOSKELETAL: No joint swelling or deformity. EXTREMITIES: 2+ pitting edema lower extremities bilaterally NEUROLOGICAL: Intubated SKIN: No rashes. 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 Managed by ICU team * In regards to acute anemia patient has OG tube in place with dark brown residue. Continue patient on Protonix, patient scheduled for EGD and colonoscopy on 03/25 * In regards to elevated troponin seen by cardiology, continue medical managem ent antiplatelet/anticoagulation on hold due to anemia * In regards to history of atrial fibrillation with rapid monitor response, continue Coreg. * In regards to multifocal pneumonia continue Zosyn * In regards to worsening renal failure, continued dialysis per nephrology Labs and medication were reviewed.. Continue same treatment. Continue with symptomatic treatment. Resume home medication. Monitor labs and vitals. DVT and GI prophylaxis. Further recommendations as per clinical course of the patient Dictation was produced using [employer] dictation software. please excuse any grammatical, word or spelling errors. Objective - Vital Signs Vital signs: Vital Signs Temp 99.7 F H 03/24/23 08:00 Pulse 122 H 03/24/23 10:52 Resp 18 03/24/23 10:00 BP 143/87 03/24/23 08:00 Pulse Ox 91 L 03/24/23 10:00 FiO2 55 03/24/23 10:43 Intake & Output 03/23/23 03/24/23 03/24/23 18:59 06:59 18:59 Intake Total 826.248 875.423 303.19 Output Total 980 1350 295 Balance -153.752 -474.577 8.19 Weight 111.7 kg Intake: IV 256 156 49 NS TKO 120 120 40 Piperacillin-Tazobactam 3 100 .375 gm In Sodium Chloride 0.9% 100 ml @ 25 mls/hr IVPB Q8HR [facility] Rx# :[id number] Pressure bag 36 36 9 Intake, IV Titration 276.248 425.423 186.19 Amount Piperacillin-Tazobactam 3 100 .375 gm In Sodium Chloride 0.9% 100 ml @ 25 mls/hr IVPB Q12HR [facility] Rx #:[id number] propofoL 1,000 mg In 276.248 425.423 86.19 Empty Bag 1 bag @ 15 MCG/ KG/MIN 9.945 mls/hr IV . Q10H4M [facility] Rx#:[id number] Tube Feeding 204 204 68 Other 90 90 Output: Urine 980 1350 295 Other: Voiding Method Indwelling Catheter Indwelling Catheter Indwelling Catheter ABP, PAP, CO, CI - Last Documented Arterial Blood Pressure 159/65 - Labs CBC & Chem 7: 03/24/23 04:26 03/24/23 04:26 Labs: Abnormal Lab Results - Last 24 Hours (Table) 03/23/23 03/23/23 03/23/23 Range/Units 11:34 18:00 23:33 WBC (3.8-10.6) k/uL RBC (4.30-5.90) m/uL Hgb (13.0-17.5) gm/dL Hct (39.0-53.0) % RDW (11.5-15.5) % Plt Count (150-450) k/uL ABG pO2 (83-108) mmHg ABG HCO3 (21-25) mmol/L ABG Total CO2 (19-24) mmol/L Sodium (137-145) mmol/L Chloride (98-107) mmol/L BUN (9-20) mg/dL Creatinine (0.66-1.25) mg/dL Glucose (74-99) mg/dL POC Glucose (mg/dL) 245 H 256 H 254 H (70-110) mg/dL Calcium (8.4-10.2) mg/dL 03/24/23 03/24/23 03/24/23 Range/Units 04:26 04:26 05:54 WBC 15.4 H (3.8-10.6) k/uL RBC 2.53 L (4.30-5.90) m/uL Hgb 7.5 L (13.0-17.5) gm/dL Hct 22.3 L (39.0-53.0) % RDW 17.2 H (11.5-15.5) % Plt Count 111 L (150-450) k/uL ABG pO2 74 L (83-108) mmHg ABG HCO3 27 H (21-25) mmol/L ABG Total CO2 28 H (19-24) mmol/L Sodium 131 L (137-145) mmol/L Chloride 94 L (98-107) mmol/L BUN 72 H (9-20) mg/dL Creatinine 2.41 H (0.66-1.25) mg/dL Glucose 215 H (74-99) mg/dL POC Glucose (mg/dL) (70-110) mg/dL Calcium 7.0 L (8.4-10.2) mg/dL 03/24/23 03/24/23 Range/Units 06:13 06:25 WBC (3.8-10.6) k/uL RBC (4.30-5.90) m/uL Hgb (13.0-17.5) gm/dL Hct (39.0-53.0) % RDW (11.5-15.5) % Plt Count (150-450) k/uL ABG pO2 (83-108) mmHg ABG HCO3 (21-25) mmol/L ABG Total CO2 (19-24) mmol/L Sodium (137-145) mmol/L Chloride (98-107) mmol/L BUN (9-20) mg/dL Creatinine (0.66-1.25) mg/dL Glucose (74-99) mg/dL POC Glucose (mg/dL) 253 H 241 H (70-110) mg/dL Calcium (8.4-10.2) mg/dL
[2023-03-24] MEDS: LORazepam 2 MG/ML INJ IV PRN (15:32)
--- NOTE | 2023-03-24 16:12 | P.PN ---
Subjective Progress Note Date: 03/24/23 CHIEF COMPLAINT: Respiratory failure, pneumonia HISTORY OF PRESENT ILLNESS: Patient remains intubated and on mechanical ventilation in the ICU. currently in the ICU with hypoxic respiratory failure, pneumonia , pulmonary edema and ARDS. Patient has had no further blood noted in OG tube. No bloody bowel movements over the last couple days. Hgb 7.5. Nursing staff did report that he only is considering possible comfort care. At this time they do not want to proceed with EGD or colonoscopy. PHYSICAL EXAM: VITAL SIGNS: Reviewed. GENERAL: no acute distress. ABDOMEN: Soft. Nondistended. Nontender. NEUROLOGIC: Intubated on mechanical ventilation ASSESSMENT: 1. Acute GI bleed likely upper GI bleed PLAN: -EGD and colonoscopy canceled for tomorrow. Patient's family does not want to proceed with endoscopies. They're considering comfort care. -Continue IV Protonix -Continue to monitor for any signs or symptoms of bleeding -Continue to monitor hemoglobin Physician Label Rewinder note has been reviewed by physician. Signing provider agrees with the documented findings, assessment, and plan of care. Objective - Vital Signs Vital signs: Vital Signs Temp 98.7 F 03/24/23 12:00 Pulse 114 H 03/24/23 13:00 Resp 17 03/24/23 13:00 BP 146/60 03/24/23 11:41 Pulse Ox 91 L 03/24/23 13:00 FiO2 55 03/24/23 12:00 Intake & Output 03/23/23 03/24/23 03/24/23 18:59 06:59 18:59 Intake Total 826.248 875.423 823.19 Output Total 980 1350 2785 Balance -153.752 -474.577 -1961.81 Weight 111.7 kg Intake: IV 256 156 88 NS TKO 120 120 70 Piperacillin-Tazobactam 3 100 .375 gm In Sodium Chloride 0.9% 100 ml @ 25 mls/hr IVPB Q8HR [facility] Rx# :[id number] Pressure bag 36 36 18 Intake, IV Titration 276.248 425.423 286.19 Amount Piperacillin-Tazobactam 3 100 .375 gm In Sodium Chloride 0.9% 100 ml @ 25 mls/hr IVPB Q12HR [facility] Rx #:[id number] propofoL 1,000 mg In 276.248 425.423 186.19 Empty Bag 1 bag @ 15 MCG/ KG/MIN 9.945 mls/hr IV . Q10H4M [facility] Rx#:[id number] Oral 30 Tube Feeding 204 204 119 Hemodialysis 300 Other 90 90 Output: Urine 980 1350 485 Hemodialysis 2300 Other: Voiding Method Indwelling Catheter Indwelling Catheter Indwelling Catheter ABP, PAP, CO, CI - Last Documented Arterial Blood Pressure 168/67 - Labs CBC & Chem 7: 03/24/23 04:26 03/24/23 04:26 Labs: Abnormal Lab Results - Last 24 Hours (Table) 03/23/23 03/23/23 03/24/23 Range/Units 18:00 23:33 04:26 WBC 15.4 H (3.8-10.6) k/uL RBC 2.53 L (4.30-5.90) m/uL Hgb 7.5 L (13.0-17.5) gm/dL Hct 22.3 L (39.0-53.0) % RDW 17.2 H (11.5-15.5) % Plt Count 111 L (150-450) k/uL ABG pO2 (83-108) mmHg ABG HCO3 (21-25) mmol/L ABG Total CO2 (19-24) mmol/L Sodium (137-145) mmol/L Chloride (98-107) mmol/L BUN (9-20) mg/dL Creatinine (0.66-1.25) mg/dL Glucose (74-99) mg/dL POC Glucose (mg/dL) 256 H 254 H (70-110) mg/dL Calcium (8.4-10.2) mg/dL 03/24/23 03/24/23 03/24/23 Range/Units 04:26 05:54 06:13 WBC (3.8-10.6) k/uL RBC (4.30-5.90) m/uL Hgb (13.0-17.5) gm/dL Hct (39.0-53.0) % RDW (11.5-15.5) % Plt Count (150-450) k/uL ABG pO2 74 L (83-108) mmHg ABG HCO3 27 H (21-25) mmol/L ABG Total CO2 28 H (19-24) mmol/L Sodium 131 L (137-145) mmol/L Chloride 94 L (98-107) mmol/L BUN 72 H (9-20) mg/dL Creatinine 2.41 H (0.66-1.25) mg/dL Glucose 215 H (74-99) mg/dL POC Glucose (mg/dL) 253 H (70-110) mg/dL Calcium 7.0 L (8.4-10.2) mg/dL 03/24/23 03/24/23 Range/Units 06:25 11:20 WBC (3.8-10.6) k/uL RBC (4.30-5.90) m/uL Hgb (13.0-17.5) gm/dL Hct (39.0-53.0) % RDW (11.5-15.5) % Plt Count (150-450) k/uL ABG pO2 (83-108) mmHg ABG HCO3 (21-25) mmol/L ABG Total CO2 (19-24) mmol/L Sodium (137-145) mmol/L Chloride (98-107) mmol/L BUN (9-20) mg/dL Creatinine (0.66-1.25) mg/dL Glucose (74-99) mg/dL POC Glucose (mg/dL) 241 H 126 H (70-110) mg/dL Calcium (8.4-10.2) mg/dL
[2023-03-24] MEDS ORDERED: DILTIAZEM ORAL 30 MG TAB PO ONE (17:15)
--- NOTE | 2023-03-24 17:15 | P.PN ---
Subjective Progress Note Date: 03/24/23 Principal diagnosis: Sepsis/pneumonia Patient is a 77-year-old male with a past medical his significant for diabetes mellitus hypertension hyperlipidemia prostate disorder presenting to the hospital on 03/07/2023 for evaluation of increasing shortness of breath weakness and mental status changes, subsequently did have worsening of his respiratory status requiring transfer the ICU ended up getting intubated, the patient is status post bronchoscopy completed on 03/15/2023, patient did got dialysis catheter on 03/20/2023 through and got dialyzed On today's evaluation that is 03/24, the patient remains to be afebrile, the patient is remains to be intubated on the vent and FiO2 is stable at 55% , patient is hemodynamically stable not requiring any pressor support, no significant purulent secretions through the ET or any other changes reported by the nursing staff Patient white count is slightly up to 15.4, creatinine is 2.41 Objective - Vital Signs Vital signs: Vital Signs Temp 97.9 F 03/24/23 04:00 Pulse 122 H 03/24/23 08:16 Resp 14 03/24/23 07:00 BP 143/87 03/24/23 07:00 Pulse Ox 91 L 03/24/23 07:00 FiO2 55 03/24/23 07:52 Intake & Output 03/23/23 03/24/23 03/24/23 18:59 06:59 18:59 Intake Total 826.248 875.423 116.19 Output Total 980 1350 65 Balance -153.752 -474.577 51.19 Weight 111.7 kg Intake: IV 256 156 13 NS TKO 120 120 10 Piperacillin-Tazobactam 3 100 .375 gm In Sodium Chloride 0.9% 100 ml @ 25 mls/hr IVPB Q8HR [facility] Rx# :[id number] Pressure bag 36 36 3 Intake, IV Titration 276.248 425.423 86.19 Amount propofoL 1,000 mg In 276.248 425.423 86.19 Empty Bag 1 bag @ 15 MCG/ KG/MIN 9.945 mls/hr IV . Q10H4M [facility] Rx#:[id number] Tube Feeding 204 204 17 Other 90 90 Output: Urine 980 1350 65 Other: Voiding Method Indwelling Catheter Indwelling Catheter ABP, PAP, CO, CI - Last Documented Arterial Blood Pressure 155/55 - Exam GENERAL DESCRIPTION: An elderly male intubated on the vent in no distress RESPIRATORY SYSTEM: Unlabored breathing , decreased breath sounds at bases HEART: S1 S2 regular rate and rhythm , ABDOMEN: Soft , no tenderness EXTREMITIES: No edema feet - Labs CBC & Chem 7: 03/24/23 04:26 03/24/23 04:26 Labs: Abnormal Lab Results - Last 24 Hours (Table) 03/23/23 03/23/23 03/23/23 Range/Units 11:34 18:00 23:33 WBC (3.8-10.6) k/uL RBC (4.30-5.90) m/uL Hgb (13.0-17.5) gm/dL Hct (39.0-53.0) % RDW (11.5-15.5) % Plt Count (150-450) k/uL ABG pO2 (83-108) mmHg ABG HCO3 (21-25) mmol/L ABG Total CO2 (19-24) mmol/L Sodium (137-145) mmol/L Chloride (98-107) mmol/L BUN (9-20) mg/dL Creatinine (0.66-1.25) mg/dL Glucose (74-99) mg/dL POC Glucose (mg/dL) 245 H 256 H 254 H (70-110) mg/dL Calcium (8.4-10.2) mg/dL 03/24/23 03/24/23 03/24/23 Range/Units 04:26 04:26 05:54 WBC 15.4 H (3.8-10.6) k/uL RBC 2.53 L (4.30-5.90) m/uL Hgb 7.5 L (13.0-17.5) gm/dL Hct 22.3 L (39.0-53.0) % RDW 17.2 H (11.5-15.5) % Plt Count 111 L (150-450) k/uL ABG pO2 74 L (83-108) mmHg ABG HCO3 27 H (21-25) mmol/L ABG Total CO2 28 H (19-24) mmol/L Sodium 131 L (137-145) mmol/L Chloride 94 L (98-107) mmol/L BUN 72 H (9-20) mg/dL Creatinine 2.41 H (0.66-1.25) mg/dL Glucose 215 H (74-99) mg/dL POC Glucose (mg/dL) (70-110) mg/dL Calcium 7.0 L (8.4-10.2) mg/dL 03/24/23 03/24/23 Range/Units 06:13 06:25 WBC (3.8-10.6) k/uL RBC (4.30-5.90) m/uL Hgb (13.0-17.5) gm/dL Hct (39.0-53.0) % RDW (11.5-15.5) % Plt Count (150-450) k/uL ABG pO2 (83-108) mmHg ABG HCO3 (21-25) mmol/L ABG Total CO2 (19-24) mmol/L Sodium (137-145) mmol/L Chloride (98-107) mmol/L BUN (9-20) mg/dL Creatinine (0.66-1.25) mg/dL Glucose (74-99) mg/dL POC Glucose (mg/dL) 253 H 241 H (70-110) mg/dL Calcium (8.4-10.2) mg/dL Assessment and Plan (1) Pneumonia Current Visit: No Status: Acute Code(s): J18.9 - PNEUMONIA, UNSPECIFIED ORGANISM SNOMED Code(s): 712834697 Plan: 1patient with acute respiratory failure which is multifactorial in this patient with initial presentation of sepsis possible pneumonia and also a component of fluid overload in this patient with evidence of renal failure 2-patient remains to be febrile and the patient white count is slightly up today and will monitor closely 3-patient to continue with Zosyn with overall poor prognosis and possible plan for hospice which may be appropriate for him once switched to hospice antibiotic can be safely discontinued Dictation was produced using [employer] dictation software. please excuse any grammatical, word or spelling errors. Time with Patient: Less than 30
[2023-03-24] MEDS: CLEVIDIPINE BUTYRATE 25 MG in EMPTY BAG 1 BAG IV SCH (17:18)
[2023-03-24] MEDS: DILTIAZEM 125 MG in SODIUM CHLORIDE 0.9% 100 ML IV SCH (18:15)
[2023-03-24 18:24] LABS: Glucose,Whole Blood 207 mg/dL (70-110)
[2023-03-24] MEDS: INSULIN DETEMIR (LEVEMIR) 100 UNIT/ML SYR SQ SCH (20:51)
[2023-03-24 23:37] LABS: Glucose,Whole Blood 189 mg/dL (70-110)
[2023-03-25] MEDS ORDERED: DILTIAZEM ORAL 30 MG TAB PO SCH
[2023-03-25] MEDS: DILTIAZEM 125 MG in SODIUM CHLORIDE 0.9% 100 ML IV SCH (01:24)
[2023-03-25] MEDS: IPRATROPIUM-ALBUTEROL 3 ML NEB INHALATION SCH ×6 (01:45→20:23)
[2023-03-25] MEDS: HYDROmorphone 1 MG/ML 1 ML SYRINGE IVP PRN ×5 (02:27→22:25)
[2023-03-25 05:30] LABS: Glucose,Whole Blood 237 mg/dL (70-110)
[2023-03-25 05:41] LABS: Anisocytosis Slight; Basophils % (A) 0 %; Eosinophils # (A) 0.1 k/uL (0-0.7); Eosinophils % (A) 0 %; HCT 22.5 % (39.0-53.0); HGB 7.4 gm/dL (13.0-17.5); Hypochromasia Slight; Lymphocytes # (A) 0.5 k/uL (1.0-4.8); Lymphocytes % (A) 3 %; MCH 29.8 pg (25.0-35.0); MCHC 33.1 g/dL (31.0-37.0); MCV 90.2 fL (80.0-100.0); Mean Platelet Volume 14.1; Monocytes # (A) 0.3 k/uL (0-1.0); Monocytes % (A) 1 %; Neutrophils # (A) 17.9 k/uL (1.3-7.7); Neutrophils % (A) 95 %; Platelet Count 109 k/uL (150-450); WBC 18.9 k/uL (3.8-10.6)
[2023-03-25 06:21] LABS: ABG Base Excess 0.5 mmol/L; ABG HCO3 27 mmol/L (21-25); ABG Oxygen Saturation 98.7 % (94-97); ABG PCO2 51 mmHg (35-45); ABG PH 7.33 (7.35-7.45); ABG PO2 135 mmHg (83-108); ABG TCO2 28 mmol/L (19-24); Allen Test Performed? Yes
[2023-03-25 06:26] LABS: African American GFR (CKD) 35 (>60 ml/min/1.73 sqM); Anion Gap 13 mmol/L; Blood Urea Nitrogen 56 mg/dL (9-20); Calcium 7.3 mg/dL (8.4-10.2); Carbon Dioxide 24 mmol/L (22-30); Chloride 94 mmol/L (98-107); Glucose 211 mg/dL (74-99); Non-African American GFR(CKD) 30 (>60 ml/min/1.73 sqM); Potassium 3.9 mmol/L (3.5-5.1); Sodium 131 mmol/L (137-145)
--- NOTE | 2023-03-25 06:31 | P.PN ---
Subjective Progress Note Date: 03/25/23 Paroxysmal atrial fibrillation This is a 77-year-old gentleman with coronary artery disease and congestive heart failure as well as chronic kidney disease and multiple comorbid conditions was admitted to the hospital with change in mental status and he was diagnosed with pneumonia. We consulted to see the patient because of bradycardia and also because of atrial fibrillation. On presentation to the hospital he was in respiratory distress and was intubated 03/15/2023 The patient was seen and evaluated this morning. He is currently intubated and he is on mechanical ventilation. Hemodynamically he is a stable as a matter of fact he is hypertensive. He is bradycardic with heart rate in the 40s and he is in sinus bradycardia. At the same time work from this morning showed hypokalemia and he continues to be in renal failure with creatinine of 2.8. He is on heparin IV for oral anticoagulation with a chest x-ray showed bilateral infiltrate definitely concerning for pneumonia. March 162022 The patient was seen and evaluated this morning. He continues to be intubated on mechanical ventilation. Hemodynamically he is a stable beside bradycardia with heart rate in the 50s. His hemoglobin drop to below 7 and currently is in process of receiving blood. For that reason heparin was stopped. He is on Lasix per nephrology service. Creatinine is 3 this morning. Examination is remarkable for regular rhythm with diminished breathing sounds bilaterally and bilateral lower extremity 03/17/2023 The patient was seen and evaluated this morning. He continues to be intubated and on mechanical ventilation. Hemodynamically he is stable and currently he is not on any vasopressors. As a matter of fact the bradycardia has improved. He is bradycardic only intermittently. He is not on any AV ayan blockers at this point. Hemoglobin has been stable at 7.1 this morning. He receives 1 unit of packed RBC yesterday. He is not bleeding. He is not on any anticoagulation at this point which I would agree on to rule out any gastrointestinal bleeding etiology. The kidney function is worse today. He was on Lasix and that has a systolic. Examination is remarkable for diminished breathing sounds bilaterally and mild bilateral lower extremity edema March 182022 The patient was seen and evaluated this morning. He continues to be sedated and intubated on mechanical ventilation. Hemodynamically he continues to be stable and not on any vasopressors. He has been maintaining normal sinus mechanism was sinus bradycardia. Currently he is not on any beta zurdo agents. Hemoglobin this morning is 7.5. Currently he is not on any oral anticoagulation. No issues with the bleeding. We would continue holding any anticoagulation at this point the hemoglobin is more stable and to rule out any gastrointestinal bleeding related issues. 03/19/2023 The patient was seen and evaluated this morning. He continues to be intubated and he is currently on mechanical ventilation. Nothing changed from that standpoint overview. Unfortunately the hemoglobin dropped again and today is 6.9. He is in process of receiving some blood. For that reason we should continue holding on any oral anticoagulation at this point. Kidney function remains elevated. Nephrology service is on the case. He is maintaining normal sinus mechanism was sinus bradycardia. The examination is remarkable for bilateral lower extremities edema and bilateral upper extremities edema March [id number] The patient was seen and evaluated this morning. He is on dialysis at this point. Hemodynamically he seems to be stable. The hemoglobin is a stable as well. He has been maintaining normal sinus mechanism. Anticoagulation is on hold at this point. 03/22 Patient seen and examined. He received dialysis today with approximately 2 L output. Still making some urine with IV Lasix 60 mg twice a day. Blood pressure on the higher end and somewhat labile however more consistently in the 160s 180s. He has been in and out of atrial fibrillation and initially was restarted on Cardizem drip however did have some bradycardia and some pauses. On review of this appears mostly sinus rhythm with PVCs and occasional blocked PACs. No obvious second-degree type II block. Therefore discussed restarting AV ayan blocking agents. We will switch him to carvedilol. He is started on tube feeds today. Able to be weaned somewhat on the oxygen down from 60% to 55%. Still has significant lower extremity and upper extremity edema. He has not been on anticoagulation secondary to anemia with patient receiving 2 blood transfusions and scheduled for a scope in approximately 2 days. No hematochezia or melena. 03/23 Patient seen and examined. Patient remains on ventilator and intubated and sedated. Creatinine mildly improving to 2.1, hemoglobin 7.5. Remains in A. fib with heart rates 120s to 130s. Carvedilol was initiated yesterday. There was some concern regarding heart degree AV block however no significant block and appeared to be PACs/PVCs yesterday. The examination is remarkable for bilateral lower extremities edema and diminished breathing sounds bilaterally and altered mental status 03/24 Blood pressure 160/74, heart rate 110 220 beats a minute continues to be in atrial flutter with rapid ventricular response. Hemoglobin 7.5, creatinine 2.1 hemoglobin is stable at 7.5. Carvedilol was initiated on 03/22. We have been increasing his dose over last 2 days which is tolerating well without concerns of any AV blocks. 04/02/2023 Blood pressure 168/61, heart rate 90 beats a minute, Rhythm is atrial fibrillation. Overnight patient went into atrial fibrillation with rapid ventricular response with his current dose of Cardizem 30 mg 3 times a day and carvedilol 25 mg twice a day. Overnight he was started on Cardizem drip running at 10 mg per hour. This morning his heart rate is better controlled. He is having 50-70 mL of urine output every hour with Lasix and metolazone. He still appears volume overloaded. Assessment Change in mental status Pneumonia Paroxysmal atrial fibrillation. Currently the patient is in sinus rhythm Sinus bradycardia Severe electrolytes abnormalities Acute on chronic renal failure Multiple comorbid conditions Anemia Acute kidney injury Plan No evidence of high-grade AV block. Discontinue Cardizem drip. Start Cardizem 60 mg 4 times a day. Continue Coreg 25 mg twice a day Continue Lasix IV 80 mg 3 times a day, metolazone 2.5 mg Continue IV antibiotics. Currently he is on Zosyn Anemia, hemoglobin 7.4. No signs of active bleeding. Endometrial ablation is held due to low hemoglobin. Patient is on darbepoetin Due to multiorgan involvement with poor recovery, I feel patient's prognosis is guarded. Objective - Vital Signs Vital signs: Vital Signs Temp 98.4 F 03/25/23 04:00 Pulse 69 03/25/23 05:15 Resp 32 H 03/25/23 05:00 BP 146/60 03/24/23 11:41 Pulse Ox 97 03/25/23 05:00 FiO2 70 03/25/23 06:24 Intake & Output 03/24/23 03/24/23 03/25/23 06:59 18:59 06:59 Intake Total 532.850 0038.207 725.550 Output Total 1350 3175 455 Balance -474.577 -1961.793 270.550 Weight 111.7 kg 108.6 kg Intake: IV 156 166 130 NS TKO 120 130 100 Pressure bag 36 36 30 Intake, IV Titration 425.423 466.207 365.550 Amount Diltiazem 125 mg In 2.667 83.667 Sodium Chloride 0.9% 100 ml @ Per Protocol IV .Q0M FRANKO Rx#:[id number] Piperacillin-Tazobactam 3 100 .375 gm In Sodium Chloride 0.9% 100 ml @ 25 mls/hr IVPB Q12HR [facility]KO Rx #:[id number] propofoL 1,000 mg In 425.423 363.54 281.883 Empty Bag 1 bag @ 15 MCG/ KG/MIN 9.945 mls/hr IV . Q10H4M FRANKO Rx#:[id number] Oral 30 Tube Feeding 204 221 170 Hemodialysis 300 Other 90 30 60 Output: Urine 1350 875 455 Hemodialysis 2300 Other: Voiding Method Indwelling Catheter Indwelling Catheter Indwelling Catheter ABP, PAP, CO, CI - Last Documented Arterial Blood Pressure 147/54 - Labs CBC & Chem 7: 03/25/23 05:15 03/25/23 05:15 Labs: Abnormal Lab Results - Last 24 Hours (Table) 03/24/23 03/24/23 03/24/23 Range/Units 11:20 18:22 23:33 WBC (3.8-10.6) k/uL RBC (4.30-5.90) m/uL Hgb (13.0-17.5) gm/dL Hct (39.0-53.0) % RDW (11.5-15.5) % Plt Count (150-450) k/uL Neutrophils # (1.3-7.7) k/uL Lymphocytes # (1.0-4.8) k/uL Sodium (137-145) mmol/L Chloride (98-107) mmol/L BUN (9-20) mg/dL Creatinine (0.66-1.25) mg/dL Glucose (74-99) mg/dL POC Glucose (mg/dL) 126 H 207 H 189 H (70-110) mg/dL Calcium (8.4-10.2) mg/dL 03/25/23 03/25/23 03/25/23 Range/Units 05:15 05:15 05:27 WBC 18.9 H (3.8-10.6) k/uL RBC 2.50 L (4.30-5.90) m/uL Hgb 7.4 L (13.0-17.5) gm/dL Hct 22.5 L (39.0-53.0) % RDW 17.0 H (11.5-15.5) % Plt Count 109 L (150-450) k/uL Neutrophils # 17.9 H (1.3-7.7) k/uL Lymphocytes # 0.5 L (1.0-4.8) k/uL Sodium 131 L (137-145) mmol/L Chloride 94 L (98-107) mmol/L BUN 56 H (9-20) mg/dL Creatinine 2.10 H (0.66-1.25) mg/dL Glucose 211 H (74-99) mg/dL POC Glucose (mg/dL) 237 H (70-110) mg/dL Calcium 7.3 L (8.4-10.2) mg/dL
[2023-03-25] MEDS: CALCIUM ACETATE 667 MG TAB PO SCH ×3 (06:42→18:03)
[2023-03-25] MEDS: carvediloL 12.5 MG TAB PO SCH ×2 (06:43→19:12)
[2023-03-25] MEDS: INSULIN ASPART (NovoLOG) 100 UNIT/ML VIAL SQ SCH ×3 (06:43→18:20)
[2023-03-25] MEDS: SODIUM CHLORIDE 0.9% 1,000 ML IV SCH (07:05)
[2023-03-25] MEDS ORDERED: POTASSIUM BICARBONATE/CIT AC 20 MEQ TABLET.EFF NG-TUBE SCH (08:00)
[2023-03-25] MEDS: FORMOTEROL FUMARATE 20 MCG/2 ML NEBU INHALATION SCH ×2 (08:15→20:23)
[2023-03-25] MEDS: BUDESONIDE 1 MG/2 ML NEBU INHALATION SCH ×2 (08:15→20:23)
--- NOTE | 2023-03-25 09:17 | XR ---
EXAMINATION TYPE: XR chest 1V portable DATE OF EXAM: 03/25/2023 Comparison: 03/24/2023 Clinical History: 77-year-old male mechanical ventilation Findings: ET and NG tubes are satisfactory. Hardware on an size. Mild hyperinflation. Patchy and confluent airs pace opacity right greater than left is highly similar. There may be slight improvement at the left b ase and slight worsening on the right. Left PICC tip not clearly seen extending beyond the midline. Impression: Patchy and confluent airspace disease right greater than left fairly similar. Possible slight worseni ng on the right and slight improvement on the left.
[2023-03-25] MEDS: CHLORHEXIDINE GLUCONATE 15 ML CUP MUCOUS MEM SCH ×2 (10:06→20:16)
[2023-03-25] MEDS: PANTOPRAZOLE 40 MG/10 ML VIAL IVP SCH ×2 (10:06→20:16)
[2023-03-25] MEDS: LEVOTHYROXINE IVP 100 MCG/5 ML VIAL IV SCH (10:07)
[2023-03-25] MEDS: POTASSIUM BICARBONATE/CIT AC 20 MEQ TABLET.EFF NG-TUBE SCH (10:07)
[2023-03-25] MEDS: metOLazone 2.5 MG TAB PO SCH (10:08)
[2023-03-25] MEDS: PIPERACILLIN-TAZOBACTAM 3.375 GM in SODIUM CHLORIDE 0.9% 100 ML IVPB SCH ×2 (10:08→20:18)
[2023-03-25] MEDS: FUROSEMIDE 10 MG/ML 10 ML VIAL IV SCH ×2 (10:17→18:02)
[2023-03-25] MEDS: hydrALAZINE HCL 50 MG TAB PO SCH ×2 (10:18→18:03)
[2023-03-25] MEDS: HYDROPHILIC CREAM 180 GM TUBE TOPICAL SCH (10:19)
[2023-03-25] MEDS: methylPREDNISolone SOD SUCCI 40 MG/ML 1 ML VIAL IV SCH ×2 (10:19→20:17)
[2023-03-25 11:39] VITALS: BMI 35.3
--- NOTE | 2023-03-25 11:57 | P.PN ---
Subjective Patient is seen for follow-up for acute kidney injury and top of chronic kidney disease. Started hemodialysis on 03/20/2023 for ATN and volume overload. Urine output at 60-150 mL per hour Back on Cardizem drip for her recurrent A. fib with RVR Patient remains on the vent Family considering possible comfort care measures Objective - Vital Signs Vital signs: Vital Signs Temp 98 F 03/25/23 08:00 Pulse 113 H 03/25/23 11:19 Resp 27 H 03/25/23 08:00 BP 146/60 03/24/23 11:41 Pulse Ox 95 03/25/23 08:00 FiO2 55 03/25/23 10:57 Intake & Output 03/24/23 03/25/23 03/25/23 18:59 06:59 18:59 Intake Total 1213.207 855.550 124.311 Output Total 3175 530 95 Balance -1961.793 325.550 29.311 Weight 108.6 kg 108.6 kg Intake: IV 166 143 26 NS TKO 130 110 20 Pressure bag 36 33 6 Intake, IV Titration 466.207 465.550 64.311 Amount Diltiazem 125 mg In 2.667 83.667 Sodium Chloride 0.9% 100 ml @ Per Protocol IV .Q0M [facility]ANKO Rx#:[id number] Piperacillin-Tazobactam 3 100 .375 gm In Sodium Chloride 0.9% 100 ml @ 25 mls/hr IVPB Q12HR [facility] Rx #:[id number] propofoL 1,000 mg In 363.54 381.883 64.311 Empty Bag 1 bag @ 15 MCG/ KG/MIN 9.945 mls/hr IV . Q10H4M [facility]ANKO Rx#:[id number] Oral 30 Tube Feeding 221 187 34 Hemodialysis 300 Other 30 60 Output: Urine 875 530 95 Hemodialysis 2300 Other: Voiding Method Indwelling Catheter Indwelling Catheter Indwelling Catheter ABP, PAP, CO, CI - Last Documented Arterial Blood Pressure 144/50 - Exam Patient is sedated and on the vent Examination of the heart shows tachycardia, A. fib Examination of the lungs bilateral breath sounds are heard Abdomen is soft Examination lower extremity shows edema 2+ bilaterally - Labs CBC & Chem 7: 03/25/23 05:15 03/25/23 05:15 Labs: Abnormal Lab Results - Last 24 Hours (Table) 03/24/23 03/24/23 03/25/23 Range/Units 18:22 23:33 05:15 WBC 18.9 H (3.8-10.6) k/uL RBC 2.50 L (4.30-5.90) m/uL Hgb 7.4 L (13.0-17.5) gm/dL Hct 22.5 L (39.0-53.0) % RDW 17.0 H (11.5-15.5) % Plt Count 109 L (150-450) k/uL Neutrophils # 17.9 H (1.3-7.7) k/uL Lymphocytes # 0.5 L (1.0-4.8) k/uL ABG pH (7.35-7.45) ABG pCO2 (35-45) mmHg ABG pO2 (83-108) mmHg ABG HCO3 (21-25) mmol/L ABG Total CO2 (19-24) mmol/L ABG O2 Saturation (94-97) % Sodium (137-145) mmol/L Chloride (98-107) mmol/L BUN (9-20) mg/dL Creatinine (0.66-1.25) mg/dL Glucose (74-99) mg/dL POC Glucose (mg/dL) 207 H 189 H (70-110) mg/dL Calcium (8.4-10.2) mg/dL 03/25/23 03/25/23 03/25/23 Range/Units 05:15 05:27 06:17 WBC (3.8-10.6) k/uL RBC (4.30-5.90) m/uL Hgb (13.0-17.5) gm/dL Hct (39.0-53.0) % RDW (11.5-15.5) % Plt Count (150-450) k/uL Neutrophils # (1.3-7.7) k/uL Lymphocytes # (1.0-4.8) k/uL ABG pH 7.33 L (7.35-7.45) ABG pCO2 51 H (35-45) mmHg ABG pO2 135 H (83-108) mmHg ABG HCO3 27 H (21-25) mmol/L ABG Total CO2 28 H (19-24) mmol/L ABG O2 Saturation 98.7 H (94-97) % Sodium 131 L (137-145) mmol/L Chloride 94 L (98-107) mmol/L BUN 56 H (9-20) mg/dL Creatinine 2.10 H (0.66-1.25) mg/dL Glucose 211 H (74-99) mg/dL POC Glucose (mg/dL) 237 H (70-110) mg/dL Calcium 7.3 L (8.4-10.2) mg/dL Assessment and Plan Assessment: 1. Acute kidney injury secondary to ATN secondary to hemodynamic instability and infection. Nonoliguric. No hydronephrosis noted on kidney ultrasound. Right kidney wasn't properly visualized. Left kidney is atrophic. Started on hemodialysis 03/20/2023. 2. Chronic kidney disease stage IV with baseline creatinine 2-2.5. 3. Hypernatremia from free water diuresis and lack of oral water intake. Status post D5W. Improved. 4. Hypokalemia from diuresis. No hyperkalemic. 5. Acute hypoxic respiratory failure secondary to pneumonia and volume overload. Status post bronchoscopy 03/15/2023. 6. Pneumonia on antibiotics. 7. Acute blood loss anemia. Status post blood transfusion this admission. Also received IV DDAVP. Heparin drip stopped. On Aranesp. Hemoglobin 7.4 this morning. 8. Hyperphosphatemia secondary to acute kidney injury. Plan: Continue with Andreas[facility] Hold hemodialysis today and we will plan for her treatment tomorrow if patient family decides to pursue aggressive medical treatment.
[2023-03-25] MEDS: DILTIAZEM ORAL 60 MG TAB PO SCH ×4 (12:17→21:48)
--- NOTE | 2023-03-25 12:37 | P.PN ---
Subjective Progress Note Date: 03/25/23 Principal diagnosis: Acute hypoxic respiratory failure, suspect healthcare acquired pneumonia and ARDS. On today's evaluation of 03/23/2023, I'm seeing the patient in the intensive care unit. At this point in time, the patient is intubated on a mechanical ventilator. Overnight, the patient became acutely hypoxic and more short of breath and he developed diffuse but the pulmonary infiltrates consistent with pneumonia and based on that the patient was intubated and placed on a mechanical ventilator. Note that this patient is 77 years of age. He has diabetes mellitus type 2, chronic kidney disease, hypothyroidism, COPD, hyperlipidemia and hypertension. He was also recently treated for cellulitis of lower extremity, discharged to [facility] for IV antibiotics through a PICC line in his right upper extremity and he received and completed the course of daptomycin. Discharged home to be readmitted for shortness of breath to our hospital on 03/08/2023. Note that the patient was being supported with BiPAP as various pressures. His proBNP level was elevated. His echocardiograms was recent showed a preserved LV function without any significant abnormalities. He was gi fransisco bronchodilators. He was given IV Solu-Medrol. He was given IV Lasix. Another dose of Lasix was given to him by the nurse practitioner at 2:30 AM this morning. He has a Meneses catheter in place. Urine output is in order of 100 mL an hour. At this point in time, the patient remains on mechanical ventilator. He was quite a successful the mechanical ventilator and he was having frequent episodes of desaturation. He is on propofol running at 55 mcg/kg/m. I switched this patient's blood pressure control mode of mechanical ventilation and currently is on a pressure control of 12, rate of 26, PEEP of 12 with a FiO2 of 60%. His current pulse ox is 95%. He is on IV heparin and this was I believe initiated due to concerns of pulmonary embolism, on an empiric basis. The echoes at 18.9, hemoglobin is at 7.2, platelet count of 179, most recent blood gas showed a pH of 7.38 with a pCO2 of 43 and pO2 of 140. BUN is at 97 with a creatinine of 2.8, sodium level is at 156 and a potassium level is at 2.9. IV fluids are at KVO, 0.9. On 03/20/2023, I'm seeing the patient for a follow-up. Unfortunately, not a whole lot of progress since yesterday. He was started on diuretics yesterday and urine output remained insufficient and the patient remains in a positive fluid balance. At the same time, the patient continues to have dense consolidations of the lung bases bilaterally. The patient remains on a mechanical ventilator. The patient remains sedated on propofol which is running at 50 mcg/kg/m. He is on a pressure control mode of mechanical ventilation with a pressure control of 12, rate of 26, FiO2 of 60% with a PEEP of 12. Blood gas shows respiratory acidosis with a pH of 7.19 with a pCO2 of 52 and pO2 of 113. The patient's BUN is at 139, creatinine is higher compared to yesterday at 3.7. Sodium is at 140. The white cell count is currently at 17.7 which is improved compared to yesterday with a hemoglobin of 8.5 and a platelet count of 100 with is essentially stable. The patient remains on IV Zosyn. He is afebrile. The patient is currently nothing by mouth. He was having episodic drop in hemoglobin and he has received packed RBC transfusion and the last transfusion was yesterday. Hemoglobin currently stable. The output from the OG is 150 cc, coffee-ground/dark possibly indicating an upper GI bleed. He remains nothing by mouth. He remains on IV Protonix. No melanotic stools. Blood sugar control is adequate and the patient is currently on Levemir insulin. On 03/21/2023, the patient is essentially the same intubated on a mechanical ventilator. He was started hemodialysis yesterday. He received the first session of hemodialysis with 2 L of fluid removal and is going to have another session today. He has a right femoral triple-lumen catheter in place. He remains sedated on propofol which is currently running at 45 mcg/kg/m. His b lood pressure was noted to be elevated and the patient was started on Cleviprex strep which was subsequently discontinued. His calm and comfortable and symptoms of the mechanical ventilator. Is on a pressure control mode at a rate of 30, pressure of 16 cm of water and FiO2 of 60% with a PEEP of 12. Blood gas shows some improvement in his oxygenation. PH is at 7.25 with a pCO2 of 43 and pO2 125. Chest x-ray findings are essentially unchanged with dense consolidations bilaterally. Orotracheal tube is in a good location. He also has a orogastric tube in place and output from the stomach is quite minimal yet bloody and there is obvious coffee-ground material. No bright blood per rectum. No melanotic stools. His hemoglobin is dropped slightly is currently at 7.7. He is on no pressors for now. He remains nothing by mouth. Cardiac rhythm is sinus. Patient was reevaluated , remains intubated and mechanically ventilated, remains in the ICU, patient is on pressure control mode of mechanical ventilation, rate is set at 30 inspiratory time is 0.951, down to 0.80 FiO2 60% I cut it down to 55% PEEP remains high at 12 ABG showed a pO2 of 111 pCO2 43 pH of 7.33 patient remains on Cardizem for atrial fibrillation with RVR is also on propofol at 50 mcg/kg/m received hemodialysis on 03/20 and L were removed. Received 2 units of packed RBCs for hemoglobin of 7.2 continues to have some coffee-ground material and nasogastric tube, but we'll restart tube feeding. Chest x-ray continues to show bilateral diffuse interstitial infiltrates consistent with ARDS, underlying pneumonia or underlying pulmonary edema is not entirely ruled out, but I believe this is mostly noncardiogenic pulmonary edema is not improving much even with hemodialysis. WBC count of 15.5 hemoglobin 7.2 basic metabolic profile is relatively normal except for bicarb of 19 BUN of 85 creatinine 2.59 blood cultures sputum cultures and bronchial cultures are all negative. Reevaluated today on 03/23/2023, patient remains in the ICU, intubated and mechanically ventilated. Patient is on assist control rate of 30, pressure control mode 16, inspiratory time is 0.8 FiO2 55% PEEP of 12 ABG showed a pO2 of 75 pCO2 41 pH of 7.39 patient remains sedated, on propofol at 50 mcg/kg/m receiving Nepro at 17 mL per hour. Patient is on hemodialysis, last dialysis was yesterday and 2 L were removed. Remains on Zosyn, and I'm arranging for the patient to have a PICC line today. Patient was actually intubated initially on 03/15, and family may have to be approached sometime by the end of the week r egarding tracheostomy and PEG tube placement unless the patient makes a dramatic improvement and he could be weaned and extubated. I'm not seeing that happening in the near future. Chest x-ray continues to show evidence of bilateral interstitial edema/infiltrates, consistent with ARDS. Patient continues to have atrial fibrillation with RVR. And that is being addressed by cardiology. WBC count today is 12.3 hemoglobin is 7.5 electrolytes are normal BUN is 61 creatinine 2.12 ABG as noted earlier. Reevaluated today on 03/24/2023, patient remains in the ICU intubated and mechanically ventilated, sedated, patient is on assist control rate of 30 pressure-controlled 16 inspiratory time 0.8 FiO2 55% and PEEP of 12 ABG is not showing any change pO2 of 74 pCO2 43 pH of 7.41, not much different from the ABG yesterday. Patient did not have hemodialysis yesterday but he is having hemodialysis today, and the goal is to remove 2.5 L at least. Continues to have urine output of 50-75 mL per hour with Lasix 60 mg IV push twice a day remains on Zosyn remains on enteral feeding/Nepro is also on propofol at 50 mcg/kg/m. Hemodynamically not requiring any pressors. WBC count is 15.4 hemoglobin is 7.5 sodium 131 potassium 3.5 BUN is 72 creatinine 2.41 chest x-ray continues to show bilateral interstitial infiltrates/edema. Not much of a change in the last few days Reevaluated today on 03/25/2023, patient remains in the ICU, remains intubated and mechanically. He is on assist control rate of 30 pressure control mode of mechanical ventilation with a pressure control of 16 inspiratory time of 0.75 FiO2 is up-to-date to 70% but I was able to cut it down back to 55% and a increased the PEEP from 12 up to 14. Earlier ABG on 80% FiO2 showed a pO2 of 135 pCO2 51 pH of 7.33. Patient remains on Cardizem drip at 10 mg per hour and is also on propofol 60 mcg/kg/m he is receiving hemodialysis again today, and he received hemodialysis yesterday 2 L anymore. Remains on nutritional support/ Nepro at 17 mL per hour. Urine output is 40-70 mL per hour continues on Lasix 60 mg every 8 hours. Remains on enteral feeding as noted earlier. And he is not requiring any pressors at this point chest x-ray continues to show evidence of ARDS/bilateral interstitial infiltrates/edema not improving in spite of hemodialysis. Basic metabolic profile is relatively normal bicarb is normal BUN is 56 creatinine 2.10 Objective - Vital Signs Vital signs: Vital Signs Temp 98 F 03/25/23 08:00 Pulse 113 H 03/25/23 11:19 Resp 25 H 03/25/23 11:00 BP 146/60 03/24/23 11:41 Pulse Ox 89 L 03/25/23 11:00 FiO2 55 03/25/23 10:57 Intake & Output 03/24/23 03/25/23 03/25/23 18:59 06:59 18:59 Intake Total 1213.207 855.550 261.882 Output Total 3175 530 180 Balance -1961.793 325.550 81.882 Weight 108.6 kg 108.6 kg Intake: IV 166 143 52 NS TKO 130 110 40 Pressure bag 36 33 12 Intake, IV Titration 466.207 465.550 141.882 Amount Diltiazem 125 mg In 2.667 83.667 Sodium Chloride 0.9% 100 ml @ Per Protocol IV .Q0M [facility] Rx#:[id number] Piperacillin-Tazobactam 3 100 .375 gm In Sodium Chloride 0.9% 100 ml @ 25 mls/hr IVPB Q12HR [facility] Rx #:[id number] propofoL 1,000 mg In 363.54 381.883 141.882 Empty Bag 1 bag @ 15 MCG/ KG/MIN 9.945 mls/hr IV . Q10H4M [facility] Rx#:[id number] Oral 30 Tube Feeding 221 187 68 Hemodialysis 300 Other 30 60 Output: Urine 875 530 180 Hemodialysis 2300 Other: Voiding Method Indwelling Catheter Indwelling Catheter Indwelling Catheter ABP, PAP, CO, CI - Last Documented Arterial Blood Pressure 144/52 - Exam Physical Exam: Revealed 77-year-old male intubated and mechanically ventilated sedated on propofol in no distress Head: Atraumatic, normocephalic. Orogastric tube is intact, endotracheal tube is intact HEENT:[Neck is supple.] [No neck masses.] [No thyromegaly.] [No JVD.] Chest: [Minimal crackles at the bases no rhonchi and no wheezes Cardiac Exam: [Normal S1 and S2, no S3 gallop, no murmur.] Abdomen: [Soft, nontender, no megaly, no rebound, no guarding, normal bowel sounds.] Extremities: [No clubbing, 2+ bipedal edema diminished distal pulses Neurological Exam: Remains on propofol, on lower dose of propofol, patient becomes extremely agitated and restless and desaturates down to the 70s. Psychiatric: Could not be assessed fully sedated - Labs CBC & Chem 7: 03/25/23 05:15 03/25/23 05:15 Labs: Abnormal Lab Results - Last 24 Hours (Table) 03/24/23 03/24/23 03/25/23 Range/Units 18:22 23:33 05:15 WBC 18.9 H (3.8-10.6) k/uL RBC 2.50 L (4.30-5.90) m/uL Hgb 7.4 L (13.0-17.5) gm/dL Hct 22.5 L (39.0-53.0) % RDW 17.0 H (11.5-15.5) % Plt Count 109 L (150-450) k/uL Neutrophils # 17.9 H (1.3-7.7) k/uL Lymphocytes # 0.5 L (1.0-4.8) k/uL ABG pH (7.35-7.45) ABG pCO2 (35-45) mmHg ABG pO2 (83-108) mmHg ABG HCO3 (21-25) mmol/L ABG Total CO2 (19-24) mmol/L ABG O2 Saturation (94-97) % Sodium (137-145) mmol/L Chloride (98-107) mmol/L BUN (9-20) mg/dL Creatinine (0.66-1.25) mg/dL Glucose (74-99) mg/dL POC Glucose (mg/dL) 207 H 189 H (70-110) mg/dL Calcium (8.4-10.2) mg/dL 03/25/23 03/25/23 03/25/23 Range/Units 05:15 05:27 06:17 WBC (3.8-10.6) k/uL RBC (4.30-5.90) m/uL Hgb (13.0-17.5) gm/dL Hct (39.0-53.0) % RDW (11.5-15.5) % Plt Count (150-450) k/uL Neutrophils # (1.3-7.7) k/uL Lymphocytes # (1.0-4.8) k/uL ABG pH 7.33 L (7.35-7.45) ABG pCO2 51 H (35-45) mmHg ABG pO2 135 H (83-108) mmHg ABG HCO3 27 H (21-25) mmol/L ABG Total CO2 28 H (19-24) mmol/L ABG O2 Saturation 98.7 H (94-97) % Sodium 131 L (137-145) mmol/L Chloride 94 L (98-107) mmol/L BUN 56 H (9-20) mg/dL Creatinine 2.10 H (0.66-1.25) mg/dL Glucose 211 H (74-99) mg/dL POC Glucose (mg/dL) 237 H (70-110) mg/dL Calcium 7.3 L (8.4-10.2) mg/dL Assessment and Plan Assessment: Impression: Acute hypoxic respiratory failure, suspect healthcare acquired pneumonia, noncardiogenic pulmonary edema, ARDS. Acute on chronic kidney disease, patient is on hemodialysis, no major improvement noted on chest x-ray in spite of dialysis Upper GI bleeding with episodic drop in hemoglobin, requiring at times blood transfusion, patient received a total of 2 units of packed RBCs since admission Bilateral lower extremity edema Acute non-ST elevation myocardial infarction Anemia of chronic disease and possible some component of new onset GI bleeding History of stage III chronic kidney disease Type 2 diabetes with diabetic nephropathy Benign essential hypertension Hypothyroidism History of BPH Recommendation: I updated his family at bedside about his condition and made aware that there is no significant improvement in the last week and since admission, family is to decide regarding comfort care measures in the meantime CODE STATUS remains DO NOT RESUSCITATE Continue ventilatory support, some changes made today in the vent settings but he will remain on pressure control increased the PEEP up to 14 cut down the inspiratory time to 0.75 seconds Continue pressure control mode of mechanical ventilation. No changes made in the ventilator settings today Continue hemodialysis Continue antibiotics empirically Continue empiric antibiotics Continue enteral feeding/ nutritional support Continue to monitor urine output Continue to monitor renal functioning Patient remains critically ill, no work ready for any weaning , CODE STATUS was changed yesterday to DO NOT RESUSCITATE CODE STATUS Remains critically ill Critical care time is over 30 minutes Family is updated again today on his condition Time with Patient: Greater than 30
[2023-03-25 13:02] LABS: Glucose,Whole Blood 225 mg/dL (70-110)
--- NOTE | 2023-03-25 14:55 | P.PN ---
Subjective Progress Note Date: 03/25/23 77 years old male with past medical history of Diabetes Mellitus, Hyperlipidemia, Hypertension, Osteoarthritis, cervical spine decompression and fusion surgery. PCP is Dr. Blount patient was sent from our with for shortness of breathwith hypoxia and saturating 81. 82% on 4 L oxygen via nasal cannula. Right upper extremity PICC line patient last time he was discharged on daptomycin every 48 hours 14 d ays.patient finished treatment and his lower extremity cellulitis is improving patient currently on BiPAP, with oxygen saturation 97%. Afebrile. Labs showed leukocytosis of 14,000, hemoglobin 7.5 creatinine is elevated at 2.8 which is at baseline of 2.2-3.0 Troponin is elevated at 0.15, 0.13.proBNP 4460. TSH is low at 0.09 Urine analysis is not suspicious for infection. chest x-ray: confluent bilateral Multifocal airspace opacities patient is a started on ceftriaxone, Zithromax IV Lasix 03/13/2023 Patient is seen and evaluated in room at bedside; remains on BiPAP; patient went into respiratory distress during the night; stat ABGs were completed which revealed a pO2 of 103 and pCO2 of 41 - Patient is currently on BiPAP with FiO2 of 100% -- Vital signs are reviewed and remained stable Blood work reveals a WBC of 16.8, hemoglobin of 7, hematocrit 22.5 and platelet count of 182, sodium 154 cultures and 2.1, BUN/creatinine of 104/3.15 and blood glucose of 240 --Chest x-ray reveals diffuse bilateral infiltrates possibly diffuse pneumonia versus interstitial edema or acute respiratory distress syndrome - Patient remains on IV heparin for possible PE; V/Q scan cannot be completed due to unstable respiratory status -- Patient has been placed on IV fluids in form of D5 water for hypernatremia; we will monitor sodium levels closely Prognosis remains guarded 03/14/2023 Patient is seen and evaluated in room at bedside; transferred to ICU; patient had been agitated and restless and noncompliant with BiPAP resulting in worsening respiratory status -- Patient has been placed on Precedex and remains on BiPAP with settings of 16/8 and 80% Vital signs are reviewed with temperature of 98.4, pulse 59, respirations 17 and blood pressure of 164/68 White count is 22.4, hemoglobin 7.4, hematocrit 24.5, with a normal platelet count. Sodium 157, potassium 2.8, chlorides 119, CO2 26, BUN 109, and creatinine 2.73. Chest x-ray continues to show bilateral airspace disease, which may be on the basis of fluid, pneumonia, or acute respiratory distress syndrome. The patient's currently on IV heparin empirically. The patient's also receiving Zosyn. Heparin can be discontinued once PE is ruled out 03/15. Patient seen and examined. Labs done this morning showed WBC 18.9, hemoglobin 7.2, platelet count 179, sodium 156, potassium 2.9, BUN 97, creatinine 2.86. Patient was intubated overnight, currently on mechanical ventilation. Currently on propofol. 03/16. Patient seen and examined. Patient continues to be intubated. Hemoglobin this morning is 6.8. Patient getting 1 unit of packed red blood cell. Blood sugars were elevated, currently on insulin drip 03/17/2023 Patient is currently intubated and on mechanical ventilator, assist control. Patient is also sedated with propofol. Chest x-ray today showed similar bilateral airspace disease with lower lung predominance. Patient had bronchoscopy done on 03/15/2023 showed no growth so far. Patient is being continued on Zosyn. Patient is on IV hydration. Patient is also on insulin drip for better blood sugar control. Laboratory data showed sodium 143 potassium 4.2 chloride 109 bicarb is 23 BUN 111 and creatinine 3.26 blood sugar 120, WBC 17.7 hemoglobin 7.5 and platelets 138. 03/18/2023 Patient remained on mechanical ventilator. Assist-control and PEEP increased to 12 with FiO2 50%. Chest x-ray showed stable lower lobe pulmonary infiltrates. ABG showed pH of 7.34, PCO2 41 and PO2 112. BAL cultures have been negative. Patient is being current Zosyn. Laboratory data showed WBC 16.8 hemoglobin 7.5 and platelets 112 BUN 119 and creatinine 3.5 bicarb is 20 blood sugar is 129. Calcium 7.2. IV fluids down to KVO. Pulmonary, nephrology is on board. Dr Cruz Assumed care 03/19/23: Patient seen and evaluated and bedside patient remains intubated, sedated. On mechanical ventilator. Blood work reviewed, noted to have anemia, 1 unit of packed RBC given 03/20/2023: Patient seen and evaluated, and remains intubated, on mechanical ventilator, on propofol. Blood work reviewed hemoglobin remained stable, potassium of 25.5, nephrology following plan for hemodialysis today axis already in place 03/21/23: Patient remains intubated, sedated with propofol. Hemodialysis access in groin. Second session of hemodialysis today plan to remove 2 L, first session of hemodialysis was 03/20 and 2 L were removed. Patient followed by nephrology, critical care, cardiology. Continue IV antibiotic with Zosyn. Cont inue to monitor H&H 03/22/23: Patient seen and evaluated bedside, patient intubated, sedated with pro pofol. Patient on IV Cardizem for paroxysmal tachycardia. Underwent hemodialysis third session today. Output from oral gastric tube is decreased 03/23/23: Patient seen and evaluated bedside, patient continued to remain intubated and sedated with propofol. Order to have paroxysmal tachycardia. S jorge chemistry pending 03/24. Patient seen and examined. Continues to be intubated. Currently [facility] ed[facility] today 03/25/23: Patient seen and evaluated in ICU. Remains intubated and sedated. Patient remains on Cardizem drip, remains uncomfortable. Continue nutritional support. Prognosis remains guarded Objective - Vital Signs Vital signs: Vital Signs Temp 98 F 03/25/23 08:00 Pulse 113 H 03/25/23 11:19 Resp 25 H 03/25/23 11:00 BP 146/60 03/24/23 11:41 Pulse Ox 89 L 03/25/23 11:00 FiO2 55 03/25/23 10:57 Intake & Output 03/24/23 03/25/23 03/25/23 18:59 06:59 18:59 Intake Total 1213.207 855.550 291.882 Output Total 3175 530 220 Balance -1961.793 325.550 71.882 Weight 108.6 kg 108.6 kg Intake: IV 166 143 65 NS TKO 130 110 50 Pressure bag 36 33 15 Intake, IV Titration 466.207 465.550 141.882 Amount Diltiazem 125 mg In 2.667 83.667 Sodium Chloride 0.9% 100 ml @ Per Protocol IV .Q0M [facility] Rx#:[id number] Piperacillin-Tazobactam 3 100 .375 gm In Sodium Chloride 0.9% 100 ml @ 25 mls/hr IVPB Q12HR [facility] Rx #:[id number] propofoL 1,000 mg In 363.54 381.883 141.882 Empty Bag 1 bag @ 15 MCG/ KG/MIN 9.945 mls/hr IV . Q10H4M [facility] Rx#:[id number] Oral 30 Tube Feeding 221 187 85 Hemodialysis 300 Other 30 60 Output: Urine 875 530 220 Hemodialysis 2300 Other: Voiding Method Indwelling Catheter Indwelling Catheter Indwelling Catheter ABP, PAP, CO, CI - Last Documented Arterial Blood Pressure 144/52 - Exam PHYSICAL EXAMINATION: GENERAL: The patient is intubated, orogastric tube in place, Meneses cath in place, groin hemodialysis access in place, diffuse anasarca HEENT: endotracheal tube and orogastric tube in place CARDIOVASCULAR: S1 and S2 present tachycardia PULMONARY: Decreased breath sounds bilaterally, intubated on ventilator ABDOMEN: Soft, nontender, nondistended, normoactive bowel sounds. NEUROLOGICAL: Intubated and sedated neurological exam limited - Labs CBC & Chem 7: 03/25/23 05:15 03/25/23 05:15 Labs: Abnormal Lab Results - Last 24 Hours (Table) 03/24/23 03/24/23 03/25/23 Range/Units 18:22 23:33 05:15 WBC 18.9 H (3.8-10.6) k/uL RBC 2.50 L (4.30-5.90) m/uL Hgb 7.4 L (13.0-17.5) gm/dL Hct 22.5 L (39.0-53.0) % RDW 17.0 H (11.5-15.5) % Plt Count 109 L (150-450) k/uL Neutrophils # 17.9 H (1.3-7.7) k/uL Lymphocytes # 0.5 L (1.0-4.8) k/uL ABG pH (7.35-7.45) ABG pCO2 (35-45) mmHg ABG pO2 (83-108) mmHg ABG HCO3 (21-25) mmol/L ABG Total CO2 (19-24) mmol/L ABG O2 Saturation (94-97) % Sodium (137-145) mmol/L Chloride (98-107) mmol/L BUN (9-20) mg/dL Creatinine (0.66-1.25) mg/dL Glucose (74-99) mg/dL POC Glucose (mg/dL) 207 H 189 H (70-110) mg/dL Calcium (8.4-10.2) mg/dL 03/25/23 03/25/23 03/25/23 Range/Units 05:15 05:27 06:17 WBC (3.8-10.6) k/uL RBC (4.30-5.90) m/uL Hgb (13.0-17.5) gm/dL Hct (39.0-53.0) % RDW (11.5-15.5) % Plt Count (150-450) k/uL Neutrophils # (1.3-7.7) k/uL Lymphocytes # (1.0-4.8) k/uL ABG pH 7.33 L (7.35-7.45) ABG pCO2 51 H (35-45) mmHg ABG pO2 135 H (83-108) mmHg ABG HCO3 27 H (21-25) mmol/L ABG Total CO2 28 H (19-24) mmol/L ABG O2 Saturation 98.7 H (94-97) % Sodium 131 L (137-145) mmol/L Chloride 94 L (98-107) mmol/L BUN 56 H (9-20) mg/dL Creatinine 2.10 H (0.66-1.25) mg/dL Glucose 211 H (74-99) mg/dL POC Glucose (mg/dL) 237 H (70-110) mg/dL Calcium 7.3 L (8.4-10.2) mg/dL Assessment and Plan Assessment: Assessment and plan * Multifocal pneumonia * Acute hypoxic respiratory failure due to Pneumonia * Acute blood loss anemia suspect upper GI bleed and it for EGD * Elevated troponin * 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 Managed by ICU team * In regards to acute anemia patient has OG tube in place with dark brown residue. Continue patient on Protonix, general surgery consulted * In regards to elevated troponin seen by cardiology, continue medical management antiplatelet/anticoagulation on hold due to anemia * In regards to history of atrial fibrillation with rapid monitor response, continue Coreg. On Cardizem through orogastric tube * In regards to multifocal pneumonia continue Zosyn * In regards to worsening renal failure, nephrology following , continue hemodialysis last session 03/22 * Prognosis remains poor
--- NOTE | 2023-03-25 15:29 | P.PN ---
Subjective Progress Note Date: 03/25/23 Principal diagnosis: Sepsis/pneumonia Patient is a 77-year-old male with a past medical his significant for diabetes mellitus hypertension hyperlipidemia prostate disorder presenting to the hospital on 03/07/2023 for evaluation of increasing shortness of breath weakness and mental status changes, subsequently did have worsening of his respiratory status requiring transfer the ICU ended up getting intubated, the patient is status post bronchoscopy completed on 03/15/2023, patient did got dialysis catheter on 03/20/2023 through and got dialyzed On today's evaluation that is 03/25/2023, the patient remains to be afebrile, the patient is on the vent and FiO2 is stable at 55% , patient is hemodynamically stable not requiring any pressor support, no significant puru lent secretions through the ET or any diarrhea reported by the nursing staff Patient white count is slightly up to 18.9, creatinine is 2.10 Objective - Vital Signs Vital signs: Vital Signs Temp 98 F 03/25/23 08:00 Pulse 113 H 03/25/23 11:19 Resp 20 03/25/23 12:00 BP 146/60 03/24/23 11:41 Pulse Ox 89 L 03/25/23 11:00 FiO2 55 03/25/23 12:00 Intake & Output 03/24/23 03/25/23 03/25/23 18:59 06:59 18:59 Intake Total 1213.207 855.550 321.882 Output Total 3175 530 265 Balance -1961.793 325.550 56.882 Weight 108.6 kg 108.6 kg Intake: IV 166 143 78 NS TKO 130 110 60 Pressure bag 36 33 18 Intake, IV Titration 466.207 465.550 141.882 Amount Diltiazem 125 mg In 2.667 83.667 Sodium Chloride 0.9% 100 ml @ Per Protocol IV .Q0M [facility] Rx#:[id number] Piperacillin-Tazobactam 3 100 .375 gm In Sodium Chloride 0.9% 100 ml @ 25 mls/hr IVPB Q12HR [facility] Rx #:[id number] propofoL 1,000 mg In 363.54 381.883 141.882 Empty Bag 1 bag @ 15 MCG/ KG/MIN 9.945 mls/hr IV . Q10H4M [facility] Rx#:[id number] Oral 30 Tube Feeding 221 187 102 Hemodialysis 300 Other 30 60 Output: Urine 875 530 265 Hemodialysis 2300 Other: Voiding Method Indwelling Catheter Indwelling Catheter Indwelling Catheter ABP, PAP, CO, CI - Last Documented Arterial Blood Pressure 144/52 - Exam GENERAL DESCRIPTION: An elderly male intubated on the vent in no distress RESPIRATORY SYSTEM: Unlabored breathing , decreased breath sounds at bases HEART: S1 S2 regular rate and rhythm , ABDOMEN: Soft , no tenderness EXTREMITIES: No edema feet - Labs CBC & Chem 7: 03/25/23 05:15 03/25/23 05:15 Labs: Abnormal Lab Results - Last 24 Hours (Table) 03/24/23 03/24/23 03/25/23 Range/Units 18:22 23:33 05:15 WBC 18.9 H (3.8-10.6) k/uL RBC 2.50 L (4.30-5.90) m/uL Hgb 7.4 L (13.0-17.5) gm/dL Hct 22.5 L (39.0-53.0) % RDW 17.0 H (11.5-15.5) % Plt Count 109 L (150-450) k/uL Neutrophils # 17.9 H (1.3-7.7) k/uL Lymphocytes # 0.5 L (1.0-4.8) k/uL ABG pH (7.35-7.45) ABG pCO2 (35-45) mmHg ABG pO2 (83-108) mmHg ABG HCO3 (21-25) mmol/L ABG Total CO2 (19-24) mmol/L ABG O2 Saturation (94-97) % Sodium (137-145) mmol/L Chloride (98-107) mmol/L BUN (9-20) mg/dL Creatinine (0.66-1.25) mg/dL Glucose (74-99) mg/dL POC Glucose (mg/dL) 207 H 189 H (70-110) mg/dL Calcium (8.4-10.2) mg/dL 03/25/23 03/25/23 03/25/23 Range/Units 05:15 05:27 06:17 WBC (3.8-10.6) k/uL RBC (4.30-5.90) m/uL Hgb (13.0-17.5) gm/dL Hct (39.0-53.0) % RDW (11.5-15.5) % Plt Count (150-450) k/uL Neutrophils # (1.3-7.7) k/uL Lymphocytes # (1.0-4.8) k/uL ABG pH 7.33 L (7.35-7.45) ABG pCO2 51 H (35-45) mmHg ABG pO2 135 H (83-108) mmHg ABG HCO3 27 H (21-25) mmol/L ABG Total CO2 28 H (19-24) mmol/L ABG O2 Saturation 98.7 H (94-97) % Sodium 131 L (137-145) mmol/L Chloride 94 L (98-107) mmol/L BUN 56 H (9-20) mg/dL Creatinine 2.10 H (0.66-1.25) mg/dL Glucose 211 H (74-99) mg/dL POC Glucose (mg/dL) 237 H (70-110) mg/dL Calcium 7.3 L (8.4-10.2) mg/dL 03/25/23 Range/Units 13:01 WBC (3.8-10.6) k/uL RBC (4.30-5.90) m/uL Hgb (13.0-17.5) gm/dL Hct (39.0-53.0) % RDW (11.5-15.5) % Plt Count (150-450) k/uL Neutrophils # (1.3-7.7) k/uL Lymphocytes # (1.0-4.8) k/uL ABG pH (7.35-7.45) ABG pCO2 (35-45) mmHg ABG pO2 (83-108) mmHg ABG HCO3 (21-25) mmol/L ABG Total CO2 (19-24) mmol/L ABG O2 Saturation (94-97) % Sodium (137-145) mmol/L Chloride (98-107) mmol/L BUN (9-20) mg/dL Creatinine (0.66-1.25) mg/dL Glucose (74-99) mg/dL POC Glucose (mg/dL) 225 H (70-110) mg/dL Calcium (8.4-10.2) mg/dL Assessment and Plan (1) Pneumonia Current Visit: No Status: Acute Code(s): J18.9 - PNEUMONIA, UNSPECIFIED ORGANISM SNOMED Code(s): 249451089 Plan: 1patient with acute respiratory failure which is multifactorial in this patient with initial presentation of sepsis possible pneumonia and also a component of fluid overload in this patient with evidence of renal failure 2-patient remains to be febrile and the patient white count is slightly up today and will monitor closely 3-patient to continue with Zosyn with overall poor prognosis and possible plan for hospice which may be appropriate, hence we will hold on adding any further workup at this point Family the bedside questions were answered Dictation was produced using [id number] dictation software. please excuse any grammatical, word or spelling errors. Time with Patient: Less than 30
[2023-03-25 18:11] LABS: Glucose,Whole Blood 273 mg/dL (70-110)
[2023-03-25] MEDS: CLEVIDIPINE BUTYRATE 25 MG in EMPTY BAG 1 BAG IV SCH (18:19)
[2023-03-25] MEDS: INSULIN DETEMIR (LEVEMIR) 100 UNIT/ML SYR SQ SCH (20:18)
[2023-03-25 23:47] LABS: Glucose,Whole Blood 264 mg/dL (70-110)
[2023-03-26] MEDS: IPRATROPIUM-ALBUTEROL 3 ML NEB INHALATION SCH ×4 (00:08→13:27)
[2023-03-26] MEDS: FUROSEMIDE 10 MG/ML 10 ML VIAL IV SCH ×2 (00:23→08:16)
[2023-03-26] MEDS: INSULIN ASPART (NovoLOG) 100 UNIT/ML VIAL SQ SCH ×3 (00:23→12:00)
[2023-03-26] MEDS: HYDROmorphone 1 MG/ML 1 ML SYRINGE IVP PRN ×4 (04:20→13:34)
[2023-03-26 05:14] LABS: Glucose,Whole Blood 250 mg/dL (70-110)
[2023-03-26 05:38] LABS: Anisocytosis Slight; Basophils % (A) 0 %; Eosinophils % (A) 0 %; HCT 21.9 % (39.0-53.0); HGB 7.4 gm/dL (13.0-17.5); Hypochromasia Slight; Lymphocytes # (A) 0.6 k/uL (1.0-4.8); Lymphocytes % (A) 3 %; MCH 30.4 pg (25.0-35.0); MCHC 33.7 g/dL (31.0-37.0); MCV 90.3 fL (80.0-100.0); Mean Platelet Volume 14.1; Monocytes # (A) 0.4 k/uL (0-1.0); Monocytes % (A) 2 %; Neutrophils # (A) 18.6 k/uL (1.3-7.7); Neutrophils % (A) 95 %; Platelet Count 118 k/uL (150-450); RBC 2.43 m/uL (4.30-5.90); WBC 19.7 k/uL (3.8-10.6)
[2023-03-26 05:42] LABS: African American GFR (CKD) 33 (>60 ml/min/1.73 sqM); Anion Gap 15 mmol/L; Blood Urea Nitrogen 70 mg/dL (9-20); Calcium 7.2 mg/dL (8.4-10.2); Carbon Dioxide 22 mmol/L (22-30); Chloride 91 mmol/L (98-107); Glucose 239 mg/dL (74-99); Non-African American GFR(CKD) 28 (>60 ml/min/1.73 sqM); Potassium 4.1 mmol/L (3.5-5.1); Sodium 128 mmol/L (137-145)
[2023-03-26 06:20] LABS: ABG Base Excess -1.9 mmol/L; ABG HCO3 25 mmol/L (21-25); ABG Oxygen Saturation 96.5 % (94-97); ABG PCO2 53 mmHg (35-45); ABG PH 7.28 (7.35-7.45); ABG PO2 86 mmHg (83-108); ABG TCO2 27 mmol/L (19-24); Allen Test Performed? Yes
[2023-03-26] MEDS: carvediloL 12.5 MG TAB PO SCH (06:36)
[2023-03-26] MEDS: CALCIUM ACETATE 667 MG TAB PO SCH ×2 (06:36→13:33)
[2023-03-26] MEDS: LEVOTHYROXINE IVP 100 MCG/5 ML VIAL IV SCH ×2 (08:15→08:17)
[2023-03-26] MEDS: CHLORHEXIDINE GLUCONATE 15 ML CUP MUCOUS MEM SCH (08:16)
[2023-03-26] MEDS: methylPREDNISolone SOD SUCCI 40 MG/ML 1 ML VIAL IV SCH (08:17)
[2023-03-26] MEDS: PANTOPRAZOLE 40 MG/10 ML VIAL IVP SCH (08:17)
[2023-03-26] MEDS: PIPERACILLIN-TAZOBACTAM 3.375 GM in SODIUM CHLORIDE 0.9% 100 ML IVPB SCH (08:18)
[2023-03-26] MEDS: hydrALAZINE HCL 50 MG TAB PO SCH (08:18)
--- NOTE | 2023-03-26 08:18 | XR ---
EXAMINATION TYPE: XR chest 1V portable DATE OF EXAM: 03/26/2023 COMPARISON: 03/25/2023 HISTORY: SOB, Follow Up FINDINGS: Indwelling tubes and catheters are unchanged. No change in perihilar and basilar infiltrates. Stable appearance of the cardio-mediastinal structures at this time. IMPRESSION: 1. Stable portable chest. Clinical correlation and follow up until resolution is recommended.
[2023-03-26] MEDS: BUDESONIDE 1 MG/2 ML NEBU INHALATION SCH (08:37)
[2023-03-26] MEDS: FORMOTEROL FUMARATE 20 MCG/2 ML NEBU INHALATION SCH (08:37)
[2023-03-26] MEDS: DILTIAZEM ORAL 60 MG TAB PO SCH ×2 (08:51→13:33)
[2023-03-26] MEDS: metOLazone 2.5 MG TAB PO SCH (08:51)
[2023-03-26] MEDS: SODIUM CHLORIDE 0.9% 1,000 ML IV SCH (08:52)
[2023-03-26] MEDS: HYDROPHILIC CREAM 180 GM TUBE TOPICAL SCH (08:54)
[2023-03-26 10:43] VITALS: TEMP 97.4
--- NOTE | 2023-03-26 11:09 | P.PN ---
Subjective Patient is seen for follow-up for acute kidney injury and top of chronic kidney disease. Started hemodialysis on 03/20/2023 for ATN and volume overload. Urine output decreased to about 10-20 mL per hour Family considering possible comfort care measures Objective - Vital Signs Vital signs: Vital Signs Temp 97.4 F L 03/26/23 08:00 Pulse 144 H 03/26/23 10:00 Resp 32 H 03/26/23 10:00 BP 146/60 03/24/23 11:41 Pulse Ox 91 L 03/26/23 10:00 FiO2 55 03/26/23 08:27 Intake & Output 03/25/23 03/26/23 03/26/23 18:59 06:59 18:59 Intake Total 004.686 9400.171 221.977 Output Total 485 460 82 Balance 216.882 585.171 139.977 Weight 108.6 kg 111.5 kg Intake: IV 156 143 33 NS TKO 120 110 30 Pressure bag 36 33 3 Intake, IV Titration 341.882 591.171 154.977 Amount propofoL 1,000 mg In 341.882 591.171 154.977 Empty Bag 1 bag @ 15 MCG/ KG/MIN 9.945 mls/hr IV . Q10H4M [facility] Rx#:[id number] Tube Feeding 204 221 34 Other 90 Output: Urine 485 460 82 Other: Voiding Method Indwelling Catheter Indwelling Catheter Indwelling Catheter ABP, PAP, CO, CI - Last Documented Arterial Blood Pressure 125/55 - Exam Patient is sedated and on the vent Examination of the heart S1 and S2 Examination of the lungs bilateral breath sounds are heard Abdomen is soft Examination lower extremity shows edema 2+ bilaterally - Labs CBC & Chem 7: 03/26/23 05:10 03/26/23 05:10 Labs: Abnormal Lab Results - Last 24 Hours (Table) 03/25/23 03/25/23 03/25/23 Range/Units 13:01 18:09 23:45 WBC (3.8-10.6) k/uL RBC (4.30-5.90) m/uL Hgb (13.0-17.5) gm/dL Hct (39.0-53.0) % RDW (11.5-15.5) % Plt Count (150-450) k/uL Neutrophils # (1.3-7.7) k/uL Lymphocytes # (1.0-4.8) k/uL ABG pH (7.35-7.45) ABG pCO2 (35-45) mmHg ABG Total CO2 (19-24) mmol/L Sodium (137-145) mmol/L Chloride (98-107) mmol/L BUN (9-20) mg/dL Creatinine (0.66-1.25) mg/dL Glucose (74-99) mg/dL POC Glucose (mg/dL) 225 H 273 H 264 H (70-110) mg/dL Calcium (8.4-10.2) mg/dL 03/26/23 03/26/23 03/26/23 Range/Units 05:10 05:10 05:12 WBC 19.7 H (3.8-10.6) k/uL RBC 2.43 L (4.30-5.90) m/uL Hgb 7.4 L (13.0-17.5) gm/dL Hct 21.9 L (39.0-53.0) % RDW 17.0 H (11.5-15.5) % Plt Count 118 L (150-450) k/uL Neutrophils # 18.6 H (1.3-7.7) k/uL Lymphocytes # 0.6 L (1.0-4.8) k/uL ABG pH (7.35-7.45) ABG pCO2 (35-45) mmHg ABG Total CO2 (19-24) mmol/L Sodium 128 L (137-145) mmol/L Chloride 91 L (98-107) mmol/L BUN 70 H (9-20) mg/dL Creatinine 2.19 H (0.66-1.25) mg/dL Glucose 239 H (74-99) mg/dL POC Glucose (mg/dL) 250 H (70-110) mg/dL Calcium 7.2 L (8.4-10.2) mg/dL 03/26/23 Range/Units 06:16 WBC (3.8-10.6) k/uL RBC (4.30-5.90) m/uL Hgb (13.0-17.5) gm/dL Hct (39.0-53.0) % RDW (11.5-15.5) % Plt Count (150-450) k/uL Neutrophils # (1.3-7.7) k/uL Lymphocytes # (1.0-4.8) k/uL ABG pH 7.28 L (7.35-7.45) ABG pCO2 53 H (35-45) mmHg ABG Total CO2 27 H (19-24) mmol/L Sodium (137-145) mmol/L Chloride (98-107) mmol/L BUN (9-20) mg/dL Creatinine (0.66-1.25) mg/dL Glucose (74-99) mg/dL POC Glucose (mg/dL) (70-110) mg/dL Calcium (8.4-10.2) mg/dL Assessment and Plan Assessment: 1. Acute kidney injury secondary to ATN secondary to hemodynamic instability and infection. Nonoliguric. No hydronephrosis noted on kidney ultrasound. Right kidney wasn't properly visualized. Left kidney is atrophic. Started on hemodialysis 03/20/2023. 2. Chronic kidney disease stage IV with baseline creatinine 2-2.5. 3. Hypernatremia from free water diuresis and lack of oral water intake. Status post D5W. Improved. 4. Hypokalemia from diuresis. No hyperkalemic. 5. Acute hypoxic respiratory failure secondary to pneumonia and volume overload. Status post bronchoscopy 03/15/2023. 6. Pneumonia on antibiotics. 7. Acute blood loss anemia. Status post blood transfusion this admission. Also received IV DDAVP. Heparin drip stopped. On Aranesp. Hemoglobin 7.4 this morning. 8. Hyperphosphatemia secondary to acute kidney injury. Plan: Continue with Lasix Proceed with hemodialysis today if no plans for comfort care measures.
[2023-03-26 11:52] LABS: Glucose,Whole Blood 231 mg/dL (70-110)
--- NOTE | 2023-03-26 13:11 | P.PN ---
Subjective Progress Note Date: 03/26/23 Principal diagnosis: Acute hypoxic respiratory failure, suspect healthcare acquired pneumonia and ARDS. On today's evaluation of 03/23/2023, I'm seeing the patient in the intensive care unit. At this point in time, the patient is intubated on a mechanical ventilator. Overnight, the patient became acutely hypoxic and more short of breath and he developed diffuse but the pulmonary infiltrates consistent with pneumonia and based on that the patient was intubated and placed on a mechanical ventilator. Note that this patient is 77 years of age. He has diabetes mellitus type 2, chronic kidney disease, hypothyroidism, COPD, hyperlipidemia and hypertension. He was also recently treated for cellulitis of lower extremity, discharged to [facility] for IV antibiotics through a PICC line in his right upper extremity and he received and completed the course of daptomycin. Discharged home to be readmitted for shortness of breath to our hospital on 03/08/2023. Note that the patient was being supported with BiPAP as various pressures. His proBNP level was elevated. His echocardiograms was recent showed a preserved LV function without any significant abnormalities. He was gi fransisco bronchodilators. He was given IV Solu-Medrol. He was given IV Lasix. Another dose of Lasix was given to him by the nurse practitioner at 2:30 AM this morning. He has a Meneses catheter in place. Urine output is in order of 100 mL an hour. At this point in time, the patient remains on mechanical ventilator. He was quite a successful the mechanical ventilator and he was having frequent episodes of desaturation. He is on propofol running at 55 mcg/kg/m. I switched this patient's blood pressure control mode of mechanical ventilation and currently is on a pressure control of 12, rate of 26, PEEP of 12 with a FiO2 of 60%. His current pulse ox is 95%. He is on IV heparin and this was I believe initiated due to concerns of pulmonary embolism, on an empiric basis. The echoes at 18.9, hemoglobin is at 7.2, platelet count of 179, most recent blood gas showed a pH of 7.38 with a pCO2 of 43 and pO2 of 140. BUN is at 97 with a creatinine of 2.8, sodium level is at 156 and a potassium level is at 2.9. IV fluids are at KVO, 0.9. On 03/20/2023, I'm seeing the patient for a follow-up. Unfortunately, not a whole lot of progress since yesterday. He was started on diuretics yesterday and urine output remained insufficient and the patient remains in a positive fluid balance. At the same time, the patient continues to have dense consolidations of the lung bases bilaterally. The patient remains on a mechanical ventilator. The patient remains sedated on propofol which is running at 50 mcg/kg/m. He is on a pressure control mode of mechanical ventilation with a pressure control of 12, rate of 26, FiO2 of 60% with a PEEP of 12. Blood gas shows respiratory acidosis with a pH of 7.19 with a pCO2 of 52 and pO2 of 113. The patient's BUN is at 139, creatinine is higher compared to yesterday at 3.7. Sodium is at 140. The white cell count is currently at 17.7 which is improved compared to yesterday with a hemoglobin of 8.5 and a platelet count of 100 with is essentially stable. The patient remains on IV Zosyn. He is afebrile. The patient is currently nothing by mouth. He was having episodic drop in hemoglobin and he has received packed RBC transfusion and the last transfusion was yesterday. Hemoglobin currently stable. The output from the OG is 150 cc, coffee-ground/dark possibly indicating an upper GI bleed. He remains nothing by mouth. He remains on IV Protonix. No melanotic stools. Blood sugar control is adequate and the patient is currently on Levemir insulin. On 03/21/2023, the patient is essentially the same intubated on a mechanical ventilator. He was started hemodialysis yesterday. He received the first session of hemodialysis with 2 L of fluid removal and is going to have another session today. He has a right femoral triple-lumen catheter in place. He remains sedated on propofol which is currently running at 45 mcg/kg/m. His b lood pressure was noted to be elevated and the patient was started on Cleviprex strep which was subsequently discontinued. His calm and comfortable and symptoms of the mechanical ventilator. Is on a pressure control mode at a rate of 30, pressure of 16 cm of water and FiO2 of 60% with a PEEP of 12. Blood gas shows some improvement in his oxygenation. PH is at 7.25 with a pCO2 of 43 and pO2 125. Chest x-ray findings are essentially unchanged with dense consolidations bilaterally. Orotracheal tube is in a good location. He also has a orogastric tube in place and output from the stomach is quite minimal yet bloody and there is obvious coffee-ground material. No bright blood per rectum. No melanotic stools. His hemoglobin is dropped slightly is currently at 7.7. He is on no pressors for now. He remains nothing by mouth. Cardiac rhythm is sinus. Patient was reevaluated , remains intubated and mechanically ventilated, remains in the ICU, patient is on pressure control mode of mechanical ventilation, rate is set at 30 inspiratory time is 0.951, down to 0.80 FiO2 60% I cut it down to 55% PEEP remains high at 12 ABG showed a pO2 of 111 pCO2 43 pH of 7.33 patient remains on Cardizem for atrial fibrillation with RVR is also on propofol at 50 mcg/kg/m received hemodialysis on 03/20 and L were removed. Received 2 units of packed RBCs for hemoglobin of 7.2 continues to have some coffee-ground material and nasogastric tube, but we'll restart tube feeding. Chest x-ray continues to show bilateral diffuse interstitial infiltrates consistent with ARDS, underlying pneumonia or underlying pulmonary edema is not entirely ruled out, but I believe this is mostly noncardiogenic pulmonary edema is not improving much even with hemodialysis. WBC count of 15.5 hemoglobin 7.2 basic metabolic profile is relatively normal except for bicarb of 19 BUN of 85 creatinine 2.59 blood cultures sputum cultures and bronchial cultures are all negative. Reevaluated today on 03/23/2023, patient remains in the ICU, intubated and mechanically ventilated. Patient is on assist control rate of 30, pressure control mode 16, inspiratory time is 0.8 FiO2 55% PEEP of 12 ABG showed a pO2 of 75 pCO2 41 pH of 7.39 patient remains sedated, on propofol at 50 mcg/kg/m receiving Nepro at 17 mL per hour. Patient is on hemodialysis, last dialysis was yesterday and 2 L were removed. Remains on Zosyn, and I'm arranging for the patient to have a PICC line today. Patient was actually intubated initially on 03/15, and family may have to be approached sometime by the end of the week r egarding tracheostomy and PEG tube placement unless the patient makes a dramatic improvement and he could be weaned and extubated. I'm not seeing that happening in the near future. Chest x-ray continues to show evidence of bilateral interstitial edema/infiltrates, consistent with ARDS. Patient continues to have atrial fibrillation with RVR. And that is being addressed by cardiology. WBC count today is 12.3 hemoglobin is 7.5 electrolytes are normal BUN is 61 creatinine 2.12 ABG as noted earlier. Reevaluated today on 03/24/2023, patient remains in the ICU intubated and mechanically ventilated, sedated, patient is on assist control rate of 30 pressure-controlled 16 inspiratory time 0.8 FiO2 55% and PEEP of 12 ABG is not showing any change pO2 of 74 pCO2 43 pH of 7.41, not much different from the ABG yesterday. Patient did not have hemodialysis yesterday but he is having hemodialysis today, and the goal is to remove 2.5 L at least. Continues to have urine output of 50-75 mL per hour with Lasix 60 mg IV push twice a day remains on Zosyn remains on enteral feeding/Nepro is also on propofol at 50 mcg/kg/m. Hemodynamically not requiring any pressors. WBC count is 15.4 hemoglobin is 7.5 sodium 131 potassium 3.5 BUN is 72 creatinine 2.41 chest x-ray continues to show bilateral interstitial infiltrates/edema. Not much of a change in the last few days Reevaluated today on 03/25/2023, patient remains in the ICU, remains intubated and mechanically. He is on assist control rate of 30 pressure control mode of mechanical ventilation with a pressure control of 16 inspiratory time of 0.75 FiO2 is up-to-date to 70% but I was able to cut it down back to 55% and a increased the PEEP from 12 up to 14. Earlier ABG on 80% FiO2 showed a pO2 of 135 pCO2 51 pH of 7.33. Patient remains on Cardizem drip at 10 mg per hour and is also on propofol 60 mcg/kg/m he is receiving hemodialysis again today, and he received hemodialysis yesterday 2 L anymore. Remains on nutritional support/ Nepro at 17 mL per hour. Urine output is 40-70 mL per hour continues on Lasix 60 mg every 8 hours. Remains on enteral feeding as noted earlier. And he is not requiring any pressors at this point chest x-ray continues to show evidence of ARDS/bilateral interstitial infiltrates/edema not improving in spite of hemodialysis. Basic metabolic profile is relatively normal bicarb is normal BUN is 56 creatinine 2.10 Patient was seen in 03/26/2023, patient remains in the ICU, intubated and mechanically ventilated. Not much of a change has happened over the last 24 hours, family was updated on his condition again yesterday, and they are seriously considering comfort care measures which may be started today. In the meantime the patient remains on assist control rate of 30 and I increased the rate up to 72. He is on pressure control of 16 inspiratory time of 0.75 FiO2 of 55% and PEEP remains at 14. Patient had an ABG showed a pO2 of 86 pCO2 53 pH of 7.28 hence the rate was increased up to 32. Chest x-ray continues to show bilateral interstitial infiltrates/edema/ARDS-type of picture. Minimal change noted compared to the one yesterday but remind you the patient is now on a higher PEEP. WBC count is 19.7 hemoglobin is 7.4 hematocrit is 21.9 basic metabolic profile is relatively normal with a sodium of 128 potassium 4.1 chloride 91 BUN is 70 creatinine 2.1 Objective - Vital Signs Vital signs: Vital Signs Temp 97.4 F L 03/26/23 08:00 Pulse 141 H 03/26/23 12:00 Resp 32 H 03/26/23 12:00 BP 146/60 03/24/23 11:41 Pulse Ox 92 L 03/26/23 12:00 FiO2 55 03/26/23 12:00 Intake & Output 03/25/23 03/26/23 03/26/23 18:59 06:59 18:59 Intake Total 198.975 5151.171 469.427 Output Total 485 460 111 Balance 216.882 585.171 358.427 Weight 108.6 kg 111.5 kg Intake: IV 156 143 53 NS TKO 120 110 50 Pressure bag 36 33 3 Intake, IV Titration 341.882 591.171 254.427 Amount propofoL 1,000 mg In 341.882 591.171 254.427 Empty Bag 1 bag @ 15 MCG/ KG/MIN 9.945 mls/hr IV . Q10H4M [facility] Rx#:[id number] Tube Feeding 204 221 102 Other 90 60 Output: Urine 485 460 111 Other: Voiding Method Indwelling Catheter Indwelling Catheter Indwelling Catheter ABP, PAP, CO, CI - Last Documented Arterial Blood Pressure 140/56 - Exam Physical Exam: Revealed 77-year-old male intubated and mechanically ventilated sedated on propofol in no distress propofol is at 75 mcg/kg/m. Head: Atraumatic, normocephalic. Orogastric tube is intact, endotracheal tube is intact HEENT:[Neck is supple.] [No neck masses.] [No thyromegaly.] [No JVD.] Chest: Crackles at the bases persist, breath sounds are clear anteriorly Cardiac Exam: [Normal S1 and S2, no S3 gallop, no murmur.] Abdomen: [Soft, nontender, no megaly, no rebound, no guarding, normal bowel sounds.] Extremities: [No clubbing, 1 + bipedal edema diminished distal pulses Neurological Exam: Remains on propofol, on lower dose of propofol, patient beco mes extremely agitated and restless and desaturates down to the 70s. Psychiatric: Could not be assessed fully sedated - Labs CBC & Chem 7: 03/26/23 05:10 03/26/23 05:10 Labs: Abnormal Lab Results - Last 24 Hours (Table) 03/25/23 03/25/23 03/26/23 Range/Units 18:09 23:45 05:10 WBC 19.7 H (3.8-10.6) k/uL RBC 2.43 L (4.30-5.90) m/uL Hgb 7.4 L (13.0-17.5) gm/dL Hct 21.9 L (39.0-53.0) % RDW 17.0 H (11.5-15.5) % Plt Count 118 L (150-450) k/uL Neutrophils # 18.6 H (1.3-7.7) k/uL Lymphocytes # 0.6 L (1.0-4.8) k/uL ABG pH (7.35-7.45) ABG pCO2 (35-45) mmHg ABG Total CO2 (19-24) mmol/L Sodium (137-145) mmol/L Chloride (98-107) mmol/L BUN (9-20) mg/dL Creatinine (0.66-1.25) mg/dL Glucose (74-99) mg/dL POC Glucose (mg/dL) 273 H 264 H (70-110) mg/dL Calcium (8.4-10.2) mg/dL 03/26/23 03/26/23 03/26/23 Range/Units 05:10 05:12 06:16 WBC (3.8-10.6) k/uL RBC (4.30-5.90) m/uL Hgb (13.0-17.5) gm/dL Hct (39.0-53.0) % RDW (11.5-15.5) % Plt Count (150-450) k/uL Neutrophils # (1.3-7.7) k/uL Lymphocytes # (1.0-4.8) k/uL ABG pH 7.28 L (7.35-7.45) ABG pCO2 53 H (35-45) mmHg ABG Total CO2 27 H (19-24) mmol/L Sodium 128 L (137-145) mmol/L Chloride 91 L (98-107) mmol/L BUN 70 H (9-20) mg/dL Creatinine 2.19 H (0.66-1.25) mg/dL Glucose 239 H (74-99) mg/dL POC Glucose (mg/dL) 250 H (70-110) mg/dL Calcium 7.2 L (8.4-10.2) mg/dL 03/26/23 Range/Units 11:51 WBC (3.8-10.6) k/uL RBC (4.30-5.90) m/uL Hgb (13.0-17.5) gm/dL Hct (39.0-53.0) % RDW (11.5-15.5) % Plt Count (150-450) k/uL Neutrophils # (1.3-7.7) k/uL Lymphocytes # (1.0-4.8) k/uL ABG pH (7.35-7.45) ABG pCO2 (35-45) mmHg ABG Total CO2 (19-24) mmol/L Sodium (137-145) mmol/L Chloride (98-107) mmol/L BUN (9-20) mg/dL Creatinine (0.66-1.25) mg/dL Glucose (74-99) mg/dL POC Glucose (mg/dL) 231 H (70-110) mg/dL Calcium (8.4-10.2) mg/dL Assessment and Plan Assessment: Impression: Acute hypoxic respiratory failure, suspect healthcare acquired pneumonia, noncardiogenic pulmonary edema, ARDS. Acute on chronic kidney disease, patient is on hemodialysis, no major improvem ent noted on chest x-ray in spite of dialysis Upper GI bleeding with episodic drop in hemoglobin, requiring at times blood transfusion, patient received a total of 2 units of packed RBCs since admission Bilateral lower extremity edema Acute non-ST elevation myocardial infarction Anemia of chronic disease and possible some component of new onset GI bleeding History of stage III chronic kidney disease Type 2 diabetes with diabetic nephropathy Benign essential hypertension Hypothyroidism History of BPH Recommendation: Continue ventilatory support, Continue pressure control mode of mechanical ventilation. Rate was increased up to 3 2 May have to stop hemodialysis in the family is seriously considering comfort care measures Continue antibiotics empirically Continue enteral feeding/ nutritional support Continue to monitor urine output Continue to monitor renal functioning Patient remains critically ill Family already expressed that they would not want him to have tracheostomy or PEG tube placement Proceed to comfort care measures once the family makes a final decision. Remains critically ill Critical care time is over 30 minutes Family is updated again today on his condition Time with Patient: Greater than 30
[2023-03-26] MEDS: LORazepam 2 MG/ML INJ IV PRN (13:33)
[2023-03-26 15:11] VITALS: PULSE 140; RESP 32
[2023-03-26] MEDS ORDERED: MORPHINE SULFATE 4 MG/ML SYRINGE IV PRN (15:23)
[2023-03-26] MEDS ORDERED: MORPHINE SULFATE 2 MG/ML SYRINGE IV PRN (15:23)
[2023-03-26] MEDS ORDERED: MORPHINE SULFATE 4 MG/ML SYRINGE IVP ONE (15:23)
[2023-03-26] MEDS ORDERED: ATROPINE OPHTH SOLN 1% 5ML BTL SUBLINGUAL PRN (15:23)
[2023-03-26] MEDS ORDERED: SCOPOLAMINE 1 MG/72 HR PATCH TRANSDERM SCH (15:30)
[2023-03-26] MEDS ORDERED: LORazepam 1 MG TAB PO ONE (15:30)
[2023-03-26] MEDS ORDERED: LORazepam 2 MG/ML INJ IV STA (15:32)
[2023-03-26] MEDS: MORPHINE SULFATE (100 MG/2 ML) 100 MG in SODIUM CHLORIDE 0.9% 100 ML IV SCH ×2 (15:48→21:24)
--- NOTE | 2023-03-26 16:43 | P.PN ---
Subjective Progress Note Date: 03/26/23 Principal diagnosis: Sepsis/pneumonia Patient is a 77-year-old male with a past medical his significant for diabetes mellitus hypertension hyperlipidemia prostate disorder presenting to the hospital on 03/07/2023 for evaluation of increasing shortness of breath weakness and mental status changes, subsequently did have worsening of his respiratory status requiring transfer the ICU ended up getting intubated, the patient is status post bronchoscopy completed on 03/15/2023, patient did got dialysis catheter on 03/20/2023 through and got dialyzed On today's evaluation that is 03/26/2023, the patient continues to be afebrile, the patient remains to be on the vent and FiO2 is stable at 55% , patient is hemodynamically stable not requiring any pressor support, no significant purulent secretions through the ET or any diarrhea reported by the nursing staff Patient white count is slightly up to 19.7, creatinine is 2.19 Objective - Vital Signs Vital signs: Vital Signs Temp 97.4 F L 03/26/23 08:00 Pulse 141 H 03/26/23 11:00 Resp 25 H 03/26/23 11:00 BP 146/60 03/24/23 11:41 Pulse Ox 91 L 03/26/23 11:00 FiO2 55 03/26/23 08:27 Intake & Output 03/25/23 03/26/23 03/26/23 18:59 06:59 18:59 Intake Total 517.721 5279.171 231.977 Output Total 485 460 97 Balance 216.882 585.171 134.977 Weight 108.6 kg 111.5 kg Intake: IV 156 143 43 NS TKO 120 110 40 Pressure bag 36 33 3 Intake, IV Titration 341.882 591.171 154.977 Amount propofoL 1,000 mg In 341.882 591.171 154.977 Empty Bag 1 bag @ 15 MCG/ KG/MIN 9.945 mls/hr IV . Q10H4M [facility] Rx#:[id number] Tube Feeding 204 221 34 Other 90 Output: Urine 485 460 97 Other: Voiding Method Indwelling Catheter Indwelling Catheter Indwelling Catheter ABP, PAP, CO, CI - Last Documented Arterial Blood Pressure 127/54 - Exam GENERAL DESCRIPTION: An elderly male intubated on the vent in no distress RESPIRATORY SYSTEM: Unlabored breathing , decreased breath sounds at bases HEART: S1 S2 regular rate and rhythm , ABDOMEN: Soft , no tenderness EXTREMITIES: No edema feet - Labs CBC & Chem 7: 03/26/23 05:10 03/26/23 05:10 Labs: Abnormal Lab Results - Last 24 Hours (Table) 03/25/23 03/25/23 03/25/23 Range/Units 13:01 18:09 23:45 WBC (3.8-10.6) k/uL RBC (4.30-5.90) m/uL Hgb (13.0-17.5) gm/dL Hct (39.0-53.0) % RDW (11.5-15.5) % Plt Count (150-450) k/uL Neutrophils # (1.3-7.7) k/uL Lymphocytes # (1.0-4.8) k/uL ABG pH (7.35-7.45) ABG pCO2 (35-45) mmHg ABG Total CO2 (19-24) mmol/L Sodium (137-145) mmol/L Chloride (98-107) mmol/L BUN (9-20) mg/dL Creatinine (0.66-1.25) mg/dL Glucose (74-99) mg/dL POC Glucose (mg/dL) 225 H 273 H 264 H (70-110) mg/dL Calcium (8.4-10.2) mg/dL 03/26/23 03/26/23 03/26/23 Range/Units 05:10 05:10 05:12 WBC 19.7 H (3.8-10.6) k/uL RBC 2.43 L (4.30-5.90) m/uL Hgb 7.4 L (13.0-17.5) gm/dL Hct 21.9 L (39.0-53.0) % RDW 17.0 H (11.5-15.5) % Plt Count 118 L (150-450) k/uL Neutrophils # 18.6 H (1.3-7.7) k/uL Lymphocytes # 0.6 L (1.0-4.8) k/uL ABG pH (7.35-7.45) ABG pCO2 (35-45) mmHg ABG Total CO2 (19-24) mmol/L Sodium 128 L (137-145) mmol/L Chloride 91 L (98-107) mmol/L BUN 70 H (9-20) mg/dL Creatinine 2.19 H (0.66-1.25) mg/dL Glucose 239 H (74-99) mg/dL POC Glucose (mg/dL) 250 H (70-110) mg/dL Calcium 7.2 L (8.4-10.2) mg/dL 03/26/23 Range/Units 06:16 WBC (3.8-10.6) k/uL RBC (4.30-5.90) m/uL Hgb (13.0-17.5) gm/dL Hct (39.0-53.0) % RDW (11.5-15.5) % Plt Count (150-450) k/uL Neutrophils # (1.3-7.7) k/uL Lymphocytes # (1.0-4.8) k/uL ABG pH 7.28 L (7.35-7.45) ABG pCO2 53 H (35-45) mmHg ABG Total CO2 27 H (19-24) mmol/L Sodium (137-145) mmol/L Chloride (98-107) mmol/L BUN (9-20) mg/dL Creatinine (0.66-1.25) mg/dL Glucose (74-99) mg/dL POC Glucose (mg/dL) (70-110) mg/dL Calcium (8.4-10.2) mg/dL Assessment and Plan (1) Pneumonia Current Visit: No Status: Acute Code(s): J18.9 - PNEUMONIA, UNSPECIFIED ORGANISM SNOMED Code(s): 223864981 Plan: 1patient with acute respiratory failure which is multifactorial in this patient with initial presentation of sepsis possible pneumonia and also a component of fluid overload in this patient with evidence of renal failure 2-patient remains to be febrile and the patient white count is slightly up today and will monitor closely 3-patient to continue with Zosyn with overall poor prognosis and possible plan for hospice , will hold on adding any further workup at this point, antibiotics can be safely discontinued once switched to hospice Dictation was produced using [employer] dictation software. please excuse any grammatical, word or spelling errors. Time with Patient: Less than 30
--- NOTE | 2023-03-26 17:45 | P.PN ---
Subjective Progress Note Date: 03/26/23 77 years old male with past medical history of Diabetes Mellitus, Hyperlipidemia, Hypertension, Osteoarthritis, cervical spine decompression and fusion surgery. PCP is Dr. Blount patient was sent from our with for shortness of breathwith hypoxia and saturating 81. 82% on 4 L oxygen via nasal cannula. Right upper extremity PICC line patient last time he was discharged on daptomycin every 48 hours 14 days.patient finished treatment and his lower extremity cellulitis is improving patient currently on BiPAP, with oxygen saturation 97%. Afebrile. Labs showed leukocytosis of 14,000, hemoglobin 7.5 creatinine is elevated at 2.8 which is at baseline of 2.2-3.0 Troponin is elevated at 0.15, 0.13.proBNP 4460. TSH is low at 0.09 Urine analysis is not suspicious for infection. chest x-ray: confluent bilateral Multifocal airspace opacities patient is a started on ceftriaxone, Zithromax IV Lasix 03/13/2023 Patient is seen and evaluated in room at bedside; remains on BiPAP; patient went into respiratory distress during the night; stat ABGs were completed which revealed a pO2 of 103 and pCO2 of 41 - Patient is currently on BiPAP with FiO2 of 100% -- Vital signs are reviewed and remained stable Blood work reveals a WBC of 16.8, hemoglobin of 7, hematocrit 22.5 and platelet count of 182, sodium 154 cultures and 2.1, BUN/creatinine of 104/3.15 and blood glucose of 240 --Chest x-ray reveals diffuse bilateral infiltrates possibly diffuse pneumonia versus interstitial edema or acute respiratory distress syndrome - Patient remains on IV heparin for possible PE; V/Q scan cannot be completed due to unstable respiratory status -- Patient has been placed on IV fluids in form of D5 water for hypernatremia; we will monitor sodium levels closely Prognosis remains guarded 03/14/2023 Patient is seen and evaluated in room at bedside; transferred to ICU; patient had been agitated and restless and noncompliant with BiPAP resulting in worsening respiratory status -- Patient has been placed on Precedex and remains on BiPAP with settings of 16/8 and 80% Vital signs are reviewed with temperature of 98.4, pulse 59, respirations 17 and blood pressure of 164/68 White count is 22.4, hemoglobin 7.4, hematocrit 24.5, with a normal platelet count. Sodium 157, potassium 2.8, chlorides 119, CO2 26, BUN 109, and creatinine 2.73. Chest x-ray continues to show bilateral airspace disease, which may be on the basis of fluid, pneumonia, or acute respiratory distress syndrome. The patient's currently on IV heparin empirically. The patient's also receiving Zosyn. Heparin can be discontinued once PE is ruled out 03/26/2023 - the patient remains in ICU afebrile, the patient remains to be on the vent and FiO2 is stable at 55% -- patient is hemodynamically stable not requiring any pressor support, no significant purulent secretions through the ET or any diarrhea reported by the nursing staff -Chest x-ray continues to show bilateral interstitial infiltrates/edema/ARDS- type of picture. Minimal change noted compared to the one yesterday but remind you the patient is now on a higher PEEP. WBC count is 19.7 hemoglobin is 7.4 hematocrit is 21.9 basic metabolic profile is relatively normal with a sodium of 128 potassium 4.1 chloride 91 BUN is 70 creatinine 2.1 -- Family is considering comfort care measures Objective - Vital Signs Vital signs: Vital Signs Temp 97.4 F L 03/26/23 08:00 Pulse 141 H 03/26/23 11:00 Resp 25 H 03/26/23 11:00 BP 146/60 03/24/23 11:41 Pulse Ox 91 L 03/26/23 11:00 FiO2 55 03/26/23 08:27 Intake & Output 03/25/23 03/26/23 03/26/23 18:59 06:59 18:59 Intake Total 300.709 4573.171 331.427 Output Total 485 460 97 Balance 216.882 585.171 234.427 Weight 108.6 kg 111.5 kg Intake: IV 156 143 43 NS TKO 120 110 40 Pressure bag 36 33 3 Intake, IV Titration 341.882 591.171 254.427 Amount propofoL 1,000 mg In 341.882 591.171 254.427 Empty Bag 1 bag @ 15 MCG/ KG/MIN 9.945 mls/hr IV . Q10H4M [facility] Rx#:[id number] Tube Feeding 204 221 34 Other 90 Output: Urine 485 460 97 Other: Voiding Method Indwelling Catheter Indwelling Catheter Indwelling Catheter ABP, PAP, CO, CI - Last Documented Arterial Blood Pressure 127/54 - Exam Physical Exam: Revealed 77-year-old male intubated and mechanically ventilated sedated on propofol in no distress propofol is at 75 mcg/kg/m. Head: Atraumatic, normocephalic. Orogastric tube is intact, endotracheal tube is intact HEENT:[Neck is supple.] [No neck masses.] [No thyromegaly.] [No JVD.] Chest: Crackles at the bases persist, breath sounds are clear anteriorly Cardiac Exam: [Normal S1 and S2, no S3 gallop, no murmur.] Abdomen: [Soft, nontender, no megaly, no rebound, no guarding, normal bowel sounds.] Extremities: [No clubbing, 1 + bipedal edema diminished distal pulses Neurological Exam: Remains on sedation - Labs CBC & Chem 7: 03/26/23 05:10 03/26/23 05:10 Labs: Abnormal Lab Results - Last 24 Hours (Table) 03/25/23 03/25/23 03/25/23 Range/Units 13:01 18:09 23:45 WBC (3.8-10.6) k/uL RBC (4.30-5.90) m/uL Hgb (13.0-17.5) gm/dL Hct (39.0-53.0) % RDW (11.5-15.5) % Plt Count (150-450) k/uL Neutrophils # (1.3-7.7) k/uL Lymphocytes # (1.0-4.8) k/uL ABG pH (7.35-7.45) ABG pCO2 (35-45) mmHg ABG Total CO2 (19-24) mmol/L Sodium (137-145) mmol/L Chloride (98-107) mmol/L BUN (9-20) mg/dL Creatinine (0.66-1.25) mg/dL Glucose (74-99) mg/dL POC Glucose (mg/dL) 225 H 273 H 264 H (70-110) mg/dL Calcium (8.4-10.2) mg/dL 03/26/23 03/26/23 03/26/23 Range/Units 05:10 05:10 05:12 WBC 19.7 H (3.8-10.6) k/uL RBC 2.43 L (4.30-5.90) m/uL Hgb 7.4 L (13.0-17.5) gm/dL Hct 21.9 L (39.0-53.0) % RDW 17.0 H (11.5-15.5) % Plt Count 118 L (150-450) k/uL Neutrophils # 18.6 H (1.3-7.7) k/uL Lymphocytes # 0.6 L (1.0-4.8) k/uL ABG pH (7.35-7.45) ABG pCO2 (35-45) mmHg ABG Total CO2 (19-24) mmol/L Sodium 128 L (137-145) mmol/L Chloride 91 L (98-107) mmol/L BUN 70 H (9-20) mg/dL Creatinine 2.19 H (0.66-1.25) mg/dL Glucose 239 H (74-99) mg/dL POC Glucose (mg/dL) 250 H (70-110) mg/dL Calcium 7.2 L (8.4-10.2) mg/dL 03/26/23 03/26/23 Range/Units 06:16 11:51 WBC (3.8-10.6) k/uL RBC (4.30-5.90) m/uL Hgb (13.0-17.5) gm/dL Hct (39.0-53.0) % RDW (11.5-15.5) % Plt Count (150-450) k/uL Neutrophils # (1.3-7.7) k/uL Lymphocytes # (1.0-4.8) k/uL ABG pH 7.28 L (7.35-7.45) ABG pCO2 53 H (35-45) mmHg ABG Total CO2 27 H (19-24) mmol/L Sodium (137-145) mmol/L Chloride (98-107) mmol/L BUN (9-20) mg/dL Creatinine (0.66-1.25) mg/dL Glucose (74-99) mg/dL POC Glucose (mg/dL) 231 H (70-110) mg/dL Calcium (8.4-10.2) mg/dL Assessment and Plan Assessment: bilateral airspace opacities suspicious for bilateral pneumonia, Versus pulmonary edema bilateral leg edema with stasis dermatitis multifactorial also due to heart failure normochromic, normocytic anemia chronic kidney disease stage III Diabetes mellitus Hypertension Hyperlipidemia History of osteoarthritis Hypothyroidism with very low TSH upper extremity tremor on mirapex restless leg syndrom Plan: continue with antibiotic ceftriaxone and Zithromax continue with IV Lasix Change his oral medication to IV Follow-up Culture results Bronchodilator and pulmonary consult cardiology consult patient on levothyroxine at 175 g. In view of low TSH hold levothyroxine today and to start 150 g tomorrow and recheck thyroid function test in 1-2 months Labs and medication were reviewed.. Continue same treatment. Continue with symptomatic treatment. Resume home medication. Monitor lytes and vitals. DVT and GI prophylaxis. Further recommendations depends on the clinical course of the patient DVT prophylaxis: Subcutaneous heparin GI Prophylaxis: Pepcid Prognosis is guarded
--- NOTE | 2023-03-26 18:46 | P.PN ---
Subjective Progress Note Date: 03/26/23 Patient was made comfort measures only Cardiology team has sign off. Please reconsult us in case of any questions. Objective - Vital Signs Vital signs: Vital Signs Temp 97.4 F L 03/26/23 08:00 Pulse 140 H 03/26/23 15:00 Resp 32 H 03/26/23 15:00 BP 146/60 03/24/23 11:41 Pulse Ox 92 L 03/26/23 15:00 FiO2 55 03/26/23 15:00 Intake & Output 03/25/23 03/26/23 03/26/23 18:59 06:59 18:59 Intake Total 385.922 6966.171 744.380 Output Total 485 460 146 Balance 216.882 585.171 598.380 Weight 108.6 kg 111.5 kg Intake: IV 156 143 82 NS TKO 120 110 70 Pressure bag 36 33 12 Intake, IV Titration 341.882 591.171 449.380 Amount Morphine Sulfate (100 mg/ 0.255 2 ml) 100 mg In Sodium Chloride 0.9% 100 ml @ 1 MG/HR 1.02 mls/hr IV . Q24H [facility] Rx#:[id number] propofoL 1,000 mg In 341.882 591.171 449.125 Empty Bag 1 bag @ 15 MCG/ KG/MIN 9.945 mls/hr IV . Q10H4M [facility] Rx#:[id number] Tube Feeding 204 221 153 Other 90 60 Output: Urine 485 460 146 Other: Voiding Method Indwelling Catheter Indwelling Catheter Indwelling Catheter ABP, PAP, CO, CI - Last Documented Arterial Blood Pressure 128/53 - Labs CBC & Chem 7: 03/26/23 05:10 03/26/23 05:10 Labs: Abnormal Lab Results - Last 24 Hours (Table) 03/25/23 03/26/23 03/26/23 Range/Units 23:45 05:10 05:10 WBC 19.7 H (3.8-10.6) k/uL RBC 2.43 L (4.30-5.90) m/uL Hgb 7.4 L (13.0-17.5) gm/dL Hct 21.9 L (39.0-53.0) % RDW 17.0 H (11.5-15.5) % Plt Count 118 L (150-450) k/uL Neutrophils # 18.6 H (1.3-7.7) k/uL Lymphocytes # 0.6 L (1.0-4.8) k/uL ABG pH (7.35-7.45) ABG pCO2 (35-45) mmHg ABG Total CO2 (19-24) mmol/L Sodium 128 L (137-145) mmol/L Chloride 91 L (98-107) mmol/L BUN 70 H (9-20) mg/dL Creatinine 2.19 H (0.66-1.25) mg/dL Glucose 239 H (74-99) mg/dL POC Glucose (mg/dL) 264 H (70-110) mg/dL Calcium 7.2 L (8.4-10.2) mg/dL 03/26/23 03/26/23 03/26/23 Range/Units 05:12 06:16 11:51 WBC (3.8-10.6) k/uL RBC (4.30-5.90) m/uL Hgb (13.0-17.5) gm/dL Hct (39.0-53.0) % RDW (11.5-15.5) % Plt Count (150-450) k/uL Neutrophils # (1.3-7.7) k/uL Lymphocytes # (1.0-4.8) k/uL ABG pH 7.28 L (7.35-7.45) ABG pCO2 53 H (35-45) mmHg ABG Total CO2 27 H (19-24) mmol/L Sodium (137-145) mmol/L Chloride (98-107) mmol/L BUN (9-20) mg/dL Creatinine (0.66-1.25) mg/dL Glucose (74-99) mg/dL POC Glucose (mg/dL) 250 H 231 H (70-110) mg/dL Calcium (8.4-10.2) mg/dL Microbiology - Last 24 Hours (Table) 03/15/23 16:00 Fungal Culture - Preliminary Bronchial Washings - Random
--- NOTE | 2023-03-29 10:22 | CDI ---
Documentation Clarification Form Date: 03/29/2023 10:05:04 AM From: Caryn Mix Phone: Admit Date: 03/07/2023 11:36:00 PM Patient Name: Peyman Carter Visit Number: [id number] Discharge Date: 03/27/2023 01:35:00 AM ATTENTION: The Clinical Documentation Specialists (CDI) and [facility] Coding Staff appreciate your assistance in clarifying documentation. Please respond to the clarification below the line at the bottom and electronically sign. The CDI & [facility] Coding staff will review the response and follow-up if needed. Please note: Queries are made part of the Legal Health Record. If you have any questions, please contact the author of this message via ITS. Dr. Rafal Cruz Your patient has the documented diagnosis of multiple types of CHF as noted below. Additional information regarding the type and acuity of CHF is requested. Acute Systolic CHF per ED Note Chronic heart failure with preserved ejection fraction per Cardio Consult 03/08 SignificantPHTN andright-sided heart failure per Dr. Wallace Progress Note 03/19 History/Risk Factors: 77yo M, bacterial PNA, noncardiogenicpulmonary edema, ARDS, stasis, CHF, anemia, ATN on CKD, DMII, HTN, HLD, OA, AECOPD, Hypothyroidism, RLS Clinical Indicators: VS/Pulse OX: 90 BNP: 4460 Echocardiogram Results: preserved LV function with severePHTN with a EF around 65% and the pulmonary arterypressureof around 56 mmHg,no significantvalvularabnormalities Chest X Ray: Lungs/Pleura: Multifocal airspaceopacities. No evidence ofpneumothoraxor pleural effusion. Pulmonary vascularity: Unremarkable. Heart/mediastinum: Cardiomediastinal silhouette is unremarkable. Musculoskeletal: No acute osseous pathology. Treatment: patient was started onhemodialysis. He is receiving his second session. Nomajor improvement in hischest x-rayfindings. Nevertheless, the oxygenationis improved and will continue to follow. In your professional opinion, can you please clarify the type and acuity of CHF if known? [ ] Acute Systolic Heart Failure (reduced EF) [ ] Chronic Systolic Heart Failure (reduced EF) [ ] Acute on Chronic Systolic Heart Failure (reduced EF) [ ] Acute Diastolic Heart Failure (preserved EF) [ y ] Chronic Diastolic Heart Failure (preserved EF) [ ] Acute on Chronic Diastolic Heart Failure (preserved EF) [ ] Acute Systolic & Diastolic Heart Failure [ ] Chronic Systolic & Diastolic Heart Failure [ ] Acute on Chronic Heart Failure Systolic & Diastolic Heart Failure [ ] Other, please specify [ ] Unable to determine (Template Last Revised: July 2020) MTDD
--- NOTE | 2023-03-29 10:34 | CDI ---
Documentation Clarification Form Date: 03/29/2023 10:23:00 AM From: Caryn Mix Phone: Admit Date: 03/07/2023 11:36:00 PM Patient Name: Peyman Carter Visit Number: [id number] Discharge Date: 03/27/2023 01:35:00 AM ATTENTION: The Clinical Documentation Specialists (CDI) and [facility] Coding Staff appreciate your assistance in clarifying documentation. Please respond to the clarification below the line at the bottom and electronically sign. The CDI & [facility] Coding staff will review the response and follow-up if needed. Please note: Queries are made part of the Legal Health Record. If you have any questions, please contact the author of this message via ITS. Dr. Doc Wallace Your patient has significantpulmonary hypertension andright-sided heart failure per your 03/19-03/21 Progress Notes. Based on this information and the findings below, is there an additional diagnosis that is clinically appropriate for this patient? Patient history/risk factors: 77yo M, bacterial PNA, noncardiogenic pulmonary edema, ARDS, stasis, CHF, anemia, ATN on CKD, DMII, HTN, HLD, OA, AECOPD, Hypothyroidism, RLS Clinical Indicators: BNP: 4460 Cardiac ECHO: preserved LV function with severePHTN with an EF around 65% and the PApressureof around 56 mmHg,no significantvalvularabnormalities Treatment: Condition is critically ill continue to follow and make further recommendations based on his progress. Is there an additional diagnosis that is clinically appropriate for this patient? Please select all that apply, if any: [ ] Pulmonary hypertension due to left heart disease [ x ] Pulmonary hypertension due to right heart disease [ ] Acute Pulmonary Edema not related to CHF [ ] No additional diagnosis/Not clinically significant [ ] Unable to determine [ ] Other, please specify (Template Last Revised: September 2022) MTDD
--- NOTE | 2023-04-15 11:49 | P.DS ---
Providers Date of admission: 03/07/23 23:36 Expected date of discharge: 03/27/23 Attending physician: Rafal Cruz MD Consults: 03/07/23 23:36 Consult Physician Routine Consulting Provider: Ry Wheeler Consult Reason/Comments: elevTrop Do you want consulting provider notified?: Yes Consult Physician Routine Consulting Provider: Doc Wallace Consult Reason/Comments: respFail Do you want consulting provider notified?: Yes 03/12/23 10:28 Consult Physician Routine Consulting Provider: Kimi Lucero Consult Reason/Comments: worsening renal failure/ hypernatremia Do you want consulting provider notified?: Yes 03/12/23 11:17 Consult Physician Urgent Consulting Provider: Herbie Melchor Consult Reason/Comments: New A-Fib RVR- high TSH Do you want consulting provider notified?: Yes 03/15/23 09:25 Consult Physician Routine Consulting Provider: Nellie Patiño Consult Reason/Comments: Pneumonia, sepsis Do you want consulting provider notified?: Yes 03/20/23 09:35 Consult Physician Urgent Consulting Provider: Willie Trimble Consult Reason/Comments: gi bleed, surgical consult Do you want consulting provider notified?: Yes 03/20/23 09:47 Consult Physician Urgent Consulting Provider: Vazquez Washburn Consult Reason/Comments: temp dialysis cath placement Do you want consulting provider notified?: Already Contacted 03/22/23 12:13 Consult Physician Routine Consulting Provider: Conner Moreno Consult Reason/Comments: GIB Do you want consulting provider notified?: Already Contacted Primary care physician: [facility] Course: 77 years old male with past medical history of Diabetes Mellitus, Hyperlipidemia, Hypertension, Osteoarthritis, cervical spine decompression and fusion surgery. PCP is Dr. Blount patient was sent from our with for shortness of breathwith hypoxia and saturating 81. 82% on 4 L oxygen via nasal cannula. Right upper extremity PICC line patient last time he was discharged on daptomycin every 48 hours 14 days .patient finished treatment and his lower extremity cellulitis is improving patient currently on BiPAP, with oxygen saturation 97%. Afebrile. Labs showed leukocytosis of 14,000, hemoglobin 7.5 creatinine is elevated at 2.8 which is at baseline of 2.2-3.0 Troponin is elevated at 0.15, 0.13.proBNP 4460. TSH is low at 0.09 Urine analysis is not suspicious for infection. chest x-ray: confluent bilateral Multifocal airspace opacities patient is a started on ceftriaxone, Zithromax IV Lasix 03/13/2023 Patient is seen and evaluated in room at bedside; remains on BiPAP; patient went into respiratory distress during the night; stat ABGs were completed which revealed a pO2 of 103 and pCO2 of 41 - Patient is currently on BiPAP with FiO2 of 100% -- Vital signs are reviewed and remained stable Blood work reveals a WBC of 16.8, hemoglobin of 7, hematocrit 22.5 and platelet count of 182, sodium 154 cultures and 2.1, BUN/creatinine of 104/3.15 and blood glucose of 240 --Chest x-ray reveals diffuse bilateral infiltrates possibly diffuse pneumonia versus interstitial edema or acute respiratory distress syndrome - Patient remains on IV heparin for possible PE; V/Q scan cannot be completed due to unstable respiratory status -- Patient has been placed on IV fluids in form of D5 water for hypernatremia; we will monitor sodium levels closely Prognosis remains guarded 03/14/2023 Patient is seen and evaluated in room at bedside; transferred to ICU; patient had been agitated and restless and noncompliant with BiPAP resulting in worsening respiratory status -- Patient has been placed on Precedex and remains on BiPAP with settings of 16/8 and 80% Vital signs are reviewed with temperature of 98.4, pulse 59, respirations 17 and blood pressure of 164/68 White count is 22.4, hemoglobin 7.4, hematocrit 24.5, with a normal platelet count. Sodium 157, potassium 2.8, chlorides 119, CO2 26, BUN 109, and creatinine 2.73. Chest x-ray continues to show bilateral airspace disease, which may be on the basis of fluid, pneumonia, or acute respiratory distress syndrome. The patient's currently on IV heparin empirically. The patient's also receiving Zosyn. Heparin can be discontinued once PE is ruled out 03/15. Patient seen and examined. Labs done this morning showed WBC 18.9, hemoglobin 7.2, platelet count 179, sodium 156, potassium 2.9, BUN 97, creatinine 2.86. Patient was intubated overnight, currently on mechanical ventilation. Currently on propofol. 03/16. Patient seen and examined. Patient continues to be intubated. Hemoglobin this morning is 6.8. Patient getting 1 unit of packed red blood cell. Blood sugars were elevated, currently on insulin drip 03/17/2023 Patient is currently intubated and on mechanical ventilator, assist control. Patient is also sedated with propofol. Chest x-ray today showed similar bilateral airspace disease with lower lung predominance. Patient had bronchoscopy done on 03/15/2023 showed no growth so far. Patient is being continued on Zosyn. Patient is on IV hydration. Patient is also on insulin drip for better blood sugar control. Laboratory data showed sodium 143 potassium 4.2 chloride 109 bicarb is 23 BUN 111 and creatinine 3.26 blood sugar 120, WBC 17.7 hemoglobin 7.5 and platelets 138. 03/18/2023 Patient remained on mechanical ventilator. Assist-control and PEEP increased to 12 with FiO2 50%. Chest x-ray showed stable lower lobe pulmonary infiltrates. ABG showed pH of 7.34, PCO2 41 and PO2 112. BAL cultures have been negative. Patient is being current Zosyn. Laboratory data showed WBC 16.8 hemoglobin 7.5 and platelets 112 BUN 119 and creatinine 3.5 bicarb is 20 blood sugar is 129. Calcium 7.2. IV fluids down to KVO. Pulmonary, nephrology is on board. Dr Cruz Assumed care 03/19/23: Patient seen and evaluated and bedside patient remains intubated, sedated. On mechanical ventilator. Blood work reviewed, noted to have anemia, 1 unit of packed RBC given 03/20/2023: Patient seen and evaluated, and remains intubated, on mechanical ventilator, on propofol. Blood work reviewed hemoglobin remained stable, potassium of 25.5, nephrology following plan for hemodialysis today axis already in place 03/21/23: Patient remains intubated, sedated with propofol. Hemodialysis access in groin. Second session of hemodialysis today plan to remove 2 L, first session of hemodialysis was 03/20 and 2 L were removed. Patient followed by nephrology, critical care, cardiology. Continue IV antibiotic with Zosyn. Continue to monitor H&H 03/22/23: Patient seen and evaluated bedside, patient intubated, sedated with propofol. Patient on IV Cardizem for paroxysmal tachycardia. Underwent hemodialysis third session today. Output from oral gastric tube is decreased 03/23/23: Patient seen and evaluated bedside, patient continued to remain intubated and sedated with propofol. Order to have paroxysmal tachycardia. Serum chemistry pending 03/24. Patient seen and examined. Continues to be intubated. Currently schedu led for dialysis today 03/25/23: Patient seen and evaluated in ICU. Remains intubated and sedated. Patient remains on Cardizem drip, remains uncomfortable. Continue nutritional support. Prognosis remains guarded Dr Diaz assumed care : 03/26/2023 - the patient remains in ICU afebrile, the patient remains to be on the vent and FiO2 is stable at 55% -- patient is hemodynamically stable not requiring any pressor support, no significant purulent secretions through the ET or any diarrhea reported by the nursing staff -Chest x-ray continues to show bilateral interstitial infiltrates/edema/ARDS- type of picture. Minimal change noted compared to the one yesterday but remind you the patient is now on a higher PEEP. 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 * Diabetes mellitus * Hypertension * Hyperlipidemia * History of osteoarthritis * Hypothyroidism * restless leg syndrome transition to comfort measures, patient Patient Condition at Discharge: Serious Plan - Discharge Summary Discharge Rx Participant: No New Discharge Prescriptions: No Action Finasteride [Proscar] 5 mg PO DAILY@0800 allopurinoL [Zyloprim] 300 mg PO HS Pramipexole [Mirapex] 1 mg PO Q8HR@0600,1400,2200 Aspirin 81 mg PO DAILY@1200 amLODIPine [Norvasc] 5 mg PO BID@0800,1700 Ferrous Sulfate [Iron (65 MG Elemental)] 325 mg PO DAILY@1200 DAPTOmycin [Cubicin] 350 mg IVPB Q48H 14 Days #7 each HYDROcodone/APAP 10-325MG [[place] 10-325] 1 tab PO TID PRN #6 tab PRN Reason: Pain bisacodyL [Dulcolax] 10 mg RECTAL DAILY PRN PRN Reason: Constipation Na Phos,M-B/Na Phos,Di-Ba [Fleet Adult] 133 ml RECTAL DAILY PRN PRN Reason: Constipation Acetaminophen [Tylenol] 650 mg PO Q4H PRN PRN Reason: Fever And/ Or Pain SILVER sulfADIAZINE Cream [Silvadene 1% Cream] 1 applic TOPICAL DAILY Sennosides [Senokot] 8.6 mg PO DAILY@0800 Pregabalin [Lyrica] 150 mg PO Q12HR@0800,2100 Darbepoetin Amrit [Aranesp] 40 mcg SQ FR@1200 Sertraline [Zoloft] 50 mg PO BID@0800,2100 Cholecalciferol [Vitamin D3 (25 Mcg = 1000 Iu)] 25 mcg PO DAILY@1200 hydrALAZINE HCL [Apresoline] 100 mg PO BID@0800,1700 Tamsulosin HCl [Flomax] 0.4 mg PO HS carvediloL [Coreg] 12.5 mg PO BID@0800,1700 Famotidine [Pepcid] 20 mg PO DAILY@0600 Levothyroxine Sodium [Synthroid] 175 mcg PO DAILY@0600 Ipratropium-Albuterol Nebulize [Duoneb 0.5 mg-3 mg/3 ml Soln] 3 ml INHALATION RT-Q6H PRN PRN Reason: Shortness Of Breath Heparin Sodium,Porcine (1 ml) [Heparin Sodium] 5,000 unit SQ Q8HR@0600,1400,2200 Nystatin 100,000 Unit/gm Powd [Mycostatin Powder] 1 applic TOPICAL BID Sodium Bicarbonate Tab 650 mg PO BID@0800,1700 Magnesium Hydroxide [Milk of Magnesia Concentrate] 7,200 mg PO Q2D PRN PRN Reason: 2 days no bm INSULIN ASPART (NovoLOG) [NovoLOG (formulary)] See Protocol SQ ACHS Discharge Medication List Finasteride [Proscar] 5 mg PO DAILY@0800 05/17/17 [History] allopurinoL [Zyloprim] 300 mg PO HS 05/17/17 [History] Pramipexole [Mirapex] 1 mg PO Q8HR@0600,1400,2200 02/17/21 [History] Sertraline [Zoloft] 50 mg PO BID@0800,2100 02/17/21 [History] Aspirin 81 mg PO DAILY@1200 07/09/21 [History] Cholecalciferol [Vitamin D3 (25 Mcg = 1000 Iu)] 25 mcg PO DAILY@1200 02/02/22 [History] amLODIPine [Norvasc] 5 mg PO BID@0800,1700 02/02/22 [History] hydrALAZINE HCL [Apresoline] 100 mg PO BID@0800,1700 02/02/22 [History] Famotidine [Pepcid] 20 mg PO DAILY@0600 02/13/23 [History] Ferrous Sulfate [Iron (65 MG Elemental)] 325 mg PO DAILY@1200 02/13/23 [History] Levothyroxine Sodium [Synthroid] 175 mcg PO DAILY@0600 02/13/23 [History] Tamsulosin HCl [Flomax] 0.4 mg PO HS 02/13/23 [History] carvediloL [Coreg] 12.5 mg PO BID@0800,1700 02/13/23 [History] DAPTOmycin [Cubicin] 350 mg IVPB Q48H 14 Days #7 each 02/22/23 [Rx] HYDROcodone/APAP 10-325MG [[place] 10-325] 1 tab PO TID PRN #6 tab 02/22/23 [Rx] Acetaminophen [Tylenol] 650 mg PO Q4H PRN 03/08/23 [History] Darbepoetin Amrit [Aranesp] 40 mcg SQ FR@1200 03/08/23 [History] Heparin Sodium,Porcine (1 ml) [Heparin Sodium] 5,000 unit SQ Q8HR@0600,1400,2200 03/08/23 [History] INSULIN ASPART (NovoLOG) [NovoLOG (formulary)] See Protocol SQ ACHS 03/08/23 [History] Ipratropium-Albuterol Nebulize [Duoneb 0.5 mg-3 mg/3 ml Soln] 3 ml INHALATION RT-Q6H PRN 03/08/23 [History] Magnesium Hydroxide [Milk of Magnesia Concentrate] 7,200 mg PO Q2D PRN 03/08/23 [History] Na Phos,M-B/Na Phos,Di-Ba [Fleet Adult] 133 ml RECTAL DAILY PRN 03/08/23 [History] Nystatin 100,000 Unit/gm Powd [Mycostatin Powder] 1 applic TOPICAL BID 03/08/23 [History] Pregabalin [Lyrica] 150 mg PO Q12HR@0800,2100 03/08/23 [History] SILVER sulfADIAZINE Cream [Silvadene 1% Cream] 1 applic TOPICAL DAILY 03/08/23 [History] Sennosides [Senokot] 8.6 mg PO DAILY@0800 03/08/23 [History] Sodium Bicarbonate Tab 650 mg PO BID@0800,1700 03/08/23 [History] bisacodyL [Dulcolax] 10 mg RECTAL DAILY PRN 03/08/23 [History] Follow up Appointment(s)/Referral(s): Anthony Montano [REFERRING] - 1-2 days Activity/Diet/Wound Care/Special Instructions: recheck thyroid function test in 1-2 months Discharge Disposition: - Preliminary Cause of Preliminary Cause of : respiratory failure
== END 2023-03-27 01:35 | disposition expired | DRG 870 ==
LOC: EC 20:30 → 3SCARD 23:36 → 2SICU 03-14 03:21
PROVIDERS: ADMIT Internal Medicine; ATTEND Internal Medicine
PROC: 5A09357 Assistance with Respiratory Ventilation, Less than 24 Consecutive Hours, Continuous Positive Airway Pressure (ICD-10-PCS; 2023-03-07)
PROC: 5A1955Z Respiratory Ventilation, Greater than 96 Consecutive Hours (ICD-10-PCS; principal; 2023-03-15)
PROC: 0BH18EZ Insertion of Endotracheal Airway into Trachea, Via Natural or Artificial Opening Endoscopic (ICD-10-PCS; 2023-03-15)
PROC: 03HY32Z Insertion of Monitoring Device into Upper Artery, Percutaneous Approach (ICD-10-PCS; 2023-03-15)
PROC: 4A133B1 Monitoring of Arterial Pressure, Peripheral, Percutaneous Approach (ICD-10-PCS; 2023-03-15)
PROC: 4A133J1 Monitoring of Arterial Pulse, Peripheral, Percutaneous Approach (ICD-10-PCS; 2023-03-15)
PROC: 0B9D8ZX Drainage of Right Middle Lung Lobe, Via Natural or Artificial Opening Endoscopic, Diagnostic (ICD-10-PCS; 2023-03-15)
PROC: 0B9D8ZZ Drainage of Right Middle Lung Lobe, Via Natural or Artificial Opening Endoscopic (ICD-10-PCS; 2023-03-15)
PROC: 3E0G76Z Introduction of Nutritional Substance into Upper GI, Via Natural or Artificial Opening (ICD-10-PCS; 2023-03-15)
PROC: 30233N1 Transfusion of Nonautologous Red Blood Cells into Peripheral Vein, Percutaneous Approach (ICD-10-PCS; 2023-03-16)
PROC: 02HV33Z Insertion of Infusion Device into Superior Vena Cava, Percutaneous Approach (ICD-10-PCS; 2023-03-20)
PROC: 5A1D70Z Performance of Urinary Filtration, Intermittent, Less than 6 Hours Per Day (ICD-10-PCS; 2023-03-20)
PROC: 02HV33Z Insertion of Infusion Device into Superior Vena Cava, Percutaneous Approach (ICD-10-PCS; 2023-03-23)
DX: A41.9 Sepsis, unspecified organism (principal); J80 Acute respiratory distress syndrome; J15.9 Unspecified bacterial pneumonia; N18.6 End stage renal disease; N17.0 Acute kidney failure with tubular necrosis; I21.4 Non-ST elevation (NSTEMI) myocardial infarction; J81.0 Acute pulmonary edema; I13.2 Hypertensive heart and chronic kidney disease with heart failure and with stage 5 chronic kidney disease, or end stage renal disease; R64 Cachexia; J44.1 Chronic obstructive pulmonary disease with (acute) exacerbation; L97.821 Non-pressure chronic ulcer of other part of left lower leg limited to breakdown of skin; I48.92 Unspecified atrial flutter; J44.0 Chronic obstructive pulmonary disease with (acute) lower respiratory infection; I50.32 Chronic diastolic (congestive) heart failure; E87.29 Other acidosis; E87.1 Hypo-osmolality and hyponatremia; D62 Acute posthemorrhagic anemia; K92.1 Melena; L03.116 Cellulitis of left lower limb; L89.152 Pressure ulcer of sacral region, stage 2; I27.29 Other secondary pulmonary hypertension; E11.622 Type 2 diabetes mellitus with other skin ulcer; Z51.5 Encounter for palliative care; Z66 Do not resuscitate; Z20.822 Contact with and (suspected) exposure to COVID-19; Z99.2 Dependence on renal dialysis; Z79.4 Long term (current) use of insulin; E11.40 Type 2 diabetes mellitus with diabetic neuropathy, unspecified; E11.22 Type 2 diabetes mellitus with diabetic chronic kidney disease; E11.65 Type 2 diabetes mellitus with hyperglycemia; D63.1 Anemia in chronic kidney disease; E03.9 Hypothyroidism, unspecified; G25.81 Restless legs syndrome; E66.9 Obesity, unspecified; I48.0 Paroxysmal atrial fibrillation; I47.9 Paroxysmal tachycardia, unspecified; Z91.199 Patient's noncompliance with other medical treatment and regimen due to unspecified reason; E83.39 Other disorders of phosphorus metabolism; I87.2 Venous insufficiency (chronic) (peripheral); E78.5 Hyperlipidemia, unspecified; N40.0 Benign prostatic hyperplasia without lower urinary tract symptoms; I25.10 Atherosclerotic heart disease of native coronary artery without angina pectoris; Y95 Nosocomial condition; I49.3 Ventricular premature depolarization; I49.1 Atrial premature depolarization; M19.90 Unspecified osteoarthritis, unspecified site; R25.1 Tremor, unspecified; E87.6 Hypokalemia; Z68.39 Body mass index [BMI] 39.0-39.9, adult; Z98.1 Arthrodesis status; Z95.828 Presence of other vascular implants and grafts; Z85.828 Personal history of other malignant neoplasm of skin; Z91.81 History of falling; Z87.891 Personal history of nicotine dependence; Z79.899 Other long term (current) drug therapy; Z79.890 Hormone replacement therapy; Z79.82 Long term (current) use of aspirin; Z88.8 Allergy status to other drugs, medicaments and biological substances; Z88.1 Allergy status to other antibiotic agents; Z79.2 Long term (current) use of antibiotics
CPT/HCPCS: 36410; 36415; 36573; 36600; 70450; 71045; 71250; 76770; 76937; 80048; 80053; 81001; 82570; 82607; 82728; 82805; 83036; 83540; 83550; 83605; 83735; 83880; 84100; 84132; 84133; 84145; 84436; 84443; 84484; 85025; 85027; 85045; 85379; 85610; 85730; 86706; 86850; 86900; 86901; 86920; 87040; 87070; 87102; 87116; 87205; 87206; 87340; 87449; 87496; 87498; 87502; 87529; 87634; 87635; 87798; 89050; 90935; 93005; 93306; 93970; 94002; 94003; 94640; 94660; 96365; 96366; 96368; 96372; 96375; 99291